=== PATIENT | female | born 1980 | race Caucasian/White ===

== ENCOUNTER 2023-01-20 13:35 | Emergency (ER) | payer OTHER, SELFPAY ==
--- NOTE | 2023-01-20 | XR_ITS ---
The [address] [address] Patient Name: ESCOBAR NASH MRN: [id number] date: 1980 Sex: F Assigned Patient Location: ER Current Patient Location: ED.MAIN Accession/Order Number: [id number] Exam Date: 01/20/2023 14:22 Report Date: 01/20/2023 14:58 At the request of: BRUCE ALEXANDRA Procedure: XR shoulder RT min 2V PROCEDURE: XR shoulder RT min 2V HISTORY: right shoulder pain ; no known injury COMPARISON: None. FINDINGS: BONES:No fracture, acute abnormality, or significant arthropathy. SOFT TISSUES:No visible soft tissue swelling. EFFUSION:None visible. OTHER: Negative. IMPRESSION: 1. No acute bone abnormality or significant degenerative joint disease. Electronically authenticated by: JEANNE SKINNER Date: 01/20/2023 14:58
[2023-01-20 13:41] VITALS: BP 190/82; PULSE 76; RESP 18; TEMP 36.7; O2SAT 100; BMI 28.0
--- NOTE | 2023-01-20 13:56 | ED.UPPEXIN1 ---
Documented by User: MERLE Astudillo 01/20/23 15:00 HPI - Extremity Injury (Upper) General Chief Complaint: Extremity Injury, Upper Stated Complaint: UPPER EXTREMITY PAIN RIGHT SHOULDER Time Seen by Provider: 01/20/23 13:50 Source: patient Mode of arrival: walk-in Limitations: no limitations History of Present Illness HPI narrative: Patient is a 43-year-old female who presents to the emergency department for the evaluation of right shoulder pain for over a month. Patient denies any mechanism of injury or trauma. She reports pain in the right posterior shoulder with radiation to the right arm. She has had no numbness or tingling. Pain is worse when she is up and walking. She is not concerned for . She took ibuprofen this morning without improvement. She states she has a doctor's appointment tomorrow but the shoulder was too bothersome today to be able to make that appointment. Related Data Previous Rx's Medication Instructions Recorded methocarbamol 750 mg tablet 750 mg PO TID #20 tabs 01/20/23 methylprednisolone 4 mg tablets in 4 mg PO DAILY #21 ea 01/20/23 a dose pack (Medrol (Paul)) naproxen sodium 550 mg tablet 550 mg PO BID PRN pain #10 tabs 01/20/23 Allergies Allergy/AdvReac Type Severity Reaction Status Date / Time penicillin G AdvReac Intermediate Verified 01/20/23 13:41 Review of Systems ROS Constitutional Denies: fever or chills Ears, nose, mouth, and throat Denies: neck pain Cardiovascular Denies: chest pain Respiratory Denies: shortness of breath or cough Gastrointestinal Denies: nausea or vomiting Musculoskeletal Denies: back pain or neck pain Integumentary/Breast Denies: rash Exam Narrative Exam Narrative: Gen.: Awake, alert, in no distress Head: Normocephalic, atraumatic ENT: Moist mucous membranes Respiratory: No respiratory distress Extremities: Moves extremities equally, no injuries noted. Minimal tenderness over the right scapula, pain with movement of the right arm. Normal electrical calibrator strength in the right hand. Normal biceps tendon strength of the right elbow with no bony point tenderness of the right shoulder, right elbow or forearm. Psych: Normal mood and affect Neuro: No focal neuro deficit Skin: Warm, dry, intact Constitutional Vital Signs - 24 hr 01/20/23 13:41 Temperature 98.1 F Pulse Rate [Monitor] 76 Respiratory Rate 18 Blood Pressure [Left Arm] 190/82 H Pulse Oximetry 100 Oxygen Delivery Method Room Air Course Vital Signs Vital signs: Vital Signs Temperature 98.1 F 01/20/23 13:41 Pulse Rate 76 01/20/23 13:41 Respiratory Rate 18 01/20/23 13:41 Blood Pressure 190/82 H 01/20/23 13:41 Pulse Oximetry 100 01/20/23 13:41 Oxygen Delivery Method Room Air 01/20/23 13:41 Temperature 98.1 F 01/20/23 13:41 Pulse Rate 76 01/20/23 13:41 Respiratory Rate 18 01/20/23 13:41 Blood Pressure 190/82 H 01/20/23 13:41 Pulse Oximetry 100 01/20/23 13:41 Oxygen Delivery Method Room Air 01/20/23 13:41 MDM - Extremity Injury (Upper) MDM Narrative Medical decision making narrative: X-rays of the right shoulder are unremarkable, exam and history are consistent with muscle strain over the rotator cuff versus glenohumeral joint. Patient will be treated with Medrol Dosepak, NSAIDs and muscle relaxants for home. She is encouraged to keep her appointment tomorrow with her physician as scheduled for further testing is indicated. Rest, ice, gentle stretching. Return to the Emergency Room if symptoms change or worsen Medical Records Attestation: I reviewed the patient's medical records. Imaging Data X-ray shoulder: Attestation: I personally reviewed and interpreted this imaging study as follows: (Three view right shoulder: No fracture, dislocation, soft tissue abnormality. Imaging reviewed by attending physician) Discharge Plan Discharge Chief Complaint: Extremity Injury, Upper Clinical Impression: Acute shoulder pain Patient Disposition: Home, Self-Care Time of Disposition Decision: 14:55 Condition: Good Prescriptions / Home Meds: New methylprednisolone [Medrol (Paul)] 4 mg tablets,dose pack 4 mg PO DAILY Qty: 21 0RF methocarbamol 750 mg tablet 750 mg PO TID Qty: 20 0RF naproxen sodium 550 mg tablet 550 mg PO BID PRN (Reason: pain) Qty: 10 0RF Instructions: Shoulder Pain (ED) Stand Alone Forms: Portal Instructions Referrals: Gentry Wolf MD [Primary Care Provider] - 01/21/23 (As scheduled) Discharge Date/Time: 01/20/23 15:04 Documented by User: Nicholas May 01/20/23 15:18 HPI - Extremity Injury (Upper) General Chief Complaint: Extremity Injury, Upper Stated Complaint: UPPER EXTREMITY PAIN RIGHT SHOULDER Time Seen by Provider: 01/20/23 13:50 Related Data Previous Rx's Medication Instructions Recorded methocarbamol 750 mg tablet 750 mg PO TID #20 tabs 01/20/23 methylprednisolone 4 mg tablets in 4 mg PO DAILY #21 ea 01/20/23 a dose pack (Medrol (Paul)) naproxen sodium 550 mg tablet 550 mg PO BID PRN pain #10 tabs 01/20/23 Allergies Allergy/AdvReac Type Severity Reaction Status Date / Time penicillin G AdvReac Intermediate Verified 01/20/23 13:41 Exam Constitutional Vital Signs - 24 hr 01/20/23 13:41 Temperature 98.1 F Pulse Rate [Monitor] 76 Respiratory Rate 18 Blood Pressure [Left Arm] 190/82 H Pulse Oximetry 100 Oxygen Delivery Method Room Air Course Vital Signs Vital signs: Vital Signs Temperature 98.1 F 01/20/23 13:41 Pulse Rate 76 01/20/23 13:41 Respiratory Rate 18 01/20/23 13:41 Blood Pressure 190/82 H 01/20/23 13:41 Pulse Oximetry 100 01/20/23 13:41 Oxygen Delivery Method Room Air 01/20/23 13:41 Temperature 98.1 F 01/20/23 13:41 Pulse Rate 76 01/20/23 13:41 Respiratory Rate 18 01/20/23 13:41 Blood Pressure 190/82 H 01/20/23 13:41 Pulse Oximetry 100 01/20/23 13:41 Oxygen Delivery Method Room Air 01/20/23 13:41 MDM - Extremity Injury (Upper) MDM Narrative Medical decision making narrative: X-rays of the right shoulder are unremarkable, exam and history are consistent with muscle strain over the rotator cuff versus glenohumeral joint. Patient will be treated with Medrol Dosepak, NSAIDs and muscle relaxants for home. She is encouraged to keep her appointment tomorrow with her physician as scheduled for further testing is indicated. Rest, ice, gentle stretching. Return to the Emergency Room if symptoms change or worsen For this patient encounter I reviewed the mid-level provider?s documentation, medical decision-making and treatment plan, and I personally spent time with this patient. Shared APC visit, physician attestation: [id number]: The visit was performed by both a physician and an APC. I performed all aspects of MDM as documented. - Mireille, DO Discharge Plan Discharge Chief Complaint: Extremity Injury, Upper Clinical Impression: Acute shoulder pain Patient Disposition: Home, Self-Care Time of Disposition Decision: 14:55 Condition: Good Prescriptions / Home Meds: New methylprednisolone [Medrol (Paul)] 4 mg tablets,dose pack 4 mg PO DAILY Qty: 21 0RF methocarbamol 750 mg tablet 750 mg PO TID Qty: 20 0RF naproxen sodium 550 mg tablet 550 mg PO BID PRN (Reason: pain) Qty: 10 0RF Instructions: Shoulder Pain (ED) Stand Alone Forms: Portal Instructions Referrals: Gentry Wolf MD [Primary Care Provider] - 01/21/23 (As scheduled) Discharge Date/Time: 01/20/23 15:04
[2023-01-20] MEDS: KETOROLAC TROMETHAMINE 60 MG/2 ML VIAL IM (14:12)
[2023-01-20] MEDS: METHYLPREDNISOLONE SOD SUCC PF 125 MG/2 ML VIAL IM (14:12)
== END 2023-01-20 15:04 | disposition home or self-care (01) ==
PROVIDERS: Emergency Provider Emergency Medicine; PCP Family Medicine
DX: M25.511 Pain in right shoulder (principal)
CPT/HCPCS: 73030; 96372; 99284; J2930

== ENCOUNTER 2023-05-01 17:36 | Emergency (ER) | payer OTHER, SELFPAY ==
[2023-05-01 17:40] VITALS: BP 168/116; PULSE 109; RESP 28; TEMP 36.8; O2SAT 100; BMI 29.7
[2023-05-01 17:53] VITALS: O2SAT 100
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
[2023-05-01] MEDS: HYDROXYZINE PAMOATE 25 MG CAPSULE PO (18:06)
== END 2023-05-01 18:27 | disposition home or self-care (01) ==
PROVIDERS: Emergency Provider Emergency Medicine; PCP Family Medicine
DX: F41.0 Panic disorder [episodic paroxysmal anxiety] (principal); F41.9 Anxiety disorder, unspecified
CPT/HCPCS: 99283

== ENCOUNTER 2023-05-25 12:51 | Emergency (ER) | payer OTHER, SELFPAY ==
[2023-05-25 12:57] VITALS: BP 160/95; PULSE 98; RESP 16; TEMP 37; O2SAT 97; BMI 30.3
--- NOTE | 2023-05-25 13:06 | CT_ITS ---
The [place] [id number] Patient Name: ESCOBAR NASH MRN: [id number] date: 1980 Sex: F Assigned Patient Location: ED.MAIN Current Patient Location: ED.MAIN Accession/Order Number: [id number] Exam Date: 05/25/2023 13:12 Report Date: 05/25/2023 13:58 At the request of: BRUCE ALEXANDRA Procedure: CT lumbar spine wo con EXAMINATION: CT lumbar spine wo con HISTORY: lumbar radiculopathy, paresthesia ; bilateral foot tingling and numbness for one month COMPARISON: CT abdomen pelvis 12/10/2021 TECHNIQUE: Axial, Coronal, and Sagittal images were created without IV contrast. Dose reduction techniques were achieved by using automated exposure control and/or adjustment of mA and/or kV according to patient size and/or use of iterative reconstruction technique. FINDINGS: VERTEBRAL BODIES: No fracture, pars defect, or osseous lesion. FACET JOINTS: No disruption or abnormal widening. DISCS: Marked narrowing L5-S1 with large posterior disc-osteophyte complex causing moderate central canal narrowing and bilateral foramen narrowing, marked on left and moderate on right. CENTRAL CANAL: No evidence of hemorrhage. PARASPINAL AREA: No visible mass. CT/CT lumbar spine wo con IMPRESSION: 1. No appreciable acute abnormality. 2. L5-S1 marked degenerative disc disease resulting in central canal and foraminal stenosis. Consider MRI for further evaluation. Electronically authenticated by: JEANNE SKINNER Date: 05/25/2023 13:58
--- NOTE | 2023-05-25 13:06 | ED.GENADUL1 ---
HPI - General Adult General Chief complaint: Extremity Problem, Nontraumatic Stated complaint: NUMBNESS TO BOTH FEET Time Seen by Provider: 05/25/23 12:53 Source: patient Mode of arrival: walk-in Limitations: no limitations History of Present Illness HPI narrative: patient is a 43-year-old female the history of diabetes who presents to the emergency department for a one month history of tingling in the feet. She states she is up on her feet throughout the day at work. She states yesterday she had a call off work because she could not put her shoes on. Her feet have not been swollen or red. She denies any injuries or traumas, no low back pain. She is not concerned for . She states that she told her doctor about the numbness and tingling and he told her to call back if it got worse, she has not done so. Related Data Home Medications Medication Instructions Recorded Confirmed aspirin 81 mg tablet,delayed 81 mg PO DAILY 05/25/23 05/25/23 release atorvastatin 80 mg tablet 80 mg PO DAILY 05/25/23 05/25/23 ticagrelor 90 mg tablet (Brilinta) 90 mg PO BID 05/25/23 05/25/23 Previous Rx's Medication Instructions Recorded methocarbamol 750 mg tablet 750 mg PO TID #20 tabs 01/20/23 hydroxyzine HCl 25 mg tablet 25 mg PO BID PRN anxiety #20 tabs 05/01/23 pregabalin 50 mg capsule (Lyrica) 50 mg PO Q8H 7 days #21 caps 05/25/23 Allergies Allergy/AdvReac Type Severity Reaction Status Date / Time penicillin G AdvReac Intermediate Verified 01/20/23 13:41 Review of Systems ROS Constitutional Denies: fever or chills Cardiovascular Denies: chest pain Respiratory Denies: shortness of breath or cough Gastrointestinal Denies: nausea or vomiting Musculoskeletal Denies: back pain, neck pain or extremity pain Integumentary/Breast Denies: rash Neurological Denies: headache Endocrine Denies: excessive urination PFSH PFSH Social History Smoking status: Never smoker Exam Narrative Exam Narrative: Gen.: Awake, alert, in no distress Head: Normocephalic, atraumatic ENT: Moist mucous membranes Respiratory: No respiratory distress Back: no bony tenderness of the T-spine or L-spine, no obvious deformity or step-off Extremities: Moves extremities equally, normal dorsiflexion and plantarflexion of the bilateral lower extremities. 2+ DP pulses bilaterally. No swelling, erythema or wounds noted of the feet Psych: Normal mood and affect Neuro: No focal neuro deficit Skin: Warm, dry, intact Constitutional Vital Signs, click to edit/add: Last Vital Signs Temp 98.6 F 05/25/23 12:57 Pulse 98 H 05/25/23 12:57 Resp 16 05/25/23 12:57 BP 160/95 H 05/25/23 12:57 Pulse Ox 97 05/25/23 12:57 O2 Del Method Room Air 05/25/23 12:57 Course Vital Signs Vital signs: Vital Signs Temperature 98.6 F 05/25/23 12:57 Pulse Rate 98 H 05/25/23 12:57 Respiratory Rate 16 05/25/23 12:57 Blood Pressure 160/95 H 05/25/23 12:57 Pulse Oximetry 97 05/25/23 12:57 Oxygen Delivery Method Room Air 05/25/23 12:57 Temperature 98.6 F 05/25/23 12:57 Pulse Rate 98 H 05/25/23 12:57 Respiratory Rate 16 05/25/23 12:57 Blood Pressure 160/95 H 05/25/23 12:57 Pulse Oximetry 97 05/25/23 12:57 Oxygen Delivery Method Room Air 05/25/23 12:57 Medical Decision Making MDM Narrative Medical decision making narrative: CT of the lumbar spine performed due to bilateral foot numbness and tingling to rule out acute process, CT shows L5/S1 central canal stenosis but no other acute process. Patient is neurovascularly intact, no focal neuro deficits in the Emergency Room. Exam is consistent with diabetic peripheral neuropathy. She'll be started on Lyrica to follow-up with her PCP and return to the Emergency Room if symptoms change or worsen Medical Records Medical records reviewed: Yes I reviewed the patient's medical records Imaging Data CT lumbar: Attestation: I have reviewed the pertinent imaging results. Radiologist's impression: Procedure: CT lumbar spine wo con EXAMINATION: CT lumbar spine wo con HISTORY: lumbar radiculopathy, paresthesia ; bilateral foot tingling and numbness for one month COMPARISON: CT abdomen pelvis 12/10/2021 TECHNIQUE: Axial, Coronal, and Sagittal images were created without IV contrast. Dose reduction techniques were achieved by using automated exposure control and/or adjustment of mA and/or kV according to patient size and/or use of iterative reconstruction technique. FINDINGS: VERTEBRAL BODIES: No fracture, pars defect, or osseous lesion. FACET JOINTS: No disruption or abnormal widening. DISCS: Marked narrowing L5-S1 with large posterior disc-osteophyte complex causing moderate central canal narrowing and bilateral foramen narrowing, marked on left and moderate on right. CENTRAL CANAL: No evidence of hemorrhage. PARASPINAL AREA: No visible mass. IMPRESSION: 1. No appreciable acute abnormality. 2. L5-S1 marked degenerative disc disease resulting in central canal and foraminal stenosis. Consider MRI for further evaluation. Electronically authenticated by: JEANNE SKINNER Date: 05/25/2023 13:58 Discharge Plan Discharge Chief Complaint: Extremity Problem, Nontraumatic Clinical Impression: Peripheral neuropathy Patient Disposition: Home, Self-Care Time of Disposition Decision: 14:22 Condition: Good Prescriptions / Home Meds: New pregabalin [Lyrica] 50 mg capsule 50 mg PO Q8H 7 Days Qty: 21 0RF No Action methocarbamol 750 mg tablet 750 mg PO TID Qty: 20 0RF hydroxyzine HCl 25 mg tablet 25 mg PO BID PRN (Reason: anxiety) Qty: 20 0RF Brilinta 90 mg tablet 90 mg PO BID atorvastatin 80 mg tablet 80 mg PO DAILY aspirin 81 mg tablet,delayed release (DR/EC) 81 mg PO DAILY Instructions: Peripheral Neuropathy (ED) Stand Alone Forms: Portal Instructions Referrals: Gentry Wolf MD [Primary Care Provider] - 1 week Discharge Date/Time: 05/25/23 14:30
== END 2023-05-25 14:30 | disposition home or self-care (01) ==
PROVIDERS: Emergency Provider Emergency Medicine; PCP Family Medicine
DX: E11.42 Type 2 diabetes mellitus with diabetic polyneuropathy (principal); Z79.82 Long term (current) use of aspirin; Z79.899 Other long term (current) drug therapy
CPT/HCPCS: 72131; 99284

== ENCOUNTER 2023-08-09 17:39 | Emergency (ER) | payer OTHER, SELFPAY ==
[2023-08-09] VITALS (31 sets, daily range): BP systolic 133–163; BP diastolic 83–94; PULSE 67–99; RESP 12–24; TEMP 36.8; O2SAT 96–100; BMI 29.6
--- OUTSIDE RECORDS SUMMARY | 2023-08-09 17:52 | XMS_ITS | CCD ---
Author Name Unknown Address [address] [place] [address] Organization [facility] Care Team Providers Care Regulatory Compliance Director Name Role Phone DR GENTRY WOLF Consulting Unavailable LORENA, DR EDMOND Primary Care Unavailable LORENA, DR EDMOND Attending Unavailable LORENA, DR EDMOND Admitting Unavailable MIKEY DAMICO Consulting Unavailable LORENA, DR EDMOND Primary Care Unavailable MIKEY DAMICO Attending Unavailable MIKEY DAMICO Admitting Unavailable GILL, DR BARNES Consulting Unavailable LORENA, DR EDMOND Primary Care Unavailable GILL, DR BARNES Attending Unavailable GILL, DR BARNES Admitting Unavailable ESTUARDO, DR BRI Beck Consulting Unavailable BARON, DR PALMA Attending Unavailable BARON, DR PALMA Admitting Unavailable LORENA, DR EDMOND Primary Care Unavailable BARON, DR PALMA Consulting Unavailable LUTHER NGUYEN Consulting Unavailable LUTHER NGUYEN Attending Unavailable LUTHER NGUYEN Admitting Unavailable LORENA, DR EDMOND Primary Care Unavailable LORENA, DR EDMOND Consulting Unavailable LORENA, DR EDMOND Primary Care Unavailable LORENA, DR EDMOND Attending Unavailable LORENA, DR EDMOND Admitting Unavailable LORENA, DR EDMOND Consulting Unavailable LORENA, DR EDMOND Attending Unavailable LORENA, DR EDMOND Admitting Unavailable LORENA, DR EDMOND Primary Care Unavailable ADRIANNE, DR MATTHEW Escobar Consulting Unavailable DELORIS, DR NELSON Olvera Consulting Unavailable REBECA HOLLIS Consulting Unavailable MARIAELENA BROWN Consulting Unavailable LORENA, DR EDMOND Consulting Unavailable LORENA, DR EDMOND Attending Unavailable LORENA, DR EDMOND Admitting Unavailable LORENA, DR EDMOND Primary Care Unavailable ADRIANNE, DR MATTHEW Escobar Consulting Unavailable MERLE ALEXANDRA Consulting Unavailable LUTHER NGUYEN Consulting Unavailable GILLDR MOLLY Lind Consulting Unavailable DR GENTRY WOLF Primary Care Unavailable DR MOLLY GARLAND Attending Unavailable DR MOLLY GARLAND Admitting Unavailable Gentry Wolf Primary Care Physician [phone] Abhishek Monterroso Consulting UnavailEllie Aranda Attending Unavailable Ellie ALMONTE Admitting Unavailable Abhishek Monterroso Consulting Abhishek Cox Consulting Unavaila Pako Briceño Attending Unavailable FELIPA ROGERS Attending Unavailable Allergies Allergy Classification Reported Allergen(s) Allergy Type Date of Onset Reaction(s) Facility (1 source) Penicillin Drug Allergy 08-02-1979 [facility] Repository (3 sources) Penicillins; Translations: [penicillins] Drug allergy 05-26-2019 [facility] Medications Current Medications Medication Drug Class(es) Dates Sig (Normalized) Sig (Original) aspirin 81 mg delayed release oral tablet (1 source) Platelet Aggregation Inhibitor, Nonsteroidal Anti-inflammatory Drug Start: 01-23-2023 take 1 tablet by mouth once daily aspirin 81 mg Oral EC Tab 81 mg = 1 tab(s), Oral, Daily, # 30 tab(s), Refills(s) 1, Pharmacy: [facility] #[id number], 165, cm, 01/21/23 16:25:00 EDT, Height/Length Dosing, 83, kg, 01/21/23 16:25:00 EDT, Weight Dosing Start Date: 01/23/23 Status: Ordered atorvastatin 80 mg oral tablet (1 source) HMG-CoA Reductase Inhibitor Start: 01-23-2023 take 1 tablet by mouth once daily Lipitor 80 mg Tab 80 mg = 1 tab(s), Oral, Daily, # 30 tab(s), Refills(s) 1, Pharmacy: [facility] #[id number], 165, cm, 01/21/23 16:25:00 EDT, Height/Length Dosing, 83, kg, 01/21/23 16:25:00 EDT, Weight Dosing Start Date: 01/23/23 Status: Ordered cetirizine hydrochloride 10 mg oral tablet (1 source) Histamine-1 Receptor Antagonist Start: 03-23-2022 take 1 tablet by mouth once daily cetirizine 10 mg Tab 10 mg = 1 tab(s), Oral, Daily, Refills(s) 0 Start Date: 03/23/22 Status: Ordered citalopram 20 mg oral tablet (1 source) Serotonin Reuptake Inhibitor Start: 06-05-2022 take 1 tablet by mouth once daily citalopram 20 mg Tab 20 mg = 1 tab(s), Oral, Daily, Refills(s) 0 Start Date: 06/05/22 Status: Ordered fluticasone furoate 0.05 MG/ACTUAT Dry Powder Inhaler (1 source) Corticosteroid Start: 03-24-2022 take 1 puff(s) by inhalation twice daily fluticasone furoate 50 mcg inhalation powder = 1 puff(s), Inhalation, BID, Refills(s) 0 Start Date: 03/24/22 Status: Ordered glimepiride 4 mg oral tablet (1 source) Sulfonylurea Start: 03-23-2022 take 1 tablet by mouth once daily glimepiride 4 mg Tab 4 mg = 1 tab(s), Oral, Daily, Refills(s) 0 Start Date: 03/23/22 Status: Ordered ibuprofen 800 mg oral tablet (1 source) Nonsteroidal Anti-inflammatory Drug Start: 10-19-2022 take 1 tablet by mouth four times daily as needed for pain ibuprofen 800 mg Tab 800 mg = 1 tab(s), Oral, QID, PRN as needed for pain, Refills(s) 0 Start Date: 10/19/22 Status: Ordered Lantus (1 source) Insulin Analog Start: 10-19-2022 inject 20 [IU] by subcutaneous injection once daily at bedtime Lantus insulin 20 unit(s), SubCutaneous, Once a day (at bedtime), Refills(s) 0 Start Date: 10/19/22 Status: Ordered metFORMIN hydrochloride 500 mg oral tablet (1 source) Biguanide Start: 03-23-2022 take 1 tablet by mouth twice daily metformin 500 mg Tab 500 mg = 1 tab(s), Oral, BID, Refills(s) 0 Start Date: 03/23/22 Status: Ordered nitroglycerin 0.4 mg sublingual tablet (1 source) Nitrate Vasodilator Start: 01-23-2023 nitroglycerin 0.4 mg sublingual Tab 0.4 mg = 1 tab(s), SubLingual, q5min, PRN Chest pain, not to exceed 3 doses/15 min--if pain persists, seek medical attention, # 100 tab(s), Refills(s) 0, Pharmacy: [facility] #[id number], 165, cm, 01/21/23 16:25:00 EDT, Height/Length Dosing, 83, kg, 01/21/23... Start Date: 01/23/23 Status: Ordered ticagrelor 90 mg oral tablet (1 source) Start: 01-23-2023 take 1 tablet by mouth twice daily Brilinta (ticagrelor) 90 mg oral tablet 90 mg = 1 tab(s), Oral, BID, # 60 tab(s), Refills(s) 1, Pharmacy: [facility] #[id number], 165, cm, 01/21/23 16:25:00 EDT, Height/Length Dosing, 83, kg, 01/21/23 16:25:00 EDT, Weight Dosing Start Date: 01/23/23 Status: Ordered Completed/Discontinued Medications Medication Drug Class(es) Dates Sig (Normalized) Sig (Original) Acetaminophen / HYDROcodone (1 source) Opioid Agonist Start: 11-17-2011 Vicodin 500mg-5mg Tab 1 tab(s), Oral, q4hr PRN for pain, 15 tab(s), Refill(s) 0, 0, Print Requisition Start Date: 11/17/11 Status: Ordered Insulin Lispro (2 sources) Insulin Analog Start: 01-23-2023 End: 01-23-2023 Insulin Lispro Sliding Scale 0-10 Units, Injection-Insulin, SubCutaneous, Start date 01/23/23 7:30:00 EDT Start Date: 01/23/23 Stop Date: 01/23/23 Status: Completed Start: 01-22-2023 End: 01-22-2023 Insulin Lispro Sliding Scale 0-10 Units, Injection-Insulin, SubCutaneous, Start date 01/22/23 7:30:00 EDT Start Date: 01/22/23 Stop Date: 01/22/23 Status: Completed lisinopril 10 mg oral tablet (2 sources) Angiotensin Converting Enzyme Inhibitor Start: 01-23-2023 End: 01-23-2023 lisinopril 10 mg Tab 10 mg = 1 tab(s), Tab, Oral, Start date 01/23/23 9:00:00 EDT, 01/21/23 19:11:00 EDT Start Date: 01/23/23 Stop Date: 01/23/23 Status: Completed Start: 01-05-2022 take 1 tablet by leoncio th once daily lisinopril 20 mg Tab 20 mg = 1 tab(s), Oral, Daily, Refills(s) 0 Start Date: 01/05/22 Status: Ordered metoprolol tartrate 25 mg oral tablet (4 sources) beta-Adrenergic Alicia Start: 01-23-2023 End: 01-23-2023 Metoprolol tartrate 25 mg Tab 25 mg = 1 tab(s), Tab, Oral, Start date 01/23/23 9:00:00 EDT, 01/22/23 11:30:00 EDT Start Date: 01/23/23 Stop Date: 01/23/23 Status: Completed Start: 01-22-2023 End: 01-22-2023 Metoprolol tartrate 25 mg Ta b 25 mg = 1 tab(s), Tab, Oral, Start date 01/22/23 21:00:00 EDT, 01/22/23 11:30:00 EDT Start Date: 01/22/23 Stop Date: 01/22/23 Status: Completed Problems Active Problems Problem Classification Problem Date Documented Date Episodic/Chronic Acute myocardial infarction (1 source) Non-ST elevation (NSTEMI) myocardial infarction; Translations: [Non-ST elevation (NSTEMI) myocardial infarction] Onset: 01-22-2023 Chronic Coronary atherosclerosis and other heart disease (1 source) Coronary atherosclerosis; Translations: [Atherosclerotic heart disease of [place] coronary artery without angina pectoris] Onset: 01-23-2023 Chronic Diabetes mellitus with complications (1 source) Type 2 diabetes mellitus with hyperglycemia; Translations: [TYPE 2 DM W/HYPERGLYCEMIA] Onset: 02-19-2022 Chronic Diabetes mellitus without complication (2 sources) Type 2 diabetes mellitus without complications; Translations: [Type 2 diabetes mellitus without complication] Onset: 01-07-2022 Chronic Diabetes mellitus without complication (1 source) Hyperglycemia; Translations: [Hyperglycemia, unspecified] Onset: 01-21-2023 Episodic Diseases of white blood cells (1 source) Leukocytosis; Translations: [Elevated white blood cell count, unspecified] Onset: 01-21-2023 Chronic Essential hypertension (2 sources) Essential (primary) hypertension; Translations: [Essential hypertension] Onset: 02-19-2022 Chronic Fluid and electrolyte disorders (4 sources) Dehydration; Translations: [Hypo-osmolality and hyponatremia] Onset: 12-17-2021 Episodic Hypertension with complications and secondary hypertension (1 source) Hypertensive urgency ; Translations: [Hypertensive urgency] Onset: 01-21-2023 Chronic Immunizations and screening for infectious disease (5 sources) Encounter for screening for human papillomavirus (HPV); Translations: [Encounter for screening for infections with a predominantly sexual mode of transmission] Onset: 04-15-2022 Episodic Mood disorders (1 source) Major depressive disorder, single episode, unspecified; Translations: [KATHIE DEPRESS D/O SINGLE EPIS UNS] Onset: 02-19-2022 Chronic Nonspecific chest pain (1 source) Chest pain; Translations: [Chest pain, unspecified] Onset: 01-21-2023 Episodic Other aftercare (1 source) Long-term current use of drug therapy; Translations: [Other halfway (current) drug therapy] Onset: 01-21-2023 Episodic Other female genital disorders (1 source) Other specified noninflammatory disorders of vagina; Translations: [OTH SPEC NONINFLAMMATORY D/O VAGINA] Onset: 04-18-2022 Episodic Other hematologic conditions (1 source) Abnormal finding on evaluation procedure; Translations: [Other specified abnormalities of plasma proteins] Onset: 01-21-2023 Episodic Other non-traumatic joint disorders (1 source) Pain of right shoulder joint; Translations: [Pain in right shoulder] Onset: 01-21-2023 Episodic Other nutritional; endocrine; and metabolic disorders (1 source) Obesity; Translations: [Obesity, unspecified] Onset: 01-21-2023 Chronic Other screening for suspected conditions (not mental disorders or infectious disease) (4 sources) Encounter for screening for malignant neoplasm of cervix; Translations: [ENC SCREENING MALIG NEOPLASM CERV] Onset: 06-15-2022 Episodic Unclassified (4 sources) CONTACT W/AND (SUSP) EXPOS COVID-19; Translations: [CONTACT W/AND (SUSP) EXPOS COVID-19] Onset: 02-19-2022 Past or Other Problems Problem Classification Problem Date Documented Da te Episodic/Chronic Cardiac dysrhythmias (1 source) Tachycardia, unspecified; Translations: [TACHYCARDIA UNSPECIFIED] Onset: 02-19-2022 Episodic Genitourinary symptoms and ill-defined conditions (1 source) Personal history of urinary (tract) infections; Translations: [PERS HX URINARY TRACT INFECTIONS] Onset: 02-19-2022 Episodic Nausea and vomiting (7 sources) Vomiting, unspecified; Translations: [Nausea with vomiting, unspecified] Onset: 01-03-2022 Episodic Noninfectious gastroenteritis (1 source) Noninfective gastroenteritis and colitis, unspecified; Translations: [NONINFECTIVE GE AND COLITIS UNS] Onset: 02-19-2022 Episodic Other aftercare (1 source) Other halfway (current) drug therapy; Translations: [OTH CUSTODIAL CURRENT DRUG THERAPY] Onset: 02-19-2022 Episodic Other aftercare (1 source) [facility] (current) use of oral hypoglycemic drugs; Translations: [NET APPLICATION ARCHITECT USE ORAL HYPOGLYCEMIC DX] Onset: 02-19-2022 Episodic Other aftercare (1 source) channel marketing specialist (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; Translations: [CUSTODIAL CURRENT USE OF ASPIRIN] Onset: 12-09-2021 Episodic Other aftercare (1 source) channel marketing specialist (current) use of insulin; Translations: [NET APPLICATION ARCHITECT CURRENT USE OF INSULIN] Onset: 12-09-2021 Episodic Other gastrointestinal disorders (1 source) Heartburn; Translations: [HEARTBURN] Onset: 12-17-2021 Episodic Residual codes; unclassified (1 source) Acquired absence of other specified parts of digestive tract; Translations: [ACQ ABSENCE OTH PART DIGESTV TRACT] Onset: 02-19-2022 Episodic Unclassified (1 source) CONTACT W/AND (SUSP) EXPOS COVID-19; Translations: [CONTACT W/AND (SUSP) EXPOS COVID-19] Onset: 04-27-2022 Unclassified (1 source) gall blader removed 11-17-2011 Results Test Name Value Interpretation Reference Range Facility Office Visiton 02-05-2023 Follow-up visit [id number] Escobar Nash 1980 F Date Provider Department Center 02/05/2023 3848-FELIPA ROGERS [facility] Family History Problem Relation Age of Onset Diabetes Father Coronary artery disease Father Kidney disease Father Family Status - Relation Status Age at Father Level of Service:95641 LA OFFICE/OUTPATIENT NEW LOW MDM 30-44 MINUTES Normal [facility] Cardiovascular Reporton 01-01 Cardiovascular Report [id number]#1.00CD:127 Normal [facility] Consent for PICC lineon 01-01 Consent for PICC line [id number] 13#1.00CD:127 Normal [facility] Discharge Instructionson Discharge Instructions [id number] #1.00CD:127 Normal [facility] Pre-Certification Formon Pre-Certification Form [id number] 2#1.00CD:127 Normal [facility] BMPon 01-23-2023 Anion gap [Moles/Vol] 12 mmol/L Normal 6-16 [facility] Comment on above: Performed By: #### 2 892849, 7815070, [id number], [id number], 2877747, 0024181 #### [facility] [address] [place] [address] Calcium [Mass/Vol] 8.2 mg/dL Low 8.9-11.1 [facility] Comment on above: Performed By: #### 2 589473, 5663294, 36308113, [id number], 6412591, 2606473 #### [facility] [address] [place] [address] Chloride [Moles/Vol] 108 mmol/L Normal 101-111 [facility] Comment on above: Performed By: #### 2 660384, 5885238, 05545338, 372679707, 0632170, 0502370 #### [facility] [address] [place] [address] CO2 [Moles/Vol] 19 mmol/L Low 21-31 [facility] Comment on above: Performed By: #### 2 032165, 6297036, 33602291, 445134483, 0783626, 1460040 #### [facility] [address] [place] [address] Creatinine [Mass/Vol] 0.5 mg/dL Normal 0.5-1.3 [facility] Comment on above: Performed By: #### 2 361157, 3376494, 72598515, 107939276, 3387420, 9731068 #### [facility] [address] [place] [address] Glucose [Mass/Vol] 183 mg/dL Normal 55-199 [facility] Comment on above: Result Comment: If t his glucose result represents a fasting glucose, interpretation should refer to the following reference range: 55-99 mg/dL Performed By: #### 2 972543, 2875312, 17506035, 753934932, 4144599, 8300705 #### [facility] [address] [place] [address] Potassium [Moles/Vol] 3.8 mmol/L Normal 3.5-5.3 [facility] Comment on above: Performed By: #### 2 976313, 3415015, 87261749, 084676808, 2293881, 9599650 #### [facility] [address] [place] [address] Sodium [Moles/Vol] 135 mmol/L Normal 135-145 [facility] Comment on above: Performed By: #### 2 469264, 2111038, 61232228, 694247377, 4789423, 9052460 #### [facility] [address] [place] [address] Urea nitrogen [Mass/Vol] 11 mg/dL Normal 5-21 [facility] Comment on above: Performed By: #### 2 494393, 8234636, 28967791, 848130446, 8082865, 2050234 #### [facility] [address] [place] [address] Urea nitrogen/Creatinine [Mass ratio] 22 No Units High 10-20 [facility] Comment on above: Performed By: #### 2 714033, 4389578, 38655038, 958139481, 7415370, 7077489 #### [facility] [address] [place] [address] CBC w/Indiceson 01-23-2023 Erythrocyte distribution width (RBC) [Ratio] 14.2 % Normal 10.9-14.2 [facility] Comment on above: Performed By: #### 2 675343, 7740557, 60648685, 834259453, 4870222, 8409911 #### [facility] [address] [place] [address] Hematocrit (Bld) [Volume fraction] 38.3 % Normal 34.0-46.0 [facility] Comment on above: Performed By: #### 2 004409, 2241776, 08573551, 984202225, 0881033, 7937974 #### [facility] [address] [place] [address] Hemoglobin (Bld) [Mass/Vol] 13.3 g/dL Normal 12.0-16.0 [facility] Comment on above: Performed By: #### 2 818959, 5574008, 58433213, 466440757, 2099360, 8335306 #### [facility] [address] [place] [address] MCH (RBC) [Entitic mass] 28.9 pg Normal 27.0-34.0 [facility] Comment on above: Performed By: #### 2 101613, 9762260, 91529064, 004522794, 5381026, 3266901 #### [facility] [address] [place] [address] MCHC (RBC) [Mass/Vol] 34.8 g/dL Normal 31.4-36.0 [facility] Comment on above: Performed By: #### 2 382696, 6443203, 28039135, 915229705, 8188383, 0422969 #### [facility] [address] [place] [address] MCV (RBC) [Entitic vol] 83.1 fL Normal 80.0-100.0 [facility] Comment on above: Performed By: #### 2 001924, 8681128, 04902434, 790721370, 9294141, 1460042 #### [facility] [address] [place] [address] Platelet mean volume (Bld) [Entitic vol] 8.6 fL Normal 6.4-10.8 [facility] Comment on above: Performed By: #### 2 668351, 0995386, 98304167, 940136418, 7331059, 9255323 #### [facility] [address] [place] [address] Platelets (Bld) [#/Vol] 237.0 E9/L Normal 150.0-500.0 [facility] Comment on above: Performed By: #### 2 447146, 1947560, 23190521, 671864316, 7886383, 3581645 #### [facility] [address] [place] [address] RBC (Bld) [#/Vol] 4.6 E12/L Normal 4.3-5.9 [facility] Comment on above: Performed By: #### 2 350082, 4361294, 84709681, 718349991, 0612478, 2193360 #### [facility] [address] [place] [address] WBC corrected for nucl RBC Auto (Bld) [#/Vol] 9.5 E9/L Normal 4.0-11.0 [facility] Comment on above: Performed By: #### 2 827929, 7781143, 55594483, 991770214, 6931963, 0577840 #### [facility] [address] [place] [address] CHEMISTRYOrdered By: Lab ROP User on 01-23-2023 Glucose [Mass/Vol] 255 mg/dL High 55 - 99 mg/dL [facility] C POC Subsection Comment on above: Result Comment: Noti fied RN/MD POC Device SN [id number] Invalid Interpretation Code [facility] POC Subsection POC User ID [id number] Invalid Interpretation Code FT POC Subsection POC Username LESLY PARR Invalid Interpretation Code FT POC Subsection Glucose [Mass/Vol] 192 mg/dL High 55 - 99 mg/dL [facility] C POC Subsection Comment on above: Result Comment: Yari jennifer Meter POC Device SN [id number] Invalid Interpretation Code [facility] POC Subsection POC User ID [id number] Invalid Interpretation Code FT POC Subsection POC Username AIDEE DE LEÓN Invalid Interpretation Code FT POC Subsection CHEMISTRYOrdered By: SYSTEM SYSTEM on 01-23-2023 Anion gap [Moles/Vol] 12 mmol/L Normal 6 - 16 mEq/L [facility] Remisol Calcium [Mass/Vol] 8.2 mg/dL Low 8.9 - 11. 1 mg/dL [facility] Chloride [Moles/Vol] 108 mmol/L Normal 101 - 1 11 mmol/L [facility] CO2 [Moles/Vol] 19 mmol/L Low 21 - 31 mmol/L [facility] Creatinine [Mass/Vol] 0.5 mg/dL Normal 0.5 - 1.3 mg/dL [facility] GFR/1.73 sq M.predicted among non-blacks MDRD (S/P/Bld) [Vol rate/Area] 118 mL/min/1.73 m2 Normal >=59mL/min/1. 73 m2 [facility] Chem S Glucose [Mass/Vol] 183 mg/dL Normal 55 - 199 mg/dL [facility]isol Magnesium [Mass/Vol] 1.5 mg/dL Normal 1.3 - 2 .4 mg/dL [facility] Potassium [Moles/Vol] 3.8 mmol/L Normal 3.5 - 5.3 mmol/L [facility] Sodium [Moles/Vol] 135 mmol/L Normal 135 - 145 mmol/L [facility] Troponin I.cardiac [Mass/Vol] 1304.50 pg/mL Invalid Interpretation Code 10.10 - 27.10 pg/mL [facility] Comment on above: Result Comment: Crit ical Result verified by previous result\ Critical Result [id number] Called to MICHELE HERRMANN at 3S by HARDEEP HANSEN and read back for confirmation at 01/23/2023 07:42:43 Urea nitrogen [Mass/Vol] 11 mg/dL Normal 5 - 21 mg/dL [facility] Remisol Urea nitrogen/Creatinine [Mass ratio] 22 mg/mg High 10 - 20 [facility] Remisol Capillary Glucose POCon 01-01 Glucose [Mass/Vol] 255 mg/dL High 55-99 [facility] Comment on above: Result Comment: Marino paulson RN/ Performed By: #### 2 341999, 1642857, 92744822, 844316023, 3931857, 1145808 #### [facility] [address] [place] [address] Glucose [Mass/Vol] 192 mg/dL High 55-99 [facility] Comment on above: Result Comment: Yari jennifer Meter Performed By: #### 2 [id number] ####[facility] [address] [place] [address] Consultation Noteon 01-24-20 23 Consultation Note Chief Complaint chest pain radiating to arm and shoulder Reason for Consultation Elevated troponin History of Present Illness 43-year-old female with history of hypertension, hyperlipidemia, diabetes and family history of CAD. Presents with right shoulder pain has been several months but also associated chest pain and discomfort which feels like a tightness. It was exertional but also she had such at rest. Pain was associated with shortness of breath. Other than the right shoulder there was no radiation. She denies any orthopnea or nocturnal dyspnea. She denies any palpitation. Claudication. Review of Systems Constitutional: no fever, no sweats, no weakness Skin: no rash, no lesions, nobruising/petechiae ENMT: no sore throat, no congestion, no hoarseness Respiratory: Yes shortness of breath, no cough, no orthopnea, no wheezing Cardiovascular: Yes chest pain, no palpitations, no edema Gastrointestinal: no nausea, no vomiting, no diarrhea, no GI bleeding Genitourinary: no anuria/oliguria no hematuria Musculoskeletal: no back pain, no trauma Neurologic: no headache, no dizziness, no numbness, no weakness Psychiatric: no sleeping problems, no irritability, no anxiety/depression. Heme/Lymph: no bleeding tendency, no bruising tendency Allergy/Immunologic: no recurrent infections, no impaired immunity Additional ROS info: Except as noted in the above Review of Systems and in the History of Present Illness all other systems have been reviewed and are negative or noncontributory. Physical Exam Vitals & Measurements T: 36.5 ?C(Oral) TMIN: 36.5 ?C(Oral) TMAX: 36.7 ?C(Oral) HR: 94(Apical) RR: 18 BP: 157/83 SpO2: 99% WT: 83.7 kg General: alert, no acute distress Skin: warm, dry intact Head: atraumatic, normocephalic Neck: Trachea midline, no JVD, no bruit Eye: normal conjunctiva, sclera clear ENMT: oral mucosa moist Cardiovascular: regular rate and rhythm, nomurmur normal peripheral perfusion Respiratory: Lungs CTA, respirations non labored Chest wall: no deformity. Gastrointestinal: soft, non distended, no tenderness, no guarding. Back: No tenderness, Normal ROM, Normal alignment. Extremities: no edema, no deformity, no trauma Neurological: oriented x 4, LOC appropriate for agesensation equal & normal bilaterally, speech normal Psychiatric: cooperative, affect appropriate for age, normal judgement, normal psychiatric thoughts. Images EKG: Normal sinus rhythm no ischemia Assessment/Plan 43-year-old female with non-STEMI. Significant risk factors. Suspect epicardial CAD. Recommend heart catheterization which we will do today urgently. Risks, benefits, alternatives, and personnel were discussed at length and the patient agrees to proceed. Additional time was devoted to reviewing Covid risk as well as lack of surgical backup (level 2). The patient is aware of these risks. 1. Chest pain (R07.9: Chest pain, unspecified) Ordered: ticagrelor, 90 mg = 1 tab(s), Tab, Oral, BID, Routine, Start date 01/23/23 9:00:00 EDT, 01/22/23 22:10:00 EDT 2. Elevated troponin (R77.8: Other specified abnormalities of plasma proteins) Ordered: ticagrelor, 90 mg = 1 tab(s), Tab, Oral, BID, Routine, Start date 01/23/23 9:00:00 EDT, 01/22/23 22:10:00 EDT 3. NSTEMI (non-ST elevation myocardial infarction) (I21.4: Non-ST elevation (NSTEMI) myocardial infarction) Ordered: ticagrelor, 90 mg = 1 tab(s), Tab, Oral, BID, Routine, Start date 01/23/23 9:00:00 EDT, 01/22/23 22:10:00 EDT 4. Hypertensive urgency (I16.0: Hypertensive urgency) Ordered: ticagrelor, 90 mg = 1 tab(s), Tab, Oral, BID, Routine, Start date 01/23/23 9:00:00 EDT, 01/22/23 22:10:00 EDT 5. Right shoulder pain (M25.511: Pain in right shoulder) Ordered: ticagrelor, 90 mg = 1 tab(s), Tab, Oral, BID, Routine, Start date 01/23/23 9:00:00 EDT, 01/22/23 22:10:00 EDT 6. Leukocytosis (D72.829: Elevated white blood cell count, unspecified) 7. Hyperglycemia (R73.9: Hyperglycemia, unspecified) 8. Hyponatremia (E87.1: Hypo-osmolality and hyponatremia) 9. Metabolic acidosis (E87.20: Acidosis, unspecified) 10. HTN (hypertension) (I10: Essential (primary) hypertension) 11. Diabetes mellitus (E11.9: Type 2 diabetes mellitus without complications) 12. Obese (E66.9: Obesity, unspecified) 13. 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 Medications Inpatient acetaminophen 325 mg Tab, 650 mg= 2 tab(s), Oral, q6hr, PRN acetaminophen 325 mg Tab, 650 mg= 2 tab(s), Or (more content not included)... Normal [facility] Comment on above: Result Comment: Elec tronically Signed By: Kriss HAIDER, Abhishek Hagan\.br\Date and Time Signed: 01/22/23 22:12 EDT Discharge Note-Nursingon Discharge Note-Nursing Patient prescribed Brillinta for discharge. Her preferred pharmacy is [facility] which does not have Brillinta in stock until Wednesday. 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 Patient refuses to switch pharmacies. She states her sister will not take her to any other pharmacy to pick this up. Per Dr. Lawrence, ok to pull 4 Brillinta to send home with patient to have enough until she can orange picker machine operator the medication from her pharmacy. Normal [facility] HEMATOLOGYOrdered By: Cristin Ibarra on 01-23-2023 Erythrocyte distribution width (RBC) [Ratio] 14.2 % Normal 10.9 - 14.2 % [facility] Hematocrit (Bld) [Volume fraction] 38.3 % Normal 34.0 - 46.0 % [facility] Hemoglobin (Bld) [Mass/Vol] 13.3 g/dL Normal 12.0 - 16.0 gm/dL [facility] MCH (RBC) [Entitic mass] 28.9 pg Normal 27.0 - 34.0 pg [facility] MCHC (RBC) [Mass/Vol] 34.8 g/dL Normal 31.4 - 36.0 gm/dL [facility] MCV (RBC) [Entitic vol] 83.1 fL Normal 80.0 - 100.0 fL [facility] Platelet mean volume (Bld) [Entitic vol] 8.6 fL Normal 6.4 - 10.8 fL [facility] Platelets (Bld) [#/Vol] 237.0 E9/L Normal 150.0 - 500.0 E9/L [facility] RBC (Bld) [#/Vol] 4.6 E12/L Normal 4.3 - 5.9 E12/L [facility] WBC corrected for nucl RBC Auto (Bld) [#/Vol] 9.5 E9/L Normal 4.0 - 11.0 E9/L [facility] [facility] Inpatient Clinical Summaryon 01-23-2023 Inpatient Clinical Summary [address] [address] Clinical Summary Person Information: Name: ESCOBAR NASH Age: 43 Years : 1980 Sex: Female PCP: Gentry Wolf MD Marital Status: Phone: [phone] Race: White Ethnicity: Non- or Language: [place] Visit Id: Visit Reason: Chest pain; CHEST PAIN Speciality: Acuity: Enc Type: Observation Med Service: Medical Arrival: 01/21/2023 16:19:22 Discharge: Dispo Type: Admitted as IP to this Hosp Address: [address] [place] [address] [phone] Provider Notes: Diagnosis: 1:NSTEMI (non-ST elevation myocardial infarction); 2:Coronary artery disease; 3:Chest pain; 4:Elevated troponin; 5:Hypertensive urgency; 6:Right shoulder pain; 7:Leukocytosis; 8:Hyperglycemia; 9:Hyponatremia; 10:Metabolic acidosis; 11:HTN (hypertension); 12:Diabetes mellitus; 13:Obese; 14:On deep vein thrombosis (DVT) prophylaxis Problems No Problems Documented Smoking Status: Never Smoker Functional Status: Sensory Deficits: History of Falls: Mobility Assistance Prior to Admission: Independent ADLs: Independent Current Level of Assistance for Self-Care/Mobility: Cognitive Status: Oriented x 3 Allergies penicillins Measurements: Height: 165 cm Weight: 83.7 kg Blood Pressure: 155 mmHg / 95 mmHg BMI: 30.49 kg/m2 Procedures PCI - Percutaneous coronary intervention Immunizations No Immunizations Documented This Visit Final Med List: acetaminophen-hydroc odone (Vicodin 500mg-5mg Tab) 1 Tablets By Mouth every 4 hours as needed for pain. Refills: 0. aspirin (aspirin 81 mg Oral EC Tab) 1 Tablets By Mouth every day. Refills: 1. atorvastatin (Lipitor 80 mg Tab) 1 Tablets By Mouth every day. Refills: 1. cetirizine (cetirizine 10 mg Tab) 1 Tablets By Mouth every day. citalopram (citalopram 20 mg Tab) 1 Tablets By Mouth every day. fluticasone (fluticasone furoate 50 mcg inhalation powder) 1 Puffs Inhalation 2 times a day. glimepiride (glimepiride 4 mg Tab) 1 Tablets By Mouth every day. ibuprofen (ibuprofen 800 mg Tab) 1 Tablets By Mouth 4 times a day as needed as needed for pain. insulin glargine (Lantus insulin) 20 Units Subcutaneous once a day (at bedtime). lisinopril (lisinopril 20 mg Tab) 1 Tablets By Mouth every day. metformin (metformin 500 mg Tab) 1 Tablets By Mouth 2 times a day. metoprolol (Metoprolol tartrate 25 mg Tab) 1 Tablets By Mouth 2 times a day. Refills: 1. nitroglycerin (nitroglycerin 0.4 mg sublingual Tab) 1 Tablets Sublingual every 5 minutes as needed Chest pain. not to exceed 3 doses/15 min--if pain persists, seek medical attention. Refills: 0. ticagrelor (Brilinta (ticagrelor) 90 mg oral tablet) 1 Tablets By Mouth 2 times a day. Refills: 1. Care Team Members: Attending Physician: Ellie ALMONTE MD Consulting Physician: Vladimir Holcomb MD; Abhishek Monterroso MD Referring Physician: Follow up: With: Address: When: Abhishek Monterroso [address] [place], [place] [id number] Business (1) Within 2 weeks Comments: Call for followup appointment With: Address: When: Gentry Wolf [address] [place] [address] [place] [phone] Business (1) 01/27/2023 9:30 AM Patient Education Information: CV - Cardiovascular PCI Discharge Instructions (CUSTOM) [facility] Inpatient Patient Summaryon 01-23-2023 Inpatient Patient Summary ESCOBAR NASH :1980 Visit Date:01/21/2023 Inpatient Discharge Instructions Your Care Team Admitting Physician - Ellie ALMONTE MD Consulting Physician - Abhishek Monterroso MD, MD, Daniel J Reason for Your Visit chest pain radiating to arm and shoulder Your Diagnosis NSTEMI (non-ST elevation myocardial infarction) Coronary artery disease Chest pain Elevated troponin Hypertensive urgency Right shoulder pain Leukocytosis Hyperglycemia Hyponatremia Metabolic acidosis HTN (hypertension) Diabetes mellitus Obese On deep vein thrombosis (DVT) prophylaxis Chest pain Tests Performed Automated Diff Beta-hydroxybutyrate BMP BMP Capillary Glucose POC CBC w/ Auto Diff CBC w/ Indices eGFR Fasting Lipid Profile Hemoglobin A1c Magnesium Level Troponin Troponin 0 Hr. Troponin 3 Hr. Troponin 6 Hr. Troponin 9 Hr. UA With Cult Reflex CV Cardiovascular -- Results Pending -- Echo Transthoracic w/ Contrast XR Chest Single View Please visit your patient portal for your results or contact your primary care physician. This Is Your Medications List acetaminophen-hydroc odone (Vicodin 500mg-5mg Tab) aspirin (aspirin 81 mg Oral EC Tab) atorvastatin (Lipitor 80 mg Tab) cetirizine (cetirizine 10 mg Tab) citalopram (citalopram 20 mg Tab) fluticasone (fluticasone furoate 50 mcg inhalation powder) glimepiride (glimepiride 4 mg Tab) ibuprofen (ibuprofen 800 mg Tab) insulin glargine (Lantus insulin) lisinopril (lisinopril 20 mg Tab) metformin (metformin 500 mg Tab) metoprolol (Metoprolol tartrate 25 mg Tab) nitroglycerin (nitroglycerin 0.4 mg sublingual Tab) ticagrelor (Brilinta (ticagrelor) 90 mg oral tablet) [Image Removed: STOP]Stop taking these medications naproxen (naproxen sodium 550 mg Tab) Procedure History PCI - Percutaneous coronary intervention. Discharge Vitals Temperature (Oral) 36.7 ?C Heart Rate (Monitored) 74 Respiratory Rate 18 Blood Pressure 146/87 Weight 83.7 kg What to do next Instructions From Your Doctor Event Name Event Result Discharge Activity Ambulate as tolerated, Activity as tolerated Discharge Diet(s) Calorie Controlled- 1800 Calorie Diet, Fat Modified- Low cholesterol, Low Sodium- 2000 mg Pending Diagnostic Test Results None Pharmacy Information Other: [facility] New Follow Up Appointments after Discharge Follow Up with Gentry Wolf When: 01/27/2023 09:30 AM EDT Where: [address] [place] [address]- Business (1) Follow Up with Abhishek Monterroso When: Within 2 weeks Comments: Call for followup appointment Where: [address] [place] [address]- [facility] (1) Medications What How Much When Why Instructions Next Dose New aspirin (aspirin 81 mg Oral EC Tab) 1 Tablets By Mouth Every day Refills: 1 Pickup at [facility] #[id number] 01/24 New atorvastatin (Lipitor 80 mg Tab) 1 Tablets By Mouth Every day Refills: 1 Pickup at [facility] #[id number] 01/24 New metoprolol (Metoprolol tartrate 25 mg Tab) 1 Tablets By Mouth 2 times a day Refills: 1 Pickup at [facility] #[id number] 01/23 9:00pm New nitroglycerin (nitroglycerin 0.4 mg sublingual Tab) 1 Tablets Sublingual Every 5 minutes as needed for Chest pain not to exceed 3 doses/ 15 min--if pain persists, seek medical attention Pickup at [facility] #[id number] New ticagrelor (Brilinta (ticagrelor) 90 mg oral tablet) 1 Tablets By Mouth 2 times a day Chest pain Elevated troponin NSTEMI (non-ST elevation myocardial infarction) Hypertensive urgency Right shoulder pain Refills: 1 Pickup at [facility] #[id number] 01/23 9:00pm Changed insulin glargine (Lantus insulin) 20 Units Subcutaneous Once a day (at bedtime) Unchanged acetaminophen-hydroc odone (Vicodin 500mg-5mg Tab) 1 Tablets By Mouth Every 4 hours as needed for for pain Unchanged cetirizine (cetirizine 10 mg Tab) 1 Tablets By Mouth Every day 01/24 Unchanged citalopram (citalopram 20 mg Tab) 1 Tablets By Mouth Every day 01/24 Unchanged fluticasone (fluticasone furoate 50 mcg inhalation powder) 1 Puffs Inhalation 2 times a day 01/24 Unchanged glimepiride (glimepiride 4 mg Tab) 1 Tablets By Mouth Every day Unchanged ibuprofen (ibuprofen 800 mg Tab) 1 Tablets By Mouth 4 times a day as needed for as needed for pain Unchanged lisinopril (lisinopril 20 mg Tab) 1 Tablets By Mouth Every day 01/24 Unchanged metformin (metformin 500 mg Tab) 1 Tablets By Mouth 2 times a day 01/23 9:00pm Pharmacy Information [facility] #[id number]: [address], [place] [id number] [phone] What How Much When Comments Stop Taking naproxen (naproxen sodium 550 mg Tab) 1 Tablets By Mouth 2 times a day Test Results CBC BMP WBC: 9.5 E9/L (01/23/23 06:23:00) Glucose Lvl: 183 mg/dL (01/23/23 06:23:00) RBC: 4.6 E12/L (01/23/23 06:23:00) BUN: 11 mg/dL (01/23/23 06:23:00) HGB: 13.3 gm/dL (01/23/23 06:23:00) Creatinine: 0.5 mg/ (more content not included)... Normal [facility] Inpatient Patient Summary [address] [address] Patient Discharge Instructions PERSON INFORMATION Name: ESCOBAR NASH Date of : 1980 Current Date: 01/23/2023 09:22:43 PHYSICIANS Ad[facility] Physician: Gentry Wolf MD PCP Comment: Discharge Diagnosis: 1:NSTEMI (non-ST elevation myocardial infarction); 2:Coronary artery disease; 3:Chest pain; 4:Elevated troponin; 5:Hypertensive urgency; 6:Right shoulder pain; 7:Leukocytosis; 8:Hyperglycemia; 9:Hyponatremia; 10:Metabolic acidosis; 11:HTN (hypertension); 12:Diabetes mellitus; 13:Obese; 14:On deep vein thrombosis (DVT) prophylaxis Condition at Discharge: Improved SAAD ESCOBAR Magnus has been given the following list of follow-up instructions, prescriptions, and patient education materials: PATIENT FOLLOW-UP INFORMATION Diet: Calorie Controlled- 1800 Calorie Diet, Fat Modified- Low cholesterol, Low Sodium- 2000 mg Discharge Activity: Ambulate as tolerated, Activity as tolerated Discharge Restrictions: Wound Care Instructions: Remove Your Dressing In Days Call Your Doctor For: IF UNABLE TO CONTACT YOUR PHYSICIAN AND YOU FEEL IT IS AN EMERGENCY, GO TO THE NEAREST EMERGENCY ROOM OR CALL 911 Home Treatment: Devices/Equipment: Blood glucose monitor Special Services: Additional Instructions: Primary Care Physician to provide the following pending test results: None Follow up: With: Address: When: Abhishek Monterroso [address] [place] [address] Business (1) Within 2 weeks Comments: Call for followup appointment With: Address: When: Gentry Wolf [address] [place] [address], [place] [address] Business (1) 01/27/2023 9:30 AM In the event that this physician does not participate in your insurance network, please consult with your insurance company to find a nearby participating provider. Comment: ISAAD CHRYSTAL D, have received the attached patient education materials/instructio ns and have verbalized understanding: Patient Signature Date Clinican/Nurse Signature Date HERE ARE THE MEDICATION CHANGES THAT OCCURRED DURING YOUR HOSPITAL STAY New Medications Printed Prescriptions aspirin (aspirin 81 mg Oral EC Tab) 1 Tablets By Mouth every day. Refills: 1. Last Dose: Next Dose: atorvastatin (Lipitor 80 mg Tab) 1 Tablets By Mouth every day. Refills: 1. Last Dose: Next Dose: metoprolol (Metoprolol tartrate 25 mg Tab) 1 Tablets By Mouth 2 times a day. Refills: 1. Last Dose: Next Dose: nitroglycerin (nitroglycerin 0.4 mg sublingual Tab) 1 Tablets Sublingual every 5 minutes as needed Chest pain. not to exceed 3 doses/15 min--if pain persists, seek medical attention. Refills: 0. Last Dose: Next Dose: ticagrelor (Brilinta (ticagrelor) 90 mg oral tablet) 1 Tablets By Mouth 2 times a day. Refills: 1. Last Dose: Next Dose: Medications to Continue Taking That Have Changed Other Medications START: insulin glargine (Lantus insulin) 20 Units Subcutaneous once a day (at bedtime). Last Dose: Next Dose: STOP: insulin glargine (Lantus 100 units/mL Injection-Insulin) 20 Units Subcutaneous once a day (at bedtime). Medications to Continue with No Changes Other Medications acetaminophen-hydroc odone (Vicodin 500mg-5mg Tab) 1 Tablets By Mouth every 4 hours as needed for pain. Refills: 0. Last Dose: Next Dose: cetirizine (cetirizine 10 mg Tab) 1 Tablets By Mouth every day. Last Dose: Next Dose: citalopram (citalopram 20 mg Tab) 1 Tablets By Mouth every day. Last Dose: Next Dose: fluticasone (fluticasone furoate 50 mcg inhalation powder) 1 Puffs Inhalation 2 times a day. Last Dose: Next Dose: glimepiride (glimepiride 4 mg Tab) 1 Tablets By Mouth every day. Last Dose: Next Dose: ibuprofen (ibuprofen 800 mg Tab) 1 Tablets By Mouth 4 times a day as needed as needed for pain. Last Dose: Next Dose: lisinopril (lisinopril 20 mg Tab) 1 Tablets By Mouth every day. Last Dose: Next Dose: metformin (metformin 500 mg Tab) 1 Tablets By Mouth 2 times a day. Last Dose: Next Dose: No Longer Take the Following Medications naproxen (naproxen sodium 550 mg Tab) 1 Tablets By Mouth 2 times a day. Comment: MEDICATIO (more content not included)... [facility] Interdisciplinary Note - Lemuel e Manageron 01-23-2023 Interdisciplinary Note - Corrections Nurse Pt is awake and alert in bed, previously rounded with Dr. Almonte, await Cardiology to see. Will likely DC home later today. Checked cost of brilinta at pt preferred pharmacy and is completly covered by pt insurance, but pharmacy is out of stock of medication until wednesday. Nursing aware and will send enough medication to cover for pt until Wednesday Cardiac Rehab education provided. Pt lives at home with son and boyfriend and her sister will transport at DC. . PCP verified and insurance information reviewed and DME discussed. Contact information provided and white board updated. [facility] Comment on above: Result Comment: Elec tronically Signed By: Todd CASEY, Jeanie\.brenna\Date and Time Signed: 01/23/23 12:44 EDT Interdisciplinary Note - Navarro freitason 01-23-2023 Interdisciplinary Note - Nursing Patient prescribed Brillinta for discharge. Her preferred pharmacy, [facility], will not have any of this medication until Wednesday. Patient refuses to switch pharmacies at this time to orange picker machine operator enough to last her through the weekend. She states her sister will not take her to any other pharmacy. Per Dr. Lawrence, ok to pull 4 doses of Brillinta 90mg from RX station to send home with patient until she can orange picker machine operator medication on Wednesday. Education provided to patient on importance of taking Brillinta exactly how it is prescribed. Informed patient that if she cannot get the rest of her Brillinta on Wednesday for any reason to contact the [facility] or hospital park worker supervisor per Dr. Lawrence. Normal [facility] Magnesiumon 01-23-2023 Magnesium [Mass/Vol] 1.5 mg/dL Normal 1.3-2.4 [facility] Comment on above: Performed By: #### 2 [id number], [id number], [id number], [id number], [id number], [id number] #### [facility] [address] [place] [address] Monitor Recordon 01-23-2023 Monitor Record [id number] 0#1.00CD:127 Normal [facility] Monitor Record [id number] 2#1.00CD:127 Normal [facility] Monitor Record [id number] 5#1.00CD:127 Normal [facility] Monitor Record [id number] 7#1.00CD:127 Normal [facility] Operative Reporton Operative Report Indication for Surgery Non-STEMI Preoperative Diagnosis Presumed CAD Postoperative Diagnosis Confirmed CAD PCI of the mid left circumflex with AURORA x1 Operation Coronary angiography Left ventriculography Hemodynamic measurements of the left ventricle PCI of the mid left circumflex with AURORA x1 This note is completed immediately following the procedure the date and time of this procedure are the same as this note. Surgeon(s) Abhishek Monterroso MD Anesthesia Conscious sedation Estimated Blood Loss Trivial Findings LMT: Normal left main trunk with bifurcation LAD: Normal caliber with mild diffuse irregularity and less than 30% no stenosis, reaches the apex. LCx: Normal caliber with 99% mid stenosis with VADIM II 0.75 flow, reaches the lateral wall. RCA: Normal caliber with mild diffuse disease and less than 50% stenosis, dominant, reaches the inferior wall. PDA ostial is 50%. Hemodynamics: Normal LVEDP with no gradient across the aortic valve. Left ventriculography: Normal LV systolic function, EF 55-60%, subtle lateral wall motion abnormalities and normal chamber size with no mitral regurgitation. PCI note: Successful PCI mid left circumflex 99% stenosis VADIM II 0.75 flow reduced to 0% residual VADIM-3 flow after implantation of a Xience 2.75/28 postdilated 3.0 NC at high pressure. Conclusions: Multivessel CAD with severe stenosis left circumflex status post PCI with AURORA. CAD: DAPT, beta-alicia, statin, risk factor modification. Importance of antiplatelet compliance was emphasized including risk of stent thrombosis or . The patient understands as well as his accompanying family member/friend that the patient may have stent thrombosis or heart attack and the patient agrees. I myself have specifically counseled the patient regarding stent thrombosis risk including and the patient will additionally be counseled by the Diplomatic Interpreter team and in follow-up. Complications None Technique Following full and informed consent the patient was brought to the Diplomatic Interpreter where sterile prep and drape were administered in usual fashion. Anesthesia was obtained in the right wrist with lidocaine after administration of conscious sedation. A 5/6 slender Terumo sheath was placed in the right radial artery without complication. Nitroglycerin and nicardipine were given via the sheath and heparin was given intravenously. A 5 Slovenian JACKE catheter was advanced and selectively engaged in the left main coronary artery and right coronary artery each, where selective injections were performed. A pigtail catheter was placed in the left ventricle where hemodynamic measurements the left ventricle were made and a bolus was given for left ventriculography. A pullback gradient was obtained. A 6 Slovenian jl3.5 catheter was advanced and selectively engaged in the left main coronary artery. A wire was advanced across the lesion of the mid LCx. The lesion was dilated with a compliant balloon, stented with a drug-eluting stent X 1, and postdilated with a noncompliant balloon at high pressure. Completion angiography was performed in orthogonal projections with the wire and balloon removed. The guide catheter was removed without event. The sheath was removed with hemostasis obtained by D-Stat radial device at the end of the procedure without complication. Normal [facility] Comment on above: Result Comment: Valentina tronically Signed By: Kriss HAIDER, Abhishek Hagan\.br\Date and Time Signed: 01/22/23 22:16 EDT Progress Note-Physicianon Progress Note-Physician Patient with recent non-STEMI and stent placement who is on Brilinta. Prescription sent to her pharmacy and they will not have it available till Wednesday. Patient is not willing to change her pharmacy to fill it somewhere else. She is medically stable for discharge and [facility] cleared her. We will give for Brilinta from here in order to get her through the weekend and prevent in-stent rethrombosis and potential complication. Nurse will give for medications which will cover patient until Wednesday morning and if any issue patient is to call park worker supervisor or [facility] to get it filled somewhere else. Normal [facility] Comment on above: Result Comment: Valentina tronically Signed By: Joe LAWRENCE MD\.br\Date and Time Signed: 01/23/23 16:12 EDT Progress Note-Physician Assessment/Plan 40-year-old female noncigarette smoker with history of diabetes mellitus, hypertension, obesity presented with chest pain, right shoulder pain and was admitted with acute NSTEMI, elevated troponin, hypertensive urgency and right shoulder pain and was found to have stenosis of the left circumflex artery requiring 1 drug-eluting stent placement. 1. NSTEMI (non-ST elevation myocardial infarction) (I21.4: Non-ST elevation (NSTEMI) myocardial infarction) Acute NSTEMI?present on admission. Status post 1 drug-eluting stent placement in left circumflex artery on 01/22/2023. Continue on aspirin, Brilinta, Lipitor, lisinopril, Lopressor. Treated with Lovenox. Ordered: Sbsq Hospital Care/Day Moderate 35 Minutes [id number] 2. Coronary artery disease (I25.10: Atherosclerotic heart disease of [place] coronary artery without angina pectoris) As seen on cardiac catheterization. Patient has coronary artery disease with mid left circumflex artery occlusion requiring 1 drug-eluting stent placement on 01/22/2023. Continue on aspirin, Brilinta, Lipitor, lisinopril and Lopressor. [facility] Moderate 35 Minutes 09826 3. Chest pain (R07.9: Chest pain, unspecified) Secondary to above. Resolved. Ordered: [facility] Hospital Care/Day Moderate 35 Minutes 25503 4. Elevated troponin (R77.8: Other specified abnormalities of plasma proteins) Secondary to above. Resolved. Ordered: [facility] Hospital Care/Day Moderate 35 Minutes 85128 5. Hypertensive urgency (I16.0: Hypertensive urgency) Resolved. Continue on lisinopril and metoprolol. Ordered: [facility] Hospital Care/Day Moderate 35 Minutes 45813 6. Right shoulder pain (M25.511: Pain in right shoulder) Secondary to above #1. With atypical presentation. [facility]: [facility] Moderate 35 Minutes 16654 7. Leukocytosis (D72.829: Elevated white blood cell count, unspecified) Secondary to recent steroid. Resolved. 8. Hyperglycemia (R73.9: Hyperglycemia, unspecified) Secondary to recent steroid. Resolved. 9. Hyponatremia (E87.1: Hypo-osmolality and hyponatremia) Resolved. 10. Metabolic acidosis (E87.20: Acidosis, unspecified) Improved. 11. HTN (hypertension) (I10: Essential (primary) hypertension) Continue on metoprolol and lisinopril. 12. Diabetes mellitus (E11.9: Type 2 diabetes mellitus without complications) Continue on Lantus, metformin and sliding scale insulin. 13. Obese (E66.9: Obesity, unspecified) Recommend therapeutic lifestyle modification changes. 14. On deep vein thrombosis (DVT) prophylaxis (Z79.899: Other halfway (current) drug therapy) SCDs. Disposition: Home either today or in a.m. pending cardiology final recommendations. I discussed the diagnosis and plan of care with the patient at the bedside. Moderate level of MDM based on addressing above issues. This documentation was transcribed using voice recognition software. Several attempts were made to ensure accuracy. However inadvertent computerized sciences dean errors may be present. Ellie Almonte. Hospitalist. Orders: atorvastatin, 80 mg = 2 tab(s), Tab, Oral, Bedtime, Routine, Start date 01/23/23 21:00:00 EDT, 01/23/23 7:16:00 EDT citalopram, 20 mg = 1 tab(s), Tab, Oral, Daily, Routine, Start date 01/22/23 10:00:00 EDT glimepiride, 4 mg = 2 tab(s), Tab, Oral, Daily, Routine, Start date 01/22/23 10:00:00 EDT insulin glargine, 20 unit(s) = 0.2 mL, Injection-Insulin, SubCutaneous, Once a day (at bedtime), Routine, Start date 01/22/23 21:00:00 EDT lidocaine topical, 1 patch(es), Patch, TransDermal, Once, Stop date 01/22/23 12:00:00 EDT, Routine, Start date 01/22/23 12:00:00 EDT, Vancomycin Pharmacy to Dose Consult lorazepam, 0.5 mg = 1 tab(s), Tab, Oral, TID PRN Anxiety, Routine, Start date 01/22/23 11:19:00 EDT, 01/22/23 11:19:00 EDT metoprolol, 25 mg = 1 tab(s), Tab, Oral, BID, Routine, Start date 01/22/23 11:30:00 EDT, 01/22/23 11:30:00 EDT perflutren, 1.3 mL, Injection, IV Push, Once, Stop date 01/22/23 11:00:00 EDT, Routine, Start date 01/22/23 11:00:00 EDT remove patch, 1 patch(es), Patch, Topical, Once, Stop date 01/23/23 0:00:00 EDT, Physician Stop, 01/23/23 0:00:00 EDT Capillary Glucose POC Capillary Glucose POC Capillary Glucose POC Capillary Glucose POC ECG 12 Lead Adult Echo Transthoracic w/ Contrast HgbA1c Referral to Resource [facility] Subjective Seen and examined. She feels well this morning. Denies any shoulder pain or chest pain. Objective Vitals & Measurements Temperature 36.8 ?C, heart rate 88/M, respiratory rate 18/M, blood pressure 155/95, 98% on room air Intake & Output This visit (24 hour periods starting at 07:00 EDT) 01/23/23 * 01/22/23 01/21/23 Total Summary Intake mL -- 302.8 1,350 Output mL -- -- -- Fluid Balance -- 302.8 1,350 Intake (5) Oral Intake mL -- 300 350 Sodium Chloride 0.9% mL -- -- 1,000 hydrALAZINE mL -- 0 (more content not included)... Normal [facility] Comment on above: Result Comment: Elec tronically Signed By: GAGE HAIDER, Bobbyfo\.br\Date and Time Signed: 01/23/23 09:13 EDT Troponinon 01-23-2023 Troponin I.cardiac [Mass/Vol] 1304.50 pg/mL Abnormal 10.10-27.10 [facility] Comment on above: Result Comment: Crit ical Result verified by previous result\ Critical Result I_hsTnI:1304.5 Called to MICHELE HERRMANN at 3S by HARDEEP HANSEN and read back for confirmation at 01/23/2023 07:42:43 The 95% CI (Confidence Interval) PPV (Positive Predictive Value) for myocardial infarction in females is 38 pg/mL, in males 51 pg/mL. The results should be used in conjunction with clinical conditions of myocardial infarction. (Access High Sensitivity Troponin I Instructions For Use, Son Ruben, March 2018) Performed By: #### 2 806968, 1221978, 32257753, [id number], 1388870, 6757864 #### [facility] [address] [place] [address] eGFRon 01-23-2023 GFR/1.73 sq M.predicted among non-blacks MDRD (S/P/Bld) [Vol rate/Area] 118 mL/min/1.73 m2 Normal >=59 [facility] Comment on above: Order Comment: Order added by Discern Expert. 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 Kidney failure is indicated at less than 15 mL/min/1.73m2. Performed By: #### 2 723441, 4464075, 47426979, 719508087, 2136701, 6477366 #### [facility] [address] [place] [address] Auto Diffon 01-22-2023 Basophils/100 WBC (Bld) 0.4 % Normal 0.0-2.0 [facility] Comment on above: Order Comment: Order Added by Discern Expert. Performed By: #### 2 809612, 9256230, 65429596, 394886543, 6528649, 8452018 #### [facility] [address] [place] [address] 589[address] Basophils/Leukocytes Auto (Bld) [Pure # fraction] 0.0 E9/L Normal 0.0-0.2 [facility] Comment on above: Order Comment: Order Added by Discern Expert. Performed By: #### 2 841923, 4635297, 16844844, 789213856, 9486194, 6422859 #### [facility] [address] [place] [address] 28719 Eosinophils/100 WBC (Bld) 0.2 % Normal 0.0-8.0 [facility] Comment on above: Order Comment: Order Added by Discern Expert. Performed By: #### 2 005239, 5817772, 12986793, 709271808, 1681855, 1571608 #### [facility] [address] [place] [address] 26917 Eosinophils/Leukocyte s Auto (Bld) [Pure # fraction] 0.0 E9/L Normal 0.0-0.5 [facility] Comment on above: Order Comment: Order Added by Discern Expert. Performed By: #### 2 483002, 5955458, 02387996, 294617062, 8996282, 3759822 #### [facility] [address] [place] [address] 58161 Lymphocytes/100 WBC (Bld) 24.9 % Normal 14.0-50.0 [facility] Comment on above: Order Comment: Order Added by Discern Expert. Performed By: #### 2 680625, 5366509, 00206614, 858412931, 4109840, 9497497 #### [facility] [address] [place] [address] 18043 Lymphocytes/Leukocyte s Auto (Bld) [Pure # fraction] 2.6 E9/L Normal 1.0-4.0 [facility] Comment on above: Order Comment: Order Added by Discern Expert. Performed By: #### 2 388093, 9934444, 75640029, 139595608, 0071988, 7851508 #### [facility] [address] [place] [address] 97334 Monocytes/100 WBC (Bld) 4.6 % Normal 4.0-14.0 [facility] Comment on above: Order Comment: Order Added by Discern Expert. Performed By: #### 2 274209, 1188520, 95465128, 503978160, 3069676, 5843413 #### [facility] [address] [place] [address] 20194 Monocytes/Leukocytes Auto (Bld) [Pure # fraction] 0.5 E9/L Normal 0.2-1.0 [facility] Comment on above: Order Comment: Order Added by Discern Expert. Performed By: #### 2 357372, 2630335, 33631564, 883966491, 3762755, 6826131 #### [facility] [address] [place] [address] 66061 Neutrophils/100 WBC (Bld) 69.9 % Normal 36.0-75.0 [facility] Comment on above: Order Comment: Order Added by Discern Expert. Performed By: #### 2 152927, 3355025, 85001818, 816500127, 7305699, 4619568 #### [facility] [address] [place] [address] 75043 Neutrophils/Leukocyte s Auto (Bld) [Pure # fraction] 7.4 E9/L Normal 2.0-7.5 [facility] Comment on above: Order Comment: Order Added by Discern Expert. Performed By: #### 2 307498, 9010433, 14835561, 384931193, 4587249, 9123053 #### [facility] [address] [place] [address] BMPon 01-22-2023 Anion gap [Moles/Vol] 5 mmol/L Low 6-16 [facility] Comment on above: Performed By: #### 2 480282, 4367200, 37763570, 281648340, 5460787, 3473111 #### [facility] [address] [place] [address] Calcium [Mass/Vol] 8.0 mg/dL Low 8.9-11.1 [facility] Comment on above: Performed By: #### 2 089967, 8010897, 52763464, 866402245, 0200336, 0501043 #### [facility] [address] [place] [address] Chloride [Moles/Vol] 107 mmol/L Normal 101-111 [facility] Comment on above: Performed By: #### 2 443927, 5617687, 92797026, 053162983, 8230371, 4071840 #### [facility] [address] [place] [address] CO2 [Moles/Vol] 23 mmol/L Normal 21-31 [facility] Comment on above: Performed By: #### 2 860688, 8680070, 86747690, 597223756, 2483257, 2708616 #### [facility] [address] [place] [address] Creatinine [Mass/Vol] 0.6 mg/dL Normal 0.5-1.3 [facility] Comment on above: Performed By: #### 2 670164, 4115455, 72360529, 273607575, 4020352, 6076242 #### [facility] [address] [place] [address] Glucose [Mass/Vol] 293 mg/dL High 55-199 [facility] Comment on above: Result Comment: If t his glucose result represents a fasting glucose, interpretation should refer to the following reference range: 55-99 mg/dL Performed By: #### 2 132312, 7924972, 60093556, 911803414, 0260433, 8691821 #### [facility] [address] [place] [address] Potassium [Moles/Vol] 4.0 mmol/L Normal 3.5-5.3 [facility] Comment on above: Performed By: #### 2 436051, 4434510, 13419223, 442613804, 4664289, 4785201 #### [facility] [address] [place] [address] Sodium [Moles/Vol] 131 mmol/L Low 135-145 [facility] Comment on above: Performed By: #### 2 260054, 5984087, 54377992, 714597106, 5627584, 4827613 #### [facility] [address] [place] [address] Urea nitrogen [Mass/Vol] 20 mg/dL Normal 5-21 [facility] Comment on above: Performed By: #### 2 049498, 4791693, 47046895, 688174492, 8575068, 0417009 #### [facility] [address] [place] [address] Urea nitrogen/Creatinine [Mass ratio] 33 No Units High 10-20 [facility] Comment on above: Performed By: #### 2 139282, 4969673, 75360957, 114186677, 3160092, 2236302 #### [facility] [address] [place] [address] CBC w/ Auto Diffon 3 Erythrocyte distribution width (RBC) [Ratio] 14.0 % Normal 10.9-14.2 [facility] Comment on above: Performed By: #### 2 731971, 1510425, 35802852, 984419975, 2076395, 3807844 #### [facility] [address] [place] [address] Hematocrit (Bld) [Volume fraction] 35.5 % Normal 34.0-46.0 [facility] Comment on above: Performed By: #### 2 291420, 7848088, 87634561, 789503032, 2540027, 6533597 #### [facility] [address] [place] [address] Hemoglobin (Bld) [Mass/Vol] 12.5 g/dL Normal 12.0-16.0 [facility] Comment on above: Performed By: #### 2 657084, 2012144, 42107083, 951746287, 7518358, 7171678 #### [facility] [address] [place], [place] [address] MCH (RBC) [Entitic mass] 28.6 pg Normal 27.0-34.0 [facility] Comment on above: Performed By: #### 2 992757, 7215364, 51389878, 727633355, 0595783, 8087934 #### [facility] [address] [place], [place] [address] MCHC (RBC) [Mass/Vol] 35.1 g/dL Normal 31.4-36.0 [facility] Comment on above: Performed By: #### 2 758422, 5448598, 30991178, 877587936, 5942475, 6851080 #### [facility] [address] [place], [place] [address] MCV (RBC) [Entitic vol] 81.5 fL Normal 80.0-100.0 [facility] Comment on above: Performed By: #### 2 938768, 1700455, 41620231, 541711038, 4639146, 4530057 #### [facility] [address] [place] [address] Platelet mean volume (Bld) [Entitic vol] 8.9 fL Normal 6.4-10.8 [facility] Comment on above: Performed By: #### 2 703238, 1722295, 58551093, 240856033, 8561204, 3952350 #### [facility] [address] [place] [address] Platelets (Bld) [#/Vol] 246.0 E9/L Normal 150.0-500.0 [facility] Comment on above: Performed By: #### 2 183292, 3739383, 74857264, 093939975, 4043032, 4626377 #### [facility] [address] [place] [address] RBC (Bld) [#/Vol] 4.4 E12/L Normal 4.3-5.9 [facility] Comment on above: Performed By: #### 2 740182, 1478706, 48336554, 730447465, 1698902, 3181736 #### [facility] [address] [place] [address] WBC corrected for nucl RBC Auto (Bld) [#/Vol] 10.6 E9/L Normal 4.0-11.0 [facility] Comment on above: Performed By: #### 2 810856, 5660943, 81058753, 453915200, 4822893, 2937492 #### [facility] [address] [place] [address] CHEMISTRYOrdered By: Will ROP User on 01-22-2023 Glucose [Mass/Vol] 378 mg/dL High 55 - 99 mg/dL [facility] C POC Subsection Comment on above: Result Comment: Marino paulson RN/ POC Device SN [id number] Invalid Interpretation Code [facility] POC Subsection POC User ID [id number] Invalid Interpretation Code [facility] POC Subsection POC Username KOBI SINGH Invalid Interpretation Code [facility] POC Subsection CHEMISTRYOrdered By: Stella Lisa on 01-22-2023 Anion gap [Moles/Vol] 5 mmol/L Low 6 - 16 mEq/L [facility] Calcium [Mass/Vol] 8.0 mg/dL Low 8.9 - 11. 1 mg/dL [facility] Chloride [Moles/Vol] 107 mmol/L Normal 101 - 1 11 mmol/L [facility] Cholesterol [Mass/Vol] 205 mg/dL High 120 - 200 mg/dL [facility] Remisol Cholesterol in HDL [Mass/Vol] 35 mg/dL Invalid Interpretation Code [facility] Remisol Cholesterol in LDL [Mass/Vol] 115 mg/dL Normal <=129mg/dL [facility] Remisol Cholesterol in VLDL [Mass/Vol] 60 mg/dL High 7 - 40 mg/dL [facility] Remisol CO2 [Moles/Vol] 23 mmol/L Normal 21 - 31 mmol/L [facility] Creatinine [Mass/Vol] 0.6 mg/dL Normal 0.5 - 1.3 mg/dL [facility] Glucose [Mass/Vol] 293 mg/dL High 55 - 199 mg/dL [facility] Potassium [Moles/Vol] 4.0 mmol/L Normal 3.5 - 5.3 mmol/L [facility] Remisol Sodium [Moles/Vol] 131 mmol/L Low 135 - 145 mmol/L [facility] Remisol Triglyceride [Mass/Vol] 300 mg/dL High <=149mg/dL [facility] Remisol Urea nitrogen [Mass/Vol] 20 mg/dL Normal 5 - 21 mg/dL [facility] Remisol Urea nitrogen/Creatinine [Mass ratio] 33 mg/mg High 10 - 20 [facility] Remisol CHEMISTRYOrdered By: SYSTEM SYSTEM on 01-22-2023 GFR/1.73 sq M.predicted among non-blacks MDRD (S/P/Bld) [Vol rate/Area] 113 mL/min/1.73 m2 Normal >=59mL/min/1. 73 m2 [facility] Chem S Troponin I.cardiac [Mass/Vol] 445.10 pg/mL Invalid Interpretation Code 10.10 - 27.10 pg/mL [facility] Remisol Comment on above: Result Comment: Crit ical Result verified by previous result\ Critical Result I_hsTnI:445.1 Called to ROSSY MOE at 3N by VERONIQUE REID and read back for confirmation at 01/22/2023 01:58:36 CHEMISTRYOrdered By: Christiano Clay on 01-22-2023 HbA1c (Bld) [Mass fraction] 11.1 % High <=5.9% [facility] ChemAutoSS Capillary Glucose POCon 01-01 Glucose [Mass/Vol] 378 mg/dL High 55-99 [facility] Comment on above: Result Comment: Marino NEWBY Performed By: #### 2 [id number] ####[facility] [address] [place] [address] Glucose [Mass/Vol] 245 mg/dL High [address] [place] [address] Comment on above: Result Comment: Marino paulson RN/ Performed By: #### 2 986508, 9447449, 95657373, 545610364, 4584310, 9536768 #### [facility] [address] [place] [address] Glucose [Mass/Vol] 268 mg/dL High [address] [place] [address] Comment on above: Result Comment: Marino paulson RN/ Performed By: #### 2 [id number] ####[facility] [address] [place] [address] Glucose [Mass/Vol] 215 mg/dL [address] Comment on above: Result Comment: Marino NEWBY Performed By: #### 2 [id number] ####[facility] [address] [place] [address] Glucose [Mass/Vol] 378 mg/dL [address] Comment on above: Result Comment: Marino NEWBY Performed By: #### 2 453620, 1434888, 32575799, 050906051, 7259411, 6966250 #### [facility] [address] [place] [address] Cardiovascular Reporton 01-01 Cardiovascular Report [id number] 3#2.00CD:127 Normal [facility] HEMATOLOGYOrdered By: SYSTEM SYSTEM on 01-22-2023 Basophils/100 WBC (Bld) 0.4 % Normal 0.0 - 2.0 % [facility] HemeAutoSS Basophils/Leukocytes Auto (Bld) [Pure # fraction] 0.0 E9/L Normal 0.0 - 0.2 E9/L [facility]eAuto[facility] Eosinophils/100 WBC (Bld) 0.2 % Normal 0.0 - 8.0 % [facility]eAuto[facility] Eosinophils/Leukocyte s Auto (Bld) [Pure # fraction] 0.0 E9/L Normal 0.0 - 0.5 E9/L [facility]eAuto[facility] Lymphocytes/100 WBC (Bld) 24.9 % Normal 14.0 - 50.0 % [facility] Lymphocytes/Leukocyte s Auto (Bld) [Pure # fraction] 2.6 E9/L Normal 1.0 - 4.0 E9/L [facility] Monocytes/100 WBC (Bld) 4.6 % Normal 4.0 - 14.0 % [facility]eAuto[facility] Monocytes/Leukocytes Auto (Bld) [Pure # fraction] 0.5 E9/L Normal 0.2 - 1.0 E9/L [facility] Neutrophils/100 WBC (Bld) 69.9 % Normal 36.0 - 75.0 % [facility] Neutrophils/Leukocyte s Auto (Bld) [Pure # fraction] 7.4 E9/L Normal 2.0 - 7.5 E9/L [facility] HEMATOLOGYOrdered By: Rogelio Tiwari on 01-22-2023 Erythrocyte distribution width (RBC) [Ratio] 14.0 % Normal 10.9 - 14.2 % [facility] Hematocrit (Bld) [Volume fraction] 35.5 % Normal 34.0 - 46.0 % [facility] Hemoglobin (Bld) [Mass/Vol] 12.5 g/dL Normal 12.0 - 16.0 gm/dL [facility] MCH (RBC) [Entitic mass] 28.6 pg Normal 27.0 - 34.0 pg [facility] MCHC (RBC) [Mass/Vol] 35.1 g/dL Normal 31.4 - 36.0 gm/dL [facility] MCV (RBC) [Entitic vol] 81.5 fL Normal 80.0 - 100.0 fL [facility] Platelet mean volume (Bld) [Entitic vol] 8.9 fL Normal 6.4 - 10.8 fL [facility] Platelets (Bld) [#/Vol] 246.0 E9/L Normal 150.0 - 500.0 E9/L [facility] RBC (Bld) [#/Vol] 4.4 E12/L Normal 4.3 - 5.9 E12/L [facility] HemeAutoSS WBC corrected for nucl RBC Auto (Bld) [#/Vol] 10.6 E9/L Normal 4.0 - 11.0 E9/L [facility] HemeAutoSS [id number] 01-22-2023 HbA1c (Bld) [Mass fraction] 11.1 % High <=5.9 [facility] Comment on above: Performed By: #### 2 562385, 0926013, 14159393, 504338135, 6651067, 2313818 #### [facility] [address] [place] [address] Interdisciplinary Note - Lemuel e Manageron 01-22-2023 Interdisciplinary Note - Corrections Nurse CRM entered the room to discuss dc planning. Contact information provided and whiteboard updated. Pt is getting testing. Pending cardiology. ANt dc today. CRM to follow. Normal [facility] Comment on above: Result Comment: Elec tronically Signed By: Cristin Shane.brenna\Date and Time Signed: 01/22/23 10:52 EDT Lipid Panelon 01-22-2023 Cholesterol [Mass/Vol] 205 mg/dL High 120-200 [facility] Comment on above: Performed By: #### 2 212116, 2655127, 87836347, 259556284, 6736323, 4225241 #### [facility] [address] [place] [address] Cholesterol in HDL [Mass/Vol] 35 mg/dL Invalid Interpretation Code [facility] Comment on above: Result Comment: HDL > or equal to 60 mg/dL: Low cardiovascular risk HDL < 40 mg/dL : High cardiovascular risk Performed By: #### 2 591437, 0090552, 08136271, 845540732, 2261983, 1350812 #### [facility] [address] [place] [address] Cholesterol in LDL [Mass/Vol] 115 mg/dL Normal <=129 [facility] Comment on above: Performed By: #### 2 484530, 0471323, 60745121, 250321748, 8683301, 5867714 #### [facility] [address] [place] [address] Cholesterol in VLDL [Mass/Vol] 60 mg/dL High 7-40 [facility] Comment on above: Performed By: #### 2 289605, 2890257, 49355266, 833514310, 0467817, 8571412 #### [facility] [address] [place] [address] Triglyceride [Mass/Vol] 300 mg/dL High <=149 [facility] Comment on above: Performed By: #### 2 715751, 7947917, 88603228, 087858249, 5667004, 6509972 #### [facility] [address] [place] [address] Monitor Recordon 01-22-2023 Monitor Record [id number] 6#1.00CD:127 Normal [facility] Monitor Record [id number] 5#1.00CD:127 Normal [facility] Monitor Record [id number] 6#1.00CD:127 Normal [facility] Monitor Record [id number] 5#1.00CD:127 Normal [facility] Pre-Certification Formon Pre-Certification Form [id number] 5#1.00CD:127 Normal [facility] Progress Note-Nurseon 2022 Progress Note-Nurse Report given to JACINTO Burgos, who is taking over patient's care in room 328. Loretta made aware that patient currently down in CV Lab. Patient's belongings taken to room 328. Patient's family member also taken down to room 328. Normal [facility] Progress Note-Nurse This documentation writer was notified by Dr. Almonte at 1303 that patient will go for heart catheterization today. Per Dr. Almonte, hold lovenox and make patient NPO. This documentation writer will do at this time and notify patient of plan of care. Normal [facility] Progress Note-Nurse This documentation writer entered the patient's room to place lidocaine patch on patient's right shoulder. Patient stated that she is having 7/10 right shoulder pain with tears in her eyes. Patient continues to deny chest pain. Lidocaine patch placed on patient's right shoulder. Blood pressure rechecked- 156/93. Patient did state that she was moving boxes back in November and when she was moving, her right arm would intermittently hurt. This documentation writer asked patient if there was anything she could do to help the patient any further, but patient denied any further needs. This documentation writer will notify Dr. Almonte that patient has had previous right shoulder pain when moving boxes back in November. Normal [facility] Progress Note-Nurse This documentation writer was notified by the person performing the echo that patient was having 10/10 right shoulder pain at 10:08. This documentation writer entered the patient's room to personally assess the patient. Patient stated she was having 10/10 right shoulder pain, but denied having chest pain. Morphine was given at 10:10. Patient stated at 10:12 right shoulder pain was now 6/10, with no chest pain. This documentation writer personally spoke with Dr. Almonte on the phone, who stated to have an EKG performed after the Echo and that he would order a lidocaine patch. This documentation writer notified both patient and Rema, with radiology that was in the patient's room. Normal [facility] Progress Note-Nurse Patient's step mother called, Chari, requesting updates. Chari not listed in contacts. This documentation writer asked patient if it was okay to give Chari updates. Patient stated, yes. This documentation writer updated Chari on plan of care. Chari had no further questions at this time. Normal [facility] Progress Note-Physicianon Progress Note-Physician Assessment/Plan 43-year-old female noncigarette smoker with history of diabetes mellitus, hypertension, obesity presented with chest pain, right shoulder pain and admitted with chest pain, elevated troponin, leukocytosis, hyperglycemia, hyponatremia, metabolic acidosis, right shoulder pain. 1. Chest pain (R07.9: Chest pain, unspecified) Chest pain? secondary to acute coronary syndrome. Resolved. Continue on aspirin, nitroglycerin as needed, morphine and oxygen. Cardiology consult pending. Ordered: [facility] Hospital Care/Day Moderate 35 Minutes 36445 2. Elevated troponin (R77.8: Other specified abnormalities of plasma proteins) Elevated troponin?secondary to NSTEMI. Cardiology consult pending. Continue on aspirin, Lipitor, Lovenox. Echocardiogram pending. Ordered: [facility] Hospital Care/Day Moderate 35 Minutes 34947 3. NSTEMI (non-ST elevation myocardial infarction) (I21.4: Non-ST elevation (NSTEMI) myocardial infarction) Acute NSTEMI?present on admission. Cardiology consult pending. Echocardiogram pending. Continue on aspirin, Lipitor, lisinopril, Lovenox. Ordered: [facility] Hospital Care/Day Moderate 35 Minutes 49862 4. Hypertensive urgency (I16.0: Hypertensive urgency) Resolved. Continue lisinopril. Ordered: [facility] Hospital Care/Day Moderate 35 Minutes 23252 5. Right shoulder pain (M25.511: Pain in right shoulder) Resolved. Ordered: [facility] Hospital Care/Day Moderate 35 Minutes 36690 6. Leukocytosis (D72.829: Elevated white blood cell count, unspecified) Secondary to recent steroid. Resolved. Ordered: 7. Hyperglycemia (R73.9: Hyperglycemia, unspecified) Secondary to steroid. Resolved. 8. Hyponatremia (E87.1: Hypo-osmolality and hyponatremia) Secondary to hyperglycemia. Improved. Sodium level 131. 9. Metabolic acidosis (E87.20: Acidosis, unspecified) Resolved. 10. HTN (hypertension) (I10: Essential (primary) hypertension) Continue lisinopril. 11. Diabetes mellitus (E11.9: Type 2 diabetes mellitus without complications) Continue on sliding scale insulin, Lantus and metformin. 12. Obese (E66.9: Obesity, unspecified) Recommend therapeutic lifestyle modification changes. 13. On deep vein thrombosis (DVT) prophylaxis (Z79.899: Other halfway (current) drug therapy) Lovenox. Disposition: Pending echocardiogram and cardiology consult. I discussed the diagnosis and plan of care with the patient at the bedside. Moderate level of MDM based on addressing above issues. This documentation was transcribed using voice recognition software. Several attempts were made to ensure accuracy. However inadvertent computerized sciences dean errors may be present. Ellie Almonte. Hospitalist. Subjective Seen and examined. She feels well this morning. She denies any chest pain or shoulder pain or arm pain. Objective Vitals & Measurements T: 36.6 ?C(Oral) TMIN: 36.5 ?C(Oral) TMAX: 36.7 ?C(Oral) HR: 71(Monitored) RR: 17 BP: 137/83 SpO2: 100% HT: 165 cm WT: 83.7 kg Intake & Output This visit (24 hour periods starting at 07:00 EDT) 01/22/23 * 01/21/23 01/20/23 Total Summary Intake mL -- 1,350 -- Output mL -- -- -- Fluid Balance -- 1,350 -- Intake (2) Oral Intake mL -- 350 -- Sodium Chloride 0.9% mL -- 1,000 -- Total -- 1,350 -- Output (0) Counts (0) * This column has not completed the indicated time period. Physical Exam General: alert, no acute distress Skin: warm, dry Head: no trauma, normocephalic Neck: Trachea midline, no adenopathy, no tenderness Eye: normal conjunctiva, sclera clear ENMT: TM's clear, oral mucosa moist, no pharyngeal erythema or exudate Cardiovascular: regular rate and rhythm, normal peripheral perfusion Respiratory: Lungs CTA, respirations non labored Chest wall: no deformity. Gastrointestinal: soft, non distended, no tenderness, no guarding. Obese. Bowel sounds intact. Back: No tenderness, Normal ROM, Normal alignment. Extremities: no deformity, no trauma Neurological: oriented x 4, LOC appropriate for age, CN II-XII intact, motor strength equal & normal bilaterally, sensation equal & normal bilaterally, speech normal Psychiatric: cooperative, affect appropriate for age, normal judgement, normal psychiatric thoughts. Lab Results WBC: 10.6 E9/L (01/22/23 05:07:00) RBC: 4.4 E12/L (01/22/23 05:07:00) HGB: 12.5 gm/dL (01/22/23 05:07:00) Hct: 35.5 % (01/22/23 05:07:00) MCV: 81.5 fL (01/22/23 05:07:00) MCH: 28.6 pg (01/22/23 05:07:00) MCHC: 35.1 gm/dL (01/22/23 05:07:00) RDW: 14 % (01/22/23 05:07:00) Platelet: 246 E9/L (01/22/23 05:07:00) MPV: 8.9 fL (01/22/23 05:07:00) Neutro Auto: 69.9 % (01/22/23 05:07:00) Lymph Auto: 24.9 % (01/22/23 05:07:00) [place]eman Auto: 4.6 % (01/22/23 05:07:00) Eos Auto: 0.2 % (01/22/23 05:07:00) Basophil Auto: 0.4 % (01/22/23 05:07:00) Neutro Absolute: 7.4 E9/L (01/22/23 05:07:00) Lymph Absolute: 2.6 E9/L (06 (more content not included)... Normal [facility] Comment on above: Result Comment: Elec tronically Signed By: GAGE HAIDER, Ellie\.br\Date and Time Signed: 01/22/23 09:41 EDT Troponin 6 Hr.on 01-22-2023 Troponin I.cardiac [Mass/Vol] 467.70 pg/mL Abnormal 10.10-27.10 [facility] Comment on above: Result Comment: Crit ical Result verified by previous result\ Critical Result I_hsTnI:467.7 Called to ROSSY MOE at 3N by VERONIQUE REID and read back for confirmation at 01/21/2023 23:51:39 The 95% CI (Confidence Interval) PPV (Positive Predictive Value) for myocardial infarction in females is 38 pg/mL, in males 51 pg/mL. The results should be used in conjunction with clinical conditions of myocardial infarction. (Access High Sensitivity Troponin I Instructions For Use, [employer], March 2018) Performed By: #### 2 [id number], [id number], [id number], [id number], 9446240, [id number] #### [facility] [address] [place] [address]8765 Troponin 9 Hr.on 01-22-2023 Troponin I.cardiac [Mass/Vol] 445.10 pg/mL Abnormal 10.10-27.10 [facility] Comment on above: Result Comment: Crit ical Result verified by previous result\ Critical Result I_hsTnI:445.1 Called to ROSSY MOE at 3N by VERONIQUE REID and read back for confirmation at 01/22/2023 01:58:36 The 95% CI (Confidence Interval) PPV (Positive Predictive Value) for myocardial infarction in females is 38 pg/mL, in males 51 pg/mL. The results should be used in conjunction with clinical conditions of myocardial infarction. (Access High Sensitivity Troponin I Instructions For Use, [employer], March 2018) Performed By: #### 1 [id number] #### [facility] [address] [place] [address] XR Chest Single Viewon 01-22 XR Chest Single View Exam Date/Time: 01/21/2023 16:53 EDT Reason for Exam: Shortness of breath (SOB) Report IMPRESSION: NO ACTIVE PULMONARY DISEASE. CLINICAL HISTORY: Shortness of breath (SOB) arm pain COMPARISON: NONE. FINDINGS: AP upright portable chest shows normal-sized heart and clear lungs. Ordering Provider: Pacheco Santacruz FINAL REPORT Dictated: 01/22/2023 6:43 am Sunil Lilly M.D. Signed (Electronic Signature): 01/22/2023 6:43 am Signed by: Sunil Lilly M.D. Transcribed by: AZIZA Technologist: LORIE Technical Comments Radiation Dose: Ka,r in mGy = na DAP = na Normal [facility] eGFRon 01-22-2023 GFR/1.73 sq M.predicted among non-blacks MDRD (S/P/Bld) [Vol rate/Area] 113 mL/min/1.73 m2 Normal >=59 [facility] Comment on above: Order Comment: Order added by Discern Expert. 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 Kidney failure is indicated at less than 15 mL/min/1.73m2. Performed By: #### 2 703571, 6094800, 15181260, [id number], 8965992, 6160806 #### [facility] [address] [place] [address] 44084 Auto Diffon 01-21-2023 Basophils/100 WBC (Bld) 0.3 % Normal 0.0-2.0 [facility] Comment on above: Order Comment: Order Added by Discern Expert. Performed By: #### 2 632548, 2753372, 75128636, 166237216, 9907811, 4348536 #### [facility] [address] [place] [address] 17044 Basophils/Leukocytes Auto (Bld) [Pure # fraction] 0.0 E9/L Normal 0.0-0.2 [facility] Comment on above: Order Comment: Order Added by Discern Expert. Performed By: #### 2 508749, 0330365, 26354221, 128490373, 5212524, 8989531 #### [facility] [address] [place] [address] 99044 Eosinophils/100 WBC (Bld) 0.1 % Normal 0.0-8.0 [facility] Comment on above: Order Comment: Order Added by Discern Expert. Performed By: #### 2 533288, 9379780, 52880271, 677773627, 7239332, 0533962 #### [facility] [address] [place] [address] 00133 Eosinophils/Leukocyte s Auto (Bld) [Pure # fraction] 0.0 E9/L Normal 0.0-0.5 [facility] Comment on above: Order Comment: Order Added by Discern Expert. Performed By: #### 2 410159, 5468747, 01626786, 055782290, 0085264, 6834759 #### [facility] [address] [place] [address] 21929 Lymphocytes/100 WBC (Bld) 8.6 % Low 14.0-50.0 [facility] Comment on above: Order Comment: Order Added by Discern Expert. Performed By: #### 2 301103, 9031688, 61214637, 643628315, 0454310, 3583790 #### [facility] [address] [place] [address] 35540 Lymphocytes/Leukocyte s Auto (Bld) [Pure # fraction] 1.2 E9/L Normal 1.0-4.0 [facility] Comment on above: Order Comment: Order Added by Discern Expert. Performed By: #### 2 445578, 0757351, 15772380, 466596193, 9589612, 0080420 #### [facility] [address] [place] [address] 68932 Monocytes/100 WBC (Bld) 4.8 % Normal 4.0-14.0 [facility] Comment on above: Order Comment: Order Added by Discern Expert. Performed By: #### 2 318903, 4973986, 31397102, 212968209, 5194078, 6236279 #### [facility] [address] [place] [address] 16714 Monocytes/Leukocytes Auto (Bld) [Pure # fraction] 0.7 E9/L Normal 0.2-1.0 [facility] Comment on above: Order Comment: Order Added by Discern Expert. Performed By: #### 2 838186, 9587719, 86671961, 055390811, 6066084, 7093147 #### [facility] [address] [place] [address] 85158 Neutrophils/100 WBC (Bld) 86.2 % High 36.0-75.0 [facility] Comment on above: Order Comment: Order Added by Discern Expert. Performed By: #### 2 517510, 7652031, 59427727, 518763385, 7707036, 8377765 #### [facility] [address] [place] [address] 02721 Neutrophils/Leukocyte s Auto (Bld) [Pure # fraction] 12.3 E9/L High 2.0-7.5 [facility] Comment on above: Order Comment: Order Added by Discern Expert. Performed By: #### 2 193465, 1538852, 81921166, 746825885, 0804767, 9339484 #### [facility] [address] [place] [address] BMPon 01-21-2023 Anion gap [Moles/Vol] 14 mmol/L Normal 6-16 [facility] Comment on above: Performed By: #### 2 770672, 0837932, 54795201, 291190160, 2074000, 0192693 #### [facility] [address] [place] [address] Calcium [Mass/Vol] 9.0 mg/dL Normal 8.9-11.1 [facility] Comment on above: Performed By: #### 2 573397, 1891773, 06412617, 611235288, 1112161, 6408944 #### [facility] [address] [place] [address] Chloride [Moles/Vol] 101 mmol/L Normal 101-111 [facility] Comment on above: Performed By: #### 2 595298, 8977753, 71166464, 431752593, 3162247, 0967211 #### [facility] [address] [place] [address] CO2 [Moles/Vol] 18 mmol/L Low 21-31 [facility] Comment on above: Performed By: #### 2 535081, 6721734, 70956863, 083424738, 1506154, 5938302 #### [facility] [address] [place] [address] Creatinine [Mass/Vol] 0.7 mg/dL Normal 0.5-1.3 [facility] Comment on above: Performed By: #### 2 413035, 4987737, 06836498, 751153420, 3176221, 6888186 #### [facility] [address] [place] [address] Glucose [Mass/Vol] 491 mg/dL Abnormal 55-199 [facility] Comment on above: Result Comment: Crit ical Result verified by repeat analysis\Critical Result [id number] MARTIN AT by CIARA HOWARD And Read Back For Confirmation at: 01/21/2023 17:05:30 If this glucose result represents a fasting glucose, interpretation should refer to the following reference range: 55-99 mg/dL Performed By: #### 2 986176, 4094095, 35715235, 921055454, 1501134, 8583974 #### [facility] [address] [place] [address] Potassium [Moles/Vol] 4.0 mmol/L Normal 3.5-5.3 [facility] Comment on above: Performed By: #### 2 481431, 2017471, 11430486, 217791137, 2304033, 3456270 #### [facility] [address] [place] [address] Sodium [Moles/Vol] 129 mmol/L Low 135-145 [facility] Comment on above: Performed By: #### 2 054535, 0922688, 46183930, 444427798, 3495701, 3957853 #### [facility] [address] [place] [address] Urea nitrogen [Mass/Vol] 23 mg/dL High 5-21 [facility] Comment on above: Performed By: #### 2 614857, 5938201, 01499357, 240286829, 1446523, 8810059 #### [facility] [address] [place] [address] Urea nitrogen/Creatinine [Mass ratio] 33 No Units High 10-20 [facility] Comment on above: Performed By: #### 2 746441, 4832583, 35214626, 603677941, 7119826, 1990743 #### [facility] [address] [place] [address] BOHBon 01-21-2023 Beta hydroxybutyrate [Moles/Vol] 0.86 mmol/L High 0.02-0.27 [facility] Comment on above: Performed By: #### 2 467875, 6979916, 32839177, 195024117, 4720803, 2093857 #### [facility] [address] [place] [address] CBC w/ Auto Diffon 3 Erythrocyte distribution width (RBC) [Ratio] 14.2 % Normal 10.9-14.2 [facility] Comment on above: Performed By: #### 2 551784, 7589847, 69641518, 339633152, 7631172, 3127632 #### [facility] [address] [place] [address] Hematocrit (Bld) [Volume fraction] 41.9 % Normal 34.0-46.0 [facility] Comment on above: Performed By: #### 2 477287, 7173533, 30646036, 122081861, 9960485, 0928743 #### [facility] [address] [place] [address] Hemoglobin (Bld) [Mass/Vol] 14.2 g/dL Normal 12.0-16.0 [facility] Comment on above: Performed By: #### 2 124126, 6791800, 32514164, 554092271, 4283492, 5978083 #### [facility] [address] [place] [address] 39866 MCH (RBC) [Entitic mass] 28.0 pg Normal 27.0-34.0 [facility] Comment on above: Performed By: #### 2 681426, 1276789, 53994462, 617798862, 5757576, 3865576 #### [facility] [address] [place] [address] MCHC (RBC) [Mass/Vol] 33.9 g/dL Normal 31.4-36.0 [facility] Comment on above: Performed By: #### 2 684265, 2674120, 77423539, 259477484, 6852723, 7995775 #### [facility] [address] [place] [address] MCV (RBC) [Entitic vol] 82.6 fL Normal 80.0-100.0 [facility] Comment on above: Performed By: #### 2 861527, 3764131, 47840215, 181697212, 1325134, 4150702 #### [facility] [address] [place] [address] Platelet mean volume (Bld) [Entitic vol] 8.8 fL Normal 6.4-10.8 [facility] Comment on above: Performed By: #### 2 443111, 9341727, 88703284, 566593006, 4231977, 1172373 #### [facility] [address] [place] [address] Platelets (Bld) [#/Vol] 240.0 E9/L Normal 150.0-500.0 [facility] Comment on above: Performed By: #### 2 602671, 2332062, 50020368, 426274316, 5174396, 7719429 #### [facility] [address] [place], [place] [address] RBC (Bld) [#/Vol] 5.1 E12/L Normal 4.3-5.9 [facility] Comment on above: Performed By: #### 2 527628, 4513395, 64858484, 354773406, 5836840, 8367019 #### [facility] [address] [place] [address]272 WBC corrected for nucl RBC Auto (Bld) [#/Vol] 14.2 E9/L High 4.0-11.0 [facility] Comment on above: Performed By: #### 2 274849, 7943768, 38293392, 599543858, 5074087, 5178197 #### [facility] [address] [place] [address] CHEMISTRYOrdered By: SYSTEM SYSTEM on 01-21-2023 Troponin I.cardiac [Mass/Vol] 467.70 pg/mL Invalid Interpretation Code 10.10 - 27.10 pg/mL [facility] Comment on above: Result Comment: Crit ical Result verified by previous result\ Critical Result I_hsTnI:467.7 Called to ROSSY MOE at 3N by VERONIQUE REID and read back for confirmation at 01/21/2023 23:51:39 Anion gap [Moles/Vol] 14 mmol/L Normal 6 - 16 mEq/L [facility] Beta hydroxybutyrate [Moles/Vol] 0.86 mmol/L High 0.02 - 0.27 mmol/L [facility] Calcium [Mass/Vol] 9.0 mg/dL Normal 8.9 - 11. 1 mg/dL [facility] Chloride [Moles/Vol] 101 mmol/L Normal 101 - 1 11 mmol/L [facility] CO2 [Moles/Vol] 18 mmol/L Low 21 - 31 mmol/L [facility] Creatinine [Mass/Vol] 0.7 mg/dL Normal 0.5 - 1.3 mg/dL [facility] GFR/1.73 sq M.predicted among non-blacks MDRD (S/P/Bld) [Vol rate/Area] 109 mL/min/1.73 m2 Normal >=59mL/min/1. 73 m2 [facility] Chem S Glucose [Mass/Vol] 491 mg/dL Invalid Interpretation Code 55 - 199 mg/dL [facility] Comment on above: Result Comment: Crit ical Result verified by repeat analysis\Critical Result [id number] MARTIN AT ER by CIARA HOWARD And Read Back For Confirmation at: 01/21/2023 17:05:30 Potassium [Moles/Vol] 4.0 mmol/L Normal 3.5 - 5.3 mmol/L [facility] Sodium [Moles/Vol] 129 mmol/L Low 135 - 145 mmol/L [facility] Urea nitrogen [Mass/Vol] 23 mg/dL High 5 - 21 mg/dL [facility] Urea nitrogen/Creatinine [Mass ratio] 33 mg/mg High 10 - 20 [facility] Consent for Treatmenton 01-01 Consent for Treatment [id number] 30 [id number]#[id number]:127 Normal [facility] ED Clinical Summaryon 2022 ED Clinical Summary [address] [address] ED Clinical Summary Person Information Name: ESCOBAR NASH [place] Age: 43 Years : 1980 Sex: Female Language: [place] PCP: Gentry Wolf MD Marital Status: Phone: [phone] Visit Id: Visit Reason: Chest pain; CHEST PAIN Speciality: Acuity: 3 Enc Type: Observation Med Service: Medical Arrival: 01/21/2023 16:19:22 Discharge: LOS: 000 03:20 Checkin: 01/21/2023 16:19:22 Checkout: 01/21/2023 19:39:40 Dispo Type: Admitted as IP to this [facility] EVENTS: Event Name Event Status Request Date/Time Start Date/Time Complete Date/Time Arrive Complete 01/21/2023 16:19:22 01/21/2023 16:19:22 01/21/2023 16:19:22 Document Home Meds Request 01/21/2023 16:19:22 Triage Complete 01/21/2023 16:19:22 01/21/2023 16:25:50 01/21/2023 16:25:50 EKG Complete 01/21/2023 16:20:44 01/21/2023 16:24:21 Pending Labs Request 01/21/2023 16:23:00 Lab Complete 01/21/2023 16:23:00 01/21/2023 18:08:00 Urine Collect Complete 01/21/2023 16:23:00 01/21/2023 18:08:00 X-Ray Complete 01/21/2023 16:23:00 01/21/2023 16:46:54 01/21/2023 16:53:26 Bed Assign Complete 01/21/2023 16:24:21 01/21/2023 16:24:21 01/21/2023 16:24:21 Dr Exam Complete 01/21/2023 16:24:21 01/21/2023 16:49:54 01/21/2023 16:49:54 RN Exam Complete 01/21/2023 16:24:21 01/21/2023 17:10:28 01/21/2023 17:10:28 Pending Labs Complete 01/21/2023 16:39:32 01/21/2023 16:39:32 01/21/2023 17:05:41 Lab Complete 01/21/2023 16:39:32 01/21/2023 16:39:32 01/21/2023 17:05:41 Pending Labs Complete 01/21/2023 16:43:05 01/21/2023 16:43:05 01/21/2023 16:43:11 Lab Complete 01/21/2023 16:43:05 01/21/2023 16:43:05 01/21/2023 16:43:11 Registration Complete 01/21/2023 16:49:54 01/21/2023 16:53:26 01/21/2023 17:06:23 Wet Read Request 01/21/2023 16:53:26 Meds Admin Complete 01/21/2023 17:06:03 01/21/2023 17:44:56 Reg Complete Request 01/21/2023 17:06:23 Reg Bed Request Complete 01/21/2023 17:06:23 01/21/2023 17:06:23 01/21/2023 17:06:23 Pending Labs Cancel 01/21/2023 17:08:15 01/21/2023 17:12:41 Meds Admin Complete 01/21/2023 17:09:35 01/21/2023 17:26:48 Pending Labs Complete 01/21/2023 17:13:04 01/21/2023 17:13:04 01/21/2023 17:32:27 Consult Request 01/21/2023 17:38:33 Hospitalist Consult Request 01/21/2023 17:38:33 Meds Admin Request 01/21/2023 19:02:42 Patient Care Request 01/21/2023 19:02:42 Pending Labs Request 01/21/2023 19:02:42 Lab Request 01/21/2023 19:02:42 Patient Care Request 01/21/2023 19:08:52 Meds Admin Request 01/21/2023 19:08:52 Pending Labs Request 01/21/2023 19:08:52 Lab Request 01/21/2023 19:08:52 RT Request 01/21/2023 19:08:52 Bed Request Request 01/21/2023 19:08:52 Reg Bed Request Complete 01/21/2023 19:08:52 01/21/2023 19:12:00 01/21/2023 19:12:00 Admit Request 01/21/2023 19:08:52 Consult Request 01/21/2023 19:08:52 Echo Request 01/21/2023 19:08:52 Meds Admin Request 01/21/2023 19:11:53 Patient Care Request 01/21/2023 19:12:00 Patient Care Request 01/21/2023 19:12:00 Patient Care Request 01/21/2023 19:12:01 Patient Care Request 01/21/2023 19:12:01 Meds Admin Request 01/21/2023 19:13:12 ADDRESS: [address] [place] [address] [phone] [facility] DOC NOTES: MEDICAL INFORMATION: Prescriptions Given: Medications to Continue with No Changes Other Medications acetaminophen-hydroc odone (Vicodin 500mg-5mg Tab) 1 Tablets By Mouth every 4 hours as needed for pain. Refills: 0. PATIENT EDUCATION INFORMATION: Instructions: Follow up: With: Address: When: Gentry Wolf [address] [place] [address], [facility] [place] [phone] Business (1) In 3 days DIAGNOSIS: 1:Chest pain; 2:Elevated troponin; 3:Hypertensive urgency; 4:Right shoulder pain; 5:Leukocytosis; 6:Hyperglycemia; 7:Hyponatremia; 8:Metabolic acidosis; 9:HTN (hypertension); 10:Diabetes mellitus; 11:Obese; 12:On deep vein thrombosis (DVT) prophylaxis Normal [facility] ED Note-Physicianon 01-22-20 ED Note-Physician Basic Information Time Seen: Daisy Campos M.D. 01/21/2023 16:49 Chief Complaint pt states just seen for arm pain, given rx steroid. 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 The patient states the chest pain started prior to the arrival. She was sitting at rest. The patient describes the pain as tightness. She states she had an episode that lasted 20 minutes and resolved after aspirin given by EMS. The patient states the tightness started again just now. She is complaining of pain on the right arm on and off since November. She states she was seen at [facility] yesterday and given steroids. The patient states that she thought she was going to get sick when she was on the phone with EMS but she did not felt nauseated. She denies any shortness of breath. Denies any sweating. Denies any dizziness or lightheadedness. The patient denies any other associated symptoms. Review of Systems Additional ROS info: Except as noted in the above Review of Systems and in the History of Present Illness all other systems have been reviewed and are negative or noncontributory. Physical Exam Vitals & Measurements T: 36.6 ?C(Oral) HR: 66(Monitored) RR: 15 BP: 146/81 SpO2: 98% HT: 165 cm WT: 83 kg BMI: 30.49 General: alert, no acute distress Skin: warm, dry Head: no trauma, normocephalic Neck: Trachea midline Eye: normal conjunctiva, sclera clear Cardiovascular: regular rate and rhythm Respiratory: Lungs CTA, respirations non labored, breath sounds equal Gastrointestinal: soft, non distended, no tenderness, no guarding Extremities: no deformity, no trauma Neurological: Alert and oriented, speech normal, no focal neuro deficits Psychiatric: cooperative, affect appropriate for age, Procedure Heart Score for Major Cardiac Event History: Example factors for history - pattern of chest pain, onset, duration, relation with exercise, stress or cold, localization, concominant symptoms. reaction to sublingual nitrates, [] Highly suspicious +2 [x] Moderately suspicious +1 [] Slightly suspicious 0 EKG: [] Significant ST-Depression +2 [] Non specific repolarization disturbance +1 [x] Normal 0 Age: [] >= 65 +2 [x] 45-65 + 1 [] <45 0 Risk Factors: (HLD, HTN, DM, Cigarette Smoking, Pos Family Hx, Obesity) [x] >3 risk factors or hx of atheroslerotic disease + 2 [] 1-2 risk factors + 1 [] No risk factors known 0 Troponin: [x] >= 3X normal + 2 [] 1-3X normal + 1 [] <= Normal 0 [] 0-3 Points 0.9 - 1.7% risk of major adverse cardiac event in 6 weeks [x] 4-6 Points 12-16.6% risk of major adverse cardiac event in 6 weeks [] 7-10 Points 50-65% risk of major adverse cardiac event in 6 weeks [] 0-3 Points with 2 sets of negative cardiac markers <1% risk of major adverse cardiac event in 30 days. Medical Decision Making MEDICAL DECISION MAKING Number and Complexity of Problems Differential Diagnosis: [] [facility] Data External documents reviewed: [] My EKG interpretation: [] My CT interpretation: [] My X-ray interpretation: [] My Ultrasound interpretation: [] Decision rules/scores evaluated: [] Discussed with: Hospitalist Treatment and Disposition ED Course: The patient presented with chest pain. Her heart score is 6. EKG is normal. Blood work reviewed. The patient has elevated troponin. Her blood pressure is elevated. The patient is noncompliant with her blood pressure medication. She does have history of diabetes. Blood glucose is elevated. Gap is normal. The patient's CO2 is 18. The chest x-ray shows no acute cardiopulmonary disease. The patient has received aspirin from EMS. She was given 3 nitroglycerin sublingual and her pain improved. Blood pressure improved as well. Possible troponin is due to accelerated blood pressure. Possible non-STEMI. The case is discussed with the hospitalist and the patient will be admitted to the hospital for further evaluation. Shared decision making: [] Code status: [] Critical Care Time: 40 minutes billable from other separate procedures Assessment/Plan 1. Hypertensive urgency (I16.0: Hypertensive urgency) 2. Chest pain (R07.9: Chest pain, unspecified) 3. Elevated troponin (R77.8: Other specified abnormalities of plasma proteins) 4. Right shoulder pain (M25.511: Pain in right shoulder) 5. Leukocytosis (D72.829: Elevated white blood cell count, unspecified) 6. Hyperglycemia (R73.9: Hyperglycemia, unspecified) 7. Hyponatremia (E87.1: Hypo-osmolality and hyponatremia) 8. Metabolic acidosis (E87.20: Acidosis, unspecified) 9. HTN (hypertension) (I10: Essential (primary) hypert (more content not included)... Normal [facility] Comment on above: Result Comment: Elec tronically Signed By: Andres Mejia, Daisy Blair\.br\Date and Time Signed: 01/21/23 19:01 EDT ED Patient Education Noteon 01-21-2023 ED Patient Education Note Normal [facility] ED Patient Summaryon 023 ED Patient Summary [place] [address] Patient Discharge Instructions Person Information Name: ESCOBAR NASH Age: 43 Years Arrival Date: 01/21/2023 16:19:22 Discharge Diagnosis: 1:Chest pain; 2:Elevated troponin; 3:Hypertensive urgency; 4:Right shoulder pain; 5:Leukocytosis; 6:Hyperglycemia; 7:Hyponatremia; 8:Metabolic acidosis; 9:HTN (hypertension); 10:Diabetes mellitus; 11:Obese; 12:On deep vein thrombosis (DVT) prophylaxis Primary Care Physician: Gentry Wolf MD Provider Information Primary Provider: Andres Mejia, Daisy Blair Advanced Equity Structurer:None The exam and treatment you received in the Emergency Department were for an urgent problem and are not intended as complete care. It is important that you follow up with a doctor, nurse practitioner, or physician?s phlebotomist lab assistant for ongoing care. If your symptoms become worse or you do not improve as expected and you are unable to reach your usual health care provider, you should return to the Emergency Department. We are available 24 hours a day. ESCOBAR NASH has been given the following list of patient education materials, prescriptions and follow-up instructions: Follow-up Instructions: With: Address: When: Gentry Wolf [facility] [facility], [address] [place] [phone] Business (1) In 3 days In the event that this physician does not participate in your insurance network, please consult with your insurance company to find a nearby participating provider. Patient Education Materials: A MESSAGE TO ALL PATIENTS REGARDING OPIOIDS PRESCRIPTION OPIOIDS: WHAT YOU NEED TO KNOW Prescription opioids can be used to help relieve wkxchxdr-yc-udzzsf pain and are often prescribed following a surgery or injury, or for certain health conditions. These medications can be an important part of the treatment but also come with serious risks. It is important to work with your healthcare provider to make sure you are getting the safest, most effective care. WHAT ARE THE RISKS AND SIDE EFFECTS OF OPIOID USE? Prescription opioids carry serious risks of addiction and overdose, especially with prolonged use. An opioid overdose, often marked by slowed breathing, can cause sudden . The use of prescription opioids can have a number of side effects as well, even when taken as directed: ? Tolerance?meaning you might need to take more of the medication for the same pain relief ? Physical dependence?meaning you have symptoms of withdrawal when a medication is stopped ? Increased sensitivity to pain ? Constipation ? Nausea, vomiting, and dry mouth ? Sleepiness and dizziness ? Confusion ? Depression ? Low levels of testosterone that can result in lower sex drive, energy, and strength ? Itching and sweating RISKS ARE GREATER WITH: ? History of drug misuse, substance use disorder, or overdose ? Mental health conditions (such as depression or anxiety) ? Sleep apnea ? Older age (65 years and older) ? Avoid alcohol while taking prescription opioids. Also, unless specifically advised by your health care provider, medications to avoid include: ? Benzodiazepines (such as Xanax or Valium) ? Muscle relaxants (such as Soma or Flexeril) ? Hypnotics (such as Ambien or Lunesta) ? Other prescription opioids KNOW YOUR OPTIONS Talk to your health care provider about ways to manage your pain that don?t involve prescription opioids. Some of these options may actually work better and have fewer risks and side effects. Options may include: ? Pain relievers such as acetaminophen, ibuprofen, and naproxen ? Some medication that are also used for depression or seizures ? Physical therapy and exercise ? Cognitive behavioral therapy, a psychological, goal-directed approach, in which patients learn how to modify physical, behavioral, and emotional triggers of pain and stress. IF YOU ARE PRESCRIBED OPIOIDS FOR PAIN: ? Never take opioids in greater amounts or more often than prescribed. ? Follow up with your primary health care provider. o Work together to create a plan on how to manage your pain. o Talk about ways to help manage your pain that don?t involve prescription opioids. o Talk about any and all concerns and side effects. ? Help prevent misuse and abuse o Never sell or share prescription opioids. o Never use another person?s prescription opioids. ? Store prescription opioids in a secure place and out of reach of others (this may include visitors, children, friends, and family). ? Safely dispose of unused prescription opioids: Find your community drug take-back program or your pharmacy mail-back program, or flush them down the toilet, following guidance from the Food and Drug Administration (www.fda.gov/Drugs/R esourcesForYou). ? Visit www.cdc.gov/drugover dose to learn about the risks of opioids abuse and overdo (more content not included)... Normal [facility] HEMATOLOGYOrdered By: SYSTEM SYSTEM on 01-21-2023 Basophils/100 WBC (Bld) 0.3 % Normal 0.0 - 2.0 % [facility] HemeAutoSS Basophils/Leukocytes Auto (Bld) [Pure # fraction] 0.0 E9/L Normal 0.0 - 0.2 E9/L [facility]eAutoSS Eosinophils/100 WBC (Bld) 0.1 % Normal 0.0 - 8.0 % [facility] HemeAutoSS Eosinophils/Leukocyte s Auto (Bld) [Pure # fraction] 0.0 E9/L Normal 0.0 - 0.5 E9/L [facility]eAutoSS Lymphocytes/100 WBC (Bld) 8.6 % Low 14.0 - 50.0 % [facility] HemeAutoSS Lymphocytes/Leukocyte s Auto (Bld) [Pure # fraction] 1.2 E9/L Normal 1.0 - 4.0 E9/L [facility]eAutoSS Monocytes/100 WBC (Bld) 4.8 % Normal 4.0 - 14.0 % [facility] HemeAutoSS Monocytes/Leukocytes Auto (Bld) [Pure # fraction] 0.7 E9/L Normal 0.2 - 1.0 E9/L [facility]AutoSS Neutrophils/100 WBC (Bld) 86.2 % High 36.0 - 75.0 % [facility] HemeAutoSS Neutrophils/Leukocyte s Auto (Bld) [Pure # fraction] 12.3 E9/L High 2.0 - 7.5 E9/L [facility] HEMATOLOGYOrdered By: Radha Clay on 01-21-2023 Erythrocyte distribution width (RBC) [Ratio] 14.2 % Normal 10.9 - 14.2 % [facility] Hematocrit (Bld) [Volume fraction] 41.9 % Normal 34.0 - 46.0 % [facility]eAuto[facility] Hemoglobin (Bld) [Mass/Vol] 14.2 g/dL Normal 12.0 - 16.0 gm/dL [facility] MCH (RBC) [Entitic mass] 28.0 pg Normal 27.0 - 34.0 pg [facility] MCHC (RBC) [Mass/Vol] 33.9 g/dL Normal 31.4 - 36.0 gm/dL [facility] MCV (RBC) [Entitic vol] 82.6 fL Normal 80.0 - 100.0 fL [facility] Platelet mean volume (Bld) [Entitic vol] 8.8 fL Normal 6.4 - 10.8 fL [facility]Auto[facility] Platelets (Bld) [#/Vol] 240.0 E9/L Normal 150.0 - 500.0 E9/L [facility] RBC (Bld) [#/Vol] 5.1 E12/L Normal 4.3 - 5.9 E12/L [facility] WBC corrected for nucl RBC Auto (Bld) [#/Vol] 14.2 E9/L High 4.0 - 11.0 E9/L [facility]Auto[facility] Monitor Recordon 01-21-2023 Monitor Record [id number] 8#1.00CD:127 Normal [facility] Monitor Record [id number] 5#1.00CD:127 Normal [facility] Troponin 0 Hr.on 01-21-2023 Troponin I.cardiac [Mass/Vol] 201.10 pg/mL Abnormal 10.10-27.10 [facility] Comment on above: Result Comment: Crit ical Result I_hsTnI:201.[address] MARTIN at ER by CIARA HOWARD and read back for confirmation at 01/21/2023 17:29:22\Critical Result verified by repeat analysis The 95% CI (Confidence Interval) PPV (Positive Predictive Value) for myocardial infarction in females is 38 pg/mL, in males 51 pg/mL. The results should be used in conjunction with clinical conditions of myocardial infarction. (Jellyvision High Sensitivity Troponin I Instructions For Use, Route4Me, March 2018) Performed By: #### 2 [id number], [id number] #### [facility] [address] [place] [address] Troponin 3 Hr.on 01-21-2023 Troponin I.cardiac [Mass/Vol] 258.00 pg/mL Abnormal 10.10-27.10 [facility] Comment on above: Order Comment: pt no t yet in room from er as of [id number] 01/21/2023 19:37:18 EDT Result Comment: Crit ical Result verified by previous result\ Critical Result I_hsTnI:258.0 Called to ROSSY MOE at 3N by VERONIQUE REID and read back for confirmation at 01/21/2023 20:57:49 The 95% CI (Confidence Interval) PPV (Positive Predictive Value) for myocardial infarction in females is 38 pg/mL, in males 51 pg/mL. The results should be used in conjunction with clinical conditions of myocardial infarction. (Jellyvision High Sensitivity Troponin I Instructions For Use, Route4Me, March 2018) Performed By: #### 1 [id number] #### [facility] [address] [place] [address] UA With Cult Reflexon 2022 Bilirubin Ql (U) Negative Normal Negative [facility] Comment on above: Performed By: #### 1 [id number] ####[facility] [address] [place] [address] Clarity (U) CLEAR Normal Clear [facility] Comment on above: Performed By: #### 1 [id number] ####[place] [address] [place] [address] Color (U) STRAW Abnormal Yellow [facility] Comment on above: Performed By: #### 1 [id number] ####[address] [address] Epithelial cells.squamous LM.HPF (Urine sed) [#/Area] 0-2 Normal 0-2 [facility] Comment on above: Performed By: #### 1 [id number] ####[address] [address] Glucose Test strip (U) [Mass/Vol] 3+ Abnormal Negative [facility] Comment on above: Performed By: #### 1 [id number] ####[address] [address] Hemoglobin Ql (U) Negative Normal Negative [facility] Comment on above: Performed By: #### 1 [id number] ####[facility] [address] [place] [address] Ketones (U) [Mass/Vol] 1+ Abnormal Negative [facility] Comment on above: Performed By: #### 1 [id number] ####[facility] [address] [place] [address] Nixon.plasma/Lithiu m.RBC (Bld) [Mass ratio] 0-3 Normal 0-3 [facility] Comment on above: Performed By: #### 1 [id number] ####[address] [address] Nitrite Ql (U) Negative Normal Negative [facility] Comment on above: Performed By: #### 1 [id number] ####[address] [address] pH (U) 6.0 [pH] Invalid Interpretation Code 5.0-9.0 [facility] Comment on above: Performed By: #### 1 [id number] ####[address] [address] Protein (U) [Mass/Vol] Negative Normal Negative [facility] Comment on above: Performed By: #### 1 [id number] ####[address] [address] Specific gravity (U) [Rel density] 1.015 Invalid Interpretation Code 1.005-1.030 [facility] Comment on above: Performed By: #### 1 [id number] ####[place] [address] Type of Urine collection method Clean Catch Normal [facility] Comment on above: Performed By: #### 1 [id number] ####[address] [address] Urobilinogen Qn (U) 0.2 {Ankit'U}/dL Normal 0.0-1.0 [facility] Comment on above: Performed By: #### 1 [id number] ####[address] [address] WBC Auto Ql (U) Negative Normal Negative [facility] Comment on above: Performed By: #### 1 [id number] ####[address] [address] WBC LM.HPF (Urine sed) [#/Area] 0-5 Normal 0-5 [facility] Comment on above: Performed By: #### 1 [id number] ####[address] [address] URINALYSISOrdered By: Rogelio Tiwari on 01-21-2023 Bilirubin Ql (U) Negative (01/21/23 5:53 PM) Normal Negative [facility] UA Auto SS Clarity (U) Clear (01/21/23 5:53 PM) Normal Clear [facility] UA Auto SS Color (U) Straw *ABN* (01/21/23 5:53 PM) Invalid Interpretation Code Yellow [facility] UA Auto SS Epithelial cells.squamous LM.HPF (Urine sed) [#/Area] 0-2 /HPF Normal 0-2/HPF [facility] UA Aut o SS Glucose Test strip (U) [Mass/Vol] 3+ *ABN* (01/21/23 5:53 PM) Invalid Interpretation Code Negative [facility] UA Auto SS Hemoglobin Ql (U) Negative (01/21/23 5:53 PM) Normal Negative [facility] UA Auto SS Ketones (U) [Mass/Vol] 1+ *ABN* (01/21/23 5:53 PM) Invalid Interpretation Code Negative [facility] UA Auto SS Nixon.plasma/Lithiu m.RBC (Bld) [Mass ratio] 0-3 /HPF Normal 0-3/HPF [facility] UA Auto SS Nitrite Ql (U) Negative (01/21/23 5:53 PM) Normal Negative [facility] UA Auto SS pH (U) 6.0 *NA* (01/21/23 5:53 PM) Invalid Interpretation Code 5.0 - 9.0 [facility] UA Auto SS Protein (U) [Mass/Vol] Negative (01/21/23 5:53 PM) Normal Negative [facility] UA Auto SS Specific gravity (U) [Rel density] 1.015 *NA* (01/21/23 5:53 PM) Invalid Interpretation Code 1.005 - 1.030 [facility] UA Auto SS UA Spec Desc Clean Catch (01/21/23 5:53 PM) Normal [facility] UA Auto SS Urobilinogen Qn (U) 0.1778214 {Ankit'U}/dL Normal 0.0 - 1.0 EU/dL [facility] UA Auto SS WBC Auto Ql (U) Negative (01/21/23 5:53 PM) Normal Negative [facility] UA Auto SS WBC LM.HPF (Urine sed) [#/Area] 0-5 /HPF Normal 0-5/HPF [facility] UA Auto SS eGFRon 01-21-2023 GFR/1.73 sq M.predicted among non-blacks MDRD (S/P/Bld) [Vol rate/Area] 109 mL/min/1.73 m2 Normal >=59 [facility] Comment on above: Order Comment: Order Added by Discern Expert. 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 Kidney failure is indicated at less than 15 mL/min/1.73m2. Performed By: #### 2 [id number], [id number], [id number], [id number], [id number], [id number] #### [facility] [address] [place] [address] Consent for Treatmenton 11-30 Consent for Treatment [id number] #1.00CD:127 Normal [facility] Discharge Instructionson Discharge Instructions [id number] 1#1.00CD:127 Normal [facility] ED Clinical Summaryon 2022 ED Clinical Summary [address] [address] ED Clinical Summary Person Information Name: ESCOBAR NASH [facility] Age: 42 Years : 1980 Sex: Female Language: [place] Arabian PCP: Gentry Wolf MD Marital Status: Phone: [phone] Visit Id: Visit Reason: Foot pain-swelling; RIGHT TOE PAIN, BLACK AND BLUE Speciality: Acuity: 4 Enc Type: Emergency Med Service: Emergency Arrival: 12/12/2022 07:19:23 Discharge: 12/12/2022 08:15:00 LOS: 000 00:56 Checkin: 12/12/2022 07:19:23 Checkout: 12/12/2022 08:15:00 Dispo Type: Home (Routine DC) EVENTS: Event Name Event Status Request Date/Time Start Date/Time Complete Date/Time Arrive Complete 12/12/2022 07:19:23 12/12/2022 07:19:23 12/12/2022 07:19:23 Document Home Meds Request 12/12/2022 07:19:23 Triage Complete 12/12/2022 07:19:23 12/12/2022 07:28:00 12/12/2022 07:28:00 Bed Assign Complete 12/12/2022 07:23:01 12/12/2022 07:23:01 12/12/2022 07:23:01 Dr Exam Complete 12/12/2022 07:23:01 12/12/2022 07:33:43 12/12/2022 07:33:43 RN Exam Complete 12/12/2022 07:23:01 12/12/2022 07:29:34 12/12/2022 07:29:34 Registration Complete 12/12/2022 07:33:43 12/12/2022 07:39:38 12/12/2022 07:39:38 X-Ray Cancel 12/12/2022 07:38:16 12/12/2022 07:38:37 X-Ray Complete 12/12/2022 07:38:37 12/12/2022 07:42:22 12/12/2022 07:59:22 Reg Complete Request 12/12/2022 07:39:38 Reg Bed Request Complete 12/12/2022 07:39:38 12/12/2022 07:39:38 12/12/2022 07:39:38 Wet [place] Request 12/12/2022 07:59:22 Discharge Complete 12/12/2022 08:08:20 12/12/2022 08:15:04 12/12/2022 08:15:04 Transfer Complete 12/12/2022 08:15:04 12/12/2022 08:15:04 12/12/2022 08:15:04 ADDRESS: [address] [phone] [facility] DOC NOTES: MEDICAL INFORMATION: Prescriptions Given: Medications to Continue with No Changes Other Medications acetaminophen-hydroc odone (Vicodin 500mg-5mg Tab) 1 Tablets By Mouth every 4 hours as needed for pain. Refills: 0. PATIENT EDUCATION INFORMATION: Instructions: Foot Contusion Follow up: With: Address: When: Nelson [facility] - [facility], [place], [facility] [address], [place] [address] 0 Business (1) In 3 days 12/15/2022 Comments: Call the office of the package lift operator on Wednesday and arrange for evaluation of the toe. With: Address: When: Gentry Wolf [address] [facility], [address] [place] [phone] Business (1) In 3 days 12/15/2022 Comments: Call the office of your primary care doctor to arrange for follow-up within the above-stated timeframe. Follow-up with your primary care doctor about this ED visit. You should review your labs, imaging, and diagnoses from this ED visit with your primary care physician. There are occasionally non-emergent findings that require additional follow-up after your ED visit. If you were prescribed medications you should discuss possible side-effects and drug interactions with your pharmacist. Call 911 or go to the nearest Emergency Department if you develop any new or worsening symptoms. Watch for signs of infection including redness, warmth, increased swelling or development of fever sweats chills. We would expect typical pattern of bruise resolution including the area of bruising turning purple than yellow. If the toe starts to become black or the bruising worsens come back to the emergency department for evaluation. Return if there becomes an open wound or you develop discharge from the toe. DIAGNOSIS: Toe contusion Normal [facility] ED Note-Physicianon 12-13-19 ED Note-Physician Basic Information Time Seen: Pako Metzger DO 12/12/2022 07:33 Chief Complaint patient c/o swelling and bruising in 4th toe on right foot. states that she does not know what caused it. states that she has undiagnosed neuropathy- denies pain in foot (08/11) History of Present Illness 42-year-old female to the emergency department with chief complaint of bruise on the top of her fourth toe on the right foot. She reports that she has neuropathy and is unsure if she injured it. She denies any discomfort. She reports she is otherwise at her baseline health. She denies any fever, sweats, chills. She denies having any problems with her feet other than the neuropathy. She reports the neuropathy is secondary to diabetes. Review of Systems A 10 point review of systems is negative except as noted above. Medical and Surgical History: Reviewed and noted Social history: Lives at home Tobacco: Denies Physical Exam Vitals & Measurements T: 36.8 ?C(Oral) HR: 91(Peripheral) RR: 18 BP: 170/103 SpO2: 97% HT: 165.10 cm WT: 98 kg BMI: 35.95 VITALS: I have reviewed the triage vital signs. GENERAL: Well developed, well appearing adult in no acute distress. NEURO: Alert and oriented. Moves all extremities. Face is symmetric and expressive. EYES: PERRL. No scleral icterus or conjunctival injection. No discharge. HENT: Normocephalic, atraumatic. Hearing is grossly intact. Nares grossly patent and without discharge. Mucous membranes moist. NECK: No JVD. Patient moves neck without restriction. Right lower Extremity: DP and PT pulses intact. Limb is similar color and temperature to the contralateral limb. No swelling. Trace amount of ecchymosis at the base of the fourth toe. No deformity of the toe. Cap refill intact in the toe. No erythema, warmth, swelling to the toe. There are no wounds to the toe. Sensation is intact over the foot and lower leg. SKIN: Warm and dry. Normal turgor. No rash or lesions appreciated. PSYCH: Mood, affect, and interaction is appropriate to the setting. Medical Decision Making 42-year-old female to the emergency department with chief complaint of small bruise at the base of the fourth toe on the right foot. She has neuropathy and is unsure if she injured it. She does not recall dropping anything on it. Foot itself is vascularly intact. Digit with small amount of ecchymosis overlying the MTP. There is no redness or warmth. It does not appear infected. It does not appear ischemic. Exam is consistent with ecchymosis likely from contusion. X-rays ordered and is with no acute findings. Discussed with the patient. Discussed diagnostic uncertainty given no reported injury. Does appear to be missed traumatic injury by exam. We discussed diagnostic uncertainty. We discussed signs that she may need to return as it may be something more serious. We discussed follow-up with podiatry. Patient agrees with this plan. Return precautions were discussed. All questions were answered. The patient was discharged home. Assessment/Plan Toe contusion (S90.129A: Contusion of unspecified lesser toe(s) without damage to nail, initial encounter) Orders: XR Toe(s) Min 2 Views Right Disposition Plan Patient Discharge Condition Stable Discharge Disposition Home Discharge Prescription List Prescriptions No active prescription medications Follow-up With When Contact Information Nelson Meade In 3 days 12/15/2022 EDT [facility] [place] [address] [place] [address]- 5 Business (1) Additional Instructions: Call the office of the package lift operator on Wednesday and arrange for evaluation of the toe. Gentry Wolf In 3 days 12/15/2022 EDT [address] [facility] [place] [address] [place] [address]- Business (1) Additional Instructions: Call the office of your primary care doctor to arrange for follow-up within the above-stated timeframe. Follow-up with your primary care doctor about this ED visit. You should review your labs, imaging, and diagnoses from this ED visit with your primary care physician. There are occasionally non-emergent findings that require additional follow-up after your ED visit. If you were prescribed medications you should discuss possible side-effects and drug interactions with your pharmacist. Call 911 or go to the nearest Emergency Department if you develop any new or worsening symptoms. Watch for signs of infection including redness, warmth, increased swelling or development of fever sweats chills. We would expect typical pattern of bruise resolution including the area of bruising turning purple than yellow. If the toe starts to become black or the bruising worsens come back to the emergency department for evaluation. Return if there becomes an open wound or you develop discharge from the toe. Patient Education Foot Contusion Problem List/Past Medical History Ongoing No qualifying data Historical gall blader removed Medications Inpatient No active inp (more content not included)... Normal [facility] Comment on above: Result Comment: Elec tronically Signed By: Pako Metzger DO\.brenna\Date and Time Signed: 12/12/22 08:25 EDT ED Patient Education Noteon 12-12-2022 ED Patient Education Note Orthopedics Foot Contusion A foot contusion is a deep bruise to the foot. Contusions are the result of an injury to tissues and muscle fibers under the skin. The injury causes bleeding under the skin. The skin over the contusion may turn blue, purple, or yellow. Minor injuries will cause a painless contusion, but more severe contusions may stay painful and swollen for a few weeks. What are the causes? This condition is usually caused by a hard hit or direct force to your foot, such as having a heavy object fall on your foot. What are the signs or symptoms? Symptoms of this condition include: ? Swelling of the foot. ? Pain and tenderness of the foot. ? Discoloration of the foot. The area may have redness and then turn blue, purple, or yellow. How is this diagnosed? This condition may be diagnosed based on: ? Your medical history. ? A physical exam. In some cases, imaging tests may be done to check for other injuries. These may include: ? An X-ray to check for broken bones (fractures). ? CT scan or MRI to check for torn or injured ligaments. How is this treated? In general, the best treatment for a foot contusion is rest, ice, pressure (compression), and elevation. This is often called RICE therapy. An elastic wrap may be recommended to support your foot. Ovcm-vtl-eelmqzo anti-inflammatory medicines may also be recommended for pain control. If your swelling or pain is severe, you may be given crutches. Follow these instructions at home: RICE therapy ? Rest the injured area. Try to avoid standing or walking while your foot is painful. ? If directed, put ice on the injured area. ? Put ice in a plastic bag. ? Place a towel between your skin and the bag. ? Leave the ice on for 20 minutes, 2?3 times a day. ? If directed, apply light compression to the injured area using an elastic wrap. Make sure the wrap is not too tight. Remove and reapply the wrap as told by your health care provider. If your toes become numb, cold, or blue, take the wrap off and reapply it more loosely. ? Raise (elevate) the injured area above the level of your heart while you are sitting or lying down. General instructions ? Take ydde-hec-pdagzrg and prescription medicines only as told by your health care provider. ? Use crutches as told by your health care provider, if this applies. Do not use the injured foot to support your body weight until your health care provider says that you can. ? Do not use any products that contain nicotine or tobacco, such as cigarettes, e-cigarettes, and chewing tobacco. These can delay healing. If you need help quitting, ask your health care provider. ? Keep all follow-up visits as told by your health care provider. This is important. Contact a health care provider if: ? Your symptoms do not improve after several days of treatment. ? You have redness, swelling, or pain in your foot or toes. ? You have difficulty moving the injured area. ? Your swelling or pain is not relieved with medicines. Get help right away if: ? You have severe pain. ? Your foot or toes become numb. ? Your foot or toes become pale or cold. ? You cannot move your foot or ankle. ? Your foot is warm to the touch. Summary ? A foot contusion is a deep bruise to the foot. ? This condition is usually caused by a hard hit or direct force to your foot. ? Symptoms include swelling, pain, and discoloration in the injured area. ? In general, the best treatment for a foot contusion is rest, ice, pressure (compression), and elevation. This information is not intended to replace advice given to you by your health care provider. Make sure you discuss any questions you have with your health care provider. Document Revised: 10/22/2021 Document Reviewed: 10/22/2021 [employer] Patient Education ? 2022 [employer] Normal [facility] ED Patient Summaryon 023 ED Patient Summary [place] [id number] Patient Discharge Instructions Person Information Name: ESCOBAR NASH Age: 42 Years Arrival Date: 12/12/2022 07:19:23 Discharge Diagnosis: Toe contusion Primary Care Physician: Gentry Wolf MD Provider Information Primary Provider: Pako Metzger DO Advanced Equity Structurer:None The exam and treatment you received in the Emergency Department were for an urgent problem and are not intended as complete care. It is important that you follow up with a doctor, nurse practitioner, or physician?s phlebotomist lab assistant for ongoing care. If your symptoms become worse or you do not improve as expected and you are unable to reach your usual health care provider, you should return to the Emergency Department. We are available 24 hours a day. ESCOBAR NASH has been given the following list of patient education materials, prescriptions and follow-up instructions: Follow-up Instructions: With: Address: When: Nelson HENSLEY [facility], [place], [address], [place] [address] 0 Business (1) In 3 days 12/15/2022 Comments: Call the office of the package lift operator on Wednesday and arrange for evaluation of the toe. With: Address: When: Gentry Wolf [address] [place] [address], [address] [place], [place] [id number] Business (1) In 3 days 12/15/2022 Comments: Call the office of your primary care doctor to arrange for follow-up within the above-stated timeframe. Follow-up with your primary care doctor about this ED visit. You should review your labs, imaging, and diagnoses from this ED visit with your primary care physician. There are occasionally non-emergent findings that require additional follow-up after your ED visit. If you were prescribed medications you should discuss possible side-effects and drug interactions with your pharmacist. Call 911 or go to the nearest Emergency Department if you develop any new or worsening symptoms. Watch for signs of infection including redness, warmth, increased swelling or development of fever sweats chills. We would expect typical pattern of bruise resolution including the area of bruising turning purple than yellow. If the toe starts to become black or the bruising worsens come back to the emergency department for evaluation. Return if there becomes an open wound or you develop discharge from the toe. In the event that this physician does not participate in your insurance network, please consult with your insurance company to find a nearby participating provider. Patient Education Materials: Foot Contusion A MESSAGE TO ALL PATIENTS REGARDING OPIOIDS PRESCRIPTION OPIOIDS: WHAT YOU NEED TO KNOW Prescription opioids can be used to help relieve veqgjmxr-si-abrshv pain and are often prescribed following a surgery or injury, or for certain health conditions. These medications can be an important part of the treatment but also come with serious risks. It is important to work with your healthcare provider to make sure you are getting the safest, most effective care. WHAT ARE THE RISKS AND SIDE EFFECTS OF OPIOID USE? Prescription opioids carry serious risks of addiction and overdose, especially with prolonged use. An opioid overdose, often marked by slowed breathing, can cause sudden . The use of prescription opioids can have a number of side effects as well, even when taken as directed: ? Tolerance?meaning you might need to take more of the medication for the same pain relief ? Physical dependence?meaning you have symptoms of withdrawal when a medication is stopped ? Increased sensitivity to pain ? Constipation ? Nausea, vomiting, and dry mouth ? Sleepiness and dizziness ? Confusion ? Depression ? Low levels of testosterone that can result in lower sex drive, energy, and strength ? Itching and sweating RISKS ARE GREATER WITH: ? History of drug misuse, substance use disorder, or overdose ? Mental health conditions (such as depression or anxiety) ? Sleep apnea ? Older age (65 years and older) ? Avoid alcohol while taking prescription opioids. Also, unless specifically advised by your health care provider, medications to avoid include: ? Benzodiazepines (such as Xanax or Valium) ? Muscle relaxants (such as Soma or Flexeril) ? Hypnotics (such as Ambien or Lunesta) ? Other prescription opioids KNOW YOUR OPTIONS Talk to your health care provider about ways to manage your pain that don?t involve prescription opioids. Some of these options may actually work better and have fewer risks and side effects. Options may include: ? Pain relievers such as acetaminophen, ibuprofen, and naproxen ? Some medication that are also used for depression or seizures ? Physical therapy and exercise ? Cognitive behavioral therapy, a psychological, goal-directed (more content not included)... Normal [facility] XR Toe(s) Min 2 Views Righto n 12-12-2022 XR Toe(s) Min 2 Views Right Exam Date/Time: 12/12/2022 07:59 EDT Reason for Exam: Pain, Traumatic Report IMPRESSION: NO ACUTE OSSEOUS ABNORMALITY. EXAMINATION: XR Toe(s) Min 2 Views Right HISTORY: Toe pain. Toe bruising. COMPARISON: None available TECHNIQUE: AP, lateral, and oblique views of the fourth toe of the right foot FINDINGS: No acute fracture or dislocation. Soft tissue edema of the fourth toe. No radiopaque soft tissue foreign body. Ordering Provider: Pako Metzger FINAL REPORT Dictated: 12/12/2022 9:57 am Melchor Wagner DO Signed (Electronic Signature): 12/12/2022 9:57 am Signed by: Melchor Wagner DO Transcribed by: AZIZA Technologist: ZORA Technical Comments Radiation Dose: davina Becker in mGy = na DAP = na Normal [facility] PAP ACOG PANEL 2: 30 to 65on 06-22-2022 . . Normal [facility] Comment on above: Result Comment: Perf ormed at: WB Performed By: #### L AURELIANO DRIVER, CMP #### [facility] [address] [address] [address] Neisha Araiza Age Gdln ACOG Testing 30-65 Normal [facility] Comment on above: Performed By: #### L AURELIANO DRIVER, CMP #### [facility] [address] [place] [address] [address] Neisha Araiza DIAGNOSIS: Comment Normal [facility] Comment on above: Result Comment: NEGA TIVE FOR INTRAEPITHELIAL LESION OR MALIGNANCY. Performed at: WB Performed By: #### L AURELIANO DRIVER, CMP #### [facility] [address] [place] [address] [address] Neisha Araiza HPV Aptima Negative Normal Negative [facility] Comment on above: Result Comment: This nucleic acid amplification test detects fourteen high-risk HPV types (16,18,31,33,35,39,45,51,52,56,58,59,66,68) without differentiation. Performed at: =G Performed By: #### L AURELIANO DRIVER, CMP #### [facility] [address] [place] [address] Dr. Neisha Araiza HPV Genotype Reflex Comment Normal [facility] Comment on above: Result Comment: Crit eria not met, HPV Genotype not performed. Performed at: WB Performed By: #### L AURELIANO DRIVER, CMP #### [facility] [address] [place] [address] Dr. Neisha Araiza Methodology: Comment [facility] Comment on above: Result Comment: This liquid based ThinPrep(R) pap test was screened with the use of an image guided system. Performed at: WB Performed By: #### L AURELIANO DRIVER, CMP #### [facility] [address] [place] [address] Dr. Neisha Araiza Note: Comment Normal [facility] Comment on above: Result Comment: The Pap smear is a screening test designed to aid in the detection of premalignant and malignant conditions of the uterine cervix. It is not a diagnostic procedure and should not be used as the sole means of detecting cervical cancer. Both false-positive and false-negative reports do occur. . Performed at: WB Performed By: #### L AURELIANO DRIVER, CMP #### [facility] [address] [place], [place] [address] Dr. Neisha Araiza Performed by: Comment Normal [facility] Comment on above: Result Comment: Tisha Sanders, Casino Enforcement Agent (ASCP) Performed at: WB Performed By: #### L AURELIANO DRIVER, CMP #### [facility] [address] [place] [address] [address] Neisha Araiza Specimen adequacy: Comment Normal [facility] Comment on above: Result Comment: Sati sfactory for evaluation. Endocervical and/or squamous metaplastic cells (endocervical component) are present. Performed at: WB Performed By: #### L AURELIANO DRIVER, CMP #### [facility] [address] [place] [address] [address] Neisha Araiza Covid-19 PCR ([facility])on 04-03 SARS-CoV-2 (COVID-19) RNA TIM+probe Ql (Unsp spec) Not detected Normal NOT DETECTED [facility] Comment on above: Result Comment: This test is not yet approved or cleared by the [place] FDA. When there are no FDA-approved or cleared tests available, and other criteria are met, FDA can make tests available under an emergency access mechanism called an Emergency Use Authorization (EUA). The EUA for this test is supported by the [place] of Health and Human Service's (HHS's) declaration that circumstances exist to justify the emergency use of in vitro diagnostics for the detection and/or diagnosis of the virus that causes COVID-19. This EUA will remain in effect (meaning this test can be used) for the duration of the COVID-19 declaration justifying emergency of IVDs, unless it is terminated or revoked by FDA (after which the test may no longer be used). When diagnostic testing is negative, the possibility of a false negative should be considered in the context of a patient's recent exposures and the presence of clinical signs and symptoms consistent with SARS-CoV-2. Performed By: #### C BC #### [facility] [address] [place] [address] Dr. Neisha Araiza Covid-19 PCR ([facility])on 04-03 SARS-CoV-2 (COVID-19) RNA TIM+probe Ql (Unsp spec) Not detected Normal NOT DETECTED [facility] Comment on above: Result Comment: This test is not yet approved or cleared by the [place] FDA. When there are no FDA-approved or cleared tests available, and other criteria are met, FDA can make tests available under an emergency access mechanism called an Emergency Use Authorization (EUA). The EUA for this test is supported by the Vendor Analyst of Health and Human Service's (HHS's) declaration that circumstances exist to justify the emergency use of in vitro diagnostics for the detection and/or diagnosis of the virus that causes COVID-19. This EUA will remain in effect (meaning this test can be used) for the duration of the COVID-19 declaration justifying emergency of IVDs, unless it is terminated or revoked by FDA (after which the test may no longer be used). When diagnostic testing is negative, the possibility of a false negative should be considered in the context of a patient's recent exposures and the presence of clinical signs and symptoms consistent with SARS-CoV-2. Performed By: #### C BC #### [facility] [address] [place] [address] Dr. Neisha Araiza CHLAMYDIA/GONOCOCCUS TIM (SW AB/URINE/PAPon 04-17-2022 Chlamydia trachomatis, TIM Negative Normal Negative [facility] Comment on above: Performed By: #### C BC #### [facility] [address] [place] [address] Dr. Neisha Araiza Neisseria gonorrhoeae, TIM Negative Normal Negative [facility] Comment on above: Performed By: #### C BC #### [facility] [address] [place] [address] Dr. Neisha Araiza VAGINITIS/VAGINOSIS DNA PROB [employer] 04-16-2022 Val species Positive Abnormal Negative [facility] Comment on above: Performed By: #### L IPA, AURELIANO, CMP #### [facility] [address] [place] [address] Dr. Neisha Araiza Gardnerella vaginalis Positive Abnormal Negative [facility] Comment on above: Performed By: #### L IPA, AURELIANO, CMP #### [facility] [address] [place] [address] Dr. Neisha Araiza Trichomonas vaginalis Negative Normal Negative [facility] Comment on above: Performed By: #### L IPA, AURELIANO, CMP #### [facility] [address] [place] [address] Dr. Neisha Araiza AMYLASEon 01-05-2022 Amylase [Catalytic activity/Vol] 20 U/L Critically low 25-115 [facility] Comment on above: Performed By: #### C BC #### [facility] [address] [place] [address] Dr. Neisha Araiza CBC AUTO DIFFon 01-05-2022 BASO # 0.0 103/ul Normal 0.0-0.1 [facility] Comment on above: Performed By: #### C BC #### [facility] [address] [place] [address] Dr. Neisha Araiza Basophils/100 WBC (Bld) 0.6 % Normal 0.2-2.0 [facility] Comment on above: Performed By: #### C BC #### [facility] [address] [place] [address] Dr. Neisha Araiza EO # 0.1 103/ul Normal 0.0-0.7 [facility] Comment on above: Performed By: #### C BC #### [facility] [address] [place] [address] Dr. Neisha Araiza Eosinophils/100 WBC (Bld) 0.7 % Critically low 0.9-7.0 [facility] Comment on above: Performed By: #### C BC #### [facility] [address] [place] [address] Dr. Neisha Araiza Erythrocyte distribution width (RBC) [Ratio] 13.5 % Normal 11.0-15.0 [facility] Comment on above: Performed By: #### C BC #### [facility] [address] [place] [address] Dr. Neisha Araiza Hematocrit (Bld) [Volume fraction] 35.3 % Critically low 36.0-48.0 [facility] Comment on above: Performed By: #### C BC #### [facility] [address] [place] [address] Dr. Neisha Araiza Hemoglobin (Bld) [Mass/Vol] 11.8 g/dL Critically low 12.0-16.0 [facility] Comment on above: Performed By: #### C BC #### [facility] [address] [place] [address] Dr. Neisha Araiza IG # 0.02 10e3/ul Normal 0.00-0.03 [facility] Comment on above: Performed By: #### C BC #### [facility] [address] [place] [address] Dr. Neisha Araiza IG % 0.3 % Normal 0.0-0.5 [facility] Comment on above: Performed By: #### C BC #### [facility] [address] [place] [address] Dr. Neisha Araiza LYMPH # 2.3 103/ul Normal 1.2-3.8 [facility] Comment on above: Performed By: #### C BC #### [facility] [address] [place] [address] Dr. Neisha Araiza Lymphocytes/100 WBC (Bld) 33.2 % Normal 20.5-60.0 [facility] Comment on above: Performed By: #### C BC #### [facility] [address] [place] [address] Dr. Neisha Araiza MANUAL DIFF REQ NO Normal [facility] Comment on above: Performed By: #### C BC #### [facility] [address] [place] [address] Dr. Neisha Araiza MCH (RBC) [Entitic mass] 29.1 pg Normal 26.7-34.0 [facility] Comment on above: Performed By: #### C BC #### [facility] [address] [place] [address] Dr. Neisha Araiza MCHC (RBC) [Mass/Vol] 33.4 g/dL Normal 29.9-35.2 [facility] Comment on above: Performed By: #### C BC #### [facility] [address] [place] [address] [address] Neisha Araiza MCV (RBC) [Entitic vol] 86.9 fL Normal 81.0-99.0 [facility] Comment on above: Performed By: #### C BC #### [facility] [address] [place] [address] [address] Neisha Araiza MONO # 0.6 103/ul Normal 0.3-0.8 [facility] Comment on above: Performed By: #### C BC #### [facility] [address] [place] [address] [address] Neisha Araiza Monocytes/100 WBC (Bld) 8.6 % Normal 1.7-12.0 [facility] Comment on above: Performed By: #### C BC #### [facility] [address] [place] [address] [address] Neisha Araiza NEUT # 3.9 103/ul Normal 1.4-6.5 [facility] Comment on above: Performed By: #### C BC #### [facility] [address] [place] [address] [address] Neisha Araiza Neutrophils/100 WBC (Bld) 56.6 % Normal 43.0-75.0 [facility] Comment on above: Performed By: #### C BC #### [facility] [address] [address] [address] Neisha Araiza Platelet mean volume (Bld) [Entitic vol] 9.5 fL Normal 9.5-13.5 [facility] Comment on above: Performed By: #### C BC #### [facility] [address] [address] [address] Neisha Araiza PLT 200 103/ul Normal 150-450 [facility] Comment on above: Performed By: #### C BC #### [facility] [address] [place] [address] [address] Neisha Araiza RBC 4.06 106/ul Critically low 4.20-5.40 [facility] Comment on above: Performed By: #### C BC #### [facility] [address] [place] [address] Dr. Neisha Araiza WBC 7.0 103/ul Normal 4.0-11.0 [facility] Comment on above: Performed By: #### C BC #### [facility] [address] [place] [address] Dr. Neisha Araiza LIPASEon 01-05-2022 Lipase [Catalytic activity/Vol] 133.0 U/L Normal 73.0-393.0 [facility] Comment on above: Performed By: #### C BC #### [facility] [address] [place] [address] Dr. Neisha Araiza POINT OF CARE GLUCOSEon Glucose [Mass/Vol] 240 mg/dL Critically high -106 [facility] Comment on above: Performed By: #### P OCGLUC #### [facility] [address] [place] [address] Dr. Neisha Araiza Glucose [Mass/Vol] 240 mg/dL Critically high -106 [facility] Comment on above: Performed By: #### L IPA, AURELIANO, CMP #### [facility] [address] [place] [address] Dr. Neisha Araiza PROF 14(COMP METB)on 022 Albumin [Mass/Vol] 2.3 g/dL Critically low 3.4-5.0 [facility] Comment on above: Performed By: #### C BC #### [facility] [address] [place] [address] Dr. Neisha Araiza Albumin/Globulin [Mass ratio] 0.8 {ratio} Normal [facility] Comment on above: Performed By: #### C BC #### [facility] [address] [place] [address] Dr. Neisha Araiza ALP [Catalytic activity/Vol] 78 U/L Normal 46-116 [facility] Comment on above: Performed By: #### C BC #### [facility] [address] [place] [address] Dr. Neisha Araiza ALT [Catalytic activity/Vol] 21 U/L Normal 14-59 [facility] Comment on above: Performed By: #### C BC #### [facility] [address] [address] [address] Neisha Araiza Anion gap [Moles/Vol] 15.2 mmol/L Normal [facility] Comment on above: Performed By: #### C BC #### [facility] [address] [address] [address] Neisha Araiza AST [Catalytic activity/Vol] 20 U/L Normal 15-37 [facility] Comment on above: Performed By: #### C BC #### [facility] [address] [address] [address] Neisha Araiza Bilirubin [Mass/Vol] 0.8 mg/dL Normal 0.2-1.0 [facility] Comment on above: Performed By: #### C BC #### [facility] [address] [address] [address] Neisha Araiza Calcium [Mass/Vol] 7.5 mg/dL Critically low 8.5-10.1 [facility] Comment on above: Performed By: #### C BC #### [facility] [address] [address] [address] Neisha Araiza Chloride [Moles/Vol] 105 mmol/L Normal 98-107 [facility] Comment on above: Performed By: #### C BC #### [facility] [address] [address] [address] Neisha Araiza CO2 [Moles/Vol] 19.2 mmol/L Critically low 21.0-32.0 [facility] Comment on above: Performed By: #### C BC #### [facility] [address] [address] [address] Neisha Araiza Creatinine [Mass/Vol] 0.59 mg/dL Normal 0.55-1.02 [facility] Comment on above: Performed By: #### C BC #### [facility] [address] [address] [address] Neisha Araiza EGFR-AF BOTSWANAN >60 Normal >=60 [facility] Comment on above: Performed By: #### C BC #### [facility] [address] [address] [address] Neisha Araiza EGFR-NON AF BOTSWANAN >60 Normal >=60 [facility] Comment on above: Performed By: #### C BC #### [facility] [address] [address] [address] Neisha Araiza Globulin (S) [Mass/Vol] 2.9 g/dL Normal [facility] Comment on above: Performed By: #### C BC #### [facility] [address] [address] [address] Neisha Araiza Glucose [Mass/Vol] 240 mg/dL Critically high 74-106 [facility] Comment on above: Performed By: #### C BC #### [facility] [address] [address] [address] Neisha Araiza Potassium [Moles/Vol] 3.4 mmol/L Critically low 3.5-5.1 [facility] Comment on above: Performed By: #### C BC #### [facility] [address] [address] [address] Neisha Araiza Protein [Mass/Vol] 5.2 g/dL Critically low 6.4-8.2 [facility] Comment on above: Performed By: #### C BC #### [facility] [address] [place] [address] Dr. Neisha Araiza Sodium [Moles/Vol] 136 mmol/L Normal 136-145 [facility] Comment on above: Performed By: #### C BC #### [facility] [address] [address] [address] Neisha Araiza Urea nitrogen [Mass/Vol] 9.0 mg/dL Normal 7.0-18.0 [facility] Comment on above: Performed By: #### C BC #### [facility] [address] [place] [address] Dr. Neisha Araiza Urea nitrogen/Creatinine [Mass ratio] 15.3 mg/mg Normal [facility] Comment on above: Performed By: #### C BC #### [facility] [address] [place] [address] Dr. Neisha [facility] MODE ROOM AIR Normal [facility] Comment on above: Performed By: #### C BC #### [facility] [address] [place] [address] Dr. Neisha Araiza ALLENS TEST Positive Normal [facility] Comment on above: Performed By: #### C BC #### [facility] [address] [address] [address] Neisha Araiza Base excess Calc (Bld) [Moles/Vol] -10.34057 mmol/L Critically low -2.0-2.0 [facility] Comment on above: Performed By: #### C BC #### [facility] [address] [place] [address] Dr. Neisha Araiza BIPAP PRESSURE [facility] Comment on above: Performed By: #### C BC #### [facility] [address] [place] [address] Dr. Neisha Araiza CO2 [Moles/Vol] 29.0 mmol/L Critically high 23.0-28.0 [facility] Comment on above: Performed By: #### C BC #### [facility] [address] [place] [address] Dr. Neisha Araiza CPAP [facility] Comment on above: Performed By: #### C BC #### [facility] [address] [place] [address] Dr. Neisha Araiza FIO2 Normal [facility] Comment on above: Performed By: #### C BC #### [facility] [address] [place] [address] Dr. Neisha Araiza HCO3 (Bld) [Moles/Vol] 17.9 mmol/L Critically low 22.0-26.0 [facility] Comment on above: Performed By: #### C BC #### [facility] [address] [place] [address] Dr. Neisha Araiza LPM Normal [facility] Comment on above: Performed By: #### C BC #### [facility] [address] [address] [address] Neisha Araiza MINUTE VOLUME Normal [facility] Comment on above: Performed By: #### C BC #### [facility] [address] [address] [address] Neisha Araiza Oxygen (Bld) [Partial pressure] 95.8 mm[Hg] Normal 80.0-100.0 [facility] Comment on above: Performed By: #### C BC #### [facility] [address] [address] [address] Neisha Araiza Oxygen saturation in Blood 98.6 % Normal 95.0-100.0 [facility] Comment on above: Performed By: #### C BC #### [facility] [address] [place] [address] Dr. Neisha Araiza PCO2 22.9 mmHg Critically low 35.0-45.0 [facility] Comment on above: Performed By: #### C BC #### [facility] [address] [place] [address] [facility] Comment on above: Performed By: #### C BC #### [facility] [address] [place] [address] Dr. Neisha Araiza pH (Bld) 7.408 [pH] Normal 7.350-7.450 [facility] Comment on above: Performed By: #### C BC #### [facility] [address] [place] [address] Dr. Neisha Araiza PIP [facility] Comment on above: Performed By: #### C BC #### [facility] [address] [place] [address] Dr. Neisha Araiza PS [facility] Comment on above: Performed By: #### C BC #### [facility] [address] [place] [address] Dr. Neisha Araiza PUNCTURE SITE RR [facility] Comment on above: Performed By: #### C BC #### [facility] [address] [place] [address] Dr. Neisha Araiza RATE [facility] Comment on above: Performed By: #### C BC #### [facility] [address] [place] [address] Dr. Neisha Araiza VENT MODE Normal [facility] Comment on above: Performed By: #### C BC #### [facility] [address] [place] [address] Dr. Neisha Araiza [place] Normal [facility] Comment on above: Performed By: #### C BC #### [facility] [address] [place] [address] Dr. Neisha Araiza CBC AUTO DIFFon 01-04-2022 BASO # 0.0 103/ul Normal 0.0-0.1 [facility] Comment on above: Performed By: #### C BC #### [facility] [address] [place] [address] Dr. Neisha Araiza Basophils/100 WBC (Bld) 0.3 % Normal 0.2-2.0 [facility] Comment on above: Performed By: #### C BC #### [facility] [address] [place] [address] Dr. Neisha Araiza EO # 0.0 103/ul Normal 0.0-0.7 [facility] Comment on above: Performed By: #### C BC #### [facility] [address] [place] [address] Dr. Neisha Araiza Eosinophils/100 WBC (Bld) 0.0 % Critically low 0.9-7.0 [facility] Comment on above: Performed By: #### C BC #### [facility] [address] [place] [address] Dr. Neisha Araiza Erythrocyte distribution width (RBC) [Ratio] 13.5 % Normal 11.0-15.0 [facility] Comment on above: Performed By: #### C BC #### [facility] [address] [place] [address] Dr. Neisha Araiza Hematocrit (Bld) [Volume fraction] 39.1 % Normal 36.0-48.0 [facility] Comment on above: Performed By: #### C BC #### [facility] [address] [place] [address] Dr. Neisha Araiza Hemoglobin (Bld) [Mass/Vol] 13.3 g/dL Normal 12.0-16.0 [facility] Comment on above: Performed By: #### C BC #### [facility] [address] [place] [address] Dr. Neisha Araiza IG # 0.05 10e3/ul Critically high 0.00-0.03 [facility] Comment on above: Performed By: #### C BC #### [facility] [address] [place] [address] Dr. Neisha Araiza IG % 0.5 % Normal 0.0-0.5 [facility] Comment on above: Performed By: #### C BC #### [facility] [address] [place] [address] Dr. Neisha Araiza LYMPH # 1.4 103/ul Normal 1.2-3.8 [facility] Comment on above: Performed By: #### C BC #### [facility] [address] [place] [address] Dr. Neisha Araiza Lymphocytes/100 WBC (Bld) 14.8 % Critically low 20.5-60.0 [facility] Comment on above: Performed By: #### C BC #### [facility] [address] [place] [address] Dr. Neisha Araiza MANUAL DIFF REQ NO Normal [facility] Comment on above: Performed By: #### C BC #### [facility] [address] [place] [address] Dr. Neisha Araiza MCH (RBC) [Entitic mass] 28.6 pg Normal 26.7-34.0 [facility] Comment on above: Performed By: #### C BC #### [facility] [address] [place] [address] Dr. Neisha Araiza MCHC (RBC) [Mass/Vol] 34.0 g/dL Normal 29.9-35.2 [facility] Comment on above: Performed By: #### C BC #### [facility] [address] [place] [address] Dr. Neisha Araiza MCV (RBC) [Entitic vol] 84.1 fL Normal 81.0-99.0 [facility] Comment on above: Performed By: #### C BC #### [facility] [address] [place] [address] Dr. Neisha Araiza MONO # 0.6 103/ul Normal 0.3-0.8 [facility] Comment on above: Performed By: #### C BC #### [facility] [address] [place] [address] Dr. Neisha Araiza Monocytes/100 WBC (Bld) 5.8 % Normal 1.7-12.0 [facility] Comment on above: Performed By: #### C BC #### [facility] [address] [place] [address] Dr. Neisha Araiza NEUT # 7.6 103/ul Critically high 1.4-6.5 [facility] Comment on above: Performed By: #### C BC #### [facility] [address] [place] [address] Dr. Neisha Araiza Neutrophils/100 WBC (Bld) 78.6 % Critically high 43.0-75.0 [facility] Comment on above: Performed By: #### C BC #### [facility] [address] [place] [address] Dr. Neisha Araiza Platelet mean volume (Bld) [Entitic vol] 9.9 fL Normal 9.5-13.5 [facility] Comment on above: Performed By: #### C BC #### [facility] [address] [place] [address] Dr. Neisha Araiza PLT 280 103/ul Normal 150-450 [facility] Comment on above: Performed By: #### C BC #### [facility] [address] [place] [address] Dr. Neisha Araiza RBC 4.65 106/ul Normal 4.20-5.40 [facility] Comment on above: Performed By: #### C BC #### [facility] [address] [place] [address] Dr. Neisha Araiza WBC 9.7 103/ul Normal 4.0-11.0 [facility] Comment on above: Performed By: #### C BC #### [facility] [address] [place] [address] Dr. Neisha Araiza Covid-19 PCR ([facility])on SARS-CoV-2 (COVID-19) RNA TIM+probe Ql (Unsp spec) Not detected Normal NOT DETECTED [facility] Comment on above: Result Comment: When diagnostic testing is negative, the possibility of a false negative should be considered in the context of a patient's recent exposures and the presence of clinical signs and symptoms consistent with SARS-CoV-2. This test is not yet approved or cleared by the [place] FDA. When there are no FDA-approved or cleared tests available, and other criteria are met, FDA can make tests available under an emergency access mechanism called an Emergency Use Authorization (EUA). The EUA for this test is supported by the [place] of Health and Human Service's declaration that circumstances exist to justify the emergency use of in vitro diagnostics for the detection and/or diagnosis of the virus that causes COVID-19. This EUA will remain in effect for the duration of the COVID-19 declaration justifying emergency of IVDs, unless it is terminated or revoked by the FDA (after which the test may no longer be used). Performed By: #### C BC #### [facility] [address] [place] [address] Dr. Neisha Araiza POINT OF CARE GLUCOSEon Glucose [Mass/Vol] 215 mg/dL Critically high 74-106 [facility] Comment on above: Performed By: #### L AURELIANO DRIVER, CMP #### [facility] [address] [place] [address] Dr. Neisha Araiza Glucose [Mass/Vol] 187 mg/dL Critically high -106 [facility] Comment on above: Performed By: #### C BC #### [facility] [address] [place] [address] Dr. Neisha Araiza Glucose [Mass/Vol] 240 mg/dL Critically high -106 [facility] Comment on above: Performed By: #### C BC #### [facility] [address] [address] [address] Neisha Araiza Glucose [Mass/Vol] 251 mg/dL Critically high 74-106 [facility] Comment on above: Performed By: #### C BC #### [facility] [address] [place] [address] Dr. Neisha Araiza Glucose [Mass/Vol] 264 mg/dL Critically high 74-106 [facility] Comment on above: Performed By: #### L IPA AURELIANO, CMP #### [facility] [address] [place] [address] Dr. Neisha Araiza PROF 14(COMP METB)on 022 Albumin [Mass/Vol] 2.9 g/dL Critically low 3.4-5.0 [facility] Comment on above: Performed By: #### L IPA AURELIANO, CMP #### [facility] [address] [place] [address] Dr. Neisha Araiza Albumin/Globulin [Mass ratio] 0.9 {ratio} Normal [facility] Comment on above: Performed By: #### L IPA AURELIANO, CMP #### [facility] [address] [place] [address] Dr. Neisha Araiza ALP [Catalytic activity/Vol] 92 U/L Normal 46-116 [facility] Comment on above: Performed By: #### L IPA AURELIANO, CMP #### [facility] [address] [place] [address] Dr. Neisha Araiza ALT [Catalytic activity/Vol] 28 U/L Normal 14-59 [facility] Comment on above: Performed By: #### L IPA AURELIANO, CMP #### [facility] [address] [place] [address] Dr. Neisha Araiza Anion gap [Moles/Vol] 19.9 mmol/L Normal [facility] Comment on above: Performed By: #### L IPA, AURELIANO, CMP #### [facility] [address] [place] [address] Dr. Neisha Araiza AST [Catalytic activity/Vol] 14 U/L Critically low 15-37 [facility] Comment on above: Performed By: #### L IPA AURELIANO, CMP #### [facility] [address] [address] [address] Neisha Araiza Calcium [Mass/Vol] 7.8 mg/dL Critically low 8.5-10.1 [facility] Comment on above: Performed By: #### L IPA, AURELIANO, CMP #### [facility] [address] [address] [address] Neisha Araiza Chloride [Moles/Vol] 102 mmol/L Normal 98-107 [facility] Comment on above: Performed By: #### L IPA AURELIANO, CMP #### [facility] [address] [address] [address] Neisha Araiza CO2 [Moles/Vol] 17.7 mmol/L Critically low 21.0-32.0 [facility] Comment on above: Performed By: #### L IPA AURELIANO, CMP #### [facility] [address] [place] [address] Dr. Neisha Araiza Creatinine [Mass/Vol] 0.60 mg/dL Normal 0.55-1.02 [facility] Comment on above: Performed By: #### L AURELIANO DRIVER, CMP #### [facility] [address] [place] [address] Dr. Neisha Araiza EGFR-AF BOTSWANAN >60 Normal >=60 [facility] Comment on above: Performed By: #### L IPA AURELIANO, CMP #### [facility] [address] [place] [address] Dr. Neisha Araiza EGFR-NON AF BOTSWANAN >60 Normal >=60 [facility] Comment on above: Performed By: #### L IPA AURELIANO, CMP #### [facility] [address] [place] [address] Dr. Neisha Araiza Globulin (S) [Mass/Vol] 3.4 g/dL Normal [facility] Comment on above: Performed By: #### L IPA AURELIANO, CMP #### [facility] [address] [place] [address] Dr. Neisha Araiza Glucose [Mass/Vol] 272 mg/dL Critically high 74-106 [facility] Comment on above: Performed By: #### L AURELIANO DRIVER, CMP #### [facility] [address] [address] [address] Neisha Araiza Potassium [Moles/Vol] 3.6 mmol/L Normal 3.5-5.1 [facility] Comment on above: Performed By: #### L AURELIANO DRIVER, CMP #### [facility] [address] [address] [address] Neisha Araiza Protein [Mass/Vol] 6.3 g/dL Critically low 6.4-8.2 [facility] Comment on above: Performed By: #### L AURELIANO DRIVER, CMP #### [facility] [address] [address] [address] Neisha Ariaza Sodium [Moles/Vol] 136 mmol/L Normal 136-145 [facility] Comment on above: Performed By: #### L AURELIANO DRIVER, CMP #### [facility] [address] [address] [address] Neisha Araiza Urea nitrogen [Mass/Vol] 9.0 mg/dL Normal 7.0-18.0 [facility] Comment on above: Performed By: #### L AURELIANO DRIVER, CMP #### [facility] [address] [address] [address] Neisha Araiza Urea nitrogen/Creatinine [Mass ratio] 15.0 mg/mg Normal [facility] Comment on above: Performed By: #### L AURELIANO DRIVER, CMP #### [facility] [address] [place] [address] Dr. Neisha Araiza XR ABD FLAT_UPon 01-04-2022 XR ABD FLAT_UP EXAM: XR ABD FLAT_UP HISTORY: Vomiting COMPARISON: CT abdomen pelvis performed 12/10/2021. TECHNIQUE: 5 views of the abdomen are obtained. FINDINGS: The visualized lung bases are clear. No dilated loops of small or large bowel are evident. No suspicious calcifications or evidence of visceromegaly. Cholecystectomy clips are present. The osseous structures appear normally intact. IMPRESSION: Nonobstructive bowel gas pattern. Electronically authenticated by: MARIAELENA BROWN Date: 2022-01-04 01:26 Normal [facility] ACETONE SERUMon 01-03-2022 ACETONE Negative Normal NEGATIVE [facility] Comment on above: Performed By: #### A CETON #### [facility] [address] [place] [address] Dr. Neisah Araiza ACETONE SMALL Abnormal NEGATIVE [facility] Comment on above: Performed By: #### C BC #### [facility] [address] [place] [address] Dr. Neisha Araiza AMYLASEon 01-03-2022 Amylase [Catalytic activity/Vol] 15 U/L Critically low 25-115 [facility] Comment on above: Performed By: #### L IPA, AURELIANO, CMP #### [facility] [address] [place] [address] Dr. Neisha Araiza CARDIAC BRI ADMITon 022 CK [Catalytic activity/Vol] 44 U/L Normal 26-192 [facility] Comment on above: Performed By: #### L IPA, AURELIANO, CMP #### [facility] [address] [place] [address] Dr. Neisha Araiza CK.MB [Mass/Vol] 0.93 ng/mL Normal <=3.60 [facility] Comment on above: Performed By: #### L IPA, AURELIANO, CMP #### [facility] [address] [place] [address] Dr. Neisha Araiza HSTROP 4.1 pg/mL Normal 4.0-51.3 [facility] Comment on above: Result Comment: CUT- OFF POINTS HAVE BEEN ESTABLISHED BASED ON THE FOURTH UNIVERSAL DEFINITIONS OF MYOCARDIAL INFARCTION. THE UPPER REFERENCE LIMIT (URL) OF TROPONIN, DEFINED THE 99TH PERCENTILE OF cTnI DISTRIBUTION IN A REFERENCE POPULATION, HAS BEEN CONFIRMED THE DECISION THRESHOLD FOR SD DIAGNOSIS. Performed By: #### L IPA, AURELIANO, CMP #### [facility] [address] [place] [address] Dr. Neisha Araiza ROCIO 20 ng/mL Normal 9-82 [facility] Comment on above: Performed By: #### L IPA, AURELIANO, CMP #### [facility] [address] [place] [address] Dr. Neisha Araiza CBC AUTO DIFFon 01-03-2022 Basophils/100 WBC (Bld) 0.3 % Normal 0.2-2.0 [facility] Comment on above: Performed By: #### C BC #### [facility] [address] [place] [address] Dr. Neisha Araiza Hematocrit (Bld) [Volume fraction] 42.7 % Normal 36.0-48.0 [facility] Comment on above: Performed By: #### C BC #### [facility] [address] [place] [address] Dr. Neisha Araiza Hemoglobin (Bld) [Mass/Vol] 14.3 g/dL Normal 12.0-16.0 [facility] Comment on above: Performed By: #### C BC #### [facility] [address] [place] [address] Dr. Neisha Araiza IG # 0.03 10e3/ul Normal 0.00-0.03 [facility] Comment on above: Performed By: #### C BC #### [facility] [address] [place] [address] Dr. Neisha Araiza IG % 0.3 % Normal 0.0-0.5 [facility] Comment on above: Performed By: #### C BC #### [facility] [address] [place] [address] Dr. Neisha Araiza LYMPH # 1.1 103/ul Critically low 1.2-3.8 [facility] Comment on above: Performed By: #### C BC #### [facility] [address] [place] [address] Dr. Neisha Araiza Lymphocytes/100 WBC (Bld) 12.9 % Critically low 20.5-60.0 [facility] Comment on above: Performed By: #### C BC #### [facility] [address] [place] [address] Dr. Neisha Araiza MCHC (RBC) [Mass/Vol] 33.5 g/dL Normal 29.9-35.2 [facility] Comment on above: Performed By: #### C BC #### [facility] [address] [place] [address] Dr. Neisha Araiza MCV (RBC) [Entitic vol] 85.2 fL Normal 81.0-99.0 [facility] Comment on above: Performed By: #### C BC #### [facility] [address] [place] [address] Dr. Neisha Araiza MONO # 0.3 103/ul Normal 0.3-0.8 [facility] Comment on above: Performed By: #### C BC #### [facility] [address] [place] [address] Dr. Neisha Araiza Monocytes/100 WBC (Bld) 3.3 % Normal 1.7-12.0 [facility] Comment on above: Performed By: #### C BC #### [facility] [address] [place] [address] Dr. Neisha Araiza NEUT # 7.3 103/ul Critically high 1.4-6.5 [facility] Comment on above: Performed By: #### C BC #### [facility] [address] [place] [address] Dr. Neisha Araiza Neutrophils/100 WBC (Bld) 83.2 % Critically high 43.0-75.0 [facility] Comment on above: Performed By: #### C BC #### [facility] [address] [place] [address] Dr. Neisha Araiza PLT 281 103/ul Normal 150-450 [facility] Comment on above: Performed By: #### C BC #### [facility] [address] [place] [address] Dr. Neisha Araiza RBC 5.01 106/ul Normal 4.20-5.40 [facility] Comment on above: Performed By: #### C BC #### [facility] [address] [place] [address] Dr. Neisha Araiza WBC 8.8 103/ul Normal 4.0-11.0 [facility] Comment on above: Performed By: #### C BC #### [facility] [address] [place] [address] Dr. Neisha Araiza BASO # 0.0 103/ul Normal 0.0-0.1 [facility] Comment on above: Performed By: #### C BC #### [facility] [address] [place] [address] Dr. Neisha Araiza Performed By: #### A CETON #### [facility] [address] [place] [address] Dr. Neisha Araiza Basophils/100 WBC (Bld) 0.5 % Normal 0.2-2.0 [facility] Comment on above: Performed By: #### A CETON #### [facility] [address] [place] [address] Dr. Neisha Araiza EO # 0.0 103/ul Normal 0.0-0.7 [facility] Comment on above: Performed By: #### C BC #### [facility] [address] [place] [address] Dr. Neisha Araiza Performed By: #### A CETON #### [facility] [address] [place] [address] Dr. Neisha Araiza Eosinophils/100 WBC (Bld) 0.0 % Critically low 0.9-7.0 [facility] Comment on above: Performed By: #### C BC #### [facility] [address] [place] [address] Dr. Neisha Araiza Performed By: #### A CETON #### [facility] [address] [place] [address] Dr. Neisha Araiza Erythrocyte distribution width (RBC) [Ratio] 13.2 % Normal 11.0-15.0 [facility] Comment on above: Performed By: #### C BC #### [facility] [address] [place] [address] Dr. Neisha Araiza Performed By: #### A CETON #### [facility] [address] [place] [address] Dr. Neisha Araiza Hematocrit (Bld) [Volume fraction] 45.8 % Normal 36.0-48.0 [facility] Comment on above: Performed By: #### A CETON #### [facility] [address] [place] [address] Dr. Neisha Araiza Hemoglobin (Bld) [Mass/Vol] 15.6 g/dL Normal 12.0-16.0 [facility] Comment on above: Performed By: #### A CETON #### [facility] [address] [place] [address] Dr. Neisha Araiza IG # 0.05 10e3/ul Critically high 0.00-0.03 [facility] Comment on above: Performed By: #### A CETON #### [facility] [address] [place] [address] Dr. Neisha Araiza IG % 0.6 % Critically high 0.0-0.5 [facility] Comment on above: Performed By: #### A CETON #### [facility] [address] [place] [address] Dr. Neisha Araiza LYMPH # 0.7 103/ul Critically low 1.2-3.8 [facility] Comment on above: Performed By: #### A CETON #### [facility] [address] [place] [address] Dr. Neisha Araiza Lymphocytes/100 WBC (Bld) 8.3 % Critically low 20.5-60.0 [facility] Comment on above: Performed By: #### A CETON #### [facility] [address] [place] [address] Dr. Neisha Araiza MANUAL DIFF REQ NO Normal [facility] Comment on above: Performed By: #### C BC #### [facility] [address] [place] [address] Dr. Neisha Araiza Performed By: #### A CETON #### [facility] [address] [place] [address] Dr. Neisha Araiza MCH (RBC) [Entitic mass] 28.5 pg Normal 26.7-34.0 [facility] Comment on above: Performed By: #### C BC #### [facility] [address] [place] [address] Dr. Neisha Araiza Performed By: #### A CETON #### [facility] [address] [place] [address] Dr. Neisha Araiza MCHC (RBC) [Mass/Vol] 34.1 g/dL Normal 29.9-35.2 [facility] Comment on above: Performed By: #### A CETON #### [facility] [address] [address] [address] Neisha Araiza MCV (RBC) [Entitic vol] 83.7 fL Normal 81.0-99.0 [facility] Comment on above: Performed By: #### A CETON #### [facility] [address] [place] [address] Dr. Neisha Araiza MONO # 0.2 103/ul Critically low 0.3-0.8 [facility] Comment on above: Performed By: #### A CETON #### [facility] [address] [place] [address] Dr. Neisha Araiza Monocytes/100 WBC (Bld) 2.7 % Normal 1.7-12.0 [facility] Comment on above: Performed By: #### A CETON #### [facility] [address] [place] [address] Dr. Neisha Araiza NEUT # 6.9 103/ul Critically high 1.4-6.5 [facility] Comment on above: Performed By: #### A CETON #### [facility] [address] [place] [address] Dr. Neisha Araiza Neutrophils/100 WBC (Bld) 87.9 % Critically high 43.0-75.0 [facility] Comment on above: Performed By: #### A CETON #### [facility] [address] [place] [address] Dr. Neisha Araiza Platelet mean volume (Bld) [Entitic vol] 9.9 fL Normal 9.5-13.5 [facility] Comment on above: Performed By: #### C BC #### [facility] [address] [place] [address] Dr. Neisha Araiza Performed By: #### A CETON #### [facility] [address] [place] [address] Dr. Neisha Araiza PLT 260 103/ul Normal 150-450 [facility] Comment on above: Performed By: #### A CETON #### [facility] [address] [address] [address] Neisha Araiza RBC 5.47 106/ul Critically high 4.20-5.40 [facility] Comment on above: Performed By: #### A CETON #### [facility] [address] [place] [address] Dr. Neisha Araiza WBC 7.8 103/ul Normal 4.0-11.0 [facility] Comment on above: Performed By: #### A CETON #### [facility] [address] [place] [address] Dr. Neisha Araiza LIPASEon 01-03-2022 Lipase [Catalytic activity/Vol] 72.0 U/L Critically low 73.0-393.0 [facility] Comment on above: Performed By: #### L AURELIANO DRIVER, CMP #### [facility] [address] [place] [address] Dr. Neisha Araiza PH VENOUS BLOODon 01-03-2022 PCO2 VENOUS 34.2 mmHg Critically low 40.0-52.0 [facility] Comment on above: Performed By: #### L AURELIANO DRIVER, CMP #### [facility] [address] [place] [address] Dr. Neisha Araiza pH VENOUS 7.370 Normal 7.330-7.430 [facility] Comment on above: Performed By: #### L AURELIANO DRIVER, CMP #### [facility] [address] [place] [address] Dr. Neisha Araiza POINT OF CARE GLUCOSEon Glucose [Mass/Vol] 283 mg/dL Critically high 74-106 [facility] Comment on above: Performed By: #### L AURELIANO DRIVER, CMP #### [facility] [address] [place] [address] Dr. Neisha Araiza Glucose [Mass/Vol] 297 mg/dL Critically high 74-106 [facility] Comment on above: Performed By: #### A CETON #### [facility] [address] [place] [address] Dr. Neisha Araiza PROF 14(COMP METB)on 022 Albumin [Mass/Vol] 3.6 g/dL Normal 3.4-5.0 [facility] Comment on above: Performed By: #### L AURELIANO DRIVER, CMP #### [facility] [address] [address] [address] Neisha Araiza Albumin/Globulin [Mass ratio] 0.8 {ratio} Normal [facility] Comment on above: Performed By: #### L AURELIANO DRIVER, CMP #### [facility] [address] [address] [address] Neisha Araiza ALP [Catalytic activity/Vol] 131 U/L Critically high 46-116 [facility] Comment on above: Performed By: #### L AURELIANO DRIVER, CMP #### [facility] [address] [address] [address] Neisha Araiza ALT [Catalytic activity/Vol] 39 U/L Normal 14-59 [facility] Comment on above: Performed By: #### L AURELIANO DRIVER, CMP #### [facility] [address] [address] [address] Neisha Araiza Anion gap [Moles/Vol] 20.7 mmol/L Normal [facility] Comment on above: Performed By: #### L AURELIANO DRIVER, CMP #### [facility] [address] [address] [address] Neisha Araiza AST [Catalytic activity/Vol] 19 U/L Normal 15-37 [facility] Comment on above: Performed By: #### L AURELIANO DRIVER, CMP #### [facility] [address] [address] [address] Neisha Araiza Calcium [Mass/Vol] 8.9 mg/dL Normal 8.5-10.1 [facility] Comment on above: Performed By: #### L AURELIANO DRIVER, CMP #### [facility] [address] [address] [address] Neisha Araiza Chloride [Moles/Vol] 97 mmol/L Critically low 98-107 [facility] Comment on above: Performed By: #### L IPA, AURELIANO, CMP #### [facility] [address] [address] [address] Neisha Araiza CO2 [Moles/Vol] 19.2 mmol/L Critically low 21.0-32.0 [facility] Comment on above: Performed By: #### L IPA AURELIANO, CMP #### [facility] [address] [place] [address] Dr. Neisha Araiza Creatinine [Mass/Vol] 0.60 mg/dL Normal 0.55-1.02 [facility] Comment on above: Performed By: #### L IPA AURELIANO, CMP #### [facility] [address] [address] [address] Neisha Araiza Globulin (S) [Mass/Vol] 4.3 g/dL Normal [facility] Comment on above: Performed By: #### L NEISHA AURELIANO, CMP #### [facility] [address] [place] [address] Dr. Neisha Araiza Glucose [Mass/Vol] 368 mg/dL Critically high 74-106 [facility] Comment on above: Performed By: #### L NEISHA AURELIANO, CMP #### [facility] [address] [address] [address] Neisha Araiza Protein [Mass/Vol] 7.9 g/dL Normal 6.4-8.2 [facility] Comment on above: Performed By: #### L NEISHA AURELIANO, CMP #### [facility] [address] [address] [address] Neisha Araiza Sodium [Moles/Vol] 133 mmol/L Critically low 136-145 [facility] Comment on above: Performed By: #### L IPA AURELIANO, CMP #### [facility] [address] [place] [address] Dr. Neisha Araiza Urea nitrogen [Mass/Vol] 13.0 mg/dL Normal 7.0-18.0 [facility] Comment on above: Performed By: #### L IPA AURELIANO, CMP #### [facility] [address] [address] [address] Neisha Araiza Urea nitrogen/Creatinine [Mass ratio] 21.7 mg/mg Normal [facility] Comment on above: Performed By: #### L AURELIANO DRIVER, CMP #### [facility] [address] [place] [address] Dr. Neisha Araiza PROF CHEM 8 (BAS METB)on Anion gap [Moles/Vol] 20.2 mmol/L Normal [facility] Comment on above: Performed By: #### L AURELIANO DRIVER, CMP #### [facility] [address] [place] [address] Dr. Neisha Araiza Calcium [Mass/Vol] 8.0 mg/dL Critically low 8.5-10.1 [facility] Comment on above: Performed By: #### L AURELIANO DRIVER, CMP #### [facility] [address] [place] [address] Dr. Neisha Araiza Chloride [Moles/Vol] 102 mmol/L Normal 98-107 [facility] Comment on above: Performed By: #### L AURELIANO DRIVER, CMP #### [facility] [address] [place] [address] Dr. Neisha Araiza CO2 [Moles/Vol] 16.7 mmol/L Critically low 21.0-32.0 [facility] Comment on above: Performed By: #### L AURELIANO DRIVER, CMP #### [facility] [address] [place] [address] Dr. Neisha Araiza Creatinine [Mass/Vol] 0.62 mg/dL Normal 0.55-1.02 [facility] Comment on above: Performed By: #### L AURELIANO DRIVER, CMP #### [facility] [address] [place] [address] Dr. Neisha Araiza Glucose [Mass/Vol] 287 mg/dL Critically high 74-106 [facility] Comment on above: Performed By: #### L AURELIANO DRIVER, CMP #### [facility] [address] [place] [address] Dr. Neisha Araiza Sodium [Moles/Vol] 135 mmol/L Critically low 136-145 [facility] Comment on above: Performed By: #### L AURELIANO DRIVER, CMP #### [facility] [address] [address] [address] Neisha Araiza Urea nitrogen [Mass/Vol] 11.0 mg/dL Normal 7.0-18.0 [facility] Comment on above: Performed By: #### L IPA, AURELIANO, CMP #### [facility] [address] [address] [address] Neisha Araiza Urea nitrogen/Creatinine [Mass ratio] 17.7 mg/mg Normal [facility] Comment on above: Performed By: #### L IPA, AURELIANO, CMP #### [facility] [address] [place] [address] Dr. Neisha Araiza EGFR-AF BOTSWANAN >60 Normal >=60 [facility] Comment on above: Performed By: #### L IPA AURELIANO, CMP #### [facility] [address] [place] [address] Dr. Neisha Araiza EGFR-NON AF BOTSWANAN >60 Normal >=60 [facility] Comment on above: Performed By: #### L NEISHA AURELIANO, CMP #### [facility] [address] [place] [address] Dr. Neisha Araiza Potassium [Moles/Vol] 3.9 mmol/L Normal 3.5-5.1 [facility] Comment on above: Performed By: #### L NEISHA AURELIANO, CMP #### [facility] [address] [place] [address] Dr. Neisha Araiza CBC AUTO DIFFon 12-12-2021 BASO # 0.1 103/ul Normal 0.0-0.1 [facility] Comment on above: Performed By: #### C BC #### [facility] [address] [place] [address] Dr. Neisha Araiza Basophils/100 WBC (Bld) 0.6 % Normal 0.2-2.0 [facility] Comment on above: Performed By: #### C BC #### [facility] [address] [place] [address] Dr. Neisha Araiza EO # 0.0 103/ul Normal 0.0-0.7 [facility] Comment on above: Performed By: #### C BC #### [facility] [address] [place] [address] Dr. Neisha Araiza Eosinophils/100 WBC (Bld) 0.5 % Critically low 0.9-7.0 [facility] Comment on above: Performed By: #### C BC #### [facility] [address] [place] [address] Dr. Neisha Araiza Erythrocyte distribution width (RBC) [Ratio] 12.6 % Normal 11.0-15.0 [facility] Comment on above: Performed By: #### C BC #### [facility] [address] [place] [address] Dr. Neihsa Araiza Hematocrit (Bld) [Volume fraction] 40.7 % Normal 36.0-48.0 [facility] Comment on above: Performed By: #### C BC #### [facility] [address] [place] [address] Dr. Neisha Araiza Hemoglobin (Bld) [Mass/Vol] 14.4 g/dL Normal 12.0-16.0 [facility] Comment on above: Performed By: #### C BC #### [facility] [address] [place] [address] Dr. Neisah Araiza IG # 0.05 10e3/ul Critically high 0.00-0.03 [facility] Comment on above: Performed By: #### C BC #### [facility] [address] [place] [address] Dr. Neisha Araiza IG % 0.6 % Critically high 0.0-0.5 [facility] Comment on above: Performed By: #### C BC #### [facility] [address] [place] [address] Dr. Neisha Araiza LYMPH # 2.3 103/ul Normal 1.2-3.8 [facility] Comment on above: Performed By: #### C BC #### [facility] [address] [place] [address] Dr. Neisha Araiza Lymphocytes/100 WBC (Bld) 26.2 % Normal 20.5-60.0 [facility] Comment on above: Performed By: #### C BC #### [facility] [address] [place] [address] Dr. Neisha Araiza MANUAL DIFF REQ NO Normal [facility] Comment on above: Performed By: #### C BC #### [facility] [address] [place] [address] Dr. Neisha Araiza MCH (RBC) [Entitic mass] 28.4 pg Normal 26.7-34.0 [facility] Comment on above: Performed By: #### C BC #### [facility] [address] [place] [address] Dr. Neisha Araiza MCHC (RBC) [Mass/Vol] 35.4 g/dL Critically high 29.9-35.2 [facility] Comment on above: Performed By: #### C BC #### [facility] [address] [place] [address] Dr. Neisha Araiza MCV (RBC) [Entitic vol] 80.3 fL Critically low 81.0-99.0 [facility] Comment on above: Performed By: #### C BC #### [facility] [address] [place] [address] Dr. Neisha Araiza MONO # 0.5 103/ul Normal 0.3-0.8 [facility] Comment on above: Performed By: #### C BC #### [facility] [address] [place] [address] Dr. Neisha Araiza Monocytes/100 WBC (Bld) 5.5 % Normal 1.7-12.0 [facility] Comment on above: Performed By: #### C BC #### [facility] [address] [place] [address] Dr. Neisha Araiza NEUT # 5.7 103/ul Normal 1.4-6.5 [facility] Comment on above: Performed By: #### C BC #### [facility] [address] [place] [address] Dr. Neisha Araiza Neutrophils/100 WBC (Bld) 66.6 % Normal 43.0-75.0 [facility] Comment on above: Performed By: #### C BC #### [facility] [address] [place] [address] Dr. Neisha Araiza Platelet mean volume (Bld) [Entitic vol] 9.5 fL Normal 9.5-13.5 [facility] Comment on above: Performed By: #### C BC #### [facility] [address] [address] [address] Neisha Araiza PLT 266 103/ul Normal 150-450 [facility] Comment on above: Performed By: #### C BC #### [facility] [address] [place] [address] Dr. Neisha Araiza RBC 5.07 106/ul Normal 4.20-5.40 [facility] Comment on above: Performed By: #### C BC #### [facility] [address] [place] [address] Dr. Neisha Araiza WBC 8.6 103/ul Normal 4.0-11.0 [facility] Comment on above: Performed By: #### C BC #### [facility] [address] [place] [address] Dr. Neisha Araiza POINT OF CARE GLUCOSEon 11-30 Glucose [Mass/Vol] 157 mg/dL Critically high 74-106 [facility] Comment on above: Performed By: #### C BC #### [facility] [address] [place] [address] Dr. Neisha Araiza Glucose [Mass/Vol] 223 mg/dL Critically high 74-106 [facility] Comment on above: Performed By: #### L NEISHA, AURELIANO, CMP #### [facility] [address] [place] [address] Dr. Neisha Araiza PROF 14(COMP METB)on 022 Albumin [Mass/Vol] 3.1 g/dL Critically low 3.4-5.0 [facility] Comment on above: Performed By: #### C BC #### [facility] [address] [place] [address] Dr. Neisha Araiza Albumin/Globulin [Mass ratio] 0.9 {ratio} Normal [facility] Comment on above: Performed By: #### C BC #### [facility] [address] [address] [address] Neisha Araiza ALP [Catalytic activity/Vol] 96 U/L Normal 46-116 [facility] Comment on above: Performed By: #### C BC #### [facility] [address] [address] [address] Neisha Araiza ALT [Catalytic activity/Vol] 28 U/L Normal 14-59 [facility] Comment on above: Performed By: #### C BC #### [facility] [address] [address] [address] Neisha Araiza Anion gap [Moles/Vol] 17.9 mmol/L Normal [facility] Comment on above: Performed By: #### C BC #### [facility] [address] [place] [address] Dr. Neisha Araiza AST [Catalytic activity/Vol] 19 U/L Normal 15-37 [facility] Comment on above: Performed By: #### C BC #### [facility] [address] [place] [address] Dr. Neisha Araiza Bilirubin [Mass/Vol] 1.0 mg/dL Normal 0.2-1.0 [facility] Comment on above: Performed By: #### C BC #### [facility] [address] [place] [address] Dr. Neisha Araiza Calcium [Mass/Vol] 8.1 mg/dL Critically low 8.5-10.1 [facility] Comment on above: Performed By: #### C BC #### [facility] [address] [place] [address] Dr. Neisha Araiza Chloride [Moles/Vol] 95 mmol/L Critically low 98-107 [facility] Comment on above: Performed By: #### C BC #### [facility] [address] [place] [address] Dr. Neisha Araiza CO2 [Moles/Vol] 19.2 mmol/L Critically low 21.0-32.0 [facility] Comment on above: Performed By: #### C BC #### [facility] [address] [place] [address] Dr. Neisha Araiza Creatinine [Mass/Vol] 0.51 mg/dL Critically low 0.55-1.02 [facility] Comment on above: Performed By: #### C BC #### [facility] [address] [place] [address] Dr. Neisha Araiza EGFR-AF BOTSWANAN >60 Normal >=60 [facility] Comment on above: Performed By: #### C BC #### [facility] [address] [address] [address] Neisha Araiza EGFR-NON AF BOTSWANAN >60 Normal >=60 [facility] Comment on above: Performed By: #### C BC #### [facility] [address] [place] [address] Dr. Neisha Araiza Globulin (S) [Mass/Vol] 3.6 g/dL Normal [facility] Comment on above: Performed By: #### C BC #### [facility] [address] [place] [address] Dr. Neisha Araiza Glucose [Mass/Vol] 230 mg/dL Critically high 74-106 [facility] Comment on above: Performed By: #### C BC #### [facility] [address] [place] [address] Dr. Neisha Araiza Potassium [Moles/Vol] 3.1 mmol/L Critically low 3.5-5.1 [facility] Comment on above: Performed By: #### C BC #### [facility] [address] [place] [address] Dr. Neisha Araiza Protein [Mass/Vol] 6.7 g/dL Normal 6.4-8.2 [facility] Comment on above: Performed By: #### C BC #### [facility] [address] [place] [address] Dr. Neisha Araiza Sodium [Moles/Vol] 129 mmol/L Critically low 136-145 Th [facility] Comment on above: Performed By: #### C BC #### [facility] [address] [place] [address] Dr. Neisha Araiza Urea nitrogen [Mass/Vol] 5.0 mg/dL Critically low 7.0-18.0 [facility] Comment on above: Performed By: #### C BC #### [facility] [address] [place] [address] Dr. Neisha Araiza Urea nitrogen/Creatinine [Mass ratio] 9.8 mg/mg Normal [facility] Comment on above: Performed By: #### C BC #### [facility] [address] [place] [address] Dr. Neisha Araiza CBC AUTO DIFFon 12-11-2021 BASO # 0.0 103/ul Normal 0.0-0.1 [facility] Comment on above: Performed By: #### C BC #### [facility] [address] [place] [address] Dr. Neisha Araiza Basophils/100 WBC (Bld) 0.5 % Normal 0.2-2.0 [facility] Comment on above: Performed By: #### C BC #### [facility] [address] [place] [address] Dr. Neisha Araiza EO # 0.0 103/ul Normal 0.0-0.7 [facility] Comment on above: Performed By: #### C BC #### [facility] [address] [place] [address] Dr. Neisha Araiza Eosinophils/100 WBC (Bld) 0.2 % Critically low 0.9-7.0 [facility] Comment on above: Performed By: #### C BC #### [facility] [address] [place] [address] Dr. Neisha Araiza Erythrocyte distribution width (RBC) [Ratio] 12.4 % Normal 11.0-15.0 [facility] Comment on above: Performed By: #### C BC #### [facility] [address] [place] [address] Dr. Neisha Araiza Hematocrit (Bld) [Volume fraction] 39.3 % Normal 36.0-48.0 [facility] Comment on above: Performed By: #### C BC #### [facility] [address] [place] [address] Dr. Neisha Araiza Hemoglobin (Bld) [Mass/Vol] 13.5 g/dL Normal 12.0-16.0 [facility] Comment on above: Performed By: #### C BC #### [facility] [address] [place] [address] Dr. Neisha Araiza IG # 0.04 10e3/ul Critically high 0.00-0.03 [facility] Comment on above: Performed By: #### C BC #### [facility] [address] [place] [address] Dr. Neisha Araiza IG % 0.5 % Normal 0.0-0.5 [facility] Comment on above: Performed By: #### C BC #### [facility] [address] [place] [address] Dr. Neisha Araiza LYMPH # 1.8 103/ul Normal 1.2-3.8 [facility] Comment on above: Performed By: #### C BC #### [facility] [address] [place] [address] Dr. Neisha Araiza Lymphocytes/100 WBC (Bld) 21.7 % Normal 20.5-60.0 [facility] Comment on above: Performed By: #### C BC #### [facility] [address] [place] [address] Dr. Neisha Araiza MANUAL DIFF REQ NO Normal [facility] Comment on above: Performed By: #### C BC #### [facility] [address] [place] [address] Dr. Neisha Araiza MCH (RBC) [Entitic mass] 28.2 pg Normal 26.7-34.0 [facility] Comment on above: Performed By: #### C BC #### [facility] [address] [place] [address] Dr. Neisha Araiza MCHC (RBC) [Mass/Vol] 34.4 g/dL Normal 29.9-35.2 [facility] Comment on above: Performed By: #### C BC #### [facility] [address] [place] [address] Dr. Neisha Araiza MCV (RBC) [Entitic vol] 82.2 fL Normal 81.0-99.0 [facility] Comment on above: Performed By: #### C BC #### [facility] [address] [place] [address] Dr. Neisha Araiza MONO # 0.5 103/ul Normal 0.3-0.8 [facility] Comment on above: Performed By: #### C BC #### [facility] [address] [place] [address] Dr. Neisha Araiza Monocytes/100 WBC (Bld) 6.4 % Normal 1.7-12.0 [facility] Comment on above: Performed By: #### C BC #### [facility] [address] [place] [address] Dr. Neisha Araiza NEUT # 5.7 103/ul Normal 1.4-6.5 [facility] Comment on above: Performed By: #### C BC #### [facility] [address] [place] [address] Dr. Neisha Araiza Neutrophils/100 WBC (Bld) 70.7 % Normal 43.0-75.0 [facility] Comment on above: Performed By: #### C BC #### [facility] [address] [place] [address] Dr. Neisha Araiza Platelet mean volume (Bld) [Entitic vol] 9.4 fL Critically low 9.5-13.5 [facility] Comment on above: Performed By: #### C BC #### [facility] [address] [place] [address] Dr. Neisha Araiza PLT 250 103/ul Normal 150-450 [facility] Comment on above: Performed By: #### C BC #### [facility] [address] [place] [address] Dr. Neisha Araiza RBC 4.78 106/ul Normal 4.20-5.40 [facility] Comment on above: Performed By: #### C BC #### [facility] [address] [place] [address] Dr. Neisha Araiza WBC 8.1 103/ul Normal 4.0-11.0 [facility] Comment on above: Performed By: #### C BC #### [facility] [address] [address] [address] Neisha Araiza POINT OF CARE GLUCOSEon 11-30 Glucose [Mass/Vol] 232 mg/dL Critically high [address] [place] [address] Comment on above: Performed By: #### L AURELIANO DRIVER, CMP #### [facility] [address] [address] [address] Neisha Araiza Glucose [Mass/Vol] 197 mg/dL Critically high [address] [place] [address] Comment on above: Performed By: #### L AURELIANO DRIVER, CMP #### [facility] [address] [place] [address] Dr. Neisha Araiza Glucose [Mass/Vol] 289 mg/dL Critically high [address] [place] [address] Comment on above: Performed By: #### C BC #### [facility] [address] [place] [address] Dr. Neisha Araiza Glucose [Mass/Vol] 200 mg/dL Critically high [address] [place] [address] Comment on above: Performed By: #### A CETON #### [facility] [address] [place] [address] Dr. Neisha Araiza PROF 14(COMP METB)on 022 Albumin [Mass/Vol] 2.9 g/dL Critically low 3.4-5.0 Th [facility] Comment on above: Performed By: #### L AURELIANO DRIVER, CMP #### [facility] [address] [place] [address] Dr. Neisha Araiza Albumin/Globulin [Mass ratio] 0.8 {ratio} Normal [facility] Comment on above: Performed By: #### L AURELIANO DRIVER, CMP #### [facility] [address] [place] [address] Dr. Neisha Araiza ALP [Catalytic activity/Vol] 90 U/L Normal 46-116 [facility] Comment on above: Performed By: #### L NEISHA AURELIANO, CMP #### [facility] [address] [place] [address] Dr. Neisha Araiza ALT [Catalytic activity/Vol] 26 U/L Normal 14-59 [facility] Comment on above: Performed By: #### L AURELIANO DRIVER, CMP #### [facility] [address] [place] [address] Dr. Neisha Araiza Anion gap [Moles/Vol] 17.6 mmol/L Normal [facility] Comment on above: Performed By: #### L AURELIANO DRIVER, CMP #### [facility] [address] [place] [address] Dr. Neisha Araiza AST [Catalytic activity/Vol] 19 U/L Normal 15-37 [facility] Comment on above: Performed By: #### L AURELIANO DRIVER, CMP #### [facility] [address] [place] [address] Dr. Neisha Araiza Bilirubin [Mass/Vol] 0.8 mg/dL Normal 0.2-1.0 [facility] Comment on above: Performed By: #### L AURELIANO DRIVER, CMP #### [facility] [address] [place] [address] Dr. Neisha Araiza Calcium [Mass/Vol] 7.9 mg/dL Critically low 8.5-10.1 [facility] Comment on above: Performed By: #### L AURELIANO DRIVER, CMP #### [facility] [address] [place] [address] Dr. Neisha Araiza Chloride [Moles/Vol] 98 mmol/L Normal 98-107 [facility] Comment on above: Performed By: #### L AURELIANO DRIVER, CMP #### [facility] [address] [place] [address] Dr. Neisha Araiza CO2 [Moles/Vol] 18.6 mmol/L Critically low 21.0-32.0 [facility] Comment on above: Performed By: #### L AURELIANO DRIVER, CMP #### [facility] [address] [place] [address] Dr. Neisha Araiza Creatinine [Mass/Vol] 0.50 mg/dL Critically low 0.55-1.02 [facility] Comment on above: Performed By: #### L AURELIANO DRIVER, CMP #### [facility] [address] [address] [address] Neisha Araiza EGFR-AF BOTSWANAN >60 Normal >=60 [facility] Comment on above: Performed By: #### L AURELIANO DRIVER, CMP #### [facility] [address] [address] [address] Neisha Araiza EGFR-NON AF BOTSWANAN >60 Normal >=60 [facility] Comment on above: Performed By: #### L AURELIANO DRIVER, CMP #### [facility] [address] [address] [address] Neisha Araiza Globulin (S) [Mass/Vol] 3.5 g/dL Normal [facility] Comment on above: Performed By: #### L AURELIANO DRIVER, CMP #### [facility] [address] [address] [address] Neisha Araiza Glucose [Mass/Vol] 195 mg/dL Critically high 74-106 T [facility] Comment on above: Performed By: #### L AURELIANO DRIVER, CMP #### [facility] [address] [place] [address] Dr. Neisha Araiza Potassium [Moles/Vol] 3.2 mmol/L Critically low 3.5-5.1 [facility] Comment on above: Performed By: #### L AURELIANO DRIVER, CMP #### [facility] [address] [place] [address] Dr. Neisha Araiza Protein [Mass/Vol] 6.4 g/dL Normal 6.4-8.2 [facility] Comment on above: Performed By: #### L AURELIANO DRIVER, CMP #### [facility] [address] [place] [address] Dr. Neisha Araiza Sodium [Moles/Vol] 131 mmol/L Critically low 136-145 [facility] Comment on above: Performed By: #### L AURELIANO DRIVER, CMP #### [facility] [address] [place] [address] Dr. Neisha Araiza Urea nitrogen [Mass/Vol] 7.0 mg/dL Normal 7.0-18.0 [facility] Comment on above: Performed By: #### L AURELIANO DRIVER, CMP #### [facility] [address] [place] [address] Dr. Neisha Araiza Urea nitrogen/Creatinine [Mass ratio] 14.0 mg/mg Normal [facility] Comment on above: Performed By: #### L AURELIANO DRIVER, CMP #### [facility] [address] [place] [address] Dr. Neisha Araiza ACETONE SERUMon 12-10-2021 ACETONE SMALL Abnormal NEGATIVE [facility] Comment on above: Performed By: #### L AURELIANO DRIVER, CMP #### [facility] [address] [place] [address] Dr. Neisha Araiza AMYLASEon 12-10-2021 Amylase [Catalytic activity/Vol] 31 U/L Normal 25-115 [facility] Comment on above: Performed By: #### L AURELIANO DRIVER, CMP #### [facility] [address] [place] [address] Dr. Neisha Araiza CBC AUTO DIFFon 12-10-2021 BASO # 0.0 103/ul Normal 0.0-0.1 [facility] Comment on above: Performed By: #### C BC #### [facility] [address] [place] [address] Dr. Neisha Araiza Basophils/100 WBC (Bld) 0.5 % Normal 0.2-2.0 [facility] Comment on above: Performed By: #### C BC #### [facility] [address] [place] [address] Dr. Neisha Araiza EO # 0.0 103/ul Normal 0.0-0.7 [facility] Comment on above: Performed By: #### C BC #### [facility] [address] [place] [address] Dr. Neisha Araiza Eosinophils/100 WBC (Bld) 0.0 % Critically low 0.9-7.0 [facility] Comment on above: Performed By: #### C BC #### [facility] [address] [place] [address] Dr. Neisha Araiza Erythrocyte distribution width (RBC) [Ratio] 12.5 % Normal 11.0-15.0 [facility] Comment on above: Performed By: #### C BC #### [facility] [address] [address] [address] Neisha Araiza Hematocrit (Bld) [Volume fraction] 43.3 % Normal 36.0-48.0 [facility] Comment on above: Performed By: #### C BC #### [facility] [address] [address] [address] Neisha Araiza Hemoglobin (Bld) [Mass/Vol] 15.3 g/dL Normal 12.0-16.0 [facility] Comment on above: Performed By: #### C BC #### [facility] [address] [address] [address] Neisha Araiza IG # 0.06 10e3/ul Critically high 0.00-0.03 [facility] Comment on above: Performed By: #### C BC #### [facility] [address] [address] [address] Nesiha Araiza IG % 0.7 % Critically high 0.0-0.5 [facility] Comment on above: Performed By: #### C BC #### [facility] [address] [address] [address] Neisha Araiza LYMPH # 0.9 103/ul Critically low 1.2-3.8 [facility] Comment on above: Performed By: #### C BC #### [facility] [address] [address] [address] Neisha Araiza Lymphocytes/100 WBC (Bld) 10.8 % Critically low 20.5-60.0 [facility] Comment on above: Performed By: #### C BC #### [facility] [address] [address] [address] Neisha Araiza MANUAL DIFF REQ NO Normal [facility] Comment on above: Performed By: #### C BC #### [facility] [address] [place] [address] Dr. Neisha Araiza MCH (RBC) [Entitic mass] 28.4 pg Normal 26.7-34.0 [facility] Comment on above: Performed By: #### C BC #### [facility] [address] [address] [address] Neisha Araiza MCHC (RBC) [Mass/Vol] 35.3 g/dL Critically high 29.9-35.2 [facility] Comment on above: Performed By: #### C BC #### [facility] [address] [address] [address] Neisha Araiza MCV (RBC) [Entitic vol] 80.3 fL Critically low 81.0-99.0 [facility] Comment on above: Performed By: #### C BC #### [facility] [address] [address] [address] Neisha Araiza MONO # 0.5 103/ul Normal 0.3-0.8 [facility] Comment on above: Performed By: #### C BC #### [facility] [address] [place] [address] Dr. Neisha Araiza Monocytes/100 WBC (Bld) 5.7 % Normal 1.7-12.0 [facility] Comment on above: Performed By: #### C BC #### [facility] [address] [address] [address] Neisha Araiza NEUT # 7.0 103/ul Critically high 1.4-6.5 [facility] Comment on above: Performed By: #### C BC #### [facility] [address] [address] [address] Neisha Araiza Neutrophils/100 WBC (Bld) 82.3 % Critically high 43.0-75.0 [facility] Comment on above: Performed By: #### C BC #### [facility] [address] [address] [address] Neisha Araiza Platelet mean volume (Bld) [Entitic vol] 9.4 fL Critically low 9.5-13.5 [facility] Comment on above: Performed By: #### C BC #### [facility] [address] [address] [address] Neisha Araiza PLT 271 103/ul Normal 150-450 [facility] Comment on above: Performed By: #### C BC #### [facility] [address] [place], [place] [address] Dr. Neisha Araiza RBC 5.39 106/ul Normal 4.20-5.40 [facility] Comment on above: Performed By: #### C BC #### [facility] [address] [place], [place] [address] Dr. Neisha Araiza WBC 8.5 103/ul Normal 4.0-11.0 [facility] Comment on above: Performed By: #### C BC #### [facility] [id number] Neisha Araiza [address] ABD/PELVIS WO CONon 12-10 CT ABD/PELVIS WO CON EXAMINATION: CT ABD/PELVIS WO CON, 12/10/2021 2:09 PM EDT HISTORY: DIARRHEA, UNSPECIFIED , vomiting COMPARISON: None. TECHNIQUE: CT scan of the abdomen and pelvis was performed without IV contrast. CT dose reduction technique was used, including Automated Exposure Control. FINDINGS: LUNG BASES: No visible pulmonary or pleural disease. LIVER: No enlargement, atrophy, abnormal density, or significant focal lesion. BILIARY: Surgical clips from cholecystectomy PANCREAS: No lesion, fluid collection, ductal dilatation, or atrophy. SPLEEN: No enlargement or focal lesion. ADRENALS: No mass or enlargement. KIDNEYS: Normal right. Punctate nonobstructing left nephrolith. BOWEL/MESENTERY: Mild colonic diverticulosis without evidence of acute diverticulitis. Nonobstructive bowel gas pattern. Normal appendix. AORTA/VASCULAR: No aneurysm or dissection. RETROPERITONEUM: No mass or adenopathy. LYMPH NODES: No adenopathy. URINARY BLADDER: No visible focal wall thickening, lesion, or calculus. PELVIC ORGANS: No visible mass. Pelvic organs appropriate for patient age. ABDOMINAL WALL: 2 cm umbilical hernia containing mesenteric fat without strangulation BONES: No bony lesion or fracture. Degenerative changes most significant at L5-S1 OTHER: Negative. IMPRESSION: No acute intraperitoneal abnormality. No obstructive uropathy Electronically authenticated by: MATTHEW SILVER Date: 2021-12-10 14:48 Normal [facility] CULTURE URINEon 12-10-2021 CULTURE URINE Culture Observations: GREATER THAN TWO ORGANISMS PRESENT. PLEASE RESUBMIT CLEAN CATCH MID-STREAM URINE IF CLINICALLY INDICATED. Normal [facility] Comment on above: Performed By: #### A CETON #### [facility] [address] [address] [address] Neisha Araiza Covid-19 PCR ([facility])on 11-30 SARS-CoV-2 (COVID-19) RNA TIM+probe Ql (Unsp spec) Not detected Normal NOT DETECTED [facility] Comment on above: Result Comment: When diagnostic testing is negative, the possibility of a false negative should be considered in the context of a patient's recent exposures and the presence of clinical signs and symptoms consistent with SARS-CoV-2. This test is not yet approved or cleared by the [place] FDA. When there are no FDA-approved or cleared tests available, and other criteria are met, FDA can make tests available under an emergency access mechanism called an Emergency Use Authorization (EUA). The EUA for this test is supported by the [place] of Health and Human Service's declaration that circumstances exist to justify the emergency use of in vitro diagnostics for the detection and/or diagnosis of the virus that causes COVID-19. This EUA will remain in effect for the duration of the COVID-19 declaration justifying emergency of IVDs, unless it is terminated or revoked by the FDA (after which the test may no longer be used). Performed By: #### L AURELIANO DRIVER, CRYSTAL #### [facility] [address] [place] [address] Dr. Neisha Araiza DRUG SCREEN RAPID (URINE)on 12-10-2021 AMP Negative Normal NEGATIVE [facility] Comment on above: Performed By: #### A CETON #### [facility] [address] [place] [address] Dr. Neisha Araiza BAR Negative Normal NEGATIVE [facility] Comment on above: Performed By: #### A CETON #### [facility] [address] [address] [address] Neisha Araiza BUP Negative Normal NEGATIVE [facility] Comment on above: Performed By: #### A CETON #### [facility] [facility] [address] [place] [address] Dr. Neisha Araiza BZO Negative Normal NEGATIVE [facility] Comment on above: Performed By: #### A CETON #### [facility] [address] [place] [address] Dr. Neisha Araiza VIVEK Negative Normal NEGATIVE [facility] Comment on above: Performed By: #### A CETON #### [facility] [address] [place] [address] Dr. Neisha Araiza CUT-OFFS SEE BELOW Normal [facility] Comment on above: Result Comment: AMP (Amphetamine): 500ng/mL, BAR (Barbituates): 200 ng/mL, BZO (Benzodiazepines): 150 ng/mL, BUP (Buprenorphine): 10 ng/mL, VIVEK (Cocaine): 150 ng/mL, mAMP (Methamphetamine): 500 ng/mL, MTD (Methadone): 200 ng/mL, OPI (Opiates): 100 ng/mL, OXY (Oxycodone): 100 ng/mL, PCP (Phencyclidine): 25 ng/mL, PPX (Propoxyphene): 300 ng/mL, THC (Cannabinoids): 50 ng/mL, TCA (Trycyclic Antidepressants): 300 ng/mL Performed By: #### A CETON #### [facility] [address] [place] [address] Dr. Neisha Araiza DRUG CUT HEADER DRUG CLASS TEST SYSTEM CUT-OFF CONCENTRATIONS ARE FOLLOWS: Normal [facility] Comment on above: Performed By: #### A CETON #### [facility] [address] [place] [address] Dr. Neisha Araiza mAMP Negative Normal NEGATIVE [facility] Comment on above: Performed By: #### A CETON #### [facility] [address] [place] [address] Dr. Neisha Araiza MTD Negative Normal NEGATIVE [facility] Comment on above: Performed By: #### A CETON #### [facility] [address] [place] [address] Dr. Neisha Araiza OPI Negative Normal NEGATIVE [facility] Comment on above: Performed By: #### A CETON #### [facility] [address] [place] [address] Dr. Neisha Araiza OXY Negative Normal NEGATIVE [facility] Comment on above: Performed By: #### A CETON #### [facility] [address] [place] [address] Dr. Neisha Araiza PCP Negative Normal NEGATIVE [facility] Comment on above: Performed By: #### A CETON #### [facility] [address] [place] [address] Dr. Neisha Araiza PPX Negative Normal NEGATIVE [facility] Comment on above: Performed By: #### A CETON #### [facility] [address] [place] [address] Dr. Neisha Araiza TCA Negative Normal NEGATIVE [facility] Comment on above: Performed By: #### A CETON #### [facility] [address] [place] [address] Dr. Neisha Araiza THC Negative Normal NEGATIVE [facility] Comment on above: Performed By: #### A CETON #### [facility] [address] [place] [address] Dr. Neisha Araiza ER URINE PROFILEon 2 Bilirubin Ql (U) Negative Normal NEGATIVE [facility] Comment on above: Performed By: #### E RUR, DRUGRPD #### [facility] [address] [place] [address] Dr. Neisha Araiza Clarity (U) CLEAR Normal CLEAR [facility] Comment on above: Performed By: #### E RUR, DRUGRPD #### [facility] [address] [place] [address] Dr. Neisha Araiza Color (U) YELLOW Normal YELLOW [facility] Comment on above: Performed By: #### E RUR, DRUGRPD #### [facility] [address] [place] [address] Dr. Neisha Araiza ERUAHMagnus A micrscopic examination will be performed if indicated. Normal [facility] Comment on above: Performed By: #### E RUR, DRUGRPD #### [facility] [address] [place] [address] Dr. Neisha Araiza Glucose Ql (U) 250 mg/dl Abnormal NEGATIVE [facility] Comment on above: Performed By: #### E RUR, DRUGRPD #### [facility] [address] [place] [address] Dr. Neisha Araiza Hemoglobin Ql (U) Negative Normal NEGATIVE [facility] Comment on above: Performed By: #### E RUR, DRUGRPD #### [facility] [address] [place] [address] Dr. Neisha Araiza Ketones Ql (U) 15 mg/dl Abnormal NEGATIVE [facility] Comment on above: Performed By: #### E RUR, DRUGRPD #### [facility] [address] [place] [address] Dr. Neisha Araiza LEUKOCYTES Negative Normal NEGATIVE [facility] Comment on above: Performed By: #### E RUR, DRUGRPD #### [facility] [address] [place] [address] Dr. Neisha Araiza Nitrite Ql (U) Negative Normal NEGATIVE [facility] Comment on above: Performed By: #### E RUR, DRUGRPD #### [facility] [address] [place] [address] Dr. Neisha Araiza pH (U) 6.0 [pH] Normal 5-9 [facility] Comment on above: Performed By: #### E RUR, DRUGRPD #### [facility] [address] [place] [address] Dr. Neisha Araiza SPEC GRAVITY 1.020 Normal 1.005-<=1.025 [facility] Comment on above: Performed By: #### E RUR, DRUGRPD #### [facility] [address] [place] [address] Dr. Neisha Araiza UA PROTEIN Negative Normal NEGATIVE/ TRACE [facility] Comment on above: Performed By: #### E RUR, DRUGRPD #### [facility] [address] [place] [address] Dr. Neisha Araiza UR MICRO IND NOT INDICATED Normal [facility] Comment on above: Performed By: #### E RUR, DRUGRPD #### [facility] [address] [place] [address] Dr. Neisha Araiza Urobilinogen Qn (U) 0.2 {Ankit'U}/dL Normal 0.2 - 1. 0 [facility] Comment on above: Performed By: #### E RUR, DRUGRPD #### [facility] [address] [place] [address] Dr. Neisha Araiza H PYLORI ANTIBODY IGGon 11-30 H. PYLORI IGG ABS 0.29 Index Value Normal 0.00-0.79 [facility] Comment on above: Result Comment: Nega tive <0.80 Equivocal 0.80 - 0.89 Positive >0.89 Performed By: #### C BC #### [facility] [address] [place] [address] Dr. Neisha Araiza INFLUENZA A AND B AGon 12-10 INFLUANE SEE BELOW Normal [facility] Comment on above: Result Comment: Nega tive for Flu A protein angiten. Infection due to Flu A cannot be ruled out. Flu A angiten in the sample may be below the detection limit of the test. Performed By: #### C BC #### [facility] [address] [place] [address] Dr. Neisha Araiza INFLUBNEGH SEE BELOW Normal [facility] Comment on above: Result Comment: Nega tive for Flu B protein antigen. Infection due to Flu B cannot be ruled out. Flu B antigen in the sample may be below the detection limit of the test. Performed By: #### C BC #### [facility] [address] [place] [address] Dr. Neisha Araiza INFLUENZA A AG Negative Normal NEGATIVE SEE COMMENT [facility] Comment on above: Performed By: #### C BC #### [facility] [address] [place] [address] Dr. Neisha Araiza INFLUENZA B AG Negative Normal NEGATIVE SEE COMMENT [facility] Comment on above: Performed By: #### C BC #### [facility] [address] [place] [address] Dr. Neisha Araiza INTERNAL CONTROLS Within Normal Limits Normal Wi thin Normal Limits [facility] Comment on above: Performed By: #### C BC #### [facility] [address] [place] [address] Dr. Neisha Araiza LACTATE/LACTIC ACIDon 2021 Lactate [Moles/Vol] 0.9 mmol/L Normal 0.4-1.9 [facility] Comment on above: Performed By: #### C BC #### [facility] [address] [place] [address] Dr. Neisha Araiza Lactate [Moles/Vol] 0.8 mmol/L Normal 0.4-1.9 [facility] Comment on above: Performed By: #### C BC #### [facility] [address] [place] [address] Dr. Neisha Araiza LIPASEon 12-10-2021 Lipase [Catalytic activity/Vol] 146.0 U/L Normal 73.0-393.0 [facility] Comment on above: Performed By: #### L AURELIANO DRIVER, CMP #### [facility] [address] [place] [address] Dr. Neisha Araiza POINT OF CARE GLUCOSEon 11-30 Glucose [Mass/Vol] 222 mg/dL Critically high 74-106 [facility] Comment on above: Performed By: #### C BC #### [facility] [address] [place] [address] Dr. Neisha Araiza PREG HCG QUALon 12-10-2021 , QUAL Negative Normal NEGATIVE [facility] Comment on above: Performed By: #### L AURELIANO DRIVER, CMP #### [facility] [address] [place] [address] Dr. Neisha Araiza PROF 14(COMP METB)on 022 Albumin [Mass/Vol] 3.7 g/dL Normal 3.4-5.0 [facility] Comment on above: Performed By: #### L NEISHA AURELIANO, CMP #### [facility] [address] [place] [address] Dr. Neisha Araiza Albumin/Globulin [Mass ratio] 0.9 {ratio} Normal [facility] Comment on above: Performed By: #### L NEISHA AURELIANO, CMP #### [facility] [address] [place] [address] Dr. Neisha Araiza ALP [Catalytic activity/Vol] 118 U/L Critically high 46-116 [facility] Comment on above: Performed By: #### L AURELIANO DRIVER, CMP #### [facility] [address] [place] [address] Dr. Neisha Araiza ALT [Catalytic activity/Vol] 36 U/L Normal 14-59 [facility] Comment on above: Performed By: #### L IPAAURELIANO, CMP #### [facility] [address] [place] [address] Dr. Neisha Araiza Anion gap [Moles/Vol] 17.8 mmol/L Normal [facility] Comment on above: Performed By: #### L AURELIANO DRIVER, CMP #### [facility] [address] [place] [address] Dr. Neisha Araiza AST [Catalytic activity/Vol] 22 U/L Normal 15-37 [facility] Comment on above: Performed By: #### L AURELIANO DRIVER, CMP #### [facility] [address] [place] [address] Dr. Neisha Araiza Bilirubin [Mass/Vol] 0.9 mg/dL Normal 0.2-1.0 [facility] Comment on above: Performed By: #### L AURELIANO DRIVER, CMP #### [facility] [address] [place] [address] Dr. Neisha Araiza Calcium [Mass/Vol] 8.8 mg/dL Normal 8.5-10.1 [facility] Comment on above: Performed By: #### L NEISHA AURELIANO, CMP #### [facility] [address] [place] [address] Dr. Neisha Araiza Chloride [Moles/Vol] 99 mmol/L Normal 98-107 [facility] Comment on above: Performed By: #### L AURELIANO DRIVER, CMP #### [facility] [address] [place] [address] Dr. Neisha Araiza CO2 [Moles/Vol] 19.6 mmol/L Critically low 21.0-32.0 [facility] Comment on above: Performed By: #### L AURELIANO DRIVER, CMP #### [facility] [address] [place], [place] [id number] Dr. Neisha Araiza Creatinine [Mass/Vol] 0.52 mg/dL Critically low 0.55-1.02 [facility] Comment on above: Performed By: #### L AURELIANO DRIVER, CMP #### [facility] [address] [place] [address] Dr. Neisha Araiza EGFR-AF BOTSWANAN >60 Normal >=60 [facility] Comment on above: Performed By: #### L AURELIANO DRIVER, CMP #### [facility] [address] [address] [address] Neisha Araiza EGFR-NON AF BOTSWANAN >60 Normal >=60 [facility] Comment on above: Performed By: #### L AURELIANO DRIVER, CMP #### [facility] [address] [place] [address] Dr. Neisha Araiza Globulin (S) [Mass/Vol] 4.2 g/dL Normal [facility] Comment on above: Performed By: #### L AURELIANO DRIVER, CMP #### [facility] [address] [place] [address] Dr. Neisha Araiza Glucose [Mass/Vol] 172 mg/dL Critically high 74-106 [facility] Comment on above: Performed By: #### L AURELIANO DRIVER, CMP #### [facility] [address] [place] [address] Dr. Neisha Araiza Potassium [Moles/Vol] 3.4 mmol/L Critically low 3.5-5.1 [facility] Comment on above: Performed By: #### L AURELIANO DRIVER, CMP #### [facility] [address] [place] [address] Dr. Neisha Araiza Protein [Mass/Vol] 7.9 g/dL Normal 6.4-8.2 [facility] Comment on above: Performed By: #### L AURELIANO DRIVER, CMP #### [facility] [address] [place] [address] Dr. Neisha Araiza Sodium [Moles/Vol] 133 mmol/L Critically low 136-145 [facility] Comment on above: Performed By: #### L AURELIANO DRIVER, CMP #### [facility] [address] [place] [address] Dr. Neisha Araiza Urea nitrogen [Mass/Vol] 11.0 mg/dL Normal 7.0-18.0 [facility] Comment on above: Performed By: #### L AURELIANO DRIVER, CMP #### [facility] [address] [place] [address] Dr. Neisha Araiza Urea nitrogen/Creatinine [Mass ratio] 21.2 mg/mg Normal [facility] Comment on above: Performed By: #### L AURELIANO DRIVER, CMP #### [facility] [address] [place] [address] Dr. Neisha Araiza TSHon 12-10-2021 TSH 0.594 uIU/mL Normal 0.358-3.740 [facility] Comment on above: Performed By: #### L AURELIANO DRIVER, CMP #### [facility] [address] [place] [address] Dr. Neisha Araiza TSH RANGE SEE BELOW Normal [facility] Comment on above: Result Comment: <0.3 4 UIU/ml HYPERTHYROID 0.34-5.60 UIU/ml EUTHYROID >5.60 UIU/ml HYPOTHYROID Performed By: #### L AURELIANO DRIVER, CMP #### [facility] [address] [place] [address] Dr. Neisha Araiza CBC AUTO DIFFon 12-09-2021 BASO # 0.0 103/ul Normal 0.0-0.1 [facility] Comment on above: Performed By: #### L AURELIANO DRIVER, CMP #### [facility] [address] [place] [address] Dr. Neisha Araiza Basophils/100 WBC (Bld) 0.4 % Normal 0.2-2.0 [facility] Comment on above: Performed By: #### L AURELIANO DRIVER, CMP #### [facility] [address] [place] [address] Dr. Neisha Araiza EO # 0.0 103/ul Normal 0.0-0.7 [facility] Comment on above: Performed By: #### L AURELIANO DRIVER, CMP #### [facility] [address] [place] [address] Dr. Neisha Araiza Eosinophils/100 WBC (Bld) 0.1 % Critically low 0.9-7.0 [facility] Comment on above: Performed By: #### L AURELIANO DRIVER, CMP #### [facility] [address] [place] [address] Dr. Neisha Araiza Erythrocyte distribution width (RBC) [Ratio] 12.8 % Normal 11.0-15.0 [facility] Comment on above: Performed By: #### L AURELIANO DRIVER, CMP #### [facility] [address] [place] [address] Dr. Neisha Araiza Hematocrit (Bld) [Volume fraction] 41.1 % Normal 36.0-48.0 [facility] Comment on above: Performed By: #### L AURELIANO DRIVER, CMP #### [facility] [address] [place] [address] Dr. Neisha Araiza Hemoglobin (Bld) [Mass/Vol] 13.8 g/dL Normal 12.0-16.0 [facility] Comment on above: Performed By: #### L AURELIANO DRIVER, CMP #### [facility] [address] [place] [address] Dr. Neisha Araiza IG # 0.05 10e3/ul Critically high 0.00-0.03 [facility] Comment on above: Performed By: #### L AURELIANO DRIVER, CMP #### [facility] [address] [place] [address] Dr. Neisha Araiza IG % 0.5 % Normal 0.0-0.5 [facility] Comment on above: Performed By: #### L AURELIANO DRIVER, CMP #### [facility] [address] [place] [address] Dr. Neisha Araiza LYMPH # 2.1 103/ul Normal 1.2-3.8 [facility] Comment on above: Performed By: #### L AURELIANO DRIVER, CMP #### [facility] [address] [place] [address] Dr. Neisha Araiza Lymphocytes/100 WBC (Bld) 22.8 % Normal 20.5-60.0 [facility] Comment on above: Performed By: #### L IPA AURELIANO, CMP #### [facility] [address] [place] [address] Dr. Neisha Araiza MANUAL DIFF REQ NO Normal [facility] Comment on above: Performed By: #### L IPA, AURELIANO, CMP #### [facility] [address] [place] [address] Dr. Neisha Araiza MCH (RBC) [Entitic mass] 28.3 pg Normal 26.7-34.0 [facility] Comment on above: Performed By: #### L IPA AURELIANO, CMP #### [facility] [address] [place] [address] Dr. Neisha Araiza MCHC (RBC) [Mass/Vol] 33.6 g/dL Normal 29.9-35.2 [facility] Comment on above: Performed By: #### L NEISHA AURELIANO, CMP #### [facility] [address] [place] [address] Dr. Neisha Araiza MCV (RBC) [Entitic vol] 84.4 fL Normal 81.0-99.0 [facility] Comment on above: Performed By: #### L AURELIANO DRIVER, CMP #### [facility] [address] [place] [address] Dr. Neisha Araiza MONO # 0.6 103/ul Normal 0.3-0.8 [facility] Comment on above: Performed By: #### L AURELIANO DRIVER, CMP #### [facility] [address] [place] [address] Dr. Neisha Araiza Monocytes/100 WBC (Bld) 6.0 % Normal 1.7-12.0 [facility] Comment on above: Performed By: #### L AURELIANO DRIVER, CMP #### [facility] [address] [place] [address] Dr. Neisha Araiza NEUT # 6.4 103/ul Normal 1.4-6.5 [facility] Comment on above: Performed By: #### L IPA AURELIANO, CMP #### [facility] [address] [place] [address] Dr. Neisha Araiza Neutrophils/100 WBC (Bld) 70.2 % Normal 43.0-75.0 [facility] Comment on above: Performed By: #### L AURELIANO DRIVER, CMP #### [facility] [address] [address] [address] Neisha Araiza Platelet mean volume (Bld) [Entitic vol] 9.8 fL Normal 9.5-13.5 [facility] Comment on above: Performed By: #### L AURELIANO DRIVER, CMP #### [facility] [address] [place] [address] Dr. Neisha Araiza PLT 258 103/ul Normal 150-450 [facility] Comment on above: Performed By: #### L AURELIANO DRIVER, CMP #### [facility] [address] [place] [address] Dr. Neisha Araiza RBC 4.87 106/ul Normal 4.20-5.40 [facility] Comment on above: Performed By: #### L AURELIANO DRIVER, CMP #### [facility] [address] [place] [address] Dr. Neisha Araiza WBC 9.1 103/ul Normal 4.0-11.0 [facility] Comment on above: Performed By: #### L AURELIANO DRIVER, CMP #### [facility] [address] [place] [address] Dr. Neisha Araiza POINT OF CARE GLUCOSEon 11-30 Glucose [Mass/Vol] 222 mg/dL Critically high 74-106 [facility] Comment on above: Performed By: #### C BC #### [facility] [address] [place] [address] Dr. Neisha Araiza Glucose [Mass/Vol] 225 mg/dL Critically high 74-106 [facility] Comment on above: Performed By: #### C BC #### [facility] [address] [place] [address] Dr. Neisha Araiza PROF 14(COMP METB)on 022 Albumin [Mass/Vol] 3.1 g/dL Critically low 3.4-5.0 [facility] Comment on above: Performed By: #### C BC #### [facility] [address] [place] [address] Dr. Neisha Araiza Albumin/Globulin [Mass ratio] 0.9 {ratio} Normal [facility] Comment on above: Performed By: #### C BC #### [facility] [address] [address] [address] Neisha Araiza ALP [Catalytic activity/Vol] 99 U/L Normal 46-116 [facility] Comment on above: Performed By: #### C BC #### [facility] [address] [place] [address] Dr. Neisha Araiza ALT [Catalytic activity/Vol] 28 U/L Normal 14-59 [facility] Comment on above: Performed By: #### C BC #### [facility] [address] [place] [address] Dr. Neisha Araiza Anion gap [Moles/Vol] 15.0 mmol/L Normal [facility] Comment on above: Performed By: #### C BC #### [facility] [address] [place] [address] Dr. Neisha Araiza AST [Catalytic activity/Vol] 12 U/L Critically low 15-37 [facility] Comment on above: Performed By: #### C BC #### [facility] [address] [place] [address] Dr. Neisha Araiza Bilirubin [Mass/Vol] 1.3 mg/dL Critically high 0.2-1.0 [facility] Comment on above: Performed By: #### C BC #### [facility] [address] [place] [address] Dr. Neisha Aariza Calcium [Mass/Vol] 7.5 mg/dL Critically low 8.5-10.1 [facility] Comment on above: Performed By: #### C BC #### [facility] [address] [place] [address] Dr. Neisha Araiza Chloride [Moles/Vol] 101 mmol/L Normal 98-107 [facility] Comment on above: Performed By: #### C BC #### [facility] [address] [place] [address] Dr. Neisha Araiza CO2 [Moles/Vol] 14.9 mmol/L Critically low 21.0-32.0 [facility] Comment on above: Performed By: #### C BC #### [facility] [address] [address] [address] Neisha Araiza Creatinine [Mass/Vol] 0.52 mg/dL Critically low 0.55-1.02 [facility] Comment on above: Performed By: #### C BC #### [facility] [address] [address] [address] Neisha Araiza EGFR-AF BOTSWANAN >60 Normal >=60 [facility] Comment on above: Performed By: #### C BC #### [facility] [address] [place] [address] Dr. Neisha Araiza EGFR-NON AF BOTSWANAN >60 Normal >=60 [facility] Comment on above: Performed By: #### C BC #### [facility] [address] [place] [address] Dr. Neisha Araiza Globulin (S) [Mass/Vol] 3.6 g/dL Normal [facility] Comment on above: Performed By: #### C BC #### [facility] [address] [place] [address] Dr. Neisha Araiza Glucose [Mass/Vol] 232 mg/dL Critically high 74-106 [facility] Comment on above: Performed By: #### C BC #### [facility] [address] [place] [address] Dr. Neisha Araiza Potassium [Moles/Vol] 3.9 mmol/L Normal 3.5-5.1 [facility] Comment on above: Performed By: #### C BC #### [facility] [address] [address] [address] Neisha Araiza Protein [Mass/Vol] 6.7 g/dL Normal 6.4-8.2 [facility] Comment on above: Performed By: #### C BC #### [facility] [address] [address] [address] Neisha Araiza Sodium [Moles/Vol] 127 mmol/L Critically low 136-145 [facility] Comment on above: Performed By: #### C BC #### [facility] [address] [place] [address] Dr. Neisha Araiza Urea nitrogen [Mass/Vol] 9.0 mg/dL Normal 7.0-18.0 [facility] Comment on above: Performed By: #### C BC #### [facility] [address] [place] [address] Dr. Neisha Araiza Urea nitrogen/Creatinine [Mass ratio] 17.3 mg/mg Normal [facility] Comment on above: Performed By: #### C BC #### [facility] [address] [place] [address] Dr. Neisha Araiza UA RANDOM W/MICROSCOPICon BACTERIA NONE SEEN Normal NONE SEEN [facility] Comment on above: Performed By: #### U AMIC #### [facility] [address] [place] [address] Dr. Neisha Araiza Bilirubin Ql (U) Negative Normal NEGATIVE [facility] Comment on above: Performed By: #### U AMIC #### [facility] [address] [place] [address] Dr. Neisha Araiza CAST NONE SEEN Normal NONE SEEN [facility] Comment on above: Performed By: #### U AMIC #### [facility] [address] [place] [address] Dr. Neisha Araiza Clarity (U) CLEAR Normal CLEAR [facility] Comment on above: Performed By: #### U AMIC #### [facility] [address] [place] [address] Dr. Neisha Araiza Color (U) LT. YELLOW Normal YELLOW [facility] Comment on above: Performed By: #### U AMIC #### [facility] [address] [place] [address] Dr. Neisha Araiza Crystals LM Nom (Urine sed) NONE SEEN Normal NONE SEEN [facility] Comment on above: Performed By: #### U AMIC #### [facility] [address] [place] [address] Dr. Neisha Araiza Epithelial cells LM Ql (Urine sed) FEW Abnormal NONE SEEN /RARE [facility] Comment on above: Performed By: #### U AMIC #### [facility] [address] [address] [address] Neisha Araiza Glucose Ql (U) 500 mg/dl Abnormal NEGATIVE [facility] Comment on above: Performed By: #### U AMIC #### [facility] [address] [address] [address] Neisha Araiza Hemoglobin Ql (U) Negative Normal NEGATIVE [facility] Comment on above: Performed By: #### U AMIC #### [facility] [address] [address] [address] Neisha Araiza Ketones Ql (U) 80 mg/dl Abnormal NEGATIVE [facility] Comment on above: Performed By: #### U AMIC #### [facility] [address] [place] [address] Dr. Neisha Araiza LEUKOCYTES Negative Normal NEGATIVE [facility] Comment on above: Performed By: #### U AMIC #### [facility] [address] [address] [address] Neisha Araiza MUCOUS NONE SEEN Normal NONE SEEN [facility] Comment on above: Performed By: #### U AMIC #### [facility] [address] [address] [address] Neisha Araiza Nitrite Ql (U) Negative Normal NEGATIVE [facility] Comment on above: Performed By: #### U AMIC #### [facility] [address] [address] [address] Neisha Araiza pH (U) 6.0 [pH] Normal 5-9 [facility] Comment on above: Performed By: #### U AMIC #### [facility] [address] [address] [address] Neisha Araiza RBC NONE SEEN Abnormal 0-2 [facility] Comment on above: Performed By: #### U AMIC #### [facility] [address] [place] [address] Dr. Neisha Araiza SPEC GRAVITY 1.030 Abnormal 1.005-<=1.025 [facility] Comment on above: Performed By: #### U AMIC #### [facility] [address] [address] [address] Neisha Araiza UA PROTEIN TRACE Normal NEGATIVE/ TRACE [facility] Comment on above: Performed By: #### U AMIC #### [facility] [address] [address] [address] Neisha Araiza Urobilinogen Qn (U) 0.2 {Ankit'U}/dL Normal 0.2 - 1. 0 [facility] Comment on above: Performed By: #### U AMIC #### [facility] [address] [address] [address] Neisha Araiza WBC 0-2 Abnormal NONE SEEN [facility] Comment on above: Performed By: #### U AMIC #### [facility] [address] [place] [address] Dr. Neisha Araiza AMYLASEon 12-08-2021 Amylase [Catalytic activity/Vol] 31 U/L Normal 25-115 [facility] Comment on above: Performed By: #### L IPA, AURELIANO, CMP #### [facility] [address] [place] [address] Dr. Neisha Araiza CBC AUTO DIFFon 12-08-2021 BASO # 0.0 103/ul Normal 0.0-0.1 [facility] Comment on above: Performed By: #### C BC #### [facility] [address] [place] [address] Dr. Neisha Araiza Basophils/100 WBC (Bld) 0.4 % Normal 0.2-2.0 [facility] Comment on above: Performed By: #### C BC #### [facility] [address] [place] [address] Dr. Neisha Araiza EO # 0.0 103/ul Normal 0.0-0.7 [facility] Comment on above: Performed By: #### C BC #### [facility] [address] [place] [address] Dr. Neisha Araiza Eosinophils/100 WBC (Bld) 0.0 % Critically low 0.9-7.0 [facility] Comment on above: Performed By: #### C BC #### [facility] [address] [address] [address] Neisha Araiza Erythrocyte distribution width (RBC) [Ratio] 12.9 % Normal 11.0-15.0 [facility] Comment on above: Performed By: #### C BC #### [facility] [address] [place] [address] Dr. Neisha Araiza Hematocrit (Bld) [Volume fraction] 43.8 % Normal 36.0-48.0 [facility] Comment on above: Performed By: #### C BC #### [facility] [address] [place] [address] Dr. Neisha Araiza Hemoglobin (Bld) [Mass/Vol] 14.7 g/dL Normal 12.0-16.0 [facility] Comment on above: Performed By: #### C BC #### [facility] [address] [place] [address] Dr. Neisha Ariaza IG # 0.06 10e3/ul Critically high 0.00-0.03 [facility] Comment on above: Performed By: #### C BC #### [facility] [address] [place] [address] Dr. Neisha Araiza IG % 0.6 % Critically high 0.0-0.5 [facility] Comment on above: Performed By: #### C BC #### [facility] [address] [place] [address] Dr. Neisha Araiza LYMPH # 1.4 103/ul Normal 1.2-3.8 [facility] Comment on above: Performed By: #### C BC #### [facility] [address] [place] [address] Dr. Neisha Araiza Lymphocytes/100 WBC (Bld) 12.7 % Critically low 20.5-60.0 [facility] Comment on above: Performed By: #### C BC #### [facility] [address] [place] [address] Dr. Neisha Araiza MANUAL DIFF REQ NO Normal [facility] Comment on above: Performed By: #### C BC #### [facility] [address] [address] [address] Neisha Araiza MCH (RBC) [Entitic mass] 28.2 pg Normal 26.7-34.0 [facility] Comment on above: Performed By: #### C BC #### [facility] [address] [place] [address] Dr. Neisha Araiza MCHC (RBC) [Mass/Vol] 33.6 g/dL Normal 29.9-35.2 [facility] Comment on above: Performed By: #### C BC #### [facility] [address] [place] [address] Dr. Neisha Araiza MCV (RBC) [Entitic vol] 84.1 fL Normal 81.0-99.0 [facility] Comment on above: Performed By: #### C BC #### [facility] [address] [place] [address] Dr. Neisha Araiza MONO # 0.5 103/ul Normal 0.3-0.8 [facility] Comment on above: Performed By: #### C BC #### [facility] [address] [place] [address] Dr. Neisha Araiza Monocytes/100 WBC (Bld) 4.7 % Normal 1.7-12.0 [facility] Comment on above: Performed By: #### C BC #### [facility] [address] [place] [address] Dr. Neisha Araiza NEUT # 8.8 103/ul Critically high 1.4-6.5 [facility] Comment on above: Performed By: #### C BC #### [facility] [address] [place] [address] Dr. Neisha Araiza Neutrophils/100 WBC (Bld) 81.6 % Critically high 43.0-75.0 [facility] Comment on above: Performed By: #### C BC #### [facility] [address] [place] [address] Dr. Neisha Araiza Platelet mean volume (Bld) [Entitic vol] 10.0 fL Normal 9.5-13.5 [facility] Comment on above: Performed By: #### C BC #### [facility] [address] [address] [address] Neisha Araiza PLT 293 103/ul Normal 150-450 [facility] Comment on above: Performed By: #### C BC #### [facility] [address] [place] [address] Dr. Neisha Araiza RBC 5.21 106/ul Normal 4.20-5.40 [facility] Comment on above: Performed By: #### C BC #### [facility] [address] [place] [address] Dr. Neisha Araiza WBC 10.7 103/ul Normal 4.0-11.0 [facility] Comment on above: Performed By: #### C BC #### [facility] [address] [place] [address] Dr. Neisha Araiza Covid-19 PCR ([facility])on SARS-CoV-2 (COVID-19) RNA TIM+probe Ql (Unsp spec) Not detected Normal NOT DETECTED [facility] Comment on above: Result Comment: When diagnostic testing is negative, the possibility of a false negative should be considered in the context of a patient's recent exposures and the presence of clinical signs and symptoms consistent with SARS-CoV-2. This test is not yet approved or cleared by the [place] FDA. When there are no FDA-approved or cleared tests available, and other criteria are met, FDA can make tests available under an emergency access mechanism called an Emergency Use Authorization (EUA). The EUA for this test is supported by the [place] of Health and Human Service's declaration that circumstances exist to justify the emergency use of in vitro diagnostics for the detection and/or diagnosis of the virus that causes COVID-19. This EUA will remain in effect for the duration of the COVID-19 declaration justifying emergency of IVDs, unless it is terminated or revoked by the FDA (after which the test may no longer be used). Performed By: #### C BC #### [facility] [address] [place] [address] Dr. Neisha Araiza LACTATE/LACTIC ACIDon 2021 Lactate [Moles/Vol] 1.5 mmol/L Normal 0.4-1.9 [facility] Comment on above: Performed By: #### C BC #### [facility] [address] [place] [address] Dr. Neisha Araiza LIPASEon 12-08-2021 Lipase [Catalytic activity/Vol] 149.0 U/L Normal 73.0-393.0 [facility] Comment on above: Performed By: #### L IPA AURELIANO, CMP #### [facility] [address] [place] [address] Dr. Neisha Araiza POINT OF CARE GLUCOSEon Glucose [Mass/Vol] 282 mg/dL Critically high 74-106 [facility] Comment on above: Performed By: #### A CETON #### [facility] [address] [place] [address] Dr. Neisha Araiza PROF 14(COMP METB)on 022 Albumin [Mass/Vol] 3.6 g/dL Normal 3.4-5.0 [facility] Comment on above: Performed By: #### L IPA AURELIANO, CMP #### [facility] [address] [place] [address] Dr. Neisha Araiza Albumin/Globulin [Mass ratio] 0.9 {ratio} Normal [facility] Comment on above: Performed By: #### L IPA AURELIANO, CMP #### [facility] [address] [place] [address] Dr. Neisha Araiza ALP [Catalytic activity/Vol] 105 U/L Normal 46-116 [facility] Comment on above: Performed By: #### L IPA, AURELIANO, CMP #### [facility] [address] [place] [address] Dr. Neisha Araiza ALT [Catalytic activity/Vol] 32 U/L Normal 14-59 [facility] Comment on above: Performed By: #### L IPA, AURELIANO, CMP #### [facility] [address] [place] [address] Dr. Neisha Araiza Anion gap [Moles/Vol] 23.2 mmol/L Normal [facility] Comment on above: Performed By: #### L IPA AURELIANO, CMP #### [facility] [address] [place] [address] Dr. Neisha Araiza AST [Catalytic activity/Vol] 15 U/L Normal 15-37 [facility] Comment on above: Performed By: #### L IPA AURELIANO, CMP #### [facility] [address] [place] [address] Dr. Neisha Araiza Bilirubin [Mass/Vol] 1.3 mg/dL Critically high 0.2-1.0 [facility] Comment on above: Performed By: #### L IPA AURELIANO, CMP #### [facility] [address] [place] [address] Dr. Neisha Araiza Calcium [Mass/Vol] 8.0 mg/dL Critically low 8.5-10.1 [facility] Comment on above: Performed By: #### L IPA AURELIANO, CMP #### [facility] [address] [place] [address] Dr. Neisha Araiza Chloride [Moles/Vol] 96 mmol/L Critically low 98-107 [facility] Comment on above: Performed By: #### L NEISHA AURELIANO, CMP #### [facility] [address] [place] [address] Dr. Neisha Araiza CO2 [Moles/Vol] 14.8 mmol/L Critically low 21.0-32.0 [facility] Comment on above: Performed By: #### L NEISHA AURELIANO, CMP #### [facility] [address] [place] [address] Dr. Neisha Araiza Creatinine [Mass/Vol] 0.62 mg/dL Normal 0.55-1.02 [facility] Comment on above: Performed By: #### L NEISHA AURELIANO, CMP #### [facility] [address] [place] [address] Dr. Neisha Araiza EGFR-AF BOTSWANAN >60 Normal >=60 [facility] Comment on above: Performed By: #### L IPA AURELIANO, CMP #### [facility] [address] [place] [address] Dr. Neisha Araiza EGFR-NON AF BOTSWANAN >60 Normal >=60 [facility] Comment on above: Performed By: #### L AURELIANO DRIVER, CMP #### [facility] [address] [address] [address] Neisha Araiza Globulin (S) [Mass/Vol] 4.2 g/dL Normal [facility] Comment on above: Performed By: #### L AURELIANO DRIVER, CMP #### [facility] [address] [address] [address] Neisha Araiza Glucose [Mass/Vol] 285 mg/dL Critically high 74-106 T [facility] Comment on above: Performed By: #### L AURELIANO DRIVER, CMP #### [facility] [address] [place] [address] Dr. Neisha Araiza Potassium [Moles/Vol] 4.0 mmol/L Normal 3.5-5.1 [facility] Comment on above: Performed By: #### L AURELIANO DRIVER, CMP #### [facility] [address] [place] [address] Dr. Neisha Araiza Protein [Mass/Vol] 7.8 g/dL Normal 6.4-8.2 [facility] Comment on above: Performed By: #### L AURELIANO DRIVER, CMP #### [facility] [address] [place] [address] Dr. Neisha Araiza Sodium [Moles/Vol] 130 mmol/L Critically low 136-145 [facility] Comment on above: Performed By: #### L AURELIANO DRIVER, CMP #### [facility] [address] [place] [address] Dr. Neisha Araiza Urea nitrogen [Mass/Vol] 12.0 mg/dL Normal 7.0-18.0 [facility] Comment on above: Performed By: #### L AURELIANO DRIVER, CMP #### [facility] [address] [place] [address] Dr. Neisha Araiza Urea nitrogen/Creatinine [Mass ratio] 19.4 mg/mg Normal [facility] Comment on above: Performed By: #### L AURELIANO DRIVER, CMP #### [facility] [address] [place] [address] Dr. Neisha Araiza AMYLASEon 12-07-2021 Amylase [Catalytic activity/Vol] 20 U/L Critically low 25-115 [facility] Comment on above: Performed By: #### A CETON #### [facility] [address] [address] [address] Neisha Araiza BILIRUBIN CONJUGATED (DIRECT )on 12-07-2021 BILI, CONJUGATED 0.2 mg/dL Normal 0.0-0.2 [facility] Comment on above: Performed By: #### C BC #### [facility] [address] [address] [address] Neisha Araiza CBC AUTO DIFFon 12-07-2021 BASO # 0.0 103/ul Normal 0.0-0.1 [facility] Comment on above: Performed By: #### L IPA, AURELIANO, CMP #### [facility] [address] [place] [address] Dr. Neisha Araiza Basophils/100 WBC (Bld) 0.3 % Normal 0.2-2.0 [facility] Comment on above: Performed By: #### L IPA, AURELIANO, CMP #### [facility] [address] [address] [address] Neisha Araiza EO # 0.0 103/ul Normal 0.0-0.7 [facility] Comment on above: Performed By: #### L IPA, AURELIANO, CMP #### [facility] [address] [address] [address] Neisha Araiza Eosinophils/100 WBC (Bld) 0.0 % Critically low 0.9-7.0 [facility] Comment on above: Performed By: #### L IPA, AURELIANO, CMP #### [facility] [address] [address] [address] Neisha Araiza Erythrocyte distribution width (RBC) [Ratio] 12.7 % Normal 11.0-15.0 [facility] Comment on above: Performed By: #### L IPA, AURELIANO, CMP #### [facility] [address] [place] [address] Dr. Neisha Araiza Hematocrit (Bld) [Volume fraction] 44.9 % Normal 36.0-48.0 [facility] Comment on above: Performed By: #### L AURELIANO DRIVER, CMP #### [facility] [address] [place] [address] Dr. Neisha Araiza Hemoglobin (Bld) [Mass/Vol] 15.4 g/dL Normal 12.0-16.0 [facility] Comment on above: Performed By: #### L AURELIANO DRIVER, CMP #### [facility] [address] [place] [address] Dr. Neisha Araiza IG # 0.03 10e3/ul Normal 0.00-0.03 [facility] Comment on above: Performed By: #### L AURELIANO DRIVER, CMP #### [facility] [address] [place] [address] Dr. Neisha Araiza IG % 0.3 % Normal 0.0-0.5 [facility] Comment on above: Performed By: #### L AURELIANO DRIVER, CMP #### [facility] [address] [place] [address] Dr. Neisha Araiza LYMPH # 1.2 103/ul Normal 1.2-3.8 [facility] Comment on above: Performed By: #### L AURELIANO DRIVER, CMP #### [facility] [address] [place] [address] Dr. Neisha Araiza Lymphocytes/100 WBC (Bld) 12.2 % Critically low 20.5-60.0 [facility] Comment on above: Performed By: #### L AURELIANO DRIVER, CMP #### [facility] [address] [place] [address] Dr. Niesha Araiza MANUAL DIFF REQ NO Normal [facility] Comment on above: Performed By: #### L AURELIANO DRIVER, CMP #### [facility] [address] [place] [address] Dr. Neisha Araiza MCH (RBC) [Entitic mass] 28.3 pg Normal 26.7-34.0 [facility] Comment on above: Performed By: #### L AURELIANO DRIVER, CMP #### [facility] [address] [place] [address] Dr. Neisha Araiza MCHC (RBC) [Mass/Vol] 34.3 g/dL Normal 29.9-35.2 [facility] Comment on above: Performed By: #### L AURELIANO DRIVER, CMP #### [facility] [address] [place] [address] Dr. Neisha Araiza MCV (RBC) [Entitic vol] 82.5 fL Normal 81.0-99.0 [facility] Comment on above: Performed By: #### L AURELIANO DRIVER, CMP #### [facility] [address] [place] [address] Dr. Neisha Araiza MONO # 0.3 103/ul Normal 0.3-0.8 [facility] Comment on above: Performed By: #### L AURELIANO DRIVER, CMP #### [facility] [address] [place] [address] Dr. Neisha Araiza Monocytes/100 WBC (Bld) 3.1 % Normal 1.7-12.0 [facility] Comment on above: Performed By: #### L AURELIANO DRIVER, CMP #### [facility] [address] [place] [address] Dr. Neisha Araiza NEUT # 8.1 103/ul Critically high 1.4-6.5 [facility] Comment on above: Performed By: #### L AURELIANO DRIVER, CMP #### [facility] [address] [place] [address] Dr. Neisha Araiza Neutrophils/100 WBC (Bld) 84.1 % Critically high 43.0-75.0 [facility] Comment on above: Performed By: #### L AURELIANO DRIVER, CMP #### [facility] [address] [place] [address] Dr. Neisha Araiza Platelet mean volume (Bld) [Entitic vol] 9.8 fL Normal 9.5-13.5 [facility] Comment on above: Performed By: #### L AURELIANO DRIVER, CMP #### [facility] [address] [place] [address] Dr. Neisha Araiza PLT 263 103/ul Normal 150-450 [facility] Comment on above: Performed By: #### L AURELIANO DRIVER, CMP #### [facility] [address] [place] [address] Dr. Neisha Araiza RBC 5.44 106/ul Critically high 4.20-5.40 [facility] Comment on above: Performed By: #### L AURELIANO DRIVER, CMP #### [facility] [address] [place] [address] Dr. Neisha Araiza WBC 9.6 103/ul Normal 4.0-11.0 [facility] Comment on above: Performed By: #### L AURELIANO DRIVER, CMP #### [facility] [address] [place] [address] Dr. Neisha Araiza LIPASEon 12-07-2021 Lipase [Catalytic activity/Vol] 73.0 U/L Normal 73.0-393.0 [facility] Comment on above: Performed By: #### A CETON #### [facility] [address] [place] [address] Dr. Neisha Araiza PROF 14(COMP METB)on 022 Albumin [Mass/Vol] 3.8 g/dL Normal 3.4-5.0 [facility] Comment on above: Performed By: #### A CETON #### [facility] [address] [place] [address] Dr. Neisha Araiza Albumin/Globulin [Mass ratio] 0.9 {ratio} Normal [facility] Comment on above: Performed By: #### A CETON #### [facility] [address] [place] [address] Dr. Neisha Araiza ALP [Catalytic activity/Vol] 120 U/L Critically high 46-116 [facility] Comment on above: Performed By: #### A CETON #### [facility] [address] [place] [address] Dr. Neihsa Araiza ALT [Catalytic activity/Vol] 34 U/L Normal 14-59 [facility] Comment on above: Performed By: #### A CETON #### [facility] [address] [place] [address] Dr. Neisha Araiza Anion gap [Moles/Vol] 20.0 mmol/L Normal Th [facility] Comment on above: Performed By: #### A CETON #### [facility] [address] [address] [address] Neisha Araiza AST [Catalytic activity/Vol] 18 U/L Normal 15-37 [facility] Comment on above: Performed By: #### A CETON #### [facility] [address] [address] [address] Neisha Araiza Bilirubin [Mass/Vol] 1.1 mg/dL Critically high 0.2-1.0 [facility] Comment on above: Performed By: #### A CETON #### [facility] [address] [address] [address] Neisha Araiza Calcium [Mass/Vol] 8.5 mg/dL Normal 8.5-10.1 [facility] Comment on above: Performed By: #### A CETON #### [facility] [address] [address] [address] Neisha Araiza Chloride [Moles/Vol] 94 mmol/L Critically low 98-107 [facility] Comment on above: Performed By: #### A CETON #### [facility] [address] [address] [address] Neisha Araiza CO2 [Moles/Vol] 18.9 mmol/L Critically low 21.0-32.0 [facility] Comment on above: Performed By: #### A CETON #### [facility] [address] [address] [address] Neisha Araiza Creatinine [Mass/Vol] 0.59 mg/dL Normal 0.55-1.02 [facility] Comment on above: Performed By: #### A CETON #### [facility] [address] [place] [address] Dr. Neisha Araiza EGFR-AF BOTSWANAN >60 Normal >=60 [facility] Comment on above: Performed By: #### A CETON #### [facility] [address] [place] [address] Dr. Neisha Araiza EGFR-NON AF BOTSWANAN >60 Normal >=60 [facility] Comment on above: Performed By: #### A CETON #### [facility] [address] [address] [address] Neisha Araiza Globulin (S) [Mass/Vol] 4.1 g/dL Normal [facility] Comment on above: Performed By: #### A CETON #### [facility] [address] [address] [address] Neisha Araiza Glucose [Mass/Vol] 322 mg/dL Critically high 74-106 [facility] Comment on above: Performed By: #### A CETON #### [facility] [address] [address] [address] Neisha Araiza Potassium [Moles/Vol] 3.9 mmol/L Normal 3.5-5.1 [facility] Comment on above: Performed By: #### A CETON #### [facility] [address] [place] [address] Dr. Neisha Araiza Protein [Mass/Vol] 7.9 g/dL Normal 6.4-8.2 [facility] Comment on above: Performed By: #### A CETON #### [facility] [address] [place] [address] Dr. Neisha Araiza Sodium [Moles/Vol] 129 mmol/L Critically low 136-145 [facility] Comment on above: Performed By: #### A CETON #### [facility] [address] [address] [address] Neisha Araiza Urea nitrogen [Mass/Vol] 12.0 mg/dL Normal 7.0-18.0 [facility] Comment on above: Performed By: #### A CETON #### [facility] [address] [place] [address] Dr. Neisha Araiza Urea nitrogen/Creatinine [Mass ratio] 20.3 mg/mg Normal [facility] Comment on above: Performed By: #### A CETON #### [facility] [address] [place] [address] Dr. Neisha rAaiza Vital Signs Date Time Vital Sign Value Performing Clinician Boo arango 01-23-2023 18:06-0400 Hourly Rounding Mbanefo OJUKWU [facility] 01-23-2023 18:06-0400 Promise to Return Mbanefo OJUKWU [facility] 01-23-2023 17:21-0400 Hourly Rounding Mbanefo OJUKWU [facility] 01-23-2023 17:21-0400 Promise to Return Mbanefo OJUKWU [facility] 01-23-2023 16:21-0400 Hourly Rounding Mbanefo OJUKWU [facility] 01-23-2023 16:21-0400 Promise to Return Mbanefo OJUKWU [facility] 01-23-2023 14:00-0400 Blood Pressure Location Mbanefo OJUKWU [facility] 01-23-2023 11:45-0400 Heart rate 74 /min Mbanefo OJUKWU [facility] 01-23-2023 11:45-0400 SaO2% (BldA) [Mass fraction] 98 % Mbanefo OJUKWU [facility] 01-23-2023 11:45-0400 Diastolic blood pressure 87 mm[Hg] Mbanefo OJUKWU [facility] 01-23-2023 11:45-0400 Mean blood pressure 107 mm[Hg] Mbanefo OJUKWU [facility] 01-23-2023 11:45-0400 Systolic blood pressure 146 mm[Hg] Mbanefo OJUKWU [facility] 01-23-2023 11:45-0400 Body temperature 98.06 [degF] Mbanefo OJUKWU [facility] 01-23-2023 08:47-0400 gluc 192 mg/dL Mbanefo OJUKWU [facility] 01-23-2023 08:46-0400 Diastolic blood pressure 95 mm[Hg] Mbanefo OJUKWU [facility] 01-23-2023 08:46-0400 Heart rate 88 /min Mbanefo OJUKWU [facility] 01-23-2023 08:46-0400 Systolic blood pressure 155 mm[Hg] Mbanefo OJUKWU [facility] 01-23-2023 08:03-0400 Heart rate 83 /min Mbanefo OJUKWU [facility] 01-23-2023 08:03-0400 SaO2% (BldA) [Mass fraction] 98 % Mbanefo OJUKWU [facility] 01-23-2023 08:03-0400 Mean blood pressure 115 mm[Hg] Mbanefo OJUKWU [facility] 01-23-2023 08:02-0400 Body temperature 98.24 [degF] Mbanefo OJUKWU [facility] 01-23-2023 01:40-0400 Blood Pressure Location Mbanefo OJUKWU [facility] 01-23-2023 01:40-0400 Body temperature 98.06 [degF] Mbanefo OJUKWU [facility] 01-23-2023 01:40-0400 Heart rate 91 /min Mbanefo OJUKWU [facility] 01-23-2023 01:40-0400 Mean blood pressure 119 mm[Hg] Mbanefo OJUKWU [facility] 01-23-2023 01:40-0400 Respiratory rate 18 /min Mbanefo OJUKWU [facility] 01-23-2023 01:40-0400 SaO2% (BldA) [Mass fraction] 98 % Mbanefo OJUKWU [facility] 01-22-2023 20:59-0400 Heart rate 94 /min Mbanefo OJUKWU [facility] 01-22-2023 19:00-0400 Mean blood pressure 108 mm[Hg] Mbanefo OJUKWU [facility] 01-22-2023 15:33-0400 Respiratory rate 18 /min Mbanefo OJUKWU [facility] 01-22-2023 15:32-0400 Mean blood pressure 101 mm[Hg] Mbanefo OJUKWU [facility] 01-22-2023 11:35-0400 Heart rate 67 /min Mbanefo OJUKWU [facility] 01-22-2023 08:40-0400 gluc 215 mg/dL Mbanefo OJUKWU [facility] 01-22-2023 04:53-0400 Mean blood pressure 97 mm[Hg] Mbanefo OJUKWU [facility] 01-21-2023 18:42-0400 Respiratory rate 15 /min Mbanefo OJUKWU [facility] 01-21-2023 17:54-0400 Respiratory rate 21 /min Mbanefo OJUKWU [facility] 01-21-2023 17:45-0400 Respiratory rate 16 /min Mbanefo OJUKWU [facility] 01-21-2023 16:20-0400 Heart rate 87 /min Mbanefo OJUKWU [facility] Encounters Encounter Date Encounter Type Care Provider Facility Start: 02-05-2023 End: 02-05-2023 ambulatory [facility] Start: 01-23-2023 ambulatory Facility:[id number] Start: 01-22-2023 ambulatory Facility:1 [id number] Start: 01-21-2023 End: 01-23-2023 ambulatory Abhishek Monterroso Facility:[facility] Start: 01-21-2023 End: 01-23-2023 Observation Mbanefo OJUKWU [facility] Start: 12-12-2022 End: 12-12-2022 Emergency department patient visit Pako Metzger Facility:[facility] Start: 06-15-2022 End: 06-15-[address] MOLLY GARLAND Facility:[facility] Start: 04-27-2022 End: 04-27-2022 ambulatory MIKEY DAMICO Facility:[facility] Start: 04-21-2022 End: 04-21-[address] GENTRY WOLF Facility:[facility] Start: 04-15-2022 End: 04-15-[address] MOLLY GARLAND Facility:[facility] Start: 01-04-2022 End: 01-05-[address] GENTRY WOLF Facility:[facility] Start: 01-03-2022 End: 01-03-2022 ambulatory LUTHER NGUYEN Facility:[facility] Start: 12-10-2021 End: 12-12-[address] GENTRY WOLF Facility:[facility] Start: 12-08-2021 End: 12-09-[address] GENTRY WOLF Facility:[facility] Start: 12-07-2021 End: 12-07-[address] BRI MARTE Facility:[facility] Procedures Date Procedure Procedure Detail Performing Clinician Percutaneous coronar y intervention Ellie ALMONTE Comment on above: stent to LCX Payers Date Payer Category Payer Medicaid [id number] 1980 Unknown [id number] 2.16.84 [id number] 1978 Unknown [id number] 2.16.84 [id number] 1978 Unknown [id number] 2.16.84 [id number] 1978 Unknown [id number] 2.16.84 [id number] 1978 Unknown [id number] 2.16.84 [id number] 1978 Unknown [id number] 2.16.84 [id number] 1978 Unknown [id number] 2.16.84 [id number] 1978 Unknown [id number] 2.16.84 [id number] 1978 Unknown [id number] 2.16.84 [id number] 1978 Unknown [id number] 2.16.8 [id number] 1978 Unknown [id number] 2.16.8 [id number] 1978 Unknown [id number] 2.16. [id number] 1978 Unknown [id number] 2.16. [id number] 1959 Unknown [id number] Social History Date Type Detail Facility Tobacco [facility] Comment on above: denies Tobacco smoking status No Smokin g Status Entered [facility] Sex Assigned At Female [facility] Medical Equipment Procedure Code Equipment Code Equipment Origin al Text Equipment Identifier Dates PCI Unknown 01/22/23 Non Biological Left Circumflex Coronary Artery FDA Start: 01-22-2023 Comment on above: 2.75 mm x 28 mm Xien ce Coronary stent to LAD Functional Status Date Assessment Result Facility 01-21-2023 Functional Status No [facility] 01-21-2023 Functional Status [facility] Clinical Notes 01-05-2022 to 02-05-2023 Note Date & Type Note Facility 02-05-2023 Note Cardiology Clinic No te Chief Complaint: establish care HPI: Escobar Nash is a 43 y.o. female with a past medical history including HTN, HLD, T2DM, and CAD s/p PCI of Lcx. She was referred to Cardiology clinic establish care. Patient was recently hospitalized for NSTEMI and was found to have 99% Lcx lesion s/p PCI. Today, patient states that she has been doing well. Patient adamantly denies any cardiac complaints or concerns. Patient denies any chest pain or shortness of breath. Patient denies any lower extremity edema, orthopnea, or proximal nocturnal dyspnea. No near-syncope or syncope. No dizziness or lightheadedness. She is taking her medications without issue. No bleeding complications. Cardiology ROS: GENERAL: Denies fever, chills, night sweats, weight loss. HEENT: Denies changes in vision, photophobia, changes in hearing, epistaxis, oral bleeding. CARDIOVASCULAR: Denies chest pain, exertional dyspnea, orthopnea/PND, lower extremity edema, palpitations, lightheadedness/dizziness. RESPIRATORY: Denies SOB, coughing, wheezing GI: Denies abdominal pain, nausea/vomiting, heartburn, melena/hematochezia. RENAL: Denies dysuria, hematuria, flank pain. MSK: Denies muscle weakness/pain, arthralgias/joint pain. NEUROLOGIC: Denies LOC, weakness, numbness, headaches. SKIN: Denies abnormal rashes or bleeding. PSYCH: Denies significant anxiety, depression, sleep disturbances. Past Medical History She has a past medical history of Coronary artery disease, Diabetes mellitus (CMS/HCC), Hyperlipidemia, Hypertension, and Myocardial infarction (CMS/HCC). Surgical History She has a past surgical history that includes Cardiac catheterization; Coronary stent placement; Cholecystectomy; and section, classic. Social History She reports that she has never smoked. She has never used smokeless tobacco. She reports current alcohol use. No history on file for drug use. Family History Family History Problem Relation Name Age of Onset Diabetes Father Coronary artery disease Father Kidney disease Father Medications Current Outpatient Medications on File Prior to Visit Medication Sig Dispense Refill aspirin 81 mg EC tablet Take 81 mg by mouth in the morning. atorvastatin (Lipitor) 80 mg tablet Take 80 mg by mouth at bedtime. Brilinta 90 mg tablet Take 90 mg by mouth in the morning and at bedtime. cetirizine (ZyrTEC) 10 mg tablet Take 10 mg by mouth in the morning. citalopram (CeleXA) 20 mg tablet Take 20 mg by mouth in the morning. glimepiride (Amaryl) 4 mg tablet Take 4 mg by mouth in the morning. insulin glargine (Basaglar KwikPen U-100 Insulin) 100 unit/mL (3 mL) pen Inject 20 units Subcutaneous every evening Lantus Solostar U-100 Insulin 100 unit/mL (3 mL) pen INJECT 20 UNITS SUBCUTANEOUSLY EVERY NIGHT lisinopril 20 mg tablet Take 20 mg by mouth in the morning. metFORMIN (Glucophage) 500 mg tablet Take 500 mg by mouth in the morning and at bedtime. metoclopramide (Reglan) 10 mg tablet 1 tablet before meals Orally four times daily metoprolol tartrate (Lopressor) 25 mg tablet Take 25 mg by mouth in the morning and at bedtime. nitroglycerin (Nitrostat) 0.[address] 1 tablet under the tongue if needed every 5 minutes for chapincito... (REFER TO PRESCRIPTION NOTES). No current facility-administered medications on file prior to visit. Allergies Penicillins Physical Exam VITAL SIGNS: BP 128/87 (BP Location: Left arm, Patient Position: Sitting) Pulse 102 Ht 1.651 m (5' 5 ) Wt 83.5 kg (184 lb) SpO2 97% BMI 30.62 kg/m??? Constitutional: Well developed, Well nourished, No acute distress, Non-toxic appearance. HENT: Normocephalic, Atraumatic, Bilateral external ears have normal appearance, Nose appears normal, nares are patent. Eyes: PERRLA, EOMI, Conjunctiva normal, No discharge. Neck: Normal range of motion, No tenderness, Supple, No stridor. No cervical lymphadenopathy noted. Cardiovascular: Normal heart rate, Normal rhythm, No murmurs, No rubs, No gallops. Thorax & Lungs: Normal breath sounds, No respiratory distress, No wheezing, No chest tenderness to palpation. Abdomen: Bowel sounds normal, Soft, Nontender, No masses, No pulsatile masses. Skin: Warm, Dry, No erythema, No rash. Back: No tenderness, No CVA tenderness. Extremities: Intact distal pulses, No edema, No tenderness, No cyanosis, No clubbing. Musculoskeletal: Grossly normal strength in extremities Neurologic: Alert & oriented x 3, no gross focal neurological deficits Psychiatric: Affect normal, Judgment normal, Mood normal. EKG results: No results found for this or any previous visit (from the past 4464 hour(s)). Echo results: No echocardiogram results found for the past 12 months Radiology: No image results found. Impression: -CAD s/p PCI of Lcx -HTN -HLD -T2DM Plan: -DAPT for at least 1 year following NSTEMI, followed by Aspirin indefinitely -High intensi (more content not included)... [facility] 02-05-2023 Note New patient here to establish care. Ref from Dr. Wolf for recent NSTEMI w/ PCI at [facility]. She wanted to see cardiology closer to home. She was started on Brilinta s/p PCI and is tolerating it well. [facility] 01-24-2023 Note Admission and Discha rge Information Admitting Physician - Bobby ALMONTE MDfo Consulting Physician - Kriss HAIDER, Abhishek Agudelo. Admitting Diagnoses: Discharge Diagnoses 1. NSTEMI (non-ST elevation myocardial infarction), 01/22/2023 2. Coronary artery disease, 01/23/2023 3. Chest pain, 01/21/2023 4. Elevated troponin, 01/21/2023 5. Hypertensive urgency, 01/21/2023 6. Right shoulder pain, 01/21/2023 7. Leukocytosis, 01/21/2023 8. Hyperglycemia, 01/21/2023 9. Hyponatremia, 01/21/2023 10. Metabolic acidosis, 01/21/2023 11. HTN (hypertension), 01/21/2023 12. Diabetes mellitus, 01/21/2023 13. Obese, 01/21/2023 14. On deep vein thrombosis (DVT) prophylaxis, 01/21/2023 Chest pain, 01/21/2023 Procedure History PCI - Percutaneous coronary intervention. Hospital Course 40-year-old female noncigarette smoker with history of diabetes mellitus, hypertension, obesity presented with complaints of chest pain, right shoulder pain. She was subsequently admitted to [facility] with acute NSTEMI, elevated troponin, hypertensive urgency, right shoulder pain. She was treated with aspirin, Brilinta, Lipitor, nitroglycerin, Lovenox. She was also treated with lisinopril and Lopressor. She was seen in consultation by the presser first and underwent echocardiogram that was essentially normal. She also underwent a left heart catheterization that revealed stenosis of the left circumflex artery and was stented with 1 drug-eluting stent. Patient's overall condition improved and chest pain and shoulder pain resolved and she was anxious to be discharged home. She was seen prior to discharge and remained in an improved and stable condition for discharge and was subsequently discharged home on aspirin, Brilinta, Lipitor, Lopressor, lisinopril, nitroglycerin sublingual as needed. She has been advised to follow-up with her primary care physician as well as the [facility] accordingly. Physical Exam General: alert, no acute distress Skin: warm, dry Head: no trauma, normocephalic Neck: Trachea midline, no adenopathy, no tenderness Eye: normal conjunctiva, sclera clear ENMT: TM's clear, oral mucosa moist, no pharyngeal erythema or exudate Cardiovascular: regular rate and rhythm, normal peripheral perfusion Respiratory: Lungs CTA, respirations non labored Chest wall: no deformity. Gastrointestinal: soft, non distended, no tenderness, no guarding.obese. Bowel sounds intact. Back: No tenderness, Normal ROM, Normal alignment. Extremities: no deformity, no trauma Neurological: oriented x 4, LOC appropriate for age, CN II-XII intact, motor strength equal & normal bilaterally, sensation equal & normal bilaterally, speech normal Psychiatric: cooperative, affect appropriate for age, normal judgement, normal psychiatric thoughts. Laboratory Results Automated Diff (01/22/2023) Neutro Auto - 69.9 % Lymph Auto - 24.9 % Hardeman Auto - 4.6 % Eos Auto - 0.2 % Basophil Auto - 0.4 % Neutro Absolute - 7.4 E9/L Lymph Absolute - 2.6 E9/L Hardeman Absolute - 0.5 E9/L Eos Absolute - 0.0 E9/L Basophil Absolute - 0.0 E9/L Beta-hydroxybutyrate (01/21/2023) Beta HB Qnt - 0.86 mmol/L BMP (01/22/2023) Glucose Lvl - 293 mg/dL BUN - 20 mg/dL Creatinine - 0.6 mg/dL BUN/Creat Ratio - 33 Sodium Lvl - 131 mmol/L Potassium Lvl - 4.0 mmol/L Chloride - 107 mmol/L CO2 - 23 mmol/L AGAP - 5 mEq/L Calcium Lvl - 8.0 mg/dL BMP (01/23/2023) Glucose Lvl - 183 mg/dL BUN - 11 mg/dL Creatinine - 0.5 mg/dL BUN/Creat Ratio - 22 Sodium Lvl - 135 mmol/L Potassium Lvl - 3.8 mmol/L Chloride - 108 mmol/L CO2 - 19 mmol/L AGAP - 12 mEq/L Calcium Lvl - 8.2 mg/dL Capillary Glucose POC (01/23/2023) Glucose Cap - 255 mg/dL POC Device SN - [id number] POC User ID - [id number] POC Username - LESLY PARR CBC w/ Auto Diff (01/22/2023) WBC - 10.6 E9/L RBC - 4.4 E12/L Hgb - 12.5 gm/dL Hct - 35.5 % MCV - 81.5 fL MCH - 28.6 pg MCHC - 35.1 gm/dL RDW - 14.0 % Platelet - 246.0 E9/L MPV - 8.9 fL CBC w/ Indices (01/23/2023) WBC - 9.5 E9/L RBC - 4.6 E12/L Hgb - 13.3 gm/dL Hct - 38.3 % MCV - 83.1 fL MCH - 28.9 pg MCHC - 34.8 gm/dL RDW - 14.2 % Platelet - 237.0 E9/L MPV - 8.6 fL eGFR (01/23/2023) eGFR - 118 mL/min/1.73 m2 Fasting Lipid Profile (01/22/2023) Chol - 205 mg/dL Trig - 300 mg/dL HDL - 35 mg/dL LDL Direct - 115 mg/dL VLDL - 60 mg/dL Hemoglobin A1c (01/22/2023) Hgb A1C % - 11.1 % Magnesium Level (01/23/2023) Magnesium - 1.5 mg/dL Troponin (01/23/2023) Troponin - 1304.50 pg/mL Troponin 0 Hr. (01/21/2023) Troponin - 201.10 pg/mL Troponin 3 Hr. (01/21/2023) Troponin - 258.00 pg/mL Troponin 6 Hr. (01/21/2023) Troponin - 467.70 pg/mL Troponin 9 Hr. (01/22/2023) Troponin - 445.10 pg/mL UA With Cult Reflex (01/21/2023) UA Spec Desc - Clean Catch UA Color - Straw3 UA Clarity - Clear2 UA Spec Grav - 1.015 UA pH - 6.0 UA Protein - NEGATIVE1 UA (more content not included)... [facility] Comment on above: Result Comment: Elec tronically Signed By: Ellie ALMONTE MD\.br\Date and Time Signed: 01/24/23 19:32 EDT 01-23-2023 Evaluation + Plan note Extrac donovan from: Title:APSO Note Author:Ellie ALMONTE MD Date: 40-year-old female noncigarette smoker with history of diabetes mellitus, hypertension, obesity presented with chest pain, right shoulder pain and was admitted with acute NSTEMI, elevated troponin, hypertensive urgency and right shoulder pain and was found to have stenosis of the left circumflex artery requiring 1 drug- eluting stent placement. 1. NSTEMI (non-ST elevation myocardial infarction) (I21.4: Non-ST elevation (NSTEMI) myocardial infarction) Acute NSTEMI present on admission. Status post 1 drug-eluting stent placement in left circumflex artery on 01/22/2023. Continue on aspirin, Brilinta, Lipitor, lisinopril, Lopressor. Treated with Lovenox. Ordered: Sbsq Hospital Care/Day Moderate 35 Minutes 35010 2. Coronary artery disease (I25.10: Atherosclerotic heart disease of [place] coronary artery without angina pectoris) As seen on cardiac catheterization. Patient has coronary artery disease with mid left circumflex artery occlusion requiring 1 drug-eluting stent placement on 01/22/2023. Continue on aspirin, Brilinta, Lipitor, lisinopril and Lopressor. Ordered: Sbsq Hospital Care/Day Moderate 35 Minutes [id number] 3. Chest pain (R07.9: Chest pain, unspecified) Secondary to above. Resolved. Ordered: Sbsq Hospital Care/Day Moderate 35 Minutes 34697 4. Elevated troponin (R77.8: Other specified abnormalities of plasma proteins) Secondary to above. Resolved. Ordered: Sbsq Hospital Care/Day Moderate 35 Minutes 95552 5. Hypertensive urgency (I16.0: Hypertensive urgency) Resolved. Continue on lisinopril and metoprolol. Ordered: Sbsq Hospital Care/Day Moderate 35 Minutes 79813 6. Right shoulder pain (M25.511: Pain in right shoulder) Secondary to above #1. With atypical presentation. Ordered: Sbsq Hospital Care/Day Moderate 35 Minutes 00323 7. Leukocytosis (D72.829: Elevated white blood cell count, unspecified) Secondary to recent steroid. Resolved. 8. Hyperglycemia (R73.9: Hyperglycemia, unspecified) Secondary to recent steroid. Resolved. 9. Hyponatremia (E87.1: Hypo-osmolality and hyponatremia) Resolved. 10. Metabolic acidosis (E87.20: Acidosis, unspecified) Improved. 11. HTN (hypertension) (I10: Essential (primary) hypertension) Continue on metoprolol and lisinopril. 12. Diabetes mellitus (E11.9: Type 2 diabetes mellitus without complications) Continue on Lantus, metformin and sliding scale insulin. 13. Obese (E66.9: Obesity, unspecified) Recommend therapeutic lifestyle modification changes. 14. On deep vein thrombosis (DVT) prophylaxis (Z79.899: Other halfway (current) drug therapy) SCDs. Disposition: Home either today or in a.m. pending cardiology final recommendations. I discussed the diagnosis and plan of care with the patient at the bedside. Moderate level of MDM based on addressing above issues. This documentation was transcribed using voice recognition software. Several attempts were made to ensure accuracy. However inadvertent computerized sciences dean errors may be present. Ellie Almonte. Hospitalist. Orders: atorvastatin, 80 mg = 2 tab(s), Tab, Oral, Bedtime, Routine, Start date 01/23/23 21:00:00 EDT, 01/23/23 7:16:00 EDT citalopram, 20 mg = 1 tab(s), Tab, Oral, Daily, Routine, Start date 01/22/23 10:00:00 EDT glimepiride, 4 mg = 2 tab(s), Tab, Oral, Daily, Routine, Start date 01/22/23 10:00:00 EDT insulin glargine, 20 unit(s) = 0.2 mL, Injection-Insulin, SubCutaneous, Once a day (at bedtime), Routine, Start date 01/22/23 21:00:00 EDT lidocaine topical, 1 patch(es), Patch, TransDermal, Once, Stop date 01/22/23 12:00:00 EDT, Routine, Start date 01/22/23 12:00:00 EDT, Vancomycin Pharmacy to Dose Consult lorazepam, 0.5 mg = 1 tab(s), Tab, Oral, TID PRN Anxiety, Routine, Start date 01/22/23 11:19:00 EDT, 01/22/23 11:19:00 EDT metoprolol, 25 mg = 1 tab(s), Tab, Oral, BID, Routine, Start date 01/22/23 11:30:00 EDT, 01/22/23 11:30:00 EDT perflutren, 1.3 mL, Injection, IV Push, Once, Stop date 01/22/23 11:00:00 EDT, Routine, Start date 01/22/23 11:00:00 EDT remove patch, 1 patch(es), Patch, Topical, Once, Stop date 01/23/23 0:00:00 EDT, Physician Stop, 01/23/23 0:00:00 EDT Capillary Glucose POC Capillary Glucose POC Capillary Glucose POC Capillary Glucose POC ECG 12 Lead Adult Echo Transthoracic w/ Contrast HgbA1c Referral to [facility] Extracted from: Title:Procedure Note Heart & Vascular Author:Raymundo syed MD, Abhishek Hagan Date:01/22/23 1. Chest pain (R07.9: Chest pain, unspecified) Ordered: ticagrelor, 90 mg = 1 tab(s), Tab, Oral, BID, Routine, Start date 01/23/23 9:00:00 EDT, 01/22/23 22:10:00 EDT 2. Elevated troponin (R77.8: Other specified abnormalities of plasma proteins) Ordered: ticagrelor, 90 mg = 1 tab(s), Tab, Oral, BID, Routine, Start date 01/23/23 9:00:00 EDT, 01/22/23 22:10:00 EDT 3. NSTEMI (non-ST elevation myocardial infarction) (I21.4: Non-ST elevation (NSTEMI) myocardial infarction) Ordered: ticagrelor, 90 mg = 1 tab(s), Tab, Oral, BID, Routine, Start date 01/23/23 9:00:00 EDT, 01/22/23 22:10:00 EDT 4. Hypertensive urgency (I16.0: Hypertensive urgency) Ordered: ticagrelor, 90 mg = 1 tab(s), Tab, Oral, BID, Routine, Start date 01/23/23 9:00:00 EDT, 01/22/23 22:10:00 EDT 5. Right shoulder pain (M25.511: Pain in right shoulder) Ordered: ticagrelor, 90 mg = 1 tab(s), Tab, Oral, BID, Routine, Start date 01/23/23 9:00:00 EDT, 01/22/23 22:10:00 EDT 6. Leukocytosis (D72.829: Elevated white blood cell count, unspecified) 7. Hyperglycemia (R73.9: Hyperglycemia, unspecified) 8. Hyponatremia (E87.1: Hypo-osmolality and hyponatremia) 9. Metabolic acidosis (E87.20: Acidosis, unspecified) 10. HTN (hypertension) (I10: Essential (primary) hypertension) 11. Diabetes mellitus (E11.9: Type 2 diabetes mellitus without complications) 12. Obese (E66.9: Obesity, unspecified) 13. On deep vein thrombosis (DVT) prophylaxis (Z79.899: Other machine long goods helper (current) drug therapy) Orders: ticagrelor, 180 mg = 2 tab(s), Tab, Oral, Once, Stop date 01/22/23 14:32:00 EDT, NOW, Start date 01/22/23 14:32:00 EDT, 01/22/23 14:32:00 EDT ticagrelor, Tab, Misc, Once, Stop date 01/22/23 14:32:48 EDT, Physician Stop, 01/22/23 14:32:48 EDT CV Cardiovascular Extracted from: Title:Consult Note Author:Kriss HAIDER, Sofi Hagan Date:01/22/23 43-year-old female with non- STEMI. Significant risk factors. Suspect epicardial CAD. Recommend heart catheterization which we will do today urgently. Risks, benefits, alternatives, and personnel were discussed at length and the patient agrees to proceed. Additional time was devoted to reviewing Covid risk as well as lack of surgical backup (level 2). The patient is aware of these risks. 1. Chest pain (R07.9: Chest pain, unspecified) Ordered: ticagrelor, 90 mg = 1 tab(s), Tab, Oral, BID, Routine, Start date 01/23/23 9:00:00 EDT, 01/22/23 22:10:00 EDT 2. Elevated troponin (R77.8: Other specified abnormalities of plasma proteins) Ordered: ticagrelor, 90 mg = 1 tab(s), Tab, Oral, BID, Routine, Start date 01/23/23 9:00:00 EDT, 01/22/23 22:10:00 EDT 3. NSTEMI (non-ST elevation myocardial infarction) (I21.4: Non-ST elevation (NSTEMI) myocardial infarction) Ordered: ticagrelor, 90 mg = 1 tab(s), Tab, Oral, BID, Routine, Start date 01/23/23 9:00:00 EDT, 01/22/23 22:10:00 EDT 4. Hypertensive urgency (I16.0: Hypertensive urgency) Ordered: ticagrelor, 90 mg = 1 tab(s), Tab, Oral, BID, Routine, Start date 01/23/23 9:00:00 EDT, 01/22/23 22:10:00 EDT 5. Right shoulder pain (M25.511: Pain in right shoulder) Ordered: ticagrelor, 90 mg = 1 tab(s), Tab, Oral, BID, Routine, Start date 01/23/23 9:00:00 EDT, 01/22/23 22:10:00 EDT 6. Leukocytosis (D72.829: Elevated white blood cell count, unspecified) 7. Hyperglycemia (R73.9: Hyperglycemia, unspecified) 8. Hyponatremia (E87.1: Hypo-osmolality and hyponatremia) 9. Metabolic acidosis (E87.20: Acidosis, unspecified) 10. HTN (hypertension) (I10: Essential (primary) hypertension) 11. Diabetes mellitus (E11.9: Type 2 diabetes mellitus without complications) 12. Obese (E66.9: Obesity, unspecified) 13. On deep vein thrombosis (DVT) prophylaxis (Z79.899: Other halfway (current) drug therapy) Orders: ticagrelor, 180 mg = 2 tab(s), Tab, Oral, Once, Stop date 01/22/23 14:32:00 EDT, NOW, Start date 01/22/23 14:32:00 EDT, 01/22/23 14:32:00 EDT ticagrelor, Tab, Misc, Once, Stop date 01/22/23 14:32:48 EDT, Physician Stop, 01/22/23 14:32:48 EDT CV Cardiovascular Extracted from: Title:APSO Note Author:GAGE HAIDER, Mbanefo Date: 43-year-old female noncigarette smoker with history of diabetes mellitus, hypertension, obesity presented with chest pain, right shoulder pain and admitted with chest pain, elevated troponin, leukocytosis, hyperglycemia, hyponatremia, metabolic acidosis, right shoulder pain. 1. Chest pain (R07.9: Chest pain, unspecified) Chest pain secondary to acute coronary syndrome. Resolved. Continue on aspirin, nitroglycerin as needed, morphine and oxygen. Cardiology consult pending. Ordered: [facility] Hospital Care/Day Moderate 35 Minutes [id number] 2. Elevated troponin (R77.8: Other specified abnormalities of plasma proteins) Elevated troponin secondary to NSTEMI. Cardiology consult pending. Continue on aspirin, Lipitor, Lovenox. Echocardiogram pending. Ordered: [facility] Hospital Care/Day Moderate 35 Minutes [id number] 3. NSTEMI (non-ST elevation myocardial infarction) (I21.4: Non-ST elevation (NSTEMI) myocardial infarction) Acute NSTEMI present on admission. Cardiology consult pending. Echocardiogram pending. Continue on aspirin, Lipitor, lisinopril, Lovenox. Ordered: [facility] Hospital Care/Day Moderate 35 Minutes [id number] 4. Hypertensive urgency (I16.0: Hypertensive urgency) Resolved. Continue lisinopril. Ordered: [facility] Hospital Care/Day Moderate 35 Minutes 72542 5. Right shoulder pain (M25.511: Pain in right shoulder) Resolved. Ordered: [facility] Hospital Care/Day Moderate 35 Minutes 37664 6. Leukocytosis (D72.829: Elevated white blood cell count, unspecified) Secondary to recent steroid. Resolved. Ordered: 7. Hyperglycemia (R73.9: Hyperglycemia, unspecified) Secondary to steroid. Resolved. 8. Hyponatremia (E87.1: Hypo-osmolality and hyponatremia) Secondary to hyperglycemia. Improved. Sodium level 131. 9. Metabolic acidosis (E87.20: Acidosis, unspecified) Resolved. 10. HTN (hypertension) (I10: Essential (primary) hypertension) Continue lisinopril. 11. Diabetes mellitus (E11.9: Type 2 diabetes mellitus without complications) Continue on sliding scale insulin, Lantus and metformin. 12. Obese (E66.9: Obesity, unspecified) Recommend therapeutic lifestyle modification changes. 13. On deep vein thrombosis (DVT) prophylaxis (Z79.899: Other machine long goods helper (current) drug therapy) Lovenox. Disposition: Pending echocardiogram and cardiology consult. I discussed the diagnosis and plan of care with the patient at the bedside. Moderate level of MDM based on addressing above issues. This documentation was transcribed using voice recognition software. Several attempts were made to ensure accuracy. However inadvertent computerized sciences dean errors may be present. Ellie Almonte. Hospitalist. Extracted from: Title:Admission H & P Author:Ellie ALMONTE MD Date:01/21/23 43-year-old female noncigarette smoker with history of diabetes mellitus, hypertension, obesity presented with chest pain, right shoulder pain and is being admitted with chest pain, elevated troponin, leukocytosis, hyperglycemia, hyponatremia, metabolic acidosis, right shoulder pain. 1. Chest pain (R07.9: Chest pain, unspecified) Chest pain rule out acute coronary syndrome. Admit to regular medical floor. Reviewed labs so far cardiac enzymes are slightly positive. We will complete serial cardiac enzymes. I started patient on aspirin, morphine, nitroglycerin as needed and oxygen. Cardiology consulted. Ordered: Initial Hospital Care/Day High 75 Minutes 29992 2. Elevated troponin (R77.8: Other specified abnormalities of plasma proteins) Elevated troponin mild. We will complete serial cardiac enzymes. Started patient on aspirin. If troponin trends up we will start patient on Lovenox or IV heparin. Check fasting lipid profile. Echocardiogram. Ordered: Initial Hospital Care/Day High 75 Minutes [id number] 3. Hypertensive urgency (I16.0: Hypertensive urgency) Continue lisinopril. IV hydralazine as needed. Ordered: Initial Hospital Care/Day High 75 Minutes 04093 4. Right shoulder pain (M25.511: Pain in right shoulder) Musculoskeletal in origin. Started patient on as needed pain medications. Ordered: Initial Hospital Care/Day High 75 Minutes 23559 5. Leukocytosis (D72.829: Elevated white blood cell count, unspecified) Secondary to steroid effect. Ordered: Initial Hospital Care/Day High 75 Minutes 70731 6. Hyperglycemia (R73.9: Hyperglycemia, unspecified) Secondary to steroid effect. Started patient on IV fluid. Started patient on sliding scale insulin Long-acting insulin. 7. Hyponatremia (E87.1: Hypo-osmolality and hyponatremia) Secondary to hyperglycemia. Started patient on IV fluid. Control glucose with insulin. 8. Metabolic acidosis (E87.20: Acidosis, unspecified) Secondary to hyperglycemia. Started patient on IV fluid. Repeat BMP in AM. 9. HTN (hypertension) (I10: Essential (primary) hypertension) Blood pressure controlled. On lisinopril. 10. Diabetes mellitus (E11.9: Type 2 diabetes mellitus without complications) On metformin and insulin. We will verify home medications and resume appropriately. 11. Obese (E66.9: Obesity, unspecified) Recommend therapeutic lifestyle modification changes. 12. On deep vein thrombosis (DVT) prophylaxis (Z79.899: Other halfway (current) drug therapy) Lovenox. Disposition: The patient will be admitted under observation status and I anticipate she will require less than 2 midnight hospital stay for the treatment of above chest pain, right shoulder pain, elevated troponin, hyperglycemia, metabolic acidosis and hyponatremia. I discussed the diagnosis and plan of care with the patient at the bedside. High level of MDM based on addressing above issues. This documentation was transcribed using voice recognition software. Several attempts were made to ensure accuracy. However inadvertent computerized sciences dean errors may be present. Ellie Almonte. Hospitalist. Orders: acetaminophen, 650 mg = 2 tab(s), Tab, Oral, q6hr PRN Pain, Routine, Start date 01/21/23 19:07:00 EDT, 01/21/23 19:07:00 EDT aspirin, 81 mg = 1 tab(s), Tab-EC, Oral, Daily, Routine, Start date 01/22/23 9:00:00 EDT, 01/21/23 19:07:00 EDT atorvastatin, 40 mg = 1 tab(s), Tab, Oral, Bedtime, Routine, Start date 01/21/23 21:00:00 EDT, 01/21/23 19:08:00 EDT diphenhydrAMINE, 25 mg = 1 cap(s), Cap, Oral, q6hr PRN Itching, Routine, Start date 01/21/23 19:07:00 EDT, 01/21/23 19:07:00 EDT enoxaparin, 40 mg = 0.4 mL, Injection, SubCutaneous, Daily, Routine, Start date 01/22/23 9:00:00 EDT, 01/21/23 19:07:00 EDT glucose, 50 mL, Soln-IV, IV Push, Once PRN Blood glucose, STAT, Start date 01/21/23 19:02:00 EDT hydrALAZINE, 10 mg = 0.5 mL, Injection, IV Push, q6hr PRN Other (see comment), Routine, Start date 01/21/23 19:07:00 EDT, 01/21/23 19:07:00 EDT insulin lispro, 0-10 Units, Injection-Insulin, SubCutaneous, QIDACHS, Routine, Start date 01/21/23 21:00:00 EDT morphine, 2 mg = 1 mL, Injection, IV Push, q4hr PRN Pain for 5 day(s), Stop date 01/26/23 19:06:00 EDT, Routine, Start date 01/21/23 19:07:00 EDT, 01/21/23 19:07:00 EDT ondansetron, 4 mg = 2 mL, Injection, IV Push, q6hr PRN Nausea, Routine, Start date 01/21/23 19:07:00 EDT, 01/21/23 19:07:00 EDT Sodium Chloride 0.45% intravenous solution 1,000 mL, 1,000 mL, IV, 100 mL/hr, for 2 dose(s), Stop date 01/22/23 15:06:00 EDT, Routine, Start date 01/21/23 19:07:00 EDT, 10 hour(s), Total volume (mL): 1,000, 83 kg, 1.95, m2 zolpidem, 5 mg = 1 tab(s), Tab, Oral, Bedtime PRN Sleep, Routine, Start date 01/21/23 19:07:00 EDT, 01/21/23 19:07:00 EDT Basic Metabolic Panel Cardiac Monitoring CBC w/ Auto Diff Consult to Cardiology Diabetic/Calorie Control Diet Echo Transthoracic Complete HgbA1c Hypoglycemia Protocol Responsive Patient Hypoglycemia Protocol Unresponsive Patient Lipid Panel Oxygen Protocol Place in Status Pulse Oximetry Resuscitation Status - Full Routine Capillary Glucose POC Up ad Rosa Vital Signs Weight Extracted from: Title:ED Note Author:Andres Mejia, aDisy Heath te:01/21/23 1. Hypertensive urgency (I16 .0: Hypertensive urgency) 2. Chest pain (R07.9: Chest pain, unspecified) 3. Elevated troponin (R77.8: Other specified abnormalities of plasma proteins) 4. Right shoulder pain (M25.511: Pain in right shoulder) 5. Leukocytosis (D72.829: Elevated white blood cell count, unspecified) 6. Hyperglycemia (R73.9: Hyperglycemia, unspecified) 7. Hyponatremia (E87.1: Hypo-osmolality and hyponatremia) 8. Metabolic acidosis (E87.20: Acidosis, unspecified) 9. HTN (hypertension) (I10: Essential (primary) hypertension) 10. Diabetes mellitus (E11.9: Type 2 diabetes mellitus without complications) 11. Obese (E66.9: Obesity, unspecified) 12. On deep vein thrombosis (DVT) prophylaxis (Z79.899: Other machine long goods helper (current) drug therapy) Orders: nitroglycerin, 0.4 mg = 1 tab(s), Tab, SubLingual, q5min PRN Chest pain for 3 dose(s), Stop date Limited # of times, STAT, Start date 01/21/23 17:05:00 EDT, 01/21/23 17:05:00 EDT Sodium Chloride 0.9% intravenous solution, 1,000 mL, Soln-IV, IV, Once, Stop date 01/21/23 17:09:00 EDT, STAT, Start date 01/21/23 17:09:00 EDT, Infuse over 61, minute(s) ED Physician consult Hospitalist for continued care [facility]06-24-2023 Hospital Discharge instructions Patient Education 01/23/2023 09:22:37 CV - Cardiovascular PCI Discharge Instructions (CUSTOM) [place], [place] Cardiovascular PCI DISCHARGE INSTRUCTIONS Diet: Resume pre-procedure diet. Increase water intake the next 2 days to flush dye out of the body. Activity: If groin access: Limit activity today. Do not operate a vehicle, machinery or power tools. NO LIFTING OVER 10 POUNDS (a gallon of milk weighs 8 pounds) for 3 days. Limit climbing stairs, bending, squatting and stooping for 3 days. May resume driving in 24 hours. Let pain/discomfort guide your activity. If you are having pain, stop. No sexual activity for 1 week. Return to the Emergency Room if you have trouble breathing, walking or nausea and vomiting. If radial access: Limit your activity today. Do not operate a vehicle, machinery or power tools. NO LIFTING OVER 3 POUNDS for 3 days. Do not bend your wrist for 24 hours. May resume driving in 24 hours. Let pain/discomfort guide your activity. If you are having pain, stop. No sexual activity for 1 week. Return to the Emergency Room if you have trouble breathing, walking or nausea and vomiting. Medications: Resume pre-procedure medication, unless otherwise directed. Hold the following medications for 48 hours post procedure: Actoplus MetGlucophageGlucophage XR GlucovanceAvandametFortamet Anm-plmsgpgwqBotxqlElhb-iypfnaxfe GlumetzaJanumetMetaglip RiometGlycomet Minimal pain, soreness and/or discomfort is expected. If you are prescribed an aspirin and/or antiplatelet (such as Plavix, Brilinta or Effient) do NOT stop taking these medications for any reason without talking to your presser first Site Care: Do not remove dressing for 24 hours unless it becomes saturated, then replace. Keep site clean and dry; inspect site daily. Do not use any lotions, powders, or ointments at the groin or wrist site for 1 week. May shower 24 hours after the procedure. Clean site with soap and water. Pat dry and apply band aid. No tub baths, swimming or hot tubs for 3 days. Post Procedure: Soreness and tenderness to the site can last up to one week. Bruising may occur to site. A responsible adult should be with you for the first 24 hours after you arrive home. Keep follow-up appointment. Carry your stent card with you at all times. This provides information about your heart disease forany doctor who cares for you. No smoking for 24 hours as it increases the risk of developing blood clots. If you are interested in smoking cessation, contact [facility] at [phone], ext. [phone]. In the event you are unable to reach your physician, please call [facility] at [phone] and the orange picker machine operator will assist you. Seek Medicare Care for: Bleeding: Apply continuous pressure to the site and Call 911. Should the arm or leg become cold, numb, blue or white call your physician immediately. Signs of infection are redness, warmth, swelling, getting more sore, colored drainage, fever or chills Chest pain Blood in your urine or stool Black tarry stools Follow Up Care 01/21/2023 16:19:43 With:Abhishek Monterroso Address: [address] [place] [address]- Business (1) When:2 weeks Comments:Call for followup appointment With:Gentry Wolf Address: [facility] [place] [address]- Business (1) When:01/27/2023 09:30:00 [facility]06-24-2023 NoteProcedure [facility] poss PCI via right radial Patient seen and examined. The risk/benefits of the procedure were thoroughly discussed with patient including specific attention to lack of onsite surgical backup and risk of karl covid, and the patient agrees to proceed. Airway Assessment: Class I: Visualization of the soft palate, fauces, uvula, anterior and posteriorpillars Airway Abnormalities: none ASA Classification: ASA 2: Mild systemic disease Risks/Benefits of IV Sedation: Have been explained IV Sedation Plan: Patient agrees to IV sedation plan Assessment/Plan 1. Chest pain (R07.9: Chest pain, unspecified) Ordered: ticagrelor, 90 mg = 1 tab(s), Tab, Oral, BID, Routine, Start date 01/23/23 9:00:00 EDT, 01/22/23 22:10:00 EDT 2. Elevated troponin (R77.8: Other specified abnormalities of plasma proteins) Ordered: ticagrelor, 90 mg = 1 tab(s), Tab, Oral, BID, Routine, Start date 01/23/23 9:00:00 EDT, 01/22/23 22:10:00 EDT 3. NSTEMI (non-ST elevation myocardial infarction) (I21.4: Non-ST elevation (NSTEMI) myocardial infarction) Ordered: ticagrelor, 90 mg = 1 tab(s), Tab, Oral, BID, Routine, Start date 01/23/23 9:00:00 EDT, 01/22/23 22:10:00 EDT 4. Hypertensive urgency (I16.0: Hypertensive urgency) Ordered: ticagrelor, 90 mg = 1 tab(s), Tab, Oral, BID, Routine, Start date 01/23/23 9:00:00 EDT, 01/22/23 22:10:00 EDT 5. Right shoulder pain (M25.511: Pain in right shoulder) Ordered: ticagrelor, 90 mg = 1 tab(s), Tab, Oral, BID, Routine, Start date 01/23/23 9:00:00 EDT, 01/22/23 22:10:00 EDT 6. Leukocytosis (D72.829: Elevated white blood cell count, unspecified) 7. Hyperglycemia (R73.9: Hyperglycemia, unspecified) 8. Hyponatremia (E87.1: Hypo-osmolality and hyponatremia) 9. Metabolic acidosis (E87.20: Acidosis, unspecified) 10. HTN (hypertension) (I10: Essential (primary) hypertension) 11. Diabetes mellitus (E11.9: Type 2 diabetes mellitus without complications) 12. Obese (E66.9: Obesity, unspecified) 13. On deep vein thrombosis (DVT) prophylaxis (Z79.899: Other machine long goods helper (current) drug therapy) Orders: ticagrelor, 180 mg = 2 tab(s), Tab, Oral, Once, Stop date 01/22/23 14:32:00 EDT, NOW, Start date 01/22/23 14:32:00 EDT, 01/22/23 14:32:00 EDT ticagrelor, Tab, Misc, Once, Stop date 01/22/23 14:32:48 EDT, Physician Stop, 01/22/23 14:32:48 EDT [facility]ovascular[facility] CenterComment on above:Result Comment: Electronically Signed By: Kriss HAIDER, Abhishek Haagn\.br\Date and Time Signed: 01/22/23 22:12 [id number] NoteEchocardiology Procedure Exam Date/Time Accession # Ordering Dr. Gonzalez Transthoracic w/ 01/22/2023 11:42 EDT [id number] Ellie ALMONTE MD Contrast CPT code 24107 10026 Reason for Exam (Echo Transthoracic w/ Contrast) Chest pain Report [facility] [address] [place] [address] Adult Echocardiogram Report Name: ESCOBAR NASH Study Date: 01/22/2023 09:56 AM BP: 129/81 mmHg Patient Location: [address] [place] [address] HR: 89 : 1980 Gender: Female Height: 65 in Age: 43 yrs Ethnicity: [facility] Weight: 183 lb Reason For Study: Chest pain BSA: 1.9 m2 History: DM, HTN Ordering Physician: Ellie ALMONTE Performed By: Rema Meléndez, [facility] Interpretation Summary Ejection Fraction = 60-65%. Normal ECHO Procedure A complete two-dimensional transthoracic echocardiogram was performed using contrast (2D, M-mode, spectral and color flow Doppler). A complete two-dimensional transthoracic echocardiogram was performed (2D, M-mode, spectral and color flow Doppler). Study quality is good. Left Ventricle The left ventricle is normal in size. There is normal left ventricular wall thickness. Ejection Fraction = 60-65%. The left ventricular wall motion is normal. Normal diastolic function. Left Atrium The left atrial size is normal. Right Atrium Right atrial size is normal. Right Ventricle Echocardiology Report The right ventricular systolic function is normal. The right ventricle is normal size. The right ventricular wall motion is normal. Aortic Valve The aortic valve is trileaflet. No aortic regurgitation. There is no aortic stenosis. Mitral Valve The mitral valve is normal in structure and function. There is no mitral regurgitation noted. No mitral valve stenosis. Tricuspid Valve Structurally normal tricuspid valve. No evidence of tricuspid regurgitation. Pulmonic Valve No evidence of stenosis. There is no pulmonic valve regurgitation. Arteries The aortic root is normal in size. Normal ascending aorta. Pulmonary artery diameter is normal. Venous The inferior vena cava is normal in size, and collapses normally with respiration. Effusion There is no pericardial effusion. MMode/2D Measurements & Calculations RVDd: 2.9 cm LVIDd: 4.5 cm FS: 36.2 % Ao root diam: 2.7 cm IVSd: 1.2 cm LVIDs: 2.9 cm EDV(Teich): 93.6 ml LVPWd: 1.1 cm ESV(Teich): 31.9 ml Ao root area: 5.8 cm2 EF(Teich): 66.0 % LA dimension: 3.4 cm asc Aorta Diam: 3.1 cm LVOT diam: 1.8 cm LVLd ap4: 6.4 cm EDV(MOD-sp2): 59.7 ml LVOT area: 2.7 cm2 EDV(MOD-sp4): 91.3 ml ESV(MOD-sp2): 53.3 ml LVLs ap4: 5.2 cm EF(MOD-sp2): 10.7 % ESV(MOD-sp4): 14.4 ml EF(MOD-sp4): 84.2 % SV(MOD-sp4): 76.9 ml TAPSE: 2.1 cm Ao Sinus of Valsalva: 2.6 cm Ao Sinotubular Junction: 2.4 cm IVC Diam: 1.7 cm RVIDd/LVIDd: 0.65 EF (MOD-bp): 62.0 % Doppler Measurements & Calculations MV E max darian: 92.7 cm/sec MV dec time: 0.19 sec Ao V2 max: 102.5 cm/sec LV V1 max P.3 mmHg MV A max darian: 73.5 cm/sec Ao max P.2 mmHg LV V1 max: 76.2 cm/sec MV E/A: 1.3 ROLAND(V,D): 2.0 cm2 TR max darian: 244.3 cm/sec RAP systole: 3.0 mmHg AV VR: 0.75 Echocardiology Report TR max P.9 mmHg RVSP(TR): 26.9 mmHg FINAL REPORT Dictated: 01/22/2023 9:56 am Abhishek Monterroso MD Signed (Electronic Signature): 01/22/2023 12:06 pm Signed by: Abhishek Monterroso MD Transcribed by: [facility] Technologist: [facility]06-22-2023 Note Chief Complaint pt states just seen for arm pain, given rx steroid. 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 According to the patient she was in her usual state of health until several weeks ago when she developed right shoulder and arm pain. This was intermittent in nature. She was seen in an outside emergency room yesterday and was started on oral prednisone. However today she developed midsternal chest pain that she rated at 8/10. Chest pain is described as a acute sharp pain. Chest pain is worse when she has right arm pain. Chest pain is associated with some shortness of breath and palpitations. I n the emergency room she was found to have mildly elevated troponin and was referred for admission. Review of Systems Constitutional: no fever, no chills, no sweats, no weakness Skin: no Jaundice, no rash, no lesions, nopetechiae ENMT: no ear pain, no sore throat, no congestion, no hoarseness Respiratory: mild shortness of breath, no cough, no orthopnea, no wheezing Cardiovascular: moderate chest pain, mild palpitations, no edema Gastrointestinal: no nausea, no vomiting, no diarrhea, no GI bleeding Genitourinary: no dysuria, no hematuria, no discharge, no pain Musculoskeletal: no back pain, no trauma Neurologic: no headache, no dizziness, no numbness, no weakness Psychiatric: no sleeping problems, no irritability, no mood swings/depression. Heme/Lymph: no bleeding tendency, no bruising tendency, no petechiae, no swollen nodes Allergy/Immunologic: no seasonal allergies, no food allergies, no recurrent infections, no impairedimmunity Additional ROS info: Except as noted in the above Review of Systems and in the History of Present Illness all other systems have been reviewed and are negative or noncontributory. Scoring Kirkpatrick Fall Risk Score: 0 (01/21/23) Physical Exam Vitals & Measurements T: 36.6 ?C(Oral) HR: 66(Monitored) RR: 15 BP: 146/81 SpO2: 98% HT: 165 cm WT: 83 kg General: alert, no acute distress Skin: warm, dry Head: no trauma, normocephalic Neck: Trachea midline, no adenopathy, no tenderness Eye: normal conjunctiva, sclera clear ENMT: TM's clear, oral mucosa moist, no pharyngeal erythema or exudate Cardiovascular: regular rate and rhythm, normal peripheral perfusion Respiratory: Lungs CTA, respirations non labored Chest wall: no deformity. No chest wall tenderness. Gastrointestinal: soft, non distended, no tenderness, no guarding. Obese. Bowel sounds intact. Back: No tenderness, Normal ROM, Normal alignment. Extremities: no deformity, no trauma Neurological: oriented x 4, LOC appropriate for age, CN II-XII intact, motor strength equal & normal bilaterally, sensation equal & normal bilaterally, speech normal Psychiatric: cooperative, affect appropriate for age, normal judgement, normal psychiatric thoughts. Lab Results WBC: 14.2 E9/L High (01/21/23 16:35:00) RBC: 5.1 E12/L (01/21/23 16:35:00) HGB: 14.2 gm/dL (01/21/23 16:35:00) Hct: 41.9 % (01/21/23 16:35:00) MCV: 82.6 fL (01/21/23 16:35:00) MCH: 28 pg (01/21/23 16:35:00) MCHC: 33.9 gm/dL (01/21/23 16:35:00) RDW: 14.2 % (01/21/23 16:35:00) Platelet: 240 E9/L (01/21/23 16:35:00) MPV: 8.8 fL (01/21/23 16:35:00) Neutro Auto: 86.2 % High (01/21/23 16:35:00) Lymph Auto: 8.6 % Low (01/21/23 16:35:00) Hardeman Auto: 4.8 % (01/21/23 16:35:00) Eos Auto: 0.1 % (01/21/23 16:35:00) Basophil Auto: 0.3 % (01/21/23 16:35:00) Neutro Absolute: 12.3 E9/L High (01/21/23 16:35:00) Lymph Absolute: 1.2 E9/L (01/21/23 16:35:00) Hardeman Absolute: 0.7 E9/L (01/21/23 16:35:00) Eos Absolute: 0 E9/L (01/21/23 16:35:00) Basophil Absolute: 0 E9/L (01/21/23 16:35:00) Glucose Lvl: 491 mg/dL Critical (01/21/23 16:35:00) BUN: 23 mg/dL High (01/21/23 16:35:00) Creatinine: 0.7 mg/dL (01/21/23 16:35:00) eGFR: 109 mL/min/1.73 m2 (01/21/23 16:35:00) BUN/Creat Ratio: 33 High (01/21/23 16:35:00) Sodium Lvl: 129 mmol/L Low (01/21/23 16:35:00) Potassium Lvl: 4 mmol/L (01/21/23 16:35:00) Chloride: 101 mmol/L (01/21/23 16:35:00) CO2: 18 mmol/L Low (01/21/23 16:35:00) AGAP: 14 mEq/L (01/21/23 16:35:00) Calcium Lvl: 9 mg/dL (01/21/23 16:35:00) Troponin: 201.1 pg/mL Critical (01/21/23 16:35:00) Beta HB Qnt: 0.86 mmol/L High (01/21/23 16:35:00) UA Spec Desc: Clean Catch (01/21/23 17:53:00) UA Color: Straw3 Abnormal (01/21/23 17:53:00) UA Clarity: Clear2 (01/21/23 17:53:00) UA Spec Grav: 1.015 (01/21/23 17:53:00) UA pH: 6.0 (01/21/23 17:53:00) UA Protein: NEGATIVE1 (01/21/23 17:53:00) UA Glucose: 3+ Abnormal (01/21/23 17:53:00) UA Ketones: 1+ Abnormal (01/21/23 17:53:00) UA Bili: NEGATIVE1 (01/21/23 17:53:00) UA Blood: NEGATIVE1 (01/21/23 17:53:00) UA Nitrite: NEGATIVE1 (01/21/23 17:53:00) UA Urobilinogen: 0.2 (01/21/23 17:53 (more content not included)...[facility] CenterComment on above:Result Comment: Electronically Signed By: GAGE HAIDER, Ellie\.br\Date and Time Signed: 01/21/23 19:11 [id number] Note PROCEDURE: XR GI UPPER AIR KUB DUAL CONTRAST, XR CINERADIOGRAPHY, XR SMALL BOWEL FOLLOW THOUGH COMPARISON: None. HISTORY: nausea and vomiting TECHNIQUE: An air contrast upper gastrointestinal series was performed in the usual manner. Standard level fluoroscopic mode of operation utilized. FINDINGS: ESOPHAGUS:Normal. No visible obstruction, dilatation, reflux or hernia STOMACH: Normal. No obstruction, mass, or ulceration. Normal motility. DUODENUM:Normal. No ulceration or diverticulum. Small bowel: Normal appearance of the small bowel. Small bowel transit time was approximately 2 hours.. IMPRESSION: Normal upper GI and small bowel follow-through Electronically authenticated by: MATTHEW SILVER Date: 2022-01-05 11:30[facility]06-06-2022 NotePROCEDURE: XR GI UPPER AIR KUB DUAL CONTRAST, XR CINERADIOGRAPHY, XR SMALL BOWEL FOLLOW THOUGH COMPARISON: None. HISTORY: nausea and vomiting TECHNIQUE: An air contrast upper gastrointestinal series was performed in the usual manner. Standard level fluoroscopic mode of operation utilized. FINDINGS: ESOPHAGUS:Normal. No visible obstruction, dilatation, reflux or hernia STOMACH: Normal. No obstruction, mass, or ulceration. Normal motility. DUODENUM:Normal. No ulceration or diverticulum. Small bowel: Normal appearance of the small bowel. Small bowel transit time was approximately 2 hours.. IMPRESSION: Normal upper GI and small bowel follow-through Electronically authenticated by: MATTHEW SILVER Date: 2022-01-05 11:30[facility]06-06-2022 NotePROCEDURE: XR GI UPPER AIR KUB DUAL CONTRAST, XR CINERADIOGRAPHY, XR SMALL BOWEL FOLLOW THOUGH COMPARISON: None. HISTORY: nausea and vomiting TECHNIQUE: An air contrast upper gastrointestinal series was performed in the usual manner. Standard level fluoroscopic mode of operation utilized. FINDINGS: ESOPHAGUS:Normal. No visible obstruction, dilatation, reflux or hernia STOMACH: Normal. No obstruction, mass, or ulceration. Normal motility. DUODENUM:Normal. No ulceration or diverticulum. Small bowel: Normal appearance of the small bowel. Small bowel transit time was approximately 2 hours.. IMPRESSION: Normal upper GI and small bowel follow-through Electronically authenticated by: MATTHEW SILVER Date: 2022-01-05 11:30[facility] Narrative No data available for this section [facility] CenterProgress note No data available for this section [facility] Summary Purpose Family History No Family History Records FoundNo Family History Records FoundNo Family History Records FoundNo Family History Records Found Advance Directives No Advanced Directives Records FoundNo Advanced Directives Records FoundNo Advanced Directives Records FoundNo Advanced Directives Records Found Additional Source Comments INFORMATION SOURCE (unrecogn ized section and content) DATE CREATED AUTHOR 06/22/2022 [facility] DATE CREATED AUTHOR AUTHOR'S ORGANIZ ATION 01/28/2023 [facility] DATE CREATED AUTHOR AUTHOR'S ORGANIZ ATION 03/15/2023 [facility] DATE CREATED AUTHOR AUTHOR'S ORGANIZ ATION 05/15/2023 [facility] [place], operated by [facility] Patient Care team informatio n (unrecognized section and content) Personnel Name: Gentry Wolf MD Address: Address: [address] [place] [address] FOR RECORDS PERTAINING TO PATIENTS WHO ARE OR HAVE BEEN ENROLLED IN A CHEMICAL DEPENDENCY/SUBSTANCEABUSE PROGRAM, SOME INFORMATION MAY BE OMITTED. This clinical summary was aggregated from multiple sources. Caution should be exercised in using it in the provision of clinical care. This summary normalizes information from multiple sources, and as a consequence, information in this document may materially change the coding, format and clinical context of patient data. In addition, data may be omitted in some cases. CLINICAL DECISIONS SHOULD BE BASED ON THE PRIMARY CLINICAL RECORDS. [facility]. provides no warranty or guarantee of the accuracy or completeness of information in this document.
--- NOTE | 2023-08-09 18:02 | ECG_ITS ---
The [facility] Test Date: 2023-08-09 Pat Name: ESCOBAR NASH Department: Room: - Gender: Female [employer]: : 1980 Requested By: FELI CARRILLO Order Number: [id number] Reading MD: FLEI CARRILLO Measurements Intervals Glendo Rate: 67 P: 69 CT: 150 QRS: 51 QRSD: 76 T: 49 QT: 408 QTc: 424 Interpretive Statements 1100 Sinus rhythm 8102 Low QRS voltage in chest leads 9120 atypical ECG Compared to ECG 01/03/2022 16:08:54 Low QRS voltage now present Electronically Signed On 08-10-2023 5:34:09 EST by FELI CARRILLO
--- NOTE | 2023-08-09 18:02 | XR_ITS ---
The [address] [address] Patient Name: ESOCBAR NASH MRN: [id number] date: 1980 Sex: F Assigned Patient Location: ER Current Patient Location: ER Accession/Order Number: [id number] Exam Date: 08/09/2023 18:10 Report Date: 08/09/2023 18:50 At the request of: ANGELA JIMENEZ Procedure: XR chest 1V EXAM: XR chest 1V at 1815 hours HISTORY: chest pain, shoulder pain COMPARISON: None. TECHNIQUE: AP upright portable chest x-ray FINDINGS: The heart is not enlarged and the vasculature is not distended. No acute infiltrate, effusion or pneumothorax is identified. The osseous structures are grossly intact. XR/XR chest 1V IMPRESSION: No acute infiltrate or evidence of cardiac decompensation. Comparison with a previous study may be helpful in determining the chronicity of these findings. Electronically authenticated by: ARNAUD STEPHENSON Date: 08/09/2023 18:50
--- NOTE | 2023-08-09 18:26 | ED.CHESTPAI1 ---
HPI - Chest Pain General Chief Complaint: Chest Pain Stated Complaint: CP/SHOULDER PAIN Time Seen by Provider: 08/09/23 17:53 Source: patient Mode of arrival: walk-in Limitations: no limitations History of Present Illness HPI narrative: this patient's here complaining of pain in her right scapular area. She actually does not have chest pain pressure or heaviness discomfort or any symptoms. Aching was in her right scapular area. It started yesterday. It is better at this time. She is concerned because last year she had a myocardial infarction and had a single stent placed in her coronary system at the [facility]. She does take and has taken her aspirin and Plavix today. She has both history of insulin-dependent diabetes that she was not a smoker, she also had elevation of her cholesterol. She's not had any recent chest pains until this event started yesterday and again it's a nurse right scapular area nothing in her neck chest or jaw or arms. There is no shortness of breath. There is no swelling of her extremities. She's not had recent cold or influenza. An EKG was done after nursing triage and it does not show any evidence of acute ischemia injury or infarct. Related Data Home Medications Medication Instructions Recorded Confirmed aspirin 81 mg tablet,delayed 81 mg PO DAILY 05/25/23 08/09/23 release atorvastatin 80 mg tablet 80 mg PO DAILY 05/25/23 08/09/23 ticagrelor 90 mg tablet (Brilinta) 90 mg PO BID 05/25/23 08/09/23 nitroglycerin 0.4 mg sublingual 0.4 mg sublingual Q5M PRN chest 08/09/23 08/09/23 tablet pain Previous Rx's Medication Instructions Recorded hydroxyzine HCl 25 mg tablet 25 mg PO BID PRN anxiety #20 tabs 05/01/23 Allergies Allergy/AdvReac Type Severity Reaction Status Date / Time penicillin G AdvReac Intermediate Verified 01/20/23 13:41 PFSH PFSH Social History Smoking status: Never smoker Exam Narrative Exam Narrative: awake alert does not come across is apprehensive or nervous show she just wanted be sure. Vital signs are noted. Afebrile pulse oximetry normal respiratory rate normal her skin is warm and dry the mucous membranes are moist and pink. Examination shows her neck to be soft and supple she does not have any carotid bruits on either side. Her lungs are clear with no wheezes rales or rhonchi her back thoracic infrascapular area does not show any evidence of shingles at this time. There is no bruising or evidence of injury in this area. Heart sounds are normal with no click rub or gallop. She does not have any abdominal discomfort. Her extremities have no edema swelling phlebitis or tenderness to palpation. Neurological examination is normal. Skin integument are normal with no petechiae purpura diaphoresis or cyanosis. Constitutional Vital Signs, click to edit/add: Last Vital Signs Temp 98.3 F 08/09/23 17:44 Pulse 67 08/09/23 17:44 Resp 16 08/09/23 17:44 BP 163/89 H 08/09/23 17:44 Pulse Ox 100 08/09/23 17:44 O2 Del Method Room Air 08/09/23 17:44 Course Vital Signs Vital signs: Vital Signs Temperature 98.3 F 08/09/23 17:44 Pulse Rate 67 08/09/23 17:44 Respiratory Rate 16 08/09/23 17:44 Blood Pressure 163/89 H 08/09/23 17:44 Pulse Oximetry 100 08/09/23 17:44 Oxygen Delivery Method Room Air 08/09/23 17:44 Temperature 98.3 F 08/09/23 17:44 Pulse Rate 67 08/09/23 17:44 Respiratory Rate 16 08/09/23 17:44 Blood Pressure 163/89 H 08/09/23 17:44 Pulse Oximetry 100 08/09/23 17:44 Oxygen Delivery Method Room Air 08/09/23 17:44 MDM - Chest Pain MDM Narrative Medical decision making narrative: patient presents with right posterior scapular pain with a history of coronary disease stented ?1 one year ago. Serial cardiac troponins will be done. I've already looked at her chest x-ray it is normal. Routine chemistries will be done. Case will be turned over to Dr. Wilson for final disposition. The patient already took her aspirin and Plavix today. Discharge Plan Discharge Chief Complaint: Chest Pain Clinical Impression: Chest pain Patient Disposition: Still a Patient Prescriptions / Home Meds: No Action hydroxyzine HCl 25 mg tablet 25 mg PO BID PRN (Reason: anxiety) Qty: 20 0RF Brilinta 90 mg tablet 90 mg PO BID atorvastatin 80 mg tablet 80 mg PO DAILY aspirin 81 mg tablet,delayed release (DR/EC) 81 mg PO DAILY nitroglycerin 0.4 mg tablet, sublingual 0.4 mg sublingual Q5M PRN (Reason: chest pain) Referrals: Gentry Wolf MD [Primary Care Provider] - 1 week
--- NOTE | 2023-08-09 18:37 | PC.NURSE ---
PT CONCERNED WITH CP D/T HISTORY OF PA AND EXTENSIVE FAMILY HISTORY OF CARDIAC DISEASE
[2023-08-09 19:11] LABS: Basophils Percent Auto 0.6 % (0.2-2.0); Eosinophils Absolute Auto 0.1 10^3/uL (0.0-0.7); Eosinophils Percent Auto 1.8 % (0.9-7.0); Hematocrit 40.7 % (36.0-48.0); Hemoglobin 13.4 g/dL (12.0-16.0); Immature Granulocytes Abs Auto 0.02 10^3/uL (0.00-0.03); Immature Granulocytes Pct Auto 0.3 % (0.0-0.5); Lymphocytes Absolute Auto 2.6 10^3/uL (1.2-3.8); Lymphocytes Percent Auto 42.2 % (20.5-60.0); Mean Corpuscular HGB Conc 32.9 g/dL (29.9-35.2); Mean Corpuscular Hemoglobin 27.2 pg (26.7-34.0); Mean Corpuscular Volume 82.6 fL (81.0-99.0); Mean Platelet Volume 10.1 fL (9.5-13.5); Monocytes Absolute Auto 0.4 10^3/uL (0.3-0.8); Monocytes Percent Auto 5.8 % (1.7-12.0); Neutrophils Absolute Auto 3.1 10^3/uL (1.4-6.5); Neutrophils Percent Auto 49.3 % (43.0-75.0); Platelet Count 230 10^3/uL (150-450); Red Blood Count 4.93 10^6/uL (4.20-5.40); White Blood Count 6.3 10^3/uL (4.0-11.0)
[2023-08-09 19:34] LABS: Alanine Aminotransferase 33 U/L (14-59); Albumin Globulin Ratio 0.8; Albumin Level 3.1 g/dL (3.4-5.0); Alkaline Phosphatase 135 U/L (46-116); Anion Gap 11.6; Aspartate Amino Transferase 20 U/L (15-37); BUN Creatinine Ratio 11.9; Bilirubin Total 0.9 mg/dL (0.2-1.0); Calcium 9.1 mg/dL (8.5-10.1); Carbon Dioxide 24.1 mmol/L (21.0-32.0); Chloride 98 mmol/L (98-107); Estimated GFR (African America >60 (>=60); Estimated GFR (Non-African Ame >60 (>=60); Glucose 287 mg/dL (74-106); Potassium 3.7 mmol/L (3.5-5.1); Sodium 130 mmol/L (136-145); Total Protein 7.1 g/dL (6.4-8.2); Troponin I High Sensitivity <4.0 pg/mL (4.0-51.3)
[2023-08-09 21:48] LABS: Troponin I High Sensitivity <4.0 pg/mL (4.0-51.3)
== END 2023-08-09 22:59 | disposition home or self-care (01) ==
PROVIDERS: Emergency Medicine Emergency Medical Services; Emergency Provider Internal Medicine; PCP Family Medicine
DX: R07.9 Chest pain, unspecified (principal); I25.10 Atherosclerotic heart disease of native coronary artery without angina pectoris; E11.9 Type 2 diabetes mellitus without complications; E78.00 Pure hypercholesterolemia, unspecified; I25.2 Old myocardial infarction; Z95.5 Presence of coronary angioplasty implant and graft; Z79.82 Long term (current) use of aspirin; Z79.02 Long term (current) use of antithrombotics/antiplatelets; Z79.899 Other long term (current) drug therapy
CPT/HCPCS: 36415; 71045; 80053; 84484; 85025; 93005; 99285

== ENCOUNTER 2024-09-06 14:50 | Outpatient (OUT) | payer OTHER, SELFPAY ==
--- OUTSIDE RECORDS SUMMARY | 2024-09-06 14:59 | XMS_ITS | CCD ---
Author Organization [facility] CliniSysd Care Team Providers Care Bird Raiser Name Role Phone DR GENTRY CARRILLO Consulting Unavailable LORENA, DR EDMOND Primary Care [...] DR EDMOND Primary Care Unavailable BARON, DR PAMLA Consulting Unavailable LUTHER NGUYEN Consulting Unavailable LUTHER NGUYEN Attending Unavailable LUTHER NGUYEN Admitting Unavailable LORENA, DR EDMOND Primary Care Unavailable LORENA, DR EDMOND Consulting Unavailable LORENA, DR EDMOND Primary Care Unavailable LORENA, DR EDMOND Attending Unavailable LORENA, DR EDMOND Admitting Unavailable LORENA, DR EDMNOD Consulting Unavailable LORENA, DR EDMOND Attending Unavailable LORENA, DR EDMOND Admitting Unavailable LORENA, DR EDMOND Primary Care Unavailable ADRIANNE, DR MATTHEW Escobar Consulting Unavailable DR NELSON PUENTES Consulting Unavailable REBEAC HOLLIS Consulting Unavailable MARIAELENA BROWN Consulting Unavailable LORENA, DR EDMOND Consulting Unavailable LORENA, DR EDMOND Attending Unavailable LORENA, DR EDMOND Admitting Unavailable LORENA, DR EDMOND Primary Care Unavailable ADRIANNE, DR MATTHEW Escobar Consulting Unavailable MERLE ALEXANRDA Consulting Unavailable LUTHER NGUYEN Consulting Unavailable GILL, DR BARNES Consulting Unavailable LORENA, DR EDMOND Primary Care Unavailable GILL, DR BARNES Attending Unavailable GILL, DR BARNES Admitting Unavailable Gentry Carrillo Primary Care Physician [phone] Abhishek Monterroso Consulting Ellie Nieto Attending Unavailable Ellie OBANDO Admitting Unavailable Abhishek Monterroso Consulting Abhishek Cox Consulting Pako Gramajo Attending Unavailable FELIPA ROGERS Attending Unavailable Gentry Carrillo MD Primary Care Provider GENTRY CARRILLO Primary Care Unavailable SANCHEZ MANCILLA Attending Unavailable AMISHA NGUYEN Attending Unavailable GENTRY CARRILLO Primary Care Unavailable Allergies Allergy Classification Reported Allergen(s) Allergy Type Date of Onset Reaction(s) Facility (1 source) Penicillin Drug Allergy 08-02-1979 [facility] Repository (5 sources) Penicillins; Translations: [penicillins] Drug allergy 05-26-2019 [facility] Medications Current Medications Medication Drug Class(es) Dates Sig (Normalized) Sig (Original) aspirin 81 mg delayed release oral tablet (3 sources) Platelet Aggregation Inhibitor, Nonsteroidal Anti-inflammatory Drug Start: 01-23-2023 take 1 tablet by mouth once daily aspirin 81 mg Oral EC Tab 81 mg = 1 tab(s), Oral, Daily, # 30 tab(s), Refills(s) 1, Pharmacy: [facility] #[id number], 165, cm, 01/21/23 16:25:00 EDT, Height/Length Dosing, 83, kg, 01/21/23 16:25:00 EDT, Weight Dosing Start Date: 01/23/23 Status: Ordered take 1 tablet by mouth once angus y aspirin 81 MG chewable tablet Take 1 tablet by mouth daily Active atorvastatin 80 mg oral tablet (4 sources) HMG-CoA Reductase Inhibitor Start: 07-09-2024 take 1 tablet by mouth once daily atorvastatin (LIPITOR) 80 MG tablet Take 1 tablet by mouth daily Please hold for the time you are taking antiviral 30 tablet 07/09/2024 Active Start: 01-23-2023 End: 07-09-2024 take 1 tablet by mouth once daily Lipitor 80 mg Tab 80 mg = 1 tab(s), Oral, Daily, # 30 tab(s), Refills(s) 1, Pharmacy: [facility] #[id number], 165, cm, 01/21/23 16:25:00 EDT, Height/Length Dosing, 83, kg, 01/21/23 16:25:00 EDT, Weight Dosing Start Date: 01/23/23 Status: Ordered cetirizine hydrochloride 10 mg oral tablet (3 sources) Histamine-1 Receptor Antagonist Start: 03-23-2022 take 1 tablet by mouth once daily cetirizine 10 mg Tab 10 mg = 1 tab(s), Oral, Daily, Refills(s) 0 Start Date: 03/23/22 Status: Ordered ciprofloxacin 3 mg/ml ophthalmic solution (1 source) Quinolone Antimicrobial Start: 07-09-2024 End: 07-19-2024 take 4 drop(s) into the eye(s) at bedtime, then take 4 drop(s) into the eye(s) twice daily ciprofloxacin (CILOXAN) 0.3 % ophthalmic solution Place 4 drops in ear(s) in the morning and at bedtime for 10 days Please 4 drops in the left ear bid for 7 days 5 mL 07/09/2024 07/19/2024 Active citalopram 20 mg oral tablet (3 sources) Serotonin Reuptake Inhibitor Start: 06-05-2022 take 1 tablet by mouth once daily citalopram 20 mg Tab 20 mg = 1 tab(s), Oral, Daily, Refills(s) 0 Start Date: 06/05/22 Status: Ordered fluticasone furoate 0.05 MG/ACTUAT Dry Powder Inhaler (3 sources) Corticosteroid Start: 03-24-2022 take 1 puff(s) by inhalation twice daily fluticasone furoate 50 mcg inhalation powder = 1 puff(s), Inhalation, BID, Refills(s) 0 Start Date: 03/24/22 Status: Ordered take 1 spray(s) nasa l route once daily as needed for rhinitis fluticasone (FLONASE) 50 MCG/ACT nasal spray 1 spray by Each Nostril route daily as needed for Rhinitis Active glimepiride 4 mg oral tablet (3 sources) Sulfonylurea Start: 03-23-2022 take 1 tablet by mouth once daily glimepiride 4 mg Tab 4 mg = 1 tab(s), Oral, Daily, Refills(s) 0 Start Date: 03/23/22 Status: Ordered hydrOXYzine hydrochloride 25 mg oral tablet (2 sources) Antihistamine take 1 tablet by mouth twice daily as needed hydrOXYzine HCl (ATARAX) 25 MG tablet Take 1 tablet by mouth 2 times daily as needed for Itching Active ibuprofen 800 mg oral tablet (1 source) Nonsteroidal Anti-inflammatory Drug Start: 10-19-2022 take 1 tablet by mouth four times daily as needed for pain ibuprofen 800 mg Tab 800 mg = 1 tab(s), Oral, QID, PRN as needed for pain, Refills(s) 0 Start Date: 10/19/22 Status: Ordered Lantus (2 sources) Insulin Analog Start: 10-19-2022 inject 20 [IU] by subcutaneous injection once daily at bedtime Lantus insulin 20 unit(s), SubCutaneous, Once a day (at bedtime), Refills(s) 0 Start Date: 10/19/22 Status: Ordered Insulin Glargine (BASAGLAR KWIKPEN SC) Inject 30 Units into the skin at bedtime Active labetalol hydrochloride 200 mg oral tablet (1 source) beta-Adrenergic Alicia take 1.5 tablets by mouth three times daily labetalol (NORMODYNE) 200 MG tablet Take 1.5 tablets by mouth 3 times daily Active metFORMIN hydrochloride 500 mg oral tablet (1 source) Biguanide Start: 022 take 1 tablet by mouth twice daily metformin 500 mg Tab 500 mg = 1 tab(s), Oral, BID, Refills(s) 0 Start Date: 03/23/22 Status: Ordered naproxen 375 mg oral tablet (2 sources) Nonsteroidal Anti-inflammatory Drug Start: End: 024 take 1 tablet by mouth twice daily as needed for pain naproxen (NAPROSYN) 375 MG tablet Take 1 tablet by mouth 2 times daily as needed for Pain 20 tablet 07/09/2024 Active nitroglycerin 0.4 mg sublingual tablet (1 source) Nitrate Vasodilator Start: 023 nitroglycerin 0.4 mg sublingual Tab 0.4 mg = 1 tab(s), SubLingual, q5min, PRN Chest pain, not to exceed 3 doses/15 min--if pain persists, seek medical attention, # 100 tab(s), Refills(s) 0, Pharmacy: [facility] #[id number], 165, cm, 01/21/23 16:25:00 EDT, Height/Length Dosing, 83, kg, 01/21/23... Start Date: 01/23/23 Status: Ordered ticagrelor 90 mg oral tablet (3 sources) Start: take 1 tablet by mouth twice daily Brilinta (ticagrelor) 90 mg oral tablet 90 mg = 1 tab(s), Oral, BID, # 60 tab(s), Refills(s) 1, Pharmacy: [facility] #[id number], 165, cm, 01/21/23 16:25:00 EDT, Height/Length Dosing, 83, kg, 01/21/23 16:25:00 EDT, Weight Dosing Start Date: 01/23/23 Status: Ordered valACYclovir 1000 mg oral tablet (1 source) Herpesvirus Nucleoside Analog DNA Polymerase Inhibitor, Herpes Simplex Virus Nucleoside Analog DNA Polymerase Inhibitor, Herpes Zoster Virus Nucleoside Analog DNA Polymerase Inhibitor Start: End: take 1 tablet by mouth three times daily valACYclovir (VALTREX) 1 g tablet Take 1 tablet by mouth 3 times daily for 7 days 21 tablet 07/09/2024 07/16/2024 Active Completed/Discontinued Medications Medication Drug Class(es) Dates Sig (Normalized) Sig (Original) acetaminophen 325 mg oral tablet (1 source) Start: 08-28-2024 End: 08-28-2024 take 4000 mg by mouth every twenty-four hours 650 mg, Oral, ONCE, 1 dose, On 08/28/24 at 1630, Maximum dose of acetaminophen is 4000 mg from all sources in 24 hours. Acetaminophen / HYDROcodone (1 source) Opioid Agonist [...] Date: 01/22/23 Stop Date: 01/22/23 Status: Completed insulin, regular, human 100 unt/ml injectable solution (1 source) Insulin Start: 08-28-2024 End: 08-28-2024 15 Units, IntraVENous, ONCE, 1 dose, On 08/28/24 at 1515 1 ml ketorolac tromethamine 30 mg/ml cartridge (1 source) Nonsteroidal Anti-inflammatory Drug, Cyclooxygenase Inhibitor Start: 07-09-2024 End: 07-09-2024 30 mg, IntraMUSCular, ONCE, 1 dose, On 07/09/24 at 0900, Do not administer for more than 5 days. Start: 07-09-2024 End: 07-09-2024 30 mg, IntraMUSCular, ONCE, 1 dose, On 07/09/24 at 0900, Do not administer for more than 5 days. lisinopril 10 mg oral tablet (4 sources) Angiotensin Converting Enzyme Inhibitor Start: 01-23-2023 [...] Ordered metoprolol tartrate 25 mg oral tablet (6 sources) beta-Adrenergic Alicia Start: 01-23-2023 End: 01-23-2023 [...] Date: 01/22/23 Stop Date: 01/22/23 Status: Completed 50 ml sodium chloride 9 mg/m l injection (2 sources) Start: 08-28-2024 End: 08-28-2024 1,000 mL (12.5 mL/kg), IntraVENous, at 1,000 mL/hr, Administer over 1 Hours, ONCE, On Wed08/28/24 at 1630, For 1 dose Problems Active Problems Problem Classification Problem Date Documented Date Episodic/Chronic Acute myocardial infarction (1 source) Non-ST elevation (NSTEMI) myocardial infarction; Translations: [Non-ST elevation (NSTEMI) myocardial infarction] Onset: 01-22-2023 Chronic Coronary atherosclerosis and other heart disease (1 source) Coronary atherosclerosis; Translations: [Atherosclerotic heart disease of [place] coronary artery without angina pectoris] Onset: 01-23-2023 Chronic Diabetes mellitus with complications (3 sources) Type 2 diabetes mellitus with hyperglycemia; Translations: [Hyperglycemia due to diabetes mellitus] Onset: 02-19-2022 08-28-2024 Chronic Diabetes mellitus without complication (2 sources) Type 2 diabetes mellitus without complications; Translations: [Type 2 diabetes mellitus without complication] Onset: 01-07-2022 Chronic Diabetes mellitus without complication (3 sources) Hyperglycemia; Translations: [Hyperglycemia, unspecified] Onset: 01-21-2023 Episodic Diseases of white blood cells (1 source) Leukocytosis; Translations: [Elevated white blood cell count, unspecified] Onset: 01-21-2023 Chronic Essential hypertension (2 sources) Essential (primary) hypertension; Translations: [Essential hypertension] Onset: 02-19-2022 Chronic Fluid and electrolyte disorders (6 sources) Dehydration; Translations: [Hypo-osmolality and hyponatremia] Onset: [...] current use of drug therapy; Translations: [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] Onset: 01-21-2023 Episodic Other ear and sense organ disorders (1 source) Infective otitis externa of left ear; Translations: [Other infective otitis externa, left ear] 07-09-2024 Episodic Other ear and sense organ disorders (1 source) Other infective otitis externa, left ear; Translations: [Other infective otitis externa, left ear] Onset: 07-09-2024 Episodic Other female genital disorders (1 source) [...] [CONTACT W/AND (SUSP) EXPOS COVID-19] Onset: 02-19-2022 Viral infection (2 sources) Herpes zoster without complication; Translations: [Zoster without complications] Onset: 07-09-2024 07-09-2024 Episodic Past or Other Problems Problem Classification Problem [...] 02-19-2022 Episodic Other aftercare (1 source) 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; Translations: [OTH [facility] CURRENT DRUG THERAPY] Onset: 02-19-2022 Episodic Other aftercare (1 source) [facility] (current) use of oral hypoglycemic drugs; Translations: [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 DX] Onset: 02-19-2022 Episodic Other aftercare (1 source) [facility] (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; Translations: [[facility] CURRENT USE OF ASPIRIN] Onset: 12-09-2021 Episodic Other aftercare (1 source) [facility] (current) use of insulin; Translations: [HOG SLAUGHTERER CURRENT USE OF INSULIN] Onset: 12-09-2021 Episodic [...] Test Name Value Interpretation Reference Range Facility CBC with Auto Differentialon 08-28-2024 Basophils (Bld) [#/Vol] 0.02 10*3/[facility] Basophils/100 WBC (Bld) 0 % 0 - 2 % [facility] Eosinophils (Bld) [#/Vol] 0.09 10*3/uL [facility] Eosinophils/100 WBC (Bld) 1 % 0 - 5 % [facility] Erythrocyte distribution width (RBC) [Ratio] 13.0 % 12.1 - 15.2 % [facility] Hematocrit (Bld) [Volume fraction] 41.7 % 36.0 - 46.0 % [facility] Hemoglobin (Bld) [Mass/Vol] 15.0 g/dL 12.0 - 16.0 g/dL [facility] Immature granulocytes (Bld) [#/Vol] 0.02 10*3/uL [facility] Immature granulocytes/100 WBC (Bld) 0 % 0 - 5 % [facility] Interpretation and review of laboratory results Abnormal [facility] Lymphocytes/100 WBC (Bld) 33 % 15 - 40 % [facility] Lymphocytes/100 WBC (Bld) 3.26 % [facility] MCH (RBC) [Entitic mass] 28.5 pg 26.0 - 34.0 pg [facility] MCHC (RBC) [Mass/Vol] 36.0 g/dL 31.0 - 37.0 g/dL [facility] MCV (RBC) [Entitic vol] 79.3 fL Low 80.0 - 100.0 fL [facility] Monocytes/100 WBC (Bld) 6 % 4 - 8 % [facility] Monocytes/100 WBC (Bld) 0.55 % [facility] Neutrophils/100 WBC (Bld) 60 % 47 - 75 % [facility] Platelet mean volume (Bld) [Entitic vol] 9.9 fL 6.0 - 12.0 fL [facility] Platelets (Bld) [#/Vol] 277 10*3/uL [facility] RBC (Bld) [#/Vol] 5.26 10*6/uL High 4.00 - 5.2 0 m/uL [facility] Segmented neutrophils/100 WBC (Bld) 6.04 % [facility] WBC other (Bld) [#/Vol] 10.0 [facility] CBC with Diffon 08-28-2024 Abs. Basophil 0.02 k/uL Normal 0.00-0.20 [facility] Comment on above: Performed By: #### C P, CDP #### [facility] [address] [place] [address] Regulatory Compliance Officer: Matthew Driscoll MD Abs.Imm.Granulocyte 0.02 k/uL Normal 0.00-0.30 [facility] Comment on above: Performed By: #### C P, CDP #### [facility] [address] [place] [address] Regulatory Compliance Officer: Matthew Driscoll MD Abs.Neutrophil (Seg) 6.04 k/uL Normal 2.5-7.0 [facility] Comment on above: Performed By: #### C P, CDP #### [facility] [address] [place] [address] Regulatory Compliance Officer: Matthew Driscoll MD Basophils/100 WBC (Bld) 0 % Normal 0-2 [facility] Comment on above: Performed By: #### C P, CDP #### [facility] [address] [place] [id number] Regulatory Compliance Officer: Matthew Driscoll MD Eosinophils (Bld) [#/Vol] 0.09 10*3/uL Normal 0.00-0.40 [facility] Comment on above: Performed By: #### C P, CDP #### [facility] [address] [place] [address] Regulatory Compliance Officer: Matthew Driscoll MD Eosinophils/100 WBC (Bld) 1 % Normal 0-5 [facility] Comment on above: Performed By: #### C P, CDP #### [facility] [address] [place] [address] Regulatory Compliance Officer: Matthew Driscoll MD Erythrocyte distribution width (RBC) [Ratio] 13.0 % Normal 12.1-15.2 [facility] Comment on above: Performed By: #### C P, CDP #### [facility] [address] [place] [address] Regulatory Compliance Officer: Matthew Driscoll MD Hematocrit (Bld) [Volume fraction] 41.7 % Normal 36.0-46.0 [facility] Comment on above: Performed By: #### C P, CDP #### [facility] [address] [place] [address] Regulatory Compliance Officer: Matthew Driscoll MD Hemoglobin (Bld) [Mass/Vol] 15.0 g/dL Normal 12.0-16.0 [facility] Comment on above: Performed By: #### C P, CDP #### [facility] [address] [place] [address] Regulatory Compliance Officer: Matthew Driscoll MD Immature granulocytes/100 WBC (Bld) 0 % Normal 0-5 [facility] Comment on above: Performed By: #### C P, CDP #### [facility] [address] [place] [address] Regulatory Compliance Officer: Matthew Driscoll MD Lymphocytes (Bld) [#/Vol] 3.26 10*3/uL Normal 1.00-4.80 [facility] Comment on above: Performed By: #### C P, CDP #### [facility] [address] [place] [address] Regulatory Compliance Officer: Matthew Driscoll MD Lymphocytes/100 WBC (Bld) 33 % Normal 15-40 [facility] Comment on above: Performed By: #### C P, CDP #### [facility] [address] [place] [id number] Regulatory Compliance Officer: Matthew Driscoll MD MCH (RBC) [Entitic mass] 28.5 pg Normal 26.0-34.0 [facility] Comment on above: Performed By: #### C P, CDP #### [facility] [address] [place] [address] Regulatory Compliance Officer: Matthew Driscoll MD MCHC (RBC) [Mass/Vol] 36.0 g/dL Normal 31.0-37.0 [facility] Comment on above: Performed By: #### C P, CDP #### [facility] [address] [place] [address] Regulatory Compliance Officer: Matthew Driscoll MD MCV (RBC) [Entitic vol] 79.3 fL Low 80.0-100.0 [facility] Comment on above: Performed By: #### C P, CDP #### [facility] [address] [place] [address] Regulatory Compliance Officer: Matthew Driscoll MD Monocytes (Bld) [#/Vol] 0.55 10*3/uL Normal 0.00-1.00 [facility] Comment on above: Performed By: #### C P, CDP #### [facility] [address] [place] [address] Regulatory Compliance Officer: Matthew Driscoll MD Monocytes/100 WBC (Bld) 6 % Normal 4-8 [facility] Comment on above: Performed By: #### C P, CDP #### [facility] [address] [place] [address] Regulatory Compliance Officer: Matthew Driscoll MD Neutrophil (Seg) 60 % Normal 47-75 [facility] Comment on above: Performed By: #### C P, CDP #### [facility] [address] [place] [address] Regulatory Compliance Officer: Matthew Driscoll MD Platelet mean volume (Bld) [Entitic vol] 9.9 fL Normal 6.0-12.0 [facility] Comment on above: Performed By: #### C P, CDP #### [facility] [address] [place] [address] Regulatory Compliance Officer: Matthew Driscoll MD Platelets (Bld) [#/Vol] 277 10*3/uL Normal 140-450 [facility] Comment on above: Performed By: #### C P, CDP #### [facility] [address] [place] [address] Regulatory Compliance Officer: Matthew Driscoll MD RBC (Bld) [#/Vol] 5.26 10*6/uL High 4.00-5.20 [facility] Comment on above: Performed By: #### C P, CDP #### [facility] [address] [place], [place] [id number] Regulatory Compliance Officer: Matthew Driscoll MD WBC (Bld) [#/Vol] 10.0 10*3/uL Normal 3.5-11.0 [facility] Comment on above: Performed By: #### C P, CDP #### [facility] [address] [place] [address] Regulatory Compliance Officer: Matthew Driscoll MD Comp Metabolic Profon 2024 Albumin [Mass/Vol] 3.8 g/dL Normal 3.5-5.2 [facility] Comment on above: Performed By: #### C P, CDP #### [facility] [address] [place] [address] Regulatory Compliance Officer: Matthew Driscoll MD ALT [Catalytic activity/Vol] 17 U/L Normal 5-33 [facility] Comment on above: Performed By: #### C P, CDP #### [facility] [address] [place] [address] Regulatory Compliance Officer: Matthew Driscoll MD Anion gap [Moles/Vol] 16 mmol/L Normal 9-17 [facility] Comment on above: Performed By: #### C P, CDP #### [facility] [address] [place] [address] Regulatory Compliance Officer: Matthew Driscoll MD AST [Catalytic activity/Vol] 12 U/L Normal <32 [facility] Comment on above: Performed By: #### C P, CDP #### [facility] [address] [place] [address] Regulatory Compliance Officer: Matthew Driscoll MD Bilirubin [Mass/Vol] 0.6 mg/dL Normal 0.3-1.2 [facility] Comment on above: Performed By: #### C P, CDP #### [facility] [address] [place] [address] Regulatory Compliance Officer: Matthew Driscoll MD Calcium [Mass/Vol] 9.8 mg/dL Normal 8.6-10.4 [facility] Comment on above: Performed By: #### C P, CDP #### [facility] [address] [place] [address] Regulatory Compliance Officer: Matthew Driscoll MD Chloride [Moles/Vol] 87 mmol/L Low 98-107 [facility] Comment on above: Performed By: #### C P, CDP #### [facility] [address] [place] [address] Regulatory Compliance Officer: Matthew Driscoll MD CO2 [Moles/Vol] 22 mmol/L Normal 20-31 [facility] Comment on above: Performed By: #### C P, CDP #### [facility] [address] [place] [address] Regulatory Compliance Officer: Matthew Driscoll MD Creatinine [Mass/Vol] 0.6 mg/dL Normal 0.5-0.9 [facility] Comment on above: Performed By: #### C P, CDP #### [facility] [address] [place], [place] [id number] Regulatory Compliance Officer: Matthew Driscoll MD Glucose [Mass/Vol] 579 mg/dL Critically high 70-99 [facility] Comment on above: Performed By: #### C P, CDP #### [facility] [address] [place], [place] [id number] Regulatory Compliance Officer: Matthew Driscoll MD Potassium [Moles/Vol] 4.4 mmol/L Normal 3.7-5.3 [facility] Comment on above: Performed By: #### C P, CDP #### [facility] [address] [place], [place] [id number] Regulatory Compliance Officer: Matthew Driscoll MD Protein [Mass/Vol] 7.5 g/dL Normal 6.4-8.3 [facility] Comment on above: Performed By: #### C P, CDP #### [facility] [address] [place], [place] [id number] Regulatory Compliance Officer: Matthew Driscoll MD Sodium [Moles/Vol] 125 mmol/L Low 135-144 [facility] Comment on above: Performed By: #### C P, CDP #### [facility] [address] [place], [place] [id number] Regulatory Compliance Officer: Matthew Driscoll MD Urea nitrogen [Mass/Vol] 21 mg/dL High 6-20 [facility] Comment on above: Performed By: #### C P, CDP #### [facility] [address] [place], [place] [id number] Regulatory Compliance Officer: Matthew Driscoll MD Alkaline Phos 173 U/L High 35-104 [facility] Comment on above: Performed By: #### C P, CDP #### [facility] [address] [place], [place] [id number] Regulatory Compliance Officer: Matthew Driscoll MD BUN/CRE Ratio 35 High 9-20 [facility] Comment on above: Performed By: #### C P, CDP #### [facility] [address] [place], [place] [id number] Regulatory Compliance Officer: Matthew Driscoll MD GFR/1.73 sq M.predicted among non-blacks MDRD (S/P/Bld) [Vol rate/Area] mL/min/{1.73_m2} Normal >60 [facility] Comment on above: Result Comment: These results are not intended for use in patients <18 years of age. eGFR results are calculated without a race factor using the 2020 CKD-EPI equation. Careful clinical correlation is recommended, particularly when comparing to results calculated using previous equations. The CKD-EPI equation is less accurate in patients with extremes of muscle mass, extra-renal metabolism of creatine, excessive creatine ingestion, or following therapy that affects renal tubular secretion. Performed By: #### C P, CDP #### [facility] [address] [place] [address] Regulatory Compliance Officer: Matthew Driscoll MD Comprehensive Metabolic Pane [email or web address] 08-28-2024 ALP [Catalytic activity/Vol] 173 U/L High 35 - 104 U/L [facility] Est, Glom Filt Rate - PINF [facility] Comment on above: These results are not intended for use in patients <18 years of age. eGFR results are calculated without a race factor using the 2020 CKD-EPI equation. Careful clinical correlation is recommended, particularly when comparing to results calculated using previous equations. The CKD-EPI equation is less accurate in patients with extremes of muscle mass, extra-renal metabolism of creatine, excessive creatine ingestion, or following therapy that affects renal tubular secretion. Interpretation and review of laboratory results Abnormal [facility] Urea nitrogen/Creatinine [Mass ratio] 35 mg/mg High 9 - 20 [facility] Glucose, Whole Bloodon 08-28 Glucose [Mass/Vol] 316 mg/dL High 65 - 99 mg/dL [facility] Interpretation and review of laboratory results Abnormal [facility] Glucose [Mass/Vol] 565 mg/dL Critically high 65 - 99 mg/d L [facility] Interpretation and review of laboratory results Abnormal [facility] Glucose,Whole Bloodon 2024 Glucose [Mass/Vol] 316 mg/dL High 65-99 [facility] Glucose [Mass/Vol] 565 mg/dL Critically high 65-99 [facility] POCT glucoseon 08-28-2024 Glucose [Mass/Vol] 316 mg/dL [facility] Interpretation and review of laboratory results Normal [facility] QC OK? yes [facility] POCT glucoseOrdered By: Shazia Trujillo on 08-28-2024 Glucose [Mass/Vol] 565 mg/dL [facility] Interpretation and review of laboratory results Normal [facility] QC OK? yes [facility] Venous Bld Gas,POCon 025 FIO2 21.0 Normal [facility] HCO3 (Bld) [Moles/Vol] 23.5 mmol/L Normal 22.0-29.0 [facility] Oxygen saturation in Blood 95.0 % High 60.0-85.0 [facility] pCO2, Venous 33.2 mm Hg Low 41.0-51.0 [facility] pH,Venous 7.457 High 7.320-7.430 [facility] pO2, Venous 70.8 mm Hg High 30.0-50.0 [facility] Positive Base Excess (calc) 0.4 mmol/L Normal 0.0-3.0 [facility] Venous Blood Gas, POCon 08-03 FIO2 21.0 [facility] HCO3 (Bld) [Moles/Vol] 23.5 mmol/L 22.0 - 29.0 mmol/L [facility] Interpretation and review of laboratory results Abnormal [facility] Oxygen saturation in Blood 95.0 % High 60.0 - 85.0 % [facility] pCO2, Adria 33.2 Low [facility] pH, Adria 7.457 High 7.320 - 7.430 [facility] PO2, Adria 70.8 High [facility] Positive Base Excess, Adria 0.4 mmol/L 0.0 - 3.0 mmol/L [facility] Office Visiton 02-05-2023 Follow-up visit [id number] Escobar Ortega 1980 F Date Provider Department Center 02/05/2023 3848-FELIPA ROGERS Family History Problem Relation Age of Onset Diabetes Father Coronary artery disease Father Kidney disease Father Family Status - Relation Status Age at Father Level of Service:49903 [place] OFFICE/OUTPATIENT NEW LOW MDM 30-44 MINUTES Normal [facility] Cardiovascular Reporton 01-01 Cardiovascular Report [id number] 30#1.00CD:127 Normal [facility] Consent for PICC lineon 01-01 Consent for PICC line [id number] 13#1.00CD:127 Normal [facility] Discharge Instructionson Discharge Instructions [id number] #1.00CD:127 Normal [facility] Pre-Certification Formon Pre-Certification Form [id number] 2#1.00CD:127 Normal [facility] BMPon 01-23-2023 Anion gap [Moles/Vol] 12 mmol/L Normal 6-16 [facility] Comment on above: Performed By: #### 2 906126, 3242393, 05878731, 841930843, 9069228, 0274937 #### [facility] [address] [place] [address] Calcium [Mass/Vol] 8.2 mg/dL Low 8.9-11.1 [facility] Comment on above: Performed By: #### 2 016465, 7834131, 06817977, 789712257, 5290112, 9299358 #### [facility] [address] [place] [address] Chloride [Moles/Vol] 108 mmol/L Normal 101-111 [place] Comment on above: Performed By: #### 2 276803, 0549575, 33020492, 291000668, 8113476, 7464064 #### [facility] [address] [place] [address] CO2 [Moles/Vol] 19 mmol/L Low 21-31 [facility] Comment on above: Performed By: #### 2 988764, 6638888, 96500129, 595839240, 3420313, 6280974 #### [facility] [address] [place] [address] Creatinine [Mass/Vol] 0.5 mg/dL Normal 0.5-1.3 [facility] Comment on above: Performed By: #### 2 867928, 4386551, 82489377, 595584749, 3272600, 8097329 #### [facility] [address] [place] [address] Glucose [Mass/Vol] 183 mg/dL Normal 55-199 [facility] Comment on above: Result Comment: If t his glucose result represents a fasting glucose, interpretation should refer to the following reference range: 55-99 mg/dL Performed By: #### 2 468064, 4276835, 20855913, 005884265, 3448696, 3195962 #### [facility] [address] [place] [address] Potassium [Moles/Vol] 3.8 mmol/L Normal 3.5-5.3 [facility] Comment on above: Performed By: #### 2 623486, 5840034, 92877082, 392277551, 4787252, 5226673 #### [facility] [address] [place] [address] Sodium [Moles/Vol] 135 mmol/L Normal 135-145 [facility] Comment on above: Performed By: #### 2 620065, 3340115, 32157451, 547219539, 7340865, 9439951 #### [facility] [address] [place] [address] Urea nitrogen [Mass/Vol] 11 mg/dL Normal 5-21 [facility] Comment on above: Performed By: #### 2 398535, 1967219, 63737607, 523893535, 1132222, 9838746 #### [facility] [address] [place] [address] Urea nitrogen/Creatinine [Mass ratio] 22 No Units High 10-20 [facility] Comment on above: Performed By: #### 2 833190, 6900568, 13700779, 136027111, 8481482, 9570056 #### [facility] [address] [place] [address] CBC w/Indiceson 01-23-2023 Erythrocyte distribution width (RBC) [Ratio] 14.2 % Normal 10.9-14.2 [facility] Comment on above: Performed By: #### 2 455885, 7693822, 26366117, 137351765, 3056050, 0194134 #### [facility] [address] [place] [address] Hematocrit (Bld) [Volume fraction] 38.3 % Normal 34.0-46.0 [facility] Comment on above: Performed By: #### 2 602215, 2508129, 79472996, 963801931, 3079520, 6932649 #### [facility] [address] [place] [address] Hemoglobin (Bld) [Mass/Vol] 13.3 g/dL Normal 12.0-16.0 [facility] Comment on above: Performed By: #### 2 157067, 5634734, 51508017, 581553498, 4902234, 2806759 #### [facility] [address] [place] [address] MCH (RBC) [Entitic mass] 28.9 pg Normal 27.0-34.0 [facility] Comment on above: Performed By: #### 2 043203, 2251307, 08610023, 677232373, 5866355, 5238113 #### [facility] [address] [place] [address] MCHC (RBC) [Mass/Vol] 34.8 g/dL Normal 31.4-36.0 [facility] Comment on above: Performed By: #### 2 536606, 9136486, 71698288, 108410995, 1525325, 6021316 #### [facility] [address] [place] [address] MCV (RBC) [Entitic vol] 83.1 fL Normal 80.0-100.0 [facility] Comment on above: Performed By: #### 2 757672, 4558439, 16514065, 722659015, 1177028, 9548851 #### [facility] [address] [place] [address] Platelet mean volume (Bld) [Entitic vol] 8.6 fL Normal 6.4-10.8 [facility] Comment on above: Performed By: #### 2 144572, 3906144, 82506962, 956366235, 2082710, 8024596 #### [facility] [address] [place] [address] Platelets (Bld) [#/Vol] 237.0 E9/L Normal 150.0-500.0 [facility] Comment on above: Performed By: #### 2 974327, 3169820, 33116287, 970145525, 3975683, 4838227 #### [facility] [address] [place], [place] [address] RBC (Bld) [#/Vol] 4.6 E12/L Normal 4.3-5.9 [facility] Comment on above: Performed By: #### 2 705943, 2531652, 04490314, 278088674, 1857626, 3236983 #### [facility] [address] [place] [address] WBC corrected for nucl RBC Auto (Bld) [#/Vol] 9.5 E9/L Normal 4.0-11.0 [facility] Comment on above: Performed By: #### 2 248840, 7462851, 70229119, 240993527, 2014723, 8127635 #### [facility] [address] [place] [address] CHEMISTRYOrdered By: Will PATTERSON User on 01-23-2023 Glucose [Mass/Vol] 255 mg/dL High 55 - 99 mg/dL [facility] C POC Subsection Comment on above: Result Comment: Marino paulson RN/ POC Device SN [id number] Invalid Interpretation Code [facility] POC Subsection POC User ID [id number] Invalid Interpretation Code FT POC Subsection POC Username LESLY PARR Invalid Interpretation Code FT POC Subsection Glucose [Mass/Vol] 192 mg/dL High 55 - 99 mg/dL [facility] C POC Subsection Comment on above: Result Comment: Yari nuñezd Meter POC Device SN [id number] Invalid Interpretation Code FT POC Subsection POC User ID [id number] Invalid Interpretation Code FT POC Subsection POC Username AIDEE DE LEÓN Invalid Interpretation Code [facility] POC Subsection CHEMISTRYOrdered By: SYSTEM SYSTEM on 01-23-2023 Anion gap [Moles/Vol] 12 mmol/L Normal 6 - 16 mEq/L [facility] Calcium [Mass/Vol] 8.2 mg/dL Low 8.9 - 11. 1 mg/dL [facility] Chloride [Moles/Vol] 108 mmol/L Normal 101 - 1 11 mmol/L [facility] CO2 [Moles/Vol] 19 mmol/L Low 21 - 31 mmol/L [facility] Creatinine [Mass/Vol] 0.5 mg/dL Normal 0.5 - 1.3 mg/dL [facility] Remisol GFR/1.73 sq M.predicted among non-blacks MDRD (S/P/Bld) [Vol rate/Area] 118 mL/min/1.73 m2 Normal >=59mL/min/1. 73 m2 [facility] Chem S Glucose [Mass/Vol] 183 mg/dL Normal 55 - 199 mg/dL [facility] Magnesium [Mass/Vol] 1.5 mg/dL Normal 1.3 - 2 .4 mg/dL [facility] Potassium [Moles/Vol] 3.8 mmol/L Normal 3.5 - 5.3 mmol/L [facility] Sodium [Moles/Vol] 135 mmol/L Normal 135 [...] 11 mg/dL Normal 5 - 21 mg/dL [facility] Remisol Urea nitrogen/Creatinine [Mass ratio] 22 mg/mg High 10 - 20 [facility] Remisol Capillary Glucose POCon 01-01 Glucose [Mass/Vol] 255 mg/dL High 55-99 [facility] Comment on above: Result Comment: Marino paulson RN/MD Performed By: #### 2 428429, 1956307, 73670590, 029660138, 4053380, 9335399 #### [facility] [address] [place] [address] Glucose [Mass/Vol] 192 mg/dL High 55-99 [facility] Comment on above: Result Comment: Yari jennifer Meter Performed By: #### 2 [id number] ####[facility] [address] [place] [address] Consultation Noteon 01-24-20 Consultation Note Chief Complaint chest pain radiating [...] deep vein thrombosis (DVT) prophylaxis (Z79.899: 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) Orders: ticagrelor, 180 mg [...] tab(s), Or (more content not included)... Normal [facility] Comment on above: Result Comment: Elec tronically Signed By: Kriss HAIDER, Abhishek Hagan\.br\Date and Time Signed: 01/22/23 22:12 EDT Discharge Note-Nursingon Discharge Note-Nursing Patient prescribed Brillinta for discharge. Her preferred pharmacy is [facility] which does not have Brillinta in stock until Wednesday. This RN asked patient to switch pharmacy for this medication so she could strip picker today. Patient refuses to switch pharmacies. She states her sister will not take her to any other pharmacy to pick this up. Per Dr. Lawrence, ok to pull 4 Brillinta to send home with patient to have enough until she can strip picker the medication from her pharmacy. Normal [facility] HEMATOLOGYOrdered By: Cristin Ibarra on 01-23-2023 Erythrocyte [...] 9.5 E9/L Normal 4.0 - 11.0 E9/L [facility] Inpatient Clinical Summaryon 01-23-2023 Inpatient Clinical Summary [place] [id number] Clinical Summary Person Information: Name: ESCOBAR ORTEGA Age: 43 Years : 1980 Sex: Female PCP: Gentry Carrillo MD Marital Status: Phone: [phone] Race: White Ethnicity: Non- or Language: Kuwaiti Visit Id: Visit Reason: Chest pain; CHEST PAIN Speciality: Acuity: Enc Type: Observation Med Service: Medical Arrival: 01/21/2023 16:19:22 Discharge: Dispo Type: Admitted as IP to this Hosp Address: [address] [place] [address] [phone] Provider Notes: Diagnosis: 1:NSTEMI (non-ST elevation myocardial [...] 1. Care Team Members: Attending Physician: Ellie OBANDO MD Consulting Physician: Vladimir Holcomb MD; Abhishek Monterroso MD Referring Physician: Follow up: With: Address: When: Abhishek Monterroso [address] [place], [place] [id number] Business (1) Within 2 weeks Comments: Call for followup appointment With: Address: When: Gentry Carrillo [address] [place] [address], [facility] [place] [phone] Business (1) 01/27/2023 9:30 AM Patient Education Information: CV - Cardiovascular PCI Discharge Instructions (CUSTOM) [facility] Inpatient Patient Summaryon 01-23-2023 Inpatient Patient Summary ESCOBAR ORTGEA :1980 Visit Date:01/21/2023 Inpatient Discharge Instructions Your Care Team Admitting Physician - Ellie OBANDO MD Consulting Physician - Abhishek Monterroso MD, [...] Appointments after Discharge Follow Up with Gentry Carrillo When: 01/27/2023 09:30 AM EDT Where: [address] [facility] [place] [address]- Business (1) Follow Up with Abhishek Monterroso When: Within 2 weeks Comments: Call for followup appointment Where: [place] [address]- Business (1) Medications What How Much When Why Instructions Next Dose New aspirin (aspirin 81 mg Oral EC Tab) 1 Tablets By Mouth Every day Refills: 1 Pickup at [facility] #01855 01/24 New atorvastatin (Lipitor 80 mg Tab) 1 Tablets By Mouth Every day Refills: 1 Pickup at [facility] #[id number] 01/24 New metoprolol (Metoprolol tartrate 25 mg Tab) 1 Tablets By Mouth 2 times a day Refills: 1 Pickup at [facility] #[id number] 01/23 9:00pm New nitroglycerin (nitroglycerin 0.4 mg sublingual Tab) 1 Tablets Sublingual Every 5 minutes as needed for Chest pain not to exceed 3 doses/ 15 min--if pain persists, seek medical attention Pickup at [facility] #66298 New ticagrelor (Brilinta (ticagrelor) 90 mg oral tablet) 1 Tablets By Mouth 2 times a day Chest pain Elevated troponin NSTEMI (non-ST elevation myocardial infarction) Hypertensive urgency Right shoulder pain Refills: 1 Pickup at [facility] #27136 01/23 9:00pm Changed insulin glargine (Lantus insulin) [...] times a day 01/23 9:00pm Pharmacy Information [facility] #[id number]: [address], [place] [id number] [phone] What How Much When Comments Stop Taking naproxen (naproxen sodium 550 mg Tab) 1 Tablets By Mouth 2 times a day Test Results CBC BMP WBC: 9.5 E9/L (01/23/23 06:23:00) Glucose Lvl: 183 mg/dL (01/23/23 06:23:00) RBC: 4.6 E12/L (01/23/23 06:23:00) BUN: 11 mg/dL (01/23/23 06:23:00) HGB: 13.3 gm/dL (01/23/23 06:23:00) Creatinine: 0.5 mg/ (more content not included)... Normal [facility] Inpatient Patient Summary [address] [address] Patient Discharge Instructions PERSON INFORMATION Name: ESCOBAR ORTEGA Date of : 1980 Current Date: 01/23/2023 09:22:43 PHYSICIANS Admitting Physician: Ellie OBANDO MD Primary Care Physician: Gentry Carrillo MD PCP Comment: Discharge Diagnosis: 1:NSTEMI (non-ST elevation myocardial infarction); 2:Coronary artery disease; 3:Chest pain; 4:Elevated troponin; 5:Hypertensive urgency; 6:Right shoulder pain; 7:Leukocytosis; 8:Hyperglycemia; 9:Hyponatremia; 10:Metabolic acidosis; 11:HTN (hypertension); 12:Diabetes mellitus; 13:Obese; 14:On deep vein thrombosis (DVT) prophylaxis Condition at Discharge: Improved ESCOBAR ORTEGA has been given the following list of [...] Follow up: With: Address: When: Abhishek Monterroso [address] [place] [address] Business (1) Within 2 weeks Comments: Call for followup appointment With: Address: When: Gentry Carrillo [address] [place] [address], [place] [address] Post.Bid.Ship (1) 01/27/2023 9:30 AM In the event that this physician does not participate in your insurance network, please consult with your insurance company to find a nearby participating provider. Comment: SAAD Hall CHRYSTAL D, have received the attached patient [...] day. Comment: MEDICATIO (more content not included)... [facility] Interdisciplinary Note - Lemuel e Manageron 01-23-2023 Interdisciplinary Note - Rf Design Engineer Pt is awake and alert in bed, previously rounded with Dr. Obando, await Cardiology to see. Will likely DC [...] Contact information provided and white board updated. [facility] Comment on above: Result Comment: Elec tronically Signed By: Todd CASEY, Jeanie\.br\Date and Time Signed: 01/23/23 12:44 EDT Interdisciplinary Note - Navarro singon 01-23-2023 Interdisciplinary Note - Nursing Patient prescribed Brillinta for discharge. [facility] preferred pharmacy[facility], will not have any of this medication until Wednesday. Patient refuses to switch pharmacies at this time to strip picker enough to last her through the weekend. She states her sister will not take her to any other pharmacy. Per Dr. Lawrence, ok to pull 4 doses of Brillinta 90mg from RX station to send home with patient until she can strip picker medication on Wednesday. Education provided to patient on importance of taking Brillinta exactly how it is prescribed. Informed patient that if she cannot get the rest of her Brillinta on Wednesday for any reason to contact the feed research technician or hospital sanitation supervisor per Dr. Lawrence. Normal [facility] Magnesiumon 01-23-2023 Magnesium [Mass/Vol] 1.5 mg/dL Normal 1.3-2.4 [place] Comment on above: Performed By: #### 2 633503, 3393596, 37020970, 618908719, 0932461, 6188917 #### [facility] [address] [place] [address] Monitor Recordon 01-23-2023 Monitor Record [id number] 0#1.00CD:127 [facility] Monitor Record [id number] 2#1.00CD:127 Normal [facility] Monitor Record [id number] 5#1.00CD:127 [facility] Monitor Record [id number] 7#1.00CD:127 [facility] Operative Reporton 3 Operative Report Indication for Surgery Non-STEMI Preoperative [...] patient will additionally be counseled by the Affiliate Marketing Manager team and in follow-up. Complications None Technique Following full and informed consent the patient was brought to the Affiliate Marketing Manager where sterile prep and drape were administered in usual fashion. Anesthesia was obtained in the right wrist with lidocaine after administration of conscious sedation. A 5/6 slender Terumo sheath was placed in the right radial artery without complication. Nitroglycerin and nicardipine were given via the sheath and heparin was given intravenously. A 5 Kyrgyz JACKE catheter was advanced and selectively engaged in the left main coronary artery and right coronary artery each, where selective injections were performed. A pigtail catheter was placed in the left ventricle where hemodynamic measurements the left ventricle were made and a bolus was given for left ventriculography. A pullback gradient was obtained. A 6 Kyrgyz jl3.5 catheter was advanced and selectively engaged [...] end of the procedure without complication. Normal [facility] Comment on above: Result Comment: Elec tronically [...] She is medically stable for discharge and feed research technician cleared her. We will give for Brilinta from here in order to get her through the weekend and prevent in-stent rethrombosis and potential complication. Nurse will give for medications which will cover patient until Wednesday morning and if any issue patient is to call sanitation supervisor or feed research technician to get it filled somewhere else. Normal [facility] Comment on above: Result Comment: Elec tronically Signed By: Joe LAWRENCE MD\.br\Date and [...] Lipitor, lisinopril, Lopressor. Treated with Lovenox. Ordered: [facility] Hospital Care/Day Moderate 35 Minutes 88113 2. Coronary artery disease (I25.10: Atherosclerotic heart disease of [place] coronary artery without angina pectoris) As seen on cardiac catheterization. Patient has coronary artery disease with mid left circumflex artery occlusion requiring 1 drug-eluting stent placement on 01/22/2023. Continue on aspirin, Brilinta, Lipitor, lisinopril and Lopressor. Ordered: [facility] Hospital Care/Day Moderate 35 Minutes 60770 3. Chest pain (R07.9: Chest pain, unspecified) Secondary to above. Resolved. Ordered: [facility] Care/Day Moderate 35 Minutes 21333 4. Elevated troponin (R77.8: Other specified abnormalities of plasma proteins) Secondary to above. Resolved. Ordered: [facility] Care/Day Moderate 35 Minutes 41738 5. Hypertensive urgency (I16.0: Hypertensive urgency) Resolved. Continue on lisinopril and metoprolol. Ordered: [facility] Care/Day Moderate 35 Minutes 81786 6. Right shoulder pain (M25.511: Pain in right shoulder) Secondary to above #1. With atypical presentation. Ordered: [facility] Hospital Care/Day Moderate 35 Minutes 58868 7. Leukocytosis (D72.829: Elevated white blood cell [...] deep vein thrombosis (DVT) prophylaxis (Z79.899: 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) SCDs. Disposition: Home either today or in a.m. pending cardiology final recommendations. I discussed the diagnosis and plan of care with the patient at the bedside. Moderate level of MDM based on addressing above issues. This documentation was transcribed using voice recognition software. Several attempts were made to ensure accuracy. However inadvertent computerized benchroom shop optician errors may be present. Ellie Obando. Hospitalist. Orders: atorvastatin, 80 mg = 2 [...] -- 0 (more content not included)... Normal [facility] Comment on above: Result Comment: Elec tronically Signed By: GAGE HAIDER, Ellie\.br\Date and Time Signed: 01/23/23 09:13 EDT Troponinon 01-23-2023 Troponin I.cardiac [Mass/Vol] 1304.50 pg/mL Abnormal 10.10-27.10 [facility] Comment on above: Result Comment: Crit ical [...] Sensitivity Troponin I Instructions For Use, Son POI, March 2018) Performed By: #### 2 100539, 4393728, 92446384, 033779309, 7751518, 2216189 #### [facility] [address] [place] [address] eGFRon 01-23-2023 GFR/1.73 sq M.predicted among non-blacks MDRD (S/P/Bld) [Vol rate/Area] 118 mL/min/1.73 m2 Normal >=59 [facility] Comment on above: Order Comment: Order added by Discern Expert. Result Comment: Collar Starcher reji kidney disease could be indicated at eGFR's of less than 60 mL/min/1.73m2. Kidney failure is indicated at less than 15 mL/min/1.73m2. Performed By: #### 2 570595, 3184493, 46268722, 798399290, 6047566, 8234103 #### [facility] [address] [place] [address] Auto Diffon 01-22-2023 Basophils/100 WBC (Bld) 0.4 % Normal 0.0-2.0 [facility] Comment on above: Order Comment: Order Added by Discern Expert. Performed By: #### 2 230644, 1016004, 87626988, 855383022, 0170144, 8496870 #### [facility] [address] [place] [address] Basophils/Leukocytes Auto (Bld) [Pure # fraction] 0.0 E9/L Normal 0.0-0.2 [facility] Comment on above: Order Comment: Order Added by Discern Expert. Performed By: #### 2 891230, 8107193, 24093997, 100422676, 4854743, 8623044 #### [facility] [address] [place] [address] Eosinophils/100 WBC (Bld) 0.2 % Normal 0.0-8.0 [facility] Comment on above: Order Comment: Order Added by Discern Expert. Performed By: #### 2 617544, 1118612, 31155154, 523952659, 0761711, 1247440 #### [facility] [address] [place] [address] 646[address] Eosinophils/Leukocyte s Auto (Bld) [Pure # fraction] 0.0 E9/L Normal 0.0-0.5 [facility] Comment on above: Order Comment: Order Added by Discern Expert. Performed By: #### 2 876908, 5160949, 11878492, 764068783, 3873877, 7589493 #### [facility] [address] [place] [address] Lymphocytes/100 WBC (Bld) 24.9 % Normal 14.0-50.0 [facility] Comment on above: Order Comment: Order Added by Discern Expert. Performed By: #### 2 445236, 9646146, 02361687, 873971931, 8849677, 7172435 #### [facility] [address] [place] [address] 89[address] Lymphocytes/Leukocyte s Auto (Bld) [Pure # fraction] 2.6 E9/L Normal 1.0-4.0 [facility] Comment on above: Order Comment: Order Added by Discern Expert. Performed By: #### 2 720114, 6145578, 83718787, 737976082, 3391290, 3987295 #### [facility] [address] [place] [address] 83082 Monocytes/100 WBC (Bld) 4.6 % Normal 4.0-14.0 [facility] Comment on above: Order Comment: Order Added by Discern Expert. Performed By: #### 2 067348, 9823686, 34311033, 785321486, 9078375, 8009972 #### [facility] [address] [place] [address] 23627 Monocytes/Leukocytes Auto (Bld) [Pure # fraction] 0.5 E9/L Normal 0.2-1.0 [facility] Comment on above: Order Comment: Order Added by Discern Expert. Performed By: #### 2 487108, 7637444, 69230335, 528597444, 5854898, 7448851 #### [facility] [address] [place] [address] 75915 Neutrophils/100 WBC (Bld) 69.9 % Normal 36.0-75.0 [facility] Comment on above: Order Comment: Order Added by Discern Expert. Performed By: #### 2 189858, 0114581, 55912540, 614359086, 3383296, 0486473 #### [facility] [address] [place] [address] Neutrophils/Leukocyte s Auto (Bld) [Pure # fraction] 7.4 E9/L Normal 2.0-7.5 [facility] Comment on above: Order Comment: Order Added by Discern Expert. Performed By: #### 2 047935, 1822184, 63989892, 365147361, 0915254, 8889760 #### [facility] [address] [place] [address] BMPon 01-22-2023 Anion gap [Moles/Vol] 5 mmol/L Low 6-16 [facility] Comment on above: Performed By: #### 2 268698, 6033098, 21139995, 346314504, 6631410, 9409433 #### [facility] [address] [place] [address] Calcium [Mass/Vol] 8.0 mg/dL Low 8.9-11.1 [facility] Comment on above: Performed By: #### 2 472750, 3422581, 73053218, 315636260, 4158075, 6506136 #### [facility] [address] [place] [address] Chloride [Moles/Vol] 107 mmol/L Normal 101-111 [place] Comment on above: Performed By: #### 2 450107, 2405680, 40451013, 729647750, 4372730, 5481800 #### [facility] [address] [place] [address] CO2 [Moles/Vol] 23 mmol/L Normal 21-31 [facility] Comment on above: Performed By: #### 2 332177, 0730169, 88978840, 423147806, 8091295, 0424105 #### [facility] [address] [place] [address] Creatinine [Mass/Vol] 0.6 mg/dL Normal 0.5-1.3 [facility] Comment on above: Performed By: #### 2 778686, 0062855, 53937869, 009289046, 2779453, 2571379 #### [facility] [address] [place] [address] Glucose [Mass/Vol] 293 mg/dL High 55-199 [facility] Comment on above: Result Comment: If t his glucose result represents a fasting glucose, interpretation should refer to the following reference range: 55-99 mg/dL Performed By: #### 2 634910, 8417494, 52525765, 602010100, 1325599, 9555087 #### [facility] [address] [place] [address] Potassium [Moles/Vol] 4.0 mmol/L Normal 3.5-5.3 [facility] Comment on above: Performed By: #### 2 818735, 5611707, 52608453, 453141152, 9019620, 6147138 #### [facility] [address] [place] [address] Sodium [Moles/Vol] 131 mmol/L Low 135-145 [facility] Comment on above: Performed By: #### 2 353227, 7494351, 10297629, 702133325, 2915360, 7773778 #### [facility] [address] [place] [address] Urea nitrogen [Mass/Vol] 20 mg/dL Normal 5-21 [facility] Comment on above: Performed By: #### 2 616498, 6929984, 76727306, 118388776, 2634740, 4143588 #### [facility] [address] [place] [address] Urea nitrogen/Creatinine [Mass ratio] 33 No Units High 10-20 [facility] Comment on above: Performed By: #### 2 809957, 1048451, 71860207, 393035075, 4640466, 9594396 #### [facility] [address] [place] [address] CBC w/ Auto Diffon 3 Erythrocyte distribution width (RBC) [Ratio] 14.0 % Normal 10.9-14.2 [facility] Comment on above: Performed By: #### 2 413616, 4960612, 16158822, 408897926, 9038932, 4895026 #### [facility] [address] [place] [address] Hematocrit (Bld) [Volume fraction] 35.5 % Normal 34.0-46.0 [facility] Comment on above: Performed By: #### 2 526948, 2802000, 30408740, 732998520, 9376832, 4431643 #### [facility] [address] [place] [address] Hemoglobin (Bld) [Mass/Vol] 12.5 g/dL Normal 12.0-16.0 [facility] Comment on above: Performed By: #### 2 867844, 8333512, 55434738, 268254759, 2559913, 4575737 #### [facility] [address] [place] [address] MCH (RBC) [Entitic mass] 28.6 pg Normal 27.0-34.0 [facility] Comment on above: Performed By: #### 2 251211, 2580419, 92997727, 337639165, 4139379, 1201083 #### [facility] [address] [place] [address] MCHC (RBC) [Mass/Vol] 35.1 g/dL Normal 31.4-36.0 [facility] Comment on above: Performed By: #### 2 541803, 2899406, 31041159, 765030552, 0250162, 1423957 #### [facility] [address] [place] [address] MCV (RBC) [Entitic vol] 81.5 fL Normal 80.0-100.0 [facility] Comment on above: Performed By: #### 2 514108, 9320415, 65815061, 856652811, 4394578, 7000981 #### [facility] [address] [place] [address] Platelet mean volume (Bld) [Entitic vol] 8.9 fL Normal 6.4-10.8 [facility] Comment on above: Performed By: #### 2 711619, 6612574, 73002911, 620247994, 3221523, 3892242 #### [facility] [address] [place] [address] Platelets (Bld) [#/Vol] 246.0 E9/L Normal 150.0-500.0 [facility] Comment on above: Performed By: #### 2 346760, 2331477, 53041130, 713350816, 1373768, 6660499 #### [facility] [address] [place] [address] RBC (Bld) [#/Vol] 4.4 E12/L Normal 4.3-5.9 [facility] Comment on above: Performed By: #### 2 226086, 6378134, 64608007, 065295589, 0489379, 3315531 #### [facility] [address] [place] [address] WBC corrected for nucl RBC Auto (Bld) [#/Vol] 10.6 E9/L Normal 4.0-11.0 [facility] Comment on above: Performed By: #### 2 209938, 8453575, 55743702, 496231868, 4531263, 4032676 #### [facility] [address] [place] [address] CHEMISTRYOrdered By: Will ROP User on 01-22-2023 Glucose [Mass/Vol] 378 mg/dL High 55 - 99 mg/dL [facility] C POC Subsection Comment on above: Result Comment: Marino paulson RN/ POC Device SN [id number] Invalid Interpretation Code [facility] [place] Subsection POC User ID [id number] Invalid Interpretation Code [facility] [place] Subsection POC Username KOBI SINGH Invalid Interpretation Code [facility] [place] Subsection CHEMISTRYOrdered By: Stella Lisa on 01-22-2023 Anion gap [Moles/Vol] 5 mmol/L Low 6 - 16 mEq/L [facility] Calcium [Mass/Vol] 8.0 mg/dL Low 8.9 - 11. 1 mg/dL [facility] Chloride [Moles/Vol] 107 mmol/L Normal 101 - 1 11 mmol/L [facility] Cholesterol [Mass/Vol] 205 mg/dL High 120 - 200 mg/dL [facility] Cholesterol in HDL [Mass/Vol] 35 mg/dL Invalid Interpretation Code [facility] Cholesterol in LDL [Mass/Vol] 115 mg/dL Normal <=129mg/dL [facility] Cholesterol in VLDL [Mass/Vol] 60 mg/dL High 7 - 40 mg/dL [facility] CO2 [Moles/Vol] 23 mmol/L Normal 21 - 31 mmol/L [facility] Creatinine [Mass/Vol] 0.6 mg/dL Normal 0.5 - 1.3 mg/dL [facility] Glucose [Mass/Vol] 293 mg/dL High 55 - 199 mg/dL [facility] Potassium [Moles/Vol] 4.0 mmol/L Normal 3.5 - 5.3 mmol/L [facility] Sodium [Moles/Vol] 131 mmol/L Low 135 - 145 mmol/L [facility] Triglyceride [Mass/Vol] 300 mg/dL High <=149mg/dL [facility] Urea nitrogen [Mass/Vol] 20 mg/dL Normal 5 - 21 mg/dL [facility] Urea nitrogen/Creatinine [Mass ratio] 33 mg/mg High 10 - 20 [facility] CHEMISTRYOrdered By: SYSTEM SYSTEM on 01-22-2023 GFR/1.73 sq M.predicted among non-blacks MDRD (S/P/Bld) [Vol rate/Area] 113 mL/min/1.73 m2 Normal >=59mL/min/1. 73 m2 [facility] Chem S Troponin I.cardiac [Mass/Vol] 445.10 pg/mL Invalid Interpretation Code 10.10 - 27.10 pg/mL [facility] Comment on above: Result Comment: Crit ical Result verified by previous result\ Critical Result [id number] Called to ROSSY MOE at 3N by VERONIQUE REID and read back for confirmation at 01/22/2023 01:58:36 CHEMISTRYOrdered By: Christiano Clay on 01-22-2023 HbA1c (Bld) [Mass fraction] 11.1 % High <=5.9% [facility] ChemAutoSS Capillary Glucose POCon 01-01 Glucose [Mass/Vol] 378 mg/dL High 55-99 [facility] Comment on above: Result Comment: Marino paulson RN/ Performed By: #### 2 [id number] ####[facility] [address] [place] [address] Glucose [Mass/Vol] 245 mg/dL High 55[address] [place] [address] Comment on above: Result Comment: Marino paulson RN/ Performed By: #### 2 890259, 0790167, 05592232, 121268252, 9959530, 5442782 #### [facility] [address] [place] [address] Glucose [Mass/Vol] 268 mg/dL High 55-99 [facility] Comment on above: Result Comment: Marino paulson RN/ Performed By: #### 2 [id number] ####[facility] [address] [place] [address] Glucose [Mass/Vol] 215 mg/dL High [address] [place] [address] Comment on above: Result Comment: Marino NEWBY Performed By: #### 2 [id number] ####[facility] [address] [place] [address] Glucose [Mass/Vol] 378 mg/dL High [address] [place] [address] Comment on above: Result Comment: Marino paulson RN/ Performed By: #### 2 899774, 9058110, 91967669, 581341261, 2022557, 4440196 #### [facility] [address] [place] [address] Cardiovascular Reporton 01-01 Cardiovascular Report [id number] 3#2.00CD:127 Normal [facility] HEMATOLOGYOrdered By: SYSTEM SYSTEM on 01-22-2023 Basophils/100 [...] 4.4 E12/L Normal 4.3 - 5.9 E12/L [facility] HemeAutoSS WBC corrected for nucl RBC Auto (Bld) [#/Vol] 10.6 E9/L Normal 4.0 - 11.0 E9/L [facility] HemeAutoSS [id number] 01-22-2023 HbA1c (Bld) [Mass fraction] 11.1 % High <=5.9 [facility] Comment on above: Performed By: #### 2 754785, 7188822, 13999184, 772749388, 4086543, 4169417 #### [facility] [address] [place] [address] Interdisciplinary Note - Lemuel e Manageron 01-22-2023 Interdisciplinary Note - Rf Design Engineer CRM entered the room to discuss dc planning. Contact information provided and whiteboard updated. Pt is getting testing. Pending cardiology. ANt dc today. CRM to follow. Normal [facility] Comment on above: Result Comment: Elec tronically Signed By: Cristin Shane\.br\Date and Time Signed: 01/22/23 10:52 EDT Lipid Panelon 01-22-2023 Cholesterol [Mass/Vol] 205 mg/dL High 120-200 [facility] Comment on above: Performed By: #### 2 985299, 1258172, 75747197, 063939731, 0898970, 8394948 #### [facility] [address] [place] [address] Cholesterol in HDL [Mass/Vol] 35 mg/dL Invalid Interpretation Code [facility] Comment on above: Result Comment: HDL > or equal to 60 mg/dL: Low cardiovascular risk HDL < 40 mg/dL : High cardiovascular risk Performed By: #### 2 589015, 5845388, 77292192, 863586496, 9113542, 5249899 #### [facility] [address] [place] [address] Cholesterol in LDL [Mass/Vol] 115 mg/dL Normal <=129 [facility] Comment on above: Performed By: #### 2 129084, 3168748, 56449636, 203998645, 6075140, 4688723 #### [facility] [address] [place] [address] Cholesterol in VLDL [Mass/Vol] 60 mg/dL High 7-40 [facility] Comment on above: Performed By: #### 2 989428, 3110604, 62772166, 078812195, 3532392, 8657129 #### [facility] [address] [place] [address] Triglyceride [Mass/Vol] 300 mg/dL High <=149 [facility] Comment on above: Performed By: #### 2 210078, 6949550, 60267836, 750896471, 4847984, 3379943 #### [facility] [address] [place] [address] Monitor Recordon 01-22-2023 Monitor Record [id number] 6#1.00CD:127 Normal [facility] Monitor Record [id number] 5#1.00CD:127 Normal [facility] Monitor Record [id number] 6#1.00CD:127 Normal [facility] Monitor Record [id number] 5#1.00CD:127 [facility] Pre-Certification Formon Pre-Certification Form [id number] 5#1.00CD:127 [facility] Progress Note-Nurseon 2022 Progress Note-Nurse Report given to JACINTO Burgos, who is taking over patient's care in room 328. Loretta made aware that patient currently down in CV Lab. Patient's belongings taken to room 328. Patient's family member also taken down to room 328. Normal [facility] Progress Note-Nurse This screenplay writer was notified by Dr. Obando at 1303 that patient will go for heart catheterization today. Per Dr. Obando, hold lovenox and make patient NPO. This screenplay writer will do at this time and notify patient of plan of care. Normal [facility] Progress Note-Nurse This screenplay writer entered the patient's room to place [...] her right arm would intermittently hurt. This screenplay writer asked patient if there was anything she could do to help the patient any further, but patient denied any further needs. This screenplay writer will notify Dr. Obando that patient has had previous right shoulder pain when moving boxes back in November. Normal [facility] Progress Note-Nurse This screenplay writer was notified by the person performing the echo that patient was having 10/10 right shoulder pain at 10:08. This screenplay writer entered the patient's room to personally assess the patient. Patient stated she was having 10/10 right shoulder pain, but denied having chest pain. Morphine was given at 10:10. Patient stated at 10:12 right shoulder pain was now 6/10, with no chest pain. This screenplay writer personally spoke with Dr. Obando on the phone, who stated to have an EKG performed after the Echo and that he would order a lidocaine patch. This screenplay writer notified both patient and Rema, with radiology that was in the patient's room. Normal [facility] Progress Note-Nurse Patient's step mother called, Chari, requesting updates. Chari not listed in contacts. This screenplay writer asked patient if it was okay to give Chari updates. Patient stated, yes. This screenplay writer updated Chari on plan of care. Chari had no further questions at this time. Normal [facility] Progress Note-Physicianon Progress Note-Physician Assessment/Plan 43-year-old female [...] morphine and oxygen. Cardiology consult pending. Ordered: [facility] Hospital Care/Day Moderate 35 Minutes 00183 2. Elevated troponin (R77.8: Other specified abnormalities of plasma proteins) Elevated troponin?secondary to NSTEMI. Cardiology consult pending. Continue on aspirin, Lipitor, Lovenox. Echocardiogram pending. Ordered: [facility] Hospital Care/Day Moderate 35 Minutes 24887 3. NSTEMI (non-ST elevation myocardial infarction) (I21.4: Non-ST elevation (NSTEMI) myocardial infarction) Acute NSTEMI?present on admission. Cardiology consult pending. Echocardiogram pending. Continue on aspirin, Lipitor, lisinopril, Lovenox. Ordered: [facility] Hospital Care/Day Moderate 35 Minutes 69733 4. Hypertensive urgency (I16.0: Hypertensive urgency) Resolved. Continue lisinopril. Ordered: [facility] Hospital Care/Day Moderate 35 Minutes 24279 5. Right shoulder pain (M25.511: Pain in right shoulder) Resolved. Ordered: [facility] Hospital Care/Day Moderate 35 Minutes 33199 6. Leukocytosis (D72.829: Elevated white blood cell [...] deep vein thrombosis (DVT) prophylaxis (Z79.899: Other penitentiary (current) drug therapy) Lovenox. Disposition: Pending echocardiogram and cardiology consult. I discussed the diagnosis and plan of care with the patient at the bedside. Moderate level of MDM based on addressing above issues. This documentation was transcribed using voice recognition software. Several attempts were made to ensure accuracy. However inadvertent computerized benchroom shop optician errors may be present. Ellie Obando. Hospitalist. Subjective Seen and examined. She feels [...] 05:07:00) Lymph Auto: 24.9 % (01/22/23 05:07:00) [place] Auto: 4.6 % (01/22/23 05:07:00) Eos Auto: 0.2 % (01/22/23 05:07:00) Basophil Auto: 0.4 % (01/22/23 05:07:00) Neutro Absolute: 7.4 E9/L (01/22/23 05:07:00) Lymph Absolute: 2.6 E9/L (06 (more content not included)... Normal [facility] Comment on above: Result Comment: Elec tronically Signed By: GAGE HAIDER, Ellie\.br\Date and Time Signed: 01/22/23 09:41 EDT Troponin 6 Hr.on 01-22-2023 Troponin I.cardiac [Mass/Vol] 467.70 pg/mL Abnormal 10.10-27.10 [facility] Comment on above: Result Comment: Crit ical [...] Ruben, March 2018) Performed By: #### 2 714630, 8702929, 57704829, 401505196, 5075484, 0559002 #### [facility] [address] [place] [address] Troponin 9 Hr.on 01-22-2023 Troponin I.cardiac [Mass/Vol] 445.10 pg/mL Abnormal 10.10-27.10 [facility] Comment on above: Result Comment: Crit ical [...] Sensitivity Troponin I Instructions For Use, Son POI, March 2018) Performed By: #### 1 [id number] #### [facility] [address] [place] [address] XR Chest Single Viewon 01-22 XR Chest [...] mGy = na DAP = na Normal [facility] eGFRon 01-22-2023 GFR/1.73 sq M.predicted among non-blacks MDRD (S/P/Bld) [Vol rate/Area] 113 mL/min/1.73 m2 Normal >=59 [facility] Comment on above: Order Comment: Order added by Discern Expert. Result Comment: Collar Starcher reji kidney disease could be indicated at eGFR's of less than 60 mL/min/1.73m2. Kidney failure is indicated at less than 15 mL/min/1.73m2. Performed By: #### 2 230645, 0472726, 70287534, 044230302, 9715677, 8618799 #### [facility] [address] [place] [address] Auto Diffon 01-21-2023 Basophils/100 WBC (Bld) 0.3 % Normal 0.0-2.0 [facility] Comment on above: Order Comment: Order Added by Discern Expert. Performed By: #### 2 713845, 5105696, 42648043, 383514663, 6562401, 3728775 #### [facility] [address] [place] [address] Basophils/Leukocytes Auto (Bld) [Pure # fraction] 0.0 E9/L Normal 0.0-0.2 [facility] Comment on above: Order Comment: Order Added by Discern Expert. Performed By: #### 2 751790, 1872687, 82954795, 293750985, 8033743, 8010453 #### [facility] [address] [place] [address] Eosinophils/100 WBC (Bld) 0.1 % Normal 0.0-8.0 [facility] Comment on above: Order Comment: Order Added by Discern Expert. Performed By: #### 2 621166, 7424033, 31927525, 768866961, 4819066, 8279522 #### [facility] [address] [place] [address] Eosinophils/Leukocyte s Auto (Bld) [Pure # fraction] 0.0 E9/L Normal 0.0-0.5 [facility] Comment on above: Order Comment: Order Added by Discern Expert. Performed By: #### 2 066990, 7763848, 82906414, 224823634, 2885372, 7560840 #### [facility] [address] [place] [address] Lymphocytes/100 WBC (Bld) 8.6 % Low 14.0-50.0 [facility] Comment on above: Order Comment: Order Added by Discern Expert. Performed By: #### 2 471056, 9239279, 88423778, 972523369, 3617507, 3683910 #### [facility] [address] [place] [address] Lymphocytes/Leukocyte s Auto (Bld) [Pure # fraction] 1.2 E9/L Normal 1.0-4.0 [facility] Comment on above: Order Comment: Order Added by Discern Expert. Performed By: #### 2 138218, 1355830, 40275185, 355690940, 6300876, 4591095 #### [facility] [address] [place] [address] Monocytes/100 WBC (Bld) 4.8 % Normal 4.0-14.0 [facility] Comment on above: Order Comment: Order Added by Discern Expert. Performed By: #### 2 789901, 7099493, 65108176, 815461529, 1435300, 2296771 #### [facility] [address] [place] [address] Monocytes/Leukocytes Auto (Bld) [Pure # fraction] 0.7 E9/L Normal 0.2-1.0 [facility] Comment on above: Order Comment: Order Added by Discern Expert. Performed By: #### 2 293421, 8250524, 12562970, 847970233, 1568066, 8240018 #### [facility] [address] [place] [address] Neutrophils/100 WBC (Bld) 86.2 % High 36.0-75.0 [facility] Comment on above: Order Comment: Order Added by Discern Expert. Performed By: #### 2 637302, 2621574, 28226432, 782758896, 2364055, 4834690 #### [facility] [address] [place] [address] Neutrophils/Leukocyte s Auto (Bld) [Pure # fraction] 12.3 E9/L High 2.0-7.5 [facility] Comment on above: Order Comment: Order Added by Discern Expert. Performed By: #### 2 316558, 2708213, 57332882, 133717849, 2008122, 7900775 #### [facility] [address] [place] [address] BMPon 01-21-2023 Anion gap [Moles/Vol] 14 mmol/L Normal 6-16 [facility] Comment on above: Performed By: #### 2 251418, 2878217, 94313776, 955457077, 4144317, 8202255 #### [facility] [address] [place] [address] Calcium [Mass/Vol] 9.0 mg/dL Normal 8.9-11.1 [facility] Comment on above: Performed By: #### 2 381322, 3428720, 47202738, 514302147, 1276776, 6295825 #### [facility] [address] [place] [address] Chloride [Moles/Vol] 101 mmol/L Normal 101-111 [place] Comment on above: Performed By: #### 2 315473, 5650766, 18481403, 465550120, 0604115, 0337374 #### [facility] [address] [place] [address] CO2 [Moles/Vol] 18 mmol/L Low 21-31 [facility] Comment on above: Performed By: #### 2 654983, 1737660, 76064618, 457900388, 4551790, 5114194 #### [facility] [address] [place] [address] Creatinine [Mass/Vol] 0.7 mg/dL Normal 0.5-1.3 [facility] Comment on above: Performed By: #### 2 129279, 4141516, 80896277, 234528528, 8666227, 2967181 #### [facility] [address] [place] [address] Glucose [Mass/Vol] 491 mg/dL Abnormal 55-199 [facility] Comment on above: Result Comment: Crit ical Result verified by repeat analysis\Critical Result [id number] MARTIN AT by CIARA HOWARD And Read Back For Confirmation at: 01/21/2023 17:05:30 If this glucose result represents a fasting glucose, interpretation should refer to the following reference range: 55-99 mg/dL Performed By: #### 2 103278, 4080145, 51608670, 643191836, 5143412, 2280473 #### [facility] [address] [place] [address] Potassium [Moles/Vol] 4.0 mmol/L Normal 3.5-5.3 [facility] Comment on above: Performed By: #### 2 028424, 8002907, 50729764, 365751969, 7229470, 3547215 #### [facility] [address] [place] [address] Sodium [Moles/Vol] 129 mmol/L Low 135-145 [facility] Comment on above: Performed By: #### 2 810825, 1627909, 58885000, 967926992, 0948870, 4759910 #### [facility] [address] [place] [address] Urea nitrogen [Mass/Vol] 23 mg/dL High 5-21 [facility] Comment on above: Performed By: #### 2 887768, 2404543, 56695902, 940772192, 8926275, 7115684 #### [facility] [address] [place] [address] Urea nitrogen/Creatinine [Mass ratio] 33 No Units High 10-20 [facility] Comment on above: Performed By: #### 2 733217, 1471199, 52799764, 459677236, 0841260, 0289969 #### [facility] [address] [place] [address] [facility] 01-21-2023 Beta hydroxybutyrate [Moles/Vol] 0.86 mmol/L High 0.02-0.27 [facility] Comment on above: Performed By: #### 2 421708, 7699838, 33010291, 508197809, 9548880, 5166493 #### [facility] [address] [place], [place] [id number] CBC w/ Auto Diffon 3 Erythrocyte distribution width (RBC) [Ratio] 14.2 % Normal 10.9-14.2 [facility] Comment on above: Performed By: #### 2 794721, 0419904, 68876204, 476625678, 5822645, 1212289 #### [facility] [address] [id number] Hematocrit (Bld) [Volume fraction] 41.9 % Normal 34.0-46.0 [facility] Comment on above: Performed By: #### 2 251613, 4752031, 57094227, 330506925, 0248396, 6786370 #### [facility] [address] [address]33[address] Hemoglobin (Bld) [Mass/Vol] 14.2 g/dL Normal 12.0-16.0 [facility] Comment on above: Performed By: #### 2 509769, 3205838, 10613662, 903913859, 7954401, 0827423 #### [facility] [address] [place] [address] MCH (RBC) [Entitic mass] 28.0 pg Normal 27.0-34.0 [facility] Comment on above: Performed By: #### 2 015596, 9687503, 19596541, 382786511, 0738506, 1760573 #### [facility] [address] [place] [address] MCHC (RBC) [Mass/Vol] 33.9 g/dL Normal 31.4-36.0 [facility] Comment on above: Performed By: #### 2 223224, 1868470, 06114134, 037365162, 4922238, 0502021 #### [facility] [address] [place] [address] MCV (RBC) [Entitic vol] 82.6 fL Normal 80.0-100.0 [facility] Comment on above: Performed By: #### 2 863474, 8510010, 82790379, 152275368, 4172386, 2262902 #### [facility] [address] [place] [address] Platelet mean volume (Bld) [Entitic vol] 8.8 fL Normal 6.4-10.8 [facility] Comment on above: Performed By: #### 2 498409, 2923716, 02138290, 324173723, 2377884, 9152005 #### [facility] [address] [place] [address] Platelets (Bld) [#/Vol] 240.0 E9/L Normal 150.0-500.0 [facility] Comment on above: Performed By: #### 2 645769, 2328025, 27622861, 509085197, 0362312, 7671440 #### [facility] [address] [place] [address] RBC (Bld) [#/Vol] 5.1 E12/L Normal 4.3-5.9 [facility] Comment on above: Performed By: #### 2 527028, 7311918, 40191353, 984480951, 6638202, 9162422 #### [facility] [address] [place] [address] WBC corrected for nucl RBC Auto (Bld) [#/Vol] 14.2 E9/L High 4.0-11.0 [facility] Comment on above: Performed By: #### 2 235763, 0675434, 94989945, 978192774, 2317416, 0435788 #### [facility] [address] [place] [address] CHEMISTRYOrdered By: SYSTEM SYSTEM on 01-21-2023 Troponin I.cardiac [Mass/Vol] 467.70 pg/mL Invalid Interpretation Code 10.10 - 27.10 pg/mL [facility] Comment on above: Result Comment: Crit ical Result verified by previous result\ Critical Result I_hsTnI:[id number] Called to ROSSY MOE at 3N by VERONIQUE REID and read back for confirmation at 01/21/2023 23:51:39 Anion gap [Moles/Vol] 14 mmol/L Normal 6 - 16 mEq/L [facility] Beta hydroxybutyrate [Moles/Vol] 0.86 mmol/L High 0.02 - 0.27 mmol/L [facility] Calcium [Mass/Vol] 9.0 mg/dL Normal 8.9 - 11. 1 mg/dL [facility] Chloride [Moles/Vol] 101 mmol/L Normal 101 - 1 11 mmol/L [facility] CO2 [Moles/Vol] 18 mmol/L Low 21 - 31 mmol/L [facility] Creatinine [Mass/Vol] 0.7 mg/dL Normal 0.5 - 1.3 mg/dL [facility] GFR/1.73 sq M.predicted among non-blacks MDRD (S/P/Bld) [Vol rate/Area] 109 mL/min/1.73 m2 Normal >=59mL/min/1. 73 m2 [facility] Chem S Glucose [Mass/Vol] 491 mg/dL Invalid Interpretation Code 55 - 199 mg/dL [facility] Comment on above: Result Comment: Crit ical Result verified by repeat analysis\Critical Result [id number] MARTIN AT ER by CIARA HOWARD And Read Back For Confirmation at: 01/21/2023 17:05:30 Potassium [Moles/Vol] 4.0 mmol/L Normal 3.5 - 5.3 mmol/L [facility] Sodium [Moles/Vol] 129 mmol/L Low 135 - 145 mmol/L [facility] Urea nitrogen [Mass/Vol] 23 mg/dL High 5 - 21 mg/dL [facility] Urea nitrogen/Creatinine [Mass ratio] 33 mg/mg High 10 - 20 [facility] Consent for Treatmenton 01-01 Consent for Treatment [id number] 98#1.00CD:127 Normal [facility] ED Clinical Summaryon 2022 ED Clinical Summary [address] [address] ED Clinical Summary Person Information Name: ESCOBAR ORTEGA [place] Age: 43 Years : 1980 Sex: Female Language: Kuwaiti PCP: Gentry Carrillo MD Marital Status: Phone: [phone] Visit Id: Visit Reason: Chest pain; CHEST PAIN Speciality: Acuity: 3 Enc Type: Observation Med Service: Medical Arrival: 01/21/2023 16:19:22 Discharge: LOS: 000 03:20 Checkin: 01/21/2023 16:19:22 Checkout: 01/21/2023 19:39:40 Dispo Type: Admitted as IP to this [facility] EVENTS: Event Name Event Status Request Date/Time [...] 19:12:01 Meds Admin Request 01/21/2023 19:13:12 ADDRESS: [address] [place] [address] [address] [phone] PHYS DOC NOTES: MEDICAL INFORMATION: Prescriptions Given: Medications to Continue with No Changes Other Medications acetaminophen-hydroc odone (Vicodin 500mg-5mg Tab) 1 Tablets By Mouth every 4 hours as needed for pain. Refills: 0. PATIENT EDUCATION INFORMATION: Instructions: Follow up: With: Address: When: Gentry Carrillo [address] [place] [address], [facility] [place] [id number] Business (1) In 3 days DIAGNOSIS: 1:Chest pain; 2:Elevated troponin; 3:Hypertensive urgency; 4:Right shoulder pain; 5:Leukocytosis; 6:Hyperglycemia; 7:Hyponatremia; 8:Metabolic acidosis; 9:HTN (hypertension); 10:Diabetes mellitus; 11:Obese; 12:On deep vein thrombosis (DVT) prophylaxis Normal [facility] ED Note-Physicianon 01-22-20 ED Note-Physician Basic Information Time Seen: Daisy Campos M.D. 01/21/2023 16:49 Chief Complaint pt states just seen for arm pain, given rx steroid. 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 Normal [facility] Comment on above: Result Comment: Elec tronically Signed By: Andres Mejia, Daisy Blair\.br\Date and Time Signed: 01/21/23 19:01 EDT ED Patient Education Noteon 01-21-2023 ED Patient Education Note Normal [facility] ED Patient Summaryon 023 ED Patient Summary [address] [place] [id number] Patient Discharge Instructions Person Information Name: ESCOBAR ORTEGA Age: 43 Years Arrival Date: 01/21/2023 16:19:22 Discharge Diagnosis: 1:Chest pain; 2:Elevated troponin; 3:Hypertensive urgency; 4:Right shoulder pain; 5:Leukocytosis; 6:Hyperglycemia; 7:Hyponatremia; 8:Metabolic acidosis; 9:HTN (hypertension); 10:Diabetes mellitus; 11:Obese; 12:On deep vein thrombosis (DVT) prophylaxis Primary Care Physician: Gentry Carrillo MD Provider Information Primary Provider: Daisy Campos M.D. Advanced Production Intern:None The exam and treatment you received in the Emergency Department were for an urgent problem and are not intended as complete care. It is important that you follow up with a doctor, nurse practitioner, or physician?s automotive parts counter assistant for ongoing care. If your symptoms become worse or you do not improve as expected and you are unable to reach your usual health care provider, you should return to the Emergency Department. We are available 24 hours a day. ESCOBAR ORTEGA has been given the following list of patient education materials, prescriptions and follow-up instructions: Follow-up Instructions: With: Address: When: Gentry Carrillo [facility], [place] [address] Business (1) In 3 days In the event that this physician does not participate in your insurance network, please consult with your insurance company to find a nearby participating provider. Patient Education Materials: A MESSAGE TO ALL PATIENTS REGARDING OPIOIDS PRESCRIPTION OPIOIDS: WHAT YOU NEED TO KNOW Prescription opioids can be used to help relieve vbqjoblj-hb-ijsfqh pain and are often prescribed following a [...] and overdo (more content not included)... Normal [facility] HEMATOLOGYOrdered By: SYSTEM SYSTEM on 01-21-2023 Basophils/100 WBC (Bld) 0.3 % Normal 0.0 - 2.0 % [facility] [...] 14.2 E9/L High 4.0 - 11.0 E9/L [facility] HemeAutoSS Monitor Recordon 01-21-2023 Monitor Record [id number] 8#1.00CD:127 Normal [facility] Monitor Record [id number] 5#1.00CD:127 Normal [facility] Troponin 0 Hr.on 01-21-2023 Troponin I.cardiac [Mass/Vol] 201.10 pg/mL Abnormal 10.10-27.10 [facility] Comment on above: Result Comment: Crit ical [...] conjunction with clinical conditions of myocardial infarction. (Cognuse High Sensitivity Troponin I Instructions For Use, [employer], March 2018) Performed By: #### 2 994284, 0757354, 83656468, 104515598, 0670728, 6064668 #### [facility] [address] [place] [address] Troponin 3 Hr.on 01-21-2023 Troponin I.cardiac [Mass/Vol] 258.00 pg/mL Abnormal 10.10-27.10 [facility] Comment on above: Order Comment: pt no t yet in room from er as of 1924 [id number] 01/21/2023 19:37:18 EDT Result Comment: Crit ical [...] conjunction with clinical conditions of myocardial infarction. (Cognuse High Sensitivity Troponin I Instructions For Use, [employer], March 2018) Performed By: #### 1 [id number] #### [facility] [address] [place] [address] UA With Cult Reflexon 2022 Bilirubin Ql (U) Negative Normal Negative [facility] Comment on above: Performed By: #### 1 6179841 ####[facility] [address] [place] [address] Clarity (U) CLEAR Normal Clear [facility] Comment on above: Performed By: #### 1 6869255 ####[address] [address] Color (U) STRAW Abnormal Yellow [facility] Comment on above: Performed By: #### 1 9847501 ####[address] [address] Epithelial cells.squamous LM.HPF (Urine sed) [#/Area] 0-2 Normal 0-2 [facility] Comment on above: Performed By: #### 1 4289713 ####[address] [address] Glucose Test strip (U) [Mass/Vol] 3+ Abnormal Negative [facility] Comment on above: Performed By: #### 1 2847599 ####[address] [address] Hemoglobin Ql (U) Negative Normal Negative [facility] Comment on above: Performed By: #### 1 6042664 ####[address] [address] Ketones (U) [Mass/Vol] 1+ Abnormal Negative [facility] Comment on above: Performed By: #### 1 3817533 ####[address] [address] [place].plasma/Lithiu m.RBC (Bld) [Mass ratio] 0-3 Normal 0-3 [facility] Comment on above: Performed By: #### 1 0254618 ####[address] [address] Nitrite Ql (U) Negative Normal Negative [facility] Comment on above: Performed By: #### 1 0396205 ####[address] [address] pH (U) 6.0 [pH] Invalid Interpretation Code 5.0-9.0 [facility] Comment on above: Performed By: #### 1 1786738 ####[facility] [address] [place] [address] Protein (U) [Mass/Vol] Negative Normal Negative [facility] Comment on above: Performed By: #### 1 9522554 ####[address] [address] Specific gravity (U) [Rel density] 1.015 Invalid Interpretation Code 1.005-1.030 [facility] Comment on above: Performed By: #### 1 1938294 ####[address] [address] Type of Urine collection method Clean Catch Normal [facility] Comment on above: Performed By: #### 1 4152306 ####[address] [address] Urobilinogen Qn (U) 0.2 {Ankit'U}/dL Normal 0.0-1.0 [facility] Comment on above: Performed By: #### 1 5368284 ####[facility] [address] [place] [address] WBC Auto Ql (U) Negative Normal Negative [facility] Comment on above: Performed By: #### 1 4566991 ####[facility] [address] [place] [address] WBC LM.HPF (Urine sed) [#/Area] 0-5 Normal 0-5 [facility] Comment on above: Performed By: #### 1 4339650 ####[address] [address] URINALYSISOrdered By: Rogelio Tiwari on 01-21-2023 Bilirubin Ql (U) Negative (01/21/23 5:53 PM) Normal Negative [facility] UA Auto SS Clarity (U) Clear (01/21/23 5:53 PM) Normal Clear [facility] UA Auto SS Color (U) Straw *ABN* (01/21/23 5:53 PM) Invalid Interpretation Code Yellow [facility] UA Auto SS Epithelial cells.squamous LM.HPF (Urine sed) [#/Area] 0-2 /HPF Normal 0-2/HPF [facility] UA Aut o SS Glucose Test strip (U) [Mass/Vol] 3+ *ABN* (01/21/23 5:53 PM) Invalid Interpretation Code Negative [facility] UA Auto SS Hemoglobin Ql (U) Negative (01/21/23 5:53 PM) Normal Negative [facility] UA Auto SS Ketones (U) [Mass/Vol] 1+ *ABN* (01/21/23 5:53 PM) Invalid Interpretation Code Negative [facility] UA Auto SS [place].plasma/Lithiu m.RBC (Bld) [Mass ratio] 0-3 /HPF Normal 0-3/HPF [facility] UA Auto SS Nitrite Ql (U) Negative (01/21/23 5:53 PM) Normal Negative [facility] UA Auto SS pH (U) 6.0 *NA* (01/21/23 5:53 PM) Invalid Interpretation Code 5.0 - 9.0 [facility]A Auto SS Protein (U) [Mass/Vol] Negative (01/21/23 5:53 PM) Normal Negative [facility] UA Auto SS Specific gravity (U) [Rel density] 1.015 *NA* (01/21/23 5:53 PM) Invalid Interpretation Code 1.005 - 1.030 [facility] UA Auto SS UA Spec Desc Clean Catch (01/21/23 5:53 PM) Normal [facility] UA Auto SS Urobilinogen Qn (U) 0.0216288 {Ankit'U}/dL Normal 0.0 - 1.0 EU/dL [facility] UA Auto SS WBC Auto Ql (U) Negative (01/21/23 5:53 PM) Normal Negative [facility] UA Auto SS WBC LM.HPF (Urine sed) [#/Area] 0-5 /HPF Normal 0-5/HPF [facility] UA Auto SS eGFRon 01-21-2023 GFR/1.73 sq M.predicted among non-blacks MDRD (S/P/Bld) [Vol rate/Area] 109 mL/min/1.73 m2 Normal >=59 [facility] Comment on above: Order Comment: Order Added by Discern Expert. Result Comment: Collar Starcher reji kidney disease could be indicated at eGFR's of less than 60 mL/min/1.73m2. Kidney failure is indicated at less than 15 mL/min/1.73m2. Performed By: #### 2 961724, 4487675, 94221191, 803046810, 0649025, 5240513 #### [facility] [address] [place] [address] Consent for Treatmenton 11-30 Consent for Treatment [id number] #1.00CD:127 Normal [facility] Discharge Instructionson Discharge Instructions [id number] 1#1.00CD:127 Normal [facility] ED Clinical Summaryon 2022 ED Clinical Summary [address] [address] ED Clinical Summary Person Information Name: ESCOBAR ORTEGA [place] Age: 42 Years : 1980 Sex: Female Language: Kuwaiti PCP: Gentry Carrillo MD Marital Status: Phone: [phone] Visit Id: Visit Reason: Foot pain-swelling; RIGHT [...] 12/12/2022 08:15:04 ADDRESS: [address] [phone] PHYS DOC NOTES: MEDICAL INFORMATION: Prescriptions Given: Medications to Continue with No Changes Other Medications acetaminophen-hydroc odone (Vicodin 500mg-5mg Tab) 1 Tablets By Mouth every 4 hours as needed for pain. Refills: 0. PATIENT EDUCATION INFORMATION: Instructions: Foot Contusion Follow up: With: Address: When: Nelson HENSLEY - [facility], [facility], [address], [place] [address] 3 Business (1) In 3 days 12/15/2022 Comments: Call the office of the hat body sorter on Wednesday and arrange for evaluation of the toe. With: Address: When: Gentry Carrillo [address] [place] [address], [place] [address] Business (1) In 3 days 12/15/2022 Comments: [...] from the toe. DIAGNOSIS: Toe contusion Normal [facility] ED Note-Physicianon 12-13-19 ED Note-Physician Basic Information [...] In 3 days 12/15/2022 EDT [facility] - [facility] [address] [place] [address] 8 Business (1) Additional Instructions: Call the office of the hat body sorter on Wednesday and arrange for evaluation of the toe. Gentry Carrillo In 3 days 12/15/2022 EDT [address] [facility] [place] [address]- Business (1) Additional Instructions: Call the office [...] active inp (more content not included)... Normal [facility] Comment on above: Result Comment: Elec tronically Signed By: Pako Metzger DO\.br\Date and Time Signed: 12/12/22 08:25 EDT ED [...] may be recommended to support your foot. Rdev-awc-lhewllg anti-inflammatory medicines may also be recommended for [...] or lying down. General instructions ? Take wmur-syz-qdtuzeb and prescription medicines only as told by [...] provider. Document Revised: 10/22/2021 Document Reviewed: 10/22/2021 [employer] Patient Education ? 2022 [employer] Normal [facility] ED Patient Summaryon 023 ED Patient Summary [address] [address] Patient Discharge Instructions Person Information Name: ESCOBAR ORTEGA Age: 42 Years Arrival Date: 12/12/2022 07:19:23 Discharge Diagnosis: Toe contusion Primary Care Physician: Gentry Carrillo MD Provider Information Primary Provider: Pako Metzger DO Advanced Production Intern:None The exam and treatment you received in the Emergency Department were for an urgent problem and are not intended as complete care. It is important that you follow up with a doctor, nurse practitioner, or physician?s automotive parts counter assistant for ongoing care. If your symptoms become worse or you do not improve as expected and you are unable to reach your usual health care provider, you should return to the Emergency Department. We are available 24 hours a day. ESCOBAR ORTEGA has been given the following list of patient education materials, prescriptions and follow-up instructions: Follow-up Instructions: With: Address: When: Nelson HENSLEY - [facility], [facility], [facility] [address], [place] [address] 0 Business (1) In 3 days 12/15/2022 Comments: Call the office of the hat body sorter on Wednesday and arrange for evaluation of the toe. With: Address: When: Gentry Carrillo [facility], [place] [address] Business (1) In 3 days 12/15/2022 Comments: [...] opioids can be used to help relieve nwfcmlgl-em-srafmx pain and are often prescribed following a [...] psychological, goal-directed (more content not included)... Normal [facility] XR Toe(s) Min 2 Views Righto n [...] AZIZA Technologist: ZORA Technical Comments Radiation Dose: Ka,r in mGy = na DAP = na Normal [facility] PAP ACOG PANEL 2: 30 to 65on 06-22-2022 . . Normal [facility] Comment on above: Result Comment: Perf ormed at: WB Performed By: #### L IPA, AURELIANO, CMP #### [facility] [address] [address] [address] Neisha Araiza Age Gdln ACOG Testing 30-65 Normal [facility] Comment on above: Performed By: #### L IPA, AURELIANO, CMP #### [facility] [address] [address] [address] Neisha Araiza DIAGNOSIS: Comment Normal [facility] Comment on above: Result Comment: NEGA TIVE FOR INTRAEPITHELIAL LESION OR MALIGNANCY. Performed at: WB Performed By: #### L IPA, AURELIANO, CMP #### [facility] [address] [address] [address] Neisha Araiza HPV Aptima Negative Normal Negative [facility] Comment on above: Result Comment: This nucleic acid amplification test detects fourteen high-risk HPV types (16,18,31,33,35,39,45,51,52,56,58,59,66,68) without differentiation. Performed at: =G Performed By: #### L IPA, AURELIANO, CMP #### [facility] [address] [address] [address] Neisha Araiza HPV Genotype Reflex Comment Normal [facility] Comment on above: Result Comment: Crit eria not met, HPV Genotype not performed. Performed at: WB Performed By: #### L IPA, AURELIANO, CMP #### [facility] [address] [address] [address] Neisha Araiza Methodology: Comment Normal [facility] Comment on above: Result Comment: This liquid based ThinPrep(R) pap test was screened with the use of an image guided system. Performed at: WB Performed By: #### L IPA, AURELIANO, CMP #### [facility] [address] [address] [address] Neisha Araiza Note: Comment Normal [facility] Comment on above: Result Comment: The [...] CMP #### [facility] [address] [address] [address] Neisha Araiza Performed by: Comment Normal [facility] Comment on above: Result Comment: Tisha Sanders, Papier Mache Molder (ASCP) Performed at: WB Performed By: #### L AURELIANO DRIVER, CMP #### [facility] [address] [address] [address] Neisha Araiza Specimen adequacy: Comment Normal [facility] Comment on above: Result Comment: Sati sfactory for evaluation. Endocervical and/or squamous metaplastic cells (endocervical component) are present. Performed at: WB Performed By: #### L AURELIANO DRIVER, CMP #### [facility] [address] [address] [address] Neisha Araiza Covid-19 PCR (CVDTBH)on 04-03 SARS-CoV-2 (COVID-19) RNA TIM+probe Ql (Unsp spec) Not detected Normal NOT DETECTED [facility] Comment on above: Result Comment: This test is not yet approved or cleared by the [place] FDA. When there are no FDA-approved or cleared tests available, and other criteria are met, FDA can make tests available under an emergency access mechanism called an Emergency Use Authorization (EUA). The EUA for this test is supported by the [place] of Health and Human Service's (HHS's) declaration [...] BC #### [facility] [address] [address] [address] Neisha Araiza Covid-19 PCR (CVDTBH)on 04-03 SARS-CoV-2 (COVID-19) RNA TIM+probe Ql (Unsp [...] for this test is supported by the [place] of Health and Human Service's (HHS's) declaration [...] C BC #### [facility] [address] [place] [address] Dr. Neisha Araiza CHLAMYDIA/GONOCOCCUS TIM (SW AB/URINE/PAPon 04-17-2022 Chlamydia trachomatis, TIM Negative Normal Negative [facility] Comment on above: Performed By: #### C BC #### [facility] [address] [place] [address] Dr. Neisha Araiza Neisseria gonorrhoeae, TIM Negative Normal Negative [facility] Comment on above: Performed By: #### C BC #### [facility] [address] [address] [address] Neisha Araiza VAGINITIS/VAGINOSIS DNA PROB [employer] 04-16-2022 Val species Positive Abnormal Negative [facility] Comment on above: Performed By: #### L AURELIANO DRIVER, CMP #### [facility] [address] [place] [address] Dr. Neisha Araiza Gardnerella vaginalis Positive Abnormal Negative [facility] Comment on above: Performed By: #### L AURELIANO DRIVER, CMP #### [facility] [address] [place] [address] Dr. Neisha Araiza Trichomonas vaginalis Negative Normal Negative [facility] Comment on above: Performed By: #### L AURELIANO DRIVER, CMP #### [facility] [address] [place] [address] Dr. Neisha Araiza AMYLASEon 01-05-2022 Amylase [Catalytic activity/Vol] 20 U/L Critically low 25-115 [facility] Comment on above: Performed By: #### C BC #### [facility] [address] [place] [address] Dr. Neisha Araiza CBC AUTO DIFFon 01-05-2022 BASO # 0.0 103/ul Normal 0.0-0.1 [facility] Comment on above: Performed By: #### C BC #### [facility] [address] [place] [address] Dr. Neisha Araiza Basophils/100 WBC (Bld) 0.6 % Normal 0.2-2.0 [facility] Comment on above: Performed By: #### C BC #### [facility] [address] [place] [address] Dr. Neisha Araiza EO # 0.1 103/ul Normal 0.0-0.7 [facility] Comment on above: Performed By: #### C BC #### [facility] [address] [place] [address] Dr. Neisha Araiza Eosinophils/100 WBC (Bld) 0.7 % Critically low 0.9-7.0 [facility] Comment on above: Performed By: #### C BC #### [facility] [address] [place] [address] Dr. Neisha Araiza Erythrocyte distribution width (RBC) [Ratio] 13.5 % Normal 11.0-15.0 [facility] Comment on above: Performed By: #### C BC #### [facility] [address] [place] [address] Dr. Neisha Araiza Hematocrit (Bld) [Volume fraction] 35.3 % Critically low 36.0-48.0 [facility] Comment on above: Performed By: #### C BC #### [facility] [address] [place] [address] Dr. Neisha Araiza Hemoglobin (Bld) [Mass/Vol] 11.8 g/dL Critically low 12.0-16.0 [facility] Comment on above: Performed By: #### C BC #### [facility] [address] [place] [address] Dr. Neisha Araiza IG # 0.02 10e3/ul Normal 0.00-0.03 [facility] Comment on above: Performed By: #### C BC #### [facility] [address] [place] [address] Dr. Neisha Araiza IG % 0.3 % Normal 0.0-0.5 [facility] Comment on above: Performed By: #### C BC #### [facility] [address] [place] [address] Dr. Neisha Araiza LYMPH # 2.3 103/ul Normal 1.2-3.8 [facility] Comment on above: Performed By: #### C BC #### [facility] [address] [place] [address] Dr. Neisha Araiza Lymphocytes/100 WBC (Bld) 33.2 % Normal 20.5-60.0 [facility] Comment on above: Performed By: #### C BC #### [facility] [address] [place] [address] Dr. Neisha Araiza MANUAL DIFF REQ NO Normal [facility] Comment on above: Performed By: #### C BC #### [facility] [address] [place] [address] Dr. Neisha Araiza MCH (RBC) [Entitic mass] 29.1 pg Normal 26.7-34.0 [facility] Comment on above: Performed By: #### C BC #### [facility] [address] [place] [address] Dr. Neisha Araiza MCHC (RBC) [Mass/Vol] 33.4 g/dL Normal 29.9-35.2 [facility] Comment on above: Performed By: #### C BC #### [facility] [address] [address] [address] Neisha Araiza MCV (RBC) [Entitic vol] 86.9 fL Normal 81.0-99.0 [facility] Comment on above: Performed By: #### C BC #### [facility] [address] [address] [address] Neisha Araiza MONO # 0.6 103/ul Normal 0.3-0.8 [facility] Comment on above: Performed By: #### C BC #### [facility] [address] [address] [address] Neisha Araiza Monocytes/100 WBC (Bld) 8.6 % Normal 1.7-12.0 [facility] Comment on above: Performed By: #### C BC #### [facility] [address] [address] [address] Neisha Araiza NEUT # 3.9 103/ul Normal 1.4-6.5 [facility] Comment on above: Performed By: #### C BC #### [facility] [address] [place] [address] Dr. Neisha Araiza Neutrophils/100 WBC (Bld) 56.6 % Normal 43.0-75.0 [facility] Comment on above: Performed By: #### C BC #### [facility] [address] [address] [address] Neisha Araiza Platelet mean volume (Bld) [Entitic vol] 9.5 fL Normal 9.5-13.5 [facility] Comment on above: Performed By: #### C BC #### [facility] [address] [address] [address] Neisha Araiza PLT 200 103/ul Normal 150-450 [facility] Comment on above: Performed By: #### C BC #### [facility] [address] [address] [address] Neisha Araiza RBC 4.06 106/ul Critically low 4.20-5.40 [facility] Comment on above: Performed By: #### C BC #### [facility] [address] [address] [address] Neisha Araiza WBC 7.0 103/ul Normal 4.0-11.0 [facility] Comment on above: Performed By: #### C BC #### [facility] [address] [place] [address] Dr. Neisha Araiza LIPASEon 01-05-2022 Lipase [Catalytic activity/Vol] 133.0 U/L Normal 73.0-393.0 [facility] Comment on above: Performed By: #### C BC #### [facility] [address] [place] [address] Dr. Neisha Araiza POINT OF CARE GLUCOSEon Glucose [Mass/Vol] 240 mg/dL Critically high 74-106 [facility] Comment on above: Performed By: #### P OCGLUC #### [facility] [address] [place] [address] Dr. Neisha Araiza Glucose [Mass/Vol] 240 mg/dL Critically high 74-106 [facility] Comment on above: Performed By: #### L IPA, AURELIANO, CMP #### [facility] [address] [place] [address] Dr. Neisha Araiza PROF 14(COMP METB)on 022 Albumin [Mass/Vol] 2.3 g/dL Critically low 3.4-5.0 [facility] Comment on above: Performed By: #### C BC #### [facility] [address] [place] [address] Dr. Neisha Araiza Albumin/Globulin [Mass ratio] 0.8 {ratio} Normal [facility] Comment on above: Performed By: #### C BC #### [facility] [address] [place] [address] Dr. Neisha Araiza ALP [Catalytic activity/Vol] 78 U/L Normal 46-116 [facility] Comment on above: Performed By: #### C BC #### [facility] [address] [place] [address] Dr. Neisha Araiza ALT [Catalytic activity/Vol] 21 U/L Normal 14-59 [facility] Comment on above: Performed By: #### C BC #### [facility] [address] [address] [address] Neisha Araiza Anion gap [Moles/Vol] 15.2 mmol/L Normal [facility] Comment on above: Performed By: #### C BC #### [facility] [address] [address] [address] Neisha Araiza AST [Catalytic activity/Vol] 20 U/L Normal 15-37 [facility] Comment on above: Performed By: #### C BC #### [facility] [address] [address] [address] Neisha Araiza Bilirubin [Mass/Vol] 0.8 mg/dL Normal 0.2-1.0 [facility] Comment on above: Performed By: #### C BC #### [facility] [address] [address] [address] Neisha Araiza Calcium [Mass/Vol] 7.5 mg/dL Critically low 8.5-10.1 [facility] Comment on above: Performed By: #### C BC #### [facility] [address] [address] [address] Neisha Araiza Chloride [Moles/Vol] 105 mmol/L Normal 98-107 [facility] Comment on above: Performed By: #### C BC #### [facility] [address] [address] [address] Neisha Araiza CO2 [Moles/Vol] 19.2 mmol/L Critically low 21.0-32.0 [facility] Comment on above: Performed By: #### C BC #### [facility] [address] [place] [address] Dr. Neisha Araiza Creatinine [Mass/Vol] 0.59 mg/dL Normal 0.55-1.02 [facility] Comment on above: Performed By: #### C BC #### [facility] [address] [place] [address] Dr. Neisha Araiza EGFR-AF EGYPTIAN >60 Normal >=60 [facility] Comment on above: Performed By: #### C BC #### [facility] [address] [address] [address] Neisha Araiza EGFR-NON AF EGYPTIAN >60 Normal >=60 [facility] Comment on above: Performed By: #### C BC #### [facility] [address] [address] [address] Neisha Araiza Globulin (S) [Mass/Vol] 2.9 g/dL Normal [facility] Comment on above: Performed By: #### C BC #### [facility] [address] [address] [address] Neisha Araiza Glucose [Mass/Vol] 240 mg/dL Critically high 74-106 [facility] Comment on above: Performed By: #### C BC #### [facility] [address] [address] [address] Neisha Araiza Potassium [Moles/Vol] 3.4 mmol/L Critically low 3.5-5.1 [facility] Comment on above: Performed By: #### C BC #### [facility] [address] [address] [address] Neisha Araiza Protein [Mass/Vol] 5.2 g/dL Critically low 6.4-8.2 [facility] Comment on above: Performed By: #### C BC #### [facility] [address] [address] [address] Neisha Araiza Sodium [Moles/Vol] 136 mmol/L Normal 136-145 [facility] Comment on above: Performed By: #### C BC #### [facility] [address] [address] [address] Neisha Araiza Urea nitrogen [Mass/Vol] 9.0 mg/dL Normal 7.0-18.0 [facility] Comment on above: Performed By: #### C BC #### [facility] [address] [place] [address] Dr. Neisha Araiza Urea nitrogen/Creatinine [Mass ratio] 15.3 mg/mg Normal [facility] Comment on above: Performed By: #### C BC #### [facility] [address] [address] [address] Neisha Araiza BLOOD GASES BTYon 01-04-2022 02 MODE ROOM AIR [facility] Comment on above: Performed By: #### C BC #### [facility] [address] [address] [address] Neisha Araiza ALLENS TEST Positive [facility] Comment on above: Performed By: #### C BC #### [facility] [address] [address] [address] Neisha Araiza Base excess Calc (Bld) [Moles/Vol] -10.43257 mmol/L Critically low -2.0-2.0 [facility] Comment on above: Performed By: #### C BC #### [facility] [address] [address] [address] Neisha Araiza BIPAP PRESSURE [facility] Comment on above: Performed By: #### C BC #### [facility] [address] [place] [address] Dr. Neisha Araiza CO2 [Moles/Vol] 29.0 mmol/L Critically high 23.0-28.0 [facility] Comment on above: Performed By: #### C BC #### [facility] [address] [address] [address] Neisha Araiza CPAP [facility] Comment on above: Performed By: #### C BC #### [facility] [address] [address] [address] Neisha Araiza FIO2 [facility] Comment on above: Performed By: #### C BC #### [facility] [address] [address] [address] Neisha Araiza HCO3 (Bld) [Moles/Vol] 17.9 mmol/L Critically low 22.0-26.0 [facility] Comment on above: Performed By: #### C BC #### [facility] [address] [place] [address] Dr. Neisha Araiza LPM [facility] Comment on above: Performed By: #### C BC #### [facility] [address] [place] [address] Dr. Neisha Araiza MINUTE VOLUME Normal [facility] Comment on above: Performed By: #### C BC #### [facility] [address] [address] [address] Neisha Araiza Oxygen (Bld) [Partial pressure] 95.8 mm[Hg] Normal 80.0-100.0 [facility] Comment on above: Performed By: #### C BC #### [facility] [address] [address] [address] Neisha Araiza Oxygen saturation in Blood 98.6 % Normal 95.0-100.0 [facility] Comment on above: Performed By: #### C BC #### [facility] [address] [address] [address] Neisha Araiza PCO2 22.9 mmHg Critically low 35.0-45.0 [facility] Comment on above: Performed By: #### C BC #### [facility] [address] [place] [address] Dr. Neisha Araiza [facility] Comment on above: Performed By: #### C BC #### [facility] [address] [place] [address] Dr. Neisha Araiza pH (Bld) 7.408 [pH] Normal 7.350-7.450 [facility] Comment on above: Performed By: #### C BC #### [facility] [address] [place] [address] Dr. Neisha Araiza [facility] Comment on above: Performed By: #### C BC #### [facility] [address] [place] [address] Dr. Neisha Araiza [facility] Comment on above: Performed By: #### C BC #### [facility] [address] [address] [address] Neisha Araiza PUNCTURE SITE RR [facility] Comment on above: Performed By: #### C BC #### [facility] [address] [address] [address] Neisha Araiza RATE [facility] Comment on above: Performed By: #### C BC #### [facility] [address] [address] [address] Neisha Araiza VENT MODE Normal [facility] Comment on above: Performed By: #### C BC #### [facility] [address] [place] [address] Dr. Neisha Araiza VT Normal [facility] Comment on above: Performed By: #### C BC #### [facility] [address] [place] [address] Dr. Neisha Araiza CBC AUTO DIFFon 01-04-2022 BASO # 0.0 103/ul Normal 0.0-0.1 [facility] Comment on above: Performed By: #### C BC #### [facility] [address] [place] [address] Dr. Neisha Araiza Basophils/100 WBC (Bld) 0.3 % Normal 0.2-2.0 [facility] Comment on above: Performed By: #### C BC #### [facility] [address] [place] [address] Dr. Neisha Araiza EO # 0.0 103/ul Normal 0.0-0.7 [facility] Comment on above: Performed By: #### C BC #### [facility] [address] [place] [address] Dr. Neisha Araiza Eosinophils/100 WBC (Bld) 0.0 % Critically low 0.9-7.0 [facility] Comment on above: Performed By: #### C BC #### [facility] [address] [place] [address] Dr. Neisha Araiza Erythrocyte distribution width (RBC) [Ratio] 13.5 % Normal 11.0-15.0 [facility] Comment on above: Performed By: #### C BC #### [facility] [address] [place] [address] Dr. Neisha Araiza Hematocrit (Bld) [Volume fraction] 39.1 % Normal 36.0-48.0 [facility] Comment on above: Performed By: #### C BC #### [facility] [address] [place] [address] Dr. Neisha Araiza Hemoglobin (Bld) [Mass/Vol] 13.3 g/dL Normal 12.0-16.0 [facility] Comment on above: Performed By: #### C BC #### [facility] [address] [place] [address] Dr. Neisha Araiza IG # 0.05 10e3/ul Critically high 0.00-0.03 [facility] Comment on above: Performed By: #### C BC #### [facility] [address] [place] [address] Dr. Neisha Araiza IG % 0.5 % Normal 0.0-0.5 [facility] Comment on above: Performed By: #### C BC #### [facility] [address] [place] [address] Dr. Neisha Araiza LYMPH # 1.4 103/ul Normal 1.2-3.8 [facility] Comment on above: Performed By: #### C BC #### [facility] [address] [place] [address] Dr. Neisha Araiza Lymphocytes/100 WBC (Bld) 14.8 % Critically low 20.5-60.0 [facility] Comment on above: Performed By: #### C BC #### [facility] [address] [place] [address] Dr. Neisha Araiza MANUAL DIFF REQ NO Normal [facility] Comment on above: Performed By: #### C BC #### [facility] [address] [place] [address] Dr. Neisha Araiza MCH (RBC) [Entitic mass] 28.6 pg Normal 26.7-34.0 [facility] Comment on above: Performed By: #### C BC #### [facility] [address] [place] [address] Dr. Neisha Araiza MCHC (RBC) [Mass/Vol] 34.0 g/dL Normal 29.9-35.2 [facility] Comment on above: Performed By: #### C BC #### [facility] [address] [place] [address] Dr. Neisha Araiza MCV (RBC) [Entitic vol] 84.1 fL Normal 81.0-99.0 [facility] Comment on above: Performed By: #### C BC #### [facility] [address] [address] [address] Neisha Araiza MONO # 0.6 103/ul Normal 0.3-0.8 [facility] Comment on above: Performed By: #### C BC #### [facility] [address] [address] [address] Neisha Araiza Monocytes/100 WBC (Bld) 5.8 % Normal 1.7-12.0 [facility] Comment on above: Performed By: #### C BC #### [facility] [address] [address] [address] Neisha Araiza NEUT # 7.6 103/ul Critically high 1.4-6.5 [facility] Comment on above: Performed By: #### C BC #### [facility] [address] [address] [address] Neisha Araiza Neutrophils/100 WBC (Bld) 78.6 % Critically high 43.0-75.0 [facility] Comment on above: Performed By: #### C BC #### [facility] [address] [address] [address] Neisha Araiza Platelet mean volume (Bld) [Entitic vol] 9.9 fL Normal 9.5-13.5 [facility] Comment on above: Performed By: #### C BC #### [facility] [address] [address] [address] Neisha Araiza PLT 280 103/ul Normal 150-450 [facility] Comment on above: Performed By: #### C BC #### [facility] [address] [address] [address] Neisha Araiza RBC 4.65 106/ul Normal 4.20-5.40 [facility] Comment on above: Performed By: #### C BC #### [facility] [address] [address] [address] Neisha Araiza WBC 9.7 103/ul Normal 4.0-11.0 [facility] Comment on above: Performed By: #### C BC #### [facility] [address] [place] [address] Dr. Neisha Araiza Covid-19 PCR (CVDTB)on SARS-CoV-2 (COVID-19) RNA TIM+probe Ql (Unsp spec) [...] for this test is supported by the [place] [employer] and Human Service's declaration that [...] C BC #### [facility] [address] [place] [address] Dr. Neisha Araiza POINT OF CARE GLUCOSEon Glucose [Mass/Vol] 215 mg/dL Critically high 74-106 [facility] Comment on above: Performed By: #### L AURELIANO DRIVER, CMP #### [facility] [address] [place] [address] Dr. Neisha Araiza Glucose [Mass/Vol] 187 mg/dL Critically high -106 [facility] Comment on above: Performed By: #### C BC #### [facility] [address] [place] [address] Dr. Neisha Araiza Glucose [Mass/Vol] 240 mg/dL Critically high -106 [facility] Comment on above: Performed By: #### C BC #### [facility] [address] [place] [address] Dr. Neisha Araiza Glucose [Mass/Vol] 251 mg/dL Critically high 74-106 [facility] Comment on above: Performed By: #### C BC #### [facility] [address] [place] [address] Dr. Neisha Araiza Glucose [Mass/Vol] 264 mg/dL Critically high 74-106 [facility] Comment on above: Performed By: #### L NEISHA AURELIANO, CMP #### [facility] [address] [place] [address] Dr. Neisha Araiza PROF 14(COMP METB)on 022 Albumin [Mass/Vol] 2.9 g/dL Critically low 3.4-5.0 [facility] Comment on above: Performed By: #### L AURELIANO DRIVER, CMP #### [facility] [address] [place] [address] Dr. Neisha Araiza Albumin/Globulin [Mass ratio] 0.9 {ratio} Normal [facility] Comment on above: Performed By: #### L NEISHA AURELIANO, CMP #### [facility] [address] [place] [address] Dr. Neisha Araiza ALP [Catalytic activity/Vol] 92 U/L Normal 46-116 [facility] Comment on above: Performed By: #### L AURELIANO DRIVER, CMP #### [facility] [address] [place] [address] Dr. Neisha Araiza ALT [Catalytic activity/Vol] 28 U/L Normal 14-59 [facility] Comment on above: Performed By: #### L NEISHA AURELIANO, CMP #### [facility] [address] [place] [address] Dr. Neisha Araiza Anion gap [Moles/Vol] 19.9 mmol/L Normal [facility] Comment on above: Performed By: #### L NESIHA AURELIANO, CMP #### [facility] [address] [place] [address] Dr. Neisha Araiza AST [Catalytic activity/Vol] 14 U/L Critically low 15-37 [facility] Comment on above: Performed By: #### L NEISHA AURELIANO, CMP #### [facility] [address] [place] [address] Dr. Neisha Araiza Calcium [Mass/Vol] 7.8 mg/dL Critically low 8.5-10.1 [facility] Comment on above: Performed By: #### L AURELIANO DRIVER, CMP #### [facility] [address] [address] [address] Neisha Araiza Chloride [Moles/Vol] 102 mmol/L Normal 98-107 [facility] Comment on above: Performed By: #### L AURELIANO DRIVER, CMP #### [facility] [address] [address] [address] Neisha Araiza CO2 [Moles/Vol] 17.7 mmol/L Critically low 21.0-32.0 [facility] Comment on above: Performed By: #### L AURELIANO DRIVER, CMP #### [facility] [address] [address] [address] Neisha Araiza Creatinine [Mass/Vol] 0.60 mg/dL Normal 0.55-1.02 [facility] Comment on above: Performed By: #### L AURELIANO DRIVER, CMP #### [facility] [address] [address] [address] Neisha Araiza EGFR-AF EGYPTIAN >60 Normal >=60 [facility] Comment on above: Performed By: #### L AURELIANO DRIVER, CMP #### [facility] [address] [address] [address] Neisha Araiza EGFR-NON AF EGYPTIAN >60 Normal >=60 [facility] Comment on above: Performed By: #### L AURELIANO DRIVER, CMP #### [facility] [address] [address] [address] Neisha Araiza Globulin (S) [Mass/Vol] 3.4 g/dL Normal [facility] Comment on above: Performed By: #### L AURELIANO DRIVER, CMP #### [facility] [address] [address] [address] Neisha Araiza Glucose [Mass/Vol] 272 mg/dL Critically high 74-106 [facility] Comment on above: Performed By: #### L AURELIANO DRIVER, CMP #### [facility] [address] [address] [address] Neisha Araiza Potassium [Moles/Vol] 3.6 mmol/L Normal 3.5-5.1 [facility] Comment on above: Performed By: #### L AURELIANO DRIVER, CMP #### [facility] [address] [address] [address] Neisha Araiza Protein [Mass/Vol] 6.3 g/dL Critically low 6.4-8.2 [facility] Comment on above: Performed By: #### L AURELIANO DRIVER, CMP #### [facility] [address] [address] [address] Neisha Araiza Sodium [Moles/Vol] 136 mmol/L Normal 136-145 [facility] Comment on above: Performed By: #### L AURELIANO DRIVER, CMP #### [facility] [address] [place] [address] Dr. Neisha Araiza Urea nitrogen [Mass/Vol] 9.0 mg/dL Normal 7.0-18.0 [facility] Comment on above: Performed By: #### L AURELIANO DRIVER, CMP #### [facility] [address] [address] [address] Neisha Araiza Urea nitrogen/Creatinine [Mass ratio] 15.0 mg/mg Normal [facility] [facility] Comment on above: Performed By: #### L AURELIANO DRIVER, CMP #### [facility] [address] [place] [address] Dr. Neisha Araiza XR ABD FLAT_UPon 01-04-2022 [...] by: MARIAELENA BROWN Date: 2022-01-04 01:26 Normal [facility] ACETONE SERUMon 01-03-2022 ACETONE Negative Normal NEGATIVE [facility] Comment on above: Performed By: #### A CETON #### [facility] [address] [address] [address] Neisha Araiza ACETONE SMALL Abnormal NEGATIVE [facility] Comment on above: Performed By: #### C BC #### [facility] [address] [address] [address] Neisha Araiza AMYLASEon 01-03-2022 Amylase [Catalytic activity/Vol] 15 U/L Critically low 25-115 [facility] Comment on above: Performed By: #### L IPA, AURELIANO, CMP #### [facility] [address] [address] [address] Neisha Araiza CARDIAC BRI ADMITon 022 CK [Catalytic activity/Vol] 44 U/L Normal 26-192 [facility] Comment on above: Performed By: #### L IPA, AURELIANO, CMP #### [facility] [address] [place] [address] Dr. Neisha Araiza CK.MB [Mass/Vol] 0.93 ng/mL Normal <=3.60 [facility] Comment on above: Performed By: #### L IPA, AURELIANO, CMP #### [facility] [address] [place] [address] Dr. Neisha Araiza HSTROP 4.1 pg/mL Normal 4.0-51.3 [facility] Comment on above: Result Comment: CUT- OFF POINTS HAVE BEEN ESTABLISHED BASED ON THE FOURTH UNIVERSAL DEFINITIONS OF MYOCARDIAL INFARCTION. THE UPPER REFERENCE LIMIT (URL) OF TROPONIN, DEFINED THE 99TH PERCENTILE OF cTnI DISTRIBUTION IN A REFERENCE POPULATION, HAS BEEN CONFIRMED THE DECISION THRESHOLD FOR TX DIAGNOSIS. Performed By: #### L IPA, AURELIANO, CMP #### [facility] [address] [place] [address] Dr. Neisha Araiza ROCIO 20 ng/mL Normal 9-82 [facility] Comment on above: Performed By: #### L IPA, AURELIANO, CMP #### [facility] [address] [place] [address] Dr. Neisha Araiza CBC AUTO DIFFon 01-03-2022 Basophils/100 WBC (Bld) 0.3 % Normal 0.2-2.0 [facility] Comment on above: Performed By: #### C BC #### [facility] [address] [address] [address] Neisha Araiza Hematocrit (Bld) [Volume fraction] 42.7 % Normal 36.0-48.0 [facility] Comment on above: Performed By: #### C BC #### [facility] [address] [address] [address] Neisha Araiza Hemoglobin (Bld) [Mass/Vol] 14.3 g/dL Normal 12.0-16.0 [facility] Comment on above: Performed By: #### C BC #### [facility] [address] [place] [address] Dr. Neisha Araiza IG # 0.03 10e3/ul Normal 0.00-0.03 [facility] Comment on above: Performed By: #### C BC #### [facility] [address] [place] [address] Dr. Neisha Araiza IG % 0.3 % Normal 0.0-0.5 [facility] Comment on above: Performed By: #### C BC #### [facility] [address] [address] [address] Neisha Araiza LYMPH # 1.1 103/ul Critically low 1.2-3.8 [facility] Comment on above: Performed By: #### C BC #### [facility] [address] [address] [address] Neisha Araiza Lymphocytes/100 WBC (Bld) 12.9 % Critically low 20.5-60.0 [facility] Comment on above: Performed By: #### C BC #### [facility] [address] [address] [address] Neisha Araiza MCHC (RBC) [Mass/Vol] 33.5 g/dL Normal 29.9-35.2 [facility] Comment on above: Performed By: #### C BC #### [facility] [address] [address] [address] Neisha Araiza MCV (RBC) [Entitic vol] 85.2 fL Normal 81.0-99.0 [facility] Comment on above: Performed By: #### C BC #### [facility] [address] [address] [address] Neisha Araiza MONO # 0.3 103/ul Normal 0.3-0.8 [facility] Comment on above: Performed By: #### C BC #### [facility] [address] [address] [address] Neisha Araiza Monocytes/100 WBC (Bld) 3.3 % Normal 1.7-12.0 [facility] Comment on above: Performed By: #### C BC #### [facility] [address] [address] [address] Neisha Araiza NEUT # 7.3 103/ul Critically high 1.4-6.5 [facility] Comment on above: Performed By: #### C BC #### [facility] [address] [place] [address] Dr. Neisha Araiza Neutrophils/100 WBC (Bld) 83.2 % Critically high 43.0-75.0 [facility] Comment on above: Performed By: #### C BC #### [facility] [address] [place] [address] Dr. Neisha Araiza PLT 281 103/ul Normal 150-450 [facility] Comment on above: Performed By: #### C BC #### [facility] [address] [place] [address] Dr. Neisha Araiza RBC 5.01 106/ul Normal 4.20-5.40 [facility] Comment on above: Performed By: #### C BC #### [facility] [address] [place] [address] Dr. Neisha Araiza WBC 8.8 103/ul Normal 4.0-11.0 [facility] Comment on above: Performed By: #### C BC #### [facility] [address] [place] [address] Dr. Neisha Araiza BASO # 0.0 103/ul Normal 0.0-0.1 [facility] Comment on above: Performed By: #### C BC #### [facility] [address] [place] [address] Dr. Neisha Araiza Performed By: #### A CETON #### [facility] [address] [place] [address] Dr. Neisha Araiza Basophils/100 WBC (Bld) 0.5 % Normal 0.2-2.0 [facility] Comment on above: Performed By: #### A CETON #### [facility] [address] [place] [address] Dr. Neisha Araiza EO # 0.0 103/ul Normal 0.0-0.7 [facility] Comment on above: Performed By: #### C BC #### [facility] [address] [place] [address] Dr. Neisha Araiza Performed By: #### A CETON #### [facility] [address] [place] [address] Dr. Neisha Araiza Eosinophils/100 WBC (Bld) 0.0 % Critically low 0.9-7.0 [facility] Comment on above: Performed By: #### C BC #### [facility] [address] [place] [address] Dr. Neisha Araiza Performed By: #### A CETON #### [facility] [address] [place] [address] Dr. Neisha Araiza Erythrocyte distribution width (RBC) [Ratio] 13.2 % Normal 11.0-15.0 [facility] Comment on above: Performed By: #### C BC #### [facility] [address] [place] [address] Dr. Neisha Araiza Performed By: #### A CETON #### [facility] [address] [place] [address] Dr. Neisha Araiza Hematocrit (Bld) [Volume fraction] 45.8 % Normal 36.0-48.0 [facility] Comment on above: Performed By: #### A CETON #### [facility] [address] [place] [address] Dr. Neisha Araiza Hemoglobin (Bld) [Mass/Vol] 15.6 g/dL Normal 12.0-16.0 [facility] Comment on above: Performed By: #### A CETON #### [facility] [address] [address] [address] Neisha Araiza IG # 0.05 10e3/ul Critically high 0.00-0.03 [facility] Comment on above: Performed By: #### A CETON #### [facility] [address] [address] [address] Neisha Araiza IG % 0.6 % Critically high 0.0-0.5 [facility] Comment on above: Performed By: #### A CETON #### [facility] [address] [place] [address] Dr. Neisha Araiza LYMPH # 0.7 103/ul Critically low 1.2-3.8 [facility] Comment on above: Performed By: #### A CETON #### [facility] [address] [place] [address] Dr. Neisha Araiza Lymphocytes/100 WBC (Bld) 8.3 % Critically low 20.5-60.0 [facility] Comment on above: Performed By: #### A CETON #### [facility] [address] [place] [address] Dr. Neisha Araiza MANUAL DIFF REQ NO Normal [facility] Comment on above: Performed By: #### C BC #### [facility] [address] [place] [address] Dr. Neisha Araiza Performed By: #### A CETON #### [facility] [address] [place] [address] Dr. Neisha Araiza MCH (RBC) [Entitic mass] 28.5 pg Normal 26.7-34.0 [facility] Comment on above: Performed By: #### C BC #### [facility] [address] [place] [address] Dr. Neisha Araiza Performed By: #### A CETON #### [facility] [address] [place] [address] Dr. Neisha Araiza MCHC (RBC) [Mass/Vol] 34.1 g/dL Normal 29.9-35.2 [facility] Comment on above: Performed By: #### A CETON #### [facility] [address] [place] [address] Dr. Neisha Araiza MCV (RBC) [Entitic vol] 83.7 fL Normal 81.0-99.0 [facility] Comment on above: Performed By: #### A CETON #### [facility] [address] [place] [address] Dr. Neisha Araiza MONO # 0.2 103/ul Critically low 0.3-0.8 [facility] Comment on above: Performed By: #### A CETON #### [facility] [address] [place] [address] Dr. Neisha Araiza Monocytes/100 WBC (Bld) 2.7 % Normal 1.7-12.0 [facility] Comment on above: Performed By: #### A CETON #### [facility] [address] [place] [address] Dr. Neisha Araiza NEUT # 6.9 103/ul Critically high 1.4-6.5 [facility] Comment on above: Performed By: #### A CETON #### [facility] [address] [place] [address] Dr. Neisha Araiza Neutrophils/100 WBC (Bld) 87.9 % Critically high 43.0-75.0 [facility] Comment on above: Performed By: #### A CETON #### [facility] [address] [place] [address] Dr. Neisha Araiza Platelet mean volume (Bld) [Entitic vol] 9.9 fL Normal 9.5-13.5 [facility] Comment on above: Performed By: #### C BC #### [facility] [address] [place] [address] Dr. Neisha Araiza Performed By: #### A CETON #### [facility] [address] [place] [address] Dr. Neisha Araiza PLT 260 103/ul Normal 150-450 [facility] Comment on above: Performed By: #### A CETON #### [facility] [address] [address] [address] Neisha Araiza RBC 5.47 106/ul Critically high 4.20-5.40 [facility] Comment on above: Performed By: #### A CETON #### [facility] [address] [place] [address] Dr. Neisha Araiza WBC 7.8 103/ul Normal 4.0-11.0 [facility] Comment on above: Performed By: #### A CETON #### [facility] [address] [place] [address] Dr. Neisha Araiza LIPASEon 01-03-2022 Lipase [Catalytic activity/Vol] 72.0 U/L Critically low 73.0-393.0 [facility] Comment on above: Performed By: #### L AURELIANO DRIVER, CMP #### [facility] [address] [place] [address] Dr. Neisha Araiza PH VENOUS BLOODon 01-03-2022 PCO2 VENOUS 34.2 mmHg Critically low 40.0-52.0 [facility] Comment on above: Performed By: #### L AURELIANO DRIVER, CMP #### [facility] [address] [place] [address] Dr. Neisha Araiza pH VENOUS 7.370 Normal 7.330-7.430 [facility] Comment on above: Performed By: #### L AURELIANO DRIVER, CMP #### [facility] [address] [place] [address] Dr. Neisha Araiza POINT OF CARE GLUCOSEon Glucose [Mass/Vol] 283 mg/dL Critically high 74-106 [facility] Comment on above: Performed By: #### L AURELIANO DRIVER, CMP #### [facility] [address] [place] [address] Dr. Neisha Araiza Glucose [Mass/Vol] 297 mg/dL Critically high 74-106 [facility] Comment on above: Performed By: #### A CETON #### [facility] [address] [place] [address] Dr. Neisha Araiza PROF 14(COMP METB)on 022 Albumin [Mass/Vol] 3.6 g/dL Normal 3.4-5.0 [facility] Comment on above: Performed By: #### L AURELIANO DRIVER, CMP #### [facility] [address] [address] [address] Neisha Araiza Albumin/Globulin [Mass ratio] 0.8 {ratio} Normal [facility] Comment on above: Performed By: #### L AURELIANO DRIVER, CMP #### [facility] [address] [address] [address] Neisha Araiza ALP [Catalytic activity/Vol] 131 U/L Critically high 46-116 [facility] Comment on above: Performed By: #### L AURELIANO DRIVER, CMP #### [facility] [address] [address] [address] Neisha Araiza ALT [Catalytic activity/Vol] 39 U/L Normal 14-59 [facility] Comment on above: Performed By: #### L AURELIANO DRIVER, CMP #### [facility] [address] [address] [address] Neisha Araiza Anion gap [Moles/Vol] 20.7 mmol/L Normal [facility] Comment on above: Performed By: #### L AURELIANO DRIVER, CMP #### [facility] [address] [address] [address] Neisha Araiza AST [Catalytic activity/Vol] 19 U/L Normal 15-37 [facility] Comment on above: Performed By: #### L AURELIANO DRIVER, CMP #### [facility] [address] [address] [address] Neisha Araiza Calcium [Mass/Vol] 8.9 mg/dL Normal 8.5-10.1 [facility] Comment on above: Performed By: #### L AURELIANO DRIVER, CMP #### [facility] [address] [address] [address] Neisha Araiza Chloride [Moles/Vol] 97 mmol/L Critically low 98-107 [facility] Comment on above: Performed By: #### L AURELIANO DRIVER, CMP #### [facility] [address] [address] [address] Neisha Araiza CO2 [Moles/Vol] 19.2 mmol/L Critically low 21.0-32.0 [facility] Comment on above: Performed By: #### L AURELIANO DRIVER, CMP #### [facility] [address] [place] [address] Dr. Neisha Araiza Creatinine [Mass/Vol] 0.60 mg/dL Normal 0.55-1.02 [facility] Comment on above: Performed By: #### L AURELIANO DRIVER, CMP #### [facility] [address] [place] [address] Dr. Neisha Araiza Globulin (S) [Mass/Vol] 4.3 g/dL Normal [facility] Comment on above: Performed By: #### L AURELIANO DRIVER, CMP #### [facility] [address] [place] [address] Dr. Neisha Araiza Glucose [Mass/Vol] 368 mg/dL Critically high 74-106 [facility] Comment on above: Performed By: #### L AURELIANO DRIVER, CMP #### [facility] [address] [place] [address] Dr. Neisha Araiza Protein [Mass/Vol] 7.9 g/dL Normal 6.4-8.2 [facility] Comment on above: Performed By: #### L AURELIANO DRIVER, CMP #### [facility] [address] [place] [address] Dr. Neisha Araiza Sodium [Moles/Vol] 133 mmol/L Critically low 136-145 [facility] Comment on above: Performed By: #### L AURELIANO DRIVER, CMP #### [facility] [address] [place] [address] Dr. Neisha Araiza Urea nitrogen [Mass/Vol] 13.0 mg/dL Normal 7.0-18.0 [facility] Comment on above: Performed By: #### L AURELIANO DRIVER, CMP #### [facility] [address] [address] [address] Neisha Araiza Urea nitrogen/Creatinine [Mass ratio] 21.7 mg/mg Normal [facility] Comment on above: Performed By: #### L AURELIANO DRIVER, CMP #### [facility] [address] [place] [address] Dr. Neisha Araiza PROF CHEM 8 (BAS METB)on Anion gap [Moles/Vol] 20.2 mmol/L Normal [facility] Comment on above: Performed By: #### L AURELIANO DRIVER, CMP #### [facility] [address] [place] [address] Dr. Neisha Araiza Calcium [Mass/Vol] 8.0 mg/dL Critically low 8.5-10.1 [facility] Comment on above: Performed By: #### L AURELIANO DRIVER, CMP #### [facility] [address] [place] [address] Dr. Neisha Araiza Chloride [Moles/Vol] 102 mmol/L Normal 98-107 [facility] Comment on above: Performed By: #### L AURELIANO DRIVER, CMP #### [facility] [address] [place] [address] Dr. Neisha Araiza CO2 [Moles/Vol] 16.7 mmol/L Critically low 21.0-32.0 [facility] Comment on above: Performed By: #### L AURELIANO DRIVER, CMP #### [facility] [address] [place] [address] Dr. Neisha Araiza Creatinine [Mass/Vol] 0.62 mg/dL Normal 0.55-1.02 [facility] Comment on above: Performed By: #### L AURELIANO DRIVER, CMP #### [facility] [address] [place] [address] Dr. Neisha Araiza Glucose [Mass/Vol] 287 mg/dL Critically high 74-106 [facility] Comment on above: Performed By: #### L AURELIANO DRIVER, CMP #### [facility] [address] [place] [address] Dr. Neisha Araiza Sodium [Moles/Vol] 135 mmol/L Critically low 136-145 [facility] Comment on above: Performed By: #### L AURELIANO DRIVER, CMP #### [facility] [address] [place] [address] Dr. Neisha Araiza Urea nitrogen [Mass/Vol] 11.0 mg/dL Normal 7.0-18.0 [facility] Comment on above: Performed By: #### L AURELIANO DRIVER, CMP #### [facility] [address] [place] [address] Dr. Neisha Araiza Urea nitrogen/Creatinine [Mass ratio] 17.7 mg/mg Normal [facility] Comment on above: Performed By: #### L AURELIANO DRIVER, CMP #### [facility] [address] [place] [address] Dr. Neisha Araiza EGFR-AF EGYPTIAN >60 Normal >=60 [facility] Comment on above: Performed By: #### L AURELIANO DRIVER, CMP #### [facility] [address] [place] [address] Dr. Neisha Araiza EGFR-NON AF EGYPTIAN >60 Normal >=60 [facility] Comment on above: Performed By: #### L AURELIANO DRIVER, CMP #### [facility] [address] [place] [address] Dr. Neisha Araiza Potassium [Moles/Vol] 3.9 mmol/L Normal 3.5-5.1 [facility] Comment on above: Performed By: #### L AURELIANO DRIVER, CMP #### [facility] [address] [place] [address] Dr. Neisha Araiza CBC AUTO DIFFon 12-12-2021 BASO # 0.1 103/ul Normal 0.0-0.1 [facility] Comment on above: Performed By: #### C BC #### [facility] [address] [place] [address] Dr. Neisha Araiza Basophils/100 WBC (Bld) 0.6 % Normal 0.2-2.0 [facility] Comment on above: Performed By: #### C BC #### [facility] [address] [place] [address] Dr. Neisha Araiza EO # 0.0 103/ul Normal 0.0-0.7 [facility] Comment on above: Performed By: #### C BC #### [facility] [address] [place] [address] Dr. Neisah Araiza Eosinophils/100 WBC (Bld) 0.5 % Critically low 0.9-7.0 [facility] Comment on above: Performed By: #### C BC #### [facility] [address] [place] [address] Dr. Neisha Araiza Erythrocyte distribution width (RBC) [Ratio] 12.6 % Normal 11.0-15.0 [facility] Comment on above: Performed By: #### C BC #### [facility] [address] [place] [address] Dr. Neisha Araiza Hematocrit (Bld) [Volume fraction] 40.7 % Normal 36.0-48.0 [facility] Comment on above: Performed By: #### C BC #### [facility] [address] [place] [address] Dr. Neisha Araiza Hemoglobin (Bld) [Mass/Vol] 14.4 g/dL Normal 12.0-16.0 [facility] Comment on above: Performed By: #### C BC #### [facility] [address] [place] [address] Dr. Neisha Araiza IG # 0.05 10e3/ul Critically high 0.00-0.03 [facility] Comment on above: Performed By: #### C BC #### [facility] [address] [place] [address] Dr. Neisha Araiza IG % 0.6 % Critically high 0.0-0.5 [facility] Comment on above: Performed By: #### C BC #### [facility] [address] [place] [address] Dr. Neisha Araiza LYMPH # 2.3 103/ul Normal 1.2-3.8 [facility] Comment on above: Performed By: #### C BC #### [facility] [address] [place] [address] Dr. Neisha Araiza Lymphocytes/100 WBC (Bld) 26.2 % Normal 20.5-60.0 [facility] Comment on above: Performed By: #### C BC #### [facility] [address] [place] [address] Dr. Neisha Araiza MANUAL DIFF REQ NO Normal [facility] Comment on above: Performed By: #### C BC #### [facility] [address] [place] [address] Dr. Neisha Araiza MCH (RBC) [Entitic mass] 28.4 pg Normal 26.7-34.0 [facility] Comment on above: Performed By: #### C BC #### [facility] [address] [place] [address] Dr. Neisha Araiza MCHC (RBC) [Mass/Vol] 35.4 g/dL Critically high 29.9-35.2 [facility] Comment on above: Performed By: #### C BC #### [facility] [address] [place] [address] Dr. Neisha Araiza MCV (RBC) [Entitic vol] 80.3 fL Critically low 81.0-99.0 [facility] Comment on above: Performed By: #### C BC #### [facility] [address] [place] [address] Dr. Neisha Araiza MONO # 0.5 103/ul Normal 0.3-0.8 [facility] Comment on above: Performed By: #### C BC #### [facility] [address] [place] [address] Dr. Neisha Araiza Monocytes/100 WBC (Bld) 5.5 % Normal 1.7-12.0 [facility] Comment on above: Performed By: #### C BC #### [facility] [address] [place] [address] Dr. Neisha Araiza NEUT # 5.7 103/ul Normal 1.4-6.5 [facility] Comment on above: Performed By: #### C BC #### [facility] [address] [place] [address] Dr. Neisha Araiza Neutrophils/100 WBC (Bld) 66.6 % Normal 43.0-75.0 [facility] Comment on above: Performed By: #### C BC #### [facility] [address] [place] [address] Dr. Neisha Araiza Platelet mean volume (Bld) [Entitic vol] 9.5 fL Normal 9.5-13.5 [facility] Comment on above: Performed By: #### C BC #### [facility] [address] [place] [address] Dr. Neisha Araiza PLT 266 103/ul Normal 150-450 [facility] Comment on above: Performed By: #### C BC #### [facility] [address] [place] [address] Dr. Neisha Araiza RBC 5.07 106/ul Normal 4.20-5.40 [facility] Comment on above: Performed By: #### C BC #### [facility] Laboratory [address] [place] [address] Dr. Neisha Araiza WBC 8.6 103/ul Normal 4.0-11.0 [facility] Comment on above: Performed By: #### C BC #### [facility] [address] [place] [address] Dr. Neisha Araiza POINT OF CARE GLUCOSEon 11-30 Glucose [Mass/Vol] 157 mg/dL Critically high 74-106 [facility] Comment on above: Performed By: #### C BC #### [facility] [address] [place] [address] Dr. Neisha Araiza Glucose [Mass/Vol] 223 mg/dL Critically high 74-106 [facility] Comment on above: Performed By: #### L AURELIANO DRIVER, CMP #### [facility] [address] [place] [address] Dr. Neisha Araiza PROF 14(COMP METB)on 022 Albumin [Mass/Vol] 3.1 g/dL Critically low 3.4-5.0 [facility] Comment on above: Performed By: #### C BC #### [facility] [address] [place] [address] Dr. Neisha Araiza Albumin/Globulin [Mass ratio] 0.9 {ratio} Normal [facility] Comment on above: Performed By: #### C BC #### [facility] [address] [place] [address] Dr. Neisha Araiza ALP [Catalytic activity/Vol] 96 U/L Normal 46-116 [facility] Comment on above: Performed By: #### C BC #### [facility] [address] [place] [address] Dr. Neisha Araiza ALT [Catalytic activity/Vol] 28 U/L Normal 14-59 [facility] Comment on above: Performed By: #### C BC #### [facility] [address] [place] [address] Dr. Neisha Araiza Anion gap [Moles/Vol] 17.9 mmol/L Normal [facility] Comment on above: Performed By: #### C BC #### [facility] [address] [place] [address] Dr. Neisha Araiza AST [Catalytic activity/Vol] 19 U/L Normal 15-37 [facility] Comment on above: Performed By: #### C BC #### [facility] [address] [place] [address] Dr. Neisha Araiza Bilirubin [Mass/Vol] 1.0 mg/dL Normal 0.2-1.0 [facility] Comment on above: Performed By: #### C BC #### [facility] [address] [place] [address] Dr. Neisha Araiza Calcium [Mass/Vol] 8.1 mg/dL Critically low 8.5-10.1 [facility] Comment on above: Performed By: #### C BC #### [facility] [address] [place] [address] Dr. Neisha Araiza Chloride [Moles/Vol] 95 mmol/L Critically low 98-107 [facility] Comment on above: Performed By: #### C BC #### [facility] [address] [place] [address] Dr. Neisha Araiza CO2 [Moles/Vol] 19.2 mmol/L Critically low 21.0-32.0 [facility] Comment on above: Performed By: #### C BC #### [facility] [address] [place] [address] Dr. Neisha Araiza Creatinine [Mass/Vol] 0.51 mg/dL Critically low 0.55-1.02 [facility] Comment on above: Performed By: #### C BC #### [facility] [address] [address] [address] Neisha Araiza EGFR-AF EGYPTIAN >60 Normal >=60 [facility] Comment on above: Performed By: #### C BC #### [facility] [address] [address] [address] Neisha Araiza EGFR-NON AF EGYPTIAN >60 Normal >=60 [facility] Comment on above: Performed By: #### C BC #### [facility] [address] [address] [address] Neisha Araiza Globulin (S) [Mass/Vol] 3.6 g/dL Normal [facility] Comment on above: Performed By: #### C BC #### [facility] [address] [place] [address] Dr. Neisha Araiza Glucose [Mass/Vol] 230 mg/dL Critically high 74-106 [facility] Comment on above: Performed By: #### C BC #### [facility] [address] [address] [address] Neisha Araiza Potassium [Moles/Vol] 3.1 mmol/L Critically low 3.5-5.1 [facility] Comment on above: Performed By: #### C BC #### [facility] [address] [place] [address] Dr. Neisha Araiza Protein [Mass/Vol] 6.7 g/dL Normal 6.4-8.2 [facility] Comment on above: Performed By: #### C BC #### [facility] [address] [address] [address] Neisha Araiza Sodium [Moles/Vol] 129 mmol/L Critically low 136-145 [facility] Comment on above: Performed By: #### C BC #### [facility] [address] [address] [address] Neisha Araiza Urea nitrogen [Mass/Vol] 5.0 mg/dL Critically low 7.0-18.0 [facility] Comment on above: Performed By: #### C BC #### [facility] [address] [place] [address] Dr. Neisha Araiza Urea nitrogen/Creatinine [Mass ratio] 9.8 mg/mg Normal [facility] Comment on above: Performed By: #### C BC #### [facility] [address] [address] [address] Neisha Araiza CBC AUTO DIFFon 12-11-2021 BASO # 0.0 103/ul Normal 0.0-0.1 [facility] Comment on above: Performed By: #### C BC #### [facility] [address] [place] [address] Dr. Neisha Araiza Basophils/100 WBC (Bld) 0.5 % Normal 0.2-2.0 [facility] Comment on above: Performed By: #### C BC #### [facility] [address] [place] [address] Dr. Neisha Araiza EO # 0.0 103/ul Normal 0.0-0.7 [facility] Comment on above: Performed By: #### C BC #### [facility] [address] [place] [address] Dr. Neisha Araiza Eosinophils/100 WBC (Bld) 0.2 % Critically low 0.9-7.0 [facility] Comment on above: Performed By: #### C BC #### [facility] [address] [place] [address] Dr. Neisha Araiza Erythrocyte distribution width (RBC) [Ratio] 12.4 % Normal 11.0-15.0 [facility] Comment on above: Performed By: #### C BC #### [facility] [address] [place] [address] Dr. Neisha Araiza Hematocrit (Bld) [Volume fraction] 39.3 % Normal 36.0-48.0 [facility] Comment on above: Performed By: #### C BC #### [facility] [address] [place] [address] Dr. Neisha Araiza Hemoglobin (Bld) [Mass/Vol] 13.5 g/dL Normal 12.0-16.0 [facility] Comment on above: Performed By: #### C BC #### [facility] [address] [place] [address] Dr. Neisha Araiza IG # 0.04 10e3/ul Critically high 0.00-0.03 [facility] Comment on above: Performed By: #### C BC #### [facility] [address] [place] [address] Dr. Neisha Araiza IG % 0.5 % Normal 0.0-0.5 [facility] Comment on above: Performed By: #### C BC #### [facility] [address] [place] [address] Dr. Neisha Araiza LYMPH # 1.8 103/ul Normal 1.2-3.8 [facility] Comment on above: Performed By: #### C BC #### [facility] [address] [place] [address] Dr. Neisha Araiza Lymphocytes/100 WBC (Bld) 21.7 % Normal 20.5-60.0 [facility] Comment on above: Performed By: #### C BC #### [facility] [address] [place] [address] Dr. Neisha Araiza MANUAL DIFF REQ NO Normal [facility] Comment on above: Performed By: #### C BC #### [facility] [address] [place] [address] Dr. Neisha Araiza MCH (RBC) [Entitic mass] 28.2 pg Normal 26.7-34.0 [facility] Comment on above: Performed By: #### C BC #### [facility] [address] [place] [address] Dr. Neisha Araiza MCHC (RBC) [Mass/Vol] 34.4 g/dL Normal 29.9-35.2 [facility] Comment on above: Performed By: #### C BC #### [facility] [address] [place] [address] Dr. Neisha Araiza MCV (RBC) [Entitic vol] 82.2 fL Normal 81.0-99.0 [facility] Comment on above: Performed By: #### C BC #### [facility] [address] [place] [address] Dr. Neisha Araiza MONO # 0.5 103/ul Normal 0.3-0.8 [facility] Comment on above: Performed By: #### C BC #### [facility] [address] [place] [address] Dr. Neisha Araiza Monocytes/100 WBC (Bld) 6.4 % Normal 1.7-12.0 [facility] Comment on above: Performed By: #### C BC #### [facility] [address] [place] [address] Dr. Neisha Araiza NEUT # 5.7 103/ul Normal 1.4-6.5 [facility] Comment on above: Performed By: #### C BC #### [facility] [address] [place] [address] Dr. Neisha Araiza Neutrophils/100 WBC (Bld) 70.7 % Normal 43.0-75.0 [facility] Comment on above: Performed By: #### C BC #### [facility] [address] [place] [address] Dr. Neisha Araiza Platelet mean volume (Bld) [Entitic vol] 9.4 fL Critically low 9.5-13.5 [facility] Comment on above: Performed By: #### C BC #### [facility] [address] [place] [address] Dr. Neisha Araiza PLT 250 103/ul Normal 150-450 [facility] Comment on above: Performed By: #### C BC #### [facility] [address] [place] [address] Dr. Neisha Araiza RBC 4.78 106/ul Normal 4.20-5.40 [facility] Comment on above: Performed By: #### C BC #### [facility] [address] [place] [address] Dr. Neisha Araiza WBC 8.1 103/ul Normal 4.0-11.0 [facility] Comment on above: Performed By: #### C BC #### [facility] [address] [place] [address] Dr. Neisha Araiza POINT OF CARE GLUCOSEon 11-30 Glucose [Mass/Vol] 232 mg/dL Critically high [facility]106 [facility] Comment on above: Performed By: #### L AURELIANO DRIVER, CMP #### [facility] [address] [address] [address] Neisha Araiza Glucose [Mass/Vol] 197 mg/dL Critically high -106 [facility] Comment on above: Performed By: #### L AURELIANO DRIVER, CMP #### [facility] [address] [address] [address] Neisha Araiza Glucose [Mass/Vol] 289 mg/dL Critically high [address] [place] [address] Comment on above: Performed By: #### C BC #### [facility] [address] [place] [address] Dr. Neisha Araiza Glucose [Mass/Vol] 200 mg/dL Critically high [address] [place] [address] Comment on above: Performed By: #### A CETON #### [facility] [address] [address] [address] Neisha Araiza PROF 14(COMP METB)on 022 Albumin [Mass/Vol] 2.9 g/dL Critically low 3.4-5.0 [facility] Comment on above: Performed By: #### L AURELIANO DRIVER, CMP #### [facility] [address] [address] [address] Neisha Araiza Albumin/Globulin [Mass ratio] 0.8 {ratio} Normal [facility] Comment on above: Performed By: #### L AURELIANO DRIVER, CMP #### [facility] [address] [address] [address] Neisha Araiza ALP [Catalytic activity/Vol] 90 U/L Normal 46-116 [facility] Comment on above: Performed By: #### L AURELIANO DRIVER, CMP #### [facility] [address] [address] [address] Neisha Araiza ALT [Catalytic activity/Vol] 26 U/L Normal 14-59 [facility] Comment on above: Performed By: #### L IPA, AURELIANO, CMP #### [facility] [address] [address] [address] Neisha Araiza Anion gap [Moles/Vol] 17.6 mmol/L Normal [facility] Comment on above: Performed By: #### L IPA AURELIANO, CMP #### [facility] [address] [address] [address] Neisha Araiza AST [Catalytic activity/Vol] 19 U/L Normal 15-37 [facility] Comment on above: Performed By: #### L IPA AURELIANO, CMP #### [facility] [address] [address] [address] Neisha Araiza Bilirubin [Mass/Vol] 0.8 mg/dL Normal 0.2-1.0 [facility] Comment on above: Performed By: #### L NEISHA AURELIANO, CMP #### [facility] [address] [address] [address] Neisha Araiza Calcium [Mass/Vol] 7.9 mg/dL Critically low 8.5-10.1 [facility] Comment on above: Performed By: #### L AURELIANO DRIVER, CMP #### [facility] [address] [address] [address] Neisha Araiza Chloride [Moles/Vol] 98 mmol/L Normal 98-107 [facility] Comment on above: Performed By: #### L AURELIANO DRIVER, CMP #### [facility] [address] [address] [address] Neisha Araiza CO2 [Moles/Vol] 18.6 mmol/L Critically low 21.0-32.0 [facility] Comment on above: Performed By: #### L AURELIANO DRIVER, CMP #### [facility] [address] [address] [address] Neisha Araiza Creatinine [Mass/Vol] 0.50 mg/dL Critically low 0.55-1.02 [facility] Comment on above: Performed By: #### L NEISHA AURELIANO, CMP #### [facility] [address] [address] [address] Neisha Araiza EGFR-AF EGYPTIAN >60 Normal >=60 [facility] Comment on above: Performed By: #### L IPA AURELIANO, CMP #### [facility] [address] [place] [address] Dr. Neisha Araiza EGFR-NON AF EGYPTIAN >60 Normal >=60 [facility] Comment on above: Performed By: #### L IPA AURELIANO, CMP #### [facility] [address] [place] [address] Dr. Neisha Araiza Globulin (S) [Mass/Vol] 3.5 g/dL Normal [facility] Comment on above: Performed By: #### L IPA AURELIANO, CMP #### [facility] [address] [place] [address] Dr. Neisha Araiza Glucose [Mass/Vol] 195 mg/dL Critically high 74-106 [facility] Comment on above: Performed By: #### L IPA AURELIANO, CMP #### [facility] [address] [place] [address] Dr. Neisha Araiza Potassium [Moles/Vol] 3.2 mmol/L Critically low 3.5-5.1 [facility] Comment on above: Performed By: #### L AURELIANO DRIVER, CMP #### [facility] [address] [place] [address] Dr. Neisha Araiza Protein [Mass/Vol] 6.4 g/dL Normal 6.4-8.2 [facility] Comment on above: Performed By: #### L IPA AURELIANO, CMP #### [facility] [address] [place] [address] Dr. Neisha Araiza Sodium [Moles/Vol] 131 mmol/L Critically low 136-145 [facility] Comment on above: Performed By: #### L IPA AURELIANO, CMP #### [facility] [address] [place] [address] Dr. Neisha Araiza Urea nitrogen [Mass/Vol] 7.0 mg/dL Normal 7.0-18.0 [facility] Comment on above: Performed By: #### L IPA AURELIANO, CMP #### [facility] [address] [place] [address] Dr. Neisha Araiza Urea nitrogen/Creatinine [Mass ratio] 14.0 mg/mg Normal [facility] Comment on above: Performed By: #### L AURELIANO DRIVER, CMP #### [facility] [address] [place] [address] Dr. Niesha Araiza ACETONE SERUMon 12-10-2021 ACETONE SMALL Abnormal NEGATIVE [facility] Comment on above: Performed By: #### L AURELIANO DRIVER, CMP #### [facility] [address] [place] [address] Dr. Neisha Araiza AMYLASEon 12-10-2021 Amylase [Catalytic activity/Vol] 31 U/L Normal 25-115 [facility] Comment on above: Performed By: #### L AURELIANO DRIVER, CMP #### [facility] [address] [place] [address] Dr. Neisha Araiza CBC AUTO DIFFon 12-10-2021 BASO # 0.0 103/ul Normal 0.0-0.1 [facility] Comment on above: Performed By: #### C BC #### [facility] [address] [place] [address] Dr. Neisha Araiza Basophils/100 WBC (Bld) 0.5 % Normal 0.2-2.0 [facility] Comment on above: Performed By: #### C BC #### [facility] [address] [place] [address] Dr. Neisha Araiza EO # 0.0 103/ul Normal 0.0-0.7 [facility] Comment on above: Performed By: #### C BC #### [facility] [address] [place] [address] Dr. Neisha Araiza Eosinophils/100 WBC (Bld) 0.0 % Critically low 0.9-7.0 [facility] Comment on above: Performed By: #### C BC #### [facility] [address] [place] [address] Dr. Neisha Araiza Erythrocyte distribution width (RBC) [Ratio] 12.5 % Normal 11.0-15.0 [facility] Comment on above: Performed By: #### C BC #### [facility] [address] [place] [address] Dr. Neisha Araiza Hematocrit (Bld) [Volume fraction] 43.3 % Normal 36.0-48.0 [facility] Comment on above: Performed By: #### C BC #### [facility] [address] [place] [address] Dr. Neisha Araiza Hemoglobin (Bld) [Mass/Vol] 15.3 g/dL Normal 12.0-16.0 [facility] Comment on above: Performed By: #### C BC #### [facility] [address] [place] [address] Dr. Neisha Araiza IG # 0.06 10e3/ul Critically high 0.00-0.03 [facility] Comment on above: Performed By: #### C BC #### [facility] [address] [place] [address] Dr. Neisha Araiza IG % 0.7 % Critically high 0.0-0.5 [facility] Comment on above: Performed By: #### C BC #### [facility] [address] [place] [address] Dr. Neisha Araiza LYMPH # 0.9 103/ul Critically low 1.2-3.8 [facility] Comment on above: Performed By: #### C BC #### [facility] [address] [place] [address] Dr. Neisha Araiza Lymphocytes/100 WBC (Bld) 10.8 % Critically low 20.5-60.0 [facility] Comment on above: Performed By: #### C BC #### [facility] [address] [place] [address] Dr. Neisha Araiza MANUAL DIFF REQ NO Normal [facility] Comment on above: Performed By: #### C BC #### [facility] [address] [place] [address] Dr. Neisha Araiza MCH (RBC) [Entitic mass] 28.4 pg Normal 26.7-34.0 [facility] Comment on above: Performed By: #### C BC #### [facility] [address] [place] [address] Dr. Neisha Araiza MCHC (RBC) [Mass/Vol] 35.3 g/dL Critically high 29.9-35.2 [facility] Comment on above: Performed By: #### C BC #### [facility] [address] [address] [address] Neisha Araiza MCV (RBC) [Entitic vol] 80.3 fL Critically low 81.0-99.0 [facility] Comment on above: Performed By: #### C BC #### [facility] [address] [address] [address] Neisha Araiza MONO # 0.5 103/ul Normal 0.3-0.8 [facility] Comment on above: Performed By: #### C BC #### [facility] [address] [place] [address] Dr. Neisha Araiza Monocytes/100 WBC (Bld) 5.7 % Normal 1.7-12.0 [facility] Comment on above: Performed By: #### C BC #### [facility] [address] [place] [address] Dr. Neisha Araiza NEUT # 7.0 103/ul Critically high 1.4-6.5 [facility] Comment on above: Performed By: #### C BC #### [facility] [address] [place] [address] Dr. Neisha Araiza Neutrophils/100 WBC (Bld) 82.3 % Critically high 43.0-75.0 [facility] Comment on above: Performed By: #### C BC #### [facility] [address] [place] [address] Dr. Neisha Araiza Platelet mean volume (Bld) [Entitic vol] 9.4 fL Critically low 9.5-13.5 [facility] Comment on above: Performed By: #### C BC #### [facility] [address] [place] [address] Dr. Neisha Araiza PLT 271 103/ul Normal 150-450 [facility] Comment on above: Performed By: #### C BC #### [facility] [address] [place] [address] Dr. Neisha Araiza RBC 5.39 106/ul Normal 4.20-5.40 [facility] Comment on above: Performed By: #### C BC #### [facility] [address] [place] [address] Dr. Neisha Araiza WBC 8.5 103/ul Normal 4.0-11.0 [facility] Comment on above: Performed By: #### C BC #### [facility] [address] [place] [address] ABD/PELVIS WO CONon [...] A CETON #### [facility] [address] [place] [address] Dr. Neisha Araiza Covid-19 PCR ([facility])on 11-30 SARS-CoV-2 (COVID-19) RNA TIM+probe Ql (Unsp [...] for this test is supported by the [place] of [employer] Service's declaration that [...] used). Performed By: #### L AURELIANO DRIVER, CMP #### [facility] [address] [place] [address] Dr. Neisha Araiza DRUG SCREEN RAPID (URINE)on 12-10-2021 AMP Negative Normal NEGATIVE [facility] Comment on above: Performed By: #### A CETON #### [facility] [address] [place] [address] Dr. Neisha Araiza BAR Negative Normal NEGATIVE [facility] Comment on above: Performed By: #### A CETON #### [facility] [address] [place] [address] Dr. Neisha Araiza BUP Negative Normal NEGATIVE [facility] Comment on above: Performed By: #### A CETON #### [facility] [address] [place] [address] Dr. Neisha Araiza BZO Negative Normal NEGATIVE [facility] Comment on above: Performed By: #### A CETON #### [facility] [address] [place] [address] Dr. Neisha Araiza VIVEK Negative Normal NEGATIVE [facility] Comment on above: Performed By: #### A CETON #### [facility] [address] [place] [address] Dr. Neisha Araiza CUT-OFFS SEE BELOW Normal [facility] Comment on above: Result Comment: AMP [...] A CETON #### [facility] [address] [place] [address] Dr. Neisha Araiza DRUG CUT HEADER DRUG CLASS TEST SYSTEM CUT-OFF CONCENTRATIONS ARE FOLLOWS: Normal [facility] Comment on above: Performed By: #### A CETON #### [facility] [address] [place] [address] Dr. Neisha Araiza mAMP Negative Normal NEGATIVE [facility] Comment on above: Performed By: #### A CETON #### [facility] [address] [place] [address] Dr. Neisha Araiza MTD Negative Normal NEGATIVE [facility] Comment on above: Performed By: #### A CETON #### [facility] [address] [place] [address] Dr. Neisha Araiza OPI Negative Normal NEGATIVE [facility] Comment on above: Performed By: #### A CETON #### [facility] [address] [place] [address] Dr. Neisha Araiza OXY Negative Normal NEGATIVE [facility] Comment on above: Performed By: #### A CETON #### [facility] [address] [place] [address] Dr. Neisha Araiza PCP Negative Normal NEGATIVE [facility] Comment on above: Performed By: #### A CETON #### [facility] [address] [place] [address] Dr. Neisha Araiza PPX Negative Normal NEGATIVE [facility] Comment on above: Performed By: #### A CETON #### [facility] [address] [place] [address] Dr. Neisha Araiza TCA Negative Normal NEGATIVE [facility] Comment on above: Performed By: #### A CETON #### [facility] [address] [place] [address] Dr. Neisha Araiza THC Negative Normal NEGATIVE [facility] Comment on above: Performed By: #### A CETON #### [facility] [address] [place] [address] Dr. Neisha Araiza ER URINE PROFILEon 2 Bilirubin Ql (U) Negative Normal NEGATIVE [facility] Comment on above: Performed By: #### E RUR, DRUGRPD #### [facility] [address] [place] [address] Dr. Neisha Araiza Clarity (U) CLEAR Normal CLEAR [facility] Comment on above: Performed By: #### E RUR, DRUGRPD #### [facility] [address] [place] [address] Dr. Neisha Araiza Color (U) YELLOW Normal YELLOW [facility] Comment on above: Performed By: #### E RUR, DRUGRPD #### [facility] [address] [place] [address] Dr. Neisha Araiza ERUAHMagnus A micrscopic examination will be performed if indicated. Normal [facility] Comment on above: Performed By: #### E RUR, DRUGRPD #### [facility] [address] [place] [address] Dr. Neisha Araiza Glucose Ql (U) 250 mg/dl Abnormal NEGATIVE [facility] Comment on above: Performed By: #### E RUR, DRUGRPD #### [facility] [address] [place] [address] Dr. Neisha Araiza Hemoglobin Ql (U) Negative Normal NEGATIVE [facility] Comment on above: Performed By: #### E RUR, DRUGRPD #### [facility] [address] [place] [address] Dr. Neisha Araiza Ketones Ql (U) 15 mg/dl Abnormal NEGATIVE [facility] Comment on above: Performed By: #### E RUR, DRUGRPD #### [facility] [address] [place] [address] Dr. Neisha Araiza LEUKOCYTES Negative Normal NEGATIVE [facility] Comment on above: Performed By: #### E RUR, DRUGRPD #### [facility] [address] [place] [address] Dr. Neisha Araiza Nitrite Ql (U) Negative Normal NEGATIVE [facility] Comment on above: Performed By: #### E RUR, DRUGRPD #### [facility] [address] [place] [address] Dr. Neisha Araiza pH (U) 6.0 [pH] Normal 5-9 [facility] Comment on above: Performed By: #### E RUR, DRUGRPD #### [facility] [address] [place] [address] Dr. Neisha Araiza SPEC GRAVITY 1.020 Normal 1.005-<=1.025 [facility] Comment on above: Performed By: #### E RUR, DRUGRPD #### [facility] [address] [place] [address] Dr. Neisha Araiza UA PROTEIN Negative Normal NEGATIVE/ TRACE [facility] Comment on above: Performed By: #### E RUR, DRUGRPD #### [facility] [address] [place] [address] Dr. Neisha Araiza UR MICRO IND NOT INDICATED Normal [facility] Comment on above: Performed By: #### E RUR, DRUGRPD #### [facility] [address] [place] [address] Dr. Neisha Araiza Urobilinogen Qn (U) 0.2 {Ankit'U}/dL Normal 0.2 - 1. 0 [facility] Comment on above: Performed By: #### E RUR, DRUGRPD #### [facility] [address] [place] [address] Dr. Neisha Araiza H PYLORI ANTIBODY IGGon 11-30 H. PYLORI IGG ABS 0.29 Index Value Normal 0.00-0.79 [facility] Comment on above: Result Comment: Nega tive <0.80 Equivocal 0.80 - 0.89 Positive >0.89 Performed By: #### C BC #### [facility] [address] [place] [address] Dr. Neisha Araiza INFLUENZA A AND B AGon 12-10 INFLUANEGH SEE BELOW Normal [facility] Comment on above: Result Comment: Nega tive for Flu A protein angiten. Infection due to Flu A cannot be ruled out. Flu A angiten in the sample may be below the detection limit of the test. Performed By: #### C BC #### [facility] [address] [place] [address] Dr. Neisha Araiza INFLUBNEGH SEE BELOW Normal [facility] Comment on above: Result Comment: Nega tive for Flu B protein antigen. Infection due to Flu B cannot be ruled out. Flu B antigen in the sample may be below the detection limit of the test. Performed By: #### C BC #### [facility] [address] [place] [address] Dr. Neisha Araiza INFLUENZA A AG Negative Normal NEGATIVE SEE COMMENT [facility] Comment on above: Performed By: #### C BC #### [facility] [address] [place] [address] Dr. Neisha Araiza INFLUENZA B AG Negative Normal NEGATIVE SEE COMMENT [facility] Comment on above: Performed By: #### C BC #### [facility] [address] [place] [address] Dr. Neisha Araiza INTERNAL CONTROLS Within Normal Limits Normal Wi thin Normal Limits [facility] Comment on above: Performed By: #### C BC #### [facility] [address] [place] [address] Dr. Neisha Araiza LACTATE/LACTIC ACIDon 2021 Lactate [Moles/Vol] 0.9 mmol/L Normal 0.4-1.9 [facility] Comment on above: Performed By: #### C BC #### [facility] [address] [place] [address] Dr. Neisha Araiza Lactate [Moles/Vol] 0.8 mmol/L Normal 0.4-1.9 [facility] Comment on above: Performed By: #### C BC #### [facility] [address] [place] [address] Dr. Neisha Araiza LIPASEon 12-10-2021 Lipase [Catalytic activity/Vol] 146.0 U/L Normal 73.0-393.0 [facility] Comment on above: Performed By: #### L AURELIANO DRIVER, CMP #### [facility] [address] [place] [address] Dr. Neisha Araiza POINT OF CARE GLUCOSEon 11-30 Glucose [Mass/Vol] 222 mg/dL Critically high 74-106 [facility] Comment on above: Performed By: #### C BC #### [facility] [address] [place] [address] Dr. Neisha Araiza PREG HCG QUALon 12-10-2021 , QUAL Negative Normal NEGATIVE [facility] Comment on above: Performed By: #### L AURELIANO DRIVER, CMP #### [facility] [address] [place] [address] Dr. Neisha Araiza PROF 14(COMP METB)on 022 Albumin [Mass/Vol] 3.7 g/dL Normal 3.4-5.0 [facility] Comment on above: Performed By: #### L AURELIANO DRIVER, CMP #### [facility] [address] [place] [address] Dr. Neisha Araiza Albumin/Globulin [Mass ratio] 0.9 {ratio} Normal [facility] Comment on above: Performed By: #### L AURELIANO DRIVER, CMP #### [facility] [address] [place] [address] Dr. Neisha Araiza ALP [Catalytic activity/Vol] 118 U/L Critically high 46-116 [facility] Comment on above: Performed By: #### L IPA, AURELIANO, CMP #### [facility] [address] [address] [address] Neisha Araiza ALT [Catalytic activity/Vol] 36 U/L Normal 14-59 [facility] Comment on above: Performed By: #### L IPA, AURELIANO, CMP #### [facility] [address] [address] [address] Neisha Araiza Anion gap [Moles/Vol] 17.8 mmol/L Normal [facility] Comment on above: Performed By: #### L IPA, AURELIANO, CMP #### [facility] [address] [address] [address] Neisha Araiza AST [Catalytic activity/Vol] 22 U/L Normal 15-37 [facility] Comment on above: Performed By: #### L IPA AURELIANO, CMP #### [facility] [address] [address] [address] Neisha Araiza Bilirubin [Mass/Vol] 0.9 mg/dL Normal 0.2-1.0 [facility] Comment on above: Performed By: #### L IPA AURELIANO, CMP #### [facility] [address] [address] [address] Neisha Araiza Calcium [Mass/Vol] 8.8 mg/dL Normal 8.5-10.1 [facility] Comment on above: Performed By: #### L NEISHA AURELIANO, CMP #### [facility] [address] [address] [address] Neisha Araiza Chloride [Moles/Vol] 99 mmol/L Normal 98-107 [facility] Comment on above: Performed By: #### L IPA AURELIANO, CMP #### [facility] [address] [address] [address] Neisha Araiza CO2 [Moles/Vol] 19.6 mmol/L Critically low 21.0-32.0 [facility] Comment on above: Performed By: #### L IPA AURELIANO, CMP #### [facility] [address] [address] [address] Neisha Araiza Creatinine [Mass/Vol] 0.52 mg/dL Critically low 0.55-1.02 [facility] Comment on above: Performed By: #### L IPA AURELIANO, CMP #### [facility] [address] [place] [address] Dr. Neisha Araiza EGFR-AF EGYPTIAN >60 Normal >=60 [facility] Comment on above: Performed By: #### L IPA AURELIANO, CMP #### [facility] [address] [address] [address] Neisha Araiza EGFR-NON AF EGYPTIAN >60 Normal >=60 [facility] Comment on above: Performed By: #### L IPA AURELIANO, CMP #### [facility] [address] [address] [address] Neisha Araiza Globulin (S) [Mass/Vol] 4.2 g/dL Normal [facility] Comment on above: Performed By: #### L NEISHA AURELIANO, CMP #### [facility] [address] [place] [address] Dr. Neisha Araiza Glucose [Mass/Vol] 172 mg/dL Critically high 74-106 [facility] Comment on above: Performed By: #### L AURELIANO DRIVER, CMP #### [facility] [address] [place] [address] Dr. Neisha Araiza Potassium [Moles/Vol] 3.4 mmol/L Critically low 3.5-5.1 [facility] Comment on above: Performed By: #### L NEISHA AURELIANO, CMP #### [facility] [address] [place] [address] Dr. Neisha Araiza Protein [Mass/Vol] 7.9 g/dL Normal 6.4-8.2 [facility] Comment on above: Performed By: #### L NEISHA AURELIANO, CMP #### [facility] [address] [place] [address] Dr. Neisha Araiaz Sodium [Moles/Vol] 133 mmol/L Critically low 136-145 [facility] Comment on above: Performed By: #### L IPA AURELIANO, CMP #### [facility] [address] [place] [address] Dr. Neisha Araiza Urea nitrogen [Mass/Vol] 11.0 mg/dL Normal 7.0-18.0 [facility] Comment on above: Performed By: #### L AURELIANO DRIVER, CMP #### [facility] [address] [place] [address] Dr. Neisha Araiza Urea nitrogen/Creatinine [Mass ratio] 21.2 mg/mg Normal [facility] Comment on above: Performed By: #### L AURELIANO DRIVER, CMP #### [facility] [address] [place] [address] Dr. Neisha Araiza TSHon 12-10-2021 TSH 0.594 uIU/mL Normal 0.358-3.740 [facility] Comment on above: Performed By: #### L AURELIANO DRIVER, CMP #### [facility] [address] [place] [address] Dr. Neisha Araiza TSH RANGE SEE BELOW Normal [facility] Comment on above: Result Comment: <0.3 4 UIU/ml HYPERTHYROID 0.34-5.60 UIU/ml EUTHYROID >5.60 UIU/ml HYPOTHYROID Performed By: #### L AURELIANO DRIVER, CMP #### [facility] [address] [place] [address] Dr. Neisha Araiza CBC AUTO DIFFon 12-09-2021 BASO # 0.0 103/ul Normal 0.0-0.1 [facility] Comment on above: Performed By: #### L AURELIANO DRIVER, CMP #### [facility] [address] [place] [address] Dr. Neisha Araiza Basophils/100 WBC (Bld) 0.4 % Normal 0.2-2.0 [facility] Comment on above: Performed By: #### L IPA AURELIANO, CMP #### [facility] [address] [place] [address] Dr. Neisha Araiza EO # 0.0 103/ul Normal 0.0-0.7 [facility] Comment on above: Performed By: #### L IPA AURELIANO, CMP #### [facility] [address] [place] [address] Dr. Neisha Araiza Eosinophils/100 WBC (Bld) 0.1 % Critically low 0.9-7.0 [facility] Comment on above: Performed By: #### L AURELIANO DRIVER, CMP #### [facility] [address] [place] [address] Dr. Neisha Araiza Erythrocyte distribution width (RBC) [Ratio] 12.8 % Normal 11.0-15.0 [facility] Comment on above: Performed By: #### L AURELIANO DRIVER, CMP #### [facility] [address] [place] [address] Dr. Neisha Araiza Hematocrit (Bld) [Volume fraction] 41.1 % Normal 36.0-48.0 [facility] Comment on above: Performed By: #### L AURELIANO DRIVER, CMP #### [facility] [address] [place] [address] Dr. Neisha Araiza Hemoglobin (Bld) [Mass/Vol] 13.8 g/dL Normal 12.0-16.0 [facility] Comment on above: Performed By: #### L AURELIANO DRIVER, CMP #### [facility] [address] [place] [address] Dr. Neisha Araiza IG # 0.05 10e3/ul Critically high 0.00-0.03 [facility] Comment on above: Performed By: #### L AURELIANO DRIVER, CMP #### [facility] [address] [place] [address] Dr. Neisha Araiza IG % 0.5 % Normal 0.0-0.5 [facility] Comment on above: Performed By: #### L AURELIANO DRIVER, CMP #### [facility] [address] [place] [address] Dr. Neisha Araiza LYMPH # 2.1 103/ul Normal 1.2-3.8 [facility] Comment on above: Performed By: #### L AURELIANO DRIVER, CMP #### [facility] [address] [place] [address] Dr. Neisha Araiza Lymphocytes/100 WBC (Bld) 22.8 % Normal 20.5-60.0 [facility] Comment on above: Performed By: #### L AURELIANO DRIVER, CMP #### [facility] [address] [place] [address] Dr. Neisha Araiza MANUAL DIFF REQ NO Normal [facility] Comment on above: Performed By: #### L IPA AURELIANO, CMP #### [facility] [address] [place] [address] Dr. Neisha Araiza MCH (RBC) [Entitic mass] 28.3 pg Normal 26.7-34.0 [facility] Comment on above: Performed By: #### L NEISHA AURELIANO, CMP #### [facility] [address] [place] [address] Dr. Neisha Araiza MCHC (RBC) [Mass/Vol] 33.6 g/dL Normal 29.9-35.2 [facility] Comment on above: Performed By: #### L NEISHA AURELIANO, CMP #### [facility] [address] [place] [address] Dr. Neisha Araiza MCV (RBC) [Entitic vol] 84.4 fL Normal 81.0-99.0 [facility] Comment on above: Performed By: #### L NEISHA AURELIANO, CMP #### [facility] [address] [place] [address] Dr. Neisha Araiza MONO # 0.6 103/ul Normal 0.3-0.8 [facility] Comment on above: Performed By: #### L NEISHA AURELIANO, CMP #### [facility] [address] [place] [address] Dr. Neisha Araiza Monocytes/100 WBC (Bld) 6.0 % Normal 1.7-12.0 [facility] Comment on above: Performed By: #### L IPA AURELIANO, CMP #### [facility] [address] [place] [address] Dr. Neisha Araiza NEUT # 6.4 103/ul Normal 1.4-6.5 [facility] Comment on above: Performed By: #### L IPA, AURELIANO, CMP #### [facility] [address] [place] [address] Dr. Neisha Araiza Neutrophils/100 WBC (Bld) 70.2 % Normal 43.0-75.0 [facility] Comment on above: Performed By: #### L AURELIANO DRIVER, CMP #### [facility] [address] [address] [address] Neisha Araiza Platelet mean volume (Bld) [Entitic vol] 9.8 fL Normal 9.5-13.5 [facility] Comment on above: Performed By: #### L IPA AURELIANO, CMP #### [facility] [address] [address] [address] Neisha Araiza PLT 258 103/ul Normal 150-450 [facility] Comment on above: Performed By: #### L IPA AURELIANO, CMP #### [facility] [address] [address] [address] Neisha Araiza RBC 4.87 106/ul Normal 4.20-5.40 [facility] Comment on above: Performed By: #### L NEISHA AURELIANO, CMP #### [facility] [address] [address] [address] Neisha Araiza WBC 9.1 103/ul Normal 4.0-11.0 [facility] Comment on above: Performed By: #### L AURELIANO DRIVER, CMP #### [facility] [address] [address] [address] Neisha Arazia POINT OF CARE GLUCOSEon 11-30 Glucose [Mass/Vol] 222 mg/dL Critically high 74-106 [facility] Comment on above: Performed By: #### C BC #### [facility] [address] [address] [address] Neisha Araiza Glucose [Mass/Vol] 225 mg/dL Critically high 74-106 [facility] Comment on above: Performed By: #### C BC #### [facility] [address] [address] [address] Neisha Araiza PROF 14(COMP METB)on 022 Albumin [Mass/Vol] 3.1 g/dL Critically low 3.4-5.0 [facility] Comment on above: Performed By: #### C BC #### [facility] [address] [place] [address] Dr. Neisha Araiza Albumin/Globulin [Mass ratio] 0.9 {ratio} Normal [facility] Comment on above: Performed By: #### C BC #### [facility] [address] [place] [address] Dr. Neisha Araiza ALP [Catalytic activity/Vol] 99 U/L Normal 46-116 [facility] Comment on above: Performed By: #### C BC #### [facility] [address] [place] [address] Dr. Neisha Araiza ALT [Catalytic activity/Vol] 28 U/L Normal 14-59 [facility] Comment on above: Performed By: #### C BC #### [facility] [address] [place] [address] Dr. Neisha Araiza Anion gap [Moles/Vol] 15.0 mmol/L Normal [facility] Comment on above: Performed By: #### C BC #### [facility] [address] [place] [address] Dr. Neisha Araiza AST [Catalytic activity/Vol] 12 U/L Critically low 15-37 [facility] Comment on above: Performed By: #### C BC #### [facility] [address] [place] [address] Dr. Neisha Araiza Bilirubin [Mass/Vol] 1.3 mg/dL Critically high 0.2-1.0 [facility] Comment on above: Performed By: #### C BC #### [facility] [address] [place] [address] Dr. Neisha Araiza Calcium [Mass/Vol] 7.5 mg/dL Critically low 8.5-10.1 [facility] Comment on above: Performed By: #### C BC #### [facility] [address] [place] [address] Dr. Neisha Araiza Chloride [Moles/Vol] 101 mmol/L Normal 98-107 [facility] Comment on above: Performed By: #### C BC #### [facility] [address] [place] [address] Dr. Neisha Araiza CO2 [Moles/Vol] 14.9 mmol/L Critically low 21.0-32.0 [facility] Comment on above: Performed By: #### C BC #### [facility] [address] [address] [address] Neisha Araiza Creatinine [Mass/Vol] 0.52 mg/dL Critically low 0.55-1.02 [facility] Comment on above: Performed By: #### C BC #### [facility] [address] [address] [address] Neisha Araiza EGFR-AF EGYPTIAN >60 Normal >=60 [facility] Comment on above: Performed By: #### C BC #### [facility] [address] [address] [address] Neisha Araiza EGFR-NON AF EGYPTIAN >60 Normal >=60 [facility] Comment on above: Performed By: #### C BC #### [facility] [address] [place] [address] Dr. Neisha Araiza Globulin (S) [Mass/Vol] 3.6 g/dL Normal [facility] Comment on above: Performed By: #### C BC #### [facility] [address] [place] [address] Dr. Neisha Araiza Glucose [Mass/Vol] 232 mg/dL Critically high 74-106 [facility] Comment on above: Performed By: #### C BC #### [facility] [address] [place] [address] Dr. Neisha Araiza Potassium [Moles/Vol] 3.9 mmol/L Normal 3.5-5.1 [facility] Comment on above: Performed By: #### C BC #### [facility] [address] [place] [address] Dr. Neisha Araiza Protein [Mass/Vol] 6.7 g/dL Normal 6.4-8.2 [facility] Comment on above: Performed By: #### C BC #### [facility] [address] [address] [address] Neisha Araiza Sodium [Moles/Vol] 127 mmol/L Critically low 136-145 [facility] Comment on above: Performed By: #### C BC #### [facility] [address] [address] [address] Neisha Araiza Urea nitrogen [Mass/Vol] 9.0 mg/dL Normal 7.0-18.0 [facility] Comment on above: Performed By: #### C BC #### [facility] [address] [place] [address] Dr. Neisha Araiza Urea nitrogen/Creatinine [Mass ratio] 17.3 mg/mg Normal [facility] Comment on above: Performed By: #### C BC #### [facility] [address] [place] [address] Dr. Neisha Araiza UA RANDOM W/MICROSCOPICon BACTERIA NONE SEEN Normal NONE SEEN [facility] Comment on above: Performed By: #### U AMIC #### [facility] [address] [place] [address] Dr. Neisha Araiza Bilirubin Ql (U) Negative Normal NEGATIVE [facility] Comment on above: Performed By: #### U AMIC #### [facility] [address] [place] [address] Dr. Neisha Araiza CAST NONE SEEN Normal NONE SEEN [facility] Comment on above: Performed By: #### U AMIC #### [facility] [address] [place] [address] Dr. Neisha Araiza Clarity (U) CLEAR Normal CLEAR [facility] Comment on above: Performed By: #### U AMIC #### [facility] [address] [place] [address] Dr. Neisha Araiza Color (U) LT. YELLOW Normal YELLOW [facility] Comment on above: Performed By: #### U AMIC #### [facility] [address] [place] [address] Dr. Neisha Araiza Crystals LM Nom (Urine sed) NONE SEEN Normal NONE SEEN [facility] Comment on above: Performed By: #### U AMIC #### [facility] [address] [place] [address] Dr. Neisha Araiza Epithelial cells LM Ql (Urine sed) FEW Abnormal NONE SEEN /RARE [facility] Comment on above: Performed By: #### U AMIC #### [facility] [address] [address] [address] Neisha Araiza Glucose Ql (U) 500 mg/dl Abnormal NEGATIVE [facility] Comment on above: Performed By: #### U AMIC #### [facility] [address] [address] [address] Neisha Araiza Hemoglobin Ql (U) Negative Normal NEGATIVE The [facility] Comment on above: Performed By: #### U AMIC #### [facility] [address] [address] [address] Neisha Araiza Ketones Ql (U) 80 mg/dl Abnormal NEGATIVE [facility] Comment on above: Performed By: #### U AMIC #### [facility] [address] [address] [address] Neisha Araiza LEUKOCYTES Negative Normal NEGATIVE [facility] Comment on above: Performed By: #### U AMIC #### [facility] [address] [address] [address] Neisha Araiza MUCOUS NONE SEEN Normal NONE SEEN [facility] Comment on above: Performed By: #### U AMIC #### [facility] [address] [address] [address] Neisha Araiza Nitrite Ql (U) Negative Normal NEGATIVE [facility] Comment on above: Performed By: #### U AMIC #### [facility] [address] [place] [address] Dr. Neisha Araiza pH (U) 6.0 [pH] Normal 5-9 [facility] Comment on above: Performed By: #### U AMIC #### [facility] [address] [place] [address] Dr. Neisha Araiza RBC NONE SEEN Abnormal 0-2 [facility] Comment on above: Performed By: #### U AMIC #### [facility] [address] [place] [address] Dr. Neisha Araiza SPEC GRAVITY 1.030 Abnormal 1.005-<=1.025 [facility] Comment on above: Performed By: #### U AMIC #### [facility] [address] [place] [address] Dr. Neisha Araiza UA PROTEIN TRACE Normal NEGATIVE/ TRACE [facility] Comment on above: Performed By: #### U AMIC #### [facility] [address] [place] [address] Dr. Neisha Araiza Urobilinogen Qn (U) 0.2 {Ankit'U}/dL Normal 0.2 - 1. 0 [facility] Comment on above: Performed By: #### U AMIC #### [facility] [address] [place] [address] Dr. Neisha Araiza WBC 0-2 Abnormal NONE SEEN [facility] Comment on above: Performed By: #### U AMIC #### [facility] [address] [place] [address] Dr. Neisha Araiza AMYLASEon 12-08-2021 Amylase [Catalytic activity/Vol] 31 U/L Normal 25-115 [facility] Comment on above: Performed By: #### L IPA, AURELIANO, CMP #### [facility] [address] [place] [address] Dr. Neisha Araiza CBC AUTO DIFFon 12-08-2021 BASO # 0.0 103/ul Normal 0.0-0.1 [facility] Comment on above: Performed By: #### C BC #### [facility] [address] [place] [address] Dr. Neisha Araiza Basophils/100 WBC (Bld) 0.4 % Normal 0.2-2.0 [facility] Comment on above: Performed By: #### C BC #### [facility] [address] [place] [address] Dr. Neisha Araiza EO # 0.0 103/ul Normal 0.0-0.7 [facility] Comment on above: Performed By: #### C BC #### [facility] [address] [place] [address] Dr. Neisha Araiza Eosinophils/100 WBC (Bld) 0.0 % Critically low 0.9-7.0 [facility] Comment on above: Performed By: #### C BC #### [facility] [address] [place] [address] Dr. Neisha Araiza Erythrocyte distribution width (RBC) [Ratio] 12.9 % Normal 11.0-15.0 [facility] Comment on above: Performed By: #### C BC #### [facility] [address] [place] [address] Dr. Neisha Araiza Hematocrit (Bld) [Volume fraction] 43.8 % Normal 36.0-48.0 [facility] Comment on above: Performed By: #### C BC #### [facility] [address] [place] [address] Dr. Neisha Araiza Hemoglobin (Bld) [Mass/Vol] 14.7 g/dL Normal 12.0-16.0 [facility] Comment on above: Performed By: #### C BC #### [facility] [address] [place] [address] Dr. Neisha Araiza IG # 0.06 10e3/ul Critically high 0.00-0.03 [facility] Comment on above: Performed By: #### C BC #### [facility] [address] [place] [address] Dr. Neisha Araiza IG % 0.6 % Critically high 0.0-0.5 [facility] Comment on above: Performed By: #### C BC #### [facility] [address] [place] [address] Dr. Neisha Araiza LYMPH # 1.4 103/ul Normal 1.2-3.8 [facility] Comment on above: Performed By: #### C BC #### [facility] [address] [place] [address] Dr. Neisha Araiza Lymphocytes/100 WBC (Bld) 12.7 % Critically low 20.5-60.0 [facility] Comment on above: Performed By: #### C BC #### [facility] [address] [place] [address] Dr. Neisha Araiza MANUAL DIFF REQ NO Normal [facility] Comment on above: Performed By: #### C BC #### [facility] [address] [place] [address] Dr. Neisha Araiza MCH (RBC) [Entitic mass] 28.2 pg Normal 26.7-34.0 [facility] Comment on above: Performed By: #### C BC #### [facility] [address] [place] [address] Dr. Neisha Araiza MCHC (RBC) [Mass/Vol] 33.6 g/dL Normal 29.9-35.2 [facility] Comment on above: Performed By: #### C BC #### [facility] [address] [address] [address] Neisha Araiza MCV (RBC) [Entitic vol] 84.1 fL Normal 81.0-99.0 [facility] Comment on above: Performed By: #### C BC #### [facility] [address] [place] [address] Dr. Neisha Araiza MONO # 0.5 103/ul Normal 0.3-0.8 [facility] Comment on above: Performed By: #### C BC #### [facility] [address] [place] [address] Dr. Neisha Araiza Monocytes/100 WBC (Bld) 4.7 % Normal 1.7-12.0 [facility] Comment on above: Performed By: #### C BC #### [facility] [address] [place] [address] Dr. Neisha Araiza NEUT # 8.8 103/ul Critically high 1.4-6.5 [facility] Comment on above: Performed By: #### C BC #### [facility] [address] [place] [address] Dr. Neisha Araiza Neutrophils/100 WBC (Bld) 81.6 % Critically high 43.0-75.0 [facility] Comment on above: Performed By: #### C BC #### [facility] [address] [place] [address] Dr. Neisha Araiza Platelet mean volume (Bld) [Entitic vol] 10.0 fL Normal 9.5-13.5 [facility] Comment on above: Performed By: #### C BC #### [facility] [address] [place] [address] Dr. Neisha Araiza PLT 293 103/ul Normal 150-450 [facility] Comment on above: Performed By: #### C BC #### [facility] [address] [place] [address] Dr. Neisha Araiza RBC 5.21 106/ul Normal 4.20-5.40 [facility] Comment on above: Performed By: #### C BC #### [facility] [address] [address] [address] Neisha Araiza WBC 10.7 103/ul Normal 4.0-11.0 [facility] Comment on above: Performed By: #### C BC #### [facility] [address] [place] [address] Dr. Neisha Araiza Covid-19 PCR ([facility])on SARS-CoV-2 (COVID-19) RNA TIM+probe Ql (Unsp spec) Not detected Normal NOT DETECTED [facility] Comment on above: Result Comment: When [...] for this test is supported by the [place] of [employer]'s declaration that [...] C BC #### [facility] [address] [place] [address] Dr. Neisha Araiza LACTATE/LACTIC ACIDon 2021 Lactate [Moles/Vol] 1.5 mmol/L Normal 0.4-1.9 [facility] Comment on above: Performed By: #### C BC #### [facility] [address] [place] [address] Dr. Neisha Araiza LIPASEon 12-08-2021 Lipase [Catalytic activity/Vol] 149.0 U/L Normal 73.0-393.0 [facility] Comment on above: Performed By: #### L AURELIANO DRIVER, CMP #### [facility] [address] [place] [address] Dr. Neisha Araiza POINT OF CARE GLUCOSEon Glucose [Mass/Vol] 282 mg/dL Critically high 74-106 [facility] Comment on above: Performed By: #### A CETON #### [facility] [address] [place] [address] Dr. Neisha Araiza PROF 14(COMP METB)on 022 Albumin [Mass/Vol] 3.6 g/dL Normal 3.4-5.0 [facility] Comment on above: Performed By: #### L AURELIANO DRIVER, CMP #### [facility] [address] [place] [address] Dr. Neisha Araiza Albumin/Globulin [Mass ratio] 0.9 {ratio} Normal [facility] Comment on above: Performed By: #### L AURELIANO DRIVER, CMP #### [facility] [address] [place] [address] Dr. Neisha Araiza ALP [Catalytic activity/Vol] 105 U/L Normal 46-116 [facility] Comment on above: Performed By: #### L AURELIANO DRIVER, CMP #### [facility] [address] [place] [address] Dr. Neisha Araiza ALT [Catalytic activity/Vol] 32 U/L Normal 14-59 [facility] Comment on above: Performed By: #### L AURELIANO DRIVER, CMP #### [facility] [address] [place] [address] Dr. Neisha Araiza Anion gap [Moles/Vol] 23.2 mmol/L Normal [facility] Comment on above: Performed By: #### L AURELIANO DRIVER, CMP #### [facility] [address] [place], [place] [id number] Dr. Neisha Araiza AST [Catalytic activity/Vol] 15 U/L Normal 15-37 [facility] Comment on above: Performed By: #### L AURELIANO DRIVER, CMP #### [facility] [address] [place] [address] Dr. Neisha Araiza Bilirubin [Mass/Vol] 1.3 mg/dL Critically high 0.2-1.0 [facility] Comment on above: Performed By: #### L AURELIANO DRIVER, CMP #### [facility] [address] [place] [address] Dr. Neisha Araiza Calcium [Mass/Vol] 8.0 mg/dL Critically low 8.5-10.1 [facility] Comment on above: Performed By: #### L AURELIANO DRIVER, CMP #### [facility] [address] [place] [address] Dr. Neisha Araiza Chloride [Moles/Vol] 96 mmol/L Critically low 98-107 [facility] Comment on above: Performed By: #### L AURELIANO DRIVER, CMP #### [facility] [address] [place] [address] Dr. Neisha Araiza CO2 [Moles/Vol] 14.8 mmol/L Critically low 21.0-32.0 [facility] Comment on above: Performed By: #### L AURELIANO DRIVER, CMP #### [facility] [address] [place] [address] Dr. Neisha Araiza Creatinine [Mass/Vol] 0.62 mg/dL Normal 0.55-1.02 [facility] Comment on above: Performed By: #### L AURELIANO DRIVER, CMP #### [facility] [address] [place] [address] Dr. Neisha Araiza EGFR-AF EGYPTIAN >60 Normal >=60 [facility] Comment on above: Performed By: #### L AURELIANO DRIVER, CMP #### [facility] [address] [place] [address] Dr. Neisha Araiza EGFR-NON AF EGYPTIAN >60 Normal >=60 [facility] Comment on above: Performed By: #### L AURELIANO DRIVER, CMP #### [facility] [address] [address] [address] Neisha Araiza Globulin (S) [Mass/Vol] 4.2 g/dL Normal [facility] Comment on above: Performed By: #### L AURELIANO DRIVER, CMP #### [facility] [address] [address] [address] Neisha Araiza Glucose [Mass/Vol] 285 mg/dL Critically high 74-106 [facility] Comment on above: Performed By: #### L AURELIANO DRIVER, CMP #### [facility] [address] [address] [address] Neisha Araiza Potassium [Moles/Vol] 4.0 mmol/L Normal 3.5-5.1 [facility] Comment on above: Performed By: #### L AURELIANO DRIVER, CMP #### [facility] [address] [place] [address] Dr. Neisha Araiza Protein [Mass/Vol] 7.8 g/dL Normal 6.4-8.2 [facility] Comment on above: Performed By: #### L AURELIANO DRIVER, CMP #### [facility] [address] [address] [address] Neisha Araiza Sodium [Moles/Vol] 130 mmol/L Critically low 136-145 [facility] Comment on above: Performed By: #### L AURELIANO DRIVER, CMP #### [facility] [address] [address] [address] Neisha Araiza Urea nitrogen [Mass/Vol] 12.0 mg/dL Normal 7.0-18.0 [facility] Comment on above: Performed By: #### L AURELIANO DRIVER, CMP #### [facility] [address] [address] [address] Neisha Araiza Urea nitrogen/Creatinine [Mass ratio] 19.4 mg/mg Normal [facility] Comment on above: Performed By: #### L AURELIANO DRIVER, CMP #### [facility] [address] [address] [address] Neisha Araiza AMYLASEon 12-07-2021 Amylase [Catalytic activity/Vol] 20 U/L Critically low 25-115 [facility] Comment on above: Performed By: #### A CETON #### [facility] [address] [place] [address] Dr. Neisha Araiza BILIRUBIN CONJUGATED (DIRECT )on 12-07-2021 BILI, CONJUGATED 0.2 mg/dL Normal 0.0-0.2 [facility] Comment on above: Performed By: #### C BC #### [facility] [address] [place] [address] Dr. Neisha Araiza CBC AUTO DIFFon 12-07-2021 BASO # 0.0 103/ul Normal 0.0-0.1 [facility] Comment on above: Performed By: #### L AURELIANO DRIVER, CMP #### [facility] [address] [place] [address] Dr. Neisha rAaiza Basophils/100 WBC (Bld) 0.3 % Normal 0.2-2.0 [facility] Comment on above: Performed By: #### L AURELIANO DRIVER CMP #### [facility] [address] [place] [address] Dr. Neisha Araiza EO # 0.0 103/ul Normal 0.0-0.7 [facility] Comment on above: Performed By: #### L AURLEIANO DRIVER, CMP #### [facility] [address] [place] [address] Dr. Neisha Araiza Eosinophils/100 WBC (Bld) 0.0 % Critically low 0.9-7.0 [facility] Comment on above: Performed By: #### L AURELIANO DRIVER, CMP #### [facility] [address] [place] [address] Dr. Neisha Araiza Erythrocyte distribution width (RBC) [Ratio] 12.7 % Normal 11.0-15.0 [facility] Comment on above: Performed By: #### L AURELIANO DRIVER, CMP #### [facility] [address] [place] [address] Dr. Neisha Araiza Hematocrit (Bld) [Volume fraction] 44.9 % Normal 36.0-48.0 [facility] Comment on above: Performed By: #### L AURELIANO DRIVER, CMP #### [facility] [address] [address] [address] Neisha Araiza Hemoglobin (Bld) [Mass/Vol] 15.4 g/dL Normal 12.0-16.0 [facility] Comment on above: Performed By: #### L IPA, AURELIANO, CMP #### [facility] [address] [place] [address] Dr. Neisha Araiza IG # 0.03 10e3/ul Normal 0.00-0.03 [facility] Comment on above: Performed By: #### L IPA, AURELIANO, CMP #### [facility] [address] [place] [address] Dr. Neisha Araiza IG % 0.3 % Normal 0.0-0.5 [facility] Comment on above: Performed By: #### L IPA, AURELIANO, CMP #### [facility] [address] [place] [address] Dr. Neisha Araiza LYMPH # 1.2 103/ul Normal 1.2-3.8 [facility] Comment on above: Performed By: #### L IPA, AURELIANO, CMP #### [facility] [address] [place] [address] Dr. Neisha Araiza Lymphocytes/100 WBC (Bld) 12.2 % Critically low 20.5-60.0 [facility] Comment on above: Performed By: #### L IPA AURELIANO, CMP #### [facility] [address] [place] [address] Dr. Neisha Araiza MANUAL DIFF REQ NO Normal [facility] Comment on above: Performed By: #### L IPA, AURELIANO, CMP #### [facility] [address] [place] [address] Dr. Neisha Araiza MCH (RBC) [Entitic mass] 28.3 pg Normal 26.7-34.0 [facility] Comment on above: Performed By: #### L IPA, AURELIANO, CMP #### [facility] [address] [place] [address] Dr. Neisha Araiza MCHC (RBC) [Mass/Vol] 34.3 g/dL Normal 29.9-35.2 [facility] Comment on above: Performed By: #### L AURELIANO DRIVER, CMP #### [facility] [address] [place] [address] Dr. Neisha Araiza MCV (RBC) [Entitic vol] 82.5 fL Normal 81.0-99.0 [facility] Comment on above: Performed By: #### L IPA AURELIANO, CMP #### [facility] [address] [place] [address] Dr. Neisha Araiza MONO # 0.3 103/ul Normal 0.3-0.8 [facility] Comment on above: Performed By: #### L NEISHA AURELIANO, CMP #### [facility] [address] [place] [address] Dr. Neisha Araiza Monocytes/100 WBC (Bld) 3.1 % Normal 1.7-12.0 [facility] Comment on above: Performed By: #### L AURELIANO DRIVER, CMP #### [facility] [address] [place] [address] Dr. Neisha Araiza NEUT # 8.1 103/ul Critically high 1.4-6.5 [facility] Comment on above: Performed By: #### L AURELIANO DRIVER, CMP #### [facility] [address] [place] [address] Dr. Neisha Araiza Neutrophils/100 WBC (Bld) 84.1 % Critically high 43.0-75.0 [facility] Comment on above: Performed By: #### L AURELIANO DRIVER, CMP #### [facility] [address] [place] [address] Dr. Neisha Araiza Platelet mean volume (Bld) [Entitic vol] 9.8 fL Normal 9.5-13.5 [facility] Comment on above: Performed By: #### L NEISHA AURELIANO, CMP #### [facility] [address] [place] [address] Dr. Neisha Araiza PLT 263 103/ul Normal 150-450 [facility] Comment on above: Performed By: #### L AURELIANO DRIVER, CMP #### [facility] [address] [place] [address] Dr. Neisha Araiza RBC 5.44 106/ul Critically high 4.20-5.40 [facility] Comment on above: Performed By: #### L AURELIANO DRIVER, CMP #### [facility] [address] [place] [address] Dr. Neisha Araiza WBC 9.6 103/ul Normal 4.0-11.0 [facility] Comment on above: Performed By: #### L AURELIANO DRIVER, CMP #### [facility] [address] [place] [address] Dr. Neisha Araiza LIPASEon 12-07-2021 Lipase [Catalytic activity/Vol] 73.0 U/L Normal 73.0-393.0 [facility] Comment on above: Performed By: #### A CETON #### [facility] [address] [place] [address] Dr. Neisha Araiza PROF 14(COMP METB)on 022 Albumin [Mass/Vol] 3.8 g/dL Normal 3.4-5.0 [facility] Comment on above: Performed By: #### A CETON #### [facility] [address] [place] [address] Dr. Neisha Araiza Albumin/Globulin [Mass ratio] 0.9 {ratio} Normal [facility] Comment on above: Performed By: #### A CETON #### [facility] [address] [place] [address] Dr. Neisha Araiza ALP [Catalytic activity/Vol] 120 U/L Critically high 46-116 [facility] Comment on above: Performed By: #### A CETON #### [facility] [address] [place] [address] Dr. Neisha Araiza ALT [Catalytic activity/Vol] 34 U/L Normal 14-59 [facility] Comment on above: Performed By: #### A CETON #### [facility] [address] [place] [address] Dr. Neisha Araiza Anion gap [Moles/Vol] 20.0 mmol/L Normal [facility] Comment on above: Performed By: #### A CETON #### [facility] [address] [address] [address] Neisha Araiza AST [Catalytic activity/Vol] 18 U/L Normal 15-37 [facility] Comment on above: Performed By: #### A CETON #### [facility] [address] [address] [address] Neisha Araiza Bilirubin [Mass/Vol] 1.1 mg/dL Critically high 0.2-1.0 [facility] Comment on above: Performed By: #### A CETON #### [facility] [address] [address] [address] Neisha Araiza Calcium [Mass/Vol] 8.5 mg/dL Normal 8.5-10.1 [facility] Comment on above: Performed By: #### A CETON #### [facility] [address] [address] [address] Neisha Araiza Chloride [Moles/Vol] 94 mmol/L Critically low 98-107 [facility] Comment on above: Performed By: #### A CETON #### [facility] [address] [address] [address] Neisha Araiza CO2 [Moles/Vol] 18.9 mmol/L Critically low 21.0-32.0 [facility] Comment on above: Performed By: #### A CETON #### [facility] [address] [address] [address] Neisha Araiza Creatinine [Mass/Vol] 0.59 mg/dL Normal 0.55-1.02 [facility] Comment on above: Performed By: #### A CETON #### [facility] [address] [place] [address] Dr. Neisha Araiza EGFR-AF EGYPTIAN >60 Normal >=60 [facility] Comment on above: Performed By: #### A CETON #### [facility] [address] [address] [address] Neisha Araiza EGFR-NON AF EGYPTIAN >60 Normal >=60 [facility] Comment on above: Performed By: #### A CETON #### [facility] [address] [address] [address] Neisha Araiza Globulin (S) [Mass/Vol] 4.1 g/dL Normal [facility] Comment on above: Performed By: #### A CETON #### [facility] [address] [place] [address] Dr. Neisha Araiza Glucose [Mass/Vol] 322 mg/dL Critically high 74-106 [facility] Comment on above: Performed By: #### A CETON #### [facility] [address] [place] [address] Dr. Neisha Araiza Potassium [Moles/Vol] 3.9 mmol/L Normal 3.5-5.1 [facility] Comment on above: Performed By: #### A CETON #### [facility] [address] [place] [address] Dr. Neisha Araiza Protein [Mass/Vol] 7.9 g/dL Normal 6.4-8.2 [facility] Comment on above: Performed By: #### A CETON #### [facility] [address] [place] [address] Dr. Neisha Araiza Sodium [Moles/Vol] 129 mmol/L Critically low 136-145 [facility] Comment on above: Performed By: #### A CETON #### [facility] [address] [place] [address] Dr. Neisha Araiza Urea nitrogen [Mass/Vol] 12.0 mg/dL Normal 7.0-18.0 [facility] Comment on above: Performed By: #### A CETON #### [facility] [address] [place] [address] Dr. Neisha Araiza Urea nitrogen/Creatinine [Mass ratio] 20.3 mg/mg Normal [facility] Comment on above: Performed By: #### A CETON #### [facility] [address] [place] [address] Dr. Neisha Araiza Vital Signs Date Time Vital Sign Value Performing Clinician Boo arango 08-28-2024 15:14-0500 Diastolic blood pressure 92 mm[Hg] Sanchez Mancilla MD Work Phone: [facility] 08-28-2024 15:14-0500 Systolic blood pressure 150 mm[Hg] Sanchez Mancilla MD Work Phone: [facility] 08-28-2024 14:05-0500 Body height 165.1 cm Sanchez Mancilla MD Work Phone: [facility] [facility] 08-28-2024 14:05-0500 Body mass index (BMI) [Ratio] 29.29 kg/m2 Sanchez Mancilla MD Work Phone: [facility] 08-28-2024 14:05-0500 Body temperature 97.9 [degF] Sanchez Mancilla MD Work Phone: [facility] 08-28-2024 14:05-0500 Body weight 79.83 kg Sanchez Mancilla MD Work Phone: [facility] 08-28-2024 14:05-0500 Heart rate 116 /min Sanchez Mancilla MD Work Phone: [facility] 08-28-2024 14:05-0500 Respiratory rate 20 /min Sanchez Mancilla MD Work Phone: [facility] 08-28-2024 14:05-0500 SaO2% (BldA) [Mass fraction] 99 % Sanchez Mancilla MD Work Phone: [facility] 07-09-2024 08:36-0500 Body height 165.1 cm Amisha Nguyen MD Work Phone: [facility] 07-09-2024 08:36-0500 Body mass index (BMI) [Ratio] 3 kg/m2 Amisha Nguyen MD Work Phone: [facility] 07-09-2024 08:36-0500 Body temperature 98.6 [degF] Amisha Nguyen MD Work Phone: [facility] 07-09-2024 08:36-0500 Body weight 8.16 kg Amisha Nguyen MD Work Phone: [facility] [facility] 07-09-2024 08:36-0500 Diastolic blood pressure 99 mm[Hg] Amisha Nguyen MD Work Phone: [facility] 07-09-2024 08:36-0500 Heart rate 106 /min Amisha Nguyen MD Work Phone: [facility] 07-09-2024 08:36-0500 Respiratory rate 16 /min [facility]isha [facility] 07-09-2024 08:36-0500 SaO2% (BldA) [Mass fraction] 98 % Amisha Nguyen MD [facility] 07-09-2024 08:36-0500 Systolic blood pressure 146 mm[Hg] Amisha Nguyen MD Work [facility]: [facility] 01-23-2023 18:06-0400 Hourly Rounding Mbanefo OJUKWU [facility] 01-23-2023 18:06-0400 Promise to Return Mbanefo OJUKWU [facility] 01-23-2023 17:21-0400 Hourly Rounding Mbanefo OJUKWU [facility] 01-23-2023 17:21-0400 Promise to Return Mbanefo OJUKWU [facility] 01-23-2023 16:21-0400 Hourly Rounding Mbanefo OJUKWU [facility] 01-23-2023 16:21-0400 Promise to Return Mbanefo OJUKWU [facility] 01-23-2023 14:00-0400 Blood Pressure Location Mbanefo OJUKWU [facility] 01-23-2023 11:45-0400 Heart rate 74 /min Mbanefo OJUKWU [facility] 01-23-2023 11:45-0400 SaO2% (BldA) [Mass fraction] 98 % Mbanefo OJUKWU [facility] 01-23-2023 11:45-0400 Diastolic blood pressure 87 mm[Hg] Mbanefo OJUKWU [facility] 01-23-2023 11:45-0400 Mean blood pressure 107 mm[Hg] Mbanefo OJUKWU [facility] 01-23-2023 11:45-0400 Systolic blood pressure 146 mm[Hg] Mbanefo OJUKWU [facility] 01-23-2023 11:45-0400 Body temperature 98.06 [degF] Mbanefo OJUKWU [facility] 01-23-2023 08:47-0400 gluc 192 mg/dL Mbanefo OJUKW[facility] 01-23-2023 08:46-0400 Diastolic blood pressure 95 mm[Hg] Mbanefo OJUKWU [facility] 01-23-2023 08:46-0400 Heart rate 88 /min Mbanefo OJUKW[facility] 01-23-2023 08:46-0400 Systolic blood pressure 155 mm[Hg] Mbanefo OJUKWU [facility] 01-23-2023 08:03-0400 Heart rate 83 /min Mbanefo OJUKW[facility] 01-23-2023 08:03-0400 SaO2% (BldA) [Mass fraction] 98 % Mbanefo OJUKW[facility] 01-23-2023 08:03-0400 Mean blood pressure 115 mm[Hg] Mbanefo OJUKW[facility] 01-23-2023 08:02-0400 Body temperature 98.24 [degF] Mbanefo OJUKW[facility] 01-23-2023 01:40-0400 Blood Pressure Location Mbanefo OJUKW[facility] 01-23-2023 01:40-0400 Body temperature 98.06 [degF] Mbanefo [facility]JUKW[facility] 01-23-2023 01:40-0400 Heart rate 91 /min Mbanefo OJUKW[facility] 01-23-2023 01:40-0400 Mean blood pressure 119 mm[Hg] Mbanefo OJUKW[facility] 01-23-2023 01:40-0400 Respiratory rate 18 /min Mbanefo OJUKW[facility] 01-23-2023 01:40-0400 SaO2% (BldA) [Mass fraction] 98 % Mbanefo OJUKWU [facility] 01-22-2023 20:59-0400 Heart rate 94 /min Mbanefo OJUKW[facility] 01-22-2023 19:00-0400 Mean blood pressure 108 mm[Hg] Mbanefo OJUKWU [facility] 01-22-2023 15:33-0400 Respiratory rate 18 /min Mbanefo OJUKWU [facility] 01-22-2023 15:32-0400 Mean blood pressure 101 mm[Hg] Mbanefo OJUKWU [facility] 01-22-2023 11:35-0400 Heart rate 67 /min Mbanefo OJUKWU [facility] 01-22-2023 08:40-0400 gluc 215 mg/dL Mbanefo OJUKWU [facility] 01-22-2023 04:53-0400 Mean blood pressure 97 mm[Hg] Mbanefo OJUKWU [facility] 01-21-2023 18:42-0400 Respiratory rate 15 /min Mbanefo OJUKWU [facility] 01-21-2023 17:54-0400 Respiratory rate 21 /min Mbanefo OJUKW[facility] 01-21-2023 17:45-0400 Respiratory rate 16 /min Mbanefo OJUKWU [facility] 01-21-2023 16:20-0400 Heart rate 87 /min Mbanefo OJUKWU [facility] Encounters Encounter Date Encounter Type Care Provider Facility Start: 08-28-2024 End: 08-28-2024 Emergency department patient visit Sanchez Mancilla MD Work Phone: [facility] Emergency Department Comment on above: Blood glucose elevat ed (Primary Dx); Hyperglycemia due to diabetes mellitus (HCC); Dehydration Start: 07-09-2024 End: 07-09-2024 Emergency department patient visit Amisha Nguyen MD Work Phone: [facility] Emergency Department Comment on above: Infective otitis ext [place] of left ear (Primary Dx); Herpes zoster without complication Start: 02-05-2023 End: 02-05-2023 ambulatory FELIPA ROGERS [facility] Start: 01-23-2023 ambulatory Facility:1 [id number] Start: 01-22-2023 ambulatory Facility:1 [id number] Start: 01-21-2023 End: 01-23-2023 ambulatory Abhishek Herrerakit [place] Start: 01-21-2023 End: 01-23-2023 Observation Ellie OBANDO [facility] Start: 12-12-2022 End: 12-12-2022 Emergency department patient visit Pako Metzger [facility] Start: 06-15-2022 End: 06-15-[address] MOLLY GARLAND Facility:[facility]1 Start: 04-27-2022 End: 04-27-2022 ambulatory MIKEY DAMICO Facility:[facility] Start: 04-21-2022 End: 04-21-[address] GENTRY CARRILLO Facility:[facility] Start: 04-15-2022 End: 04-15-[address] MOLLY GARLAND Facility:[facility] Start: 01-04-2022 End: 01-05-[address] GENTRY CARRILLO Facility:[facility] Start: 01-03-2022 End: 01-03-2022 ambulatory LUTHER NGUYEN Facility:[facility] Start: 12-10-2021 End: 12-12-[address] GENTRY CARRILLO Facility:[facility] Start: 12-08-2021 End: 12-09-[address] GENTRY CARRILLO Facility:[facility] Start: 12-07-2021 End: 12-07-[address] BRI MARTE Facility:[facility]1 Procedures Date Procedure Procedure Detail Performing Clinician Start: 08-28-2024 Ecg routine ecg w/le ast 12 lds w/i&r Sanchez Mancilla MD Work Phone: Start: 08-28-2024 End: 08-28-2024 Gluc bld gluc mntr dev cleared fda spec home use Sanchez Mancilla MD Work Phone: Start: 08-28-2024 VENOUS BLOOD GAS, PO INT OF CARE Sanchez Mancilla MD Work Phone: Start: 08-28-2024 End: 08-28-2024 Comprehensive metabolic panel Sanchez Mancilla MD Work Phone: Percutaneous coronar y intervention Ellie OBANDO Comment on above: stent to LCX Plan of Treatment Date Care Activity Detail Author Start: 04-02-2024 COVID-19 Vaccine ( season) COVID-19 Vaccine ( season) [facility] Start: 03-02-2024 Influenza vaccination Flu vaccine (# 1) [facility] Start: 1997 DTaP/Tdap/Td vaccine (1 - Tdap) DTaP/Tdap/Td vaccine (1 - Tdap) [facility] End: 08-28-2024 Blood gas, venous Blood gas, venous Lab Routine One Time for 1 Occurrences starting 08/28/2024 until 08/28/2024 [facility] Comment on above: One Time for 1 Occur rences starting 08/28/2024 until 08/28/2024 EKG 12 Lead EKG 12 Lead ECG STAT 08/28/2024 4:47 PM EST [facility] Payers Date Payer Category Payer Medicaid [id number] 1980 Unknown [id number] 2.16.84 [id number] 1980 Unknown [id number] 2.16.84 [id number] 1978 Unknown [id number] 2.16.84 0.1.414589.3.579.2.593 1978 Unknown [id number] 2.16.84 0.1.777414.3.579.2.59 1978 Unknown [id number] 2.16.84 0.1.400988.3.579.2.593 1978 Unknown [id number] 2.16.84 0.1.766752.3.579.2.593 1978 Unknown [id number] 2.16.84 0.1.442289.3.579.2.593 1978 Unknown [id number] 2.16.84 0.1.486450.3.579.2.593 1978 Unknown [id number] 2.16.84 0.1.110112.3.579.2.593 1978 Unknown [id number] 2.16.8 40.1.134501.3.579.2.727 1978 Unknown [id number] 2.16.8 40.1.184030.3.579.2.727 1978 Unknown [id number] 2.16. 840.1.109052.3.579.2.356 1978 Unknown [id number] 2.16. 840.1.990827.3.579.2.356 1978 Unknown [id number] 2.16.8 40.1.736472.3.579.2.174 1978 Unknown [id number] 2.16.8 40.1.875305.3.579.2.174 1959 Unknown [id number] Social History Date Type Detail Facility Tobacco Never smoker [facility] Comment on above: denies Tobacco smoking status No Smokin g Status Entered [facility] Start: 07-09-2024 Sex Assigned At Female F [facility] Start: 07-09-2024 [facility] Start: 07-09-2024 Tobacco use and exposure Smokeless tobacco non-user [facility] Start: 07-09-2024 Alcoholic beverage intake Lifetime non-drinker (finding) [facility] Start: 1980 Sex assigned at Female B on [facility] Start: 07-09-2024 Gender identity Identifies as female gender (finding) [facility] Start: 07-09-2024 History of Social function [facility] How often to you hav e a drink containing alcohol? Never [facility] How many standard drinks containing alcohol do you have on a typical day? Patient does not drink [facility] [employer] NEGATED: Highlighted rowStart: KELVIN History of tobacco use Passive smoker [facility] Medical Equipment Procedure Code Equipment Code Equipment Origin al Text Equipment Identifier Dates PCI Unknown 01/22/23 Non Biological Left Circumflex Coronary Artery FDA Start: 01-22-2023 Comment on above: 2.75 mm x 28 mm Xien ce Coronary stent to LAD Functional Status Date Assessment Result Facility 01-21-2023 Functional Status No [facility] 01-21-2023 Functional Status [facility] Clinical Notes 01-05-2022 to 08-28-2024 Discharge InstructionsAttachments Note Date & Type Note Facility 08-28-2024 Hospital Discharge instructions Sanchez Mancilla MD - 08/28/2024 5:26 PM EST RESTART YOUR METFORMIN. INCREASE YOUR BASAGLAR (NIGHTTIME INSULIN) TO 40 UNITS. Call your doctor in the morning and he will have an appointment for you sometime tomorrow. Drink plenty of water, follow diabetic diet. Monitor your blood sugar and keep a log to take to your doctor. Return to the emergency department if you develop a blood sugar greater than 600, abdominal pain, vomiting, fever, other concerning symptoms. The following attachments cannot be sent through Care Everywhere.Hyperglycemia: General Info ([place]i)documented in this encounter [facility] 02-05-2023 Note Cardiology Clinic No te Chief Complaint: establish care HPI: Escobar Ortega is a 43 y.o. female with a [...] indefinitely -High intensi (more content not included)... [facility] 02-05-2023 Note New patient here to establish care. Ref from Dr. Carrillo for recent NSTEMI w/ PCI at [facility]. She wanted to see cardiology closer to home. She was started on Brilinta s/p PCI and is tolerating it well. [facility] 01-24-2023 Note Admission and Discha rge Information Admitting Physician - Bobby OBANDO MDfo Consulting Physician - Abhishek Monterroso MD Admitting Diagnoses: Discharge Diagnoses 1. NSTEMI (non-ST [...] shoulder pain. She was subsequently admitted to [facility] with acute NSTEMI, elevated troponin, hypertensive urgency, right shoulder pain. She was treated with aspirin, Brilinta, Lipitor, nitroglycerin, Lovenox. She was also treated with lisinopril and Lopressor. She was seen in consultation by the feed research technician and underwent echocardiogram that was essentially normal. [...] primary care physician as well as the feed research technician accordingly. Physical Exam General: alert, no acute [...] 69.9 % Lymph Auto - 24.9 % [place] Auto - 4.6 % Eos Auto - 0.2 % Basophil Auto - 0.4 % Neutro Absolute - 7.4 E9/L Lymph Absolute - 2.6 E9/L [place] Absolute - 0.5 E9/L Eos Absolute - [...] - 255 mg/dL POC Device SN - [id number] POC User ID - [id number] POC Username - LESLY PARR CBC w/ [...] - NEGATIVE1 UA (more content not included)... [facility] Comment on above: Result Comment: Elec tronically Signed By: GAGE HAIDER, Ellie\.br\Date and Time Signed: 01/24/23 19:32 EDT 01-23-2023 Evaluation + Plan note Extrac donovan from: Title:APSO Note Author:GAGE HAIDER, Mbanefo Date: 40-year-old female noncigarette smoker with history [...] Ordered: Sbsq Hospital Care/Day Moderate 35 Minutes 54121 2. Coronary artery disease (I25.10: Atherosclerotic heart disease of [place] coronary artery without angina pectoris) As seen on cardiac catheterization. Patient has coronary artery disease with mid left circumflex artery occlusion requiring 1 drug-eluting stent placement on 01/22/2023. Continue on aspirin, Brilinta, Lipitor, lisinopril and Lopressor. Ordered: Sbsq Hospital Care/Day Moderate 35 Minutes 65153 3. Chest pain (R07.9: Chest pain, unspecified) Secondary to above. Resolved. Ordered: [facility] Hospital Care/Day Moderate 35 Minutes 78070 4. Elevated troponin (R77.8: Other specified abnormalities of plasma proteins) Secondary to above. Resolved. Ordered: Sbsq Hospital Care/Day Moderate 35 Minutes 09415 5. Hypertensive urgency (I16.0: Hypertensive urgency) Resolved. Continue on lisinopril and metoprolol. Ordered: Sbs[facility] Hospital Care/Day Moderate 35 Minutes 88728 6. Right shoulder pain (M25.511: Pain in right shoulder) Secondary to above #1. With atypical presentation. Ordered: Sbs[facility] Hospital Care/Day Moderate 35 Minutes 22738 7. Leukocytosis (D72.829: Elevated white blood cell [...] deep vein thrombosis (DVT) prophylaxis (Z79.899: Other penitentiary (current) drug therapy) SCDs. Disposition: Home either today or in a.m. pending cardiology final recommendations. I discussed the diagnosis and plan of care with the patient at the bedside. Moderate level of MDM based on addressing above issues. This documentation was transcribed using voice recognition software. Several attempts were made to ensure accuracy. However inadvertent computerized benchroom shop optician errors may be present. Ellie Obando. Hospitalist. Orders: atorvastatin, 80 mg = 2 [...] Echo Transthoracic w/ Contrast HgbA1c Referral to [facility] Extracted from: Title:Procedure Note Heart & [...] deep vein thrombosis (DVT) prophylaxis (Z79.899: Other penitentiary (current) drug therapy) Orders: ticagrelor, 180 mg = 2 tab(s), Tab, Oral, Once, Stop date 01/22/23 14:32:00 EDT, NOW, Start date 01/22/23 14:32:00 EDT, 01/22/23 14:32:00 EDT ticagrelor, Tab, Misc, Once, Stop date 01/22/23 14:32:48 EDT, Physician Stop, 01/22/23 14:32:48 EDT CV Cardiovascular Extracted from: Title:Consult Note Author:Kriss HAIDER, Sofi Agudelo. Date:01/22/23 43-year-old female with non- STEMI. Significant [...] deep vein thrombosis (DVT) prophylaxis (Z79.899: Other penitentiary (current) drug therapy) Orders: ticagrelor, 180 mg [...] morphine and oxygen. Cardiology consult pending. Ordered: [facility] Hospital Care/Day Moderate 35 Minutes 81467 2. Elevated troponin (R77.8: Other specified abnormalities of plasma proteins) Elevated troponin secondary to NSTEMI. Cardiology consult pending. Continue on aspirin, Lipitor, Lovenox. Echocardiogram pending. Ordered: [facility] Hospital Care/Day Moderate 35 Minutes 21583 3. NSTEMI (non-ST elevation myocardial infarction) (I21.4: Non-ST elevation (NSTEMI) myocardial infarction) Acute NSTEMI present on admission. Cardiology consult pending. Echocardiogram pending. Continue on aspirin, Lipitor, lisinopril, Lovenox. Ordered: [facility] Hospital Care/Day Moderate 35 Minutes [id number] 4. Hypertensive urgency (I16.0: Hypertensive urgency) Resolved. Continue lisinopril. Ordered: [facility] Hospital Care/Day Moderate 35 Minutes 92610 5. Right shoulder pain (M25.511: Pain in right shoulder) Resolved. Ordered: [facility] Hospital Care/Day Moderate 35 Minutes 90967 6. Leukocytosis (D72.829: Elevated white blood cell [...] deep vein thrombosis (DVT) prophylaxis (Z79.899: 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) Lovenox. Disposition: Pending echocardiogram and cardiology consult. I discussed the diagnosis and plan of care with the patient at the bedside. Moderate level of MDM based on addressing above issues. This documentation was transcribed using voice recognition software. Several attempts were made to ensure accuracy. However inadvertent computerized benchroom shop optician errors may be present. Ellie Obando. Hospitalist. Extracted from: Title:Admission H & P Author:Ellie OBANDO MD Date:01/21/23 43-year-old female noncigarette smoker with [...] Ordered: Initial Hospital Care/Day High 75 Minutes 37151 2. Elevated troponin (R77.8: Other specified abnormalities of plasma proteins) Elevated troponin mild. We will complete serial cardiac enzymes. Started patient on aspirin. If troponin trends up we will start patient on Lovenox or IV heparin. Check fasting lipid profile. Echocardiogram. Ordered: Initial Hospital Care/Day High 75 Minutes 35066 3. Hypertensive urgency (I16.0: Hypertensive urgency) Continue lisinopril. IV hydralazine as needed. Ordered: Initial Hospital Care/Day High 75 Minutes 53955 4. Right shoulder pain (M25.511: Pain in right shoulder) Musculoskeletal in origin. Started patient on as needed pain medications. Ordered: Initial Hospital Care/Day High 75 Minutes 69288 5. Leukocytosis (D72.829: Elevated white blood cell count, unspecified) Secondary to steroid effect. Ordered: Initial Hospital Care/Day High 75 Minutes [id number] 6. Hyperglycemia (R73.9: Hyperglycemia, unspecified) Secondary to [...] deep vein thrombosis (DVT) prophylaxis (Z79.899: Other penitentiary (current) drug therapy) Lovenox. Disposition: The patient [...] made to ensure accuracy. However inadvertent computerized benchroom shop optician errors may be present. Ellie Obando. Hospitalist. Orders: acetaminophen, 650 mg = 2 [...] Weight Extracted from: Title:ED Note Author:Andres Mejia, Daisy Heath te:01/21/23 1. Hypertensive urgency (I16 .0: [...] deep vein thrombosis (DVT) prophylaxis (Z79.899: 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) Orders: nitroglycerin, 0.4 mg [...] ED Physician consult Hospitalist for continued care [facility]06-24-2023 Hospital Discharge instructions Patient Education 01/23/2023 09:22:37 CV - Cardiovascular PCI Discharge Instructions (CUSTOM) [place], [place] Cardiovascular PCI DISCHARGE INSTRUCTIONS Diet: Resume [...] hours post procedure: Actoplus MetGlucophageGlucophage XR GlucovanceAvandametFortamet Xrr-dxmjynmvlDdqibsHqbp-rygaveppn GlumetzaJanumetMetaglip RiometGlycomet Minimal pain, soreness and/or discomfort is expected. If you are prescribed an aspirin and/or antiplatelet (such as Plavix, Brilinta or Effient) do NOT stop taking these medications for any reason without talking to your feed research technician Site Care: Do not remove dressing for [...] you are interested in smoking cessation, contact [facility] at [phone], ext. [phone]. In the event you are unable to reach your physician, please call [facility] at [phone] and the blanking machine operator will assist you. Seek Medicare [...] Care 01/21/2023 16:19:43 With:Abhishek Monterroso Address: [address] [place] [address]- Business (1) When:2 weeks Comments:Call for followup appointment With:Gentry Carrillo Address: [address] [place] [address]- Business (1) When:01/27/2023 09:30:00 [facility]06-24-2023 NoteProcedure [facility] poss PCI via right radial Patient seen [...] deep vein thrombosis (DVT) prophylaxis (Z79.899: Other penitentiary (current) drug therapy) Orders: ticagrelor, 180 mg = 2 tab(s), Tab, Oral, Once, Stop date 01/22/23 14:32:00 EDT, NOW, Start date 01/22/23 14:32:00 EDT, 01/22/23 14:32:00 EDT ticagrelor, Tab, Misc, Once, Stop date 01/22/23 14:32:48 EDT, Physician Stop, 01/22/23 14:32:48 EDT CV CardiovascularSum[facility] HealthComment on above:Result Comment: Electronically Signed By: Kriss HAIDER, Abhishek Hagan\.br\Date and Time Signed: 01/22/23 22:12 [id number] NoteEchocardiology Procedure Exam Date/Time Accession # Ordering Dr. Gonzalez Transthoracic w/ 01/22/2023 11:42 EDT [id number] GAGE HAIDER, Mbanefo Contrast CPT code [id number] Reason for Exam (Echo Transthoracic w/ Contrast) [place] [address] Adult Echocardiogram Report Name: ESCOBAR ORTEGA Study Date: 01/22/2023 09:56 AM BP: 129/81 mmHg Patient Location: [address] [place] [address] HR: 89 : 1980 Gender: Female Height: 65 in Age: 43 yrs Ethnicity: [facility] Weight: 183 lb Reason For Study: Chest pain BSA: 1.9 m2 History: DM, HTN Ordering Physician: Ellie OBANDO Performed By: Rema Meléndez RDCS Interpretation Summary Ejection Fraction = 60-65%. Normal [...] Signed by: Abhishek Monterroso MD Transcribed by: [facility] Technologist: [facility]06-22-2023 Note Chief Complaint pt states just seen for arm pain, given rx steroid. 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 History of Present Illness 43-year-old female [...] Lymph Auto: 8.6 % Low (01/21/23 16:35:00) [place] Auto: 4.8 % (01/21/23 16:35:00) Eos Auto: 0.1 % (01/21/23 16:35:00) Basophil Auto: 0.3 % (01/21/23 16:35:00) Neutro Absolute: 12.3 E9/L High (01/21/23 16:35:00) Lymph Absolute: 1.2 E9/L (01/21/23 16:35:00) [place] Absolute: 0.7 E9/L (01/21/23 16:35:00) Eos Absolute: [...] Urobilinogen: 0.2 (01/21/23 17:53 (more content not included)...[facility]Result Comment: Electronically Signed By: GAGE HAIDER, Ellie\.br\Date and Time Signed: 01/21/23 19:11 [id number] Note PROCEDURE: XR GI UPPER AIR KUB [...] Electronically authenticated by: MATTHEW SILVER Date: 2022-01-05 11:30[facility]06-06-2022 NotePROCEDURE: XR GI UPPER AIR KUB [...] Electronically authenticated by: MATTHEW SILVER Date: 2022-01-05 11:30[facility]06-06-2022 NotePROCEDURE: XR GI UPPER AIR KUB [...] small bowel follow-through Electronically authenticated by: MATTHEW SLIVER Date: 2022-01-05 11:30[facility] note* Diagnosis Infective otitis externa of left ear- Primary Herpes zoster without complication documented in this encounter [facility] note* Diagnosis Blood glucose elevated- Primary Other abnormal glucose Hyperglycemia due to diabetes mellitus (HCC) Dehydration documented in this encounter [facility] course Narrative No data available for this section [facility] Attachments The following attachments cannot be sent through Care Everywhere. * Shingles ([place]) * Otitis Externa ([place]) [facility] No data available for this section [facility] Summary Purpose Family History No Family History Records FoundNo Family History Records FoundNo Family History Records FoundNo Family History Records FoundNo Family History Records Found Advance Directives No Advanced Directives Records FoundNo Advanced Directives Records FoundNo Advanced Directives Records FoundNo Advanced Directives Records FoundNo Advanced Directives Records Found Additional Source Comments INFORMATION SOURCE (unrecogn ized section and content) DATE CREATED AUTHOR 06/22/2022 [facility] DATE CREATED AUTHOR AUTHOR'S ORGANIZ ATION 01/28/2023 [facility] DATE CREATED AUTHOR AUTHOR'S ORGANIZ ATION 03/15/2023 [facility] DATE CREATED AUTHOR AUTHOR'S ORGANIZ ATION 05/15/2023 [facility] DATE CREATED AUTHOR AUTHOR'S ORGANIZ ATION 08/29/2024 Татьяна Limon zulemamyriam Patient Care team informatio n (unrecognized section and content) Bird Raiser Relationship Specialty Start Date End Date Gentry Carrillo MD [address] [place] [address] PCP - General Family Medicine 07/09/24 Bird Raiser Relationship Specialty [place] [address] [place] [address] PCP - General Family Medicine 07/09/24 Reason for Visit (unrecogniz ed section and content) Reason Comments Ear Pain Left ear pain for 3 weeks. Worse since last night. Reason Comments Hyperglycemia Pt blood sugars have been running high for a week Ordered Prescriptions (unrec ognized section and content) Prescription Sig Dispensed Refills Start Date End Da te ciprofloxacin (CILOXAN) 0.3 % ophthalmic solution Place 4 drops in ear(s) in the morning and at bedtime for 10 days Please 4 drops in the left ear bid for 7 days 5 mL 07/09/2024 07/19/2024 naproxen (NAPROSYN) 375 MG tablet Take 1 tablet by mouth 2 times daily as needed for Pain 20 tablet 07/09/2024 07/19/2024 valACYclovir (VALTREX) 1 g tablet Take 1 tablet by mouth 3 times daily for 7 days 21 tablet 07/09/2024 07/16/2024 atorvastatin (LIPITOR) 80 MG tablet Take 1 tablet by mouth daily Please hold for the time you are taking antiviral 30 tablet 07/09/2024 Scheduled Active and Recently Administ ered Medications (unrecognized section and content) Medication Order 07/07/2024 07/08/2024 07/09/2024 ketorolac (TORADOL) injection 30 mg (COMPLETED) 30 mg, IntraMUSCular, ONCE, 1 dose, On 07/09/24 at 0900, Do not administer for more than 5 days. 0859 (Given - Provid er: Nuzhat Posada RN) Scheduled Medication Order 08/26/2024 08/27/2024 08/28/2024 acetaminophen (TYLENOL) tablet 650 mg (COMPLETED) 650 mg, Oral, ONCE, 1 dose, On Wed08/28/24 at 1630, Maximum dose of acetaminophen is 4000 mg from all sources in 24 hours. 1631 (Given - Provid er: Karolina Trujillo RN) insulin regular (HumuLIN R;NovoLIN R) injection 15 Units (COMPLETED) 15 Units, IntraVENous, ONCE, 1 dose, On Wed08/28/24 at 1515 1528 (Given - Provid er: Karolina Trujillo RN) sodium chloride 0.9 % bolus 1,000 mL (COMPLETED) 1,000 mL (12.5 mL/kg), IntraVENous, at 1,000 mL/hr, Administer over 1 Hours, ONCE, On Wed08/28/24 at 1430, For 1 dose 1525 (New Bag - Prov ider: Karolina Trujillo RN)1607 (Stopped - Provider: Karolina Trujillo RN) sodium chloride 0.9 % bolus 1,000 mL (COMPLETED) 1,000 mL (12.5 mL/kg), IntraVENous, at 1,000 mL/hr, Administer over 1 Hours, ONCE, On Wed08/28/24 at 1630, For 1 dose 1631 (New Bag - Prov ider: Karolina Trujillo RN)1811 (Stopped - Provider: Karolina Trujillo RN) FOR RECORDS PERTAINING TO PATIENTS WHO ARE [...] BE BASED ON THE PRIMARY CLINICAL RECORDS. [facility] provides no warranty or guarantee of the accuracy or completeness of information in this document.
== END 2024-09-06 14:51 | disposition home or self-care (01) ==
LOC: WC 14:50
PROVIDERS: PCP Family Medicine; Visit Provider Physician Assistant
DX: E11.621 Type 2 diabetes mellitus with foot ulcer (principal); L97.419 Non-pressure chronic ulcer of right heel and midfoot with unspecified severity
CPT/HCPCS: 11043; G0463

== ENCOUNTER 2024-09-26 15:20 | Outpatient (OUT) | payer OTHER, SELFPAY | END 2024-09-26 15:21 | disposition home or self-care (01) | LOC: WC 15:21 | PROVIDERS: PCP Family Medicine; Visit Provider Physician Assistant | DX: E11.621 Type 2 diabetes mellitus with foot ulcer (principal); L97.419 Non-pressure chronic ulcer of right heel and midfoot with unspecified severity | CPT/HCPCS: G0463 ==

== ENCOUNTER 2024-10-19 21:51 | Emergency (ER) | payer OTHER, SELFPAY ==
[2024-10-19 21:56] VITALS: PULSE 94; TEMP 36.6; O2SAT 96; BMI 28.6
--- OUTSIDE RECORDS SUMMARY | 2024-10-19 21:58 | XMS_ITS | CCD ---
Author Organization [facility] Care Team Providers Care Bridge Maintenance Worker Name Role Phone DR GENTRY CARRILLO Consulting [...] Consulting Unavailable DR NELSON PUENTES Consulting Unavailable REBECA HOLLIS Consulting Unavailable MARIAELENA BROWN Consulting Unavailable LORENA, DR EDMOND Consulting Unavailable LORENA, DR EDMOND Attending Unavailable LORENA, DR EDMOND Admitting Unavailable LORENA, DR EDMOND Primary Care Unavailable ADRIANNE, DR MATTHEW Escobar Consulting Unavailable MERLE ALEXANDRA Consulting Unavailable LUTHER NGUYEN Consulting Unavailable GILL, DR BARNES Consulting Unavailable LORENA, DR EDMOND Primary Care Unavailable GILL, DR BARNES Attending Unavailable GILL, DR BARNES Admitting Unavailable Gentry Carrillo Primary Care Physician Abhishek Monterroso Consulting Ellie Nieto Attending Unavailable Ellie OBANDO Admitting Unavailable Abhishek Monterroso Consulting Abhishek Cox Consulting UnavailPako Robertson Attending Unavailable FELIPA ROGERS Attending Unavailable Gentry Carrillo MD Primary Care Provider [phone] AMY LOVE Attending Unavailable GENTRY CARRILLO Primary Care Unavailable GENTRY CARRILLO Primary Care Unavailable SANCHEZ MANCILLA Attending Unavailable GENTRY CARRILLO Primary Care Unavailable AMISHA NGUYEN Attending Unavailable Allergies Allergy Classification Reported Allergen(s) Allergy Type Date of Onset Reaction(s) Facility (1 source) Penicillin Drug Allergy 08-02-1979 [facility] Repository (6 sources) Penicillins; Translations: [penicillins] Drug allergy 05-26-2019 [facility] Medications Current Medications Medication Drug Class(es) Dates Sig (Normalized) Sig (Original) acetaminophen 500 mg oral tablet (3 sources) Start: 10-04-2024 take 1 tablet by mouth four times daily as needed for pain acetaminophen (TYLENOL) 500 MG tablet Take 1 tablet by mouth 4 times daily as needed for Pain 360 tablet 1 10/04/2024 Active Start: 10-04-2024 take 4000 mg by mout h every twenty-four hours 1,000 mg, Oral, ONCE, 1 dose, On Wed10/04/24 at 0745, Maximum dose of acetaminophen is 4000 mg from all sources in 24 hours. Start: 08-28-2024 End: 08-28-2024 take 4000 mg by mouth every twenty-four hours 650 mg, Oral, ONCE, 1 dose, On Wed08/28/24 at 1630, Maximum dose of acetaminophen is 4000 mg from all sources in 24 hours. aspirin 81 mg delayed release oral tablet (4 sources) Platelet Aggregation Inhibitor, Nonsteroidal Anti-inflammatory Drug Start: 01-23-2023 take 1 tablet by mouth once daily aspirin 81 mg Oral EC Tab 81 mg = 1 tab(s), Oral, Daily, # 30 tab(s), Refills(s) 1, Pharmacy: [facility] #[id number], 165, cm, 01/21/23 16:25:00 EDT, Height/Length Dosing, 83, kg, 01/21/23 16:25:00 EDT, Weight Dosing Start Date: 01/23/23 Status: Ordered take 1 tablet by mouth once angus y aspirin 81 MG chewable tablet Take 1 tablet by mouth daily Active atorvastatin 80 mg oral tablet (5 sources) HMG-CoA Reductase Inhibitor Start: 01-23-2023 End: 07-09-2024 take 1 tablet by mouth once daily atorvastatin (LIPITOR) 80 MG tablet Take 1 tablet by mouth daily Please hold for the time you are taking antiviral 30 tablet 07/09/2024 Active cetirizine hydrochloride 10 mg oral tablet (4 sources) Histamine-1 Receptor Antagonist Start: 03-23-2022 take [...] 07/19/2024 Active citalopram 20 mg oral tablet (4 sources) Serotonin Reuptake Inhibitor Start: 06-05-2022 take 1 tablet by mouth once daily citalopram 20 mg Tab 20 mg = 1 tab(s), Oral, Daily, Refills(s) 0 Start Date: 06/05/22 Status: Ordered fluticasone furoate 0.05 MG/ACTUAT Dry Powder Inhaler (4 sources) Corticosteroid Start: 03-24-2022 take 1 puff(s) [...] Rhinitis Active glimepiride 4 mg oral tablet (4 sources) Sulfonylurea Start: 03-23-2022 take 1 tablet by mouth once daily glimepiride 4 mg Tab 4 mg = 1 tab(s), Oral, Daily, Refills(s) 0 Start Date: 03/23/22 Status: Ordered hydrOXYzine hydrochloride 25 mg oral tablet (3 sources) Antihistamine take 1 tablet by mouth [...] 0 Start Date: 10/19/22 Status: Ordered Lantus (3 sources) Insulin Analog Start: 10-19-2022 inject 20 [IU] by subcutaneous injection once daily at bedtime Lantus insulin 20 unit(s), SubCutaneous, Once a day (at bedtime), Refills(s) 0 Start Date: 10/19/22 Status: Ordered Insulin Glargine (BASAGLAR KWIKPEN SC) Inject 30 Units into the skin at bedtime Active labetalol hydrochloride 200 mg oral tablet (2 sources) beta-Adrenergic Alicia take 1.5 tablets by mouth three times daily labetalol (NORMODYNE) 200 MG tablet Take 1.5 tablets by mouth 3 times daily Active metFORMIN hydrochloride 500 mg oral tablet (1 source) Biguanide Start: take 1 tablet by mouth twice daily metformin 500 mg Tab 500 mg = 1 tab(s), Oral, BID, Refills(s) 0 Start Date: 03/23/22 Status: Ordered naproxen 375 mg oral tablet (3 sources) Nonsteroidal Anti-inflammatory Drug Start: End: take 1 tablet by mouth twice daily as needed for pain naproxen (NAPROSYN) 375 MG tablet Take 1 tablet by mouth 2 times daily as needed for Pain 20 tablet 07/09/2024 Active nitroglycerin 0.4 mg sublingual tablet (1 source) Nitrate Vasodilator Start: nitroglycerin 0.4 mg sublingual Tab 0.4 mg = 1 tab(s), SubLingual, q5min, PRN Chest pain, not to exceed 3 doses/15 min--if pain persists, seek medical attention, # 100 tab(s), Refills(s) 0, Pharmacy: [facility] #[id number], 165, cm, 01/21/23 16:25:00 EDT, Height/Length Dosing, 83, kg, 01/21/23... Start Date: 01/23/23 Status: Ordered ticagrelor 90 mg oral tablet (4 sources) Start: take 1 tablet by mouth twice daily Brilinta (ticagrelor) 90 mg oral tablet 90 mg = 1 tab(s), Oral, BID, # 60 tab(s), Refills(s) 1, Pharmacy: [facility] #[id number], 165, cm, 01/21/23 16:25:00 EDT, Height/Length Dosing, [...] 5 days. lisinopril 10 mg oral tablet (5 sources) Angiotensin Converting Enzyme Inhibitor Start: 01-23-2023 End: 01-23-2023 lisinopril 10 mg Tab 10 mg = 1 tab(s), Tab, Oral, Start date 01/23/23 9:00:00 EDT, 01/21/23 19:11:00 EDT Start Date: 01/23/23 Stop Date: 01/23/23 Status: Completed Start: 01-05-2022 take 1 tablet by leoncio once daily lisinopril 20 mg Tab 20 mg = 1 tab(s), Oral, Daily, Refills(s) 0 Start Date: 01/05/22 Status: Ordered metoprolol tartrate 25 mg oral tablet (7 sources) beta-Adrenergic Alicia Start: 01-23-2023 End: 01-23-2023 [...] Coronary atherosclerosis; Translations: [Atherosclerotic heart disease of [place] coronary artery without angina pectoris] Onset: 01-23-2023 [...] current use of drug therapy; Translations: [Other penitentiary (current) drug therapy] Onset: 01-21-2023 Episodic Other [...] (SUSP) EXPOS COVID-19] Onset: 02-19-2022 Viral infection (4 sources) Herpes zoster without complication; Translations: [Zoster [...] 02-19-2022 Episodic Other aftercare (1 source) 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 (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) drug therapy; Translations: [OTH PRISON CURRENT DRUG THERAPY] Onset: 02-19-2022 Episodic Other aftercare (1 source) [facility] (current) use of oral hypoglycemic drugs; Translations: [PRISON USE ORAL HYPOGLYCEMIC DX] Onset: 02-19-2022 Episodic Other aftercare (1 source) oil heaterman (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; Translations: [PRISON CURRENT USE OF ASPIRIN] Onset: 12-09-2021 Episodic Other aftercare (1 source) [facility] (current) use of insulin; Translations: [POLICE CAPTAIN SENIOR CURRENT USE OF INSULIN] Onset: 12-09-2021 Episodic [...] Test Name Value Interpretation Reference Range Facility COVID-19, Rapidon 10-04-2024 SARS-CoV-2 (COVID-19) RdRp gene TIM+probe Ql (Resp) Not detected Not Detected [facility] Comment on above: Rapid NAAT: The specimen is NEGATIVE for SARS-CoV-2, the novel coronavirus associated with COVID-19. The ID NOW COVID-19 assay is designed to detect the virus that causes COVID-19 in patients with signs and symptoms of infection who are suspected of COVID-19. An individual without symptoms of COVID-19 and who is not shedding SARS-CoV-2 virus would expect to have a negative (not detected) result in this assay. Negative results should be treated as presumptive and, if inconsistent with clinical signs and symptoms or necessary for patient management, should be tested with an alternative molecular assay. Negative results do not preclude SARS-CoV-2 infection and should not be used as the sole basis for patient management decisions. Methodology: Isothermal Nucleic Acid Amplification Specimen Description .NASOPHARYNGEAL SWAB [facility] Flu A/B Ag Detectionon 10-04 Flu A Ag Detection Negative Normal [facility] Comment on above: Result Comment: for Influenza A Antigen Performed By: #### F LUABA #### [facility] [address] [place] [address] Store Product Demonstrator: Matthew Driscoll MD Flu B Ag Detection Negative Normal [facility] Comment on above: Result Comment: for Influenza B Antigen. Performed By: #### F LUABA #### [facility] [address] [place] [address] Store Product Demonstrator: Matthew Driscoll MD Rapid influenza A/B antigens on 10-04-2024 FLUAV Ag Ql (Unsp spec) Negative NEGATIVE [facility] Comment on above: for Influenza A Anti gen FLUBV Ag Ql (Unsp spec) Negative NEGATIVE [facility] Comment on above: for Influenza B Anti gen. [facility] [id number] 10-04-2024 SARS-CoV-2 (COVID-19) RNA TIM+probe Ql (Unsp spec) Not detected Normal [facility] Comment on above: Result Comment: Rapid NAAT: The specimen is NEGATIVE for SARS-CoV-2, the novel coronavirus associated with COVID-19. The ID NOW COVID-19 assay is designed to detect the virus that causes COVID-19 in patients with signs and symptoms of infection who are suspected of COVID-19. An individual without symptoms of COVID-19 and who is not shedding SARS-CoV-2 virus would expect to have a negative (not detected) result in this assay. Negative results should be treated as presumptive and, if inconsistent with clinical signs and symptoms or necessary for patient management, should be tested with an alternative molecular assay. Negative results do not preclude SARS-CoV-2 infection and should not be used as the sole basis for patient management decisions. Methodology: Isothermal Nucleic Acid Amplification Performed By: #### C OVRB #### [facility] [address] [place] [address] Store Product Demonstrator: Matthew Driscoll MD CBC with Auto Differentialon 08-28-2024 Basophils (Bld) [#/Vol] 0.02 10*3/uL [facility] Basophils/100 WBC (Bld) 0 % 0 - 2 % [facility] Eosinophils (Bld) [#/Vol] 0.09 10*3/uL [facility] Eosinophils/100 WBC (Bld) 1 % 0 - 5 % [facility] Erythrocyte distribution width (RBC) [Ratio] 13.0 % 12.1 - 15.2 % [facility] Hematocrit (Bld) [Volume fraction] 41.7 % 36.0 - 46.0 % [facility] Hemoglobin (Bld) [Mass/Vol] 15.0 g/dL 12.0 - 16.0 g/dL [facility] Immature granulocytes (Bld) [#/Vol] 0.02 10*3/uL [facility] Immature granulocytes/100 WBC (Bld) 0 % 0 - 5 % [facility] Interpretation and review of laboratory results Abnormal [facility] Lymphocytes/100 WBC (Bld) 33 % 15 - 40 % [facility] Lymphocytes/100 WBC (Bld) 3.26 % [facility] MCH (RBC) [Entitic mass] 28.5 pg 26.0 - 34.0 pg [facility] MCHC (RBC) [Mass/Vol] 36.0 g/dL 31.0 - 37.0 g/dL [facility] MCV (RBC) [Entitic vol] 79.3 fL Low 80.0 - 100.0 fL [facility] Monocytes/100 WBC (Bld) 6 % 4 - 8 % [facility] Monocytes/100 WBC (Bld) 0.55 % [facility] Neutrophils/100 WBC (Bld) 60 % 47 - 75 % [facility] Platelet mean volume (Bld) [Entitic vol] 9.9 fL 6.0 - 12.0 fL [facility] Platelets (Bld) [#/Vol] 277 10*3/uL [facility] RBC (Bld) [#/Vol] 5.26 10*6/uL High 4.00 - 5.2 0 m/uL [facility] Segmented neutrophils/100 WBC (Bld) 6.04 % [facility] WBC other (Bld) [#/Vol] 10.0 [facility] CBC with Diffon 08-28-2024 Abs. Basophil 0.02 k/uL Normal 0.00-0.20 [facility] Comment on above: Performed By: #### C P, CDP #### [facility] [address] [place] [address] Store Product Demonstrator: Matthew Driscoll MD Abs.Imm.Granulocyte 0.02 k/uL Normal 0.00-0.30 [facility] Comment on above: Performed By: #### C P, CDP #### [facility] [address] [place] [address] Store Product Demonstrator: Matthew Driscoll MD Abs.Neutrophil (Seg) 6.04 k/uL Normal 2.5-7.0 [facility] Comment on above: Performed By: #### C P, CDP #### [facility] [address] [place] [address] Store Product Demonstrator: Matthew Driscoll MD Basophils/100 WBC (Bld) 0 % Normal 0-2 [facility] Comment on above: Performed By: #### C P, CDP #### [facility] [address] [place] [id number] Store Product Demonstrator: Matthew Driscoll MD Eosinophils (Bld) [#/Vol] 0.09 10*3/uL Normal 0.00-0.40 [facility] Comment on above: Performed By: #### C P, CDP #### [facility] [address] [place] [address] Store Product Demonstrator: Matthew Driscoll MD Eosinophils/100 WBC (Bld) 1 % Normal 0-5 [facility] Comment on above: Performed By: #### C P, CDP #### [facility] [address] [place] [id number] Store Product Demonstrator: Matthew Driscoll MD Erythrocyte distribution width (RBC) [Ratio] 13.0 % Normal 12.1-15.2 [facility] Comment on above: Performed By: #### C P, CDP #### [facility] [address] [place] [id number] Store Product Demonstrator: Matthew Driscoll MD Hematocrit (Bld) [Volume fraction] 41.7 % Normal 36.0-46.0 [facility] Comment on above: Performed By: #### C P, CDP #### [facility] [address] [place] [id number] Store Product Demonstrator: Matthew Driscoll MD Hemoglobin (Bld) [Mass/Vol] 15.0 g/dL Normal 12.0-16.0 [facility] Comment on above: Performed By: #### C P, CDP #### [facility] [address] [place] [id number] Store Product Demonstrator: Matthew Driscoll MD Immature granulocytes/100 WBC (Bld) 0 % Normal 0-5 [facility] Comment on above: Performed By: #### C P, CDP #### [facility] [address] [place] [address] Store Product Demonstrator: Matthew Driscoll MD Lymphocytes (Bld) [#/Vol] 3.26 10*3/uL Normal 1.00-4.80 [facility] Comment on above: Performed By: #### C P, CDP #### [facility] [address] [place] [address] Store Product Demonstrator: Matthew Driscoll MD Lymphocytes/100 WBC (Bld) 33 % Normal 15-40 [facility] Comment on above: Performed By: #### C P, CDP #### [facility] [address] [place] [address] Store Product Demonstrator: Matthew Driscoll MD MCH (RBC) [Entitic mass] 28.5 pg Normal 26.0-34.0 [facility] Comment on above: Performed By: #### C P, CDP #### [facility] [address] [place] [address] Store Product Demonstrator: Matthew Driscoll MD MCHC (RBC) [Mass/Vol] 36.0 g/dL Normal 31.0-37.0 [facility] Comment on above: Performed By: #### C P, CDP #### [facility] [address] [place] [address] Store Product Demonstrator: Matthwe Driscoll MD MCV (RBC) [Entitic vol] 79.3 fL Low 80.0-100.0 [facility] Comment on above: Performed By: #### C P, CDP #### [facility] [address] [place] [address] Store Product Demonstrator: Matthew Driscoll MD Monocytes (Bld) [#/Vol] 0.55 10*3/uL Normal 0.00-1.00 [facility] Comment on above: Performed By: #### C P, CDP #### [facility] [address] [place] [address] Store Product Demonstrator: Matthew Driscoll MD Monocytes/100 WBC (Bld) 6 % Normal 4-8 [facility] Comment on above: Performed By: #### C P, CDP #### [facility] [address] [place] [address] Store Product Demonstrator: Matthew Driscoll MD Neutrophil (Seg) 60 % Normal 47-75 [facility] Comment on above: Performed By: #### C P, CDP #### [facility] [address] [place], [place] [phone] Store Product Demonstrator: Matthew Driscoll MD Platelet mean volume (Bld) [Entitic vol] 9.9 fL Normal 6.0-12.0 [facility] Comment on above: Performed By: #### C P, CDP #### [facility] [address] [place], [place] [phone] Store Product Demonstrator: Matthew Driscoll MD Platelets (Bld) [#/Vol] 277 10*3/uL Normal 140-450 [facility] Comment on above: Performed By: #### C P, CDP #### [facility] [address] [place] [address] Store Product Demonstrator: Matthew Driscoll MD RBC (Bld) [#/Vol] 5.26 10*6/uL High 4.00-5.20 [facility] Comment on above: Performed By: #### C P, CDP #### [facility] [address] [place] [address] ([phone]) Store Product Demonstrator: Matthew Driscoll MD WBC (Bld) [#/Vol] 10.0 10*3/uL Normal 3.5-11.0 [facility] Comment on above: Performed By: #### C P, CDP #### [facility] [address] [place], [place] [phone] Store Product Demonstrator: Matthew Driscoll MD Comp Metabolic Profon 2024 Albumin [Mass/Vol] 3.8 g/dL Normal 3.5-5.2 [facility] Comment on above: Performed By: #### C P, CDP #### [facility] [address] [place] [address] Store Product Demonstrator: Matthew Driscoll MD ALT [Catalytic activity/Vol] 17 U/L Normal 5-33 [facility] Comment on above: Performed By: #### C P, CDP #### [facility] [address] [place], [place] [phone] Store Product Demonstrator: Matthew Driscoll MD Anion gap [Moles/Vol] 16 mmol/L Normal 9-17 [facility] Comment on above: Performed By: #### C P, CDP #### [facility] [address] [place] [phone] Store Product Demonstrator: Matthew Driscoll MD AST [Catalytic activity/Vol] 12 U/L Normal <32 [facility] Comment on above: Performed By: #### C P, CDP #### [facility] [address] [place] [id number] Store Product Demonstrator: Matthew Driscoll MD Bilirubin [Mass/Vol] 0.6 mg/dL Normal 0.3-1.2 [facility] Comment on above: Performed By: #### C P, CDP #### [facility] [address] [place], [place] [id number] Store Product Demonstrator: Matthew Driscoll MD Calcium [Mass/Vol] 9.8 mg/dL Normal 8.6-10.[address] [facility] Comment on above: Performed By: #### C P, CDP #### [facility] [address] [place], [place] [id number] Store Product Demonstrator: Matthew Driscoll MD Chloride [Moles/Vol] 87 mmol/L Low 98-107 [facility] Comment on above: Performed By: #### C P, CDP #### [facility] [address] [place], [place] [id number] Store Product Demonstrator: Matthew Driscoll MD CO2 [Moles/Vol] 22 mmol/L Normal 20-31 [facility] Comment on above: Performed By: #### C P, CDP #### [facility] [address] [place], [place] [id number] Store Product Demonstrator: Matthew Driscoll MD Creatinine [Mass/Vol] 0.6 mg/dL Normal 0.5-0.9 [facility] Comment on above: Performed By: #### C P, CDP #### [facility] [address] [place], [place] [phone] Store Product Demonstrator: Matthew Driscoll MD Glucose [Mass/Vol] 579 mg/dL Critically high 70-99 B on [facility] Comment on above: Performed By: #### C P, CDP #### [facility] [address] [place] [address] Store Product Demonstrator: Matthew Driscoll MD Potassium [Moles/Vol] 4.4 mmol/L Normal 3.7-5.3 [facility] Comment on above: Performed By: #### C P, CDP #### [facility] [address] [place], [place] [phone] Store Product Demonstrator: Matthew Driscoll MD Protein [Mass/Vol] 7.5 g/dL Normal 6.4-8.[address] [facility] Comment on above: Performed By: #### C P, CDP #### [facility] [address] [place], [place] [phone] Store Product Demonstrator: Matthew Driscoll MD Sodium [Moles/Vol] 125 mmol/L Low 135-144 [facility] Comment on above: Performed By: #### C P, CDP #### [facility] [address] [place] [address] Store Product Demonstrator: Matthew Driscoll MD Urea nitrogen [Mass/Vol] 21 mg/dL High 6-20 [facility] Comment on above: Performed By: #### C P, CDP #### [facility] [address] [place] [address] Store Product Demonstrator: Matthew Driscoll MD Alkaline Phos 173 U/L High 35-104 [facility] Comment on above: Performed By: #### C P, CDP #### [facility] [address] [place] [address] Store Product Demonstrator: Matthew Driscoll MD BUN/CRE Ratio 35 High 9-20 [facility] Comment on above: Performed By: #### C P, CDP #### [facility] [address] [place] [address] Store Product Demonstrator: Matthew Driscoll MD GFR/1.73 sq M.predicted among non-blacks MDRD (S/P/Bld) [Vol rate/Area] mL/min/{1.73_m2} Normal >60 [facility] Comment on above: Result Comment: These results [...] Performed By: #### C P, CDP #### [facility] [address] [place] [address] Store Product Demonstrator: Matthew Driscoll MD Comprehensive Metabolic Pane [facility] 08-28-2024 ALP [Catalytic activity/Vol] 173 U/L High 35 - 104 U/L [facility] Est, Glom Filt Rate - PINF [facility] Comment on above: These results are not intended for use in patients <18 years of age. eGFR results are calculated without a race factor using the 1 CKD-EPI equation. Careful clinical correlation is recommended, particularly when comparing to results calculated using previous equations. The CKD-EPI equation is less accurate in patients with extremes of muscle mass, extra-renal metabolism of creatine, excessive creatine ingestion, or following therapy that affects renal tubular secretion. Interpretation and review of laboratory results Abnormal [facility] Urea nitrogen/Creatinine [Mass ratio] 35 mg/mg High 9 - 20 [facility] Glucose, Whole Bloodon 08-28 Glucose [Mass/Vol] 316 mg/dL High 65 - 99 mg/dL [facility] Interpretation and review of laboratory results Abnormal [facility] Glucose [Mass/Vol] 565 mg/dL Critically high 65 - 99 mg/d L [facility] Interpretation and review of laboratory results Abnormal [facility] Glucose,Whole Bloodon 2024 Glucose [Mass/Vol] 316 mg/dL High 65-99 [facility] Glucose [Mass/Vol] 565 mg/dL Critically high 65-99 [facility] POCT glucoseon 08-28-2024 Glucose [Mass/Vol] 316 mg/dL [facility] Interpretation and review of laboratory results Normal [facility] QC OK? yes [facility] POCT glucoseOrdered By: Shazia Trujillo on 08-28-2024 Glucose [Mass/Vol] 565 mg/dL [facility] Interpretation and review of laboratory results Normal [facility] QC [place]? yes [facility] Venous Bld Gas,POCon 025 FIO2 21.0 Normal [facility] HCO3 (Bld) [Moles/Vol] 23.5 mmol/L Normal 22.0-29.0 [facility] Oxygen saturation in Blood 95.0 % High 60.0-85.0 [facility] pCO2, Venous 33.2 mm Hg Low 41.0-51.0 [facility] pH,Venous 7.457 High 7.320-7.430 [facility] pO2, Venous 70.8 mm Hg High 30.0-50.0 [facility] Positive Base Excess (calc) 0.4 mmol/L Normal 0.0-3.0 [facility] Venous Blood Gas, POCon 08-03 FIO2 21.0 [facility] HCO3 (Bld) [Moles/Vol] 23.5 mmol/L 22.0 - 29.0 mmol/L [facility] Interpretation and review of laboratory results Abnormal [facility] Oxygen saturation in Blood 95.0 % High 60.0 - 85.0 % [facility] pCO2, Adria 33.2 Low [facility] pH, Adria 7.457 High 7.320 - 7.430 [facility] PO2, Adria 70.8 High [facility] Positive Base Excess, Adria 0.4 mmol/L 0.0 - 3.0 mmol/L [facility] Office Visiton 02-05-2023 Follow-up visit [id number] Escobar Ortega 1980 F Date Provider Department Center 02/05/2023 3848-FELIPA ROGERS ZE Adorno Family History Problem Relation Age of Onset Diabetes Father Coronary artery disease Father Kidney disease Father Family Status - Relation Status Age at Father Level of Service:46161 NE OFFICE/OUTPATIENT [facility] 30-44 MINUTES Normal [facility] Cardiovascular Reporton 01-01 Cardiovascular Report [id number] 30#1.00CD:127 [facility] Consent for PICC lineon 01-01 Consent for PICC line [id number] 13#1.00CD:127 Normal [facility] Discharge Instructionson Discharge Instructions [id number] #1.00CD:127 [facility] Pre-Certification Formon Pre-Certification Form [id number] 2#1.00CD:127 [facility] BMPon 01-23-2023 Anion gap [Moles/Vol] 12 mmol/L Normal 01-15 [facility] Comment on above: Performed By: #### 2 352767, 6294027, 64026007, 670975903, 8903880, 3851326 #### [facility] [address] [place] [address] Calcium [Mass/Vol] 8.2 mg/dL Low 8.9-11.1 [facility] Comment on above: Performed By: #### 2 512473, 4881539, 20341620, 626355086, 6334030, 1561418 #### [facility] [address] [place] [address] Chloride [Moles/Vol] 108 mmol/L Normal 101-111 [facility] Comment on above: Performed By: #### 2 855194, 8376562, 19625993, 815510974, 2227446, 0810752 #### [facility] [address] [place] [address] CO2 [Moles/Vol] 19 mmol/L Low 21-31 [facility] Comment on above: Performed By: #### 2 523257, 6001810, 61029645, 355810253, 4088404, 3990397 #### [facility] [address] [place] [address] Creatinine [Mass/Vol] 0.5 mg/dL Normal 0.5-1.3 [facility] Comment on above: Performed By: #### 2 596022, 6995342, 35559133, 962601683, 8740090, 8134398 #### [facility] [address] [place] [address] Glucose [Mass/Vol] 183 mg/dL Normal 55-199 [facility] Comment on above: Result Comment: If t his glucose result represents a fasting glucose, interpretation should refer to the following reference range: 55-99 mg/dL Performed By: #### 2 494257, 1997653, 36730224, 150006991, 7081548, 8533144 #### [facility] [address] [place] [address] Potassium [Moles/Vol] 3.8 mmol/L Normal 3.5-5.3 [facility] Comment on above: Performed By: #### 2 316824, 7927143, 28319167, 988925109, 0305787, 1586807 #### [facility] [address] [place] [address] Sodium [Moles/Vol] 135 mmol/L Normal 135-145 [facility] Comment on above: Performed By: #### 2 129225, 8376302, 72878066, 803989489, 4147639, 2056034 #### [facility] [address] [place] [address] Urea nitrogen [Mass/Vol] 11 mg/dL Normal 5-21 [facility] Comment on above: Performed By: #### 2 082827, 8748814, 78299348, 179900165, 5224351, 4742228 #### [facility] [address] [place] [address] Urea nitrogen/Creatinine [Mass ratio] 22 No Units High 10-20 [facility] Comment on above: Performed By: #### 2 622823, 0312033, 95974028, 477133534, 4876801, 0208570 #### [facility] [address] [place] [address] CBC w/Indiceson 01-23-2023 Erythrocyte distribution width (RBC) [Ratio] 14.2 % Normal 10.9-14.2 [facility] Comment on above: Performed By: #### 2 721038, 8730557, 56306884, 267917429, 2882673, 9558408 #### [facility] [address] [place] [address] Hematocrit (Bld) [Volume fraction] 38.3 % Normal 34.0-46.0 [facility] Comment on above: Performed By: #### 2 900296, 6124617, 05009034, 219721003, 0466992, 5340168 #### [facility] [address] [place] [address] Hemoglobin (Bld) [Mass/Vol] 13.3 g/dL Normal 12.0-16.0 [facility] Comment on above: Performed By: #### 2 981939, 4415638, 86350331, 587989781, 6435252, 2100371 #### [facility] [address] [place] [address] MCH (RBC) [Entitic mass] 28.9 pg Normal 27.0-34.0 [facility] Comment on above: Performed By: #### 2 859262, 9045757, 11736387, 535630790, 8573641, 1746808 #### [facility] [address] [place], [place] [address] MCHC (RBC) [Mass/Vol] 34.8 g/dL Normal 31.4-36.0 [facility] Comment on above: Performed By: #### 2 949799, 9710015, 53700689, 044984700, 5176660, 3623168 #### [facility] [address] [place] [address] MCV (RBC) [Entitic vol] 83.1 fL Normal 80.0-100.0 [facility] Comment on above: Performed By: #### 2 223681, 5852979, 96684553, 147538405, 3102577, 4691222 #### [facility] [address] [place] [address] Platelet mean volume (Bld) [Entitic vol] 8.6 fL Normal 6.4-10.8 [facility] Comment on above: Performed By: #### 2 101265, 5676461, 52993713, 932100244, 1423913, 0108404 #### [facility] [address] [place] [address] Platelets (Bld) [#/Vol] 237.0 E9/L Normal 150.0-500.0 [facility] Comment on above: Performed By: #### 2 968632, 4958990, 18878716, 554111282, 0356439, 7805128 #### [facility] [address] [place] [address] RBC (Bld) [#/Vol] 4.6 E12/L Normal 4.3-5.9 [facility] Comment on above: Performed By: #### 2 618602, 3638084, 00451074, 458628378, 9742442, 9925046 #### [facility] [address] [place] [address] WBC corrected for nucl RBC Auto (Bld) [#/Vol] 9.5 E9/L Normal 4.0-11.0 [facility] Comment on above: Performed By: #### 2 876630, 6220263, 58630610, 013252364, 0870909, 6510595 #### [facility] [address] [place] [address] CHEMISTRYOrdered By: Lab ROP User on 01-23-2023 Glucose [Mass/Vol] 255 mg/dL High 55 - 99 mg/dL FTM C POC Subsection Comment on above: Result Comment: Marino paulson RN/ POC Device SN [id number] Invalid Interpretation Code [facility] POC Subsection POC User ID [id number] Invalid Interpretation Code FT POC Subsection POC Username LESLY PARR Invalid Interpretation Code FT POC Subsection Glucose [Mass/Vol] 192 mg/dL High 55 - 99 mg/dL F[facility] C POC Subsection Comment on above: Result Comment: Yari jennifer Meter POC Device SN [id number] Invalid Interpretation Code [facility] POC Subsection POC User ID [id number] Invalid Interpretation Code FT POC Subsection POC [...] 0.5 mg/dL Normal 0.5 - 1.3 mg/dL [facility] Remisol GFR/1.73 sq M.predicted among non-blacks MDRD (S/P/Bld) [Vol rate/Area] 118 mL/min/1.73 m2 Normal >=59mL/min/1. 73 m2 [facility] [place] S Glucose [Mass/Vol] 183 mg/dL Normal 55 - 199 mg/dL [facility] Magnesium [Mass/Vol] 1.5 mg/dL Normal 1.3 - 2 .4 mg/dL [facility] Potassium [Moles/Vol] 3.8 mmol/L Normal 3.5 - 5.3 mmol/L [facility] Sodium [Moles/Vol] 135 mmol/L Normal 135 - 145 mmol/L [facility] Troponin I.cardiac [Mass/Vol] 1304.50 pg/mL Invalid Interpretation Code 10.10 - 27.10 pg/mL [facility] Comment on above: Result Comment: Crit ical Result verified by previous result\ Critical Result [id number] Called to MICHELE HERRMANN at 3S by HARDEEP HANSEN and read back for confirmation at 01/23/2023 07:42:43 Urea nitrogen [Mass/Vol] 11 mg/dL Normal 5 - 21 mg/dL [facility] Remisol Urea nitrogen/Creatinine [Mass ratio] 22 mg/mg High 10 - 20 [facility] Remisol Capillary Glucose POCon 01-01 Glucose [Mass/Vol] 255 mg/dL High 55-99 [facility] Comment on above: Result Comment: Marino paulson RN/ Performed By: #### 2 036373, 2985302, 39357353, 705689573, 6459747, 6028795 #### [facility] [address] [place] [address] Glucose [Mass/Vol] 192 mg/dL High 55-99 [facility] Comment on above: Result Comment: Yari jennifer Meter Performed By: #### 2 [id number] ####[facility] [address] [place] [address] Consultation Noteon 01-24-20 23 Consultation Note Chief [...] deep vein thrombosis (DVT) prophylaxis (Z79.899: 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 (current) drug therapy) Orders: ticagrelor, 180 mg [...] tab(s), Or (more content not included)... Normal [facility] Comment on above: Result Comment: Elec tronically Signed By: Kriss HAIDER, Abhishek Hagan\.br\Date and Time Signed: 01/22/23 22:12 EDT Discharge Note-Nursingon Discharge Note-Nursing Patient prescribed Brillinta for discharge. [facility] preferred pharmacy [facility] which does not have Brillinta in stock until Wednesday. This RN asked patient to switch pharmacy for this medication so she could bean picker today. Patient refuses to switch pharmacies. She states her sister will not take her to any other pharmacy to pick this up. Per Dr. Singh, ok to pull 4 Brillinta to send home with patient to have enough until she can bean picker the medication from her pharmacy. Normal [facility] HEMATOLOGYOrdered By: Cristin Ibarra on 01-23-2023 Erythrocyte distribution width (RBC) [Ratio] 14.2 % Normal 10.9 - 14.2 % [facility] Hematocrit (Bld) [Volume fraction] 38.3 % Normal 34.0 - 46.0 % [facility] Hemoglobin (Bld) [Mass/Vol] 13.3 g/dL Normal 12.0 - 16.0 gm/dL [facility] MCH (RBC) [Entitic mass] 28.9 pg [...] 4.6 E12/L Normal 4.3 - 5.9 E12/L [facility] WBC corrected for nucl RBC Auto (Bld) [#/Vol] 9.5 E9/L Normal 4.0 - 11.0 E9/L [facility] Inpatient Clinical Summaryon 01-23-2023 Inpatient Clinical Summary [place] [id number] Clinical Summary Person Information: Name: ESCOBAR ORTEGA Age: 43 Years : 1980 Sex: Female PCP: Gentry Carrillo MD Marital Status: Phone: [phone] Race: White Ethnicity: Non- or Language: Iraqi Visit Id: Visit Reason: Chest pain; CHEST PAIN Speciality: Acuity: Enc Type: Observation Med Service: Medical Arrival: 01/21/2023 16:19:22 Discharge: Dispo Type: Admitted as IP to this Hosp Address: [address] [place] [address] [address] [phone] Provider Notes: Diagnosis: 1:NSTEMI (non-ST elevation myocardial [...] Refills: 1. Care Team Members: Attending Physician: GAGE HAIDER, Ellie Consulting Physician: Zhang HAIDER, Vladimir Monterroso MD, Abhishek Hagan Referring Physician: Follow up: With: Address: When: [place] [address] Business (1) Within 2 weeks Comments: Call for followup appointment With: Address: When: Gentry Carrillo [address], [place] [address] Business (1) 01/27/2023 9:30 AM Patient Education Information: CV - Cardiovascular PCI Discharge Instructions (CUSTOM) Normal [facility] Inpatient Patient Summaryon 01-23-2023 Inpatient Patient Summary ESCOBAR ORTEGA :1980 Visit Date:01/21/2023 Inpatient Discharge Instructions Your Care Team Admitting Physician - GAGE HAIDER, Ellie Consulting Physician - Kriss HAIDER, Abhishek Holcomb MD, Vladimir Sparks Reason for Your Visit chest pain radiating [...] When: 01/27/2023 09:30 AM EDT Where: [address] [place] [address]- Business (1) Follow Up with Abhishek Monterroso When: Within 2 weeks Comments: Call for followup appointment Where: [address] [place] [address]- Business (1) Medications What How Much When Why Instructions Next Dose New aspirin (aspirin 81 mg Oral EC Tab) 1 Tablets By Mouth Every day Refills: 1 Pickup at [facility] #[id number] 01/24 New atorvastatin (Lipitor 80 mg Tab) 1 Tablets By Mouth Every day Refills: 1 Pickup at [facility] #[id number] 01/24 New metoprolol (Metoprolol tartrate 25 mg Tab) 1 Tablets By Mouth 2 times a day Refills: 1 Pickup at [facility] #[id number] 01/23 9:00pm New nitroglycerin (nitroglycerin 0.4 mg sublingual Tab) 1 Tablets Sublingual Every 5 minutes as needed for Chest pain not to exceed 3 doses/ 15 min--if pain persists, seek medical attention Pickup at [facility] #[id number] New ticagrelor (Brilinta (ticagrelor) 90 mg oral tablet) 1 Tablets By Mouth 2 times a day Chest pain Elevated troponin NSTEMI (non-ST elevation myocardial infarction) Hypertensive urgency Right shoulder pain Refills: 1 Pickup at [facility] #[id number] 01/23 9:00pm Changed insulin glargine (Lantus insulin) [...] times a day 01/23 9:00pm Pharmacy Information [facility] #[id number]: [address] [place], [place] [id number] [phone] What How Much When Comments Stop Taking naproxen (naproxen sodium 550 mg Tab) 1 Tablets By Mouth 2 times a day Test Results CBC BMP WBC: 9.5 E9/L (01/23/23 06:23:00) Glucose Lvl: 183 mg/dL (01/23/23 06:23:00) RBC: 4.6 E12/L (01/23/23 06:23:00) BUN: 11 mg/dL (01/23/23 06:23:00) HGB: 13.3 gm/dL (01/23/23 06:23:00) Creatinine: 0.5 mg/ (more content not included)... Normal [facility] Inpatient Patient Summary [place] [id number] Patient Discharge Instructions PERSON INFORMATION Name: ESCOBAR ORTGEA Date of : 1980 Current Date: 01/23/2023 [...] Follow up: With: Address: When: Abhishek Monterroso [address] [place], [place] [id number] Business (1) Within 2 weeks Comments: Call for followup appointment With: Address: When: Gentry Reederjessica [address] [place] [address], [address] [place] [id number] Business (1) 01/27/2023 9:30 AM In the [...] day. Comment: MEDICATIO (more content not included)... Normal [facility] Interdisciplinary Note - Lemuel e Manageron 01-23-2023 Interdisciplinary Note - Skull Grinder Pt is awake and alert in bed, [...] boyfriend and her sister will transport at [place]. . PCP verified and insurance information reviewed and DME discussed. Contact information provided and white board updated. [facility] Comment on above: Result Comment: Elec tronically Signed By: Todd CASEY, Jeanie\.brenna\Date and Time Signed: 01/23/23 12:44 EDT Interdisciplinary Note - Navarro singon 01-23-2023 Interdisciplinary Note - Nursing Patient prescribed Brillinta for discharge. [facility] preferred pharmacy[facility], will not have any of this medication until Wednesday. Patient refuses to switch pharmacies at this time to bean picker enough to last her through the weekend. She states her sister will not take her to any other pharmacy. Per Dr. Singh, ok to pull 4 doses of Brillinta 90mg from RX station to send home with patient until she can bean picker medication on Wednesday. Education provided to patient on importance of taking Brillinta exactly how it is prescribed. Informed patient that if she cannot get the rest of her Brillinta on Wednesday for any reason to contact the block feeder or hospital supervisor stave cutting per Dr. Singh. [facility] Magnesiumon 01-23-2023 Magnesium [Mass/Vol] 1.5 mg/dL Normal 1.3-2.4 [facility] Comment on above: Performed By: #### 2 192022, 0895623, 73458566, 210118118, 2234499, 8498310 #### [facility] [address] [place] [address] Monitor Recordon 01-23-2023 Monitor Record [id number] 0#1.00CD:127 Normal [facility] Monitor Record [id number] 2#1.00CD:127 Normal [facility] Monitor Record [id number] 5#1.00CD:127 Normal [facility] Monitor Record [id number] 7#1.00CD:127 Normal [facility] Operative Reporton 3 Operative Report Indication [...] patient will additionally be counseled by the Development Mechanic team and in follow-up. Complications None Technique Following full and informed consent the patient was brought to the Development Mechanic where sterile prep and drape were administered in usual fashion. Anesthesia was obtained in the right wrist with lidocaine after administration of conscious sedation. A 5/6 slender Terumo sheath was placed in the right radial artery without complication. Nitroglycerin and nicardipine were given via the sheath and heparin was given intravenously. A 5 Sami JACKE catheter was advanced and selectively engaged in the left main coronary artery and right coronary artery each, where selective injections were performed. A pigtail catheter was placed in the left ventricle where hemodynamic measurements the left ventricle were made and a bolus was given for left ventriculography. A pullback gradient was obtained. A 6 Sami jl3.5 catheter was advanced and selectively engaged [...] end of the procedure without complication. Normal [facility] Comment on above: Result Comment: Elec [...] She is medically stable for discharge and block feeder cleared her. We will give for Brilinta from here in order to get her through the weekend and prevent in-stent rethrombosis and potential complication. Nurse will give for medications which will cover patient until Wednesday morning and if any issue patient is to call supervisor stave cutting or block feeder to get it filled somewhere else. Normal [facility] Comment on above: Result Comment: Elec tronically Signed By: MELINDA HAIDER, Joe Aceves\.br\Date and Time Signed: 01/23/23 16:12 EDT Progress [...] Lipitor, lisinopril, Lopressor. Treated with Lovenox. Ordered: [facility] Care/Day Moderate 35 Minutes 89184 2. Coronary artery disease (I25.10: Atherosclerotic heart disease of [place] coronary artery without angina pectoris) As seen on cardiac catheterization. Patient has coronary artery disease with mid left circumflex artery occlusion requiring 1 drug-eluting stent placement on 01/22/2023. Continue on aspirin, Brilinta, Lipitor, lisinopril and Lopressor. Ordered: [facility] Hospital Care/Day Moderate 35 Minutes 31831 3. Chest pain (R07.9: Chest pain, unspecified) Secondary to above. Resolved. Ordered: [facility] Hospital Care/Day Moderate 35 Minutes 42587 4. Elevated troponin (R77.8: Other specified abnormalities of plasma proteins) Secondary to above. Resolved. Ordered: [facility] Hospital Care/Day Moderate 35 Minutes 22824 5. Hypertensive urgency (I16.0: Hypertensive urgency) Resolved. Continue on lisinopril and metoprolol. Ordered: [facility] Hospital Care/Day Moderate 35 Minutes 41929 6. Right shoulder pain (M25.511: Pain in right shoulder) Secondary to above #1. With atypical presentation. Ordered: [facility] Hospital Care/Day Moderate 35 Minutes 68856 7. Leukocytosis (D72.829: Elevated white blood cell [...] deep vein thrombosis (DVT) prophylaxis (Z79.899: 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 (current) drug therapy) SCDs. Disposition: Home either today or in a.m. pending cardiology final recommendations. I discussed the diagnosis and plan of care with the patient at the bedside. Moderate level of MDM based on addressing above issues. This documentation was transcribed using voice recognition software. Several attempts were made to ensure accuracy. However inadvertent computerized tractor drill operator errors may be present. Ellie Obando. Hospitalist. [...] -- 0 (more content not included)... Normal [facility] Comment on above: Result Comment: Elec tronically Signed By: GAGE HAIDER, Ellie\.br\Date and Time Signed: 01/23/23 09:13 EDT Troponinon 01-23-2023 Troponin I.cardiac [Mass/Vol] 1304.50 pg/mL Abnormal 10.10-27.10 [facility] Comment on above: Result Comment: Crit ical [...] Sensitivity Troponin I Instructions For Use, Son [place], March 2018) Performed By: #### 2 581765, 4424370, 99413335, 339872310, 5044589, 2778897 #### [facility] [address] [place] [address] eGFRon 01-23-2023 GFR/1.73 sq M.predicted among non-blacks MDRD (S/P/Bld) [Vol rate/Area] 118 mL/min/1.73 m2 Normal >=59 [facility] Comment on above: Order Comment: Order added by Discern Expert. Result Comment: Child Support Specialist reji kidney disease could be indicated at eGFR's of less than 60 mL/min/1.73m2. Kidney failure is indicated at less than 15 mL/min/1.73m2. Performed By: #### 2 727867, 0467419, 16323975, 051089080, 0135473, 2271515 #### [facility] [address] [place] [address] Auto Diffon 01-22-2023 Basophils/100 WBC (Bld) 0.4 % Normal 0.0-2.0 [facility] Comment on above: Order Comment: Order Added by Discern Expert. Performed By: #### 2 499926, 1533003, 59819661, 502829864, 7908682, 3992665 #### [facility] [address] [place] [address] Basophils/Leukocytes Auto (Bld) [Pure # fraction] 0.0 E9/L Normal 0.0-0.2 [facility] Comment on above: Order Comment: Order Added by Discern Expert. Performed By: #### 2 111108, 2191748, 77695087, 078114506, 7022982, 1155741 #### [facility] [address] [place] [address] Eosinophils/100 WBC (Bld) 0.2 % Normal 0.0-8.0 [facility] Comment on above: Order Comment: Order Added by Discern Expert. Performed By: #### 2 425931, 2478609, 79035367, 228069864, 3216856, 1522742 #### [facility] [address] [place] [address] Eosinophils/Leukocyte s Auto (Bld) [Pure # fraction] 0.0 E9/L Normal 0.0-0.5 [facility] Comment on above: Order Comment: Order Added by Discern Expert. Performed By: #### 2 815933, 8832422, 78535738, 796854331, 3893030, 2625465 #### [facility] [address] [place] [address] Lymphocytes/100 WBC (Bld) 24.9 % Normal 14.0-50.0 [facility] Comment on above: Order Comment: Order Added by Lupe Expert. Performed By: #### 2 265776, 5487076, 91837489, 532698401, 6792653, 2217101 #### [facility] [address] [place] [address] Lymphocytes/Leukocyte s Auto (Bld) [Pure # fraction] 2.6 E9/L Normal 1.0-4.0 [facility] Comment on above: Order Comment: Order Added by Lupe Expert. Performed By: #### 2 790666, 3479434, 72550540, 518917472, 8002400, 1151936 #### [facility] [address] [place] [address] Monocytes/100 WBC (Bld) 4.6 % Normal 4.0-14.0 [facility] Comment on above: Order Comment: Order Added by Lupe Expert. Performed By: #### 2 349988, 0736749, 96712060, 868443836, 0298788, 9962637 #### [facility] [address] [place] [address] Monocytes/Leukocytes Auto (Bld) [Pure # fraction] 0.5 E9/L Normal 0.2-1.0 [facility] Comment on above: Order Comment: Order Added by Lupe Expert. Performed By: #### 2 957929, 5173178, 88905773, 298042214, 8142005, 0734927 #### [facility] [address] [place] [address] Neutrophils/100 WBC (Bld) 69.9 % Normal 36.0-75.0 [facility] Comment on above: Order Comment: Order Added by Discern Expert. Performed By: #### 2 162716, 2453335, 34220953, 617530335, 3446113, 5010457 #### [facility] [address] [place] [address] Neutrophils/Leukocyte s Auto (Bld) [Pure # fraction] 7.4 E9/L Normal 2.0-7.5 [facility] Comment on above: Order Comment: Order Added by Discern Expert. Performed By: #### 2 194064, 2560846, 49348860, 508129859, 8087604, 3968645 #### [facility] [address] [place] [address] BMPon 01-22-2023 Anion gap [Moles/Vol] 5 mmol/L Low 6-16 [facility] Comment on above: Performed By: #### 2 221012, 6326479, 98427179, 481555064, 3532400, 1865573 #### [facility] [address] [place] [address] Calcium [Mass/Vol] 8.0 mg/dL Low 8.9-11.1 [facility] Comment on above: Performed By: #### 2 590758, 7502161, 18628439, 414990552, 3034779, 0782098 #### [facility] [address] [place] [address] Chloride [Moles/Vol] 107 mmol/L Normal 101-[address] [facility] Comment on above: Performed By: #### 2 172149, 4512881, 43627266, 841526124, 2837145, 8852251 #### [facility] [address] [place] [address] CO2 [Moles/Vol] 23 mmol/L Normal 21-31 [facility] [facility] Comment on above: Performed By: #### 2 440277, 3940189, 27677652, 291860259, 4640797, 4838258 #### [facility] [address] [place] [address] Creatinine [Mass/Vol] 0.6 mg/dL Normal 0.5-1.3 [facility] Comment on above: Performed By: #### 2 200181, 6046180, 58251537, 764551893, 9599626, 4093449 #### [facility] [address] [place] [address] Glucose [Mass/Vol] 293 mg/dL High 55-199 [facility] Comment on above: Result Comment: If t his glucose result represents a fasting glucose, interpretation should refer to the following reference range: 55-99 mg/dL Performed By: #### 2 780820, 8578062, 49968970, 799960532, 2564684, 2084271 #### [facility] [address] [place] [address] Potassium [Moles/Vol] 4.0 mmol/L Normal 3.5-5.3 [facility] Comment on above: Performed By: #### 2 034330, 3364029, 49976865, 841537606, 5153111, 6791549 #### [facility] [address] [place] [address] Sodium [Moles/Vol] 131 mmol/L Low 135-145 [facility] Comment on above: Performed By: #### 2 597575, 2876386, 69128733, 400744923, 9337810, 4905098 #### [facility] [address] [place] [address] Urea nitrogen [Mass/Vol] 20 mg/dL Normal 5-21 [facility] Comment on above: Performed By: #### 2 997399, 5128365, 62884054, 422414734, 5680231, 7891708 #### [facility] [address] [place] [address] Urea nitrogen/Creatinine [Mass ratio] 33 No Units High 10-20 [facility] Comment on above: Performed By: #### 2 163063, 1176983, 35186535, 125238833, 0029529, 3610387 #### [facility] [address] [place] [address] CBC w/ Auto Diffon 3 Erythrocyte distribution width (RBC) [Ratio] 14.0 % Normal 10.9-14.2 [facility] Comment on above: Performed By: #### 2 070097, 2244554, 03725217, 821700086, 1839781, 6458205 #### [facility] [address] [place] [address] Hematocrit (Bld) [Volume fraction] 35.5 % Normal 34.0-46.0 [facility] Comment on above: Performed By: #### 2 184037, 9865776, 57930726, 521632581, 1028276, 2047069 #### [facility] [address] [place] [address] Hemoglobin (Bld) [Mass/Vol] 12.5 g/dL Normal 12.0-16.0 [facility] Comment on above: Performed By: #### 2 385528, 7222623, 29039216, 397703320, 8429943, 7557290 #### [facility] [address] [place] [address] MCH (RBC) [Entitic mass] 28.6 pg Normal 27.0-34.0 [facility] Comment on above: Performed By: #### 2 580750, 3203312, 33524231, 670852462, 2616535, 0089716 #### [facility] [address] [place] [address] MCHC (RBC) [Mass/Vol] 35.1 g/dL Normal 31.4-36.0 [facility] Comment on above: Performed By: #### 2 338212, 2673184, 78209248, 966744790, 4937472, 6617102 #### [facility] [address] [place] [address] MCV (RBC) [Entitic vol] 81.5 fL Normal 80.0-100.0 [facility] Comment on above: Performed By: #### 2 077493, 4189601, 41763877, 844533113, 9666822, 9587759 #### [facility] [address] [place] [address] Platelet mean volume (Bld) [Entitic vol] 8.9 fL Normal 6.4-10.8 [facility] Comment on above: Performed By: #### 2 484523, 4346512, 53642625, 807637751, 6779260, 4913624 #### [facility] [address] [place] [address] Platelets (Bld) [#/Vol] 246.0 E9/L Normal 150.0-500.0 [facility] Comment on above: Performed By: #### 2 590998, 7653790, 97013569, 051021049, 7045647, 7620508 #### [facility] [address] [place] [address] RBC (Bld) [#/Vol] 4.4 E12/L Normal 4.3-5.9 [facility] Comment on above: Performed By: #### 2 019079, 2308166, 04590439, 993280182, 2571064, 3844639 #### [facility] [address] [place] [address] WBC corrected for nucl RBC Auto (Bld) [#/Vol] 10.6 E9/L Normal 4.0-11.0 [facility] Comment on above: Performed By: #### 2 747777, 2571164, 62946557, 315324764, 7429030, 0226779 #### [facility] [address] [place] [address] CHEMISTRYOrdered By: Lab ROP User on 01-22-2023 Glucose [Mass/Vol] 378 mg/dL High 55 - 99 mg/dL FTM C POC Subsection Comment on above: Result Comment: Marino paulson RN/ POC Device SN [id number] Invalid Interpretation Code [facility] POC Subsection POC User ID [id number] Invalid Interpretation Code [facility] POC Subsection POC Username KOBI SINGH Invalid Interpretation Code FT POC Subsection CHEMISTRYOrdered By: Stella Lisa on [...] HDL [Mass/Vol] 35 mg/dL Invalid Interpretation Code [facility] Remisol Cholesterol in LDL [Mass/Vol] 115 mg/dL Normal <=129mg/dL [facility] Remisol Cholesterol in VLDL [Mass/Vol] 60 mg/dL High 7 - 40 mg/dL [facility] Remisol CO2 [Moles/Vol] 23 mmol/L Normal 21 - 31 mmol/L [facility]isol Creatinine [Mass/Vol] 0.6 mg/dL Normal 0.5 - 1.3 mg/dL [facility] Remisol Glucose [Mass/Vol] 293 mg/dL High 55 - 199 mg/dL [facility] Remisol Potassium [Moles/Vol] 4.0 mmol/L Normal 3.5 - 5.3 mmol/L [facility]isol Sodium [Moles/Vol] 131 mmol/L Low 135 - 145 mmol/L [facility]isol Triglyceride [Mass/Vol] 300 mg/dL High <=149mg/dL [facility]isol Urea nitrogen [Mass/Vol] 20 mg/dL Normal 5 - 21 mg/dL [facility] Remisol Urea nitrogen/Creatinine [Mass ratio] 33 mg/mg High 10 - 20 [facility] CHEMISTRYOrdered By: SYSTEM SYSTEM on 01-22-2023 GFR/1.73 sq M.predicted among non-blacks MDRD (S/P/Bld) [Vol rate/Area] 113 mL/min/1.73 m2 Normal >=59mL/min/1. 73 m2 [facility] [place] S Troponin I.cardiac [Mass/Vol] 445.10 pg/mL Invalid Interpretation Code 10.10 - 27.10 pg/mL [facility] Comment on above: Result Comment: Crit ical Result verified by previous result\ Critical Result [id number]:[id number] Called to ROSSY MOE at 3N by VERONIQUE REID and read back for confirmation at 01/22/2023 01:58:36 CHEMISTRYOrdered By: Christiano Clay on 01-22-2023 HbA1c (Bld) [Mass fraction] 11.1 % High <=5.9% [facility] ChemAutoSS Capillary Glucose POCon 01-01 Glucose [Mass/Vol] 378 mg/dL High 55-99 [facility] Comment on above: Result Comment: Marino NEWBY Performed By: #### 2 [id number] ####[facility] [address] [place] [address] Glucose [Mass/Vol] 245 mg/dL High 55-99 [facility] Comment on above: Result Comment: Marino NEWBY Performed By: #### 2 049791, 1611614, 73119171, 385854934, 4825152, 2674815 #### [facility] [address] [place] [address] Glucose [Mass/Vol] 268 mg/dL High 55-99 [facility] Comment on above: Result Comment: Marino NEWBY Performed By: #### 2 [id number] ####[facility] [address] [place] [address] Glucose [Mass/Vol] 215 mg/dL High 55-99 [facility] Comment on above: Result Comment: Marino NEWBY Performed By: #### 2 [id number] ####[facility] [address] [place] [address] Glucose [Mass/Vol] 378 mg/dL High 55-99 [facility] Comment on above: Result Comment: Marino paulson RN/ Performed By: #### 2 655206, 3141636, 08394072, 357473678, 5460071, 0231683 #### [facility] [address] [place] [address] Cardiovascular Reporton 01-01 Cardiovascular Report [id number] 3#2.00CD:127 Normal [facility] HEMATOLOGYOrdered By: SYSTEM SYSTEM on 01-22-2023 Basophils/100 [...] 10.6 E9/L Normal 4.0 - 11.0 E9/L [facility] HemeAutoSS IrkY1arr 01-22-2023 HbA1c (Bld) [Mass fraction] 11.1 % High <=5.9 [facility] Comment on above: Performed By: #### 2 197666, 0239936, 98630538, 049413510, 4655918, 9631187 #### [facility] [address] [place] [address] Interdisciplinary Note - Lemuel e Manageron 01-22-2023 Interdisciplinary Note - Skull Grinder CRM entered the room to discuss dc planning. Contact information provided and whiteboard updated. Pt is getting testing. Pending cardiology. ANt dc today. CRM to follow. Normal [facility] Comment on above: Result Comment: Elec tronically Signed By: Cristin Shane\Date and Time Signed: 01/22/23 10:52 EDT Lipid Panelon 01-22-2023 Cholesterol [Mass/Vol] 205 mg/dL High 120-200 [facility] Comment on above: Performed By: #### 2 612824, 2615683, 55473316, 159803367, 8660222, 3197977 #### [facility] [address] [place] [address] Cholesterol in HDL [Mass/Vol] 35 mg/dL Invalid Interpretation Code [facility] Comment on above: Result Comment: HDL > or equal to 60 mg/dL: Low cardiovascular risk HDL < 40 mg/dL : High cardiovascular risk Performed By: #### 2 455738, 6546461, 82009501, 596670641, 2817270, 0597770 #### [facility] [address] [place] [address] Cholesterol in LDL [Mass/Vol] 115 mg/dL Normal <=129 [facility] Comment on above: Performed By: #### 2 711174, 5266158, 81894487, 987239747, 7072595, 5106129 #### [facility] [address] [place] [address] Cholesterol in VLDL [Mass/Vol] 60 mg/dL High 7-40 [facility] Comment on above: Performed By: #### 2 036135, 2727692, 66989789, 213906828, 5333638, 1255620 #### [facility] [address] [place] [address] Triglyceride [Mass/Vol] 300 mg/dL High <=149 [facility] Comment on above: Performed By: #### 2 288802, 2605077, 90140765, 305312467, 9186724, 9261752 #### [facility] [address] [place] [address] Monitor Recordon 01-22-2023 Monitor Record [id number] 6#1.00CD:127 Normal [facility] Monitor Record [id number] 5#1.00CD:127 Normal [facility] Monitor Record [id number] 6#1.00CD:127 Normal [facility] Monitor Record [id number] 5#1.00CD:127 [facility] Pre-Certification Formon Pre-Certification Form [id number] 5#1.00CD:127 [facility] Progress Note-Nurseon 2022 Progress Note-Nurse Report given to JACINTO Burgos, who is taking over patient's care in room 328. Loretta made aware that patient currently down in CV Lab. Patient's belongings taken to room 328. Patient's family member also taken down to room 328. [facility] Progress Note-Nurse This ad writer was notified by Dr. Obando at 1303 that patient will go for heart catheterization today. Per Dr. Obando, hold lovenox and make patient NPO. This ad writer will do at this time and notify patient of plan of care. [facility] Progress Note-Nurse This ad writer entered the patient's room to place [...] her right arm would intermittently hurt. This ad writer asked patient if there was anything she could do to help the patient any further, but patient denied any further needs. This ad writer will notify Dr. Obando that patient has had previous right shoulder pain when moving boxes back in November. [facility] Progress Note-Nurse This ad writer was notified by the person performing the echo that patient was having 10/10 right shoulder pain at 10:08. This ad writer entered the patient's room to personally assess the patient. Patient stated she was having 10/10 right shoulder pain, but denied having chest pain. Morphine was given at 10:10. Patient stated at 10:12 right shoulder pain was now 6/10, with no chest pain. This ad writer personally spoke with Dr. Obando on the phone, who stated to have an EKG performed after the Echo and that he would order a lidocaine patch. This ad writer notified both patient and Rema, with radiology that was in the patient's room. Normal [facility] Progress Note-Nurse Patient's step mother called, Chari, requesting updates. Chari not listed in contacts. This ad writer asked patient if it was okay to give Chari updates. Patient stated, yes. This ad writer updated Chari on plan of care. Chari had no further questions at this time. Normal [facility] Progress Note-Physicianon Progress Note-Physician Assessment/Plan 43-year-old female [...] morphine and oxygen. Cardiology consult pending. Ordered: [facility] Care/Day Moderate 35 Minutes 70511 2. Elevated troponin (R77.8: Other specified abnormalities of plasma proteins) Elevated troponin?secondary to NSTEMI. Cardiology consult pending. Continue on aspirin, Lipitor, Lovenox. Echocardiogram pending. Ordered: [facility] Care/Day Moderate 35 Minutes 34755 3. NSTEMI (non-ST elevation myocardial infarction) (I21.4: Non-ST elevation (NSTEMI) myocardial infarction) Acute NSTEMI?present on admission. Cardiology consult pending. Echocardiogram pending. Continue on aspirin, Lipitor, lisinopril, Lovenox. Ordered: [facility] Care/Day Moderate 35 Minutes 57228 4. Hypertensive urgency (I16.0: Hypertensive urgency) Resolved. Continue lisinopril. Ordered: [facility] Care/Day Moderate 35 Minutes 51702 5. Right shoulder pain (M25.511: Pain in right shoulder) Resolved. Ordered: [facility] Care/Day Moderate 35 Minutes 84732 6. 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 Disposition: Pending echocardiogram and cardiology consult. I discussed the diagnosis and plan of care with the patient at the bedside. Moderate level of MDM based on addressing above issues. This documentation was transcribed using voice recognition software. Several attempts were made to ensure accuracy. However inadvertent computerized tractor drill operator errors may be present. Ellie Obando. Hospitalist. [...] 05:07:00) Lymph Auto: 24.9 % (01/22/23 05:07:00) Mccreary Auto: 4.6 % (01/22/23 05:07:00) Eos Auto: 0.2 % (01/22/23 05:07:00) Basophil Auto: 0.4 % (01/22/23 05:07:00) Neutro Absolute: 7.4 E9/L (01/22/23 05:07:00) Lymph Absolute: 2.6 E9/L (06 (more content not included)... Normal [facility] Comment on above: Result Comment: Elec tronically Signed By: GAGE HAIDER, Ellie\.br\Date and Time Signed: 01/22/23 09:41 EDT Troponin 6 Hr.on 01-22-2023 Troponin I.cardiac [Mass/Vol] 467.70 pg/mL Abnormal 10.10-27.10 [facility] Comment on above: Result Comment: Crit ical [...] conjunction with clinical conditions of myocardial infarction. ([employer] High Sensitivity Troponin I Instructions For Use, [place], March 2018) Performed By: #### 2 043742, 7232376, 85439861, 902828068, 3805628, 8343718 #### [facility] [address] [place] [address] Troponin 9 Hr.on 01-22-2023 Troponin I.cardiac [Mass/Vol] 445.10 pg/mL Abnormal 10.10-27.10 [facility] Comment on above: Result Comment: Crit ical [...] conjunction with clinical conditions of myocardial infarction. ([employer] High Sensitivity Troponin I Instructions For Use, [place], March 2018) Performed By: #### 1 [id number] #### [facility] [address] [place] [address] XR Chest Single Viewon 01-22 XR Chest [...] mGy = na DAP = na Normal [facility] eGFRon 01-22-2023 GFR/1.73 sq M.predicted among non-blacks MDRD (S/P/Bld) [Vol rate/Area] 113 mL/min/1.73 m2 Normal >=59 [facility] Comment on above: Order Comment: Order added by Discern Expert. Result Comment: Child Support Specialist reji kidney disease could be indicated at eGFR's of less than 60 mL/min/1.73m2. Kidney failure is indicated at less than 15 mL/min/1.73m2. Performed By: #### 2 195300, 7780574, 72736261, 300809368, 1543183, 1606633 #### [facility] [address] [place] [address] Auto Diffon 01-21-2023 Basophils/100 WBC (Bld) 0.3 % Normal 0.0-2.0 [facility] Comment on above: Order Comment: Order Added by Discern Expert. Performed By: #### 2 157152, 7345955, 45002168, 303824154, 9211211, 2364235 #### [facility] [address] [place] [address] Basophils/Leukocytes Auto (Bld) [Pure # fraction] 0.0 E9/L Normal 0.0-0.2 [facility] Comment on above: Order Comment: Order Added by Discern Expert. Performed By: #### 2 079610, 3544152, 74826979, 082673458, 0124918, 8298273 #### [facility] [address] [place] [address] Eosinophils/100 WBC (Bld) 0.1 % Normal 0.0-8.0 [facility] Comment on above: Order Comment: Order Added by Discern Expert. Performed By: #### 2 249781, 0665359, 88614324, 721687258, 5330762, 7471109 #### [facility] [address] [place] [address] Eosinophils/Leukocyte s Auto (Bld) [Pure # fraction] 0.0 E9/L Normal 0.0-0.5 [facility] Comment on above: Order Comment: Order Added by Discern Expert. Performed By: #### 2 523689, 2921317, 05793637, 093468714, 7454726, 5823889 #### [facility] [address] [place] [address] Lymphocytes/100 WBC (Bld) 8.6 % Low 14.0-50.0 [facility] Comment on above: Order Comment: Order Added by Discern Expert. Performed By: #### 2 543498, 6871128, 36289858, 898585093, 9533240, 1521384 #### [facility] [address] [place] [address] Lymphocytes/Leukocyte s Auto (Bld) [Pure # fraction] 1.2 E9/L Normal 1.0-4.0 [facility] Comment on above: Order Comment: Order Added by Discern Expert. Performed By: #### 2 176523, 1321747, 64009266, 889180754, 0655969, 5675368 #### [facility] [address] [place] [address] Monocytes/100 WBC (Bld) 4.8 % Normal 4.0-14.0 [facility] Comment on above: Order Comment: Order Added by Discern Expert. Performed By: #### 2 168603, 5750024, 46592090, 004410110, 6298894, 2913607 #### [facility] [address] [place] [address] Monocytes/Leukocytes Auto (Bld) [Pure # fraction] 0.7 E9/L Normal 0.2-1.0 [facility] Comment on above: Order Comment: Order Added by Discern Expert. Performed By: #### 2 011243, 4433406, 45185413, 801887822, 1944710, 9092599 #### [facility] [address] [place] [address] Neutrophils/100 WBC (Bld) 86.2 % High 36.0-75.0 [facility] Comment on above: Order Comment: Order Added by Discern Expert. Performed By: #### 2 028593, 7656242, 02272532, 677603358, 7176138, 5056259 #### [facility] [address] [place] [address] Neutrophils/Leukocyte s Auto (Bld) [Pure # fraction] 12.3 E9/L High 2.0-7.5 [facility] Comment on above: Order Comment: Order Added by Discern Expert. Performed By: #### 2 957274, 1666975, 02931328, 637070975, 3753017, 8261021 #### [facility] [address] [place] [address] BMPon 01-21-2023 Anion gap [Moles/Vol] 14 mmol/L Normal 6-16 [facility] Comment on above: Performed By: #### 2 856628, 4131892, 80696383, 554638831, 9560218, 7768699 #### [facility] [address] [place] [address] Calcium [Mass/Vol] 9.0 mg/dL Normal 8.9-11.1 [facility] Comment on above: Performed By: #### 2 526870, 5080587, 99406719, 822174010, 9279791, 7826390 #### [facility] [address] [place] [address] Chloride [Moles/Vol] 101 mmol/L Normal 101-[address] [facility] Comment on above: Performed By: #### 2 526530, 8676527, 78700063, 563429474, 1939204, 2899322 #### [facility] [address] [place] [address] CO2 [Moles/Vol] 18 mmol/L Low 21-31 [facility] Comment on above: Performed By: #### 2 172554, 9522601, 22854866, 741833138, 1744847, 5201862 #### [facility] [address] [place] [address] Creatinine [Mass/Vol] 0.7 mg/dL Normal 0.5-1.3 [facility] Comment on above: Performed By: #### 2 437568, 9268268, 95306569, 388214846, 3582472, 5880025 #### [facility] [address] [place] [address] Glucose [Mass/Vol] 491 mg/dL Abnormal 55-199 [facility] Comment on above: Result Comment: Crit ical Result verified by repeat analysis\Critical Result [id number] MARTIN AT by CIARA HOWARD And Read Back For Confirmation at: 01/21/2023 17:05:30 If this glucose result represents a fasting glucose, interpretation should refer to the following reference range: 55-99 mg/dL Performed By: #### 2 355880, 9556958, 08126483, 902731582, 8269481, 4872966 #### [facility] [address] [place] [address] Potassium [Moles/Vol] 4.0 mmol/L Normal 3.5-5.3 [facility] Comment on above: Performed By: #### 2 701618, 5079318, 23101403, 262643517, 6573592, 9512738 #### [facility] [address] [place] [address] Sodium [Moles/Vol] 129 mmol/L Low 135-145 [facility] Comment on above: Performed By: #### 2 366940, 6812140, 56486954, 252561976, 0978117, 2813353 #### [facility] [address] [place] [address] Urea nitrogen [Mass/Vol] 23 mg/dL High 5-21 [facility] Comment on above: Performed By: #### 2 637332, 9593985, 21634490, 451394368, 7245012, 5774667 #### [facility] [address] [place] [address] Urea nitrogen/Creatinine [Mass ratio] 33 No Units High 10-20 [facility] Comment on above: Performed By: #### 2 815410, 5846774, 74149865, 783199788, 8912544, 3503608 #### [facility] [address] [place] [address] BOHBon 01-21-2023 Beta hydroxybutyrate [Moles/Vol] 0.86 mmol/L High 0.02-0.27 [facility] Comment on above: Performed By: #### 2 735031, 8292706, 77102986, 020887037, 4591997, 8964454 #### [facility] [address] [place] [address] CBC w/ Auto Diffon Erythrocyte distribution width (RBC) [Ratio] 14.2 % Normal 10.9-14.2 [facility] Comment on above: Performed By: #### 2 457707, 7076179, 66526496, 394338121, 6596313, 5887175 #### [facility] [address] [place] [address] Hematocrit (Bld) [Volume fraction] 41.9 % Normal 34.0-46.0 [facility] Comment on above: Performed By: #### 2 944685, 2978933, 54502107, 731989690, 5691205, 8616466 #### [facility] [address] [place] [address] Hemoglobin (Bld) [Mass/Vol] 14.2 g/dL Normal 12.0-16.0 [facility] Comment on above: Performed By: #### 2 031085, 0138540, 24361034, 739568995, 5696278, 8857701 #### [facility] [address] [place] [address] MCH (RBC) [Entitic mass] 28.0 pg Normal 27.0-34.0 [facility] Comment on above: Performed By: #### 2 989849, 3117237, 87041685, 654440325, 9054096, 9887516 #### [facility] [address] [place] [address] MCHC (RBC) [Mass/Vol] 33.9 g/dL Normal 31.4-36.0 [facility] Comment on above: Performed By: #### 2 045189, 6330696, 34830210, 681778903, 2596297, 7974142 #### [facility] [address] [place] [address] MCV (RBC) [Entitic vol] 82.6 fL Normal 80.0-100.0 [facility] Comment on above: Performed By: #### 2 229065, 1553707, 24196624, 923121525, 9037180, 7657079 #### [facility] [address] [place] [address] Platelet mean volume (Bld) [Entitic vol] 8.8 fL Normal 6.4-10.8 [facility] Comment on above: Performed By: #### 2 386904, 1302852, 11374221, 970060794, 1865732, 9585788 #### [facility] [address] [place] [address] Platelets (Bld) [#/Vol] 240.0 E9/L Normal 150.0-500.0 [facility] Comment on above: Performed By: #### 2 050394, 9778011, 96895619, 456722855, 0727030, 5161212 #### [facility] [address] [place] [address] RBC (Bld) [#/Vol] 5.1 E12/L Normal 4.3-5.9 [facility] Comment on above: Performed By: #### 2 666357, 5150662, 09625226, 296636588, 1153859, 1133596 #### [facility] [address] [place] [address] WBC corrected for nucl RBC Auto (Bld) [#/Vol] 14.2 E9/L High 4.0-11.0 [facility] Comment on above: Performed By: #### 2 717860, 2942942, 84023562, 410630835, 4662115, 5118800 #### [facility] [address] [place] [address] CHEMISTRYOrdered By: SYSTEM SYSTEM on 01-21-2023 Troponin I.cardiac [Mass/Vol] 467.70 pg/mL Invalid Interpretation Code 10.10 - 27.10 pg/mL [facility] Comment on above: Result Comment: [...] m2 Normal >=59mL/min/1. 73 m2 [facility] [place] S Glucose [Mass/Vol] 491 mg/dL Invalid Interpretation Code 55 - 199 mg/dL [facility] Comment on above: Result Comment: Crit ical Result verified by repeat analysis\Critical Result [id number] MARTIN AT ER by CIARA HOWARD And Read Back For Confirmation at: 01/21/2023 17:05:30 Potassium [Moles/Vol] 4.0 mmol/L Normal 3.5 - 5.3 mmol/L [facility] [place] Sodium [Moles/Vol] 129 mmol/L Low 135 - 145 mmol/L [facility] Urea nitrogen [Mass/Vol] 23 mg/dL High 5 - 21 mg/dL [facility]isol Urea nitrogen/Creatinine [Mass ratio] 33 mg/mg High 10 - 20 [facility]isol Consent for Treatmenton 01-01 Consent for Treatment [id number] 98#1.00CD:127 Normal [facility] ED Clinical Summaryon 2022 ED Clinical Summary [place] [id number] ED Clinical Summary Person Information Name: ESCOBAR ORTEGA Lashae/[facility] Age: 43 Years : 1980 Sex: Female Language: Iraqi PCP: Gentry Carrillo MD Marital Status: Phone: [phone] Visit Id: Visit Reason: Chest pain; CHEST [...] 19:12:01 Meds Admin Request 01/21/2023 19:13:12 ADDRESS: [address] [place] [address] [address] [phone] PHYS DOC NOTES: MEDICAL INFORMATION: Prescriptions Given: Medications to Continue with No Changes Other Medications acetaminophen-hydroc odone (Vicodin 500mg-5mg Tab) 1 Tablets By Mouth every 4 hours as needed for pain. Refills: 0. PATIENT EDUCATION INFORMATION: Instructions: Follow up: With: Address: When: Gentry Carrillo [address] [place] [address], [place] [address] Business (1) In 3 days DIAGNOSIS: 1:Chest pain; 2:Elevated troponin; 3:Hypertensive urgency; 4:Right shoulder pain; 5:Leukocytosis; 6:Hyperglycemia; 7:Hyponatremia; 8:Metabolic acidosis; 9:HTN (hypertension); 10:Diabetes mellitus; 11:Obese; 12:On deep vein thrombosis (DVT) prophylaxis Normal [facility] ED Note-Physicianon 01-22-20 ED Note-Physician Basic Information Time Seen: Daisy Campos M.D. 01/21/2023 16:49 Chief Complaint pt states just seen for arm pain, given rx steroid. 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 She states she was seen at [facility] yesterday and given steroids. The patient states [...] and Complexity of Problems Differential Diagnosis: [] [facility] Data External documents reviewed: [] My EKG [...] (primary) hypert (more content not included)... Normal [facility] Comment on above: Result Comment: Elec tronically Signed By: Daisy Campos M.D..brenna\Date and Time Signed: 01/21/23 19:01 EDT ED Patient Education Noteon 01-21-2023 ED Patient Education Note Normal [facility] ED Patient Summaryon 023 ED Patient Summary [address] [address] Patient Discharge Instructions Person Information Name: ESCOBAR ORTEGA Age: 43 Years Arrival Date: 01/21/2023 16:19:22 Discharge Diagnosis: 1:Chest pain; 2:Elevated troponin; 3:Hypertensive urgency; 4:Right shoulder pain; 5:Leukocytosis; 6:Hyperglycemia; 7:Hyponatremia; 8:Metabolic acidosis; 9:HTN (hypertension); 10:Diabetes mellitus; 11:Obese; 12:On deep vein thrombosis (DVT) prophylaxis Primary Care Physician: Gentry Carrillo MD Provider Information Primary Provider: Daisy Campos M.D. Advanced Fashion Supervisor:None The exam and treatment you received in the Emergency Department were for an urgent problem and are not intended as complete care. It is important that you follow up with a doctor, nurse practitioner, or physician?s medical office assistant for ongoing care. If your symptoms become worse or you do not improve as expected and you are unable to reach your usual health care provider, you should return to the Emergency Department. We are available 24 hours a day. ESCOBAR ORTEGA has been given the following list of patient education materials, prescriptions and follow-up instructions: Follow-up Instructions: With: Address: When: Gentry Lorena [address] [place] [address], [facility] [address] Business (1) In 3 days In the event that this physician does not participate in your insurance network, please consult with your insurance company to find a nearby participating provider. Patient Education Materials: A MESSAGE TO ALL PATIENTS REGARDING OPIOIDS PRESCRIPTION OPIOIDS: WHAT YOU NEED TO KNOW Prescription opioids can be used to help relieve pdvveipc-ch-kjscfo pain and are often prescribed following a [...] and overdo (more content not included)... Normal [facility] HEMATOLOGYOrdered By: SYSTEM SYSTEM on 01-21-2023 Basophils/100 [...] 82.6 fL Normal 80.0 - 100.0 fL [facility] HemeAutoSS Platelet mean volume (Bld) [Entitic vol] 8.8 fL Normal 6.4 - 10.8 fL [facility] HemeAutoSS Platelets (Bld) [#/Vol] 240.0 E9/L Normal 150.0 - 500.0 E9/L [facility] HemeAutoSS RBC (Bld) [#/Vol] 5.1 E12/L Normal 4.3 - 5.9 E12/L [facility] HemeAutoSS WBC corrected for nucl RBC Auto (Bld) [#/Vol] 14.2 E9/L High 4.0 - 11.0 E9/L [facility] HemeAutoSS Monitor Recordon 01-21-2023 Monitor Record [id number] 8#1.00CD:127 Normal [facility] Monitor Record [id number] 5#1.00CD:127 Normal [facility] Troponin 0 Hr.on 01-21-2023 Troponin I.cardiac [Mass/Vol] 201.10 pg/mL Abnormal 10.10-27.10 [facility] Comment on above: Result Comment: Crit ica Result I_hsTnI:201.[address] MARTIN at by CIARA HOWARD and read back for confirmation at 01/21/2023 17:29:22\Critical Result verified by repeat analysis The 95% CI (Confidence Interval) PPV (Positive Predictive Value) for myocardial infarction in females is 38 pg/mL, in males 51 pg/mL. The results should be used in conjunction with clinical conditions of myocardial infarction. (Access High Sensitivity Troponin I Instructions For Use, [place], March 2018) Performed By: #### 2 [id number], [id number], [id number], [id number], [id number], [id number] #### [facility] [address] [place] [address] Troponin 3 Hr.on 01-21-2023 Troponin I.cardiac [Mass/Vol] 258.00 pg/mL Abnormal 10.10-27.10 [facility] Comment on above: Order Comment: pt no t yet in room from er as of 1924 [id number] 01/21/2023 19:37:18 EDT Result Comment: Crit ical [...] Son [place], March 2018) Performed By: #### 1 [id number] #### [facility] [address] [place] [address] UA With Cult Reflexon 2022 Bilirubin Ql (U) Negative Normal Negative [facility] Comment on above: Performed By: #### 1 [id number] ####[place] [address] [place] [address] Clarity (U) CLEAR Normal Clear [facility] Comment on above: Performed By: #### 1 [id number] ####[place] [address] [place] [address] Color (U) STRAW Abnormal Yellow [facility] Comment on above: Performed By: #### 1 [id number] ####[place] [address] [place] [address] Epithelial cells.squamous LM.HPF (Urine sed) [#/Area] 0-2 Normal 0-2 [facility] Comment on above: Performed By: #### 1 [id number] ####[facility] [address] [place] [address] Glucose Test strip (U) [Mass/Vol] 3+ Abnormal Negative [facility] Comment on above: Performed By: #### 1 [id number] ####[facility] [address] [place] [address] Hemoglobin Ql (U) Negative Normal Negative [facility] Comment on above: Performed By: #### 1 [id number] ####[place] [address] [place] [address] Ketones (U) [Mass/Vol] 1+ Abnormal Negative [facility] Comment on above: Performed By: #### 1 [id number] ####[place] [address] [place] [address] [place].plasma/Lithiu m.RBC (Bld) [Mass ratio] 0-3 Normal 0-3 [facility] Comment on above: Performed By: #### 1 [id number] ####[address] [address] Nitrite Ql (U) Negative Normal Negative [facility] Comment on above: Performed By: #### 1 [id number] ####[address] [address] pH (U) 6.0 [pH] Invalid Interpretation Code 5.0-9.0 [facility] Comment on above: Performed By: #### 1 [id number] ####[address] [address] Protein (U) [Mass/Vol] Negative Normal Negative [facility] Comment on above: Performed By: #### 1 [id number] ####[address] [address] Specific gravity (U) [Rel density] 1.015 Invalid Interpretation Code 1.005-1.030 [facility] Comment on above: Performed By: #### 1 [id number] ####[address] [address] Type of Urine collection method Clean Catch Normal [facility] Comment on above: Performed By: #### 1 [id number] ####[address] [address] Urobilinogen Qn (U) 0.2 {Ankit'U}/dL Normal 0.0-1.0 [facility] Comment on above: Performed By: #### 1 [id number] ####[address] [address] WBC Auto Ql (U) Negative Normal Negative [facility] Comment on above: Performed By: #### 1 [id number] ####[facility] [address] [place] [address] WBC LM.HPF (Urine sed) [#/Area] 0-5 Normal 0-5 [facility] Comment on above: Performed By: #### 1 [id number] ####[facility] [address] [place] [address] URINALYSISOrdered By: Rogelio Tiwari on 01-21-2023 Bilirubin [...] Interpretation Code Negative [facility] UA Auto SS [place].plasma/Lithiu m.RBC (Bld) [Mass ratio] 0-3 /HPF Normal [...] Catch (01/21/23 5:53 PM) Normal [facility] UA Auto SS Urobilinogen Qn (U) 0.1458289 {Ankit'U}/dL Normal 0.0 - 1.0 EU/dL [facility] UA Auto SS WBC Auto Ql (U) Negative (01/21/23 5:53 PM) Normal Negative [facility] UA Auto SS WBC LM.HPF (Urine sed) [#/Area] 0-5 /HPF Normal 0-5/HPF [facility] UA Auto SS eGFRon 01-21-2023 GFR/1.73 sq M.predicted among non-blacks MDRD (S/P/Bld) [Vol rate/Area] 109 mL/min/1.73 m2 Normal >=59 [facility] Comment on above: Order Comment: Order Added by Discern Expert. Result Comment: Child Support Specialist reji kidney disease could be indicated at eGFR's of less than 60 mL/min/1.73m2. Kidney failure is indicated at less than 15 mL/min/1.73m2. Performed By: #### 2 [id number], [id number], [id number], [id number], [id number], [id number] #### [facility] [address] [place] [address] Consent for Treatmenton 11-30 Consent for Treatment [id number] #1.00CD:127 Normal [facility] Discharge Instructionson Discharge Instructions [id number] 1#1.00CD:127 Normal [facility] ED Clinical Summaryon 2022 ED Clinical Summary [address] [address] ED Clinical Summary Person Information Name: ESCOBAR ORTEGA Magnus [facility]ae/[facility] Age: 42 Years : 1980 Sex: Female Language: Iraqi PCP: Gentry Carrillo MD Marital Status: Phone: [phone] MRN: Visit Id: Visit Reason: Foot pain-swelling; RIGHT [...] 12/12/2022 08:15:04 ADDRESS: [address] [phone] PHYS DOC NOTES: MEDICAL INFORMATION: Prescriptions Given: Medications to Continue with No Changes Other Medications acetaminophen-hydroc odone (Vicodin 500mg-5mg Tab) 1 Tablets By Mouth every 4 hours as needed for pain. Refills: 0. PATIENT EDUCATION INFORMATION: Instructions: Foot Contusion Follow up: With: Address: When: Nelson HENSLEY - [facility], [facility], [address], [place] [address] 0 Business (1) In 3 days 12/15/2022 Comments: Call the office of the arrow point attacher on Wednesday and arrange for evaluation of the toe. With: Address: When: Gentry Carrillo [address] [place] [address], [place] [address] Business (1) In 3 days [...] from the toe. DIAGNOSIS: Toe contusion Normal [facility] ED Note-Physicianon 12-13-19 ED Note-Physician Basic Information [...] Nelson Meade In 3 days 12/15/2022 EDT [facility] [address] [place] [address] 5 Business (1) Additional Instructions: Call the office of the arrow point attacher on Wednesday and arrange for evaluation of the toe. Gentry Carrillo In 3 days 12/15/2022 EDT [address] [facility] [address]- Business (1) Additional Instructions: Call the office [...] active inp (more content not included)... Normal [facility] Comment on above: Result Comment: Elec trorejially Signed By: Pako Metzger DO\.br\Date and Time [...] may be recommended to support your foot. Scwk-kpa-swbgaez anti-inflammatory medicines may also be recommended for [...] or lying down. General instructions ? Take jito-xmr-fufhmyl and prescription medicines only as told by [...] provider. Document Revised: 10/22/2021 Document Reviewed: 10/22/2021 Elsevier Patient Education ? 2022 [employer] Normal [facility] ED Patient Summaryon 023 ED Patient Summary [address] [address] Patient Discharge Instructions Person Information Name: ESCOBAR ORTEGA Age: 42 Years Arrival Date: 12/12/2022 07:19:23 Discharge Diagnosis: Toe contusion Primary Care Physician: Gentry Carrillo MD Provider Information Primary Provider: Pako Metzger DO Advanced Fashion Supervisor:None The exam and treatment you received in the Emergency Department were for an urgent problem and are not intended as complete care. It is important that you follow up with a doctor, nurse practitioner, or physician?s medical office assistant for ongoing care. If your symptoms [...] Follow-up Instructions: With: Address: When: Nelson HENSLEY [facility], [facility], [address] [place] [address], [place] [address] 0 [employer] (1) In 3 days 12/15/2022 Comments: Call the office of the arrow point attacher on Wednesday and arrange for evaluation of the toe. With: Address: When: Gentry Lorena [address] [place] [address] [place] [id number] Business (1) In 3 days 12/15/2022 Comments: [...] opioids can be used to help relieve scqlylcw-nw-uzpcix pain and are often prescribed following a [...] psychological, goal-directed (more content not included)... Normal [facility] XR Toe(s) Min 2 Views Righto n [...] mGy = na DAP = na Normal [facility] PAP ACOG PANEL 2: 30 to 65on 06-22-2022 . . Normal [facility] Comment on above: Result Comment: Perf ormed at: WB Performed By: #### L AURELIANO DRIVER, CMP #### [facility] [address] [place] [address] [address] Neisha Araiza Age Gdln ACOG Testing 30-65 Normal [facility] Comment on above: Performed By: #### L AURELIANO DRIVER, CMP #### [facility] [address] [place] [address] [address] Neisha Araiza DIAGNOSIS: Comment Normal [facility] Comment on above: Result Comment: NEGA TIVE FOR INTRAEPITHELIAL LESION OR MALIGNANCY. Performed at: WB Performed By: #### L AURELIANO DRIVER, CMP #### [facility] [address] [place] [address] [address] Neisha Araiza HPV Aptima Negative Normal Negative [facility] Comment on above: Result Comment: This nucleic acid amplification test detects fourteen high-risk HPV types (16,18,31,33,35,39,45,51,52,56,58,59,66,68) without differentiation. Performed at: =G Performed By: #### L AURELIANO DRIVER, CMP #### [facility] [address] [place] [address] [address] Neisha Araiza HPV Genotype Reflex Comment Normal [facility] Comment on above: Result Comment: Crit eria not met, HPV Genotype not performed. Performed at: WB Performed By: #### L AURELIANO DRIVER, CMP #### [facility] [address] [place] [address] [address] Neisha Araiza Methodology: Comment Normal [facility] Comment on above: Result Comment: This liquid based ThinPrep(R) pap test was screened with the use of an image guided system. Performed at: WB Performed By: #### L AURELIANO DRIVER, CMP #### [facility] [address] [address] [address] Neisha Araiza Note: Comment Normal [facility] Comment on above: Result Comment: The [...] By: #### L AURELIANO DRIVER, CMP #### [facility] [address] [place] [address] Dr. Neisha Araiza Performed by: Comment Normal [facility] Comment on above: Result Comment: Tisha Sanders, It Security Specialist (ASCP) Performed at: WB Performed By: #### L AURELIANO DRIVER, CMP #### [facility] [address] [place] [address] Dr. Neisha Araiza Specimen adequacy: Comment Normal [facility] Comment on above: Result Comment: Sati sfactory for evaluation. Endocervical and/or squamous metaplastic cells (endocervical component) are present. Performed at: WB Performed By: #### L AURELIANO DRIVER, CMP #### [facility] [address] [address] [address] Neisha Araiza [facility]03 SARS-CoV-2 (COVID-19) RNA TIM+probe Ql (Unsp spec) Not detected Normal NOT DETECTED [facility] Comment on above: Result Comment: This test is not yet approved or cleared by the [place] FDA. When there are no FDA-approved or cleared tests available, and other criteria are met, FDA can make tests available under an emergency access mechanism called an Emergency Use Authorization (EUA). The EUA for this test is supported by the [place] of Health and Human Service's (HHS's) declaration [...] SARS-CoV-2. Performed By: #### C BC #### [facility] [address] [place] [address] [address] Neisha Araiza Covid-19 PCR ([facility])on 04-03 SARS-CoV-2 (COVID-19) RNA TIM+probe Ql (Unsp spec) Not detected Normal NOT DETECTED [facility] Comment on above: Result Comment: This test is not yet approved or cleared by the [place] FDA. When there are no FDA-approved or cleared tests available, and other criteria are met, FDA can make tests available under an emergency access mechanism called an Emergency Use Authorization (EUA). The EUA for this test is supported by the [place] Policy Associate of Health and Human Service's (HHS's) declaration [...] SARS-CoV-2. Performed By: #### C BC #### [facility] [address] [address] [address] Neisha Araiza CHLAMYDIA/GONOCOCCUS TIM ( AB/URINE/PAPon 04-17-2022 Chlamydia trachomatis, TIM Negative Normal Negative [facility] Comment on above: Performed By: #### C BC #### [facility] [address] [place] [address] Dr. Neisha Araiza Neisseria gonorrhoeae, TIM Negative Normal Negative [facility] Comment on above: Performed By: #### C BC #### [facility] [address] [place] [address] Dr. Neisha Araiza VAGINITIS/VAGINOSIS DNA PROB [employer] 04-16-2022 Val species Positive Abnormal Negative [facility] Comment on above: Performed By: #### L AURELIANO DRIVER CMP #### [facility] [address] [place] [address] Dr. Neisha Araiza Gardnerella vaginalis Positive Abnormal Negative [facility] Comment on above: Performed By: #### L AURELIANO DRIVER CMP #### [facility] [address] [place] [address] Dr. Neisha Araiza Trichomonas vaginalis Negative Normal Negative [facility] Comment on above: Performed By: #### L AURELIANO DRIVER CMP #### [facility] [address] [place] [address] Dr. Neisha Araiza AMYLASEon 01-05-2022 Amylase [Catalytic activity/Vol] 20 U/L Critically low 25-115 [facility] Comment on above: Performed By: #### C BC #### [facility] [address] [place] [address] Dr. Neisha Araiza CBC AUTO DIFFon 01-05-2022 BASO # 0.0 103/ul Normal 0.0-0.1 [facility] Comment on above: Performed By: #### C BC #### [facility] [address] [place] [address] Dr. Neisha Araiza Basophils/100 WBC (Bld) 0.6 % Normal 0.2-2.0 [facility] Comment on above: Performed By: #### C BC #### [facility] [address] [place] [address] Dr. Neisha Araiza EO # 0.1 103/ul Normal 0.0-0.7 [facility] Comment on above: Performed By: #### C BC #### [facility] [address] [place] [address] Dr. Neisha Araiza Eosinophils/100 WBC (Bld) 0.7 % Critically low 0.9-7.0 [facility] Comment on above: Performed By: #### C BC #### [facility] [address] [place] [address] Dr. Neisha Araiza Erythrocyte distribution width (RBC) [Ratio] 13.5 % Normal 11.0-15.0 [facility] Comment on above: Performed By: #### C BC #### [facility] [address] [place] [address] Dr. Neisha Araiza Hematocrit (Bld) [Volume fraction] 35.3 % Critically low 36.0-48.0 [facility] Comment on above: Performed By: #### C BC #### [facility] [address] [place] [address] Dr. Neisha Araiza Hemoglobin (Bld) [Mass/Vol] 11.8 g/dL Critically low 12.0-16.0 [facility] Comment on above: Performed By: #### C BC #### [facility] [address] [place] [address] Dr. Neisha Araiza IG # 0.02 10e3/ul Normal 0.00-0.03 [facility] Comment on above: Performed By: #### C BC #### [facility] [address] [place] [address] Dr. Neisha Araiza IG % 0.3 % Normal 0.0-0.5 [facility] Comment on above: Performed By: #### C BC #### [facility] [address] [place] [address] Dr. Neisha Araiza LYMPH # 2.3 103/ul Normal 1.2-3.8 [facility] Comment on above: Performed By: #### C BC #### [facility] [address] [place] [address] Dr. Neisha Araiza Lymphocytes/100 WBC (Bld) 33.2 % Normal 20.5-60.0 [facility] Comment on above: Performed By: #### C BC #### [facility] [address] [place] [address] Dr. Neisha Araiza MANUAL DIFF REQ NO Normal [facility] Comment on above: Performed By: #### C BC #### [facility] [address] [place] [address] Dr. Neisha Araiza MCH (RBC) [Entitic mass] 29.1 pg Normal 26.7-34.0 [facility] Comment on above: Performed By: #### C BC #### [facility] [address] [place] [address] Dr. Neisha Araiza MCHC (RBC) [Mass/Vol] 33.4 g/dL Normal 29.9-35.2 [facility] Comment on above: Performed By: #### C BC #### [facility] [address] [place] [address] Dr. Neisha Araiza MCV (RBC) [Entitic vol] 86.9 fL Normal 81.0-99.0 [facility] Comment on above: Performed By: #### C BC #### [facility] [address] [place] [address] Dr. Neisha Araiza MONO # 0.6 103/ul Normal 0.3-0.8 [facility] Comment on above: Performed By: #### C BC #### [facility] [address] [place] [address] Dr. Neisha Araiza Monocytes/100 WBC (Bld) 8.6 % Normal 1.7-12.0 [facility] Comment on above: Performed By: #### C BC #### [facility] [address] [place] [address] Dr. Neisha Araiza NEUT # 3.9 103/ul Normal 1.4-6.5 [facility] Comment on above: Performed By: #### C BC #### [facility] [address] [place] [address] Dr. Neisha Araiza Neutrophils/100 WBC (Bld) 56.6 % Normal 43.0-75.0 [facility] Comment on above: Performed By: #### C BC #### [facility] [address] [place] [address] Dr. Neisha Araiza Platelet mean volume (Bld) [Entitic vol] 9.5 fL Normal 9.5-13.5 [facility] Comment on above: Performed By: #### C BC #### [facility] [address] [place] [address] Dr. Neisha Araiza PLT 200 103/ul Normal 150-450 [facility] Comment on above: Performed By: #### C BC #### [facility] [address] [place] [address] Dr. Neisha Araiza RBC 4.06 106/ul Critically low 4.20-5.40 [facility] Comment on above: Performed By: #### C BC #### [facility] [address] [place] [address] Dr. Neisha Araiza WBC 7.0 103/ul Normal 4.0-11.0 [facility] Comment on above: Performed By: #### C BC #### [facility] [address] [place] [address] Dr. Neisha Araiza LIPASEon 01-05-2022 Lipase [Catalytic activity/Vol] 133.0 U/L Normal 73.0-393.0 [facility] Comment on above: Performed By: #### C BC #### [facility] [address] [place] [address] Dr. Neisha Araiza POINT OF CARE GLUCOSEon Glucose [Mass/Vol] 240 mg/dL Critically high 74-106 [facility] Comment on above: Performed By: #### P OCGLUC #### [facility] [address] [place] [address] Dr. Neisha Araiza Glucose [Mass/Vol] 240 mg/dL Critically high 74-106 [facility] Comment on above: Performed By: #### L IPA, AURELIANO, CMP #### [facility] [address] [place] [address] Dr. Neisha Araiza PROF 14(COMP METB)on 022 Albumin [Mass/Vol] 2.3 g/dL Critically low 3.4-5.0 [facility] Comment on above: Performed By: #### C BC #### [facility] [address] [place] [address] Dr. Neisha Araiza Albumin/Globulin [Mass ratio] 0.8 {ratio} Normal [facility] Comment on above: Performed By: #### C BC #### [facility] [address] [place] [address] Dr. Neisha Araiza ALP [Catalytic activity/Vol] 78 U/L Normal 46-116 [facility] Comment on above: Performed By: #### C BC #### [facility] [address] [place] [address] Dr. Neisha Araiza ALT [Catalytic activity/Vol] 21 U/L Normal 14-59 [facility] Comment on above: Performed By: #### C BC #### [facility] [address] [place] [address] Dr. Neisha Araiza Anion gap [Moles/Vol] 15.2 mmol/L Normal [facility] Comment on above: Performed By: #### C BC #### [facility] [address] [place] [address] Dr. Neisha Araiza AST [Catalytic activity/Vol] 20 U/L Normal 15-37 [facility] Comment on above: Performed By: #### C BC #### [facility] [address] [place] [address] Dr. Neisha Araiza Bilirubin [Mass/Vol] 0.8 mg/dL Normal 0.2-1.0 [facility] Comment on above: Performed By: #### C BC #### [facility] [address] [place] [address] Dr. Neisha Araiza Calcium [Mass/Vol] 7.5 mg/dL Critically low 8.5-10.1 [facility] Comment on above: Performed By: #### C BC #### [facility] [address] [place] [address] Dr. Neisha Araiza Chloride [Moles/Vol] 105 mmol/L Normal 98-107 [facility] Comment on above: Performed By: #### C BC #### [facility] [address] [address] [address] Neisha Araiza CO2 [Moles/Vol] 19.2 mmol/L Critically low 21.0-32.0 [facility] Comment on above: Performed By: #### C BC #### [facility] [address] [address] [address] Neisha Araiza Creatinine [Mass/Vol] 0.59 mg/dL Normal 0.55-1.02 [facility] Comment on above: Performed By: #### C BC #### [facility] [address] [place] [address] Dr. Neisha Araiza EGFR-AF PAKISTANI >60 Normal >=60 [facility] Comment on above: Performed By: #### C BC #### [facility] [address] [place] [address] Dr. Neisha Araiza EGFR-NON AF PAKISTANI >60 Normal >=60 [facility] Comment on above: Performed By: #### C BC #### [facility] [address] [address] [address] Neisha Araiza Globulin (S) [Mass/Vol] 2.9 g/dL Normal [facility] Comment on above: Performed By: #### C BC #### [facility] [address] [place] [address] Dr. Neisha Araiza Glucose [Mass/Vol] 240 mg/dL Critically high 74-106 [facility] Comment on above: Performed By: #### C BC #### [facility] [address] [place] [address] Dr. Neisha Araiza Potassium [Moles/Vol] 3.4 mmol/L Critically low 3.5-5.1 [facility] Comment on above: Performed By: #### C BC #### [facility] [address] [place] [address] Dr. Neisha Araiza Protein [Mass/Vol] 5.2 g/dL Critically low 6.4-8.2 [facility] Comment on above: Performed By: #### C BC #### [facility] [address] [address] [address] Neisha Araiza Sodium [Moles/Vol] 136 mmol/L Normal 136-145 [facility] Comment on above: Performed By: #### C BC #### [facility] [address] [address] [address] Neisha Araiza Urea nitrogen [Mass/Vol] 9.0 mg/dL Normal 7.0-18.0 [facility] Comment on above: Performed By: #### C BC #### [facility] [address] [address] [address] Neisha Araiza Urea nitrogen/Creatinine [Mass ratio] 15.3 mg/mg [place] Comment on above: Performed By: #### C BC #### [facility] [address] [place] [address] Dr. Neisha Araiza BLOOD GASES BTYon 01-04-2022 02 MODE ROOM AIR [place] Comment on above: Performed By: #### C BC #### [facility] [address] [address] [address] Neisha Araiza ALLENS TEST Positive [place] Comment on above: Performed By: #### C BC #### [facility] [address] [address] [address] Neisha Araiza Base excess Calc (Bld) [Moles/Vol] -10.92767 mmol/L Critically low -2.0-2.0 [facility] Comment on above: Performed By: #### C BC #### [facility] [address] [address] [address] Neisha Araiza BIPAP PRESSURE Normal [facility] Comment on above: Performed By: #### C BC #### [facility] [address] [place] [address] Dr. Neisha Araiza CO2 [Moles/Vol] 29.0 mmol/L Critically high 23.0-28.0 [facility] Comment on above: Performed By: #### C BC #### [facility] [address] [place] [address] Dr. Neisha Araiza CPAP [place] Comment on above: Performed By: #### C BC #### [facility] [address] [place] [address] Dr. Neisha Araiza FIO2 [place] Comment on above: Performed By: #### C BC #### [facility] [address] [address] [address] Neisha Araiza HCO3 (Bld) [Moles/Vol] 17.9 mmol/L Critically low 22.0-26.0 [facility] Comment on above: Performed By: #### C BC #### [facility] [address] [place] [address] Dr. Neisha Araiza LPM [place] Comment on above: Performed By: #### C BC #### [facility] [address] [place] [address] Dr. Neisha Araiza MINUTE VOLUME Normal [facility] Comment on above: Performed By: #### C BC #### [facility] [address] [place] [address] Dr. Neisha Araiza Oxygen (Bld) [Partial pressure] 95.8 mm[Hg] Normal 80.0-100.0 [facility] Comment on above: Performed By: #### C BC #### [facility] [address] [place] [address] Dr. Neisha Araiza Oxygen saturation in Blood 98.6 % Normal 95.0-100.0 [facility] Comment on above: Performed By: #### C BC #### [facility] [address] [place] [address] Dr. Neisha Araiza PCO2 22.9 mmHg Critically low 35.0-45.0 [facility] Comment on above: Performed By: #### C BC #### [facility] [address] [place] [address] Dr. Neisha Araiza PEEP [place] Comment on above: Performed By: #### C BC #### [facility] [address] [place] [address] Dr. Neisha Araiza pH (Bld) 7.408 [pH] Normal 7.350-7.450 [facility] Comment on above: Performed By: #### C BC #### [facility] [address] [place] [address] Dr. Neisha Araiza [facility] Comment on above: Performed By: #### C BC #### [facility] [address] [place] [address] Dr. Neisha Araiza [facility] Comment on above: Performed By: #### C BC #### [facility] [address] [place] [address] Dr. Neisha Araiza PUNCTURE SITE RR [facility] Comment on above: Performed By: #### C BC #### [facility] [address] [place] [address] Dr. Neisha Araiza [facility] Comment on above: Performed By: #### C BC #### [facility] [address] [place] [address] Dr. Neisha Araiza [facility] Comment on above: Performed By: #### C BC #### [facility] [address] [place] [address] Dr. Neisha Araiza [facility] Comment on above: Performed By: #### C BC #### [facility] [address] [place] [address] Dr. Neisha Araiza CBC AUTO DIFFon 01-04-2022 BASO # 0.0 103/ul Normal 0.0-0.1 [facility] Comment on above: Performed By: #### C BC #### [facility] [address] [place] [address] Dr. Neisha Araiza Basophils/100 WBC (Bld) 0.3 % Normal 0.2-2.0 [facility] Comment on above: Performed By: #### C BC #### [facility] [address] [place] [address] Dr. Neisha Araiza EO # 0.0 103/ul Normal 0.0-0.7 [facility] Comment on above: Performed By: #### C BC #### [facility] [address] [place] [address] Dr. Neisha Araiza Eosinophils/100 WBC (Bld) 0.0 % Critically low 0.9-7.0 [facility] Comment on above: Performed By: #### C BC #### [facility] [address] [place] [address] Dr. Neisha Araiza Erythrocyte distribution width (RBC) [Ratio] 13.5 % Normal 11.0-15.0 [facility] Comment on above: Performed By: #### C BC #### [facility] [address] [place] [address] Dr. Neisha Araiza Hematocrit (Bld) [Volume fraction] 39.1 % Normal 36.0-48.0 [facility] Comment on above: Performed By: #### C BC #### [facility] [address] [place] [address] Dr. Neisha Araiza Hemoglobin (Bld) [Mass/Vol] 13.3 g/dL Normal 12.0-16.0 [facility] Comment on above: Performed By: #### C BC #### [facility] [address] [place] [address] Dr. Neisha Araiza IG # 0.05 10e3/ul Critically high 0.00-0.03 [facility] Comment on above: Performed By: #### C BC #### [facility] [address] [place] [address] Dr. Neisha Araiza IG % 0.5 % Normal 0.0-0.5 [facility] Comment on above: Performed By: #### C BC #### [facility] [address] [place] [address] Dr. Neisha Araiza LYMPH # 1.4 103/ul Normal 1.2-3.8 [facility] Comment on above: Performed By: #### C BC #### [facility] [address] [place] [address] Dr. Neisha Araiza Lymphocytes/100 WBC (Bld) 14.8 % Critically low 20.5-60.0 [facility] Comment on above: Performed By: #### C BC #### [facility] [address] [place] [address] Dr. Neisha Araiza MANUAL DIFF REQ NO Normal [facility] Comment on above: Performed By: #### C BC #### [facility] [address] [place] [address] Dr. Neisha Araiza MCH (RBC) [Entitic mass] 28.6 pg Normal 26.7-34.0 [facility] Comment on above: Performed By: #### C BC #### [facility] [address] [place] [address] Dr. Neisha Araiza MCHC (RBC) [Mass/Vol] 34.0 g/dL Normal 29.9-35.2 [facility] Comment on above: Performed By: #### C BC #### [facility] [address] [place] [address] Dr. Neisha Araiza MCV (RBC) [Entitic vol] 84.1 fL Normal 81.0-99.0 [facility] Comment on above: Performed By: #### C BC #### [facility] [address] [place] [address] Dr. Neisha Araiza MONO # 0.6 103/ul Normal 0.3-0.8 [facility] Comment on above: Performed By: #### C BC #### [facility] [address] [place] [address] Dr. Neisha Araiza Monocytes/100 WBC (Bld) 5.8 % Normal 1.7-12.0 [facility] Comment on above: Performed By: #### C BC #### [facility] [address] [place] [address] Dr. Neisha Araiza NEUT # 7.6 103/ul Critically high 1.4-6.5 [facility] Comment on above: Performed By: #### C BC #### [facility] [address] [place] [address] Dr. Neisha Araiza Neutrophils/100 WBC (Bld) 78.6 % Critically high 43.0-75.0 [facility] Comment on above: Performed By: #### C BC #### [facility] [address] [address] [address] Neisha Araiza Platelet mean volume (Bld) [Entitic vol] 9.9 fL Normal 9.5-13.5 [facility] Comment on above: Performed By: #### C BC #### [facility] [address] [place] [address] Dr. Neisha Araiza PLT 280 103/ul Normal 150-450 [facility] Comment on above: Performed By: #### C BC #### [facility] [address] [place] [address] Dr. Neisha Araiza RBC 4.65 106/ul Normal 4.20-5.40 [facility] Comment on above: Performed By: #### C BC #### [facility] [address] [place] [address] Dr. Neisha Araiza WBC 9.7 103/ul Normal 4.0-11.0 [facility] Comment on above: Performed By: #### C BC #### [facility] [address] [place] [address] Dr. Neisha Araiza [facility]on SARS-CoV-2 (COVID-19) RNA TIM+probe Ql (Unsp spec) Not detected Normal NOT DETECTED [facility] Comment on above: Result Comment: When diagnostic [...] for this test is supported by the [place] [employer] and [employer] Service's declaration that [...] used). Performed By: #### C BC #### [facility] [address] [address] [address] Neisha Araiza POINT OF CARE GLUCOSEon Glucose [Mass/Vol] 215 mg/dL Critically high [address] [place] [address] Comment on above: Performed By: #### L AURELIANO DRIVER, CMP #### [facility] [address] [address] [address] Neisha Araiza Glucose [Mass/Vol] 187 mg/dL Critically high [address] [place] [address] Comment on above: Performed By: #### C BC #### [facility] [address] [address] [address] Neisha Araiza Glucose [Mass/Vol] 240 mg/dL Critically high [address] [place] [address] Comment on above: Performed By: #### C BC #### [facility] [address] [address] [address] Neisha Araiza Glucose [Mass/Vol] 251 mg/dL Critically high [address] [place] [address] Comment on above: Performed By: #### C BC #### [facility] [address] [address] [address] Neisha Araiza Glucose [Mass/Vol] 264 mg/dL Critically high [address] [place] [address] Comment on above: Performed By: #### L AURELIANO DRIVER, CMP #### [facility] [address] [place] [address] Dr. Neisha Araiza PROF 14(COMP METB)on 022 Albumin [Mass/Vol] 2.9 g/dL Critically low 3.4-5.0 [facility] Comment on above: Performed By: #### L AURELIANO DRIVER, CMP #### [facility] [address] [place] [address] Dr. Neisha Araiza Albumin/Globulin [Mass ratio] 0.9 {ratio} Normal [facility] Comment on above: Performed By: #### L AURELIANO DRIVER, CMP #### [facility] [address] [address] [address] Neisha Araiza ALP [Catalytic activity/Vol] 92 U/L Normal 46-116 [facility] Comment on above: Performed By: #### L IPA, AURELIANO, CMP #### [facility] [address] [place] [address] Dr. Neisha Araiza ALT [Catalytic activity/Vol] 28 U/L Normal 14-59 [facility] Comment on above: Performed By: #### L IPA, AURELIANO, CMP #### [facility] [address] [place] [address] Dr. Neisha Araiza Anion gap [Moles/Vol] 19.9 mmol/L Normal [facility] Comment on above: Performed By: #### L IPA AURELIANO, CMP #### [facility] [address] [place] [address] Dr. Niesha Araiza AST [Catalytic activity/Vol] 14 U/L Critically low 15-37 [facility] Comment on above: Performed By: #### L IPA AURELIANO, CMP #### [facility] [address] [place] [address] Dr. Neisha Araiza Calcium [Mass/Vol] 7.8 mg/dL Critically low 8.5-10.1 [facility] Comment on above: Performed By: #### L IPA AURELIANO, CMP #### [facility] [address] [place] [address] Dr. Neisha Araiza Chloride [Moles/Vol] 102 mmol/L Normal 98-107 [facility] Comment on above: Performed By: #### L IPA AURELIANO, CMP #### [facility] [address] [place] [address] Dr. Neisha Ariaza CO2 [Moles/Vol] 17.7 mmol/L Critically low 21.0-32.0 [facility] Comment on above: Performed By: #### L IPA AURELIANO, CMP #### [facility] [address] [place] [address] Dr. Neisha Araiza Creatinine [Mass/Vol] 0.60 mg/dL Normal 0.55-1.02 [facility] Comment on above: Performed By: #### L IPA AURELIANO, CMP #### [facility] [address] [place] [address] Dr. Neisha Araiza EGFR-AF PAKISTANI >60 Normal >=60 [facility] Comment on above: Performed By: #### L AURELIANO DRIVER, CMP #### [facility] [address] [place] [address] Dr. Neisha Araiza EGFR-NON AF PAKISTANI >60 Normal >=60 [facility] Comment on above: Performed By: #### L AURELIANO DRVIER, CMP #### [facility] [address] [place] [address] Dr. Neisha Araiza Globulin (S) [Mass/Vol] 3.4 g/dL Normal [facility] Comment on above: Performed By: #### L AURELIANO DRIVER, CMP #### [facility] [address] [place] [address] Dr. Neisha Araiza Glucose [Mass/Vol] 272 mg/dL Critically high 74-106 [facility] Comment on above: Performed By: #### L AURELIANO DRIVER, CMP #### [facility] [address] [place] [address] Dr. Neisha Araiza Potassium [Moles/Vol] 3.6 mmol/L Normal 3.5-5.1 [facility] Comment on above: Performed By: #### L AURELIANO DRIVER, CMP #### [facility] [address] [place] [address] Dr. Neisha Araiza Protein [Mass/Vol] 6.3 g/dL Critically low 6.4-8.2 [facility] Comment on above: Performed By: #### L AURELIANO DRIVER, CMP #### [facility] [address] [place] [address] Dr. Neisha Araiza Sodium [Moles/Vol] 136 mmol/L Normal 136-145 [facility] Comment on above: Performed By: #### L AURELIANO DRIVER, CMP #### [facility] [address] [place] [address] Dr. Neisha Araiza Urea nitrogen [Mass/Vol] 9.0 mg/dL Normal 7.0-18.0 [facility] Comment on above: Performed By: #### L AURELIANO DRIVER, CMP #### [facility] [address] [place] [address] Dr. Neisha Araiza Urea nitrogen/Creatinine [Mass ratio] 15.0 mg/mg Normal [facility] Comment on above: Performed By: #### L AURELIANO DRIVER, CMP #### [facility] [address] [place] [address] Dr. Neisha Araiza XR ABD FLAT_UPon 01-04-2022 [...] by: MARIAELENA BROWN Date: 2022-01-04 01:26 Normal [facility] ACETONE SERUMon 01-03-2022 ACETONE Negative Normal NEGATIVE [facility] Comment on above: Performed By: #### A CETON #### [facility] [address] [place] [address] Dr. Neisha Araiza ACETONE SMALL Abnormal NEGATIVE [facility] Comment on above: Performed By: #### C BC #### [facility] [address] [place] [address] Dr. Neisha Araiza AMYLASEon 01-03-2022 Amylase [Catalytic activity/Vol] 15 U/L Critically low 25-115 [facility] Comment on above: Performed By: #### L NEISHA AURELIANO, CMP #### [facility] [address] [place] [address] Dr. Neisha Araiza CARDIAC BRI ADMITon 022 CK [Catalytic activity/Vol] 44 U/L Normal 26-192 [facility] Comment on above: Performed By: #### L NEISHA AURELIANO, CMP #### [facility] [address] [place] [address] Dr. Neisha Araiza CK.MB [Mass/Vol] 0.93 ng/mL Normal <=3.60 [facility] Comment on above: Performed By: #### L IPA AURELIANO, CMP #### [facility] [address] [address] [address] Neisha Araiza HSTROP 4.1 pg/mL Normal 4.0-51.3 [facility] Comment on above: Result Comment: CUT- OFF POINTS HAVE BEEN ESTABLISHED BASED ON THE FOURTH UNIVERSAL DEFINITIONS OF MYOCARDIAL INFARCTION. THE UPPER REFERENCE LIMIT (URL) OF TROPONIN, DEFINED THE 99TH PERCENTILE OF cTnI DISTRIBUTION IN A REFERENCE POPULATION, HAS BEEN CONFIRMED THE DECISION THRESHOLD FOR OR DIAGNOSIS. Performed By: #### L AURELIANO DRIVER, CMP #### [facility] [address] [place] [address] Dr. Neisha Araiza ROCIO 20 ng/mL Normal 9-82 [facility] Comment on above: Performed By: #### L AURELIANO DRIVER CMP #### [facility] [address] [place] [address] Dr. Neisha Araiza CBC AUTO DIFFon 01-03-2022 Basophils/100 WBC (Bld) 0.3 % Normal 0.2-2.0 [facility] Comment on above: Performed By: #### C BC #### [facility] [address] [place] [address] Dr. Neisha Araiza Hematocrit (Bld) [Volume fraction] 42.7 % Normal 36.0-48.0 [facility] Comment on above: Performed By: #### C BC #### [facility] [address] [place] [address] Dr. Neisha Araiza Hemoglobin (Bld) [Mass/Vol] 14.3 g/dL Normal 12.0-16.0 [facility] Comment on above: Performed By: #### C BC #### [facility] [address] [place] [address] Dr. Neisha Araiza IG # 0.03 10e3/ul Normal 0.00-0.03 [facility] Comment on above: Performed By: #### C BC #### [facility] [address] [place] [address] Dr. Neisha Araiza IG % 0.3 % Normal 0.0-0.5 [facility] Comment on above: Performed By: #### C BC #### [facility] [address] [address] [address] Neisha Araiza LYMPH # 1.1 103/ul Critically low 1.2-3.8 [facility] Comment on above: Performed By: #### C BC #### [facility] [address] [address] [address] Neisha Araiza Lymphocytes/100 WBC (Bld) 12.9 % Critically low 20.5-60.0 [facility] Comment on above: Performed By: #### C BC #### [facility] [address] [place] [address] Dr. Neisha Araiza MCHC (RBC) [Mass/Vol] 33.5 g/dL Normal 29.9-35.2 [facility] Comment on above: Performed By: #### C BC #### [facility] [address] [place] [address] Dr. Neisha Araiza MCV (RBC) [Entitic vol] 85.2 fL Normal 81.0-99.0 [facility] Comment on above: Performed By: #### C BC #### [facility] [address] [place] [address] Dr. Neisha Araiza MONO # 0.3 103/ul Normal 0.3-0.8 [facility] Comment on above: Performed By: #### C BC #### [facility] [address] [place] [address] Dr. Neisha Araiza Monocytes/100 WBC (Bld) 3.3 % Normal 1.7-12.0 [facility] Comment on above: Performed By: #### C BC #### [facility] [address] [place] [address] Dr. Neisha Araiza NEUT # 7.3 103/ul Critically high 1.4-6.5 [facility] Comment on above: Performed By: #### C BC #### [facility] [address] [place] [address] Dr. Neisha Araiza Neutrophils/100 WBC (Bld) 83.2 % Critically high 43.0-75.0 The [facility] Comment on above: Performed By: #### C BC #### [facility] [address] [place] [address] Dr. Neisha Araiza PLT 281 103/ul Normal 150-450 [facility] Comment on above: Performed By: #### C BC #### [facility] [address] [place] [address] Dr. Neisha Araiza RBC 5.01 106/ul Normal 4.20-5.40 [facility] Comment on above: Performed By: #### C BC #### [facility] [address] [place] [address] Dr. Neisha Araiza WBC 8.8 103/ul Normal 4.0-11.0 [facility] Comment on above: Performed By: #### C BC #### [facility] [address] [place] [address] Dr. Neisha Araiza BASO # 0.0 103/ul Normal 0.0-0.1 [facility] Comment on above: Performed By: #### C BC #### [facility] [address] [place] [address] Dr. Neisha Araiza Performed By: #### A CETON #### [facility] [address] [place] [address] Dr. Neisha Araiza Basophils/100 WBC (Bld) 0.5 % Normal 0.2-2.0 [facility] Comment on above: Performed By: #### A CETON #### [facility] [address] [place] [address] Dr. Neisha Araiza EO # 0.0 103/ul Normal 0.0-0.7 [facility] Comment on above: Performed By: #### C BC #### [facility] [address] [place] [address] Dr. Neisha Araiza Performed By: #### A CETON #### [facility] [address] [place] [address] Dr. Neisha Araiza Eosinophils/100 WBC (Bld) 0.0 % Critically low 0.9-7.0 [facility] Comment on above: Performed By: #### C BC #### [facility] [address] [place] [address] Dr. Neisha Araiza Performed By: #### A CETON #### [facility] [address] [place] [address] Dr. Neisha Araiza Erythrocyte distribution width (RBC) [Ratio] 13.2 % Normal 11.0-15.0 [facility] Comment on above: Performed By: #### C BC #### [facility] [address] [place] [address] Dr. Neisha Araiza Performed By: #### A CETON #### [facility] [address] [place] [address] Dr. Neisha Araiza Hematocrit (Bld) [Volume fraction] 45.8 % Normal 36.0-48.0 [facility] Comment on above: Performed By: #### A CETON #### [facility] [address] [place] [address] Dr. Neisha Araiza Hemoglobin (Bld) [Mass/Vol] 15.6 g/dL Normal 12.0-16.0 [facility] Comment on above: Performed By: #### A CETON #### [facility] [address] [place] [address] Dr. Neisha Araiza IG # 0.05 10e3/ul Critically high 0.00-0.03 [facility] Comment on above: Performed By: #### A CETON #### [facility] [address] [place] [address] Dr. Neisha Araiza IG % 0.6 % Critically high 0.0-0.5 [facility] Comment on above: Performed By: #### A CETON #### [facility] [address] [place] [address] Dr. Neisha Araiza LYMPH # 0.7 103/ul Critically low 1.2-3.8 [facility] Comment on above: Performed By: #### A CETON #### [facility] [address] [place] [address] Dr. Neisha Araiza Lymphocytes/100 WBC (Bld) 8.3 % Critically low 20.5-60.0 [facility] Comment on above: Performed By: #### A CETON #### [facility] [address] [place] [address] Dr. Neisha Araiza MANUAL DIFF REQ NO Normal [facility] Comment on above: Performed By: #### C BC #### [facility] [address] [place] [address] Dr. Neisha Araiza Performed By: #### A CETON #### [facility] [address] [place] [address] Dr. Neisha Araiza MCH (RBC) [Entitic mass] 28.5 pg Normal 26.7-34.0 [facility] Comment on above: Performed By: #### C BC #### [facility] [address] [place] [address] Dr. Neisha Araiza Performed By: #### A CETON #### [facility] [address] [place] [address] Dr. Neisha Araiza MCHC (RBC) [Mass/Vol] 34.1 g/dL Normal 29.9-35.2 [facility] Comment on above: Performed By: #### A CETON #### [facility] [address] [place] [address] Dr. Neisha Araiza MCV (RBC) [Entitic vol] 83.7 fL Normal 81.0-99.0 [facility] Comment on above: Performed By: #### A CETON #### [facility] [address] [place] [address] Dr. Neisha Araiza MONO # 0.2 103/ul Critically low 0.3-0.8 [facility] Comment on above: Performed By: #### A CETON #### [facility] [address] [place] [address] Dr. Neisha Araiza Monocytes/100 WBC (Bld) 2.7 % Normal 1.7-12.0 [facility] Comment on above: Performed By: #### A CETON #### [facility] [address] [place] [address] Dr. Neisha Araiza NEUT # 6.9 103/ul Critically high 1.4-6.5 [facility] Comment on above: Performed By: #### A CETON #### [facility] [address] [place] [address] Dr. Neisha Araiza Neutrophils/100 WBC (Bld) 87.9 % Critically high 43.0-75.0 [facility] Comment on above: Performed By: #### A CETON #### [facility] [address] [place] [address] Dr. Neisha Araiza Platelet mean volume (Bld) [Entitic vol] 9.9 fL Normal 9.5-13.5 [facility] Comment on above: Performed By: #### C BC #### [facility] [address] [place] [address] Dr. Neisha Araiza Performed By: #### A CETON #### [facility] [address] [place] [address] Dr. Neisha Araiza PLT 260 103/ul Normal 150-450 [facility] Comment on above: Performed By: #### A CETON #### [facility] [address] [place] [address] Dr. Neisha Araiza RBC 5.47 106/ul Critically high 4.20-5.40 [facility] Comment on above: Performed By: #### A CETON #### [facility] [address] [place] [address] Dr. Neisha Araiza WBC 7.8 103/ul Normal 4.0-11.0 [facility] Comment on above: Performed By: #### A CETON #### [facility] [address] [place] [address] Dr. Neisha Araiza LIPASEon 01-03-2022 Lipase [Catalytic activity/Vol] 72.0 U/L Critically low 73.0-393.0 [facility] Comment on above: Performed By: #### L AURELIANO DRIVER CMP #### [facility] [address] [place] [address] Dr. Neisha Araiza PH VENOUS BLOODon 01-03-2022 PCO2 VENOUS 34.2 mmHg Critically low 40.0-52.0 [facility] Comment on above: Performed By: #### L AURELIANO DRIVER CMP #### [facility] [address] [place] [address] Dr. Neisha Araiza pH VENOUS 7.370 Normal 7.330-7.430 [facility] Comment on above: Performed By: #### L AURELIANO DRIVER, CMP #### [facility] [address] [place] [address] Dr. Neisha Araiza POINT OF CARE GLUCOSEon 06-0 Glucose [Mass/Vol] 283 mg/dL Critically high 74-106 [facility] Comment on above: Performed By: #### L NEISHA AURELIANO, CMP #### [facility] [address] [address] [address] Neisha Araiza Glucose [Mass/Vol] 297 mg/dL Critically high 74-106 [facility] Comment on above: Performed By: #### A CETON #### [facility] [address] [place] [address] Dr. Neisha Araiza PROF 14(COMP METB)on 022 Albumin [Mass/Vol] 3.6 g/dL Normal 3.4-5.0 [facility] Comment on above: Performed By: #### L AURELIANO DRIVER, CMP #### [facility] [address] [place] [address] Dr. Neisha Araiza Albumin/Globulin [Mass ratio] 0.8 {ratio} Normal [facility] Comment on above: Performed By: #### L NEISHA AURELIANO, CMP #### [facility] [address] [place] [address] Dr. Neisha Araiza ALP [Catalytic activity/Vol] 131 U/L Critically high 46-116 [facility] Comment on above: Performed By: #### L IPA AURELIANO, CMP #### [facility] [address] [place] [address] Dr. Neisha Araiza ALT [Catalytic activity/Vol] 39 U/L Normal 14-59 [facility] Comment on above: Performed By: #### L IPA AURELIANO, CMP #### [facility] [address] [place] [address] Dr. Neisha Araiza Anion gap [Moles/Vol] 20.7 mmol/L Normal [facility] Comment on above: Performed By: #### L IPA AURELIANO, CMP #### [facility] [address] [address] [address] Neisha Araiza AST [Catalytic activity/Vol] 19 U/L Normal 15-37 [facility] Comment on above: Performed By: #### L IPA AURELIANO, CMP #### [facility] [address] [place] [address] Dr. Neisha Araiza Calcium [Mass/Vol] 8.9 mg/dL Normal 8.5-10.1 [facility] Comment on above: Performed By: #### L IPA AURELIANO, CMP #### [facility] [address] [place] [address] Dr. Neisha Araiza Chloride [Moles/Vol] 97 mmol/L Critically low 98-107 [facility] Comment on above: Performed By: #### L IPA AURELIANO, CMP #### [facility] [address] [place] [address] Dr. Neisha Araiza CO2 [Moles/Vol] 19.2 mmol/L Critically low 21.0-32.0 [facility] Comment on above: Performed By: #### L NEISHA AURELIANO, CMP #### [facility] [address] [place] [address] Dr. Neisha Araiza Creatinine [Mass/Vol] 0.60 mg/dL Normal 0.55-1.02 [facility] Comment on above: Performed By: #### L NEISHA AURELIANO, CMP #### [facility] [address] [place] [address] Dr. Neisha Araiza Globulin (S) [Mass/Vol] 4.3 g/dL Normal [facility] Comment on above: Performed By: #### L IPA AURELIANO, CMP #### [facility] [address] [place] [address] Dr. Neisha Araiza Glucose [Mass/Vol] 368 mg/dL Critically high 74-106 [facility] Comment on above: Performed By: #### L IPA AURELIANO, CMP #### [facility] [address] [place] [address] Dr. Neisha Araiza Protein [Mass/Vol] 7.9 g/dL Normal 6.4-8.2 [facility] Comment on above: Performed By: #### L AURELIANO DRIVRE, CMP #### [facility] [address] [place] [address] Dr. Neisha Araiza Sodium [Moles/Vol] 133 mmol/L Critically low 136-145 [facility] Comment on above: Performed By: #### L AURELIANO DRIVER, CMP #### [facility] [address] [place] [address] Dr. Neisha Araiza Urea nitrogen [Mass/Vol] 13.0 mg/dL Normal 7.0-18.0 [facility] Comment on above: Performed By: #### L AURELIANO DRIVER, CMP #### [facility] [address] [place] [address] Dr. Neisha Araiza Urea nitrogen/Creatinine [Mass ratio] 21.7 mg/mg Normal [facility] Comment on above: Performed By: #### L AURELIANO DRIVER, CMP #### [facility] [address] [place] [address] Dr. Neisha Araiza PROF CHEM 8 (BAS METB)on Anion gap [Moles/Vol] 20.2 mmol/L Normal [facility] Comment on above: Performed By: #### L AURELIANO DRIVER, CMP #### [facility] [address] [place] [address] Dr. Neisha Araiza Calcium [Mass/Vol] 8.0 mg/dL Critically low 8.5-10.1 [facility] Comment on above: Performed By: #### L AURELIANO DRIVER, CMP #### [facility] [address] [place] [address] Dr. Neisha Araiza Chloride [Moles/Vol] 102 mmol/L Normal 98-107 [facility] Comment on above: Performed By: #### L AURELIANO DRIVER, CMP #### [facility] [address] [place] [address] Dr. Neisha Araiza CO2 [Moles/Vol] 16.7 mmol/L Critically low 21.0-32.0 [facility] Comment on above: Performed By: #### L IPA AURELIANO, CMP #### [facility] [address] [address] [address] Neisha Araiza Creatinine [Mass/Vol] 0.62 mg/dL Normal 0.55-1.02 [facility] Comment on above: Performed By: #### L IPA AURELIANO, CMP #### [facility] [address] [address] [address] Neisha Araiza Glucose [Mass/Vol] 287 mg/dL Critically high 74-106 [facility] Comment on above: Performed By: #### L IPA AURELIANO, CMP #### [facility] [address] [address] [address] Neisha Araiza Sodium [Moles/Vol] 135 mmol/L Critically low 136-145 [facility] Comment on above: Performed By: #### L IPA AURELIANO, CMP #### [facility] [address] [place] [address] Dr. Neisha Araiza Urea nitrogen [Mass/Vol] 11.0 mg/dL Normal 7.0-18.0 [facility] Comment on above: Performed By: #### L NEISHA AURELIANO, CMP #### [facility] [address] [place] [address] Dr. Neisha Araiza Urea nitrogen/Creatinine [Mass ratio] 17.7 mg/mg Normal [facility] Comment on above: Performed By: #### L NEISHA AURELIANO, CMP #### [facility] [address] [place] [address] Dr. Neisha Araiza EGFR-AF PAKISTANI >60 Normal >=60 [facility] Comment on above: Performed By: #### L IPA AURELIANO, CMP #### [facility] [address] [place] [address] Dr. Neisha Araiza EGFR-NON AF PAKISTANI >60 Normal >=60 [facility] Comment on above: Performed By: #### L IPA AURELIANO, CMP #### [facility] [address] [place] [address] Dr. Neisha Araiza Potassium [Moles/Vol] 3.9 mmol/L Normal 3.5-5.1 [facility] Comment on above: Performed By: #### L IPA, AURELIANO, CMP #### [facility] [address] [place] [address] Dr. Neisha Araiza CBC AUTO DIFFon 12-12-2021 BASO # 0.1 103/ul Normal 0.0-0.1 [facility] Comment on above: Performed By: #### C BC #### [facility] [address] [place] [address] Dr. Neisha Araiza Basophils/100 WBC (Bld) 0.6 % Normal 0.2-2.0 [facility] Comment on above: Performed By: #### C BC #### [facility] [address] [place] [address] Dr. Neisha Araiza EO # 0.0 103/ul Normal 0.0-0.7 [facility] Comment on above: Performed By: #### C BC #### [facility] [address] [place] [address] Dr. Neisha Araiza Eosinophils/100 WBC (Bld) 0.5 % Critically low 0.9-7.0 [facility] Comment on above: Performed By: #### C BC #### [facility] [address] [place] [address] Dr. Neisha Araiza Erythrocyte distribution width (RBC) [Ratio] 12.6 % Normal 11.0-15.0 [facility] Comment on above: Performed By: #### C BC #### [facility] [address] [place] [address] Dr. Neisha Araiza Hematocrit (Bld) [Volume fraction] 40.7 % Normal 36.0-48.0 [facility] Comment on above: Performed By: #### C BC #### [facility] [address] [place] [address] Dr. Neisha Araiza Hemoglobin (Bld) [Mass/Vol] 14.4 g/dL Normal 12.0-16.0 [facility] Comment on above: Performed By: #### C BC #### [facility] [address] [place] [address] Dr. Neisha Araiza IG # 0.05 10e3/ul Critically high 0.00-0.03 [facility] Comment on above: Performed By: #### C BC #### [facility] [address] [place] [address] Dr. Neisha Araiza IG % 0.6 % Critically high 0.0-0.5 [facility] Comment on above: Performed By: #### C BC #### [facility] [address] [place] [address] Dr. Neisha Araiza LYMPH # 2.3 103/ul Normal 1.2-3.8 [facility] Comment on above: Performed By: #### C BC #### [facility] [address] [place] [address] Dr. Neisha Araiza Lymphocytes/100 WBC (Bld) 26.2 % Normal 20.5-60.0 [facility] Comment on above: Performed By: #### C BC #### [facility] [address] [place] [address] Dr. Neisha Araiza MANUAL DIFF REQ NO Normal [facility] Comment on above: Performed By: #### C BC #### [facility] [address] [place] [address] Dr. Neisha Araiza MCH (RBC) [Entitic mass] 28.4 pg Normal 26.7-34.0 [facility] Comment on above: Performed By: #### C BC #### [facility] [address] [place] [address] Dr. Neisha Araiza MCHC (RBC) [Mass/Vol] 35.4 g/dL Critically high 29.9-35.2 [facility] Comment on above: Performed By: #### C BC #### [facility] [address] [place] [address] Dr. Neisha Araiza MCV (RBC) [Entitic vol] 80.3 fL Critically low 81.0-99.0 [facility] Comment on above: Performed By: #### C BC #### [facility] [address] [place] [address] Dr. Neisha Araiza MONO # 0.5 103/ul Normal 0.3-0.8 [facility] Comment on above: Performed By: #### C BC #### [facility] [address] [place] [address] Dr. Neisha Araiza Monocytes/100 WBC (Bld) 5.5 % Normal 1.7-12.0 [facility] Comment on above: Performed By: #### C BC #### [facility] [address] [place] [address] Dr. Neisha Araiza NEUT # 5.7 103/ul Normal 1.4-6.5 [facility] Comment on above: Performed By: #### C BC #### [facility] [address] [place] [address] Dr. Neisha Araiza Neutrophils/100 WBC (Bld) 66.6 % Normal 43.0-75.0 [facility] Comment on above: Performed By: #### C BC #### [facility] [address] [place] [address] Dr. Neisha Araiza Platelet mean volume (Bld) [Entitic vol] 9.5 fL Normal 9.5-13.5 [facility] Comment on above: Performed By: #### C BC #### [facility] [address] [place] [address] Dr. Neisha Araiza PLT 266 103/ul Normal 150-450 [facility] Comment on above: Performed By: #### C BC #### [facility] [address] [place] [address] Dr. Neisha Araiza RBC 5.07 106/ul Normal 4.20-5.40 [facility] Comment on above: Performed By: #### C BC #### [facility] [address] [place] [address] Dr. Neisha Araiza WBC 8.6 103/ul Normal 4.0-11.0 [facility] Comment on above: Performed By: #### C BC #### [facility] [address] [place] [address] Dr. Neisha Araiza POINT OF CARE GLUCOSEon 05-1 Glucose [Mass/Vol] 157 mg/dL Critically high 74-106 [facility] Comment on above: Performed By: #### C BC #### [facility] [address] [address] [address] Neisha Araiza Glucose [Mass/Vol] 223 mg/dL Critically high 74-106 [facility] Comment on above: Performed By: #### L AURELIANO DRIVER, CMP #### [facility] [address] [place] [address] Dr. Neisha Araiza PROF 14(COMP METB)on 022 Albumin [Mass/Vol] 3.1 g/dL Critically low 3.4-5.0 [facility] Comment on above: Performed By: #### C BC #### [facility] [address] [place] [address] Dr. Neisha Araiza Albumin/Globulin [Mass ratio] 0.9 {ratio} Normal [facility] Comment on above: Performed By: #### C BC #### [facility] [address] [place] [address] Dr. Neisha Araiza ALP [Catalytic activity/Vol] 96 U/L Normal 46-116 [facility] Comment on above: Performed By: #### C BC #### [facility] [address] [place] [address] Dr. Neisha Araiza ALT [Catalytic activity/Vol] 28 U/L Normal 14-59 [facility] Comment on above: Performed By: #### C BC #### [facility] [address] [place] [address] Dr. Neisha Araiza Anion gap [Moles/Vol] 17.9 mmol/L Normal [facility] Comment on above: Performed By: #### C BC #### [facility] [address] [place] [address] Dr. Neisha Araiza AST [Catalytic activity/Vol] 19 U/L Normal 15-37 [facility] Comment on above: Performed By: #### C BC #### [facility] [address] [place] [address] Dr. Neisha Araiza Bilirubin [Mass/Vol] 1.0 mg/dL Normal 0.2-1.0 [facility] Comment on above: Performed By: #### C BC #### [facility] [address] [address] [address] Neisha Araiza Calcium [Mass/Vol] 8.1 mg/dL Critically low 8.5-10.1 [facility] Comment on above: Performed By: #### C BC #### [facility] [address] [address] [address] Neisha Araiza Chloride [Moles/Vol] 95 mmol/L Critically low 98-107 [facility] Comment on above: Performed By: #### C BC #### [facility] [address] [place] [address] Dr. Neisha Araiza CO2 [Moles/Vol] 19.2 mmol/L Critically low 21.0-32.0 [facility] Comment on above: Performed By: #### C BC #### [facility] [address] [place] [address] Dr. Neisha Araiza Creatinine [Mass/Vol] 0.51 mg/dL Critically low 0.55-1.02 [facility] Comment on above: Performed By: #### C BC #### [facility] [address] [place] [address] Dr. Neisha Araiza EGFR-AF PAKISTANI >60 Normal >=60 [facility] Comment on above: Performed By: #### C BC #### [facility] [address] [place] [address] Dr. Neisha Araiza EGFR-NON AF PAK[place]ANI >60 Normal >=60 [facility] Comment on above: Performed By: #### C BC #### [facility] [address] [place] [address] Dr. Neisha Araiza Globulin (S) [Mass/Vol] 3.6 g/dL Normal [facility] Comment on above: Performed By: #### C BC #### [facility] [address] [place] [address] Dr. Neisha Araiza Glucose [Mass/Vol] 230 mg/dL Critically high 74-106 T [facility] Comment on above: Performed By: #### C BC #### [facility] [address] [place] [address] Dr. Neisha Araiza Potassium [Moles/Vol] 3.1 mmol/L Critically low 3.5-5.1 [facility] Comment on above: Performed By: #### C BC #### [facility] [address] [place] [address] Dr. Neisha Araiza Protein [Mass/Vol] 6.7 g/dL Normal 6.4-8.2 [facility] Comment on above: Performed By: #### C BC #### [facility] [address] [place] [address] Dr. Neisha Araiza Sodium [Moles/Vol] 129 mmol/L Critically low 136-145 Th [facility] Comment on above: Performed By: #### C BC #### [facility] [address] [place] [address] Dr. Neisha Araiza Urea nitrogen [Mass/Vol] 5.0 mg/dL Critically low 7.0-18.0 [facility] Comment on above: Performed By: #### C BC #### [facility] [address] [place] [address] Dr. Neisha Araiza Urea nitrogen/Creatinine [Mass ratio] 9.8 mg/mg Normal [facility] Comment on above: Performed By: #### C BC #### [facility] [address] [place] [address] Dr. Neisha Araiza CBC AUTO DIFFon 12-11-2021 BASO # 0.0 103/ul Normal 0.0-0.1 [facility] Comment on above: Performed By: #### C BC #### [facility] [address] [place] [address] Dr. Neisha Araiza Basophils/100 WBC (Bld) 0.5 % Normal 0.2-2.0 [facility] Comment on above: Performed By: #### C BC #### [facility] [address] [place] [address] Dr. Neisha Araiza EO # 0.0 103/ul Normal 0.0-0.7 [facility] Comment on above: Performed By: #### C BC #### [facility] [address] [place] [address] Dr. Neisha Araiza Eosinophils/100 WBC (Bld) 0.2 % Critically low 0.9-7.0 [facility] Comment on above: Performed By: #### C BC #### [facility] [address] [place] [address] Dr. Neisha Araiza Erythrocyte distribution width (RBC) [Ratio] 12.4 % Normal 11.0-15.0 [facility] Comment on above: Performed By: #### C BC #### [facility] [address] [place] [address] Dr. Neisah Araiza Hematocrit (Bld) [Volume fraction] 39.3 % Normal 36.0-48.0 [facility] Comment on above: Performed By: #### C BC #### [facility] [address] [place] [address] Dr. Neisha Araiza Hemoglobin (Bld) [Mass/Vol] 13.5 g/dL Normal 12.0-16.0 [facility] Comment on above: Performed By: #### C BC #### [facility] [address] [place] [address] Dr. Neisha Araiza IG # 0.04 10e3/ul Critically high 0.00-0.03 [facility] Comment on above: Performed By: #### C BC #### [facility] [address] [place] [address] Dr. Neisha Araiza IG % 0.5 % Normal 0.0-0.5 [facility] Comment on above: Performed By: #### C BC #### [facility] [address] [place] [address] Dr. Neisha Araiza LYMPH # 1.8 103/ul Normal 1.2-3.8 [facility] Comment on above: Performed By: #### C BC #### [facility] [address] [place] [address] Dr. Neisha Araiza Lymphocytes/100 WBC (Bld) 21.7 % Normal 20.5-60.0 [facility] Comment on above: Performed By: #### C BC #### [facility] [address] [place] [address] Dr. Neisha Araiza MANUAL DIFF REQ NO Normal [facility] Comment on above: Performed By: #### C BC #### [facility] [address] [place] [address] Dr. Neisha Araiza MCH (RBC) [Entitic mass] 28.2 pg Normal 26.7-34.0 [facility] Comment on above: Performed By: #### C BC #### [facility] [address] [place] [address] Dr. Neisha Araiza MCHC (RBC) [Mass/Vol] 34.4 g/dL Normal 29.9-35.2 [facility] Comment on above: Performed By: #### C BC #### [facility] [address] [place] [address] Dr. Neisha Araiza MCV (RBC) [Entitic vol] 82.2 fL Normal 81.0-99.0 [facility] Comment on above: Performed By: #### C BC #### [facility] [address] [place] [address] Dr. Neisha Araiza MONO # 0.5 103/ul Normal 0.3-0.8 [facility] Comment on above: Performed By: #### C BC #### [facility] [address] [place] [address] Dr. Neisha Araiza Monocytes/100 WBC (Bld) 6.4 % Normal 1.7-12.0 [facility] Comment on above: Performed By: #### C BC #### [facility] [address] [place] [address] Dr. Neisha Araiza NEUT # 5.7 103/ul Normal 1.4-6.5 [facility] Comment on above: Performed By: #### C BC #### [facility] [address] [place] [address] Dr. Neisha Araiza Neutrophils/100 WBC (Bld) 70.7 % Normal 43.0-75.0 [facility] Comment on above: Performed By: #### C BC #### [facility] [address] [place] [address] Dr. Neisha Araiza Platelet mean volume (Bld) [Entitic vol] 9.4 fL Critically low 9.5-13.5 [facility] Comment on above: Performed By: #### C BC #### [facility] [address] [place] [address] Dr. Neisha Araiza PLT 250 103/ul Normal 150-450 [facility] Comment on above: Performed By: #### C BC #### [facility] [address] [place] [address] Dr. Neisha Araiza RBC 4.78 106/ul Normal 4.20-5.40 [facility] Comment on above: Performed By: #### C BC #### [facility] [address] [place] [address] Dr. Neisha Araiza WBC 8.1 103/ul Normal 4.0-11.0 [facility] Comment on above: Performed By: #### C BC #### [facility] [address] [place] [address] Dr. Neisha Araiza POINT OF CARE GLUCOSEon 11-30 Glucose [Mass/Vol] 232 mg/dL Critically high 74-106 [facility] Comment on above: Performed By: #### L AURELIANO DRIVER, CMP #### [facility] [address] [place] [address] Dr. Neisha Araiza Glucose [Mass/Vol] 197 mg/dL Critically high -106 [facility] Comment on above: Performed By: #### L AURELIANO DRIVER, CMP #### [facility] [address] [place] [address] Dr. Neisha Araiza Glucose [Mass/Vol] 289 mg/dL Critically high -106 [facility] Comment on above: Performed By: #### C BC #### [facility] [address] [place] [address] Dr. Neisha Araiza Glucose [Mass/Vol] 200 mg/dL Critically high -106 [facility] Comment on above: Performed By: #### A CETON #### [facility] [address] [place] [address] Dr. Neisha Araiza PROF 14(COMP METB)on 022 Albumin [Mass/Vol] 2.9 g/dL Critically low 3.4-5.0 [facility] Comment on above: Performed By: #### L AURELIANO DRIVER, CMP #### [facility] [address] [address] [address] Neisha Araiza Albumin/Globulin [Mass ratio] 0.8 {ratio} Normal [facility] Comment on above: Performed By: #### L NEISHA AURELIANO, CMP #### [facility] [address] [address] [address] Neisha Araiza ALP [Catalytic activity/Vol] 90 U/L Normal 46-116 [facility] Comment on above: Performed By: #### L AURELIANO DRIVER, CMP #### [facility] [address] [place] [address] Dr. Neisha Araiza ALT [Catalytic activity/Vol] 26 U/L Normal 14-59 [facility] Comment on above: Performed By: #### L AURELIANO DRIVER, CMP #### [facility] [address] [address] [address] Neisha Araiza Anion gap [Moles/Vol] 17.6 mmol/L Normal [facility] Comment on above: Performed By: #### L AURELIANO DRIVER, CMP #### [facility] [address] [place] [address] Dr. Neisha Araiza AST [Catalytic activity/Vol] 19 U/L Normal 15-37 [facility] Comment on above: Performed By: #### L AURELIANO DRIVER, CMP #### [facility] [address] [address] [address] Neisha Araiza Bilirubin [Mass/Vol] 0.8 mg/dL Normal 0.2-1.0 [facility] Comment on above: Performed By: #### L AURELIANO DRIVER, CMP #### [facility] [address] [address] [address] Neisha Araiza Calcium [Mass/Vol] 7.9 mg/dL Critically low 8.5-10.1 [facility] Comment on above: Performed By: #### L NEISHA AURELIANO, CMP #### [facility] [address] [address] [address] Neisha Araiza Chloride [Moles/Vol] 98 mmol/L Normal 98-107 [facility] Comment on above: Performed By: #### L AURELIANO DRIVER, CMP #### [facility] [address] [address] [address] Neisha Araiza CO2 [Moles/Vol] 18.6 mmol/L Critically low 21.0-32.0 [facility] Comment on above: Performed By: #### L AURELIANO DRIVER, CMP #### [facility] [address] [address] [address] Neisha Araiza Creatinine [Mass/Vol] 0.50 mg/dL Critically low 0.55-1.02 [facility] Comment on above: Performed By: #### L AURELIANO DRIVER, CMP #### [facility] [address] [place] [address] Dr. Neisha Araiza EGFR-AF PAKISTANI >60 Normal >=60 [facility] Comment on above: Performed By: #### L AURELIANO DRIVER, CMP #### [facility] [address] [place] [address] Dr. Neisha Araiza EGFR-NON AF PAKISTANI >60 Normal >=60 [facility] Comment on above: Performed By: #### L AURELIANO DRIVER, CMP #### [facility] [address] [place] [address] Dr. Neisha Araiza Globulin (S) [Mass/Vol] 3.5 g/dL Normal [facility] Comment on above: Performed By: #### L AURELIANO DRIVER, CMP #### [facility] [address] [place] [address] Dr. Neisha Araiza Glucose [Mass/Vol] 195 mg/dL Critically high 74-106 [facility] Comment on above: Performed By: #### L AURELIANO DRIVER, CMP #### [facility] [address] [place] [address] Dr. Neisha Araiza Potassium [Moles/Vol] 3.2 mmol/L Critically low 3.5-5.1 [facility] Comment on above: Performed By: #### L IPA, AURELIANO, CMP #### [facility] [address] [address] [address] Neisha Araiza Protein [Mass/Vol] 6.4 g/dL Normal 6.4-8.2 [facility] Comment on above: Performed By: #### L IPA, AURELIANO, CMP #### [facility] [address] [place] [address] Dr. Neisha Araiza Sodium [Moles/Vol] 131 mmol/L Critically low 136-145 [facility] Comment on above: Performed By: #### L IPA AURELIANO, CMP #### [facility] [address] [place] [address] Dr. Neisha Araiza Urea nitrogen [Mass/Vol] 7.0 mg/dL Normal 7.0-18.0 [facility] Comment on above: Performed By: #### L NEISHA AURELIANO, CMP #### [facility] [address] [place] [address] Dr. Neisha Araiza Urea nitrogen/Creatinine [Mass ratio] 14.0 mg/mg Normal [facility] Comment on above: Performed By: #### L AURELIANO DRIVER, CMP #### [facility] [address] [place] [address] Dr. Neisha Araiza ACETONE SERUMon 12-10-2021 ACETONE SMALL Abnormal NEGATIVE [facility] Comment on above: Performed By: #### L AURELIANO RDIVER, CMP #### [facility] [address] [place] [address] Dr. Neisha Araiza AMYLASEon 12-10-2021 Amylase [Catalytic activity/Vol] 31 U/L Normal 25-115 [facility] Comment on above: Performed By: #### L AURELIANO DRIVER, CMP #### [facility] [address] [place] [address] Dr. Neisha Araiaz CBC AUTO DIFFon 12-10-2021 BASO # 0.0 103/ul Normal 0.0-0.1 [facility] Comment on above: Performed By: #### C BC #### [facility] [address] [place] [address] Dr. Neisha Araiza Basophils/100 WBC (Bld) 0.5 % Normal 0.2-2.0 [facility] Comment on above: Performed By: #### C BC #### [facility] [address] [place] [address] Dr. Neisha Araiza EO # 0.0 103/ul Normal 0.0-0.7 [facility] Comment on above: Performed By: #### C BC #### [facility] [address] [place] [address] Dr. Neisha Araiza Eosinophils/100 WBC (Bld) 0.0 % Critically low 0.9-7.0 [facility] Comment on above: Performed By: #### C BC #### [facility] [address] [place] [address] Dr. Neisha Araiza Erythrocyte distribution width (RBC) [Ratio] 12.5 % Normal 11.0-15.0 [facility] Comment on above: Performed By: #### C BC #### [facility] [address] [place] [address] Dr. Neisha Araiza Hematocrit (Bld) [Volume fraction] 43.3 % Normal 36.0-48.0 [facility] Comment on above: Performed By: #### C BC #### [facility] [address] [place] [address] Dr. Neisha Araiza Hemoglobin (Bld) [Mass/Vol] 15.3 g/dL Normal 12.0-16.0 [facility] Comment on above: Performed By: #### C BC #### [facility] [address] [place] [address] Dr. Neisha Araiza IG # 0.06 10e3/ul Critically high 0.00-0.03 [facility] Comment on above: Performed By: #### C BC #### [facility] [address] [place] [address] Dr. Neisha Araiza IG % 0.7 % Critically high 0.0-0.5 [facility] Comment on above: Performed By: #### C BC #### [facility] [address] [place] [address] Dr. Neisha Araiza LYMPH # 0.9 103/ul Critically low 1.2-3.8 [facility] Comment on above: Performed By: #### C BC #### [facility] [address] [place] [address] Dr. Neisha Araiza Lymphocytes/100 WBC (Bld) 10.8 % Critically low 20.5-60.0 [facility] Comment on above: Performed By: #### C BC #### [facility] [address] [place] [address] Dr. Neisha Araiza MANUAL DIFF REQ NO Normal [facility] Comment on above: Performed By: #### C BC #### [facility] [address] [place] [address] Dr. Neisha Araiza MCH (RBC) [Entitic mass] 28.4 pg Normal 26.7-34.0 [facility] Comment on above: Performed By: #### C BC #### [facility] [address] [place] [address] Dr. Neisha Araiza MCHC (RBC) [Mass/Vol] 35.3 g/dL Critically high 29.9-35.2 [facility] Comment on above: Performed By: #### C BC #### [facility] [address] [place] [address] Dr. Neisha Araiza MCV (RBC) [Entitic vol] 80.3 fL Critically low 81.0-99.0 [facility] Comment on above: Performed By: #### C BC #### [facility] [address] [place] [address] Dr. Neisha Araiza MONO # 0.5 103/ul Normal 0.3-0.8 [facility] Comment on above: Performed By: #### C BC #### [facility] [address] [place] [address] Dr. Neisha Araiza Monocytes/100 WBC (Bld) 5.7 % Normal 1.7-12.0 [facility] Comment on above: Performed By: #### C BC #### [facility] [address] [place] [address] Dr. Neisha Araiza NEUT # 7.0 103/ul Critically high 1.4-6.5 [facility] Comment on above: Performed By: #### C BC #### [facility] [address] [address] [address] Neisha Araiza Neutrophils/100 WBC (Bld) 82.3 % Critically high 43.0-75.0 [facility] Comment on above: Performed By: #### C BC #### [facility] [address] [address] [address] Neisha Araiza Platelet mean volume (Bld) [Entitic vol] 9.4 fL Critically low 9.5-13.5 [facility] Comment on above: Performed By: #### C BC #### [facility] [address] [address] [address] Neisha Araiza PLT 271 103/ul Normal 150-450 [facility] Comment on above: Performed By: #### C BC #### [facility] [address] [address] [address] Neisha Araiza RBC 5.39 106/ul Normal 4.20-5.40 [facility] Comment on above: Performed By: #### C BC #### [facility] [address] [address] [address] Neisha Araiza WBC 8.5 103/ul Normal 4.0-11.0 [facility] Comment on above: Performed By: #### C BC #### [facility] [address] [address] [address] ABD/PELVIS WO CONon [...] MATTHEW SILVER Date: 2021-12-10 14:48 Normal [facility] CULTURE URINEon 12-10-2021 CULTURE URINE Culture Observations: GREATER THAN TWO ORGANISMS PRESENT. PLEASE RESUBMIT CLEAN CATCH MID-STREAM URINE IF CLINICALLY INDICATED. Normal [facility] Comment on above: Performed By: #### A CETSIENA #### [facility] [address] [place] [address] Dr. Neisha Araiza [facility] SARS-CoV-2 (COVID-19) RNA TIM+probe Ql (Unsp spec) Not detected Normal NOT DETECTED [facility] Comment on above: Result Comment: When diagnostic [...] for this test is supported by the [place] [employer] and Human Service's declaration that [...] By: #### L AURELIANO DRIVER, CMP #### [facility] [address] [address] [address] Neisha Araiza DRUG SCREEN RAPID (URINE)on 12-10-2021 AMP Negative Normal NEGATIVE [facility] Comment on above: Performed By: #### A CETON #### [facility] [address] [address] [address] Neisha Araiza BAR Negative Normal NEGATIVE [facility] Comment on above: Performed By: #### A CETON #### [facility] [address] [address] [address] Neisha Araiza BUP Negative Normal NEGATIVE [facility] Comment on above: Performed By: #### A CETON #### [facility] [address] [place] [address] Dr. Neisha Araiza BZO Negative Normal NEGATIVE [facility] Comment on above: Performed By: #### A CETON #### [facility] [address] [place] [address] Dr. Neisha Araiza VIVEK Negative Normal NEGATIVE [facility] Comment on above: Performed By: #### A CETON #### [facility] [address] [address] [address] Neisha Araiza CUT-OFFS SEE BELOW Normal [facility] Comment on above: Result Comment: AMP [...] ng/mL Performed By: #### A CETON #### [facility] [address] [place] [address] Dr. Neisha Araiza DRUG CUT HEADER DRUG CLASS TEST SYSTEM CUT-OFF CONCENTRATIONS ARE FOLLOWS: Normal [facility] Comment on above: Performed By: #### A CETON #### [facility] [address] [address] [address] Neisha Araiza mAMP Negative Normal NEGATIVE [facility] Comment on above: Performed By: #### A CETON #### [facility] [address] [address] [address] Neisha Araiza MTD Negative Normal NEGATIVE [facility] Comment on above: Performed By: #### A CETON #### [facility] [address] [address] [address] Neisha Araiza OPI Negative Normal NEGATIVE [facility] Comment on above: Performed By: #### A CETON #### [facility] [address] [place] [address] Dr. Neisha Araiza OXY Negative Normal NEGATIVE [facility] Comment on above: Performed By: #### A CETON #### [facility] [address] [place] [address] Dr. Neisha Araiza PCP Negative Normal NEGATIVE [facility] Comment on above: Performed By: #### A CETON #### [facility] [address] [place] [address] Dr. Neisha Araiza PPX Negative Normal NEGATIVE [facility] Comment on above: Performed By: #### A CETON #### [facility] [address] [place] [address] Dr. Neisha Araiza TCA Negative Normal NEGATIVE [facility] Comment on above: Performed By: #### A CETON #### [facility] [address] [place] [address] Dr. Neisha Araiza THC Negative Normal NEGATIVE [facility] Comment on above: Performed By: #### A CETON #### [facility] [address] [address] [address] Neisha Araiza ER URINE PROFILEon 2 Bilirubin Ql (U) Negative Normal NEGATIVE [facility] Comment on above: Performed By: #### E RUR, DRUGRPD #### [facility] [address] [place] [address] Dr. Neisha Araiza Clarity (U) CLEAR Normal CLEAR [facility] Comment on above: Performed By: #### E RUR, DRUGRPD #### [facility] [address] [place] [address] Dr. Neisha Araiza Color (U) YELLOW Normal YELLOW [facility] Comment on above: Performed By: #### E RUR, DRUGRPD #### [facility] [address] [place] [address] Dr. Neisha FERNANDEZAHMagnus A micrscopic examination will be performed if indicated. Normal [facility] Comment on above: Performed By: #### E RUR, DRUGRPD #### [facility] [address] [place] [address] Dr. Neisha Araiza Glucose Ql (U) 250 mg/dl Abnormal NEGATIVE [facility] Comment on above: Performed By: #### E RUR, DRUGRPD #### [facility] [address] [place] [address] Dr. Neisha Araiza Hemoglobin Ql (U) Negative Normal NEGATIVE [facility] Comment on above: Performed By: #### E RUR, DRUGRPD #### [facility] [address] [place] [address] Dr. Neisha Ariaza Ketones Ql (U) 15 mg/dl Abnormal NEGATIVE [facility] Comment on above: Performed By: #### E RUR, DRUGRPD #### [facility] [address] [place] [address] Dr. Neisha Araiza LEUKOCYTES Negative Normal NEGATIVE [facility] Comment on above: Performed By: #### E RUR, DRUGRPD #### [facility] [address] [place] [address] Dr. Neisha Araiza Nitrite Ql (U) Negative Normal NEGATIVE [facility] Comment on above: Performed By: #### E RUR, DRUGRPD #### [facility] [address] [place] [address] Dr. Neisha Araiza pH (U) 6.0 [pH] Normal 5-9 [facility] Comment on above: Performed By: #### E RUR, DRUGRPD #### [facility] [address] [place] [address] Dr. Neisha Araiza SPEC GRAVITY 1.020 Normal 1.005-<=1.025 [facility] Comment on above: Performed By: #### Tiffany HAILE DRUGRPD #### [facility] [address] [place] [address] Dr. Neisha Araiza UA PROTEIN Negative Normal NEGATIVE/ TRACE [facility] Comment on above: Performed By: #### Tiffany HAILE DRUGRPD #### [facility] [address] [place] [address] Dr. Neisha Araiza UR MICRO IND NOT INDICATED Normal [facility] Comment on above: Performed By: #### Tiffany HAILE DRUGRPD #### [facility] [address] [place] [address] Dr. Neisha Araiza Urobilinogen Qn (U) 0.2 {Ankit'U}/dL Normal 0.2 - 1. 0 [facility] Comment on above: Performed By: #### Tiffany HAILE DRUGRPD #### [facility] [address] [place] [address] Dr. Neisha Araiza H PYLORI ANTIBODY IGGon 11-30 H. PYLORI IGG ABS 0.29 Index Value Normal 0.00-0.79 [facility] Comment on above: Result Comment: Nega tive <0.80 Equivocal 0.80 - 0.89 Positive >0.89 Performed By: #### C BC #### [facility] [address] [place] [address] Dr. Neisha Araiza INFLUENZA A AND B AGon 12-10 INFLUANEGH SEE BELOW Normal [facility] Comment on above: Result Comment: Nega tive for Flu A protein angiten. Infection due to Flu A cannot be ruled out. Flu A angiten in the sample may be below the detection limit of the test. Performed By: #### C BC #### [facility] [address] [place] [address] Dr. Neisha Araiza INFLUBNEGH SEE BELOW Normal [facility] Comment on above: Result Comment: Nega tive for Flu B protein antigen. Infection due to Flu B cannot be ruled out. Flu B antigen in the sample may be below the detection limit of the test. Performed By: #### C BC #### [facility] [address] [place] [address] Dr. Neisha Araiza INFLUENZA A AG Negative Normal NEGATIVE SEE COMMENT [facility] Comment on above: Performed By: #### C BC #### [facility] [address] [place] [address] Dr. Neisha Araiza INFLUENZA B AG Negative Normal NEGATIVE SEE COMMENT [facility] Comment on above: Performed By: #### C BC #### [facility] [address] [place] [address] Dr. Neisha Araiza INTERNAL CONTROLS Within Normal Limits Normal Wi thin Normal Limits [facility] Comment on above: Performed By: #### C BC #### [facility] [address] [place] [address] Dr. Neisha Araiza LACTATE/LACTIC ACIDon 2021 Lactate [Moles/Vol] 0.9 mmol/L Normal 0.4-1.9 [facility] Comment on above: Performed By: #### C BC #### [facility] [address] [place] [address] Dr. Neisha Araiza Lactate [Moles/Vol] 0.8 mmol/L Normal 0.4-1.9 [facility] Comment on above: Performed By: #### C BC #### [facility] [address] [place] [address] Dr. Neisha Araiza LIPASEon 12-10-2021 Lipase [Catalytic activity/Vol] 146.0 U/L Normal 73.0-393.0 [facility] Comment on above: Performed By: #### L IPA, AURELIANO, CMP #### [facility] [address] [place] [address] Dr. Neisha Araiza POINT OF CARE GLUCOSEon 11-30 Glucose [Mass/Vol] 222 mg/dL Critically high 74-106 [facility] Comment on above: Performed By: #### C BC #### [facility] [address] [place] [address] Dr. Neisha Araiza PREG HCG QUALon 12-10-2021 , QUAL Negative Normal NEGATIVE [facility] Comment on above: Performed By: #### L AURELIANO DRIVER, CMP #### [facility] [address] [address] [address] Neisha Araiza PROF 14(COMP METB)on 022 Albumin [Mass/Vol] 3.7 g/dL Normal 3.4-5.0 [facility] Comment on above: Performed By: #### L NEISHA AURELIANO, CMP #### [facility] [address] [place] [address] Dr. Neisha Araiza Albumin/Globulin [Mass ratio] 0.9 {ratio} Normal [facility] Comment on above: Performed By: #### L AURELIANO DRIVER, CMP #### [facility] [address] [place] [address] Dr. Neisha Araiza ALP [Catalytic activity/Vol] 118 U/L Critically high 46-116 [facility] Comment on above: Performed By: #### L NEISHA AURELIANO, CMP #### [facility] [address] [place] [address] Dr. Neisha Araiza ALT [Catalytic activity/Vol] 36 U/L Normal 14-59 [facility] Comment on above: Performed By: #### L AURELIANO DRIVER, CMP #### [facility] [address] [place] [address] Dr. Neisha Araiza Anion gap [Moles/Vol] 17.8 mmol/L Normal [facility] Comment on above: Performed By: #### L NEISHA AURELIANO, CMP #### [facility] [address] [place] [address] Dr. Neisha Araiza AST [Catalytic activity/Vol] 22 U/L Normal 15-37 [facility] Comment on above: Performed By: #### L NEISHA AURELIANO, CMP #### [facility] [address] [place] [address] Dr. Neisha Araiza Bilirubin [Mass/Vol] 0.9 mg/dL Normal 0.2-1.0 [facility] Comment on above: Performed By: #### L NEISHA AURELIANO, CMP #### [facility] [address] [address] [address] Neisha Araiza Calcium [Mass/Vol] 8.8 mg/dL Normal 8.5-10.1 [facility] Comment on above: Performed By: #### L AURELIANO DRIVER, CMP #### [facility] [address] [address] [address] Neisha Araiza Chloride [Moles/Vol] 99 mmol/L Normal 98-107 [facility] Comment on above: Performed By: #### L AURELIANO DRIVER, CMP #### [facility] [address] [address] [address] Neisha Araiza CO2 [Moles/Vol] 19.6 mmol/L Critically low 21.0-32.0 [facility] Comment on above: Performed By: #### L AURELIANO DRIVER, CMP #### [facility] [address] [place] [address] Dr. Neisha Araiza Creatinine [Mass/Vol] 0.52 mg/dL Critically low 0.55-1.02 [facility] Comment on above: Performed By: #### L AURELIANO DRIVER, CMP #### [facility] [address] [address] [address] Neisha Araiza EGFR-AF PAKISTANI >60 Normal >=60 [facility] Comment on above: Performed By: #### L AURELIANO DRIVER, CMP #### [facility] [address] [place] [address] Dr. Neisha Araiza EGFR-NON AF PAKISTANI >60 Normal >=60 [facility] Comment on above: Performed By: #### L AURELIANO DRIVER, CMP #### [facility] [address] [address] [address] Neisha Araiza Globulin (S) [Mass/Vol] 4.2 g/dL Normal [facility] Comment on above: Performed By: #### L AURELIANO DRIVER, CMP #### [facility] [address] [place] [address] Dr. Neisha Araiza Glucose [Mass/Vol] 172 mg/dL Critically high 74-106 T [facility] Comment on above: Performed By: #### L AURELIANO DRIVER, CMP #### [facility] [address] [place] [address] Dr. Neisha Araiza Potassium [Moles/Vol] 3.4 mmol/L Critically low 3.5-5.1 [facility] Comment on above: Performed By: #### L AURELIANO DRIVER, CMP #### [facility] [address] [place] [address] Dr. Neisha Araiza Protein [Mass/Vol] 7.9 g/dL Normal 6.4-8.2 [facility] Comment on above: Performed By: #### L AURELIANO DRIVER, CMP #### [facility] [address] [place] [address] Dr. Neisha Araiza Sodium [Moles/Vol] 133 mmol/L Critically low 136-145 [facility] Comment on above: Performed By: #### L AURELIANO DRIVER, CMP #### [facility] [address] [place] [address] Dr. Neisha Araiza Urea nitrogen [Mass/Vol] 11.0 mg/dL Normal 7.0-18.0 [facility] Comment on above: Performed By: #### L AURELIANO DRIVER, CMP #### [facility] [address] [place] [address] Dr. Neisha Araiza Urea nitrogen/Creatinine [Mass ratio] 21.2 mg/mg Normal [facility] Comment on above: Performed By: #### L AURELIANO DRIVER, CMP #### [facility] [address] [place] [address] Dr. Neisha Araiza TSHon 12-10-2021 TSH 0.594 uIU/mL Normal 0.358-3.740 [facility] Comment on above: Performed By: #### L AURELIANO DRIVER, CMP #### [facility] [address] [place] [address] Dr. Neisha Araiza TSH RANGE SEE BELOW Normal [facility] Comment on above: Result Comment: <0.3 4 UIU/ml HYPERTHYROID 0.34-5.60 UIU/ml EUTHYROID >5.60 UIU/ml HYPOTHYROID Performed By: #### L AURELIANO DRIVER, CMP #### [facility] [address] [place] [address] Dr. Neisha Araiza CBC AUTO DIFFon 12-09-2021 BASO # 0.0 103/ul Normal 0.0-0.1 [facility] Comment on above: Performed By: #### L IPA, AURELIANO, CMP #### [facility] [address] [place] [address] Dr. Neisha Araiza Basophils/100 WBC (Bld) 0.4 % Normal 0.2-2.0 [facility] Comment on above: Performed By: #### L IPA, AURELIANO, CMP #### [facility] [address] [place] [address] Dr. Neisha Araiza EO # 0.0 103/ul Normal 0.0-0.7 [facility] Comment on above: Performed By: #### L IPA, AURELIANO, CMP #### [facility] [address] [place] [address] Dr. Neisha Araiza Eosinophils/100 WBC (Bld) 0.1 % Critically low 0.9-7.0 [facility] Comment on above: Performed By: #### L IPA AURELIANO, CMP #### [facility] [address] [place] [address] Dr. Neisha Araiza Erythrocyte distribution width (RBC) [Ratio] 12.8 % Normal 11.0-15.0 [facility] Comment on above: Performed By: #### L IPA AURELIANO, CMP #### [facility] [address] [place] [address] Dr. Neisha Araiza Hematocrit (Bld) [Volume fraction] 41.1 % Normal 36.0-48.0 [facility] Comment on above: Performed By: #### L IPA, AURELIANO, CMP #### [facility] [address] [place] [address] Dr. Neisha Araiza Hemoglobin (Bld) [Mass/Vol] 13.8 g/dL Normal 12.0-16.0 [facility] Comment on above: Performed By: #### L IPA, AURELIANO, CMP #### [facility] [address] [place] [address] Dr. Neisha Araiza IG # 0.05 10e3/ul Critically high 0.00-0.03 [facility] Comment on above: Performed By: #### L AURELIANO DRIVER, CMP #### [facility] [address] [place] [address] Dr. Neisha Araiza IG % 0.5 % Normal 0.0-0.5 [facility] Comment on above: Performed By: #### L AURELIANO DRIVER, CMP #### [facility] [address] [place] [address] Dr. Neisha Araiza LYMPH # 2.1 103/ul Normal 1.2-3.8 [facility] Comment on above: Performed By: #### L AURELIANO DRIVER, CMP #### [facility] [address] [place] [address] Dr. Neisha Araiza Lymphocytes/100 WBC (Bld) 22.8 % Normal 20.5-60.0 [facility] Comment on above: Performed By: #### L AURELIANO DRIVER, CMP #### [facility] [address] [place] [address] Dr. Neisha Araiza MANUAL DIFF REQ NO Normal [facility] Comment on above: Performed By: #### L AURELIANO DRIVER, CMP #### [facility] [address] [place] [address] Dr. Neisha Araiza MCH (RBC) [Entitic mass] 28.3 pg Normal 26.7-34.0 [facility] Comment on above: Performed By: #### L AURELIANO DRIVER, CMP #### [facility] [address] [place] [address] Dr. Neisha Araiza MCHC (RBC) [Mass/Vol] 33.6 g/dL Normal 29.9-35.2 [facility] Comment on above: Performed By: #### L AURELIANO DRIVER, CMP #### [facility] [address] [place] [address] Dr. Neisha Araiza MCV (RBC) [Entitic vol] 84.4 fL Normal 81.0-99.0 [facility] Comment on above: Performed By: #### L AURELIANO DRIVER, CMP #### [facility] [address] [place] [address] Dr. Neisha Araiza MONO # 0.6 103/ul Normal 0.3-0.8 [facility] Comment on above: Performed By: #### L AURELIANO DRIVER, CMP #### [facility] [address] [place] [address] Dr. Neisha Araiza Monocytes/100 WBC (Bld) 6.0 % Normal 1.7-12.0 [facility] Comment on above: Performed By: #### L AURELIANO DRIVER, CMP #### [facility] [address] [place] [address] Dr. Neisha Araiza NEUT # 6.4 103/ul Normal 1.4-6.5 [facility] Comment on above: Performed By: #### L AURELIANO DRIVER, CMP #### [facility] [address] [place] [address] Dr. Neisha Araiza Neutrophils/100 WBC (Bld) 70.2 % Normal 43.0-75.0 [facility] Comment on above: Performed By: #### L AURELIANO DRIVER, CMP #### [facility] [address] [place] [address] Dr. Neisha Araiza Platelet mean volume (Bld) [Entitic vol] 9.8 fL Normal 9.5-13.5 [facility] Comment on above: Performed By: #### L AURELIANO DRIVER, CMP #### [facility] [address] [place] [address] Dr. Neisha Araiza PLT 258 103/ul Normal 150-450 [facility] Comment on above: Performed By: #### L AURELIANO DRIVER, CMP #### [facility] [address] [place] [address] Dr. Neisha Araiza RBC 4.87 106/ul Normal 4.20-5.40 [facility] Comment on above: Performed By: #### L AURELIANO DRIVER, CMP #### [facility] [address] [place] [address] Dr. Neisha Araiza WBC 9.1 103/ul Normal 4.0-11.0 [facility] Comment on above: Performed By: #### L AURELIANO DRIVER, CMP #### [facility] [address] [address] [address] Neisha Araiza POINT OF CARE GLUCOSEon 11-30 Glucose [Mass/Vol] 222 mg/dL Critically high 74-106 [facility] Comment on above: Performed By: #### C BC #### [facility] [address] [place] [address] Dr. Neisha Araiza Glucose [Mass/Vol] 225 mg/dL Critically high 74-106 [facility] Comment on above: Performed By: #### C BC #### [facility] [address] [place] [address] Dr. Neisha Araiza PROF 14(COMP METB)on 022 Albumin [Mass/Vol] 3.1 g/dL Critically low 3.4-5.0 [facility] Comment on above: Performed By: #### C BC #### [facility] [address] [place] [address] Dr. Neisha Araiza Albumin/Globulin [Mass ratio] 0.9 {ratio} Normal [facility] Comment on above: Performed By: #### C BC #### [facility] [address] [place] [address] Dr. Neisha Araiza ALP [Catalytic activity/Vol] 99 U/L Normal 46-116 [facility] Comment on above: Performed By: #### C BC #### [facility] [address] [place] [address] Dr. Neisha Araiza ALT [Catalytic activity/Vol] 28 U/L Normal 14-59 [facility] Comment on above: Performed By: #### C BC #### [facility] [address] [place] [address] Dr. Neisha Araiza Anion gap [Moles/Vol] 15.0 mmol/L Normal [facility] Comment on above: Performed By: #### C BC #### [facility] [address] [place] [address] Dr. Neisha Araiza AST [Catalytic activity/Vol] 12 U/L Critically low 15-37 [facility] Comment on above: Performed By: #### C BC #### [facility] [address] [address] [address] Neisha Araiza Bilirubin [Mass/Vol] 1.3 mg/dL Critically high 0.2-1.0 [facility] Comment on above: Performed By: #### C BC #### [facility] [address] [address] [address] Neisha Araiza Calcium [Mass/Vol] 7.5 mg/dL Critically low 8.5-10.1 [facility] Comment on above: Performed By: #### C BC #### [facility] [address] [address] [address] Neisha Araiza Chloride [Moles/Vol] 101 mmol/L Normal 98-107 [facility] Comment on above: Performed By: #### C BC #### [facility] [address] [place] [address] Dr. Neisha Araiza CO2 [Moles/Vol] 14.9 mmol/L Critically low 21.0-32.0 [facility] Comment on above: Performed By: #### C BC #### [facility] [address] [address] [address] Neisha Araiza Creatinine [Mass/Vol] 0.52 mg/dL Critically low 0.55-1.02 [facility] Comment on above: Performed By: #### C BC #### [facility] [address] [place] [address] Dr. Neisha Araiza EGFR-AF PAKISTANI >60 Normal >=60 [facility] Comment on above: Performed By: #### C BC #### [facility] [address] [place] [address] Dr. Neisha Araiza EGFR-NON AF PAKISTANI >60 Normal >=60 [facility] Comment on above: Performed By: #### C BC #### [facility] [address] [place] [address] Dr. Neisha Araiza Globulin (S) [Mass/Vol] 3.6 g/dL Normal [facility] Comment on above: Performed By: #### C BC #### [facility] [address] [place] [address] Dr. Neisha Araiza Glucose [Mass/Vol] 232 mg/dL Critically high 74-106 T [facility] Comment on above: Performed By: #### C BC #### [facility] [address] [address] [address] Neisha Araiza Potassium [Moles/Vol] 3.9 mmol/L Normal 3.5-5.1 [facility] Comment on above: Performed By: #### C BC #### [facility] [address] [address] [address] Neisha Araiza Protein [Mass/Vol] 6.7 g/dL Normal 6.4-8.2 [facility] Comment on above: Performed By: #### C BC #### [facility] [address] [place] [address] Dr. Neisha Araiza Sodium [Moles/Vol] 127 mmol/L Critically low 136-145 [facility] Comment on above: Performed By: #### C BC #### [facility] [address] [place] [address] Dr. Neisha Araiza Urea nitrogen [Mass/Vol] 9.0 mg/dL Normal 7.0-18.0 [facility] Comment on above: Performed By: #### C BC #### [facility] [address] [place] [address] Dr. Neisha Araiza Urea nitrogen/Creatinine [Mass ratio] 17.3 mg/mg Normal [facility] Comment on above: Performed By: #### C BC #### [facility] [address] [place] [address] Dr. Neisha Araiza UA RANDOM W/MICROSCOPICon BACTERIA NONE SEEN Normal NONE SEEN [facility] Comment on above: Performed By: #### U AMIC #### [facility] [address] [place] [address] Dr. Neisha Araiza Bilirubin Ql (U) Negative Normal NEGATIVE [facility] Comment on above: Performed By: #### U AMIC #### [facility] [address] [place] [address] Dr. Neisha Araiza CAST NONE SEEN Normal NONE SEEN [facility] Comment on above: Performed By: #### U AMIC #### [facility] [address] [address] [address] Neisha Araiza Clarity (U) CLEAR Normal CLEAR [facility] Comment on above: Performed By: #### U AMIC #### [facility] [address] [address] [address] Neisha Araiza Color (U) LT. YELLOW Normal YELLOW [facility] Comment on above: Performed By: #### U AMIC #### [facility] [address] [address] [address] Neisha Araiza Crystals LM Nom (Urine sed) NONE SEEN Normal NONE SEEN [facility] Comment on above: Performed By: #### U AMIC #### [facility] [address] [place] [address] Dr. Neisha Araiza Epithelial cells LM Ql (Urine sed) FEW Abnormal NONE SEEN /RARE [facility] Comment on above: Performed By: #### U AMIC #### [facility] [address] [place] [address] Dr. Neisha Araiza Glucose Ql (U) 500 mg/dl Abnormal NEGATIVE [facility] Comment on above: Performed By: #### U AMIC #### [facility] [address] [address] [address] Neisha Araiza Hemoglobin Ql (U) Negative Normal NEGATIVE [facility] Comment on above: Performed By: #### U AMIC #### [facility] [address] [address] [address] Neisha Araiza Ketones Ql (U) 80 mg/dl Abnormal NEGATIVE [facility] Comment on above: Performed By: #### U AMIC #### [facility] [address] [address] [address] Neisha Araiza LEUKOCYTES Negative Normal NEGATIVE [facility] Comment on above: Performed By: #### U AMIC #### [facility] [address] [place] [address] Dr. Neisha Araiza MUCOUS NONE SEEN Normal NONE SEEN [facility] Comment on above: Performed By: #### U AMIC #### [facility] [address] [address] [address] Neisha Araiza Nitrite Ql (U) Negative Normal NEGATIVE [facility] Comment on above: Performed By: #### U AMIC #### [facility] [address] [place] [address] Dr. Neisha Araiza pH (U) 6.0 [pH] Normal 5-9 [facility] Comment on above: Performed By: #### U AMIC #### [facility] [address] [address] [address] Neisha Araiza RBC NONE SEEN Abnormal 0-2 [facility] Comment on above: Performed By: #### U AMIC #### [facility] [address] [place] [address] Dr. Neisha Araiza SPEC GRAVITY 1.030 Abnormal 1.005-<=1.025 [facility] Comment on above: Performed By: #### U AMIC #### [facility] [address] [place] [address] Dr. Neisha Araiza UA PROTEIN TRACE Normal NEGATIVE/ TRACE [facility] Comment on above: Performed By: #### U AMIC #### [facility] [address] [place] [address] Dr. Neisha Araiza Urobilinogen Qn (U) 0.2 {Ankit'U}/dL Normal 0.2 - 1. 0 [facility] Comment on above: Performed By: #### U AMIC #### [facility] [address] [place] [address] Dr. Neisha Araiza WBC 0-2 Abnormal NONE SEEN [facility] Comment on above: Performed By: #### U AMIC #### [facility] [address] [place] [address] Dr. Neisha Araiza AMYLASEon 12-08-2021 Amylase [Catalytic activity/Vol] 31 U/L Normal 25-115 [facility] Comment on above: Performed By: #### L IPA, AURELIANO, CMP #### [facility] [address] [place] [address] Dr. Neisha Araiza CBC AUTO DIFFon 12-08-2021 BASO # 0.0 103/ul Normal 0.0-0.1 [facility] Comment on above: Performed By: #### C BC #### [facility] [address] [place] [address] Dr. Neisha Araiza Basophils/100 WBC (Bld) 0.4 % Normal 0.2-2.0 [facility] Comment on above: Performed By: #### C BC #### [facility] [address] [place] [address] Dr. Neisha Araiza EO # 0.0 103/ul Normal 0.0-0.7 [facility] Comment on above: Performed By: #### C BC #### [facility] [address] [place] [address] Dr. Neisha Araiza Eosinophils/100 WBC (Bld) 0.0 % Critically low 0.9-7.0 [facility] Comment on above: Performed By: #### C BC #### [facility] [address] [place] [address] Dr. Neisah Araiza Erythrocyte distribution width (RBC) [Ratio] 12.9 % Normal 11.0-15.0 [facility] Comment on above: Performed By: #### C BC #### [facility] [address] [place] [address] Dr. Neisha Araiza Hematocrit (Bld) [Volume fraction] 43.8 % Normal 36.0-48.0 [facility] Comment on above: Performed By: #### C BC #### [facility] [address] [place] [address] Dr. Neisha Araiza Hemoglobin (Bld) [Mass/Vol] 14.7 g/dL Normal 12.0-16.0 [facility] Comment on above: Performed By: #### C BC #### [facility] [address] [place] [address] Dr. Neisha Araiza IG # 0.06 10e3/ul Critically high 0.00-0.03 [facility] Comment on above: Performed By: #### C BC #### [facility] [address] [place] [address] Dr. Neisha Araiza IG % 0.6 % Critically high 0.0-0.5 [facility] Comment on above: Performed By: #### C BC #### [facility] [address] [place] [address] Dr. Neisha Araiza LYMPH # 1.4 103/ul Normal 1.2-3.8 [facility] Comment on above: Performed By: #### C BC #### [facility] [address] [place] [address] Dr. Neisha Araiza Lymphocytes/100 WBC (Bld) 12.7 % Critically low 20.5-60.0 [facility] Comment on above: Performed By: #### C BC #### [facility] [address] [place] [address] Dr. Neisha Araiza MANUAL DIFF REQ NO Normal [facility] Comment on above: Performed By: #### C BC #### [facility] [address] [place] [address] Dr. Neisha Araiza MCH (RBC) [Entitic mass] 28.2 pg Normal 26.7-34.0 [facility] Comment on above: Performed By: #### C BC #### [facility] [address] [place] [address] Dr. Neisha Araiza MCHC (RBC) [Mass/Vol] 33.6 g/dL Normal 29.9-35.2 [facility] Comment on above: Performed By: #### C BC #### [facility] [address] [place] [address] Dr. Neisha Araiza MCV (RBC) [Entitic vol] 84.1 fL Normal 81.0-99.0 [facility] Comment on above: Performed By: #### C BC #### [facility] [address] [place] [address] Dr. Neisha Araiza MONO # 0.5 103/ul Normal 0.3-0.8 [facility] Comment on above: Performed By: #### C BC #### [facility] [address] [place] [address] Dr. Neisha Araiza Monocytes/100 WBC (Bld) 4.7 % Normal 1.7-12.0 [facility] Comment on above: Performed By: #### C BC #### [facility] [address] [place] [address] Dr. Neisha Araiza NEUT # 8.8 103/ul Critically high 1.4-6.5 [facility] Comment on above: Performed By: #### C BC #### [facility] [address] [place] [address] Dr. Neisha Araiza Neutrophils/100 WBC (Bld) 81.6 % Critically high 43.0-75.0 [facility] Comment on above: Performed By: #### C BC #### [facility] [address] [place] [address] Dr. Neisha Araiza Platelet mean volume (Bld) [Entitic vol] 10.0 fL Normal 9.5-13.5 [facility] Comment on above: Performed By: #### C BC #### [facility] [address] [place] [address] Dr. Neisha Araiza PLT 293 103/ul Normal 150-450 [facility] Comment on above: Performed By: #### C BC #### [facility] [address] [place] [address] Dr. Neisha Araiza RBC 5.21 106/ul Normal 4.20-5.40 [facility] Comment on above: Performed By: #### C BC #### [facility] [address] [place] [address] Dr. Neisha Araiza WBC 10.7 103/ul Normal 4.0-11.0 [facility] Comment on above: Performed By: #### C BC #### [facility] [address] [place] [address] Dr. Neisha Araiza Covid-19 PCR ([facility])on SARS-CoV-2 (COVID-19) RNA TIM+probe Ql (Unsp spec) Not detected Normal NOT DETECTED [facility] Comment on above: Result Comment: When diagnostic [...] for this test is supported by the Senior Policy Associate of Health and Human Service's declaration that [...] used). Performed By: #### C BC #### [facility] [address] [place] [address] Dr. Neisha Araiza LACTATE/LACTIC ACIDon 2021 Lactate [Moles/Vol] 1.5 mmol/L Normal 0.4-1.9 [facility] Comment on above: Performed By: #### C BC #### [facility] [address] [place] [address] Dr. Neisha Araiza LIPASEon 12-08-2021 Lipase [Catalytic activity/Vol] 149.0 U/L Normal 73.0-393.0 [facility] Comment on above: Performed By: #### L AURELIANO DRIVER, CMP #### [facility] [address] [place] [address] Dr. Neisha Araiza POINT OF CARE GLUCOSEon Glucose [Mass/Vol] 282 mg/dL Critically high 74-106 [facility] Comment on above: Performed By: #### A CETON #### [facility] [address] [place] [address] Dr. Neisha Araiza PROF 14(COMP METB)on 022 Albumin [Mass/Vol] 3.6 g/dL Normal 3.4-5.0 [facility] Comment on above: Performed By: #### L AURELIANO DRIVER, CMP #### [facility] [address] [place] [address] Dr. Neisha Araiza Albumin/Globulin [Mass ratio] 0.9 {ratio} Normal [facility] Comment on above: Performed By: #### L IPA, AURELIANO, CMP #### [facility] [address] [place] [address] Dr. Neisha Araiza ALP [Catalytic activity/Vol] 105 U/L Normal 46-116 [facility] Comment on above: Performed By: #### L IPA, AURELIANO, CMP #### [facility] [address] [place] [address] Dr. Neisha Araiza ALT [Catalytic activity/Vol] 32 U/L Normal 14-59 [facility] Comment on above: Performed By: #### L IPA AURELIANO, CMP #### [facility] [address] [place] [address] Dr. Neisha Araiza Anion gap [Moles/Vol] 23.2 mmol/L Normal [facility] Comment on above: Performed By: #### L IPA AURELIANO, CMP #### [facility] [address] [place] [address] Dr. Neisha Araiza AST [Catalytic activity/Vol] 15 U/L Normal 15-37 [facility] Comment on above: Performed By: #### L IPA AURELIANO, CMP #### [facility] [address] [place] [address] Dr. Neisha Araiza Bilirubin [Mass/Vol] 1.3 mg/dL Critically high 0.2-1.0 [facility] Comment on above: Performed By: #### L IPA AURELIANO, CMP #### [facility] [address] [place] [address] Dr. Neisha Araiza Calcium [Mass/Vol] 8.0 mg/dL Critically low 8.5-10.1 [facility] Comment on above: Performed By: #### L IPA AURELIANO, CMP #### [facility] [address] [place] [address] Dr. Neisha Araiza Chloride [Moles/Vol] 96 mmol/L Critically low 98-107 [facility] Comment on above: Performed By: #### L IPA AURELIANO, CMP #### [facility] [address] [place] [address] Dr. Neisha Araiza CO2 [Moles/Vol] 14.8 mmol/L Critically low 21.0-32.0 [facility] Comment on above: Performed By: #### L AURELIANO DRIVER, CMP #### [facility] [address] [address] [address] Neisha Araiza Creatinine [Mass/Vol] 0.62 mg/dL Normal 0.55-1.02 [facility] Comment on above: Performed By: #### L AURELIANO DRIVER, CMP #### [facility] [address] [address] [address] Neisha Araiza EGFR-AF PAKISTANI >60 Normal >=60 [facility] Comment on above: Performed By: #### L AURELIANO DRIVER, CMP #### [facility] [address] [address] [address] Neisha Araiza EGFR-NON AF PAKISTANI >60 Normal >=60 [facility] Comment on above: Performed By: #### L AURELIANO DRIVER, CMP #### [facility] [address] [address] [address] Neisha Araiza Globulin (S) [Mass/Vol] 4.2 g/dL Normal [facility] Comment on above: Performed By: #### L AURELIANO DRIVER, CMP #### [facility] [address] [address] [address] Neisha Araiza Glucose [Mass/Vol] 285 mg/dL Critically high 74-106 [facility] Comment on above: Performed By: #### L AURELIANO DRIVER, CMP #### [facility] [address] [address] [address] Neisha Araiza Potassium [Moles/Vol] 4.0 mmol/L Normal 3.5-5.1 [facility] Comment on above: Performed By: #### L AURELIANO DRIVER, CMP #### [facility] [address] [address] [address] Neisha Araiza Protein [Mass/Vol] 7.8 g/dL Normal 6.4-8.2 [facility] Comment on above: Performed By: #### L AURELIANO DRIVER, CMP #### [facility] [address] [address] [address] Neisha Araiza Sodium [Moles/Vol] 130 mmol/L Critically low 136-145 [facility] Comment on above: Performed By: #### L AURELIANO DRIVER, CMP #### [facility] [address] [place] [address] Dr. Neisha Araiza Urea nitrogen [Mass/Vol] 12.0 mg/dL Normal 7.0-18.0 [facility] Comment on above: Performed By: #### L AURELIANO DRIVER, CMP #### [facility] [address] [place] [address] Dr. Neisha Araiza Urea nitrogen/Creatinine [Mass ratio] 19.4 mg/mg Normal [facility] Comment on above: Performed By: #### L AURELIANO DRIVER, CMP #### [facility] [address] [place] [address] Dr. Neisha Araiza AMYLASEon 12-07-2021 Amylase [Catalytic activity/Vol] 20 U/L Critically low 25-115 [facility] Comment on above: Performed By: #### A CETON #### [facility] [address] [place] [address] Dr. Neisha Araiza BILIRUBIN CONJUGATED (DIRECT )on 12-07-2021 BILI, CONJUGATED 0.2 mg/dL Normal 0.0-0.2 [facility] Comment on above: Performed By: #### C BC #### [facility] [address] [place] [address] Dr. Neisha Araiza CBC AUTO DIFFon 12-07-2021 BASO # 0.0 103/ul Normal 0.0-0.1 [facility] Comment on above: Performed By: #### L AURELIANO DRIVER, CMP #### [facility] [address] [place] [address] Dr. Neisha Araiza Basophils/100 WBC (Bld) 0.3 % Normal 0.2-2.0 [facility] Comment on above: Performed By: #### L AURELIANO DRIVER, CMP #### [facility] [address] [place] [address] Dr. Neisha Araiza EO # 0.0 103/ul Normal 0.0-0.7 [facility] Comment on above: Performed By: #### L AURELIANO DRIVER, CMP #### [facility] [address] [place] [address] Dr. Neisha Araiza Eosinophils/100 WBC (Bld) 0.0 % Critically low 0.9-7.0 [facility] Comment on above: Performed By: #### L AURELIANO DRIVER, CMP #### [facility] [address] [place] [address] Dr. Neisha Araiza Erythrocyte distribution width (RBC) [Ratio] 12.7 % Normal 11.0-15.0 [facility] Comment on above: Performed By: #### L AURELIANO DRIVER, CMP #### [facility] [address] [place] [address] Dr. Neisha Araiza Hematocrit (Bld) [Volume fraction] 44.9 % Normal 36.0-48.0 [facility] Comment on above: Performed By: #### L AURELIANO DRIVER, CMP #### [facility] [address] [place] [address] Dr. Neisha Araiza Hemoglobin (Bld) [Mass/Vol] 15.4 g/dL Normal 12.0-16.0 [facility] Comment on above: Performed By: #### L AURELIANO DRIVER, CMP #### [facility] [address] [place] [address] Dr. Neisha Araiza IG # 0.03 10e3/ul Normal 0.00-0.03 [facility] Comment on above: Performed By: #### L AURELIANO DRIVER, CMP #### [facility] [address] [place] [address] Dr. Neisha Araiza IG % 0.3 % Normal 0.0-0.5 [facility] Comment on above: Performed By: #### L AURELIANO DRIVER, CMP #### [facility] [address] [place] [address] Dr. Neisha Araiza LYMPH # 1.2 103/ul Normal 1.2-3.8 [facility] Comment on above: Performed By: #### L AURELIANO DRIVER, CMP #### [facility] [address] [address] [address] Neisha Araiza Lymphocytes/100 WBC (Bld) 12.2 % Critically low 20.5-60.0 [facility] Comment on above: Performed By: #### L AURELIANO DRIVER, CMP #### [facility] [address] [address] [address] Neisha Araiza MANUAL DIFF REQ NO Normal [facility] Comment on above: Performed By: #### L NEISHA AURELIANO, CMP #### [facility] [address] [place] [address] Dr. Neisha Araiza MCH (RBC) [Entitic mass] 28.3 pg Normal 26.7-34.0 [facility] Comment on above: Performed By: #### L AURELIANO DRIVER, CMP #### [facility] [address] [place] [address] Dr. Neisha Araiza MCHC (RBC) [Mass/Vol] 34.3 g/dL Normal 29.9-35.2 [facility] Comment on above: Performed By: #### L NEISHA AURELIANO, CMP #### [facility] [address] [place] [address] Dr. Neisha Araiza MCV (RBC) [Entitic vol] 82.5 fL Normal 81.0-99.0 [facility] Comment on above: Performed By: #### L AURELIANO DRIVER, CMP #### [facility] [address] [place] [address] Dr. Neisha Araiza MONO # 0.3 103/ul Normal 0.3-0.8 [facility] Comment on above: Performed By: #### L IPA AURELIANO, CMP #### [facility] [address] [place] [address] Dr. Neisha Araiza Monocytes/100 WBC (Bld) 3.1 % Normal 1.7-12.0 [facility] Comment on above: Performed By: #### L IPA AURELIANO, CMP #### [facility] [address] [place] [address] Dr. Neisha Araiza NEUT # 8.1 103/ul Critically high 1.4-6.5 [facility] Comment on above: Performed By: #### L IPAAURELIANO, CMP #### [facility] [address] [address] [address] Neisha Araiza Neutrophils/100 WBC (Bld) 84.1 % Critically high 43.0-75.0 [facility] Comment on above: Performed By: #### L IPA AURELIANO, CMP #### [facility] [address] [place] [address] Dr. Neisha Araiza Platelet mean volume (Bld) [Entitic vol] 9.8 fL Normal 9.5-13.5 [facility] Comment on above: Performed By: #### L NEISHA AURELIANO, CMP #### [facility] [address] [place] [address] Dr. Neisha Araiza PLT 263 103/ul Normal 150-450 [facility] Comment on above: Performed By: #### L NEISHA AURELIANO, CMP #### [facility] [address] [place] [address] Dr. Neisha Araiza RBC 5.44 106/ul Critically high 4.20-5.40 [facility] Comment on above: Performed By: #### L AURELIANO DRIVER, CMP #### [facility] [address] [place] [address] Dr. Neisha Araiza WBC 9.6 103/ul Normal 4.0-11.0 [facility] Comment on above: Performed By: #### L AURELIANO DRIVER, CMP #### [facility] [address] [place] [address] Dr. Neisha Araiza LIPASEon 12-07-2021 Lipase [Catalytic activity/Vol] 73.0 U/L Normal 73.0-393.0 [facility] Comment on above: Performed By: #### A CETON #### [facility] [address] [place] [address] Dr. Neisha Araiza PROF 14(COMP METB)on 022 Albumin [Mass/Vol] 3.8 g/dL Normal 3.4-5.0 [facility] Comment on above: Performed By: #### A CETON #### [facility] [address] [place] [address] Dr. Neisha Araiza Albumin/Globulin [Mass ratio] 0.9 {ratio} Normal [facility] Comment on above: Performed By: #### A CETON #### [facility] [address] [place] [address] Dr. Neisha Araiza ALP [Catalytic activity/Vol] 120 U/L Critically high 46-116 [facility] Comment on above: Performed By: #### A CETON #### [facility] [address] [place] [address] Dr. Neisha Araiza ALT [Catalytic activity/Vol] 34 U/L Normal 14-59 [facility] Comment on above: Performed By: #### A CETON #### [facility] [address] [place] [address] Dr. Neisha Araiza Anion gap [Moles/Vol] 20.0 mmol/L Normal [facility] Comment on above: Performed By: #### A CETON #### [facility] [address] [place] [address] Dr. Neisha Araiza AST [Catalytic activity/Vol] 18 U/L Normal 15-37 [facility] Comment on above: Performed By: #### A CETON #### [facility] [address] [place] [address] Dr. Neisha Araiza Bilirubin [Mass/Vol] 1.1 mg/dL Critically high 0.2-1.0 [facility] Comment on above: Performed By: #### A CETON #### [facility] [address] [place] [address] Dr. Neisha Araiza Calcium [Mass/Vol] 8.5 mg/dL Normal 8.5-10.1 [facility] Comment on above: Performed By: #### A CETON #### [facility] [address] [place] [address] Dr. Neisha Araiza Chloride [Moles/Vol] 94 mmol/L Critically low 98-107 [facility] Comment on above: Performed By: #### A CETON #### [facility] [address] [place] [address] Dr. Neisha Araiza CO2 [Moles/Vol] 18.9 mmol/L Critically low 21.0-32.0 [facility] Comment on above: Performed By: #### A CETON #### [facility] [address] [place] [address] Dr. Neisha Araiza Creatinine [Mass/Vol] 0.59 mg/dL Normal 0.55-1.02 [facility] Comment on above: Performed By: #### A CETON #### [facility] [address] [address] [address] Neisha Araiza EGFR-AF PAKISTANI >60 Normal >=60 [facility] Comment on above: Performed By: #### A CETON #### [facility] [address] [place] [address] Dr. Neisha Araiza EGFR-NON AF PAKISTANI >60 Normal >=60 [facility] Comment on above: Performed By: #### A CETON #### [facility] [address] [place] [address] Dr. Neisha Araiza Globulin (S) [Mass/Vol] 4.1 g/dL Normal [facility] Comment on above: Performed By: #### A CETON #### [facility] [address] [place] [address] Dr. Neisha Araiza Glucose [Mass/Vol] 322 mg/dL Critically high 74-106 [facility] Comment on above: Performed By: #### A CETON #### [facility] [address] [place] [address] Dr. Neisha Araiza Potassium [Moles/Vol] 3.9 mmol/L Normal 3.5-5.1 [facility] Comment on above: Performed By: #### A CETON #### [facility] [address] [place] [address] Dr. Neisha Araiza Protein [Mass/Vol] 7.9 g/dL Normal 6.4-8.2 [facility] Comment on above: Performed By: #### A CETON #### [facility] [address] [place] [address] Dr. Neisha Araiza Sodium [Moles/Vol] 129 mmol/L Critically low 136-145 [facility] Comment on above: Performed By: #### A CETON #### [facility] [address] [address] [address] Neisha Araiza Urea nitrogen [Mass/Vol] 12.0 mg/dL Normal 7.0-18.0 [facility] Comment on above: Performed By: #### A CETON #### [facility] [address] [address] [address] Neisha Araiza Urea nitrogen/Creatinine [Mass ratio] 20.3 mg/mg Normal [facility] Comment on above: Performed By: #### A CETON #### [facility] [address] [address] [address] Neisha Araiza Vital Signs Date Time Vital Sign Value Performing Clinician [facility]ome[facility] nba 10-04-2024 07:29-0500 Body height 165.1 cm Amy Love MD Work Phone: [facility] 10-04-2024 07:29-0500 Body mass index (BMI) [Ratio] 28.62 kg/m2 Amy Love MD Work Phone: [facility] 10-04-2024 07:29-0500 Body temperature 98.2 [degF] Amy Love MD Work Phone: [facility] 10-04-2024 07:29-0500 Body weight 78.02 kg Amy Love MD Work Phone: [facility] 10-04-2024 07:29-0500 Diastolic blood pressure 92 mm[Hg] Amy Love MD Work Phone: [facility] 10-04-2024 07:29-0500 Heart rate 116 /min Amy Love MD Work Phone: [facility] 10-04-2024 07:29-0500 Respiratory rate 20 /min Amy Love MD Work Phone: [facility] 10-04-2024 07:29-0500 SaO2% (BldA) [Mass fraction] 96 % Amy Love MD Work Phone: [employer] 10-04-2024 07:29-0500 Systolic blood pressure 160 mm[Hg] Amy Love MD Work Phone: [employer] 08-28-2024 15:14-0500 Diastolic blood pressure 92 mm[Hg] Sanchez Mancilla MD Work Phone: [employer] 08-28-2024 15:14-0500 Systolic blood pressure 150 mm[Hg] Sanchez Mancilla MD Work Phone: [employer] 08-28-2024 14:05-0500 Body height 165.1 cm Sanchez Mancilla MD Work Phone: [employer] 08-28-2024 14:05-0500 Body mass index (BMI) [Ratio] 29.29 kg/m2 Sanchez Mancilla MD Work Phone: [employer] 08-28-2024 14:05-0500 Body temperature 97.9 [degF] Sanchez Mancilla MD Work Phone: [employer] 08-28-2024 14:05-0500 Body weight 79.83 kg Sanchez Mancilla MD Work Phone: [employer] 08-28-2024 14:05-0500 Heart rate 116 /min Sanchez Mancilla MD Work Phone: [employer] 08-28-2024 14:05-0500 Respiratory rate 20 /min Sanchez Mancilla MD Work Phone: [employer] 08-28-2024 14:05-0500 SaO2% (BldA) [Mass fraction] 99 % Sanchez Mancilla MD Work Phone: [employer] 07-09-2024 08:36-0500 Body height 165.1 cm Amisha Nguyen MD Work Phone: [employer] 07-09-2024 08:36-0500 Body mass index (BMI) [Ratio] 3 kg/m2 Amisha Nguyen MD Work Phone: [employer] 07-09-2024 08:36-0500 Body temperature 98.6 [degF] Amisha Nguyen MD Work Phone: [employer] 07-09-2024 08:36-0500 Body weight 8.16 kg Amisha Nguyen MD Work Phone: [employer] 07-09-2024 08:36-0500 Diastolic blood pressure 99 mm[Hg] Amisha Nguyen MD Work Phone: [employer] 07-09-2024 08:36-0500 Heart rate 106 /min Amisha Nguyen MD Work Phone: [employer] 07-09-2024 08:36-0500 Respiratory rate 16 /min Amisha Nguyen MD Work Phone: [employer] 07-09-2024 08:36-0500 SaO2% (BldA) [Mass fraction] 98 % Amisha Nguyen MD Work Phone: [employer] 07-09-2024 08:36-0500 Systolic blood pressure 146 mm[Hg] Amisha Nguyen MD Work Phone: [facility] 01-23-2023 18:06-0400 Hourly Rounding Mbanefo [facility] 01-23-2023 18:06-0400 Promise to Return Mbanefo [facility]JUKW[facility] 01-23-2023 17:21-0400 Hourly Rounding Mbanefo [facility]UK[facility] 01-23-2023 17:21-0400 Promise to Return Mbanefo [facility]UK[facility] 01-23-2023 16:21-0400 Hourly Rounding Mbanefo [facility] 01-23-2023 16:21-0400 Promise to Return Mbanefo [facility] 01-23-2023 14:00-0400 Blood Pressure Location Mbanefo [facility]JUK[facility] 01-23-2023 11:45-0400 Heart rate 74 /min Mbanefo [facility] 01-23-2023 11:45-0400 SaO2% (BldA) [Mass fraction] 98 % [facility]banefo [facility] 01-23-2023 11:45-0400 Diastolic blood pressure 87 mm[Hg] Mbanefo [facility] 01-23-2023 11:45-0400 Mean blood pressure 107 mm[Hg] Mbanefo [facility] 01-23-2023 11:45-0400 Systolic blood pressure 146 mm[Hg] Mbanefo [facility] 01-23-2023 11:45-0400 Body temperature 98.06 [degF] [facility]banefo [facility] 01-23-2023 08:47-0400 gluc 192 mg/dL Mbanefo [facility] 01-23-2023 08:46-0400 Diastolic blood pressure 95 mm[Hg] [facility]efo [facility] 01-23-2023 08:46-0400 Heart rate 88 /min [facility]banefo [facility] 01-23-2023 08:46-0400 Systolic blood pressure 155 mm[Hg] Mbanefo [facility] 01-23-2023 08:03-0400 Heart rate 83 /min Mbanefo [facility] 01-23-2023 08:03-0400 SaO2% (BldA) [Mass fraction] 98 % [facility]banefo [facility] 01-23-2023 08:03-0400 Mean blood pressure 115 mm[Hg] Mbanefo [facility] 01-23-2023 08:02-0400 Body temperature 98.24 [degF] Mbanefo [facility] 01-23-2023 01:40-0400 Blood Pressure Location Mbanefo [facility] 01-23-2023 01:40-0400 Body temperature 98.06 [degF] Mbanefo [facility] 01-23-2023 01:40-0400 Heart rate 91 /min Mbanefo [facility] 01-23-2023 01:40-0400 Mean blood pressure 119 mm[Hg] Mbanefo [facility] 01-23-2023 01:40-0400 Respiratory rate 18 /min [facility] 01-23-2023 01:40-0400 SaO2% (BldA) [Mass fraction] 98 % Mbanefo [facility] 01-22-2023 20:59-0400 Heart rate 94 /min Mbanefo [facility] 01-22-2023 19:00-0400 Mean blood pressure 108 mm[Hg] Mbanefo [facility] 01-22-2023 15:33-0400 Respiratory rate 18 /min Mbanefo [facility] 01-22-2023 15:32-0400 Mean blood pressure 101 mm[Hg] Mbanefo [facility] 01-22-2023 11:35-0400 Heart rate 67 /min Mbanefo [facility] 01-22-2023 08:40-0400 gluc 215 mg/dL Mbanefo [facility] 01-22-2023 04:53-0400 Mean blood pressure 97 mm[Hg] Mbanefo [facility] 01-21-2023 18:42-0400 Respiratory rate 15 /min Mbanefo [facility] 01-21-2023 17:54-0400 Respiratory rate 21 /min Mbanefo [facility] 01-21-2023 17:45-0400 Respiratory rate 16 /min Mbanefo [facility] 01-21-2023 16:20-0400 Heart rate 87 /min Mbanefo [facility] Encounters Encounter Date Encounter Type Care Provider Facility Start: 10-04-2024 End: 10-04-2024 Emergency department patient visit Amy Love MD Work Phone: [facility] Comment on above: Viral illness (Prima ry Dx) Start: 08-28-2024 End: 08-28-2024 Emergency department patient visit Sanchez Mancilla MD Work Phone: [facility] Comment on above: Blood glucose elevat ed (Primary Dx); Hyperglycemia due to diabetes mellitus (HCC); Dehydration Start: 07-09-2024 End: 07-09-2024 Emergency department patient visit Amisha Nguyen MD Work Phone: [facility] Comment on above: Infective otitis ext [place] of left ear (Primary Dx); Herpes zoster without complication Start: 02-05-2023 End: 02-05-2023 ambulatory [facility] Start: 01-23-2023 ambulatory Facility:[id number] Start: 01-22-2023 ambulatory Facility:[id number] Start: 01-21-2023 End: 01-23-2023 ambulatory Abhishek Monter[place] [place]: 01-21-2023 End: 01-23-2023 Observation Ellie [facility] Start: 12-12-2022 End: 12-12-2022 Emergency department patient visit Pako Metzger [place] [place]: 06-15-2022 End: 06-15-[address] MOLLY [...] Date Procedure Procedure Detail Performing Clinician Start: 10-04-2024 COVID-19, RAPID Amy parker MD Work Phone: Start: 10-04-2024 Iaadiadoo influenza Amy Love MD Work Phone: Start: 08-28-2024 Ecg routine ecg w/le ast [...] Work Phone: Percutaneous coronar y intervention Ellie DODSONKWU Comment on above: stent to LCX Plan of Treatment Date Care Activity Detail Author Start: 04-02-2024 COVID-19 Vaccine ( season) COVID-19 Vaccine ( season) [facility] Start: 04-02-2024 COVID-19 Vaccine ( season) COVID-19 Vaccine ( season) [facility] Start: 03-02-2024 Influenza vaccination Flu vaccine (# 1) [facility] Start: 1997 DTaP/Tdap/Td vaccine (1 - Tdap) DTaP/Tdap/Td vaccine (1 - Tdap) [facility] End: 08-28-2024 Blood gas, venous Blood gas, venous Lab Routine One Time for 1 Occurrences starting 08/28/2024 until 08/28/2024 [employer] Comment on above: One Time for 1 Occur rences starting 08/28/2024 until 08/28/2024 EKG 12 Lead EKG 12 Lead ECG STAT 08/28/2024 4:47 PM EST [facility] [employer] Payers Date Payer Category Payer Medicaid [id number] 1980 Unknown [id number] 2.16.84 0.1.437177.3.579.2.593 1980 Unknown [id number] 2.16.84 0.1.421205.3.579.2.593 1978 Unknown [id number] 2.16.84 0.1.680580.3.579.2.593 1978 Unknown [id number] 2.16.84 0.1.752749.3.579.2.593 1978 Unknown [id number] 2.16.84 0.1.999516.3.579.2.593 1978 Unknown [id number] 2.16.84 0.1.780832.3.579.2.593 1978 Unknown [id number] 2.16.84 0.1.458646.3.579.2.593 1978 Unknown [id number] 2.16.84 0.1.462975.3.579.2.593 1978 Unknown [id number] 2.16.84 0.1.405477.3.579.2.593 1978 Unknown [id number] 2.16.8 40.1.067475.3.579.2.727 1978 Unknown [id number] 2.16.8 40.1.138574.3.579.2.727 1978 Unknown [id number] 2.16. 840.1.185561.3.579.2.356 1978 Unknown [id number] 2.16. 840.1.435683.3.579.2.356 1978 Unknown [id number] 2.16.8 40.1.212477.3.579.2.174 1978 Unknown [id number] 2.16.8 40.1.334953.3.579.2.174 1978 Unknown [id number] 2.16.8 40.1.420342.3.579.2.174 1959 Unknown [id number] Social History Date Type Detail Facility Tobacco Never smoker [facility] Comment on above: denies Tobacco smoking status No Smokin g Status Entered [facility] Start: 07-09-2024 End: 10-04-2024 Sex Assigned At Female [facility] Start: 07-09-2024 Tobacco smoking stat us LAIS Never smoked tobacco [employer] Start: 07-09-2024 Tobacco use and exposure Smokeless tobacco non-user [employer] Start: 07-09-2024 End: 10-04-2024 Alcoholic beverage intake Lifetime non-drinker (finding) [employer] Start: 1980 Sex assigned at Female [facility] [employer] Start: 07-09-2024 Gender identity Identifies as female gender (finding) [employer] Start: 07-09-2024 End: 10-04-2024 History of Social function [employer] How often to you hav e a drink containing alcohol? Never [employer] How many standard drinks containing alcohol do you have on a typical day? Patient does not drink [employer] NEGATED: Highlighted rowStart: KELVIN History of tobacco use Passive smoker [employer] Medical Equipment Procedure Code Equipment Code Equipment Origin al Text Equipment Identifier Dates PCI Unknown 01/22/23 Non Biological Left Circumflex Coronary Artery FDA Start: 01-22-2023 Comment on above: 2.75 mm x 28 mm Xien ce Coronary stent to LAD Functional Status Date Assessment Result Facility 01-21-2023 Functional Status No [facility] 01-21-2023 Functional Status [facility] Clinical Notes 01-05-2022 to 08-28-2024 Discharge InstructionsAttachments [...] be sent through Care Everywhere.Hyperglycemia: General Info (Iraqi)documented in this encounter [facility] 02-05-2023 Note Cardiology Clinic No [...] indefinitely -High intensi (more content not included)... [facility] 02-05-2023 Note New patient here to establish care. Ref from Dr. Carrillo for recent NSTEMI w/ PCI at [facility]. She wanted to see cardiology closer to home. She was started on Brilinta s/p PCI and is tolerating it well. [facility] 01-24-2023 Note Admission and Discha rge Information Admitting Physician - Bobby OBANDO MDfo Consulting Physician - Abhishek Monterroso MD. Admitting Diagnoses: Discharge Diagnoses 1. NSTEMI (non-ST [...] shoulder pain. She was subsequently admitted to [facility] with acute NSTEMI, elevated troponin, hypertensive urgency, right shoulder pain. She was treated with aspirin, Brilinta, Lipitor, nitroglycerin, Lovenox. She was also treated with lisinopril and Lopressor. She was seen in consultation by the block feeder and underwent echocardiogram that was essentially normal. [...] primary care physician as well as the block feeder accordingly. Physical Exam General: alert, no acute [...] 69.9 % Lymph Auto - 24.9 % Mccreary Auto - 4.6 % Eos Auto - 0.2 % Basophil Auto - 0.4 % Neutro Absolute - 7.4 E9/L Lymph Absolute - 2.6 E9/L Mccreary Absolute - 0.5 E9/L Eos Absolute - [...] - 255 mg/dL POC Device SN - [id number] POC User ID - [id number] POC Username - JUDIE PARRH CBC w/ Auto Diff (01/22/2023) WBC - [...] - NEGATIVE1 UA (more content not included)... [facility] Comment on above: Result Comment: Elec tronically Signed By: Ellie OBANDO MD\.br\Date and Time Signed: 01/24/23 19:32 EDT 01-23-2023 Evaluation + Plan note Extrac donovan from: Title:APSO Note Author:Ellie OBANDO MD Date: 40-year-old female noncigarette smoker with [...] Lipitor, lisinopril, Lopressor. Treated with Lovenox. Ordered: [facility] Care/Day Moderate 35 Minutes 99869 2. Coronary artery disease (I25.10: Atherosclerotic heart disease of [place] coronary artery without angina pectoris) As seen on cardiac catheterization. Patient has coronary artery disease with mid left circumflex artery occlusion requiring 1 drug-eluting stent placement on 01/22/2023. Continue on aspirin, Brilinta, Lipitor, lisinopril and Lopressor. Ordered: [facility] Care/Day Moderate 35 Minutes 13722 3. Chest pain (R07.9: Chest pain, unspecified) Secondary to above. Resolved. Ordered: [facility] Care/Day Moderate 35 Minutes 17833 4. Elevated troponin (R77.8: Other specified abnormalities of plasma proteins) Secondary to above. Resolved. Ordered: [facility] Care/Day Moderate 35 Minutes 62297 5. Hypertensive urgency (I16.0: Hypertensive urgency) Resolved. Continue on lisinopril and metoprolol. Ordered: [facility] Care/Day Moderate 35 Minutes 85353 6. Right shoulder pain (M25.511: Pain in right shoulder) Secondary to above #1. With atypical presentation. Ordered: [facility] Care/Day Moderate 35 Minutes 93925 7. Leukocytosis (D72.829: Elevated white blood cell [...] deep vein thrombosis (DVT) prophylaxis (Z79.899: 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 (current) drug therapy) SCDs. Disposition: Home either today or in a.m. pending cardiology final recommendations. I discussed the diagnosis and plan of care with the patient at the bedside. Moderate level of MDM based on addressing above issues. This documentation was transcribed using voice recognition software. Several attempts were made to ensure accuracy. However inadvertent computerized tractor drill operator errors may be present. Ellie Obando. Hospitalist. [...] Echo Transthoracic w/ Contrast HgbA1c Referral to [facility] Extracted from: Title:Procedure Note Heart & [...] deep vein thrombosis (DVT) prophylaxis (Z79.899: 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 (current) drug therapy) Orders: ticagrelor, 180 mg = 2 tab(s), Tab, Oral, Once, Stop date 01/22/23 14:32:00 EDT, NOW, Start date 01/22/23 14:32:00 EDT, 01/22/23 14:32:00 EDT ticagrelor, Tab, Misc, Once, Stop date 01/22/23 14:32:48 EDT, Physician Stop, 01/22/23 14:32:48 EDT CV Cardiovascular Extracted from: Title:APSO Note Author:GAGE HAIDER, Bobbyfo Date: 43-year-old female noncigarette smoker with history of diabetes mellitus, hypertension, obesity presented with chest pain, right shoulder pain and admitted with chest pain, elevated troponin, leukocytosis, hyperglycemia, hyponatremia, metabolic acidosis, right shoulder pain. 1. Chest pain (R07.9: Chest pain, unspecified) Chest pain secondary to acute coronary syndrome. Resolved. Continue on aspirin, nitroglycerin as needed, morphine and oxygen. Cardiology consult pending. Ordered: [facility] Care/Day Moderate 35 Minutes [id number] 2. Elevated troponin (R77.8: Other specified abnormalities of plasma proteins) Elevated troponin secondary to NSTEMI. Cardiology consult pending. Continue on aspirin, Lipitor, Lovenox. Echocardiogram pending. Ordered: [facility] Care/Day Moderate 35 Minutes 03416 3. NSTEMI (non-ST elevation myocardial infarction) (I21.4: Non-ST elevation (NSTEMI) myocardial infarction) Acute NSTEMI present on admission. Cardiology consult pending. Echocardiogram pending. Continue on aspirin, Lipitor, lisinopril, Lovenox. Ordered: [facility] Care/Day Moderate 35 Minutes 95221 4. Hypertensive urgency (I16.0: Hypertensive urgency) Resolved. Continue lisinopril. Ordered: [facility] Care/Day Moderate 35 Minutes 49848 5. Right shoulder pain (M25.511: Pain in right shoulder) Resolved. Ordered: [facility] Care/Day Moderate 35 Minutes 88714 6. Leukocytosis (D72.829: Elevated white blood cell [...] made to ensure accuracy. However inadvertent computerized tractor drill operator errors may be present. Ellie Obando. Hospitalist. [...] Ordered: [facility] Hospital Care/Day High 75 Minutes 33926 2. Elevated troponin (R77.8: Other specified abnormalities of plasma proteins) Elevated troponin mild. We will complete serial cardiac enzymes. Started patient on aspirin. If troponin trends up we will start patient on Lovenox or IV heparin. Check fasting lipid profile. Echocardiogram. Ordered: [facility] Hospital Care/Day High 75 Minutes 99683 3. Hypertensive urgency (I16.0: Hypertensive urgency) Continue lisinopril. IV hydralazine as needed. Ordered: [facility] Hospital Care/Day High 75 Minutes 00167 4. Right shoulder pain (M25.511: Pain in right shoulder) Musculoskeletal in origin. Started patient on as needed pain medications. Ordered: [facility] Hospital Care/Day High 75 Minutes 70851 5. Leukocytosis (D72.829: Elevated white blood cell count, unspecified) Secondary to steroid effect. Ordered: [facility] Hospital Care/Day High 75 Minutes 87795 6. Hyperglycemia (R73.9: Hyperglycemia, unspecified) Secondary to [...] deep vein thrombosis (DVT) prophylaxis (Z79.899: 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 (current) drug therapy) Lovenox. Disposition: The patient [...] made to ensure accuracy. However inadvertent computerized tractor drill operator errors may be present. Ellie Obando. Hospitalist. [...] Vital Signs Weight Extracted from: Title:ED Note Author:Daisy Campos M.D. te:01/21/23 1. Hypertensive urgency (I16 .0: Hypertensive [...] (Z79.899: Other penitentiary (current) drug therapy) Orders: nitroglycerin, 0.4 mg [...] ED Physician consult Hospitalist for continued care [facility]06-24-2023 Hospital Discharge instructions Patient Education 01/23/2023 09:22:37 CV - Cardiovascular PCI Discharge Instructions (CUSTOM) [place], [place] Cardiovascular PCI DISCHARGE INSTRUCTIONS Diet: Resume [...] hours post procedure: Actoplus MetGlucophageGlucophage XR GlucovanceAvandametFortamet Vjo-tnamvwwbuMevoxyRdpi-gyeptjrww GlumetzaJanumetMetaglip RiometGlycomet Minimal pain, soreness and/or discomfort is expected. If you are prescribed an aspirin and/or antiplatelet (such as Plavix, Brilinta or Effient) do NOT stop taking these medications for any reason without talking to your block feeder Site Care: Do not remove dressing for [...] interested in smoking cessation, contact [facility] at [phone], ext. [phone]. In the event you are unable to reach your physician, please call [facility] at [phone] and the head mva reactor operator will assist you. Seek Medicare Care [...] Up Care 01/21/2023 16:19:43 With:Abhishek Monterroso Address: [address] [place] [phone] Business (1) When:2 weeks Comments:Call for followup appointment With:Gentry Carrillo Address: [address] [place] [phone]- Business (1) When:01/27/2023 09:30:00 [facility]06-24-2023 NoteProcedure [facility] poss PCI via right radial Patient seen and examined. The risk/benefits of the procedure were thoroughly discussed with patient including specific attention to lack of onsite surgical backup and risk of akrl covid, and the patient agrees to proceed. 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 Gonzalez Transthoracic w/ 01/22/2023 11:42 EDT [id number] Ellie OBANDO MD Contrast CPT code [id number] Reason for Exam (Echo Transthoracic w/ Contrast) Chest pain Report [address] [address] Adult Echocardiogram Report Name: ESCOBAR ORTEGA Study Date: 01/22/2023 09:56 AM BP: 129/81 mmHg Patient Location: [address] [place] [address] HR: 89 : 1980 Gender: Female Height: 65 in Age: 43 yrs Ethnicity: [facility] Weight: 183 lb Reason For Study: Chest pain BSA: 1.9 m2 History: DM, HTN Ordering Physician: Ellie OBANDO Performed By: Rema Meléndez, [facility] Interpretation Summary Ejection Fraction = [...] mmHg FINAL REPORT Dictated: 01/22/2023 9:56 am Abhihsek Monterroso MD Signed (Electronic Signature): 01/22/2023 12:06 pm Signed by: Abhishek Monterroso MD Transcribed by: [facility] Technologist: [facility]06-22-2023 Note Chief Complaint pt states just seen for arm pain, given rx steroid. 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 Illness 43-year-old female [...] Lymph Auto: 8.6 % Low (01/21/23 16:35:00) Mccreary Auto: 4.8 % (01/21/23 16:35:00) Eos Auto: 0.1 % (01/21/23 16:35:00) Basophil Auto: 0.3 % (01/21/23 16:35:00) Neutro Absolute: 12.3 E9/L High (01/21/23 16:35:00) Lymph Absolute: 1.2 E9/L (01/21/23 16:35:00) Mccreary Absolute: 0.7 E9/L (01/21/23 16:35:00) Eos Absolute: [...] Urobilinogen: 0.2 (01/21/23 17:53 (more content not included)...[facility] HospitalComment on above:Result Comment: Electronically Signed By: GAGE HAIDER, Ellie\.br\Date and Time Signed: 01/21/23 19:11 [id number] Note PROCEDURE: XR GI UPPER AIR KUB [...] Electronically authenticated by: MATTHEW SILVER Date: 2022-01-05 11:30[facility]06-06-2022 NotePROCEDURE: XR GI UPPER AIR KUB [...] Electronically authenticated by: MATTHEW SILVER Date: 2022-01-05 11:30[facility]06-06-2022 NotePROCEDURE: XR GI UPPER AIR KUB [...] Electronically authenticated by: MATTHEW SILVER Date: 2022-01-05 11:30[facility] note* Diagnosis Infective otitis externa of left ear- Primary Herpes zoster without complication documented in this encounter [facility] note* Diagnosis Blood glucose elevated- Primary Other abnormal glucose Hyperglycemia due to diabetes mellitus (HCC) Dehydration documented in this encounter [facility] note* Diagnosis Viral illness- Primary Unspecified viral infection, in conditions classified elsewhere and of unspecified site documented in this encounter [facility] course Narrative No data available for this section [facility] Attachments The following attachments cannot be sent through Care Everywhere. * Shingles (Iraqi) * Otitis Externa (Iraqi) [facility]* Attachments The following attachments cannot be sent through Care Everywhere. * URI (Upper Respiratory Infection): Viral (Iraqi) [facility] No data available for this section [facility] Summary Purpose Family History No Family History Records FoundNo Family History Records FoundNo Family History Records FoundNo Family History Records FoundNo Family History Records Found Advance Directives No Advanced Directives Records FoundNo Advanced Directives Records FoundNo Advanced Directives Records FoundNo Advanced Directives Records FoundNo Advanced Directives Records Found Additional Source Comments INFORMATION SOURCE (unrecogn ized section and content) DATE CREATED AUTHOR 06/22/2022 Ofelia Adorno pitmihai DATE CREATED AUTHOR AUTHOR'S ORGANIZ ATION 01/28/2023 Austin Ferrer [facility] DATE CREATED AUTHOR AUTHOR'S ORGANIZ ATION 03/15/2023 [facility] DATE CREATED AUTHOR AUTHOR'S ORGANIZ ATION 05/15/2023 [facility] DATE CREATED AUTHOR AUTHOR'S ORGANIZ ATION 10/05/2024 Татьяна Braxtonsia [facility] Patient Care team informatio n (unrecognized section and content) 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 Worse since last night. Reason Comments Hyperglycemia Pt blood sugars have been running high for a week Reason Comments Generalized Body Aches Started yesterday Ordered Prescriptions (unrec ognized section and content) [...] you are taking antiviral 30 tablet 07/09/2024 Prescription Sig Dispensed Refills Start Date End Da te acetaminophen (TYLENOL) 500 MG tablet Take 1 tablet by mouth 4 times daily as needed for Pain 360 tablet 1 10/04/2024 Scheduled Active and Recently Administ ered Medications [...] mL/hr, Administer over 1 Hours, ONCE, On 08/28/24 at 1630, For 1 dose 1631 (New Bag - Prov ider: Karolina Trujillo RN)1811 (Stopped - Provider: Karolina Trujillo RN) Scheduled Medication Order 10/02/2024 10/03/2024 10/04/2024 acetaminophen (TYLENOL) tablet 1,000 mg (COMPLETED) 1,000 mg, Oral, ONCE, 1 dose, On 10/04/24 at 0745, Maximum dose of acetaminophen is 4000 mg from all sources in 24 hours. 0740 (Given - Provid er: Karolina Trujillo RN) FOR RECORDS PERTAINING TO [...] BE BASED ON THE PRIMARY CLINICAL RECORDS. [employer] provides no warranty or guarantee of the accuracy or completeness of information in this document.
--- NOTE | 2024-10-19 22:06 | ED_ITS ---
HPI HPI - General Adult General Chief complaint: Extremity Injury, Lower Stated complaint: foot injury-fall Time Seen by Provider: 10/19/24 22:04 Source: patient Mode of arrival: walk-in Limitations: no limitations History of Present Illness HPI narrative: 44-year-old female presents to the emergency department for chief complaint of pain to her left toes. She fell in the shower about 15 or 20 minutes ago. She did not sustain any other injury. It hurts more to stand on it. Related Data Home Medications ?Medication ?Instructions ?Recorded ?Confirmed aspirin 81 mg tablet,delayed 81 mg PO DAILY 05/25/23 08/09/23 release atorvastatin 80 mg tablet 80 mg PO DAILY 05/25/23 08/09/23 ticagrelor 90 mg tablet (Brilinta) 90 mg PO BID 05/25/23 08/09/23 nitroglycerin 0.4 mg sublingual 0.4 mg sublingual Q5M PRN chest 08/09/23 08/09/23 tablet pain Previous Rx's ?Medication ?Instructions ?Recorded hydroxyzine HCl 25 mg tablet 25 mg PO BID PRN anxiety #20 tabs 05/01/23 acetaminophen 300 mg-codeine 30 mg 1 tab PO Q6H PRN pain 3 days #10 10/19/24 tablet tabs Allergies Allergy/AdvReac Type Severity Reaction Status Date / Time penicillin G AdvReac Intermediate Hives Verified 10/19/24 22:00 Opioid HPI Opioid Management Most Recent Opioid Data: Last Pain Scale 10 01/20/23 14:12 01/20/23 Review of Systems ROS Narrative A ten point review of systems is negative except as noted above. PFSH PFSH Social History Smoking status: Never smoker Little interest or pleasure in doing things: not at all Feeling down, depressed, or hopeless: not at all Exam Narrative Exam Narrative: Nurses note and vital signs reviewed and patient is not hypoxic. General: The patient appears well and in no apparent distress. Patient is resting comfortably on cart. Skin: Warm, dry, no pallor noted. There is no rash noted. Head: Normocephalic, atraumatic Eye: Normal conjunctiva, no drainage Ears, Nose, Mouth, and Throat: oral mucosa is moist. Nares patent. Cardiovascular: Regular Rate and Rhythm Respiratory: Patient is in no distress, no accessory muscle use Back: non-tender GI: Soft and nontender Musculoskeletal: Her left foot is examined. Skin intact. No bruising or rash or abrasions. Neurological: A&O, normal speech Psychiatric: Cooperative Constitutional Vital Signs, click to edit/add: Last Vital Signs Temp 97.9 F 10/19/24 21:56 Pulse 94 H 10/19/24 21:56 Resp 18 10/19/24 21:56 Pulse Ox 96 10/19/24 21:56 O2 Del Method Room Air 10/19/24 21:56 Course Vital Signs Vital signs: Vital Signs Temperature 97.9 F 10/19/24 21:56 Pulse Rate 94 H 10/19/24 21:56 Respiratory Rate 18 10/19/24 21:56 Pulse Oximetry 96 10/19/24 21:56 Oxygen Delivery Method Room Air 10/19/24 21:56 Temperature 97.9 F 10/19/24 21:56 Pulse Rate 94 H 10/19/24 21:56 Respiratory Rate 18 10/19/24 21:56 Pulse Oximetry 96 10/19/24 21:56 Oxygen Delivery Method Room Air 10/19/24 21:56 Medical Decision Making MDM Narrative Medical decision making narrative: X-rays negative per radiologist. She is on Brilinta so we will avoid anti- inflammatories. Treatment diagnosis and follow-up were discussed with the patient. Differential Diagnosis Differential Diagnosis: Sprain, fracture Imaging Data Left foot x-ray: Radiologist's impression: No acute fracture or dislocation Discharge Plan Discharge Chief Complaint: Extremity Injury, Lower Clinical Impression: Sprain of foot, left Patient Disposition: Home, Self-Care Time of Disposition Decision: 23:13 Condition: Good Mode of Transportation: Private Vehicle Prescriptions / Home Meds: New acetaminophen-codeine 300-30 mg tablet 1 tab PO Q6H PRN (Reason: pain) 3 Days Qty: 10 0RF No Action hydroxyzine HCl 25 mg tablet 25 mg PO BID PRN (Reason: anxiety) Qty: 20 0RF Brilinta 90 mg tablet 90 mg PO BID atorvastatin 80 mg tablet 80 mg PO DAILY aspirin 81 mg tablet,delayed release (DR/EC) 81 mg PO DAILY nitroglycerin 0.4 mg tablet, sublingual 0.4 mg sublingual Q5M PRN (Reason: chest pain) Print Language: Danish Instructions: Foot Sprain (ED) Referrals: Gentry Wolf MD [Primary Care Provider] - 1 week
[2024-10-19] MEDS: ACETAMINOPHEN 300 MG/ 30 MG CODEINE TABLET 1 TAB PO (23:28)
== END 2024-10-19 23:37 | disposition home or self-care (01) ==
PROVIDERS: Emergency Provider Emergency Medicine; PCP Family Medicine
DX: S93.602A Unspecified sprain of left foot, initial encounter (principal); W18.49XA Other slipping, tripping and stumbling without falling, initial encounter; Y93.E1 Activity, personal bathing and showering
CPT/HCPCS: 73630; 99283

== ENCOUNTER 2024-10-22 10:54 | Emergency (ER) | payer OTHER, SELFPAY ==
[2024-10-22 10:59] VITALS: BP 160/108; TEMP 37.1; O2SAT 98; BMI 28.6
--- OUTSIDE RECORDS SUMMARY | 2024-10-22 11:05 | XMS_ITS | CCD ---
Author Organization [facility] [employer]ini[employer]ks Care Team Providers Care Transfer Table Operator Helper Name Role Phone DR GENTRY CARRILLO Consulting [...] Attending Unavailable LORENA, DR EDMOND Admitting Unavailable LROENA, DR EDMOND Consulting Unavailable LORENA, DR EDMOND [...] Admitting Unavailable Gentry Carrillo Primary Care Physician [phone] Abhishek Monterroso Consulting Ellie Nieto Attending Unavailable Ellie OBANDO Admitting Unavailable Abhishek Monterroso Consulting Abhishek Cox Consulting UnavailPako Robertson Attending Unavailable FELIPA ROGERS Attending Unavailable Gentry Carrillo MD Primary Care Provider [phone] AMY LOVE Attending Unavailable GENTRY CARRILLO Primary Care Unavailable GENTRY CARRILLO Primary Care Unavailable SANCHEZ MANCILLA Attending Unavailable GENTRY CARRILLO Primary Care Unavailable AMISHA NGUYEN Attending Unavailable Allergies Allergy Classification Reported Allergen(s) Allergy Type Date of Onset Reaction(s) Facility (1 source) Penicillin Drug Allergy 08-02-1979 [facility] Repository (6 sources) Penicillins; Translations: [penicillins] Drug allergy 05-26-2019 [facility] Medications Current Medications Medication Drug Class(es) [...] Daily, # 30 tab(s), Refills(s) 1, Pharmacy: [facility] #[id number], 165, cm, 01/21/23 16:25:00 EDT, Height/Length Dosing, [...] attention, # 100 tab(s), Refills(s) 0, Pharmacy: [facility] #[id number], 165, cm, 01/21/23 16:25:00 EDT, Height/Length Dosing, 83, kg, 01/21/23... Start Date: 01/23/23 Status: Ordered ticagrelor 90 mg oral tablet (4 sources) Start: take 1 tablet by mouth twice daily Brilinta (ticagrelor) 90 mg oral tablet 90 mg = 1 tab(s), Oral, BID, # 60 tab(s), Refills(s) 1, Pharmacy: [facility] #[id number], 165, cm, 01/21/23 16:25:00 EDT, Height/Length Dosing, [...] Coronary atherosclerosis; Translations: [Atherosclerotic heart disease of [place] coronary artery without angina pectoris] Onset: 01-23-2023 [...] current use of drug therapy; Translations: [Other residential (current) drug therapy] Onset: 01-21-2023 Episodic Other [...] 02-19-2022 Episodic Other aftercare (1 source) Other keno terminal operator (current) drug therapy; Translations: [OTH RETIREMENT CURRENT DRUG THERAPY] Onset: 02-19-2022 Episodic Other aftercare (1 source) halfway (current) use of oral hypoglycemic drugs; Translations: [RETIREMENT USE ORAL HYPOGLYCEMIC DX] Onset: 02-19-2022 Episodic Other aftercare (1 source) termite technician (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; Translations: [RETIREMENT CURRENT USE OF ASPIRIN] Onset: 12-09-2021 Episodic Other aftercare (1 source) halfway (current) use of insulin; Translations: [ACT TUTOR CURRENT USE OF INSULIN] Onset: 12-09-2021 Episodic [...] TIM+probe Ql (Resp) Not detected Not Detected [facility] Comment on above: Rapid NAAT: The specimen [...] Nucleic Acid Amplification Specimen Description .NASOPHARYNGEAL SWAB [facility] Flu A/B Ag Detectionon 10-04 Flu A Ag Detection Negative Normal [facility] Comment on above: Result Comment: for Influenza A Antigen Performed By: #### F LUABA #### [facility] [address] [place] [address] Straight Tooth Gear Generator Operator: Matthew Driscoll MD Flu B Ag Detection Negative Normal [facility] Comment on above: Result Comment: for Influenza B Antigen. Performed By: #### F LUABA #### [facility] [address] [place] [address] Straight Tooth Gear Generator Operator: Matthew Driscoll MD Rapid influenza A/B antigens on 10-04-2024 FLUAV Ag Ql (Unsp spec) Negative NEGATIVE [facility] Comment on above: for Influenza A Anti gen FLUBV Ag Ql (Unsp spec) Negative NEGATIVE [facility] Comment on above: for Influenza B Anti gen. [facility] [id number] 10-04-2024 SARS-CoV-2 (COVID-19) RNA TIM+probe Ql (Unsp spec) Not detected Normal [facility] Comment on above: Result Comment: Rapid [...] Amplification Performed By: #### C OVRB #### [facility] [address] [place] [address] Straight Tooth Gear Generator Operator: Matthew Driscoll MD CBC with Auto Differentialon 08-28-2024 Basophils (Bld) [#/Vol] 0.02 10*3/uL [facility] Basophils/100 WBC (Bld) 0 % 0 - 2 % [facility] Eosinophils (Bld) [#/Vol] 0.09 10*3/uL [facility] Eosinophils/100 WBC (Bld) 1 % 0 - 5 % [facility] Erythrocyte distribution width (RBC) [Ratio] 13.0 % 12.1 - 15.2 % [facility] Hematocrit (Bld) [Volume fraction] 41.7 % 36.0 - 46.0 % [facility] Hemoglobin (Bld) [Mass/Vol] 15.0 g/dL 12.0 - 16.0 g/dL [facility] Immature granulocytes (Bld) [#/Vol] 0.02 10*3/uL [facility] Immature granulocytes/100 WBC (Bld) 0 % 0 - 5 % [facility] Interpretation and review of laboratory results Abnormal [facility] Lymphocytes/100 WBC (Bld) 33 % 15 - 40 % [facility] Lymphocytes/100 WBC (Bld) 3.26 % [facility] MCH (RBC) [Entitic mass] 28.5 pg 26.0 - 34.0 pg [facility] MCHC (RBC) [Mass/Vol] 36.0 g/dL 31.0 - 37.0 g/dL [facility] MCV (RBC) [Entitic vol] 79.3 fL Low 80.0 - 100.0 fL [facility] Monocytes/100 WBC (Bld) 6 % 4 - 8 % [facility] Monocytes/100 WBC (Bld) 0.55 % [facility] Neutrophils/100 WBC (Bld) 60 % 47 - 75 % [facility] Platelet mean volume (Bld) [Entitic vol] 9.9 fL 6.0 - 12.0 fL [facility] Platelets (Bld) [#/Vol] 277 10*3/uL [facility] RBC (Bld) [#/Vol] 5.26 10*6/uL High 4.00 - 5.2 0 m/uL [facility] Segmented neutrophils/100 WBC (Bld) 6.04 % [facility] WBC other (Bld) [#/Vol] 10.0 [facility] CBC with Diffon 08-28-2024 Abs. Basophil 0.02 k/uL Normal 0.00-0.20 [facility] Comment on above: Performed By: #### C P, CDP #### [facility] [address] [place] [address] Straight Tooth Gear Generator Operator: Matthew Driscoll MD Abs.Imm.Granulocyte 0.02 k/uL Normal 0.00-0.30 [facility] Comment on above: Performed By: #### C P, CDP #### [facility] [address] [place] [address] Straight Tooth Gear Generator Operator: Matthew Driscoll MD Abs.Neutrophil (Seg) 6.04 k/uL Normal 2.5-7.0 [facility] Comment on above: Performed By: #### C P, CDP #### [facility] [address] [place] [address] Straight Tooth Gear Generator Operator: Matthew Driscoll MD Basophils/100 WBC (Bld) 0 % Normal 0-2 [facility] Comment on above: Performed By: #### C P, CDP #### [facility] [address] [place] [id number] Straight Tooth Gear Generator Operator: Matthew Driscoll MD Eosinophils (Bld) [#/Vol] 0.09 10*3/uL Normal 0.00-0.40 [facility] Comment on above: Performed By: #### C P, CDP #### [facility] [address] [place] [address] Straight Tooth Gear Generator Operator: Matthew Driscoll MD Eosinophils/100 WBC (Bld) 1 % Normal 0-5 [facility] Comment on above: Performed By: #### C P, CDP #### [facility] [address] [place] [id number] Straight Tooth Gear Generator Operator: Matthew Driscoll MD Erythrocyte distribution width (RBC) [Ratio] 13.0 % Normal 12.1-15.2 [facility] Comment on above: Performed By: #### C P, CDP #### [facility] [address] [place] [phone] Straight Tooth Gear Generator Operator: Matthew Driscoll MD Hematocrit (Bld) [Volume fraction] 41.7 % Normal 36.0-46.0 [facility] Comment on above: Performed By: #### C P, CDP #### [facility] [address] [place] [phone] Straight Tooth Gear Generator Operator: Matthew Driscoll MD Hemoglobin (Bld) [Mass/Vol] 15.0 g/dL Normal 12.0-16.0 [facility] Comment on above: Performed By: #### C P, CDP #### [facility] [address] [place] [phone] Straight Tooth Gear Generator Operator: Matthew Driscoll MD Immature granulocytes/100 WBC (Bld) 0 % Normal 0-5 [facility] Comment on above: Performed By: #### C P, CDP #### [facility] [address] [place] [address] Straight Tooth Gear Generator Operator: Matthew Driscoll MD Lymphocytes (Bld) [#/Vol] 3.26 10*3/uL Normal 1.00-4.80 [facility] Comment on above: Performed By: #### C P, CDP #### [facility] [address] [place] [address] Straight Tooth Gear Generator Operator: Matthew Driscoll MD Lymphocytes/100 WBC (Bld) 33 % Normal 15-40 [facility] Comment on above: Performed By: #### C P, CDP #### [facility] [address] [place] [address] Straight Tooth Gear Generator Operator: Matthew Driscoll MD MCH (RBC) [Entitic mass] 28.5 pg Normal 26.0-34.0 [facility] Comment on above: Performed By: #### C P, CDP #### [facility] [address] [place] [address] Straight Tooth Gear Generator Operator: Matthew Driscoll MD MCHC (RBC) [Mass/Vol] 36.0 g/dL Normal 31.0-37.0 [facility] Comment on above: Performed By: #### C P, CDP #### [facility] [address] [place] [address] Straight Tooth Gear Generator Operator: Matthew Driscoll MD MCV (RBC) [Entitic vol] 79.3 fL Low 80.0-100.0 [facility] Comment on above: Performed By: #### C P, CDP #### [facility] [address] [place] [address] Straight Tooth Gear Generator Operator: Matthew Driscoll MD Monocytes (Bld) [#/Vol] 0.55 10*3/uL Normal 0.00-1.00 [facility] Comment on above: Performed By: #### C P, CDP #### [facility] [address] [place] [address] Straight Tooth Gear Generator Operator: Matthew Driscoll MD Monocytes/100 WBC (Bld) 6 % Normal 4-8 [facility] Comment on above: Performed By: #### C P, CDP #### [facility] [address] [place] [address] Straight Tooth Gear Generator Operator: Matthew Driscoll MD Neutrophil (Seg) 60 % Normal 47-75 [facility] Comment on above: Performed By: #### C P, CDP #### [facility] [address] [place], [place] [phone] (921) Straight Tooth Gear Generator Operator: Matthew Driscoll MD Platelet mean volume (Bld) [Entitic vol] 9.9 fL Normal 6.0-12.[address] [facility] Comment on above: Performed By: #### C P, CDP #### [facility] [address] [place], [place] [phone] (736) Straight Tooth Gear Generator Operator: Matthew Driscoll MD Platelets (Bld) [#/Vol] 277 10*3/uL Normal 140-450 [facility] Comment on above: Performed By: #### C P, CDP #### [facility] [address] [place] [address] Straight Tooth Gear Generator Operator: Matthew Driscoll MD RBC (Bld) [#/Vol] 5.26 10*6/uL High 4.00-5.20 [facility] Comment on above: Performed By: #### C P, CDP #### [facility] [address] [place] [address] (425) Straight Tooth Gear Generator Operator: Matthew Driscoll MD WBC (Bld) [#/Vol] 10.0 10*3/uL Normal 3.5-11.0 [facility] Comment on above: Performed By: #### C P, CDP #### [facility] [address] [place], [place] [id number] Straight Tooth Gear Generator Operator: Matthew Driscoll MD Comp Metabolic Profon 2024 Albumin [Mass/Vol] 3.8 g/dL Normal 3.5-5.2 [facility] Comment on above: Performed By: #### C P, CDP #### [facility] [address] [place] [address] Straight Tooth Gear Generator Operator: Matthew Driscoll MD ALT [Catalytic activity/Vol] 17 U/L Normal 5-33 [facility] Comment on above: Performed By: #### C P, CDP #### [facility] [address] [place], [place] [id number] Straight Tooth Gear Generator Operator: Matthew Driscoll MD Anion gap [Moles/Vol] 16 mmol/L Normal 9-17 [facility] Comment on above: Performed By: #### C P, CDP #### [facility] [address] [place] [phone] Straight Tooth Gear Generator Operator: Matthew Driscoll MD AST [Catalytic activity/Vol] 12 U/L Normal <32 [facility] Comment on above: Performed By: #### C P, CDP #### [facility] [address] [place] [phone] Straight Tooth Gear Generator Operator: Matthew Driscoll MD Bilirubin [Mass/Vol] 0.6 mg/dL Normal 0.3-1.2 [facility] Comment on above: Performed By: #### C P, CDP #### [facility] [address] [place], [place] [id number] Straight Tooth Gear Generator Operator: Matthew Driscoll MD Calcium [Mass/Vol] 9.8 mg/dL Normal 8.6-10.4 [facility] Comment on above: Performed By: #### C P, CDP #### [facility] [address] [place], [place] [id number] Straight Tooth Gear Generator Operator: Matthew Driscoll MD Chloride [Moles/Vol] 87 mmol/L Low 98-107 [facility] Comment on above: Performed By: #### C P, CDP #### [facility] [address] [place], [place] [phone] Straight Tooth Gear Generator Operator: Matthew Driscoll MD CO2 [Moles/Vol] 22 mmol/L Normal 20-31 [facility] Comment on above: Performed By: #### C P, CDP #### [facility] [address] [place], [place] [phone] Straight Tooth Gear Generator Operator: Matthew Driscoll MD Creatinine [Mass/Vol] 0.6 mg/dL Normal 0.5-0.9 [facility] Comment on above: Performed By: #### C P, CDP #### [facility] [address] [place], [place] [phone] Straight Tooth Gear Generator Operator: Matthew Driscoll MD Glucose [Mass/Vol] 579 mg/dL Critically high 70-99 [facility] Comment on above: Performed By: #### C P, CDP #### [facility] [address] [place] [address] Straight Tooth Gear Generator Operator: Matthew Driscoll MD Potassium [Moles/Vol] 4.4 mmol/L Normal 3.7-5.3 [facility] Comment on above: Performed By: #### C P, CDP #### [facility] [address] [place], [place] [phone] Straight Tooth Gear Generator Operator: Matthew Driscoll MD Protein [Mass/Vol] 7.5 g/dL Normal 6.4-8.3 [facility] Comment on above: Performed By: #### C P, CDP #### [facility] [address] [place], [place] [phone] Straight Tooth Gear Generator Operator: Matthew Driscoll MD Sodium [Moles/Vol] 125 mmol/L Low 135-144 [facility] Comment on above: Performed By: #### C P, CDP #### [facility] [address] [place] [address] Straight Tooth Gear Generator Operator: Matthew Driscoll MD Urea nitrogen [Mass/Vol] 21 mg/dL High 6-20 [facility] Comment on above: Performed By: #### C P, CDP #### [facility] [address] [place] [address] Straight Tooth Gear Generator Operator: Matthew Driscoll MD Alkaline Phos 173 U/L High 35-104 [facility] Comment on above: Performed By: #### C P, CDP #### [facility] [address] [place] [address] Straight Tooth Gear Generator Operator: Matthew Driscoll MD BUN/CRE Ratio 35 High 9-20 [facility] Comment on above: Performed By: #### C P, CDP #### [facility] [address] [place] [address] Straight Tooth Gear Generator Operator: Matthew Driscoll MD GFR/1.73 sq M.predicted among non-blacks MDRD (S/P/Bld) [Vol rate/Area] mL/min/{1.73_m2} Normal >60 [facility] Comment on above: Result Comment: These results [...] Performed By: #### C P, CDP #### [facility] [address] [place] [address] Straight Tooth Gear Generator Operator: Matthew Driscoll MD Comprehensive Metabolic Pane [facility] 08-28-2024 ALP [Catalytic activity/Vol] 173 U/L High 35 - 104 U/L [facility] Est, Glom Filt Rate - PINF [facility] Comment on above: These results are not [...] Interpretation and review of laboratory results Abnormal [facility] Urea nitrogen/Creatinine [Mass ratio] 35 mg/mg High 9 - 20 [facility] Glucose, Whole Bloodon 08-28 Glucose [Mass/Vol] 316 mg/dL High 65 - 99 mg/dL [facility] Interpretation and review of laboratory results Abnormal [facility] Glucose [Mass/Vol] 565 mg/dL Critically high 65 - 99 mg/d L [facility] Interpretation and review of laboratory results Abnormal [facility] Glucose,Whole Bloodon 2024 Glucose [Mass/Vol] 316 mg/dL High 65-99 [facility] Glucose [Mass/Vol] 565 mg/dL Critically high 65-99 [facility] POCT glucoseon 08-28-2024 Glucose [Mass/Vol] 316 mg/dL [facility] Interpretation and review of laboratory results Normal [facility] QC OK? yes [facility] POCT glucoseOrdered By: Shazia Trujillo on 08-28-2024 Glucose [Mass/Vol] 565 mg/dL [facility] Interpretation and review of laboratory results Normal [facility] QC OK? yes [facility] Venous Bld Gas,POCon 025 FIO2 21.0 Normal [facility] HCO3 (Bld) [Moles/Vol] 23.5 mmol/L Normal 22.0-29.0 [facility] Oxygen saturation in Blood 95.0 % High 60.0-85.0 [facility] pCO2, Venous 33.2 mm Hg Low 41.0-51.[address] [facility] pH,Venous 7.457 High 7.320-7.430 [facility] pO2, Venous 70.8 mm Hg High 30.0-50.0 [facility] Positive Base Excess (calc) 0.4 mmol/L Normal 0.0-3.0 [facility] Venous Blood Gas, POCon 08-03 FIO2 21.0 [facility] HCO3 (Bld) [Moles/Vol] 23.5 mmol/L 22.0 - 29.0 mmol/L [facility] Interpretation and review of laboratory results Abnormal [facility] Oxygen saturation in Blood 95.0 % High 60.0 - 85.0 % [facility] pCO2, Adria 33.2 Low [facility] pH, Adria 7.457 High 7.320 - 7.430 [facility] PO2, Adria 70.8 High [facility] Positive Base Excess, Adria 0.4 mmol/L 0.0 - 3.0 mmol/L [facility] Office Visiton 02-05-2023 Follow-up visit [id number] Escobar Ortega 1980 F Date Provider Department Center 02/05/2023 3848-FELIPA ROGERS ZE Adorno Family History Problem Relation Age of Onset Diabetes Father Coronary artery disease Father Kidney disease Father Family Status - Relation Status Age at Father Level of Service:52380 [place] OFFICE/OUTPATIENT [facility] 30-44 MINUTES Normal [facility] Cardiovascular Reporton 01-01 Cardiovascular Report [id number] 30#1.00CD:127 [facility] Consent for PICC lineon 01-01 Consent for PICC line [id number] 13#1.00CD:[address] [facility] Discharge Instructionson Discharge Instructions [id number] #1.00CD:127 [facility] Pre-Certification Formon Pre-Certification Form [id number] 2#1.00CD:127 [facility] BMPon 01-23-2023 Anion gap [Moles/Vol] 12 mmol/L Normal 01-15 [facility] Comment on above: Performed By: #### 2 021214, 0148208, 91986094, [id number], 1858801, 9554579 #### [facility] [address] [place] [address] Calcium [Mass/Vol] 8.2 mg/dL Low 8.9-11.1 [facility] Comment on above: Performed By: #### 2 037339, 8741344, 69400483, 865585202, 3357227, 2065092 #### [facility] [address] [place] [address] Chloride [Moles/Vol] 108 mmol/L Normal 101-111 [facility] Comment on above: Performed By: #### 2 554217, 5862920, 75933428, 861382987, 4272398, 1658971 #### [facility] [address] [place] [address] CO2 [Moles/Vol] 19 mmol/L Low 21-31 [facility] Comment on above: Performed By: #### 2 807789, 4987476, 80086090, 870459730, 9936462, 4116393 #### [facility] [address] [place] [address] Creatinine [Mass/Vol] 0.5 mg/dL Normal 0.5-1.3 [facility] Comment on above: Performed By: #### 2 059472, 4982023, 55574645, 383573521, 5859147, 5367680 #### [facility] [address] [place] [address] Glucose [Mass/Vol] 183 mg/dL Normal 55-199 [facility] Comment on above: Result Comment: If t his glucose result represents a fasting glucose, interpretation should refer to the following reference range: 55-99 mg/dL Performed By: #### 2 117224, 9363165, 42034644, 951636694, 7137119, 5550824 #### [facility] [address] [place] [address] Potassium [Moles/Vol] 3.8 mmol/L Normal 3.5-5.3 [facility] Comment on above: Performed By: #### 2 009644, 1346633, 23942546, 164801091, 8903396, 1733618 #### [facility] [address] [place] [address] Sodium [Moles/Vol] 135 mmol/L Normal 135-145 [facility] Comment on above: Performed By: #### 2 684932, 2241633, 03033783, 838227719, 0814317, 4269856 #### [facility] [address] [place] [address] Urea nitrogen [Mass/Vol] 11 mg/dL Normal 5-21 [facility] Comment on above: Performed By: #### 2 882780, 5951689, 70492275, 094976913, 5395998, 7458359 #### [facility] [address] [place] [address] Urea nitrogen/Creatinine [Mass ratio] 22 No Units High 10-20 [facility] Comment on above: Performed By: #### 2 578664, 9967191, 11739714, 229925915, 9763695, 6952979 #### [facility] [address] [place] [address] CBC w/Indiceson 01-23-2023 Erythrocyte distribution width (RBC) [Ratio] 14.2 % Normal 10.9-14.2 [facility] Comment on above: Performed By: #### 2 339895, 2996556, 37909271, 875857501, 0309227, 2931754 #### [facility] [address] [place] [address] Hematocrit (Bld) [Volume fraction] 38.3 % Normal 34.0-46.0 [facility] Comment on above: Performed By: #### 2 572016, 3466409, 39447726, 297205307, 4880683, 9099113 #### [facility] [address] [place] [address] Hemoglobin (Bld) [Mass/Vol] 13.3 g/dL Normal 12.0-16.0 [facility] Comment on above: Performed By: #### 2 515202, 2721982, 53900091, 090217577, 6030453, 7614195 #### [facility] [address] [place] [address] MCH (RBC) [Entitic mass] 28.9 pg Normal 27.0-34.0 [facility] Comment on above: Performed By: #### 2 312787, 7509953, 08281441, 691343246, 3048075, 5491707 #### [facility] [address] [place], [place] [address] MCHC (RBC) [Mass/Vol] 34.8 g/dL Normal 31.4-36.0 [facility] Comment on above: Performed By: #### 2 964837, 3451625, 93278524, 327370945, 6278435, 0133459 #### [facility] [address] [place] [address] MCV (RBC) [Entitic vol] 83.1 fL Normal 80.0-100.0 [facility] Comment on above: Performed By: #### 2 752805, 8637430, 27996314, 463730492, 6727935, 4897856 #### [facility] [address] [place] [address] Platelet mean volume (Bld) [Entitic vol] 8.6 fL Normal 6.4-10.8 [facility] Comment on above: Performed By: #### 2 089500, 0599406, 92653393, 698940066, 6551852, 4997180 #### [facility] [address] [place] [address] Platelets (Bld) [#/Vol] 237.0 E9/L Normal 150.0-500.0 [facility] Comment on above: Performed By: #### 2 249395, 7392578, 07563656, 049120770, 2471870, 3253329 #### [facility] [address] [place] [address] RBC (Bld) [#/Vol] 4.6 E12/L Normal 4.3-5.9 [facility] Comment on above: Performed By: #### 2 438657, 9822997, 52331607, 672016190, 6602116, 4712409 #### [facility] [address] [place] [address] WBC corrected for nucl RBC Auto (Bld) [#/Vol] 9.5 E9/L Normal 4.0-11.0 [facility] Comment on above: Performed By: #### 2 640617, 1722858, 62637147, 522802690, 2457710, 2468686 #### [facility] [address] [place] [address] CHEMISTRYOrdered By: Lab ROP User on 01-23-2023 Glucose [Mass/Vol] 255 mg/dL High 55 - 99 mg/dL FTM C POC Subsection Comment on above: Result Comment: Marino paulson RN/ POC Device SN [id number] Invalid Interpretation Code [facility] POC Subsection POC User ID [id number] Invalid Interpretation Code FT POC Subsection POC Username LESLY PARR Invalid Interpretation Code FT POC Subsection Glucose [Mass/Vol] 192 mg/dL High 55 - 99 mg/dL FTM C POC Subsection Comment on above: Result Comment: Yari jennifer Meter POC Device SN [id number] Invalid Interpretation Code [facility] POC Subsection POC User ID [id number] Invalid Interpretation Code FT POC Subsection POC [...] 118 mL/min/1.73 m2 Normal >=59mL/min/1. 73 m2 [facility] Chem S Glucose [Mass/Vol] 183 mg/dL Normal 55 - 199 mg/dL FT Remisol Magnesium [Mass/Vol] 1.5 mg/dL Normal 1.3 - 2 .4 mg/dL FT Remisol Potassium [Moles/Vol] 3.8 mmol/L Normal 3.5 - 5.3 mmol/L [facility] Remisol Sodium [Moles/Vol] 135 mmol/L Normal 135 - 145 mmol/L [facility] Remisol Troponin I.cardiac [Mass/Vol] 1304.50 pg/mL Invalid Interpretation Code 10.10 - 27.10 pg/mL [facility] Comment on above: Result Comment: Crit ical Result verified by previous result\ Critical Result I_hsTnI:1304.5 Called to MICHELE HERRMANN at 3S by HARDEEP HANSEN and read back for confirmation at 01/23/2023 07:42:43 Urea nitrogen [Mass/Vol] 11 mg/dL Normal 5 - 21 mg/dL [facility] Remisol Urea nitrogen/Creatinine [Mass ratio] 22 mg/mg High 10 - 20 [facility] Remisol Capillary Glucose POCon 01-01 Glucose [Mass/Vol] 255 mg/dL High 55-99 [facility] Comment on above: Result Comment: Marino paulson RN/ Performed By: #### 2 299483, 2571114, 72671622, 825753710, 3475146, 6457199 #### [facility] [address] [place] [address] Glucose [Mass/Vol] 192 mg/dL High 55-99 [facility] Comment on above: Result Comment: Yari jennifer Meter Performed By: #### 2 [id number] ####[facility] [address] [place] [address] Consultation Noteon 01-24-20 23 Consultation Note Chief [...] deep vein thrombosis (DVT) prophylaxis (Z79.899: Other keno terminal operator (current) drug therapy) Orders: ticagrelor, 180 mg [...] tab(s), Or (more content not included)... Normal [facility] Comment on above: Result Comment: Elec tronically Signed By: Kriss HAIDER, Abhishek Hagan\.br\Date and Time Signed: 01/22/23 22:12 EDT Discharge Note-Nursingon Discharge Note-Nursing Patient prescribed Brillinta for discharge. Her preferred pharmacy is [facility] which does not have Brillinta in stock until Wednesday. This RN asked patient to switch pharmacy for this medication so she could pick up driver today. Patient refuses to switch pharmacies. She states her sister will not take her to any other pharmacy to pick this up. Per Dr. Singh, ok to pull 4 Brillinta to send home with patient to have enough until she can pick up driver the medication from her pharmacy. Normal [facility] HEMATOLOGYOrdered By: Cristin Ibarra on 01-23-2023 Erythrocyte distribution width (RBC) [Ratio] 14.2 % Normal 10.9 - 14.2 % [facility] HemeAutoSS Hematocrit (Bld) [Volume fraction] 38.3 % Normal 34.0 - 46.0 % [facility] HemeAutoSS Hemoglobin (Bld) [Mass/Vol] 13.3 g/dL Normal [...] Inpatient Clinical Summaryon 01-23-2023 Inpatient Clinical Summary [place] [id number] Clinical Summary Person Information: Name: ESCOBAR ORTEGA Age: 43 Years : 1980 Sex: Female PCP: Gentry Carrillo MD Marital Status: Phone: [phone] Race: White Ethnicity: Non- or Language: Emirati Visit Id: Visit Reason: Chest pain; CHEST PAIN Speciality: Acuity: Enc Type: Observation Med Service: Medical Arrival: 01/21/2023 16:19:22 Discharge: Dispo Type: Admitted as IP to this Hosp Address: [address] [place] [address] [phone] Provider Notes: Diagnosis: 1:NSTEMI (non-ST elevation myocardial [...] up: With: Address: When: [place] [address] Business (1) Within 2 weeks Comments: Call for followup appointment With: Address: When: Gentry Carrillo [address] [facility], [place] [address] Business (1) 01/27/2023 9:30 AM Patient Education Information: CV - Cardiovascular PCI Discharge Instructions (CUSTOM) Normal [facility] Inpatient Patient Summaryon 01-23-2023 Inpatient Patient Summary ESCOBAR ORTEGA :1980 Visit Date:01/21/2023 Inpatient Discharge Instructions Your Care Team Admitting Physician - GAGE HAIDER, Ellie Consulting Physician - Kriss AHIDER, Abhishek Holcomb MD, Vladimir Sparks Reason for [...] When: 01/27/2023 09:30 AM EDT Where: [address] [place] [address]- Business (1) Follow Up with Abhishek Monterroso When: Within 2 weeks Comments: Call for followup appointment Where: [address] [place] [address]- Business (1) Medications What How Much When Why Instructions Next Dose New aspirin (aspirin 81 mg Oral EC Tab) 1 Tablets By Mouth Every day Refills: 1 Pickup at [facility] #79314 01/24 New atorvastatin (Lipitor 80 mg Tab) 1 Tablets By Mouth Every day Refills: 1 Pickup at [facility] #[id number] 01/24 New metoprolol (Metoprolol tartrate 25 mg Tab) 1 Tablets By Mouth 2 times a day Refills: 1 Pickup at [facility] #18702 01/23 9:00pm New nitroglycerin (nitroglycerin 0.4 mg sublingual Tab) 1 Tablets Sublingual Every 5 minutes as needed for Chest pain not to exceed 3 doses/ 15 min--if pain persists, seek medical attention Pickup at [facility] #[id number] New ticagrelor (Brilinta (ticagrelor) 90 mg oral tablet) 1 Tablets By Mouth 2 times a day Chest pain Elevated troponin NSTEMI (non-ST elevation myocardial infarction) Hypertensive urgency Right shoulder pain Refills: 1 Pickup at [facility] #42185 01/23 9:00pm Changed insulin glargine (Lantus insulin) [...] day 01/23 9:00pm Pharmacy Information [facility] #[id number]: [address] [place], [place] [id number] [phone] What How Much When Comments Stop Taking naproxen (naproxen sodium 550 mg Tab) 1 Tablets By Mouth 2 times a day Test Results CBC BMP WBC: 9.5 E9/L (01/23/23 06:23:00) Glucose Lvl: 183 mg/dL (01/23/23 06:23:00) RBC: 4.6 E12/L (01/23/23 06:23:00) BUN: 11 mg/dL (01/23/23 06:23:00) HGB: 13.3 gm/dL (01/23/23 06:23:00) Creatinine: 0.5 mg/ (more content not included)... Normal [facility] Inpatient Patient Summary [place] [id number] Patient Discharge Instructions PERSON INFORMATION Name: ESCOBAR [...] results: None Follow up: With: Address: When: Abhihsek Monterroso [address] [place], [place] [id number] Business (1) Within 2 weeks Comments: Call for followup appointment With: Address: When: Gentry Reederjessica [address] [place] [address], [address] [place] [phone] Business (1) 01/27/2023 9:30 AM In the [...] Comment: MEDICATIO (more content not included)... Normal [facility] Interdisciplinary Note - Lemuel e Manageron 01-23-2023 Interdisciplinary Note - Director Broadcast Pt is awake and alert in bed, [...] boyfriend and her sister will transport at [place]. . PCP verified and insurance information reviewed and DME discussed. Contact information provided and white board updated. [facility] Comment on above: Result Comment: Elec tronically Signed By: Todd CASEY, Jeanie\.brenna\Date and Time Signed: 01/23/23 12:44 EDT Interdisciplinary Note - Navarro singon 01-23-2023 Interdisciplinary Note - Nursing Patient prescribed Brillinta for discharge. Her preferred pharmacy, [facility], will not have any of this medication until Wednesday. Patient refuses to switch pharmacies at this time to pick up driver enough to last her through the weekend. She states her sister will not take her to any other pharmacy. Per Dr. Singh, ok to pull 4 doses of Brillinta 90mg from RX station to send home with patient until she can pick up driver medication on Wednesday. Education provided to patient on importance of taking Brillinta exactly how it is prescribed. Informed patient that if she cannot get the rest of her Brillinta on Wednesday for any reason to contact the counter helper or hospital supervisor opening and picking per Dr. Singh. [facility] Magnesiumon 01-23-2023 Magnesium [Mass/Vol] 1.5 mg/dL Normal 1.3-2.4 [facility] Comment on above: Performed By: #### 2 197114, 7292180, 32143954, 161123124, 7271170, 4335792 #### [facility] [address] [place] [address] Monitor Recordon 01-23-2023 Monitor Record [id number] 0#1.00CD:[address] [facility] Monitor Record [id number] 2#1.00CD:[address] [facility] Monitor Record [id number] 5#1.00CD:[address] [facility] Monitor Record [id number] 7#1.00CD:[address] [facility] Operative Reporton 3 Operative Report Indication [...] patient will additionally be counseled by the Engineering Scientist team and in follow-up. Complications None Technique Following full and informed consent the patient was brought to the Engineering Scientist where sterile prep and drape were administered in usual fashion. Anesthesia was obtained in the right wrist with lidocaine after administration of conscious sedation. A 5/6 slender Terumo sheath was placed in the right radial artery without complication. Nitroglycerin and nicardipine were given via the sheath and heparin was given intravenously. A 5 Yi JACKE catheter was advanced and selectively engaged in the left main coronary artery and right coronary artery each, where selective injections were performed. A pigtail catheter was placed in the left ventricle where hemodynamic measurements the left ventricle were made and a bolus was given for left ventriculography. A pullback gradient was obtained. A 6 Yi jl3.5 catheter was advanced and selectively engaged [...] end of the procedure without complication. Normal [facility] Comment on above: Result Comment: Elec [...] She is medically stable for discharge and counter helper cleared her. We will give for Brilinta from here in order to get her through the weekend and prevent in-stent rethrombosis and potential complication. Nurse will give for medications which will cover patient until Wednesday morning and if any issue patient is to call supervisor opening and picking or counter helper to get it filled somewhere else. Normal [facility] Comment on above: Result Comment: Elec [...] Lipitor, lisinopril, Lopressor. Treated with Lovenox. [facility] Moderate 35 Minutes 77378 2. Coronary artery disease (I25.10: Atherosclerotic heart disease of ely shoshone coronary artery without angina pectoris) As seen on cardiac catheterization. Patient has coronary artery disease with mid left circumflex artery occlusion requiring 1 drug-eluting stent placement on 01/22/2023. Continue on aspirin, Brilinta, Lipitor, lisinopril and Lopressor. Ordered: [facility] Hospital Care/Day Moderate 35 Minutes 38462 3. Chest pain (R07.9: Chest pain, unspecified) Secondary to above. Resolved. Ordered: [facility] Hospital Care/Day Moderate 35 Minutes 48934 4. Elevated troponin (R77.8: Other specified abnormalities of plasma proteins) Secondary to above. Resolved. Ordered: [facility] Hospital Care/Day Moderate 35 Minutes 21013 5. Hypertensive urgency (I16.0: Hypertensive urgency) Resolved. Continue on lisinopril and metoprolol. Ordered: [facility]bsq Hospital Care/Day Moderate 35 Minutes 33695 6. Right shoulder pain (M25.511: Pain in right shoulder) Secondary to above #1. With atypical presentation. Ordered: [facility] Hospital Care/Day Moderate 35 Minutes 94743 7. Leukocytosis (D72.829: Elevated white blood cell [...] deep vein thrombosis (DVT) prophylaxis (Z79.899: Other keno terminal operator (current) drug therapy) SCDs. Disposition: Home either today or in a.m. pending cardiology final recommendations. I discussed the diagnosis and plan of care with the patient at the bedside. Moderate level of MDM based on addressing above issues. This documentation was transcribed using voice recognition software. Several attempts were made to ensure accuracy. However inadvertent computerized fingernail sculpturer errors may be present. Ellie Obando. Hospitalist. [...] -- 0 (more content not included)... Normal [facility] Comment on above: Result Comment: Elec tronically Signed By: GAGE HAIDER, Ellie\.br\Date and Time Signed: 01/23/23 09:13 EDT Troponinon 01-23-2023 Troponin I.cardiac [Mass/Vol] 1304.50 pg/mL Abnormal 10.10-27.10 [facility] Comment on above: Result Comment: Crit ical Result verified by previous result\ Critical Result I_hsTnI:1304.5 Called to MICHELE HERRMANN at 3S by HARDEEP HASNEN and read back for confirmation at 01/23/2023 07:42:43 The 95% CI (Confidence Interval) PPV (Positive Predictive Value) for myocardial infarction in females is 38 pg/mL, in males 51 pg/mL. The results should be used in conjunction with clinical conditions of myocardial infarction. (Access High Sensitivity Troponin I Instructions For Use, [place], March 2018) Performed By: #### 2 244735, 1486471, 00908238, 740418657, 1084381, 7209425 #### [facility] [address] [place] [address] eGFRon 01-23-2023 GFR/1.73 sq M.predicted among non-blacks MDRD (S/P/Bld) [Vol rate/Area] 118 mL/min/1.73 m2 Normal >=59 [facility] Comment on above: Order Comment: Order added by Discern Expert. Result Comment: Bicycle Mechanic reji kidney disease could be indicated at eGFR's of less than 60 mL/min/1.73m2. Kidney failure is indicated at less than 15 mL/min/1.73m2. Performed By: #### 2 987520, 4261187, 86993806, 490645258, 8407083, 3822585 #### [facility] [address] [place] [address] Auto Diffon 01-22-2023 Basophils/100 WBC (Bld) 0.4 % Normal 0.0-2.0 [facility] Comment on above: Order Comment: Order Added by Discern Expert. Performed By: #### 2 678462, 8704900, 77707961, 300538041, 6101202, 5210375 #### [facility] [address] [place] [address] Basophils/Leukocytes Auto (Bld) [Pure # fraction] 0.0 E9/L Normal 0.0-0.2 [facility] Comment on above: Order Comment: Order Added by Discern Expert. Performed By: #### 2 174915, 5289581, 86359004, 435735326, 9077757, 3294448 #### [facility] [address] [place] [address] Eosinophils/100 WBC (Bld) 0.2 % Normal 0.0-8.0 [facility] Comment on above: Order Comment: Order Added by Discern Expert. Performed By: #### 2 595695, 8340244, 85864959, 344602543, 0036290, 9937669 #### [facility] [address] [place] [address] Eosinophils/Leukocyte s Auto (Bld) [Pure # fraction] 0.0 E9/L Normal 0.0-0.5 [facility] Comment on above: Order Comment: Order Added by Discern Expert. Performed By: #### 2 096291, 7130400, 42312410, 042992680, 1390317, 0418496 #### [facility] [address] [place] [address] Lymphocytes/100 WBC (Bld) 24.9 % Normal 14.0-50.0 [facility] Comment on above: Order Comment: Order Added by Lupe Expert. Performed By: #### 2 689572, 8145335, 32777532, 407656274, 9107287, 1472537 #### [facility] [address] [place] [address] Lymphocytes/Leukocyte s Auto (Bld) [Pure # fraction] 2.6 E9/L Normal 1.0-4.0 [facility] Comment on above: Order Comment: Order Added by Lupe Expert. Performed By: #### 2 896430, 0520172, 01603023, 599035026, 0084263, 9849563 #### [facility] [address] [place] [address] Monocytes/100 WBC (Bld) 4.6 % Normal 4.0-14.0 [facility] Comment on above: Order Comment: Order Added by Lupe Expert. Performed By: #### 2 042062, 1416215, 24568749, 749205603, 5812889, 4464592 #### [facility] [address] [place] [address] Monocytes/Leukocytes Auto (Bld) [Pure # fraction] 0.5 E9/L Normal 0.2-1.0 [facility] Comment on above: Order Comment: Order Added by Lupe Expert. Performed By: #### 2 980185, 6382337, 11103584, 604466186, 1009496, 4692303 #### [facility] [address] [place] [address] Neutrophils/100 WBC (Bld) 69.9 % Normal 36.0-75.0 [facility] Comment on above: Order Comment: Order Added by Discern Expert. Performed By: #### 2 403336, 9058435, 60720507, 166988740, 5612781, 4580317 #### [facility] [address] [place] [address] Neutrophils/Leukocyte s Auto (Bld) [Pure # fraction] 7.4 E9/L Normal 2.0-7.5 [facility] Comment on above: Order Comment: Order Added by Discern Expert. Performed By: #### 2 605421, 2440492, 25599195, 653857247, 0565936, 9277800 #### [facility] [address] [place] [address] BMPon 01-22-2023 Anion gap [Moles/Vol] 5 mmol/L Low 6-16 [facility] Comment on above: Performed By: #### 2 037357, 5329268, 79202393, 390259835, 3879011, 4921591 #### [facility] [address] [place] [address] Calcium [Mass/Vol] 8.0 mg/dL Low 8.9-11.1 [facility] Comment on above: Performed By: #### 2 888804, 7988501, 49480466, 339023732, 1407648, 5315508 #### [facility] [address] [place] [address] Chloride [Moles/Vol] 107 mmol/L Normal 101-111 [facility] Comment on above: Performed By: #### 2 058518, 1864674, 30373989, 277453846, 3251474, 7899276 #### [facility] [address] [place] [address] CO2 [Moles/Vol] 23 mmol/L Normal 21-31 [facility] Comment on above: Performed By: #### 2 338129, 1826978, 31592212, 496099629, 8094874, 9532441 #### [facility] [address] [place] [address] Creatinine [Mass/Vol] 0.6 mg/dL Normal 0.5-1.3 [facility] Comment on above: Performed By: #### 2 219446, 5067146, 37383913, 194033987, 7519241, 9988738 #### [facility] [address] [place] [address] Glucose [Mass/Vol] 293 mg/dL High 55-199 [facility] Comment on above: Result Comment: If t his glucose result represents a fasting glucose, interpretation should refer to the following reference range: 55-99 mg/dL Performed By: #### 2 287996, 4774084, 28054897, 710406116, 7306008, 2008973 #### [facility] [address] [place] [address] Potassium [Moles/Vol] 4.0 mmol/L Normal 3.5-5.3 [facility] Comment on above: Performed By: #### 2 092373, 4834463, 17662027, 571729798, 1055727, 0492513 #### [facility] [address] [place] [address] Sodium [Moles/Vol] 131 mmol/L Low 135-145 [facility] Comment on above: Performed By: #### 2 853187, 1482927, 08214456, 812490358, 1056994, 4206747 #### [facility] [address] [place] [address] Urea nitrogen [Mass/Vol] 20 mg/dL Normal 5-21 [facility] Comment on above: Performed By: #### 2 297629, 7056486, 00491379, 482866501, 8190363, 6452244 #### [facility] [address] [place] [address] Urea nitrogen/Creatinine [Mass ratio] 33 No Units High 10-20 [facility] Comment on above: Performed By: #### 2 378289, 2783074, 79888770, 780284867, 3486050, 5784953 #### [facility] [address] [place] [address] CBC w/ Auto Diffon 3 Erythrocyte distribution width (RBC) [Ratio] 14.0 % Normal 10.9-14.2 [facility] Comment on above: Performed By: #### 2 757876, 2487808, 95467180, 413091765, 1856479, 8994108 #### [facility] [address] [place] [address] Hematocrit (Bld) [Volume fraction] 35.5 % Normal 34.0-46.0 [facility] Comment on above: Performed By: #### 2 403537, 1028100, 09013162, 952023916, 8135461, 8298665 #### [facility] [address] [place] [address] Hemoglobin (Bld) [Mass/Vol] 12.5 g/dL Normal 12.0-16.0 [facility] Comment on above: Performed By: #### 2 795301, 1478165, 77502599, 632488603, 5773429, 3932169 #### [facility] [address] [place] [address] MCH (RBC) [Entitic mass] 28.6 pg Normal 27.0-34.0 [facility] Comment on above: Performed By: #### 2 386230, 4376716, 88620397, 871128983, 8051466, 9237696 #### [facility] [address] [place] [address] MCHC (RBC) [Mass/Vol] 35.1 g/dL Normal 31.4-36.0 [facility] Comment on above: Performed By: #### 2 295421, 7516950, 82857096, 151104887, 4839568, 2619672 #### [facility] [address] [place] [address] MCV (RBC) [Entitic vol] 81.5 fL Normal 80.0-100.0 [facility] Comment on above: Performed By: #### 2 274813, 8085069, 14108914, 012655275, 0428677, 8727161 #### [facility] [address] [place] [address] Platelet mean volume (Bld) [Entitic vol] 8.9 fL Normal 6.4-10.8 [facility] Comment on above: Performed By: #### 2 680597, 7008882, 05684896, 302320403, 7608218, 1483352 #### [facility] [address] [place] [address] Platelets (Bld) [#/Vol] 246.0 E9/L Normal 150.0-500.0 [facility] Comment on above: Performed By: #### 2 991983, 1320177, 73674922, 159418921, 2466101, 6319623 #### [facility] [address] [place] [address] RBC (Bld) [#/Vol] 4.4 E12/L Normal 4.3-5.9 [facility] Comment on above: Performed By: #### 2 858710, 5637126, 06517780, 866241765, 5530031, 9070032 #### [facility] [address] [place] [address] WBC corrected for nucl RBC Auto (Bld) [#/Vol] 10.6 E9/L Normal 4.0-11.0 [facility] Comment on above: Performed By: #### 2 511870, 0125122, 78756219, 415902943, 8777780, 2073450 #### [facility] [address] [place] [address] CHEMISTRYOrdered By: Lab ROP User on 01-22-2023 Glucose [Mass/Vol] 378 mg/dL High 55 - 99 mg/dL FTM C POC Subsection Comment on above: Result Comment: Marino paulson RN/ POC Device SN [id number] Invalid Interpretation Code [facility] POC Subsection POC User ID [id number] Invalid Interpretation Code [facility] POC Subsection POC [...] 113 mL/min/1.73 m2 Normal >=59mL/min/1. 73 m2 [facility] Chem S Troponin I.cardiac [Mass/Vol] 445.10 pg/mL Invalid Interpretation Code 10.10 - 27.10 pg/mL [facility] Comment on above: Result Comment: Crit ical Result verified by previous result\ Critical Result I_hsTnI:445.1 Called to ROSSY MOE at 3N by VERONIQUE REID and read back for confirmation at 01/22/2023 01:58:36 CHEMISTRYOrdered By: Christiano Clay on 01-22-2023 HbA1c (Bld) [Mass fraction] 11.1 % High <=5.9% [facility] ChemAutoSS Capillary Glucose POCon 01-01 Glucose [Mass/Vol] 378 mg/dL High 55-99 [facility] Comment on above: Result Comment: Marino NEWBY Performed By: #### 2 46048858 ####[facility] [address] [place] [address] Glucose [Mass/Vol] 245 mg/dL High 55-99 [facility] Comment on above: Result Comment: Marino NEWBY Performed By: #### 2 881648, 5550138, 23163592, 274294252, 1189131, 1496592 #### [facility] [address] [place] [address] Glucose [Mass/Vol] 268 mg/dL High 55-99 [facility] Comment on above: Result Comment: Marino NEWBY Performed By: #### 2 36933956 ####[facility] [address] [place] [address] Glucose [Mass/Vol] 215 mg/dL High 55-99 [facility] Comment on above: Result Comment: Marino NEWBY Performed By: #### 2 24251510 ####[facility] [address] [place] [address] Glucose [Mass/Vol] 378 mg/dL High 55-99 [facility] Comment on above: Result Comment: Marino paulson RN/ Performed By: #### 2 253247, 6914123, 46788967, 564232986, 2017604, 5707363 #### [facility] [address] [place] [address] Cardiovascular Reporton 01-01 Cardiovascular Report [id number] 3#2.00CD:[address] [facility] HEMATOLOGYOrdered By: SYSTEM SYSTEM on 01-22-2023 [...] Normal 4.0 - 11.0 E9/L [facility] HemeAutoSS [id number] 01-22-2023 HbA1c (Bld) [Mass fraction] 11.1 % High <=5.9 [facility] Comment on above: Performed By: #### 2 854883, 1143994, 39267002, 653544231, 5813577, 6441797 #### [facility] [address] [place] [address] Interdisciplinary Note - Lemuel e Manageron 01-22-2023 Interdisciplinary Note - Director Broadcast CRM entered the room to discuss dc planning. Contact information provided and whiteboard updated. Pt is getting testing. Pending cardiology. ANt dc today. CRM to follow. Normal [facility] Comment on above: Result Comment: Elec tronically Signed By: Cristin Shane\Date and Time Signed: 01/22/23 10:52 EDT Lipid Panelon 01-22-2023 Cholesterol [Mass/Vol] 205 mg/dL High 120-200 [facility] Comment on above: Performed By: #### 2 584275, 0736155, 24321380, 223572570, 1553207, 8270204 #### [facility] [address] [place] [address] Cholesterol in HDL [Mass/Vol] 35 mg/dL Invalid Interpretation Code [facility] Comment on above: Result Comment: HDL > or equal to 60 mg/dL: Low cardiovascular risk HDL < 40 mg/dL : High cardiovascular risk Performed By: #### 2 382760, 8967732, 60583318, 017953624, 0582643, 1051886 #### [facility] [address] [place] [address] Cholesterol in LDL [Mass/Vol] 115 mg/dL Normal <=129 [facility] Comment on above: Performed By: #### 2 344861, 3583746, 64058223, 042983878, 5213156, 9204650 #### [facility] [address] [place] [address] Cholesterol in VLDL [Mass/Vol] 60 mg/dL High 7-40 [facility] Comment on above: Performed By: #### 2 929798, 5469459, 25752283, 688493569, 9406294, 8407887 #### [facility] [address] [place] [address] Triglyceride [Mass/Vol] 300 mg/dL High <=149 [facility] Comment on above: Performed By: #### 2 185903, 8912706, 11838233, 648499816, 2359036, 5412278 #### [facility] [address] [place] [address] Monitor Recordon 01-22-2023 Monitor Record [id number] 6#1.00CD:[address] [facility] Monitor Record [id number] 5#1.00CD:[address] [facility] Monitor Record [id number] 6#1.00CD:[address] [facility] Monitor Record [id number] 5#1.00CD:127 [facility] Pre-Certification Formon Pre-Certification Form [id number] 5#1.00CD:127 [facility] Progress Note-Nurseon 2022 Progress Note-Nurse Report given to JACINTO Burgos, who is taking over patient's care in room 328. Loretta made aware that patient currently down in CV Lab. Patient's belongings taken to room 328. Patient's family member also taken down to room 328. [facility] Progress Note-Nurse This junior copywriter was notified by Dr. Obando at 1303 that patient will go for heart catheterization today. Per Dr. Obando, hold lovenox and make patient NPO. This junior copywriter will do at this time and notify patient of plan of care. [facility] Progress Note-Nurse This junior copywriter entered the patient's room to place lidocaine [...] her right arm would intermittently hurt. This junior copywriter asked patient if there was anything she could do to help the patient any further, but patient denied any further needs. This junior copywriter will notify Dr. Obando that patient has had previous right shoulder pain when moving boxes back in November. [facility] Progress Note-Nurse This junior copywriter was notified by the person performing the echo that patient was having 10/10 right shoulder pain at 10:08. This junior copywriter entered the patient's room to personally assess the patient. Patient stated she was having 10/10 right shoulder pain, but denied having chest pain. Morphine was given at 10:10. Patient stated at 10:12 right shoulder pain was now 6/10, with no chest pain. This junior copywriter personally spoke with Dr. Obando on the phone, who stated to have an EKG performed after the Echo and that he would order a lidocaine patch. This junior copywriter notified both patient and Rema, with radiology that was in the patient's room. Normal [facility] Progress Note-Nurse Patient's step mother called, Chari, requesting updates. Chari not listed in contacts. This junior copywriter asked patient if it was okay to give Chari updates. Patient stated, yes. This junior copywriter updated Chari on plan of care. Chari had no further questions at this time. Normal [facility] Progress Note-Physicianon Progress Note-Physician Assessment/Plan 43-year-old [...] morphine and oxygen. Cardiology consult pending. Ordered: [facility] Care/Day Moderate 35 Minutes 86408 2. Elevated troponin (R77.8: Other specified abnormalities of plasma proteins) Elevated troponin?secondary to NSTEMI. Cardiology consult pending. Continue on aspirin, Lipitor, Lovenox. Echocardiogram pending. Ordered: [facility] Care/Day Moderate 35 Minutes 57679 3. NSTEMI (non-ST elevation myocardial infarction) (I21.4: Non-ST elevation (NSTEMI) myocardial infarction) Acute NSTEMI?present on admission. Cardiology consult pending. Echocardiogram pending. Continue on aspirin, Lipitor, lisinopril, Lovenox. Ordered: [facility] Care/Day Moderate 35 Minutes 53650 4. Hypertensive urgency (I16.0: Hypertensive urgency) Resolved. Continue lisinopril. Ordered: [facility] Care/Day Moderate 35 Minutes 17322 5. Right shoulder pain (M25.511: Pain in right shoulder) Resolved. Ordered: [facility] Care/Day Moderate 35 Minutes 44792 6. 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 Disposition: Pending echocardiogram and cardiology consult. I discussed the diagnosis and plan of care with the patient at the bedside. Moderate level of MDM based on addressing above issues. This documentation was transcribed using voice recognition software. Several attempts were made to ensure accuracy. However inadvertent computerized fingernail sculpturer errors may be present. Ellie Obando. Hospitalist. [...] 05:07:00) Lymph Auto: 24.9 % (01/22/23 05:07:00) [place] Auto: 4.6 % (01/22/23 05:07:00) Eos Auto: 0.2 % (01/22/23 05:07:00) Basophil Auto: 0.4 % (01/22/23 05:07:00) Neutro Absolute: 7.4 E9/L (01/22/23 05:07:00) Lymph Absolute: 2.6 E9/L (06 (more content not included)... Normal [facility] Comment on above: Result Comment: Elec tronically Signed By: GAGE HAIDER, Ellie\.br\Date and Time Signed: 01/22/23 09:41 EDT Troponin 6 Hr.on 01-22-2023 Troponin I.cardiac [Mass/Vol] 467.70 pg/mL Abnormal 10.10-27.10 [facility] Comment on above: Result Comment: Crit [...] conjunction with clinical conditions of myocardial infarction. (Bandwidth High Sensitivity Troponin I Instructions For Use, Screen Tonic, March 2018) Performed By: #### 2 022885, 9059802, 92327336, 205406721, 2894303, 0836754 #### [facility] [address] [place] [address] Troponin 9 Hr.on 01-22-2023 Troponin I.cardiac [Mass/Vol] 445.10 pg/mL Abnormal 10.10-27.10 [facility] Comment on above: Result Comment: Crit [...] conjunction with clinical conditions of myocardial infarction. (Bandwidth High Sensitivity Troponin I Instructions For Use, Screen [place]onic, March 2018) Performed By: #### 1 [id number] #### [facility] [address] [place] [address] XR Chest Single Viewon 01-22 XR Chest [...] mGy = na DAP = na Normal [facility] eGFRon 01-22-2023 GFR/1.73 sq M.predicted among non-blacks MDRD (S/P/Bld) [Vol rate/Area] 113 mL/min/1.73 m2 Normal >=59 [facility] Comment on above: Order Comment: Order added by Discern Expert. Result Comment: Bicycle Mechanic reji kidney disease could be indicated at eGFR's of less than 60 mL/min/1.73m2. Kidney failure is indicated at less than 15 mL/min/1.73m2. Performed By: #### 2 432594, 0657515, 47237898, 911374502, 6642696, 9868065 #### [facility] [address] [place] [address] Auto Diffon 01-21-2023 Basophils/100 WBC (Bld) 0.3 % Normal 0.0-2.0 [facility] Comment on above: Order Comment: Order Added by Discern Expert. Performed By: #### 2 043316, 7450681, 91547899, 255678047, 2573199, 5081555 #### [facility] [address] [place] [address] Basophils/Leukocytes Auto (Bld) [Pure # fraction] 0.0 E9/L Normal 0.0-0.2 [facility] Comment on above: Order Comment: Order Added by Discern Expert. Performed By: #### 2 832591, 6676583, 08819643, 052726869, 0434093, 6945944 #### [facility] [address] [place] [address] Eosinophils/100 WBC (Bld) 0.1 % Normal 0.0-8.0 [facility] Comment on above: Order Comment: Order Added by Discern Expert. Performed By: #### 2 163282, 1823203, 29856954, 132943551, 6886655, 9120900 #### [facility] [address] [place] [address] Eosinophils/Leukocyte s Auto (Bld) [Pure # fraction] 0.0 E9/L Normal 0.0-0.5 [facility] Comment on above: Order Comment: Order Added by Discern Expert. Performed By: #### 2 885973, 1204812, 59402026, 017271329, 2228927, 4951366 #### [facility] [address] [place] [address] Lymphocytes/100 WBC (Bld) 8.6 % Low 14.0-50.0 [facility] Comment on above: Order Comment: Order Added by Discern Expert. Performed By: #### 2 786344, 6650125, 23433185, 561590679, 3971610, 7690975 #### [facility] [address] [place] [address] Lymphocytes/Leukocyte s Auto (Bld) [Pure # fraction] 1.2 E9/L Normal 1.0-4.0 [facility] Comment on above: Order Comment: Order Added by Discern Expert. Performed By: #### 2 270241, 9724093, 81696774, 426974322, 2072183, 5474426 #### [facility] [address] [place] [address] Monocytes/100 WBC (Bld) 4.8 % Normal 4.0-14.0 [facility] Comment on above: Order Comment: Order Added by Discern Expert. Performed By: #### 2 016623, 0540751, 01828036, 507627320, 8454339, 0934678 #### [facility] [address] [place] [address] Monocytes/Leukocytes Auto (Bld) [Pure # fraction] 0.7 E9/L Normal 0.2-1.0 [facility] Comment on above: Order Comment: Order Added by Discern Expert. Performed By: #### 2 864703, 6274533, 30086375, 392512574, 0262819, 2754890 #### [facility] [address] [place] [address] Neutrophils/100 WBC (Bld) 86.2 % High 36.0-75.0 [facility] Comment on above: Order Comment: Order Added by Discern Expert. Performed By: #### 2 039235, 5019761, 63120289, 906133222, 2748336, 0726538 #### [facility] [address] [place] [address] Neutrophils/Leukocyte s Auto (Bld) [Pure # fraction] 12.3 E9/L High 2.0-7.5 [facility] Comment on above: Order Comment: Order Added by Discern Expert. Performed By: #### 2 941812, 2122737, 02487603, 317257474, 8212179, 2805478 #### [facility] [address] [place] [address] BMPon 01-21-2023 Anion gap [Moles/Vol] 14 mmol/L Normal 6-16 [facility] Comment on above: Performed By: #### 2 661413, 0433400, 79448983, 963401893, 6580801, 5552267 #### [facility] [address] [place] [address] Calcium [Mass/Vol] 9.0 mg/dL Normal 8.9-11.1 [facility] Comment on above: Performed By: #### 2 051983, 7092226, 05869004, 861671373, 8930403, 8790120 #### [facility] [address] [place] [address] Chloride [Moles/Vol] 101 mmol/L Normal 101-111 [facility] Comment on above: Performed By: #### 2 687147, 9207364, 74824504, 201547016, 3077101, 3668985 #### [facility] [address] [place] [address] CO2 [Moles/Vol] 18 mmol/L Low 21-31 [facility] Comment on above: Performed By: #### 2 600115, 3874307, 18170165, 395361161, 0914792, 0924044 #### [facility] [address] [place] [address] Creatinine [Mass/Vol] 0.7 mg/dL Normal 0.5-1.3 [facility] Comment on above: Performed By: #### 2 938228, 3784485, 81701991, 833633953, 5681130, 7415886 #### [facility] [address] [place] [address] Glucose [Mass/Vol] 491 mg/dL Abnormal 55-199 [facility] Comment on above: Result Comment: Crit ical Result verified by repeat analysis\Critical Result [id number] MARTIN AT by CIARA HOWARD And Read Back For Confirmation at: 01/21/2023 17:05:30 If this glucose result represents a fasting glucose, interpretation should refer to the following reference range: 55-99 mg/dL Performed By: #### 2 838639, 4375681, 51155073, 198794106, 3485245, 3404517 #### [facility] [address] [place] [address] Potassium [Moles/Vol] 4.0 mmol/L Normal 3.5-5.3 [facility] Comment on above: Performed By: #### 2 128449, 5757294, 55126244, 666771557, 0582551, 5723738 #### [facility] [address] [place] [address] Sodium [Moles/Vol] 129 mmol/L Low 135-145 [facility] Comment on above: Performed By: #### 2 738717, 6787761, 82490988, 804124199, 8208227, 9651553 #### [facility] [address] [place] [address] Urea nitrogen [Mass/Vol] 23 mg/dL High 5-21 [facility] Comment on above: Performed By: #### 2 971219, 0306278, 84524509, 874125412, 2290695, 5934852 #### [facility] [address] [place] [address] Urea nitrogen/Creatinine [Mass ratio] 33 No Units High 10-20 [facility] Comment on above: Performed By: #### 2 191056, 8455323, 36732341, 259288174, 2607761, 7536964 #### [facility] [address] [place] [address] BOHBon 01-21-2023 Beta hydroxybutyrate [Moles/Vol] 0.86 mmol/L High 0.02-0.27 [facility] Comment on above: Performed By: #### 2 904711, 0904659, 12378882, 543076048, 0127340, 1192939 #### [facility] [address] [place] [address] CBC w/ Auto Diffon Erythrocyte distribution width (RBC) [Ratio] 14.2 % Normal 10.9-14.2 [facility] Comment on above: Performed By: #### 2 078396, 7045031, 05813975, 638456242, 1947588, 3771637 #### [facility] [address] [place] [address] Hematocrit (Bld) [Volume fraction] 41.9 % Normal 34.0-46.0 [facility] Comment on above: Performed By: #### 2 236700, 3776883, 73516074, 955201895, 3584227, 0063083 #### [facility] [address] [place] [address] Hemoglobin (Bld) [Mass/Vol] 14.2 g/dL Normal 12.0-16.0 [facility] Comment on above: Performed By: #### 2 998341, 2121325, 44995921, 976413914, 1381519, 4735605 #### [facility] [address] [place] [address] MCH (RBC) [Entitic mass] 28.0 pg Normal 27.0-34.0 [facility] Comment on above: Performed By: #### 2 883375, 1541856, 34348555, 339669859, 6003454, 9190903 #### [facility] [address] [place] [address] MCHC (RBC) [Mass/Vol] 33.9 g/dL Normal 31.4-36.0 [facility] Comment on above: Performed By: #### 2 622513, 2416979, 30219771, 118707543, 3435737, 7752209 #### [facility] [address] [place] [address] MCV (RBC) [Entitic vol] 82.6 fL Normal 80.0-100.0 [facility] Comment on above: Performed By: #### 2 917926, 8948815, 76336176, 752662841, 5096808, 6540525 #### [facility] [address] [place] [address] Platelet mean volume (Bld) [Entitic vol] 8.8 fL Normal 6.4-10.8 [facility] Comment on above: Performed By: #### 2 357716, 5781711, 38144429, 314306192, 3928438, 6879122 #### [facility] [address] [place] [address] Platelets (Bld) [#/Vol] 240.0 E9/L Normal 150.0-500.0 [facility] Comment on above: Performed By: #### 2 406516, 1287040, 28285598, 362902209, 8977205, 0137189 #### [facility] [address] [place] [address] RBC (Bld) [#/Vol] 5.1 E12/L Normal 4.3-5.9 [facility] Comment on above: Performed By: #### 2 439699, 7138059, 27466837, 543894989, 5216510, 7210625 #### [facility] [address] [place] [address] WBC corrected for nucl RBC Auto (Bld) [#/Vol] 14.2 E9/L High 4.0-11.0 [facility] Comment on above: Performed By: #### 2 425262, 2872993, 06808595, 448961880, 2914590, 8872353 #### [facility] [address] [place] [address] CHEMISTRYOrdered By: SYSTEM SYSTEM on 01-21-2023 Troponin [...] 109 mL/min/1.73 m2 Normal >=59mL/min/1. 73 m2 [facility] Chem S Glucose [Mass/Vol] 491 mg/dL Invalid Interpretation Code 55 - 199 mg/dL [facility] Comment on above: Result Comment: Crit ical Result verified by repeat analysis\Critical Result [id number] MARTIN AT ER by CIARA HOWARD And Read Back For Confirmation at: 01/21/2023 17:05:30 Potassium [Moles/Vol] 4.0 mmol/L Normal 3.5 - 5.3 mmol/L [facility] Remisol Sodium [Moles/Vol] 129 mmol/L Low 135 - 145 mmol/L [facility] Urea nitrogen [Mass/Vol] 23 mg/dL High 5 - 21 mg/dL [facility] Urea nitrogen/Creatinine [Mass ratio] 33 mg/mg High 10 - 20 [facility] Consent for Treatmenton 01-01 Consent for Treatment [id number] 98#1.00CD:[address] [facility] ED Clinical Summaryon 2022 ED Clinical Summary [place] [id number] ED Clinical Summary Person Information Name: ESCOBAR ORTEGA Lashae/[facility] Age: 43 Years : 1980 Sex: Female Language: Emirati PCP: Gentry Carrillo MD Marital Status: Phone: [phone] Visit Id: Visit Reason: Chest pain; CHEST PAIN Speciality: Acuity: 3 Enc Type: Observation Med Service: Medical Arrival: 01/21/2023 16:19:22 Discharge: LOS: 000 03:20 Checkin: 01/21/2023 16:19:22 Checkout: 01/21/2023 19:39:40 Dispo Type: Admitted as IP to this [facility] EVENTS: Event Name Event Status Request Date/Time [...] 19:12:01 Meds Admin Request 01/21/2023 19:13:12 ADDRESS: [address] [place] [address] [address] [phone] PHYS DOC NOTES: MEDICAL INFORMATION: Prescriptions Given: Medications to Continue with No Changes Other Medications acetaminophen-hydroc odone (Vicodin 500mg-5mg Tab) 1 Tablets By Mouth every 4 hours as needed for pain. Refills: 0. PATIENT EDUCATION INFORMATION: Instructions: Follow up: With: Address: When: Gentry Carrillo [address] [place] [address], [place] [address] Business (1) In 3 days DIAGNOSIS: 1:Chest pain; 2:Elevated troponin; 3:Hypertensive urgency; 4:Right shoulder pain; 5:Leukocytosis; 6:Hyperglycemia; 7:Hyponatremia; 8:Metabolic acidosis; 9:HTN (hypertension); 10:Diabetes mellitus; 11:Obese; 12:On deep vein thrombosis (DVT) prophylaxis Normal [facility] ED Note-Physicianon 01-22-20 ED Note-Physician Basic Information Time Seen: Daisy Campos M.D. 01/21/2023 16:49 Chief Complaint pt states just seen for arm pain, given rx steroid. 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 She states she was seen at [facility] yesterday and given steroids. The patient [...] and Complexity of Problems Differential Diagnosis: [] [facility] Data External documents reviewed: [] My EKG [...] (primary) hypert (more content not included)... Normal [facility] Comment on above: Result Comment: Elec tronically Signed By: Daisy Campos M.D..brenna\Date and Time Signed: 01/21/23 19:01 EDT ED Patient Education Noteon 01-21-2023 ED Patient Education Note Normal [facility] ED Patient Summaryon 023 ED Patient Summary [address] [address] Patient Discharge Instructions Person Information Name: ESCOBAR ORTEGA Age: 43 Years Arrival Date: 01/21/2023 16:19:22 Discharge Diagnosis: 1:Chest pain; 2:Elevated troponin; 3:Hypertensive urgency; 4:Right shoulder pain; 5:Leukocytosis; 6:Hyperglycemia; 7:Hyponatremia; 8:Metabolic acidosis; 9:HTN (hypertension); 10:Diabetes mellitus; 11:Obese; 12:On deep vein thrombosis (DVT) prophylaxis Primary Care Physician: Gentry Carrillo MD Provider Information Primary Provider: Daisy Campos M.D. Advanced Digital Imaging Technician:None The exam and treatment you received in the Emergency Department were for an urgent problem and are not intended as complete care. It is important that you follow up with a doctor, nurse practitioner, or physician?s access services assistant for ongoing care. If your symptoms [...] Follow-up Instructions: With: Address: When: Gentry Lorena [address] [place] [address], [facility] [place] [address] Business (1) In 3 days In the event that this physician does not participate in your insurance network, please consult with your insurance company to find a nearby participating provider. Patient Education Materials: A MESSAGE TO ALL PATIENTS REGARDING OPIOIDS PRESCRIPTION OPIOIDS: WHAT YOU NEED TO KNOW Prescription opioids can be used to help relieve stadnlfn-co-lenpns pain and are often prescribed following a [...] and overdo (more content not included)... Normal [facility] HEMATOLOGYOrdered By: SYSTEM SYSTEM on 01-21-2023 [...] 8.8 fL Normal 6.4 - 10.8 fL [facility] HemeAutoSS Platelets (Bld) [#/Vol] 240.0 E9/L Normal 150.0 - 500.0 E9/L [facility]eAutoSS RBC (Bld) [#/Vol] 5.1 E12/L Normal 4.3 - 5.9 E12/L [facility] HemeAutoSS WBC corrected for nucl RBC Auto (Bld) [#/Vol] 14.2 E9/L High 4.0 - 11.0 E9/L [facility] HemeAutoSS Monitor Recordon 01-21-2023 Monitor Record [id number] 8#1.00CD:[address] [facility] Monitor Record [id number] 5#1.00CD:[address] [facility] Troponin 0 Hr.on 01-21-2023 Troponin I.cardiac [Mass/Vol] 201.10 pg/mL Abnormal 10.10-27.10 [facility] Comment on above: Result Comment: Crit [...] Sensitivity Troponin I Instructions For Use, [place], March 2018) Performed By: #### 2 377760, 8107694, 18411958, 051125123, 8010219, 3632979 #### [facility] [address] [place] [address] Troponin 3 Hr.on 01-21-2023 Troponin I.cardiac [Mass/Vol] 258.00 pg/mL Abnormal 10.10-27.10 [facility] Comment on above: Order Comment: pt no t yet in room from er as of 1924 [id number] 01/21/2023 19:37:18 EDT Result Comment: Crit ical [...] Ruben, March 2018) Performed By: #### 1 1332839 #### [facility] [address] [place] [address] UA With Cult Reflexon 2022 Bilirubin Ql (U) Negative Normal Negative [facility] Comment on above: Performed By: #### 1 7701116 ####[place] [address] [place] [address] Clarity (U) CLEAR Normal Clear [facility] Comment on above: Performed By: #### 1 7147299 ####[place] [address] [place] [address] Color (U) STRAW Abnormal Yellow [facility] Comment on above: Performed By: #### 1 6827664 ####[place] [address] [place] [address] Epithelial cells.squamous LM.HPF (Urine sed) [#/Area] 0-2 Normal 0-2 [facility] Comment on above: Performed By: #### 1 3836696 ####[facility] [address] [place] [address] Glucose Test strip (U) [Mass/Vol] 3+ Abnormal Negative [facility] Comment on above: Performed By: #### 1 0228691 ####[facility] [address] [place] [address] Hemoglobin Ql (U) Negative Normal Negative [facility] Comment on above: Performed By: #### 1 2143545 ####[place] [address] [place] [address] Ketones (U) [Mass/Vol] 1+ Abnormal Negative [facility] Comment on above: Performed By: #### 1 0975034 ####[place] [address] [place] [address] [place].plasma/Lithiu m.RBC (Bld) [Mass ratio] 0-3 Normal 0-3 [facility] Comment on above: Performed By: #### 1 4977616 ####[address] [address] Nitrite Ql (U) Negative Normal Negative [facility] Comment on above: Performed By: #### 1 9322150 ####[address] [address] pH (U) 6.0 [pH] Invalid Interpretation Code 5.0-9.0 [facility] Comment on above: Performed By: #### 1 3664642 ####[address] [address] Protein (U) [Mass/Vol] Negative Normal Negative [facility] Comment on above: Performed By: #### 1 6582625 ####[address] [address] Specific gravity (U) [Rel density] 1.015 Invalid Interpretation Code 1.005-1.030 [facility] Comment on above: Performed By: #### 1 [id number] ####[address] [address] Type of Urine collection method Clean Catch Normal [facility] Comment on above: Performed By: #### 1 [id number] ####[address] [address] Urobilinogen Qn (U) 0.2 {Ankit'U}/dL Normal 0.0-1.0 [facility] Comment on above: Performed By: #### 1 [id number] ####[address] [address] WBC Auto Ql (U) Negative Normal Negative [facility] Comment on above: Performed By: #### 1 [id number] ####[facility] [address] [place] [address] WBC LM.HPF (Urine sed) [#/Area] 0-5 Normal 0-5 [facility] Comment on above: Performed By: #### 1 [id number] ####[facility] [address] [place] [address] URINALYSISOrdered By: Rogelio Tiwari on 01-21-2023 Bilirubin [...] Interpretation Code Negative [facility] UA Auto SS [place].plasma/Lithiu m.RBC (Bld) [Mass ratio] 0-3 /HPF Normal [...] Desc Clean Catch (01/21/23 5:53 PM) Normal [place] UA Auto SS Urobilinogen Qn (U) 0.5913307 {Ankit'U}/dL Normal 0.0 - 1.0 EU/dL [place] UA Auto SS WBC Auto Ql (U) Negative (01/21/23 5:53 PM) Normal Negative [place] UA Auto SS WBC LM.HPF (Urine sed) [#/Area] 0-5 /HPF Normal 0-5/HPF [place] UA Auto SS eGFRon 01-21-2023 GFR/1.73 sq M.predicted among non-blacks MDRD (S/P/Bld) [Vol rate/Area] 109 mL/min/1.73 m2 Normal >=59 [facility] Comment on above: Order Comment: Order Added by Discern Expert. Result Comment: Bicycle Mechanic reji kidney disease could be indicated at eGFR's of less than 60 mL/min/1.73m2. Kidney failure is indicated at less than 15 mL/min/1.73m2. Performed By: #### 2 [id number], [id number], [id number], [id number] #### [facility] [address] [place] [address] Consent for Treatmenton 11-30 Consent for Treatment [id number] #1.00CD:[address] [facility] Discharge Instructionson Discharge Instructions [id number]#1.00CD:[address] [facility] ED Clinical Summaryon 2022 ED Clinical Summary [address] [address] ED Clinical Summary Person Information Name: ESCOBAR ORTEGA Magnus [facility] Age: 42 Years : 1980 Sex: Female Language: Emirati PCP: Gentry Carrillo MD Marital Status: Phone: [phone] MRN: Visit Id: Visit Reason: Foot pain-swelling; [...] 12/12/2022 08:15:04 ADDRESS: [phone] PHYS DOC NOTES: MEDICAL INFORMATION: Prescriptions Given: Medications to Continue with No Changes Other Medications acetaminophen-hydroc odone (Vicodin 500mg-5mg Tab) 1 Tablets By Mouth every 4 hours as needed for pain. Refills: 0. PATIENT EDUCATION INFORMATION: Instructions: Foot Contusion Follow up: With: Address: When: Nelson HENSLEY - [facility], [facility], [address], [place] [address] 0 Business (1) In 3 days 12/15/2022 Comments: Call the office of the manager of creative services on Wednesday and arrange for evaluation of the toe. With: Address: When: Gentry Carrillo [address] [place] [address], [place] [address] Business (1) In 3 days [...] from the toe. DIAGNOSIS: Toe contusion Normal [facility] ED Note-Physicianon 12-13-19 ED Note-Physician Basic [...] Nelson Meade In 3 days 12/15/2022 EDT [facility] [address] [place] [address]- 3 Business (1) Additional Instructions: Call the office of the manager of creative services on Wednesday and arrange for evaluation of the toe. Gentry Carrillo In 3 days 12/15/2022 EDT [address] [facility] [address]- Business (1) Additional Instructions: Call the office [...] active inp (more content not included)... Normal [facility] Comment on above: Result Comment: Elec [...] may be recommended to support your foot. Fzth-rpu-lhelzqa anti-inflammatory medicines may also be recommended for [...] or lying down. General instructions ? Take ondb-yhm-iyidpyr and prescription medicines only as told by [...] Reviewed: 10/22/2021 Elsevier Patient Education ? 20[address] [employer] Normal [facility] ED Patient Summaryon 023 ED Patient Summary [address] [address] Patient Discharge Instructions Person Information Name: ESCOBAR ORTEGA Age: 42 Years Arrival Date: 12/12/2022 07:19:23 Discharge Diagnosis: Toe contusion Primary Care Physician: Gentry Carrillo MD Provider Information Primary Provider: Pako Metzger DO Advanced Digital Imaging Technician:None The exam and treatment you received in the Emergency Department were for an urgent problem and are not intended as complete care. It is important that you follow up with a doctor, nurse practitioner, or physician?s access services assistant for ongoing care. If your symptoms [...] Follow-up Instructions: With: Address: When: Nelson HENSLEY [facility], [facility], [address] [place] [address], [place] [address] 2 [employer] (1) In 3 days 12/15/2022 Comments: Call the office of the manager of creative services on Wednesday and arrange for evaluation of the toe. With: Address: When: Gentry Lorena [address] [place] [address] [place] [id number] Business (1) In 3 days 12/15/2022 Comments: [...] opioids can be used to help relieve nvovqtcb-vx-ffywlf pain and are often prescribed following a [...] psychological, goal-directed (more content not included)... Normal [facility] XR Toe(s) Min 2 Views Righto [...] mGy = na DAP = na Normal [facility] PAP ACOG PANEL 2: 30 to 65on 06-22-2022 . . Normal [facility] Comment on above: Result Comment: Perf ormed at: WB Performed By: #### L AURELIANO DRIVER, CMP #### [facility] [address] [address] [address] Neisha Araiza Age Gdln ACOG Testing 30-65 Normal [facility] Comment on above: Performed By: #### L AURELIANO DRIVER, CMP #### [facility] [address] [address] [address] Neisha Araiza DIAGNOSIS: Comment Normal [facility] Comment on above: Result Comment: NEGA TIVE FOR INTRAEPITHELIAL LESION OR MALIGNANCY. Performed at: WB Performed By: #### L AURELIANO DRIVER, CMP #### [facility] [address] [address] [address] Neisha Araiza HPV Aptima Negative Normal Negative [facility] Comment on above: Result Comment: This nucleic acid amplification test detects fourteen high-risk HPV types (16,18,31,33,35,39,45,51,52,56,58,59,66,68) without differentiation. Performed at: =G Performed By: #### L AURELIANO DRIVER, CMP #### [facility] [address] [address] [address] Neisha Araiza HPV Genotype Reflex Comment Normal [facility] Comment on above: Result Comment: Crit eria not met, HPV Genotype not performed. Performed at: WB Performed By: #### L AURELIANO DRIVER, CMP #### [facility] [address] [address] [address] Neisha Araiza Methodology: Comment Normal [facility] Comment on above: Result Comment: This liquid based ThinPrep(R) pap test was screened with the use of an image guided system. Performed at: WB Performed By: #### L AURELIANO DRIVER, CMP #### [facility] [address] [address] [address] Neisha Araiza Note: Comment Normal [facility] Comment on above: Result Comment: The [...] By: #### L AURELIANO DRIVER, CMP #### [facility] [address] [place] [address] Dr. Neisha Araiza Performed by: Comment Normal [facility] Comment on above: Result Comment: Tisha Sanders, Hotel Desk Clerk (ASCP) Performed at: WB Performed By: #### L AURELIANO DRIVER, CMP #### [facility] [address] [place] [address] Dr. Neisha Araiza Specimen adequacy: Comment Normal [facility] Comment on above: Result Comment: Sati sfactory for evaluation. Endocervical and/or squamous metaplastic cells (endocervical component) are present. Performed at: WB Performed By: #### L AURELIANO DRIVER, CMP #### [facility] [address] [address] [address] Neisha Araiza [facility]03 SARS-CoV-2 (COVID-19) RNA TIM+probe Ql (Unsp spec) Not detected Normal NOT DETECTED [facility] Comment on above: Result Comment: This test is not yet approved or cleared by the [place] FDA. When there are no FDA-approved or cleared tests available, and other criteria are met, FDA can make tests available under an emergency access mechanism called an Emergency Use Authorization (EUA). The EUA for this test is supported by the [place] of Health and Human Service's (HHS's) declaration [...] SARS-CoV-2. Performed By: #### C BC #### [facility] [address] [place] [address] [address] [address] Neisha Araiza Covid-19 PCR ([facility])on 04-03 SARS-CoV-2 (COVID-19) RNA TIM+probe Ql (Unsp spec) Not detected Normal NOT DETECTED [facility] Comment on above: Result Comment: This test is not yet approved or cleared by the [place] FDA. When there are no FDA-approved or cleared tests available, and other criteria are met, FDA can make tests available under an emergency access mechanism called an Emergency Use Authorization (EUA). The EUA for this test is supported by the Commercial Litigation Attorney of Health and Human Service's (HHS's) declaration [...] SARS-CoV-2. Performed By: #### C BC #### [facility] [address] [address] [address] Neisha Araiza CHLAMYDIA/GONOCOCCUS TIM ( AB/URINE/PAPon 04-17-2022 Chlamydia trachomatis, TIM Negative Normal Negative [facility] Comment on above: Performed By: #### C BC #### [facility] [address] [place] [address] Dr. Neisha Araiza Neisseria gonorrhoeae, TIM Negative Normal Negative [facility] Comment on above: Performed By: #### C BC #### [facility] [address] [place] [address] Dr. Neisha Araiza VAGINITIS/VAGINOSIS DNA PROB [employer] 04-16-2022 Val species Positive Abnormal Negative [facility] Comment on above: Performed By: #### L AURELIANO DRIVER CMP #### [facility] [address] [place] [address] Dr. Neisha Araiza Gardnerella vaginalis Positive Abnormal Negative [facility] Comment on above: Performed By: #### L AURELIANO DRIVER CMP #### [facility] [address] [place] [address] Dr. Neisha Araiza Trichomonas vaginalis Negative Normal Negative [facility] Comment on above: Performed By: #### L AURELIANO DRIVER CMP #### [facility] [address] [place] [address] Dr. Neisha Araiza AMYLASEon 01-05-2022 Amylase [Catalytic activity/Vol] 20 U/L Critically low 25-115 [facility] Comment on above: Performed By: #### C BC #### [facility] [address] [place] [address] Dr. Neisha Araiza CBC AUTO DIFFon 01-05-2022 BASO # 0.0 103/ul Normal 0.0-0.1 [facility] Comment on above: Performed By: #### C BC #### [facility] [address] [place] [address] Dr. Neisha Araiza Basophils/100 WBC (Bld) 0.6 % Normal 0.2-2.0 [facility] Comment on above: Performed By: #### C BC #### [facility] [address] [place] [address] Dr. Neisha Araiza EO # 0.1 103/ul Normal 0.0-0.7 [facility] Comment on above: Performed By: #### C BC #### [facility] [address] [place] [address] Dr. Neisha Araiza Eosinophils/100 WBC (Bld) 0.7 % Critically low 0.9-7.0 [facility] Comment on above: Performed By: #### C BC #### [facility] [address] [place] [address] Dr. Neisha Araiza Erythrocyte distribution width (RBC) [Ratio] 13.5 % Normal 11.0-15.0 [facility] Comment on above: Performed By: #### C BC #### [facility] [address] [place] [address] Dr. Neisha Araiza Hematocrit (Bld) [Volume fraction] 35.3 % Critically low 36.0-48.0 [facility] Comment on above: Performed By: #### C BC #### [facility] [address] [place] [address] Dr. Neisha Araiza Hemoglobin (Bld) [Mass/Vol] 11.8 g/dL Critically low 12.0-16.0 [facility] Comment on above: Performed By: #### C BC #### [facility] [address] [place] [address] Dr. Neisha Araiza IG # 0.02 10e3/ul Normal 0.00-0.03 [facility] Comment on above: Performed By: #### C BC #### [facility] [address] [place] [address] Dr. Neisha Araiza IG % 0.3 % Normal 0.0-0.5 [facility] Comment on above: Performed By: #### C BC #### [facility] [address] [place] [address] Dr. Neisha Araiza LYMPH # 2.3 103/ul Normal 1.2-3.8 [facility] Comment on above: Performed By: #### C BC #### [facility] [address] [place] [address] Dr. Neisha Araiza Lymphocytes/100 WBC (Bld) 33.2 % Normal 20.5-60.0 [facility] Comment on above: Performed By: #### C BC #### [facility] [address] [place] [address] Dr. Neisha Araiza MANUAL DIFF REQ NO Normal [facility] Comment on above: Performed By: #### C BC #### [facility] [address] [place] [address] Dr. Neisha Araiza MCH (RBC) [Entitic mass] 29.1 pg Normal 26.7-34.0 [facility] Comment on above: Performed By: #### C BC #### [facility] [address] [place] [address] Dr. Neisha Araiza MCHC (RBC) [Mass/Vol] 33.4 g/dL Normal 29.9-35.2 [facility] Comment on above: Performed By: #### C BC #### [facility] [address] [place] [address] Dr. Neisha Araiza MCV (RBC) [Entitic vol] 86.9 fL Normal 81.0-99.0 [facility] Comment on above: Performed By: #### C BC #### [facility] [address] [place] [address] Dr. Neisha Araiza MONO # 0.6 103/ul Normal 0.3-0.8 [facility] Comment on above: Performed By: #### C BC #### [facility] [address] [place] [address] Dr. Neisha Araiza Monocytes/100 WBC (Bld) 8.6 % Normal 1.7-12.0 [facility] Comment on above: Performed By: #### C BC #### [facility] [address] [place] [address] Dr. Neisha Araiza NEUT # 3.9 103/ul Normal 1.4-6.5 [facility] Comment on above: Performed By: #### C BC #### [facility] [address] [place] [address] Dr. Neisha Araiza Neutrophils/100 WBC (Bld) 56.6 % Normal 43.0-75.0 [facility] Comment on above: Performed By: #### C BC #### [facility] [address] [place] [address] Dr. Neisha Araiza Platelet mean volume (Bld) [Entitic vol] 9.5 fL Normal 9.5-13.5 [facility] Comment on above: Performed By: #### C BC #### [facility] [address] [place] [address] Dr. Neisha Araiza PLT 200 103/ul Normal 150-450 [facility] Comment on above: Performed By: #### C BC #### [facility] [address] [place] [address] Dr. Neisha Araiza RBC 4.06 106/ul Critically low 4.20-5.40 [facility] Comment on above: Performed By: #### C BC #### [facility] [address] [place] [address] Dr. Neisha Araiza WBC 7.0 103/ul Normal 4.0-11.0 [facility] Comment on above: Performed By: #### C BC #### [facility] [address] [place] [address] Dr. Neisha Araiza LIPASEon 01-05-2022 Lipase [Catalytic activity/Vol] 133.0 U/L Normal 73.0-393.0 [facility] Comment on above: Performed By: #### C BC #### [facility] [address] [place] [address] Dr. Neisha Araiza POINT OF CARE GLUCOSEon Glucose [Mass/Vol] 240 mg/dL Critically high 74-106 [facility] Comment on above: Performed By: #### P OCGLUC #### [facility] [address] [place] [address] Dr. Neisha Araiza Glucose [Mass/Vol] 240 mg/dL Critically high 74-106 [facility] Comment on above: Performed By: #### L IPA, AURELIANO, CMP #### [facility] [address] [place] [address] Dr. Neisha Araiza PROF 14(COMP METB)on 022 Albumin [Mass/Vol] 2.3 g/dL Critically low 3.4-5.0 [facility] Comment on above: Performed By: #### C BC #### [facility] [address] [place] [address] Dr. Neisha Araiza Albumin/Globulin [Mass ratio] 0.8 {ratio} Normal [facility] Comment on above: Performed By: #### C BC #### [facility] [address] [place] [address] Dr. Neisha Araiza ALP [Catalytic activity/Vol] 78 U/L Normal 46-116 [facility] Comment on above: Performed By: #### C BC #### [facility] [address] [place] [address] Dr. Neisha Araiza ALT [Catalytic activity/Vol] 21 U/L Normal 14-59 [facility] Comment on above: Performed By: #### C BC #### [facility] [address] [place] [address] Dr. Neisha Araiza Anion gap [Moles/Vol] 15.2 mmol/L Normal [facility] Comment on above: Performed By: #### C BC #### [facility] [address] [place] [address] Dr. Neisha Araiza AST [Catalytic activity/Vol] 20 U/L Normal 15-37 [facility] Comment on above: Performed By: #### C BC #### [facility] [address] [place] [address] Dr. Neisha Araiza Bilirubin [Mass/Vol] 0.8 mg/dL Normal 0.2-1.0 [facility] Comment on above: Performed By: #### C BC #### [facility] [address] [place] [address] Dr. Neisha Araiza Calcium [Mass/Vol] 7.5 mg/dL Critically low 8.5-10.1 [facility] Comment on above: Performed By: #### C BC #### [facility] [address] [place] [address] Dr. Neisha Araiza Chloride [Moles/Vol] 105 mmol/L Normal 98-107 [facility] Comment on above: Performed By: #### C BC #### [facility] [address] [address] [address] Neisha Araiza CO2 [Moles/Vol] 19.2 mmol/L Critically low 21.0-32.0 [facility] Comment on above: Performed By: #### C BC #### [facility] [address] [address] [address] Neisha Araiza Creatinine [Mass/Vol] 0.59 mg/dL Normal 0.55-1.02 [facility] Comment on above: Performed By: #### C BC #### [facility] [address] [place] [address] Dr. Neisha Araiza EGFR-AF SPANISH >60 Normal >=60 [facility] Comment on above: Performed By: #### C BC #### [facility] [address] [place] [address] Dr. Neisha Araiza EGFR-NON AF SPANISH >60 Normal >=60 [facility] Comment on above: Performed By: #### C BC #### [facility] [address] [address] [address] Neisha Araiza Globulin (S) [Mass/Vol] 2.9 g/dL Normal [facility] Comment on above: Performed By: #### C BC #### [facility] [address] [place] [address] Dr. Neisha Araiza Glucose [Mass/Vol] 240 mg/dL Critically high 74-106 [facility] Comment on above: Performed By: #### C BC #### [facility] [address] [place] [address] Dr. Neisha Araiza Potassium [Moles/Vol] 3.4 mmol/L Critically low 3.5-5.1 [facility] Comment on above: Performed By: #### C BC #### [facility] [address] [place] [address] Dr. Neisha Araiza Protein [Mass/Vol] 5.2 g/dL Critically low 6.4-8.2 [facility] Comment on above: Performed By: #### C BC #### [facility] [address] [address] [address] Neisha Araiza Sodium [Moles/Vol] 136 mmol/L Normal 136-145 [facility] Comment on above: Performed By: #### C BC #### [facility] [address] [address] [address] Neisha Araiza Urea nitrogen [Mass/Vol] 9.0 mg/dL Normal 7.0-18.0 [facility] Comment on above: Performed By: #### C BC #### [facility] [address] [address] [address] Neisha Araiza Urea nitrogen/Creatinine [Mass ratio] 15.3 mg/mg [facility] Comment on above: Performed By: #### C BC #### [facility] [address] [place] [address] Dr. Neisha Araiza BLOOD GASES BTYon 01-04-2022 02 MODE ROOM AIR [facility] Comment on above: Performed By: #### C BC #### [facility] [address] [address] [address] Neisha Araiza ALLENS TEST Positive [facility] Comment on above: Performed By: #### C BC #### [facility] [address] [address] [address] Neisha Araiza Base excess Calc (Bld) [Moles/Vol] -10.21568 mmol/L Critically low -2.0-2.0 [facility] Comment on above: Performed By: #### C BC #### [facility] [address] [address] [address] Neisha Araiza BIPAP PRESSURE Normal [facility] Comment on above: Performed By: #### C BC #### [facility] [address] [place] [address] Dr. Neisha Araiza CO2 [Moles/Vol] 29.0 mmol/L Critically high 23.0-28.0 [facility] Comment on above: Performed By: #### C BC #### [facility] [address] [place] [address] Dr. Neisha Araiza CPAP [facility] Comment on above: Performed By: #### C BC #### [facility] [address] [place] [address] Dr. Neisha Araiza FIO2 [facility] Comment on above: Performed By: #### C BC #### [facility] [address] [address] [address] Neisha Araiza HCO3 (Bld) [Moles/Vol] 17.9 mmol/L Critically low 22.0-26.0 [facility] Comment on above: Performed By: #### C BC #### [facility] [address] [place] [address] Dr. Neisha Araiza LPM [facility] Comment on above: Performed By: #### C BC #### [facility] [address] [place] [address] Dr. Neisha Araiza MINUTE VOLUME Normal [facility] Comment on above: Performed By: #### C BC #### [facility] [address] [place] [address] Dr. Neisha Araiza Oxygen (Bld) [Partial pressure] 95.8 mm[Hg] Normal 80.0-100.0 [facility] Comment on above: Performed By: #### C BC #### [facility] [address] [place] [address] Dr. Neisha Araiza Oxygen saturation in Blood 98.6 % Normal 95.0-100.0 [facility] Comment on above: Performed By: #### C BC #### [facility] [address] [place] [address] Dr. Neisha Araiza PCO2 22.9 mmHg Critically low 35.0-45.0 [facility] Comment on above: Performed By: #### C BC #### [facility] [address] [place] [address] Dr. Neisha Araiza PEEP [facility] Comment on above: Performed By: #### C BC #### [facility] [address] [place] [address] Dr. Neisha Araiza pH (Bld) 7.408 [pH] Normal 7.350-7.450 [facility] Comment on above: Performed By: #### C BC #### [facility] [address] [place] [address] Dr. Neisha Araiza [facility] Comment on above: Performed By: #### C BC #### [facility] [address] [place] [address] Dr. Neisha Araiza [facility] Comment on above: Performed By: #### C BC #### [facility] [address] [place] [address] Dr. Neisha Araiza PUNCTURE SITE RR [facility] Comment on above: Performed By: #### C BC #### [facility] [address] [place] [address] Dr. Neisha Araiza [facility] Comment on above: Performed By: #### C BC #### [facility] [address] [place] [address] Dr. Neisha Araiza [facility] Comment on above: Performed By: #### C BC #### [facility] [address] [place] [address] Dr. Neisha Araiza [facility] Comment on above: Performed By: #### C BC #### [facility] [address] [place] [address] Dr. Neisha Araiza CBC AUTO DIFFon 01-04-2022 BASO # 0.0 103/ul Normal 0.0-0.1 [facility] Comment on above: Performed By: #### C BC #### [facility] [address] [place] [address] Dr. Neisha Araiza Basophils/100 WBC (Bld) 0.3 % Normal 0.2-2.0 [facility] Comment on above: Performed By: #### C BC #### [facility] [address] [place] [address] Dr. Neisha Araiza EO # 0.0 103/ul Normal 0.0-0.7 [facility] Comment on above: Performed By: #### C BC #### [facility] [address] [place] [address] Dr. Neisha Araiza Eosinophils/100 WBC (Bld) 0.0 % Critically low 0.9-7.0 [facility] Comment on above: Performed By: #### C BC #### [facility] [address] [place] [address] Dr. Neisha Araiza Erythrocyte distribution width (RBC) [Ratio] 13.5 % Normal 11.0-15.0 [facility] Comment on above: Performed By: #### C BC #### [facility] [address] [place] [address] Dr. Neisha Araiza Hematocrit (Bld) [Volume fraction] 39.1 % Normal 36.0-48.0 [facility] Comment on above: Performed By: #### C BC #### [facility] [address] [place] [address] Dr. Neisha Araiza Hemoglobin (Bld) [Mass/Vol] 13.3 g/dL Normal 12.0-16.0 [facility] Comment on above: Performed By: #### C BC #### [facility] [address] [place] [address] Dr. Neisha Araiza IG # 0.05 10e3/ul Critically high 0.00-0.03 [facility] Comment on above: Performed By: #### C BC #### [facility] [address] [place] [address] Dr. Neisha Araiza IG % 0.5 % Normal 0.0-0.5 [facility] Comment on above: Performed By: #### C BC #### [facility] [address] [place] [address] Dr. Neisha Araiza LYMPH # 1.4 103/ul Normal 1.2-3.8 [facility] Comment on above: Performed By: #### C BC #### [facility] [address] [place] [address] Dr. Neisha Araiza Lymphocytes/100 WBC (Bld) 14.8 % Critically low 20.5-60.0 [facility] Comment on above: Performed By: #### C BC #### [facility] [address] [place] [address] Dr. Neisha Araiza MANUAL DIFF REQ NO Normal [facility] Comment on above: Performed By: #### C BC #### [facility] [address] [place] [address] Dr. Neisha Araiza MCH (RBC) [Entitic mass] 28.6 pg Normal 26.7-34.0 [facility] Comment on above: Performed By: #### C BC #### [facility] [address] [place] [address] Dr. Neisha Araiza MCHC (RBC) [Mass/Vol] 34.0 g/dL Normal 29.9-35.2 [facility] Comment on above: Performed By: #### C BC #### [facility] [address] [place] [address] Dr. Neisha Araiza MCV (RBC) [Entitic vol] 84.1 fL Normal 81.0-99.0 [facility] Comment on above: Performed By: #### C BC #### [facility] [address] [place] [address] Dr. Neisha Araiza MONO # 0.6 103/ul Normal 0.3-0.8 [facility] Comment on above: Performed By: #### C BC #### [facility] [address] [place] [address] Dr. Neisha Araiza Monocytes/100 WBC (Bld) 5.8 % Normal 1.7-12.0 [facility] Comment on above: Performed By: #### C BC #### [facility] [address] [place] [address] Dr. Neisha Araiza NEUT # 7.6 103/ul Critically high 1.4-6.5 [facility] Comment on above: Performed By: #### C BC #### [facility] [address] [place] [address] Dr. Neisha Araiza Neutrophils/100 WBC (Bld) 78.6 % Critically high 43.0-75.0 [facility] Comment on above: Performed By: #### C BC #### [facility] [address] [address] [address] Neisha Araiza Platelet mean volume (Bld) [Entitic vol] 9.9 fL Normal 9.5-13.5 [facility] Comment on above: Performed By: #### C BC #### [facility] [address] [place] [address] Dr. Neisha Araiza PLT 280 103/ul Normal 150-450 [facility] Comment on above: Performed By: #### C BC #### [facility] [address] [place] [address] Dr. Neisha Araiza RBC 4.65 106/ul Normal 4.20-5.40 [facility] Comment on above: Performed By: #### C BC #### [facility] [address] [place] [address] Dr. Neisha Araiza WBC 9.7 103/ul Normal 4.0-11.0 [facility] Comment on above: Performed By: #### C BC #### [facility] [address] [place] [address] Dr. Neisha Araiza [facility]on SARS-CoV-2 (COVID-19) RNA TIM+probe Ql (Unsp spec) Not detected Normal NOT DETECTED [facility] Comment on above: Result Comment: When [...] for this test is supported by the [place] of [employer] and Human Service's declaration that [...] used). Performed By: #### C BC #### [facility] [address] [address] [address] Neisha Araiza POINT OF CARE GLUCOSEon Glucose [Mass/Vol] 215 mg/dL Critically high [address] [place] [address] Comment on above: Performed By: #### L AURELIANO DRIVER, CMP #### [facility] [address] [address] [address] Neisha Araiza Glucose [Mass/Vol] 187 mg/dL Critically high [address] [place] [address] Comment on above: Performed By: #### C BC #### [facility] [address] [address] [address] Neisha Araiza Glucose [Mass/Vol] 240 mg/dL Critically high [address] [place] [address] Comment on above: Performed By: #### C BC #### [facility] [address] [address] [address] Neisha Araiza Glucose [Mass/Vol] 251 mg/dL Critically high [address] [place] [address] Comment on above: Performed By: #### C BC #### [facility] [address] [address] [address] Neisha Araiza Glucose [Mass/Vol] 264 mg/dL Critically high [address] [place] [address] Comment on above: Performed By: #### L AURELIANO DRIVER, CMP #### [facility] [address] [place] [address] Dr. Neisha Araiza PROF 14(COMP METB)on 022 Albumin [Mass/Vol] 2.9 g/dL Critically low 3.4-5.0 [facility] Comment on above: Performed By: #### L AURELIANO DRIVER, CMP #### [facility] [address] [place] [address] Dr. Neisha Araiza Albumin/Globulin [Mass ratio] 0.9 {ratio} Normal [facility] Comment on above: Performed By: #### L AURELIANO DRIVER, CMP #### [facility] [address] [address] [address] Neisha Araiza ALP [Catalytic activity/Vol] 92 U/L Normal 46-116 [facility] Comment on above: Performed By: #### L IPA, AURELIANO, CMP #### [facility] [address] [place] [address] Dr. Neisha Araiza ALT [Catalytic activity/Vol] 28 U/L Normal 14-59 [facility] Comment on above: Performed By: #### L IPA, AURELIANO, CMP #### [facility] [address] [place] [address] Dr. Neisha Araiza Anion gap [Moles/Vol] 19.9 mmol/L Normal [facility] Comment on above: Performed By: #### L IPA AURELIANO, CMP #### [facility] [address] [place] [address] Dr. Neisha Araiza AST [Catalytic activity/Vol] 14 U/L Critically low 15-37 [facility] Comment on above: Performed By: #### L IPA AURELIANO, CMP #### [facility] [address] [place] [address] Dr. Neisha Araiza Calcium [Mass/Vol] 7.8 mg/dL Critically low 8.5-10.1 [facility] Comment on above: Performed By: #### L IPA AURELIANO, CMP #### [facility] [address] [place] [address] Dr. Neisha Araiza Chloride [Moles/Vol] 102 mmol/L Normal 98-107 [facility] Comment on above: Performed By: #### L IPA AURELIANO, CMP #### [facility] [address] [place] [address] Dr. Neisha Araiza CO2 [Moles/Vol] 17.7 mmol/L Critically low 21.0-32.0 [facility] Comment on above: Performed By: #### L IPA AURELIANO, CMP #### [facility] [address] [place] [address] Dr. Neisha Araiza Creatinine [Mass/Vol] 0.60 mg/dL Normal 0.55-1.02 [facility] Comment on above: Performed By: #### L IPA AURELIANO, CMP #### [facility] [address] [place] [address] Dr. Neisha Araiza EGFR-AF SPANISH >60 Normal >=60 [facility] Comment on above: Performed By: #### L AURELIANO DRIVER, CMP #### [facility] [address] [place] [address] Dr. Neisha Araiza EGFR-NON AF SPANISH >60 Normal >=60 [facility] Comment on above: Performed By: #### L AURELIANO DRIVER, CMP #### [facility] [address] [place] [address] Dr. Neisha Araiza Globulin (S) [Mass/Vol] 3.4 g/dL Normal [facility] Comment on above: Performed By: #### L AURELIANO DRIVER, CMP #### [facility] [address] [place] [address] Dr. Neisha Araiza Glucose [Mass/Vol] 272 mg/dL Critically high 74-106 [facility] Comment on above: Performed By: #### L AURELIANO DRIVER, CMP #### [facility] [address] [place] [address] Dr. Neisha Araiza Potassium [Moles/Vol] 3.6 mmol/L Normal 3.5-5.1 [facility] Comment on above: Performed By: #### L AURELIANO DRIVER, CMP #### [facility] [address] [place] [address] Dr. Neisha Araiza Protein [Mass/Vol] 6.3 g/dL Critically low 6.4-8.2 [facility] Comment on above: Performed By: #### L AURELIANO DRIVER, CMP #### [facility] [address] [place] [address] Dr. Neisha Araiza Sodium [Moles/Vol] 136 mmol/L Normal 136-145 [facility] Comment on above: Performed By: #### L AURELIANO DRIVER, CMP #### [facility] [address] [place] [address] Dr. Neisha Araiza Urea nitrogen [Mass/Vol] 9.0 mg/dL Normal 7.0-18.0 [facility] Comment on above: Performed By: #### L AURELIANO DRIVER, CMP #### [facility] [address] [place] [address] Dr. Neisha Araiza Urea nitrogen/Creatinine [Mass ratio] 15.0 mg/mg Normal [facility] Comment on above: Performed By: #### L AURELIANO DRIVER, CMP #### [facility] [address] [place] [address] Dr. Neisha Araiza XR ABD FLAT_UPon 01-04-2022 [...] MARIAELENA BROWN Date: 2022-01-04 01:26 Normal [facility] ACETONE SERUMon 01-03-2022 ACETONE Negative Normal NEGATIVE [facility] Comment on above: Performed By: #### A CETON #### [facility] [address] [place] [address] Dr. Neisha Araiza ACETONE SMALL Abnormal NEGATIVE [facility] Comment on above: Performed By: #### C BC #### [facility] [address] [place] [address] Dr. Neisha Araiza AMYLASEon 01-03-2022 Amylase [Catalytic activity/Vol] 15 U/L Critically low 25-115 [facility] Comment on above: Performed By: #### L NEISHA AURELIANO, CMP #### [facility] [address] [place] [address] Dr. Neisha Araiza CARDIAC BRI ADMITon 022 CK [Catalytic activity/Vol] 44 U/L Normal 26-192 [facility] Comment on above: Performed By: #### L NEISHA AURELIANO, CMP #### [facility] [address] [place] [address] Dr. Neisha Araiza CK.MB [Mass/Vol] 0.93 ng/mL Normal <=3.60 [facility] Comment on above: Performed By: #### L IPA AURELIANO, CMP #### [facility] [address] [address] [address] Neisha Araiza HSTROP 4.1 pg/mL Normal 4.0-51.3 [facility] Comment on above: Result Comment: CUT- OFF POINTS HAVE BEEN ESTABLISHED BASED ON THE FOURTH UNIVERSAL DEFINITIONS OF MYOCARDIAL INFARCTION. THE UPPER REFERENCE LIMIT (URL) OF TROPONIN, DEFINED THE 99TH PERCENTILE OF cTnI DISTRIBUTION IN A REFERENCE POPULATION, HAS BEEN CONFIRMED THE DECISION THRESHOLD FOR AL DIAGNOSIS. Performed By: #### L AURELIANO DRIVER, CMP #### [facility] [address] [place] [address] Dr. Neisha Araiza ROCIO 20 ng/mL Normal 9-82 [facility] Comment on above: Performed By: #### L AURELIANO DRIVER CMP #### [facility] [address] [place] [address] Dr. Neisha Araiza CBC AUTO DIFFon 01-03-2022 Basophils/100 WBC (Bld) 0.3 % Normal 0.2-2.0 [facility] Comment on above: Performed By: #### C BC #### [facility] [address] [place] [address] Dr. Neisha Araiza Hematocrit (Bld) [Volume fraction] 42.7 % Normal 36.0-48.0 [facility] Comment on above: Performed By: #### C BC #### [facility] [address] [place] [address] Dr. Neisha Araiza Hemoglobin (Bld) [Mass/Vol] 14.3 g/dL Normal 12.0-16.0 [facility] Comment on above: Performed By: #### C BC #### [facility] [address] [place] [address] Dr. Neisha Araiza IG # 0.03 10e3/ul Normal 0.00-0.03 [facility] Comment on above: Performed By: #### C BC #### [facility] [address] [place] [address] Dr. Neisha Araiza IG % 0.3 % Normal 0.0-0.5 [facility] Comment on above: Performed By: #### C BC #### [facility] [address] [address] [address] Neisha Araiza LYMPH # 1.1 103/ul Critically low 1.2-3.8 [facility] Comment on above: Performed By: #### C BC #### [facility] [address] [address] [address] Neisha Araiza Lymphocytes/100 WBC (Bld) 12.9 % Critically low 20.5-60.0 [facility] Comment on above: Performed By: #### C BC #### [facility] [address] [place] [address] Dr. Neisha Araiza MCHC (RBC) [Mass/Vol] 33.5 g/dL Normal 29.9-35.2 [facility] Comment on above: Performed By: #### C BC #### [facility] [address] [place] [address] Dr. Neisha Araiza MCV (RBC) [Entitic vol] 85.2 fL Normal 81.0-99.0 [facility] Comment on above: Performed By: #### C BC #### [facility] [address] [place] [address] Dr. Neisha Araiza MONO # 0.3 103/ul Normal 0.3-0.8 [facility] Comment on above: Performed By: #### C BC #### [facility] [address] [place] [address] Dr. Neisha Araiza Monocytes/100 WBC (Bld) 3.3 % Normal 1.7-12.0 [facility] Comment on above: Performed By: #### C BC #### [facility] [address] [place] [address] Dr. Neisha Araiza NEUT # 7.3 103/ul Critically high 1.4-6.5 [facility] Comment on above: Performed By: #### C BC #### [facility] [address] [place] [address] Dr. Neisha Araiza Neutrophils/100 WBC (Bld) 83.2 % Critically high 43.0-75.0 [facility] Comment on above: Performed By: #### C BC #### [facility] [address] [place] [address] Dr. Neisha Araiza PLT 281 103/ul Normal 150-450 [facility] Comment on above: Performed By: #### C BC #### [facility] [address] [place] [address] Dr. Neisha Araiza RBC 5.01 106/ul Normal 4.20-5.40 [facility] Comment on above: Performed By: #### C BC #### [facility] [address] [place] [address] Dr. Neisha Araiza WBC 8.8 103/ul Normal 4.0-11.0 [facility] Comment on above: Performed By: #### C BC #### [facility] [address] [place] [address] Dr. Neisha Araiza BASO # 0.0 103/ul Normal 0.0-0.1 [facility] Comment on above: Performed By: #### C BC #### [facility] [address] [place] [address] Dr. Neisha Araiza Performed By: #### A CETON #### [facility] [address] [place] [address] Dr. Neisha Araiza Basophils/100 WBC (Bld) 0.5 % Normal 0.2-2.0 [facility] Comment on above: Performed By: #### A CETON #### [facility] [address] [place] [address] Dr. Neisha Araiza EO # 0.0 103/ul Normal 0.0-0.7 [facility] Comment on above: Performed By: #### C BC #### [facility] [address] [place] [address] Dr. Neisha Araiza Performed By: #### A CETON #### [facility] [address] [place] [address] Dr. Neisha Araiza Eosinophils/100 WBC (Bld) 0.0 % Critically low 0.9-7.0 [facility] Comment on above: Performed By: #### C BC #### [facility] [address] [place] [address] Dr. Neisha Araiza Performed By: #### A CETON #### [facility] [address] [place] [address] Dr. Neisha Araiza Erythrocyte distribution width (RBC) [Ratio] 13.2 % Normal 11.0-15.0 [facility] Comment on above: Performed By: #### C BC #### [facility] [address] [place] [address] Dr. Neisha Araiza Performed By: #### A CETON #### [facility] [address] [place] [address] Dr. Neisha Araiza Hematocrit (Bld) [Volume fraction] 45.8 % Normal 36.0-48.0 [facility] Comment on above: Performed By: #### A CETON #### [facility] [address] [place] [address] Dr. Neisha Araiza Hemoglobin (Bld) [Mass/Vol] 15.6 g/dL Normal 12.0-16.0 [facility] Comment on above: Performed By: #### A CETON #### [facility] [address] [place] [address] Dr. Neisha Araiza IG # 0.05 10e3/ul Critically high 0.00-0.03 [facility] Comment on above: Performed By: #### A CETON #### [facility] [address] [place] [address] Dr. Neisha Araiza IG % 0.6 % Critically high 0.0-0.5 [facility] Comment on above: Performed By: #### A CETON #### [facility] [address] [place] [address] Dr. Neisha Araiza LYMPH # 0.7 103/ul Critically low 1.2-3.8 [facility] Comment on above: Performed By: #### A CETON #### [facility] [address] [place] [address] Dr. Neisha Araiza Lymphocytes/100 WBC (Bld) 8.3 % Critically low 20.5-60.0 [facility] Comment on above: Performed By: #### A CETON #### [facility] [address] [place] [address] Dr. Neisha Araiza MANUAL DIFF REQ NO Normal [facility] Comment on above: Performed By: #### C BC #### [facility] [address] [place] [address] Dr. Neisha Araiza Performed By: #### A CETON #### [facility] [address] [place] [address] Dr. Neisha Araiza MCH (RBC) [Entitic mass] 28.5 pg Normal 26.7-34.0 [facility] Comment on above: Performed By: #### C BC #### [facility] [address] [place] [address] Dr. Neisha Araiza Performed By: #### A CETON #### [facility] [address] [place] [address] Dr. Neisha Araiza MCHC (RBC) [Mass/Vol] 34.1 g/dL Normal 29.9-35.2 [facility] Comment on above: Performed By: #### A CETON #### [facility] [address] [place] [address] Dr. Neisha Araiza MCV (RBC) [Entitic vol] 83.7 fL Normal 81.0-99.0 [facility] Comment on above: Performed By: #### A CETON #### [facility] [address] [place] [address] Dr. Neisha Araiza MONO # 0.2 103/ul Critically low 0.3-0.8 [facility] Comment on above: Performed By: #### A CETON #### [facility] [address] [place] [address] Dr. Neisha Araiza Monocytes/100 WBC (Bld) 2.7 % Normal 1.7-12.0 [facility] Comment on above: Performed By: #### A CETON #### [facility] [address] [place] [address] Dr. Neisha Araiza NEUT # 6.9 103/ul Critically high 1.4-6.5 [facility] Comment on above: Performed By: #### A CETON #### [facility] [address] [place] [address] Dr. Neisha Araiza Neutrophils/100 WBC (Bld) 87.9 % Critically high 43.0-75.0 [facility] Comment on above: Performed By: #### A CETON #### [facility] [address] [place] [address] Dr. Neisha Araiza Platelet mean volume (Bld) [Entitic vol] 9.9 fL Normal 9.5-13.5 [facility] Comment on above: Performed By: #### C BC #### [facility] [address] [place] [address] Dr. Neisha Araiza Performed By: #### A CETON #### [facility] [address] [place] [address] Dr. Neisha Araiza PLT 260 103/ul Normal 150-450 [facility] Comment on above: Performed By: #### A CETON #### [facility] [address] [place] [address] Dr. Neisha Araiza RBC 5.47 106/ul Critically high 4.20-5.40 [facility] Comment on above: Performed By: #### A CETON #### [facility] [address] [place] [address] Dr. Neisha Araiza WBC 7.8 103/ul Normal 4.0-11.0 [facility] Comment on above: Performed By: #### A CETON #### [facility] [address] [place] [address] Dr. Neisha Araiza LIPASEon 01-03-2022 Lipase [Catalytic activity/Vol] 72.0 U/L Critically low 73.0-393.0 [facility] Comment on above: Performed By: #### L AURELIANO DRIVER CMP #### [facility] [address] [place] [address] Dr. Neisha Araiza PH VENOUS BLOODon 01-03-2022 PCO2 VENOUS 34.2 mmHg Critically low 40.0-52.0 [facility] Comment on above: Performed By: #### L AURELIANO DRIVER CMP #### [facility] [address] [place] [address] Dr. Neisha Araiza pH VENOUS 7.370 Normal 7.330-7.430 [facility] Comment on above: Performed By: #### L AURELIANO DRIVER, CMP #### [facility] [address] [place] [address] Dr. Neisha Araiza POINT OF CARE GLUCOSEon 06-0 Glucose [Mass/Vol] 283 mg/dL Critically high 74-106 [facility] Comment on above: Performed By: #### L NEISHA AURELIANO, CMP #### [facility] [address] [address] [address] Neisha Araiza Glucose [Mass/Vol] 297 mg/dL Critically high 74-106 [facility] Comment on above: Performed By: #### A CETON #### [facility] [address] [place] [address] Dr. Neisha Araiza PROF 14(COMP METB)on 022 Albumin [Mass/Vol] 3.6 g/dL Normal 3.4-5.0 [facility] Comment on above: Performed By: #### L AURELIANO DRIVER, CMP #### [facility] [address] [place] [address] Dr. Neisha Araiza Albumin/Globulin [Mass ratio] 0.8 {ratio} Normal [facility] Comment on above: Performed By: #### L NEISHA AURLEIANO, CMP #### [facility] [address] [place] [address] Dr. Neisha Araiza ALP [Catalytic activity/Vol] 131 U/L Critically high 46-116 [facility] Comment on above: Performed By: #### L IPA AURELIANO, CMP #### [facility] [address] [place] [address] Dr. Neisha Araiza ALT [Catalytic activity/Vol] 39 U/L Normal 14-59 [facility] Comment on above: Performed By: #### L IPA AURELIANO, CMP #### [facility] [address] [place] [address] Dr. Neisha Araiza Anion gap [Moles/Vol] 20.7 mmol/L Normal [facility] Comment on above: Performed By: #### L IPA AURELIANO, CMP #### [facility] [address] [address] [address] Neisha Araiza AST [Catalytic activity/Vol] 19 U/L Normal 15-37 [facility] Comment on above: Performed By: #### L IPA AURELIANO, CMP #### [facility] [address] [place] [address] Dr. Neisha Araiza Calcium [Mass/Vol] 8.9 mg/dL Normal 8.5-10.1 [facility] Comment on above: Performed By: #### L IPA AURELIANO, CMP #### [facility] [address] [place] [address] Dr. Neisha Araiza Chloride [Moles/Vol] 97 mmol/L Critically low 98-107 [facility] Comment on above: Performed By: #### L IPA AURELIANO, CMP #### [facility] [address] [place] [address] Dr. Neisha Araiza CO2 [Moles/Vol] 19.2 mmol/L Critically low 21.0-32.0 [facility] Comment on above: Performed By: #### L NEISHA AURELIANO, CMP #### [facility] [address] [place] [address] Dr. Neisha Araiza Creatinine [Mass/Vol] 0.60 mg/dL Normal 0.55-1.02 [facility] Comment on above: Performed By: #### L NEISHA AURELIANO, CMP #### [facility] [address] [place] [address] Dr. Neisha Araiza Globulin (S) [Mass/Vol] 4.3 g/dL Normal [facility] Comment on above: Performed By: #### L IPA AURELIANO, CMP #### [facility] [address] [place] [address] Dr. Neisha Araiza Glucose [Mass/Vol] 368 mg/dL Critically high 74-106 [facility] Comment on above: Performed By: #### L IPA AURELIANO, CMP #### [facility] [address] [place] [address] Dr. Neisha Araiza Protein [Mass/Vol] 7.9 g/dL Normal 6.4-8.2 [facility] Comment on above: Performed By: #### L AURELIANO DRIVER, CMP #### [facility] [address] [place] [address] Dr. Neisha Araiza Sodium [Moles/Vol] 133 mmol/L Critically low 136-145 [facility] Comment on above: Performed By: #### L AURELIANO DRIVER, CMP #### [facility] [address] [place] [address] Dr. Neisha Araiza Urea nitrogen [Mass/Vol] 13.0 mg/dL Normal 7.0-18.0 [facility] Comment on above: Performed By: #### L AURELIANO DRIVER, CMP #### [facility] [address] [place] [address] Dr. Neisha Araiza Urea nitrogen/Creatinine [Mass ratio] 21.7 mg/mg Normal [facility] Comment on above: Performed By: #### L AURELIANO DRIVER, CMP #### [facility] [address] [place] [address] Dr. Neisha Araiza PROF CHEM 8 (BAS METB)on Anion gap [Moles/Vol] 20.2 mmol/L Normal [facility] Comment on above: Performed By: #### L AURELIANO DRIVER, CMP #### [facility] [address] [place] [address] Dr. Neisha Araiza Calcium [Mass/Vol] 8.0 mg/dL Critically low 8.5-10.1 [facility] Comment on above: Performed By: #### L AURELIANO DRIVER, CMP #### [facility] [address] [place] [address] Dr. Neisha Araiza Chloride [Moles/Vol] 102 mmol/L Normal 98-107 [facility] Comment on above: Performed By: #### L AURELIANO DRIVER, CMP #### [facility] [address] [place] [address] Dr. Neisha Araiza CO2 [Moles/Vol] 16.7 mmol/L Critically low 21.0-32.0 [facility] Comment on above: Performed By: #### L IPA AURELIANO, CMP #### [facility] [address] [address] [address] Neisha Araiza Creatinine [Mass/Vol] 0.62 mg/dL Normal 0.55-1.02 [facility] Comment on above: Performed By: #### L IPA AURELIANO, CMP #### [facility] [address] [address] [address] Neisha Araiza Glucose [Mass/Vol] 287 mg/dL Critically high 74-106 [facility] Comment on above: Performed By: #### L IPA AURELIANO, CMP #### [facility] [address] [address] [address] Neisha Araiza Sodium [Moles/Vol] 135 mmol/L Critically low 136-145 [facility] Comment on above: Performed By: #### L IPA AURELIANO, CMP #### [facility] [address] [place] [address] Dr. Neisha Araiza Urea nitrogen [Mass/Vol] 11.0 mg/dL Normal 7.0-18.0 [facility] Comment on above: Performed By: #### L NEISHA AURELIANO, CMP #### [facility] [address] [place] [address] Dr. Neisha Aariza Urea nitrogen/Creatinine [Mass ratio] 17.7 mg/mg Normal [facility] Comment on above: Performed By: #### L NEISHA AURELIANO, CMP #### [facility] [address] [place] [address] Dr. Neisha Araiza EGFR-AF SPANISH >60 Normal >=60 [facility] Comment on above: Performed By: #### L IPA AURELIANO, CMP #### [facility] [address] [place] [address] Dr. Neisha Araiza EGFR-NON AF SPANISH >60 Normal >=60 [facility] Comment on above: Performed By: #### L IPA AURELIANO, CMP #### [facility] [address] [place] [address] Dr. Neisha Araiza Potassium [Moles/Vol] 3.9 mmol/L Normal 3.5-5.1 [facility] Comment on above: Performed By: #### L IPA, AURELIANO, CMP #### [facility] [address] [place] [address] Dr. Neisha Araiza CBC AUTO DIFFon 12-12-2021 BASO # 0.1 103/ul Normal 0.0-0.1 [facility] Comment on above: Performed By: #### C BC #### [facility] [address] [place] [address] Dr. Neisha Araiza Basophils/100 WBC (Bld) 0.6 % Normal 0.2-2.0 [facility] Comment on above: Performed By: #### C BC #### [facility] [address] [place] [address] Dr. Neisha Araiza EO # 0.0 103/ul Normal 0.0-0.7 [facility] Comment on above: Performed By: #### C BC #### [facility] [address] [place] [address] Dr. Neisha Araiza Eosinophils/100 WBC (Bld) 0.5 % Critically low 0.9-7.0 [facility] Comment on above: Performed By: #### C BC #### [facility] [address] [place] [address] Dr. Neisha Araiza Erythrocyte distribution width (RBC) [Ratio] 12.6 % Normal 11.0-15.0 [facility] Comment on above: Performed By: #### C BC #### [facility] [address] [place] [address] Dr. Neisha Araiza Hematocrit (Bld) [Volume fraction] 40.7 % Normal 36.0-48.0 [facility] Comment on above: Performed By: #### C BC #### [facility] [address] [place] [address] Dr. Neisha Araiza Hemoglobin (Bld) [Mass/Vol] 14.4 g/dL Normal 12.0-16.0 [facility] Comment on above: Performed By: #### C BC #### [facility] [address] [place] [address] Dr. Neisha Araiza IG # 0.05 10e3/ul Critically high 0.00-0.03 [facility] Comment on above: Performed By: #### C BC #### [facility] [address] [place] [address] Dr. Neisha Araiza IG % 0.6 % Critically high 0.0-0.5 [facility] Comment on above: Performed By: #### C BC #### [facility] [address] [place] [address] Dr. Neisha Araiza LYMPH # 2.3 103/ul Normal 1.2-3.8 [facility] Comment on above: Performed By: #### C BC #### [facility] [address] [place] [address] Dr. Neisha Araiza Lymphocytes/100 WBC (Bld) 26.2 % Normal 20.5-60.0 [facility] Comment on above: Performed By: #### C BC #### [facility] [address] [place] [address] Dr. Neisha Araiza MANUAL DIFF REQ NO Normal [facility] Comment on above: Performed By: #### C BC #### [facility] [address] [place] [address] Dr. Neisha Araiza MCH (RBC) [Entitic mass] 28.4 pg Normal 26.7-34.0 [facility] Comment on above: Performed By: #### C BC #### [facility] [address] [place] [address] Dr. Neisha Araiza MCHC (RBC) [Mass/Vol] 35.4 g/dL Critically high 29.9-35.2 [facility] Comment on above: Performed By: #### C BC #### [facility] [address] [place] [address] Dr. Neisha Araiza MCV (RBC) [Entitic vol] 80.3 fL Critically low 81.0-99.0 [facility] Comment on above: Performed By: #### C BC #### [facility] [address] [place] [address] Dr. Neisha Araiza MONO # 0.5 103/ul Normal 0.3-0.8 [facility] Comment on above: Performed By: #### C BC #### [facility] [address] [place] [address] Dr. Neisha Araiza Monocytes/100 WBC (Bld) 5.5 % Normal 1.7-12.0 [facility] Comment on above: Performed By: #### C BC #### [facility] [address] [place] [address] Dr. Neisha Araiza NEUT # 5.7 103/ul Normal 1.4-6.5 [facility] Comment on above: Performed By: #### C BC #### [facility] [address] [place] [address] Dr. Neisha Araiza Neutrophils/100 WBC (Bld) 66.6 % Normal 43.0-75.0 [facility] Comment on above: Performed By: #### C BC #### [facility] [address] [place] [address] Dr. Neisha Araiza Platelet mean volume (Bld) [Entitic vol] 9.5 fL Normal 9.5-13.5 [facility] Comment on above: Performed By: #### C BC #### [facility] [address] [place] [address] Dr. Neisha Araiza PLT 266 103/ul Normal 150-450 [facility] Comment on above: Performed By: #### C BC #### [facility] [address] [place] [address] Dr. Neisha Araiza RBC 5.07 106/ul Normal 4.20-5.40 [facility] Comment on above: Performed By: #### C BC #### [facility] [address] [place] [address] Dr. Neisha Araiza WBC 8.6 103/ul Normal 4.0-11.0 [facility] Comment on above: Performed By: #### C BC #### [facility] [address] [place] [address] Dr. Neisha Araiza POINT OF CARE GLUCOSEon 05-1 Glucose [Mass/Vol] 157 mg/dL Critically high 74-106 [facility] Comment on above: Performed By: #### C BC #### [facility] [address] [address] [address] Neisha Araiza Glucose [Mass/Vol] 223 mg/dL Critically high 74-106 [facility] Comment on above: Performed By: #### L AURELIANO DRIVER, CMP #### [facility] [address] [place] [address] Dr. Neisha Araiza PROF 14(COMP METB)on 022 Albumin [Mass/Vol] 3.1 g/dL Critically low 3.4-5.0 [facility] Comment on above: Performed By: #### C BC #### [facility] [address] [place] [address] Dr. Neisha Araiza Albumin/Globulin [Mass ratio] 0.9 {ratio} Normal [facility] Comment on above: Performed By: #### C BC #### [facility] [address] [place] [address] Dr. Neisha Araiza ALP [Catalytic activity/Vol] 96 U/L Normal 46-116 [facility] Comment on above: Performed By: #### C BC #### [facility] [address] [place] [address] Dr. Neisha Araiza ALT [Catalytic activity/Vol] 28 U/L Normal 14-59 [facility] Comment on above: Performed By: #### C BC #### [facility] [address] [place] [address] Dr. Neisha Araiza Anion gap [Moles/Vol] 17.9 mmol/L Normal [facility] Comment on above: Performed By: #### C BC #### [facility] [address] [place] [address] Dr. Neisha Araiza AST [Catalytic activity/Vol] 19 U/L Normal 15-37 [facility] Comment on above: Performed By: #### C BC #### [facility] [address] [place] [address] Dr. Neisha Araiza Bilirubin [Mass/Vol] 1.0 mg/dL Normal 0.2-1.0 [facility] Comment on above: Performed By: #### C BC #### [facility] [address] [address] [address] Neisha Araiza Calcium [Mass/Vol] 8.1 mg/dL Critically low 8.5-10.1 [facility] Comment on above: Performed By: #### C BC #### [facility] [address] [address] [address] Neisha Araiza Chloride [Moles/Vol] 95 mmol/L Critically low 98-107 [facility] Comment on above: Performed By: #### C BC #### [facility] [address] [place] [address] Dr. Neisha Araiza CO2 [Moles/Vol] 19.2 mmol/L Critically low 21.0-32.0 [facility] Comment on above: Performed By: #### C BC #### [facility] [address] [place] [address] Dr. Neisha Araiza Creatinine [Mass/Vol] 0.51 mg/dL Critically low 0.55-1.02 [facility] Comment on above: Performed By: #### C BC #### [facility] [address] [place] [address] Dr. Neisha Araiza EGFR-AF SPANISH >60 Normal >=60 [facility] Comment on above: Performed By: #### C BC #### [facility] [address] [place] [address] Dr. Neisha Araiza EGFR-NON AF SPANISH >60 Normal >=60 [facility] Comment on above: Performed By: #### C BC #### [facility] [address] [place] [address] Dr. Neisha Araiza Globulin (S) [Mass/Vol] 3.6 g/dL Normal [facility] Comment on above: Performed By: #### C BC #### [facility] [address] [place] [address] Dr. Neisha Araiza Glucose [Mass/Vol] 230 mg/dL Critically high 74-106 [facility] Comment on above: Performed By: #### C BC #### [facility] [address] [place] [address] Dr. Neisha Araiza Potassium [Moles/Vol] 3.1 mmol/L Critically low 3.5-5.1 [facility] Comment on above: Performed By: #### C BC #### [facility] [address] [place] [address] Dr. Neisha Araiza Protein [Mass/Vol] 6.7 g/dL Normal 6.4-8.2 [facility] Comment on above: Performed By: #### C BC #### [facility] [address] [place] [address] Dr. Neisha Araiza Sodium [Moles/Vol] 129 mmol/L Critically low 136-145 [facility] Comment on above: Performed By: #### C BC #### [facility] [address] [place] [address] Dr. Neisha Araiza Urea nitrogen [Mass/Vol] 5.0 mg/dL Critically low 7.0-18.0 [facility] Comment on above: Performed By: #### C BC #### [facility] [address] [place] [address] Dr. Neisha Araiza Urea nitrogen/Creatinine [Mass ratio] 9.8 mg/mg Normal [facility] Comment on above: Performed By: #### C BC #### [facility] [address] [place] [address] Dr. Neisha Araiza CBC AUTO DIFFon 12-11-2021 BASO # 0.0 103/ul Normal 0.0-0.1 [facility] Comment on above: Performed By: #### C BC #### [facility] [address] [place] [address] Dr. Neisha Araiza Basophils/100 WBC (Bld) 0.5 % Normal 0.2-2.0 [facility] Comment on above: Performed By: #### C BC #### [facility] [address] [place] [address] Dr. Neisha Araiza EO # 0.0 103/ul Normal 0.0-0.7 [facility] Comment on above: Performed By: #### C BC #### [facility] [address] [place] [address] Dr. Neisha Araiza Eosinophils/100 WBC (Bld) 0.2 % Critically low 0.9-7.0 [facility] Comment on above: Performed By: #### C BC #### [facility] [address] [place] [address] Dr. Neisha Araiza Erythrocyte distribution width (RBC) [Ratio] 12.4 % Normal 11.0-15.0 [facility] Comment on above: Performed By: #### C BC #### [facility] [address] [place] [address] Dr. Neisha Araiza Hematocrit (Bld) [Volume fraction] 39.3 % Normal 36.0-48.0 [facility] Comment on above: Performed By: #### C BC #### [facility] [address] [place] [address] Dr. Neisha Araiza Hemoglobin (Bld) [Mass/Vol] 13.5 g/dL Normal 12.0-16.0 [facility] Comment on above: Performed By: #### C BC #### [facility] [address] [place] [address] Dr. Neisha Araiza IG # 0.04 10e3/ul Critically high 0.00-0.03 [facility] Comment on above: Performed By: #### C BC #### [facility] [address] [place] [address] Dr. Neisha Araiza IG % 0.5 % Normal 0.0-0.5 [facility] Comment on above: Performed By: #### C BC #### [facility] [address] [place] [address] Dr. Neisha Araiza LYMPH # 1.8 103/ul Normal 1.2-3.8 [facility] Comment on above: Performed By: #### C BC #### [facility] [address] [place] [address] Dr. Neisha Araiza Lymphocytes/100 WBC (Bld) 21.7 % Normal 20.5-60.0 [facility] Comment on above: Performed By: #### C BC #### [facility] [address] [place] [address] Dr. Neisha Araiza MANUAL DIFF REQ NO Normal [facility] Comment on above: Performed By: #### C BC #### [facility] [address] [place] [address] Dr. Neisha Araiza MCH (RBC) [Entitic mass] 28.2 pg Normal 26.7-34.0 [facility] Comment on above: Performed By: #### C BC #### [facility] [address] [place] [address] Dr. Neisha Araiza MCHC (RBC) [Mass/Vol] 34.4 g/dL Normal 29.9-35.2 [facility] Comment on above: Performed By: #### C BC #### [facility] [address] [place] [address] Dr. Neisha Araiza MCV (RBC) [Entitic vol] 82.2 fL Normal 81.0-99.0 [facility] Comment on above: Performed By: #### C BC #### [facility] [address] [place] [address] Dr. Neisha Araiza MONO # 0.5 103/ul Normal 0.3-0.8 [facility] Comment on above: Performed By: #### C BC #### [facility] [address] [place] [address] Dr. Neisha Araiza Monocytes/100 WBC (Bld) 6.4 % Normal 1.7-12.0 [facility] Comment on above: Performed By: #### C BC #### [facility] [address] [place] [address] Dr. Neisha Araiza NEUT # 5.7 103/ul Normal 1.4-6.5 [facility] Comment on above: Performed By: #### C BC #### [facility] [address] [place] [address] Dr. Neisha Araiza Neutrophils/100 WBC (Bld) 70.7 % Normal 43.0-75.0 [facility] Comment on above: Performed By: #### C BC #### [facility] [address] [place] [address] Dr. Neisha Araiza Platelet mean volume (Bld) [Entitic vol] 9.4 fL Critically low 9.5-13.5 [facility] Comment on above: Performed By: #### C BC #### [facility] [address] [place] [address] Dr. Neisha Araiza PLT 250 103/ul Normal 150-450 [facility] Comment on above: Performed By: #### C BC #### [facility] [address] [place] [address] Dr. Neisha Araiza RBC 4.78 106/ul Normal 4.20-5.40 [facility] Comment on above: Performed By: #### C BC #### [facility] [address] [place] [address] Dr. Neisha Araiza WBC 8.1 103/ul Normal 4.0-11.0 [facility] Comment on above: Performed By: #### C BC #### [facility] [address] [place] [address] Dr. Neisha Araiza POINT OF CARE GLUCOSEon 11-30 Glucose [Mass/Vol] 232 mg/dL Critically high 74-106 [facility] Comment on above: Performed By: #### L AURELIANO DRIVER, CMP #### [facility] [address] [place] [address] Dr. Neisha Araiza Glucose [Mass/Vol] 197 mg/dL Critically high -106 [facility] Comment on above: Performed By: #### L AURELIANO DRIVER, CMP #### [facility] [address] [place] [address] Dr. Neisha Araiza Glucose [Mass/Vol] 289 mg/dL Critically high -106 [facility] Comment on above: Performed By: #### C BC #### [facility] [address] [place] [address] Dr. Neisha Araiza Glucose [Mass/Vol] 200 mg/dL Critically high -106 [facility] Comment on above: Performed By: #### A CETON #### [facility] [address] [place] [address] Dr. Neisha Araiza PROF 14(COMP METB)on 022 Albumin [Mass/Vol] 2.9 g/dL Critically low 3.4-5.0 [facility] Comment on above: Performed By: #### L AURELIANO DRIVER, CMP #### [facility] [address] [address] [address] Neisha Araiza Albumin/Globulin [Mass ratio] 0.8 {ratio} Normal [facility] Comment on above: Performed By: #### L NEISHA AURELIANO, CMP #### [facility] [address] [address] [address] Neisha Araiza ALP [Catalytic activity/Vol] 90 U/L Normal 46-116 [facility] Comment on above: Performed By: #### L AURELIANO DRIVER, CMP #### [facility] [address] [place] [address] Dr. Neisha Araiza ALT [Catalytic activity/Vol] 26 U/L Normal 14-59 [facility] Comment on above: Performed By: #### L AURELIANO DRIVER, CMP #### [facility] [address] [address] [address] Neisha Araiza Anion gap [Moles/Vol] 17.6 mmol/L Normal [facility] Comment on above: Performed By: #### L AURELIANO DRIVER, CMP #### [facility] [address] [place] [address] Dr. Neisha Araiza AST [Catalytic activity/Vol] 19 U/L Normal 15-37 [facility] Comment on above: Performed By: #### L AURELIANO DRIVER, CMP #### [facility] [address] [address] [address] Neisha Araiza Bilirubin [Mass/Vol] 0.8 mg/dL Normal 0.2-1.0 [facility] Comment on above: Performed By: #### L AURELIANO DRIVER, CMP #### [facility] [address] [address] [address] Neisha Araiza Calcium [Mass/Vol] 7.9 mg/dL Critically low 8.5-10.1 [facility] Comment on above: Performed By: #### L NEISHA AURELIANO, CMP #### [facility] [address] [address] [address] Neisha Araiza Chloride [Moles/Vol] 98 mmol/L Normal 98-107 [facility] Comment on above: Performed By: #### L AURELIANO DRIVER, CMP #### [facility] [address] [address] [address] Neisha Araiza CO2 [Moles/Vol] 18.6 mmol/L Critically low 21.0-32.0 [facility] Comment on above: Performed By: #### L AURELIANO DRIVER, CMP #### [facility] [address] [address] [address] Neisha Araiza Creatinine [Mass/Vol] 0.50 mg/dL Critically low 0.55-1.02 [facility] Comment on above: Performed By: #### L AURELIANO DRIVER, CMP #### [facility] [address] [place] [address] Dr. Neisha Araiza EGFR-AF SPANISH >60 Normal >=60 [facility] Comment on above: Performed By: #### L AURELIANO DRIVER, CMP #### [facility] [address] [place] [address] Dr. Neisha Araiza EGFR-NON AF SPANISH >60 Normal >=60 [facility] Comment on above: Performed By: #### L AURELIANO DRIVER, CMP #### [facility] [address] [place] [address] Dr. Neisha Araiza Globulin (S) [Mass/Vol] 3.5 g/dL Normal [facility] Comment on above: Performed By: #### L AURELIANO DRIVER, CMP #### [facility] [address] [place] [address] Dr. Neisha Araiza Glucose [Mass/Vol] 195 mg/dL Critically high 74-106 [facility] Comment on above: Performed By: #### L AURELIANO DRIVER, CMP #### [facility] [address] [place] [address] Dr. Neisha Araiza Potassium [Moles/Vol] 3.2 mmol/L Critically low 3.5-5.1 [facility] Comment on above: Performed By: #### L IPA, AURELIANO, CMP #### [facility] [address] [address] [address] Neisha Araiza Protein [Mass/Vol] 6.4 g/dL Normal 6.4-8.2 [facility] Comment on above: Performed By: #### L IPA, AURELIANO, CMP #### [facility] [address] [place] [address] Dr. Neisha Araiza Sodium [Moles/Vol] 131 mmol/L Critically low 136-145 [facility] Comment on above: Performed By: #### L IPA AURELIANO, CMP #### [facility] [address] [place] [address] Dr. Neisha Araiza Urea nitrogen [Mass/Vol] 7.0 mg/dL Normal 7.0-18.0 [facility] Comment on above: Performed By: #### L NEISHA AURELIANO, CMP #### [facility] [address] [place] [address] Dr. Neisha Araiza Urea nitrogen/Creatinine [Mass ratio] 14.0 mg/mg Normal [facility] Comment on above: Performed By: #### L AURELIANO DRIVER, CMP #### [facility] [address] [place] [address] Dr. Neisha Araiza ACETONE SERUMon 12-10-2021 ACETONE SMALL Abnormal NEGATIVE [facility] Comment on above: Performed By: #### L AURELIANO DRIVER, CMP #### [facility] [address] [place] [address] Dr. Neisha Araiza AMYLASEon 12-10-2021 Amylase [Catalytic activity/Vol] 31 U/L Normal 25-115 [facility] Comment on above: Performed By: #### L AURELIANO DRIVER, CMP #### [facility] [address] [place] [address] Dr. Neisha Araiza CBC AUTO DIFFon 12-10-2021 BASO # 0.0 103/ul Normal 0.0-0.1 [facility] Comment on above: Performed By: #### C BC #### [facility] [address] [place] [address] Dr. Neisha Araiza Basophils/100 WBC (Bld) 0.5 % Normal 0.2-2.0 [facility] Comment on above: Performed By: #### C BC #### [facility] [address] [place] [address] Dr. Neisha Araiza EO # 0.0 103/ul Normal 0.0-0.7 [facility] Comment on above: Performed By: #### C BC #### [facility] [address] [place] [address] Dr. Neisha Araiza Eosinophils/100 WBC (Bld) 0.0 % Critically low 0.9-7.0 [facility] Comment on above: Performed By: #### C BC #### [facility] [address] [place] [address] Dr. Neisha Araiza Erythrocyte distribution width (RBC) [Ratio] 12.5 % Normal 11.0-15.0 [facility] Comment on above: Performed By: #### C BC #### [facility] [address] [place] [address] Dr. Neisha Araiza Hematocrit (Bld) [Volume fraction] 43.3 % Normal 36.0-48.0 [facility] Comment on above: Performed By: #### C BC #### [facility] [address] [place] [address] Dr. Neisha Araiza Hemoglobin (Bld) [Mass/Vol] 15.3 g/dL Normal 12.0-16.0 [facility] Comment on above: Performed By: #### C BC #### [facility] [address] [place] [address] Dr. Neisha Araiza IG # 0.06 10e3/ul Critically high 0.00-0.03 [facility] Comment on above: Performed By: #### C BC #### [facility] [address] [place] [address] Dr. Neisha Araiza IG % 0.7 % Critically high 0.0-0.5 [facility] Comment on above: Performed By: #### C BC #### [facility] [address] [place] [address] Dr. Neisha Araiza LYMPH # 0.9 103/ul Critically low 1.2-3.8 [facility] Comment on above: Performed By: #### C BC #### [facility] [address] [place] [address] Dr. Neisha Araiza Lymphocytes/100 WBC (Bld) 10.8 % Critically low 20.5-60.0 [facility] Comment on above: Performed By: #### C BC #### [facility] [address] [place] [address] Dr. Neisha Araiza MANUAL DIFF REQ NO Normal [facility] Comment on above: Performed By: #### C BC #### [facility] [address] [place] [address] Dr. Neisha Araiza MCH (RBC) [Entitic mass] 28.4 pg Normal 26.7-34.0 [facility] Comment on above: Performed By: #### C BC #### [facility] [address] [place] [address] Dr. Neisha Araiza MCHC (RBC) [Mass/Vol] 35.3 g/dL Critically high 29.9-35.2 [facility] Comment on above: Performed By: #### C BC #### [facility] [address] [place] [address] Dr. Neisha Araiza MCV (RBC) [Entitic vol] 80.3 fL Critically low 81.0-99.0 [facility] Comment on above: Performed By: #### C BC #### [facility] [address] [place] [address] Dr. Neihsa Araiza MONO # 0.5 103/ul Normal 0.3-0.8 [facility] Comment on above: Performed By: #### C BC #### [facility] [address] [place] [address] Dr. Neisha Araiza Monocytes/100 WBC (Bld) 5.7 % Normal 1.7-12.0 [facility] Comment on above: Performed By: #### C BC #### [facility] [address] [place] [address] Dr. Neisha Araiza NEUT # 7.0 103/ul Critically high 1.4-6.5 [facility] Comment on above: Performed By: #### C BC #### [facility] [address] [address] [address] Neisha Araiza Neutrophils/100 WBC (Bld) 82.3 % Critically high 43.0-75.0 [facility] Comment on above: Performed By: #### C BC #### [facility] [address] [address] [address] Neisha Araiza Platelet mean volume (Bld) [Entitic vol] 9.4 fL Critically low 9.5-13.5 [facility] Comment on above: Performed By: #### C BC #### [facility] [address] [address] [address] Neisha Araiza PLT 271 103/ul Normal 150-450 [facility] Comment on above: Performed By: #### C BC #### [facility] [address] [address] [address] Neisha Araiza RBC 5.39 106/ul Normal 4.20-5.40 [facility] Comment on above: Performed By: #### C BC #### [facility] [address] [address] [address] Neisha Araiza WBC 8.5 103/ul Normal 4.0-11.0 [facility] Comment on above: Performed By: #### C BC #### [facility] [address] [address] ABD/PELVIS WO CONon [...] MATTHEW SILVER Date: 2021-12-10 14:48 Normal [facility] CULTURE URINEon 12-10-2021 CULTURE URINE Culture Observations: GREATER THAN TWO ORGANISMS PRESENT. PLEASE RESUBMIT CLEAN CATCH MID-STREAM URINE IF CLINICALLY INDICATED. Normal [facility] Comment on above: Performed By: #### A CETSIENA #### [facility] [address] [place] [address] Dr. Neisha Araiza [facility] SARS-CoV-2 (COVID-19) RNA TIM+probe Ql (Unsp spec) Not detected Normal NOT DETECTED [facility] Comment on above: Result Comment: When [...] for this test is supported by the [place] of [employer] and Human Service's declaration that [...] By: #### L AURELIANO DRIVER, CMP #### [facility] [address] [address] [address] Neisha Araiza DRUG SCREEN RAPID (URINE)on 12-10-2021 AMP Negative Normal NEGATIVE [facility] Comment on above: Performed By: #### A CETON #### [facility] [address] [address] [address] Neisha Araiza BAR Negative Normal NEGATIVE [facility] Comment on above: Performed By: #### A CETON #### [facility] [address] [address] [address] Neisha Araiza BUP Negative Normal NEGATIVE [facility] Comment on above: Performed By: #### A CETON #### [facility] [address] [place] [address] Dr. Neisha Araiza BZO Negative Normal NEGATIVE [facility] Comment on above: Performed By: #### A CETON #### [facility] [address] [place] [address] Dr. Neisha Araiza VIVEK Negative Normal NEGATIVE [facility] Comment on above: Performed By: #### A CETON #### [facility] [address] [address] [address] Neisha Araiza CUT-OFFS SEE BELOW Normal [facility] Comment on above: Result Comment: AMP [...] ng/mL Performed By: #### A CETON #### [facility] [address] [place] [address] Dr. Neisha Araiza DRUG CUT HEADER DRUG CLASS TEST SYSTEM CUT-OFF CONCENTRATIONS ARE FOLLOWS: Normal [facility] Comment on above: Performed By: #### A CETON #### [facility] [address] [address] [address] Neisha Araiza mAMP Negative Normal NEGATIVE [facility] Comment on above: Performed By: #### A CETON #### [facility] [address] [address] [address] Neisha Araiza MTD Negative Normal NEGATIVE [facility] Comment on above: Performed By: #### A CETON #### [facility] [address] [address] [address] Neisha Araiza OPI Negative Normal NEGATIVE [facility] Comment on above: Performed By: #### A CETON #### [facility] [address] [place] [address] Dr. Neisha Araiza OXY Negative Normal NEGATIVE [facility] Comment on above: Performed By: #### A CETON #### [facility] [address] [place] [address] Dr. Neisha Araiza PCP Negative Normal NEGATIVE [facility] Comment on above: Performed By: #### A CETON #### [facility] [address] [place] [address] Dr. Neisha Araiza PPX Negative Normal NEGATIVE [facility] Comment on above: Performed By: #### A CETON #### [facility] [address] [place] [address] Dr. Neisha Araiza TCA Negative Normal NEGATIVE [facility] Comment on above: Performed By: #### A CETON #### [facility] [address] [place] [address] Dr. Neisha Araiza THC Negative Normal NEGATIVE [facility] Comment on above: Performed By: #### A CETON #### [facility] [address] [address] [address] Neisha Araiza ER URINE PROFILEon 2 Bilirubin Ql (U) Negative Normal NEGATIVE [facility] Comment on above: Performed By: #### E RUR, DRUGRPD #### [facility] [address] [place] [address] Dr. Neisha Araiza Clarity (U) CLEAR Normal CLEAR [facility] Comment on above: Performed By: #### E RUR, DRUGRPD #### [facility] [address] [place] [address] Dr. Neisha Araiza Color (U) YELLOW Normal YELLOW [facility] Comment on above: Performed By: #### E RUR, DRUGRPD #### [facility] [address] [place] [address] Dr. Neisha FERNANDEZAHMagnus A micrscopic examination will be performed if indicated. Normal [facility] Comment on above: Performed By: #### E RUR, DRUGRPD #### [facility] [address] [place] [address] Dr. Neisha Araiza Glucose Ql (U) 250 mg/dl Abnormal NEGATIVE [facility] Comment on above: Performed By: #### E RUR, DRUGRPD #### [facility] [address] [place] [address] Dr. Neisha Araiza Hemoglobin Ql (U) Negative Normal NEGATIVE [facility] Comment on above: Performed By: #### E RUR, DRUGRPD #### [facility] [address] [place] [address] Dr. Neisha Araiza Ketones Ql (U) 15 mg/dl Abnormal NEGATIVE [facility] Comment on above: Performed By: #### E RUR, DRUGRPD #### [facility] [address] [place] [address] Dr. Neisha Araiza LEUKOCYTES Negative Normal NEGATIVE [facility] Comment on above: Performed By: #### E RUR, DRUGRPD #### [facility] [address] [place] [address] Dr. Neisha Araiza Nitrite Ql (U) Negative Normal NEGATIVE [facility] Comment on above: Performed By: #### E RUR, DRUGRPD #### [facility] [address] [place] [address] Dr. Neisha Araiza pH (U) 6.0 [pH] Normal 5-9 [facility] Comment on above: Performed By: #### E RUR, DRUGRPD #### [facility] [address] [place] [address] Dr. Neisha Araiza SPEC GRAVITY 1.020 Normal 1.005-<=1.025 [facility] Comment on above: Performed By: #### Tiffany HAILE DRUGRPD #### [facility] [address] [place] [address] Dr. Neisha Araiza UA PROTEIN Negative Normal NEGATIVE/ TRACE [facility] Comment on above: Performed By: #### Tiffany HAILE DRUGRPD #### [facility] [address] [place] [address] Dr. Neisha Araiza UR MICRO IND NOT INDICATED Normal [facility] Comment on above: Performed By: #### Tiffany HAILE DRUGRPD #### [facility] [address] [place] [address] Dr. Neisha Araiza Urobilinogen Qn (U) 0.2 {Ankit'U}/dL Normal 0.2 - 1. 0 [facility] Comment on above: Performed By: #### Tiffany HAILE DRUGRPD #### [facility] [address] [place] [address] Dr. Neisha Araiza H PYLORI ANTIBODY IGGon 11-30 H. PYLORI IGG ABS 0.29 Index Value Normal 0.00-0.79 [facility] Comment on above: Result Comment: Nega tive <0.80 Equivocal 0.80 - 0.89 Positive >0.89 Performed By: #### C BC #### [facility] [address] [place] [address] Dr. Neisha Araiza INFLUENZA A AND B AGon 12-10 INFLUANEGH SEE BELOW Normal [facility] Comment on above: Result Comment: Nega tive for Flu A protein angiten. Infection due to Flu A cannot be ruled out. Flu A angiten in the sample may be below the detection limit of the test. Performed By: #### C BC #### [facility] [address] [place] [address] Dr. Neisha Araiza INFLUBNEGH SEE BELOW Normal [facility] Comment on above: Result Comment: Nega tive for Flu B protein antigen. Infection due to Flu B cannot be ruled out. Flu B antigen in the sample may be below the detection limit of the test. Performed By: #### C BC #### [facility] [address] [place] [address] Dr. Neisha Araiza INFLUENZA A AG Negative Normal NEGATIVE SEE COMMENT [facility] Comment on above: Performed By: #### C BC #### [facility] [address] [place] [address] Dr. Neisha Araiza INFLUENZA B AG Negative Normal NEGATIVE SEE COMMENT [facility] Comment on above: Performed By: #### C BC #### [facility] [address] [place] [address] Dr. Neisha Araiza INTERNAL CONTROLS Within Normal Limits Normal Wi thin Normal Limits [facility] Comment on above: Performed By: #### C BC #### [facility] [address] [place] [address] Dr. Neisha Araiza LACTATE/LACTIC ACIDon 2021 Lactate [Moles/Vol] 0.9 mmol/L Normal 0.4-1.9 [facility] Comment on above: Performed By: #### C BC #### [facility] [address] [place] [address] Dr. Neisha Araiza Lactate [Moles/Vol] 0.8 mmol/L Normal 0.4-1.9 [facility] Comment on above: Performed By: #### C BC #### [facility] [address] [place] [address] Dr. Neisha Araiza LIPASEon 12-10-2021 Lipase [Catalytic activity/Vol] 146.0 U/L Normal 73.0-393.0 [facility] Comment on above: Performed By: #### L IPA, AURELIANO, CMP #### [facility] [address] [place] [address] Dr. Neisha Araiza POINT OF CARE GLUCOSEon 11-30 Glucose [Mass/Vol] 222 mg/dL Critically high 74-106 [facility] Comment on above: Performed By: #### C BC #### [facility] [address] [place] [address] Dr. Neisha Araiza PREG HCG QUALon 12-10-2021 , QUAL Negative Normal NEGATIVE [facility] Comment on above: Performed By: #### L AURELIANO DRIVER, CMP #### [facility] [address] [address] [address] Neisha Araiza PROF 14(COMP METB)on 022 Albumin [Mass/Vol] 3.7 g/dL Normal 3.4-5.0 [facility] Comment on above: Performed By: #### L NEISHA AURELIANO, CMP #### [facility] [address] [place] [address] Dr. Neisha Araiza Albumin/Globulin [Mass ratio] 0.9 {ratio} Normal [facility] Comment on above: Performed By: #### L AURELIANO DRIVER, CMP #### [facility] [address] [place] [address] Dr. Neisha Araiza ALP [Catalytic activity/Vol] 118 U/L Critically high 46-116 [facility] Comment on above: Performed By: #### L NEISHA AURELIANO, CMP #### [facility] [address] [place] [address] Dr. Neisha Araiza ALT [Catalytic activity/Vol] 36 U/L Normal 14-59 [facility] Comment on above: Performed By: #### L AURELIANO DRIVER, CMP #### [facility] [address] [place] [address] Dr. Neisha Araiza Anion gap [Moles/Vol] 17.8 mmol/L Normal [facility] Comment on above: Performed By: #### L NEISHA AURELIANO, CMP #### [facility] [address] [place] [address] Dr. Neisha Araiza AST [Catalytic activity/Vol] 22 U/L Normal 15-37 [facility] Comment on above: Performed By: #### L NEISHA AURELIANO, CMP #### [facility] [address] [place] [address] Dr. Neisha Araiza Bilirubin [Mass/Vol] 0.9 mg/dL Normal 0.2-1.0 [facility] Comment on above: Performed By: #### L NEISHA AURELIANO, CMP #### [facility] [address] [address] [address] Neisha Araiza Calcium [Mass/Vol] 8.8 mg/dL Normal 8.5-10.1 [facility] Comment on above: Performed By: #### L AURELIANO DRIVER, CMP #### [facility] [address] [address] [address] Neisha Araiza Chloride [Moles/Vol] 99 mmol/L Normal 98-107 [facility] Comment on above: Performed By: #### L AURELIANO DRIVER, CMP #### [facility] [address] [address] [address] Neisha Araiza CO2 [Moles/Vol] 19.6 mmol/L Critically low 21.0-32.0 [facility] Comment on above: Performed By: #### L AURELIANO DRIVER, CMP #### [facility] [address] [place] [address] Dr. Neisha Araiza Creatinine [Mass/Vol] 0.52 mg/dL Critically low 0.55-1.02 [facility] Comment on above: Performed By: #### L AURELIANO DRIVER, CMP #### [facility] [address] [address] [address] Neisha Araiza EGFR-AF SPANISH >60 Normal >=60 [facility] Comment on above: Performed By: #### L AURELIANO DRIVER, CMP #### [facility] [address] [place] [address] Dr. Neisha Araiza EGFR-NON AF SPANISH >60 Normal >=60 [facility] Comment on above: Performed By: #### L AURELIANO DRIVER, CMP #### [facility] [address] [address] [address] Neisha Araiza Globulin (S) [Mass/Vol] 4.2 g/dL Normal [facility] Comment on above: Performed By: #### L AURELIANO DRIVER, CMP #### [facility] [address] [place] [address] Dr. Neisha Araiza Glucose [Mass/Vol] 172 mg/dL Critically high 74-106 [facility] Comment on above: Performed By: #### L AURELIANO DRIVER, CMP #### [facility] [address] [place] [address] Dr. Neisha Araiza Potassium [Moles/Vol] 3.4 mmol/L Critically low 3.5-5.1 [facility] Comment on above: Performed By: #### L AURELIANO DRIVER, CMP #### [facility] [address] [place] [address] Dr. Neisha Araiza Protein [Mass/Vol] 7.9 g/dL Normal 6.4-8.2 [facility] Comment on above: Performed By: #### L AURELIANO DRIVER, CMP #### [facility] [address] [place] [address] Dr. Neisha Araiza Sodium [Moles/Vol] 133 mmol/L Critically low 136-145 [facility] Comment on above: Performed By: #### L AURELIANO DRIVER, CMP #### [facility] [address] [place] [address] Dr. Neisha Araiza Urea nitrogen [Mass/Vol] 11.0 mg/dL Normal 7.0-18.0 [facility] Comment on above: Performed By: #### L AURELIANO DRIVER, CMP #### [facility] [address] [place] [address] Dr. Neisha Araiza Urea nitrogen/Creatinine [Mass ratio] 21.2 mg/mg Normal [facility] Comment on above: Performed By: #### L AURELIANO DRIVER, CMP #### [facility] [address] [place] [address] Dr. Neisha Araiza TSHon 12-10-2021 TSH 0.594 uIU/mL Normal 0.358-3.740 [facility] Comment on above: Performed By: #### L AURELIANO DRIVER, CMP #### [facility] [address] [place] [address] Dr. Neisha Araiza TSH RANGE SEE BELOW Normal [facility] Comment on above: Result Comment: <0.3 4 UIU/ml HYPERTHYROID 0.34-5.60 UIU/ml EUTHYROID >5.60 UIU/ml HYPOTHYROID Performed By: #### L AURELIANO DRIVER, CMP #### [facility] [address] [place] [address] Dr. Neisha Araiza CBC AUTO DIFFon 12-09-2021 BASO # 0.0 103/ul Normal 0.0-0.1 [facility] Comment on above: Performed By: #### L IPA, AURELIANO, CMP #### [facility] [address] [place] [address] Dr. Neisha Araiza Basophils/100 WBC (Bld) 0.4 % Normal 0.2-2.0 [facility] Comment on above: Performed By: #### L IPA, AURELIANO, CMP #### [facility] [address] [place] [address] Dr. Neisha Araiza EO # 0.0 103/ul Normal 0.0-0.7 [facility] Comment on above: Performed By: #### L IPA, AURELIANO, CMP #### [facility] [address] [place] [address] Dr. Neisha Araiza Eosinophils/100 WBC (Bld) 0.1 % Critically low 0.9-7.0 [facility] Comment on above: Performed By: #### L IPA AURELIANO, CMP #### [facility] [address] [place] [address] Dr. Neisha Araiza Erythrocyte distribution width (RBC) [Ratio] 12.8 % Normal 11.0-15.0 [facility] Comment on above: Performed By: #### L IPA AURELIANO, CMP #### [facility] [address] [place] [address] Dr. Neisha Araiza Hematocrit (Bld) [Volume fraction] 41.1 % Normal 36.0-48.0 [facility] Comment on above: Performed By: #### L IPA, AURELIANO, CMP #### [facility] [address] [place] [address] Dr. Neisha Araiza Hemoglobin (Bld) [Mass/Vol] 13.8 g/dL Normal 12.0-16.0 [facility] Comment on above: Performed By: #### L IPA, AURELIANO, CMP #### [facility] [address] [place] [address] Dr. Neisha Araiza IG # 0.05 10e3/ul Critically high 0.00-0.03 [facility] Comment on above: Performed By: #### L AURELIANO DRIVER, CMP #### [facility] [address] [place] [address] Dr. Neisha Araiza IG % 0.5 % Normal 0.0-0.5 [facility] Comment on above: Performed By: #### L AURELIANO DRIVER, CMP #### [facility] [address] [place] [address] Dr. Neisha Araiza LYMPH # 2.1 103/ul Normal 1.2-3.8 [facility] Comment on above: Performed By: #### L AURELIANO DRIVER, CMP #### [facility] [address] [place] [address] Dr. Neisha Araiza Lymphocytes/100 WBC (Bld) 22.8 % Normal 20.5-60.0 [facility] Comment on above: Performed By: #### L AURELIANO DRIVER, CMP #### [facility] [address] [place] [address] Dr. Neisha Araiza MANUAL DIFF REQ NO Normal [facility] Comment on above: Performed By: #### L AURELIANO DRIVER, CMP #### [facility] [address] [place] [address] Dr. Neisha Araiza MCH (RBC) [Entitic mass] 28.3 pg Normal 26.7-34.0 [facility] Comment on above: Performed By: #### L AURELIANO DRIVER, CMP #### [facility] [address] [place] [address] Dr. Neisha Araiza MCHC (RBC) [Mass/Vol] 33.6 g/dL Normal 29.9-35.2 [facility] Comment on above: Performed By: #### L AURELIANO DRIVER, CMP #### [facility] [address] [place] [address] Dr. Neisha Araiza MCV (RBC) [Entitic vol] 84.4 fL Normal 81.0-99.0 [facility] Comment on above: Performed By: #### L AURELIANO DRIVER, CMP #### [facility] [address] [place] [address] Dr. Neisha Araiza MONO # 0.6 103/ul Normal 0.3-0.8 [facility] Comment on above: Performed By: #### L AURELIANO DRIVER, CMP #### [facility] [address] [place] [address] Dr. Neisha Araiza Monocytes/100 WBC (Bld) 6.0 % Normal 1.7-12.0 [facility] Comment on above: Performed By: #### L AURELIANO DRIVER, CMP #### [facility] [address] [place] [address] Dr. Neisha Araiza NEUT # 6.4 103/ul Normal 1.4-6.5 [facility] Comment on above: Performed By: #### L AURELIANO DRIVER, CMP #### [facility] [address] [place] [address] Dr. Neisha Araiza Neutrophils/100 WBC (Bld) 70.2 % Normal 43.0-75.0 [facility] Comment on above: Performed By: #### L AURELIANO DRIVER, CMP #### [facility] [address] [place] [address] Dr. Neisha Araiza Platelet mean volume (Bld) [Entitic vol] 9.8 fL Normal 9.5-13.5 [facility] Comment on above: Performed By: #### L AURELIANO DRIVER, CMP #### [facility] [address] [place] [address] Dr. Neisha Araiza PLT 258 103/ul Normal 150-450 [facility] Comment on above: Performed By: #### L AURELIANO DRIVER, CMP #### [facility] [address] [place] [address] Dr. Neisha Araiza RBC 4.87 106/ul Normal 4.20-5.40 [facility] Comment on above: Performed By: #### L AURELIANO DRIVER, CMP #### [facility] [address] [place] [address] Dr. Neisha Araiza WBC 9.1 103/ul Normal 4.0-11.0 [facility] Comment on above: Performed By: #### L AURELIANO DRIVER, CMP #### [facility] [address] [address] [address] Neisha Araiza POINT OF CARE GLUCOSEon 11-30 Glucose [Mass/Vol] 222 mg/dL Critically high 74-106 [facility] Comment on above: Performed By: #### C BC #### [facility] [address] [place] [address] Dr. Neisha Araiza Glucose [Mass/Vol] 225 mg/dL Critically high 74-106 [facility] Comment on above: Performed By: #### C BC #### [facility] [address] [place] [address] Dr. Neisha Araiza PROF 14(COMP METB)on 022 Albumin [Mass/Vol] 3.1 g/dL Critically low 3.4-5.0 [facility] Comment on above: Performed By: #### C BC #### [facility] [address] [place] [address] Dr. Neisha Araiza Albumin/Globulin [Mass ratio] 0.9 {ratio} Normal [facility] Comment on above: Performed By: #### C BC #### [facility] [address] [place] [address] Dr. Neisha Araiza ALP [Catalytic activity/Vol] 99 U/L Normal 46-116 [facility] Comment on above: Performed By: #### C BC #### [facility] [address] [place] [address] Dr. Neisha Araiza ALT [Catalytic activity/Vol] 28 U/L Normal 14-59 [facility] Comment on above: Performed By: #### C BC #### [facility] [address] [place] [address] Dr. Neisha Araiza Anion gap [Moles/Vol] 15.0 mmol/L Normal [facility] Comment on above: Performed By: #### C BC #### [facility] [address] [place] [address] Dr. Neisha Araiza AST [Catalytic activity/Vol] 12 U/L Critically low 15-37 [facility] Comment on above: Performed By: #### C BC #### [facility] [address] [address] [address] Neisha Araiza Bilirubin [Mass/Vol] 1.3 mg/dL Critically high 0.2-1.0 [facility] Comment on above: Performed By: #### C BC #### [facility] [address] [address] [address] Neisha Araiza Calcium [Mass/Vol] 7.5 mg/dL Critically low 8.5-10.1 [facility] Comment on above: Performed By: #### C BC #### [facility] [address] [address] [address] Neisha Araiza Chloride [Moles/Vol] 101 mmol/L Normal 98-107 [facility] Comment on above: Performed By: #### C BC #### [facility] [address] [place] [address] Dr. Neisha Araiza CO2 [Moles/Vol] 14.9 mmol/L Critically low 21.0-32.0 [facility] Comment on above: Performed By: #### C BC #### [facility] [address] [address] [address] Neisha Araiza Creatinine [Mass/Vol] 0.52 mg/dL Critically low 0.55-1.02 [facility] Comment on above: Performed By: #### C BC #### [facility] [address] [place] [address] Dr. Neisha Araiza EGFR-AF SPANISH >60 Normal >=60 [facility] Comment on above: Performed By: #### C BC #### [facility] [address] [place] [address] Dr. Neisha Araiza EGFR-NON AF SPANISH >60 Normal >=60 [facility] Comment on above: Performed By: #### C BC #### [facility] [address] [place] [address] Dr. Neisha Araiza Globulin (S) [Mass/Vol] 3.6 g/dL Normal [facility] Comment on above: Performed By: #### C BC #### [facility] [address] [place] [address] Dr. Neisha Araiza Glucose [Mass/Vol] 232 mg/dL Critically high 74-106 [facility] Comment on above: Performed By: #### C BC #### [facility] [address] [address] [address] Neisha Araiza Potassium [Moles/Vol] 3.9 mmol/L Normal 3.5-5.1 [facility] Comment on above: Performed By: #### C BC #### [facility] [address] [address] [address] Neisha Araiza Protein [Mass/Vol] 6.7 g/dL Normal 6.4-8.2 [facility] Comment on above: Performed By: #### C BC #### [facility] [address] [place] [address] Dr. Neisha Araiza Sodium [Moles/Vol] 127 mmol/L Critically low 136-145 [facility] Comment on above: Performed By: #### C BC #### [facility] [address] [place] [address] Dr. Neisha Araiza Urea nitrogen [Mass/Vol] 9.0 mg/dL Normal 7.0-18.0 [facility] Comment on above: Performed By: #### C BC #### [facility] [address] [place] [address] Dr. Neisha Araiza Urea nitrogen/Creatinine [Mass ratio] 17.3 mg/mg Normal [facility] Comment on above: Performed By: #### C BC #### [facility] [address] [place] [address] Dr. Neisha Araiza UA RANDOM W/MICROSCOPICon BACTERIA NONE SEEN Normal NONE SEEN [facility] Comment on above: Performed By: #### U AMIC #### [facility] [address] [place] [address] Dr. Neisha Araiza Bilirubin Ql (U) Negative Normal NEGATIVE [facility] Comment on above: Performed By: #### U AMIC #### [facility] [address] [place] [address] Dr. Neisha Araiza CAST NONE SEEN Normal NONE SEEN [facility] Comment on above: Performed By: #### U AMIC #### [facility] [address] [address] [address] Neisha Araiza Clarity (U) CLEAR Normal CLEAR [facility] Comment on above: Performed By: #### U AMIC #### [facility] [address] [address] [address] Neisha Araiza Color (U) LT. YELLOW Normal YELLOW [facility] Comment on above: Performed By: #### U AMIC #### [facility] [address] [address] [address] Neisha Araiza Crystals LM Nom (Urine sed) NONE SEEN Normal NONE SEEN [facility] Comment on above: Performed By: #### U AMIC #### [facility] [address] [place] [address] Dr. Neisha Araiza Epithelial cells LM Ql (Urine sed) FEW Abnormal NONE SEEN /RARE [facility] Comment on above: Performed By: #### U AMIC #### [facility] [address] [place] [address] Dr. Neisha Araiza Glucose Ql (U) 500 mg/dl Abnormal NEGATIVE [facility] Comment on above: Performed By: #### U AMIC #### [facility] [address] [address] [address] Neisha Araiza Hemoglobin Ql (U) Negative Normal NEGATIVE [facility] Comment on above: Performed By: #### U AMIC #### [facility] [address] [address] [address] Neisha Araiza Ketones Ql (U) 80 mg/dl Abnormal NEGATIVE [facility] Comment on above: Performed By: #### U AMIC #### [facility] [address] [address] [address] Neisha Araiza LEUKOCYTES Negative Normal NEGATIVE [facility] Comment on above: Performed By: #### U AMIC #### [facility] [address] [place] [address] Dr. Neisha Araiza MUCOUS NONE SEEN Normal NONE SEEN [facility] Comment on above: Performed By: #### U AMIC #### [facility] [address] [address] [address] Neisha Araiza Nitrite Ql (U) Negative Normal NEGATIVE [facility] Comment on above: Performed By: #### U AMIC #### [facility] [address] [place] [address] Dr. Neisha Araiza pH (U) 6.0 [pH] Normal 5-9 [facility] Comment on above: Performed By: #### U AMIC #### [facility] [address] [address] [address] Neisha Araiza RBC NONE SEEN Abnormal 0-2 [facility] Comment on above: Performed By: #### U AMIC #### [facility] [address] [place] [address] Dr. Neisha Araiza SPEC GRAVITY 1.030 Abnormal 1.005-<=1.025 [facility] Comment on above: Performed By: #### U AMIC #### [facility] [address] [place] [address] Dr. Neisha Araiza UA PROTEIN TRACE Normal NEGATIVE/ TRACE [facility] Comment on above: Performed By: #### U AMIC #### [facility] [address] [place] [address] Dr. Neisha Araiza Urobilinogen Qn (U) 0.2 {Ankit'U}/dL Normal 0.2 - 1. 0 [facility] Comment on above: Performed By: #### U AMIC #### [facility] [address] [place] [address] Dr. Neisha Araiza WBC 0-2 Abnormal NONE SEEN [facility] Comment on above: Performed By: #### U AMIC #### [facility] [address] [place] [address] Dr. Neisha Araiza AMYLASEon 12-08-2021 Amylase [Catalytic activity/Vol] 31 U/L Normal 25-115 [facility] Comment on above: Performed By: #### L IPA, AURELIANO, CMP #### [facility] [address] [place] [address] Dr. Neisha Araiza CBC AUTO DIFFon 12-08-2021 BASO # 0.0 103/ul Normal 0.0-0.1 [facility] Comment on above: Performed By: #### C BC #### [facility] [address] [place] [address] Dr. Neisha Araiza Basophils/100 WBC (Bld) 0.4 % Normal 0.2-2.0 [facility] Comment on above: Performed By: #### C BC #### [facility] [address] [place] [address] Dr. Neisha Araiza EO # 0.0 103/ul Normal 0.0-0.7 [facility] Comment on above: Performed By: #### C BC #### [facility] [address] [place] [address] Dr. Neisha Araiza Eosinophils/100 WBC (Bld) 0.0 % Critically low 0.9-7.0 [facility] Comment on above: Performed By: #### C BC #### [facility] [address] [place] [address] Dr. Neisha Araiza Erythrocyte distribution width (RBC) [Ratio] 12.9 % Normal 11.0-15.0 [facility] Comment on above: Performed By: #### C BC #### [facility] [address] [place] [address] Dr. Neisha Araiza Hematocrit (Bld) [Volume fraction] 43.8 % Normal 36.0-48.0 [facility] Comment on above: Performed By: #### C BC #### [facility] [address] [place] [address] Dr. Neisha Araiza Hemoglobin (Bld) [Mass/Vol] 14.7 g/dL Normal 12.0-16.0 [facility] Comment on above: Performed By: #### C BC #### [facility] [address] [place] [address] Dr. Neisha Araiza IG # 0.06 10e3/ul Critically high 0.00-0.03 [facility] Comment on above: Performed By: #### C BC #### [facility] [address] [place] [address] Dr. Neisha Araiza IG % 0.6 % Critically high 0.0-0.5 [facility] Comment on above: Performed By: #### C BC #### [facility] [address] [place] [address] Dr. Neisha Araiza LYMPH # 1.4 103/ul Normal 1.2-3.8 [facility] Comment on above: Performed By: #### C BC #### [facility] [address] [place] [address] Dr. Neisha Araiza Lymphocytes/100 WBC (Bld) 12.7 % Critically low 20.5-60.0 [facility] Comment on above: Performed By: #### C BC #### [facility] [address] [place] [address] Dr. Neisha Araiza MANUAL DIFF REQ NO Normal [facility] Comment on above: Performed By: #### C BC #### [facility] [address] [place] [address] Dr. Neisha Araiza MCH (RBC) [Entitic mass] 28.2 pg Normal 26.7-34.0 [facility] Comment on above: Performed By: #### C BC #### [facility] [address] [place] [address] Dr. Neisha Araiza MCHC (RBC) [Mass/Vol] 33.6 g/dL Normal 29.9-35.2 [facility] Comment on above: Performed By: #### C BC #### [facility] [address] [place] [address] Dr. Neisha Araiza MCV (RBC) [Entitic vol] 84.1 fL Normal 81.0-99.0 [facility] Comment on above: Performed By: #### C BC #### [facility] [address] [place] [address] Dr. Neisha Araiza MONO # 0.5 103/ul Normal 0.3-0.8 [facility] Comment on above: Performed By: #### C BC #### [facility] [address] [place] [address] Dr. Neisha Araiza Monocytes/100 WBC (Bld) 4.7 % Normal 1.7-12.0 [facility] Comment on above: Performed By: #### C BC #### [facility] [address] [place] [address] Dr. Neisha Araiza NEUT # 8.8 103/ul Critically high 1.4-6.5 [facility] Comment on above: Performed By: #### C BC #### [facility] [address] [place] [address] Dr. Neisha Araiza Neutrophils/100 WBC (Bld) 81.6 % Critically high 43.0-75.0 [facility] Comment on above: Performed By: #### C BC #### [facility] [address] [place] [address] Dr. Neisha Araiza Platelet mean volume (Bld) [Entitic vol] 10.0 fL Normal 9.5-13.5 [facility] Comment on above: Performed By: #### C BC #### [facility] [address] [place] [address] Dr. Neisha Araiza PLT 293 103/ul Normal 150-450 [facility] Comment on above: Performed By: #### C BC #### [facility] [address] [place] [address] Dr. Neisha Araiza RBC 5.21 106/ul Normal 4.20-5.40 [facility] Comment on above: Performed By: #### C BC #### [facility] [address] [place] [address] Dr. Neisha Araiza WBC 10.7 103/ul Normal 4.0-11.0 [facility] Comment on above: Performed By: #### C BC #### [facility] [address] [place] [address] Dr. Neisha Araiza Covid-19 PCR ([facility])on SARS-CoV-2 (COVID-19) RNA TIM+probe Ql (Unsp spec) Not detected Normal NOT DETECTED [facility] Comment on above: Result Comment: When [...] for this test is supported by the Commercial Litigation Attorney of Health and Human Service's declaration that [...] used). Performed By: #### C BC #### [facility] [address] [place] [address] Dr. Neisha Araiza LACTATE/LACTIC ACIDon 2021 Lactate [Moles/Vol] 1.5 mmol/L Normal 0.4-1.9 [facility] Comment on above: Performed By: #### C BC #### [facility] [address] [place] [address] Dr. Neisha Araiza LIPASEon 12-08-2021 Lipase [Catalytic activity/Vol] 149.0 U/L Normal 73.0-393.0 [facility] Comment on above: Performed By: #### L AURELIANO DRIVER, CMP #### [facility] [address] [place] [address] Dr. Neisha Araiza POINT OF CARE GLUCOSEon Glucose [Mass/Vol] 282 mg/dL Critically high 74-106 [facility] Comment on above: Performed By: #### A CETON #### [facility] [address] [place] [address] Dr. Neisha Araiza PROF 14(COMP METB)on 022 Albumin [Mass/Vol] 3.6 g/dL Normal 3.4-5.0 [facility] Comment on above: Performed By: #### L AURELIANO DRIVER, CMP #### [facility] [address] [place] [address] Dr. Neisha Araiza Albumin/Globulin [Mass ratio] 0.9 {ratio} Normal [facility] Comment on above: Performed By: #### L IPA, AURELIANO, CMP #### [facility] [address] [place] [address] Dr. Neisha Araiza ALP [Catalytic activity/Vol] 105 U/L Normal 46-116 [facility] Comment on above: Performed By: #### L IPA, AURELIANO, CMP #### [facility] [address] [place] [address] Dr. Neisha Araiza ALT [Catalytic activity/Vol] 32 U/L Normal 14-59 [facility] Comment on above: Performed By: #### L IPA AURELIANO, CMP #### [facility] [address] [place] [address] Dr. Neisha Araiza Anion gap [Moles/Vol] 23.2 mmol/L Normal [facility] Comment on above: Performed By: #### L IPA AURELIANO, CMP #### [facility] [address] [place] [address] Dr. Neisha Araiza AST [Catalytic activity/Vol] 15 U/L Normal 15-37 [facility] Comment on above: Performed By: #### L IPA AURELIANO, CMP #### [facility] [address] [place] [address] Dr. Neisha Araiza Bilirubin [Mass/Vol] 1.3 mg/dL Critically high 0.2-1.0 [facility] Comment on above: Performed By: #### L IPA AURELIANO, CMP #### [facility] [address] [place] [address] Dr. Neisha Araiza Calcium [Mass/Vol] 8.0 mg/dL Critically low 8.5-10.1 [facility] Comment on above: Performed By: #### L IPA AURELIANO, CMP #### [facility] [address] [place] [address] Dr. Neisha Araiza Chloride [Moles/Vol] 96 mmol/L Critically low 98-107 [facility] Comment on above: Performed By: #### L IPA AURELIANO, CMP #### [facility] [address] [place] [address] Dr. Neisha Araiza CO2 [Moles/Vol] 14.8 mmol/L Critically low 21.0-32.0 [facility] Comment on above: Performed By: #### L AURELIANO DRIVER, CMP #### [facility] [address] [address] [address] Neisha Araiza Creatinine [Mass/Vol] 0.62 mg/dL Normal 0.55-1.02 [facility] Comment on above: Performed By: #### L AURELIANO DRIVER, CMP #### [facility] [address] [address] [address] Neisha Araiza EGFR-AF SPANISH >60 Normal >=60 [facility] Comment on above: Performed By: #### L AURELIANO DRIVER, CMP #### [facility] [address] [address] [address] Neisha Araiza EGFR-NON AF SPANISH >60 Normal >=60 [facility] Comment on above: Performed By: #### L AURELIANO DRIVER, CMP #### [facility] [address] [address] [address] Neisha Araiza Globulin (S) [Mass/Vol] 4.2 g/dL Normal [facility] Comment on above: Performed By: #### L AURELIANO DRIVER, CMP #### [facility] [address] [address] [address] Neisha Araiza Glucose [Mass/Vol] 285 mg/dL Critically high 74-106 [facility] Comment on above: Performed By: #### L AURELIANO DRIVER, CMP #### [facility] [address] [address] [address] Neisha Araiza Potassium [Moles/Vol] 4.0 mmol/L Normal 3.5-5.1 [facility] Comment on above: Performed By: #### L AURELIANO DRIVER, CMP #### [facility] [address] [address] [address] Neisha Araiza Protein [Mass/Vol] 7.8 g/dL Normal 6.4-8.2 [facility] Comment on above: Performed By: #### L AURELIANO DRIVER, CMP #### [facility] [address] [address] [address] Neisha Araiza Sodium [Moles/Vol] 130 mmol/L Critically low 136-145 [facility] Comment on above: Performed By: #### L AURELIANO DRIVER, CMP #### [facility] [address] [place] [address] Dr. Neisha Araiza Urea nitrogen [Mass/Vol] 12.0 mg/dL Normal 7.0-18.0 [facility] Comment on above: Performed By: #### L AURELIANO DRIVER, CMP #### [facility] [address] [place] [address] Dr. Neisha Araiza Urea nitrogen/Creatinine [Mass ratio] 19.4 mg/mg Normal [facility] Comment on above: Performed By: #### L AURELIANO DRIVER, CMP #### [facility] [address] [place] [address] Dr. Neisha Araiza AMYLASEon 12-07-2021 Amylase [Catalytic activity/Vol] 20 U/L Critically low 25-115 [facility] Comment on above: Performed By: #### A CETON #### [facility] [address] [place] [address] Dr. Neisha Araiza BILIRUBIN CONJUGATED (DIRECT )on 12-07-2021 BILI, CONJUGATED 0.2 mg/dL Normal 0.0-0.2 [facility] Comment on above: Performed By: #### C BC #### [facility] [address] [place] [address] Dr. Neisha Araiza CBC AUTO DIFFon 12-07-2021 BASO # 0.0 103/ul Normal 0.0-0.1 [facility] Comment on above: Performed By: #### L AURELIANO DRIVER, CMP #### [facility] [address] [place] [address] Dr. Neisha Araiza Basophils/100 WBC (Bld) 0.3 % Normal 0.2-2.0 [facility] Comment on above: Performed By: #### L AURELIANO DRIVER, CMP #### [facility] [address] [place] [address] Dr. eNisha Araiza EO # 0.0 103/ul Normal 0.0-0.7 [facility] Comment on above: Performed By: #### L AURELIANO DRIVER, CMP #### [facility] [address] [place] [address] Dr. Neisha Araiza Eosinophils/100 WBC (Bld) 0.0 % Critically low 0.9-7.0 [facility] Comment on above: Performed By: #### L AURELIANO DRIVER, CMP #### [facility] [address] [place] [address] Dr. Neisha Araiza Erythrocyte distribution width (RBC) [Ratio] 12.7 % Normal 11.0-15.0 [facility] Comment on above: Performed By: #### L AURELIANO DRIVER, CMP #### [facility] [address] [place] [address] Dr. Neisha Araiza Hematocrit (Bld) [Volume fraction] 44.9 % Normal 36.0-48.0 [facility] Comment on above: Performed By: #### L AURELIANO DRIVER, CMP #### [facility] [address] [place] [address] Dr. Neisha Araiza Hemoglobin (Bld) [Mass/Vol] 15.4 g/dL Normal 12.0-16.0 [facility] Comment on above: Performed By: #### L AURELIANO DRIVER, CMP #### [facility] [address] [place] [address] Dr. Neisha Araiza IG # 0.03 10e3/ul Normal 0.00-0.03 [facility] Comment on above: Performed By: #### L AURELIANO DRIVER, CMP #### [facility] [address] [place] [address] Dr. Neisha Araiza IG % 0.3 % Normal 0.0-0.5 [facility] Comment on above: Performed By: #### L AURELIANO DRIVER, CMP #### [facility] [address] [place] [address] Dr. Neisha Araiza LYMPH # 1.2 103/ul Normal 1.2-3.8 [facility] Comment on above: Performed By: #### L AURELIANO DRIVER, CMP #### [facility] [address] [address] [address] Neisha Araiza Lymphocytes/100 WBC (Bld) 12.2 % Critically low 20.5-60.0 [facility] Comment on above: Performed By: #### L AURELIANO DRIVER, CMP #### [facility] [address] [address] [address] Neisha Araiza MANUAL DIFF REQ NO Normal [facility] Comment on above: Performed By: #### L NEISHA AURELIANO, CMP #### [facility] [address] [place] [address] Dr. Neisha Araiza MCH (RBC) [Entitic mass] 28.3 pg Normal 26.7-34.0 [facility] Comment on above: Performed By: #### L AURELIANO DRIVER, CMP #### [facility] [address] [place] [address] Dr. Neisha Araiza MCHC (RBC) [Mass/Vol] 34.3 g/dL Normal 29.9-35.2 [facility] Comment on above: Performed By: #### L NEISHA AURELIANO, CMP #### [facility] [address] [place] [address] Dr. Neisha Araiza MCV (RBC) [Entitic vol] 82.5 fL Normal 81.0-99.0 [facility] Comment on above: Performed By: #### L AURELIANO DRIVER, CMP #### [facility] [address] [place] [address] Dr. Neisha Araiza MONO # 0.3 103/ul Normal 0.3-0.8 [facility] Comment on above: Performed By: #### L IPA AURELIANO, CMP #### [facility] [address] [place] [address] Dr. Neisha Araiza Monocytes/100 WBC (Bld) 3.1 % Normal 1.7-12.0 [facility] Comment on above: Performed By: #### L IPA AURELIANO, CMP #### [facility] [address] [place] [address] Dr. Neisha Araiza NEUT # 8.1 103/ul Critically high 1.4-6.5 [facility] Comment on above: Performed By: #### L IPAAURELIANO, CMP #### [facility] [address] [address] [address] Neisha Araiza Neutrophils/100 WBC (Bld) 84.1 % Critically high 43.0-75.0 [facility] Comment on above: Performed By: #### L IPA AURELIANO, CMP #### [facility] [address] [place] [address] Dr. Neisha Araiza Platelet mean volume (Bld) [Entitic vol] 9.8 fL Normal 9.5-13.5 [facility] Comment on above: Performed By: #### L NEISHA AURELIANO, CMP #### [facility] [address] [place] [address] Dr. Neisha Araiza PLT 263 103/ul Normal 150-450 [facility] Comment on above: Performed By: #### L NEISHA AURELIANO, CMP #### [facility] [address] [place] [address] Dr. Neisha Araiza RBC 5.44 106/ul Critically high 4.20-5.40 [facility] Comment on above: Performed By: #### L AURELIANO DRIVER, CMP #### [facility] [address] [place] [address] Dr. Neisha Araiza WBC 9.6 103/ul Normal 4.0-11.0 [facility] Comment on above: Performed By: #### L AURELIANO DRIVER, CMP #### [facility] [address] [place] [address] Dr. Neisha Araiza LIPASEon 12-07-2021 Lipase [Catalytic activity/Vol] 73.0 U/L Normal 73.0-393.0 [facility] Comment on above: Performed By: #### A CETON #### [facility] [address] [place] [address] Dr. Neisha Araiza PROF 14(COMP METB)on 022 Albumin [Mass/Vol] 3.8 g/dL Normal 3.4-5.0 [facility] Comment on above: Performed By: #### A CETON #### [facility] [address] [place] [address] Dr. Neisha Araiza Albumin/Globulin [Mass ratio] 0.9 {ratio} Normal [facility] Comment on above: Performed By: #### A CETON #### [facility] [address] [place] [address] Dr. Neisha Araiza ALP [Catalytic activity/Vol] 120 U/L Critically high 46-116 [facility] Comment on above: Performed By: #### A CETON #### [facility] [address] [place] [address] Dr. Neisha Araiza ALT [Catalytic activity/Vol] 34 U/L Normal 14-59 [facility] Comment on above: Performed By: #### A CETON #### [facility] [address] [place] [address] Dr. Neisha Araiza Anion gap [Moles/Vol] 20.0 mmol/L Normal [facility] Comment on above: Performed By: #### A CETON #### [facility] [address] [place] [address] Dr. Neisha Araiza AST [Catalytic activity/Vol] 18 U/L Normal 15-37 [facility] Comment on above: Performed By: #### A CETON #### [facility] [address] [place] [address] Dr. Neisha Araiza Bilirubin [Mass/Vol] 1.1 mg/dL Critically high 0.2-1.0 [facility] Comment on above: Performed By: #### A CETON #### [facility] [address] [place] [address] Dr. Neisha Araiza Calcium [Mass/Vol] 8.5 mg/dL Normal 8.5-10.1 [facility] Comment on above: Performed By: #### A CETON #### [facility] [address] [place] [address] Dr. Neisha Araiza Chloride [Moles/Vol] 94 mmol/L Critically low 98-107 [facility] Comment on above: Performed By: #### A CETON #### [facility] [address] [place] [address] Dr. Neisha Aariza CO2 [Moles/Vol] 18.9 mmol/L Critically low 21.0-32.0 [facility] Comment on above: Performed By: #### A CETON #### [facility] [address] [place] [address] Dr. Neisha Araiza Creatinine [Mass/Vol] 0.59 mg/dL Normal 0.55-1.02 [facility] Comment on above: Performed By: #### A CETON #### [facility] [address] [address] [address] Neisha Araiza EGFR-AF SPANISH >60 Normal >=60 [facility] Comment on above: Performed By: #### A CETON #### [facility] [address] [place] [address] Dr. Neisha Araiza EGFR-NON AF SPANISH >60 Normal >=60 [facility] Comment on above: Performed By: #### A CETON #### [facility] [address] [place] [address] Dr. Neisha Araiza Globulin (S) [Mass/Vol] 4.1 g/dL Normal [facility] Comment on above: Performed By: #### A CETON #### [facility] [address] [place] [address] Dr. Neisha Araiza Glucose [Mass/Vol] 322 mg/dL Critically high 74-106 T [facility] Comment on above: Performed By: #### A CETON #### [facility] [address] [place] [address] Dr. Neisha Araiza Potassium [Moles/Vol] 3.9 mmol/L Normal 3.5-5.1 [facility] Comment on above: Performed By: #### A CETON #### [facility] [address] [place] [address] Dr. Neisha Araiza Protein [Mass/Vol] 7.9 g/dL Normal 6.4-8.2 [facility] Comment on above: Performed By: #### A CETON #### [facility] [address] [place] [address] Dr. Neisha Araiza Sodium [Moles/Vol] 129 mmol/L Critically low 136-145 Th [facility] Comment on above: Performed By: #### A CETON #### [facility] [address] [address] [address] Neisha Araiza Urea nitrogen [Mass/Vol] 12.0 mg/dL Normal 7.0-18.0 [facility] Comment on above: Performed By: #### A CETON #### [facility] [address] [address] [address] Neisha Araiza Urea nitrogen/Creatinine [Mass ratio] 20.3 mg/mg Normal [facility] Comment on above: Performed By: #### A CETON #### [facility] [address] [address] [address] Neisha Araiza Vital Signs Date Time Vital Sign Value Performing Clinician Tomekai nba 10-04-2024 07:29-0500 Body height 165.1 cm Amy Love MD Work Phone: [facility] 10-04-2024 07:29-0500 Body mass index (BMI) [Ratio] 28.62 kg/m2 Amy Love MD Work Phone: [facility] 10-04-2024 07:29-0500 Body temperature 98.2 [degF] Amy Love MD Work Phone: [facility] 10-04-2024 07:29-0500 Body weight 78.02 kg Amy Love MD Work Phone: [facility] 10-04-2024 07:29-0500 Diastolic blood pressure 92 mm[Hg] Amy Love MD Work Phone: [facility] 10-04-2024 07:29-0500 Heart rate 116 /min Amy Love MD Work Phone: [facility] 10-04-2024 07:29-0500 Respiratory rate 20 /min Amy Love MD Work Phone: [facility] 10-04-2024 07:29-0500 SaO2% (BldA) [Mass fraction] 96 % Amy Love MD Work Phone: [employer] 10-04-2024 07:29-0500 Systolic blood pressure 160 mm[Hg] Amy Love MD Work Phone: [employer] [facility] 08-28-2024 15:14-0500 Diastolic blood pressure 92 mm[Hg] Sanchez Mancilla MD Work Phone: [employer] [facility] 08-28-2024 15:14-0500 Systolic blood pressure 150 mm[Hg] Sanchez Mancilla MD Work Phone: [employer] 08-28-2024 14:05-0500 Body height 165.1 cm Sanchez Mancilla MD Work Phone: [employer] [facility] 08-28-2024 14:05-0500 Body mass index (BMI) [Ratio] 29.29 kg/m2 Sanchez Mancilla MD Work Phone: [employer] [facility] 08-28-2024 14:05-0500 Body temperature 97.9 [degF] Sanchez Mancilla MD Work Phone: [employer] 08-28-2024 14:05-0500 Body weight 79.83 kg Sanchez Mancilla MD Work Phone: [employer] 08-28-2024 14:05-0500 Heart rate 116 /min Sanchez Mancilla MD Work Phone: [employer] [facility] 08-28-2024 14:05-0500 Respiratory rate 20 /min Sanchez Mancilla MD Work Phone: [employer] [facility] 08-28-2024 14:05-0500 SaO2% (BldA) [Mass fraction] 99 % Sanchez Mancilla MD Work Phone: [employer] [facility] 07-09-2024 08:36-0500 Body height 165.1 cm Amisha Nguyen MD Work Phone: [employer] 07-09-2024 08:36-0500 Body mass index (BMI) [Ratio] 3 kg/m2 Amisha Nguyen MD Work Phone: [employer] 07-09-2024 08:36-0500 Body temperature 98.6 [degF] Amisha Nguyen MD Work Phone: [employer] 07-09-2024 08:36-0500 Body weight 8.16 kg Amisha Nguyen MD Work Phone: [employer] 07-09-2024 08:36-0500 Diastolic blood pressure 99 mm[Hg] Amisha Nguyen MD Work Phone: [employer] 07-09-2024 08:36-0500 Heart rate 106 /min Amisha Nguyen MD Work Phone: [employer] 07-09-2024 08:36-0500 Respiratory rate 16 /min Amisha Nguyen MD Work Phone: [employer] 07-09-2024 08:36-0500 SaO2% (BldA) [Mass fraction] 98 % Amisha Nguyen MD Work Phone: [employer] 07-09-2024 08:36-0500 Systolic blood pressure 146 mm[Hg] Amisha Nguyen MD Work Phone: [facility] 01-23-2023 18:06-0400 Hourly Rounding Mbanefo OJUKWU [facility] 01-23-2023 18:06-0400 Promise to Return Mbanefo OJUKWU [facility] 01-23-2023 17:21-0400 Hourly Rounding Mbanefo OJUKWU [facility] 01-23-2023 17:21-0400 Promise to Return Mbanefo OJUKWU [facility] 01-23-2023 16:21-0400 Hourly Rounding Mbanefo OJUKWU [facility] 01-23-2023 16:21-0400 Promise to Return Mbanefo OJUKWU [facility] 01-23-2023 14:00-0400 Blood Pressure Location Mbanefo OJUKWU [facility] 01-23-2023 11:45-0400 Heart rate 74 /min Mbanefo OJUKWU [facility] 01-23-2023 11:45-0400 SaO2% (BldA) [Mass fraction] 98 % Mbanefo OJUKWU [facility] 01-23-2023 11:45-0400 Diastolic blood pressure 87 mm[Hg] Mbanefo OJUKWU [facility] 01-23-2023 11:45-0400 Mean blood pressure 107 mm[Hg] Mbanefo OJUKWU [facility] 01-23-2023 11:45-0400 Systolic blood pressure 146 mm[Hg] Mbanefo OJUKWU [facility] 01-23-2023 11:45-0400 Body temperature 98.06 [degF] Mbanefo OJUKWU [facility] 01-23-2023 08:47-0400 gluc 192 mg/dL Mbanefo OJUKWU [facility] 01-23-2023 08:46-0400 Diastolic blood pressure 95 mm[Hg] Mbanefo OJUKWU [facility] 01-23-2023 08:46-0400 Heart rate 88 /min Mbanefo OJUKWU [facility] 01-23-2023 08:46-0400 Systolic blood pressure 155 mm[Hg] Mbanefo OJUKWU [facility] 01-23-2023 08:03-0400 Heart rate 83 /min Mbanefo OJUKWU [facility] 01-23-2023 08:03-0400 SaO2% (BldA) [Mass fraction] 98 % Mbanefo OJUKWU [facility] 01-23-2023 08:03-0400 Mean blood pressure 115 mm[Hg] Mbanefo OJUKWU [facility] 01-23-2023 08:02-0400 Body temperature 98.24 [degF] Mbanefo OJUKWU [facility] 01-23-2023 01:40-0400 Blood Pressure Location Mbanefo OJUKWU [facility] 01-23-2023 01:40-0400 Body temperature 98.06 [degF] Mbanefo OJUKWU [facility] 01-23-2023 01:40-0400 Heart rate 91 /min Mbanefo OJUKWU [facility] 01-23-2023 01:40-0400 Mean blood pressure 119 mm[Hg] Mbanefo OJUKWU [facility] 01-23-2023 01:40-0400 Respiratory rate 18 /min Mbanefo OJUKWU [facility] 01-23-2023 01:40-0400 SaO2% (BldA) [Mass fraction] 98 % Mbanefo OJUKWU [facility] 01-22-2023 20:59-0400 Heart rate 94 /min Mbanefo OJUKWU [facility] 01-22-2023 19:00-0400 Mean blood pressure 108 mm[Hg] Mbanefo OJUKWU [facility] 01-22-2023 15:33-0400 Respiratory rate 18 /min Mbanefo OJUKWU [facility] 01-22-2023 15:32-0400 Mean blood pressure 101 mm[Hg] Mbanefo OJUKWU [facility] 01-22-2023 11:35-0400 Heart rate 67 /min Mbanefo OJUKWU [facility] 01-22-2023 08:40-0400 gluc 215 mg/dL Mbanefo OJUKWU [facility] 01-22-2023 04:53-0400 Mean blood pressure 97 mm[Hg] Mbanefo OJUKWU [facility] 01-21-2023 18:42-0400 Respiratory rate 15 /min Mbanefo OJUKWU [facility] 01-21-2023 17:54-0400 Respiratory rate 21 /min Mbanefo OJUKWU [facility] 01-21-2023 17:45-0400 Respiratory rate 16 /min Mbanefo OJUKWU [facility] 01-21-2023 16:20-0400 Heart rate 87 /min Mbanefo OJUKWU [facility] Encounters Encounter Date Encounter Type Care Provider Facility Start: 10-04-2024 End: 10-04-2024 Emergency department patient visit Amy Love MD Work Phone: [facility] Comment on above: Viral illness (Prima ry Dx) Start: 08-28-2024 End: 08-28-2024 Emergency department patient visit Sanchez Mancilla MD Work Phone: [facility] Comment on above: Blood glucose elevat ed (Primary Dx); Hyperglycemia due to diabetes mellitus (HCC); Dehydration Start: 07-09-2024 End: 07-09-2024 Emergency department patient visit Amisha Nguyen MD Work Phone: [facility] Comment on above: Infective otitis ext [place] of left ear (Primary Dx); Herpes zoster without complication Start: 02-05-2023 End: 02-05-2023 ambulatory FELIPA [facility] Start: 01-23-2023 ambulatory Facility:1 [id number] Start: 01-22-2023 ambulatory Facility:1 [id number] Start: 01-21-2023 End: 01-23-2023 ambulatory Abhishek Monterroso Facility:[facility] Start: 01-21-2023 End: 01-23-2023 Observation Ellie LindJUKWU [facility] Start: 12-12-2022 End: 12-12-2022 Emergency department patient visit Pako Metzger Facility:[facility] Start: 06-15-2022 End: 06-15-[address] MOLLY [...] Vaccine ( season) COVID-19 Vaccine ( season) [facility] Start: 04-02-2024 COVID-19 Vaccine ( season) COVID-19 Vaccine ( season) [facility] Start: 03-02-2024 Influenza vaccination Flu vaccine (# 1) [facility] Start: 1997 DTaP/Tdap/Td vaccine (1 - Tdap) DTaP/Tdap/Td vaccine (1 - Tdap) [facility] End: 08-28-2024 Blood gas, venous Blood gas, venous Lab Routine One Time for 1 Occurrences starting 08/28/2024 until 08/28/2024 [employer] Comment on above: One Time for 1 Occur rences starting 08/28/2024 until 08/28/2024 EKG 12 Lead EKG 12 Lead ECG STAT 08/28/2024 4:47 PM EST [facility] [employer] Payers Date Payer Category Payer Medicaid [id number] 1980 Unknown [id number] 2.16.84 [id number] 1980 Unknown [id number] 2.16.84 0.1.906500.3.579.2.593 1980 Unknown [id number] 2.16.84 0.1.315445.3.579.2.593 1978 Unknown [id number] 2.16.84 0.1.324427.3.579.2.593 1978 Unknown [id number] 2.16.84 0.1.567211.3.579.2.593 1978 Unknown [id number] 2.16.84 0.1.315266.3.579.2.593 1978 Unknown [id number] 2.16.84 0.1.967797.3.579.2.593 1978 Unknown [id number] 2.16.84 0.1.907008.3.579.2.593 1978 Unknown [id number] 2.16.84 0.1.678576.3.579.2.593 1978 Unknown [id number] 2.16.8 40.1.244694.3.579.2.727 1978 Unknown [id number] 2.16.8 40.1.142867.3.579.2.727 1978 Unknown [id number] 2.16. 840.1.221512.3.579.2.356 1978 Unknown [id number] 2.16. 840.1.141307.3.579.2.356 1978 Unknown [id number] 2.16.8 40.1.378805.3.579.2.174 1978 Unknown [id number] 2.16.8 40.1.781301.3.579.2.174 1978 Unknown [id number] 2.16.8 40.1.382183.3.579.2.174 1959 Unknown [id number] Social History Date Type Detail Facility Tobacco Never smoker [facility] Comment on above: denies Tobacco smoking status No Smokin g Status Entered [facility] Start: 07-09-2024 End: 10-04-2024 Sex Assigned At Female [facility] Start: 07-09-2024 Tobacco smoking stat us TNIS Never smoked tobacco [employer] Start: 07-09-2024 Tobacco use and exposure Smokeless tobacco non-user [employer] Start: 07-09-2024 End: 10-04-2024 Alcoholic beverage intake Lifetime non-drinker (finding) [employer] Start: 1980 Sex assigned at Female [facility] [employer] Start: 07-09-2024 Gender identity Identifies as female gender (finding) [employer] [facility] Start: 07-09-2024 End: 10-04-2024 History of Social function [employer] How often to you hav e a drink containing alcohol? Never [employer] How many standard drinks containing alcohol do you have on a typical day? Patient does not drink [employer] NEGATED: Highlighted rowStart: KELVIN History of tobacco use Passive smoker [employer] Medical Equipment Procedure Code Equipment Code Equipment Origin al Text Equipment Identifier Dates PCI Unknown 01/22/23 Non Biological Left Circumflex Coronary Artery FDA Start: 01-22-2023 Comment on above: 2.75 mm x 28 mm Xien ce Coronary stent to LAD Functional Status Date Assessment Result Facility 01-21-2023 Functional Status No [facility] 01-21-2023 Functional Status [facility] Clinical Notes 01-05-2022 to 08-28-2024 Discharge InstructionsAttachments [...] be sent through Care Everywhere.Hyperglycemia: General Info (Emirati)documented in this encounter [facility] 02-05-2023 Note Cardiology Clinic No te Chief [...] indefinitely -High intensi (more content not included)... [facility] 02-05-2023 Note New patient here to establish care. Ref from Dr. Carrillo for recent NSTEMI w/ PCI at [facility]. She wanted to see cardiology closer to home. She was started on Brilinta s/p PCI and is tolerating it well. [facility] 01-24-2023 Note Admission and Discha rge Information Admitting Physician - Bobby BOANDO MDfo Consulting Physician - Abhishek Monterroso MD. [...] shoulder pain. She was subsequently admitted to [facility] with acute NSTEMI, elevated troponin, hypertensive urgency, right shoulder pain. She was treated with aspirin, Brilinta, Lipitor, nitroglycerin, Lovenox. She was also treated with lisinopril and Lopressor. She was seen in consultation by the counter helper and underwent echocardiogram that was essentially normal. [...] primary care physician as well as the counter helper accordingly. Physical Exam General: alert, no acute [...] 69.9 % Lymph Auto - 24.9 % Vernon Auto - 4.6 % Eos Auto - 0.2 % Basophil Auto - 0.4 % Neutro Absolute - 7.4 E9/L Lymph Absolute - 2.6 E9/L Vernon Absolute - 0.5 E9/L Eos Absolute - [...] - 255 mg/dL POC Device SN - [id number] POC User ID - [id number] POC Username - JUDIE PARRH CBC w/ [...] - NEGATIVE1 UA (more content not included)... [facility] Comment on above: Result Comment: Elec tronically Signed By: Ellie OBANDO MD\.br\Date and Time Signed: 01/24/23 19:32 EDT 01-23-2023 Evaluation + Plan note Extrac donovan from: Title:APSO Note Author:Ellie BOANDO MD Date: 40-year-old female noncigarette smoker with [...] Lipitor, lisinopril, Lopressor. Treated with Lovenox. [facility] Moderate 35 Minutes 16786 2. Coronary artery disease (I25.10: Atherosclerotic heart disease of ely [place] coronary artery without angina pectoris) As seen on cardiac catheterization. Patient has coronary artery disease with mid left circumflex artery occlusion requiring 1 drug-eluting stent placement on 01/22/2023. Continue on aspirin, Brilinta, Lipitor, lisinopril and Lopressor. [facility]: [facility]/Day Moderate 35 Minutes 17291 3. Chest pain (R07.9: Chest pain, unspecified) Secondary to above. Resolved. Or[facility]/Day Moderate 35 Minutes 11060 4. Elevated troponin (R77.8: Other specified abnormalities of plasma proteins) Secondary to above. Resolved. Or[facility]: [facility]/Day Moderate 35 Minutes 82743 5. Hypertensive urgency (I16.0: Hypertensive urgency) Resolved. Continue on lisinopril and metoprolol. [facility]: [facility]/Day Moderate 35 Minutes 15690 6. Right shoulder pain (M25.511: Pain in right shoulder) Secondary to above #1. With atypical presentation. Ordered: [facility]/Day Moderate 35 Minutes 72390 7. Leukocytosis (D72.829: Elevated white blood cell [...] deep vein thrombosis (DVT) prophylaxis (Z79.899: Other keno terminal operator (current) drug therapy) SCDs. Disposition: Home either today or in a.m. pending cardiology final recommendations. I discussed the diagnosis and plan of care with the patient at the bedside. Moderate level of MDM based on addressing above issues. This documentation was transcribed using voice recognition software. Several attempts were made to ensure accuracy. However inadvertent computerized fingernail sculpturer errors may be present. Ellie Obando. Hospitalist. [...] Echo Transthoracic w/ Contrast HgbA1c Referral to [facility] Extracted from: Title:Procedure Note Heart & Vascular Author:Raymundo syed MD, Abhihsek Hagan Date:01/22/23 1. Chest pain (R07.9: Chest [...] deep vein thrombosis (DVT) prophylaxis (Z79.899: Other residential (current) drug therapy) Orders: ticagrelor, 180 mg [...] deep vein thrombosis (DVT) prophylaxis (Z79.899: Other keno terminal operator (current) drug therapy) Orders: ticagrelor, 180 mg [...] morphine and oxygen. Cardiology consult pending. Ordered: [facility] Hospital Care/Day Moderate 35 Minutes 80945 2. Elevated troponin (R77.8: Other specified abnormalities of plasma proteins) Elevated troponin secondary to NSTEMI. Cardiology consult pending. Continue on aspirin, Lipitor, Lovenox. Echocardiogram pending. Ordered: [facility] Hospital Care/Day Moderate 35 Minutes 02602 3. NSTEMI (non-ST elevation myocardial infarction) (I21.4: Non-ST elevation (NSTEMI) myocardial infarction) Acute NSTEMI present on admission. Cardiology consult pending. Echocardiogram pending. Continue on aspirin, Lipitor, lisinopril, Lovenox. Or[facility]: [facility]/Day Moderate 35 Minutes 53514 4. Hypertensive urgency (I16.0: Hypertensive urgency) Resolved. Continue lisinopril. Or[facility]: [facility]/Day Moderate 35 Minutes [id number] 5. Right shoulder pain (M25.511: Pain in right shoulder) Resolved. Ordered: [facility]/Day Moderate 35 Minutes 15703 6. Leukocytosis (D72.829: Elevated white blood cell [...] deep vein thrombosis (DVT) prophylaxis (Z79.899: Other residential (current) drug therapy) Lovenox. Disposition: Pending echocardiogram and cardiology consult. I discussed the diagnosis and plan of care with the patient at the bedside. Moderate level of MDM based on addressing above issues. This documentation was transcribed using voice recognition software. Several attempts were made to ensure accuracy. However inadvertent computerized fingernail sculpturer errors may be present. Ellie Obando. Hospitalist. [...] Ordered: Initial Hospital Care/Day High 75 Minutes 87893 2. Elevated troponin (R77.8: Other specified abnormalities of plasma proteins) Elevated troponin mild. We will complete serial cardiac enzymes. Started patient on aspirin. If troponin trends up we will start patient on Lovenox or IV heparin. Check fasting lipid profile. Echocardiogram. Ordered: Initial Hospital Care/Day High 75 Minutes 67343 3. Hypertensive urgency (I16.0: Hypertensive urgency) Continue lisinopril. IV hydralazine as needed. Ordered: Initial Hospital Care/Day High 75 Minutes 14793 4. Right shoulder pain (M25.511: Pain in right shoulder) Musculoskeletal in origin. Started patient on as needed pain medications. Ordered: Initial Hospital Care/Day High 75 Minutes 20310 5. Leukocytosis (D72.829: Elevated white blood cell count, unspecified) Secondary to steroid effect. Ordered: Initial Hospital Care/Day High 75 Minutes 28978 6. Hyperglycemia (R73.9: Hyperglycemia, unspecified) Secondary to [...] deep vein thrombosis (DVT) prophylaxis (Z79.899: Other keno terminal operator (current) drug therapy) Lovenox. Disposition: The patient [...] made to ensure accuracy. However inadvertent computerized fingernail sculpturer errors may be present. Ellie Obando. Hospitalist. [...] deep vein thrombosis (DVT) prophylaxis (Z79.899: Other residential (current) drug therapy) Orders: nitroglycerin, 0.4 mg [...] ED Physician consult Hospitalist for continued care [facility]06-24-2023 Hospital Discharge instructions Patient Education 01/23/2023 09:22:37 CV - Cardiovascular PCI Discharge Instructions (CUSTOM) [place], [place] Cardiovascular PCI DISCHARGE INSTRUCTIONS Diet: Resume [...] hours post procedure: Actoplus MetGlucophageGlucophage XR GlucovanceAvandametFortamet Gsj-jkueafrssHnivglDezw-efmnvymlu GlumetzaJanumetMetaglip RiometGlycomet Minimal pain, soreness and/or discomfort is expected. If you are prescribed an aspirin and/or antiplatelet (such as Plavix, Brilinta or Effient) do NOT stop taking these medications for any reason without talking to your counter helper Site Care: Do not remove dressing for [...] you are interested in smoking cessation, contact [facility] at [phone], ext. [phone]. In the event you are unable to reach your physician, please call [facility] at [phone] and the dough brake machine operator will assist you. Seek Medicare [...] Up Care 01/21/2023 16:19:43 With:Abhishek Monterroso Address: [address] [place] [phone] Business (1) When:2 weeks Comments:Call for followup appointment With:Gentry Carrillo Address: [address] [place] [phone] Business (1) When:01/27/2023 09:30:00 [facility]06-24-2023 NoteProcedure [facility] poss PCI via right radial Patient seen [...] deep vein thrombosis (DVT) prophylaxis (Z79.899: Other keno terminal operator (current) drug therapy) Orders: ticagrelor, 180 mg = 2 tab(s), Tab, Oral, Once, Stop date 01/22/23 14:32:00 EDT, NOW, Start date 01/22/23 14:32:00 EDT, 01/22/23 14:32:00 EDT ticagrelor, Tab, Misc, Once, Stop date 01/22/23 14:32:48 EDT, Physician Stop, 01/22/23 14:32:48 EDT [facility]Result Comment: Electronically Signed By: Kriss HAIDER, Abhishek Hagan\.br\Date and Time Signed: 01/22/23 22:12 [id number] NoteEchocardiology Procedure Exam Date/Time Accession # Ordering Dr. Gonzalez Transthoracic w/ 01/22/2023 11:42 EDT [id number] Ellie OBANDO MD Contrast CPT code 70827 [id number] Reason for Exam (Echo Transthoracic w/ Contrast) Chest pain Report [address] [address] Adult Echocardiogram Report Name: ESCOBAR ORTEGA Study Date: 01/22/2023 09:56 AM BP: 129/81 mmHg Patient Location: [address] [place] [address] HR: 89 : 1980 Gender: Female Height: 65 in Age: 43 yrs Ethnicity: [facility] Weight: 183 lb Reason For Study: Chest pain BSA: 1.9 m2 History: DM, HTN Ordering Physician: Ellie OBANDO Performed By: Rema Meléndez, [facility] Interpretation Summary Ejection Fraction = 60-65%. [...] Signed by: Abhishek Monterroso MD Transcribed by: [facility] Technologist: [facility]06-22-2023 Note Chief Complaint pt states just seen for arm pain, given rx steroid. 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 Comment: Electronically Signed By: GAGE HAIDER, Ellie\.br\Date and Time Signed: 01/21/23 19:11 [id number] Note PROCEDURE: XR GI UPPER AIR KUB [...] Electronically authenticated by: MATTHEW SILVER Date: 2022-01-05 11:30[facility]06-06-2022 NotePROCEDURE: XR GI UPPER AIR KUB [...] Electronically authenticated by: MATTHEW SILVER Date: 2022-01-05 11:30[facility]06-06-2022 NotePROCEDURE: XR GI UPPER AIR KUB [...] authenticated by: MATTHEW SILVER Date: 2022-01-05 11:30[facility] note* Diagnosis Infective otitis externa of left ear- Primary Herpes zoster without complication documented in this encounter [facility] note* Diagnosis Blood glucose elevated- Primary Other abnormal glucose Hyperglycemia due to diabetes mellitus (HCC) Dehydration documented in this encounter [facility] note* Diagnosis Viral illness- Primary Unspecified viral infection, in conditions classified elsewhere and of unspecified site documented in this encounter [facility] course Narrative No data available for this section [facility] Attachments The following attachments cannot be sent through Care Everywhere. * Shingles (Emirati) * Otitis Externa (Emirati) [facility]* Attachments The following attachments cannot be sent through Care Everywhere. * URI (Upper Respiratory Infection): Viral (Emirati) [facility] No data available for this section [facility] Summary Purpose Family History No Family [...] AUTHOR AUTHOR'S ORGANIZ ATION 01/28/2023 Austin Ferrer [facility] DATE CREATED AUTHOR AUTHOR'S ORGANIZ ATION 03/15/2023 [facility] DATE CREATED AUTHOR AUTHOR'S ORGANIZ ATION 05/15/2023 [facility] DATE CREATED AUTHOR AUTHOR'S ORGANIZ ATION 10/05/2024 Татьяна Braxtonsia pittman Patient Care team informatio n (unrecognized section and content) Transfer Table Operator Helper Relationship Specialty Start Date End Date Gentry Carrillo MD [address] [phone] PCP - General Family Medicine 07/09/24 Transfer Table Operator Helper Relationship Specialty Start Date End Date Gentry Carrillo MD [address] [place] [address] PCP - General Family Medicine 07/09/24 Transfer Table Operator Helper Relationship Specialty Start Date End Date Gentry Carrillo MD [address] [place] [address] PCP - General Family Medicine 07/09/24 Reason [...] BE BASED ON THE PRIMARY CLINICAL RECORDS. [employer] provides no warranty or guarantee of the accuracy or completeness of information in this document.
--- NOTE | 2024-10-22 11:24 | ED.GENADUL1 ---
HPI HPI - General Adult General Chief complaint: Extremity Injury, Lower Stated complaint: LOWER EXTREMITY PAIN Time Seen by Provider: 10/22/24 11:11 Source: patient Mode of arrival: walk-in Limitations: no limitations History of Present Illness HPI narrative: 44-year-old female presents to the emergency department for bruising in her left foot particularly at the fifth fourth and third toes. She had injured it several days ago and was here and had a negative x-ray. The bruising increased and she was concerned so she came back. She is on Brilinta. No new injury. Related Data Home Medications ?Medication ?Instructions ?Recorded ?Confirmed aspirin 81 mg tablet,delayed 81 mg PO DAILY 05/25/23 10/22/24 release atorvastatin 80 mg tablet 80 mg PO DAILY 05/25/23 10/22/24 ticagrelor 90 mg tablet (Brilinta) 90 mg PO BID 05/25/23 10/22/24 nitroglycerin 0.4 mg sublingual 0.4 mg sublingual Q5M PRN chest 08/09/23 10/22/24 tablet pain insulin aspart U-100 100 unit/mL subcut 10/22/24 (3 mL) subcutaneous pen insulin aspart U-100 100 unit/mL 10/22/24 subcutaneous solution Previous Rx's ?Medication ?Instructions ?Recorded hydroxyzine HCl 25 mg tablet 25 mg PO BID PRN anxiety #20 tabs 05/01/23 acetaminophen 300 mg-codeine 30 mg 1 tab PO Q6H PRN pain 3 days #10 10/19/24 tablet tabs Allergies Allergy/AdvReac Type Severity Reaction Status Date / Time penicillin G AdvReac Intermediate Hives Verified 10/22/24 10:59 Opioid HPI Opioid Management Most Recent Opioid Data: Last Pain Scale 10 01/20/23 14:12 01/20/23 Review of Systems ROS Narrative A ten point review of systems is negative except as noted above. PFSH PFSH Social History Smoking status: Never smoker Little interest or pleasure in doing things: not at all Feeling down, depressed, or hopeless: not at all Exam Narrative Exam Narrative: Nurses note and vital signs reviewed and patient is not hypoxic. General: The patient appears well and in no apparent distress. Patient is resting comfortably on cart. Skin: Warm, dry, no pallor noted. There is no rash noted. Head: Normocephalic, atraumatic Eye: Normal conjunctiva, no drainage Ears, Nose, Mouth, and Throat: oral mucosa is moist. Nares patent. Cardiovascular: Regular Rate and Rhythm Respiratory: Patient is in no distress, no accessory muscle use GI: Soft and nontender Musculoskeletal: Bruising present on the left foot particular at the third fourth and fifth toes. Skin intact Neurological: A&O, normal speech Psychiatric: Cooperative Constitutional Vital Signs, click to edit/add: Last Vital Signs Temp 98.7 F 10/22/24 10:59 Resp 20 10/22/24 10:59 BP 160/108 H 10/22/24 10:59 Pulse Ox 98 10/22/24 10:59 O2 Del Method Room Air 10/22/24 10:59 Course Vital Signs Vital signs: Vital Signs Temperature 98.7 F 10/22/24 10:59 Respiratory Rate 20 10/22/24 10:59 Blood Pressure 160/108 H 10/22/24 10:59 Pulse Oximetry 98 10/22/24 10:59 Oxygen Delivery Method Room Air 10/22/24 10:59 Temperature 98.7 F 10/22/24 10:59 Respiratory Rate 20 10/22/24 10:59 Blood Pressure 160/108 H 10/22/24 10:59 Pulse Oximetry 98 10/22/24 10:59 Oxygen Delivery Method Room Air 10/22/24 10:59 Medical Decision Making MDM Narrative Medical decision making narrative: X-ray per radiologist is negative. I was suspicious of possible proximal phalangeal fracture of the fourth toe, nondisplaced, but as noted the radiologist read this as negative. She is placed in a postop shoe, application checked by me and found to be appropriate, she is neurovascularly intact. Treatment diagnosis and follow-up were discussed with the patient Differential Diagnosis Differential Diagnosis: Sprain, fracture Imaging Data Foot x-ray: Radiologist's impression: No acute fracture, no acute dislocation, soft tissue swelling noted to surround the phalanges of the left fourth and fifth toe consistent with posttraumatic Discharge Plan Discharge Chief Complaint: Extremity Injury, Lower Clinical Impression: Sprain of left foot Patient Disposition: Home, Self-Care Time of Disposition Decision: 12:37 Condition: Good Mode of Transportation: Private Vehicle Prescriptions / Home Meds: No Action hydroxyzine HCl 25 mg tablet 25 mg PO BID PRN (Reason: anxiety) Qty: 20 0RF Brilinta 90 mg tablet 90 mg PO BID atorvastatin 80 mg tablet 80 mg PO DAILY aspirin 81 mg tablet,delayed release (DR/EC) 81 mg PO DAILY acetaminophen-codeine 300-30 mg tablet 1 tab PO Q6H PRN (Reason: pain) 3 Days Qty: 10 0RF insulin aspart U-100 100 unit/mL solution insulin aspart U-100 100 unit/mL (3 mL) insulin pen SUBCUT nitroglycerin 0.4 mg tablet, sublingual 0.4 mg sublingual Q5M PRN (Reason: chest pain) Print Language: Prydeinig Instructions: Foot Sprain (ED) Referrals: Gentry Wolf MD [Primary Care Provider] - 1 week
== END 2024-10-22 12:54 | disposition home or self-care (01) ==
PROVIDERS: Emergency Provider Emergency Medicine; PCP Family Medicine
DX: S93.602A Unspecified sprain of left foot, initial encounter (principal); X58.XXXA Exposure to other specified factors, initial encounter
CPT/HCPCS: 73630; 99283

== ENCOUNTER 2025-01-08 20:39 | Outpatient (REF) | payer OTHER, SELFPAY ==
--- OUTSIDE RECORDS SUMMARY | 2024-09-19 07:45 | XMS_ITS ---
Author Organization [facility] in [place] Address [address] [place] [address] Care Team Providers Care J2Ee Consultant Name Role Phone Phillip Wolf Primary Care Provider REASON FOR VISIT Insulin Medications Medication SIG (Take, Route, Frequency, Duration) Notes Start Date End Date Status Insulin Aspart FlexPen 100 UNIT/ML 30 units Subcutaneous BID for 30 days 09/19/2024 Active Encounters Encounter Location Date Provider [facility] [address] [place] [address] 09/19/2024 Phillip Wolf Diabetes mellitus E11.9 Assessments Encounter Date Diagnosis (ICD Code) Assessment Notes Treatment Notes Treatment Clinical Notes Section Notes 09/19/2024 Diabetes mellitus (ICD-10 - E11.9) Plan Of Treatment Medication Medication Name Sig Start Date Stop Date Notes Basaglar KwikPen 100 UNIT/ML 30 U Subcutaneous BID Insulin Aspart FlexPen 100 UNIT/ML 30 units Subcutaneous BID for 30 days 09/19/2024 Progress Notes * Renu NASH DDOB: [birth year] (44 yo F)Acc No.[id number]:09/19/2024 Patient: Ebony Renu CARLOS :1980 A ge:44 Y S ex:Female Address:[address] [place] [address], [id number] * Refills Start Insulin Aspart FlexPen Solution Pen-injector, 100 UNIT/ML, Subcutaneous, 5, 30 units, BID, 30 days, Refills=11 Stop Basaglar KwikPen Solution Pen-injector, 100 UNIT/ML, Subcutaneous, 30 U, BID * true * Date: Generated for Man espino/Serge/Ahmetitting on: 0 01/08/2025 08:42 PM EDT
--- OUTSIDE RECORDS SUMMARY | 2024-10-26 12:15 | XMS_ITS ---
Author Organization [facility] in [place] Address [address] [place] [address] Care Team Providers Care Spreader Operator Name Role Phone Phillip Wolf Primary Care Provider [phone] Allergies Allergen (clinical drug ingredient) Drug/Non Drug Allergy documented on EMR Reaction Allergy Type Onset Date Status Penicillin rash- childhood Drug Allergy Active REASON FOR VISIT patient is co left foot pains, she fell in the shower, foot is swollen and bruise, went tothe ER night and wednesday morning, also is co constant cough keeping her up at night, lasting 1 week Medications Medication SIG (Take, Route, Frequency, Duration) Notes Start Date End Date Status Insulin Aspart FlexPen 100 UNIT/ML 30 units Subcutaneous BID for 30 days 09/19/2024 Active Lisinopril 20 MG 1 tablet Orally Once a day Active Insulin Syringe 31G X 16 1 ML Use 1 syringe to drawn insulin TID for 90 days 09/01/2024 Active Pen Tyler 16 31G X 8 MM as directed Active NovoLOG 100 UNIT/ML 5 U for every 50 ove r 150 - max dose is 20 Injection ac 08/31/2024 Active Ibuprofen 800 MG 1 tablet with food o r milk as needed Orally every 8 hrs 09/18/2024 Active levoFLOXacin 500 MG 1 tablet Orally Once a day for 10 day(s) 10/26/2024 Active Fluticasone Propionate 50 MCG/ACT 1 spray in each nostril Nasally twice a day Active Citalopram Hydrobromide 20 MG 1 tablet Orally Once a day Active Glucose Meter Test - machien and strips and lancets In Vitro tid needs machine to match strips 08/31/2024 Active Cetirizine HCl 10 MG 1 tablet Orally Onc e a day for 30 days 10/26/2024 Active Atorvastatin Calcium 80 MG TAKE 1 TABLET BY MOUTH ONCE DAILY Oral for 30 Days Active Aspirin Adult Low Dose 81 MG 1 tablet Orally Once a day Active Reglan 10 MG 1 tablet before meal s Orally four times daily Active Social History Tobacco Use: Social History Observation Description Date Details (start date - stop date) Never Smoker NA - NA Tobacco Use/Smoking Question Answer Notes Patient is a nonsmoker AUDIT-C (Standard) Question Answer Notes Did you have a drink containing alcohol in the p ast year? No Points 0 Interpretation Negative Vital Signs Weight 183 lbs 10/26/2024 Height 65 in 10/26/2024 Blood pressure systolic 132 mm Hg 10/27/19 25 Blood pressure diastolic 80 mm Hg 025 Temperature 98.7 degrees Fahrenheit 10/27/19 25 BMI 30.45 kg/m2 10/26/2024 Encounters Encounter Location Date Provider Diagnosis [facility] [address] [place] [address] 10/26/2024 Phillip Hoy Acute bronchitis, unspecified organism J20.9 Assessments Encounter Date Diagnosis (ICD Code) Assessment Notes Treatment Notes Treatment Clinical Notes Section Notes 10/26/2024 Acute bronchitis, unspecified organism (ICD-10 - J20.9) Rest and drink more liquids, especially water. You may use a humidifier or vaporizer to help keep the drainage moist. Mdsm-lek-itrptoq Nasal Saline may help the stuffy and runny nose. Use Ibuprofen and or Tylenol as needed for fever, chills, body aches or pain. Children 5 years old should not be given tznu-syg-ejgztxj cough and cold medications such as guaifenesin and dextromethorphan. If you're over age 5, you may try xhdx-fiy-fhpvret cold medications such as guaifenesin and dextromethorphan, or multi-symptom cold reliever such as Dayquil to help reduce the symptoms. Antibiotics have been prescribed. You should take these until completed and follow the directions. Antibiotics can sometimes cause upset stomach, and in rare cases, serious allergic reactions or serious gastrointestinal problems. If you start having severe abdominal pain, severe vomiting, or bloody diarrhea, you should be reevaluated by your physician or urgent care immediately. Follow up with your Primary Care Provider or return to clinic if symptoms do not improve within 3-5 days. If you develop severe symptoms such as shortness of breath, repeated vomiting, coughing up blood, or chest pain you should go to the emergency room or call 911 Plan Of Treatment Medication Medication Name Sig Start Date Stop Date Notes levoFLOXacin 500 MG 1 tablet Orally Once a day for 10 day(s) 10/26/2024 Cetirizine HCl 10 MG 1 tablet Orally Onc e a day for 30 days 10/26/2024 Treatment Notes Assessment Notes Acute bronchitis, unspecified organism R est and drink more liquids, especially water. You may use a humidifier or vaporizer to help keep the drainage moist. Bhyb-vwf-miyklvi Nasal Saline may help the stuffy and runny nose. Use Ibuprofen and or Tylenol as needed for fever, chills, body aches or pain. Children 5 years old should not be given krtm-wmj-lrnazvo cough and cold medications such as guaifenesin and dextromethorphan. If you're over age 5, you may try zisf-zdw-vbjobta cold medications such as guaifenesin and dextromethorphan, or multi-symptom cold reliever such as Dayquil to help reduce the symptoms. Antibiotics have been prescribed. You should take these until completed and follow the directions. Antibiotics can sometimes cause upset stomach, and in rare cases, serious allergic reactions or serious gastrointestinal problems. If you start having severe abdominal pain, severe vomiting, or bloody diarrhea, you should be reevaluated by your physician or urgent care immediately. Follow up with your Primary Care Provider or return to clinic if symptoms do not improve within 3-5 days. If you develop severe symptoms such as shortness of breath, repeated vomiting, coughing up blood, or chest pain you should go to the emergency room or call 911 Next Appt Details Follow Up: 3-5 days if not i mproving, Reason: Progress Notes * Renu NASH DDOB: [birth year] (44 yo F)Acc No.[id number]:10/26/2024 Progress Note Patient: Naye CÁRDENASmyriam Agudelo Provider: Magnus Wolf ([facility])MD :1980 A ge:44 Y S ex:Female Date:10/26/2024 Address:[address] , [id number] Check In:03:56 PM ESTCheck O ut:04:35 PM EST Subjective: * Chief Complaints: * p olive is co left foot pains, she fell in the shower, foot is swollen and bruise, went to the ER night and wednesday morningAlso is co constant cough keeping her up at night, lasting 1 week * HPI: B ronchitis: The patient complains of symptoms of bronchitis. The symptoms have been present for 1-2 days. The symptoms are moderate. The patient has not been exposed to sick contacts. Symptomatic treatment has included OTC medication. Associated symptoms include nasal congestion, postnasal drainage, congested ears, cough, fever, chills, body aches. * ROS: E NT: Ear pain d enies. H oarseness d enies. ? C ardiovascular: Edema d enies. P alpitations d enies. ? R espiratory: Comments S ee HPI for details. G astrointestinal: Abdominal pain d enies. D iarrhea d enies. N ausea d enies. S kin: Rash d enies. * Active Problem List I21.3 Acute MO Modified On:08/09/2023U Status:confirmed R07.9 Chest pain Modified On:08/20/2023U Status:confirmed M25.519 Shoulder pain Modified On:08/20/2023U Status:confirmed B02.9 Shingles Modified On:07/10/2024U Status:confirmed H60.90 Otitis externa Modified On:07/10/2024U Status:confirmed R09.81 Nasal congestion Modified On:08/18/2024U Status:confirmed J01.90 Acute non-recurrent sinusitis, unspecified location Modified On:08/18/2024U Status:confirmed 250.80 Diabetic foot ulcer Modified On:08/21/2024/U Status:confirmed E11.8 Diabetic foot Modified On:09/01/2024/U Status:confirmed E11.9 Diabetes mellitus Modified On:09/18/2024W/U Status:confirmed L97.419 Chronic ulcer of rig ht heel Modified On:09/25/2024W/U Status:confirmed E11.621 Type 2 diabetes frantz itus with foot ulcer Modified On:09/25/2024/U Status:confirmed * Medical History: * Surgical History: C ardiac Cath- Stent Placement HOLECYSTECTOMY * Hospitalization/Major Diagno stic Procedure: H eart Attack- Stent Placement 12/2022 * Family History: F ather: , coronary artery disease, diagnosed with Diabetes mellitus without mention of complication, type II or unspecified type, not stated as uncontrolled, Chronic kidney disease, unspecified. M other: , Lung cancer. S ister(s): alive. S on(s): alive. 1 sister(s) . 1 son(s) . . * Social History: T obacco Use: T obacco Use/Smoking P atient is a n onsmoker D rug/Alcohol: A ROLO-C (Standard) D id you have a drink containing alcohol in the past year? N o P oints 0 I nterpretation N egative * Medications: T akingAspirin Adult Low Dose(Aspirin) 81 MG Tablet Delayed Release 1 tablet Orally Once a day Atorvastatin Calcium 80 MG Tablet TAKE 1 TABLET BY MOUTH ONCE DAILY Oral Citalopram Hydrobromide 20 MG Tablet 1 tablet Orally Once a day Fluticasone Propionate 50 MCG/ACT Suspension 1 spray in each nostril Nasally twice a day Glucose Meter Test(Glucose Blood) - Strip joao and strips and lancets In Vitro tid , Notes to Pharmacist: needs machine to match stripsIbuprofen 800 MG Tablet 1 tablet with food or milk as needed Orally every 8 hrs Insulin Aspart FlexPen 100 UNIT/ML Solution Pen-injector 30 units Subcutaneous BID Insulin Syringe 31G X 16 1 ML Miscellaneous Use 1 syringe to drawn insulin TID Lisinopril 20 MG Tablet 1 tablet Orally Once a day NovoLOG(Insulin Aspart) 100 UNIT/ML Solution 5 U for every 50 over 150 - max dose is 20 Injection ac Pen Tyler 5/16 31G X 8 MM Miscellaneous as directed Reglan(Metoclopramide HCl) 10 MG Tablet 1 tablet before meals Orally four times daily Medication List reviewed and reconciled with the patientTaking Aspirin Adult Low Dose(Aspirin) 81 MG Tablet Delayed Release 1 tablet Orally Once a day Taking Atorvastatin Calcium 80 MG Tablet TAKE 1 TABLET BY MOUTH ONCE DAILY Oral Taking Citalopram Hydrobromide 20 MG Tablet 1 tablet Orally Once a day Taking Fluticasone Propionate 50 MCG/ACT Suspension 1 spray in each nostril Nasally twice a day Taking Glucose Meter Test(Glucose Blood) - Strip machien and strips and lancets In Vitro tid , Notes to Pharmacist: needs machine to match stripsTaking Ibuprofen 800 MG Tablet 1 tablet with food or milk as needed Orally every 8 hrs Taking Insulin Aspart FlexPen 100 UNIT/ML Solution Pen-injector 30 units Subcutaneous BID Taking Insulin Syringe 31G X 5/16 1 ML Miscellaneous Use 1 syringe to drawn insulin TID Taking Lisinopril 20 MG Tablet 1 tablet Orally Once a day Taking NovoLOG(Insulin Aspart) 100 UNIT/ML Solution 5 U for every 50 over 150 - max dose is 20 Injection ac Taking Pen Tyler 5/16 31G X 8 MM Miscellaneous as directed Taking Reglan(Metoclopramide HCl) 10 MG Tablet 1 tablet before meals Orally four times daily Medication List reviewed and reconciled with the patient * Allergies: P enicillin: rash- childhood - Allergyno[Allergies Verified] Objective: * Vitals: W t:183lbs, Ht: 65 in, BP:132/80mm Hg, Temp:98.7F, BMI:30.45Index, Ht-cm: 165.1 cm, Wt-k.01 kg. * Examination: G eneral Examination: GENERAL APPEARANCE: in no acute distress. EYES: EOMI. EARS: auditory canal clear, middle ear effusion noted.? NOSE: clear discharge, turbinates pale and swollen. ORAL CAVITY: mucosa moist. THROAT: no erythema, post-nasal drainage noted. NECK: neck supple, no thyromegaly. LYMPH NODES: n o cervical adenopathy. LUNGS: unlabored, clear to auscultation bilaterally. CARDIO: n o murmurs, regular rate and rhythm. ABDOMEN: bowel sounds present, no organomegaly . ? Assessment: * Assessment: 1. A cute bronchitis, unspecified organism - J20.9 (Primary) Plan: * Treatment: * Procedure Codes: * Preventive Medicine: Screenings/Counseling: B MO ACTION PLAN Above Normal BMI Follow-up D ietary management education, guidance, and counseling * Follow Up: 3 -5 days if not improving * * Sign off status: Completed Visit Status: C HK (Check Out) true * Provider: Magnus Wolf ([facility])MD Date: 0 10/26/2024 Generated for Miai kenzie/Serge/eTransmitting on: 0 01/08/2025 08:43 PM EDT History and Physical Notes * Examination Category Sub-Category Detail Notes Category Not es General Examination GENERAL APPEARANCE: in no acute di stress EYES: EOMI EARS: auditory canal clear , middle ear effusion noted NOSE: clear discharge, tur binates pale and swollen THROAT: no erythema, post-na avni drainage noted NECK: neck supple, no thyr omegaly CARDIO: no murmurs, regular rate and rhythm LUNGS: unlabored, clear to auscultation bilaterally ABDOMEN: bowel sounds present , no organomegaly LYMPH NODES: no cervical adenopat hy ORAL CAVITY: mucosa moist
--- OUTSIDE RECORDS SUMMARY | 2024-10-26 12:29 | XMS_ITS ---
Author Organization The [facility] in [place] Address [address] [place] [address] Care Team Providers Care Patient Safety Tech Name Role Phone Phillip Wolf Primary Care Provider REASON FOR VISIT ER reports Encounters Encounter Location Date Provider Diagnosis [facility] [address] [place] [address] 10/26/2024 Phillip Wolf Plan Of Treatment No Information Progress Notes * Renu NASH DDOB: [birth year] (44 yo F)Acc No.[id number]:10/26/2024 Patient: Ebony Renu CARLOS :1980 A ge:44 Y S ex:Female Address:[address] [place], [address] * true * Date: Generated for Man espino/Serge/eTransmitting on: 0 01/08/2025 08:43 PM EDT
--- OUTSIDE RECORDS SUMMARY | 2024-12-29 10:46 | XMS_ITS | Continuity of Care Document ---
Author Organization [facility] Address [address] [place] [address] Phone Care Team Providers Care Drop [place]ge Hand Name Role Phone Priscilla Marlow DDS Unavailable Unavailable Allergies, Adverse Reactions, Alerts Substance Reaction Status Criticality Penicillins Unknown Active No Information Medications Medication Instructions Dosage Effective Dates (start - stop) Status Comments metformin 500 mg/5 mL oral solution take 10 milliliter by oral route 2 times every day with meals 1000 MG - Active lisinopril 10 mg tablet take 1 tablet by oral route every day 10 MG - Active Procedures Procedure Date Nutrit Couns For Control Of [place] Dis November Extract; Erupted Th/exposted Rt 025 Extract; Erupted Th/exposted Rt 025 Nutrit Couns For Control [place] Dis November Comp Oral Eval New/estab Patient 2024 Bitewings Four Films Intraoral-periapical 1st Film 5 Bitewig-single Film Oral Hygiene Instruction Limited Oral Eval Extract; Erupted Th/exposted Rt 025 Intraoral-periapical 1st Film Oral Hygiene Instruction Limited Oral Eval Extract; Erupted Th/exposted Rt 024 Nutrit Couns For Control [place] Dis Sep Panoramic Film Intraoral-periapical 1st Film 2 Yrnornfus-xpjzpiowgs-klgp Additional Sep Sfpqurigm-watvboshfz-stgy Additional Sep Comp Oral Eval New/estab Patient 2021 Oral Hygiene Instruction Intraoral-periapical 1st Film 1 Limited Oral Eval Extract; Erupted Th/exposted Rt 021 Advance Directives Directive Yes / No Effective Date File Name No Information Encounters Encounter Description Practice Location Reason(s) For Visit Diagnoses Date Provider Providers Copied on Encounter [facility], [address] [place] [address], [id number], [place] tel:[phone] [facility] Dental Clinic ext (chief complaint) Encounter for screening for dental disorders Marlow DDS Yixue. [address] [place] [address], [id number], [place]. tel:[phone] [facility], [address] [place] [address], [id number], tel:[phone] [facility] Dental Clinic DN (chief complaint) Encounter for screening for dental disorders Marlow DDS Yixue. [address] [place] [address], [id number], [place]. tel:[phone] [facility], [address] [place] [address], [id number], [place] tel:[phone] [facility] Dental [facility] dental limited (chief complaint) Encounter for screening for dental disorders Marlow DDS Yixue. [address] [place] [address], [id number], [place]. tel:[phone] [facility], [address] [place] [address], [id number], [place] tel:[phone] [facility] Dental Clinic Encounter for screening for dental disorders Tino DMD Murtaza. [address] [place], [place], [id number], [place]. tel:[phone] [facility], [address] [place] [address], [id number], [place] tel:[phone] Dental Clinic DN (chief complaint) Encounter for screening for dental disorders Luis Sweeneyry. [address] [place], [place], [id number], [place]. tel:[phone] [facility], [address] [place], [place], [id number], [place] tel:[phone] Dental Clinic DN (chief complaint) Encounter for screening for dental disorders Werner CLAIREVivi Gilbert. [address] [place] [address], [address], [place]. tel:[phone] Family History Family Member Type Diagnosis Age At Onset No Information Payers Payer name Insurance type Covered libertarian ID Alisson fregoso(s) D [facility] Medicaid [facility] [id number] D Medicaid [facility] [id number] Social History Type Description Quantity Date Captured Comments Alcohol Use Details Unknown Caffeine Use Details Unknown Tobacco Use Status Current non-smoker Smoking Status Never smoker Sex Female Sexual Orientation Straight or heterosexual Gender Identity Female Vital Signs Date / Time: Height Weight BMI Pulse Rate Blood Pressure Temperature Respiratory Rate Body Surface Area Head Circumference Head Circ. Percentile Wt./Bang. Percentile BMI percentile Pulse Ox Inhaled Ox 3:26 PM 90 /min 134/84 mm[Hg] 98.60 F Chief Complaint And Reason For Visit From encounter dated '12/29/2024 14:46'. ext (chief complaint) Reason For Referral Reason For Referral No Information Plan Of Treatment Date Type Action Status Goal Depression screening. Due on due Goal Hepatitis C screening. Due o n due Goal Tdap Vaccine. Due on 2024 due Goal Lipid panel. Due on due Goal Influenza vaccine. Due on due Goal HPV. Due on due Goal PRAPARE ASSESSMENT. Due on due Goal Tdap. Due on due Goal Unhealthy drug use screening . Due on due Goal Hep A. Due on du e Goal Tdap Vaccine. Due on 2024 due Goal Influenza vaccine. Due on due Goal Lipid panel. Due on due Goal Unhealthy drug use screening . Due on due Goal Tdap. Due on due Goal Depression screening. Due on due Goal PRAPARE ASSESSMENT. Due on due Goal HPV. Due on due Goal Hepatitis C screening. Due o n due Goal Unhealthy drug use screening . Due on due Goal Tdap. Due on due Goal HPV. Due on due Goal PRAPARE ASSESSMENT. Due on due Goal Influenza vaccine. Due on due Goal Lipid panel. Due on due Goal Hepatitis C screening. Due o n due Goal Depression screening. Due on due Goal Tdap Vaccine. Due on 2024 due Goal Tdap. Due on due Goal Tdap Vaccine. Due on 2023 due Goal Hepatitis C screening. Due o n due Goal Hep A. Due on du e Goal HPV. Due on due Goal Influenza vaccine. Due on Se due Goal Depression screening. Due on due Goal Lipid panel. Due on due Goal Unhealthy drug use screening . Due on due Goal PRAPARE ASSESSMENT. Due on S due Appointment Ready, Renu BOOKED Appointment Ready, Renu BOOKED History Of Present Illness Encounter Date Complaint History Of Prese nt Illness ext DN dental limited dental limited DN DN DN DN Functional Status Date Functional Assessmen t No Information Instructions Date Instruction Additional Infor mation No Information Assessments Type Assessment Date No Information Patient Care Teams Name Effective Dates (start - stop) Status Members No Information
--- OUTSIDE RECORDS SUMMARY | 2025-01-08 15:00 | XMS_ITS | Encounter Summary ---
Author Organization [facility] Address [address] [place] [address] Care Team Providers Care Micropaleontologist Name Role Phone Gentry Wolf MD Primary Care Provider [phone] Reason for Visit * Reason Comments Well Women Visit Encounter Details Date Type Department Care Team (Late st Contact Info) Description 01/08/2025 3:00 PM EDT Office Visit [facility] [address] [facility] [place] [id number] Basia Brandt PA [address] [place] [address] Yeast infection (Primary Dx); Well woman exam with routine gynecological exam; Acute vaginitis Social History Tobacco Use Types Packs/Day Years Used Date Smoking Tobacco: Never Smokeless Tobacco: Never Alcohol Use Standard Drinks/Week Comments Yes 0 (1 standard drink = 0.6 oz pur e alcohol) caffeine: 1-2 cups per day AUDIT-C Answer Date Recorded Q1: How often do you have a drink containing alc ohol? Monthly or less 06/03/2023 Q2: How many drinks containi ng alcohol do you have on a typical day when you are drinking? 1 or 2 06/03/2023 Q3: How often do you have si x or more drinks on one occasion? Never 06/03/2023 Comments Unknown Sex and Gender Information Value Date Recorded Sex Assigned at Not on file Legal Sex Female 7:17 PM EDT Gender Identity Not on file Sexual Orientation Not on file documented as of this encounter Last Filed Vital Signs Vital Sign Reading Time Taken Comments Blood Pressure 120/76 01/08/2025 3:08 PM EDT Pulse - - Temperature - - Respiratory Rate - - Oxygen Saturation - - Inhaled Oxygen Concentration - - Weight 80.5 kg (177 lb 6.4 oz) 01/08/2025 3:08 P M EDT Height - - Body Mass Index 31.42 06/15/2022 12:00 PM EST documented in this encounter Progress Notes * Celeste Kaye, BLACK TOP MACHINE OPERATOR - 01/08/2025 3:00 PM EDT Reason for Appointment: Patient ID: Renu Ortega is a 44 y.o. female who presents for [facility] Women Visit Patient presents today for Annual Exam. MEDICATIONS No current outpatient medications ALLERGIES Allergies Allergen Reactions Penicillins Rash, Hives and Unknown Other Reaction(s): Other PROBLEMS Active Ambulatory Problems Diagnosis Date Noted No Active Ambulatory Problems Resolved Ambulatory Problems Diagnosis Date Noted No Resolved Ambulatory Problems Past Medical History: Diagnosis Date Diabetes mellitus (CMS/HCC) HTN (hypertension) ([facility]) HISTORY PAST MEDICAL HISTORY SOCIAL HISTORY Past Medical History: Diagnosis Date Diabetes mellitus (CMS/[facility]) HTN (hypertension) ([facility]) Social History Tobacco Use Smoking status: Never Smokeless tobacco: Never Substance Use Topics Alcohol use: Yes Comment: caffeine: 1-2 cups per day Drug use: Never FAMILY HISTORY Family History Problem Relation Name Age of Onset Lung cancer Mother Heart disease Mother Diabetes Father Hypertension Father No Known Problems Sister SURGICAL HISTORY Past Surgical History: Procedure Laterality Date CHOLECYSTECTOMY REVIEW OF SYSTEMS Review of Systems: Review of Systems Constitutional: Negative. HENT: Negative. Eyes: Negative. Respiratory: Negative. Cardiovascular: Negative. Gastrointestinal: Negative. Genitourinary: Positive for vaginal discharge. Vaginal itching Musculoskeletal: Negative. Skin: Negative. Neurological: Negative. All other systems reviewed and are negative. Hematological: Negative. Endocrine: Negative. Allergic/Immunologic: Negative. OBJECTIVE Objective: Physical Exam Constitutional: Appearance: Normal appearance. She is well-developed. Genitourinary: Vulva normal. Genitourinary Comments: Findings consistent with vaginal brendon Cervical discharge present. Breasts: Breasts are soft. Right: Normal. Left: Normal. Cardiovascular: Rate and Rhythm: Normal rate and regular rhythm. Pulmonary: Effort: Pulmonary effort is normal. Breath sounds: Normal breath sounds. Abdominal: General: Bowel sounds are normal. There is no distension. Palpations: Abdomen is soft. Tenderness: There is no abdominal tenderness. There is no guarding or rebound. Musculoskeletal: General: No swelling. Normal range of motion. Right lower leg: No edema. Left lower leg: No edema. Neurological: Mental Status: She is alert and oriented to person, place, and time. Skin: General: Skin is warm and dry. Psychiatric: Mood and Affect: Mood normal. Behavior: Behavior normal. Vitals and nursing note reviewed. Exam conducted with a bridge expert present. Vitals: Estimated body mass index is 31.42 kg/m?? as calculated from the following: Height as of 06/15/22: 5' 3 . Weight as of this encounter: 177 lb 6.4 oz. BP: 120/76 No LMP recorded. ASSESSMENT & PLAN ICD-10-CM 1. Well woman exam with routine gynecological exam Z01.419 Annual Exam: Patient presents today for an annual exam. Patient states she is doing well and has no complaints. Pap was obtained without difficulty. Sending in a urine culture due to dysuria. No orders of the defined types were placed in this encounter. Follow Up: Patient is to return in one year for annual unless needed otherwise. Documented by Celeste Kaye LPN on behalf of: MERLE Mendoza documented in this encounter Plan of Treatment Upcoming Encounters Date Type Department Care Team (Late st Contact Info) Description 01/14/2026 3:00 PM EDT Office Visit [facility] [address] [facility] [place] [phone] Leland Claros, DO [address] [place], [place] [id number] documented as of this encounter Visit Diagnoses Diagnosis Yeast infection- Primary Well woman exam with routine gynecological exam Routine gynecological examination Acute vaginitis Unspecified vaginitis and vulvovaginitis documented in this encounter Care Teams Micropaleontologist Relationship Specialty Start Date End Date Gentry Wolf MD [address] [place] [address] PCP - General Family Medicine 11/16/24 documented as of this encounter
--- OUTSIDE RECORDS SUMMARY | 2025-01-08 20:43 | XMS_ITS | Patient Health Record ---
Author Organization [facility] [place] Address [address] [place] [address] Care Team Providers Care Code Inspector Name Role Phone Varinderjessica Phillip Primary Care Provider [phone] Allergies Allergen (clinical drug ingredient) Drug/Non Drug Allergy documented on EMR Reaction Allergy Type Onset Date Status Penicillin rash- childhood Drug Allergy Active Reason For Referral Reason Wound clinic Diagnosis 1 Diabetic foot ulcer (250.80) [facility] Referring Provider First Name Phillip Referring Provider Last Name Luciano Referring Provider Speciality Family Med icine Referred Provider [facility] Referred Provider Specialty Clinic or [facility] practice Referral Priority Routine Medications Medication SIG (Take, Route, Frequency, Duration) Notes Start Date End Date Status Insulin Aspart FlexPen 100 UNIT/ML 30 units Subcutaneous BID for 30 days 09/19/2024 Active Ibuprofen 800 MG 1 tablet with food o r milk as needed Orally every 8 hrs 09/18/2024 Active Lisinopril 20 MG 1 tablet Orally Once a day Active Insulin Syringe 31G X 16 1 ML Use 1 syringe to drawn insulin TID for 90 days 09/01/2024 Active Pen Cresco 16 31G X 8 MM as directed Active Cetirizine HCl 10 MG 1 tablet Orally Onc e a day for 30 days 10/26/2024 Active NovoLOG 100 UNIT/ML 5 U for every 50 ove r 150 - max dose is 20 Injection ac 08/31/2024 Active levoFLOXacin 500 MG 1 tablet Orally Once a day for 10 day(s) 10/26/2024 Active Atorvastatin Calcium 80 MG TAKE 1 TABLET BY MOUTH ONCE DAILY Oral for 30 Days Active Aspirin Adult Low Dose 81 MG 1 tablet Orally Once a day Active Reglan 10 MG 1 tablet before meal s Orally four times daily Active Fluticasone Propionate 50 MCG/ACT 1 spray in each nostril Nasally twice a day Active Citalopram Hydrobromide 20 MG 1 tablet Orally Once a day Active Glucose Meter Test - machien and strips and lancets In Vitro tid needs machine to match strips 08/31/2024 Active Social History Tobacco Use: Social History Observation Description Date Details (start date - stop date) Never Smoker NA - NA Tobacco Use/Smoking Question Answer Notes Patient is a nonsmoker Alcohol Screen (Audit-C) Question Answer Notes Did you have a drink containing alcohol in the p ast year? No Points 0 Interpretation Negative AUDIT-C (Standard) Question Answer Notes Did you have a drink containing alcohol in the p ast year? No Points 0 Interpretation Negative Problems Problem Type SNOMED Code ICD Code Onset Dates Problem Status W/U Status Risk Notes Problem Foot ulcer due to type 2 diabetes mellitus (6433594071262) Type 2 diabetes mellitus with foot ulcer (E11.621) Active confirmed Problem 08216949 Nasal congestion (R09.81) Active confirmed Problem Chest pain (11655972) Chest pain (R07.9) Active confirmed Problem Shoulder pain (20693575) Shoulder pain (M25.519) Active confirmed Problem Shingles (7474658) Shingles (B02.9) Active confirmed Problem Diabetic foot (169342345) Diabetic foot (E11.8) Active confirmed Problem Otitis externa (7704232) Otitis externa (H60.90) Active confirmed Problem Acute myocardial infarction (71463291) Acute ME (I21.3) Active confirmed Problem Chronic ulcer of right heel (62639230271027 102) Chronic ulcer of right heel (L97.419) Active confirmed Problem 31126949 Acute non-recurrent sinusitis, unspecified location (J01.90) Active confirmed Problem Diabetes mellitus (85686269) Diabetes mellitus (E11.9) Active confirmed Problem 043493191 Diabetic foot ulcer (250.80) Active confirmed Vital Signs Temperature 98.7 degrees Fahrenheit 10/26/2024 Blood pressure diastolic 80 mm Hg 10/26/2024 Height 65 in 10/26/2024 Blood pressure systolic 132 mm Hg 10/26/2024 Weight 183 lbs 10/26/2024 BMI 30.45 kg/m2 10/26/2024 Encounters Encounter Location Date Provider Diagnosis [facility] [address] [place] [address] 08/25/2024 Phillip Reedery [facility] [address] [place] [address] 09/01/2024 Phillip Reedery [facility] [address] [place] [address] 09/11/2024 Phillip Hoy [facility] [address] [place] [address] 09/19/2024 Phillip Hoy Diabetes mellitus E1 1.9 [facility] [address] [place] [address] 10/26/2024 Phillip Reedery [facility] [address] [place] [address] 07/10/2024 Phillip Hoy Shingles B02.9 and Otitis externa H60.90 [facility] [address] [place] [address] 08/18/2024 Phillip Hoy Acute non-recurrent sinusitis, unspecified location J01.90 ; Nasal congestion R09.81 and Shingles B02.9 [facility] [address] [facility] [place] [address] 08/21/2024 Phillip Hoy Diabetic foot ulcer 250.80 [facility] [address] [place] [address] 06/19/2024 Phillip Hoy Acute non-recurrent sinusitis, unspecified location J01.90 and Nasal congestion R09.81 [facility] [address] [place] [address] 08/31/2024 Phillip Hoy Diabetic foot ulcer 250.80 and Diabetic foot E11.8 [facility] [address] [place] [address] 09/18/2024 Phillip Hoy Diabetes mellitus E1 1.9 [facility] [address] [place] [address] 10/26/2024 Phillip Hoy Acute bronchitis, unspecified organism J20.9 Assessments Encounter Date Diagnosis (ICD Code) Assessment Notes Treatment Notes Treatment Clinical Notes Section Notes 06/19/2024 Acute non-recurrent sinusitis, unspecified location (ICD-10 - J01.90) Rest and drink more liquids, especially water. You may use a humidifier or vaporizer to help keep the drainage moist. Ntak-pvb-hkriqtk Nasal Saline may help the stuffy and runny nose. Use Ibuprofen and or Tylenol as needed for fever, chills, body aches or pain. Children 5 years old should not be given hnif-ryr-mubuvsm cough and cold medications such as guaifenesin and dextromethorphan. If you're over age 5, you may try jwbe-rdm-uvzdxuk cold medications such as guaifenesin and dextromethorphan, [...] if symptoms do not improve within 3-5 days 07/10/2024 Shingles (ICD-10 - B02.9) 07/10/2024 Otitis externa (ICD-10 - H60.90) 08/18/2024 Acute non-recurrent sinusitis, unspecified location (ICD-10 - J01.90) Rest and drink more liquids, especially water. You may use a humidifier or vaporizer to help keep the drainage moist. Yoxr-uat-yhnvtsa Nasal Saline may help the stuffy and runny nose. Use Ibuprofen and or Tylenol as needed for fever, chills, body aches or pain. Children 5 years old should not be given dmkg-kcj-euxyunc cough and cold medications such as guaifenesin and dextromethorphan. If you're over age 5, you may try njfs-rhv-iipireh cold medications such as guaifenesin and dextromethorphan, [...] if symptoms do not improve within 3-5 days 08/18/2024 Nasal congestion (ICD-10 - R09.81) 08/21/2024 Diabetic foot ulcer (ICD9-CM - 250.80) 08/31/2024 Diabetic foot ulcer (ICD9-CM - 250.80) 08/31/2024 Diabetic foot (ICD-10 - E11.8) 09/18/2024 Diabetes mellitus (ICD-10 - E11.9) 10/26/2024 Acute bronchitis, unspecified organism (ICD-10 - J20.9) Rest and drink more liquids, especially water. You may use a humidifier or vaporizer to help keep the drainage moist. Tgys-opz-ukgmrww Nasal Saline may help the stuffy and runny nose. Use Ibuprofen and or Tylenol as needed for fever, chills, body aches or pain. Children 5 years old should not be given ihzg-jzw-pvdeiki cough and cold medications such as guaifenesin and dextromethorphan. If you're over age 5, you may try joeu-nwg-krvsiqz cold medications such as guaifenesin and dextromethorphan, [...] to the emergency room or call 911 09/19/2024 Diabetes mellitus (ICD-10 - E11.9) 08/18/2024 Shingles (ICD-10 - B02.9) 06/19/2024 Nasal congestion (ICD-10 - R09.81) Plan Of Treatment No Information Insurance Providers Payer Name Payer Address Payer Phone Subscriber Number Group Number Insured Name Patient Relationship to Insured Coverage Start Date Coverage End Date [employer] [place] [employer] [address] [place] [phone] [id number] Renu Ortega Self - patient is the insured 4 Medical (General) History Medical History History ICD Code Diabetes mellitus E11.9 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
--- OUTSIDE RECORDS SUMMARY | 2025-01-08 20:43 | XMS_ITS | Clinical Summary ---
Author Organization [facility] Address [address] [place] [address] Care Team Providers Care Boat Rental Clerk Name Role Phone Gentry Wolf MD Primary Care Provider [phone] Allergies Active Allergy Reactions Criticality Noted Date Comments Penicillins 07/09/2024 Medications aspirin 81 MG chewable tablet Take 1 tablet by mouth daily Active citalopram (CELEXA) 20 MG tablet Take 1 tablet by mouth daily Active lisinopril (PRINIVIL;ZESTR IL) 20 MG tablet Take 1 tablet by mouth daily Active cetirizine (ZYRTEC) 10 MG tablet Take 1 tablet by mouth daily Active glimepiride (AMARYL) 4 MG tablet Take 1 tablet by mouth every morning (before breakfast) Active metoprolol tartrate (LOPRESSOR) 25 MG tablet Take 1 tablet by mouth 2 times daily Active ticagrelor (BRILINTA) 90 MG TABS tablet Take 1 tablet by mouth 2 times daily Active fluticasone (FLONASE) 50 MCG/ACT nasal spray 1 spray by Each Nostril route daily as needed for Rhinitis Active hydrOXYzine HCl (ATARAX) 25 MG tablet Take 1 tablet by mouth 2 times daily as needed for Itching Active atorvastatin (LIPITOR) 80 MG tablet Take 1 tablet by mouth daily Please hold for the time you are taking antiviral 30 tablet 4 Active naproxen (NAPROSYN) 375 MG tablet Take 1 tablet by mouth 2 times daily as needed for Pain 20 tablet 4 Active labetalol (NORMODYNE) 200 MG tablet Take 1.5 tablets by mouth 3 times daily Active Insulin Glargine (BASAGLAR KWIKPEN SC) Inject 30 Units into the skin at bedtime Active acetaminophen (TYLENOL) 500 MG tablet Take 1 tablet by mouth 4 times daily as needed for Pain 360 tablet 1 Active Social History Tobacco Use Types Packs/Day Years Used Date Smoking Tobacco: Never Passive Smoke Exposure: Never Smokeless Tobacco: Never Tobacco Cessation:Counseling Given: Not Answered Alcohol Use Standard Drinks/Week Comments Never 0 (1 standard drink = 0.6 oz pur e alcohol) AUDIT-C Answer Date Recorded Q1: How often do you have a drink containing alcohol? Never 10/04/2024 Q2: How many drinks containi ng alcohol do you have on a typical day when you are drinking? Patient does not drink Q3: How often do you have si x or more drinks on one occasion? Never 10/04/2024 Interpersonal Safety Domain Source: IP Abuse Scr eening Answer Date Recorded Physical abuse Denies 07/09/2024 Verbal abuse Denies 07/09/2024 Emotional abuse Denies 07/09/2024 Financial abuse Denies 07/09/2024 Sexual abuse Denies 07/09/2024 Comments No Sex and Gender Information Value Date Recorded Sex Assigned at Female 07/09/2024 8:34 AM EST Legal Sex Female 8:28 AM EST Gender Identity Female 07/09/2024 8:34 AM EST Sexual Orientation Not on file Last Filed Vital Signs Vital Sign Reading Time Taken Comments Blood Pressure 160/92 10/04/2024 7:29 AM EST Pulse 116 10/04/2024 7:29 AM EST Temperature 36.8 C (98.2 F) 10/04/2024 7:29 AM EST Respiratory Rate 20 10/04/2024 7:29 AM EST Oxygen Saturation 96% 10/04/2024 7:29 AM EST Inhaled Oxygen Concentration - - Weight 78 kg (172 lb) 10/04/2024 7:29 AM EST Height 165.1 cm (5' 5 ) 10/04/2024 7:29 AM EST Body Mass Index 28.62 10/04/2024 7:29 AM EST Plan of Treatment Health Maintenance Due Date Last Done Comments DTaP/Tdap/Td vaccine (1 - Tdap) 1997 COVID-19 Vaccine (2023-2 5 season) 2024 Flu vaccine (Season Ended) 2025 Polio vaccine Aged Out No longer carina alvarez based on patient's age to complete this topic Insurance [facility] [place] Care Teams Boat Rental Clerk Relationship Specialty Start Date End Date Gentry Wolf MD [address] [place] [address] PCP - General Family Medicine 07/09/24
--- OUTSIDE RECORDS SUMMARY | 2025-01-08 20:43 | XMS_ITS | Referral Summary ---
Author Organization [facility] Address [address] [place] [address] Care Team Providers Care Molder Apprentice Name Role Phone Gentry Wolf MD Primary Care Provider [phone] Allergies Active Allergy Reactions Criticality Noted Date Comments Penicillins Hives,Other 05/26/2019 Medications Medication Sig Dispensed Refills Start Date End Date Status aspirin 81 mg EC tablet Take 81 mg by mouth in the morning. 01/23/2023 Active atorvastatin (Lipitor) 80 mg tablet Take 80 mg by mouth at bedtime. 01/23/2023 Active cetirizine (ZyrTEC) 10 mg tablet Take 10 mg by mouth in the morning. 10/19/2022 Active citalopram (CeleXA) 20 mg tablet Take 20 mg by mouth in the morning. 10/19/2022 Active glimepiride (Amaryl) 4 mg tablet Take 4 mg by mouth in the morning. 10/19/2022 Active Lantus Solostar U-100 Insulin 100 unit/mL (3 mL) pen INJECT 20 UNITS SUBCUTANEOUSLY EVERY NIGHT 10/19/2022 Active insulin glargine (Basaglar KwikPen U-100 Insulin) 100 unit/mL (3 mL) pen Inject 20 units Subcutaneous every evening Active lisinopril 20 mg tablet Take 20 mg by mouth in the morning. 10/19/2022 Active metFORMIN (Glucophage) 500 mg tablet Take 500 mg by mouth in the morning and at bedtime. 10/19/2022 Active metoprolol tartrate (Lopressor) 25 mg tablet Take 25 mg by mouth in the morning and at bedtime. 01/23/2023 Active metoclopramide (Reglan) 10 mg tablet 1 tablet before meals Orally four times daily Active nitroglycerin (Nitrostat) 0.[address] 1 tablet under the tongue if needed every 5 minutes for chapincito... (REFER TO PRESCRIPTION NOTES). 01/23/2023 Active Brilinta 90 mg tablet Take 90 mg by mouth in the morning and at bedtime. 01/25/2023 Active Active Problems Problem Noted Date Diagnosed Date Acute myocardial infarction 02/05/2023 07/0 01/2023 Chronic hypertension complic ating or reason for care during , first trimester 06/22/2019 02/05/2023 History of unexplained stillbirth 06/22/2019 02/05/2023 Type 2 diabetes mellitus com plicating in first trimester, antepartum 06/22/2019 02/05/2023 Social History Tobacco Use Types Packs/Day Years Used Date Smoking Tobacco: Never Smokeless Tobacco: Never Tobacco Cessation:Counseling Given: Not Answered Alcohol Use Standard Drinks/Week Comments Yes 0 (1 standard drink = 0.6 oz pur e alcohol) socially [place] Safety & Environment Answer Date Rec orded Fear of Current or Ex-Partner Not on file Emotionally Abused Not on file 09/24/2023 Physically Abused Not on file 09/24/2023 Sexually Abused Not on file 09/24/2023 Physically or Sexually Abused Not on file Sex and Gender Information Value Date Recorded Sex Assigned at Not on file Gender Identity Not on file Sexual Orientation Not on file Last Filed Vital Signs Vital Sign Reading Time Taken Comments Blood Pressure 128/87 02/05/2023 11:45 AM EDT Pulse 102 02/05/2023 11:45 AM EDT Temperature - - Respiratory Rate - - Oxygen Saturation 97% 02/05/2023 11:45 AM EDT Inhaled Oxygen Concentration - - Weight 83.5 kg (184 lb) 02/05/2023 11:45 AM EDT Height 165.1 cm (5' 5 ) 02/05/2023 11:45 AM EDT Body Mass Index 30.62 02/05/2023 11:45 AM EDT Plan of Treatment Not on file Care Teams Molder Apprentice Relationship Specialty Start Date End Date Gentry Wolf MD [address] [facility] [address] [address] PCP - General 02/04/23
--- OUTSIDE RECORDS SUMMARY | 2025-01-08 20:43 | XMS_ITS | Clinical Summary ---
Author Organization [facility] Address [address] [place] [address] Care Team Providers Care Attorney Lawyer Name Role Phone Gentry Wolf MD Primary Care Provider [phone] Allergies Active Allergy Reactions Criticality Noted Date [...] Date Diagnosed Date Acute myocardial infarction 02/05/2023 070 01/2023 Chronic hypertension complic ating or reason for care during , first trimester 06/22/2019 02/05/2023 History of unexplained stillbirth 06/22/2019 02/05/2023 Type 2 diabetes mellitus com plicating in first trimester, antepartum 06/22/2019 02/05/2023 Family History Medical History Relation Name Comments Coronary artery disease Father Diabetes Father Kidney disease Father Relation Name Status Comments Father Social History Tobacco Use Types Packs/Day Years [...] 02/05/2023 11:45 AM EDT Plan of Treatment Health Maintenance Due Date Last Done Comments CT Colonography 1978 Colonoscopy 1978 Colorectal Cancer Screening 1978 FIT-DNA 1978 FIT 1978 FOBT 1978 Sigmoidoscopy 1978 Pneumococcal Vaccine: Pediat rics (0 to 5 Years) and At-Risk Patients (6 to 64 Years) (1 of 2 - PCV) 01/21/1984 Depression Screening 1990 Hepatitis B Vaccines (1 of 3 - 19+ 3-dose series) 1997 Pap Smear 1999 Adult Tetanus 01/21/2000 Cervical Cancer Screening 01/21/2008 HPV/Cotest 01/21/2008 Mammogram 2018 COVID-19 Vaccine ( - 2023-2 5 season) 2024 Influenza Vaccine (Season Ended) 2025 Zoster Vaccines (1 of 2) 01/21/2028 HIB Vaccines Aged Out No longer eligi ble based on patient's age to complete this topic HPV Vaccines Aged Out No longer eligi ble based on patient's age to complete this topic IPV Vaccines Aged Out No longer eligi ble based on patient's age to complete this topic Meningococcal B Vaccine Aged Out No l onger eligible based on patient's age to complete this topic Meningococcal Vaccine Aged Out No katelynn hyacinth eligible based on patient's age to complete this topic Rotavirus Vaccines Aged Out No longer eligible based on patient's age to complete this topic Care Teams Attorney Lawyer Relationship Specialty Start Date End Date Gentry Wolf MD [address] [facility] [address] [place], [place] [id number] PCP - General 02/04/23
--- OUTSIDE RECORDS SUMMARY | 2025-01-08 20:43 | XMS_ITS | Clinical Summary ---
Author Organization [facility] Address [id number] [address] [place] [address] Care Team Providers Care Community Associate Name Role Phone Gentry Wolf MD Primary Care Provider [phone] Allergies Active Allergy Reactions Criticality Noted Date Comments Penicillins Hives 05/26/2019 Medications labetalol (NORMODYNE) 200 mg tablet Take 300 mg by mouth 3 (three) times a day. Active aspirin 81 mg Take 81 mg by mouth daily. Active PNV [id number] 1-DSS-DHA ORAL Take 1 tablet by mouth Daily at 0700. Active blood-glucose meter miscIndications :Pre-existing type 2 diabetes mellitus in in first trimester One Touch Verio Flex Meter. Use to test blood sugars 4-5 times per day 1 each 05/29/2019 Active lancets (ONETOUCH DELICA LANCETS) 33 gauge miscIndications :Pre-existing type 2 diabetes mellitus in in first trimester 33 gauge Delica Lancets, use 1 lancet to test blood sugars 4-5 times per day 100 each 10 07/07/2019 Active insulin syringe-needle U-100 0.3 mL 31 gauge x 5/16 syringeIndicati ons:Pre-existin g type 2 diabetes mellitus during in second trimester Use 4 syringes daily. 100 each 6 07/28/2019 Active cetirizine (ZyrTEC) 10 mg tablet Take 10 mg by mouth daily. Active insulin lispro (ADMELOG U-100 INSULIN LISPRO) 100 unit/mL injectionIndica tions:Pre-exist ing type 2 diabetes mellitus during in second trimester Inject 6 units sq 15 minutes before breakfast, 9 units sq 15 minutes before lunch and 18 units sq 15 mins before supper 1 Box 8 11/09/2019 Active insulin NPH (HumuLIN N,NovoLIN N) 100 unit/mL injectionIndica tions:Pre-exist ing type 2 diabetes mellitus during in second trimester Inject SQ as directed 20 units daily at bedtime 1 pen 8 11/09/2019 Active blood sugar diagnostic stripIndication s:Pre-existing type 2 diabetes mellitus in in first trimester Blood sugar strips for One Touch Verio Flex Meter, use 1 strip to test blood sugars 4-5 times per day 150 strip 8 08/26/2020 Active pen needle, diabetic ([employer] ULTRA-FINE SHORT PEN NEEDLE) 31 gauge x 5/16 needleIndicatio ns:Pre-existing type 2 diabetes mellitus in in first trimester USE DIRECTED WITH BASAGLAR ONCE A DAY 100 each 10 12/03/2020 Active Active Problems Problem Noted Date Diagnosed Date History of unexplained stillbirth 06/22/2019 Chronic hypertension complic ating or reason for care during , first trimester 06/22/2019 Type 2 diabetes mellitus com plicating in first trimester, antepartum 06/22/2019 Family History Medical History Relation Name Comments Diabetes Father Hyperlipidemia Father Hypertension Father Heart disease Maternal Grandfather Alzheimer's disease Maternal Grandmother Diabetes Maternal Grandmother Hypertension Maternal Grandmother Cancer Mother Heart disease Paternal Grandfather Cancer Paternal Grandmother Hypertension Paternal Grandmother Relation Name Status Comments Father Alive Maternal Grandfather Maternal Grandmother Mother Paternal Grandfather Paternal Grandmother Social History Tobacco Use Types Packs/Day Years Used Date Smoking Tobacco: Never Smokeless Tobacco: Never Childcare Answer Date Recorded Childcare Unknown 05/22/2019 Employment Answer Date Recorded Employment Unknown 05/22/2019 Purpose - Life Answer Date Recorded Purpose and direction in life Unknown Comments No Sex and Gender Information Value Date Recorded Sex Assigned at Not on file Legal Sex Female 11:32 AM EDT Gender Identity Not on file Sexual Orientation Not on file Last Filed Vital Signs Vital Sign Reading Time Taken Comments Blood Pressure 126/73 10/03/2019 1:31 PM EST Pulse 87 10/03/2019 1:31 PM EST Temperature - - Respiratory Rate - - Oxygen Saturation - - Inhaled Oxygen Concentration - - Weight 101 kg (222 lb 10.6 oz) 10/03/2019 1:31 P M EST Height 162.6 cm (5' 4 ) 10/03/2019 1:31 PM EST Body Mass Index 38.22 10/03/2019 1:31 PM EST Plan of Treatment Health Maintenance Due Date Last Done Comments Diabetic Ophthalmology Exam 1978 Depression Screening 1990 Tobacco Screening 1990 Adult BMI Screening 01/21/1996 Diabetic Foot Exam 01/21/1996 DTaP,Tdap and Td Vaccines (1 - Tdap) 1997 Pap Smear 1999 Influenza Vaccine 04/02/2025 Medical Devices Not on file [place] [address] MEDICAID Care Teams Community Associate Relationship Specialty Start Date End Date Gentry Wolf MD PCP - General Family Medicine 06/22/19
--- OUTSIDE RECORDS SUMMARY | 2025-01-08 20:43 | XMS_ITS | Encounter Summary ---
Author Organization [facility] tem Address [id number] [address] [place] [address] Care Team Providers Care Liner Roll Changer Name Role Phone Gentry Wolf MD Primary Care Provider [phone] Reason for Visit * Reason Comments Med Refill Encounter Details Date Type Department Care Team (Late st Contact Info) Description 05/12/2022 Refill Maternal- Medicine at [facility] [address] [place] [id number] Eddie Rios MD [address] [facility], [address] [place] [address] Pre-existing type 2 diabetes mellitus during in second trimester Social History Tobacco Use Types Packs/Day Years [...] on file documented as of this encounter Plan of Treatment Not on file documented as of this encounter Visit Diagnoses Diagnosis Pre-existing type 2 diabetes mellitus during in second trimester documented in this encounter Additional Health Concerns Assessment Noted Time A Body Mass Index follow-up plan has been documented for the patient 11/15/2019 10:57 AM EDT documented as of this encounter Care Teams Liner Roll Changer Relationship Specialty Start Date End Date Gentry Wolf MD PCP - General Family Medicine 06/22/19 documented as of this encounter
--- OUTSIDE RECORDS SUMMARY | 2025-01-08 20:44 | XMS_ITS | Encounter Summary ---
Author Organization [facility] Address [address] [facility] [place] [address] Care Team Providers Care Police Liaison Officer Name Role Phone Gentry Wolf MD Primary Care Provider [phone] Encounter Details Date Type Department Care Team (Late Contact Info) Description 01/08/2025 Bamboo flowsheet [facility] [address] [facility] [place] [address] Basia Brandt PA [address] [facility] [address] [place], [facility] Social History Tobacco Use Types Packs/Day Years [...] as of this encounter Plan of Treatment Upcoming Encounters Date Type Department Care Team (Late st Contact Info) Description 01/14/2026 3:00 PM EDT Office Visit [facility] [address] [place] [phone] Leland Claros DO [address] [place], [place] [id number] documented as of this encounter Visit Diagnoses Not on filedocumented in this encounter Care Teams Police Liaison Officer Relationship Specialty Start Date End Date Gentry Wolf MD [address] [facility] [place] [address] PCP - General Family Medicine 11/16/24 documented as of this encounter
--- OUTSIDE RECORDS SUMMARY | 2025-01-08 20:44 | XMS_ITS | Encounter Summary ---
Author Organization [facility] tem Address [id number] [address] [place] [address] Care Team Providers Care Cat Hooker Name Role Phone Gentry Wolf MD Primary Care Provider [phone] Reason for Visit * Reason Onset Date Comments Med Refill Med Refill 12/03/2020 Encounter Details Date Type Department Care Team (Late st Contact Info) Description 11/27/2020 Refill Maternal- Medicine at [facility] [address] [place] [address] Marianne Medeiros M, ELECTRICAL TESTER-PELLET MACHINE OPERATOR [address] [facility] [address] [place] [address] Pre-existing type 2 diabetes mellitus in in first trimester Social History Tobacco Use Types Packs/Day [...] Diagnoses Diagnosis Pre-existing type 2 diabetes mellitus in in first trimester documented in this encounter Additional Health Concerns Assessment Noted Time A Body Mass Index follow-up plan has been documented for the patient 11/15/2019 10:57 AM EDT documented as of this encounter Care Teams Cat Hooker Relationship Specialty Start Date End Date Gentry Wolf MD PCP - General Family Medicine 06/22/19 documented as of this encounter
--- OUTSIDE RECORDS SUMMARY | 2025-01-08 20:44 | XMS_ITS | Clinical Summary ---
Author Organization [facility] Address [address] [place] [address] Care Team Providers Care Med Asst Name Role Phone Gentry Wolf MD Primary Care Provider [phone] Allergies Active Allergy Reactions Criticality Noted Date Comments Penicillins Rash,Hives,Unknown Low 05/26/2019 Other Reaction(s): Other Medications fluconazole (Diflucan) 150 MG tabletIndicatio ns:Yeast infection Take 1 tablet (150 mg) by mouth 1 (one) time for 1 dose This is a 1 time dose, take single tablet by mouth. 1 tablet 1 5 01/09/20 25 Active terconazole (Terazol 7) 0.4 % vaginal creamIndication s:Yeast infection Insert 1 applicator into the vagina at bedtime for 7 days 45 g 5 01/16/20 25 Active Encounters Date Type Department Care Team Description 01/08/2025 3:00 PM EDT Office Visit [facility] [address] [place] [address] Basia Brandt PA Yeast infection (Primary Dx); Well woman exam with routine gynecological exam; Acute vaginitis 01/08/2025 Bamboo flowsheet [facility] [address] [place] [address] Basia Brandt PA 01/08/2025 Travel from Last 3 Months Family History Medical History Relation Name Comments Diabetes Father Hypertension Father Heart disease Mother Lung cancer Mother No Known Problems Sister Relation Name Status Comments Father Mother Sister Social History Tobacco Use Types Packs/Day Years [...] oz) 01/08/2025 3:08 P M EDT Height 160 cm (5' 3 ) 06/15/2022 12:00 PM EST Body Mass Index 31.42 06/15/2022 12:00 PM EST Plan of Treatment Upcoming Encounters Date Type Department Care Team (Late st Contact Info) Description 01/14/2026 3:00 PM EDT Office Visit [facility] [address] [place] [address] Leland Claros, DO [address] [place] [address] Insurance [employer] MEDICAID Care Teams Med Asst Relationship Specialty Start Date End Date Gentry Wolf MD [address] [place] [phone] PCP - General Family Medicine 11/16/24
--- OUTSIDE RECORDS SUMMARY | 2025-01-08 20:44 | XMS_ITS | Encounter Summary ---
Author Organization [facility] Address [address] [facility] [place] [address] Care Team Providers Care Daycare Director Name Role Phone Gentry Wolf MD Primary Care Provider [phone] Encounter Details Date Type Department Care Team (Latest Contact Info) Description 01/08/2025 Travel Social History Tobacco Use Types Packs/Day Years [...] EDT Office Visit [facility] [address] [place] [phone] Leland Claros, DO [address] [place] [address] documented as of this encounter Visit Diagnoses Not on filedocumented in this encounter Care Teams Daycare Director Relationship Specialty Start Date End Date Gentry Wolf MD [address] [place] [address] PCP - General Family Medicine 11/16/24 documented as of this encounter
[2025-01-11 17:08] LABS: Age Gdln ACOG Testing Note (.); HPV Aptima Negative (Negative); IGP, Aptima HPV, rfx 16/18,45 Note (.)
== END 2025-01-08 20:40 | disposition home or self-care (01) ==
LOC: LAB 20:39
PROVIDERS: PCP Family Medicine; Visit Provider Physician Assistant
DX: Z01.419 Encounter for gynecological examination (general) (routine) without abnormal findings (principal)
CPT/HCPCS: 87624; 88175

== ENCOUNTER 2025-02-15 09:03 | Outpatient (OUT) | payer OTHER, SELFPAY ==
--- OUTSIDE RECORDS SUMMARY | 2025-01-12 10:42 | XMS_ITS | Continuity of Care Document ---
Author Organization [facility] Address [address] [place] [address] Phone Care Team Providers Care Composition Professor Name Role Phone Priscilla Marlow DDS Unavailable [...] 10 MG - Active Procedures Procedure Date Extract; Erupted Th/exposted Rt Extract; Erupted Th/exposted Rt Extract; Erupted Th/exposted Rt 025 Alveoloplasty W/extractions 1 - 3 Teeth Oral Hygiene Instruction Nutrit Couns For Control Of [place] Dis November Extract; Erupted Th/exposted Rt 025 Extract; Erupted Th/exposted Rt Nutrit Couns For Control Of [place] Dis November Comp Oral Eval New/estab Patient 2024 Bitewings Four Films Intraoral-periapical 1st Film 5 Bitewig-single Film Oral Hygiene Instruction Limited Oral Eval Extract; Erupted Th/exposted Rt 025 Intraoral-periapical 1st Film Oral Hygiene Instruction Limited Oral Eval Extract; Erupted Th/exposted Rt 024 Nutrit Couns For Control Of [place] Dis Sep Panoramic Film Intraoral-periapical 1st Film 2 Xgbdoxjrl-zejkopljac-hzcj Additional Sep Tzhbrtyxr-swcntlqkau-waul Additional Sep Comp Oral Eval New/estab Patient 2021 Oral Hygiene Instruction Intraoral-periapical 1st Film 1 Limited Oral Eval Extract; Erupted Th/exposted Rt 021 Advance Directives Directive Yes / No Effective Date File Name No Information Encounters Encounter Description Practice Location Reason(s) For Visit Diagnoses Date Provider Providers Copied on Encounter [facility], [address] [place] [address], [id number], tel:[phone] [facility] Dental Clinic Encounter for screening for dental disorders Marlow DDS Yixue. [address] [place] [address], [id number], . tel:[phone] [facility], [address] [place] [address], [id number], tel:[phone] [facility] Dental Clinic ext (chief complaint) Encounter for screening for dental disorders Marlow DDS Yixue. [address] [place] [address], [id number], . tel:[phone] [facility], [address] [place] [address], [id number], tel:[phone] [facility] Dental Clinic DN (chief complaint) Encounter for screening for dental disorders Marlow DDS Yixue. [address] [place] [address], [id number], [place]. tel:[phone] [facility], [address] [place] [address], [id number], tel:[phone] [facility] Dental Clinic dental limited (chief complaint) Encounter for screening for dental disorders Marlow DDS Yixue. [address] [place] [address], [id number], [place]. tel:[phone] [facility], [address] [place], [place], [id number], [place] tel:[phone] [facility] Dental Clinic Encounter for screening for dental disorders Tino DMD Murtaza. [address] [place], [place], [id number], [place]. tel:[phone] [facility], [address] [place] [address], [id number], [place] tel:[phone] Dental Clinic DN (chief complaint) Encounter for screening for dental disorders Luis DMD Eri. [address] [place], [place], [id number], [place]. tel:[phone] [facility], [address] [place] [address], [id number], [place] tel:[phone] Dental Clinic DN (chief complaint) Encounter for screening for dental disorders Werner Gilbert. [address] [place], [address], [place]. tel:[phone] Family History Family Member Type Diagnosis Age At Onset No Information Payers Payer name Insurance type Covered democrat ID Alisson fregoso(ameya) D [facility] Medicaid [facility] [id number] D Medicaid [facility] [id number] Social History Type Description Quantity Date Captured Comments Sex Female Smoking Status No Information Sexual Orientation Straight or heterosexual Gender Identity Female Chief Complaint And Reason For Visit No Information Reason For Referral Reason For Referral No Information Plan Of Treatment Date Type Action Status Goal Unhealthy drug use screening . Due on due Goal Tdap. Due on due Goal PRAPARE ASSESSMENT. Due on due Goal HPV. Due on due Goal Influenza vaccine. Due on due Goal Lipid panel. Due on due Goal Tdap Vaccine. Due on 2024 due Goal Hepatitis C screening. Due o n due Goal Depression screening. Due on due Goal Hep A. Due on du e Goal Influenza vaccine. Due on due Goal Lipid panel. Due on due Goal Unhealthy drug use screening . Due on due Goal Tdap. Due on due Goal Depression screening. Due on due Goal Tdap Vaccine. Due on 2024 due Goal PRAPARE ASSESSMENT. Due on due [...] Tdap Vaccine. Due on 2024 due Goal PRAPARE ASSESSMENT. Due on due Goal Unhealthy drug use screening . Due on due Goal Lipid panel. Due on 024 due Goal Depression screening. Due on due Goal Influenza vaccine. Due on Se due Goal HPV. Due on due Goal Hep A. Due on du e Goal Hepatitis C screening. Due o n due Goal Tdap Vaccine. Due on 2023 due Goal Tdap. Due on due Appointment Ready, Renu BOOKED History Of Present [...]
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
--- OUTSIDE RECORDS SUMMARY | 2025-02-15 09:07 | XMS_ITS | Clinical Summary ---
Author Organization [facility] Address [address], [address] [place] [address] Care Team Providers Care Woods Superintendent Name Role Phone Gentry Wolf MD Primary Care Provider [phone] Allergies Active Allergy Reactions Criticality Noted Date [...] Vaccine (2023-2 5 season) 2024 Flu vaccine (#1) 03/02/2025 Polio vaccine Aged Out No longer carina alvarez based on patient's age to complete this topic Insurance [facility] [place] Care Teams Woods Superintendent Relationship Specialty Start Date End Date eGntry Wolf MD [address] [place] [address] PCP - General Family Medicine 07/09/24
--- OUTSIDE RECORDS SUMMARY | 2025-02-15 09:07 | XMS_ITS | Encounter Summary ---
Author Organization [facility] tem Address [id number] [address] [place] [address] Care Team Providers Care Filament Welder Name Role Phone Gentry Wolf MD Primary Care Provider [phone] Reason for Visit * Reason Onset Date Comments Med Refill 08/23/2020 Med Refill 08/26/2020 Encounter Details Date Type Department Care Team (Late st Contact Info) Description 08/23/2020 Refill Maternal- Medicine at [facility] [address] [place] [phone] Marianne Medeiros M, MANAGER [facility]MET[facility] [address] [facility] [address] [place] [address] Pre-existing type 2 diabetes mellitus in in [...] documented as of this encounter Care Teams Filament Welder Relationship Specialty Start Date End Date Gentry Wolf MD PCP - General Family Medicine 06/22/19 documented as of this encounter
--- OUTSIDE RECORDS SUMMARY | 2025-02-15 09:07 | XMS_ITS | Encounter Summary ---
Author Organization [facility] Address [address] [place] [address] Care Team Providers Care Supervisor Type Disk Quality Control Name Role Phone Gentry Wolf MD Primary Care Provider [phone] Encounter Details Date Type Department Care Team (Late Contact Info) Description 01/11/2025 Abstract [facility] OB [address] [place] [address] Maya Lugo MA Social History Tobacco Use Types Packs/Day Years [...] Encounters Date Type Department Care Team (Late Contact Info) Description 01/14/2026 3:00 PM EDT Office Visit [facility] [address] [place] [address] Leland Claros, DO [address] [place] [address] [place] [address] documented as of this encounter Visit Diagnoses Not on filedocumented in this encounter Care Teams Supervisor Type Disk Quality Control Relationship Specialty Start Date End Date Gentry Wolf MD [address] [facility] [place] [address] PCP - General Family Medicine 11/16/24 documented as of this encounter
--- OUTSIDE RECORDS SUMMARY | 2025-02-15 09:07 | XMS_ITS | Clinical Summary ---
Author Organization [facility] tem Address [id number] [address] [place] [address] Care Team Providers Care Food And Beverage Assistant Name Role Phone Gentry Wolf MD Primary Care Provider [phone] Allergies Active Allergy Reactions Criticality Noted Date Comments Penicillins Hives 05/26/2019 Medications labetalol (NORMODYNE) 200 mg tablet Take 300 mg by mouth 3 (three) times a day. Active aspirin 81 mg Take 81 mg by mouth daily. Active PNV 406-AELA-SERVFB 1-DSS-DHA ORAL Take 1 tablet by mouth [...] strip 8 08/26/2020 Active pen needle, diabetic ([employer] ULTRA-FINE SHORT PEN NEEDLE) 31 gauge x [...] 04/02/2025 Medical Devices Not on file [place] [address] [address] MEDICAID Care Teams Food And Beverage Assistant Relationship Specialty Start Date End Date Gentry Wolf MD PCP - General Family Medicine 06/22/19
--- OUTSIDE RECORDS SUMMARY | 2025-02-15 09:07 | XMS_ITS | Encounter Summary ---
Author Organization [facility] Address [address] [place] [address] Care Team Providers Care Behavioral Health Rn Name Role Phone Gentry Wolf MD Primary Care Provider [phone] Encounter Details Date Type Department Care Team (Late Contact Info) Description 01/17/2025 Orders Only [facility] [address] [place] [address] Daysi Mendoza MA [address] [place] [address] Social History Tobacco Use Types Packs/Day Years [...] EDT Office Visit [facility] [address] [facility] [place] [phone] Leland Claros DO [address] [facility] [address] [place], [place] [phone] documented as of this encounter Procedures Procedure Name Priority Date/Time Associated Diagnosis Comments PAP SMEAR Routine 01/08/2025 12:00 AM EDT documented in this encounter Results * Pap Smear (01/08/2025 12:00 AM EDT) Swab Cervical swab / Unknown us Baisa BLOOM LAB CYTOLOGY ORDERABLES Final Re sult EXTERNAL LAB documented in this encounter Visit Diagnoses Not on filedocumented in this encounter Care Teams Behavioral Health Rn Relationship Specialty Start Date End Date Gentry Wolf MD [address] [facility] [place] [address] PCP - General Family Medicine 11/16/24 documented as of this encounter
--- OUTSIDE RECORDS SUMMARY | 2025-02-15 09:07 | XMS_ITS | Encounter Summary ---
Author Organization [facility] tem Address [id number] [address] [place] [address] Care Team Providers Care Loom Overhauler Name Role Phone Gentry Wolf MD Primary Care Provider +- Reason for Visit * Reason Comments Med Refill Encounter Details Date Type Department Care Team (Late st Contact Info) Description 05/12/2022 Refill Maternal- Medicine at [facility] [address] [place] [phone] Eddie Rios MD [address] [facility], [address] [place] [address] Pre-existing type 2 diabetes mellitus [...] documented as of this encounter Care Teams Loom Overhauler Relationship Specialty Start Date End Date Gentry Wolf MD PCP - General Family Medicine 06/22/19 documented as of this encounter
--- OUTSIDE RECORDS SUMMARY | 2025-02-15 09:07 | XMS_ITS | Clinical Summary ---
Author Organization [facility] Address [address] [place] [address] Care Team Providers Care Back Roll Lathe Operator Name Role Phone Gentry Wolf MD Primary Care Provider [phone] Allergies Active Allergy Reactions Criticality Noted Date Comments Penicillins Rash,Hives,Unknown Low 05/26/2019 Other Reaction(s): Other Medications metroNIDAZOLE (Flagyl) 500 MG tabletIndicatio ns:BV (bacterial vaginosis) Take 1 tablet (500 mg) by mouth in the morning and 1 tablet (500 mg) before bedtime. Do all this for 7 days. Do not drink alcohol while taking this medication. 14 tablet 01/11/2025 01/19/20 25 Encounters Date Type Department Care Team Description 01/17/2025 Orders Only [facility] [place] [address] [place] [address] Daysi Mendoza MA 01/15/2025 Results [facility] [place] [facility] [place] [address] Celeste Kaye LPN 01/11/2025 Abstract [facility] [place] [address] [place] [address] Maya Lugo MA 01/11/2025 Telephone [facility] [place] [facility] [place] [address] Lugo, Maya, MA 01/08/2025 3:00 PM EDT [facility] Visit [facility] [address] [facility] [place] [address] Basia Brandt PA Yeast infection (Primary Dx); Well woman exam with routine gynecological exam; Acute vaginitis 01/08/2025 Clinisync Result Encounter [facility] External Department Unsolicited Basia Brandt PA 01/08/2025 External Result Encounter [facility] External Department Unsolicited Leland Claros, 01/08/2025 Bamboo flowsheet [facility] OB [address] [facility] [place] [address] Basia Brandt PA 01/08/2025 Travel from Last [...] EDT Office Visit [facility] [address] [facility] [place] [address] HarlanLeland corbin, DO [address] [place] [address] [place] [address] Procedures Procedure Name Priority Date/Time Associated Diagnosis Comments RECURRENT VAGINITIS (HTRX) Routine 01/08/2025 4:35 PM EDT IGP,APTIMA HPV,AGE GDLN Routine 01/08/2025 2:52 PM EDT PAP SMEAR Routine 01/08/2025 12:00 AM EDT from Last 3 Months Results * (ABNORMAL) RECURRENT VAGINITIS (HTRX) (01/08/2025 4:35 PM EDT) ATOPOBIUM VAGINAE 15.510(A) 19.961 - 24.689 ppm 01/11/2025 6:38 AM EDT [facility] ATOPOBIUM VAGINAE Detected(A) 19.961 - 24.689 ppm 01/11/2025 6:38 AM EDT [facility] BVAB 2,3 (BACTERIAL VAGINOSIS ASSOCIATED BACTERIA 2, 3); MOBILUNCUS SPP 0.000 19.961 - 24.689 ppm 01/11/2025 6:38 AM EDT [facility] BVAB 2,3 (BACTERIAL VAGINOSIS ASSOCIATED BACTERIA 2, 3); MOBILUNCUS SPP Not Detected 19.961 - 24.689 ppm 01/11/2025 6:38 AM EDT [facility] HEATHER ALBICANS, PARAPSILOSIS, TROPICALIS 0.000 19.961 - 30.770 ppm 01/11/2025 6:38 AM EDT [facility] HEATHER ALBICANS, PARAPSILOSIS, TROPICALIS Not Detected 19.961 - 30.770 ppm 01/11/2025 6:38 AM EDT [facility] HEATHER GLABRATA 0.000 23.000 - 32.138 ppm 01/11/2025 6:38 AM EDT [facility] HEATHER GLABRATA Not Detected 23.000 - 32.138 ppm 01/11/2025 6:38 AM EDT [facility] HEATHER KRUSEI 0.000 23.000 - 32.271 ppm 01/11/2025 6:38 AM EDT [facility] HEATHER KRUSEI Not Detected 23.000 - 32.271 ppm 01/11/2025 6:38 AM EDT [facility] CHLAMYDIA TRACHOMATIS 0.000 23.000 - 31.467 ppm 01/11/2025 6:38 AM EDT [facility] CHLAMYDIA TRACHOMATIS Not Detected 23.000 - 31.467 ppm 01/11/2025 6:38 AM EDT [facility] GARDNERELLA VAGINALIS 17.198(A) 19.961 - 24.689 ppm 01/11/2025 6:47 AM EDT [facility] GARDNERELLA VAGINALIS Detected(A) 19.961 - 24.689 ppm 01/11/2025 6:47 AM EDT [facility] MEGASPHAERA (TYPES 1, 2) 20.579(A) 19.961 - 24.689 ppm 01/11/2025 6:38 AM EDT [facility] MEGASPHAERA (TYPES 1, 2) Detected(A) 19.961 - 24.689 ppm 01/11/2025 6:38 AM EDT [facility] NEISSERIA GONORRHOEAE 0.000 23.000 - 32.117 ppm 01/11/2025 6:38 AM EDT [facility] NEISSERIA GONORRHOEAE Not Detected 23.000 - 32.117 ppm 01/11/2025 6:38 AM EDT [facility] TRICHOMONAS VAGINALIS 0.000 23.000 - 32.119 ppm 01/11/2025 6:38 AM EDT [facility] TRICHOMONAS VAGINALIS Not Detected 23.000 - 32.119 ppm 01/11/2025 6:38 AM EDT [facility] MYCOPLASMA GENITALIUM 0.000 19.961 - 24.689 ppm 01/11/2025 6:38 AM EDT [facility] MYCOPLASMA GENITALIUM Not Detected 19.961 - 24.689 ppm 01/11/2025 6:38 AM EDT [facility] ERMB, C; MEFA 15.815(A) 23.000 - 27.611 ppm 01/11/2025 6:38 AM EDT [facility] ERMB, C; MEFA Detected(A) 23.000 - 27.611 ppm 01/11/2025 6:38 AM EDT [facility] TET B, TET M 12.593(A) 23.000 - 27.778 ppm 01/11/2025 6:38 AM EDT [facility] TET B, TET M Detected(A) 23.000 - 27.778 ppm 01/11/2025 6:38 AM EDT [facility] Tissue 01/08/2025 4:35 PM EDT 01/11/2025 2:28 AM EDT us Leland Claros DO LAB BLOOD ORDERABLES [facility] [address] [place] [address] * IGP,APTIMA HPV,AGE GDLN (01/08/2025 2:52 PM EDT) AGE GDLN ACOG TESTING Note . [facility] Comment: TESTS RESULT FLAG UNITS REF RANGE LAB Clinician Provided Cytology Information Source.............Cervix;Endocervix No. of containers..01 ThinPrep Vial Age Gwendolyn SPEARS Lory... 3065 FLAG LEGEND: L-Low Normal,H-High Normal,LL-Alert Low,HH-Alert High <-Panic Low,>-Panic High,A-Abnormal,AA-Critical Abnormal Performed at: 01 =G [facility] [address] [place] [address] Lucy Carbajal MD, IGP, APTIMA HPV, RFX 16/18,45 Note . [facility] Comment: TESTS RESULT FLAG UNITS REF RANGE LAB DIAGNOSIS: 02 NEGATIVE FOR INTRAEPITHELIAL LESION OR MALIGNANCY. Specimen adequacy: 02 Satisfactory for evaluation. Endocervical and/or squamous metaplastic cells (endocervical component) are present. Performed by: Barbara Rhodes, Fire Investigation Manager ([facility]) . 02 Note: Note 02 The Pap smear is a screening test designed to aid in the detection of premalignant and malignant conditions of the uterine cervix. It is not a diagnostic procedure and should not be used as the sole means of detecting cervical cancer. Both false-positive and false-negative reports do occur. Test Methodology: Note 02 This liquid based ThinPrep(R) pap test was screened with the use of an image guided system. HPV Genotype Reflex Note 02 Criteria not met, HPV Genotype not performed. FLAG LEGEND: L-Low Normal,H-High Normal,LL-Alert Low,HH-Alert High <-Panic Low,>-Panic High,A-Abnormal,AA-Critical Abnormal Performed at: [address] [address] Lucy Carbajal MD, HPV APTIMA Negative Negative [facility] Comment: This nucleic acid amplification test detects fourteen high- risk HPV types (16,18,31,33,35,39,45,51,52,56,58,59,66,68) without differentiation. Performed at: =[address] [id number] Educator Senior Clinical: Lucy Carbajal MD, Phone: [phone] Performed at: [address] [id number] Educator Senior Clinical: Lucy Carbajal MD, Phone: [phone] 01/08/2025 2:52 PM EDT 01/08/2025 9:47 PM EDT Narrative [facility] - 01/11/2025 5:08 PM EDT BRUSH-SPATULA CERVIX ENDOCERVIX Basia BLOOM LAB BLOOD ORDERABLES [facility] * Pap Smear (01/08/2025 12:00 AM EDT) Swab Cervical swab / Unknown Basia BLOOM LAB CYTOLOGY ORDERABLES Final Re sult Performing Organization Address City/[facility]/ZIP Co de Phone Number EXTERNAL LAB from Last 3 Months Insurance [employer] MEDICAID Care Teams Back Roll Lathe Operator Relationship Specialty Start Date End Date Gentry Wolf MD [address] [facility] [place] [address] PCP - General Family Medicine 11/16/24
--- OUTSIDE RECORDS SUMMARY | 2025-02-15 09:07 | XMS_ITS | Encounter Summary ---
Author Organization [facility] tem Address [id number] [address] [place] [address] Care Team Providers Care Factory Clerk Name Role Phone Gentry Wolf MD Primary Care Provider [phone] Reason for Visit * Reason Onset Date Comments Med Refill Med Refill 12/03/2020 Encounter Details Date Type Department Care Team (Late st Contact Info) Description 11/27/2020 Refill Maternal- Medicine at [facility] [address] [place] [address] Marianne Medeiros M, DIRECTOR VOLUNTEER SERVICES-PLANNING LEAD [address] [facility] [address] [place] [address] Pre-existing type 2 diabetes mellitus in in [...] documented as of this encounter Care Teams Factory Clerk Relationship Specialty Start Date End Date Gentry Wolf MD PCP - General Family Medicine 06/22/19 documented as of this encounter
--- OUTSIDE RECORDS SUMMARY | 2025-02-15 09:07 | XMS_ITS | Encounter Summary ---
Author Organization [facility] Address [address] [place] [place] [address] Care Team Providers Care Section Weaver Name Role Phone Gentry Wolf MD Primary Care Provider [phone] Encounter Details Date Type Department Care Team (Late st Contact Info) Description 01/15/2025 Results Follow-Up [facility] [address] [place] [address] Celeste Kaye LPN [address] [place] [id number] Social History Tobacco Use Types Packs/Day Years [...] on file documented as of this encounter Miscellaneous Notes * Result Encounter Note - Celeste Kaye LPN - 01/15/2025 7:39 AM EDT Pt was treated documented in this encounter Plan of Treatment Upcoming Encounters Date Type Department Care Team ([facility] st Contact Info) Description 01/14/2026 3:00 PM EDT Office Visit [facility] OB [address] [facility] [place] [address] Leland Claros, DO [address] [facility] [address] [place], [place] [address] documented as of this encounter Visit Diagnoses Not on filedocumented in this encounter Care Teams Section Weaver Relationship Specialty Start Date End Date Gentry Wolf MD [address] [facility] [place] [address] PCP - General Family Medicine 11/16/24 documented as of this encounter
[2025-02-15 09:39] LABS: Hematocrit 41.7 % (36.0-48.0); Hemoglobin 15.0 g/dL (12.0-16.0); Immature Granulocytes Abs Auto 0.02 10^3/uL (0.00-0.03); Immature Granulocytes Pct Auto 0.3 % (0.0-0.5); Lymphocytes Absolute Auto 2.8 10^3/uL (1.2-3.8); Mean Corpuscular HGB Conc 36.0 g/dL (29.9-35.2); Mean Corpuscular Hemoglobin 28.7 pg (26.7-34.0); Mean Corpuscular Volume 79.7 fL (81.0-99.0); Platelet Count 268 10^3/uL (150-450); Red Blood Count 5.23 10^6/uL (4.20-5.40); White Blood Count 7.1 10^3/uL (4.0-11.0)
[2025-02-15 10:31] LABS: Iron 62.0 ug/dL (50.0-170.0)
[2025-02-15 10:46] LABS: Alanine Aminotransferase 30 U/L (14-59); Albumin Globulin Ratio 0.8; Albumin Level 3.4 g/dL (3.4-5.0); Alkaline Phosphatase 166 U/L (46-116); Anion Gap 13.3; Aspartate Amino Transferase 8 U/L (15-37); Blood Urea Nitrogen 18.0 mg/dL (7.0-18.0); Calcium 9.5 mg/dL (8.5-10.1); Carbon Dioxide 24.8 mmol/L (21.0-32.0); Chloride 98 mmol/L (98-107); Cholesterol 228 mg/dL (<=200); Estimated GFR (African America >60 (>=60 mL/min/1.73m^2); Estimated GFR (Non-African Ame >60 (>=60 mL/min/1.73m^2); Free T3 3.19 pg/mL (2.18-3.98); Globulin 4.1 g/dL; Glucose 424 mg/dL (74-106); HDL Cholesterol 38 mg/dL (40-60); Potassium 4.1 mmol/L (3.5-5.1); Sodium 132 mmol/L (136-145); Thyroid Stimulating Hormone 1.596 uIU/mL (0.358-3.740); Total Protein 7.5 g/dL (6.4-8.2); Triglycerides 578 mg/dL (<=150); VLDL CHOLESTEROL 115.6 mg/dL
== END 2025-02-15 09:04 | disposition home or self-care (01) ==
PROVIDERS: PCP Family Medicine; Visit Provider Family Medicine
DX: Z00.00 Encounter for general adult medical examination without abnormal findings (principal)
CPT/HCPCS: 36415; 80053; 80061; 83036; 83540; 83721; 84436; 84443; 84481; 85025

== ENCOUNTER 2025-02-22 09:11 | Outpatient (OUT) | payer OTHER, SELFPAY ==
--- OUTSIDE RECORDS SUMMARY | 2025-02-14 06:45 | XMS_ITS ---
Author Organization [facility] in [place] Address [address] [place] [address] Care Team Providers Care Automatic Buffing Wheel Former Name Role Phone Phillip Wolf Primary Care Provider Allergies Allergen (clinical drug ingredient) Drug/Non Drug Allergy documented on EMR Reaction Allergy Type Onset Date Status Penicillin rash- childhood Drug Allergy Active REASON FOR VISIT Yearly- due for yearly labs as well, med refill Medications Medication SIG (Take, Route, Frequency, Duration) Notes Start Date End Date Status Reglan 10 MG 1 tablet before meal s Orally four times daily Active Pen Smithmill 16 31G X 8 MM as directed Active NovoLOG 100 UNIT/ML 5 U for every 50 ove r 150 - max dose is 20 Injection ac 08/31/2024 Active Lisinopril 20 MG 1 tablet Orally Once a day Active Brilinta 90 MG 1 tablet Orally Twic e a day for 30 days 02/14/2025 Active Glucose Meter Test - machien and strips and lancets In Vitro tid needs machine to match strips 08/31/2024 Active Insulin Syringe 31G X 5/16 1 ML Use 1 syringe to drawn insulin TID for 90 days 09/01/2024 Active Insulin Aspart FlexPen 100 UNIT/ML 40 units Subcutaneous BID for 30 days 09/19/2024 Active Ibuprofen 800 MG 1 tablet with food o r milk as needed Orally every 8 hrs 09/18/2024 Active Citalopram Hydrobromide 20 MG 1 tablet Orally Once a day Active Atorvastatin Calcium 80 MG TAKE 1 TABLET BY MOUTH ONCE DAILY Oral for 30 Days Active Aspirin Adult Low Dose 81 MG 1 tablet Orally Once a day Active Social History Tobacco Use: Social History Observation Description Date Details (start date - stop date) Never Smoker NA - NA Tobacco Use/Smoking Question Answer Notes Patient is a nonsmoker Problems Problem Type SNOMED Code ICD Code Onset Dates Problem Status W/U Status Risk Notes Problem Well adult (884620076) Well adult (Z00.00) Active confirmed Vital Signs Blood pressure systolic 120 mm Hg 02/15/20 25 Blood pressure diastolic 84 mm Hg 025 Height 65 in 02/14/2025 Weight 176.2 lbs 02/14/2025 BMI 29.32 kg/m2 02/14/2025 Encounters Encounter Location Date Provider Diagnosis [facility] [address] [place] [address] 02/14/2025 Phillip Wolf Well adult Z00.0 0 Assessments Encounter Date Diagnosis (ICD Code) Assessment Notes Treatment Notes Treatment Clinical Notes Section Notes 02/14/2025 Well adult (ICD-10 - Z00.00) Plan Of Treatment Medication Medication Name Sig Start Date Stop Date Notes Brilinta 90 MG 1 tablet Orally Twice a day for 30 days Pending Test Test Name Order Date HEMOGLOBIN A1C (GLYCO) 02/14/2025 IRON, TOTAL 02/14/2025 LIPID PANEL (CHOL/TRIG/HDL/LDL) 02/15/20 25 STOOL OCCULT BLOOD 02/14/2025 THYROID PANEL (T4/TSH/FREE T3) 5 MM screening mammo BI 02/14/2025 CMP (COMP MET HILLIARD) w/eGFR CKD-EPI 2024 CBC WITH DIFF 02/14/2025 Progress Notes * Renu NASH DDOB: [birth year] (45 yo F)Acc No.[id number]:02/14/2025 Progress Note Patient: Naye CÁRDENASmyriam Agudelo Provider: Magnus Wolf ([facility])MD :1980 A ge:45 Y S ex:Female Date:02/14/2025 Address:[facility] [id number] Check In:10:38 AM ESTCheck O ut:11:28 AM EST Subjective: * Chief Complaints: * Y early- due for yearly labs as well, med refill * ROS: E ENT: hearing changes d enies. v isual changes d enies.?non-healing mouth sores d enies. s wollen glands or neck lumps d enies. h oarseness d enies. s ore throat d enies. d ifficulty swallowing d enies. n ose bleeds d enies. n alexandra congestion d enies. e ar ache d enies. e ar discharge?denies. r inging in ears d enies. l ight sensitivity d enies. e ye pain d enies. b lurring d enies. e ye irritation d enies. d ouble vision d enies.?vision loss d enies. G eneral/Constitutional: Sweats: D enies. F atigue d enies. S leep problems d enies. A norexia d enies. M alaise d enies. W eight loss d enies.?Fatigue or Weakness d enies. F ever or Chills d enies. C ardiovascular: Shortness of Breath w/lying flat d enies. L ightheadedness/dizziness d enies. C hest tightness/ heavy pressure d enies. S welling of legs, ankles, or feet d enies. W aking up with shortness of breath d enies. C hest pain denies. P alpitations d enies. W eight gain d enies. R espiratory: Chronic or frequent cough d enies. C oughing up blood?denies. D ifficulty breathing d enies. P roductive cough d enies. S noring?denies. S hortness of breath that awakens from sleep (PND) d enies. C hest pain d enies. S putum production d enies. W heezing d enies. M usculoskeletal: Joint pain d enies. J oint Fluid d enies. B ack pain d enies. K nee pain d enies. N tone pain d enies. J oint Stiffness d enies. M uscle cramps d enies. W eakness of muscles d enies. A rthritis d enies. M uscle aches d enies. P ain in shoulder(s) d enies. S wollen joints d enies. * Active Problem List I21.3 Acute [place] Modified On:08/09/2023U Status:confirmed R07.9 Chest pain Modified On:08/20/2023U Status:confirmed M25.519 Shoulder pain Modified On:08/20/2023 Status:confirmed B02.9 Shingles Modified On:07/10/2024 Status:confirmed H60.90 Otitis externa Modified On:07/10/2024 Status:confirmed R09.81 Nasal congestion Modified On:08/18/2024 Status:confirmed J01.90 Acute non-recurrent sinusitis, unspecified location Modified On:08/18/2024 Status:confirmed 250.80 Diabetic foot ulcer Modified On:08/21/2024 Status:confirmed E11.8 Diabetic foot Modified On:09/01/2024U Status:confirmed E11.9 Diabetes mellitus Modified On:09/18/2024U Status:confirmed L97.419 Chronic ulcer of rig ht heel Modified On:09/25/2024U Status:confirmed E11.621 Type 2 diabetes frantz itus with foot ulcer Modified On:09/25/2024 Status:confirmed Z00.00 Well adult Modified On:02/14/2025 Status:confirmed * Medical History: * Surgical History: [...] Use/Smoking P atient is a n onsmoker * Medications: T akingAspirin Adult Low Dose(Aspirin) 81 MG Tablet Delayed Release 1 tablet Orally Once a day Atorvastatin Calcium 80 MG Tablet TAKE 1 TABLET BY MOUTH ONCE DAILY Oral Citalopram Hydrobromide 20 MG Tablet 1 tablet Orally Once a day Glucose Meter Test(Glucose Blood) - Strip machien and strips and lancets In Vitro tid , Notes to Pharmacist: needs machine to match stripsIbuprofen 800 MG Tablet 1 tablet with food or milk as needed Orally every 8 hrs Insulin Aspart FlexPen 100 UNIT/ML Solution Pen-injector 40 units Subcutaneous BID Insulin Syringe 31G X 5/16 1 ML Miscellaneous Use 1 syringe to drawn insulin TID Lisinopril 20 MG Tablet 1 tablet Orally Once a day NovoLOG(Insulin Aspart) 100 UNIT/ML Solution 5 U for every 50 over 150 - max dose is 20 Injection ac Pen Smithmill 5/16 31G X 8 MM Miscellaneous as directed Reglan(Metoclopramide HCl) 10 MG Tablet 1 tablet before meals Orally four times daily Taking Aspirin Adult Low Dose(Aspirin) 81 MG Tablet Delayed Release 1 tablet Orally Once a day Taking Atorvastatin Calcium 80 MG Tablet TAKE 1 TABLET BY MOUTH ONCE DAILY Oral Taking Citalopram Hydrobromide 20 MG Tablet 1 tablet Orally Once a day Taking Glucose Meter Test(Glucose Blood) - Strip machien and strips and lancets In Vitro tid , Notes to Pharmacist: needs machine to match stripsTaking Ibuprofen 800 MG Tablet 1 tablet with food or milk as needed Orally every 8 hrs Taking Insulin Aspart FlexPen 100 UNIT/ML Solution Pen-injector 40 units Subcutaneous BID Taking Insulin Syringe 31G X 5/16 1 ML Miscellaneous Use 1 syringe to drawn insulin TID Taking Lisinopril 20 MG Tablet 1 tablet Orally Once a day Taking NovoLOG(Insulin Aspart) 100 UNIT/ML Solution 5 U for every 50 over 150 - max dose is 20 Injection ac Taking Pen Smithmill 5/16 31G X 8 MM Miscellaneous as directed Taking Reglan(Metoclopramide HCl) 10 MG Tablet 1 tablet before meals Orally four times daily DiscontinuedCetirizine HCl 10 MG Tablet 1 tablet Orally Once a day Fluticasone Propionate 50 MCG/ACT Suspension 1 spray in each nostril Nasally twice a day levoFLOXacin 500 MG Tablet 1 tablet Orally Once a day Medication List reviewed and reconciled with the patientDiscontinued Cetirizine HCl 10 MG Tablet 1 tablet Orally Once a day Discontinued Fluticasone Propionate 50 MCG/ACT Suspension 1 spray in each nostril Nasally twice a day Discontinued levoFLOXacin 500 MG Tablet 1 tablet Orally Once a day Medication List reviewed and reconciled with the patient * Allergies: P enicillin: rash- childhood - Allergyno[Allergies Verified] Objective: * Vitals: W t:176.2lbs, Ht: 65 in, BP:120/84mm Hg, BMI:29.32Index, Ht-cm: 165.1 cm, Wt-k.92 kg. * Examination: P hysical Exam: GENERAL: w ell developed, well nourished, in no acute distress. HEAD: n ormocephalic/atraumatic. EYES: p upils equal, round and reactive to light, conjunctivae and sclerae normal. EARS: n o deformity or lesion of external ear, canals and TM appear normal bilaterally, TM's intact, not inflamed with normal light reflex, hearing grossly normal to conversational speech. NOSE: n o deformity, discharge, inflammation, or lesions.? MOUTH: m ucous membranes moist, normal oropharynx and posterior pharynx without lesions or exudates, tongue normal, dentition normal. NECK: n tone supple, no masses or palpable cervical nodes, trachea midline, thyroid without nodules, masses, tenderness, or enlargement. CHEST: n o chest wall deformity, no chest wall tenderness.? LUNGS: n ormal respiratory effort and clear to auscultation, no wheezes, rales, or rhonchi, good air exchange. CARDIO: r egular rate and rhythm, normal S1 and S2, nor murmur, rub, or gallop. PULSES: n ormal capillary refill. ABDOMEN: s oft, non-distended, non-tender, no masses. MUSCULOSKELETAL: n o deformity or scoliosis noted, normal range of motion, joints normal, no erythema, edema, effusion, or ecchymosis. EXTREMITY: n o clubbing, cyanosis, edema, or deformity with normal ROM in both upper and lower bilateral extremities. NEUROLOGIC: g rossly normal. SKIN: n o rashes, ulcerations, or suspicious lesions. LYMPH NODES: n o cervical adenopathy, nodes normal. MENTAL STATUS: a lert and oriented x3, normal mood and affect. Assessment: * Assessment: 1. W ell adult - Z00.00 (Primary) Plan: * Treatment: * Procedure Codes: * * Sign off status: Completed Visit Status: C HK (Check Out) true * Provider: Magnus Wolf ([facility])MD Date: 0 02/14/2025 Generated for Printi ng/Faxing/eTransmitting on: 0 02/22/2025 09:17 AM EDT History and Physical Notes * Examination Category Sub-Category Detail Notes Category Not es Physical Exam GENERAL: well developed, well nourished, in no acute distress HEAD: normocephalic/atraum atic EYES: pupils equal, round and reactive to light, conjunctivae and sclerae normal EARS: no deformity or lesi on of external ear, canals and TM appear normal bilaterally, TM's intact, not inflamed with normal light reflex, hearing grossly normal to conversational speech NOSE: no deformity, discha rge, inflammation, or lesions MOUTH: mucous membranes aleja st, normal oropharynx and posterior pharynx without lesions or exudates, tongue normal, dentition normal NECK: neck supple, no mass es or palpable cervical nodes, trachea midline, thyroid without nodules, masses, tenderness, or enlargement CHEST: no chest wall deform ity, no chest wall tenderness LUNGS: normal respiratory e ffort and clear to auscultation, no wheezes, rales, or rhonchi, good air exchange CARDIO: regular rate and rhy thm, normal S1 and S2, nor murmur, rub, or gallop PULSES: normal capillary ref ill ABDOMEN: soft, non-distended, non-tender, no masses RECTAL: MUSCULOSKELETAL: no deformity or scol iosis noted, normal range of motion, joints normal, no erythema, edema, effusion, or ecchymosis EXTREMITY: no clubbing, cyanosi s, edema, or deformity with normal ROM in both upper and lower bilateral extremities NEUROLOGIC: grossly normal SKIN: no rashes, ulceratio ns, or suspicious lesions LYMPH NODES: no cervical adenopat hy, nodes normal MENTAL STATUS: alert and oriented x 3, normal mood and affect
--- OUTSIDE RECORDS SUMMARY | 2025-02-14 07:19 | XMS_ITS ---
Author Organization [facility] [place] Address [address] [place] [address] Care Team Providers Care Printing Estimator Name Role Phone Phillip Wolf Primary Care Provider [phone] REASON FOR VISIT refill Medications Medication SIG (Take, Route, Frequency, Duration) Notes Start Date End Date Status Atorvastatin Calcium 80 MG TAKE 1 TABLET BY MOUTH ONCE DAILY Oral Once a day for 30 days Active NovoLOG 100 UNIT/ML 5 U for every 50 ove r 150 - max dose is 20 Injection ac 08/31/2024 Active Lisinopril 20 MG 1 tablet Orally Once a day for 30 days Active Reglan 10 MG 1 tablet before meal s Orally four times daily for 30 days Active Citalopram Hydrobromide 20 MG 1 tablet Orally Once a day for 30 days Active Ibuprofen 800 MG 1 tablet with food o r milk as needed Orally every 8 hrs 09/18/2024 Active Insulin Syringe 31G X 5/16 1 ML Use 1 syringe to drawn insulin TID for 90 days 09/01/2024 Active Insulin Aspart FlexPen 100 UNIT/ML 40 units Subcutaneous BID for 30 days 09/19/2024 Active Aspirin Adult Low Dose 81 MG 1 tablet Orally Once a day for 30 days Active Encounters Encounter Location Date Provider Diagnosis [facility] [address] [place] [address] 02/14/2025 Phillip Varinderjessica Well adult Z00.00 an d Diabetes mellitus E11.9 Assessments Encounter Date Diagnosis (ICD Code) Assessment Notes Treatment Notes Treatment Clinical Notes Section Notes 02/14/2025 Well adult (ICD-10 - Z00.00) 02/14/2025 Diabetes mellitus (ICD-10 - E11.9) Plan Of Treatment Medication Medication Name Sig Start Date Stop Date Notes Atorvastatin Calcium 80 MG TAKE 1 TABLET BY MOUTH ONCE DAILY Oral Once a day for 30 days NovoLOG 100 UNIT/ML 5 U for every 50 ove r 150 - max dose is 20 Injection ac 08/31/2024 Lisinopril 20 MG 1 tablet Orally Once a day for 30 days Reglan 10 MG 1 tablet before meal s Orally four times daily for 30 days Citalopram Hydrobromide 20 MG 1 tablet O rally Once a day for 30 days Ibuprofen 800 MG 1 tablet with food o r milk as needed Orally every 8 hrs 09/18/2024 Insulin Syringe 31G X 5/16 1 ML Use 1 syringe to drawn insulin TID for 90 days 09/01/2024 Insulin Aspart FlexPen 100 UNIT/ML 40 units Subcutaneous BID for 30 days 09/19/2024 Aspirin Adult Low Dose 81 MG 1 tablet Or ally Once a day for 30 days Progress Notes * Renu NASH DDOB: [birth year] (45 yo F)Acc No.[id number]:02/14/2025 Patient: Ebony CARLOSRenu :1980 A ge:45 Y S ex:Female Address:[facility] [address] [place], [address] * Refills Refill Aspirin Adult Low Dose Tablet Delayed Release, 81 MG, Orally, 30 Tablet, 1 tablet, Once a day, 30 days, Refills=11 Refill Atorvastatin Calcium Tablet, 80 MG, Oral, 30, TAKE 1 TABLET BY MOUTH ONCE DAILY, Once a day, 30 days, Refills=11 Refill Citalopram Hydrobromide Tablet, 20 MG, Orally, 30 Tablet, 1 tablet, Once a day, 30 days, Refills=11 Refill Ibuprofen Tablet, 800 MG, Orally, 100, 1 tablet with food or milk as needed, every 8 hrs, Refills=11 Refill Insulin Aspart FlexPen Solution Pen-injector, 100 UNIT/ML, Subcutaneous, 5 Each, 40 units, BID, 30 days, Refills=11 Refill Insulin Syringe Miscellaneous, 31G X 5/16 1 ML, 300, Use 1 syringe to drawn insulin TID, 90 days, Refills=3 Refill Lisinopril Tablet, 20 MG, Orally, 30 Tablet, 1 tablet, Once a day, 30 days, Refills=11 Refill NovoLOG Solution, 100 UNIT/ML, Injection, 1, 5 U for every 50 over 150 - max dose is 20, ac, Refills=11 Refill Reglan Tablet, 10 MG, Orally, 120, 1 tablet before meals, four times daily, 30 days * true * Date: Generated for Man espino/Serge/Shanika on: 0 02/22/2025 09:16 AM EDT
--- OUTSIDE RECORDS SUMMARY | 2025-02-15 14:09 | XMS_ITS ---
Author Organization [facility] [place] Address [address] [place] [address] Care Team Providers Care Technical Business Systems Analyst Name Role Phone Phillip Wolf Primary Care Provider [phone] REASON FOR VISIT labs Medications Medication SIG (Take, Route, Frequency, Duration) Notes Start Date End Date Status Tricor 145 MG 1 tablet Orally Once a day for 30 days 02/16/2025 Active Insulin Aspart FlexPen 100 UNIT/ML 50 units Subcutaneous BID for 30 days 09/19/2024 Active Encounters Encounter Location Date Provider Diagnosis [facility] [place] [address] [place] [address] 02/15/2025 Phillip Wolf Plan Of Treatment Medication Medication Name Sig Start Date Stop Date Notes Tricor 145 MG 1 tablet Orally Once a day for 30 days 02/16/2025 Insulin Aspart FlexPen 100 UNIT/ML 50 units Subcutaneous BID for 30 days 09/19/2024 Progress Notes * Renu NASH DDOB: [birth year] (45 yo F)Acc No.[id number]:02/15/2025 Patient: Ebony Renu CARLOS :1980 A ge:45 Y S ex:Female Address:[address] [place], [address] * Refills Start Tricor Tablet, 145 MG, Orally, 30, 1 tablet, Once a day, 30 days, Refills=11 Refill Insulin Aspart FlexPen Solution Pen-injector, 100 UNIT/ML, Subcutaneous, 50 units, BID, 30 days, Refills=11 * true * Date: Generated for Man espino/Serge/Ahmetitting on: 0 02/22/2025 09:16 AM EDT
--- OUTSIDE RECORDS SUMMARY | 2025-02-19 09:45 | XMS_ITS | Continuity of Care Document ---
Author Organization [facility] Address [address] [place] [phone] Phone Care Team Providers Care Family Practice Md Name Role Phone Kashmir KLEIN Priscilla Unavailable Unavailable Allergies, Adverse Reactions, Alerts Substance [...] 10 MG - Active Procedures Procedure Date Oral Hygiene Instruction Extraction Surgical/erupt Tooth 025 Extract; Erupted Th/exposted Rt 025 Extract; Erupted Th/exposted Rt 025 Extract; Erupted Th/exposted Rt 025 Extract; Erupted Th/exposted Rt 025 Extract; Erupted Th/exposted Rt 025 Alveoloplasty W/extractions 1 - 3 Teeth Oral Hygiene Instruction Nutrit Couns For Control Of [place] Dis November Extract; Erupted Th/exposted Rt 025 Extract; Erupted Th/exposted Rt 025 Nutrit Couns For Control Of [place] Dis November Comp Oral Eval New/estab Patient 2024 Bitewings Four Films Intraoral-periapical 1st Film Bitewig-single Film Oral Hygiene Instruction Limited Oral Eval Extract; Erupted Th/exposted Rt 025 Intraoral-periapical 1st Film Oral Hygiene Instruction Limited Oral Eval Extract; Erupted Th/exposted Rt 024 Nutrit Couns For Control Of [place] Dis Sep Panoramic Film Intraoral-periapical 1st Film 2 Kjimhdnvi-[id number] Additional Sep Alidfuxza-bzdltawtat-ftek Additional Sep Comp Oral Eval New/estab Patient 2021 Oral Hygiene Instruction Intraoral-periapical 1st Film 1 Limited Oral Eval Extract; Erupted Th/exposted Rt 021 Advance Directives Directive Yes / No Effective Date File Name No Information Encounters Encounter Description Practice Location Reason(s) For Visit Diagnoses Date Provider Providers Copied on Encounter [facility], [address] [place] [address], [id number], tel:[phone] [facility] Dental Clinic extraction (chief complaint) Encounter for screening for dental disorders Marlow DDS Yixue. [address] [place] [address], [id number], [place]. tel:[phone] [facility], [address] [place] [address], [id number], tel:[phone] [facility] Dental Clinic Encounter for screening for dental disorders Marlow DDS Yixue. [address] [place] [address], [id number], [place]. tel:[phone] [facility], [address] [place] [address], [id number], [place] tel:[phone] [facility] Dental Clinic ext (chief complaint) Encounter for screening for dental disorders Marlow DDS Yixue. [address] [place] [address], [id number], [place]. tel:[phone] [facility], [address] [place] [address], [id number], [place] tel:[phone] [facility] Dental Clinic DN (chief complaint) Encounter for screening for dental disorders Kashmir DDS Gabyxjayda. [address] [place], [address], [place]. tel:[phone] [facility], [address], [place], [id number], [place] tel:[phone] [facility] Dental Clinic dental limited (chief complaint) Encounter for screening for dental disorders Marlow DDS Gabyxue. [address] [place], [address], [place]. tel:[phone] [facility], [address] [place] [address], [id number], [place] tel:[phone] [facility] Dental Clinic Encounter for screening for dental disorders Tino Hauser. [address] [place], [place], [id number], [place]. tel:[phone] [facility], [address] [place] [address], [id number], [place] tel:[phone] Dental Clinic DN (chief complaint) Encounter for screening for dental disorders Luis Hwang. [address] [place], [place], [id number], [place]. tel:[phone] [facility], [address] [place] [address], [id number], [place] tel:[phone] Dental Clinic DN (chief complaint) Encounter for screening for dental disorders Werner Gilbert. [address] [place], [address], [place]. tel:[phone] Family History Family Member Type Diagnosis Age At Onset No Information Payers Payer name Insurance type Covered alliance party ID Alisson fregoso(ameya) [facility] Medicaid [facility] [id number] D Medicaid [facility] [place] [facility] [id number] Social History Type Description Quantity Date Captured [...] Percentile BMI percentile Pulse Ox Inhaled Ox 2:10 PM 65.00 in 101 /min 126/76 mm[Hg] 98.60 F Chief Complaint And Reason For Visit From encounter dated 02/19/2025 13:45'. extraction (chief complaint). Description: extraction Reason For Referral Reason For Referral No Information Plan Of Treatment Date Type Action Status Goal Tdap. Due on due Goal Hepatitis C screening. Due o n due Goal HPV. Due on due Goal Unhealthy drug use screening . Due on due Goal PRAPARE ASSESSMENT. Due on due Goal Influenza vaccine. Due on due Goal Lipid panel. Due on due Goal Tdap Vaccine. Due on 2024 due Goal Depression screening. Due on due Goal Hepatitis C screening. Due o n due Goal Tdap Vaccine. Due on 2024 due Goal Lipid panel. Due on due Goal Influenza vaccine. Due on due Goal HPV. Due on due Goal PRAPARE ASSESSMENT. Due on due Goal Tdap. Due on due Goal Unhealthy drug use screening . Due on due Goal Depression screening. Due on due Goal Hep A. Due on du e Goal Tdap Vaccine. Due on 2024 due Goal Influenza vaccine. Due on Ct due Goal Lipid panel. Due on due Goal Unhealthy drug use screening . Due on due Goal Tdap. Due on due Goal Depression screening. Due on due Goal PRAPARE ASSESSMENT. Due on M due Goal HPV. Due on due Goal [...] 2024 due Goal PRAPARE ASSESSMENT. Due on S due Goal Unhealthy drug use screening . Due on due Goal Lipid panel. Due on 024 due Goal Depression screening. Due on due Goal Influenza vaccine. Due on Se p due Goal HPV. Due on due Goal Hep A. Due on du e Goal Hepatitis C screening. Due o n due Goal Tdap Vaccine. Due on 2023 due Goal Tdap. Due on due Appointment Ready, Renu BOOKED History Of Present Illness Encounter Date Complaint History Of Prese nt Illness extraction extraction ext DN dental limited dental limited DN DN DN DN Functional Status Date Functional Assessmen t No Information Instructions Date Instruction Additional Infor mation No Information Assessments Type Assessment Date No Information Patient Care Teams Name Effective Dates (start - stop) Status Members No Information
--- NOTE | 2025-02-22 09:14 | MM_ITS ---
Patient Name: ESCOBAR NASH MR#: [id number] : 1980 Exam Date: 02/22/2025 Ordering Doctor: DR FELI CARRILLO . RADIOLOGY REPORT PROCEDURE: MM TOMOSYNTHESIS SCREENING BI COMPARISON: None. INDICATIONS: Screening Calculator Name NCI Breast Cancer Risk Assessment Tool 5 Year Breast Cancer Risk 1.30% Lifetime Breast Cancer Risk 13.80% Personal Breast Cancer No Personal Ovarian Cancer No Treatments None Family Cancers Mother with lung cancer at age 51. LOCATION: [facility] BREAST COMPOSITION: There are scattered areas of fibroglandular density. FINDINGS: DIAGNOSTIC CATEGORY 1--NEGATIVE. RIGHT BREAST: No significant suspicious finding. LEFT BREAST: No significant suspicious finding. RECOMMENDATIONS: ROUTINE MAMMOGRAM AND CLINICAL EVALUATION IN 12 MONTHS. PLEASE NOTE: A NORMAL MAMMOGRAM DOES NOT EXCLUDE THE POSSIBILITY OF BREAST CANCER. A CLINICALLY SUSPICIOUS PALPABLE LUMP SHOULD BE BIOPSIED. Dictated by: Reji Rowe DO on 02/22/2025 at 16:28 Approved by: Reji Rowe DO on 02/22/2025 at 16:29
--- OUTSIDE RECORDS SUMMARY | 2025-02-22 09:16 | XMS_ITS | Encounter Summary ---
Author Organization [facility] Address [address] [place] [address] Care Team Providers Care Visual Merchandise Manager Name Role Phone Gentry Wolf MD Primary Care Provider [phone] Encounter Details Date Type Department Care Team (Late Contact Info) Description 01/17/2025 Orders Only [facility] [address] [place] [address] Daysi Mendoza MA [address] [place] [address] Social History Tobacco Use Types Packs/Day Years [...] EDT Office Visit [facility] [address] [place] [address] Leland Claros DO [address] [place], [place] [id number] documented as of this encounter Procedures Procedure Name Priority Date/Time Associated Diagnosis Comments PAP SMEAR Routine 01/08/2025 12:00 AM EDT documented in this encounter Results * Pap Smear (01/08/2025 12:00 AM EDT) Swab Cervical swab / Unknown us [facility] CYTOLOGY ORDERABLES Final Re sult EXTERNAL LAB documented in this encounter Visit Diagnoses Not on filedocumented in this encounter Care Teams Visual Merchandise Manager Relationship Specialty Start Date End Date Gentry Wolf MD [address] [facility] [place] [address] PCP - General Family Medicine 11/16/24 documented as of this encounter
--- OUTSIDE RECORDS SUMMARY | 2025-02-22 09:16 | XMS_ITS | Encounter Summary ---
Author Organization [facility] Address [address] [place] [address] Care Team Providers Care Receiving Weigher Name Role Phone Gentry Wolf MD Primary Care Provider [phone] Encounter Details Date Type Department Care Team (Late Contact Info) Description 01/11/2025 Abstract [facility] [address] [place] [address] Maya Lugo MA Social History Tobacco Use [...] Office Visit [facility] [address] [place] [address] Leland Claros, DO [address] [place] [address] [place] [address] documented as of this encounter Visit Diagnoses Not on filedocumented in this encounter Care Teams Receiving Weigher Relationship Specialty Start Date End Date Gentry Wolf MD [address] [facility] [place] [address] PCP - General Family Medicine 11/16/24 documented as of this encounter
--- OUTSIDE RECORDS SUMMARY | 2025-02-22 09:16 | XMS_ITS | Encounter Summary ---
Author Organization [facility] Address [address] [place] [address] Care Team Providers Care Nitrating Acid Mixer Name Role Phone Gentry Wolf MD Primary Care Provider [phone] Encounter Details Date Type Department Care Team (Late st Contact Info) Description 01/15/2025 Results Follow-Up [facility] [address] [place] [address] Celeste Kaye LPN [address] [id number] Social History Tobacco Use Types Packs/Day Years [...] Upcoming Encounters Date Type Department Care Team ([facility] st Contact Info) Description 01/14/2026 3:00 PM EDT Office Visit [facility] [address] [place] [address] Leland Claros, DO [address] [facility] [address] [place], [place] [address] documented as of this encounter Visit Diagnoses Not on filedocumented in this encounter Care Teams Nitrating Acid Mixer Relationship Specialty Start Date End Date Gentry Wolf MD [address] [facility] [place] [address] PCP - General Family Medicine 11/16/24 documented as of this encounter
--- OUTSIDE RECORDS SUMMARY | 2025-02-22 09:17 | XMS_ITS | Clinical Summary ---
Author Organization [facility] Address [address], [address] [place] [address] Care Team Providers Care Solid Waste Engineer Name Role Phone Gentry Wolf MD Primary Care Provider [phone] Allergies Active Allergy Reactions Criticality Noted Date [...] patient's age to complete this topic Insurance [facility] [place] Care Teams Solid Waste Engineer Relationship Specialty Start Date End Date Gentry Wolf MD [address] [place] [address] PCP - General Family Medicine 07/09/24
--- OUTSIDE RECORDS SUMMARY | 2025-02-22 09:17 | XMS_ITS | Patient Health Record ---
Author Organization [facility] [place] Address [address] [place] [address] Care Team Providers Care Contract Clerk Name Role Phone Phillip Wolf Primary Care Provider Allergies Allergen (clinical drug ingredient) Drug/Non Drug Allergy documented on EMR Reaction Allergy Type Onset Date Status Penicillin rash- childhood Drug Allergy Active Results Component Value Reference Range Notes IGP,Aptima HPV,Age Gdln Reviewed date:01/11/2025 06:44:39 PM Interpretation: Performing Lab: Notes/Report: BRUSH-SPATULA CERVIX ENDOCERVIX [facility] , Age Gdln ACOG Testing Note . Age Algo ACOG Lory... 30-65 01 ------ ------ TESTS RESULT FLAG UNITS REF RANGE LAB Performed at: Source.............Cervix;E ndocervix 01 =G [facility] [place] FLAG LEGEND: Lucy Carbajal MD, Clinician Provided Cytology Information ------ [address] [place] [address] L-Low Normal,H-High Normal,LL-Alert Low,HH-Alert High No. of containers..01 ThinPrep Vial <-Panic Low,>-Panic High,A-Abnormal,AA-Critical Abnormal IGP, Aptima HPV, rfx 16/18,45 Note . Satisfactory for evaluation. Endocervical and/or squamous metaplastic Note: Note 02 cancer. Both false-positive and false-negative reports do . 02 ------ This liquid based ThinPrep(R) pap test was screened with [address] [place] [address] HPV Genotype Reflex Note 02 should not be used as the sole means of detecting cervical FLAG LEGEND: TESTS RESULT FLAG UNITS REF RANGE LAB 02 [facility] [place] <-Panic Low,>-Panic High,A-Abnormal,AA-Critical Abnormal Test Methodology: Note 02 ------ ------ cells (endocervical component) are present. detection of premalignant and malignant conditions of the DIAGNOSIS: 02 The Pap smear is a screening test designed to aid in the Performed by: 02 the use of an image guided system. Specimen adequacy: 02 NEGATIVE FOR INTRAEPITHELIAL LESION OR MALIGNANCY. Lucy Carbajal MD, Genoveva Rhodes, Manager Of Patient (ASCP) Performed at: uterine cervix. It is not a diagnostic procedure and L-Low Normal,H-High Normal,LL-Alert Low,HH-Alert High occur. Criteria not met, HPV Genotype not performed. HPV Aptima Negative Negative [address] [facility] [place] [id number] risk HPV types (16,18,31,33,35,39,45,51,52 ,56,58,59,66,68) [address] [place], [place] [phone] Performed at: = - [facility] This nucleic acid amplification test detects fourteen high- Performed at: [facility] without differentiation. Final Finisher Forging Dies: Lucy Carbajal MD, Phone: [phone] Final Finisher Forging Dies: Lucy Carbajal MD, Phone: [phone] Performing Lab: see note [facility] LB DIRECT LDL Reviewed date:02/15/2025 06:11:00 PM Interpretation: Performing Lab: Notes/Report: [facility] , LDL Cholesterol Direct 108 100-129 mg/dl NEAR OR ABOVE OPTIMAL 160-189 mg/dl HIGH >190 mg/dl VERY HIGH <100 mg/dl OPTIMAL 130-159 mg/dl BORDERLINE HIGH Performing Lab: see note ML - [facility] FREE T3 Reviewed date:02/15/2025 06:11:00 PM Interpretation: Performing Lab: Notes/Report: [facility] , Free T3 3.19 2.18-3.98 pg/mL Performing Lab: see note ML - [facility] LB GLYCOHEMOGLOBIN A1C Reviewed date:02/15/2025 06:11:00 PM Interpretation: Performing Lab: Notes/Report: [facility] , Glycohemoglobin A1C 11.9 4.5-6.2 % > 7.0 ACTION SUGGESTED ADA RECOMMENDED LIMIT 4.0 - 6.0 ADA THERAPEUTIC TARGET < 7.0 Estimated Average Glucose 295 Performing Lab: see note ML - [facility] IRON Reviewed date:02/15/2025 06:11:00 PM Interpretation: Performing Lab: Notes/Report: [facility] , Iron 62.0 50.0-170.0 ug/dL Performing Lab: see note ML - [facility] LB LIPID PROFILE Reviewed date:02/15/2025 06:11:00 PM Interpretation: Performing Lab: Notes/Report: [facility] , Triglycerides 578 <=150 mg/dL Cholesterol 228 <=200 mg/dL HDL Cholesterol 38 40-60 mg/dL <40 mg/dl - HIGH CARDIOVASCULAR RISK > or =60 mg/dl - LOW CARDIOVASCULAR RISK VLDL CHOLESTEROL 115.6 Chol HDL Ratio 6.0 >11.0 HIGH RISK 4.4 - 7.1 AVERAGE RISK 7.1 - 11.0 MODERATE RISK 3.3 - 4.4 LOW RISK Performing Lab: see note - [facility] LB PROF 14(COMP METB) Reviewed date:02/15/2025 06:11:00 PM Interpretation: Performing Lab: Notes/Report: [facility] , Sodium 132 136-145 mmol/L Potassium 4.1 3.5-5.1 mmol/L Chloride 98 98-107 mmol/L Carbon Dioxide 24.8 21.0-32.0 mmol/L Anion Gap 13.3 Glucose 424 74-106 mg/dL Blood Urea Nitrogen 18.0 7.0-18.0 mg/dL Creatinine 0.66 0.55-1.02 mg/dL Estimated GFR ( Lashae >60 >=60 mL/min/1.73m 2 Estimated GFR (Non- Ivette >60 >=60 mL/min/1.73m 2 BUN Creatinine Ratio 27.3 Calcium 9.5 8.5-10.1 mg/dL Bilirubin Total 0.6 0.2-1.0 mg/dL Aspartate Amino Transferase 8 15-37 U/L Alanine Aminotransferase 30 14-59 U/L Alkaline Phosphatase 166 46-116 U/L Total Protein 7.5 6.4-8.2 g/dL Albumin Level 3.4 3.4-5.0 g/dL Globulin 4.1 Albumin Globulin Ratio 0.8 Performing Lab: see note ML - [facility] LB T4 Reviewed date:02/15/2025 06:11:00 PM Interpretation: Performing Lab: Notes/Report: [facility] , T4 Thyroxine 8.50 4.80-13.90 ug/dL Performing Lab: see note - [facility] LB TSH Reviewed date:02/15/2025 06:11:00 PM Interpretation: Performing Lab: Notes/Report: [facility] , Thyroid Stimulating Hormone 1.596 0.358-3.740 u IU/mL Performing Lab: see note ML - [facility] LB CBC AUTO DIFF Reviewed date:02/15/2025 06:11:00 PM Interpretation: Performing Lab: Notes/Report: [facility] , White Blood Count 7.1 4.0-11.0 10 3/uL Red Blood Count 5.23 4.20-5.40 10 6/uL Hemoglobin 15.0 12.0-16.0 g/dL Hematocrit 41.7 36.0-48.0 % Mean Corpuscular Volume 79.7 81.0-99.0 fL Mean Corpuscular Hemoglobin 28.7 26.7-34.0 pg Mean Corpuscular HGB Conc 36.0 29.9-35.2 g/dL Red Cell Distribution Width 12.6 11.0-15.0 % Platelet Count 268 150-450 10 3/uL Mean Platelet Volume 10.3 9.5-13.5 fL Neutrophils Percent Auto 53.3 43.0-75.0 % Lymphocytes Percent Auto 38.8 20.5-60.0 % Monocytes Percent Auto 5.6 1.7-12.0 % Eosinophils Percent Auto 1.3 0.9-7.0 % Basophils Percent Auto 0.7 0.2-2.0 % Immature Granulocytes Pct Auto 0.3 0.0-0.5 % Neutrophils Absolute Auto 3.8 1.4-6.5 10 3/uL Lymphocytes Absolute Auto 2.8 1.2-3.8 10 3/uL Monocytes Absolute Auto 0.4 0.3-0.8 10 3/uL Eosinophils Absolute Auto 0.1 0.0-0.7 10 3/uL Basophils Absolute Auto 0.1 0.0-0.1 10 3/uL Immature Granulocytes Abs Auto 0.02 0.00-0.03 10 3/uL Performing Lab: see note ML - [facility] LB Reason For Referral Reason Wound clinic Diagnosis 1 Diabetic foot ulcer (250.80) Referral Organization [facility] Referring Provider First Name Phillip Referring Provider Last Name Varinderjessica Referring Provider Speciality Family Med icine Referred Provider [facility], [facility] Referred Provider Specialty Clinic or oup practice Referral Priority Routine Medications Medication SIG (Take, Route, Frequency, Duration) Notes Start Date End Date Status Ibuprofen 800 MG 1 tablet with food o r milk as needed Orally every 8 hrs 09/18/2024 Active Insulin Syringe 31G X 5/16 1 ML Use 1 syringe to drawn insulin TID for 90 days 09/01/2024 Active Atorvastatin Calcium 80 MG TAKE 1 TABLET BY MOUTH ONCE DAILY Oral Once a day for 30 days Active Lisinopril 20 MG 1 tablet Orally Once a day for 30 days Active Brilinta 90 MG 1 tablet Orally Twic e a day for 30 days 02/14/2025 Active Reglan 10 MG 1 tablet before meal s Orally four times daily for 30 days Active Citalopram Hydrobromide 20 MG 1 tablet Orally Once a day for 30 days Active Aspirin Adult Low Dose 81 MG 1 tablet Orally Once a day for 30 days Active NovoLOG 100 UNIT/ML Inject Injection 5 units for every 50 over 150- max dose 60U per day for 50 days Active Glucose Meter Test - machien and strips and lancets In Vitro tid needs machine to match strips 08/31/2024 Active Pen [place] 5/16 31G X 8 MM as directed Active Tricor 145 MG 1 tablet Orally Once a day for 30 days 02/16/2025 Active Insulin Aspart FlexPen 100 UNIT/ML 50 units Subcutaneous BID for 30 days 09/19/2024 Active Social History Tobacco Use: Social History [...] ulcer due to type 2 diabetes mellitus (6874993477433) Type 2 diabetes mellitus with foot ulcer (E11.621) Active confirmed Problem 93573723 Nasal congestion (R09.81) Active confirmed Problem Chest pain (69998007) Chest pain (R07.9) Active confirmed Problem Shoulder pain (59496671) Shoulder pain (M25.519) Active confirmed Problem Well adult (785517554) Well adult (Z00.00) Active confirmed Problem Shingles (6481133) Shingles (B02.9) Active confirmed Problem Diabetic foot (795045082) Diabetic foot (E11.8) Active confirmed Problem Otitis externa (0478454) Otitis externa (H60.90) Active confirmed Problem Acute myocardial infarction (15273171) Acute IL (I21.3) Active confirmed Problem Chronic ulcer of right heel (53485836677397 102) Chronic ulcer of right heel (L97.419) Active confirmed Problem 97225766 Acute non-recurrent sinusitis, unspecified location (J01.90) Active confirmed Problem Diabetes mellitus (19308430) Diabetes mellitus (E11.9) Active confirmed Problem 400212406 Diabetic foot ulcer (250.80) Active confirmed Vital Signs Temperature 98.7 degrees Fahrenheit 10/26/2024 Blood pressure diastolic 84 mm Hg 02/14/2025 Height 65 in 02/14/2025 Blood pressure systolic 120 mm Hg 02/14/2025 Weight 176.2 lbs 02/14/2025 BMI 29.32 kg/m2 02/14/2025 Encounters Encounter Location Date Provider Diagnosis [address] [place] [address] 08/25/2024 Phillip Wolf [address] [place] [address] 09/01/2024 Phillip Wolf [facility] [address] [place] [address] 09/11/2024 Phillip [facility] [address] [place] [address] 09/19/2024 Phillip Wolf Diabetes mellitus E1 1.9 [address] [place] [address] 10/26/2024 Phillip Wolf [facility] [address] [place] [address] 01/22/2025 Phillip Wolf [facility] [address] [place] [address] 02/14/2025 Phillip Wolf Well adult Z00.00 an d Diabetes mellitus E11.9 [facility] [address] [place] [address] 02/15/2025 Phillip Wolf [facility] [address] [place] [address] 06/19/2024 Phillip Hoy Acute non-recurrent sinusitis, unspecified location J01.90 and Nasal congestion R09.[address] [address] 08/31/2024 Phillip Hoy Diabetic foot ulcer 250.80 and Diabetic foot E11.[address] [address] 09/18/2024 Phillip Hoy Diabetes mellitus E1 1.[address] [address] 10/26/2024 Phillip Hoy Acute bronchitis, unspecified organism J20.[address] [address] 02/14/2025 Phillip Hoy Well adult Z00.[address] [address] 07/10/2024 Phillip Hoy Shingles B02.9 and Otitis externa H60.[address] [address] 08/18/2024 Phillip Hoy Acute non-recurrent sinusitis, unspecified location J01.90 ; Nasal congestion R09.81 and Shingles B02.[address] [address] 08/21/2024 Phillip Hoy Diabetic foot ulcer 250.80 Assessments Encounter Date Diagnosis (ICD Code) Assessment Notes Treatment Notes Treatment Clinical Notes Section Notes 06/19/2024 Acute non-recurrent sinusitis, unspecified location (ICD-10 - J01.90) Rest and drink more liquids, especially water. You may use a humidifier or vaporizer to help keep the drainage moist. Kfhu-wfy-zehxpau Nasal Saline may help the stuffy and runny nose. Use Ibuprofen and or Tylenol as needed for fever, chills, body aches or pain. Children 5 years old should not be given ijyo-ruf-mqajyim cough and cold medications such as guaifenesin and dextromethorphan. If you're over age 5, you may try bfyh-cuc-hzxjcnd cold medications such as guaifenesin and dextromethorphan, [...] vaporizer to help keep the drainage moist. Egrx-rag-bvpjpeb Nasal Saline may help the stuffy and runny nose. Use Ibuprofen and or Tylenol as needed for fever, chills, body aches or pain. Children 5 years old should not be given pfth-sis-iagsmck cough and cold medications such as guaifenesin and dextromethorphan. If you're over age 5, you may try vjsf-uef-nvvuifw cold medications such as guaifenesin and dextromethorphan, [...] vaporizer to help keep the drainage moist. Tppr-gta-jyouvop Nasal Saline may help the stuffy and runny nose. Use Ibuprofen and or Tylenol as needed for fever, chills, body aches or pain. Children 5 years old should not be given tbmz-xml-dhnrtvv cough and cold medications such as guaifenesin and dextromethorphan. If you're over age 5, you may try sxrk-jxz-wyunkwg cold medications such as guaifenesin and dextromethorphan, [...] to the emergency room or call 911 02/14/2025 Well adult (ICD-10 - Z00.00) 09/19/2024 Diabetes mellitus (ICD-10 - E11.9) 02/14/2025 Well adult (ICD-10 - Z00.00) 02/14/2025 Diabetes mellitus (ICD-10 - E11.9) 08/18/2024 Shingles (ICD-10 - B02.9) 06/19/2024 Nasal congestion (ICD-10 - R09.81) Plan Of Treatment Pending Test Test Name Order Date HEMOGLOBIN A1C (GLYCO) 02/14/2025 IRON, TOTAL 02/14/2025 LIPID PANEL (CHOL/TRIG/HDL/LDL) 02/15/20 25 STOOL OCCULT BLOOD 02/14/2025 THYROID PANEL (T4/TSH/FREE T3) 5 MM screening mammo BI 02/14/2025 CMP (COMP MET H[place]IARD) w/eGFR CKD-EPI 2024 CBC WITH DIFF 02/14/2025 Insurance Providers Payer Name Payer Address Payer Phone Subscriber Number Group Number Insured Name Patient Relationship to Insured Coverage Start Date Coverage End Date [employer] [place] [employer] [address] [place] [address] [id number] Renu Ortega Self - patient is the insured 4 Medical (General) History Medical History History ICD Code Diabetes mellitus E11.9 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
--- OUTSIDE RECORDS SUMMARY | 2025-02-22 09:17 | XMS_ITS | Clinical Summary ---
Author Organization [facility] Address [address] [place] [address] Care Team Providers Care Physician Liaison Name Role Phone Gentry Wolf MD Primary Care Provider [phone] Allergies Active Allergy Reactions Criticality Noted Date Comments Penicillins Rash,Hives,Unknown Low 05/26/2019 Other Reaction(s): Other Medications No known medications Encounters Date Type Department Care Team Description 01/17/2025 Orders Only [facility] [address] [place] [address] Daysi Mendoza MA 01/15/2025 Results Follow-Up [facility] [address] [place] [address] Celeste Kaye LPN 01/11/2025 Abstract [facility] [address] [place] [address] Maya Lugo MA 01/11/2025 Telephone [facility] [address] [place] [address] Maya Lugo MA 01/08/2025 3:00 PM EDT Office Visit [facility] [address] [place] [address] Basia Brandt PA Yeast infection (Primary Dx); Well woman exam with routine gynecological exam; Acute vaginitis 01/08/2025 Clinisync Result Encounter [facility] External [facility] Unsolicited Basia Brandt PA 01/08/2025 External Result Encounter [facility] External Department Unsolicited Leland Claros DO 01/08/2025 Bamboo flowsheet [facility] OB [address] [place] [address] [place] [address] Basia Brandt PA 01/08/2025 Travel from Last [...] 01/14/2026 3:00 PM EDT Office Visit [facility] OB [address] [place], [place] [address] [id number] Leland Claros, [address] [place] [address] Procedures Procedure Name Priority Date/Time Associated Diagnosis Comments RECURRENT VAGINITIS (HTRX) Routine 01/08/2025 4:35 PM EDT IGP,APTIMA HPV,AGE GDLN Routine 01/08/2025 2:52 PM EDT PAP SMEAR Routine 01/08/2025 12:00 AM EDT from Last 3 Months Results * (ABNORMAL) RECURRENT VAGINITIS (HTRX) (01/08/2025 4:35 PM EDT) [facility] ATOPOBIUM VAGINAE 15.510(A) 19.961 - 24.689 ppm 01/11/2025 6:38 AM EDT [facility] ATOPOBIUM VAGINAE Detected(A) 19.961 - 24.689 ppm 01/11/2025 6:38 AM EDT [facility] BVAB 2,3 (BACTERIAL VAGINOSIS ASSOCIATED BACTERIA 2, 3); MOBILUNCUS SPP 0.000 19.961 - 24.689 ppm 01/11/2025 6:38 AM EDT [facility] BVAB 2,3 (BACTERIAL VAGINOSIS ASSOCIATED BACTERIA 2, 3); MOBILUNCUS SPP Not Detected 19.961 - 24.689 ppm 01/11/2025 6:38 AM EDT [facility] HEATHER ALBICANS, PARAPSILOSIS, TROPICALIS 0.000 19.961 - 30.770 ppm 01/11/2025 6:38 AM EDT [facility] HEATHER ALBICANS, PARAPSILOSIS, TROPICALIS Not Detected 19.961 - 30.770 ppm 01/11/2025 6:38 AM EDT [facility] HEATHER GLABRATA 0.000 23.000 - 32.138 ppm 01/11/2025 6:38 AM EDT [facility] HEATHER GLABRATA Not Detected 23.000 - 32.138 ppm 01/11/2025 6:38 AM EDT [facility] HEATHER KRUSEI 0.000 23.000 - 32.271 ppm 01/11/2025 6:38 AM EDT [facility] HEATHER KRUSEI Not Detected 23.000 - 32.271 ppm 01/11/2025 6:38 AM EDT [facility] CHLAMYDIA TRACHOMATIS 0.000 23.000 - 31.467 ppm 01/11/2025 6:38 AM EDT [facility] CHLAMYDIA TRACHOMATIS Not Detected 23.000 - 31.467 ppm 01/11/2025 6:38 AM EDT [facility] GARDNERELLA VAGINALIS 17.198(A) 19.961 - 24.689 ppm 01/11/2025 6:47 AM EDT [facility] GARDNERELLA VAGINALIS Detected(A) 19.961 - 24.689 ppm 01/11/2025 6:47 AM EDT [facility] MEGASPHAERA (TYPES 1, 2) 20.579(A) 19.961 - 24.689 ppm 01/11/2025 6:38 AM EDT [facility] MEGASPHAERA (TYPES 1, 2) Detected(A) 19.961 - 24.689 ppm 01/11/2025 6:38 AM EDT [facility] NEISSERIA GONORRHOEAE 0.000 23.000 - 32.117 ppm 01/11/2025 6:38 AM EDT [facility] NEISSERIA GONORRHOEAE Not Detected 23.000 - 32.117 ppm 01/11/2025 6:38 AM EDT [facility] TRICHOMONAS VAGINALIS 0.000 23.000 - 32.119 ppm 01/11/2025 6:38 AM EDT [facility] TRICHOMONAS VAGINALIS Not Detected 23.000 - 32.119 ppm 01/11/2025 6:38 AM EDT [facility] MYCOPLASMA GENITALIUM 0.000 19.961 - 24.689 ppm 01/11/2025 6:38 AM EDT [facility] MYCOPLASMA GENITALIUM Not Detected 19.961 - 24.689 ppm 01/11/2025 6:38 AM EDT [facility] ERMB, C; MEFA 15.815(A) 23.000 - 27.611 ppm 01/11/2025 6:38 AM EDT [facility] ERMB, C; MEFA Detected(A) 23.000 - 27.611 ppm 01/11/2025 6:38 AM EDT [facility] TET B, TET M 12.593(A) 23.000 - 27.778 ppm 01/11/2025 6:38 AM EDT [facility] TET B, TET M Detected(A) 23.000 - 27.778 ppm 01/11/2025 6:38 AM EDT [facility] Tissue 01/08/2025 4:35 PM EDT 01/11/2025 2:28 AM EDT us Leland Claros DO LAB BLOOD ORDERABLES Final Resul t [facility] [address] [place] [address] * IGP,APTIMA HPV,AGE GDLN (01/08/2025 2:52 PM EDT) AGE GDLN ACOG TESTING Note . [facility] Comment: TESTS RESULT FLAG UNITS REF RANGE LAB Clinician Provided Cytology Information Source.............Cervix;Endocervix No. of containers..01 ThinPrep Vial Age Algo ACOG Lory... 30-65 FLAG LEGEND: L-Low Normal,H-High Normal,LL-Alert Low,HH-Alert High <-Panic Low,>-Panic High,A-Abnormal,AA-Critical Abnormal Performed at: 01 =G [facility] [place] [address] Lucy Carbajal MD, IGP, APTIMA HPV, RFX 16/18,45 Note . [facility] Comment: TESTS RESULT FLAG UNITS REF RANGE LAB DIAGNOSIS: 02 NEGATIVE FOR INTRAEPITHELIAL LESION OR MALIGNANCY. Specimen adequacy: 02 Satisfactory for evaluation. Endocervical and/or squamous metaplastic cells (endocervical component) are present. Performed by: 02 Genoveva Rhodes, Dust Mixer ([facility]) . 02 Note: Note 02 [...] <-Panic Low,>-Panic High,A-Abnormal,AA-Critical Abnormal Performed at: [address] [address] Lucy Carbajal MD, HPV APTIMA Negative Negative [facility] Comment: This nucleic acid amplification test detects fourteen high- risk HPV types (16,18,31,33,35,39,45,51,52,56,58,59,66,68) without differentiation. Performed at: = - [address] [id number] Sub Assembly Team Worker: Lucy Carbajal MD, Phone: [phone] Performed at: [facility] [address] [id number] Sub Assembly Team Worker: Lucy Carbajal MD, Phone: [phone] 01/08/2025 2:52 PM EDT 01/08/2025 9:47 PM EDT Narrative [facility] - 01/11/2025 5:08 PM EDT BRUSH-SPATULA CERVIX ENDOCERVIX Basia BLOOM LAB BLOOD ORDERABLES Final Resul t Performing Organization Address [facility]/ZIP Co de Phone Number [facility] * Pap Smear (01/08/2025 12:00 AM EDT) Swab Cervical swab / Unknown Basia BLOOM LAB CYTOLOGY ORDERABLES Final Re sult EXTERNAL LAB from Last 3 Months Insurance [facility] MEDICAID Care Teams Physician Liaison Relationship Specialty Start Date End Date Gentry Wolf MD [address] [place] [id number] PCP - General Family Medicine 11/16/24
--- OUTSIDE RECORDS SUMMARY | 2025-02-22 09:17 | XMS_ITS | Clinical Summary ---
Author Organization [facility] Address [address] [place] [address] Care Team Providers Care Over Short And Damage Clerk Name Role Phone Gentry Wolf MD Primary Care Provider [phone] Allergies Active Allergy Reactions Criticality Noted Date [...] patient's age to complete this topic Insurance [facility] MEDICAID Care Teams Over Short And Damage Clerk Relationship Specialty Start Date End Date Gentry Wolf MD [address] [facility] [address] [address] PCP - General 02/04/23
== END 2025-02-22 09:12 | disposition home or self-care (01) ==
LOC: MAMMO 09:12
PROVIDERS: PCP Family Medicine; Visit Provider Family Medicine
DX: Z00.00 Encounter for general adult medical examination without abnormal findings (principal); Z12.31 Encounter for screening mammogram for malignant neoplasm of breast; Z80.1 Family history of malignant neoplasm of trachea, bronchus and lung
CPT/HCPCS: 77063; 77067

== ENCOUNTER 2025-05-12 13:36 | Observation (INO) | payer OTHER, SELFPAY ==
--- OUTSIDE RECORDS SUMMARY | 2025-04-24 06:05 | XMS_ITS | Continuity of Care Document ---
Author Organization [facility] Address [address] [place] [phone] Phone Care Team Providers Care Chief Chemist Name Role Phone Priscilla Marlow DDS Unavailable [...] Procedure Date Nutrit Couns For Control Of [place] Dis Apr Post Op Visit Dental Nutrit Couns For Control Of [place] Dis Mar Extract; Erupted Th/exposted Rt 025 Extract; Erupted Th/exposted Rt 025 Extract; Erupted Th/exposted Rt 025 Extract; Erupted Th/exposted Rt 025 Extract; Erupted Th/exposted Rt 025 Extract; Erupted Th/exposted Rt 025 Extract; Erupted Th/exposted Rt 025 Extract; Erupted Th/exposted Rt 025 Extract; Erupted Th/exposted Rt 025 Extract; Erupted Th/exposted Rt 025 Extract; Erupted Th/exposted Rt 025 Nutrit Couns For Control Of [place] Dis Mar Oral Hygiene Instruction Extraction Surgical/erupt Tooth 025 Extract; Erupted Th/exposted Rt 025 Extract; Erupted Th/exposted Rt 025 Extract; Erupted Th/exposted Rt 025 Extract; Erupted Th/exposted Rt 025 Extract; Erupted Th/exposted Rt 025 Alveoloplasty W/extractions 1 - 3 Teeth Oral Hygiene Instruction Nutrit Couns For Control Of [place] Dis November Extract; Erupted Th/exposted Rt 025 Extract; Erupted Th/exposted Rt 025 Nutrit Couns For Control Of [place] Dis November Comp Oral Eval New/estab Patient 2024 Bitewings Four Films Intraoral-periapical 1st Film Bitewig-single Film Oral Hygiene Instruction Limited Oral Eval Extract; Erupted Th/exposted Rt 025 Intraoral-periapical 1st Film Oral Hygiene Instruction Limited Oral Eval Extract; Erupted Th/exposted Rt 024 Nutrit Couns For Control Of [place] Dis Sep Panoramic Film Intraoral-periapical 1st Film 2 Icohfyqhu-pkimyskfcj-ewhh Additional Sep Xelqmvlrj-fgequuxvxq-sxof Additional Sep Comp Oral Eval New/estab Patient 2021 Oral Hygiene Instruction Intraoral-periapical 1st Film 1 Limited Oral Eval Extract; Erupted Th/exposted Rt 021 Advance Directives Directive Yes / No Effective Date File Name No Information Encounters Encounter Description Practice Location Reason(s) For Visit Diagnoses Date Provider Providers Copied on Encounter [facility], [address] [place] [address], [place], [place], [id number], tel:[phone] [facility] Dental Clinic POV (chief complaint) Encounter for screening for dental disorders Marlow DDS Yixue. [address] [place], [address], [place]. tel:[phone] [facility], [address] [place], [place], [id number], [place] tel:[phone] [facility] ext (chief complaint) Encounter for screening for dental disorders Marlow DDS Yixue. [address] [place], [address], [place]. tel:[phone] [facility], [address] [place], [place], [id number], [place] tel:[phone] [facility] ext (chief complaint) Encounter for screening for dental disorders Marlow DDS Y[address]ue. [address] [place], [address], [place]. tel:[phone] [facility], [address], [place], [id number], [place] tel:[phone] [facility] extraction (chief complaint) Encounter for screening for dental disorders Marlow DDS Yixue. [address] [place], [address], [place]. tel:[phone] [facility], [address] [place], [place], [id number], [place] tel:[phone] [facility] Encounter for screening for dental disorders Marlow DDS Yixue. [address] [place], [address], [place]. tel:[phone] [facility], [address], [place], [id number], [place] tel:[phone] [facility] ext (chief complaint) Encounter for screening for dental disorders Marlow DDS Yixue. [address] [place], [address], [place]. tel:[phone] [facility], [address] [place], [place], [id number], [place] tel:[phone] [facility] DN (chief complaint) Encounter for screening for dental disorders Kashmir DDS Gabyxue. [address] [place], [address], [place]. tel:[phone] [facility], [address], [place], [id number], [place] tel:[phone] [facility] Dental Clinic dental limited (chief complaint) Encounter for screening for dental disorders Marlow DDS Gabyxjayda. [address] [place], [address], [place]. tel:[phone] [facility], [address] [place] [address], [id number], [place] tel:[phone] [facility] Dental Clinic Encounter for screening for dental disorders Tino DMD Murtaza. [address] [place], [place], [id number], [place]. tel:[phone] [facility], [address] [place] [address], [id number], [place] tel:[phone] Dental Clinic DN (chief complaint) Encounter for screening for dental disorders Luis DMD Eri. [address] [place] [address], [id number], [place]. tel:[phone] [facility], [address] [place] [address], [id number], [place] tel:[phone] Dental Clinic DN (chief complaint) Encounter for screening for dental disorders Werner [place]. [address] [place] [address], [address], [place]. tel:[phone] Family History Family Member Type Diagnosis Age At Onset No Information Payers Payer name Insurance type Covered democrat ID Authoriza tion(s) No Information Social History [...] And Reason For Visit From encounter dated 04/24/2025 10:05'. POV (chief complaint) Reason For Referral [...] Goal Influenza vaccine. Due on due Goal Hep A. Due on du e Goal Unhealthy drug use screening . Due on due Goal Tdap. Due on due Goal Lipid panel. Due on due Goal Hepatitis C screening. Due o n due Goal Influenza vaccine. Due on Au due Goal PRAPARE ASSESSMENT. Due on A due Goal Tdap Vaccine. Due on 2024 due Goal Depression screening. Due on due Goal HPV. Due on due Goal Lipid panel. Due [...] use screening . Due on due Goal Hepatitis C screening. Due o n due Goal Tdap Vaccine. Due on 2024 due Goal Hep A. Due on du [...]
--- OUTSIDE RECORDS SUMMARY | 2025-04-24 06:05 | XMS_ITS | Continuity of Care Document ---
Author Organization [facility] Address [address] [place] [phone] Phone Care Team Providers Care Residential Therapist Name Role Phone Priscilla Marlow DDS Unavailable [...] Procedure Date Nutrit Couns For Control Of [place] Dis Apr Post Op Visit Dental Nutrit Couns For Control Of [place] Dis Mar Extract; Erupted Th/exposted Rt 025 Extract; Erupted Th/exposted Rt 025 Extract; Erupted Th/exposted Rt 025 Extract; Erupted Th/exposted Rt 025 Extract; Erupted Th/exposted Rt 025 Extract; Erupted Th/exposted Rt 025 Extract; Erupted Th/exposted Rt 025 Extract; Erupted Th/exposted Rt 025 Extract; Erupted Th/exposted Rt 025 Extract; Erupted Th/exposted Rt 025 Extract; Erupted Th/exposted Rt 025 Nutrit Couns For Control Of [place] Dis Mar Oral Hygiene Instruction Extraction Surgical/erupt Tooth 025 Extract; Erupted Th/exposted Rt 025 Extract; Erupted Th/exposted Rt 025 Extract; Erupted Th/exposted Rt 025 Extract; Erupted Th/exposted Rt 025 Extract; Erupted Th/exposted Rt 025 Alveoloplasty W/extractions 1 - 3 Teeth Oral Hygiene Instruction Nutrit Couns For Control Of [place] Dis November Extract; Erupted Th/exposted Rt 025 Extract; Erupted Th/exposted Rt 025 Nutrit Couns For Control Of [place] Dis November Comp Oral Eval New/estab Patient 2024 Bitewings Four Films Intraoral-periapical 1st Film Bitewig-single Film Oral Hygiene Instruction Limited Oral Eval Extract; Erupted Th/exposted Rt 025 Intraoral-periapical 1st Film Oral Hygiene Instruction Limited Oral Eval Extract; Erupted Th/exposted Rt 024 Nutrit Couns For Control Of [place] Dis Sep Panoramic Film Intraoral-periapical 1st Film 2 Cketmawvr-gnkvckbewl-edli Additional Sep Ijlqtncjz-ffdwbdfwml-ujsu Additional Sep Comp Oral Eval New/estab Patient 2021 Oral Hygiene Instruction Intraoral-periapical 1st Film 1 Limited Oral Eval Extract; Erupted Th/exposted Rt 021 Advance Directives Directive Yes / No Effective Date File Name No Information Encounters Encounter Description Practice Location Reason(s) For Visit Diagnoses Date Provider Providers Copied on Encounter [facility], [address] [place] [address], [place], [place], [id number], tel:[phone] [facility] Dental Clinic POV (chief complaint) Encounter for screening for dental disorders Marlow DDS Yixue. [address] [place], [address], [place]. tel:[phone] [facility], [address], [place], [id number], [place] tel:[phone] [facility] ext (chief complaint) Encounter for screening for dental disorders Marlow DDS Yixue. [address] [place], [address], [place]. tel:[phone] [facility], [address], [place], [id number], [place] tel:[phone] [facility] ext (chief complaint) Encounter for screening for dental disorders Marlow DDS Yixue. [address] [place], [address], [place]. tel:[phone] [facility], [address], [place], [id number], [place] tel:[phone] [facility] extraction (chief complaint) Encounter for screening for dental disorders Marlow DDS Yixue. [address] [place], [address], [place]. tel:[phone] [facility], [address], [place], [id number], [place] tel:[phone] [facility] Encounter for screening for dental disorders Marlow DDS Yixue. [address] [place], [address], [place]. tel:[phone] [facility], [address], [place], [id number], [place] tel:[phone] [facility] ext (chief complaint) Encounter for screening for dental disorders Marlow DDS Yixue. [address] [place], [address], [place]. tel:[phone] [facility], [address], [place], [id number], [place] tel:[phone] [facility] DN (chief complaint) Encounter for screening for dental disorders Kashmir DDS Gabyx[place]. [address] [place], [address], [place]. tel:[phone] [facility], [address], [place], [id number], [place] tel:[phone] [facility] Dental Clinic dental limited (chief complaint) Encounter for screening for dental disorders Marlow DDS Gabyxjayda. [address] [place], [address], [place]. tel:[phone] [facility], [address] [place] [address], [id number], [place] tel:[phone] [facility] Dental Clinic Encounter for screening for dental disorders Tino DMD Murtaza. [address] [place], [place], [id number], [place]. tel:[phone] [facility], [address] [place] [address], [id number], [place] tel:[phone] Dental Clinic DN (chief complaint) Encounter for screening for dental disorders Luis DMD Eri. [address] [place] [address], [id number], [place]. tel:[phone] [facility], [address] [place] [address], [id number], [place] tel:[phone] Dental Clinic DN (chief complaint) Encounter for screening for dental disorders Werner [place]. [address] [place] [address], [address], [place]. tel:[phone] Family History Family Member Type Diagnosis Age At Onset No Information Payers Payer name Insurance type Covered alliance party ID Authoriza tion(s) No Information Social [...] PRAPARE ASSESSMENT. Due on A due Goal Lipid panel. Due on due [...]
[2025-05-12] VITALS (29 sets, daily range): BP systolic 139–190; BP diastolic 87–104; PULSE 82–112; TEMP 36.8–37.1; O2SAT 95–100; BMI 28.6; BMI 28.2
--- OUTSIDE RECORDS SUMMARY | 2025-05-12 13:45 | XMS_ITS | Encounter Summary ---
Author Organization [facility] Address [address] [facility] [place] [address] Care Team Providers Care Eyelet Riveter Name Role Phone Gentry Wolf MD Primary Care Provider [phone] Encounter Details Date Type Department Care Team (Late Contact Info) Description 01/17/2025 Orders Only [facility] [address] [facility] [address] [place] [address] Daysi Mendoza MA [address] [place] [address] Social History Tobacco Use Types Packs/Day Years [...] Description 01/14/2026 3:00 PM EDT Office Visit [facility] [address] [facility] [place] [phone] Leland Claros DO [address] [facility] [place] [address] documented as of this encounter Procedures Procedure Name Priority Date/Time Associated Diagnosis Comments PAP SMEAR Routine 01/08/2025 12:00 AM EDT documented in this encounter Results * Pap Smear (01/08/2025 12:00 AM EDT) Swab Cervical swab / Unknown [facility] CYTOLOGY ORDERABLES Final Re sult EXTERNAL LAB documented in this encounter Visit Diagnoses Not on filedocumented in this encounter Care Teams Eyelet Riveter Relationship Specialty Start Date End Date Gentry Wolf MD [address] [facility] [place] [address] PCP - General Family Medicine 11/16/24 documented as of this encounter
--- OUTSIDE RECORDS SUMMARY | 2025-05-12 13:45 | XMS_ITS | Encounter Summary ---
Author Organization [facility] Address [address] [place] [address] Care Team Providers Care Search Marketing Analyst Name Role Phone Gentry Wolf MD Primary Care Provider [phone] Encounter Details Date Type Department Care Team (Late Contact Info) Description 01/11/2025 Abstract [facility] [address] [place] [address] Maya Lugo MA Social History Tobacco Use [...] Description 01/14/2026 3:00 PM EDT [place] [address] Leland Claros DO [address] [facility] [place] [address] documented as of this encounter Visit Diagnoses Not on filedocumented in this encounter Care Teams Search Marketing Analyst Relationship Specialty Start Date End Date Gentry Wolf MD [address] [facility] [place] [phone] PCP - General Family Medicine 11/16/24 documented as of this encounter
--- OUTSIDE RECORDS SUMMARY | 2025-05-12 13:45 | XMS_ITS | Encounter Summary ---
Author Organization [facility] Address [address] [place] [address] Care Team Providers Care Lapel Padder Blindstitch Name Role Phone Gentry Wolf MD Primary Care Provider [phone] Encounter Details Date Type Department Care Team (Late st Contact Info) Description 01/15/2025 Results Follow-Up [facility] [place] [facility] [address] [place] [phone] Celeste Kaye LPN [address] [facility] [place] [phone] RECURRENT VAGINITIS (HTRX) Social History Tobacco Use Types Packs/Day Years [...] 01/14/2026 3:00 PM EDT Office Visit [facility] [place] [address] [facility] [place] [address] Leland Claros DO [address] [facility] [address] [place], [place] [id number] documented as of this encounter Visit Diagnoses Not on filedocumented in this encounter Care Teams Lapel Padder Blindstitch Relationship Specialty Start Date End Date Gentry Wolf MD [address] [facility] [place] [address] PCP - General Family Medicine 11/16/24 documented as of this encounter
--- OUTSIDE RECORDS SUMMARY | 2025-05-12 13:46 | XMS_ITS | Patient Health Record ---
Author Organization [facility] [place] Address [address] [place] [address] Care Team Providers Care Delivery Room Supervisor Name Role Phone Phillip Carrillo Primary Care Provider Allergies Allergen (clinical drug ingredient) Drug/Non Drug Allergy documented on EMR Reaction Allergy Type Onset Date Status Penicillin rash- childhood Drug Allergy Active Results Component Value Reference Range Notes IRON Reviewed date:02/15/2025 06:11:00 PM Interpretation: Performing Lab: Notes/Report: [facility] , Iron 62.0 50.0-170.0 ug/dL Performing Lab: see note - [facility] LB GLYCOHEMOGLOBIN A1C Reviewed date:02/15/2025 06:11:00 PM Interpretation: Performing Lab: Notes/Report: [facility] , Glycohemoglobin A1C 11.9 4.5-6.2 % ADA RECOMMENDED LIMIT 4.0 - 6.0 ADA THERAPEUTIC TARGET < 7.0 ACTION SUGGESTED > 7.0 Estimated Average Glucose 295 Performing Lab: see note ML - [facility] LB DIRECT LDL Reviewed date:02/15/2025 06:11:00 PM Interpretation: Performing Lab: Notes/Report: [facility] , LDL Cholesterol Direct 108 <100 mg/dl OPTIMAL 100-129 mg/dl NEAR OR ABOVE OPTIMAL 130-159 mg/dl BORDERLINE HIGH 160-189 mg/dl HIGH >190 mg/dl VERY HIGH Performing Lab: see note ML - [facility] LB FREE T3 Reviewed date:02/15/2025 06:11:00 PM Interpretation: Performing Lab: Notes/Report: [facility] , Free T3 3.19 2.18-3.98 pg/mL Performing Lab: see note ML - [facility] LB LIPID PROFILE Reviewed date:02/15/2025 06:11:00 PM Interpretation: Performing Lab: Notes/Report: [facility] , Triglycerides 578 <=150 mg/dL Cholesterol 228 <=200 mg/dL HDL Cholesterol 38 40-60 mg/dL > or =60 mg/dl - LOW CARDIOVASCULAR RISK <40 mg/dl - HIGH CARDIOVASCULAR RISK VLDL CHOLESTEROL 115.6 Chol HDL Ratio 6.0 3.3 - 4.4 LOW RISK 4.4 - 7.1 AVERAGE RISK 7.1 - 11.0 MODERATE RISK >11.0 HIGH RISK Performing Lab: see note - [facility] PROF 14(COMP METB) Reviewed date:02/15/2025 06:11:00 PM Interpretation: Performing Lab: Notes/Report: [facility] , Sodium 132 136-145 mmol/L Potassium [...] 0.8 Performing Lab: see note ML - [facility] LB T4 Reviewed date:02/15/2025 06:11:00 PM Interpretation: Performing Lab: Notes/Report: [facility] , T4 Thyroxine 8.50 4.80-13.90 ug/dL Performing Lab: see note ML - [facility] LB TSH Reviewed date:02/15/2025 06:11:00 PM Interpretation: Performing Lab: Notes/Report: [facility] , Thyroid Stimulating Hormone 1.596 0.358-3.740 u IU/mL Performing Lab: see note ML - [facility] LB MM tomosynthesis screening B I Reviewed date:02/22/2025 05:02:13 PM Interpretation: Performing Lab: Notes/Report: Source Facility: [place] [address] Mammography Report Signed Patient: RENU NASH MR#: [id number] : 1980 Acct:[id number] Age/Sex: 45 / F ADM Date: 02/22/25 Loc: MAMMO Attending Dr: Gentry Carrillo M.D. Ordering Physician: Gentry Carrillo M.D. Results: Date of Service: 02/22/25 Follow Up: Procedure(s): MM tomosynthesis screening BI Accession Number(s): [id number] cc: Gentry Carrillo M.D. Patient Name: RENU NASH MR#: [id number] : 1980 Exam Date: 02/22/2025 Ordering Doctor: DR GENTRY CARRILLO . RADIOLOGY REPORT PROCEDURE: MM TOMOSYNTHESIS SCREENING BI COMPARISON: None. INDICATIONS: Screening Calculator Name NCI Breast Cancer Risk Assessment Tool 5 Year Breast Cancer Risk 1.30% Lifetime Breast Cancer Risk 13.80% Personal Breast Cancer No Personal Ovarian Cancer No Treatments None Family Cancers Mother with lung cancer at age 51. LOCATION: [facility] BREAST COMPOSITION: There are scattered areas of fibroglandular density. FINDINGS: DIAGNOSTIC CATEGORY 1--NEGATIVE. RIGHT BREAST: No significant suspicious finding. LEFT BREAST: No significant suspicious finding. RECOMMENDATIONS: ROUTINE MAMMOGRAM AND CLINICAL EVALUATION IN 12 MONTHS. PLEASE NOTE: A NORMAL MAMMOGRAM DOES NOT EXCLUDE THE POSSIBILITY OF BREAST CANCER. A CLINICALLY SUSPICIOUS PALPABLE LUMP SHOULD BE BIOPSIED. Dictated by: Reji Rowe DO on 02/22/2025 at 16:28 Approved by: Reji Rowe DO on 02/22/2025 at 16:29 Dictated By: Reji Rowe M.D. Signed By: 02/22/25 1630 DD/ 5635 TD/TT: Thermostat Repairer: Tanya PUTNAM HPV,Age Gdln Reviewed date:01/11/2025 06:44:39 PM Interpretation: Performing Lab: Notes/Report: BRUSH-SPATULA CERVIX ENDOCERVIX [facility] , Age Gdln ACOG Testing Note . TESTS RESULT FLAG UNITS REF RANGE LAB ------ Clinician Provided Cytology Information Source.............Cervix;E ndocervix No. of containers..01 ThinPrep Vial Age Algo ACOG Lory... 30-65 01 ------ FLAG LEGEND: L-Low Normal,H-High Normal,LL-Alert Low,HH-Alert High <-Panic Low,>-Panic High,A-Abnormal,AA-Critical Abnormal ------ Performed at: 01 =G [facility] [place] [address] Lucy Carbajal MD, [place], Aptima HPV, rfx 16/18,45 Note . TESTS RESULT FLAG UNITS REF RANGE LAB ------ DIAGNOSIS: 02 NEGATIVE FOR INTRAEPITHELIAL LESION OR MALIGNANCY. Specimen adequacy: 02 Satisfactory for evaluation. Endocervical and/or squamous metaplastic cells (endocervical component) are present. Performed by: 02 Genoveva Rhodes, Dev Manager ([facility]) . 02 Note: Note 02 The Pap [...] Criteria not met, HPV Genotype not performed. ------ FLAG LEGEND: L-Low Normal,H-High Normal,LL-Alert Low,HH-Alert High <-Panic Low,>-Panic High,A-Abnormal,AA-Critical Abnormal ------ Performed at: [address] [address] Lucy Carbajal MD, HPV Aptima Negative Negative This nucleic acid amplification test detects fourteen high- risk HPV types (16,18,31,33,35,39,45,51,52 ,56,58,59,66,68) without differentiation. Performed at: =G - [facility] [id number] Psychiatric Secretary: Lucy Carbajal MD, Phone: [phone] Performed at: - [facility] [id number] Psychiatric Secretary: Lucy Carbajal MD, Phone: [phone] Performing Lab: see note - [facility] LB CBC AUTO DIFF Reviewed date:02/15/2025 06:11:00 PM Interpretation: Performing Lab: Notes/Report: [facility] , White Blood Count 7.1 4.0-11.0 10 [...] 3/uL Performing Lab: see note ML - [facility] LB Reason For Referral Reason Wound clinic Diagnosis 1 Diabetic foot ulcer (250.80) Referral Organization [facility] Referring Provider First Name Phillip Referring Provider Last Name Luciano Referring Provider Speciality Family [facility] icine Referred Provider [facility], [facility] Referred Provider Specialty Clinic or ou practice Referral Priority Routine Medications Medication SIG (Take, Route, Frequency, Duration) Notes Start Date End Date Status levoFLOXacin 750 MG 1 tablet Orally Once a day; Duration: 10 day(s) 04/12/2025 Active Glucose Meter Test - machien and strips and lancets In Vitro tid needs machine to match strips 08/31/2024 Active Insulin Syringe 31G X 5/16 1 ML Use 1 syringe to drawn insulin TID; Duration: 90 days 09/01/2024 Active Lisinopril 20 MG 1 tablet Orally Once a day; Duration: 30 days Active Ibuprofen 800 MG 1 tablet with food o r milk as needed Orally every 8 hrs 09/18/2024 Active Insulin Aspart FlexPen 100 UNIT/ML 60 U Subcutaneous BID; Duration: 30 days 09/19/2024 Active Aspirin Adult Low Dose 81 MG 1 tablet Orally Once a day; Duration: 30 days Active Reglan 10 MG 1 tablet before meal s Orally four times daily; Duration: 30 days Active Atorvastatin Calcium 80 MG TAKE 1 TABLET BY MOUTH ONCE DAILY Oral Once a day; Duration: 30 days Active Tricor 145 MG 1 tablet Orally Once a day; Duration: 30 days 02/16/2025 Active NovoLOG 100 UNIT/ML Inject Injection 5 units for every 50 over 150- max dose 60U per day; Duration: 50 days Active Pen Diamond 5/16 31G X 8 MM as directed Active Brilinta 90 MG 1 tablet Orally Twic e a day; Duration: 30 days 02/14/2025 Active Citalopram Hydrobromide 20 MG 1 tablet Orally Once a day; Duration: 30 days Active Social History Tobacco Use: Social History [...] ulcer due to type 2 diabetes mellitus (1862362200011) Type 2 diabetes mellitus with foot ulcer (E11.621) Active confirmed Problem Nasal congestion (02402976) Nasal congestion (R09.81) Active confirmed Problem Chest pain (57022654) Chest pain (R07.9) Active confirmed Problem Shoulder pain (85170946) Shoulder pain (M25.519) Active confirmed Problem Well adult (258345704) Well adult (Z00.00) Active confirmed Problem Shingles (7178816) Shingles (B02.9) Active confirmed Problem Diabetic foot (241361331) Diabetic foot (E11.8) Active confirmed Problem Otitis externa (0343010) Otitis externa (H60.90) Active confirmed Problem Acute myocardial infarction (24793797) Acute [place] (I21.3) Active confirmed Problem Chronic ulcer of right heel (05109810358262 102) Chronic ulcer of right heel (L97.419) Active confirmed Problem Acute sinusitis (21311644) Acute non-recurrent sinusitis, unspecified location (J01.90) Active confirmed Problem Diabetes mellitus (97540784) Diabetes mellitus (E11.9) Active confirmed Problem Diabetic foot ulcer (757222619) Diabetic foot ulcer (250.80) Active confirmed Vital Signs Temperature 98.7 degrees Fahrenheit 10/26/2024 Blood pressure diastolic 88 mm Hg 04/12/2025 Height 65 in 04/12/2025 Blood pressure systolic 134 mm Hg 04/12/2025 Weight 174.0 lbs 04/12/2025 BMI 28.95 kg/m2 04/12/2025 Encounters Encounter Location Date Provider Diagnosis [address] [address] 08/25/2024 Phillip Carirllo [address] [address] 09/01/2024 Phillip Carrillo [address] [address] 09/11/2024 Phillip Carrillo [place] [address] [place] [address] 09/19/2024 Phillip Carrillo Diabetes mellitus E1 1.9 [place] [address] [place] [address] 10/26/2024 Phillip Carrillo [place] [address] [place] [address] 01/22/2025 Phillip Carrillo [address] [address] 02/14/2025 Phillip Carrillo Well adult Z00.00 an d Diabetes mellitus E11.9 [place] [address] [place] [address] 02/15/2025 Phillip Hoy [address] [address] 02/22/2025 [address] Hoy [address] [address] 07/10/2024 Phillip Hoy Shingles B02.9 and Otitis externa H60.[address] [address] 08/18/2024 Phillip Hoy Acute non-recurrent sinusitis, unspecified location J01.90 ; Nasal congestion R09.81 and Shingles B02.[address] [address] 08/21/2024 Phillip Hoy Diabetic foot ulcer 250.[address] [address] 08/31/2024 Phillip Hoy Diabetic foot ulcer 250.80 and Diabetic foot E11.[address] [address] 09/18/2024 Phillip Hoy Diabetes mellitus E1 1.[address] [address] 10/26/2024 Phillip Hoy Acute bronchitis, unspecified organism J20.[address] [address] 02/14/2025 Phillip Hoy Well adult Z00.[address] [address] 04/12/2025 Phillip Hoy Acute non-recurrent sinusitis, unspecified location J01.90 ; Nasal congestion R09.81 and Type 2 diabetes mellitus with foot ulcer E11.[address] [address] 06/19/2024 Phillip Hoy Acute non-recurrent sinusitis, unspecified location J01.90 and Nasal congestion R09.81 Assessments Encounter Date Diagnosis (ICD Code) Assessment Notes Treatment Notes Treatment Clinical Notes Section Notes 06/19/2024 Acute non-recurrent sinusitis, unspecified location (ICD-10 - J01.90) Rest and drink more liquids, especially water. You may use a humidifier or vaporizer to help keep the drainage moist. Uuix-dds-rkfwten Nasal Saline may help the stuffy and runny nose. Use Ibuprofen and or Tylenol as needed for fever, chills, body aches or pain. Children 5 years old should not be given ulwv-kgj-zhwnjxu cough and cold medications such as guaifenesin and dextromethorphan. If you're over age 5, you may try mhbz-ora-sczdnau cold medications such as guaifenesin and dextromethorphan, [...] vaporizer to help keep the drainage moist. Kbeq-zko-jjgqhxz Nasal Saline may help the stuffy and runny nose. Use Ibuprofen and or Tylenol as needed for fever, chills, body aches or pain. Children 5 years old should not be given satj-nza-nywhplg cough and cold medications such as guaifenesin and dextromethorphan. If you're over age 5, you may try eunh-nxj-bcpcpnj cold medications such as guaifenesin and dextromethorphan, [...] vaporizer to help keep the drainage moist. Cdec-tqf-peexhmz Nasal Saline may help the stuffy and runny nose. Use Ibuprofen and or Tylenol as needed for fever, chills, body aches or pain. Children 5 years old should not be given drpp-rim-zeqehcy cough and cold medications such as guaifenesin and dextromethorphan. If you're over age 5, you may try rpmw-bra-kqoeeno cold medications such as guaifenesin and dextromethorphan, [...] 911 02/14/2025 Well adult (ICD-10 - Z00.00) 04/12/2025 Acute non-recurrent sinusitis, unspecified location (ICD-10 - J01.90) Rest and drink more liquids, especially water. You may use a humidifier or vaporizer to help keep the drainage moist. Nbhq-qhi-bwajguu Nasal Saline may help the stuffy and runny nose. Use Ibuprofen and or Tylenol as needed for fever, chills, body aches or pain. Children 5 years old should not be given whja-cko-jktvyyv cough and cold medications such as guaifenesin and dextromethorphan. If you're over age 5, you may try xdmf-ydq-etagiho cold medications such as guaifenesin and dextromethorphan, [...] symptoms do not improve within 3-5 days 09/19/2024 Diabetes mellitus (ICD-10 - E11.9) 02/14/2025 Well adult (ICD-10 - Z00.00) 02/14/2025 Diabetes mellitus (ICD-10 - E11.9) 04/12/2025 Nasal congestion (ICD-10 - R09.81) 04/12/2025 Type 2 diabetes mellitus with foot ulcer (ICD-10 - E11.621) Bumping up to 60 U BID 08/18/2024 Shingles (ICD-10 - B02.9) 06/19/2024 Nasal [...] [employer] [place] MEDICA[employer] [address] [place] [address] [phone] [id number] Renu Nash Self - patient is the insured 4 Medical (General) History Medical History History ICD Code Diabetes mellitus E11.9 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
--- OUTSIDE RECORDS SUMMARY | 2025-05-12 13:46 | XMS_ITS | Encounter Summary ---
Author Organization [facility] tem Address [facility] [place] [id number] [address] [place] [address] Care Team Providers Care Woods Boss Name Role Phone Gentry Wolf MD Primary Care Provider + Reason for Visit * Reason Comments Med Refill Encounter Details Date Type Department Care Team (Late st Contact Info) Description 05/12/2022 Refill Maternal- Medicine at [facility] [address] [place] [id number] Eddie Rios MD Pre-existing type 2 diabetes mellitus during in [...] documented as of this encounter Care Teams Woods Boss Relationship Specialty Start Date End Date Gentry Wolf MD PCP - General Family Medicine 06/22/19 documented as of this encounter
--- OUTSIDE RECORDS SUMMARY | 2025-05-12 13:46 | XMS_ITS | Clinical Summary ---
Author Organization [facility] Address [facility] [address] [place] [address] Care Team Providers Care Radiologist Name Role Phone Gentry Wolf MD Primary Care Provider [phone] Allergies Active Allergy Reactions Criticality Noted Date Comments Penicillins Hives 05/26/2019 Medications labetalol (NORMODYNE) 200 mg tablet Take 300 mg by mouth 3 (three) times a day. Active aspirin 81 mg Take 81 mg by mouth daily. Active PNV 453-UXEZ-YCYFPC 1-DSS-DHA ORAL Take 1 tablet by mouth [...] strip 8 08/26/2020 Active pen needle, diabetic (Slated ULTRA-FINE SHORT PEN NEEDLE) 31 gauge x [...] Last Done Comments Diabetic Ophthalmology Exam 1978 Statin Use: Diabetic 1978 Depression Screening 1990 Tobacco Screening 1990 Adult BMI Screening 01/21/1996 Diabetic Foot Exam 01/21/1996 DTaP,Tdap and Td Vaccines (1 - Tdap) 1997 Pap Smear 1999 Influenza Vaccine 04/02/2025 Medical Devices Not on file Insurance MEDICAID Care Teams Radiologist Relationship Specialty Start Date End Date Gentry Wolf MD PCP - General Family Medicine 06/22/19
--- OUTSIDE RECORDS SUMMARY | 2025-05-12 13:46 | XMS_ITS | Clinical Summary ---
Author Organization [facility] Address [address] [place] [address] Care Team Providers Care Finisher Machine Name Role Phone Gentry Wolf MD Primary Care Provider [phone] Allergies Active Allergy Reactions Criticality Noted Date Comments Penicillins Rash,Hives,Unknown Low 05/26/2019 Other Reaction(s): Other Medications No known medications Family History Medical History Relation Name Comments [...] 01/14/2026 3:00 PM EDT Office Visit [facility] [address] [facility] [place] [address] Leland Claros DO [address] [place] [address] Insurance [facility] MEDICAID Care Teams Finisher Machine Relationship Specialty Start Date End Date Gentry Wolf MD [address] [facility] [place] [address] PCP - General Family Medicine 11/16/24
--- OUTSIDE RECORDS SUMMARY | 2025-05-12 13:46 | XMS_ITS | CCD ---
Author Organization [facility] Care Team Providers Care Gambling Box Person Name Role Phone DR GENTRY CARRILLO Consulting [...] Carrillo Primary Care Physician Abhishek Monterroso Consulting Unavaila Ellie Encarnacion Attending Unavailable Ellie OBANDO Admitting Unavailable Abhishek Monterroso Consulting UnavailAbhishek Alonso Consulting Unavaila Pako Briceño Attending Unavailable FELIPA ROGERS Attending Unavailable Gentry Carrillo MD Primary Care Provider [phone] AMY LOVE Attending Unavailable GENTRY CARRILLO Primary Care Unavailable GENTRY CARRILLO Primary Care Unavailable SANCHEZ MANCILLA Attending Unavailable GENTRY CARRILLO Primary Care Unavailable AMISHA NGUYEN Attending Unavailable Gentry Carrillo MD Primary Care Provider [phone] BASIA BRANDT Attending Unavailable Marlow DDS, Yixue Unavailable Unavailable Marlow DDS, Yixue Unavailable Unavailable Marlow DDS, Yixue Unavailable Unavailable Marlow DDS, Yixue Attending Unavailable Gentry Carrillo MD Primary Care Unavailable Marlow DDS, Yixue Unavailable Unavailable Allergies Allergy Classification Reported Allergen(s) Allergy Type Date of Onset Reaction(s) Facility (1 source) Penicillin Drug Allergy 0 [facility] Repository (11 sources) Penicillins; Translations: [penicillins] Drug allergy 9 Rash, Hives, Unknown [facility] Medications Current Medications Medication Drug Class(es) [...] Daily, # 30 tab(s), Refills(s) 1, [id number], 165, cm, 01/21/23 16:25:00 EDT, Height/Length Dosing, [...] Refills(s) 0 Start Date: 06/05/22 Status: Ordered fluconazole 150 mg oral tablet (2 sources) Azole Antifungal Start: 01-08-2025 End: 01-08-2025 take 1 tablet by mouth once, then take 1 tablet by mouth once fluconazole (Diflucan) 150 MG tablet Indications: Yeast infection Take 1 tablet (150 mg) by mouth 1 (one) time for 1 dose This is a 1 time dose, take single tablet by mouth. 1 tablet 1 01/08/2025 01/08/2025 Active fluticasone furoate 0.05 MG/ACTUAT Dry Powder Inhaler [...] attention, # 100 tab(s), Refills(s) 0, Pharmacy: [facility] #[id number], 165, cm, 01/21/23 16:25:00 EDT, Height/Length Dosing, 83, kg, 01/21/23... Start Date: 01/23/23 Status: Ordered terconazole 4 mg/ml vaginal cream (4 sources) Azole Antifungal Start: End: terconazole (Terazol 7) 0.4 % vaginal cream Indications: Yeast infection Insert 1 applicator into the vagina at bedtime for 7 days 45 g 01/08/2025 01/15/2025 Active ticagrelor 90 mg oral tablet (4 sources) Start: take 1 tablet by mouth twice daily Brilinta (ticagrelor) 90 mg oral tablet 90 mg = 1 tab(s), Oral, BID, # 60 tab(s), Refills(s) 1, Pharmacy: [facility] #[id number], 165, cm, 01/21/23 16:25:00 EDT, Height/Length Dosing, [...] ONCE, 1 dose, On Wed08/28/24 at 1515 1 ml ketorolac tromethamine 30 [...] Coronary atherosclerosis; Translations: [Atherosclerotic heart disease of [place] coronary artery without angina pectoris] Onset: 01-23-2023 [...] sexual mode of transmission] Onset: 04-15-2022 Episodic Inflammatory diseases of female pelvic organs (2 sources) Acute vaginitis; Translations: [Acute vaginitis] 01-08-2025 Episodic Mood disorders (1 source) Major depressive disorder, single episode, unspecified; Translations: [KATHIE DEPRESS D/O SINGLE EPIS UNS] Onset: 02-19-2022 Chronic Mycoses (2 sources) Mycosis; Translations: [Candidiasis, unspecified] 01-08-2025 Episodic Nonspecific chest pain (1 source) Chest pain; Translations: [Chest pain, unspecified] Onset: 01-21-2023 Episodic Other aftercare (1 source) Long-term current use of drug therapy; Translations: [Other mcc (current) drug therapy] Onset: 01-21-2023 Episodic Other [...] conditions (not mental disorders or infectious disease) (13 sources) Encounter for screening for malignant neoplasm of cervix; Translations: [Encounter for screening for dental disorders] Onset: 06-15-2022 Episodic Unclassified (4 sources) CONTACT [...] 02-19-2022 Episodic Other aftercare (1 source) Other mcc (current) drug therapy; Translations: [OTH MCC CURRENT DRUG THERAPY] Onset: 02-19-2022 Episodic Other aftercare (1 source) FDC (current) use of oral hypoglycemic drugs; Translations: [MCC USE ORAL HYPOGLYCEMIC DX] Onset: 02-19-2022 Episodic Other aftercare (1 source) FDC (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; Translations: [MCC CURRENT USE OF ASPIRIN] Onset: 12-09-2021 Episodic Other aftercare (1 source) 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 [facility] Comment on above: TESTS RESULT FLAG UN ITS REF RANGE LAB Clinician Provided Cytology Information Source.............Cervix;Endocervix No. of containers..01 ThinPrep Vial Age Algo ACOG Lory... 30-65 01 FLAG LEGEND: L-Low Normal,H-High Normal,LL-Alert Low,HH-Alert High <-Panic Low,>-Panic High,A-Abnormal,AA-Critical Abnormal Performed at: 01 =[address] [address] Lucy Carbajal MD, HPV APTIMA Negative Negative [facility] Comment on above: This nucleic acid am plification test detects fourteen high- risk HPV types (16,18,31,33,35,39,45,51,52,56,58,59,66,68) without differentiation. Performed at: =[address] [id number] Job Compositor: Lucy Carbajal MD, Phone: [phone] Performed at: [address] [id number] Job Compositor: Lucy Carbajal MD, Phone: [phone] IGP, APTIMA HPV, RFX 16/18,45 Note . [facility] Comment on above: TESTS RESULT FLAG UN ITS REF RANGE LAB DIAGNOSIS: 02 NEGATIVE FOR INTRAEPITHELIAL LESION OR MALIGNANCY. Specimen adequacy: 02 Satisfactory for evaluation. Endocervical and/or squamous metaplastic cells (endocervical component) are present. Performed by: 02 Genoveva Rhodes, Computer Consultant (ASCP) . 02 Note: Note 02 The Pap [...] <-Panic Low,>-Panic High,A-Abnormal,AA-Critical Abnormal Performed at: [address] [address] Lucy Carbajal MD, BRUSH-SPATULA CERVIX ENDOCERVIX [facility] RECURRENT VAGINITIS (HTRX)on 01-11-2025 ATOPOBIUM VAGINAE 15.51 Abnormal [facility] Healthcare ATOPOBIUM VAGINAE Detected Abnormal [facility] BVAB 2,3 (BACTERIAL VAGINOSIS ASSOCIATED BACTERIA 2, 3); MOBILUNCUS SPP 0 [facility] BVAB 2,3 (BACTERIAL VAGINOSIS ASSOCIATED BACTERIA 2, 3); MOBILUNCUS SPP Not detected [facility] HEATHER ALBICANS, PARAPSILOSIS, TROPICALIS 0 [facility] HEATHER ALBICANS, PARAPSILOSIS, TROPICALIS Not detected [facility] HEATHER GLABRATA 0 [facility] HEATHER GLABRATA Not detected [facility] HEATHER KRUSEI 0 [facility] HEATHER KRUSEI Not detected [facility] CHLAMYDIA TRACHOMATIS 0 [facility] CHLAMYDIA TRACHOMATIS Not detected [facility] ERMB, C; MEFA 15.815 Abnormal [facility] ERMB, C; MEFA Detected Abnormal [facility] GARDNERELLA VAGINALIS 17.198 Abnormal [facility] GARDNERELLA VAGINALIS Detected Abnormal [facility] Interpretation and review of laboratory results Abnormal [facility] MEGASPHAERA (TYPES 1, 2) 20.579 Abnormal [facility] MEGASPHAERA (TYPES 1, 2) Detected Abnormal [facility] MYCOPLASMA GENITALIUM 0 [facility] MYCOPLASMA GENITALIUM Not detected [facility] NEISSERIA GONORRHOEAE 0 [facility] NEISSERIA GONORRHOEAE Not detected [facility] TET B, TET M 12.593 Abnormal [facility] Healthcare TET B, TET M Detected Abnormal [facility] TRICHOMONAS VAGINALIS 0 [facility] TRICHOMONAS VAGINALIS Not detected N [facility] COVID-19, Rapidon 10-04-2024 SARS-CoV-2 (COVID-19) RdRp gene TIM+probe Ql (Resp) Not detected Not Detected [facility] Comment on above: Rapid NAAT: [...] Nucleic Acid Amplification Specimen Description .NASOPHARYNGEAL SWAB [facility] Flu A/B Ag Detectionon 10-04 Flu A Ag Detection Negative Normal [facility] Comment on above: Result Comment: for Influenza A Antigen Performed By: #### F LUABA #### [facility] [address] [place] [address] Job Compositor: Matthew Driscoll MD Flu B Ag Detection Negative Normal NEG [facility] Comment on above: Result Comment: for Influenza B Antigen. Performed By: #### F LUABA #### [facility] [address] [place] [address] Job Compositor: Matthew Driscoll MD Rapid influenza A/B antigens on 10-04-2024 FLUAV Ag Ql (Unsp spec) Negative NEGATIVE [facility] Comment on above: for Influenza A Anti gen FLUBV Ag Ql (Unsp spec) Negative NEGATIVE [facility] Comment on above: for Influenza B Anti gen. [facility] [id number] 10-04-2024 SARS-CoV-2 (COVID-19) RNA TIM+probe Ql (Unsp spec) Not detected Normal [facility] Comment on above: Result Comment: Rapid [...] Amplification Performed By: #### C OVRB #### [facility] [address] [place] [address] Job Compositor: Matthew Driscoll MD CBC with Auto Differentialon 08-28-2024 Basophils (Bld) [#/Vol] 0.02 10*3/uL [facility] Basophils/100 WBC (Bld) 0 % 0 - 2 % [facility] Eosinophils (Bld) [#/Vol] 0.09 10*3/uL [facility] Eosinophils/100 WBC (Bld) 1 % 0 - 5 % [facility] Erythrocyte distribution width (RBC) [Ratio] 13.0 % 12.1 - 15.2 % [facility] Hematocrit (Bld) [Volume fraction] 41.7 % 36.0 - 46.0 % [facility] Hemoglobin (Bld) [Mass/Vol] 15.0 g/dL 12.0 - 16.0 g/dL [facility] Immature granulocytes (Bld) [#/Vol] 0.02 10*3/uL [facility] Immature granulocytes/100 WBC (Bld) 0 % 0 - 5 % [facility] Interpretation and review of laboratory results Abnormal [facility] Lymphocytes/100 WBC (Bld) 33 % 15 - 40 % [facility] Lymphocytes/100 WBC (Bld) 3.26 % [facility] MCH (RBC) [Entitic mass] 28.5 pg 26.0 - 34.0 pg [facility] MCHC (RBC) [Mass/Vol] 36.0 g/dL 31.0 - 37.0 g/dL [facility] MCV (RBC) [Entitic vol] 79.3 fL Low 80.0 - 100.0 fL [facility] Monocytes/100 WBC (Bld) 6 % 4 - 8 % [facility] Monocytes/100 WBC (Bld) 0.55 % [facility] Neutrophils/100 WBC (Bld) 60 % 47 - 75 % [facility] Platelet mean volume (Bld) [Entitic vol] 9.9 fL 6.0 - 12.0 fL [facility] Platelets (Bld) [#/Vol] 277 10*3/uL [facility] RBC (Bld) [#/Vol] 5.26 10*6/uL High 4.00 - 5.2 0 m/uL [facility] Segmented neutrophils/100 WBC (Bld) 6.04 % [facility] WBC other (Bld) [#/Vol] 10.0 [facility] CBC with Diffon 08-28-2024 Abs. Basophil 0.02 k/uL Normal 0.00-0.20 [facility] Comment on above: Performed By: #### C P, CDP #### [facility] [address] [place] [address] Job Compositor: Matthew Driscoll MD Abs.Imm.Granulocyte 0.02 k/uL Normal 0.00-0.30 [facility] Comment on above: Performed By: #### C P, CDP #### [facility] [address] [place] [address] Job Compositor: Matthew Driscoll MD Abs.Neutrophil (Seg) 6.04 k/uL Normal 2.5-7.0 [facility] Comment on above: Performed By: #### C P, CDP #### [facility] [address] [place] [address] Job Compositor: Matthew Driscoll MD Basophils/100 WBC (Bld) 0 % Normal 0-2 [facility] Comment on above: Performed By: #### C P, CDP #### [facility] [address] [place] [address] Job Compositor: Matthew Driscoll MD Eosinophils (Bld) [#/Vol] 0.09 10*3/uL Normal 0.00-0.40 [facility] Comment on above: Performed By: #### C P, CDP #### [facility] [address] [id number] Job Compositor: Matthew Driscoll MD Eosinophils/100 WBC (Bld) 1 % Normal 0-5 [facility] Comment on above: Performed By: #### C P, CDP #### [facility] [address] [place] [address] Job Compositor: Matthew Driscoll MD Erythrocyte distribution width (RBC) [Ratio] 13.0 % Normal 12.1-15.2 [facility] Comment on above: Performed By: #### C P, CDP #### [facility] [address] [id number] Job Compositor: Matthew Driscoll MD Hematocrit (Bld) [Volume fraction] 41.7 % Normal 36.0-46.0 [facility] Comment on above: Performed By: #### C P, CDP #### [facility] [address] [place] [address] Job Compositor: Matthew Driscoll MD Hemoglobin (Bld) [Mass/Vol] 15.0 g/dL Normal 12.0-16.0 [facility] Comment on above: Performed By: #### C P, CDP #### [facility] [address] [place], [place] [phone] Job Compositor: Matthew Driscoll MD Immature granulocytes/100 WBC (Bld) 0 % Normal 0-5 [facility] Comment on above: Performed By: #### C P, CDP #### [facility] [address] [place] [address] Job Compositor: Matthew Driscoll MD Lymphocytes (Bld) [#/Vol] 3.26 10*3/uL Normal 1.00-4.80 [facility] Comment on above: Performed By: #### C P, CDP #### [facility] [address] [place] [address] Job Compositor: Matthew Driscoll MD Lymphocytes/100 WBC (Bld) 33 % Normal 15-40 [facility] Comment on above: Performed By: #### C P, CDP #### [facility] [address] [place] [address] Job Compositor: Matthew Driscoll MD MCH (RBC) [Entitic mass] 28.5 pg Normal 26.0-34.0 [facility] Comment on above: Performed By: #### C P, CDP #### [facility] [address] [place] [address] Job Compositor: Matthew Driscoll MD MCHC (RBC) [Mass/Vol] 36.0 g/dL Normal 31.0-37.0 [facility] Comment on above: Performed By: #### C P, CDP #### [facility] [address] [place] [address] Job Compositor: Matthew Driscoll MD MCV (RBC) [Entitic vol] 79.3 fL Low 80.0-100.0 [facility] Comment on above: Performed By: #### C P, CDP #### [facility] [address] [phone] [phone] Job Compositor: Matthew Driscoll MD Monocytes (Bld) [#/Vol] 0.55 10*3/uL Normal 0.00-1.00 [facility] Comment on above: Performed By: #### C P, CDP #### [facility] [address] [place], [place] [phone] Job Compositor: Matthew Driscoll MD Monocytes/100 WBC (Bld) 6 % Normal 4-8 [facility] Comment on above: Performed By: #### C P, CDP #### [facility] [address] [place] [address] [phone] Job Compositor: Matthew Driscoll MD Neutrophil (Seg) 60 % Normal 47-75 [facility] Comment on above: Performed By: #### C P, CDP #### [facility] [address] [place] [address] Job Compositor: Matthew Driscoll MD Platelet mean volume (Bld) [Entitic vol] 9.9 fL Normal 6.0-12.0 [facility] Comment on above: Performed By: #### C P, CDP #### [facility] [address] [place], [place] [id number] ([phone] Job Compositor: Matthew Driscoll MD Platelets (Bld) [#/Vol] 277 10*3/uL Normal 140-450 [facility] Comment on above: Performed By: #### C P, CDP #### [facility] [address] [place] [address] Job Compositor: Matthew Driscoll MD RBC (Bld) [#/Vol] 5.26 10*6/uL High 4.00-5.20 [facility] Comment on above: Performed By: #### C P, CDP #### [facility] [address] [place], [place] [phone] Job Compositor: Matthew Driscoll MD WBC (Bld) [#/Vol] 10.0 10*3/uL Normal 3.5-11.0 [facility] Comment on above: Performed By: #### C P, CDP #### [facility] [address] [place] [address] Job Compositor: Matthew Driscoll MD Comp Metabolic Profon 2024 Albumin [Mass/Vol] 3.8 g/dL Normal 3.5-5.2 [facility] Comment on above: Performed By: #### C P, CDP #### [facility] [address] [id number] Job Compositor: Matthew Driscoll MD ALT [Catalytic activity/Vol] 17 U/L Normal 5-33 [facility] Comment on above: Performed By: #### C P, CDP #### [facility] [address] [place] [address] Job Compositor: Matthew Driscoll MD Anion gap [Moles/Vol] 16 mmol/L Normal 9-17 [facility] Comment on above: Performed By: #### C P, CDP #### [facility] [address] [place] [address] Job Compositor: Matthew Driscoll MD AST [Catalytic activity/Vol] 12 U/L Normal <32 [facility] Comment on above: Performed By: #### C P, CDP #### [facility] [address] [place] [address] Job Compositor: Matthew Driscoll MD Bilirubin [Mass/Vol] 0.6 mg/dL Normal 0.3-1.2 [facility] Comment on above: Performed By: #### C P, CDP #### [facility] [address] [place] [address] Job Compositor: Matthew Driscoll MD Calcium [Mass/Vol] 9.8 mg/dL Normal 8.6-10.4 [facility] Comment on above: Performed By: #### C P, CDP #### [facility] [address] [place], [place] [id number] Job Compositor: Matthew Driscoll MD Chloride [Moles/Vol] 87 mmol/L Low 98-107 [facility] Comment on above: Performed By: #### C P, CDP #### [facility] [address] [id number] Job Compositor: Matthew Driscoll MD CO2 [Moles/Vol] 22 mmol/L Normal 20-31 [facility] Comment on above: Performed By: #### C P, CDP #### [facility] [address] [place] [address] Job Compositor: Matthew Driscoll MD Creatinine [Mass/Vol] 0.6 mg/dL Normal 0.5-0.9 [facility] Comment on above: Performed By: #### C P, CDP #### [facility] [address] [place] [address] Job Compositor: Matthew Driscoll MD Glucose [Mass/Vol] 579 mg/dL Critically high 70-[address] [facility] Comment on above: Performed By: #### C P, CDP #### [facility] [address] [place] [address] Job Compositor: Matthew Driscoll MD Potassium [Moles/Vol] 4.4 mmol/L Normal 3.7-5.3 [facility] Comment on above: Performed By: #### C P, CDP #### [facility] [address] [place] [address] Job Compositor: Matthew Driscoll MD Protein [Mass/Vol] 7.5 g/dL Normal 6.4-8.3 [facility] Comment on above: Performed By: #### C P, CDP #### [facility] [address] [place], [place] [phone] Job Compositor: Matthew Driscoll MD Sodium [Moles/Vol] 125 mmol/L Low 135-144 [facility] Comment on above: Performed By: #### C P, CDP #### [facility] [address] [place], [place] [id number] Job Compositor: Matthew Driscoll MD Urea nitrogen [Mass/Vol] 21 mg/dL High 6-20 [facility] Comment on above: Performed By: #### C P, CDP #### [facility] [address] [place] [address] Job Compositor: Matthew Driscoll MD Alkaline Phos 173 U/L High 35-104 [facility] Comment on above: Performed By: #### C P, CDP #### [facility] [address] [place], [place] [id number] Job Compositor: Matthew Driscoll MD BUN/CRE Ratio 35 High 9-20 [facility] Comment on above: Performed By: #### C P, CDP #### [facility] [address] [place], [place] [phone] Job Compositor: Matthew Driscoll MD GFR/1.73 sq M.predicted among non-blacks MDRD (S/P/Bld) [Vol rate/Area] mL/min/{1.73_m2} Normal >60 [facility] Comment on above: Result Comment: These [...] Performed By: #### C P, CDP #### [facility] [address] [place], [place] [id number] Job Compositor: Matthew Driscoll MD Comprehensive Metabolic Pane katelynn 08-28-2024 ALP [Catalytic activity/Vol] 173 U/L High 35 - 104 U/L [facility] Tana Leonard Ellie - HELEN [facility] Comment on above: These results are [...] Interpretation and review of laboratory results Abnormal [facility] Urea nitrogen/Creatinine [Mass ratio] 35 mg/mg High 9 - 20 [facility] Glucose, Whole Bloodon 08-28 Glucose [Mass/Vol] 316 mg/dL High 65 - 99 mg/dL [facility] Interpretation and review of laboratory results Abnormal [facility] Glucose [Mass/Vol] 565 mg/dL Critically high 65 - 99 mg/d L [facility] Interpretation and review of laboratory results Abnormal [facility] Glucose,Whole Bloodon 2024 Glucose [Mass/Vol] 316 mg/dL High 65-99 [facility] Glucose [Mass/Vol] 565 mg/dL Critically high 65-99 [facility] POCT glucoseon 08-28-2024 Glucose [Mass/Vol] 316 mg/dL [facility] Interpretation and review of laboratory results Normal [facility] QC OK? yes [facility] POCT glucoseOrdered By: Shazia Trujillo on 08-28-2024 Glucose [Mass/Vol] 565 mg/dL [facility] Interpretation and review of laboratory results Normal [facility] QC OK? yes [facility] Venous Bld Gas,POCon 08-28- 025 FIO2 21.0 Normal [facility] HCO3 (Bld) [Moles/Vol] 23.5 mmol/L Normal 22.0-29.0 [facility] Oxygen saturation in Blood 95.0 % High 60.0-85.0 [facility] pCO2, Venous 33.2 mm Hg Low 41.0-51.0 [facility] pH,Venous 7.457 High 7.320-7.430 [facility] pO2, Venous 70.8 mm Hg High 30.0-50.0 [facility] Positive Base Excess (calc) 0.4 mmol/L Normal 0.0-3.0 [facility] Venous Blood Gas, POCon 08-03 FIO2 21.0 [facility] HCO3 (Bld) [Moles/Vol] 23.5 mmol/L 22.0 - 29.0 mmol/L [facility] Interpretation and review of laboratory results Abnormal [facility] Oxygen saturation in Blood 95.0 % High 60.0 - 85.0 % [facility] pCO2, Adria 33.2 Low [facility] pH, Adria 7.457 High 7.320 - 7.430 [facility] PO2, Adria 70.8 High [facility] Positive Base Excess, Adria 0.4 mmol/L 0.0 - 3.0 mmol/L [facility] Office Visiton 02-05-2023 Follow-up visit [id number] Escobar Ortega 1980 F Date Provider Department Center 02/05/2023 Theron8-FELIPA ROGERS [facility] Family History Problem Relation Age of Onset Diabetes Father Coronary artery disease Father Kidney disease Father Family Status - Relation Status Age at Father Level of Service:04848 ME OFFICE/OUTPATIENT NEW [facility] 30-44 MINUTES Normal [facility] Cardiovascular Reporton 01-01 Cardiovascular Report [id number] 30#1.00CD:127 Normal [facility] Consent for PICC lineon 01-01 Consent for PICC line [id number] 13#1.00CD:127 Normal [facility] Discharge Instructionson Discharge Instructions [id number] #1.00CD:127 Normal [facility] Pre-Certification Formon Pre-Certification Form [id number] 2#1.00CD:127 Normal [facility] BMPon 01-23-2023 Anion gap [Moles/Vol] 12 mmol/L Normal 6-16 [facility] Comment on above: Performed By: #### 2 [id number], [id number], [id number], [id number], [id number], [id number] #### [facility] [address] [place] [address] Calcium [Mass/Vol] 8.2 mg/dL Low 8.9-11.1 [facility] Comment on above: Performed By: #### 2 [id number], [id number], [id number], [id number], [id number], [id number] #### [facility] [address] [place] [address] Chloride [Moles/Vol] 108 mmol/L Normal 101-111 [facility] Comment on above: Performed By: #### 2 [id number], [id number], [id number], [id number], [id number], [id number] #### [facility] [address] [place] [address] CO2 [Moles/Vol] 19 mmol/L Low 21-31 [facility] Comment on above: Performed By: #### 2 630296, 7342181, 69247034, 990639587, 1701616, 5884055 #### [facility] [address] [place] [address] Creatinine [Mass/Vol] 0.5 mg/dL Normal 0.5-1.3 [facility] Comment on above: Performed By: #### 2 841320, 3064268, 66125391, 876079944, 3668589, 1798197 #### [facility] [address] [place] [address] Glucose [Mass/Vol] 183 mg/dL Normal 55-199 [facility] Comment on above: Result Comment: If t his glucose result represents a fasting glucose, interpretation should refer to the following reference range: 55-99 mg/dL Performed By: #### 2 309350, 0084227, 59421552, 453802380, 1956892, 3264348 #### [facility] [address] [place] [address] Potassium [Moles/Vol] 3.8 mmol/L Normal 3.5-5.3 [facility] Comment on above: Performed By: #### 2 683898, 3642562, 78505267, 782862609, 7784533, 9053368 #### [facility] [address] [place] [address] Sodium [Moles/Vol] 135 mmol/L Normal 135-145 [facility] Comment on above: Performed By: #### 2 985619, 9377493, 95247523, 260229266, 1338525, 4644808 #### [facility] [address] [place] [address] Urea nitrogen [Mass/Vol] 11 mg/dL Normal 5-21 [facility] Comment on above: Performed By: #### 2 072117, 6397099, 44217494, 141078970, 7419864, 3161743 #### [facility] [address] [place] [address] Urea nitrogen/Creatinine [Mass ratio] 22 No Units High 10-20 [facility] Comment on above: Performed By: #### 2 086343, 8670566, 70352021, 624339147, 3252699, 3517310 #### [facility] [address] [place] [address] CBC w/Indiceson 01-23-2023 Erythrocyte distribution width (RBC) [Ratio] 14.2 % Normal 10.9-14.2 [facility] Comment on above: Performed By: #### 2 044190, 2575796, 13449754, 050165513, 7614382, 8233384 #### [facility] [address] [place] [address] Hematocrit (Bld) [Volume fraction] 38.3 % Normal 34.0-46.0 [facility] Comment on above: Performed By: #### 2 818607, 6142186, 67362331, 793634525, 9340311, 0410891 #### [facility] [address] [place] [address] Hemoglobin (Bld) [Mass/Vol] 13.3 g/dL Normal 12.0-16.0 [facility] Comment on above: Performed By: #### 2 344860, 9007721, 86395893, 039467841, 3425919, 8427126 #### [facility] [address] [place] [address] MCH (RBC) [Entitic mass] 28.9 pg Normal 27.0-34.0 [facility] Comment on above: Performed By: #### 2 440158, 9773362, 96159710, 898527583, 1248923, 1649095 #### [facility] [address] [place] [address] MCHC (RBC) [Mass/Vol] 34.8 g/dL Normal 31.4-36.0 [facility] Comment on above: Performed By: #### 2 926222, 2002301, 16713515, 238123165, 3101695, 9704507 #### [facility] [address] [place] [address] MCV (RBC) [Entitic vol] 83.1 fL Normal 80.0-100.0 [facility] Comment on above: Performed By: #### 2 161577, 2993664, 17466532, 958221411, 5044447, 9688187 #### [facility] [address] [place] [address] Platelet mean volume (Bld) [Entitic vol] 8.6 fL Normal 6.4-10.8 [facility] Comment on above: Performed By: #### 2 908453, 0306030, 18092296, 559578825, 7037202, 2871888 #### [facility] [address] [place] [address] Platelets (Bld) [#/Vol] 237.0 E9/L Normal 150.0-500.0 [facility] Comment on above: Performed By: #### 2 634351, 0425868, 36996054, 467958866, 5592497, 6237054 #### [facility] [address] [place] [address] RBC (Bld) [#/Vol] 4.6 E12/L Normal 4.3-5.9 [facility] Comment on above: Performed By: #### 2 947493, 5293669, 67677350, 070846380, 8313266, 5490511 #### [facility] [address] [place] [address] WBC corrected for nucl RBC Auto (Bld) [#/Vol] 9.5 E9/L Normal 4.0-11.0 [facility] Comment on above: Performed By: #### 2 458340, 4923762, 72444140, 711475153, 8933274, 9866553 #### [facility] [address] [place] [address] CHEMISTRYOrdered By: Lab ROP User on 01-23-2023 Glucose [Mass/Vol] 255 mg/dL High 55 - 99 mg/dL [facility] C POC Subsection Comment on above: Result Comment: Marino paulson RN/ POC Device SN [id number] Invalid Interpretation Code [facility] POC Subsection POC User ID [id number] Invalid Interpretation Code [facility] POC Subsection POC Username LESLY PARR Invalid Interpretation Code [facility] POC Subsection Glucose [Mass/Vol] 192 mg/dL High 55 - 99 mg/dL [facility] C POC Subsection Comment on above: Result Comment: Yari jennifer Meter POC Device SN [id number] Invalid Interpretation Code [facility] POC Subsection POC User ID [id number] Invalid Interpretation Code [facility] POC Subsection POC Username AIDEE DE LEÓN Invalid Interpretation Code [facility] POC Subsection CHEMISTRYOrdered By: SYSTEM SYSTEM on [...] mL/min/1.73 m2 Normal >=59mL/min/1. 73 m2 [facility] Chem S Glucose [Mass/Vol] 183 mg/dL Normal 55 - 199 mg/dL [facility] Magnesium [Mass/Vol] 1.5 mg/dL Normal 1.3 - 2 .4 mg/dL [facility] Potassium [Moles/Vol] 3.8 mmol/L Normal 3.5 - 5.3 mmol/L [facility] Sodium [Moles/Vol] 135 mmol/L Normal 135 - 145 mmol/L [facility] Troponin I.cardiac [Mass/Vol] 1304.50 pg/mL Invalid Interpretation Code 10.10 - 27.10 pg/mL [facility] Comment on above: Result Comment: Crit ical Result verified by previous result\ Critical Result [id number] Called to MICHELE HERRMANN at 3S by HARDEEP HANSEN and read back for confirmation at 01/23/2023 07:42:43 Urea nitrogen [Mass/Vol] 11 mg/dL Normal 5 - 21 mg/dL [facility] Urea nitrogen/Creatinine [Mass ratio] 22 mg/mg High 10 - 20 [facility] Capillary Glucose POCon 01-01 Glucose [Mass/Vol] 255 mg/dL High 55-99 [facility] Comment on above: Result Comment: Marino paulson RN/ Performed By: #### 2 966761, 3273771, 44335128, 892502195, 4451042, 3601925 #### [facility] [address] [place] [address] Glucose [Mass/Vol] 192 mg/dL High 55-99 [facility] Comment on above: Result Comment: Yari rodriguez Meter Performed By: #### 2 [id number] ####[facility] [address] [place] [address] Consultation Noteon 01-24-20 Consultation Note Chief Complaint [...] deep vein thrombosis (DVT) prophylaxis (Z79.899: Other gm (current) drug therapy) Orders: ticagrelor, 180 mg [...] tab(s), Or (more content not included)... Normal [facility] Comment on above: Result Comment: Elec tronically Signed By: Kriss HAIDER, Abhishek Hagan\.br\Date and Time Signed: 01/22/23 22:12 EDT Discharge Note-Nursingon Discharge Note-Nursing Patient prescribed Brillinta for discharge. Her preferred pharmacy is [facility] which does not have Brillinta in stock until Wednesday. This RN asked patient to switch pharmacy for this medication so she could rock picker today. Patient refuses to switch pharmacies. She states her sister will not take her to any other pharmacy to pick this up. Per Dr. Lawrence, ok to pull 4 Brillinta to send home with patient to have enough until she can rock picker the medication from her pharmacy. Normal [facility] HEMATOLOGYOrdered By: Cristin Ibarra on 01-23-2023 [...] Inpatient Clinical Summaryon 01-23-2023 Inpatient Clinical Summary [address] [address] Clinical Summary Person Information: Name: ESCOBAR ORTEGA Age: 43 Years : 1980 Sex: Female PCP: Gentry Carrillo MD Marital Status: Phone: [phone] Race: White Ethnicity: Non- or Language: [place] Visit Id: Visit Reason: Chest pain; CHEST PAIN Speciality: Acuity: Enc Type: Observation Med Service: Medical Arrival: 01/21/2023 16:19:22 Discharge: Dispo Type: Admitted as IP to this Hosp Address: [phone] Provider Notes: Diagnosis: 1:NSTEMI (non-ST elevation myocardial [...] OBANDO MD Consulting Physician: Vladimir Holcomb MD; Kriss HAIDER, Abhishek Hagan Referring Physician: Follow up: With: Address: When: Abhishek Monterroso [address] [place] [address] Business (1) Within 2 weeks Comments: Call for followup appointment With: Address: When: Gentry Carrillo [address] [place] [address] [place] [address] Business (1) 01/27/2023 9:30 AM Patient Education Information: CV - Cardiovascular PCI Discharge Instructions (CUSTOM) [facility] Inpatient Patient Summaryon 01-23-2023 Inpatient Patient Summary ESCOBAR ORTEGA :1980 Visit Date:01/21/2023 Inpatient Discharge Instructions Your Care Team Admitting Physician - Ellie OBANDO MD Consulting Physician - Abhishek Monterroso MD, MD, Vladimir Sparks Reason for Your Visit [...] Test Results None [facility]acy Information Other: [facility] New Follow Up Appointments after Discharge Follow Up with Gentry Carrillo When: 01/27/2023 09:30 AM EDT Where: [address] [place] [address]- Business (1) Follow Up with Abhishek Monterroso When: Within 2 weeks Comments: Call for followup appointment Where: [address] [place] [phone]- Business (1) Medications What How Much When Why Instructions Next Dose New aspirin (aspirin 81 mg Oral EC Tab) 1 Tablets By Mouth Every day Refills: 1 Pickup at [facility] #[id number] 01/24 New atorvastatin (Lipitor 80 mg Tab) 1 Tablets By Mouth Every day Refills: 1 Pickup at [facility] #[id number] 01/24 New metoprolol (Metoprolol tartrate 25 mg Tab) 1 Tablets By Mouth 2 times a day Refills: 1 Pickup at [facility] #[id number] 01/23 9:00pm New nitroglycerin (nitroglycerin 0.4 mg sublingual Tab) 1 Tablets Sublingual Every 5 minutes as needed for Chest pain not to exceed 3 doses/ 15 min--if pain persists, seek medical attention Pickup at [facility] #[id number] New ticagrelor (Brilinta (ticagrelor) 90 mg oral tablet) 1 Tablets By Mouth 2 times a day Chest pain Elevated troponin NSTEMI (non-ST elevation myocardial infarction) Hypertensive urgency Right shoulder pain Refills: 1 Pickup at [facility] #[id number] 01/23 9:00pm Changed insulin glargine (Lantus insulin) [...] times a day 01/23 9:00pm Pharmacy Information [facility] #[id number]: [address], [place] [id number] [phone] What How Much When Comments Stop Taking naproxen (naproxen sodium 550 mg Tab) 1 Tablets By Mouth 2 times a day Test Results CBC BMP WBC: 9.5 E9/L (01/23/23 06:23:00) Glucose Lvl: 183 mg/dL (01/23/23 06:23:00) RBC: 4.6 E12/L (01/23/23 06:23:00) BUN: 11 mg/dL (01/23/23 06:23:00) HGB: 13.3 gm/dL (06/24/23 06:23:00) Creatinine: 0.5 mg/ (more content not included)... Normal [facility] Inpatient Patient Summary [address] [address] Patient Discharge Instructions PERSON INFORMATION [...] Follow up: With: Address: When: Abhishek Monterroso [address] [place] [address] Business (1) Within 2 weeks Comments: Call for followup appointment With: Address: When: Gentry Carrillo [address] [place] [address] [place] [address] Business (1) 01/27/2023 9:30 AM In the [...] day. Comment: MEDICATIO (more content not included)... [facility] Interdisciplinary Note - Lemuel e Manageron 01-23-2023 Interdisciplinary Note - Shearer Screen Measurer And Trimmer Pt is awake and alert in bed, [...] boyfriend and her sister [place] transport at [place]. . PCP verified and insurance information reviewed and DME discussed. Contact information provided and white board updated. [facility] Comment on above: Result Comment: Elec tronically Signed By: Todd CASEY, Jeanie\.brenna\Date and Time Signed: 01/23/23 12:44 EDT Interdisciplinary Note - Navarro rice 01-23-2023 Interdisciplinary Note - Nursing Patient prescribed Brillinta for discharge. [facility], will not have any of this medication until Wednesday. Patient refuses to switch pharmacies at this time to rock picker enough to last her through the weekend. She states her sister will not take her to any other pharmacy. Per Dr. Lawrence, ok to pull 4 doses of Brillinta 90mg from RX station to send home with patient until she can rock picker medication on Wednesday. Education provided to patient on importance of taking Brillinta exactly how it is prescribed. Informed patient that if she cannot get the rest of her Brillinta on Wednesday for any reason to contact the library page or hospital accounts supervisor per Dr. Lawrence. Normal [facility] Magnesiumon 01-23-2023 Magnesium [Mass/Vol] 1.5 mg/dL Normal 1.3-2.4 [facility] Comment on above: Performed By: #### 2 964168, 3477942, 77111696, 529486238, 1626196, 6408986 #### [facility] [address] [place] [address] Monitor Recordon 01-23-2023 Monitor Record [id number] 0#1.00CD:127 Normal [facility] Monitor Record [id number] 2#1.00CD:127 Normal [facility] Monitor Record [id number] 5#1.00CD:127 Normal [facility] Monitor Record [id number] 7#1.00CD:127 Normal [facility] Operative Reporton 3 Operative Report Indication [...] patient will additionally be counseled by the [facility] [employer] team and in follow-up. Complications None Technique Following full and informed consent the patient was brought to the [facility] [employer] [facility] where sterile prep and drape were administered in usual fashion. Anesthesia was obtained in the right wrist with lidocaine after administration of conscious sedation. A 5/6 slender Terumo sheath was placed in the right radial artery without complication. Nitroglycerin and nicardipine were given via the sheath and heparin was given intravenously. A 5 Qatari JACKE catheter was advanced and selectively engaged in the left main coronary artery and right coronary artery each, where selective injections were performed. A pigtail catheter was placed in the left ventricle where hemodynamic measurements the left ventricle were made and a bolus was given for left ventriculography. A pullback gradient was obtained. A 6 Qatari jl3.5 catheter was advanced and selectively engaged [...] end of the procedure without complication. Normal [facility] Comment on above: Result Comment: Elec tronically Signed By: Kriss HAIDERAbhishek\.br\Date and Time Signed: 01/22/23 22:16 EDT Progress Note-Physicianon Progress Note-Physician Patient with recent non-STEMI and stent placement who is on Brilinta. Prescription sent to her pharmacy and they will not have it available till Wednesday. Patient is not willing to change her pharmacy to fill it somewhere else. She is medically stable for discharge and library page cleared her. We will give for Brilinta from here in order to get her through the weekend and prevent in-stent rethrombosis and potential complication. Nurse will give for medications which will cover patient until Wednesday morning and if any issue patient is to call accounts supervisor or library page to get it filled somewhere else. [facility] Comment on above: Result Comment: Elec [...] Lipitor, lisinopril, Lopressor. Treated with Lovenox. [facility] Moderate 35 Minutes 33227 2. Coronary artery disease (I25.10: Atherosclerotic heart disease of [place] coronary artery without angina pectoris) As seen on cardiac catheterization. Patient has coronary artery disease with mid left circumflex artery occlusion requiring 1 drug-eluting stent placement on 01/22/2023. Continue on aspirin, Brilinta, Lipitor, lisinopril and Lopressor. Ordered: [facility]/Day Moderate 35 Minutes 57270 3. Chest pain (R07.9: Chest pain, unspecified) Secondary to above. Resolved. Ordered: [facility]/Day Moderate 35 Minutes 35753 4. Elevated troponin (R77.8: Other specified abnormalities of plasma proteins) Secondary to above. Resolved. Ordered: [facility] Hospital Care/Day Moderate 35 Minutes 67659 5. Hypertensive urgency (I16.0: Hypertensive urgency) Resolved. Continue on lisinopril and metoprolol. Ordered: [facility] Hospital Care/Day Moderate 35 Minutes 00142 6. Right shoulder pain (M25.511: Pain in right shoulder) Secondary to above #1. With atypical presentation. Ordered: [facility] Hospital Care/Day Moderate 35 Minutes 60140 7. Leukocytosis (D72.829: Elevated white blood cell [...] deep vein thrombosis (DVT) prophylaxis (Z79.899: Other gm (current) drug therapy) SCDs. Disposition: Home either today or in a.m. pending cardiology final recommendations. I discussed the diagnosis and plan of care with the patient at the bedside. Moderate level of MDM based on addressing above issues. This documentation was transcribed using voice recognition software. Several attempts were made to ensure accuracy. However inadvertent computerized traffic maintenance officer errors may be present. Ellie Obando. Hospitalist. [...] -- 0 (more content not included)... Normal [facility] Comment on above: Result Comment: Elec tronically Signed By: GAGE HAIDER, Bobbyfo\.br\Date and Time Signed: 01/23/23 09:13 EDT Troponinon 01-23-2023 Troponin I.cardiac [Mass/Vol] 1304.50 pg/mL Abnormal 10.10-27.10 [facility] Comment on above: Result Comment: Crit [...] High Sensitivity Troponin I Instructions For Use, [employer], March 2018) Performed By: #### 2 218319, 0560273, 19894723, 018566063, 7036307, 8417307 #### [facility] [address] [place] [address] eGFRon 01-23-2023 GFR/1.73 sq M.predicted among non-blacks MDRD (S/P/Bld) [Vol rate/Area] 118 mL/min/1.73 m2 Normal >=59 [facility] Comment on above: Order Comment: Order added by Discern Expert. Result Comment: Warp Bleaching Vat Tender reji kidney disease could be indicated at eGFR's of less than 60 mL/min/1.73m2. Kidney failure is indicated at less than 15 mL/min/1.73m2. Performed By: #### 2 199453, 2515595, 71715574, 415206025, 3999531, 7934997 #### [facility] [address] [place] [address] Auto Diffon 01-22-2023 Basophils/100 WBC (Bld) 0.4 % Normal 0.0-2.0 [facility] Comment on above: Order Comment: Order Added by Discern Expert. Performed By: #### 2 491263, 4915089, 89704380, 247681674, 2578142, 9896898 #### [facility] [address] [place] [address] Basophils/Leukocytes Auto (Bld) [Pure # fraction] 0.0 E9/L Normal 0.0-0.2 [facility] Comment on above: Order Comment: Order Added by Discern Expert. Performed By: #### 2 640787, 9678943, 79557199, 727792057, 9996048, 4121131 #### [facility] [address] [place] [address] Eosinophils/100 WBC (Bld) 0.2 % Normal 0.0-8.0 [facility] Comment on above: Order Comment: Order Added by Discern Expert. Performed By: #### 2 236653, 7717644, 86415720, 411496673, 8814249, 2686501 #### [facility] [address] [place] [address] Eosinophils/Leukocyte s Auto (Bld) [Pure # fraction] 0.0 E9/L Normal 0.0-0.5 [facility] Comment on above: Order Comment: Order Added by Discern Expert. Performed By: #### 2 518705, 7383925, 42857034, 357135149, 0644387, 8144245 #### [facility] [address] [place] [address] Lymphocytes/100 WBC (Bld) 24.9 % Normal 14.0-50.0 [facility] Comment on above: Order Comment: Order Added by Discern Expert. Performed By: #### 2 218403, 1798139, 28159189, 252059591, 8010843, 5251117 #### [facility] [address] [place] [address] Lymphocytes/Leukocyte s Auto (Bld) [Pure # fraction] 2.6 E9/L Normal 1.0-4.0 [facility] Comment on above: Order Comment: Order Added by Discern Expert. Performed By: #### 2 039330, 6732969, 51598003, 905194596, 9863006, 7584687 #### [facility] [address] [place] [address] Monocytes/100 WBC (Bld) 4.6 % Normal 4.0-14.0 [facility] Comment on above: Order Comment: Order Added by Discern Expert. Performed By: #### 2 021276, 1085846, 00758204, 645471044, 9181521, 2104797 #### [facility] [address] [place] [address] Monocytes/Leukocytes Auto (Bld) [Pure # fraction] 0.5 E9/L Normal 0.2-1.0 [facility] Comment on above: Order Comment: Order Added by Discern Expert. Performed By: #### 2 637598, 9375671, 87238199, 362498864, 3408175, 2866498 #### [facility] [address] [place] [address] Neutrophils/100 WBC (Bld) 69.9 % Normal 36.0-75.0 [facility] Comment on above: Order Comment: Order Added by Discern Expert. Performed By: #### 2 887706, 6456535, 73758435, 437656244, 2841495, 7557295 #### [facility] [address] [place] [address] Neutrophils/Leukocyte s Auto (Bld) [Pure # fraction] 7.4 E9/L Normal 2.0-7.5 [facility] Comment on above: Order Comment: Order Added by Discern Expert. Performed By: #### 2 717428, 0812431, 93895959, 376148585, 6814551, 1733759 #### [facility] [address] [place] [address] BMPon 01-22-2023 Anion gap [Moles/Vol] 5 mmol/L Low 6-16 [facility] Comment on above: Performed By: #### 2 255041, 7237905, 05644047, 061147758, 6796230, 0643570 #### [facility] [address] [place] [address] Calcium [Mass/Vol] 8.0 mg/dL Low 8.9-11.1 [facility] Comment on above: Performed By: #### 2 801401, 0259828, 02274236, 354960180, 2830587, 7715797 #### [facility] [address] [place] [address] Chloride [Moles/Vol] 107 mmol/L Normal 101-111 [facility] Comment on above: Performed By: #### 2 632230, 8986449, 09323992, 626221575, 9097446, 1105782 #### [facility] [address] [place] [address] CO2 [Moles/Vol] 23 mmol/L Normal 21-31 [facility] Comment on above: Performed By: #### 2 658628, 1504133, 37051572, 048907326, 2628871, 3901127 #### [facility] [address] [place] [address] Creatinine [Mass/Vol] 0.6 mg/dL Normal 0.5-1.3 [facility] Comment on above: Performed By: #### 2 589463, 3576100, 33736502, 608859083, 2685404, 9181731 #### [facility] [address] [place] [address] Glucose [Mass/Vol] 293 mg/dL High 55-199 [facility] Comment on above: Result Comment: If t his glucose result represents a fasting glucose, interpretation should refer to the following reference range: 55-99 mg/dL Performed By: #### 2 095160, 7282381, 03426643, 676044193, 8509957, 9999726 #### [facility] [address] [place] [address] Potassium [Moles/Vol] 4.0 mmol/L Normal 3.5-5.3 [facility] Comment on above: Performed By: #### 2 652342, 4110580, 29460584, 271935808, 4817762, 3769168 #### [facility] [address] [place] [address] Sodium [Moles/Vol] 131 mmol/L Low 135-145 [facility] Comment on above: Performed By: #### 2 136044, 3644381, 63675738, 812025808, 8071524, 2234860 #### [facility] [address] [place] [address] Urea nitrogen [Mass/Vol] 20 mg/dL Normal 5-21 [facility] Comment on above: Performed By: #### 2 312984, 3615567, 87919316, 413973655, 3115761, 5067444 #### [facility] [address] [place] [address] Urea nitrogen/Creatinine [Mass ratio] 33 No Units High 10-20 [facility] [facility] Comment on above: Performed By: #### 2 975870, 1073989, 58085046, 735724490, 6788597, 9368056 #### [facility] [address] [place] [address] CBC w/ Auto Diffon 3 Erythrocyte distribution width (RBC) [Ratio] 14.0 % Normal 10.9-14.2 [facility] Comment on above: Performed By: #### 2 298107, 4886677, 63866720, 329364994, 2563979, 6661375 #### [facility] [address] [place] [address] Hematocrit (Bld) [Volume fraction] 35.5 % Normal 34.0-46.0 [facility] Comment on above: Performed By: #### 2 751000, 7534181, 19165105, 051259746, 2013227, 2375759 #### [facility] [address] [place] [address] Hemoglobin (Bld) [Mass/Vol] 12.5 g/dL Normal 12.0-16.0 [facility] Comment on above: Performed By: #### 2 617284, 8772398, 92093811, 750445241, 9253793, 7593319 #### [facility] [address] [place] [address] MCH (RBC) [Entitic mass] 28.6 pg Normal 27.0-34.0 [facility] Comment on above: Performed By: #### 2 529391, 0670509, 38204982, 917758714, 4575997, 2330259 #### [facility] [address] [place], [place] [address] MCHC (RBC) [Mass/Vol] 35.1 g/dL Normal 31.4-36.0 [facility] Comment on above: Performed By: #### 2 869579, 2916439, 63125868, 777886247, 6924701, 8195733 #### [facility] [address] [place], [place] [address] MCV (RBC) [Entitic vol] 81.5 fL Normal 80.0-100.0 [facility] Comment on above: Performed By: #### 2 127771, 4579403, 60103389, 903124663, 3981643, 1184272 #### [facility] [address] [place] [address] Platelet mean volume (Bld) [Entitic vol] 8.9 fL Normal 6.4-10.8 [facility] Comment on above: Performed By: #### 2 844873, 5237558, 67921655, 483188635, 3896529, 0114540 #### [facility] [address] [place] [address] Platelets (Bld) [#/Vol] 246.0 E9/L Normal 150.0-500.0 [facility] Comment on above: Performed By: #### 2 441930, 7055741, 13403744, 333628298, 3025923, 7915352 #### [facility] [address] [place] [address] RBC (Bld) [#/Vol] 4.4 E12/L Normal 4.3-5.9 [facility] Comment on above: Performed By: #### 2 968931, 2334054, 10452554, 271133062, 0506437, 1520656 #### [facility] [address] [place] [address] WBC corrected for nucl RBC Auto (Bld) [#/Vol] 10.6 E9/L Normal 4.0-11.0 [facility] Comment on above: Performed By: #### 2 865371, 3847217, 53736405, 114463991, 3748002, 8007954 #### [facility] [address] [place] [address] CHEMISTRYOrdered By: Will PATTERSON User on 01-22-2023 Glucose [Mass/Vol] 378 mg/dL High 55 - 99 mg/dL FT C POC Subsection Comment on above: Result Comment: Marino paulson RN/ POC Device SN [id number] Invalid Interpretation Code [facility] POC Subsection POC User ID [id number] Invalid Interpretation Code [facility] POC Subsection POC Username KOBI SINGH Invalid Interpretation Code [facility] POC Subsection CHEMISTRYOrdered By: Stella Lisa on 01-22-2023 Anion gap [Moles/Vol] 5 mmol/L Low 6 - 16 mEq/L F C Remisol Calcium [Mass/Vol] 8.0 mg/dL Low 8.9 [...] 293 mg/dL High 55 - 199 mg/dL [facility] Remisol Potassium [Moles/Vol] 4.0 mmol/L Normal 3.5 - 5.3 mmol/L [facility] Remisol Sodium [Moles/Vol] 131 mmol/L Low 135 - 145 mmol/L [facility] Remisol Triglyceride [Mass/Vol] 300 mg/dL High <=149mg/dL [facility] Remisol Urea nitrogen [Mass/Vol] 20 mg/dL Normal 5 - 21 mg/dL [facility] Remisol Urea nitrogen/Creatinine [Mass ratio] 33 mg/mg High 10 - 20 [facility] Remisol CHEMISTRYOrdered By: SYSTEM SYSTEM on 01-22-2023 GFR/1.73 sq M.predicted among non-blacks MDRD (S/P/Bld) [Vol rate/Area] 113 mL/min/1.73 m2 Normal >=59mL/min/1. 73 m2 [facility] Chem S Troponin I.cardiac [Mass/Vol] 445.10 pg/mL Invalid Interpretation Code 10.10 - 27.10 pg/mL [facility] Remisol Comment on above: Result Comment: Crit ical Result verified by previous result\ Critical Result I_hsTnI:445.1 Called to ROSSY MOE at 3N by VERONIQUE REID and read back for confirmation at 01/22/2023 01:58:36 CHEMISTRYOrdered By: Christiano Clay on 01-22-2023 HbA1c (Bld) [Mass fraction] 11.1 % High <=5.9% [facility] ChemAutoSS Capillary Glucose POCon 01-01 Glucose [Mass/Vol] 378 mg/dL High 55-99 [facility] Comment on above: Result Comment: Marino NEWBY Performed By: #### 2 [id number] ####[facility] [address] [place] [address] Glucose [Mass/Vol] 245 mg/dL High 55-99 [facility] Comment on above: Result Comment: Marino NEWBY Performed By: #### 2 971209, 0223481, 77818225, 106554027, 8258058, 6990188 #### [facility] [address] [place] [address] Glucose [Mass/Vol] 268 mg/dL High 55-99 [facility] Comment on above: Result Comment: Marino NEWBY Performed By: #### 2 [id number] ####[facility] [address] [place] [address] Glucose [Mass/Vol] 215 mg/dL High 55-99 [facility] Comment on above: Result Comment: Marino NEWBY Performed By: #### 2 76112055 ####[facility] [address] [place] [address] Glucose [Mass/Vol] 378 mg/dL High 55-99 [facility] Comment on above: Result Comment: Marino NEWBY Performed By: #### 2 937775, 1884782, 51533869, 153657222, 0394654, 4152727 #### [facility] [address] [place] [address] Cardiovascular Reporton 01-01 Cardiovascular Report [id number] 3#2.00CD:127 Normal [facility] HEMATOLOGYOrdered By: SYSTEM SYSTEM on 01-22-2023 [...] 69.9 % Normal 36.0 - 75.0 % FT HemeAutoSS Neutrophils/Leukocyte s Auto (Bld) [Pure # fraction] 7.4 E9/L Normal 2.0 - 7.5 E9/L FT HemeAutoSS HEMATOLOGYOrdered By: Rogelio Tiwari on 01-22-2023 Erythrocyte distribution width (RBC) [Ratio] 14.0 % Normal 10.9 - 14.2 % FT HemeAutoSS Hematocrit (Bld) [Volume fraction] 35.5 % Normal 34.0 - 46.0 % FT HemeAutoSS Hemoglobin (Bld) [Mass/Vol] 12.5 g/dL Normal 12.0 - 16.0 gm/dL FT HemeAutoSS MCH (RBC) [Entitic mass] 28.6 pg Normal 27.0 - 34.0 pg FT HemeAutoSS MCHC (RBC) [Mass/Vol] 35.1 g/dL Normal 31.4 - 36.0 gm/dL FT HemeAutoSS MCV (RBC) [Entitic vol] 81.5 fL Normal 80.0 - 100.0 fL FT HemeAutoSS Platelet mean volume (Bld) [Entitic vol] 8.9 fL Normal 6.4 - 10.8 fL FT HemeAutoSS Platelets (Bld) [#/Vol] 246.0 E9/L Normal 150.0 - 500.0 E9/L FT HemeAutoSS RBC (Bld) [#/Vol] 4.4 E12/L Normal 4.3 - 5.9 E12/L FT HemeAutoSS WBC corrected for nucl RBC Auto (Bld) [#/Vol] 10.6 E9/L Normal 4.0 - 11.0 E9/L [facility] HemeAutoSS [id number] 01-22-2023 HbA1c (Bld) [Mass fraction] 11.1 % High <=5.9 [facility] Comment on above: Performed By: #### 2 695235, 9309466, 11792640, 725058993, 7452206, 0709491 #### [facility] [address] [place] [address] Interdisciplinary Note - Lemuel e Manageron 01-22-2023 Interdisciplinary Note - Shearer Screen Measurer [employer] entered the room to discuss dc planning. Contact information provided and whiteboard updated. Pt is getting testing. Pending cardiology. ANt dc today. CRM to follow. Normal [facility] Comment on above: Result Comment: Elec tronically Signed By: Cristni Shane.br\Date and Time Signed: 01/22/23 10:52 EDT Lipid Panelon 01-22-2023 Cholesterol [Mass/Vol] 205 mg/dL High 120-200 [facility] Comment on above: Performed By: #### 2 589660, 2433223, 85268871, 997060745, 3231701, 1576996 #### [facility] [address] [place] [address] Cholesterol in HDL [Mass/Vol] 35 mg/dL Invalid Interpretation Code [facility] Comment on above: Result Comment: HDL > or equal to 60 mg/dL: Low cardiovascular risk HDL < 40 mg/dL : High cardiovascular risk Performed By: #### 2 101282, 2996499, 22682859, 411763339, 7637993, 4906970 #### [facility] [address] [place] [address] Cholesterol in LDL [Mass/Vol] 115 mg/dL Normal <=129 [facility] Comment on above: Performed By: #### 2 459648, 9034256, 36093870, 565765443, 4526340, 4483008 #### [facility] [address] [place] [address] Cholesterol in VLDL [Mass/Vol] 60 mg/dL High 7-40 [facility] Comment on above: Performed By: #### 2 524346, 1513850, 38795419, 635132592, 6845613, 9461363 #### [facility] [address] [place] [address] Triglyceride [Mass/Vol] 300 mg/dL High <=149 [facility] Comment on above: Performed By: #### 2 749145, 2576026, 66683000, 808524201, 0698133, 1616573 #### [facility] [address] [place] [address] Monitor Recordon 01-22-2023 Monitor Record [id number] 6#1.00CD:127 Normal [facility] Monitor Record [id number] 5#1.00CD:127 Normal [facility] Monitor Record [id number] 6#1.00CD:127 [facility] Monitor Record [id number] 5#1.00CD:127 [facility] Pre-Certification Formon Pre-Certification Form [id number] 5#1.00CD:127 [facility] Progress Note-Nurseon 2022 Progress Note-Nurse Report given to JACINTO Burgos, who is taking over patient's care in room 328. Loretta made aware that patient currently down in CV Lab. Patient's belongings taken to room 328. Patient's family member also taken down to room 328. [facility] Progress Note-Nurse This proposal lead writer was notified by Dr. Obando at 1303 that patient will go for heart catheterization today. Per Dr. Obando, hold lovenox and make patient NPO. This proposal lead writer will do at this time and notify patient of plan of care. [facility] Progress Note-Nurse This proposal lead writer entered the patient's room to place [...] her right arm would intermittently hurt. This proposal lead writer asked patient if there was anything she could do to help the patient any further, but patient denied any further needs. This proposal lead writer will notify Dr. Obando that patient has had previous right shoulder pain when moving boxes back in November. Normal [facility] Progress Note-Nurse This proposal lead writer was notified by the person performing the echo that patient was having 10/10 right shoulder pain at 10:08. This proposal lead writer entered the patient's room to personally assess the patient. Patient stated she was having 10/10 right shoulder pain, but denied having chest pain. Morphine was given at 10:10. Patient stated at 10:12 right shoulder pain was now 6/10, with no chest pain. This proposal lead writer personally spoke with Dr. Obando on the phone, who stated to have an EKG performed after the Echo and that he would order a lidocaine patch. This proposal lead writer notified both patient and Rema, with radiology that was in the patient's room. Normal [facility] Progress Note-Nurse Patient's step mother called, Chari, requesting updates. Chari not listed in contacts. This proposal lead writer asked patient if it was okay to give Chari updates. Patient stated, yes. This proposal lead writer updated Chari on plan of care. Chari had no further questions at this time. Normal [facility] Progress Note-Physicianon Progress Note-Physician Assessment/Plan 43-year-old [...] morphine and oxygen. Cardiology consult pending. Ordered: [facility] Hospital Care/Day Moderate 35 Minutes 86958 2. Elevated troponin (R77.8: Other specified abnormalities of plasma proteins) Elevated troponin?secondary to NSTEMI. Cardiology consult pending. Continue on aspirin, Lipitor, Lovenox. Echocardiogram pending. Ordered: [facility] Hospital Care/Day Moderate 35 Minutes 32437 3. NSTEMI (non-ST elevation myocardial infarction) (I21.4: Non-ST elevation (NSTEMI) myocardial infarction) Acute NSTEMI?present on admission. Cardiology consult pending. Echocardiogram pending. Continue on aspirin, Lipitor, lisinopril, Lovenox. Ordered: [facility] Hospital Care/Day Moderate 35 Minutes 60620 4. Hypertensive urgency (I16.0: Hypertensive urgency) Resolved. Continue lisinopril. [facility] Moderate 35 Minutes 81269 5. Right shoulder pain (M25.511: Pain in right shoulder) Resolved. [facility] Moderate 35 Minutes 49833 6. Leukocytosis (D72.829: Elevated white blood cell [...] deep vein thrombosis (DVT) prophylaxis (Z79.899: Other gm (current) drug therapy) Lovenox. Disposition: Pending echocardiogram and cardiology consult. I discussed the diagnosis and plan of care with the patient at the bedside. Moderate level of MDM based on addressing above issues. This documentation was transcribed using voice recognition software. Several attempts were made to ensure accuracy. However inadvertent computerized traffic maintenance officer errors may be present. Ellie Obando. Hospitalist. [...] 05:07:00) Lymph Auto: 24.9 % (01/22/23 05:07:00) [place] Auto: 4.6 % (01/22/23 05:07:00) Eos Auto: 0.2 % (01/22/23 05:07:00) Basophil Auto: 0.4 % (01/22/23 05:07:00) Neutro Absolute: 7.4 E9/L (01/22/23 05:07:00) Lymph Absolute: 2.6 E9/L (06 (more content not included)... Normal [facility] Comment on above: Result Comment: Elec tronically Signed By: GAGE HAIDER, Ellie\.br\Date and Time Signed: 01/22/23 09:41 EDT Troponin 6 Hr.on 01-22-2023 Troponin I.cardiac [Mass/Vol] 467.70 pg/mL Abnormal 10.10-27.10 [facility] Comment on above: Result Comment: Crit [...] Sensitivity Troponin I Instructions For Use, [place], March 2018) Performed By: #### 2 202774, 4195578, 45177383, 646620521, 2856613, 9215881 #### [facility] [address] [place] [address] Troponin 9 Hr.on 01-22-2023 Troponin I.cardiac [Mass/Vol] 445.10 pg/mL Abnormal 10.10-27.10 [facility] Comment on above: Result Comment: Crit ical Result verified by previous result\ Critical Result I_hsTnI:445.1 Called to RSOSY MOE at 3N by VERONIQUE REID and [...] Ruben, March 2018) Performed By: #### 1 [id number] #### [facility] [address] [place] [address] XR Chest Single Viewon 01-22 XR Chest [...] mGy = na DAP = na Normal [facility] eGFRon 01-22-2023 GFR/1.73 sq M.predicted among non-blacks MDRD (S/P/Bld) [Vol rate/Area] 113 mL/min/1.73 m2 Normal >=59 [facility] Comment on above: Order Comment: Order added by Discern Expert. Result Comment: Warp Bleaching Vat Tender reji kidney disease could be indicated at eGFR's of less than 60 mL/min/1.73m2. Kidney failure is indicated at less than 15 mL/min/1.73m2. Performed By: #### 2 472059, 3428672, 52618257, 154878979, 2491125, 9647411 #### [facility] [address] [place] [address] Auto Diffon 01-21-2023 Basophils/100 WBC (Bld) 0.3 % Normal 0.0-2.0 [facility] Comment on above: Order Comment: Order Added by Discern Expert. Performed By: #### 2 579646, 1454505, 29670471, 708176840, 8413442, 3038334 #### [facility] [address] [place] [address] Basophils/Leukocytes Auto (Bld) [Pure # fraction] 0.0 E9/L Normal 0.0-0.2 [facility] Comment on above: Order Comment: Order Added by Discern Expert. Performed By: #### 2 056821, 1212528, 27716832, 210462980, 8579670, 7807757 #### [facility] [address] [place] [address] Eosinophils/100 WBC (Bld) 0.1 % Normal 0.0-8.0 [facility] Comment on above: Order Comment: Order Added by Discern Expert. Performed By: #### 2 261180, 9240827, 57047426, 187513215, 2947387, 7864873 #### [facility] [address] [place] [address] Eosinophils/Leukocyte s Auto (Bld) [Pure # fraction] 0.0 E9/L Normal 0.0-0.5 [facility] Comment on above: Order Comment: Order Added by Discern Expert. Performed By: #### 2 917440, 3932205, 42966785, 964358742, 0485751, 6327181 #### [facility] [address] [place] [address]17 Lymphocytes/100 WBC (Bld) 8.6 % Low 14.0-50.0 [facility] Comment on above: Order Comment: Order Added by Discern Expert. Performed By: #### 2 539591, 1353327, 18344741, 348885203, 2967111, 5200268 #### [facility] [address] [place] [address] Lymphocytes/Leukocyte s Auto (Bld) [Pure # fraction] 1.2 E9/L Normal 1.0-4.0 [facility] Comment on above: Order Comment: Order Added by Discern Expert. Performed By: #### 2 747099, 2097014, 75011209, 191699716, 4960342, 4468130 #### [facility] [address] [place] [address] Monocytes/100 WBC (Bld) 4.8 % Normal 4.0-14.0 [facility] Comment on above: Order Comment: Order Added by Discern Expert. Performed By: #### 2 756130, 4891764, 15636173, 643299286, 7662364, 5715251 #### [facility] [address] [place] [address] Monocytes/Leukocytes Auto (Bld) [Pure # fraction] 0.7 E9/L Normal 0.2-1.0 [facility] Comment on above: Order Comment: Order Added by Discern Expert. Performed By: #### 2 715165, 9532700, 77064303, 099151339, 0072768, 5575692 #### [facility] [address] [place] [address] Neutrophils/100 WBC (Bld) 86.2 % High 36.0-75.0 [facility] Comment on above: Order Comment: Order Added by Discern Expert. Performed By: #### 2 230462, 2896845, 19013295, 491510165, 6470160, 3272491 #### [facility] [address] [place] [address] Neutrophils/Leukocyte s Auto (Bld) [Pure # fraction] 12.3 E9/L High 2.0-7.5 [facility] Comment on above: Order Comment: Order Added by Discern Expert. Performed By: #### 2 957937, 4528518, 75112732, 617105006, 5817067, 8320484 #### [facility] [address] [place] [address] BMPon 01-21-2023 Anion gap [Moles/Vol] 14 mmol/L Normal 6-16 [facility] Comment on above: Performed By: #### 2 813348, 5409072, 78303188, 746428169, 5161513, 2681195 #### [facility] [address] [place] [address] Calcium [Mass/Vol] 9.0 mg/dL Normal 8.9-11.1 [facility] Comment on above: Performed By: #### 2 974726, 1747736, 61462218, 624026455, 2152717, 0309182 #### [facility] [address] [place] [address] Chloride [Moles/Vol] 101 mmol/L Normal 101-111 [facility] Comment on above: Performed By: #### 2 539912, 6755854, 19929682, 672206309, 7751162, 6029791 #### [facility] [address] [place] [address] CO2 [Moles/Vol] 18 mmol/L Low 21-31 [facility] Comment on above: Performed By: #### 2 165451, 2859511, 50333510, 307532366, 6556766, 2431351 #### [facility] [address] [place] [address] Creatinine [Mass/Vol] 0.7 mg/dL Normal 0.5-1.3 [facility] Comment on above: Performed By: #### 2 849030, 9521378, 76212059, 347341835, 6084676, 0897705 #### [facility] [address] [place] [address] Glucose [Mass/Vol] 491 mg/dL Abnormal 55-199 [facility] Comment on above: Result Comment: Crit ical Result verified by repeat analysis\Critical Result [id number] MARTIN AT by CIARA HOWARD And Read Back For Confirmation at: 01/21/2023 17:05:30 If this glucose result represents a fasting glucose, interpretation should refer to the following reference range: 55-99 mg/dL Performed By: #### 2 524442, 9762677, 98469442, 493113632, 2172957, 8491260 #### [facility] [address] [place] [address] Potassium [Moles/Vol] 4.0 mmol/L Normal 3.5-5.3 [facility] Comment on above: Performed By: #### 2 541047, 6097225, 94544583, 442626259, 3975649, 0740766 #### [facility] [address] [place] [address] Sodium [Moles/Vol] 129 mmol/L Low 135-145 [facility] Comment on above: Performed By: #### 2 712490, 8040576, 52009611, 288709194, 7318634, 3131258 #### [facility] [address] [place] [address] Urea nitrogen [Mass/Vol] 23 mg/dL High 5-21 [facility] Comment on above: Performed By: #### 2 422983, 5397393, 06368849, 551328156, 4264768, 7893166 #### [facility] [address] [place] [address] Urea nitrogen/Creatinine [Mass ratio] 33 No Units High 10-20 [facility] Comment on above: Performed By: #### 2 351558, 2884630, 94635063, 748727549, 0386233, 1403994 #### [facility] [address] [place] [address] BOHBon 01-21-2023 Beta hydroxybutyrate [Moles/Vol] 0.86 mmol/L High 0.02-0.27 [facility] Comment on above: Performed By: #### 2 872423, 8910213, 98710486, 706720297, 4028302, 4489258 #### [facility] [address] [place] [address] CBC w/ Auto Diffon Erythrocyte distribution width (RBC) [Ratio] 14.2 % Normal 10.9-14.2 [facility] Comment on above: Performed By: #### 2 934101, 7596362, 07853964, 350945324, 8288901, 8623165 #### [facility] [address] [place] [address] Hematocrit (Bld) [Volume fraction] 41.9 % Normal 34.0-46.0 [facility] Comment on above: Performed By: #### 2 289025, 2864285, 23643456, 206715105, 9146042, 8888375 #### [facility] [address] [place] [address] Hemoglobin (Bld) [Mass/Vol] 14.2 g/dL Normal 12.0-16.0 [facility] Comment on above: Performed By: #### 2 637239, 1432633, 46885929, 910371582, 8223653, 5241824 #### [facility] [address] [place], [place] [address] MCH (RBC) [Entitic mass] 28.0 pg Normal 27.0-34.0 [facility] Comment on above: Performed By: #### 2 058996, 3492149, 40905800, 367157526, 0489719, 3687210 #### [facility] [address] [place], [place] [address] MCHC (RBC) [Mass/Vol] 33.9 g/dL Normal 31.4-36.0 [facility] Comment on above: Performed By: #### 2 643656, 0877367, 71546097, 667164837, 9908804, 4268538 #### [facility] [address] [place] [address] MCV (RBC) [Entitic vol] 82.6 fL Normal 80.0-100.0 [facility] Comment on above: Performed By: #### 2 176426, 2656695, 40053682, 758879448, 4241349, 1576038 #### [facility] [address] [place] [address] Platelet mean volume (Bld) [Entitic vol] 8.8 fL Normal 6.4-10.8 [facility] Comment on above: Performed By: #### 2 046234, 8517911, 18236377, 493814041, 7784637, 9612994 #### [facility] [address] [place] [address] Platelets (Bld) [#/Vol] 240.0 E9/L Normal 150.0-500.0 [facility] Comment on above: Performed By: #### 2 991597, 1950531, 47450026, 920159014, 7449654, 5790565 #### [facility] [address] [address] RBC (Bld) [#/Vol] 5.1 E12/L Normal 4.3-5.9 [facility] Comment on above: Performed By: #### 2 794269, 9122361, 06157265, 569155009, 7484695, 3188442 #### [facility] [address] [place] [address] WBC corrected for nucl RBC Auto (Bld) [#/Vol] 14.2 E9/L High 4.0-11.0 [facility] Comment on above: Performed By: #### 2 [id number], [id number], [id number], [id number], [id number], [id number] #### [facility] [address] [place], [place] [id number] CHEMISTRYOrdered By: SYSTEM SYSTEM on 01-21-2023 Troponin [...] mmol/L Normal 101 - 1 11 mmol/L [facility] Remisol CO2 [Moles/Vol] 18 mmol/L Low 21 - 31 mmol/L [facility] Remisol Creatinine [Mass/Vol] 0.7 mg/dL Normal 0.5 - 1.3 mg/dL [facility] Remisol GFR/1.73 sq M.predicted among non-blacks MDRD (S/P/Bld) [Vol rate/Area] 109 mL/min/1.73 m2 Normal >=59mL/min/1. 73 m2 [facility] Chem S Glucose [Mass/Vol] 491 mg/dL Invalid Interpretation Code 55 - 199 mg/dL [facility] Comment on above: Result Comment: Crit ical Result verified by repeat analysis\Critical Result [id number] MARTIN AT ER by CIARA HOWARD And Read Back For Confirmation at: 01/21/2023 17:05:30 Potassium [Moles/Vol] 4.0 mmol/L Normal 3.5 - 5.3 mmol/L [facility] Remisol Sodium [Moles/Vol] 129 mmol/L Low 135 - 145 mmol/L [facility] Remisol Urea nitrogen [Mass/Vol] 23 mg/dL High 5 - 21 mg/dL [facility] Remisol Urea nitrogen/Creatinine [Mass ratio] 33 mg/mg High 10 - 20 [facility] Remisol Consent for Treatmenton 01-01 Consent for Treatment [id number] 98#1.00CD:127 Normal [facility] ED Clinical Summaryon 2022 ED Clinical Summary [place] [id number] ED Clinical Summary Person Information Name: ESCOBAR ORTEGA [place]us [place] Age: 43 Years : 1980 Sex: Female Language: South Sudanese PCP: Gentry Carrillo MD Marital Status: Phone: [phone] Visit Id: Visit Reason: Chest pain; CHEST PAIN Speciality: Acuity: 3 Enc Type: Observation Med Service: Medical Arrival: 01/21/2023 16:19:22 Discharge: LOS: 000 03:20 Checkin: 01/21/2023 16:19:22 Checkout: 01/21/2023 19:39:40 Dispo Type: Admitted as IP to this [facility] EVENTS: Event Name Event Status Request Date/Time [...] 19:12:01 Meds Admin Request 01/21/2023 19:13:12 ADDRESS: [phone] PHYS DOC NOTES: MEDICAL INFORMATION: Prescriptions Given: Medications to Continue with No Changes Other Medications acetaminophen-hydroc odone (Vicodin 500mg-5mg Tab) 1 Tablets By Mouth every 4 hours as needed for pain. Refills: 0. PATIENT EDUCATION INFORMATION: Instructions: Follow up: With: Address: When: Gentry Carrillo [facility], [place] [address] Business (1) In 3 days DIAGNOSIS: 1:Chest pain; 2:Elevated troponin; 3:Hypertensive urgency; 4:Right shoulder pain; 5:Leukocytosis; 6:Hyperglycemia; 7:Hyponatremia; 8:Metabolic acidosis; 9:HTN (hypertension); 10:Diabetes mellitus; 11:Obese; 12:On deep vein thrombosis (DVT) prophylaxis Normal [facility] ED Note-Physicianon 01-22-20 ED Note-Physician Basic Information Time Seen: Daisy Campos M.D. 01/21/2023 16:49 Chief Complaint pt states just seen for arm pain, given rx steroid. 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 She states she was seen at [facility] yesterday and given steroids. The patient [...] and Complexity of Problems Differential Diagnosis: [] [facility] Data External documents reviewed: [] My EKG [...] (primary) hypert (more content not included)... Normal [facility] Comment on above: Result Comment: Elec tronically Signed By: Andres Mejia, Daisy Blair\.br\Date and Time Signed: 01/21/23 19:01 EDT ED Patient Education Noteon 01-21-2023 ED Patient Education Note Normal [facility] ED Patient Summaryon 023 ED Patient Summary [address] [address] Patient Discharge Instructions Person Information Name: ESCOBAR ORTEGA Age: 43 Years Arrival Date: 01/21/2023 16:19:22 Discharge Diagnosis: 1:Chest pain; 2:Elevated troponin; 3:Hypertensive urgency; 4:Right shoulder pain; 5:Leukocytosis; 6:Hyperglycemia; 7:Hyponatremia; 8:Metabolic acidosis; 9:HTN (hypertension); 10:Diabetes mellitus; 11:Obese; 12:On deep vein thrombosis (DVT) prophylaxis Primary Care Physician: Gentry Carrillo MD Provider Information Primary Provider: Daisy Campos M.D. Advanced Lathing Supervisor:None The exam and treatment you received in the Emergency Department were for an urgent problem and are not intended as complete care. It is important that you follow up with a doctor, nurse practitioner, or physician?s molding line assistant for ongoing care. If your symptoms [...] Follow-up Instructions: With: Address: When: Gentry Carrillo [address] [place] [address], [facility] [address] Business (1) In 3 days In the event that this physician does not participate in your insurance network, please consult with your insurance company to find a nearby participating provider. Patient Education Materials: A MESSAGE TO ALL PATIENTS REGARDING OPIOIDS PRESCRIPTION OPIOIDS: WHAT YOU NEED TO KNOW Prescription opioids can be used to help relieve xyuhxngr-ha-cvgmsp pain and are often prescribed following a [...] and overdo (more content not included)... Normal [facility] HEMATOLOGYOrdered By: SYSTEM SYSTEM on 01-21-2023 [...] 14.2 % Normal 10.9 - 14.2 % FT HemeAutoSS Hematocrit (Bld) [Volume fraction] 41.9 % Normal 34.0 - 46.0 % [facility] HemeAutoSS Hemoglobin (Bld) [Mass/Vol] 14.2 g/dL Normal 12.0 - 16.0 gm/dL [facility] HemeAutoSS MCH (RBC) [Entitic mass] 28.0 pg Normal 27.0 - 34.0 pg [facility] HemeAutoSS MCHC (RBC) [Mass/Vol] 33.9 g/dL Normal 31.4 - 36.0 gm/dL [facility] HemeAutoSS MCV (RBC) [Entitic vol] 82.6 fL Normal 80.0 - 100.0 fL [facility] HemeAutoSS Platelet mean volume (Bld) [Entitic vol] 8.8 fL Normal 6.4 - 10.8 fL [facility] HemeAutoSS Platelets (Bld) [#/Vol] 240.0 E9/L Normal 150.0 - 500.0 E9/L [facility] HemeAutoSS RBC (Bld) [#/Vol] 5.1 E12/L Normal 4.3 - 5.9 E12/L [facility] HemeAutoSS WBC corrected for nucl RBC Auto (Bld) [#/Vol] 14.2 E9/L High 4.0 - 11.0 E9/L [facility] HemeAutoSS Monitor Recordon 01-21-2023 Monitor Record [id number] 8#1.00CD:127 Normal [facility] Monitor Record [id number] 5#1.00CD:127 Normal [facility] Troponin 0 Hr.on 01-21-2023 Troponin I.cardiac [Mass/Vol] 201.10 pg/mL Abnormal 10.10-27.10 [facility] Comment on above: Result Comment: Crit [...] conjunction with clinical conditions of myocardial infarction. (Hakia High Sensitivity Troponin I Instructions For Use, [employer], March 2018) Performed By: #### 2 [id number], [id number], [id number], [id number], [id number], [id number] #### [facility] [address] [place] [address] Troponin 3 Hr.on 01-21-2023 Troponin I.cardiac [Mass/Vol] 258.00 pg/mL Abnormal 10.10-27.10 [facility] Comment on above: Order Comment: pt no t yet in room from er as of 1924 [id number] 01/21/2023 19:37:18 EDT Result Comment: Crit ical [...] conjunction with clinical conditions of myocardial infarction. (Hakia High Sensitivity Troponin I Instructions For Use, [employer], March 2018) Performed By: #### 1 [id number] #### [facility] [address] [place] [address] UA With Cult Reflexon 2022 Bilirubin Ql (U) Negative Normal Negative [facility] Comment on above: Performed By: #### 1 [id number] ####[facility] [address] [place] [address] Clarity (U) CLEAR Normal Clear [facility] Comment on above: Performed By: #### 1 [id number] ####[facility] [address] [place] [address] Color (U) STRAW Abnormal Yellow [facility] Comment on above: Performed By: #### 1 [id number] ####[facility] [address] [place] [address] Epithelial cells.squamous LM.HPF (Urine sed) [#/Area] 0-2 Normal 0-2 [facility] Comment on above: Performed By: #### 1 [id number] ####[address] [address] Glucose Test strip (U) [Mass/Vol] 3+ Abnormal Negative [facility] Comment on above: Performed By: #### 1 [id number] ####[address] [address] Hemoglobin Ql (U) Negative Normal Negative [facility] Comment on above: Performed By: #### 1 [id number] ####[address] [address] Ketones (U) [Mass/Vol] 1+ Abnormal Negative [facility] Comment on above: Performed By: #### 1 [id number] ####[address] [address] [place].plasma/Lithiu m.RBC (Bld) [Mass ratio] 0-3 Normal 0-3 [facility] Comment on above: Performed By: #### 1 [id number] ####[address] [address] Nitrite Ql (U) Negative Normal Negative [facility] Comment on above: Performed By: #### 1 [id number] ####[address] [address] pH (U) 6.0 [pH] Invalid Interpretation Code 5.0-9.0 [facility] Comment on above: Performed By: #### 1 [id number] ####[address] [address] Protein (U) [Mass/Vol] Negative Normal Negative [facility] Comment on above: Performed By: #### 1 [id number] ####[address] [address] Specific gravity (U) [Rel density] 1.015 Invalid Interpretation Code 1.005-1.030 [facility] Comment on above: Performed By: #### 1 [id number] ####[facility] [address] [place] [address] Type of Urine collection method Clean Catch Normal [facility] Comment on above: Performed By: #### 1 [id number] ####[facility] [address] [place] [address] Urobilinogen Qn (U) 0.2 {Ankit'U}/dL Normal 0.0-1.0 [facility] Comment on above: Performed By: #### 1 [id number] ####[facility] [address] [place] [address] WBC Auto Ql (U) Negative Normal Negative [facility] Comment on above: Performed By: #### 1 [id number] ####[facility] [address] [place] [address] WBC LM.HPF (Urine sed) [#/Area] 0-5 Normal 0-5 [facility] Comment on above: Performed By: #### 1 [id number] ####[facility] [address] [place] [address] URINALYSISOrdered By: Rogelio Tiwari on 01-21-2023 Bilirubin [...] Interpretation Code Negative [facility] UA Auto SS [place].plasma/Lithiu m.RBC (Bld) [Mass ratio] 0-3 /HPF Normal [...] Desc Clean Catch (01/21/23 5:53 PM) Normal FT UA Auto SS Urobilinogen Qn (U) 0.0960892 {Ankit'U}/dL Normal 0.0 - 1.0 EU/dL [facility] UA Auto SS WBC Auto Ql (U) Negative (01/21/23 5:53 PM) Normal Negative [facility] UA Auto SS WBC LM.HPF (Urine sed) [#/Area] 0-5 /HPF Normal 0-5/HPF [facility] UA Auto SS eGFRon 01-21-2023 GFR/1.73 sq M.predicted among non-blacks MDRD (S/P/Bld) [Vol rate/Area] 109 mL/min/1.73 m2 Normal >=59 [facility] Comment on above: Order Comment: Order Added by Discern Expert. Result Comment: Warp Bleaching Vat Tender reji kidney disease could be indicated at eGFR's of less than 60 mL/min/1.73m2. Kidney failure is indicated at less than 15 mL/min/1.73m2. Performed By: #### 2 [id number], [id number], [id number], [id number], [id number], [id number] #### [facility] [address] [place] [address] Consent for Treatmenton 11-30 Consent for Treatment [id number] #1.00CD:127 Normal [facility] Discharge Instructionson Discharge Instructions [id number] 1#1.00CD:127 Normal [facility] ED Clinical Summaryon 2022 ED Clinical Summary [address] [address] ED Clinical Summary Person Information Name: ESCOBAR ORTEGA [place] Age: 42 Years : 1980 Sex: Female Language: South Sudanese PCP: Gentry Carrillo MD Marital Status: Phone: [phone] Visit Id: Visit Reason: Foot pain-swelling; RIGHT [...] 12/12/2022 08:15:04 12/12/2022 08:15:04 12/12/2022 08:15:04 ADDRESS: [facility] [phone] PHYS DOC NOTES: MEDICAL INFORMATION: Prescriptions Given: Medications to Continue with No Changes Other Medications acetaminophen-hydroc odone (Vicodin 500mg-5mg Tab) 1 Tablets By Mouth every 4 hours as needed for pain. Refills: 0. PATIENT EDUCATION INFORMATION: Instructions: Foot Contusion Follow up: With: Address: When: Nelson HENSLEY [facility], [facility], [address] [place] [address], [place] [address] 6 Blend (1) In 3 days 12/15/2022 Comments: Call the office of the patient experience coordinator on Wednesday and arrange for evaluation of the toe. With: Address: When: Gentry Carrillo [facility], [place] [address] Business (1) In 3 days [...] from the toe. DIAGNOSIS: Toe contusion Normal [facility] ED Note-Physicianon 12-13-19 ED Note-Physician Basic Information Time Seen: Yassine ANNA Pako M. 12/12/2022 07:33 Chief Complaint patient c/o swelling [...] Nelson Meade In 3 days 12/15/2022 EDT [facility] - [facility] [address] [facility] [place] [address] 9 Business (1) Additional Instructions: Call the office of the patient experience coordinator on Wednesday and arrange for evaluation of the toe. Gentry Carrillo In 3 days 12/15/2022 EDT [address] [facility] [place] [address]- Business (1) Additional Instructions: Call the office [...] active inp (more content not included)... Normal [facility] Comment on above: Result Comment: Elec [...] may be recommended to support your foot. Eshv-rhf-ypliqbh anti-inflammatory medicines may also be recommended for [...] or lying down. General instructions ? Take egzw-aqn-jasrkcf and prescription medicines only as told by [...] Reviewed: 10/22/2021 Elsevier Patient Education ? 2022 [employer] Normal [facility] ED Patient Summaryon 023 ED Patient Summary [address] [address] Patient Discharge Instructions Person Information Name: ESCOBAR ORTEGA Age: 42 Years Arrival Date: 12/12/2022 07:19:23 Discharge Diagnosis: Toe contusion Primary Care Physician: Gentry Carrillo MD Provider Information Primary Provider: Pako Metzger DO Advanced Lathing Supervisor:None The exam and treatment you received in the Emergency Department were for an urgent problem and are not intended as complete care. It is important that you follow up with a doctor, nurse practitioner, or physician?s molding line assistant for ongoing care. If your symptoms [...] Instructions: With: Address: When: Nelson HENSLEY - [facility], [facility], [address] [place] [address], [place] [address], [place] [address] 1 Business (1) In 3 days 12/15/2022 Comments: Call the office of the patient experience coordinator on Wednesday and arrange for evaluation of the toe. With: Address: When: Gentry Carrillo [address] [facility], [facility] [address] Business (1) In 3 days [...] opioids can be used to help relieve idhmvvik-nl-mqwkhb pain and are often prescribed following a [...] psychological, goal-directed (more content not included)... Normal [facility] XR Toe(s) Min 2 Views Righto [...] mGy = na DAP = na Normal [facility] PAP ACOG PANEL 2: 30 to 65on 06-22-2022 . . Normal [facility] Comment on above: Result Comment: Perf ormed at: WB Performed By: #### L BASIA DRIVER, CMP #### [facility] [address] [place] [address] Dr. Neisha Araiza Age Gdln ACOG Testing 30-65 Normal [facility] Comment on above: Performed By: #### L BASIA DRIVER, CMP #### [facility] [address] [place] [address] [address] Neisha Araiza DIAGNOSIS: Comment [facility] Comment on above: Result Comment: NEGA TIVE FOR INTRAEPITHELIAL LESION OR MALIGNANCY. Performed at: WB Performed By: #### L NEISHA BASIA, CMP #### [facility] [address] [place] [address] Dr. Neisha Araiza HPV Aptima Negative Normal Negative [facility] Comment on above: Result Comment: This nucleic acid amplification test detects fourteen high-risk HPV types (16,18,31,33,35,39,45,51,52,56,58,59,66,68) without differentiation. Performed at: =G Performed By: #### L IPA, BASIA, CMP #### [facility] [address] [place] [address] Dr. Neisha Araiza HPV Genotype Reflex Comment Normal [facility] Comment on above: Result Comment: Crit eria not met, HPV Genotype not performed. Performed at: WB Performed By: #### L NEISHA BASIA, CMP #### [facility] [address] [place] [address] Dr. Neisha Araiza Methodology: Comment Normal [facility] Comment on above: Result Comment: This liquid based ThinPrep(R) pap test was screened with the use of an image guided system. Performed at: WB Performed By: #### L BASIA DRIVER, CMP #### [facility] [address] [place] [address] Dr. Neisha Araiza Note: Comment Normal [facility] Comment on above: Result Comment: The Pap smear is a screening test designed to aid in the detection of premalignant and malignant conditions of the uterine cervix. It is not a diagnostic procedure and should not be used as the sole means of detecting cervical cancer. Both false-positive and false-negative reports do occur. . Performed at: WB Performed By: #### L NEISHA BASIA, CMP #### [facility] [address] [place] [address] Dr. Neisha Araiza Performed by: Comment Normal [facility] Comment on above: Result Comment: Tisha Sanders, Booking Supervisor (ASCP) Performed at: WB Performed By: #### L IPA BASIA, CMP #### [facility] [address] [place] [address] Dr. Neisha Araiza Specimen adequacy: Comment Normal [facility] Comment on above: Result Comment: Sati sfactory for evaluation. Endocervical and/or squamous metaplastic cells (endocervical component) are present. Performed at: WB Performed By: #### L BASIA DRIVER, CMP #### [facility] [address] [place] [address] [address] Neisha Araiza Covid-19 PCR (CVDTBH)on 04-03 SARS-CoV-2 (COVID-19) RNA TIM+probe Ql (Unsp spec) Not detected Normal NOT DETECTED [facility] Comment on above: Result Comment: This test is not yet approved or cleared by the [place] FDA. When there are no FDA-approved or cleared tests available, and other criteria are met, FDA can make tests available under an emergency access mechanism called an Emergency Use Authorization (EUA). The EUA for this test is supported by the [employer] of Health and Human Service's (HHS's) declaration [...] SARS-CoV-2. Performed By: #### C BC #### [facility] [address] [place] [address] Dr. Neisha Araiza Covid-19 PCR (CVDTBH)on 04-03 SARS-CoV-2 (COVID-19) RNA TIM+probe Ql (Unsp spec) Not detected Normal NOT DETECTED [facility] Comment on above: Result Comment: This test is not yet approved or cleared by the [place] FDA. When there are no FDA-approved or cleared tests available, and other criteria are met, FDA can make tests available under an emergency access mechanism called an Emergency Use Authorization (EUA). The EUA for this test is supported by the [employer] of Health and Human Service's (HHS's) declaration [...] SARS-CoV-2. Performed By: #### C BC #### [facility] [address] [place] [address] Dr. Neisha Araiza CHLAMYDIA/GONOCOCCUS TIM ( AB/URINE/PAPon 04-17-2022 Chlamydia trachomatis, TIM Negative Normal Negative [facility] Comment on above: Performed By: #### C BC #### [facility] [address] [place] [address] Dr. Neisha Araiza Neisseria gonorrhoeae, TIM Negative Normal Negative [facility] Comment on above: Performed By: #### C BC #### [facility] [address] [place] [address] Dr. Neisha Araiza VAGINITIS/VAGINOSIS DNA PROB [employer] 04-16-2022 Heather species Positive Abnormal Negative [facility] Comment on above: Performed By: #### L IPABASIA, CMP #### [facility] [address] [place] [address] Dr. Neisha Araiza Gardnerella vaginalis Positive Abnormal Negative [facility] Comment on above: Performed By: #### L IPA BASIA, CMP #### [facility] [address] [place] [address] Dr. Neisha Araiza Trichomonas vaginalis Negative Normal Negative [facility] Comment on above: Performed By: #### L IPA, BASIA, CMP #### [facility] [address] [place] [address] Dr. Neisha Araiza AMYLASEon 01-05-2022 Amylase [Catalytic activity/Vol] 20 U/L Critically low 25-115 [facility] Comment on above: Performed By: #### C BC #### [facility] [address] [address] [address] Neisha Araiza CBC AUTO DIFFon 01-05-2022 BASO # 0.0 103/ul Normal 0.0-0.1 [facility] Comment on above: Performed By: #### C BC #### [facility] [address] [place] [address] Dr. Neisha Araiza Basophils/100 WBC (Bld) 0.6 % Normal 0.2-2.0 [facility] Comment on above: Performed By: #### C BC #### [facility] [address] [place] [address] Dr. Neisha Araiza EO # 0.1 103/ul Normal 0.0-0.7 [facility] Comment on above: Performed By: #### C BC #### [facility] [address] [place] [address] Dr. Neisha Araiza Eosinophils/100 WBC (Bld) 0.7 % Critically low 0.9-7.0 [facility] Comment on above: Performed By: #### C BC #### [facility] [address] [place] [address] Dr. Neisha Araiza Erythrocyte distribution width (RBC) [Ratio] 13.5 % Normal 11.0-15.0 [facility] Comment on above: Performed By: #### C BC #### [facility] [address] [place] [address] Dr. Neisha Araiza Hematocrit (Bld) [Volume fraction] 35.3 % Critically low 36.0-48.0 [facility] Comment on above: Performed By: #### C BC #### [facility] [address] [place] [address] Dr. Neisha Araiza Hemoglobin (Bld) [Mass/Vol] 11.8 g/dL Critically low 12.0-16.0 [facility] Comment on above: Performed By: #### C BC #### [facility] [address] [place] [address] Dr. Neisha Araiza IG # 0.02 10e3/ul Normal 0.00-0.03 [facility] Comment on above: Performed By: #### C BC #### [facility] [address] [place] [address] Dr. Neisha Araiza IG % 0.3 % Normal 0.0-0.5 [facility] Comment on above: Performed By: #### C BC #### [facility] [address] [place] [address] Dr. Neisha Araiza LYMPH # 2.3 103/ul Normal 1.2-3.8 [facility] Comment on above: Performed By: #### C BC #### [facility] [address] [place] [address] Dr. Neisha Araiza Lymphocytes/100 WBC (Bld) 33.2 % Normal 20.5-60.0 [facility] Comment on above: Performed By: #### C BC #### [facility] [address] [place] [address] Dr. Neisha Araiza MANUAL DIFF REQ NO Normal [facility] Comment on above: Performed By: #### C BC #### [facility] [address] [place] [address] Dr. Neisha Araiza MCH (RBC) [Entitic mass] 29.1 pg Normal 26.7-34.0 [facility] Comment on above: Performed By: #### C BC #### [facility] [address] [place] [address] Dr. Neisha Araiza MCHC (RBC) [Mass/Vol] 33.4 g/dL Normal 29.9-35.2 [facility] Comment on above: Performed By: #### C BC #### [facility] [address] [place] [address] Dr. Neisha Araiza MCV (RBC) [Entitic vol] 86.9 fL Normal 81.0-99.0 [facility] Comment on above: Performed By: #### C BC #### [facility] [address] [place] [address] Dr. Neisha Araiza MONO # 0.6 103/ul Normal 0.3-0.8 [facility] Comment on above: Performed By: #### C BC #### [facility] [address] [address] [address] Neisha Araiza Monocytes/100 WBC (Bld) 8.6 % Normal 1.7-12.0 [facility] Comment on above: Performed By: #### C BC #### [facility] [address] [address] [address] Neisha Araiza NEUT # 3.9 103/ul Normal 1.4-6.5 [facility] Comment on above: Performed By: #### C BC #### [facility] [address] [address] [address] Neisha Araiza Neutrophils/100 WBC (Bld) 56.6 % Normal 43.0-75.0 [facility] Comment on above: Performed By: #### C BC #### [facility] [address] [place] [address] Dr. Neisha Araiza Platelet mean volume (Bld) [Entitic vol] 9.5 fL Normal 9.5-13.5 [facility] Comment on above: Performed By: #### C BC #### [facility] [address] [place] [address] Dr. Neisha Araiza PLT 200 103/ul Normal 150-450 [facility] Comment on above: Performed By: #### C BC #### [facility] [address] [place] [address] Dr. Neisha Araiza RBC 4.06 106/ul Critically low 4.20-5.40 [facility] Comment on above: Performed By: #### C BC #### [facility] [address] [place] [address] Dr. Neisha Araiza WBC 7.0 103/ul Normal 4.0-11.0 [facility] Comment on above: Performed By: #### C BC #### [facility] [address] [place] [address] Dr. Neisha Araiza LIPASEon 01-05-2022 Lipase [Catalytic activity/Vol] 133.0 U/L Normal 73.0-393.0 [facility] Comment on above: Performed By: #### C BC #### [facility] [address] [place] [address] Dr. Neisha Araiza POINT OF CARE GLUCOSEon Glucose [Mass/Vol] 240 mg/dL Critically high 74-106 [facility] Comment on above: Performed By: #### P OCGLUC #### [facility] [address] [place] [address] Dr. Neisha Araiza Glucose [Mass/Vol] 240 mg/dL Critically high -106 [facility] Comment on above: Performed By: #### L IPA, BSAIA, CMP #### [facility] [address] [place] [address] Dr. Neisha Araiza PROF 14(COMP METB)on 022 Albumin [Mass/Vol] 2.3 g/dL Critically low 3.4-5.0 [facility] Comment on above: Performed By: #### C BC #### [facility] [address] [place] [address] Dr. Neisha Araiza Albumin/Globulin [Mass ratio] 0.8 {ratio} Normal [facility] Comment on above: Performed By: #### C BC #### [facility] [address] [place] [address] Dr. Neisha Araiza ALP [Catalytic activity/Vol] 78 U/L Normal 46-116 [facility] Comment on above: Performed By: #### C BC #### [facility] [address] [place] [address] Dr. Neisha Araiza ALT [Catalytic activity/Vol] 21 U/L Normal 14-59 [facility] Comment on above: Performed By: #### C BC #### [facility] [address] [place] [address] Dr. Neisha Araiza Anion gap [Moles/Vol] 15.2 mmol/L Normal [facility] Comment on above: Performed By: #### C BC #### [facility] [address] [place] [address] Dr. Neisha Araiza AST [Catalytic activity/Vol] 20 U/L Normal 15-37 [facility] Comment on above: Performed By: #### C BC #### [facility] [address] [address] [address] Neisha Araiza Bilirubin [Mass/Vol] 0.8 mg/dL Normal 0.2-1.0 [facility] Comment on above: Performed By: #### C BC #### [facility] [address] [address] [address] Neisha Araiza Calcium [Mass/Vol] 7.5 mg/dL Critically low 8.5-10.1 Th [facility] Comment on above: Performed By: #### C BC #### [facility] [address] [address] [address] Neisha Araiza Chloride [Moles/Vol] 105 mmol/L Normal 98-107 [facility] Comment on above: Performed By: #### C BC #### [facility] [address] [place] [address] Dr. Neisha Araiza CO2 [Moles/Vol] 19.2 mmol/L Critically low 21.0-32.0 [facility] Comment on above: Performed By: #### C BC #### [facility] [address] [address] [address] Neisha Araiza Creatinine [Mass/Vol] 0.59 mg/dL Normal 0.55-1.02 [facility] Comment on above: Performed By: #### C BC #### [facility] [address] [address] [address] Neisha Araiza EGFR-AF SOMALI >60 Normal >=60 The [facility] Comment on above: Performed By: #### C BC #### [facility] [address] [address] [address] Neisha Araiza EGFR-NON AF SOMALI >60 Normal >=60 [facility] Comment on above: Performed By: #### C BC #### [facility] [address] [place] [address] Dr. Neisha Araiza Globulin (S) [Mass/Vol] 2.9 g/dL Normal [facility] Comment on above: Performed By: #### C BC #### [facility] [address] [address] [address] Neisha Araiza Glucose [Mass/Vol] 240 mg/dL Critically high 74-106 T [facility] Comment on above: Performed By: #### C BC #### [facility] [address] [place] [address] Dr. Neisha Araiza Potassium [Moles/Vol] 3.4 mmol/L Critically low 3.5-5.1 [facility] Comment on above: Performed By: #### C BC #### [facility] [address] [place] [address] Dr. Neisha Araiza Protein [Mass/Vol] 5.2 g/dL Critically low 6.4-8.2 Th [facility] Comment on above: Performed By: #### C BC #### [facility] [address] [place] [address] Dr. Neisha Araiza Sodium [Moles/Vol] 136 mmol/L Normal 136-145 [facility] Comment on above: Performed By: #### C BC #### [facility] [address] [place] [address] Dr. Neisha Araiza Urea nitrogen [Mass/Vol] 9.0 mg/dL Normal 7.0-18.0 [facility] Comment on above: Performed By: #### C BC #### [facility] [address] [place] [address] Dr. Neisha Araiza Urea nitrogen/Creatinine [Mass ratio] 15.3 mg/mg Normal [facility] Comment on above: Performed By: #### C BC #### [facility] [address] [place] [address] Dr. Neisha Araiza BLOOD GASES BTYon 01-04-2022 02 MODE ROOM AIR Normal [facility] Comment on above: Performed By: #### C BC #### [facility] [address] [place] [address] Dr. Neisha Araiza ALLENS TEST Positive Normal [facility] Comment on above: Performed By: #### C BC #### [facility] [address] [place] [address] Dr. Neisha Araiza Base excess Calc (Bld) [Moles/Vol] -10.50009 mmol/L Critically low -2.0-2.0 [facility] Comment on above: Performed By: #### C BC #### [facility] [address] [place] [address] Dr. Neisha Araiza BIPAP PRESSURE Normal [facility] Comment on above: Performed By: #### C BC #### [facility] [address] [place] [address] Dr. Neisha Araiza CO2 [Moles/Vol] 29.0 mmol/L Critically high 23.0-28.0 [facility] Comment on above: Performed By: #### C BC #### [facility] [address] [place] [address] Dr. Neisha Araiza CPAP [facility] Comment on above: Performed By: #### C BC #### [facility] [address] [place] [address] Dr. Neisha Araiza FIO2 [facility] Comment on above: Performed By: #### C BC #### [facility] [address] [place] [address] Dr. Neisha Araiza HCO3 (Bld) [Moles/Vol] 17.9 mmol/L Critically low 22.0-26.0 [facility] Comment on above: Performed By: #### C BC #### [facility] [address] [place] [address] Dr. Neisha Araiza LPM [facility] Comment on above: Performed By: #### C BC #### [facility] [address] [place] [address] Dr. Neisha Araiza MINUTE VOLUME Normal [facility] Comment on above: Performed By: #### C BC #### [facility] [address] [place] [address] Dr. Neisha Araiza Oxygen (Bld) [Partial pressure] 95.8 mm[Hg] Normal 80.0-100.0 [facility] Comment on above: Performed By: #### C BC #### [facility] [address] [place] [address] Dr. Neisha Araiza Oxygen saturation in Blood 98.6 % Normal 95.0-100.0 [facility] Comment on above: Performed By: #### C BC #### [facility] [address] [place] [address] Dr. Neisha Araiza PCO2 22.9 mmHg Critically low 35.0-45.0 [facility] Comment on above: Performed By: #### C BC #### [facility] [address] [place] [address] Dr. Neisha Araiza PEEP [facility] Comment on above: Performed By: #### C BC #### [facility] [address] [place] [address] Dr. Neisha Araiza pH (Bld) 7.408 [pH] Normal 7.350-7.450 [facility] Comment on above: Performed By: #### C BC #### [facility] [address] [place] [address] Dr. Neisha Araiza PIP [facility] Comment on above: Performed By: #### C BC #### [facility] [address] [place] [address] Dr. Neisha Araiza PS [facility] Comment on above: Performed By: #### C BC #### [facility] [address] [place] [address] Dr. Neisha Araiza PUNCTURE SITE RR [facility] Comment on above: Performed By: #### C BC #### [facility] [address] [place] [address] Dr. Neisha Araiza RATE [facility] Comment on above: Performed By: #### C BC #### [facility] [address] [place] [address] Dr. Neisha Aariza VENT MODE [facility] Comment on above: Performed By: #### C BC #### [facility] [address] [place] [address] Dr. Neisha Araiza [facility] Comment on above: Performed By: #### C BC #### [facility] [address] [place] [address] Dr. Neisha Araiza CBC AUTO DIFFon 01-04-2022 BASO # 0.0 103/ul Normal 0.0-0.1 [facility] Comment on above: Performed By: #### C BC #### [facility] [address] [address] [address] Neisha Araiza Basophils/100 WBC (Bld) 0.3 % Normal 0.2-2.0 [facility] Comment on above: Performed By: #### C BC #### [facility] [address] [address] [address] Neisha Araiza EO # 0.0 103/ul Normal 0.0-0.7 [facility] Comment on above: Performed By: #### C BC #### [facility] [address] [place] [address] Dr. Neisha Araiza Eosinophils/100 WBC (Bld) 0.0 % Critically low 0.9-7.0 [facility] Comment on above: Performed By: #### C BC #### [facility] [address] [place] [address] Dr. Neisha Araiza Erythrocyte distribution width (RBC) [Ratio] 13.5 % Normal 11.0-15.0 [facility] Comment on above: Performed By: #### C BC #### [facility] [address] [place] [address] Dr. Neisha Araiza Hematocrit (Bld) [Volume fraction] 39.1 % Normal 36.0-48.0 [facility] Comment on above: Performed By: #### C BC #### [facility] [address] [place] [address] Dr. Neisha Araiza Hemoglobin (Bld) [Mass/Vol] 13.3 g/dL Normal 12.0-16.0 [facility] Comment on above: Performed By: #### C BC #### [facility] [address] [place] [address] Dr. Neisha Araiza IG # 0.05 10e3/ul Critically high 0.00-0.03 [facility] Comment on above: Performed By: #### C BC #### [facility] [address] [place] [address] Dr. Neisha Araiza IG % 0.5 % Normal 0.0-0.5 [facility] Comment on above: Performed By: #### C BC #### [facility] [address] [place] [address] Dr. Neisha Araiza LYMPH # 1.4 103/ul Normal 1.2-3.8 [facility] Comment on above: Performed By: #### C BC #### [facility] [address] [place] [address] Dr. Neisha Araiza Lymphocytes/100 WBC (Bld) 14.8 % Critically low 20.5-60.0 [facility] Comment on above: Performed By: #### C BC #### [facility] [address] [place] [address] Dr. Neisha Araiza MANUAL DIFF REQ NO Normal [facility] Comment on above: Performed By: #### C BC #### [facility] [address] [place] [address] Dr. Neisha Araiza MCH (RBC) [Entitic mass] 28.6 pg Normal 26.7-34.0 [facility] Comment on above: Performed By: #### C BC #### [facility] [address] [place] [address] Dr. Neisha Araiza MCHC (RBC) [Mass/Vol] 34.0 g/dL Normal 29.9-35.2 [facility] Comment on above: Performed By: #### C BC #### [facility] [address] [place] [address] Dr. Neisha Araiza MCV (RBC) [Entitic vol] 84.1 fL Normal 81.0-99.0 [facility] Comment on above: Performed By: #### C BC #### [facility] [address] [place] [address] Dr. Neisha Araiza MONO # 0.6 103/ul Normal 0.3-0.8 [facility] Comment on above: Performed By: #### C BC #### [facility] [address] [place] [address] Dr. Neisha Araiza Monocytes/100 WBC (Bld) 5.8 % Normal 1.7-12.0 [facility] Comment on above: Performed By: #### C BC #### [facility] [address] [place] [address] Dr. Neisha Araiza NEUT # 7.6 103/ul Critically high 1.4-6.5 [facility] Comment on above: Performed By: #### C BC #### [facility] [address] [place] [address] Dr. Neisha Araiza Neutrophils/100 WBC (Bld) 78.6 % Critically high 43.0-75.0 [facility] Comment on above: Performed By: #### C BC #### [facility] [address] [place] [address] Dr. Neisha Araiza Platelet mean volume (Bld) [Entitic vol] 9.9 fL Normal 9.5-13.5 [facility] Comment on above: Performed By: #### C BC #### [facility] [address] [place] [address] Dr. Neisha Araiza PLT 280 103/ul Normal 150-450 [facility] Comment on above: Performed By: #### C BC #### [facility] [address] [place] [address] Dr. Neisha Araiza RBC 4.65 106/ul Normal 4.20-5.40 [facility] Comment on above: Performed By: #### C BC #### [facility] [address] [place] [address] Dr. Neisha Araiza WBC 9.7 103/ul Normal 4.0-11.0 [facility] Comment on above: Performed By: #### C BC #### [facility] [address] [place] [address] Dr. Neisha Araiza Covid-19 PCR ([facility])on SARS-CoV-2 (COVID-19) RNA TIM+probe Ql (Unsp spec) Not detected Normal NOT DETECTED [facility] Comment on above: Result Comment: [...] for this test is supported by the [employer] and Human Service's declaration that [...] used). Performed By: #### C BC #### [facility] [address] [place] [address] Dr. Neisha Araiza POINT OF CARE GLUCOSEon 0 Glucose [Mass/Vol] 215 mg/dL Critically high [address] [place] [address] Comment on above: Performed By: #### L BASIA DRIVER CMP #### [facility] [address] [place] [address] Dr. Neisha Araiza Glucose [Mass/Vol] 187 mg/dL Critically high [address] [place] [address] Comment on above: Performed By: #### C BC #### [facility] [address] [place] [address] Dr. Neisha Araiza Glucose [Mass/Vol] 240 mg/dL Critically high [address] [place] [address] Comment on above: Performed By: #### C BC #### [facility] [address] [place] [address] Dr. Neisha Araiza Glucose [Mass/Vol] 251 mg/dL Critically high [address] [place] [address] Comment on above: Performed By: #### C BC #### [facility] [address] [place] [address] Dr. Neisha Araiza Glucose [Mass/Vol] 264 mg/dL Critically high [address] [place] [address] Comment on above: Performed By: #### L BASIA DRIVER, CMP #### [facility] [address] [place] [address] Dr. Neisha Araiza PROF 14(COMP METB)on 022 Albumin [Mass/Vol] 2.9 g/dL Critically low 3.4-5.0 [facility] Comment on above: Performed By: #### L IPA BASIA, CMP #### [facility] [address] [address] [address] Neisha Araiza Albumin/Globulin [Mass ratio] 0.9 {ratio} Normal [facility] Comment on above: Performed By: #### L IPA BASIA, CMP #### [facility] [address] [address] [address] Neisha Araiza ALP [Catalytic activity/Vol] 92 U/L Normal 46-116 [facility] Comment on above: Performed By: #### L NEISHA BASIA, CMP #### [facility] [address] [address] [address] Neisha Araiza ALT [Catalytic activity/Vol] 28 U/L Normal 14-59 [facility] Comment on above: Performed By: #### L NEISHA BASIA, CMP #### [facility] [address] [address] [address] Neisha Araiza Anion gap [Moles/Vol] 19.9 mmol/L Normal [facility] Comment on above: Performed By: #### L NEISHA BASIA, CMP #### [facility] [address] [address] [address] Neisha Araiza AST [Catalytic activity/Vol] 14 U/L Critically low 15-37 [facility] Comment on above: Performed By: #### L IPA BSAIA, CMP #### [facility] [address] [address] [address] Neisha Araiza Calcium [Mass/Vol] 7.8 mg/dL Critically low 8.5-10.1 [facility] Comment on above: Performed By: #### L IPA, BASIA, CMP #### [facility] [address] [address] [address] Neisha Araiza Chloride [Moles/Vol] 102 mmol/L Normal 98-107 [facility] Comment on above: Performed By: #### L IPA, BASIA, CMP #### [facility] [address] [address] [address] Neisha Araiza CO2 [Moles/Vol] 17.7 mmol/L Critically low 21.0-32.0 [facility] Comment on above: Performed By: #### L NEISHA BASIA, CMP #### [facility] [address] [address] [address] Neisha Araiza Creatinine [Mass/Vol] 0.60 mg/dL Normal 0.55-1.02 [facility] Comment on above: Performed By: #### L NEISHA BASIA, CMP #### [facility] [address] [address] [address] Neisha Araiza EGFR-AF SOMALI >60 Normal >=60 [facility] Comment on above: Performed By: #### L NEISHA BASIA, CMP #### [facility] [address] [address] [address] Neisha Araiza EGFR-NON AF SOMALI >60 Normal >=60 [facility] Comment on above: Performed By: #### L BASIA DRIVER, CMP #### [facility] [address] [address] [address] Neisha Araiza Globulin (S) [Mass/Vol] 3.4 g/dL Normal [facility] Comment on above: Performed By: #### L BASIA DRIVER, CMP #### [facility] [address] [address] [address] Neisha Araiza Glucose [Mass/Vol] 272 mg/dL Critically high 74-106 T [facility] Comment on above: Performed By: #### L NEISHA BASIA, CMP #### [facility] [address] [address] [address] Neisha Araiza Potassium [Moles/Vol] 3.6 mmol/L Normal 3.5-5.1 [facility] Comment on above: Performed By: #### L NEISHA BASIA, CMP #### [facility] [address] [address] [address] Neisha Araiza Protein [Mass/Vol] 6.3 g/dL Critically low 6.4-8.2 [facility] Comment on above: Performed By: #### L IPA, BASIA, CMP #### [facility] [address] [address] [address] Neisha Araiza Sodium [Moles/Vol] 136 mmol/L Normal 136-145 [facility] Comment on above: Performed By: #### L IPA, BASIA, CMP #### [facility] [address] [address] [address] Neisha Araiza Urea nitrogen [Mass/Vol] 9.0 mg/dL Normal 7.0-18.0 [facility] Comment on above: Performed By: #### L IPA, BASIA, CMP #### [facility] [address] [address] [address] Neisha Araiza Urea nitrogen/Creatinine [Mass ratio] 15.0 mg/mg Normal [facility] Comment on above: Performed By: #### L IPA, BASIA, CMP #### [facility] [address] [place] [address] Dr. Neisha Araiza XR ABD FLAT_UPon 01-04-2022 [...] MARIAELENA BROWN Date: 2022-01-04 01:26 Normal [facility] ACETONE SERUMon 01-03-2022 ACETONE Negative Normal NEGATIVE [facility] Comment on above: Performed By: #### A CETON #### [facility] [address] [place] [address] Dr. Neisha Araiza ACETONE SMALL Abnormal NEGATIVE [facility] Comment on above: Performed By: #### C BC #### [facility] [address] [address] [address] Neisha Araiza AMYLASEon 01-03-2022 Amylase [Catalytic activity/Vol] 15 U/L Critically low 25-115 [facility] Comment on above: Performed By: #### L IPA, BASIA, CMP #### [facility] [address] [place] [address] Dr. Neisha Araiza CARDIAC BRI ADMITon 022 CK [Catalytic activity/Vol] 44 U/L Normal 26-192 [facility] Comment on above: Performed By: #### L IPA, BASIA, CMP #### [facility] [address] [place] [address] Dr. Neisha Araiza CK.MB [Mass/Vol] 0.93 ng/mL Normal <=3.60 The [facility] Comment on above: Performed By: #### L IPA, BASIA, CMP #### [facility] [address] [place] [address] Dr. Neisha Araiza HSTROP 4.1 pg/mL Normal 4.0-51.3 [facility] Comment on above: Result Comment: CUT- OFF POINTS HAVE BEEN ESTABLISHED BASED ON THE FOURTH UNIVERSAL DEFINITIONS OF MYOCARDIAL INFARCTION. THE UPPER REFERENCE LIMIT (URL) OF TROPONIN, DEFINED THE 99TH PERCENTILE OF cTnI DISTRIBUTION IN A REFERENCE POPULATION, HAS BEEN CONFIRMED THE DECISION THRESHOLD FOR PR DIAGNOSIS. Performed By: #### L IPA, BASIA, CMP #### [facility] [address] [place] [address] Dr. Neisha Araiza ROCIO 20 ng/mL Normal 9-82 [facility] [facility] Comment on above: Performed By: #### L IPA, BASIA, CMP #### [facility] [address] [place] [address] Dr. Neisha Araiza CBC AUTO DIFFon 01-03-2022 Basophils/100 WBC (Bld) 0.3 % Normal 0.2-2.0 [facility] Comment on above: Performed By: #### C BC #### [facility] [address] [place] [address] Dr. Neisha Araiza Hematocrit (Bld) [Volume fraction] 42.7 % Normal 36.0-48.0 [facility] Comment on above: Performed By: #### C BC #### [facility] [address] [place] [address] Dr. Neisha Araiza Hemoglobin (Bld) [Mass/Vol] 14.3 g/dL Normal 12.0-16.0 [facility] Comment on above: Performed By: #### C BC #### [facility] [address] [place] [address] Dr. Neisha Araiza IG # 0.03 10e3/ul Normal 0.00-0.03 [facility] Comment on above: Performed By: #### C BC #### [facility] [address] [place] [address] Dr. Neisha Araiza IG % 0.3 % Normal 0.0-0.5 [facility] Comment on above: Performed By: #### C BC #### [facility] [address] [place] [address] Dr. Neisha Araiza LYMPH # 1.1 103/ul Critically low 1.2-3.8 [facility] Comment on above: Performed By: #### C BC #### [facility] [address] [place] [address] Dr. Neisha Araiza Lymphocytes/100 WBC (Bld) 12.9 % Critically low 20.5-60.0 [facility] Comment on above: Performed By: #### C BC #### [facility] [address] [place] [address] Dr. Neisha Araiza MCHC (RBC) [Mass/Vol] 33.5 g/dL Normal 29.9-35.2 [facility] Comment on above: Performed By: #### C BC #### [facility] [address] [place] [address] Dr. Neisha Araiza MCV (RBC) [Entitic vol] 85.2 fL Normal 81.0-99.0 [facility] Comment on above: Performed By: #### C BC #### [facility] [address] [place] [address] Dr. Neisha Araiza MONO # 0.3 103/ul Normal 0.3-0.8 [facility] Comment on above: Performed By: #### C BC #### [facility] [address] [place] [address] Dr. Neisha Araiza Monocytes/100 WBC (Bld) 3.3 % Normal 1.7-12.0 [facility] Comment on above: Performed By: #### C BC #### [facility] [address] [place] [address] Dr. Neisha Araiza NEUT # 7.3 103/ul Critically high 1.4-6.5 [facility] Comment on above: Performed By: #### C BC #### [facility] [address] [place] [address] Dr. Neisha Araiza Neutrophils/100 WBC (Bld) 83.2 % Critically high 43.0-75.0 [facility] Comment on above: Performed By: #### C BC #### [facility] [address] [place] [address] Dr. Neisha Araiza PLT 281 103/ul Normal 150-450 [facility] Comment on above: Performed By: #### C BC #### [facility] [address] [place] [address] Dr. Neisha Araiza RBC 5.01 106/ul Normal 4.20-5.40 [facility] Comment on above: Performed By: #### C BC #### [facility] [address] [place] [address] Dr. Neisha Araiza WBC 8.8 103/ul Normal 4.0-11.0 [facility] Comment on above: Performed By: #### C BC #### [facility] [address] [place] [address] Dr. Neisha Araiza BASO # 0.0 103/ul Normal 0.0-0.1 [facility] Comment on above: Performed By: #### C BC #### [facility] [address] [place] [address] Dr. Neisha Araiza Performed By: #### A CETON #### [facility] [address] [place] [address] Dr. Neisha Araiza Basophils/100 WBC (Bld) 0.5 % Normal 0.2-2.0 [facility] Comment on above: Performed By: #### A CETON #### [facility] [address] [place] [address] Dr. Neisha Araiza EO # 0.0 103/ul Normal 0.0-0.7 [facility] Comment on above: Performed By: #### C BC #### [facility] [address] [place] [address] Dr. Neisha Araiza Performed By: #### A CETON #### [facility] [address] [place] [address] Dr. Neisha Araiza Eosinophils/100 WBC (Bld) 0.0 % Critically low 0.9-7.0 [facility] Comment on above: Performed By: #### C BC #### [facility] [address] [place] [address] Dr. Neisha Araiza Performed By: #### A CETON #### [facility] [address] [place] [address] Dr. Neisha Araiza Erythrocyte distribution width (RBC) [Ratio] 13.2 % Normal 11.0-15.0 [facility] Comment on above: Performed By: #### C BC #### [facility] [address] [place] [address] Dr. Neisha Araiza Performed By: #### A CETON #### [facility] [address] [place] [address] Dr. Neisha Araiza Hematocrit (Bld) [Volume fraction] 45.8 % Normal 36.0-48.0 [facility] Comment on above: Performed By: #### A CETON #### [facility] [address] [place] [address] Dr. Neisha Araiza Hemoglobin (Bld) [Mass/Vol] 15.6 g/dL Normal 12.0-16.0 [facility] Comment on above: Performed By: #### A CETON #### [facility] [address] [place] [address] Dr. Neisha Araiza IG # 0.05 10e3/ul Critically high 0.00-0.03 [facility] Comment on above: Performed By: #### A CETON #### [facility] [address] [place] [address] Dr. Neisha Araiza IG % 0.6 % Critically high 0.0-0.5 [facility] Comment on above: Performed By: #### A CETON #### [facility] [address] [place] [address] Dr. Neisha Araiza LYMPH # 0.7 103/ul Critically low 1.2-3.8 [facility] Comment on above: Performed By: #### A CETON #### [facility] [address] [place] [address] Dr. Neisha Araiza Lymphocytes/100 WBC (Bld) 8.3 % Critically low 20.5-60.0 [facility] Comment on above: Performed By: #### A CETON #### [facility] [address] [place] [address] Dr. Neisha Araiza MANUAL DIFF REQ NO Normal [facility] Comment on above: Performed By: #### C BC #### [facility] [address] [place] [address] Dr. Neisha Araiza Performed By: #### A CETON #### [facility] [address] [place] [address] Dr. Neisha Araiza MCH (RBC) [Entitic mass] 28.5 pg Normal 26.7-34.0 [facility] Comment on above: Performed By: #### C BC #### [facility] [address] [place] [address] Dr. Neisha Araiza Performed By: #### A CETON #### [facility] [address] [place] [address] Dr. Neisha Araiza MCHC (RBC) [Mass/Vol] 34.1 g/dL Normal 29.9-35.2 [facility] Comment on above: Performed By: #### A CETON #### [facility] [address] [place] [address] Dr. Neisha Araiza MCV (RBC) [Entitic vol] 83.7 fL Normal 81.0-99.0 [facility] Comment on above: Performed By: #### A CETON #### [facility] [address] [place] [address] Dr. Neisha Araiza MONO # 0.2 103/ul Critically low 0.3-0.8 [facility] Comment on above: Performed By: #### A CETON #### [facility] [address] [place] [address] Dr. Neisha Araiza Monocytes/100 WBC (Bld) 2.7 % Normal 1.7-12.0 [facility] Comment on above: Performed By: #### A CETON #### [facility] [address] [place] [address] Dr. Neisha Araiza NEUT # 6.9 103/ul Critically high 1.4-6.5 [facility] Comment on above: Performed By: #### A CETON #### [facility] [address] [place] [address] Dr. Neisha Araiza Neutrophils/100 WBC (Bld) 87.9 % Critically high 43.0-75.0 [facility] Comment on above: Performed By: #### A CETON #### [facility] [address] [place] [address] Dr. Neisha Araiza Platelet mean volume (Bld) [Entitic vol] 9.9 fL Normal 9.5-13.5 [facility] Comment on above: Performed By: #### C BC #### [facility] [address] [place] [address] Dr. Neisha Araiza Performed By: #### A CETON #### [facility] [address] [place] [address] Dr. Neisha Araiza PLT 260 103/ul Normal 150-450 [facility] Comment on above: Performed By: #### A CETON #### [facility] [address] [place] [address] Dr. Neisha Araiza RBC 5.47 106/ul Critically high 4.20-5.40 The [facility] Comment on above: Performed By: #### A CETON #### [facility] [address] [place] [address] Dr. Neisha Araiza WBC 7.8 103/ul Normal 4.0-11.0 [facility] Comment on above: Performed By: #### A CETON #### [facility] [address] [place] [address] Dr. Neisha Araiza LIPASEon 01-03-2022 Lipase [Catalytic activity/Vol] 72.0 U/L Critically low 73.0-393.0 [facility] Comment on above: Performed By: #### L BASIA DRIVER, CMP #### [facility] [address] [place] [address] Dr. Neisha Araiza PH VENOUS BLOODon 01-03-2022 PCO2 VENOUS 34.2 mmHg Critically low 40.0-52.0 [facility] Comment on above: Performed By: #### L BASIA DRIVER CMP #### [facility] [address] [place] [address] Dr. Neisha Araiza pH VENOUS 7.370 Normal 7.330-7.430 [facility] Comment on above: Performed By: #### L BASIA DRIVER, CMP #### [facility] [address] [place] [address] Dr. Neisha Araiza POINT OF CARE GLUCOSEon Glucose [Mass/Vol] 283 mg/dL Critically high 74-106 [facility] Comment on above: Performed By: #### L BASIA DRIVER CMP #### [facility] [address] [place] [address] Dr. Neisha Araiza Glucose [Mass/Vol] 297 mg/dL Critically high 74-106 [facility] Comment on above: Performed By: #### A CETON #### [facility] [address] [place] [address] Dr. Neisha Araiza PROF 14(COMP METB)on 022 Albumin [Mass/Vol] 3.6 g/dL Normal 3.4-5.0 [facility] Comment on above: Performed By: #### L BASIA DRIVER, CMP #### [facility] [address] [place] [address] Dr. Neisha Araiza Albumin/Globulin [Mass ratio] 0.8 {ratio} Normal [facility] Comment on above: Performed By: #### L BASIA DRIVER, CMP #### [facility] [address] [address] [address] Neisha Araiza ALP [Catalytic activity/Vol] 131 U/L Critically high 46-116 [facility] Comment on above: Performed By: #### L BASIA DRIVER, CMP #### [facility] [address] [address] [address] Neisha Araiza ALT [Catalytic activity/Vol] 39 U/L Normal 14-59 [facility] Comment on above: Performed By: #### L BASIA DRIVER, CMP #### [facility] [address] [address] [address] Neisha Araiza Anion gap [Moles/Vol] 20.7 mmol/L Normal Th [facility] Comment on above: Performed By: #### L BASIA DRIVER, CMP #### [facility] [address] [address] [address] Neisha Araiza AST [Catalytic activity/Vol] 19 U/L Normal 15-37 [facility] Comment on above: Performed By: #### L BASIA DRIVER, CMP #### [facility] [address] [address] [address] Neisha Araiza Calcium [Mass/Vol] 8.9 mg/dL Normal 8.5-10.1 [facility] Comment on above: Performed By: #### L BASIA DRIVER, CMP #### [facility] [address] [address] [address] Neisha Araiza Chloride [Moles/Vol] 97 mmol/L Critically low 98-107 [facility] Comment on above: Performed By: #### L BASIA DRIVER, CMP #### [facility] [address] [address] [address] Neisha Araiza CO2 [Moles/Vol] 19.2 mmol/L Critically low 21.0-32.0 [facility] Comment on above: Performed By: #### L BASIA DRIVER, CMP #### [facility] [address] [address] [address] Neisha Araiza Creatinine [Mass/Vol] 0.60 mg/dL Normal 0.55-1.02 [facility] Comment on above: Performed By: #### L BASIA DRIVER, CMP #### [facility] [address] [address] [address] Neisha Araiza Globulin (S) [Mass/Vol] 4.3 g/dL Normal [facility] Comment on above: Performed By: #### L IPA BASIA, CMP #### [facility] [address] [place] [address] Dr. Neisha Araiza Glucose [Mass/Vol] 368 mg/dL Critically high 74-106 [facility] Comment on above: Performed By: #### L IPA BASIA, CMP #### [facility] [address] [place] [address] Dr. Neisha Araiza Protein [Mass/Vol] 7.9 g/dL Normal 6.4-8.2 [facility] Comment on above: Performed By: #### L NEISHA BASIA, CMP #### [facility] [address] [place] [address] Dr. Neisha Araiza Sodium [Moles/Vol] 133 mmol/L Critically low 136-145 [facility] Comment on above: Performed By: #### L BASIA DRIVER, CMP #### [facility] [address] [place] [address] Dr. Neisha Araiza Urea nitrogen [Mass/Vol] 13.0 mg/dL Normal 7.0-18.0 [facility] Comment on above: Performed By: #### L BASIA DRIVER, CMP #### [facility] [address] [place] [address] Dr. Neisha Araiza Urea nitrogen/Creatinine [Mass ratio] 21.7 mg/mg Normal [facility] Comment on above: Performed By: #### L BASIA DRIVER, CMP #### [facility] [address] [place] [address] Dr. Neisha Araiza PROF CHEM 8 (BAS METB)on Anion gap [Moles/Vol] 20.2 mmol/L Normal [facility] Comment on above: Performed By: #### L NEISHA BASIA, CMP #### [facility] [address] [place] [address] Dr. Neisha Araiza Calcium [Mass/Vol] 8.0 mg/dL Critically low 8.5-10.1 [facility] Comment on above: Performed By: #### L BASIA DRIVER, CMP #### [facility] [address] [address] [address] Neisha Araiza Chloride [Moles/Vol] 102 mmol/L Normal 98-107 [facility] Comment on above: Performed By: #### L BASIA DRIVER, CMP #### [facility] [address] [address] [address] Neisha Araiza CO2 [Moles/Vol] 16.7 mmol/L Critically low 21.0-32.0 [facility] Comment on above: Performed By: #### L BASIA DRIVER, CMP #### [facility] [address] [place] [address] Dr. Neisha Araiza Creatinine [Mass/Vol] 0.62 mg/dL Normal 0.55-1.02 [facility] Comment on above: Performed By: #### L BASIA DRIVER, CMP #### [facility] [address] [place] [address] Dr. Neisha Araiza Glucose [Mass/Vol] 287 mg/dL Critically high 74-106 [facility] Comment on above: Performed By: #### L BASIA DRIVER, CMP #### [facility] [address] [place] [address] Dr. Neisha Araiza Sodium [Moles/Vol] 135 mmol/L Critically low 136-145 [facility] Comment on above: Performed By: #### L BASIA DRIVER, CMP #### [facility] [address] [place] [address] Dr. Neisha Araiza Urea nitrogen [Mass/Vol] 11.0 mg/dL Normal 7.0-18.0 [facility] Comment on above: Performed By: #### L BASIA DRIVER, CMP #### [facility] [address] [place] [address] Dr. Neisha Araiza Urea nitrogen/Creatinine [Mass ratio] 17.7 mg/mg Normal [facility] Comment on above: Performed By: #### L BASIA DRIVER, CMP #### [facility] [address] [place] [address] Dr. Neisha Araiza EGFR-AF SOMALI >60 Normal >=60 The [facility] Comment on above: Performed By: #### L BASIA DRIVER, CMP #### [facility] [address] [place] [address] Dr. Neisha Ariaza EGFR-NON AF SOMALI >60 Normal >=60 [facility] Comment on above: Performed By: #### L BASIA DRIVER, CMP #### [facility] [address] [place] [address] Dr. Neisha Araiza Potassium [Moles/Vol] 3.9 mmol/L Normal 3.5-5.1 [facility] Comment on above: Performed By: #### L BASIA DRIVER, CMP #### [facility] [address] [place] [address] Dr. Neisha Araiza CBC AUTO DIFFon 12-12-2021 BASO # 0.1 103/ul Normal 0.0-0.1 [facility] Comment on above: Performed By: #### C BC #### [facility] [address] [place] [address] Dr. Neisha Araiza Basophils/100 WBC (Bld) 0.6 % Normal 0.2-2.0 [facility] Comment on above: Performed By: #### C BC #### [facility] [address] [place] [address] Dr. Neisha Araiza EO # 0.0 103/ul Normal 0.0-0.7 [facility] Comment on above: Performed By: #### C BC #### [facility] [address] [place] [address] Dr. Neisha Araiza Eosinophils/100 WBC (Bld) 0.5 % Critically low 0.9-7.0 [facility] Comment on above: Performed By: #### C BC #### [facility] [address] [place] [address] Dr. Neisha Araiza Erythrocyte distribution width (RBC) [Ratio] 12.6 % Normal 11.0-15.0 [facility] Comment on above: Performed By: #### C BC #### [facility] [address] [place] [address] Dr. Neisha Araiza Hematocrit (Bld) [Volume fraction] 40.7 % Normal 36.0-48.0 [facility] Comment on above: Performed By: #### C BC #### [facility] [address] [place] [address] Dr. Neisha Araiza Hemoglobin (Bld) [Mass/Vol] 14.4 g/dL Normal 12.0-16.0 [facility] Comment on above: Performed By: #### C BC #### [facility] [address] [place] [address] Dr. Neisha Araiza IG # 0.05 10e3/ul Critically high 0.00-0.03 [facility] Comment on above: Performed By: #### C BC #### [facility] [address] [place] [address] Dr. Neisha Araiza IG % 0.6 % Critically high 0.0-0.5 [facility] Comment on above: Performed By: #### C BC #### [facility] [address] [place] [address] Dr. Neisha Araiza LYMPH # 2.3 103/ul Normal 1.2-3.8 [facility] Comment on above: Performed By: #### C BC #### [facility] [address] [place] [address] Dr. Neisha Araiza Lymphocytes/100 WBC (Bld) 26.2 % Normal 20.5-60.0 [facility] Comment on above: Performed By: #### C BC #### [facility] [address] [place] [address] Dr. Neisha Araiza MANUAL DIFF REQ NO Normal [facility] Comment on above: Performed By: #### C BC #### [facility] [address] [place] [address] Dr. Neisha Araiza MCH (RBC) [Entitic mass] 28.4 pg Normal 26.7-34.0 [facility] Comment on above: Performed By: #### C BC #### [facility] [address] [address] [address] Neisha Araiza MCHC (RBC) [Mass/Vol] 35.4 g/dL Critically high 29.9-35.2 [facility] Comment on above: Performed By: #### C BC #### [facility] [address] [place] [address] Dr. Neisha Araiza MCV (RBC) [Entitic vol] 80.3 fL Critically low 81.0-99.0 [facility] Comment on above: Performed By: #### C BC #### [facility] [address] [place] [address] Dr. Neisha Araiza MONO # 0.5 103/ul Normal 0.3-0.8 [facility] Comment on above: Performed By: #### C BC #### [facility] [address] [place] [address] Dr. Neisha Araiza Monocytes/100 WBC (Bld) 5.5 % Normal 1.7-12.0 [facility] Comment on above: Performed By: #### C BC #### [facility] [address] [place] [address] Dr. Neisha Araiza NEUT # 5.7 103/ul Normal 1.4-6.5 [facility] Comment on above: Performed By: #### C BC #### [facility] [address] [place] [address] Dr. Neisha Araiza Neutrophils/100 WBC (Bld) 66.6 % Normal 43.0-75.0 [facility] Comment on above: Performed By: #### C BC #### [facility] [address] [place] [address] Dr. Neisha Araiza Platelet mean volume (Bld) [Entitic vol] 9.5 fL Normal 9.5-13.5 [facility] Comment on above: Performed By: #### C BC #### [facility] [address] [place] [address] Dr. Neisha Araiza PLT 266 103/ul Normal 150-450 [facility] Comment on above: Performed By: #### C BC #### [facility] [address] [place], [place] [id number] Dr. Neisha Araiza RBC 5.07 106/ul Normal 4.20-5.40 [facility] Comment on above: Performed By: #### C BC #### [facility] [address] [place] [address] Dr. Neisha Araiza WBC 8.6 103/ul Normal 4.0-11.0 [facility] Comment on above: Performed By: #### C BC #### [facility] [address] [place] [address] Dr. Neisha Araiza POINT OF CARE GLUCOSEon 11-30 Glucose [Mass/Vol] 157 mg/dL Critically high 74-106 [facility] Comment on above: Performed By: #### C BC #### [facility] [address] [place] [address] Dr. Neisha Araiza Glucose [Mass/Vol] 223 mg/dL Critically high 74-106 [facility] Comment on above: Performed By: #### L BASIA DRIVER, CMP #### [facility] [address] [place] [address] Dr. Neisha Araiza PROF 14(COMP METB)on 022 Albumin [Mass/Vol] 3.1 g/dL Critically low 3.4-5.0 [facility] Comment on above: Performed By: #### C BC #### [facility] [address] [place] [address] Dr. Neisha Araiza Albumin/Globulin [Mass ratio] 0.9 {ratio} Normal [facility] Comment on above: Performed By: #### C BC #### [facility] [address] [place] [address] Dr. Neisha Araiza ALP [Catalytic activity/Vol] 96 U/L Normal 46-116 [facility] Comment on above: Performed By: #### C BC #### [facility] [address] [place] [address] Dr. Neisha Ariaza ALT [Catalytic activity/Vol] 28 U/L Normal 14-59 [facility] Comment on above: Performed By: #### C BC #### [facility] [address] [address] [address] Neisha Araiza Anion gap [Moles/Vol] 17.9 mmol/L Normal [facility] Comment on above: Performed By: #### C BC #### [facility] [address] [place] [address] Dr. Neisha Araiza AST [Catalytic activity/Vol] 19 U/L Normal 15-37 [facility] Comment on above: Performed By: #### C BC #### [facility] [address] [place] [address] Dr. Neisha Araiza Bilirubin [Mass/Vol] 1.0 mg/dL Normal 0.2-1.0 [facility] Comment on above: Performed By: #### C BC #### [facility] [address] [place] [address] Dr. Neisha Araiza Calcium [Mass/Vol] 8.1 mg/dL Critically low 8.5-10.1 [facility] Comment on above: Performed By: #### C BC #### [facility] [address] [place] [address] Dr. Neisha Araiza Chloride [Moles/Vol] 95 mmol/L Critically low 98-107 [facility] Comment on above: Performed By: #### C BC #### [facility] [address] [place] [address] Dr. Neisha Araiza CO2 [Moles/Vol] 19.2 mmol/L Critically low 21.0-32.0 [facility] Comment on above: Performed By: #### C BC #### [facility] [address] [place] [address] Dr. Neisha Araiza Creatinine [Mass/Vol] 0.51 mg/dL Critically low 0.55-1.02 [facility] Comment on above: Performed By: #### C BC #### [facility] [address] [place] [address] Dr. Neisha Araiza EGFR-AF SOMALI >60 Normal >=60 [facility] Comment on above: Performed By: #### C BC #### [facility] [address] [place] [address] Dr. Neisha Araiza EGFR-NON AF SOMALI >60 Normal >=60 [facility] Comment on above: Performed By: #### C BC #### [facility] [address] [place] [address] Dr. Neisha Araiza Globulin (S) [Mass/Vol] 3.6 g/dL Normal [facility] Comment on above: Performed By: #### C BC #### [facility] [address] [address] [address] Neisha Araiza Glucose [Mass/Vol] 230 mg/dL Critically high 74-106 T [facility] Comment on above: Performed By: #### C BC #### [facility] [address] [place] [address] Dr. Neisha Araiza Potassium [Moles/Vol] 3.1 mmol/L Critically low 3.5-5.1 [facility] Comment on above: Performed By: #### C BC #### [facility] [address] [place] [address] Dr. Neisha Araiza Protein [Mass/Vol] 6.7 g/dL Normal 6.4-8.2 [facility] Comment on above: Performed By: #### C BC #### [facility] [address] [place] [address] Dr. Neisha Araiza Sodium [Moles/Vol] 129 mmol/L Critically low 136-145 Th [facility] Comment on above: Performed By: #### C BC #### [facility] [address] [place] [address] Dr. Neisha Araiza Urea nitrogen [Mass/Vol] 5.0 mg/dL Critically low 7.0-18.0 [facility] Comment on above: Performed By: #### C BC #### [facility] [address] [place] [address] Dr. Neisha Araiza Urea nitrogen/Creatinine [Mass ratio] 9.8 mg/mg Normal [facility] Comment on above: Performed By: #### C BC #### [facility] [address] [place] [address] Dr. Neisha Araiza CBC AUTO DIFFon 12-11-2021 BASO # 0.0 103/ul Normal 0.0-0.1 [facility] Comment on above: Performed By: #### C BC #### [facility] [address] [place] [address] Dr. Neisha Araiza Basophils/100 WBC (Bld) 0.5 % Normal 0.2-2.0 [facility] Comment on above: Performed By: #### C BC #### [facility] [address] [place] [address] Dr. Neisha Araiza EO # 0.0 103/ul Normal 0.0-0.7 [facility] Comment on above: Performed By: #### C BC #### [facility] [address] [place] [address] Dr. Neisha Araiza Eosinophils/100 WBC (Bld) 0.2 % Critically low 0.9-7.0 [facility] Comment on above: Performed By: #### C BC #### [facility] [address] [place] [address] Dr. Neisha Araiza Erythrocyte distribution width (RBC) [Ratio] 12.4 % Normal 11.0-15.0 [facility] Comment on above: Performed By: #### C BC #### [facility] [address] [place] [address] Dr. Neisha Araiza Hematocrit (Bld) [Volume fraction] 39.3 % Normal 36.0-48.0 [facility] Comment on above: Performed By: #### C BC #### [facility] [address] [place] [address] Dr. Neisha Araiza Hemoglobin (Bld) [Mass/Vol] 13.5 g/dL Normal 12.0-16.0 [facility] Comment on above: Performed By: #### C BC #### [facility] [address] [place] [address] Dr. Neisha Araiza IG # 0.04 10e3/ul Critically high 0.00-0.03 [facility] Comment on above: Performed By: #### C BC #### [facility] [address] [place] [address] Dr. Neisha Araiza IG % 0.5 % Normal 0.0-0.5 [facility] Comment on above: Performed By: #### C BC #### [facility] [address] [place] [address] Dr. Neisha Araiza LYMPH # 1.8 103/ul Normal 1.2-3.8 [facility] Comment on above: Performed By: #### C BC #### [facility] [address] [place] [address] Dr. Neisha Araiza Lymphocytes/100 WBC (Bld) 21.7 % Normal 20.5-60.0 [facility] Comment on above: Performed By: #### C BC #### [facility] [address] [place] [address] Dr. Neisha Araiza MANUAL DIFF REQ NO Normal [facility] Comment on above: Performed By: #### C BC #### [facility] [address] [place] [address] Dr. Neisha Araiza MCH (RBC) [Entitic mass] 28.2 pg Normal 26.7-34.0 [facility] Comment on above: Performed By: #### C BC #### [facility] [address] [place] [address] Dr. Neisha Araiza MCHC (RBC) [Mass/Vol] 34.4 g/dL Normal 29.9-35.2 [facility] Comment on above: Performed By: #### C BC #### [facility] [address] [place] [address] Dr. Neisha Araiza MCV (RBC) [Entitic vol] 82.2 fL Normal 81.0-99.0 [facility] Comment on above: Performed By: #### C BC #### [facility] [address] [place] [address] Dr. Neisha Araiza MONO # 0.5 103/ul Normal 0.3-0.8 [facility] Comment on above: Performed By: #### C BC #### [facility] [address] [place] [address] Dr. Neisha Araiza Monocytes/100 WBC (Bld) 6.4 % Normal 1.7-12.0 [facility] Comment on above: Performed By: #### C BC #### [facility] [address] [address] [address] Neisha Araiza NEUT # 5.7 103/ul Normal 1.4-6.5 [facility] Comment on above: Performed By: #### C BC #### [facility] [address] [place] [address] Dr. Neisha Araiza Neutrophils/100 WBC (Bld) 70.7 % Normal 43.0-75.0 [facility] Comment on above: Performed By: #### C BC #### [facility] [address] [place] [address] Dr. Neisha Araiza Platelet mean volume (Bld) [Entitic vol] 9.4 fL Critically low 9.5-13.5 [facility] Comment on above: Performed By: #### C BC #### [facility] [address] [place] [address] Dr. Neisha Araiza PLT 250 103/ul Normal 150-450 [facility] Comment on above: Performed By: #### C BC #### [facility] [address] [place] [address] Dr. Neisha Araiza RBC 4.78 106/ul Normal 4.20-5.40 [facility] Comment on above: Performed By: #### C BC #### [facility] [address] [place] [address] Dr. Neisha Araiza WBC 8.1 103/ul Normal 4.0-11.0 [facility] Comment on above: Performed By: #### C BC #### [facility] [address] [place] [address] Dr. Neisha Araiza POINT OF CARE GLUCOSEon 11-30 Glucose [Mass/Vol] 232 mg/dL Critically high 74-106 [facility] Comment on above: Performed By: #### L BASIA DRIVER, CMP #### [facility] [address] [place] [address] Dr. Neisha Araiza Glucose [Mass/Vol] 197 mg/dL Critically high 74-106 [facility] Comment on above: Performed By: #### L IPA, BASIA, CMP #### [facility] [address] [place] [address] Dr. Neisha Araiza Glucose [Mass/Vol] 289 mg/dL Critically high 74-106 [facility] Comment on above: Performed By: #### C BC #### [facility] [address] [place] [address] Dr. Neisha Araiza Glucose [Mass/Vol] 200 mg/dL Critically high 74-106 [facility] Comment on above: Performed By: #### A CETON #### [facility] [address] [place] [address] Dr. Neisha Araiza PROF 14(COMP METB)on 022 Albumin [Mass/Vol] 2.9 g/dL Critically low 3.4-5.0 [facility] Comment on above: Performed By: #### L IPA BASIA, CMP #### [facility] [address] [place] [address] Dr. Neisha Araiza Albumin/Globulin [Mass ratio] 0.8 {ratio} Normal [facility] Comment on above: Performed By: #### L IPA BASIA, CMP #### [facility] [address] [place] [address] Dr. Neisha Araiza ALP [Catalytic activity/Vol] 90 U/L Normal 46-116 [facility] Comment on above: Performed By: #### L IPA BASIA, CMP #### [facility] [address] [place] [address] Dr. Neisha Araiza ALT [Catalytic activity/Vol] 26 U/L Normal 14-59 [facility] Comment on above: Performed By: #### L IPA, BASIA, CMP #### [facility] [address] [place] [address] Dr. Neisha Araiza Anion gap [Moles/Vol] 17.6 mmol/L Normal [facility] Comment on above: Performed By: #### L IPA, BASIA, CMP #### [facility] [address] [place] [address] Dr. Neisha Araiza AST [Catalytic activity/Vol] 19 U/L Normal 15-37 [facility] Comment on above: Performed By: #### L BASIA DRIVER, CMP #### [facility] [address] [place] [address] Dr. Neisha Araiza Bilirubin [Mass/Vol] 0.8 mg/dL Normal 0.2-1.0 [facility] Comment on above: Performed By: #### L NEISHA BASIA, CMP #### [facility] [address] [place] [address] Dr. Neisha Araiza Calcium [Mass/Vol] 7.9 mg/dL Critically low 8.5-10.1 Th [facility] Comment on above: Performed By: #### L BASIA DRIVER, CMP #### [facility] [address] [place] [address] Dr. Neisha Araiza Chloride [Moles/Vol] 98 mmol/L Normal 98-107 [facility] Comment on above: Performed By: #### L BASIA DRIVER, CMP #### [facility] [address] [place] [address] Dr. Neisha Araiza CO2 [Moles/Vol] 18.6 mmol/L Critically low 21.0-32.0 [facility] Comment on above: Performed By: #### L BASIA DRIVER, CMP #### [facility] [address] [place] [address] Dr. Neisha Araiza Creatinine [Mass/Vol] 0.50 mg/dL Critically low 0.55-1.02 [facility] Comment on above: Performed By: #### L BASIA DRIVER, CMP #### [facility] [address] [place] [address] Dr. Neisha Araiza EGFR-AF SOMALI >60 Normal >=60 [facility] Comment on above: Performed By: #### L BASIA DRIVER, CMP #### [facility] [address] [place] [address] Dr. Neisha Araiza EGFR-NON AF SOMALI >60 Normal >=60 [facility] Comment on above: Performed By: #### L BASIA DRIVER, CMP #### [facility] [address] [place] [address] Dr. Neisha Araiza Globulin (S) [Mass/Vol] 3.5 g/dL Normal [facility] Comment on above: Performed By: #### L BASIA DRIVER, CMP #### [facility] [address] [address] [address] Neisha Araiza Glucose [Mass/Vol] 195 mg/dL Critically high 74-106 T [facility] Comment on above: Performed By: #### L BASIA DRIVER, CMP #### [facility] [address] [address] [address] Neisha Araiza Potassium [Moles/Vol] 3.2 mmol/L Critically low 3.5-5.1 [facility] Comment on above: Performed By: #### L BASIA DRIVER, CMP #### [facility] [address] [place] [address] Dr. Neisha Araiza Protein [Mass/Vol] 6.4 g/dL Normal 6.4-8.2 [facility] Comment on above: Performed By: #### L BASIA DRIVER, CMP #### [facility] [address] [place] [address] Dr. Neisha Araiza Sodium [Moles/Vol] 131 mmol/L Critically low 136-145 Th [facility] Comment on above: Performed By: #### L BASIA DRIVER, CMP #### [facility] [address] [place] [address] Dr. Neisha Araiza Urea nitrogen [Mass/Vol] 7.0 mg/dL Normal 7.0-18.0 [facility] Comment on above: Performed By: #### L BASIA DRIVER, CMP #### [facility] [address] [place] [address] Dr. Neisha Araiza Urea nitrogen/Creatinine [Mass ratio] 14.0 mg/mg Normal [facility] Comment on above: Performed By: #### L BASIA DRIVER, CMP #### [facility] [address] [place] [address] Dr. Neisha Araiza ACETONE SERUMon 12-10-2021 ACETONE SMALL Abnormal NEGATIVE [facility] Comment on above: Performed By: #### L BASIA DRIVER, CMP #### [facility] [address] [place] [address] Dr. Neisha Araiza AMYLASEon 12-10-2021 Amylase [Catalytic activity/Vol] 31 U/L Normal 25-115 [facility] Comment on above: Performed By: #### L IPA, BASIA, CMP #### [facility] [address] [place] [address] Dr. Neisha Araiza CBC AUTO DIFFon 12-10-2021 BASO # 0.0 103/ul Normal 0.0-0.1 [facility] Comment on above: Performed By: #### C BC #### [facility] [address] [place] [address] Dr. Neisha Araiza Basophils/100 WBC (Bld) 0.5 % Normal 0.2-2.0 [facility] Comment on above: Performed By: #### C BC #### [facility] [address] [place] [address] Dr. Neisha Araiza EO # 0.0 103/ul Normal 0.0-0.7 [facility] Comment on above: Performed By: #### C BC #### [facility] [address] [place] [address] Dr. Neisha Araiza Eosinophils/100 WBC (Bld) 0.0 % Critically low 0.9-7.0 [facility] Comment on above: Performed By: #### C BC #### [facility] [address] [place] [address] Dr. Neisha Araiza Erythrocyte distribution width (RBC) [Ratio] 12.5 % Normal 11.0-15.0 [facility] Comment on above: Performed By: #### C BC #### [facility] [address] [place] [address] Dr. Neisha Araiza Hematocrit (Bld) [Volume fraction] 43.3 % Normal 36.0-48.0 [facility] Comment on above: Performed By: #### C BC #### [facility] [address] [place] [address] Dr. Neisha Araiza Hemoglobin (Bld) [Mass/Vol] 15.3 g/dL Normal 12.0-16.0 [facility] Comment on above: Performed By: #### C BC #### [facility] [address] [address] [address] Neisha Araiza IG # 0.06 10e3/ul Critically high 0.00-0.03 [facility] Comment on above: Performed By: #### C BC #### [facility] [address] [place] [address] Dr. Neisha Araiza IG % 0.7 % Critically high 0.0-0.5 [facility] Comment on above: Performed By: #### C BC #### [facility] [address] [place] [address] Dr. Neisha Araiza LYMPH # 0.9 103/ul Critically low 1.2-3.8 [facility] Comment on above: Performed By: #### C BC #### [facility] [address] [place] [address] Dr. Neisha Araiza Lymphocytes/100 WBC (Bld) 10.8 % Critically low 20.5-60.0 [facility] Comment on above: Performed By: #### C BC #### [facility] [address] [place] [address] Dr. Neisha Araiza MANUAL DIFF REQ NO Normal [facility] Comment on above: Performed By: #### C BC #### [facility] [address] [place] [address] Dr. Neisha Araiza MCH (RBC) [Entitic mass] 28.4 pg Normal 26.7-34.0 [facility] Comment on above: Performed By: #### C BC #### [facility] [address] [place] [address] Dr. Neisha Araiza MCHC (RBC) [Mass/Vol] 35.3 g/dL Critically high 29.9-35.2 [facility] Comment on above: Performed By: #### C BC #### [facility] [address] [place] [address] Dr. Neisha Araiza MCV (RBC) [Entitic vol] 80.3 fL Critically low 81.0-99.0 [facility] Comment on above: Performed By: #### C BC #### [facility] [address] [address] [address] Neisha Araiza MONO # 0.5 103/ul Normal 0.3-0.8 [facility] Comment on above: Performed By: #### C BC #### [facility] [address] [address] [address] Neisha Araiza Monocytes/100 WBC (Bld) 5.7 % Normal 1.7-12.0 [facility] Comment on above: Performed By: #### C BC #### [facility] [address] [place] [address] Dr. Neisha Araiza NEUT # 7.0 103/ul Critically high 1.4-6.5 [facility] Comment on above: Performed By: #### C BC #### [facility] [address] [place] [address] Dr. Neisha Araiza Neutrophils/100 WBC (Bld) 82.3 % Critically high 43.0-75.0 [facility] Comment on above: Performed By: #### C BC #### [facility] [address] [place] [address] Dr. Neisha Araiza Platelet mean volume (Bld) [Entitic vol] 9.4 fL Critically low 9.5-13.5 [facility] Comment on above: Performed By: #### C BC #### [facility] [address] [place] [address] Dr. Neisha Araiza PLT 271 103/ul Normal 150-450 [facility] Comment on above: Performed By: #### C BC #### [facility] [address] [place] [address] Dr. Neisha Araiza RBC 5.39 106/ul Normal 4.20-5.40 [facility] Comment on above: Performed By: #### C BC #### [facility] [address] [place] [address] Dr. Neisha Araiza WBC 8.5 103/ul Normal 4.0-11.0 [facility] Comment on above: Performed By: #### C BC #### [facility] [address] [address] [address] ABD/PELVIS WO CONon [...] MATTHEW SILVER Date: 2021-12-10 14:48 Normal [facility] CULTURE URINEon 12-10-2021 CULTURE URINE Culture Observations: GREATER THAN TWO ORGANISMS PRESENT. PLEASE RESUBMIT CLEAN CATCH MID-STREAM URINE IF CLINICALLY INDICATED. Normal [facility] Comment on above: Performed By: #### A CETON #### [facility] [address] [address] [address] Neisha Araiza [facility] SARS-CoV-2 (COVID-19) RNA TIM+probe Ql (Unsp spec) Not detected Normal NOT DETECTED [facility] Comment on above: Result Comment: [...] for this test is supported by the [employer] and Human Service's declaration that [...] longer be used). Performed By: #### L BASIA DRIVER, CMP #### [facility] [address] [place] [address] Dr. Neisha Araiza DRUG SCREEN RAPID (URINE)on 12-10-2021 AMP Negative Normal NEGATIVE [facility] Comment on above: Performed By: #### A CETON #### [facility] [address] [place] [address] Dr. Neisha Araiza BAR Negative Normal NEGATIVE [facility] Comment on above: Performed By: #### A CETON #### [facility] [address] [place] [address] Dr. Neisha Araiza BUP Negative Normal NEGATIVE [facility] Comment on above: Performed By: #### A CETON #### [facility] [address] [place] [address] Dr. Neisha Araiza BZO Negative Normal NEGATIVE [facility] Comment on above: Performed By: #### A CETON #### [facility] [address] [place] [address] Dr. Neisha Araiza VIVEK Negative Normal NEGATIVE [facility] Comment on above: Performed By: #### A CETON #### [facility] [address] [place] [address] Dr. Neisha Araiza CUT-OFFS SEE BELOW Normal [facility] Comment on above: Result Comment: AMP [...] ng/mL Performed By: #### A CETON #### [facility] [address] [place] [address] Dr. Neisha Araiza DRUG CUT HEADER DRUG CLASS TEST SYSTEM CUT-OFF CONCENTRATIONS ARE FOLLOWS: Normal [facility] Comment on above: Performed By: #### A CETON #### [facility] [address] [place] [address] Dr. Neisha Araiza mAMP Negative Normal NEGATIVE [facility] Comment on above: Performed By: #### A CETON #### [facility] [address] [place] [address] Dr. Neisha Araiza MTD Negative Normal NEGATIVE [facility] Comment on above: Performed By: #### A CETON #### [facility] [address] [place] [address] Dr. Neisha Araiza OPI Negative Normal NEGATIVE [facility] Comment on above: Performed By: #### A CETON #### [facility] [address] [place] [address] Dr. Neisha Araiza OXY Negative Normal NEGATIVE [facility] Comment on above: Performed By: #### A CETON #### [facility] [address] [place] [address] Dr. Neisha Araiza PCP Negative Normal NEGATIVE [facility] Comment on above: Performed By: #### A CETON #### [facility] [address] [place] [address] Dr. Neisha Araiza PPX Negative Normal NEGATIVE [facility] Comment on above: Performed By: #### A CETON #### [facility] [address] [place] [address] Dr. Neisha Araiza TCA Negative Normal NEGATIVE [facility] Comment on above: Performed By: #### A CETON #### [facility] [address] [place] [address] Dr. Neisha Araiza THC Negative Normal NEGATIVE [facility] Comment on above: Performed By: #### A CETON #### [facility] [address] [place] [address] Dr. Neisha Araiza ER URINE PROFILEon 2 Bilirubin Ql (U) Negative Normal NEGATIVE [facility] Comment on above: Performed By: #### E RUR, DRUGRPD #### [facility] [address] [place] [address] Dr. Neisha Araiza Clarity (U) CLEAR Normal CLEAR [facility] Comment on above: Performed By: #### E RUR, DRUGRPD #### [facility] [address] [place] [address] Dr. Neisha Araiza Color (U) YELLOW Normal YELLOW [facility] Comment on above: Performed By: #### E RUR, DRUGRPD #### [facility] [address] [place] [address] Dr. Neisha FERNANDEZMagnus A micrscopic examination will be performed if indicated. Normal [facility] Comment on above: Performed By: #### E RUR, DRUGRPD #### [facility] [address] [place] [address] Dr. Neisha Araiza Glucose Ql (U) 250 mg/dl Abnormal NEGATIVE [facility] Comment on above: Performed By: #### E RUR, DRUGRPD #### [facility] [address] [place] [address] Dr. Neisha Araiza Hemoglobin Ql (U) Negative Normal NEGATIVE [facility] [facility] Comment on above: Performed By: #### E RUR, DRUGRPD #### [facility] [address] [place] [address] Dr. Neisha Araiza Ketones Ql (U) 15 mg/dl Abnormal NEGATIVE [facility] Comment on above: Performed By: #### E RUR, DRUGRPD #### [facility] [address] [place] [address] Dr. Neisha Araiza LEUKOCYTES Negative Normal NEGATIVE [facility] Comment on above: Performed By: #### E RUR, DRUGRPD #### [facility] [address] [place] [address] Dr. Neisha Araiza Nitrite Ql (U) Negative Normal NEGATIVE [facility] Comment on above: Performed By: #### E RUR, DRUGRPD #### [facility] [address] [place] [address] Dr. Neisha Araiza pH (U) 6.0 [pH] Normal 5-9 [facility] Comment on above: Performed By: #### E RUR, DRUGRPD #### [facility] [address] [place] [address] Dr. Neisha Araiza SPEC GRAVITY 1.020 Normal 1.005-<=1.025 [facility] Comment on above: Performed By: #### E RUR, DRUGRPD #### [facility] [address] [place] [address] Dr. Neisha Araiza UA PROTEIN Negative Normal NEGATIVE/ TRACE [facility] Comment on above: Performed By: #### E RUR, DRUGRPD #### [facility] [address] [place] [address] Dr. Neisha Araiza UR MICRO IND NOT INDICATED Normal [facility] Comment on above: Performed By: #### E RUR, DRUGRPD #### [facility] [address] [place] [address] Dr. Neisha Araiza Urobilinogen Qn (U) 0.2 {Ankit'U}/dL Normal 0.2 - 1. 0 [facility] Comment on above: Performed By: #### E RUR, DRUGRPD #### [facility] [address] [place] [address] Dr. Neisha Araiza H PYLORI ANTIBODY IGGon 05- H. PYLORI IGG ABS 0.29 Index Value Normal 0.00-0.79 [facility] Comment on above: Result Comment: Nega tive <0.80 Equivocal 0.80 - 0.89 Positive >0.89 Performed By: #### C BC #### [facility] [address] [place] [address] Dr. Neisha Araiza INFLUENZA A AND B AGon 12-10 INFLUANEGH SEE BELOW Normal [facility] Comment on above: Result Comment: Nega tive for Flu A protein angiten. Infection due to Flu A cannot be ruled out. Flu A angiten in the sample may be below the detection limit of the test. Performed By: #### C BC #### [facility] [address] [place] [address] Dr. Neisha Araiza INFLUBNEGH SEE BELOW Normal [facility] Comment on above: Result Comment: Nega tive for Flu B protein antigen. Infection due to Flu B cannot be ruled out. Flu B antigen in the sample may be below the detection limit of the test. Performed By: #### C BC #### [facility] [address] [place] [address] Dr. Neisha Araiza INFLUENZA A AG Negative Normal NEGATIVE SEE COMMENT [facility] Comment on above: Performed By: #### C BC #### [facility] [address] [place] [address] Dr. Neisha Araiza INFLUENZA B AG Negative Normal NEGATIVE SEE COMMENT [facility] Comment on above: Performed By: #### C BC #### [facility] [address] [place] [address] Dr. Neisha Araiza INTERNAL CONTROLS Within Normal Limits Normal Wi thin Normal Limits [facility] Comment on above: Performed By: #### C BC #### [facility] [address] [place] [address] Dr. Neisha Araiza LACTATE/LACTIC ACIDon 2021 Lactate [Moles/Vol] 0.9 mmol/L Normal 0.4-1.9 [facility] Comment on above: Performed By: #### C BC #### [facility] [address] [place] [address] Dr. Neisha Araiza Lactate [Moles/Vol] 0.8 mmol/L Normal 0.4-1.9 [facility] Comment on above: Performed By: #### C BC #### [facility] [address] [place] [address] Dr. Neisha Araiza LIPASEon 12-10-2021 Lipase [Catalytic activity/Vol] 146.0 U/L Normal 73.0-393.0 [facility] Comment on above: Performed By: #### L BASIA DRIVER, CMP #### [facility] [address] [place] [address] Dr. Neisha Araiza POINT OF CARE GLUCOSEon 11-30 Glucose [Mass/Vol] 222 mg/dL Critically high 74-106 T [facility] Comment on above: Performed By: #### C BC #### [facility] [address] [place] [address] Dr. Neisha Araiza PREG HCG QUALon 12-10-2021 , QUAL Negative Normal NEGATIVE [facility] Comment on above: Performed By: #### L BASIA DRIVER, CMP #### [facility] [address] [place] [address] Dr. Neisha Araiza PROF 14(COMP METB)on 022 Albumin [Mass/Vol] 3.7 g/dL Normal 3.4-5.0 [facility] Comment on above: Performed By: #### L BASIA DRIVER, CMP #### [facility] [address] [place] [address] Dr. Neisha Araiza Albumin/Globulin [Mass ratio] 0.9 {ratio} Normal [facility] Comment on above: Performed By: #### L NEISHA BASIA, CMP #### [facility] [address] [place] [address] Dr. Neisha Araiza ALP [Catalytic activity/Vol] 118 U/L Critically high 46-116 [facility] Comment on above: Performed By: #### L NEISHA BASIA, CMP #### [facility] [address] [place] [address] Dr. Neisha Araiza ALT [Catalytic activity/Vol] 36 U/L Normal 14-59 [facility] Comment on above: Performed By: #### L IPA BASIA, CMP #### [facility] [address] [place] [address] Dr. Neisha Aariza Anion gap [Moles/Vol] 17.8 mmol/L Normal [facility] Comment on above: Performed By: #### L BASIA DRIVER, CMP #### [facility] [address] [address] [address] Neisha Araiza AST [Catalytic activity/Vol] 22 U/L Normal 15-37 [facility] Comment on above: Performed By: #### L BASIA DRIVER, CMP #### [facility] [address] [place] [address] Dr. Neisha Araiza Bilirubin [Mass/Vol] 0.9 mg/dL Normal 0.2-1.0 [facility] Comment on above: Performed By: #### L BASIA DRIVER, CMP #### [facility] [address] [place] [address] Dr. Neisha Araiza Calcium [Mass/Vol] 8.8 mg/dL Normal 8.5-10.1 [facility] Comment on above: Performed By: #### L BASIA DRIVER, CMP #### [facility] [address] [place] [address] Dr. Neisha Araiza Chloride [Moles/Vol] 99 mmol/L Normal 98-107 [facility] Comment on above: Performed By: #### L BASIA DRIVER, CMP #### [facility] [address] [place] [address] Dr. Neisha Araiza CO2 [Moles/Vol] 19.6 mmol/L Critically low 21.0-32.0 [facility] Comment on above: Performed By: #### L BASIA DRIVER, CMP #### [facility] [address] [place] [address] Dr. Neisha Araiza Creatinine [Mass/Vol] 0.52 mg/dL Critically low 0.55-1.02 [facility] Comment on above: Performed By: #### L BASIA DRIVER, CMP #### [facility] [address] [place] [address] Dr. Neisha Araiza EGFR-AF SOMALI >60 Normal >=60 [facility] Comment on above: Performed By: #### L BASIA DRIVER, CMP #### [facility] [address] [place] [address] Dr. Neisha Araiza EGFR-NON AF SOMALI >60 Normal >=60 [facility] Comment on above: Performed By: #### L BASIA DRIVER, CMP #### [facility] [address] [place] [address] Dr. Neisha Araiza Globulin (S) [Mass/Vol] 4.2 g/dL Normal [facility] Comment on above: Performed By: #### L BASIA DRIVER, CMP #### [facility] [address] [place] [address] Dr. Neisha Araiza Glucose [Mass/Vol] 172 mg/dL Critically high 74-106 T [facility] Comment on above: Performed By: #### L BASIA DRIVER, CMP #### [facility] [address] [place] [address] Dr. Neisha Araiza Potassium [Moles/Vol] 3.4 mmol/L Critically low 3.5-5.1 [facility] Comment on above: Performed By: #### L BASIA DRIVER, CMP #### [facility] [address] [place] [address] Dr. Neisha Araiza Protein [Mass/Vol] 7.9 g/dL Normal 6.4-8.2 [facility] Comment on above: Performed By: #### L BASIA DRIVER, CMP #### [facility] [address] [place] [address] Dr. Neisha Araiza Sodium [Moles/Vol] 133 mmol/L Critically low 136-145 [facility] Comment on above: Performed By: #### L BASIA DRIVER, CMP #### [facility] [address] [place] [address] Dr. Neisha Araiza Urea nitrogen [Mass/Vol] 11.0 mg/dL Normal 7.0-18.0 [facility] Comment on above: Performed By: #### L BASIA DRIVER, CMP #### [facility] [address] [place] [address] Dr. Neisha Araiza Urea nitrogen/Creatinine [Mass ratio] 21.2 mg/mg Normal [facility] Comment on above: Performed By: #### L BASIA DRIVER, CMP #### [facility] [address] [place] [address] Dr. Neisha Araiza TSHon 12-10-2021 TSH 0.594 uIU/mL Normal 0.358-3.740 [facility] Comment on above: Performed By: #### L BASIA DRIVER, CMP #### [facility] [address] [place] [address] Dr. Neisha Araiza TSH RANGE SEE BELOW Normal [facility] Comment on above: Result Comment: <0.3 4 UIU/ml HYPERTHYROID 0.34-5.60 UIU/ml EUTHYROID >5.60 UIU/ml HYPOTHYROID Performed By: #### L BASIA DRIVER, CMP #### [facility] [address] [place] [address] Dr. Neisha Araiza CBC AUTO DIFFon 12-09-2021 BASO # 0.0 103/ul Normal 0.0-0.1 [facility] Comment on above: Performed By: #### L BASIA DRIVER, CMP #### [facility] [address] [place] [address] Dr. Neisha Araiza Basophils/100 WBC (Bld) 0.4 % Normal 0.2-2.0 [facility] Comment on above: Performed By: #### L BASIA DRIVER, CMP #### [facility] [address] [place] [address] Dr. Neisha Araiza EO # 0.0 103/ul Normal 0.0-0.7 [facility] Comment on above: Performed By: #### L BASIA DRIVER, CMP #### [facility] [address] [place] [address] Dr. eNisha Araiza Eosinophils/100 WBC (Bld) 0.1 % Critically low 0.9-7.0 [facility] Comment on above: Performed By: #### L BASIA DRIVER, CMP #### [facility] [address] [place] [address] Dr. Neisha Araiza Erythrocyte distribution width (RBC) [Ratio] 12.8 % Normal 11.0-15.0 [facility] Comment on above: Performed By: #### L BASIA DRIVER, CMP #### [facility] [address] [address] [address] Neisha Araiza Hematocrit (Bld) [Volume fraction] 41.1 % Normal 36.0-48.0 [facility] Comment on above: Performed By: #### L BASIA DRIVER, CMP #### [facility] [address] [address] [address] Neisha Araiza Hemoglobin (Bld) [Mass/Vol] 13.8 g/dL Normal 12.0-16.0 [facility] Comment on above: Performed By: #### L BASIA DRIVER, CMP #### [facility] [address] [place] [address] Dr. Neisha Araiza IG # 0.05 10e3/ul Critically high 0.00-0.03 [facility] Comment on above: Performed By: #### L BASIA DRIVER, CMP #### [facility] [address] [place] [address] Dr. Neisha Araiza IG % 0.5 % Normal 0.0-0.5 [facility] Comment on above: Performed By: #### L BASIA DRIVER, CMP #### [facility] [address] [place] [address] Dr. Neisha Araiza LYMPH # 2.1 103/ul Normal 1.2-3.8 [facility] Comment on above: Performed By: #### L BASIA DRIVER, CMP #### [facility] [address] [place] [address] Dr. Neisha Araiza Lymphocytes/100 WBC (Bld) 22.8 % Normal 20.5-60.0 [facility] Comment on above: Performed By: #### L BASIA DRIVER, CMP #### [facility] [address] [place] [address] Dr. Neisha Araiza MANUAL DIFF REQ NO Normal [facility] Comment on above: Performed By: #### L BASIA DRIVER, CMP #### [facility] [address] [place] [address] Dr. Neisha Araiza MCH (RBC) [Entitic mass] 28.3 pg Normal 26.7-34.0 [facility] Comment on above: Performed By: #### L IPA, BASIA, CMP #### [facility] [address] [place] [address] Dr. Neisha Araiza MCHC (RBC) [Mass/Vol] 33.6 g/dL Normal 29.9-35.2 [facility] Comment on above: Performed By: #### L IPA BASIA, CMP #### [facility] [address] [place] [address] Dr. Neisha Araiza MCV (RBC) [Entitic vol] 84.4 fL Normal 81.0-99.0 [facility] Comment on above: Performed By: #### L IPA BASIA, CMP #### [facility] [address] [place] [address] Dr. Neisha Araiza MONO # 0.6 103/ul Normal 0.3-0.8 [facility] Comment on above: Performed By: #### L NEISHA BASIA, CMP #### [facility] [address] [place] [address] Dr. Neisha Araiza Monocytes/100 WBC (Bld) 6.0 % Normal 1.7-12.0 [facility] Comment on above: Performed By: #### L NEISHA BASIA, CMP #### [facility] [address] [place] [address] Dr. Neisha Araiza NEUT # 6.4 103/ul Normal 1.4-6.5 [facility] Comment on above: Performed By: #### L NEISHA BASIA, CMP #### [facility] [address] [place] [address] Dr. Neisha Araiza Neutrophils/100 WBC (Bld) 70.2 % Normal 43.0-75.0 [facility] Comment on above: Performed By: #### L IPA BASIA, CMP #### [facility] [address] [place] [address] Dr. Neisha Araiza Platelet mean volume (Bld) [Entitic vol] 9.8 fL Normal 9.5-13.5 [facility] Comment on above: Performed By: #### L IPA BASIA, CMP #### [facility] [address] [place] [address] Dr. Neisha Araiza PLT 258 103/ul Normal 150-450 [facility] Comment on above: Performed By: #### L BASIA DRIVER, CMP #### [facility] [address] [address] [address] Neisha Araiza RBC 4.87 106/ul Normal 4.20-5.40 [facility] Comment on above: Performed By: #### L BASIA DRIVER, CMP #### [facility] [address] [address] [address] Neisha Araiza WBC 9.1 103/ul Normal 4.0-11.0 [facility] Comment on above: Performed By: #### L BASIA DRIVER, CMP #### [facility] [address] [place] [address] Dr. Neisha Araiza POINT OF CARE GLUCOSEon 11-30 0-2021 Glucose [Mass/Vol] 222 mg/dL Critically high 74-106 [facility] Comment on above: Performed By: #### C BC #### [facility] [address] [place] [address] Dr. Neisha Araiza Glucose [Mass/Vol] 225 mg/dL Critically high 74-106 [facility] Comment on above: Performed By: #### C BC #### [facility] [address] [place] [address] Dr. Neisha Araiza PROF 14(COMP METB)on 022 Albumin [Mass/Vol] 3.1 g/dL Critically low 3.4-5.0 [facility] Comment on above: Performed By: #### C BC #### [facility] [address] [place] [address] Dr. Neisha Araiza Albumin/Globulin [Mass ratio] 0.9 {ratio} Normal [facility] Comment on above: Performed By: #### C BC #### [facility] [address] [place] [address] Dr. Neisha Araiza ALP [Catalytic activity/Vol] 99 U/L Normal 46-116 [facility] Comment on above: Performed By: #### C BC #### [facility] [address] [address] [address] Neisha Araiza ALT [Catalytic activity/Vol] 28 U/L Normal 14-59 [facility] Comment on above: Performed By: #### C BC #### [facility] [address] [address] [address] Neisha Araiza Anion gap [Moles/Vol] 15.0 mmol/L Normal [facility] Comment on above: Performed By: #### C BC #### [facility] [address] [address] [address] Neisha Araiza AST [Catalytic activity/Vol] 12 U/L Critically low 15-37 [facility] Comment on above: Performed By: #### C BC #### [facility] [address] [place] [address] Dr. Neisha Araiza Bilirubin [Mass/Vol] 1.3 mg/dL Critically high 0.2-1.0 [facility] Comment on above: Performed By: #### C BC #### [facility] [address] [place] [address] Dr. Neisha Araiza Calcium [Mass/Vol] 7.5 mg/dL Critically low 8.5-10.1 [facility] Comment on above: Performed By: #### C BC #### [facility] [address] [place] [address] Dr. Neisha Araiza Chloride [Moles/Vol] 101 mmol/L Normal 98-107 [facility] Comment on above: Performed By: #### C BC #### [facility] [address] [place] [address] Dr. Neisha Araiza CO2 [Moles/Vol] 14.9 mmol/L Critically low 21.0-32.0 [facility] Comment on above: Performed By: #### C BC #### [facility] [address] [place] [address] Dr. Neisha Araiza Creatinine [Mass/Vol] 0.52 mg/dL Critically low 0.55-1.02 [facility] Comment on above: Performed By: #### C BC #### [facility] [address] [place] [address] Dr. Neisha Araiza EGFR-AF SOMALI >60 Normal >=60 [facility] Comment on above: Performed By: #### C BC #### [facility] [address] [address] [address] Neisha Araiza EGFR-NON AF SOMALI >60 Normal >=60 [facility] Comment on above: Performed By: #### C BC #### [facility] [address] [address] [address] Neisha Araiza Globulin (S) [Mass/Vol] 3.6 g/dL Normal [facility] Comment on above: Performed By: #### C BC #### [facility] [address] [address] [address] Neisha Araiza Glucose [Mass/Vol] 232 mg/dL Critically high 74-106 T [facility] Comment on above: Performed By: #### C BC #### [facility] [address] [address] [address] Neisha Araiza Potassium [Moles/Vol] 3.9 mmol/L Normal 3.5-5.1 [facility] Comment on above: Performed By: #### C BC #### [facility] [address] [address] [address] Neisha Araiza Protein [Mass/Vol] 6.7 g/dL Normal 6.4-8.2 [facility] Comment on above: Performed By: #### C BC #### [facility] [address] [address] [address] Neisha Araiza Sodium [Moles/Vol] 127 mmol/L Critically low 136-145 Th [facility] Comment on above: Performed By: #### C BC #### [facility] [address] [address] [address] Neisha Araiza Urea nitrogen [Mass/Vol] 9.0 mg/dL Normal 7.0-18.0 [facility] Comment on above: Performed By: #### C BC #### [facility] [address] [address] [address] Neisha Araiza Urea nitrogen/Creatinine [Mass ratio] 17.3 mg/mg Normal [facility] Comment on above: Performed By: #### C BC #### [facility] [address] [address] [address] Neisha Araiza UA RANDOM W/MICROSCOPICon BACTERIA NONE SEEN Normal NONE SEEN [facility] Comment on above: Performed By: #### U AMIC #### [facility] [address] [address] [address] Neisha Araiza Bilirubin Ql (U) Negative Normal NEGATIVE The [facility] Comment on above: Performed By: #### U AMIC #### [facility] [address] [address] [address] Neisha Araiza CAST NONE SEEN Normal NONE SEEN [facility] Comment on above: Performed By: #### U AMIC #### [facility] [address] [place] [address] Dr. Neisha Araiza Clarity (U) CLEAR Normal CLEAR [facility] Comment on above: Performed By: #### U AMIC #### [facility] [address] [address] [address] Neisha Araiza Color (U) LT. YELLOW Normal YELLOW [facility] Comment on above: Performed By: #### U AMIC #### [facility] [address] [address] [address] Neisha Araiza Crystals LM Nom (Urine sed) NONE SEEN Normal NONE SEEN [facility] Comment on above: Performed By: #### U AMIC #### [facility] [address] [address] [address] Neisha Araiza Epithelial cells LM Ql (Urine sed) FEW Abnormal NONE SEEN /RARE [facility] Comment on above: Performed By: #### U AMIC #### [facility] [address] [address] [address] Neisha Araiza Glucose Ql (U) 500 mg/dl Abnormal NEGATIVE [facility] Comment on above: Performed By: #### U AMIC #### [facility] [address] [place] [address] Dr. Neisha Araiza Hemoglobin Ql (U) Negative Normal NEGATIVE [facility] Comment on above: Performed By: #### U AMIC #### [facility] [address] [address] [address] Neisha Araiza Ketones Ql (U) 80 mg/dl Abnormal NEGATIVE [facility] Comment on above: Performed By: #### U AMIC #### [facility] [address] [address] [address] Neisha Araiza LEUKOCYTES Negative Normal NEGATIVE [facility] Comment on above: Performed By: #### U AMIC #### [facility] [address] [address] [address] Neisha Araiza MUCOUS NONE SEEN Normal NONE SEEN [facility] Comment on above: Performed By: #### U AMIC #### [facility] [address] [place] [address] Dr. Neisha Araiza Nitrite Ql (U) Negative Normal NEGATIVE [facility] Comment on above: Performed By: #### U AMIC #### [facility] [address] [place] [address] Dr. Neisha Araiza pH (U) 6.0 [pH] Normal 5-9 [facility] Comment on above: Performed By: #### U AMIC #### [facility] [address] [place] [address] Dr. Neisha Araiza RBC NONE SEEN Abnormal 0-2 [facility] Comment on above: Performed By: #### U AMIC #### [facility] [address] [place] [address] Dr. Neisha Araiza SPEC GRAVITY 1.030 Abnormal 1.005-<=1.025 [facility] Comment on above: Performed By: #### U AMIC #### [facility] [address] [place] [address] Dr. Neisha Araiza UA PROTEIN TRACE Normal NEGATIVE/ TRACE [facility] Comment on above: Performed By: #### U AMIC #### [facility] [address] [place] [address] Dr. Neisha Araiza Urobilinogen Qn (U) 0.2 {Ankit'U}/dL Normal 0.2 - 1. 0 [facility] Comment on above: Performed By: #### U AMIC #### [facility] [address] [place] [address] Dr. Neisha Araiza WBC 0-2 Abnormal NONE SEEN [facility] Comment on above: Performed By: #### U AMIC #### [facility] [address] [place] [address] Dr. Neisha Araiza AMYLASEon 12-08-2021 Amylase [Catalytic activity/Vol] 31 U/L Normal 25-115 [facility] Comment on above: Performed By: #### L IPA, BASIA, CMP #### [facility] [address] [place] [address] Dr. Neisha Araiza CBC AUTO DIFFon 12-08-2021 BASO # 0.0 103/ul Normal 0.0-0.1 [facility] Comment on above: Performed By: #### C BC #### [facility] [address] [place] [address] Dr. Neisha Araiza Basophils/100 WBC (Bld) 0.4 % Normal 0.2-2.0 [facility] Comment on above: Performed By: #### C BC #### [facility] [address] [place] [address] Dr. Neisha Araiza EO # 0.0 103/ul Normal 0.0-0.7 [facility] Comment on above: Performed By: #### C BC #### [facility] [address] [place] [address] Dr. Neisha Araiza Eosinophils/100 WBC (Bld) 0.0 % Critically low 0.9-7.0 [facility] Comment on above: Performed By: #### C BC #### [facility] [address] [place] [address] Dr. Neisha Araiza Erythrocyte distribution width (RBC) [Ratio] 12.9 % Normal 11.0-15.0 [facility] Comment on above: Performed By: #### C BC #### [facility] [address] [place] [address] Dr. Neisha Araiza Hematocrit (Bld) [Volume fraction] 43.8 % Normal 36.0-48.0 [facility] Comment on above: Performed By: #### C BC #### [facility] [address] [address] [address] Neisha Araiza Hemoglobin (Bld) [Mass/Vol] 14.7 g/dL Normal 12.0-16.0 [facility] Comment on above: Performed By: #### C BC #### [facility] [address] [place] [address] Dr. Neisha Araiza IG # 0.06 10e3/ul Critically high 0.00-0.03 [facility] Comment on above: Performed By: #### C BC #### [facility] [address] [place] [address] Dr. Neisha Araiza IG % 0.6 % Critically high 0.0-0.5 [facility] Comment on above: Performed By: #### C BC #### [facility] [address] [place] [address] Dr. Neisha Araiza LYMPH # 1.4 103/ul Normal 1.2-3.8 [facility] Comment on above: Performed By: #### C BC #### [facility] [address] [place] [address] Dr. Neisha Araiza Lymphocytes/100 WBC (Bld) 12.7 % Critically low 20.5-60.0 [facility] Comment on above: Performed By: #### C BC #### [facility] [address] [place] [address] Dr. Neisha Araiza MANUAL DIFF REQ NO Normal [facility] Comment on above: Performed By: #### C BC #### [facility] [address] [place] [address] Dr. Neisha Araiza MCH (RBC) [Entitic mass] 28.2 pg Normal 26.7-34.0 [facility] Comment on above: Performed By: #### C BC #### [facility] [address] [place] [address] Dr. Neisha Araiza MCHC (RBC) [Mass/Vol] 33.6 g/dL Normal 29.9-35.2 [facility] Comment on above: Performed By: #### C BC #### [facility] [address] [address] [address] Neisha Araiza MCV (RBC) [Entitic vol] 84.1 fL Normal 81.0-99.0 [facility] Comment on above: Performed By: #### C BC #### [facility] [address] [address] [address] Neisha Araiza MONO # 0.5 103/ul Normal 0.3-0.8 [facility] Comment on above: Performed By: #### C BC #### [facility] [address] [place] [address] Dr. Neisha Araiza Monocytes/100 WBC (Bld) 4.7 % Normal 1.7-12.0 [facility] Comment on above: Performed By: #### C BC #### [facility] [address] [place] [address] Dr. Neisha Araiza NEUT # 8.8 103/ul Critically high 1.4-6.5 [facility] Comment on above: Performed By: #### C BC #### [facility] [address] [place] [address] Dr. Neisha Araiza Neutrophils/100 WBC (Bld) 81.6 % Critically high 43.0-75.0 [facility] Comment on above: Performed By: #### C BC #### [facility] [address] [place] [address] Dr. Neisha Araiza Platelet mean volume (Bld) [Entitic vol] 10.0 fL Normal 9.5-13.5 [facility] Comment on above: Performed By: #### C BC #### [facility] [address] [place] [address] Dr. Neisha Araiza PLT 293 103/ul Normal 150-450 [facility] Comment on above: Performed By: #### C BC #### [facility] [address] [place] [address] Dr. Neisha Araiza RBC 5.21 106/ul Normal 4.20-5.40 [facility] Comment on above: Performed By: #### C BC #### [facility] [address] [place] [address] Dr. Neisha Araiza WBC 10.7 103/ul Normal 4.0-11.0 [facility] Comment on above: Performed By: #### C BC #### [facility] [address] [place] [address] Dr. Neisha Araiza [facility]on SARS-CoV-2 (COVID-19) RNA TIM+probe Ql (Unsp spec) Not detected Normal NOT DETECTED [facility] Comment on above: Result Comment: [...] for this test is supported by the [place] of [employer] and Human Service's declaration that [...] used). Performed By: #### C BC #### [facility] [address] [place] [address] Dr. Neisha Araiza LACTATE/LACTIC ACIDon 2021 Lactate [Moles/Vol] 1.5 mmol/L Normal 0.4-1.9 [facility] Comment on above: Performed By: #### C BC #### [facility] [address] [place] [address] Dr. Neisha Araiza LIPASEon 12-08-2021 Lipase [Catalytic activity/Vol] 149.0 U/L Normal 73.0-393.0 [facility] Comment on above: Performed By: #### L IPA, BASIA, CMP #### [facility] [address] [place] [address] Dr. Neisha Araiza POINT OF CARE GLUCOSEon Glucose [Mass/Vol] 282 mg/dL Critically high 74-106 [facility] Comment on above: Performed By: #### A CETON #### [facility] [address] [address] [address] Neisha Araiza PROF 14(COMP METB)on 022 Albumin [Mass/Vol] 3.6 g/dL Normal 3.4-5.0 [facility] Comment on above: Performed By: #### L BASIA DRIVER, CMP #### [facility] [address] [address] [address] Neisha Araiza Albumin/Globulin [Mass ratio] 0.9 {ratio} Normal [facility] Comment on above: Performed By: #### L NEISHA BASIA, CMP #### [facility] [address] [place] [address] Dr. Neisha Araiza ALP [Catalytic activity/Vol] 105 U/L Normal 46-116 [facility] Comment on above: Performed By: #### L NEISHA BASIA, CMP #### [facility] [address] [address] [address] Neisha Araiza ALT [Catalytic activity/Vol] 32 U/L Normal 14-59 [facility] Comment on above: Performed By: #### L NEISHA BASIA, CMP #### [facility] [address] [address] [address] Neisha Araiza Anion gap [Moles/Vol] 23.2 mmol/L Normal [facility] Comment on above: Performed By: #### L NEIHSA BASIA, CMP #### [facility] [address] [address] [address] Neisha Araiza AST [Catalytic activity/Vol] 15 U/L Normal 15-37 [facility] Comment on above: Performed By: #### L IPA BASIA, CMP #### [facility] [address] [address] [address] Neisha Araiza Bilirubin [Mass/Vol] 1.3 mg/dL Critically high 0.2-1.0 [facility] Comment on above: Performed By: #### L IPA BASIA, CMP #### [facility] [address] [address] [address] Neisha Araiza Calcium [Mass/Vol] 8.0 mg/dL Critically low 8.5-10.1 [facility] Comment on above: Performed By: #### L IPA BASIA, CMP #### [facility] [address] [address] [address] Neisha Araiza Chloride [Moles/Vol] 96 mmol/L Critically low 98-107 [facility] Comment on above: Performed By: #### L IPA BASIA, CMP #### [facility] [address] [address] [address] Neisha Araiza CO2 [Moles/Vol] 14.8 mmol/L Critically low 21.0-32.0 [facility] Comment on above: Performed By: #### L IPA BASIA, CMP #### [facility] [address] [place] [address] Dr. Neisha Araiza Creatinine [Mass/Vol] 0.62 mg/dL Normal 0.55-1.02 [facility] Comment on above: Performed By: #### L BASIA DRVIER, CMP #### [facility] [address] [place] [address] Dr. Neisha Araiza EGFR-AF SOMALI >60 Normal >=60 [facility] Comment on above: Performed By: #### L NEISHA BASIA, CMP #### [facility] [address] [place] [address] Dr. Neisha Araiza EGFR-NON AF SOMALI >60 Normal >=60 [facility] Comment on above: Performed By: #### L IPA BASIA, CMP #### [facility] [address] [place] [address] Dr. Neisha Araiza Globulin (S) [Mass/Vol] 4.2 g/dL Normal [facility] Comment on above: Performed By: #### L IPA BASIA, CMP #### [facility] [address] [place] [address] Dr. Neisha Araiza Glucose [Mass/Vol] 285 mg/dL Critically high 74-106 [facility] Comment on above: Performed By: #### L BASIA DRIVER, CMP #### [facility] [address] [address] [address] Neisha Araiza Potassium [Moles/Vol] 4.0 mmol/L Normal 3.5-5.1 [facility] Comment on above: Performed By: #### L BASIA DRIVER, CMP #### [facility] [address] [place] [address] Dr. Neisha Araiza Protein [Mass/Vol] 7.8 g/dL Normal 6.4-8.2 [facility] Comment on above: Performed By: #### L BASIA DRIVER, CMP #### [facility] [address] [place] [address] Dr. Neisha Araiza Sodium [Moles/Vol] 130 mmol/L Critically low 136-145 [facility] Comment on above: Performed By: #### L BASIA DRIVER, CMP #### [facility] [address] [place] [address] Dr. Neisha Araiza Urea nitrogen [Mass/Vol] 12.0 mg/dL Normal 7.0-18.0 [facility] Comment on above: Performed By: #### L BASIA DRIVER, CMP #### [facility] [address] [place] [address] Dr. Neisha Araiza Urea nitrogen/Creatinine [Mass ratio] 19.4 mg/mg Normal [facility] Comment on above: Performed By: #### L BASIA DRIVER, CMP #### [facility] [address] [place] [address] Dr. Neisha Araiza AMYLASEon 12-07-2021 Amylase [Catalytic activity/Vol] 20 U/L Critically low 25-115 [facility] Comment on above: Performed By: #### A CETON #### [facility] [address] [place] [address] Dr. Neisha Araiza BILIRUBIN CONJUGATED (DIRECT )on 12-07-2021 BILI, CONJUGATED 0.2 mg/dL Normal 0.0-0.2 [facility] Comment on above: Performed By: #### C BC #### [facility] [address] [place] [address] Dr. Neisha Araiza CBC AUTO DIFFon 12-07-2021 BASO # 0.0 103/ul Normal 0.0-0.1 [facility] Comment on above: Performed By: #### L IPABASIA, CMP #### [facility] [address] [place] [address] Dr. Neisha Araiza Basophils/100 WBC (Bld) 0.3 % Normal 0.2-2.0 [facility] Comment on above: Performed By: #### L IPA BASIA, CMP #### [facility] [address] [place] [address] Dr. Neisha Araiza EO # 0.0 103/ul Normal 0.0-0.7 [facility] Comment on above: Performed By: #### L NEISHA BASIA, CMP #### [facility] [address] [place] [address] Dr. Neisha Araiza Eosinophils/100 WBC (Bld) 0.0 % Critically low 0.9-7.0 [facility] Comment on above: Performed By: #### L BASIA DRIVER, CMP #### [facility] [address] [place] [address] Dr. Neisha Araiza Erythrocyte distribution width (RBC) [Ratio] 12.7 % Normal 11.0-15.0 [facility] Comment on above: Performed By: #### L BASIA DRIVER, CMP #### [facility] [address] [place] [address] Dr. Neisha Araiza Hematocrit (Bld) [Volume fraction] 44.9 % Normal 36.0-48.0 [facility] Comment on above: Performed By: #### L BASIA DRIVER, CMP #### [facility] [address] [place] [address] Dr. Neisha Araiza Hemoglobin (Bld) [Mass/Vol] 15.4 g/dL Normal 12.0-16.0 [facility] Comment on above: Performed By: #### L IPA BASIA, CMP #### [facility] [address] [place] [address] Dr. Neisha Araiza IG # 0.03 10e3/ul Normal 0.00-0.03 [facility] Comment on above: Performed By: #### L BASIA DRIVER, CMP #### [facility] [address] [place] [address] Dr. Neisha Araiza IG % 0.3 % Normal 0.0-0.5 [facility] Comment on above: Performed By: #### L BASIA DRIVER, CMP #### [facility] [address] [place] [address] Dr. Neisha Araiza LYMPH # 1.2 103/ul Normal 1.2-3.8 [facility] Comment on above: Performed By: #### L BASIA DRIVER, CMP #### [facility] [address] [place] [address] Dr. Neisha Araiza Lymphocytes/100 WBC (Bld) 12.2 % Critically low 20.5-60.0 [facility] Comment on above: Performed By: #### L BASIA DRIVER, CMP #### [facility] [address] [place] [address] Dr. Neisha Araiza MANUAL DIFF REQ NO Normal [facility] Comment on above: Performed By: #### L BASIA DRIVER, CMP #### [facility] [address] [place] [address] Dr. Neisha Araiza MCH (RBC) [Entitic mass] 28.3 pg Normal 26.7-34.0 [facility] Comment on above: Performed By: #### L BASIA DRIVER, CMP #### [facility] [address] [place] [address] Dr. Neisha Araiza MCHC (RBC) [Mass/Vol] 34.3 g/dL Normal 29.9-35.2 [facility] Comment on above: Performed By: #### L BASIA DRIVER, CMP #### [facility] [address] [place] [address] Dr. Neisha Araiza MCV (RBC) [Entitic vol] 82.5 fL Normal 81.0-99.0 [facility] Comment on above: Performed By: #### L BASIA DRIVER, CMP #### [facility] [address] [place] [address] Dr. Neisha Araiza MONO # 0.3 103/ul Normal 0.3-0.8 [facility] Comment on above: Performed By: #### L BASIA DRIVER, CMP #### [facility] [address] [address] [address] Neisha Araiza Monocytes/100 WBC (Bld) 3.1 % Normal 1.7-12.0 [facility] Comment on above: Performed By: #### L BASIA DRIVER, CMP #### [facility] [address] [address] [address] Neisha Araiza NEUT # 8.1 103/ul Critically high 1.4-6.5 [facility] Comment on above: Performed By: #### L BASIA DRIVER, CMP #### [facility] [address] [place] [address] Dr. Neisha Araiza Neutrophils/100 WBC (Bld) 84.1 % Critically high 43.0-75.0 [facility] Comment on above: Performed By: #### L BASIA DRIVER, CMP #### [facility] [address] [address] [address] Neisha Araiza Platelet mean volume (Bld) [Entitic vol] 9.8 fL Normal 9.5-13.5 [facility] Comment on above: Performed By: #### L BASIA DRIVER, CMP #### [facility] [address] [place] [address] Dr. Neisha Araiza PLT 263 103/ul Normal 150-450 [facility] Comment on above: Performed By: #### L BASIA DRIVER, CMP #### [facility] [address] [address] [address] Neisha Araiza RBC 5.44 106/ul Critically high 4.20-5.40 The [facility] Comment on above: Performed By: #### L BASIA DRIVER, CMP #### [facility] [address] [address] [address] Neisha Araiza WBC 9.6 103/ul Normal 4.0-11.0 [facility] Comment on above: Performed By: #### L IPA, BASIA, CMP #### [facility] [address] [place] [address] Dr. Neisha Araiza LIPASEon 12-07-2021 Lipase [Catalytic activity/Vol] 73.0 U/L Normal 73.0-393.0 [facility] Comment on above: Performed By: #### A CETON #### [facility] [address] [place] [address] Dr. Neisha Araiza PROF 14(COMP METB)on 022 Albumin [Mass/Vol] 3.8 g/dL Normal 3.4-5.0 [facility] Comment on above: Performed By: #### A CETON #### [facility] [address] [place] [address] Dr. Niesha Araiza Albumin/Globulin [Mass ratio] 0.9 {ratio} Normal [facility] Comment on above: Performed By: #### A CETON #### [facility] [address] [place] [address] Dr. Neisha Araiza ALP [Catalytic activity/Vol] 120 U/L Critically high 46-116 [facility] Comment on above: Performed By: #### A CETON #### [facility] [address] [place] [address] Dr. Neisha Araiza ALT [Catalytic activity/Vol] 34 U/L Normal 14-59 [facility] Comment on above: Performed By: #### A CETON #### [facility] [address] [place] [address] Dr. Neisha Araiza Anion gap [Moles/Vol] 20.0 mmol/L Normal [facility] Comment on above: Performed By: #### A CETON #### [facility] [address] [place] [address] Dr. Neisha Araiza AST [Catalytic activity/Vol] 18 U/L Normal 15-37 [facility] Comment on above: Performed By: #### A CETON #### [facility] [address] [place] [address] Dr. Neisha Araiza Bilirubin [Mass/Vol] 1.1 mg/dL Critically high 0.2-1.0 [facility] Comment on above: Performed By: #### A CETON #### [facility] [address] [address] [address] Neisha Araiza Calcium [Mass/Vol] 8.5 mg/dL Normal 8.5-10.1 [facility] Comment on above: Performed By: #### A CETON #### [facility] [address] [address] [address] Neisha Araiza Chloride [Moles/Vol] 94 mmol/L Critically low 98-107 [facility] Comment on above: Performed By: #### A CETON #### [facility] [address] [address] [address] Neisha Araiza CO2 [Moles/Vol] 18.9 mmol/L Critically low 21.0-32.0 [facility] Comment on above: Performed By: #### A CETON #### [facility] [address] [address] [address] Neisha Araiza Creatinine [Mass/Vol] 0.59 mg/dL Normal 0.55-1.02 [facility] Comment on above: Performed By: #### A CETON #### [facility] [address] [address] [address] Neisha Araiza EGFR-AF SOMALI >60 Normal >=60 [facility] Comment on above: Performed By: #### A CETON #### [facility] [address] [address] [address] Neisha Araiza EGFR-NON AF SOMALI >60 Normal >=60 [facility] Comment on above: Performed By: #### A CETON #### [facility] [address] [address] [address] Neisha Araiza Globulin (S) [Mass/Vol] 4.1 g/dL Normal [facility] Comment on above: Performed By: #### A CETON #### [facility] [address] [address] [address] Neisha Araiza Glucose [Mass/Vol] 322 mg/dL Critically high 74-106 [facility] Comment on above: Performed By: #### A CETON #### [facility] [address] [address] [address] Neisha Araiza Potassium [Moles/Vol] 3.9 mmol/L Normal 3.5-5.1 [facility] Comment on above: Performed By: #### A CETON #### [facility] [address] [address] [address] Neisha Araiza Protein [Mass/Vol] 7.9 g/dL Normal 6.4-8.2 [facility] Comment on above: Performed By: #### A CETON #### [facility] [address] [address] [address] Neisha Araiza Sodium [Moles/Vol] 129 mmol/L Critically low 136-145 [facility] Comment on above: Performed By: #### A CETON #### [facility] [address] [address] [address] Neisha Araiza Urea nitrogen [Mass/Vol] 12.0 mg/dL Normal 7.0-18.0 [facility] Comment on above: Performed By: #### A CETON #### [facility] [address] [address] [address] Neisha Araiza Urea nitrogen/Creatinine [Mass ratio] 20.3 mg/mg Normal [facility] Comment on above: Performed By: #### A CETON #### [facility] [address] [address] [address] Neisha Araiza Vital Signs Date Time Vital Sign Value Performing Clinician Facility 04-24-2025 [id number] Body temperature 98.2 [degF] Priscilla Kashmir [employer] Work Phone: [facility] 04-24-2025 10:12-0400 Diastolic blood pressure 78 mm[Hg] Priscilla Marlow DDS Work Phone: [facility] 04-24-2025 10:12-0400 Heart rate 88 /min Priscilla Marlow DDS Work Phone: [facility] 04-24-2025 10:12-0400 Systolic blood pressure 130 mm[Hg] Priscilla Marlow [employer] Work Phone: [facility] 03-20-2025 10:25-0400 Body temperature 97.81 [degF] Yixue Marlow DDS Work Phone: [facility] 03-20-2025 10:25-0400 Diastolic blood pressure 94 mm[Hg] Yixue Marlow DDS Work Phone: [facility] 03-20-2025 10:25-0400 Heart rate 82 /min Yixue Marlow DDS Work Phone: [facility] 03-20-2025 10:25-0400 Systolic blood pressure 146 mm[Hg] Yixue Marlow DDS Work Phone: [facility] 03-05-2025 15:08-0400 Body temperature 98.91 [degF] Yixue Marlow DDS Work Phone: [facility] 03-05-2025 15:08-0400 Diastolic blood pressure 98 mm[Hg] Yixue Marlow DDS Work Phone: [facility] 03-05-2025 15:08-0400 Heart rate 86 /min Yixue Marlow DDS Work Phone: [facility] 03-05-2025 15:08-0400 Systolic blood pressure 146 mm[Hg] Yixue Marlow DDS Work Phone: [facility] 02-19-2025 14:10-0400 Body height 165.1 cm Yixue Marlow DDS Work Phone: [facility] 02-19-2025 14:10-0400 Body temperature 98.6 [degF] Yixue Marlow DDS Work Phone: [facility] 02-19-2025 14:10-0400 Diastolic blood pressure 76 mm[Hg] Yixue Marlow DDS Work Phone: [facility] 02-19-2025 14:10-0400 Heart rate 101 /min Priscilla Marlow DDS Work Phone: [facility] 02-19-2025 14:10-0400 Systolic blood pressure 126 mm[Hg] Priscilla Marlow DDS Work Phone: [facility] 01-08-2025 15:08-0400 Body mass index (BMI) [Ratio] 31.42 kg/m2 Basia Brandt PA Work Phone: [facility] 01-08-2025 15:08-0400 Body weight 80.47 kg Basia Karly PA Work Phone: [facility] 01-08-2025 15:08-0400 Diastolic blood pressure 76 mm[Hg] Basia Brandt PA Work Phone: [facility] 01-08-2025 15:08-0400 Systolic blood pressure 120 mm[Hg] Basia Brandt PA Work Phone: [facility] 10-04-2024 07:29-0500 Body height 165.1 cm Amy Love MD Work Phone: [facility] 10-04-2024 07:29-0500 Body mass index (BMI) [Ratio] 28.62 kg/m2 Amy Love MD Work Phone: [facility] 10-04-2024 07:29-0500 Body temperature 98.2 [degF] Amy Love MD Work Phone: [facility] 10-04-2024 07:29-0500 Body weight 78.02 kg Amy Love MD Work Phone: [place] [facility] 10-04-2024 07:29-0500 Diastolic blood pressure 92 mm[Hg] Amy Love MD Work Phone: [facility] 10-04-2024 07:29-0500 Heart rate 116 /min Amy Love MD Work Phone: [employer] 10-04-2024 07:29-0500 Respiratory rate 20 /min Amy Love MD Work Phone: [employer] 10-04-2024 07:29-0500 SaO2% (BldA) [Mass fraction] 96 % Amy Love MD Work Phone: [employer] 10-04-2024 07:29-0500 Systolic blood pressure 160 mm[Hg] Amy Love MD Work Phone: [employer] 08-28-2024 15:14-0500 Diastolic blood pressure 92 mm[Hg] Sanchez Mancilla MD Work Phone: [employer] 08-28-2024 15:14-0500 Systolic blood pressure 150 mm[Hg] Sanchez Mancilla MD Work Phone: [employer] 08-28-2024 14:05-0500 Body height 165.1 cm Sanchez Mancilla MD Work Phone: [employer] 08-28-2024 14:05-0500 Body mass index (BMI) [Ratio] 29.29 kg/m2 Sanchez Mancilla MD Work Phone: [employer] 08-28-2024 14:05-0500 Body temperature 97.9 [degF] Sanchez Mancilla MD Work Phone: [employer] 08-28-2024 14:05-0500 Body weight 79.83 kg Sanchez Mancilla MD Work Phone: [employer] 08-28-2024 14:05-0500 Heart rate 116 /min Sanchez Mancilla MD Work Phone: [employer] 08-28-2024 14:05-0500 Respiratory rate 20 /min Sanchez Mancilla MD Work Phone: [employer] 08-28-2024 14:05-0500 SaO2% (BldA) [Mass fraction] 99 % Sanchez Mancilla MD Work Phone: [employer] 07-09-2024 08:36-0500 Body height 165.1 cm Amisha Nguyen MD Work Phone: [employer] 07-09-2024 08:36-0500 Body mass index (BMI) [Ratio] 3 kg/m2 Amisha Nguyen MD Work Phone: [employer] 07-09-2024 08:36-0500 Body temperature 98.6 [degF] Amisha Nguyen MD Work Phone: [employer] 07-09-2024 08:36-0500 Body weight 8.16 kg Amisha Nguyen MD Work Phone: [employer] 07-09-2024 08:36-0500 Diastolic blood pressure 99 mm[Hg] Amisha Nguyen MD Work Phone: [employer] 07-09-2024 08:36-0500 Heart rate 106 /min Amisha Nguyen MD Work Phone: [employer] 07-09-2024 08:36-0500 Respiratory rate 16 /min Amisha Nguyen MD Work Phone: [employer] 07-09-2024 08:36-0500 SaO2% (BldA) [Mass fraction] 98 % Amisha Nguyen MD Work Phone: [employer] 07-09-2024 08:36-0500 Systolic blood pressure 146 mm[Hg] Amisha Nguyen MD Work Phone: [employer] 01-23-2023 18:06-0400 Hourly Rounding Ellie BAJWAU [facility] 01-23-2023 18:06-0400 Promise to Return Ellie OEDU [facility] 01-23-2023 17:21-0400 Hourly Rounding Ellie OEDU [facility] 01-23-2023 17:21-0400 Promise to Return Mbanefo OJUKWU [facility] 01-23-2023 16:21-0400 Hourly Rounding Mbanefo OJUKWU [facility] 01-23-2023 16:21-0400 Promise to Return Mbanefo OJUKWU [facility] 01-23-2023 14:00-0400 Blood Pressure Location Mbanefo OJUKWU [facility] 01-23-2023 11:45-0400 Heart rate 74 /min Mbanefo OJUKWU [facility] 01-23-2023 11:45-0400 SaO2% (BldA) [Mass fraction] 98 % Mbanefo OJUKWU [facility] 01-23-2023 11:45-0400 Diastolic blood pressure 87 mm[Hg] Mbanefo OJUKWU [facility] 01-23-2023 11:45-0400 Mean blood pressure 107 mm[Hg] Mbanefo OJUKWU [facility] 01-23-2023 11:45-0400 Systolic blood pressure 146 mm[Hg] Mbanefo OJUKWU [facility] 01-23-2023 11:45-0400 Body temperature 98.06 [degF] Mbanefo OJUKWU [facility] 01-23-2023 08:47-0400 gluc 192 mg/dL Mbanefo OJUKWU [facility] 01-23-2023 08:46-0400 Diastolic blood pressure 95 mm[Hg] Mbanefo OJUKWU [facility] 01-23-2023 08:46-0400 Heart rate 88 /min Mbanefo OJUKWU [facility] 01-23-2023 08:46-0400 Systolic blood pressure 155 mm[Hg] Mbanefo OJUKWU [facility] 01-23-2023 08:03-0400 Heart rate 83 /min Mbanefo OJUKWU [facility] 01-23-2023 08:03-0400 SaO2% (BldA) [Mass fraction] 98 % Mbanefo OJUKWU [facility] 01-23-2023 08:03-0400 Mean blood pressure 115 mm[Hg] Mbanefo OJUKWU [facility] 01-23-2023 08:02-0400 Body temperature 98.24 [degF] Mbanefo OJUKWU [facility] 01-23-2023 01:40-0400 Blood Pressure Location Mbanefo OJUKWU [facility] 01-23-2023 01:40-0400 Body temperature 98.06 [degF] Mbanefo OJUKWU [facility] 01-23-2023 01:40-0400 Heart rate 91 /min Mbanefo OJUKWU [facility] 01-23-2023 01:40-0400 Mean blood pressure 119 mm[Hg] Mbanefo OJUKWU [facility] 01-23-2023 01:40-0400 Respiratory rate 18 /min Mbanefo OJUKWU [facility] 01-23-2023 01:40-0400 SaO2% (BldA) [Mass fraction] 98 % Mbanefo OJUKWU [facility] 01-22-2023 20:59-0400 Heart rate 94 /min Mbanefo OJUKWU [facility] 01-22-2023 19:00-0400 Mean blood pressure 108 mm[Hg] Mbanefo OJUKWU [facility] 01-22-2023 15:33-0400 Respiratory rate 18 /min Mbanefo OJUKWU [facility] 01-22-2023 15:32-0400 Mean blood pressure 101 mm[Hg] Mbanefo OJUKWU [facility] 01-22-2023 11:35-0400 Heart rate 67 /min Mbanefo OJUKWU [facility] 01-22-2023 08:40-0400 gluc 215 mg/dL Mbanefo OJUKWU [facility] 01-22-2023 04:53-0400 Mean blood pressure 97 mm[Hg] Mbanefo OJUKWU [facility] 01-21-2023 18:42-0400 Respiratory rate 15 /min Mbanefo OJUKWU [facility] 01-21-2023 17:54-0400 Respiratory rate 21 /min Mbanefo OJUKWU [facility] 01-21-2023 17:45-0400 Respiratory rate 16 /min Mbanefo OJUKWU [facility] 01-21-2023 16:20-0400 Heart rate 87 /min Mbanefo OJUKWU [facility] Encounters Encounter Date Encounter Type Care Provider Facility Start: 04-24-2025 End: 04-24-2025 Encounter identifier Priscilla Marlow DDS [facility] Phone[facility] Start: 04-24-2025 ambulatory Priscilla Marlow DDS [facility] Start: 03-20-2025 End: 03-20-2025 Encounter identifier Priscilla Marlow DDS Work Phone[facility] Start: 03-05-2025 End: 03-05-2025 Encounter identifier Priscilla Marlow DDS Work Phone[facility] Start: 02-19-2025 End: 02-19-2025 Encounter identifier Priscilla Marlow DDS Work Phone[facility] Start: 01-08-2025 End: 01-08-2025 Patient encounter procedure Basia BLOOM Work Phone: [facility] Work Phone: Start: 01-08-2025 End: 01-08-2025 Periodic preventive med est patient 40-64yrs Basia BLOOM Work Phone: [facility] Comment on above: Yeast infection (Rosie aliza Dx); Well woman exam with routine gynecological exam; Acute vaginitis Start: 01-08-2025 End: 01-08-2025 ambulatory BASIA BRANDT Not Available Start: 01-08-2025 End: 01-08-2025 Bamboo flowsheet Basia BLOOM Work Phone: [facility] Start: 01-08-2025 End: 01-11-2025 Bamboo flowsheet Basia BLOOM Work Phone: [facility] Start: 01-08-2025 End: 01-11-2025 Clinisync Result Encounter Basia BLOOM Work Phone: [facility] Unsolicited Start: 01-08-2025 End: 06-12-2025 External Result Encounter Leland Claros DO Work Phone: [facility] Unsolicited Start: 10-04-2024 End: 10-04-2024 Emergency department patient visit Amy Love MD Work Phone: [facility] Comment on above: Viral illness (Prima ry Dx) Start: 08-28-2024 End: 08-28-2024 Emergency department patient visit Sanchez Mancilla MD Work Phone: [facility] Comment on above: Blood glucose elevat ed (Primary Dx); Hyperglycemia due to diabetes mellitus (HCC); Dehydration Start: 07-09-2024 End: 07-09-2024 Emergency department patient visit Amisha Nguyen MD Work Phone: [facility] Comment on above: Infective otitis ext [place] of left ear (Primary Dx); Herpes zoster without complication Start: 02-05-2023 End: 02-05-2023 ambulatory [facility] Start: 01-23-2023 ambulatory Facility:1 [id number] Start: 01-22-2023 ambulatory Facility:1 [id number] Start: 01-21-2023 End: 01-23-2023 ambulatory Abhishek Monterroso Facility:[facility] Start: 01-21-2023 End: 01-23-2023 Observation Ellie LeloJUKWU [facility] Start: 12-12-2022 End: 12-12-2022 Emergency department patient visit Pako Metzger Facility:[facility] Start: 06-15-2022 End: 06-15-[address] LELAND CLAROS Facility:[facility] Start: 04-27-2022 End: 04-27-2022 ambulatory MIKEY DAMICO Facility:[facility] Start: 04-21-2022 End: 04-21-[address] GENTRY CARRILLO Facility:[facility] Start: 04-15-2022 End: 04-15-[address] LELAND CLAROS Facility:[facility] Start: 01-04-2022 End: 01-05-[address] GENTRY CARRILLO Facility:[facility] Start: 01-03-2022 End: 01-03-2022 ambulatory LUTHER NGUYEN Facility:[facility] Start: 12-10-2021 End: 12-12-[address] GENTRY CARRILLO Facility:[facility] Start: 12-08-2021 End: 12-09-[address] GENTRY CARRILLO Facility:[facility] Start: 12-07-2021 End: 12-07-[address] BRI MARTE Facility:[facility] Procedures Date Procedure Procedure Detail Performing Clinician Start: 04-24-2025 End: 04-24-2025 Documentation of current medications Yixjayda Marlow DDS Work Phone: Start: 04-24-2025 End: 04-24-2025 nutritional counseling for control of dental disease Yixue Marlow DDS Work Phone: Start: 04-24-2025 End: 04-24-2025 Post Op Visit Dental Yixue Marlow DDS Work Phone: Start: 03-20-2025 End: 03-20-2025 Documentation of current medications Yixue Marlow DDS Work Phone: Start: 03-20-2025 End: 03-20-2025 extraction, erupted tooth or exposed root (elevation and/or forceps removal) Yixue Marlow DDS Work Phone: Start: 03-20-2025 End: 03-20-2025 nutritional counseling for control of dental disease Yixue Marlow DDS Work Phone: Start: 03-05-2025 End: 03-05-2025 Documentation of current medications Yixue Marlow DDS Work Phone: Start: 03-05-2025 End: 03-05-2025 extraction, erupted tooth or exposed root (elevation and/or forceps removal) Yixue Marlow DDS Work Phone: Start: 03-05-2025 End: 03-05-2025 nutritional counseling for control of dental disease Yixue Marlow DDS Work Phone: Start: 02-19-2025 End: 02-19-2025 Documentation of current medications Yixue Marlow [employer] Work Phone: Start: 02-19-2025 End: 02-19-2025 extraction, erupted tooth or exposed root (elevation and/or forceps removal) Priscilla Marlow [employer] Work Phone: Start: 02-19-2025 End: 02-19-2025 extraction, erupted tooth requiring removal of bone and/or sectioning of tooth, and including elevation of mucoperiosteal flap if indicated Priscilla Marlow [employer] Work Phone: Start: 02-19-2025 End: 02-19-2025 oral hygiene instructions Priscilla Marlow [employer] Work Phone: Start: 01-08-2025 RECURRENT VAGINITIS (HTRX) Leland Claros Work Phone: Start: 01-08-2025 IGP,APTIMA HPV,AGE GDLN Basia BLOOM Work Phone: Start: 10-04-2024 COVID-19, RAPID Amy parker MD [...] Work Phone: Percutaneous coronar y intervention Ellie LindJUKWU Comment on above: stent to LCX Plan of Treatment Date Care Activity Detail Author Start: 01-14-2026 End: 01-14-2026 Patient encounter procedure 01/14/2026 3:00 PM EDT Office Visit [facility] [address] [place] [id number] Leland Claros DO [address] [place] [address] [facility] Start: 04-24-2025 End: 04-24-2025 [facility] Work Phone: Start: 03-20-2025 End: 03-20-2025 [facility] Work Phone: Start: 03-05-2025 End: 03-05-2025 [facility] Work Phone: Start: 02-19-2025 [facility] Work Phone: Start: 01-08-2025 End: 01-08-2025 Patient encounter procedure 01/08/2025 3:00 PM EDT Office Visit [facility] [address] [place] [id number] Basia Brandt PA [address] [place] [address] Arrived [facility] Comment on above: Arrived Start: 04-02-2024 COVID-19 Vaccine ( season) COVID-19 Vaccine ( season) [facility] Start: 04-02-2024 COVID-19 Vaccine ( season) COVID-19 Vaccine ( season) [facility] Start: 03-02-2024 Influenza vaccination Flu vaccine (# 1) [facility] Start: 1997 DTaP/Tdap/Td vaccine (1 - Tdap) DTaP/Tdap/Td vaccine (1 - Tdap) [facility] End: 08-28-2024 Blood gas, venous Blood gas, venous Lab Routine One Time for 1 Occurrences starting 08/28/2024 until 08/28/2024 [facility] Comment on above: One Time for 1 Occur rences starting 08/28/2024 until 08/28/2024 EKG 12 Lead EKG 12 Lead ECG STAT 08/28/2024 4:47 PM EST [employer] Payers Date Payer Category Payer Private Health Insurance [employer] [id number] 2022 Medicaid [id number] 1978 Unknown [id number] [id number]. 593 1978 Unknown [id number] 2.16840.1.294970.3.579.2. 59 1978 Unknown [id number] 2.16840.1.188334.3.579.2. 593 1978 Unknown [id number] 2.16840.1.751155.3.579.2. 593 1978 Unknown [id number] 2.16.840.1.912359.3.579.2. 593 1978 Unknown [id number] 2.16.840.1.622149.3.579.2. 593 1978 Unknown [id number] 2.16.840.1.020998.3.579.2. 593 1978 Unknown [id number] 2.16.840.1.021027.3.579.2. 593 1978 Unknown [id number] 2.16.840.1.742988.3.579.2. 593 1978 Unknown [id number] 2.16.840.1.922178.3.579.2. 727 1978 Unknown [id number] 2.16.840.1.011252.3.579.2. 727 1978 Unknown [id number] 2.16.840.1.187571.3.579.2. 356 1978 Unknown [id number] 2.16.840.1.686131.3.579.2. 356 1978 Unknown [id number] 2.16.840.1.824141.3.579.2. 174 1978 Unknown [id number] 2.16.840.1.340387.3.579.2. 174 1978 Unknown [id number] 2.16.840.1.309246.3.579.2. 174 1978 Unknown [id number] 2.16.840.1.218319.3.579.2. 1259 1978 Unknown [id number] 2.16.840.1.098927.3.579.2. 716 1959 Unknown [id number] Social History Date Type Detail Facility Start: 02-19-2025 Tobacco Never smoker [facility] Comment on above: denies Tobacco smoking status No Smoking Status Entered [facility] Start: 07-09-2024 End: 01-08-2025 Sex Assigned At Female [facility] Start: 06-03-2023 End: 07-09-2024 Tobacco smoking status NHIS Never smoked tobacco [facility] Start: 06-03-2023 End: 07-09-2024 Tobacco use and exposure Smokeless tobacco non-user [facility] Start: 07-09-2024 End: 10-04-2024 Alcoholic beverage intake Lifetime non-drinker (finding) [facility] Start: 1980 Sex assigned at Female [facility] Start: 07-21-2021 Gender identity Identifies as female gender (finding) [facility] Start: 07-09-2024 End: 01-08-2025 History of Social function [facility] How often to you hav e a drink containing alcohol? Never [facility] How many standard drinks containing alcohol do you have on a typical day? Patient does not drink [facility] Start: 06-03-2023 End: 01-08-2025 Alcoholic beverage intake Current drinker of alcohol (finding) [facility] How often to you hav e a drink containing alcohol? Monthly or less [facility] How many standard drinks containing alcohol do you have on a typical day? 1 or 2 [facility] Start: 06-03-2023 Alcohol Comment caffeine: 1-2 cups per day [facility] Start: 1980 Sex assigned at Not on file [facility] Sexual Orientation Straight or heterosexual [facility] Work Phone: NEGATED: Highlighted rowStart: KELVIN History of tobacco use Passive smoker [facility] NEGATED: Highlighted rowStart: 02-19-2025 End: 04-24-2025 Tobacco smoking status NHIS Unknown if ever smoked [facility] NEGATED: Highlighted rowStart: 02-19-2025 History of tobacco use Current non-smoker [facility] Medical Equipment Procedure Code Equipment Code Equipment Origin al Text Equipment Identifier Dates PCI Unknown 01/22/23 Non Biological Left Circumflex Coronary Artery FDA Start: 01-22-2023 Comment on above: 2.75 mm x 28 mm Xien ce Coronary stent to LAD Functional Status Date Assessment Result Facility 01-21-2023 Functional Status No [facility] 01-21-2023 Functional Status [facility] Clinical Notes 01-05-2022 to 04-24-2025 Note Date & Type Note Facility 04-24-2025 History of Presen t illness Narrative Encounter Date POV [facility] Work Phone: 1(269) 326-753508-19-2025 History of Present illness Narrative* Encounter Date Complaint History Of Prese nt Illness ext [facility] Work Phone: 1(210) 314-298708-04-2025 History of Present illness Narrative* Encounter Date Complaint History Of Prese nt Illness ext [facility] Work Phone: 1(618) 473-742707-21-2025 History of Present illness Narrative* Encounter Date Complaint History Of Prese nt Illness extraction extraction [facility] Work Phone: 1(724) 260-750606-09-2025 History of Present illness Narrative* Celeste Kaye, WELDING PROCESS ENGINEER - 01/08/2025 3:00 PM EDT Reason for Appointment: Patient ID: Escobar Ortega is a 44 y.o. female who presents for Well Women Visit Patient presents today for Annual Exam. MEDICATIONS No current outpatient medications ALLERGIES Allergies Allergen Reactions Penicillins Rash, Hives and Unknown Other Reaction(s): Other PROBLEMS Active Ambulatory Problems Diagnosis Date Noted No Active Ambulatory Problems Resolved Ambulatory Problems Diagnosis Date Noted No Resolved Ambulatory Problems Past Medical History: Diagnosis Date Diabetes mellitus (CMS/HCC) HTN (hypertension) ([facility]) HISTORY PAST MEDICAL HISTORY SOCIAL HISTORY Past Medical History: Diagnosis Date Diabetes mellitus (CMS/HCC) HTN (hypertension) ([facility]) Social History Tobacco Use Smoking [...] normal. Genitourinary Comments: Findings consistent with vaginal heather Cervical discharge present. Breasts: Breasts are soft. [...] nursing note reviewed. Exam conducted with a neonatal intensive care unit nurse present. Vitals: Estimated body mass index is 31.42 kg/m as calculated from the following: Height as of 22: 5' 3 . Weight as of this [...] behalf of: MERLE Mendoza documented in this encounterCox [id number] Hospital Discharge instructions* Discharge Instructions* Sanchez Mancilla MD - 08/28/2024 5:26 PM EST RESTART YOUR METFORMIN. INCREASE YOUR BASAGLAR (NIGHTTIME INSULIN) TO 40 UNITS. Call your doctor in the morning and he will have an appointment for you sometime tomorrow. Drink plenty of water, follow diabetic diet. Monitor your blood sugar and keep a log to take to your doctor.Return to the emergency department if you develop a blood sugar greater than 600, abdominal pain, vomiting, fever, other concerning symptoms. * Attachments The following attachments cannot be sent through Care Everywhere. * Hyperglycemia: General Info ([place]ese) documented in this [facility]Bon [facility]Card[facility] Clinic Note Chief Complaint: establish care HPI: Escobar Ortega [...] history of Coronary artery disease, Diabetes mellitus ([facility]), Hyperlipidemia, Hypertension, and Myocardial infarction ([facility]). Surgical History She has a past surgical [...] Aspirin indefinitely -High intensi (more content not included)...[facility] 02-05-2023 NoteNew patient here to establish care. Ref from Dr. Carrillo for recent NSTEMI w/ PCI at [facility]. She wanted to see cardiology closer to home. She was started on Brilinta s/p PCI and is tolerating it well.[facility] 01-24-2023 NoteAdmission and Discharge Information Admitting Physician - Bobby OBANDO MDfo Consulting Physician - Kriss HAIDER, Abhishek [...] shoulder pain. She was subsequently admitted to [facility] with acute NSTEMI, elevated troponin, hypertensive urgency, right shoulder pain. She was treated with aspirin, Brilinta, Lipitor, nitroglycerin, Lovenox. She was also treated with lisinopril and Lopressor. She was seen in consultation by the library page and underwent echocardiogram that was essentially normal. [...] primary care physician as well as the library page accordingly. Physical Exam General: alert, no acute [...] 69.9 % Lymph Auto - 24.9 % [place]han Auto - 4.6 % Eos Auto - 0.2 % Basophil Auto - 0.4 % Neutro Absolute - 7.4 E9/L Lymph Absolute - 2.6 E9/L [place]han Absolute - 0.5 E9/L Eos Absolute - [...] - 255 mg/dL POC Device SN - [id number] POC User ID - [id number] POC Username - LESLY PARR CBC w/ [...] Protein - NEGATIVE1 UA (more content not included)...[facility] Result Comment: Electronically Signed By: Ellie OBANDO MD\.br\Date and Time Signed: 01/24/23 19:32 [id number] Evaluation + Plan noteExtracted from: Title:APSO Note Author:Ellie OBANDO MD Date: [...] Lipitor, lisinopril, Lopressor. Treated with Lovenox. Ordered: [facility] Hospital Care/Day Moderate 35 Minutes 11109 2. Coronary artery disease (I25.10: Atherosclerotic heart disease of [place] coronary artery without angina pectoris) As seen on cardiac catheterization. Patient has coronary artery disease with mid left circumflex artery occlusion requiring 1 drug-eluting stent placement on 01/22/2023. Continue on aspirin, Brilinta, Lipitor, lisinopril and Lopressor. Ordered: [facility] Hospital Care/Day Moderate 35 Minutes 52970 3. Chest pain (R07.9: Chest pain, unspecified) Secondary to above. Resolved. Ordered: [facility] Hospital Care/Day Moderate 35 Minutes 68309 4. Elevated troponin (R77.8: Other specified abnormalities of plasma proteins) Secondary to above. Resolved. Ordered: [facility] Hospital Care/Day Moderate 35 Minutes [id number] 5. Hypertensive urgency (I16.0: Hypertensive urgency) Resolved. Continue on lisinopril and metoprolol. Ordered: [facility] Hospital Care/Day Moderate 35 Minutes 47430 6. Right shoulder pain (M25.511: Pain in right shoulder) Secondary to above #1. With atypical presentation. Ordered: [facility] Hospital Care/Day Moderate 35 Minutes [id number] 7. Leukocytosis (D72.829: Elevated white blood cell [...] deep vein thrombosis (DVT) prophylaxis (Z79.899: Other gm (current) drug therapy) SCDs. Disposition: Home either today or in a.m. pending cardiology final recommendations. I discussed the diagnosis and plan of care with the patient at the bedside. Moderate level of MDM based on addressing above issues. This documentation was transcribed using voice recognition software. Several attempts were made to ensure accuracy. However inadvertent computerized traffic maintenance officer errors may be present. Ellie Obando. Hospitalist. [...] w/ Contrast [id number] Referral to Resource Center Extracted from: Title:Procedure Note Heart & [...] deep vein thrombosis (DVT) prophylaxis (Z79.899: Other gm (current) drug therapy) Orders: ticagrelor, 180 mg [...] deep vein thrombosis (DVT) prophylaxis (Z79.899: Other mcc (current) drug therapy) Orders: ticagrelor, 180 mg = 2 tab(s), Tab, Oral, Once, Stop date 01/22/23 14:32:00 EDT, NOW, Start date 01/22/23 14:32:00 EDT, 01/22/23 14:32:00 EDT ticagrelor, Tab, Misc, Once, Stop date 01/22/23 14:32:48 EDT, Physician Stop, 01/22/23 14:32:48 EDT CV Cardiovascular Extracted from: Title:APSO Note Author:GAGE HAIDER, Ellie Date: 43-year-old female noncigarette smoker with history of diabetes mellitus, hypertension, obesity presented with chest pain, right shoulder pain and admitted with chest pain, elevated troponin, leukocytosis, hyperglycemia, hyponatremia, metabolic acidosis, right shoulder pain. 1. Chest pain (R07.9: Chest pain, unspecified) Chest pain secondary to acute coronary syndrome. Resolved. Continue on aspirin, nitroglycerin as needed, morphine and oxygen. Cardiology consult pending. Ordered: [facility] Hospital Care/Day Moderate 35 Minutes [id number] 2. Elevated troponin (R77.8: Other specified abnormalities of plasma proteins) Elevated troponin secondary to NSTEMI. Cardiology consult pending. Continue on aspirin, Lipitor, Lovenox. Echocardiogram pending. Ordered: [facility] Hospital Care/Day Moderate 35 Minutes [id number] 3. NSTEMI (non-ST elevation myocardial infarction) (I21.4: Non-ST elevation (NSTEMI) myocardial infarction) Acute NSTEMI present on admission. Cardiology consult pending. Echocardiogram pending. Continue on aspirin, Lipitor, lisinopril, Lovenox. Ordered: [facility] [facility] Hospital Care/Day Moderate 35 Minutes 82013 4. Hypertensive urgency (I16.0: Hypertensive urgency) Resolved. Continue lisinopril. Ordered: [facility]/Day Moderate 35 Minutes 38542 5. Right shoulder pain (M25.511: Pain in right shoulder) Resolved. Ordered: [facility] Hospital Care/Day Moderate 35 Minutes 71590 6. Leukocytosis (D72.829: Elevated white blood cell [...] deep vein thrombosis (DVT) prophylaxis (Z79.899: Other mcc (current) drug therapy) Lovenox. Disposition: Pending echocardiogram and cardiology consult. I discussed the diagnosis and plan of care with the patient at the bedside. Moderate level of MDM based on addressing above issues. This documentation was transcribed using voice recognition software. Several attempts were made to ensure accuracy. However inadvertent computerized traffic maintenance officer errors may be present. Ellie Obando. Hospitalist. [...] Ordered: Initial Hospital Care/Day High 75 Minutes 38832 2. Elevated troponin (R77.8: Other specified abnormalities of plasma proteins) Elevated troponin mild. We will complete serial cardiac enzymes. Started patient on aspirin. If troponin trends up we will start patient on Lovenox or IV heparin. Check fasting lipid profile. Echocardiogram. Ordered: Initial Hospital Care/Day High 75 Minutes 43141 3. Hypertensive urgency (I16.0: Hypertensive urgency) Continue lisinopril. IV hydralazine as needed. Ordered: Initial Hospital Care/Day High 75 Minutes 92947 4. Right shoulder pain (M25.511: Pain in right shoulder) Musculoskeletal in origin. Started patient on as needed pain medications. Ordered: Initial Hospital Care/Day High 75 Minutes 46326 5. Leukocytosis (D72.829: Elevated white blood cell count, unspecified) Secondary to steroid effect. Ordered: Initial Hospital Care/Day High 75 Minutes 28541 6. Hyperglycemia (R73.9: Hyperglycemia, unspecified) Secondary to [...] deep vein thrombosis (DVT) prophylaxis (Z79.899: Other gm (current) drug therapy) Lovenox. Disposition: The patient [...] made to ensure accuracy. However inadvertent computerized traffic maintenance officer errors may be present. Ellie Obando. Hospitalist. [...] deep vein thrombosis (DVT) prophylaxis (Z79.899: Other mcc (current) drug therapy) Orders: nitroglycerin, 0.4 mg [...] ED Physician consult Hospitalist for continued care [facility]06-24-2023 Hospital Discharge instructions Patient Education 01/23/2023 09:22:37 CV - Cardiovascular PCI Discharge Instructions (CUSTOM) [place], [place] Cardiovascular PCI DISCHARGE INSTRUCTIONS Diet: Resume [...] hours post procedure: Actoplus MetGlucophageGlucophage XR GlucovanceAvandametFortamet Bbu-hjrkwtoarIlnrisBtlu-cennpokao GlumetzaJanumetMetaglip RiometGlycomet Minimal pain, soreness and/or discomfort is expected. If you are prescribed an aspirin and/or antiplatelet (such as Plavix, Brilinta or Effient) do NOT stop taking these medications for any reason without talking to your library page Site Care: Do not remove dressing for [...] are interested in smoking cessation, contact [facility] at [phone], ext. [phone]. In the event you are unable to reach your physician, please call [facility] at [phone] and the cylinder press operator will assist you. Seek Medicare Care [...] Up Care 01/21/2023 16:19:43 With:Abhishek Monterroso Address: [address] [place] [address]- Business (1) When:2 weeks Comments:Call for followup appointment With:Gentry Carrillo Address: [facility] [place] [address] Business (1) When:01/27/2023 09:30:00 [facility]06-24-2023 NoteProcedure [facility] poss PCI via right radial Patient [...] deep vein thrombosis (DVT) prophylaxis (Z79.899: Other mcc (current) drug therapy) Orders: ticagrelor, 180 mg = 2 tab(s), Tab, Oral, Once, Stop date 01/22/23 14:32:00 EDT, NOW, Start date 01/22/23 14:32:00 EDT, 01/22/23 14:32:00 EDT ticagrelor, Tab, Misc, Once, Stop date 01/22/23 14:32:48 EDT, Physician Stop, 01/22/23 14:32:48 EDT [facility] HospitalComment on above:Result Comment: Electronically Signed By: Kriss HAIDER, Abhishek Hagan\.brenna\Date and Time Signed: 01/22/23 22:12 [id number] NoteEchocardiology Procedure Exam Date/Time Accession # Ordering Echo Transthoracic w/ 01/22/2023 11:42 EDT [id number] Ellie OBANDO MD Contrast CPT code 61221 36081 Reason for Exam (Echo Transthoracic w/ Contrast) Chest pain Report [facility] [address] [place] [address] Adult Echocardiogram Report Name: ESCOBAR ORTEGA Study Date: 01/22/2023 09:56 AM BP: 129/81 mmHg Patient Location: [address] [place] [address] HR: 89 : 1980 Gender: Female Height: 65 in Age: 43 yrs Ethnicity: T Weight: 183 lb Reason For Study: Chest [...] mmHg FINAL REPORT Dictated: 01/22/2023 9:56 am Kriss HAIDER, Abhishek Hagan Signed (Electronic Signature): 01/22/2023 12:06 pm Signed by: Abhishek Monterroso MD Transcribed by: [facility] Technologist: [facility]06-22-2023 Note Chief Complaint pt states just seen for arm pain, given rx steroid. 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 History of Present Illness 43-year-old female [...] Lymph Auto: 8.6 % Low (01/21/23 16:35:00) [place] Auto: 4.8 % (01/21/23 16:35:00) Eos Auto: 0.1 % (01/21/23 16:35:00) Basophil Auto: 0.3 % (01/21/23 16:35:00) Neutro Absolute: 12.3 E9/L High (01/21/23 16:35:00) Lymph Absolute: 1.2 E9/L (01/21/23 16:35:00) [place] Absolute: 0.7 E9/L (01/21/23 16:35:00) Eos Absolute: [...] Urobilinogen: 0.2 (01/21/23 17:53 (more content not included)...[facility] HospitalComment on above:Result Comment: Electronically Signed By: GAGE HAIDER, Ellie\.br\Date and Time Signed: 01/21/23 19:11 [id number] Note PROCEDURE: XR GI UPPER AIR KUB [...] Electronically authenticated by: MATTHEW SILVER Date: 2022-01-05 11:30[facility]06-06-2022 NotePROCEDURE: XR GI UPPER AIR KUB [...] Electronically authenticated by: MATTHEW SILVER Date: 2022-01-05 11:30[facility]06-06-2022 NotePROCEDURE: XR GI UPPER AIR KUB [...] Electronically authenticated by: MATTHEW SILVER Date: 2022-01-05 11:30[facility] note* Clinical Note Date No Information [facility] Work Phone: Discharge summary* Clinical Note Date No Information [facility] Work Phone: Evaluation note* Diagnosis Infective otitis externa of left ear- Primary Herpes zoster without complication [facility] Diagnosis Blood glucose elevated- Primary Other abnormal glucose Hyperglycemia due to diabetes mellitus (HCC) Dehydration [facility]* Diagnosis Viral illness- Primary Unspecified viral infection, in conditions classified elsewhere and of unspecified site [facility]* Diagnosis Yeast infection- Primary Well woman exam with routine gynecological exam Routine gynecological examination Acute vaginitis Unspecified vaginitis and vulvovaginitis documented in this encounter [facility]* Type Assessment Date No Information [facility] Work Phone: History and physical note* Clinical Note Date No Information [facility] Work Phone: History of Past illness Narrative* Condition Effective Dates (start - stop) O utcome No Information [facility] Work Phone: Hospital course Narrative No data available for this section [facility]* Attachments The following attachments cannot be sent through Care Everywhere. * Shingles ([place]) * Otitis Externa ([place]) [facility]* Attachments The following attachments cannot be sent through Care Everywhere. * URI (Upper Respiratory Infection): Viral ([place]) [facility]* Date Instruction Additional Infor mation No Information [facility] Work Phone: Progress note No data available for this section [facility]* Clinical Note Date No Information [facility] Work Phone: Reason for referral (narrative)* Reason For Referral No Information [facility] Work Phone: Review of systems Narrative - Reported* System Pos/Neg Findings No Information [facility] Work Phone: Summary Purpose Family History Family Member Type Diagnosis Age At Onset No Information Advance Directives Directive Yes / No Effective Date File Name No Information Chief Complaint and Reason for Visit From encounter dated '02/19/2025 13:45'. extraction (chief complaint). Description: extraction From encounter dated '03/05/2025 13:46'. ext (chief complaint) From encounter dated '03/20/2025 10:06'. ext (chief complaint) From encounter dated '04/24/2025 10:05'. POV (chief complaint) Additional Source Comments INFORMATION SOURCE (unrecogn ized section and content) DATE CREATED AUTHOR 06/22/2022 [facility] DATE CREATED AUTHOR AUTHOR'S ORGANIZ ATION 01/28/2023 [facility] DATE CREATED AUTHOR AUTHOR'S ORGANIZ ATION 03/15/2023 [facility] DATE CREATED AUTHOR AUTHOR'S ORGANIZ ATION 05/15/2023 [facility] DATE CREATED AUTHOR AUTHOR'S ORGANIZ ATION 10/05/2024 [facility] DATE CREATED AUTHOR AUTHOR'S ORGANIZ ATION 01/09/2025 [facility] EPIC DATE CREATED AUTHOR AUTHOR'S ORGANIZ ATION 04/25/2025 [facility] Patient Care team informatio n (unrecognized section and content) Gambling Box Person Relationship Specialty Start Date End Date Gentry Carrillo MD [address] [place] [address] PCP - General Family Medicine 07/09/24 Gambling Box Person Relationship Specialty Start Date End Date Gentry Carrillo MD [address] [place] [address] PCP - General Family Medicine 07/09/24 Gambling Box Person Relationship Specialty Start Date End Date Gentry Carrillo MD [address] [place] [address] PCP - General Family Medicine 07/09/24 Gambling Box Person Relationship Specialty Start Date End Date Gentry Carrillo MD [address] [place] [address] PCP - General Family Medicine 11/16/24 Gambling Box Person Relationship Specialty Start Date End Date Gentry Carrillo MD [address] [place] [address] PCP - General Family Medicine 11/16/24 Gambling Box Person Relationship Specialty Start Date End Date Gentry Carrillo MD [address] [place] [address] PCP - General Family Medicine 11/16/24 Name Effective Dates (start - stop) Status Members No Information Reason for Visit (unrecogniz ed section and content) Reason Comments Ear Pain Left ear pain for 3 weeks. Worse since last night. Reason Comments Hyperglycemia Pt blood sugars have been running high for a week Reason Comments Generalized Body Aches Started yesterday Reason Comments Well Women Visit Ordered Prescriptions (unrec ognized section and content) [...] BE BASED ON THE PRIMARY CLINICAL RECORDS. [employer] [facility]. provides no warranty or guarantee of the accuracy or completeness of information in this document.
--- OUTSIDE RECORDS SUMMARY | 2025-05-12 13:46 | XMS_ITS | Encounter Summary ---
Author Organization [facility] tem Address [id number] [address] [place] [address] Care Team Providers Care Kennel Operator Name Role Phone Gentry Wolf MD Primary Care Provider [phone] Reason for Visit * Reason Onset Date Comments Med Refill Med Refill 12/03/2020 Encounter Details Date Type Department Care Team (Late st Contact Info) Description 11/27/2020 Refill Maternal- Medicine at [facility] [address] [place] [address] Marianne Medeiros M, QUALITY REVIEW TRAINER-FORENSIC ECONOMIST [address] [facility] [address] [place] [address] Pre-existing type 2 diabetes mellitus in in [...] documented as of this encounter Care Teams Kennel Operator Relationship Specialty Start Date End Date Gentry Wolf MD PCP - General Family Medicine 06/22/19 documented as of this encounter
--- OUTSIDE RECORDS SUMMARY | 2025-05-12 13:46 | XMS_ITS | Clinical Summary ---
Author Organization [facility] Address [address] [place] [address] Care Team Providers Care Mental Health Clinician Name Role Phone Gentry Wolf MD Primary Care Provider [phone] Allergies Active Allergy Reactions Criticality Noted Date [...] COVID-19 Vaccine (1 - 2023-2 5 season) 2025 Influenza Vaccine (#1) 2025 Zoster Vaccines (1 [...] patient's age to complete this topic Insurance [facility] MEDICA[facility] Care Teams Mental Health Clinician Relationship Specialty Start Date End Date Gentry Wolf MD [address] [facility] [address] [address] PCP - General 02/04/23
--- NOTE | 2025-05-12 13:47 | ECG_ITS ---
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 Measurements Intervals [place] Rate: 87 P: 58 DE: 150 QRS: 26 QRSD: 74 T: 15 QT: 374 QTc: 418 Interpretive Statements 1100 Sinus rhythm 8102 Low QRS voltage in chest leads 9120 atypical ECG Compared to ECG 08/09/2023 17:50:46 No significant changes Electronically Signed On 05-12-2025 14:45:29 EDT by KINGA BREEN M.D.
--- NOTE | 2025-05-12 13:52 | ED.GENADUL1 ---
HPI HPI - General Adult General Chief complaint: Arrhythmia/Palpitations Stated complaint: HEART PALPITATIONS SHORTNESS OF BREATH Time Seen by Provider: 05/12/25 13:37 Source: patient Mode of arrival: walk-in History of Present Illness HPI narrative: 45-year-old female presents to the emergency department for chest pain. She has been having it on and off for 2 weeks, primarily when she is exerting herself such as walking. This time she has had it for about 3 hours continuously. She took aspirin at home as well as nitroglycerin. The nitroglycerin helped a little bit but it did not go away completely. She had a heart attack 2 years ago and states she has 1 stent. She does not regularly see a finisher brush. No fever cough or trauma. Related Data Home Medications ?Medication ?Instructions ?Recorded ?Confirmed aspirin 81 mg tablet,delayed 81 mg PO DAILY 05/25/23 05/12/25 release atorvastatin 80 mg tablet 80 mg PO DAILY 05/25/23 05/12/25 ticagrelor 90 mg tablet (Brilinta) 90 mg PO BID 05/25/23 05/12/25 nitroglycerin 0.4 mg sublingual 0.4 mg sublingual Q5M PRN chest 08/09/23 05/12/25 tablet pain insulin aspart U-100 100 unit/mL 60 unit subcut BID 10/22/24 05/12/25 (3 mL) subcutaneous pen insulin aspart U-100 100 unit/mL 5 unit subcut Q6H 10/22/24 05/12/25 subcutaneous solution lisinopril 20 mg tablet 20 mg PO DAILY 05/12/25 05/12/25 Previous Rx's ?Medication ?Instructions ?Recorded hydroxyzine HCl 25 mg tablet 25 mg PO BID PRN anxiety #20 tabs 05/01/23 Allergies Allergy/AdvReac Type Severity Reaction Status Date / Time penicillin G AdvReac Intermediate Hives Verified 10/22/24 10:59 Opioid HPI Opioid Management Most Recent Opioid Data: Last Pain Scale 10 01/20/23, 14:12 Review of Systems ROS Narrative A ten point review of systems is negative except as noted above. PFSH PFSH Social History Smoking status: Never smoker Little interest or pleasure in doing things: not at all Feeling down, depressed, or hopeless: not at all Exam Narrative Exam Narrative: Nurses note and vital signs reviewed and patient is not hypoxic. General:The patient appears well and in no apparent distress.Patient is resting comfortably on cart. Skin:Warm, dry, no pallor noted.There is no rash noted. Head:Normocephalic, atraumatic Eye: Normal conjunctiva, no drainage Ears, Nose, Mouth, and Throat: oral mucosa is moist. Nares patent. Cardiovascular:Regular Rate and Rhythm Respiratory:Patient is in no distress, no accessory muscle use, lungs are clear to auscultation, no wheezing, rales or rhonchi Back:non-tender GI: Soft and nontender Musculoskeletal: The patient has no evidence of calf tenderness, no pitting edema, symmetrical pulses noted bilaterally Neurological:A&O, normal speech Psychiatric:Cooperative Constitutional Vital Signs, click to edit/add: Last Vital Signs Temp 98.8 F 05/12/25 13:41 Pulse 92 H 05/12/25 15:30 Resp 19 05/12/25 15:30 BP 148/94 H 05/12/25 15:15 Pulse Ox 98 05/12/25 15:30 O2 Del Method Room Air 05/12/25 13:41 Course Vital Signs Vital signs: Vital Signs Temperature 98.8 F 05/12/25 13:41 Pulse Rate 86 05/12/25 13:41 Respiratory Rate 22 H 05/12/25 13:41 Blood Pressure 190/98 H 05/12/25 13:41 Pulse Oximetry 96 05/12/25 13:41 Oxygen Delivery Method Room Air 05/12/25 13:41 Temperature 98.8 F 05/12/25 13:41 Pulse Rate 92 H 05/12/25 15:30 Respiratory Rate 19 05/12/25 15:30 Blood Pressure 148/94 H 05/12/25 15:15 Pulse Oximetry 98 05/12/25 15:30 Oxygen Delivery Method Room Air 05/12/25 13:41 Medical Decision Making [facility] Narrative Medical decision making narrative: EKG shows no acute findings and 2 troponins are negative, 17 and 21. She continues to have pain despite nitroglycerin. Nitroglycerin seems to improve her pain. Her symptoms are consistent with unstable angina and should be admitted for observation. Case discussed with Dr. Castrejon and the patient is given a dose of Lovenox here. Treatment diagnosis and disposition were discussed with the patient. Differential Diagnosis Differential Diagnosis: Myocardial infarction, NSTEMI, unstable angina, pneumothorax, pneumonia Lab Data Lab results reviewed: Yes I reviewed the patient's lab results Labs: Lab Results 05/12/25 05/12/25 Range/Units 13:55 15:03 WBC 6.4 (4.0-11.0) 10^3/uL RBC 4.97 (4.20-5.40) 10^6/uL Hgb 14.2 (12.0-16.0) g/dL Hct 39.6 (36.0-48.0) % MCV 79.7 L (81.0-99.0) fL MCH 28.6 (26.7-34.0) pg MCHC 35.9 H (29.9-35.2) g/dL RDW 12.3 (11.0-15.0) % Plt Count 256 (150-450) 10^3/uL MPV 10.5 (9.5-13.5) fL Neut % (Auto) 57.9 (43.0-75.0) % Lymph % (Auto) 35.8 (20.5-60.0) % Sully % (Auto) 4.8 (1.7-12.0) % Eos % (Auto) 0.6 L (0.9-7.0) % Baso % (Auto) 0.6 (0.2-2.0) % Neut # (Auto) 3.7 (1.4-6.5) 10^3/uL Lymph # (Auto) 2.3 (1.2-3.8) 10^3/uL Sully # (Auto) 0.3 (0.3-0.8) 10^3/uL Eos # (Auto) 0.0 (0.0-0.7) 10^3/uL Baso # (Auto) 0.0 (0.0-0.1) 10^3/uL Abs Immat Gran (auto) 0.02 (0.00-0.03) 10^3/uL Imm/Tot Granulo (auto) 0.3 (0.0-0.5) % Sodium 134 L (136-145) mmol/L Potassium 4.2 (3.5-5.1) mmol/L Chloride 98 (98-107) mmol/L Carbon Dioxide 23.4 (21.0-32.0) mmol/L Anion Gap 16.8 BUN 13.0 (7.0-18.0) mg/dL Creatinine 0.79 (0.55-1.02) mg/dL Est GFR ( Amer) >60 (>=60 mL/min/1.73m^2) Est GFR (Non-Af Amer) >60 (>=60 mL/min/1.73m^2) BUN/Creatinine Ratio 16.5 Glucose 465 H (74-106) mg/dL Calcium 9.0 (8.5-10.1) mg/dL Troponin I High Sens 17.2 21.2 (4.0-51.3) pg/mL Imaging Data Chest x-ray: My impression: No acute findings ECG Data Attestation: I personally reviewed and interpreted this ECG as follows: (EKG on my interpretation shows normal sinus rhythm with rate of 87 and no acute change.) Discharge Plan Discharge Chief Complaint: Arrhythmia/Palpitations Clinical Impression: Unstable angina Patient Disposition: Admitted as Observation Time of Disposition Decision: 15:38 Condition: Fair
[2025-05-12] MEDS: NITROGLYCERIN 0.4 MG BOTTLE SL ×2 (14:00→14:23)
[2025-05-12 14:11] LABS: Hematocrit 39.6 % (36.0-48.0); Hemoglobin 14.2 g/dL (12.0-16.0); Immature Granulocytes Abs Auto 0.02 10^3/uL (0.00-0.03); Immature Granulocytes Pct Auto 0.3 % (0.0-0.5); Lymphocytes Absolute Auto 2.3 10^3/uL (1.2-3.8); Mean Corpuscular HGB Conc 35.9 g/dL (29.9-35.2); Mean Corpuscular Hemoglobin 28.6 pg (26.7-34.0); Mean Corpuscular Volume 79.7 fL (81.0-99.0); Platelet Count 256 10^3/uL (150-450); Red Blood Count 4.97 10^6/uL (4.20-5.40); White Blood Count 6.4 10^3/uL (4.0-11.0)
[2025-05-12 14:23] LABS: Anion Gap 16.8; Blood Urea Nitrogen 13.0 mg/dL (7.0-18.0); Calcium 9.0 mg/dL (8.5-10.1); Carbon Dioxide 23.4 mmol/L (21.0-32.0); Chloride 98 mmol/L (98-107); Estimated GFR (African America >60 (>=60 mL/min/1.73m^2); Estimated GFR (Non-African Ame >60 (>=60 mL/min/1.73m^2); Glucose 465 mg/dL (74-106); Potassium 4.2 mmol/L (3.5-5.1); Sodium 134 mmol/L (136-145)
--- NOTE | 2025-05-12 14:57 | XR_ITS ---
The [address] [address] Patient Name: ESCOBAR NASH MRN: [id number] date: 1980 Sex: F Assigned Patient Location: ER Current Patient Location: ED.MAIN Accession/Order Number: [id number] Exam Date: 05/12/2025 15:02 Report Date: 05/12/2025 15:40 At the request of: BIBIANA CRESPO MD Procedure: XR chest 1V PA CHEST: CLINICAL HISTORY: CP COMPARISON: 08/09/2023 Unremarkable cardiomediastinal silhouette. Lungs are clear. No effusion or pneumothorax. XR/XR chest 1V IMPRESSION: Negative for acute pleural-parenchymal disease. Impression dictated by: Magdaleno Temple M.D. 05/12/2025 3:40 PM Dictation Location: [place] [address] Electronically authenticated by: [id number] Y Date: 05/12/2025 15:40
[2025-05-12] MEDS: INSULIN REGULAR, HUMAN (100 UNIT/ML) 10 ML MDV 10 UNIT IV (16:16)
[2025-05-12] MEDS: ENOXAPARIN SODIUM 80 MG/0.8 ML SYRINGE SUBQ (16:17)
--- OUTSIDE RECORDS SUMMARY | 2025-05-12 17:11 | XMS_ITS | CCD ---
Author Organization [facility] Care Team Providers Care Boathouse Keeper Name Role Phone DR GENTRY CARRILLO Consulting [...] Attending Unavailable LORENA, DR EDMOND Admitting Unavailable LOREAN, DR EDMOND Consulting Unavailable LORENA, DR EDMOND [...] Admitting Unavailable Gentry Carrillo Primary Care Physician [phone] Abhishek Monterroso Consulting Unavaila Ellie Encarnacion Attending Unavailable Ellie OBANDO Admitting Unavailable Abhishek Monterroso Consulting UnavailAbhishek Alonso Consulting Unavaila Pako Briceño Attending Unavailable FELIPA ROGERS Attending Unavailable Gentry Carrillo MD Primary Care Provider [phone] AMY LOVE Attending Unavailable GENTRY CARRILLO Primary Care Unavailable GENTRY CARRILLO Primary Care Unavailable SANCHEZ MANCILLA Attending Unavailable GENTRY CARRILLO Primary Care Unavailable AMISHA NGUYEN Attending Unavailable Gentry Carrillo MD Primary Care Provider [phone] BASIA BRANDT Attending Unavailable Marlow DDS, Yixue Unavailable Unavailable Marlow DDS, Yixue Unavailable Unavailable Marlow DDS, Yixue Unavailable Unavailable Marlow DDS, Yixue Attending Unavailable Gentry Carrillo MD Primary Care Unavailable Marlow DDS, Yixue Unavailable Unavailable Allergies Allergy Classification Reported Allergen(s) Allergy Type Date of Onset Reaction(s) Facility (1 source) Penicillin Drug Allergy 0 [facility] Repository (11 sources) Penicillins; Translations: [penicillins] Drug allergy 9 Rash, Hives, Unknown [facility] Medications Current Medications Medication Drug Class(es) [...] tab(s), Refills(s) 1, [id number], 165, cm, 01/21/23 16:25:00 EDT, Height/Length Dosing, [...] attention, # 100 tab(s), Refills(s) 0, Pharmacy: [facility] #[id number], 165, cm, 01/21/23 16:25:00 EDT, Height/Length Dosing, [...] BID, # 60 tab(s), Refills(s) 1, Pharmacy: [facility] #[id number], 165, cm, 01/21/23 16:25:00 EDT, Height/Length Dosing, [...] Coronary atherosclerosis; Translations: [Atherosclerotic heart disease of algaaciq coronary artery without angina pectoris] Onset: 01-23-2023 [...] current use of drug therapy; Translations: [Other fci (current) drug therapy] Onset: 01-21-2023 Episodic Other [...] 02-19-2022 Episodic Other aftercare (1 source) Other fci (current) drug therapy; Translations: [OTH CARE HOME CURRENT DRUG THERAPY] Onset: 02-19-2022 Episodic Other aftercare (1 source) [facility] (current) use of oral hypoglycemic drugs; Translations: [CARE HOME USE ORAL HYPOGLYCEMIC DX] Onset: 02-19-2022 Episodic Other aftercare (1 source) [facility] (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; Translations: [CARE HOME CURRENT USE OF ASPIRIN] Onset: 12-09-2021 Episodic Other aftercare (1 source) terminal carman (current) use of insulin; Translations: [COMMUNICATION SIGNALS INTELLIGENCE CURRENT USE OF INSULIN] Onset: 12-09-2021 Episodic [...] <-Panic Low,>-Panic High,A-Abnormal,AA-Critical Abnormal Performed at: 01 =[address] [address] Lucy Carbajal MD, HPV APTIMA Negative Negative [facility] Comment on above: This nucleic acid am plification test detects fourteen high- risk HPV types (16,18,31,33,35,39,45,51,52,56,58,59,66,68) without differentiation. Performed at: =[address] [id number] Nutritional Assistant: Lucy Carbajal MD, Phone: [phone] Performed at: [address] [id number] Nutritional Assistant: Lucy Carbajal MD, Phone: [phone] IGP, APTIMA HPV, RFX 16/18,45 Note . [facility] Comment on above: TESTS RESULT FLAG UN ITS REF RANGE LAB DIAGNOSIS: 02 NEGATIVE FOR INTRAEPITHELIAL LESION OR MALIGNANCY. Specimen adequacy: 02 Satisfactory for evaluation. Endocervical and/or squamous metaplastic cells (endocervical component) are present. Performed by: 02 Genoveva Rhodes, Automobile Rental Agent (ASCP) . 02 Note: Note 02 The [...] <-Panic Low,>-Panic High,A-Abnormal,AA-Critical Abnormal Performed at: [address] [address] Lucy Carbajal MD, BRUSH-SPATULA CERVIX ENDOCERVIX [facility] RECURRENT VAGINITIS (HTRX)on 01-11-2025 ATOPOBIUM VAGINAE 15.51 Abnormal [facility] Healthcare ATOPOBIUM VAGINAE Detected Abnormal [facility] BVAB 2,3 (BACTERIAL VAGINOSIS ASSOCIATED BACTERIA 2, 3); MOBILUNCUS SPP 0 [facility] BVAB 2,3 (BACTERIAL VAGINOSIS ASSOCIATED BACTERIA 2, 3); MOBILUNCUS SPP Not detected [facility] HEATHER ALBICANS, PARAPSILOSIS, TROPICALIS 0 [facility] HEATHER ALBICANS, PARAPSILOSIS, TROPICALIS Not detected [facility] HEATHER GLABRATA 0 [facility] HEAHTER GLABRATA Not detected [facility] HEATHER KRUSEI [...] Healthcare TET B, TET M 12.593 Abnormal [facility] Healthcare TET B, TET M Detected Abnormal [facility] TRICHOMONAS VAGINALIS 0 [facility] TRICHOMONAS VAGINALIS Not detected N [facility] Healthcare COVID-19, Rapidon 10-04-2024 SARS-CoV-2 (COVID-19) RdRp gene TIM+probe Ql (Resp) Not detected Not Detected [facility] Comment on above: Rapid NAAT: The specimen [...] Nucleic Acid Amplification Specimen Description .NASOPHARYNGEAL SWAB [facility] Flu A/B Ag Detectionon 10-04 Flu A Ag Detection Negative Normal [facility] Comment on above: Result Comment: for Influenza A Antigen Performed By: #### F LUABA #### [facility] [address] [place] [address] Nutritional Assistant: Matthew Driscoll MD Flu B Ag Detection Negative Normal NEG [facility] Comment on above: Result Comment: for Influenza B Antigen. Performed By: #### F LUABA #### [facility] [address] [place] [address] Nutritional Assistant: Matthew Driscoll MD Rapid influenza A/B antigens on 10-04-2024 FLUAV Ag Ql (Unsp spec) Negative NEGATIVE [facility] Comment on above: for Influenza A Anti gen FLUBV Ag Ql (Unsp spec) Negative NEGATIVE [facility] Comment on above: for Influenza B Anti gen. [facility] [id number] 10-04-2024 SARS-CoV-2 (COVID-19) RNA TIM+probe Ql (Unsp spec) Not detected Normal [facility] Comment on above: Result Comment: Rapid NAAT: [...] Amplification Performed By: #### C OVRB #### [facility] [address] [place] [address] Nutritional Assistant: Matthew Driscoll MD CBC with Auto Differentialon 08-28-2024 Basophils (Bld) [#/Vol] 0.02 10*3/uL [facility] Basophils/100 WBC (Bld) 0 % 0 - 2 % [facility] Eosinophils (Bld) [#/Vol] 0.09 10*3/uL [facility] Eosinophils/100 WBC (Bld) 1 % 0 - 5 % [facility] Erythrocyte distribution width (RBC) [Ratio] 13.0 % 12.1 - 15.2 % [facility] Hematocrit (Bld) [Volume fraction] 41.7 % 36.0 - 46.0 % [facility] Hemoglobin (Bld) [Mass/Vol] 15.0 g/dL 12.0 - 16.0 g/dL [facility] Immature granulocytes (Bld) [#/Vol] 0.02 10*3/uL [facility] Immature granulocytes/100 WBC (Bld) 0 % 0 - 5 % [facility] Interpretation and review of laboratory results Abnormal [facility] Lymphocytes/100 WBC (Bld) 33 % 15 - 40 % [facility] Lymphocytes/100 WBC (Bld) 3.26 % [facility] MCH (RBC) [Entitic mass] 28.5 pg 26.0 - 34.0 pg [facility] MCHC (RBC) [Mass/Vol] 36.0 g/dL 31.0 - 37.0 g/dL [facility] MCV (RBC) [Entitic vol] 79.3 fL Low 80.0 - 100.0 fL [facility] Monocytes/100 WBC (Bld) 6 % 4 - 8 % [facility] Monocytes/100 WBC (Bld) 0.55 % [facility] Neutrophils/100 WBC (Bld) 60 % 47 - 75 % [facility] Platelet mean volume (Bld) [Entitic vol] 9.9 fL 6.0 - 12.0 fL [facility] Platelets (Bld) [#/Vol] 277 10*3/uL [facility] RBC (Bld) [#/Vol] 5.26 10*6/uL High 4.00 - 5.2 0 m/uL [facility] Segmented neutrophils/100 WBC (Bld) 6.04 % [facility] WBC other (Bld) [#/Vol] 10.[address] [facility] CBC with Diffon 08-28-2024 Abs. Basophil 0.02 k/uL Normal 0.00-0.20 [facility] Comment on above: Performed By: #### C P, CDP #### [facility] [address] [place] [address] Nutritional Assistant: Matthew Driscoll MD Abs.Imm.Granulocyte 0.02 k/uL Normal 0.00-0.30 [facility] Comment on above: Performed By: #### C P, CDP #### [facility] [address] [place] [address] Nutritional Assistant: Matthew Driscoll MD Abs.Neutrophil (Seg) 6.04 k/uL Normal 2.5-7.0 [facility] Comment on above: Performed By: #### C P, CDP #### [facility] [address] [place] [address] Nutritional Assistant: Matthew Driscoll MD Basophils/100 WBC (Bld) 0 % Normal 0-2 [facility] Comment on above: Performed By: #### C P, CDP #### [facility] [address] [place] [address] Nutritional Assistant: Matthew Driscoll MD Eosinophils (Bld) [#/Vol] 0.09 10*3/uL Normal 0.00-0.40 [facility] Comment on above: Performed By: #### C P, CDP #### [facility] [address] [place] [phone] Nutritional Assistant: Matthew Driscoll MD Eosinophils/100 WBC (Bld) 1 % Normal 0-5 [facility] Comment on above: Performed By: #### C P, CDP #### [facility] [address] [place] [address] Nutritional Assistant: Matthew Driscoll MD Erythrocyte distribution width (RBC) [Ratio] 13.0 % Normal 12.1-15.2 [facility] Comment on above: Performed By: #### C P, CDP #### [facility] [address] [place] [phone] Nutritional Assistant: Matthew Driscoll MD Hematocrit (Bld) [Volume fraction] 41.7 % Normal 36.0-46.0 [facility] Comment on above: Performed By: #### C P, CDP #### [facility] [address] [place] [address] Nutritional Assistant: Matthew Driscoll MD Hemoglobin (Bld) [Mass/Vol] 15.0 g/dL Normal 12.0-16.0 [facility] Comment on above: Performed By: #### C P, CDP #### [facility] [address] [place], [place] [phone] Nutritional Assistant: Matthew Driscoll MD Immature granulocytes/100 WBC (Bld) 0 % Normal 0-5 [facility] Comment on above: Performed By: #### C P, CDP #### [facility] [address] [place] [address] Nutritional Assistant: Matthew Driscoll MD Lymphocytes (Bld) [#/Vol] 3.26 10*3/uL Normal 1.00-4.80 [facility] Comment on above: Performed By: #### C P, CDP #### [facility] [address] [place] [address] Nutritional Assistant: Matthew Driscoll MD Lymphocytes/100 WBC (Bld) 33 % Normal 15-40 [facility] Comment on above: Performed By: #### C P, CDP #### [facility] [address] [place] [address] Nutritional Assistant: Matthew Driscoll MD MCH (RBC) [Entitic mass] 28.5 pg Normal 26.0-34.0 [facility] Comment on above: Performed By: #### C P, CDP #### [facility] [address] [place] [address] Nutritional Assistant: Matthew Driscoll MD MCHC (RBC) [Mass/Vol] 36.0 g/dL Normal 31.0-37.0 [facility] Comment on above: Performed By: #### C P, CDP #### [facility] [address] [place] [address] Nutritional Assistant: Matthew Driscoll MD MCV (RBC) [Entitic vol] 79.3 fL Low 80.0-100.0 [facility] Comment on above: Performed By: #### C P, CDP #### [facility] [address] [place] [phone] Nutritional Assistant: Matthew Driscoll MD Monocytes (Bld) [#/Vol] 0.55 10*3/uL Normal 0.00-1.00 [facility] Comment on above: Performed By: #### C P, CDP #### [facility] [address] [place], [place] [phone] Nutritional Assistant: Matthew Driscoll MD Monocytes/100 WBC (Bld) 6 % Normal 4-8 [facility] Comment on above: Performed By: #### C P, CDP #### [facility] [address] [place] [address] [phone] Nutritional Assistant: Matthew Driscoll MD Neutrophil (Seg) 60 % Normal 47-75 [facility] Comment on above: Performed By: #### C P, CDP #### [facility] [address] [place] [address] Nutritional Assistant: Matthew Driscoll MD Platelet mean volume (Bld) [Entitic vol] 9.9 fL Normal 6.0-12.0 [facility] Comment on above: Performed By: #### C P, CDP #### [facility] [address] [place], [place] [phone] Nutritional Assistant: Matthew Driscoll MD Platelets (Bld) [#/Vol] 277 10*3/uL Normal 140-450 [facility] Comment on above: Performed By: #### C P, CDP #### [facility] [address] [place] [address] Nutritional Assistant: Matthew Driscoll MD RBC (Bld) [#/Vol] 5.26 10*6/uL High 4.00-5.20 [facility] Comment on above: Performed By: #### C P, CDP #### [facility] [address] [place], [place] [phone] Nutritional Assistant: Matthew Driscoll MD WBC (Bld) [#/Vol] 10.0 10*3/uL Normal 3.5-11.0 [facility] Comment on above: Performed By: #### C P, CDP #### [facility] [address] [place] [address] Nutritional Assistant: Matthew Driscoll MD Comp Metabolic Profon 2024 Albumin [Mass/Vol] 3.8 g/dL Normal 3.5-5.2 [facility] Comment on above: Performed By: #### C P, CDP #### [facility] [address] [place] [phone] Nutritional Assistant: Matthew Driscoll MD ALT [Catalytic activity/Vol] 17 U/L Normal 5-33 [facility] Comment on above: Performed By: #### C P, CDP #### [facility] [address] [place] [address] Nutritional Assistant: Matthew Driscoll MD Anion gap [Moles/Vol] 16 mmol/L Normal 9-17 [facility] Comment on above: Performed By: #### C P, CDP #### [facility] [address] [place] [address] Nutritional Assistant: Matthew Driscoll MD AST [Catalytic activity/Vol] 12 U/L Normal <32 [facility] Comment on above: Performed By: #### C P, CDP #### [facility] [address] [place] [address] Nutritional Assistant: Matthew Driscoll MD Bilirubin [Mass/Vol] 0.6 mg/dL Normal 0.3-1.2 [facility] Comment on above: Performed By: #### C P, CDP #### [facility] [address] [place] [address] Nutritional Assistant: Matthew Driscoll MD Calcium [Mass/Vol] 9.8 mg/dL Normal 8.6-10.4 [facility] Comment on above: Performed By: #### C P, CDP #### [facility] [address] [place], [place] [phone] Nutritional Assistant: Matthew Driscoll MD Chloride [Moles/Vol] 87 mmol/L Low 98-107 [facility] Comment on above: Performed By: #### C P, CDP #### [facility] [address] [place] [phone] Nutritional Assistant: Matthew Driscoll MD CO2 [Moles/Vol] 22 mmol/L Normal 20-31 [facility] Comment on above: Performed By: #### C P, CDP #### [facility] [address] [place] [address] Nutritional Assistant: aMtthew Driscoll MD Creatinine [Mass/Vol] 0.6 mg/dL Normal 0.5-0.9 [facility] Comment on above: Performed By: #### C P, CDP #### [facility] [address] [place] [address] Nutritional Assistant: Matthew Driscoll MD Glucose [Mass/Vol] 579 mg/dL Critically high 70-99 [facility] Comment on above: Performed By: #### C P, CDP #### [facility] [address] [place] [address] Nutritional Assistant: Matthew Driscoll MD Potassium [Moles/Vol] 4.4 mmol/L Normal 3.7-5.3 [facility] Comment on above: Performed By: #### C P, CDP #### [facility] [address] [place] [address] Nutritional Assistant: Matthew Driscoll MD Protein [Mass/Vol] 7.5 g/dL Normal 6.4-8.3 [facility] Comment on above: Performed By: #### C P, CDP #### [facility] [address] [place], [place] [phone] Nutritional Assistant: Matthew Driscoll MD Sodium [Moles/Vol] 125 mmol/L Low 135-144 [facility] Comment on above: Performed By: #### C P, CDP #### [facility] [address] [place], [place] [phone] Nutritional Assistant: Matthew Driscoll MD Urea nitrogen [Mass/Vol] 21 mg/dL High 6-20 [facility] Comment on above: Performed By: #### C P, CDP #### [facility] [address] [place] [address] Nutritional Assistant: Matthew Driscoll MD Alkaline Phos 173 U/L High 35-104 [facility] Comment on above: Performed By: #### C P, CDP #### [facility] [address] [place], [place] [phone] Nutritional Assistant: Matthew Driscoll MD BUN/CRE Ratio 35 High 9-20 [facility] Comment on above: Performed By: #### C P, CDP #### [facility] [address] [place], [place] [phone] Nutritional Assistant: Matthew Driscoll MD GFR/1.73 sq M.predicted among non-blacks MDRD (S/P/Bld) [Vol rate/Area] mL/min/{1.73_m2} Normal >60 [facility] Comment on above: Result Comment: These [...] Performed By: #### C P, CDP #### [facility] [address] [place], [place] [phone] Nutritional Assistant: Matthew Driscoll MD Comprehensive Metabolic Pane katelynn 08-28-2024 ALP [Catalytic activity/Vol] 173 U/L High 35 - 104 U/L [facility] Tana Leonard Ellie - HELEN [facility] Comment on above: These results are [...] Interpretation and review of laboratory results Abnormal [facility] Urea nitrogen/Creatinine [Mass ratio] 35 mg/mg High 9 - [address] [facility] Glucose, Whole Bloodon 08-28 Glucose [Mass/Vol] 316 mg/dL High 65 - 99 mg/dL [facility] Interpretation and review of laboratory results Abnormal [facility] Glucose [Mass/Vol] 565 mg/dL Critically high 65 - 99 mg/d L [facility] Interpretation and review of laboratory results Abnormal [facility] Glucose,Whole Bloodon 2024 Glucose [Mass/Vol] 316 mg/dL High 65-99 [facility] Glucose [Mass/Vol] 565 mg/dL Critically high 65-99 M [facility] POCT glucoseon 08-28-2024 Glucose [Mass/Vol] 316 mg/dL [facility] Interpretation and review of laboratory results Normal [facility] QC OK? yes [facility] POCT glucoseOrdered By: Shazia Trujillo on 08-28-2024 Glucose [Mass/Vol] 565 mg/dL [facility] Interpretation and review of laboratory results Normal [facility] QC OK? yes [facility] Venous Bld Gas,POCon 08-28- 025 FIO2 21.0 Normal [facility] HCO3 (Bld) [Moles/Vol] 23.5 mmol/L Normal 22.0-29.0 [facility] Oxygen saturation in Blood 95.0 % High 60.0-85.0 [facility] pCO2, Venous 33.2 mm Hg Low 41.0-51.0 [facility] pH,Venous 7.457 High 7.320-7.430 [facility] pO2, Venous 70.8 mm Hg High 30.0-50.0 [facility] Positive Base Excess (calc) 0.4 mmol/L Normal 0.0-3.0 [facility] Venous Blood Gas, POCon 08-03 FIO2 21.0 [facility] HCO3 (Bld) [Moles/Vol] 23.5 mmol/L 22.0 - 29.0 mmol/L [facility] Interpretation and review of laboratory results Abnormal [facility] Oxygen saturation in Blood 95.0 % High 60.0 - 85.0 % [facility] pCO2, Adria 33.2 Low [facility] pH, Adria 7.457 High 7.320 - 7.430 [facility] PO2, Adria 70.8 High [facility] Positive Base Excess, Adria 0.4 mmol/L 0.0 - 3.0 mmol/L [facility] Office Visiton 02-05-2023 Follow-up visit [id number] Escobar Ortega 1980 F Date Provider Department Center 02/05/2023 Theron8-FLEIPA ROGERS [facility] Family History Problem Relation Age of Onset Diabetes Father Coronary artery disease Father Kidney disease Father Family Status - Relation Status Age at Father Level of Service:[address] [place] OFFICE/OUTPATIENT [facility] 30-44 MINUTES Normal [facility] Cardiovascular Reporton 01-01 Cardiovascular Report [id number] 30#1.00CD:127 Normal [facility] Consent for PICC lineon 01-01 Consent for PICC line [id number] 13#1.00CD:127 Normal [facility] Discharge Instructionson Discharge Instructions [id number] #1.00CD:127 Normal [facility] Pre-Certification Formon Pre-Certification Form [id number] 2#1.00CD:127 Normal [facility] BMPon 01-23-2023 Anion gap [Moles/Vol] 12 mmol/L Normal 6-16 [facility] Comment on above: Performed By: #### 2 639211, 1382174, [id number], [id number], 4552639, 0854800 #### [facility] [address] [place] [address] Calcium [Mass/Vol] 8.2 mg/dL Low 8.9-11.1 [facility] Comment on above: Performed By: #### 2 151863, 8172538, 82795273, 032445898, 3826550, 4613147 #### [facility] [address] [place] [address] Chloride [Moles/Vol] 108 mmol/L Normal 101-111 [facility] Comment on above: Performed By: #### 2 440300, 2617098, 96272169, 219602310, 3638964, 3699659 #### [facility] [address] [place] [address] CO2 [Moles/Vol] 19 mmol/L Low 21-31 [facility] Comment on above: Performed By: #### 2 284440, 9429578, 94786021, 418784601, 5116055, 2527749 #### [facility] [address] [place] [address] Creatinine [Mass/Vol] 0.5 mg/dL Normal 0.5-1.3 [facility] Comment on above: Performed By: #### 2 832314, 7867038, 75945794, 427520639, 1489450, 7444124 #### [facility] [address] [place] [address] Glucose [Mass/Vol] 183 mg/dL Normal 55-199 [facility] Comment on above: Result Comment: If t his glucose result represents a fasting glucose, interpretation should refer to the following reference range: 55-99 mg/dL Performed By: #### 2 943749, 2089960, 92377120, 995415603, 4012995, 4503661 #### [facility] [address] [place] [address] Potassium [Moles/Vol] 3.8 mmol/L Normal 3.5-5.3 [facility] Comment on above: Performed By: #### 2 220889, 6676723, 17099375, 670510990, 8190737, 6937254 #### [facility] [address] [place] [address] Sodium [Moles/Vol] 135 mmol/L Normal 135-145 [facility] Comment on above: Performed By: #### 2 607005, 1372445, 58345790, 713643346, 4378658, 4735583 #### [facility] [address] [place] [address] Urea nitrogen [Mass/Vol] 11 mg/dL Normal 5-21 [facility] Comment on above: Performed By: #### 2 320683, 5619217, 04196027, 640382072, 2965669, 2902413 #### [facility] [address] [place] [address] Urea nitrogen/Creatinine [Mass ratio] 22 No Units High 10-20 [facility] Comment on above: Performed By: #### 2 344522, 9719122, 23633142, 002359387, 2195101, 6915596 #### [facility] [address] [place] [address] CBC w/Indiceson 01-23-2023 Erythrocyte distribution width (RBC) [Ratio] 14.2 % Normal 10.9-14.2 [facility] Comment on above: Performed By: #### 2 627690, 8184573, 02832210, 166627884, 5427838, 0698540 #### [facility] [address] [place] [address] Hematocrit (Bld) [Volume fraction] 38.3 % Normal 34.0-46.0 [facility] Comment on above: Performed By: #### 2 523642, 3295069, 95334853, 376053605, 8590180, 6243340 #### [facility] [address] [place] [address] Hemoglobin (Bld) [Mass/Vol] 13.3 g/dL Normal 12.0-16.0 [facility] Comment on above: Performed By: #### 2 384520, 0312316, 67628737, 313397853, 0720541, 7898214 #### [facility] [address] [place] [address] MCH (RBC) [Entitic mass] 28.9 pg Normal 27.0-34.0 [facility] Comment on above: Performed By: #### 2 302068, 6405029, 20443694, 053735245, 0077481, 9989891 #### [facility] [address] [place] [address] MCHC (RBC) [Mass/Vol] 34.8 g/dL Normal 31.4-36.0 [facility] Comment on above: Performed By: #### 2 848724, 3986686, 56321268, [id number], [id number], [id number] #### [facility] [address] [place] [address] MCV (RBC) [Entitic vol] 83.1 fL Normal 80.0-100.0 [facility] Comment on above: Performed By: #### 2 013584, 0015622, 73668689, 534274943, 9401373, 9117796 #### [facility] [address] [place] [address] Platelet mean volume (Bld) [Entitic vol] 8.6 fL Normal 6.4-10.8 [facility] Comment on above: Performed By: #### 2 813160, 6594963, 41620755, 892627793, 6619845, 2095068 #### [facility] [address] [place] [address] Platelets (Bld) [#/Vol] 237.0 E9/L Normal 150.0-500.0 [facility] Comment on above: Performed By: #### 2 218685, 2175457, 27498157, 247212180, 4312837, 1284438 #### [facility] [address] [place] [address] RBC (Bld) [#/Vol] 4.6 E12/L Normal 4.3-5.9 [facility] Comment on above: Performed By: #### 2 250719, 1760750, 84670034, 950612886, 3498265, 4997235 #### [facility] [address] [place] [address] 390[address] WBC corrected for nucl RBC Auto (Bld) [#/Vol] 9.5 E9/L Normal 4.0-11.0 [facility] Comment on above: Performed By: #### 2 469596, 9033525, 66001278, 682147792, 5415102, 6932850 #### [facility] [address] [place] [address] CHEMISTRYOrdered By: Lab ROP User on 01-23-2023 Glucose [Mass/Vol] 255 mg/dL High 55 - 99 mg/dL FTM C POC Subsection Comment on above: Result Comment: Marino paulson RN/ POC Device SN [id number] Invalid Interpretation Code [facility] POC Subsection POC User ID [id number] Invalid Interpretation Code [facility] POC Subsection POC Username LESLY PARR Invalid Interpretation Code [facility] POC Subsection Glucose [Mass/Vol] 192 mg/dL High 55 - 99 mg/dL [facility] C POC Subsection Comment on above: Result Comment: Yari jennifer Meter POC Device SN [id number] Invalid Interpretation Code [facility] POC Subsection POC User ID [id number] Invalid Interpretation Code FT POC Subsection POC [...] 118 mL/min/1.73 m2 Normal >=59mL/min/1. 73 m2 [facility] Chem S Glucose [Mass/Vol] 183 mg/dL Normal 55 - 199 mg/dL FT Remisol Magnesium [Mass/Vol] 1.5 mg/dL Normal 1.3 - 2 .4 mg/dL FT Remisol Potassium [Moles/Vol] 3.8 mmol/L Normal 3.5 - 5.3 mmol/L FT Remisol Sodium [Moles/Vol] 135 mmol/L Normal 135 - 145 mmol/L FT Remisol Troponin I.cardiac [Mass/Vol] 1304.50 pg/mL Invalid Interpretation Code 10.10 - 27.10 pg/mL [facility] Remisol Comment on above: Result Comment: Crit [...] 01-01 Glucose [Mass/Vol] 255 mg/dL High 55-99 [facility] Comment on above: Result Comment: Marino paulson RN/ Performed By: #### 2 171959, 2211567, 34351627, 358979694, 7559737, 1339684 #### [facility] [address] [place] [address] Glucose [Mass/Vol] 192 mg/dL High 55-99 [facility] Comment on above: Result Comment: Yari rodriguez Meter Performed By: #### 2 [id number] ####[facility] [address] [place] [address] Consultation Noteon 01-24-20 Consultation Note Chief Complaint [...] deep vein thrombosis (DVT) prophylaxis (Z79.899: 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 Normal [facility] Comment on above: Result Comment: Elec tronically Signed By: Kriss HAIDER, Abhishek Hagan\.br\Date and Time Signed: 01/22/23 22:12 EDT Discharge Note-Nursingon Discharge Note-Nursing Patient prescribed Brillinta for discharge. Her preferred pharmacy is [facility] which does not have Brillinta in stock until Wednesday. This RN asked patient to switch pharmacy for this medication so she could citrus picker today. Patient refuses to switch pharmacies. She states her sister will not take her to any other pharmacy to pick this up. Per Dr. Lawrence, ok to pull 4 Brillinta to send home with patient to have enough until she can citrus picker the medication from her pharmacy. Normal [facility] HEMATOLOGYOrdered By: Cristin Ibarra on 01-23-2023 [...] Inpatient Clinical Summaryon 01-23-2023 Inpatient Clinical Summary [address] [address] Clinical Summary Person Information: Name: ESCOBAR ORTEGA Age: 43 Years : 1980 Sex: Female PCP: Gentry Carrillo MD Marital Status: Phone: [phone] Race: White Ethnicity: Non- or Language: Somali Visit Id: Visit Reason: Chest pain; CHEST PAIN Speciality: Acuity: Enc Type: Observation Med Service: Medical Arrival: 01/21/2023 16:19:22 Discharge: Dispo Type: Admitted as IP to this Hosp Address: [address] [phone] Provider Notes: Diagnosis: 1:NSTEMI (non-ST elevation myocardial [...] Follow up: With: Address: When: Abhishek Monterroso [address] [place] [address] Business (1) Within 2 weeks Comments: Call for followup appointment With: Address: When: Gentry Carrillo [address] [place] [address] [place] [address] Business (1) 01/27/2023 9:30 AM Patient Education Information: CV - Cardiovascular PCI Discharge Instructions (CUSTOM) [facility] Inpatient Patient Summaryon 01-23-2023 Inpatient Patient [...] When: 01/27/2023 09:30 AM EDT Where: [address] [place] [address]- Business (1) Follow Up with Abhishek Monterroso When: Within 2 weeks Comments: Call for followup appointment Where: [address] [place] [phone]- Business (1) Medications What How Much When Why Instructions Next Dose New aspirin (aspirin 81 mg Oral EC Tab) 1 Tablets By Mouth Every day Refills: 1 Pickup at [facility] #[id number] 01/24 New atorvastatin (Lipitor 80 mg Tab) 1 Tablets By Mouth Every day Refills: 1 Pickup at [facility] #[id number] 01/24 New metoprolol (Metoprolol tartrate 25 mg Tab) 1 Tablets By Mouth 2 times a day Refills: 1 Pickup at [facility] #[id number] 01/23 9:00pm New nitroglycerin (nitroglycerin 0.4 mg sublingual Tab) 1 Tablets Sublingual Every 5 minutes as needed for Chest pain not to exceed 3 doses/ 15 min--if pain persists, seek medical attention Pickup at [facility] #[id number] New ticagrelor (Brilinta (ticagrelor) 90 mg oral tablet) 1 Tablets By Mouth 2 times a day Chest pain Elevated troponin NSTEMI (non-ST elevation myocardial infarction) Hypertensive urgency Right shoulder pain Refills: 1 Pickup at [facility] #[id number] 01/23 9:00pm Changed insulin glargine (Lantus insulin) [...] times a day 01/23 9:00pm Pharmacy Information [facility] #[id number]: [address], [place] [phone] What How Much When Comments Stop Taking naproxen (naproxen sodium 550 mg Tab) 1 Tablets By Mouth 2 times a day Test Results CBC BMP WBC: 9.5 E9/L (01/23/23 06:23:00) Glucose Lvl: 183 mg/dL (01/23/23 06:23:00) RBC: 4.6 E12/L (01/23/23 06:23:00) BUN: 11 mg/dL (01/23/23 06:23:00) HGB: 13.3 gm/dL (06/24/23 06:23:00) Creatinine: 0.5 mg/ (more content not included)... Normal [facility] Inpatient Patient Summary [address] [address] Patient Discharge Instructions PERSON [...] Follow up: With: Address: When: Abhishek Monterroso [address] [place] [address] Business (1) Within 2 weeks Comments: Call for followup appointment With: Address: When: Gentry Carrillo [address] [place] [address] [place] [address] Business (1) 01/27/2023 9:30 AM [...] day. Comment: MEDICATIO (more content not included)... [facility] Interdisciplinary Note - Lemuel e Manageron 01-23-2023 Interdisciplinary Note - Mill Operator Pt is awake and alert in bed, [...] [facility] . PCP verified and insurance information reviewed and DME discussed. Contact information provided and white board updated. [facility] Comment on above: Result Comment: Elec tronically Signed By: Todd CASEY, Jeanie\.brenna\Date and Time Signed: 01/23/23 12:44 EDT Interdisciplinary Note - Navarro rice 01-23-2023 Interdisciplinary Note - Nursing Patient prescribed Brillinta for discharge. [facility] preferred pharmacy[facility], will not have any of this medication until Wednesday. Patient refuses to switch pharmacies at this time to citrus picker enough to last her through the weekend. She states her sister will not take her to any other pharmacy. Per Dr. Lawrence, ok to pull 4 doses of Brillinta 90mg from RX station to send home with patient until she can citrus picker medication on Wednesday. Education provided to patient on importance of taking Brillinta exactly how it is prescribed. Informed patient that if she cannot get the rest of her Brillinta on Wednesday for any reason to contact the rn family practice or hospital supervisor wet pour per Dr. Lawrence. Normal [facility] Magnesiumon 01-23-2023 Magnesium [Mass/Vol] 1.5 mg/dL Normal 1.3-2.4 [facility] Comment on above: Performed By: #### 2 968742, 5475190, 02936833, 264735924, 6339517, 5772247 #### [facility] [address] [place] [address] Monitor Recordon 01-23-2023 Monitor Record [id number] 0#1.00CD:127 Normal [facility] Monitor Record [id number] 2#1.00CD:127 Normal [facility] Monitor Record [id number] 5#1.00CD:127 Normal [facility] Monitor Record [id number] 7#1.00CD:127 Normal [facility] Operative Reporton 3 Operative Report Indication [...] patient will additionally be counseled by the [facility] team and in follow-up. Complications None Technique Following full and informed consent the patient was brought to the [facility] where sterile prep and drape were administered in usual fashion. Anesthesia was obtained in the right wrist with lidocaine after administration of conscious sedation. A 5/6 slender Terumo sheath was placed in the right radial artery without complication. Nitroglycerin and nicardipine were given via the sheath and heparin was given intravenously. A 5 Salvadorean JACKE catheter was advanced and selectively engaged in the left main coronary artery and right coronary artery each, where selective injections were performed. A pigtail catheter was placed in the left ventricle where hemodynamic measurements the left ventricle were made and a bolus was given for left ventriculography. A pullback gradient was obtained. A 6 Salvadorean jl3.5 catheter was advanced and selectively engaged [...] end of the procedure without complication. Normal [facility] Comment on above: Result Comment: Elec [...] She is medically stable for discharge and rn family practice cleared her. We will give for Brilinta from here in order to get her through the weekend and prevent in-stent rethrombosis and potential complication. Nurse will give for medications which will cover patient until Wednesday morning and if any issue patient is to call supervisor wet pour or rn family practice to get it filled somewhere else. [facility] Comment on above: Result Comment: Elec [...] Lipitor, lisinopril, Lopressor. Treated with Lovenox. [facility] Moderate 35 Minutes 02818 2. Coronary artery disease (I25.10: Atherosclerotic heart disease of algaaciq coronary artery without angina pectoris) As seen on cardiac catheterization. Patient has coronary artery disease with mid left circumflex artery occlusion requiring 1 drug-eluting stent placement on 01/22/2023. Continue on aspirin, Brilinta, Lipitor, lisinopril and Lopressor. Ordered: [facility]/Day Moderate 35 Minutes 88612 3. Chest pain (R07.9: Chest pain, unspecified) Secondary to above. Resolved. Ordered: [facility]/Day Moderate 35 Minutes 47902 4. Elevated troponin (R77.8: Other specified abnormalities of plasma proteins) Secondary to above. Resolved. Ordered: [facility] Hospital Care/Day Moderate 35 Minutes 05994 5. Hypertensive urgency (I16.0: Hypertensive urgency) Resolved. Continue on lisinopril and metoprolol. Ordered: [facility] Hospital Care/Day Moderate 35 Minutes 04971 6. Right shoulder pain (M25.511: Pain in right shoulder) Secondary to above #1. With atypical presentation. Ordered: [facility] Hospital Care/Day Moderate 35 Minutes 82269 7. Leukocytosis (D72.829: Elevated white blood cell [...] deep vein thrombosis (DVT) prophylaxis (Z79.899: Other terminal operations supervisor (current) drug therapy) SCDs. Disposition: Home either today or in a.m. pending cardiology final recommendations. I discussed the diagnosis and plan of care with the patient at the bedside. Moderate level of MDM based on addressing above issues. This documentation was transcribed using voice recognition software. Several attempts were made to ensure accuracy. However inadvertent computerized filler shaker errors may be present. Ellie Obando. Hospitalist. [...] -- 0 (more content not included)... Normal [facility] Comment on above: Result Comment: Elec tronically Signed By: GAGE HAIDER, Bobbyfo\.br\Date and Time Signed: 01/23/23 09:13 EDT Troponinon 01-23-2023 Troponin I.cardiac [Mass/Vol] 1304.50 pg/mL Abnormal 10.10-27.10 [facility] Comment on above: Result Comment: Crit [...] High Sensitivity Troponin I Instructions For Use, [place] [employer], March 2018) Performed By: #### 2 952398, 4319067, 07401636, 321294168, 8675561, 6581804 #### [facility] [address] [place] [address] eGFRon 01-23-2023 GFR/1.73 sq M.predicted among non-blacks MDRD (S/P/Bld) [Vol rate/Area] 118 mL/min/1.73 m2 Normal >=59 [facility] Comment on above: Order Comment: Order added by Discern Expert. Result Comment: Funnel Setter reji kidney disease could be indicated at eGFR's of less than 60 mL/min/1.73m2. Kidney failure is indicated at less than 15 mL/min/1.73m2. Performed By: #### 2 961165, 8965854, 18674064, 406933754, 4622296, 1071125 #### [facility] [address] [place] [address] Auto Diffon 01-22-2023 Basophils/100 WBC (Bld) 0.4 % Normal 0.0-2.0 [facility] Comment on above: Order Comment: Order Added by Discern Expert. Performed By: #### 2 964218, 7571157, 61020290, 760827901, 0441129, 1478612 #### [facility] [address] [place] [address] Basophils/Leukocytes Auto (Bld) [Pure # fraction] 0.0 E9/L Normal 0.0-0.2 [facility] Comment on above: Order Comment: Order Added by Discern Expert. Performed By: #### 2 289920, 5205855, 46697649, 856588171, 4965251, 4743712 #### [facility] [address] [place] [address] Eosinophils/100 WBC (Bld) 0.2 % Normal 0.0-8.0 [facility] Comment on above: Order Comment: Order Added by Discern Expert. Performed By: #### 2 621694, 3997103, 96862857, 931899375, 9549981, 6039894 #### [facility] [address] [place] [address] Eosinophils/Leukocyte s Auto (Bld) [Pure # fraction] 0.0 E9/L Normal 0.0-0.5 [facility] Comment on above: Order Comment: Order Added by Discern Expert. Performed By: #### 2 560073, 7897480, 19326717, 791225222, 4653398, 6885332 #### [facility] [address] [place] [address] Lymphocytes/100 WBC (Bld) 24.9 % Normal 14.0-50.0 [facility] Comment on above: Order Comment: Order Added by Discern Expert. Performed By: #### 2 492487, 7819138, 94062914, 826707515, 3793364, 5736547 #### [facility] [address] [place] [address] Lymphocytes/Leukocyte s Auto (Bld) [Pure # fraction] 2.6 E9/L Normal 1.0-4.0 [facility] Comment on above: Order Comment: Order Added by Discern Expert. Performed By: #### 2 615142, 3097982, 43711898, 434432137, 2970718, 2728322 #### [facility] [address] [place] [address] Monocytes/100 WBC (Bld) 4.6 % Normal 4.0-14.0 [facility] Comment on above: Order Comment: Order Added by Discern Expert. Performed By: #### 2 161955, 2327830, 19021960, 310350834, 7125503, 3104391 #### [facility] [address] [place] [address] Monocytes/Leukocytes Auto (Bld) [Pure # fraction] 0.5 E9/L Normal 0.2-1.0 [facility] Comment on above: Order Comment: Order Added by Discern Expert. Performed By: #### 2 222633, 7197251, 74297160, 750483263, 0965246, 1494317 #### [facility] [address] [place] [address] Neutrophils/100 WBC (Bld) 69.9 % Normal 36.0-75.0 [facility] Comment on above: Order Comment: Order Added by Discern Expert. Performed By: #### 2 153918, 6833813, 57139828, 114657116, 7947054, 3471807 #### [facility] [address] [place] [address] Neutrophils/Leukocyte s Auto (Bld) [Pure # fraction] 7.4 E9/L Normal 2.0-7.5 [facility] Comment on above: Order Comment: Order Added by Discern Expert. Performed By: #### 2 356428, 3548539, 55754190, 570707319, 5387215, 5161423 #### [facility] [address] [place] [address] BMPon 01-22-2023 Anion gap [Moles/Vol] 5 mmol/L Low 6-16 [facility] Comment on above: Performed By: #### 2 419695, 8238734, 41591505, 051509775, 8005354, 9004453 #### [facility] [address] [place] [address] Calcium [Mass/Vol] 8.0 mg/dL Low 8.9-11.1 [facility] Comment on above: Performed By: #### 2 984717, 3290885, 64436113, 488156332, 8467010, 5285744 #### [facility] [address] [place] [address] Chloride [Moles/Vol] 107 mmol/L Normal 101-111 [facility] Comment on above: Performed By: #### 2 879383, 8555197, 16941678, 753212235, 3780483, 4361487 #### [facility] [address] [place] [address] CO2 [Moles/Vol] 23 mmol/L Normal 21-31 [facility] Comment on above: Performed By: #### 2 947956, 9000551, 42365690, 987398132, 6414647, 5742219 #### [facility] [address] [place] [address] Creatinine [Mass/Vol] 0.6 mg/dL Normal 0.5-1.3 [facility] Comment on above: Performed By: #### 2 655477, 6862372, 29650658, 977164718, 3675384, 5799940 #### [facility] [address] [place] [address] Glucose [Mass/Vol] 293 mg/dL High 55-199 [facility] Comment on above: Result Comment: If t his glucose result represents a fasting glucose, interpretation should refer to the following reference range: 55-99 mg/dL Performed By: #### 2 252135, 2446331, 74580245, 752555288, 9106571, 3015893 #### [facility] [address] [place] [address] Potassium [Moles/Vol] 4.0 mmol/L Normal 3.5-5.3 [facility] Comment on above: Performed By: #### 2 800996, 0419340, 10491229, 764880007, 4437108, 2982919 #### [facility] [address] [place] [address] Sodium [Moles/Vol] 131 mmol/L Low 135-145 [facility] Comment on above: Performed By: #### 2 489517, 4033153, 24847557, 468591129, 0546509, 3743299 #### [facility] [address] [place] [address] Urea nitrogen [Mass/Vol] 20 mg/dL Normal 5-21 [facility] Comment on above: Performed By: #### 2 789581, 6126355, 46822586, 105655826, 6963983, 4944873 #### [facility] [address] [place] [address] Urea nitrogen/Creatinine [Mass ratio] 33 No Units High 10-20 [facility] Comment on above: Performed By: #### 2 346215, 3253363, 92304944, 981974188, 2995260, 7888044 #### [facility] [address] [place] [address] CBC w/ Auto Diffon 3 Erythrocyte distribution width (RBC) [Ratio] 14.0 % Normal 10.9-14.2 [facility] Comment on above: Performed By: #### 2 113937, 6546032, 48800226, 414303888, 6992896, 8431294 #### [facility] [address] [place] [address] Hematocrit (Bld) [Volume fraction] 35.5 % Normal 34.0-46.0 [facility] Comment on above: Performed By: #### 2 528611, 3818011, 30402115, 270889258, 9045582, 6067752 #### [facility] [address] [place] [address] Hemoglobin (Bld) [Mass/Vol] 12.5 g/dL Normal 12.0-16.0 [facility] Comment on above: Performed By: #### 2 337549, 3292385, 45744990, 741587489, 5078702, 5336100 #### [facility] [address] [place] [address] MCH (RBC) [Entitic mass] 28.6 pg Normal 27.0-34.0 [facility] Comment on above: Performed By: #### 2 930775, 5050994, 89945056, 495643804, 1005675, 8404574 #### [facility] [address] [place], [place] [address] MCHC (RBC) [Mass/Vol] 35.1 g/dL Normal 31.4-36.0 [facility] Comment on above: Performed By: #### 2 705406, 5028854, 74725246, 262833053, 9503473, 9872969 #### [facility] [address] [place], [place] [address] MCV (RBC) [Entitic vol] 81.5 fL Normal 80.0-100.0 [facility] Comment on above: Performed By: #### 2 330775, 8246102, 41209108, 611567555, 4850755, 4435036 #### [facility] [address] [place] [address] Platelet mean volume (Bld) [Entitic vol] 8.9 fL Normal 6.4-10.8 [facility] Comment on above: Performed By: #### 2 636440, 2772266, 89058312, 070952546, 0863859, 6644824 #### [facility] [address] [place] [address] Platelets (Bld) [#/Vol] 246.0 E9/L Normal 150.0-500.0 [facility] Comment on above: Performed By: #### 2 407685, 8585843, 14835726, 045973768, 7842589, 8430240 #### [facility] [address] [place] [address] RBC (Bld) [#/Vol] 4.4 E12/L Normal 4.3-5.9 [facility] Comment on above: Performed By: #### 2 296422, 5364020, 50063207, 290901857, 0401631, 3141972 #### [facility] [address] [place] [address] WBC corrected for nucl RBC Auto (Bld) [#/Vol] 10.6 E9/L Normal 4.0-11.0 [facility] Comment on above: Performed By: #### 2 753825, 3943028, 53172660, 302205771, 7622036, 8898753 #### [facility] [address] [place] [address] CHEMISTRYOrdered By: Will PATTERSON User on 01-22-2023 Glucose [Mass/Vol] 378 mg/dL High 55 - 99 mg/dL FT C POC Subsection Comment on above: Result Comment: Marino paulsno RN/ POC Device SN [id number] Invalid Interpretation Code [facility] POC Subsection POC User ID [id number] Invalid Interpretation Code [facility] POC Subsection POC Username KOBI SINGH Invalid Interpretation Code [facility] POC Subsection CHEMISTRYOrdered By: Stella Lisa on [...] 293 mg/dL High 55 - 199 mg/dL [facility] Remisol Potassium [Moles/Vol] 4.0 mmol/L Normal 3.5 - 5.3 mmol/L [facility] Remisol Sodium [Moles/Vol] 131 mmol/L Low 135 - 145 mmol/L [facility] Remisol Triglyceride [Mass/Vol] 300 mg/dL High <=149mg/dL [facility] Remisol Urea nitrogen [Mass/Vol] 20 mg/dL Normal 5 - 21 mg/dL [facility] Remisol Urea nitrogen/Creatinine [Mass ratio] 33 mg/mg High 10 - 20 [facility] Remisol CHEMISTRYOrdered By: SYSTEM SYSTEM on 01-22-2023 GFR/1.73 sq M.predicted among non-blacks MDRD (S/P/Bld) [Vol rate/Area] 113 mL/min/1.73 m2 Normal >=59mL/min/1. 73 m2 [facility] Chem S Troponin I.cardiac [Mass/Vol] 445.10 pg/mL Invalid Interpretation Code 10.10 - 27.10 pg/mL [facility] Remisol Comment on above: Result Comment: Crit ical Result verified by previous result\ Critical Result [id number] Called to ROSSY MOE at [facility] by VERONIQUE REID and read back for confirmation at 01/22/2023 01:58:36 CHEMISTRYOrdered By: Christiano Clay on 01-22-2023 HbA1c (Bld) [Mass fraction] 11.1 % High <=5.9% [facility] ChemAutoSS Capillary Glucose POCon 01-01 Glucose [Mass/Vol] 378 mg/dL High 55-99 [facility] Comment on above: Result Comment: Marino NEWBY Performed By: #### 2 [id number] ####[facility] [address] [place] [address] Glucose [Mass/Vol] 245 mg/dL High 55-99 [facility] Comment on above: Result Comment: Marino NEWBY Performed By: #### 2 002055, 4384292, 13206956, 012931175, 9579511, 8833569 #### [facility] [address] [place] [address] Glucose [Mass/Vol] 268 mg/dL High 55-99 [facility] Comment on above: Result Comment: Marino NEWBY Performed By: #### 2 [id number] ####[facility] [address] [place] [address] Glucose [Mass/Vol] 215 mg/dL High 55-99 [facility] Comment on above: Result Comment: Marino NEWBY Performed By: #### 2 [id number] ####[facility] [address] [place] [address] Glucose [Mass/Vol] 378 mg/dL High 55-99 [facility] Comment on above: Result Comment: Marino NEWBY Performed By: #### 2 007871, 6566979, 42980816, 014093810, 1498955, 0937588 #### [facility] [address] [place] [address] Cardiovascular Reporton 01-01 Cardiovascular Report [id number] 3#2.00CD:127 Normal [facility] HEMATOLOGYOrdered By: SYSTEM SYSTEM on 01-22-2023 [...] 10.6 E9/L Normal 4.0 - 11.0 E9/L [facility] HemeAutoSS [id number] 01-22-2023 HbA1c (Bld) [Mass fraction] 11.1 % High <=5.9 [facility] Comment on above: Performed By: #### 2 332929, 1734214, 95234921, 242094101, 2782451, 6481679 #### [facility] [address] [place] [address] Interdisciplinary Note - Lemuel e Manageron 01-22-2023 Interdisciplinary Note - Mill Operator CRM entered the room to discuss dc planning. Contact information provided and whiteboard updated. Pt is getting testing. Pending cardiology. ANt dc today. CRM to follow. Normal [facility] Comment on above: Result Comment: Elec tronically Signed By: Cristin Shane.br\Date and Time Signed: 01/22/23 10:52 EDT Lipid Panelon 01-22-2023 Cholesterol [Mass/Vol] 205 mg/dL High 120-200 [facility] Comment on above: Performed By: #### 2 640398, 2251494, 84839855, 713452780, 7419875, 3159934 #### [facility] [address] [place] [address] Cholesterol in HDL [Mass/Vol] 35 mg/dL Invalid Interpretation Code [facility] Comment on above: Result Comment: HDL > or equal to 60 mg/dL: Low cardiovascular risk HDL < 40 mg/dL : High cardiovascular risk Performed By: #### 2 491046, 9961942, 31990154, 916683239, 1762810, 4990895 #### [facility] [address] [place] [address] Cholesterol in LDL [Mass/Vol] 115 mg/dL Normal <=129 [facility] Comment on above: Performed By: #### 2 976419, 2612261, 69142420, 844533073, 8057107, 3953909 #### [facility] [address] [place] [address] Cholesterol in VLDL [Mass/Vol] 60 mg/dL High 7-40 [facility] Comment on above: Performed By: #### 2 359671, 8100593, 94832703, 320725632, 3815941, 1657771 #### [facility] [address] [place] [address] Triglyceride [Mass/Vol] 300 mg/dL High <=149 [facility] Comment on above: Performed By: #### 2 826962, 7267198, 39523567, 143141077, 6037163, 9600754 #### [facility] [address] [place] [address] Monitor Recordon 01-22-2023 Monitor Record [id number] 6#1.00CD:127 Normal [facility] Monitor Record [id number] 5#1.00CD:127 Normal [facility] Monitor Record [id number] 6#1.00CD:127 [facility] Monitor Record [id number] 5#1.00CD:127 [facility] Pre-Certification Formon Pre-Certification Form [id number] 5#1.00CD:127 [facility] Progress Note-Nurseon 2022 Progress Note-Nurse Report given to JACINTO Burgos, who is taking over patient's care in room 328. Loretta made aware that patient currently down in CV Lab. Patient's belongings taken to room 328. Patient's family member also taken down to room 328. [facility] Progress Note-Nurse This credit underwriter was notified by Dr. Obando at 1303 that patient will go for heart catheterization today. Per Dr. Obando, hold lovenox and make patient NPO. This credit underwriter will do at this time and notify patient of plan of care. [facility] Progress Note-Nurse This credit underwriter entered the patient's room to place lidocaine [...] her right arm would intermittently hurt. This credit underwriter asked patient if there was anything she could do to help the patient any further, but patient denied any further needs. This credit underwriter will notify Dr. Obando that patient has had previous right shoulder pain when moving boxes back in November. Normal [facility] Progress Note-Nurse This credit underwriter was notified by the person performing the echo that patient was having 10/10 right shoulder pain at 10:08. This credit underwriter entered the patient's room to personally assess the patient. Patient stated she was having 10/10 right shoulder pain, but denied having chest pain. Morphine was given at 10:10. Patient stated at 10:12 right shoulder pain was now 6/10, with no chest pain. This credit underwriter personally spoke with Dr. Obando on the phone, who stated to have an EKG performed after the Echo and that he would order a lidocaine patch. This credit underwriter notified both patient and Rema, with radiology that was in the patient's room. Normal [facility] Progress Note-Nurse Patient's step mother called, Chari, requesting updates. Chari not listed in contacts. This credit underwriter asked patient if it was okay to give Chari updates. Patient stated, yes. This credit underwriter updated Chari on plan of care. Chari had no further questions at this time. Normal [facility] Progress Note-Physicianon Progress Note-Physician Assessment/Plan 43-year-old [...] morphine and oxygen. Cardiology consult pending. Ordered: [facility] Hospital Care/Day Moderate 35 Minutes 75709 2. Elevated troponin (R77.8: Other specified abnormalities of plasma proteins) Elevated troponin?secondary to NSTEMI. Cardiology consult pending. Continue on aspirin, Lipitor, Lovenox. Echocardiogram pending. Ordered: [facility] Hospital Care/Day Moderate 35 Minutes 39460 3. NSTEMI (non-ST elevation myocardial infarction) (I21.4: Non-ST elevation (NSTEMI) myocardial infarction) Acute NSTEMI?present on admission. Cardiology consult pending. Echocardiogram pending. Continue on aspirin, Lipitor, lisinopril, Lovenox. Ordered: [facility] Hospital Care/Day Moderate 35 Minutes 33469 4. Hypertensive urgency (I16.0: Hypertensive urgency) Resolved. Continue lisinopril. [facility] Moderate 35 Minutes 83894 5. Right shoulder pain (M25.511: Pain in right shoulder) Resolved. [facility] Moderate 35 Minutes 45386 6. 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 Disposition: Pending echocardiogram and cardiology consult. I discussed the diagnosis and plan of care with the patient at the bedside. Moderate level of MDM based on addressing above issues. This documentation was transcribed using voice recognition software. Several attempts were made to ensure accuracy. However inadvertent computerized filler shaker errors may be present. Ellie Obando. Hospitalist. [...] 05:07:00) Lymph Auto: 24.9 % (01/22/23 05:07:00) [place] Auto: 4.6 % (01/22/23 05:07:00) Eos Auto: 0.2 % (01/22/23 05:07:00) Basophil Auto: 0.4 % (01/22/23 05:07:00) Neutro Absolute: 7.4 E9/L (01/22/23 05:07:00) Lymph Absolute: 2.6 E9/L (06 (more content not included)... Normal [facility] Comment on above: Result Comment: Elec tronically Signed By: GAGE HAIDER, Ellie\.br\Date and Time Signed: 01/22/23 09:41 EDT Troponin 6 Hr.on 01-22-2023 Troponin I.cardiac [Mass/Vol] 467.70 pg/mL Abnormal 10.10-27.10 [facility] Comment on above: Result Comment: Crit [...] Sensitivity Troponin I Instructions For Use, [place], March 2018) Performed By: #### 2 532867, 2833716, 29945870, 991654391, 8736580, 6556245 #### [facility] [address] [place] [address] Troponin 9 Hr.on 01-22-2023 Troponin I.cardiac [Mass/Vol] 445.10 pg/mL Abnormal 10.10-27.10 [facility] Comment on above: Result Comment: Crit [...] Ruben, March 2018) Performed By: #### 1 [id number] #### [facility] [address] [place] [address] XR Chest Single Viewon 01-22 XR Chest [...] mGy = na DAP = na Normal [facility] eGFRon 01-22-2023 GFR/1.73 sq M.predicted among non-blacks MDRD (S/P/Bld) [Vol rate/Area] 113 mL/min/1.73 m2 Normal >=59 [facility] Comment on above: Order Comment: Order added by Discern Expert. Result Comment: Funnel Setter reji kidney disease could be indicated at eGFR's of less than 60 mL/min/1.73m2. Kidney failure is indicated at less than 15 mL/min/1.73m2. Performed By: #### 2 287810, 5725144, 09616948, 062552898, 2467049, 6182378 #### [facility] [address] [place] [address] Auto Diffon 01-21-2023 Basophils/100 WBC (Bld) 0.3 % Normal 0.0-2.0 [facility] Comment on above: Order Comment: Order Added by Discern Expert. Performed By: #### 2 095987, 6626320, 88837085, 105533127, 7654356, 5942644 #### [facility] [address] [place] [address] Basophils/Leukocytes Auto (Bld) [Pure # fraction] 0.0 E9/L Normal 0.0-0.2 [facility] Comment on above: Order Comment: Order Added by Discern Expert. Performed By: #### 2 307484, 4506455, 48231530, 580618204, 6266922, 9416914 #### [facility] [address] [place] [address] Eosinophils/100 WBC (Bld) 0.1 % Normal 0.0-8.0 [facility] Comment on above: Order Comment: Order Added by Discern Expert. Performed By: #### 2 184487, 0764619, 58971881, 784238621, 9456591, 6525212 #### [facility] [address] [place] [address] Eosinophils/Leukocyte s Auto (Bld) [Pure # fraction] 0.0 E9/L Normal 0.0-0.5 [facility] Comment on above: Order Comment: Order Added by Discern Expert. Performed By: #### 2 173136, 0720448, 22220043, 787773533, 7109422, 1361262 #### [facility] [address] [place] [address] Lymphocytes/100 WBC (Bld) 8.6 % Low 14.0-50.0 [facility] Comment on above: Order Comment: Order Added by Discern Expert. Performed By: #### 2 096535, 3689069, 38953114, 863773091, 3940350, 9683724 #### [facility] [address] [place] [address] Lymphocytes/Leukocyte s Auto (Bld) [Pure # fraction] 1.2 E9/L Normal 1.0-4.0 [facility] Comment on above: Order Comment: Order Added by Discern Expert. Performed By: #### 2 022586, 4714494, 68333407, 394451719, 7131743, 8225411 #### [facility] [address] [place] [address] Monocytes/100 WBC (Bld) 4.8 % Normal 4.0-14.0 [facility] Comment on above: Order Comment: Order Added by Discern Expert. Performed By: #### 2 290270, 7827207, 88370182, 424931435, 1501239, 8754514 #### [facility] [address] [place] [address] Monocytes/Leukocytes Auto (Bld) [Pure # fraction] 0.7 E9/L Normal 0.2-1.0 [facility] Comment on above: Order Comment: Order Added by Discern Expert. Performed By: #### 2 858308, 4764992, 63952996, 540582983, 3836542, 6162984 #### [facility] [address] [place] [address] Neutrophils/100 WBC (Bld) 86.2 % High 36.0-75.0 [facility] Comment on above: Order Comment: Order Added by Discern Expert. Performed By: #### 2 232389, 8291521, 34263136, 069293224, 5761972, 3645981 #### [facility] [address] [place] [address] Neutrophils/Leukocyte s Auto (Bld) [Pure # fraction] 12.3 E9/L High 2.0-7.5 [facility] Comment on above: Order Comment: Order Added by Discern Expert. Performed By: #### 2 741583, 6942369, 70361740, 347877892, 3868709, 7737202 #### [facility] [address] [place] [address] BMPon 01-21-2023 Anion gap [Moles/Vol] 14 mmol/L Normal 6-16 [facility] Comment on above: Performed By: #### 2 965472, 7175937, 16560641, 169336540, 3005643, 1129267 #### [facility] [address] [place] [address] Calcium [Mass/Vol] 9.0 mg/dL Normal 8.9-11.1 [facility] Comment on above: Performed By: #### 2 108120, 1336147, 74602607, 769011558, 9672033, 6841596 #### [facility] [address] [place] [address] Chloride [Moles/Vol] 101 mmol/L Normal 101-111 [facility] Comment on above: Performed By: #### 2 371274, 1926804, 25784023, 682624514, 1484111, 6256979 #### [facility] [address] [place] [address] CO2 [Moles/Vol] 18 mmol/L Low 21-31 [facility] Comment on above: Performed By: #### 2 834719, 5135471, 67300489, 905030815, 7873669, 9378380 #### [facility] [address] [place] [address] Creatinine [Mass/Vol] 0.7 mg/dL Normal 0.5-1.3 [facility] Comment on above: Performed By: #### 2 715654, 1967852, 74532447, 262487450, 8256498, 9042919 #### [facility] [address] [place] [address] Glucose [Mass/Vol] 491 mg/dL Abnormal 55-199 [facility] Comment on above: Result Comment: Crit ical Result verified by repeat analysis\Critical Result [id number] MARTIN AT by CIARA HOWARD And Read Back For Confirmation at: 01/21/2023 17:05:30 If this glucose result represents a fasting glucose, interpretation should refer to the following reference range: 55-99 mg/dL Performed By: #### 2 970298, 1327289, 05041421, 066943618, 7684414, 9530901 #### [facility] [address] [place] [address] Potassium [Moles/Vol] 4.0 mmol/L Normal 3.5-5.3 [facility] Comment on above: Performed By: #### 2 851612, 2433501, 98936205, 923184642, 0013362, 6080382 #### [facility] [address] [place] [address] Sodium [Moles/Vol] 129 mmol/L Low 135-145 [facility] Comment on above: Performed By: #### 2 613883, 5543018, 74699184, 078143321, 1377233, 8147622 #### [facility] [address] [place] [address] Urea nitrogen [Mass/Vol] 23 mg/dL High 5-21 [facility] Comment on above: Performed By: #### 2 596489, 0788605, 93785415, 693351807, 9620649, 1388691 #### [facility] [address] [place] [address] Urea nitrogen/Creatinine [Mass ratio] 33 No Units High 10-20 [facility] Comment on above: Performed By: #### 2 871923, 7253248, 91674472, 297458671, 6458240, 1442139 #### [facility] [address] [place] [address] BOHBon 01-21-2023 Beta hydroxybutyrate [Moles/Vol] 0.86 mmol/L High 0.02-0.27 [facility] Comment on above: Performed By: #### 2 665781, 7440662, 34077792, 465432972, 9313918, 6507342 #### [facility] [address] [place] [address] CBC w/ Auto Diffon Erythrocyte distribution width (RBC) [Ratio] 14.2 % Normal 10.9-14.2 [facility] Comment on above: Performed By: #### 2 752682, 4640798, 96204578, 044720185, 1227334, 2960363 #### [facility] [address] [place] [address] Hematocrit (Bld) [Volume fraction] 41.9 % Normal 34.0-46.0 [facility] Comment on above: Performed By: #### 2 408774, 0661100, 82001808, 441648431, 5652446, 0505531 #### [facility] [address] [place] [address] Hemoglobin (Bld) [Mass/Vol] 14.2 g/dL Normal 12.0-16.0 [facility] Comment on above: Performed By: #### 2 649548, 0106358, 77270874, 680850267, 2745629, 9440896 #### [facility] [address] [place], [place] [address] MCH (RBC) [Entitic mass] 28.0 pg Normal 27.0-34.0 [facility] Comment on above: Performed By: #### 2 603859, 0121949, 02465287, 012685439, 6090872, 5668279 #### [facility] [address] [place], [place] [address] MCHC (RBC) [Mass/Vol] 33.9 g/dL Normal 31.4-36.0 [facility] Comment on above: Performed By: #### 2 753364, 8252699, 60545395, 775189293, 5158734, 0130783 #### [facility] [address] [place] [address] MCV (RBC) [Entitic vol] 82.6 fL Normal 80.0-100.0 [facility] Comment on above: Performed By: #### 2 343786, 1529990, 67328574, 487739814, 5872302, 3157826 #### [facility] [address] [place] [address] Platelet mean volume (Bld) [Entitic vol] 8.8 fL Normal 6.4-10.8 [facility] Comment on above: Performed By: #### 2 776727, 7308451, 40156843, 178719923, 8308229, 3683232 #### [facility] [address] [place] [address] Platelets (Bld) [#/Vol] 240.0 E9/L Normal 150.0-500.0 [facility] Comment on above: Performed By: #### 2 576400, 0964658, 39612320, 396017714, 5633883, 2155478 #### [facility] [address] [place] [address] RBC (Bld) [#/Vol] 5.1 E12/L Normal 4.3-5.9 [facility] Comment on above: Performed By: #### 2 928389, 2692530, 33026660, 322587332, 4482949, 3884586 #### [facility] [address] [place] [address] WBC corrected for nucl RBC Auto (Bld) [#/Vol] 14.2 E9/L High 4.0-11.0 [facility] Comment on above: Performed By: #### 2 169106, 6108250, 93961462, 032760706, 8062971, 9289410 #### [facility] [address] [place], [place] [address] CHEMISTRYOrdered By: SYSTEM SYSTEM on 01-21-2023 Troponin [...] mmol/L Normal 101 - 1 11 mmol/L [facility] Remisol CO2 [Moles/Vol] 18 mmol/L Low 21 - 31 mmol/L [facility] Remisol Creatinine [Mass/Vol] 0.7 mg/dL Normal 0.5 - 1.3 mg/dL [facility] Remisol GFR/1.73 sq M.predicted among non-blacks MDRD (S/P/Bld) [Vol rate/Area] 109 mL/min/1.73 m2 Normal >=59mL/min/1. 73 m2 [facility] Chem S Glucose [Mass/Vol] 491 mg/dL Invalid Interpretation Code 55 - 199 mg/dL [facility] Comment on above: Result Comment: Crit ical Result verified by repeat analysis\Critical Result [id number] MARTIN AT ER by CIARA HOWARD And Read Back For Confirmation at: 01/21/2023 17:05:30 Potassium [Moles/Vol] 4.0 mmol/L Normal 3.5 - 5.3 mmol/L [facility] Remisol Sodium [Moles/Vol] 129 mmol/L Low 135 - 145 mmol/L [facility] Remisol Urea nitrogen [Mass/Vol] 23 mg/dL High 5 - 21 mg/dL [facility] Remisol Urea nitrogen/Creatinine [Mass ratio] 33 mg/mg High 10 - 20 [facility] Remisol Consent for Treatmenton 01-01 Consent for Treatment [id number] 98#1.00CD:127 Normal [facility] ED Clinical Summaryon 2022 ED Clinical Summary [place] [id number] ED Clinical Summary Person Information Name: ESCOBAR ORTEGA [place] Age: 43 Years : 1980 Sex: Female Language: Somali PCP: Gentry Carrillo MD Marital Status: Phone: [phone] Visit Id: Visit Reason: Chest pain; CHEST PAIN Speciality: Acuity: 3 Enc Type: Observation Med Service: Medical Arrival: 01/21/2023 16:19:22 Discharge: LOS: 000 03:20 Checkin: 01/21/2023 16:19:22 Checkout: 01/21/2023 19:39:40 Dispo Type: Admitted as IP to this [facility] EVENTS: Event Name Event Status Request [...] 01/21/2023 19:13:12 ADDRESS: [address] [phone] PHYS DOC NOTES: MEDICAL INFORMATION: Prescriptions Given: Medications to Continue with No Changes Other Medications acetaminophen-hydroc odone (Vicodin 500mg-5mg Tab) 1 Tablets By Mouth every 4 hours as needed for pain. Refills: 0. PATIENT EDUCATION INFORMATION: Instructions: Follow up: With: Address: When: Gentry Carrillo [facility] [facility], [place] [address] Business (1) In 3 days DIAGNOSIS: 1:Chest pain; 2:Elevated troponin; 3:Hypertensive urgency; 4:Right shoulder pain; 5:Leukocytosis; 6:Hyperglycemia; 7:Hyponatremia; 8:Metabolic acidosis; 9:HTN (hypertension); 10:Diabetes mellitus; 11:Obese; 12:On deep vein thrombosis (DVT) prophylaxis Normal [facility] ED Note-Physicianon 01-22-20 ED Note-Physician Basic Information Time Seen: Daisy Campos M.D. 01/21/2023 16:49 Chief Complaint pt states just seen for arm pain, given rx steroid. 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 She states she was seen at [facility] yesterday and given steroids. The patient [...] and Complexity of Problems Differential Diagnosis: [] [facility] Data External documents reviewed: [] [...] (primary) hypert (more content not included)... Normal [facility] Comment on above: Result Comment: Elec tronically Signed By: Andres Mejia, Daisy Blair\.br\Date and Time Signed: 01/21/23 19:01 EDT ED Patient Education Noteon 01-21-2023 ED Patient Education Note Normal [facility] ED Patient Summaryon 023 ED Patient Summary [address] [address] Patient Discharge Instructions Person Information Name: ESCOBAR ORTEGA Age: 43 Years Arrival Date: 01/21/2023 16:19:22 Discharge Diagnosis: 1:Chest pain; 2:Elevated troponin; 3:Hypertensive urgency; 4:Right shoulder pain; 5:Leukocytosis; 6:Hyperglycemia; 7:Hyponatremia; 8:Metabolic acidosis; 9:HTN (hypertension); 10:Diabetes mellitus; 11:Obese; 12:On deep vein thrombosis (DVT) prophylaxis Primary Care Physician: Gentry Carrillo MD Provider Information Primary Provider: Daisy Campos M.D. [employer] Machine Operator:None The exam and treatment you received in the Emergency Department were for an urgent problem and are not intended as complete care. It is important that you follow up with a doctor, nurse practitioner, or physician?s environmental assistant for ongoing care. If your symptoms [...] Follow-up Instructions: With: Address: When: Gentry Carrillo [address] [place] [address], [facility] [place] [address] Business (1) In 3 days In the event that this physician does not participate in your insurance network, please consult with your insurance company to find a nearby participating provider. Patient Education Materials: A MESSAGE TO ALL PATIENTS REGARDING OPIOIDS PRESCRIPTION OPIOIDS: WHAT YOU NEED TO KNOW Prescription opioids can be used to help relieve sajosebw-la-fskfgl pain and are often prescribed following a [...] and overdo (more content not included)... Normal [facility] HEMATOLOGYOrdered By: SYSTEM SYSTEM on 01-21-2023 [...] 41.9 % Normal 34.0 - 46.0 % [facility] HemeAutoSS Hemoglobin (Bld) [Mass/Vol] 14.2 g/dL Normal 12.0 - 16.0 gm/dL FT HemeAutoSS MCH (RBC) [Entitic mass] 28.0 pg Normal 27.0 - 34.0 pg [facility] HemeAutoSS MCHC (RBC) [Mass/Vol] 33.9 g/dL Normal 31.4 - 36.0 gm/dL FT HemeAutoSS MCV (RBC) [Entitic vol] 82.6 fL Normal 80.0 - 100.0 fL FT HemeAutoSS Platelet mean volume (Bld) [Entitic vol] 8.8 fL Normal 6.4 - 10.8 fL [facility] HemeAutoSS Platelets (Bld) [#/Vol] 240.0 E9/L Normal 150.0 - 500.0 E9/L [facility] HemeAutoSS RBC (Bld) [#/Vol] 5.1 E12/L Normal 4.3 - 5.9 E12/L [facility] HemeAutoSS WBC corrected for nucl RBC Auto (Bld) [#/Vol] 14.2 E9/L High 4.0 - 11.0 E9/L [facility] HemeAutoSS Monitor Recordon 01-21-2023 Monitor Record [id number] 8#1.00CD:127 Normal [facility] Monitor Record [id number] 5#1.00CD:127 Normal [facility] Troponin 0 Hr.on 01-21-2023 Troponin I.cardiac [Mass/Vol] 201.10 pg/mL Abnormal 10.10-27.10 [facility] Comment on above: Result Comment: Crit [...] conjunction with clinical conditions of myocardial infarction. ([place] High Sensitivity Troponin I Instructions For Use, [place] [employer], March 2018) Performed By: #### 2 [id number], [id number], [id number], [id number], [id number], [id number] #### [facility] [address] [place] [address] Troponin 3 Hr.on 01-21-2023 Troponin I.cardiac [Mass/Vol] 258.00 pg/mL Abnormal 10.10-27.10 [facility] Comment on above: Order Comment: pt no t yet in room from er as of 1924 [id number] 01/21/2023 19:37:18 EDT Result Comment: Crit ical [...] conjunction with clinical conditions of myocardial infarction. ([place] High Sensitivity Troponin I Instructions For Use, [place] [employer], March 2018) Performed By: #### 1 [id number] #### [facility] [address] [place] [address] UA With Cult Reflexon 2022 Bilirubin Ql (U) Negative Normal Negative [facility] Comment on above: Performed By: #### 1 [id number] ####[facility] [address] [place] [address] Clarity (U) CLEAR Normal Clear [facility] Comment on above: Performed By: #### 1 [id number] ####[facility] [address] [place] [address] Color (U) STRAW Abnormal Yellow [facility] Comment on above: Performed By: #### 1 [id number] ####[facility] [address] [place] [address] Epithelial cells.squamous LM.HPF (Urine sed) [#/Area] 0-2 Normal 0-2 [facility] Comment on above: Performed By: #### 1 [id number] ####[address] [address] Glucose Test strip (U) [Mass/Vol] 3+ Abnormal Negative [facility] Comment on above: Performed By: #### 1 [id number] ####[address] [address] Hemoglobin Ql (U) Negative Normal Negative [facility] Comment on above: Performed By: #### 1 [id number] ####[address] [address] Ketones (U) [Mass/Vol] 1+ Abnormal Negative [facility] Comment on above: Performed By: #### 1 [id number] ####[address] [address] Citrus.plasma/Lithiu m.RBC (Bld) [Mass ratio] 0-3 Normal 0-3 [facility] Comment on above: Performed By: #### 1 [id number] ####[address] [address] Nitrite Ql (U) Negative Normal Negative [facility] Comment on above: Performed By: #### 1 [id number] ####[address] [address] pH (U) 6.0 [pH] Invalid Interpretation Code 5.0-9.0 [facility] Comment on above: Performed By: #### 1 [id number] ####[address] [address] Protein (U) [Mass/Vol] Negative Normal Negative [facility] Comment on above: Performed By: #### 1 [id number] ####[address] [address] Specific gravity (U) [Rel density] 1.015 Invalid Interpretation Code 1.005-1.030 [facility] Comment on above: Performed By: #### 1 [id number] ####[facility] [address] [place] [address] Type of Urine collection method Clean Catch Normal [facility] Comment on above: Performed By: #### 1 [id number] ####[facility] [address] [place] [address] Urobilinogen Qn (U) 0.2 {Ankit'U}/dL Normal 0.0-1.0 [facility] Comment on above: Performed By: #### 1 [id number] ####[facility] [address] [place] [address] WBC Auto Ql (U) Negative Normal Negative [facility] Comment on above: Performed By: #### 1 [id number] ####[facility] [address] [place] [address] WBC LM.HPF (Urine sed) [#/Area] 0-5 Normal 0-5 [facility] Comment on above: Performed By: #### 1 [id number] ####[facility] [address] [place] [address] URINALYSISOrdered By: Rogelio Tiwari on 01-21-2023 Bilirubin [...] Interpretation Code Negative [facility] UA Auto SS Citrus.plasma/Lithiu m.RBC (Bld) [Mass ratio] 0-3 /HPF Normal [...] FT UA Auto SS Urobilinogen Qn (U) 0.3899274 {Ankit'U}/dL Normal 0.0 - 1.0 EU/dL [facility] UA Auto SS WBC Auto Ql (U) Negative (01/21/23 5:53 PM) Normal Negative [facility] UA Auto SS WBC LM.HPF (Urine sed) [#/Area] 0-5 /HPF Normal 0-5/HPF [facility] UA Auto SS eGFRon 01-21-2023 GFR/1.73 sq M.predicted among non-blacks MDRD (S/P/Bld) [Vol rate/Area] 109 mL/min/1.73 m2 Normal >=59 [facility] Comment on above: Order Comment: Order Added by Discern Expert. Result Comment: Funnel Setter reji kidney disease could be indicated at eGFR's of less than 60 mL/min/1.73m2. Kidney failure is indicated at less than 15 mL/min/1.73m2. Performed By: #### 2 [id number], [id number], [id number], [id number], [id number], [id number] #### [facility] [address] [place] [address] Consent for Treatmenton 11-30 Consent for Treatment [id number] #1.00CD:127 Normal [facility] Discharge Instructionson Discharge Instructions [id number]#1.00CD:127 Normal [facility] ED Clinical Summaryon 2022 ED Clinical Summary [address] [address] ED Clinical Summary Person Information Name: ESCOBAR ORTEGA [place] Age: 42 Years : 1980 Sex: Female Language: Somali PCP: Gentry Carrillo MD Marital Status: Phone: [phone] Visit Id: Visit Reason: Foot pain-swelling; RIGHT [...] 12/12/2022 08:15:04 12/12/2022 08:15:04 12/12/2022 08:15:04 ADDRESS: [facility] [phone] PHYS DOC NOTES: MEDICAL INFORMATION: Prescriptions Given: Medications to Continue with No Changes Other Medications acetaminophen-hydroc odone (Vicodin 500mg-5mg Tab) 1 Tablets By Mouth every 4 hours as needed for pain. Refills: 0. PATIENT EDUCATION INFORMATION: Instructions: Foot Contusion Follow up: With: Address: When: Nelson HENSLEY [facility], [facility], [address] [place] [address], [place] [address] [place] (1) In 3 days 12/15/2022 Comments: Call the office of the wood turning lathe operator on Wednesday and arrange for evaluation of the toe. With: Address: When: Gentry Carrillo [facility] [facility], [place] [address] Business (1) In 3 days [...] from the toe. DIAGNOSIS: Toe contusion Normal [facility] ED Note-Physicianon 12-13-19 ED Note-Physician Basic [...] Nelson Meade In 3 days 12/15/2022 EDT [facility] [address] [facility] [place] [address]- Business (1) Additional Instructions: Call the office of the wood turning lathe operator on Wednesday and arrange for evaluation of the toe. Gentry Carrillo In 3 days 12/15/2022 EDT [address] [facility] [place] [address]- Business (1) Additional Instructions: Call the office [...] active inp (more content not included)... Normal [facility] Comment on above: Result Comment: Elec [...] may be recommended to support your foot. Eova-bfv-satcmaf anti-inflammatory medicines may also be recommended for [...] or lying down. General instructions ? Take buhq-dtk-zncapkk and prescription medicines only as told by [...] Reviewed: 10/22/2021 Elsevier Patient Education ? 2022 [employer] Normal [facility] ED Patient Summaryon 023 ED Patient Summary [address] [address] Patient Discharge Instructions Person Information Name: ESCOBAR ORTEGA Age: 42 Years Arrival Date: 12/12/2022 07:19:23 Discharge Diagnosis: Toe contusion Primary Care Physician: Gentry Carrillo MD Provider Information Primary Provider: Pako Metzger DO [employer] Machine Operator:None The exam and treatment you received in the Emergency Department were for an urgent problem and are not intended as complete care. It is important that you follow up with a doctor, nurse practitioner, or physician?s environmental assistant for ongoing care. If your symptoms [...] Instructions: With: Address: When: Nelson HENSLEY - [facility], [facility], [address] [place] [address], [place], [place] [address] 6 Business (1) In 3 days 12/15/2022 Comments: Call the office of the wood turning lathe operator on Wednesday and arrange for evaluation of the toe. With: Address: When: Gentry Carrillo [address] [facility] [place] [address] Business (1) In 3 days [...] opioids can be used to help relieve tifqurgu-ob-ruoqha pain and are often prescribed following a [...] psychological, goal-directed (more content not included)... Normal [facility] XR Toe(s) Min 2 Views Righto [...] mGy = na DAP = na Normal [facility] PAP ACOG PANEL 2: 30 to 65on 06-22-2022 . . Normal [facility] Comment on above: Result Comment: Perf ormed at: WB Performed By: #### L BASIA DRIVER, CMP #### [facility] [address] [place] [address] Dr. Neisha Araiza Age Gdln ACOG Testing 30-65 Normal [facility] Comment on above: Performed By: #### L BASIA DRIVER, CMP #### [facility] [address] [address] [address] Neisha Araiza DIAGNOSIS: Comment [facility] Comment on above: Result Comment: NEGA TIVE FOR INTRAEPITHELIAL LESION OR MALIGNANCY. Performed at: WB Performed By: #### L NEISHA BASIA, CMP #### [facility] [address] [place] [address] Dr. Neisha Araiza HPV Aptima Negative Normal Negative [facility] Comment on above: Result Comment: This nucleic acid amplification test detects fourteen high-risk HPV types (16,18,31,33,35,39,45,51,52,56,58,59,66,68) without differentiation. Performed at: =G Performed By: #### L IPA, BASIA, CMP #### [facility] [address] [place] [address] Dr. Neisha Araiza HPV Genotype Reflex Comment Normal [facility] Comment on above: Result Comment: Crit eria not met, HPV Genotype not performed. Performed at: WB Performed By: #### L NEISHA BASIA, CMP #### [facility] [address] [place] [address] Dr. Neisha Araiza Methodology: Comment Normal [facility] Comment on above: Result Comment: This liquid based ThinPrep(R) pap test was screened with the use of an image guided system. Performed at: WB Performed By: #### L BASIA DRIVER, CMP #### [facility] [address] [place] [address] Dr. Neisha Araiza Note: Comment Normal [facility] Comment on above: Result Comment: The [...] By: #### L NEISHA BASIA, CMP #### [facility] [address] [place] [address] Dr. Neisha Araiza Performed by: Comment Normal [facility] Comment on above: Result Comment: Tisha Sanders, Sales Specialist (ASCP) Performed at: WB Performed By: #### L IPA BASIA, CMP #### [facility] [address] [place] [address] Dr. Neisha Araiza Specimen adequacy: Comment Normal [facility] Comment on above: Result Comment: Sati sfactory for evaluation. Endocervical and/or squamous metaplastic cells (endocervical component) are present. Performed at: WB Performed By: #### L BASIA DRIVER, CMP #### [facility] [address] [address] [address] Neisha Araiza Covid-19 PCR (CVDTBH)on 04-03 SARS-CoV-2 (COVID-19) RNA TIM+probe Ql (Unsp spec) Not detected Normal NOT DETECTED [facility] Comment on above: Result Comment: This test is not yet approved or cleared by the [place] FDA. When there are no FDA-approved or cleared tests available, and other criteria are met, FDA can make tests available under an emergency access mechanism called an Emergency Use Authorization (EUA). The EUA for this test is supported by the Credit Verifier of Health and Human Service's (HHS's) declaration [...] SARS-CoV-2. Performed By: #### C BC #### [facility] [address] [place] [address] Dr. Neisha Araiza Covid-19 PCR (CVDTBH)on 04-03 SARS-CoV-2 (COVID-19) RNA TIM+probe Ql (Unsp spec) Not detected Normal NOT DETECTED [facility] Comment on above: Result Comment: This test is not yet approved or cleared by the [place] FDA. When there are no FDA-approved or cleared tests available, and other criteria are met, FDA can make tests available under an emergency access mechanism called an Emergency Use Authorization (EUA). The EUA for this test is supported by the Credit Verifier of Health and Human Service's (HHS's) declaration [...] SARS-CoV-2. Performed By: #### C BC #### [facility] [address] [place] [address] Dr. Neisha Araiza CHLAMYDIA/GONOCOCCUS TIM ( AB/URINE/PAPon 04-17-2022 Chlamydia trachomatis, TIM Negative Normal Negative [facility] Comment on above: Performed By: #### C BC #### [facility] [address] [place] [address] Dr. Neisha Araiza Neisseria gonorrhoeae, TIM Negative Normal Negative [facility] Comment on above: Performed By: #### C BC #### [facility] [address] [place] [address] Dr. Neisha Araiza VAGINITIS/VAGINOSIS DNA PROB [employer] 04-16-2022 Heather species Positive Abnormal Negative [facility] Comment on above: Performed By: #### L IPABASIA, CMP #### [facility] [address] [place] [address] Dr. Neisha Araiza Gardnerella vaginalis Positive Abnormal Negative [facility] Comment on above: Performed By: #### L IPA BASIA, CMP #### [facility] [address] [place] [address] Dr. Neisha Araiza Trichomonas vaginalis Negative Normal Negative [facility] Comment on above: Performed By: #### L IPA, BASIA, CMP #### [facility] [address] [place] [address] Dr. Neisha Araiza AMYLASEon 01-05-2022 Amylase [Catalytic activity/Vol] 20 U/L Critically low 25-115 [facility] Comment on above: Performed By: #### C BC #### [facility] [address] [address] [address] Neisha Araiza CBC AUTO DIFFon 01-05-2022 BASO # 0.0 103/ul Normal 0.0-0.1 [facility] Comment on above: Performed By: #### C BC #### [facility] [address] [place] [address] Dr. Neisha Araiza Basophils/100 WBC (Bld) 0.6 % Normal 0.2-2.0 [facility] Comment on above: Performed By: #### C BC #### [facility] [address] [place] [address] Dr. Neisha Araiza EO # 0.1 103/ul Normal 0.0-0.7 [facility] Comment on above: Performed By: #### C BC #### [facility] [address] [place] [address] Dr. Neisha Araiza Eosinophils/100 WBC (Bld) 0.7 % Critically low 0.9-7.0 [facility] Comment on above: Performed By: #### C BC #### [facility] [address] [place] [address] Dr. Neisha Araiza Erythrocyte distribution width (RBC) [Ratio] 13.5 % Normal 11.0-15.0 [facility] Comment on above: Performed By: #### C BC #### [facility] [address] [place] [address] Dr. Neisha Araiza Hematocrit (Bld) [Volume fraction] 35.3 % Critically low 36.0-48.0 [facility] Comment on above: Performed By: #### C BC #### [facility] [address] [place] [address] Dr. Neisha Araiza Hemoglobin (Bld) [Mass/Vol] 11.8 g/dL Critically low 12.0-16.0 [facility] Comment on above: Performed By: #### C BC #### [facility] [address] [place] [address] Dr. Neisha Araiza IG # 0.02 10e3/ul Normal 0.00-0.03 [facility] Comment on above: Performed By: #### C BC #### [facility] [address] [place] [address] Dr. Neisha Araiza IG % 0.3 % Normal 0.0-0.5 [facility] Comment on above: Performed By: #### C BC #### [facility] [address] [place] [address] Dr. Neisha Araiza LYMPH # 2.3 103/ul Normal 1.2-3.8 [facility] Comment on above: Performed By: #### C BC #### [facility] [address] [place] [address] Dr. Neisha Araiza Lymphocytes/100 WBC (Bld) 33.2 % Normal 20.5-60.0 [facility] Comment on above: Performed By: #### C BC #### [facility] [address] [place] [address] Dr. Neisha Araiza MANUAL DIFF REQ NO Normal [facility] Comment on above: Performed By: #### C BC #### [facility] [address] [place] [address] Dr. Neisha Araiza MCH (RBC) [Entitic mass] 29.1 pg Normal 26.7-34.0 [facility] Comment on above: Performed By: #### C BC #### [facility] [address] [place] [address] Dr. Neisha Araiza MCHC (RBC) [Mass/Vol] 33.4 g/dL Normal 29.9-35.2 [facility] Comment on above: Performed By: #### C BC #### [facility] [address] [place] [address] Dr. Neisha Araiza MCV (RBC) [Entitic vol] 86.9 fL Normal 81.0-99.0 [facility] Comment on above: Performed By: #### C BC #### [facility] [address] [place] [address] Dr. Neisha Araiza MONO # 0.6 103/ul Normal 0.3-0.8 [facility] Comment on above: Performed By: #### C BC #### [facility] [address] [address] [address] Neisha Araiza Monocytes/100 WBC (Bld) 8.6 % Normal 1.7-12.0 [facility] Comment on above: Performed By: #### C BC #### [facility] [address] [address] [address] Neisha Araiza NEUT # 3.9 103/ul Normal 1.4-6.5 [facility] Comment on above: Performed By: #### C BC #### [facility] [address] [address] [address] Neisha Araiza Neutrophils/100 WBC (Bld) 56.6 % Normal 43.0-75.0 [facility] Comment on above: Performed By: #### C BC #### [facility] [address] [place] [address] Dr. Neisha Araiza Platelet mean volume (Bld) [Entitic vol] 9.5 fL Normal 9.5-13.5 [facility] Comment on above: Performed By: #### C BC #### [facility] [address] [place] [address] Dr. Neisha Araiza PLT 200 103/ul Normal 150-450 [facility] Comment on above: Performed By: #### C BC #### [facility] [address] [place] [address] Dr. Neisha Araiza RBC 4.06 106/ul Critically low 4.20-5.40 [facility] Comment on above: Performed By: #### C BC #### [facility] [address] [place] [address] Dr. Neisha Araiza WBC 7.0 103/ul Normal 4.0-11.0 [facility] Comment on above: Performed By: #### C BC #### [facility] [address] [place] [address] Dr. Neisha Araiza LIPASEon 01-05-2022 Lipase [Catalytic activity/Vol] 133.0 U/L Normal 73.0-393.0 [facility] Comment on above: Performed By: #### C BC #### [facility] [address] [place] [address] Dr. Neisha Araiza POINT OF CARE GLUCOSEon Glucose [Mass/Vol] 240 mg/dL Critically high 74-106 [facility] Comment on above: Performed By: #### P OCGLUC #### [facility] [address] [place] [address] Dr. Neisha Araiza Glucose [Mass/Vol] 240 mg/dL Critically high -106 [facility] Comment on above: Performed By: #### L IPA, BASIA, CMP #### [facility] [address] [place] [address] Dr. Neisha Araiza PROF 14(COMP METB)on 022 Albumin [Mass/Vol] 2.3 g/dL Critically low 3.4-5.0 [facility] Comment on above: Performed By: #### C BC #### [facility] [address] [place] [address] Dr. Neisha Araiza Albumin/Globulin [Mass ratio] 0.8 {ratio} Normal [facility] Comment on above: Performed By: #### C BC #### [facility] [address] [place] [address] Dr. Neisha Araiza ALP [Catalytic activity/Vol] 78 U/L Normal 46-116 [facility] Comment on above: Performed By: #### C BC #### [facility] [address] [place] [address] Dr. Neisha Araiza ALT [Catalytic activity/Vol] 21 U/L Normal 14-59 [facility] Comment on above: Performed By: #### C BC #### [facility] [address] [place] [address] Dr. Neisha Araiza Anion gap [Moles/Vol] 15.2 mmol/L Normal [facility] Comment on above: Performed By: #### C BC #### [facility] [address] [place] [address] Dr. Neisha Araiza AST [Catalytic activity/Vol] 20 U/L Normal 15-37 [facility] Comment on above: Performed By: #### C BC #### [facility] [address] [address] [address] Neisha Araiza Bilirubin [Mass/Vol] 0.8 mg/dL Normal 0.2-1.0 [facility] Comment on above: Performed By: #### C BC #### [facility] [address] [address] [address] Neisha Araiza Calcium [Mass/Vol] 7.5 mg/dL Critically low 8.5-10.1 [facility] Comment on above: Performed By: #### C BC #### [facility] [address] [address] [address] Neisha Araiza Chloride [Moles/Vol] 105 mmol/L Normal 98-107 [facility] Comment on above: Performed By: #### C BC #### [facility] [address] [place] [address] Dr. Neisha Araiza CO2 [Moles/Vol] 19.2 mmol/L Critically low 21.0-32.0 [facility] Comment on above: Performed By: #### C BC #### [facility] [address] [address] [address] Neisha Araiza Creatinine [Mass/Vol] 0.59 mg/dL Normal 0.55-1.02 [facility] Comment on above: Performed By: #### C BC #### [facility] [address] [address] [address] Neisha Araiza EGFR-AF CHILEAN >60 Normal >=60 [facility] Comment on above: Performed By: #### C BC #### [facility] [address] [address] [address] Neisha Ariaza EGFR-NON AF CHILEAN >60 Normal >=60 [facility] Comment on above: Performed By: #### C BC #### [facility] [address] [place] [address] Dr. Neisha Araiza Globulin (S) [Mass/Vol] 2.9 g/dL Normal [facility] Comment on above: Performed By: #### C BC #### [facility] [address] [address] [address] Neisha Araiza Glucose [Mass/Vol] 240 mg/dL Critically high 74-106 [facility] Comment on above: Performed By: #### C BC #### [facility] [address] [place] [address] Dr. Neisha Araiza Potassium [Moles/Vol] 3.4 mmol/L Critically low 3.5-5.1 [facility] [facility] Comment on above: Performed By: #### C BC #### [facility] [address] [place] [address] Dr. Neisha Araiza Protein [Mass/Vol] 5.2 g/dL Critically low 6.4-8.2 Th [facility] Comment on above: Performed By: #### C BC #### [facility] [address] [place] [address] Dr. Neisha Araiza Sodium [Moles/Vol] 136 mmol/L Normal 136-145 [facility] Comment on above: Performed By: #### C BC #### [facility] [address] [place] [address] Dr. Neisha Araiza Urea nitrogen [Mass/Vol] 9.0 mg/dL Normal 7.0-18.0 [facility] Comment on above: Performed By: #### C BC #### [facility] [address] [place] [address] Dr. Neisha Araiza Urea nitrogen/Creatinine [Mass ratio] 15.3 mg/mg Normal [facility] Comment on above: Performed By: #### C BC #### [facility] [address] [place] [address] Dr. Neisha Araiza BLOOD GASES BTYon 01-04-2022 02 MODE ROOM AIR Normal [facility] Comment on above: Performed By: #### C BC #### [facility] [address] [place] [address] Dr. Neisha Araiza ALLENS TEST Positive Normal [facility] Comment on above: Performed By: #### C BC #### [facility] [address] [place] [address] Dr. Neisha Araiza Base excess Calc (Bld) [Moles/Vol] -10.81037 mmol/L Critically low -2.0-2.0 [facility] Comment on above: Performed By: #### C BC #### [facility] [address] [place] [address] Dr. Neisha Araiza BIPAP PRESSURE Normal [facility] Comment on above: Performed By: #### C BC #### [facility] [address] [place] [address] Dr. Neisha Araiza CO2 [Moles/Vol] 29.0 mmol/L Critically high 23.0-28.0 [facility] Comment on above: Performed By: #### C BC #### [facility] [address] [place] [address] Dr. Neisha Araiza CPAP [facility] Comment on above: Performed By: #### C BC #### [facility] [address] [place] [address] Dr. Neisha Araiza FIO2 [facility] Comment on above: Performed By: #### C BC #### [facility] [address] [place] [address] Dr. Neisha Araiza HCO3 (Bld) [Moles/Vol] 17.9 mmol/L Critically low 22.0-26.0 [facility] Comment on above: Performed By: #### C BC #### [facility] [address] [place] [address] Dr. Neisha Araiza LPM [facility] Comment on above: Performed By: #### C BC #### [facility] [address] [place] [address] Dr. Neisha Araiza MINUTE VOLUME Normal [facility] Comment on above: Performed By: #### C BC #### [facility] [address] [place] [address] Dr. Neisha Araiza Oxygen (Bld) [Partial pressure] 95.8 mm[Hg] Normal 80.0-100.0 [facility] Comment on above: Performed By: #### C BC #### [facility] [address] [place] [address] Dr. Neisha Araiza Oxygen saturation in Blood 98.6 % Normal 95.0-100.0 [facility] Comment on above: Performed By: #### C BC #### [facility] [address] [place] [address] Dr. Neisha Araiza PCO2 22.9 mmHg Critically low 35.0-45.0 [facility] Comment on above: Performed By: #### C BC #### [facility] [address] [place] [address] Dr. Neisha Araiza PEEP [facility] Comment on above: Performed By: #### C BC #### [facility] [address] [place] [address] Dr. Neisha Araiza pH (Bld) 7.408 [pH] Normal 7.350-7.450 [facility] Comment on above: Performed By: #### C BC #### [facility] [address] [place] [address] Dr. Neisha Araiza PIP [facility] Comment on above: Performed By: #### C BC #### [facility] [address] [place] [address] Dr. Neisha Araiza PS [facility] Comment on above: Performed By: #### C BC #### [facility] [address] [place] [address] Dr. Neisha Araiza PUNCTURE SITE RR [facility] Comment on above: Performed By: #### C BC #### [facility] [address] [place] [address] Dr. Neisha Araiza RATE [facility] Comment on above: Performed By: #### C BC #### [facility] [address] [place] [address] Dr. Neisha Araiza VENT MODE [facility] Comment on above: Performed By: #### C BC #### [facility] [address] [place] [address] Dr. Neisha Araiza [facility] Comment on above: Performed By: #### C BC #### [facility] [address] [place] [address] Dr. Neisha Araiza CBC AUTO DIFFon 01-04-2022 BASO # 0.0 103/ul Normal 0.0-0.1 [facility] Comment on above: Performed By: #### C BC #### [facility] [address] [address] [address] Neisha Araiza Basophils/100 WBC (Bld) 0.3 % Normal 0.2-2.0 [facility] Comment on above: Performed By: #### C BC #### [facility] [address] [address] [address] Neisha Araiza EO # 0.0 103/ul Normal 0.0-0.7 [facility] Comment on above: Performed By: #### C BC #### [facility] [address] [place] [address] Dr. Neisha Araiza Eosinophils/100 WBC (Bld) 0.0 % Critically low 0.9-7.0 [facility] Comment on above: Performed By: #### C BC #### [facility] [address] [place] [address] Dr. Neisha Araiza Erythrocyte distribution width (RBC) [Ratio] 13.5 % Normal 11.0-15.0 [facility] Comment on above: Performed By: #### C BC #### [facility] [address] [place] [address] Dr. Neisha Araiza Hematocrit (Bld) [Volume fraction] 39.1 % Normal 36.0-48.0 [facility] Comment on above: Performed By: #### C BC #### [facility] [address] [place] [address] Dr. Neisha Araiza Hemoglobin (Bld) [Mass/Vol] 13.3 g/dL Normal 12.0-16.0 [facility] Comment on above: Performed By: #### C BC #### [facility] [address] [place] [address] Dr. Neisha Araiza IG # 0.05 10e3/ul Critically high 0.00-0.03 [facility] Comment on above: Performed By: #### C BC #### [facility] [address] [place] [address] Dr. Neisha Araiza IG % 0.5 % Normal 0.0-0.5 [facility] Comment on above: Performed By: #### C BC #### [facility] [address] [place] [address] Dr. Neisha Araiza LYMPH # 1.4 103/ul Normal 1.2-3.8 [facility] Comment on above: Performed By: #### C BC #### [facility] [address] [place] [address] Dr. Neisha Araiza Lymphocytes/100 WBC (Bld) 14.8 % Critically low 20.5-60.0 [facility] Comment on above: Performed By: #### C BC #### [facility] [address] [place] [address] Dr. Neisha Araiza MANUAL DIFF REQ NO Normal [facility] Comment on above: Performed By: #### C BC #### [facility] [address] [place] [address] Dr. Neisha Araiza MCH (RBC) [Entitic mass] 28.6 pg Normal 26.7-34.0 [facility] Comment on above: Performed By: #### C BC #### [facility] [address] [place] [address] Dr. Neisha Araiza MCHC (RBC) [Mass/Vol] 34.0 g/dL Normal 29.9-35.2 [facility] Comment on above: Performed By: #### C BC #### [facility] [address] [place] [address] Dr. Neisha Araiza MCV (RBC) [Entitic vol] 84.1 fL Normal 81.0-99.0 [facility] Comment on above: Performed By: #### C BC #### [facility] [address] [place] [address] Dr. Neisha Araiza MONO # 0.6 103/ul Normal 0.3-0.8 [facility] Comment on above: Performed By: #### C BC #### [facility] [address] [place] [address] Dr. Neisha Araiza Monocytes/100 WBC (Bld) 5.8 % Normal 1.7-12.0 [facility] Comment on above: Performed By: #### C BC #### [facility] [address] [place] [address] Dr. Neisha Araiza NEUT # 7.6 103/ul Critically high 1.4-6.5 [facility] Comment on above: Performed By: #### C BC #### [facility] [address] [place] [address] Dr. Neisha Araiza Neutrophils/100 WBC (Bld) 78.6 % Critically high 43.0-75.0 [facility] Comment on above: Performed By: #### C BC #### [facility] [address] [place] [address] Dr. Neisha Araiza Platelet mean volume (Bld) [Entitic vol] 9.9 fL Normal 9.5-13.5 [facility] Comment on above: Performed By: #### C BC #### [facility] [address] [place] [address] Dr. Neisha Araiza PLT 280 103/ul Normal 150-450 [facility] Comment on above: Performed By: #### C BC #### [facility] [address] [place] [address] Dr. Neisha Araiza RBC 4.65 106/ul Normal 4.20-5.40 [facility] Comment on above: Performed By: #### C BC #### [facility] [address] [place] [address] Dr. Neisha Araiza WBC 9.7 103/ul Normal 4.0-11.0 [facility] Comment on above: Performed By: #### C BC #### [facility] [address] [place] [address] Dr. Neisha Araiza Covid-19 PCR ([facility])on SARS-CoV-2 (COVID-19) RNA ITM+probe Ql (Unsp spec) Not detected Normal NOT DETECTED [facility] Comment on above: Result Comment: When [...] for this test is supported by the Credit Verifier of Health and Human Service's declaration that [...] used). Performed By: #### C BC #### [facility] [address] [place] [address] Dr. Neisha Araiza POINT OF CARE GLUCOSEon 0 Glucose [Mass/Vol] 215 mg/dL Critically high [address] [place] [address] Comment on above: Performed By: #### L BASIA DRIVER CMP #### [facility] [address] [place] [address] Dr. Neisha Araiza Glucose [Mass/Vol] 187 mg/dL Critically high [address] [place] [address] Comment on above: Performed By: #### C BC #### [facility] [address] [place] [address] Dr. Neisha Araiza Glucose [Mass/Vol] 240 mg/dL Critically high [address] [place] [address] Comment on above: Performed By: #### C BC #### [facility] [address] [place] [address] Dr. Neisha Araiza Glucose [Mass/Vol] 251 mg/dL Critically high [address] [place] [address] Comment on above: Performed By: #### C BC #### [facility] [address] [place] [address] Dr. Neisha Araiza Glucose [Mass/Vol] 264 mg/dL Critically high [address] [place] [address] Comment on above: Performed By: #### L BASIA DRIVER, CMP #### [facility] [address] [place] [address] Dr. Neisha Araiza PROF 14(COMP METB)on 022 Albumin [Mass/Vol] 2.9 g/dL Critically low 3.4-5.0 [facility] Comment on above: Performed By: #### L IPA BASIA, CMP #### [facility] [address] [address] [address] Neisha Araiza Albumin/Globulin [Mass ratio] 0.9 {ratio} Normal [facility] Comment on above: Performed By: #### L IPA BASIA, CMP #### [facility] [address] [address] [address] Neisha Araiza ALP [Catalytic activity/Vol] 92 U/L Normal 46-116 [facility] Comment on above: Performed By: #### L NEISHA BASIA, CMP #### [facility] [address] [address] [address] Neisha Araiza ALT [Catalytic activity/Vol] 28 U/L Normal 14-59 [facility] Comment on above: Performed By: #### L NEISHA BASIA, CMP #### [facility] [address] [address] [address] Neisha Araiza Anion gap [Moles/Vol] 19.9 mmol/L Normal [facility] Comment on above: Performed By: #### L NEISHA BASIA, CMP #### [facility] [address] [address] [address] Neisha Araiza AST [Catalytic activity/Vol] 14 U/L Critically low 15-37 [facility] Comment on above: Performed By: #### L IPA BASIA, CMP #### [facility] [address] [address] [address] Neisha Araiza Calcium [Mass/Vol] 7.8 mg/dL Critically low 8.5-10.1 [facility] Comment on above: Performed By: #### L IPA, BASIA, CMP #### [facility] [address] [address] [address] Neisha Araiza Chloride [Moles/Vol] 102 mmol/L Normal 98-107 [facility] Comment on above: Performed By: #### L IPA, BASIA, CMP #### [facility] [address] [address] [address] Neisha Araiza CO2 [Moles/Vol] 17.7 mmol/L Critically low 21.0-32.0 [facility] Comment on above: Performed By: #### L NEISHA BASIA, CMP #### [facility] [address] [address] [address] Neisha Araiza Creatinine [Mass/Vol] 0.60 mg/dL Normal 0.55-1.02 [facility] Comment on above: Performed By: #### L NEISHA BASIA, CMP #### [facility] [address] [address] [address] Neisha Araiza EGFR-AF CHILEAN >60 Normal >=60 [facility] Comment on above: Performed By: #### L NEISHA BASIA, CMP #### [facility] [address] [address] [address] Neisha Araiza EGFR-NON AF CHILEAN >60 Normal >=60 [facility] Comment on above: Performed By: #### L BASIA DRIVER, CMP #### [facility] [address] [address] [address] Neisha Araiza Globulin (S) [Mass/Vol] 3.4 g/dL Normal [facility] Comment on above: Performed By: #### L BASIA DRIVER, CMP #### [facility] [address] [address] [address] Neisha Araiza Glucose [Mass/Vol] 272 mg/dL Critically high 74-106 [facility] Comment on above: Performed By: #### L NEISHA BASIA, CMP #### [facility] [address] [address] [address] Neisha Araiza Potassium [Moles/Vol] 3.6 mmol/L Normal 3.5-5.1 [facility] Comment on above: Performed By: #### L NEISHA BASIA, CMP #### [facility] [address] [address] [address] Neisha Araiza Protein [Mass/Vol] 6.3 g/dL Critically low 6.4-8.2 Th e [facility] Comment on above: Performed By: #### L IPA, BASIA, CMP #### [facility] [address] [address] [address] Neisha Araiza Sodium [Moles/Vol] 136 mmol/L Normal 136-145 [facility] Comment on above: Performed By: #### L IPA, BASIA, CMP #### [facility] [address] [address] [address] Neisha Araiza Urea nitrogen [Mass/Vol] 9.0 mg/dL Normal 7.0-18.0 [facility] Comment on above: Performed By: #### L IPA, BASIA, CMP #### [facility] [address] [address] [address] Neisha Araiza Urea nitrogen/Creatinine [Mass ratio] 15.0 mg/mg Normal [facility] Comment on above: Performed By: #### L IPA, BASIA, CMP #### [facility] [address] [place] [address] Dr. Neisha Araiza XR ABD FLAT_UPon 01-04-2022 [...] MARIAELENA BROWN Date: 2022-01-04 01:26 Normal [facility] ACETONE SERUMon 01-03-2022 ACETONE Negative Normal NEGATIVE [facility] Comment on above: Performed By: #### A CETON #### [facility] [address] [place] [address] Dr. Neisha Araiza ACETONE SMALL Abnormal NEGATIVE [facility] Comment on above: Performed By: #### C BC #### [facility] [address] [address] [address] Neisha Araiza AMYLASEon 01-03-2022 Amylase [Catalytic activity/Vol] 15 U/L Critically low 25-115 [facility] Comment on above: Performed By: #### L IPA, BASIA, CMP #### [facility] [address] [place] [address] Dr. Neisha Araiza CARDIAC BRI ADMITon 022 CK [Catalytic activity/Vol] 44 U/L Normal 26-192 [facility] Comment on above: Performed By: #### L IPA, BASIA, CMP #### [facility] [address] [place] [address] Dr. Neisha Araiza CK.MB [Mass/Vol] 0.93 ng/mL Normal <=3.60 [facility] Comment on above: Performed By: #### L IPA, BASIA, CMP #### [facility] [address] [place] [address] Dr. Neisha Araiza HSTROP 4.1 pg/mL Normal 4.0-51.3 [facility] Comment on above: Result Comment: CUT- OFF POINTS HAVE BEEN ESTABLISHED BASED ON THE FOURTH UNIVERSAL DEFINITIONS OF MYOCARDIAL INFARCTION. THE UPPER REFERENCE LIMIT (URL) OF TROPONIN, DEFINED THE 99TH PERCENTILE OF cTnI DISTRIBUTION IN A REFERENCE POPULATION, HAS BEEN CONFIRMED THE DECISION THRESHOLD FOR DC DIAGNOSIS. Performed By: #### L IPA, BASIA, CMP #### [facility] [address] [place] [address] Dr. Neisha Araiza ROCIO 20 ng/mL Normal 9-82 [facility] Comment on above: Performed By: #### L IPA, BASIA, CMP #### [facility] [address] [place] [address] Dr. Neisha Araiza CBC AUTO DIFFon 01-03-2022 Basophils/100 WBC (Bld) 0.3 % Normal 0.2-2.0 [facility] Comment on above: Performed By: #### C BC #### [facility] [address] [place] [address] Dr. Neisha Araiza Hematocrit (Bld) [Volume fraction] 42.7 % Normal 36.0-48.0 [facility] Comment on above: Performed By: #### C BC #### [facility] [address] [place] [address] Dr. Neisha Araiza Hemoglobin (Bld) [Mass/Vol] 14.3 g/dL Normal 12.0-16.0 [facility] Comment on above: Performed By: #### C BC #### [facility] [address] [place] [address] Dr. Neisha Araiza IG # 0.03 10e3/ul Normal 0.00-0.03 [facility] Comment on above: Performed By: #### C BC #### [facility] [address] [place] [address] Dr. Neisha Araiza IG % 0.3 % Normal 0.0-0.5 [facility] Comment on above: Performed By: #### C BC #### [facility] [address] [place] [address] Dr. Neisha Araiza LYMPH # 1.1 103/ul Critically low 1.2-3.8 [facility] Comment on above: Performed By: #### C BC #### [facility] [address] [place] [address] Dr. Neisha Araiza Lymphocytes/100 WBC (Bld) 12.9 % Critically low 20.5-60.0 [facility] Comment on above: Performed By: #### C BC #### [facility] [address] [place] [address] Dr. Neisha rAaiza MCHC (RBC) [Mass/Vol] 33.5 g/dL Normal 29.9-35.2 [facility] Comment on above: Performed By: #### C BC #### [facility] [address] [place] [address] Dr. Neisha Araiza MCV (RBC) [Entitic vol] 85.2 fL Normal 81.0-99.0 [facility] Comment on above: Performed By: #### C BC #### [facility] [address] [place] [address] Dr. Neisha Araiza MONO # 0.3 103/ul Normal 0.3-0.8 [facility] Comment on above: Performed By: #### C BC #### [facility] [address] [place] [address] Dr. Neisha Araiza Monocytes/100 WBC (Bld) 3.3 % Normal 1.7-12.0 [facility] Comment on above: Performed By: #### C BC #### [facility] [address] [place] [address] Dr. Neisha Araiza NEUT # 7.3 103/ul Critically high 1.4-6.5 [facility] Comment on above: Performed By: #### C BC #### [facility] [address] [place] [address] Dr. Neisha Araiza Neutrophils/100 WBC (Bld) 83.2 % Critically high 43.0-75.0 [facility] Comment on above: Performed By: #### C BC #### [facility] [address] [place] [address] Dr. Neisha Araiza PLT 281 103/ul Normal 150-450 [facility] Comment on above: Performed By: #### C BC #### [facility] [address] [place] [address] Dr. Neisha Araiza RBC 5.01 106/ul Normal 4.20-5.40 [facility] Comment on above: Performed By: #### C BC #### [facility] [address] [place] [address] Dr. Neisha Araiza WBC 8.8 103/ul Normal 4.0-11.0 [facility] Comment on above: Performed By: #### C BC #### [facility] [address] [place] [address] Dr. Neisha Araiza BASO # 0.0 103/ul Normal 0.0-0.1 [facility] Comment on above: Performed By: #### C BC #### [facility] [address] [place] [address] Dr. Neisha Araiza Performed By: #### A CETON #### [facility] [address] [place] [address] Dr. Neisha Araiza Basophils/100 WBC (Bld) 0.5 % Normal 0.2-2.0 [facility] Comment on above: Performed By: #### A CETON #### [facility] [address] [place] [address] Dr. Neisha Araiza EO # 0.0 103/ul Normal 0.0-0.7 [facility] Comment on above: Performed By: #### C BC #### [facility] [address] [place] [address] Dr. Neisha Araiza Performed By: #### A CETON #### [facility] [address] [place] [address] Dr. Neisha Araiza Eosinophils/100 WBC (Bld) 0.0 % Critically low 0.9-7.0 [facility] Comment on above: Performed By: #### C BC #### [facility] [address] [place] [address] Dr. Neisha Araiza Performed By: #### A CETON #### [facility] [address] [place] [address] Dr. Neisha Araiza Erythrocyte distribution width (RBC) [Ratio] 13.2 % Normal 11.0-15.0 [facility] Comment on above: Performed By: #### C BC #### [facility] [address] [place] [address] Dr. Neisha Araiza Performed By: #### A CETON #### [facility] [address] [place] [address] Dr. Neisha Araiza Hematocrit (Bld) [Volume fraction] 45.8 % Normal 36.0-48.0 [facility] Comment on above: Performed By: #### A CETON #### [facility] [address] [place] [address] Dr. Neisha Araiza Hemoglobin (Bld) [Mass/Vol] 15.6 g/dL Normal 12.0-16.0 [facility] Comment on above: Performed By: #### A CETON #### [facility] [address] [place] [address] Dr. Neisha Araiza IG # 0.05 10e3/ul Critically high 0.00-0.03 [facility] Comment on above: Performed By: #### A CETON #### [facility] [address] [place] [address] Dr. Neisha Araiza IG % 0.6 % Critically high 0.0-0.5 [facility] Comment on above: Performed By: #### A CETON #### [facility] [address] [place] [address] Dr. Neisha Araiza LYMPH # 0.7 103/ul Critically low 1.2-3.8 [facility] Comment on above: Performed By: #### A CETON #### [facility] [address] [place] [address] Dr. Neisha Araiza Lymphocytes/100 WBC (Bld) 8.3 % Critically low 20.5-60.0 [facility] Comment on above: Performed By: #### A CETON #### [facility] [address] [place] [address] Dr. Neisha Araiza MANUAL DIFF REQ NO Normal [facility] Comment on above: Performed By: #### C BC #### [facility] [address] [place] [address] Dr. Neisha Araiza Performed By: #### A CETON #### [facility] [address] [place] [address] Dr. Neisha Araiza MCH (RBC) [Entitic mass] 28.5 pg Normal 26.7-34.0 [facility] Comment on above: Performed By: #### C BC #### [facility] [address] [place] [address] Dr. Neisha Araiza Performed By: #### A CETON #### [facility] [address] [place] [address] Dr. Neisha Araiza MCHC (RBC) [Mass/Vol] 34.1 g/dL Normal 29.9-35.2 [facility] Comment on above: Performed By: #### A CETON #### [facility] [address] [place] [address] Dr. Neisha Araiza MCV (RBC) [Entitic vol] 83.7 fL Normal 81.0-99.0 [facility] Comment on above: Performed By: #### A CETON #### [facility] [address] [place] [address] Dr. Neisha Araiza MONO # 0.2 103/ul Critically low 0.3-0.8 [facility] Comment on above: Performed By: #### A CETON #### [facility] [address] [place] [address] Dr. Neisha Araiza Monocytes/100 WBC (Bld) 2.7 % Normal 1.7-12.0 [facility] Comment on above: Performed By: #### A CETON #### [facility] [address] [place] [address] Dr. Neisha Araiza NEUT # 6.9 103/ul Critically high 1.4-6.5 [facility] Comment on above: Performed By: #### A CETON #### [facility] [address] [place] [address] Dr. Neisha Araiza Neutrophils/100 WBC (Bld) 87.9 % Critically high 43.0-75.0 [facility] Comment on above: Performed By: #### A CETON #### [facility] [address] [place] [address] Dr. Neisha Araiza Platelet mean volume (Bld) [Entitic vol] 9.9 fL Normal 9.5-13.5 [facility] Comment on above: Performed By: #### C BC #### [facility] [address] [place] [address] Dr. Neisha Araiza Performed By: #### A CETON #### [facility] [address] [place] [address] Dr. Neisha Araiza PLT 260 103/ul Normal 150-450 [facility] Comment on above: Performed By: #### A CETON #### [facility] [address] [place] [address] Dr. Neisha Araiza RBC 5.47 106/ul Critically high 4.20-5.40 [facility] Comment on above: Performed By: #### A CETON #### [facility] [address] [place] [address] Dr. Neisha Araiza WBC 7.8 103/ul Normal 4.0-11.0 [facility] Comment on above: Performed By: #### A CETON #### [facility] [address] [place] [address] Dr. Neisha Araiza LIPASEon 01-03-2022 Lipase [Catalytic activity/Vol] 72.0 U/L Critically low 73.0-393.0 [facility] Comment on above: Performed By: #### L BASIA DRIVER, CMP #### [facility] [address] [place] [address] Dr. Neisha Araiza PH VENOUS BLOODon 01-03-2022 PCO2 VENOUS 34.2 mmHg Critically low 40.0-52.0 [facility] Comment on above: Performed By: #### L BASIA DRIVER CMP #### [facility] [address] [place] [address] Dr. Neisha Araiza pH VENOUS 7.370 Normal 7.330-7.430 [facility] Comment on above: Performed By: #### L BASIA DRIVER, CMP #### [facility] [address] [place] [address] Dr. Neisha Araiza POINT OF CARE GLUCOSEon Glucose [Mass/Vol] 283 mg/dL Critically high 74-106 [facility] Comment on above: Performed By: #### L BASIA DRIVER CMP #### [facility] [address] [place] [address] Dr. Neisha Araiza Glucose [Mass/Vol] 297 mg/dL Critically high 74-106 [facility] Comment on above: Performed By: #### A CETON #### [facility] [address] [place] [address] Dr. Neisha Araiza PROF 14(COMP METB)on 022 Albumin [Mass/Vol] 3.6 g/dL Normal 3.4-5.0 [facility] Comment on above: Performed By: #### L BASIA DRIVER, CMP #### [facility] [address] [place] [address] Dr. Neisha Araiza Albumin/Globulin [Mass ratio] 0.8 {ratio} Normal [facility] Comment on above: Performed By: #### L BASIA RDIVER, CMP #### [facility] [address] [address] [address] Neisha Araiza ALP [Catalytic activity/Vol] 131 U/L Critically high 46-116 [facility] Comment on above: Performed By: #### L BASIA DRIVER, CMP #### [facility] [address] [address] [address] Neisha Araiza ALT [Catalytic activity/Vol] 39 U/L Normal 14-59 [facility] Comment on above: Performed By: #### L BASIA DRIVER, CMP #### [facility] [address] [address] [address] Neisha Araiza Anion gap [Moles/Vol] 20.7 mmol/L Normal [facility] Comment on above: Performed By: #### L BASIA DRIVER, CMP #### [facility] [address] [address] [address] Neisha Araiza AST [Catalytic activity/Vol] 19 U/L Normal 15-37 [facility] Comment on above: Performed By: #### L BASIA DRIVER, CMP #### [facility] [address] [address] [address] Neisha Araiza Calcium [Mass/Vol] 8.9 mg/dL Normal 8.5-10.1 [facility] Comment on above: Performed By: #### L BASIA DRIVER, CMP #### [facility] [address] [address] [address] Neisha Araiza Chloride [Moles/Vol] 97 mmol/L Critically low 98-107 [facility] Comment on above: Performed By: #### L BASIA DRIVER, CMP #### [facility] [address] [address] [address] Neisha Araiza CO2 [Moles/Vol] 19.2 mmol/L Critically low 21.0-32.0 [facility] Comment on above: Performed By: #### L BASIA DRIVER, CMP #### [facility] [address] [address] [address] Neisha Araiza Creatinine [Mass/Vol] 0.60 mg/dL Normal 0.55-1.02 [facility] Comment on above: Performed By: #### L BASIA DRIVER, CMP #### [facility] [address] [address] [address] Neisha Araiza Globulin (S) [Mass/Vol] 4.3 g/dL Normal [facility] Comment on above: Performed By: #### L IPA BASIA, CMP #### [facility] [address] [place] [address] Dr. Neisha Araiza Glucose [Mass/Vol] 368 mg/dL Critically high 74-106 [facility] Comment on above: Performed By: #### L IPA BASIA, CMP #### [facility] [address] [place] [address] Dr. Neisha Araiza Protein [Mass/Vol] 7.9 g/dL Normal 6.4-8.2 [facility] Comment on above: Performed By: #### L NEISHA BASIA, CMP #### [facility] [address] [place] [address] Dr. Neisha Araiza Sodium [Moles/Vol] 133 mmol/L Critically low 136-145 [facility] Comment on above: Performed By: #### L BASIA DRIVER, CMP #### [facility] [address] [place] [address] Dr. Neisha Araiza Urea nitrogen [Mass/Vol] 13.0 mg/dL Normal 7.0-18.0 [facility] Comment on above: Performed By: #### L BASIA DRIVER, CMP #### [facility] [address] [place] [address] Dr. Neisha Araiza Urea nitrogen/Creatinine [Mass ratio] 21.7 mg/mg Normal [facility] Comment on above: Performed By: #### L BASIA DRIVER, CMP #### [facility] [address] [place] [address] Dr. Neisha Araiza PROF CHEM 8 (BAS METB)on Anion gap [Moles/Vol] 20.2 mmol/L Normal [facility] Comment on above: Performed By: #### L NEISHA BASIA, CMP #### [facility] [address] [place] [address] Dr. Neisha Araiza Calcium [Mass/Vol] 8.0 mg/dL Critically low 8.5-10.1 [facility] Comment on above: Performed By: #### L BASIA DRIVER, CMP #### [facility] [address] [address] [address] Neisha Araiza Chloride [Moles/Vol] 102 mmol/L Normal 98-107 [facility] Comment on above: Performed By: #### L BASIA DRIVER, CMP #### [facility] [address] [address] [address] Neisha Araiza CO2 [Moles/Vol] 16.7 mmol/L Critically low 21.0-32.0 [facility] Comment on above: Performed By: #### L BASIA DRIVER, CMP #### [facility] [address] [place] [address] Dr. Neisha Araiza Creatinine [Mass/Vol] 0.62 mg/dL Normal 0.55-1.02 [facility] Comment on above: Performed By: #### L BASIA DRIVER, CMP #### [facility] [address] [place] [address] Dr. Neisha Araiza Glucose [Mass/Vol] 287 mg/dL Critically high 74-106 [facility] Comment on above: Performed By: #### L BASIA DRIVER, CMP #### [facility] [address] [place] [address] Dr. Neisha Araiza Sodium [Moles/Vol] 135 mmol/L Critically low 136-145 [facility] Comment on above: Performed By: #### L BASIA DRIVER, CMP #### [facility] [address] [place] [address] Dr. Neisha Araiza Urea nitrogen [Mass/Vol] 11.0 mg/dL Normal 7.0-18.0 [facility] Comment on above: Performed By: #### L BASIA DRIVER, CMP #### [facility] [address] [place] [address] Dr. Neisha Araiza Urea nitrogen/Creatinine [Mass ratio] 17.7 mg/mg Normal [facility] Comment on above: Performed By: #### L BASIA DRIVER, CMP #### [facility] [address] [place] [address] Dr. Neisha Araiza EGFR-AF CHILEAN >60 Normal >=60 [facility] Comment on above: Performed By: #### L BASIA DRIVER, CMP #### [facility] [address] [place] [address] Dr. Neisha Araiza EGFR-NON AF CHILEAN >60 Normal >=60 [facility] Comment on above: Performed By: #### L BASIA DRIVER, CMP #### [facility] [address] [place] [address] Dr. Neisha Araiza Potassium [Moles/Vol] 3.9 mmol/L Normal 3.5-5.1 [facility] Comment on above: Performed By: #### L BASIA DRIVER, CMP #### [facility] [address] [place] [address] Dr. Neisha Araiza CBC AUTO DIFFon 12-12-2021 BASO # 0.1 103/ul Normal 0.0-0.1 [facility] Comment on above: Performed By: #### C BC #### [facility] [address] [place] [address] Dr. Neisha Araiza Basophils/100 WBC (Bld) 0.6 % Normal 0.2-2.0 [facility] Comment on above: Performed By: #### C BC #### [facility] [address] [place] [address] Dr. Neisha Araiza EO # 0.0 103/ul Normal 0.0-0.7 [facility] Comment on above: Performed By: #### C BC #### [facility] [address] [place] [address] Dr. Neisha Araiza Eosinophils/100 WBC (Bld) 0.5 % Critically low 0.9-7.0 [facility] Comment on above: Performed By: #### C BC #### [facility] [address] [place] [address] Dr. Neisha Araiza Erythrocyte distribution width (RBC) [Ratio] 12.6 % Normal 11.0-15.0 [facility] Comment on above: Performed By: #### C BC #### [facility] [address] [place] [address] Dr. Neisha Araiza Hematocrit (Bld) [Volume fraction] 40.7 % Normal 36.0-48.0 [facility] Comment on above: Performed By: #### C BC #### [facility] [address] [place] [address] Dr. Neisha Araiza Hemoglobin (Bld) [Mass/Vol] 14.4 g/dL Normal 12.0-16.0 [facility] Comment on above: Performed By: #### C BC #### [facility] [address] [place] [address] Dr. Neisha Araiza IG # 0.05 10e3/ul Critically high 0.00-0.03 [facility] Comment on above: Performed By: #### C BC #### [facility] [address] [place] [address] Dr. Neisha Araiza IG % 0.6 % Critically high 0.0-0.5 [facility] Comment on above: Performed By: #### C BC #### [facility] [address] [place] [address] Dr. Neisha Araiza LYMPH # 2.3 103/ul Normal 1.2-3.8 [facility] Comment on above: Performed By: #### C BC #### [facility] [address] [place] [address] Dr. Neisha Araiza Lymphocytes/100 WBC (Bld) 26.2 % Normal 20.5-60.0 [facility] Comment on above: Performed By: #### C BC #### [facility] [address] [place] [address] Dr. Neisha Araiza MANUAL DIFF REQ NO Normal [facility] Comment on above: Performed By: #### C BC #### [facility] [address] [place] [address] Dr. Neisha Araiza MCH (RBC) [Entitic mass] 28.4 pg Normal 26.7-34.0 [facility] Comment on above: Performed By: #### C BC #### [facility] [address] [address] [address] Neisha Araiza MCHC (RBC) [Mass/Vol] 35.4 g/dL Critically high 29.9-35.2 [facility] Comment on above: Performed By: #### C BC #### [facility] [address] [place] [address] Dr. Neisha Araiza MCV (RBC) [Entitic vol] 80.3 fL Critically low 81.0-99.0 [facility] Comment on above: Performed By: #### C BC #### [facility] [address] [place] [address] Dr. Neisha Araiza MONO # 0.5 103/ul Normal 0.3-0.8 [facility] Comment on above: Performed By: #### C BC #### [facility] [address] [place] [address] Dr. Neisha Araiza Monocytes/100 WBC (Bld) 5.5 % Normal 1.7-12.0 [facility] Comment on above: Performed By: #### C BC #### [facility] [address] [place] [address] Dr. Neisha Araiza NEUT # 5.7 103/ul Normal 1.4-6.5 [facility] Comment on above: Performed By: #### C BC #### [facility] [address] [place] [address] Dr. Neisha Araiza Neutrophils/100 WBC (Bld) 66.6 % Normal 43.0-75.0 [facility] Comment on above: Performed By: #### C BC #### [facility] [address] [place] [address] Dr. Neisha Araiza Platelet mean volume (Bld) [Entitic vol] 9.5 fL Normal 9.5-13.5 [facility] Comment on above: Performed By: #### C BC #### [facility] [address] [place] [address] Dr. Neisha Araiza PLT 266 103/ul Normal 150-450 [facility] Comment on above: Performed By: #### C BC #### [facility] [address] [place], [place] [id number] Dr. Neisha Araiza RBC 5.07 106/ul Normal 4.20-5.40 [facility] Comment on above: Performed By: #### C BC #### [facility] [address] [place] [address] Dr. Neisha Araiza WBC 8.6 103/ul Normal 4.0-11.0 [facility] Comment on above: Performed By: #### C BC #### [facility] [address] [place] [address] Dr. Neisha Araiza POINT OF CARE GLUCOSEon 11-30 Glucose [Mass/Vol] 157 mg/dL Critically high 74-106 [facility] Comment on above: Performed By: #### C BC #### [facility] [address] [place] [address] Dr. Neisha Araiza Glucose [Mass/Vol] 223 mg/dL Critically high 74-106 [facility] Comment on above: Performed By: #### L BASIA DRIVER, CMP #### [facility] [address] [place] [address] Dr. Neisha Araiza PROF 14(COMP METB)on 022 Albumin [Mass/Vol] 3.1 g/dL Critically low 3.4-5.0 [facility] Comment on above: Performed By: #### C BC #### [facility] [address] [place] [address] Dr. Neisha Araiza Albumin/Globulin [Mass ratio] 0.9 {ratio} Normal [facility] Comment on above: Performed By: #### C BC #### [facility] [address] [place] [address] Dr. Neisha Araiza ALP [Catalytic activity/Vol] 96 U/L Normal 46-116 [facility] Comment on above: Performed By: #### C BC #### [facility] [address] [place] [address] Dr. Neisha Araiza ALT [Catalytic activity/Vol] 28 U/L Normal 14-59 [facility] Comment on above: Performed By: #### C BC #### [facility] [address] [address] [address] Neisha Araiza Anion gap [Moles/Vol] 17.9 mmol/L Normal [facility] Comment on above: Performed By: #### C BC #### [facility] [address] [place] [address] Dr. Neisha Araiza AST [Catalytic activity/Vol] 19 U/L Normal 15-37 [facility] Comment on above: Performed By: #### C BC #### [facility] [address] [place] [address] Dr. Neisha Araiza Bilirubin [Mass/Vol] 1.0 mg/dL Normal 0.2-1.0 [facility] Comment on above: Performed By: #### C BC #### [facility] [address] [place] [address] Dr. Neisha Araiza Calcium [Mass/Vol] 8.1 mg/dL Critically low 8.5-10.1 [facility] Comment on above: Performed By: #### C BC #### [facility] [address] [place] [address] Dr. Neisha Araiza Chloride [Moles/Vol] 95 mmol/L Critically low 98-107 [facility] Comment on above: Performed By: #### C BC #### [facility] [address] [place] [address] Dr. Neisha Araiza CO2 [Moles/Vol] 19.2 mmol/L Critically low 21.0-32.0 [facility] Comment on above: Performed By: #### C BC #### [facility] [address] [place] [address] Dr. Neisha Araiza Creatinine [Mass/Vol] 0.51 mg/dL Critically low 0.55-1.02 [facility] Comment on above: Performed By: #### C BC #### [facility] [address] [place] [address] Dr. Neisha Araiza EGFR-AF CHILEAN >60 Normal >=60 [facility] Comment on above: Performed By: #### C BC #### [facility] [address] [place] [address] Dr. Neisha Araiza EGFR-NON AF CHILEAN >60 Normal >=60 [facility] Comment on above: Performed By: #### C BC #### [facility] [address] [place] [address] Dr. Neisha Araiza Globulin (S) [Mass/Vol] 3.6 g/dL Normal [facility] Comment on above: Performed By: #### C BC #### [facility] [address] [address] [address] Neisha Araiza Glucose [Mass/Vol] 230 mg/dL Critically high 74-106 [facility] Comment on above: Performed By: #### C BC #### [facility] [address] [place] [address] Dr. Neisha Araiza Potassium [Moles/Vol] 3.1 mmol/L Critically low 3.5-5.1 [facility] Comment on above: Performed By: #### C BC #### [facility] [address] [place] [address] Dr. Neisha Araiza Protein [Mass/Vol] 6.7 g/dL Normal 6.4-8.2 [facility] Comment on above: Performed By: #### C BC #### [facility] [address] [place] [address] Dr. Neisha Araiza Sodium [Moles/Vol] 129 mmol/L Critically low 136-145 [facility] Comment on above: Performed By: #### C BC #### [facility] [address] [place] [address] Dr. Neisha Araiza Urea nitrogen [Mass/Vol] 5.0 mg/dL Critically low 7.0-18.0 [facility] Comment on above: Performed By: #### C BC #### [facility] [address] [place] [address] Dr. Neisha Araiza Urea nitrogen/Creatinine [Mass ratio] 9.8 mg/mg Normal [facility] Comment on above: Performed By: #### C BC #### [facility] [address] [place] [address] Dr. Neisha Araiza CBC AUTO DIFFon 12-11-2021 BASO # 0.0 103/ul Normal 0.0-0.1 [facility] Comment on above: Performed By: #### C BC #### [facility] [address] [place] [address] Dr. Neisha Araiza Basophils/100 WBC (Bld) 0.5 % Normal 0.2-2.0 [facility] Comment on above: Performed By: #### C BC #### [facility] [address] [place] [address] Dr. Neisha Araiza EO # 0.0 103/ul Normal 0.0-0.7 [facility] Comment on above: Performed By: #### C BC #### [facility] [address] [place] [address] Dr. Neisha Araiza Eosinophils/100 WBC (Bld) 0.2 % Critically low 0.9-7.0 [facility] Comment on above: Performed By: #### C BC #### [facility] [address] [place] [address] Dr. Neisha Araiza Erythrocyte distribution width (RBC) [Ratio] 12.4 % Normal 11.0-15.0 [facility] Comment on above: Performed By: #### C BC #### [facility] [address] [place] [address] Dr. Neisha Araiza Hematocrit (Bld) [Volume fraction] 39.3 % Normal 36.0-48.0 [facility] Comment on above: Performed By: #### C BC #### [facility] [address] [place] [address] Dr. Neisha Araiza Hemoglobin (Bld) [Mass/Vol] 13.5 g/dL Normal 12.0-16.0 [facility] Comment on above: Performed By: #### C BC #### [facility] [address] [place] [address] Dr. Neisha Araiza IG # 0.04 10e3/ul Critically high 0.00-0.03 [facility] Comment on above: Performed By: #### C BC #### [facility] [address] [place] [address] Dr. Neisha Araiza IG % 0.5 % Normal 0.0-0.5 [facility] Comment on above: Performed By: #### C BC #### [facility] [address] [place] [address] Dr. Neisha Araiza LYMPH # 1.8 103/ul Normal 1.2-3.8 [facility] Comment on above: Performed By: #### C BC #### [facility] [address] [place] [address] Dr. Neisha Araiza Lymphocytes/100 WBC (Bld) 21.7 % Normal 20.5-60.0 [facility] Comment on above: Performed By: #### C BC #### [facility] [address] [place] [address] Dr. Neisha Araiza MANUAL DIFF REQ NO Normal [facility] Comment on above: Performed By: #### C BC #### [facility] [address] [place] [address] Dr. Neisha Araiza MCH (RBC) [Entitic mass] 28.2 pg Normal 26.7-34.0 [facility] Comment on above: Performed By: #### C BC #### [facility] [address] [place] [address] Dr. Neisha Araiza MCHC (RBC) [Mass/Vol] 34.4 g/dL Normal 29.9-35.2 [facility] Comment on above: Performed By: #### C BC #### [facility] [address] [place] [address] Dr. Neisha Araiza MCV (RBC) [Entitic vol] 82.2 fL Normal 81.0-99.0 [facility] Comment on above: Performed By: #### C BC #### [facility] [address] [place] [address] Dr. Neisha Araiza MONO # 0.5 103/ul Normal 0.3-0.8 [facility] Comment on above: Performed By: #### C BC #### [facility] [address] [place] [address] Dr. Neisha Araiza Monocytes/100 WBC (Bld) 6.4 % Normal 1.7-12.0 [facility] Comment on above: Performed By: #### C BC #### [facility] [address] [address] [address] Neisha Araiza NEUT # 5.7 103/ul Normal 1.4-6.5 [facility] Comment on above: Performed By: #### C BC #### [facility] [address] [place] [address] Dr. Neisha Araiza Neutrophils/100 WBC (Bld) 70.7 % Normal 43.0-75.0 [facility] Comment on above: Performed By: #### C BC #### [facility] [address] [place] [address] Dr. Neisha Araiza Platelet mean volume (Bld) [Entitic vol] 9.4 fL Critically low 9.5-13.5 [facility] Comment on above: Performed By: #### C BC #### [facility] [address] [place] [address] Dr. Neisha Araiza PLT 250 103/ul Normal 150-450 [facility] Comment on above: Performed By: #### C BC #### [facility] [address] [place] [address] Dr. Neisha Araiza RBC 4.78 106/ul Normal 4.20-5.40 [facility] Comment on above: Performed By: #### C BC #### [facility] [address] [place] [address] Dr. Neisha Araiza WBC 8.1 103/ul Normal 4.0-11.0 [facility] Comment on above: Performed By: #### C BC #### [facility] [address] [place] [address] Dr. Neisha Araiza POINT OF CARE GLUCOSEon 11-30 Glucose [Mass/Vol] 232 mg/dL Critically high 74-106 [facility] Comment on above: Performed By: #### L BASIA DRIVER, CMP #### [facility] [address] [place] [address] Dr. Neisha Araiza Glucose [Mass/Vol] 197 mg/dL Critically high 74-106 [facility] Comment on above: Performed By: #### L IPA, BASIA, CMP #### [facility] [address] [place] [address] Dr. Neisha Araiza Glucose [Mass/Vol] 289 mg/dL Critically high 74-106 [facility] Comment on above: Performed By: #### C BC #### [facility] [address] [place] [address] Dr. Neisha Araiza Glucose [Mass/Vol] 200 mg/dL Critically high 74-106 [facility] Comment on above: Performed By: #### A CETON #### [facility] [address] [place] [address] Dr. Neisha Araiza PROF 14(COMP METB)on 022 Albumin [Mass/Vol] 2.9 g/dL Critically low 3.4-5.0 [facility] Comment on above: Performed By: #### L IPA BASIA, CMP #### [facility] [address] [place] [address] Dr. Neisha Araiza Albumin/Globulin [Mass ratio] 0.8 {ratio} Normal [facility] Comment on above: Performed By: #### L IPA BASIA, CMP #### [facility] [address] [place] [address] Dr. Neisha Araiza ALP [Catalytic activity/Vol] 90 U/L Normal 46-116 [facility] Comment on above: Performed By: #### L IPA BASIA, CMP #### [facility] [address] [place] [address] Dr. Neisha Araiza ALT [Catalytic activity/Vol] 26 U/L Normal 14-59 [facility] Comment on above: Performed By: #### L IPA, BASIA, CMP #### [facility] [address] [place] [address] Dr. Neisha Araiza Anion gap [Moles/Vol] 17.6 mmol/L Normal [facility] Comment on above: Performed By: #### L IPA, BASIA, CMP #### [facility] [address] [place] [address] Dr. Neisha Araiza AST [Catalytic activity/Vol] 19 U/L Normal 15-37 [facility] Comment on above: Performed By: #### L BASIA DRIVER, CMP #### [facility] [address] [place] [address] Dr. Neisha Araiza Bilirubin [Mass/Vol] 0.8 mg/dL Normal 0.2-1.0 [facility] Comment on above: Performed By: #### L NEISHA BASIA, CMP #### [facility] [address] [place] [address] Dr. Neisha Araiza Calcium [Mass/Vol] 7.9 mg/dL Critically low 8.5-10.1 [facility] Comment on above: Performed By: #### L BASIA DRIVER, CMP #### [facility] [address] [place] [address] Dr. Neisha Araiza Chloride [Moles/Vol] 98 mmol/L Normal 98-107 [facility] Comment on above: Performed By: #### L BASIA DRIVER, CMP #### [facility] [address] [place] [address] Dr. Neisha Araiza CO2 [Moles/Vol] 18.6 mmol/L Critically low 21.0-32.0 [facility] Comment on above: Performed By: #### L BASIA DRIVER, CMP #### [facility] [address] [place] [address] Dr. Neisha Araiza Creatinine [Mass/Vol] 0.50 mg/dL Critically low 0.55-1.02 [facility] Comment on above: Performed By: #### L BASIA DRIVER, CMP #### [facility] [address] [place] [address] Dr. Neisha Araiza EGFR-AF CHILEAN >60 Normal >=60 [facility] Comment on above: Performed By: #### L BASIA DRIVER, CMP #### [facility] [address] [place] [address] Dr. Neisha Araiza EGFR-NON AF CHILEAN >60 Normal >=60 [facility] Comment on above: Performed By: #### L BASIA DRIVER, CMP #### [facility] [address] [place] [address] Dr. Neisha Araiza Globulin (S) [Mass/Vol] 3.5 g/dL Normal [facility] Comment on above: Performed By: #### L BASIA DRIVER, CMP #### [facility] [address] [address] [address] Neisha Araiza Glucose [Mass/Vol] 195 mg/dL Critically high 74-106 [facility] Comment on above: Performed By: #### L BASIA DRIVER, CMP #### [facility] [address] [address] [address] Neisha Araiza Potassium [Moles/Vol] 3.2 mmol/L Critically low 3.5-5.1 [facility] Comment on above: Performed By: #### L BASIA DRIVER, CMP #### [facility] [address] [place] [address] Dr. Neisha Araiza Protein [Mass/Vol] 6.4 g/dL Normal 6.4-8.2 [facility] Comment on above: Performed By: #### L BASIA DRIVER, CMP #### [facility] [address] [place] [address] Dr. Neisha Araiza Sodium [Moles/Vol] 131 mmol/L Critically low 136-145 [facility] Comment on above: Performed By: #### L BASIA DRIVER, CMP #### [facility] [address] [place] [address] Dr. Neisha Araiza Urea nitrogen [Mass/Vol] 7.0 mg/dL Normal 7.0-18.0 [facility] Comment on above: Performed By: #### L BASIA DRIVER, CMP #### [facility] [address] [place] [address] Dr. Neisha Araiza Urea nitrogen/Creatinine [Mass ratio] 14.0 mg/mg Normal [facility] Comment on above: Performed By: #### L BASIA DRIVER, CMP #### [facility] [address] [place] [address] Dr. Neisha Araiza ACETONE SERUMon 12-10-2021 ACETONE SMALL Abnormal NEGATIVE [facility] Comment on above: Performed By: #### L BASIA DRIVER, CMP #### [facility] [address] [place] [address] Dr. Neisha Araiza AMYLASEon 12-10-2021 Amylase [Catalytic activity/Vol] 31 U/L Normal 25-115 [facility] Comment on above: Performed By: #### L IPA, BASIA, CMP #### [facility] [address] [place] [address] Dr. Neisha Araiza CBC AUTO DIFFon 12-10-2021 BASO # 0.0 103/ul Normal 0.0-0.1 [facility] Comment on above: Performed By: #### C BC #### [facility] [address] [place] [address] Dr. Neisha Araiza Basophils/100 WBC (Bld) 0.5 % Normal 0.2-2.0 [facility] Comment on above: Performed By: #### C BC #### [facility] [address] [place] [address] Dr. Neisha Araiza EO # 0.0 103/ul Normal 0.0-0.7 [facility] Comment on above: Performed By: #### C BC #### [facility] [address] [place] [address] Dr. Neisha Araiza Eosinophils/100 WBC (Bld) 0.0 % Critically low 0.9-7.0 [facility] Comment on above: Performed By: #### C BC #### [facility] [address] [place] [address] Dr. Neisha Araiza Erythrocyte distribution width (RBC) [Ratio] 12.5 % Normal 11.0-15.0 [facility] Comment on above: Performed By: #### C BC #### [facility] [address] [place] [address] Dr. Neisha Araiza Hematocrit (Bld) [Volume fraction] 43.3 % Normal 36.0-48.0 [facility] Comment on above: Performed By: #### C BC #### [facility] [address] [place] [address] Dr. Neisha Araiza Hemoglobin (Bld) [Mass/Vol] 15.3 g/dL Normal 12.0-16.0 [facility] Comment on above: Performed By: #### C BC #### [facility] [address] [address] [address] Neisha Araiza IG # 0.06 10e3/ul Critically high 0.00-0.03 [facility] Comment on above: Performed By: #### C BC #### [facility] [address] [place] [address] Dr. Neisha Araiza IG % 0.7 % Critically high 0.0-0.5 [facility] Comment on above: Performed By: #### C BC #### [facility] [address] [place] [address] Dr. Neisha Araiza LYMPH # 0.9 103/ul Critically low 1.2-3.8 [facility] Comment on above: Performed By: #### C BC #### [facility] [address] [place] [address] Dr. Neisha Araiza Lymphocytes/100 WBC (Bld) 10.8 % Critically low 20.5-60.0 [facility] Comment on above: Performed By: #### C BC #### [facility] [address] [place] [address] Dr. Neisha Araiza MANUAL DIFF REQ NO Normal [facility] Comment on above: Performed By: #### C BC #### [facility] [address] [place] [address] Dr. Neisha Araiza MCH (RBC) [Entitic mass] 28.4 pg Normal 26.7-34.0 [facility] Comment on above: Performed By: #### C BC #### [facility] [address] [place] [address] Dr. Neisha Araiza MCHC (RBC) [Mass/Vol] 35.3 g/dL Critically high 29.9-35.2 [facility] Comment on above: Performed By: #### C BC #### [facility] [address] [place] [address] Dr. Neisha Araiza MCV (RBC) [Entitic vol] 80.3 fL Critically low 81.0-99.0 [facility] Comment on above: Performed By: #### C BC #### [facility] [address] [address] [address] Neisha Araiza MONO # 0.5 103/ul Normal 0.3-0.8 [facility] Comment on above: Performed By: #### C BC #### [facility] [address] [address] [address] Neisha Araiza Monocytes/100 WBC (Bld) 5.7 % Normal 1.7-12.0 [facility] Comment on above: Performed By: #### C BC #### [facility] [address] [place] [address] Dr. Neisha Araiza NEUT # 7.0 103/ul Critically high 1.4-6.5 [facility] Comment on above: Performed By: #### C BC #### [facility] [address] [place] [address] Dr. Neisha Araiza Neutrophils/100 WBC (Bld) 82.3 % Critically high 43.0-75.0 [facility] Comment on above: Performed By: #### C BC #### [facility] [address] [place] [address] Dr. Neisha Araiza Platelet mean volume (Bld) [Entitic vol] 9.4 fL Critically low 9.5-13.5 [facility] Comment on above: Performed By: #### C BC #### [facility] [address] [place] [address] Dr. Neisha Araiza PLT 271 103/ul Normal 150-450 [facility] Comment on above: Performed By: #### C BC #### [facility] [address] [place] [address] Dr. Neisha Araiza RBC 5.39 106/ul Normal 4.20-5.40 [facility] Comment on above: Performed By: #### C BC #### [facility] [address] [place] [address] Dr. Neisha Araiza WBC 8.5 103/ul Normal 4.0-11.0 [facility] Comment on above: Performed By: #### C BC #### [facility] [address] [address] [address] ABD/PELVIS WO CONon [...] MATTHEW SILVER Date: 2021-12-10 14:48 Normal [facility] CULTURE URINEon 12-10-2021 CULTURE URINE Culture Observations: GREATER THAN TWO ORGANISMS PRESENT. PLEASE RESUBMIT CLEAN CATCH MID-STREAM URINE IF CLINICALLY INDICATED. Normal [facility] Comment on above: Performed By: #### A CETON #### [facility] [address] [address] [address] Neisha Araiza [facility]30 SARS-CoV-2 (COVID-19) RNA TIM+probe Ql (Unsp spec) Not detected Normal NOT DETECTED [facility] Comment on above: Result Comment: When [...] for this test is supported by the Credit Verifier of Health and Human Service's declaration that [...] By: #### L BASIA DRIVER, CMP #### [facility] [address] [place] [address] Dr. Neisha Araiza DRUG SCREEN RAPID (URINE)on 12-10-2021 AMP Negative Normal NEGATIVE [facility] Comment on above: Performed By: #### A CETON #### [facility] [address] [place] [address] Dr. Neisha Araiza BAR Negative Normal NEGATIVE [facility] Comment on above: Performed By: #### A CETON #### [facility] [address] [place] [address] Dr. Neisha Araiza BUP Negative Normal NEGATIVE [facility] Comment on above: Performed By: #### A CETON #### [facility] [address] [place] [address] Dr. Neisha Araiza BZO Negative Normal NEGATIVE [facility] Comment on above: Performed By: #### A CETON #### [facility] [address] [place] [address] Dr. Neisha Araiza VIVEK Negative Normal NEGATIVE [facility] Comment on above: Performed By: #### A CETON #### [facility] [address] [place] [address] Dr. Neisha Araiza CUT-OFFS SEE BELOW Normal [facility] Comment on above: Result Comment: AMP [...] ng/mL Performed By: #### A CETON #### [facility] [address] [place] [address] Dr. Neisha Araiza DRUG CUT HEADER DRUG CLASS TEST SYSTEM CUT-OFF CONCENTRATIONS ARE FOLLOWS: Normal [facility] Comment on above: Performed By: #### A CETON #### [facility] [address] [place] [address] Dr. Neisha Araiza mAMP Negative Normal NEGATIVE [facility] Comment on above: Performed By: #### A CETON #### [facility] [address] [place] [address] Dr. Neisha Araiza MTD Negative Normal NEGATIVE [facility] Comment on above: Performed By: #### A CETON #### [facility] [address] [place] [address] Dr. Neisha Araiza OPI Negative Normal NEGATIVE [facility] Comment on above: Performed By: #### A CETON #### [facility] [address] [place] [address] Dr. Neisha Araiza OXY Negative Normal NEGATIVE [facility] Comment on above: Performed By: #### A CETON #### [facility] [address] [place] [address] Dr. Neisha Araiza PCP Negative Normal NEGATIVE [facility] Comment on above: Performed By: #### A CETON #### [facility] [address] [place] [address] Dr. Neisha Araiza PPX Negative Normal NEGATIVE [facility] Comment on above: Performed By: #### A CETON #### [facility] [address] [place] [address] Dr. Neisha Araiza TCA Negative Normal NEGATIVE [facility] Comment on above: Performed By: #### A CETON #### [facility] [address] [place] [address] Dr. Neisha Araiza THC Negative Normal NEGATIVE [facility] Comment on above: Performed By: #### A CETON #### [facility] [address] [place] [address] Dr. Neisha Araiza ER URINE PROFILEon 2 Bilirubin Ql (U) Negative Normal NEGATIVE [facility] Comment on above: Performed By: #### E RUR, DRUGRPD #### [facility] [address] [place] [address] Dr. Neisha Araiza Clarity (U) CLEAR Normal CLEAR [facility] Comment on above: Performed By: #### E RUR, DRUGRPD #### [facility] [address] [place] [address] Dr. Neisha Araiza Color (U) YELLOW Normal YELLOW [facility] Comment on above: Performed By: #### E RUR, DRUGRPD #### [facility] [address] [place] [address] Dr. Neisha FERNANDEZMagnus A micrscopic examination will be performed if indicated. Normal [facility] Comment on above: Performed By: #### E RUR, DRUGRPD #### [facility] [address] [place] [address] Dr. Niesha Araiza Glucose Ql (U) 250 mg/dl Abnormal NEGATIVE [facility] Comment on above: Performed By: #### E RUR, DRUGRPD #### [facility] [address] [place] [address] Dr. Neisha Araiza Hemoglobin Ql (U) Negative Normal NEGATIVE [facility] Comment on above: Performed By: #### E RUR, DRUGRPD #### [facility] [address] [place] [address] Dr. Neisha Araiza Ketones Ql (U) 15 mg/dl Abnormal NEGATIVE [facility] Comment on above: Performed By: #### E RUR, DRUGRPD #### [facility] [address] [place] [address] Dr. Neisha Araiza LEUKOCYTES Negative Normal NEGATIVE [facility] Comment on above: Performed By: #### E RUR, DRUGRPD #### [facility] [address] [place] [address] Dr. Neisha Araiza Nitrite Ql (U) Negative Normal NEGATIVE [facility] Comment on above: Performed By: #### E RUR, DRUGRPD #### [facility] [address] [place] [address] Dr. Neisha Araiza pH (U) 6.0 [pH] Normal 5-9 [facility] Comment on above: Performed By: #### E RUR, DRUGRPD #### [facility] [address] [place] [address] Dr. Neisha Araiza SPEC GRAVITY 1.020 Normal 1.005-<=1.025 [facility] Comment on above: Performed By: #### E RUR, DRUGRPD #### [facility] [address] [place] [address] Dr. Neisha Araiza UA PROTEIN Negative Normal NEGATIVE/ TRACE [facility] Comment on above: Performed By: #### E RUR, DRUGRPD #### [facility] [address] [place] [address] Dr. Neisha Araiza UR MICRO IND NOT INDICATED Normal [facility] Comment on above: Performed By: #### E RUR, DRUGRPD #### [facility] [address] [place] [address] Dr. Neisha Araiza Urobilinogen Qn (U) 0.2 {Ankit'U}/dL Normal 0.2 - 1. 0 [facility] Comment on above: Performed By: #### E RUR, DRUGRPD #### [facility] [address] [place] [address] Dr. Neisha Araiza H PYLORI ANTIBODY IGGon 05- H. PYLORI IGG ABS 0.29 Index Value Normal 0.00-0.79 [facility] Comment on above: Result Comment: Nega tive <0.80 Equivocal 0.80 - 0.89 Positive >0.89 Performed By: #### C BC #### [facility] [address] [place] [address] Dr. Neisha Araiza INFLUENZA A AND B AGon 12-10 INFLUANEGH SEE BELOW Normal [facility] Comment on above: Result Comment: Nega tive for Flu A protein angiten. Infection due to Flu A cannot be ruled out. Flu A angiten in the sample may be below the detection limit of the test. Performed By: #### C BC #### [facility] [address] [place] [address] Dr. Neisha Araiza INFLUBNEGH SEE BELOW Normal [facility] Comment on above: Result Comment: Nega tive for Flu B protein antigen. Infection due to Flu B cannot be ruled out. Flu B antigen in the sample may be below the detection limit of the test. Performed By: #### C BC #### [facility] [address] [place] [address] Dr. Neisha Araiza INFLUENZA A AG Negative Normal NEGATIVE SEE COMMENT [facility] Comment on above: Performed By: #### C BC #### [facility] [address] [place] [address] Dr. Neisha Araiza INFLUENZA B AG Negative Normal NEGATIVE SEE COMMENT [facility] Comment on above: Performed By: #### C BC #### [facility] [address] [place] [address] Dr. Neisha Araiza INTERNAL CONTROLS Within Normal Limits Normal Wi thin Normal Limits [facility] Comment on above: Performed By: #### C BC #### [facility] [address] [place] [address] Dr. Neisha Araiza LACTATE/LACTIC ACIDon 2021 Lactate [Moles/Vol] 0.9 mmol/L Normal 0.4-1.9 [facility] Comment on above: Performed By: #### C BC #### [facility] [address] [place] [address] Dr. Neisha Araiza Lactate [Moles/Vol] 0.8 mmol/L Normal 0.4-1.9 [facility] Comment on above: Performed By: #### C BC #### [facility] [address] [place] [address] Dr. Neisha Araiza LIPASEon 12-10-2021 Lipase [Catalytic activity/Vol] 146.0 U/L Normal 73.0-393.0 [facility] Comment on above: Performed By: #### L BASIA DRIVER, CMP #### [facility] [address] [place] [address] Dr. Neisha Araiza POINT OF CARE GLUCOSEon 11-30 Glucose [Mass/Vol] 222 mg/dL Critically high 74-106 [facility] Comment on above: Performed By: #### C BC #### [facility] [address] [place] [address] Dr. Neisha Araiza PREG HCG QUALon 12-10-2021 , QUAL Negative Normal NEGATIVE [facility] Comment on above: Performed By: #### L BASIA DRIVER, CMP #### [facility] [address] [place] [address] Dr. Neisha Araiza PROF 14(COMP METB)on 022 Albumin [Mass/Vol] 3.7 g/dL Normal 3.4-5.0 [facility] Comment on above: Performed By: #### L BASIA DRIVER, CMP #### [facility] [address] [place] [address] Dr. Neisha Araiza Albumin/Globulin [Mass ratio] 0.9 {ratio} Normal [facility] Comment on above: Performed By: #### L NEISHA BASIA, CMP #### [facility] [address] [place] [address] Dr. Neisha Araiza ALP [Catalytic activity/Vol] 118 U/L Critically high 46-116 [facility] Comment on above: Performed By: #### L NEISHA BASIA, CMP #### [facility] [address] [place] [address] Dr. Neisha Araiza ALT [Catalytic activity/Vol] 36 U/L Normal 14-59 [facility] Comment on above: Performed By: #### L IPA BASIA, CMP #### [facility] [address] [place] [address] Dr. Neisha Araiza Anion gap [Moles/Vol] 17.8 mmol/L Normal Th e [facility] Comment on above: Performed By: #### L BASIA DRIVER, CMP #### [facility] [address] [address] [address] Neisha Araiza AST [Catalytic activity/Vol] 22 U/L Normal 15-37 [facility] Comment on above: Performed By: #### L BASIA DRIVER, CMP #### [facility] [address] [place] [address] Dr. Neisha rAaiza Bilirubin [Mass/Vol] 0.9 mg/dL Normal 0.2-1.0 [facility] Comment on above: Performed By: #### L BASIA DRIVER, CMP #### [facility] [address] [place] [address] Dr. Neisha Araiza Calcium [Mass/Vol] 8.8 mg/dL Normal 8.5-10.1 [facility] Comment on above: Performed By: #### L BASIA DRIVER, CMP #### [facility] [address] [place] [address] Dr. Neisha Araiza Chloride [Moles/Vol] 99 mmol/L Normal 98-107 [facility] Comment on above: Performed By: #### L BASIA DRIVER, CMP #### [facility] [address] [place] [address] Dr. Neisha Araiza CO2 [Moles/Vol] 19.6 mmol/L Critically low 21.0-32.0 [facility] Comment on above: Performed By: #### L BASIA DRIVER, CMP #### [facility] [address] [place] [address] Dr. Neisha Araiza Creatinine [Mass/Vol] 0.52 mg/dL Critically low 0.55-1.02 [facility] Comment on above: Performed By: #### L BASIA DRIVER, CMP #### [facility] [address] [place] [address] Dr. Neisha Araiza EGFR-AF CHILEAN >60 Normal >=60 [facility] Comment on above: Performed By: #### L BASIA DRIVER, CMP #### [facility] [address] [place] [address] Dr. Neisha Araiza EGFR-NON AF CHILEAN >60 Normal >=60 [facility] Comment on above: Performed By: #### L BASIA DRIVER, CMP #### [facility] [address] [place] [address] Dr. Neisha Araiza Globulin (S) [Mass/Vol] 4.2 g/dL Normal [facility] Comment on above: Performed By: #### L BASIA DRIVER, CMP #### [facility] [address] [place] [address] Dr. Neisha Araiza Glucose [Mass/Vol] 172 mg/dL Critically high 74-106 [facility] Comment on above: Performed By: #### L BASIA DRIVER, CMP #### [facility] [address] [place] [address] Dr. Neisha Araiza Potassium [Moles/Vol] 3.4 mmol/L Critically low 3.5-5.1 [facility] Comment on above: Performed By: #### L BASIA DRIVER, CMP #### [facility] [address] [place] [address] Dr. Neisha Araiza Protein [Mass/Vol] 7.9 g/dL Normal 6.4-8.2 [facility] Comment on above: Performed By: #### L BASIA DRIVER, CMP #### [facility] [address] [place] [address] Dr. Neisha Araiza Sodium [Moles/Vol] 133 mmol/L Critically low 136-145 [facility] Comment on above: Performed By: #### L BASIA DRIVER, CMP #### [facility] [address] [place] [address] Dr. Neisha Araiza Urea nitrogen [Mass/Vol] 11.0 mg/dL Normal 7.0-18.0 [facility] Comment on above: Performed By: #### L BASIA DRIVER, CMP #### [facility] [address] [place] [address] Dr. Neisha Araiza Urea nitrogen/Creatinine [Mass ratio] 21.2 mg/mg Normal [facility] Comment on above: Performed By: #### L BASIA DRIVER, CMP #### [facility] [address] [place] [address] Dr. Neisha Araiza TSHon 12-10-2021 TSH 0.594 uIU/mL Normal 0.358-3.740 [facility] Comment on above: Performed By: #### L BASIA DRIVER, CMP #### [facility] [address] [place] [address] Dr. Neisha Araiza TSH RANGE SEE BELOW Normal [facility] Comment on above: Result Comment: <0.3 4 UIU/ml HYPERTHYROID 0.34-5.60 UIU/ml EUTHYROID >5.60 UIU/ml HYPOTHYROID Performed By: #### L BASIA DRIVER, CMP #### [facility] [address] [place] [address] Dr. Neisha Araiza CBC AUTO DIFFon 12-09-2021 BASO # 0.0 103/ul Normal 0.0-0.1 [facility] Comment on above: Performed By: #### L BASIA DRIVER, CMP #### [facility] [address] [place] [address] Dr. Neisha Araiza Basophils/100 WBC (Bld) 0.4 % Normal 0.2-2.0 [facility] Comment on above: Performed By: #### L BASIA DRIVER, CMP #### [facility] [address] [place] [address] Dr. Neisha Araiza EO # 0.0 103/ul Normal 0.0-0.7 [facility] Comment on above: Performed By: #### L BASIA DRIVER, CMP #### [facility] [address] [place] [address] Dr. Neisha Araiza Eosinophils/100 WBC (Bld) 0.1 % Critically low 0.9-7.0 [facility] Comment on above: Performed By: #### L BASIA DRIVER, CMP #### [facility] [address] [place] [address] Dr. Neisha Araiza Erythrocyte distribution width (RBC) [Ratio] 12.8 % Normal 11.0-15.0 [facility] Comment on above: Performed By: #### L BASIA DRIVER, CMP #### [facility] [address] [address] [address] Neisha Araiza Hematocrit (Bld) [Volume fraction] 41.1 % Normal 36.0-48.0 [facility] Comment on above: Performed By: #### L BASIA DRIVER, CMP #### [facility] [address] [address] [address] Neisha Araiza Hemoglobin (Bld) [Mass/Vol] 13.8 g/dL Normal 12.0-16.0 [facility] Comment on above: Performed By: #### L BASIA DRIVER, CMP #### [facility] [address] [place] [address] Dr. Neisha Araiza IG # 0.05 10e3/ul Critically high 0.00-0.03 [facility] Comment on above: Performed By: #### L BASIA DRIVER, CMP #### [facility] [address] [place] [address] Dr. Neisha Araiza IG % 0.5 % Normal 0.0-0.5 [facility] Comment on above: Performed By: #### L BASIA DRIVER, CMP #### [facility] [address] [place] [address] Dr. Neisha Araiza LYMPH # 2.1 103/ul Normal 1.2-3.8 [facility] Comment on above: Performed By: #### L BASIA DRIVER, CMP #### [facility] [address] [place] [address] Dr. Neisha Araiza Lymphocytes/100 WBC (Bld) 22.8 % Normal 20.5-60.0 [facility] Comment on above: Performed By: #### L BASIA DRIVER, CMP #### [facility] [address] [place] [address] Dr. Neisha Araiza MANUAL DIFF REQ NO Normal [facility] Comment on above: Performed By: #### L BASIA DRIVER, CMP #### [facility] [address] [place] [address] Dr. Neisha Araiza MCH (RBC) [Entitic mass] 28.3 pg Normal 26.7-34.0 [facility] Comment on above: Performed By: #### L IPA, BASIA, CMP #### [facility] [address] [place] [address] Dr. Neisha Araiza MCHC (RBC) [Mass/Vol] 33.6 g/dL Normal 29.9-35.2 [facility] Comment on above: Performed By: #### L IPA BASIA, CMP #### [facility] [address] [place] [address] Dr. Neisha Araiza MCV (RBC) [Entitic vol] 84.4 fL Normal 81.0-99.0 [facility] Comment on above: Performed By: #### L IPA BASIA, CMP #### [facility] [address] [place] [address] Dr. Neisha Araiza MONO # 0.6 103/ul Normal 0.3-0.8 [facility] Comment on above: Performed By: #### L NEISHA BASIA, CMP #### [facility] [address] [place] [address] Dr. Neisha Araiza Monocytes/100 WBC (Bld) 6.0 % Normal 1.7-12.0 [facility] Comment on above: Performed By: #### L NEISHA BASIA, CMP #### [facility] [address] [place] [address] Dr. Neisha Araiza NEUT # 6.4 103/ul Normal 1.4-6.5 [facility] Comment on above: Performed By: #### L NEISHA BASIA, CMP #### [facility] [address] [place] [address] Dr. Neisha Araiza Neutrophils/100 WBC (Bld) 70.2 % Normal 43.0-75.0 [facility] Comment on above: Performed By: #### L IPA BASIA, CMP #### [facility] [address] [place] [address] Dr. Neisha Araiza Platelet mean volume (Bld) [Entitic vol] 9.8 fL Normal 9.5-13.5 [facility] Comment on above: Performed By: #### L IPA BASIA, CMP #### [facility] [address] [place] [address] Dr. Neisha Araiza PLT 258 103/ul Normal 150-450 [facility] Comment on above: Performed By: #### L BASIA DRIVER, CMP #### [facility] [address] [address] [address] Neisha Araiza RBC 4.87 106/ul Normal 4.20-5.40 [facility] Comment on above: Performed By: #### L BASIA DRIVER, CMP #### [facility] [address] [address] [address] Neisha Araiza WBC 9.1 103/ul Normal 4.0-11.0 [facility] Comment on above: Performed By: #### L BASIA DRIVER, CMP #### [facility] [address] [place] [address] Dr. Neisha Araiza POINT OF CARE GLUCOSEon 11-30 0-2021 Glucose [Mass/Vol] 222 mg/dL Critically high 74-106 [facility] Comment on above: Performed By: #### C BC #### [facility] [address] [place] [address] Dr. Neisha Araiza Glucose [Mass/Vol] 225 mg/dL Critically high 74-106 [facility] Comment on above: Performed By: #### C BC #### [facility] [address] [place] [address] Dr. Neisha Araiza PROF 14(COMP METB)on 022 Albumin [Mass/Vol] 3.1 g/dL Critically low 3.4-5.0 [facility] Comment on above: Performed By: #### C BC #### [facility] [address] [place] [address] Dr. Neisha Araiza Albumin/Globulin [Mass ratio] 0.9 {ratio} Normal [facility] Comment on above: Performed By: #### C BC #### [facility] [address] [place] [address] Dr. Neisha Araiza ALP [Catalytic activity/Vol] 99 U/L Normal 46-116 [facility] Comment on above: Performed By: #### C BC #### [facility] [address] [address] [address] Neisha Araiza ALT [Catalytic activity/Vol] 28 U/L Normal 14-59 [facility] Comment on above: Performed By: #### C BC #### [facility] [address] [address] [address] Neisha Araiza Anion gap [Moles/Vol] 15.0 mmol/L Normal [facility] Comment on above: Performed By: #### C BC #### [facility] [address] [address] [address] Neisha Araiza AST [Catalytic activity/Vol] 12 U/L Critically low 15-37 [facility] Comment on above: Performed By: #### C BC #### [facility] [address] [place] [address] Dr. Neisha Araiza Bilirubin [Mass/Vol] 1.3 mg/dL Critically high 0.2-1.0 [facility] Comment on above: Performed By: #### C BC #### [facility] [address] [place] [address] Dr. Neisha Araiza Calcium [Mass/Vol] 7.5 mg/dL Critically low 8.5-10.1 [facility] Comment on above: Performed By: #### C BC #### [facility] [address] [place] [address] Dr. Neisha Araiza Chloride [Moles/Vol] 101 mmol/L Normal 98-107 [facility] Comment on above: Performed By: #### C BC #### [facility] [address] [place] [address] Dr. Neisha Araiza CO2 [Moles/Vol] 14.9 mmol/L Critically low 21.0-32.0 [facility] Comment on above: Performed By: #### C BC #### [facility] [address] [place] [address] Dr. Neisha Araiza Creatinine [Mass/Vol] 0.52 mg/dL Critically low 0.55-1.02 [facility] Comment on above: Performed By: #### C BC #### [facility] [address] [place] [address] Dr. Neisha Araiza EGFR-AF CHILEAN >60 Normal >=60 [facility] Comment on above: Performed By: #### C BC #### [facility] [address] [address] [address] Neisha Araiza EGFR-NON AF CHILEAN >60 Normal >=60 [facility] Comment on above: Performed By: #### C BC #### [facility] [address] [address] [address] Neisha Araiza Globulin (S) [Mass/Vol] 3.6 g/dL Normal [facility] Comment on above: Performed By: #### C BC #### [facility] [address] [address] [address] Neisha Araiza Glucose [Mass/Vol] 232 mg/dL Critically high 74-106 [facility] Comment on above: Performed By: #### C BC #### [facility] [address] [address] [address] Neisha Araiza Potassium [Moles/Vol] 3.9 mmol/L Normal 3.5-5.1 [facility] Comment on above: Performed By: #### C BC #### [facility] [address] [address] [address] Neisha Araiza Protein [Mass/Vol] 6.7 g/dL Normal 6.4-8.2 [facility] Comment on above: Performed By: #### C BC #### [facility] [address] [address] [address] Neisha Araiza Sodium [Moles/Vol] 127 mmol/L Critically low 136-145 [facility] Comment on above: Performed By: #### C BC #### [facility] [address] [address] [address] Neisha Aariza Urea nitrogen [Mass/Vol] 9.0 mg/dL Normal 7.0-18.0 [facility] Comment on above: Performed By: #### C BC #### [facility] [address] [address] [address] Neisha Araiza Urea nitrogen/Creatinine [Mass ratio] 17.3 mg/mg Normal [facility] Comment on above: Performed By: #### C BC #### [facility] [address] [address] [address] Neisha Araiza UA RANDOM W/MICROSCOPICon BACTERIA NONE SEEN Normal NONE SEEN [facility] Comment on above: Performed By: #### U AMIC #### [facility] [address] [address] [address] Neisha Araiza Bilirubin Ql (U) Negative Normal NEGATIVE [facility] Comment on above: Performed By: #### U AMIC #### [facility] [address] [address] [address] Neisha Araiza CAST NONE SEEN Normal NONE SEEN [facility] Comment on above: Performed By: #### U AMIC #### [facility] [address] [place] [address] Dr. Neisha Araiza Clarity (U) CLEAR Normal CLEAR [facility] Comment on above: Performed By: #### U AMIC #### [facility] [address] [address] [address] Neisha Araiza Color (U) LT. YELLOW Normal YELLOW [facility] Comment on above: Performed By: #### U AMIC #### [facility] [address] [address] [address] Neisha Araiza Crystals LM Nom (Urine sed) NONE SEEN Normal NONE SEEN [facility] Comment on above: Performed By: #### U AMIC #### [facility] [address] [address] [address] Neisha Araiza Epithelial cells LM Ql (Urine sed) FEW Abnormal NONE SEEN /RARE [facility] Comment on above: Performed By: #### U AMIC #### [facility] [address] [address] [address] Neisha Araiza Glucose Ql (U) 500 mg/dl Abnormal NEGATIVE [facility] Comment on above: Performed By: #### U AMIC #### [facility] [address] [place] [address] Dr. Neisha Araiza Hemoglobin Ql (U) Negative Normal NEGATIVE [facility] Comment on above: Performed By: #### U AMIC #### [facility] [address] [address] [address] Neisha Araiza Ketones Ql (U) 80 mg/dl Abnormal NEGATIVE [facility] Comment on above: Performed By: #### U AMIC #### [facility] [address] [address] [address] Neisha Araiza LEUKOCYTES Negative Normal NEGATIVE [facility] Comment on above: Performed By: #### U AMIC #### [facility] [address] [address] [address] Neisha Araiza MUCOUS NONE SEEN Normal NONE SEEN [facility] Comment on above: Performed By: #### U AMIC #### [facility] [address] [place] [address] Dr. Neisha Araiza Nitrite Ql (U) Negative Normal NEGATIVE [facility] Comment on above: Performed By: #### U AMIC #### [facility] [address] [place] [address] Dr. Neisha Araiza pH (U) 6.0 [pH] Normal 5-9 [facility] Comment on above: Performed By: #### U AMIC #### [facility] [address] [place] [address] Dr. Neisha Araiza RBC NONE SEEN Abnormal 0-2 [facility] Comment on above: Performed By: #### U AMIC #### [facility] [address] [place] [address] Dr. Neisha Araiza SPEC GRAVITY 1.030 Abnormal 1.005-<=1.025 [facility] Comment on above: Performed By: #### U AMIC #### [facility] [address] [place] [address] Dr. Neisha Araiza UA PROTEIN TRACE Normal NEGATIVE/ TRACE [facility] Comment on above: Performed By: #### U AMIC #### [facility] [address] [place] [address] Dr. Neisha Araiza Urobilinogen Qn (U) 0.2 {Ankit'U}/dL Normal 0.2 - 1. 0 [facility] Comment on above: Performed By: #### U AMIC #### [facility] [address] [place] [address] Dr. Neisha Araiza WBC 0-2 Abnormal NONE SEEN [facility] Comment on above: Performed By: #### U AMIC #### [facility] [address] [place], [place] [address] Dr. Neisha Araiza AMYLASEon 12-08-2021 Amylase [Catalytic activity/Vol] 31 U/L Normal 25-115 [facility] Comment on above: Performed By: #### L IPA, BASIA, CMP #### [facility] [address] [place] [address] Dr. Neisha Araiza CBC AUTO DIFFon 12-08-2021 BASO # 0.0 103/ul Normal 0.0-0.1 [facility] Comment on above: Performed By: #### C BC #### [facility] [address] [place] [address] Dr. Neisha Araiza Basophils/100 WBC (Bld) 0.4 % Normal 0.2-2.0 [facility] Comment on above: Performed By: #### C BC #### [facility] [address] [place] [address] Dr. Neisha Araiza EO # 0.0 103/ul Normal 0.0-0.7 [facility] Comment on above: Performed By: #### C BC #### [facility] [address] [place] [address] Dr. Neisha Araiza Eosinophils/100 WBC (Bld) 0.0 % Critically low 0.9-7.0 [facility] Comment on above: Performed By: #### C BC #### [facility] [address] [place] [address] Dr. Neisha Araiza Erythrocyte distribution width (RBC) [Ratio] 12.9 % Normal 11.0-15.0 [facility] Comment on above: Performed By: #### C BC #### [facility] [address] [place] [address] Dr. Neisha Araiza Hematocrit (Bld) [Volume fraction] 43.8 % Normal 36.0-48.0 [facility] Comment on above: Performed By: #### C BC #### [facility] [address] [address] [address] Neisha Araiza Hemoglobin (Bld) [Mass/Vol] 14.7 g/dL Normal 12.0-16.0 [facility] Comment on above: Performed By: #### C BC #### [facility] [address] [place] [address] Dr. Neisha Araiza IG # 0.06 10e3/ul Critically high 0.00-0.03 [facility] Comment on above: Performed By: #### C BC #### [facility] [address] [place] [address] Dr. Neisha Araiza IG % 0.6 % Critically high 0.0-0.5 [facility] Comment on above: Performed By: #### C BC #### [facility] [address] [place] [address] Dr. Neisha Araiza LYMPH # 1.4 103/ul Normal 1.2-3.8 [facility] Comment on above: Performed By: #### C BC #### [facility] [address] [place] [address] Dr. Neisha Araiza Lymphocytes/100 WBC (Bld) 12.7 % Critically low 20.5-60.0 [facility] Comment on above: Performed By: #### C BC #### [facility] [address] [place] [address] Dr. Neisha Araiza MANUAL DIFF REQ NO Normal [facility] Comment on above: Performed By: #### C BC #### [facility] [address] [place] [address] Dr. Neisha Araiza MCH (RBC) [Entitic mass] 28.2 pg Normal 26.7-34.0 [facility] Comment on above: Performed By: #### C BC #### [facility] [address] [place] [address] Dr. Neisha Araiza MCHC (RBC) [Mass/Vol] 33.6 g/dL Normal 29.9-35.2 [facility] Comment on above: Performed By: #### C BC #### [facility] [address] [address] [address] Neisha Araiza MCV (RBC) [Entitic vol] 84.1 fL Normal 81.0-99.0 [facility] Comment on above: Performed By: #### C BC #### [facility] [address] [address] [address] Neisha Araiza MONO # 0.5 103/ul Normal 0.3-0.8 [facility] Comment on above: Performed By: #### C BC #### [facility] [address] [place] [address] Dr. Neisha Araiza Monocytes/100 WBC (Bld) 4.7 % Normal 1.7-12.0 [facility] Comment on above: Performed By: #### C BC #### [facility] [address] [place] [address] Dr. Neisha Araiza NEUT # 8.8 103/ul Critically high 1.4-6.5 [facility] Comment on above: Performed By: #### C BC #### [facility] [address] [place] [address] Dr. Neisha Araiza Neutrophils/100 WBC (Bld) 81.6 % Critically high 43.0-75.0 [facility] Comment on above: Performed By: #### C BC #### [facility] [address] [place] [address] Dr. Neisha Araiza Platelet mean volume (Bld) [Entitic vol] 10.0 fL Normal 9.5-13.5 [facility] Comment on above: Performed By: #### C BC #### [facility] [address] [place] [address] Dr. Neisha Araiza PLT 293 103/ul Normal 150-450 [facility] Comment on above: Performed By: #### C BC #### [facility] [address] [place] [address] Dr. Neisha Araiza RBC 5.21 106/ul Normal 4.20-5.40 [facility] Comment on above: Performed By: #### C BC #### [facility] [address] [place] [address] Dr. Neisha Araiza WBC 10.7 103/ul Normal 4.0-11.0 [facility] Comment on above: Performed By: #### C BC #### [facility] [address] [place] [address] Dr. Neisha Araiza [facility]on SARS-CoV-2 (COVID-19) RNA TIM+probe Ql (Unsp spec) Not detected Normal NOT DETECTED [facility] Comment on above: Result Comment: When [...] for this test is supported by the [place] of Health and Human Service's declaration that [...] used). Performed By: #### C BC #### [facility] [address] [place] [address] Dr. Neisha Araiza LACTATE/LACTIC ACIDon 2021 Lactate [Moles/Vol] 1.5 mmol/L Normal 0.4-1.9 [facility] Comment on above: Performed By: #### C BC #### [facility] [address] [place] [address] Dr. Neisha Araiza LIPASEon 12-08-2021 Lipase [Catalytic activity/Vol] 149.0 U/L Normal 73.0-393.0 [facility] Comment on above: Performed By: #### L IPA, BASIA, CMP #### [facility] [address] [place] [address] Dr. Neisha Araiza POINT OF CARE GLUCOSEon Glucose [Mass/Vol] 282 mg/dL Critically high 74-106 [facility] Comment on above: Performed By: #### A CETON #### [facility] [address] [address] [address] Neisha Araiza PROF 14(COMP METB)on 022 Albumin [Mass/Vol] 3.6 g/dL Normal 3.4-5.0 [facility] Comment on above: Performed By: #### L BASIA DRIVER, CMP #### [facility] [address] [address] [address] Neisha Araiza Albumin/Globulin [Mass ratio] 0.9 {ratio} Normal [facility] Comment on above: Performed By: #### L NEISHA BASIA, CMP #### [facility] [address] [place] [address] Dr. Neisha Araiza ALP [Catalytic activity/Vol] 105 U/L Normal 46-116 [facility] Comment on above: Performed By: #### L NEISHA BASIA, CMP #### [facility] [address] [address] [address] Neisha Araiza ALT [Catalytic activity/Vol] 32 U/L Normal 14-59 [facility] Comment on above: Performed By: #### L NEISHA BASIA, CMP #### [facility] [address] [address] [address] Neisha Araiza Anion gap [Moles/Vol] 23.2 mmol/L Normal [facility] Comment on above: Performed By: #### L NEISHA BASIA, CMP #### [facility] [address] [address] [address] Neisha Araiza AST [Catalytic activity/Vol] 15 U/L Normal 15-37 [facility] Comment on above: Performed By: #### L IPA BASIA, CMP #### [facility] [address] [address] [address] Neisha Araiza Bilirubin [Mass/Vol] 1.3 mg/dL Critically high 0.2-1.0 [facility] Comment on above: Performed By: #### L IPA BASIA, CMP #### [facility] [address] [address] [address] Neisha Araiza Calcium [Mass/Vol] 8.0 mg/dL Critically low 8.5-10.1 [facility] Comment on above: Performed By: #### L IPA BASIA, CMP #### [facility] [address] [address] [address] Neisha Araiza Chloride [Moles/Vol] 96 mmol/L Critically low 98-107 [facility] Comment on above: Performed By: #### L IPA BASIA, CMP #### [facility] [address] [address] [address] Neisha Araiza CO2 [Moles/Vol] 14.8 mmol/L Critically low 21.0-32.0 [facility] Comment on above: Performed By: #### L IPA BASIA, CMP #### [facility] [address] [place] [address] Dr. Neisha Araiza Creatinine [Mass/Vol] 0.62 mg/dL Normal 0.55-1.02 [facility] Comment on above: Performed By: #### L BASIA DRIVER, CMP #### [facility] [address] [place] [address] Dr. Neisha Araiza EGFR-AF CHILEAN >60 Normal >=60 [facility] Comment on above: Performed By: #### L NEISHA BASIA, CMP #### [facility] [address] [place] [address] Dr. Neisha Araiza EGFR-NON AF CHILEAN >60 Normal >=60 [facility] Comment on above: Performed By: #### L IPA BASIA, CMP #### [facility] [address] [place] [address] Dr. Neisha Araiza Globulin (S) [Mass/Vol] 4.2 g/dL Normal [facility] Comment on above: Performed By: #### L IPA BASIA, CMP #### [facility] [address] [place] [address] Dr. Neisha Araiza Glucose [Mass/Vol] 285 mg/dL Critically high 74-106 [facility] Comment on above: Performed By: #### L BASIA DRIVER, CMP #### [facility] [address] [address] [address] Neisha Araiza Potassium [Moles/Vol] 4.0 mmol/L Normal 3.5-5.1 [facility] Comment on above: Performed By: #### L BASIA DRIVER, CMP #### [facility] [address] [place] [address] Dr. Neisha Araiza Protein [Mass/Vol] 7.8 g/dL Normal 6.4-8.2 [facility] Comment on above: Performed By: #### L BASIA DRIVER, CMP #### [facility] [address] [place] [address] Dr. Neisha Araiza Sodium [Moles/Vol] 130 mmol/L Critically low 136-145 [facility] Comment on above: Performed By: #### L BASIA DRIVER, CMP #### [facility] [address] [place] [address] Dr. Neisha Araiza Urea nitrogen [Mass/Vol] 12.0 mg/dL Normal 7.0-18.0 [facility] Comment on above: Performed By: #### L BASIA DRIVER, CMP #### [facility] [address] [place] [address] Dr. Neisha Araiza Urea nitrogen/Creatinine [Mass ratio] 19.4 mg/mg Normal [facility] Comment on above: Performed By: #### L BASIA DRIVER, CMP #### [facility] [address] [place] [address] Dr. Neisha Araiza AMYLASEon 12-07-2021 Amylase [Catalytic activity/Vol] 20 U/L Critically low 25-115 [facility] Comment on above: Performed By: #### A CETON #### [facility] [address] [place] [address] Dr. Neisha Araiza BILIRUBIN CONJUGATED (DIRECT )on 12-07-2021 BILI, CONJUGATED 0.2 mg/dL Normal 0.0-0.2 [facility] Comment on above: Performed By: #### C BC #### [facility] [address] [place] [address] Dr. Neisha Araiza CBC AUTO DIFFon 12-07-2021 BASO # 0.0 103/ul Normal 0.0-0.1 [facility] Comment on above: Performed By: #### L IPABASIA, CMP #### [facility] [address] [place] [address] Dr. Neisha Araiza Basophils/100 WBC (Bld) 0.3 % Normal 0.2-2.0 [facility] Comment on above: Performed By: #### L IPA BASIA, CMP #### [facility] [address] [place] [address] Dr. Neisha Araiza EO # 0.0 103/ul Normal 0.0-0.7 [facility] Comment on above: Performed By: #### L NEISHA BASIA, CMP #### [facility] [address] [place] [address] Dr. Neisha Araiza Eosinophils/100 WBC (Bld) 0.0 % Critically low 0.9-7.0 [facility] Comment on above: Performed By: #### L BASIA DRIVER, CMP #### [facility] [address] [place] [address] Dr. Neisha Araiza Erythrocyte distribution width (RBC) [Ratio] 12.7 % Normal 11.0-15.0 [facility] Comment on above: Performed By: #### L BASIA DRIVER, CMP #### [facility] [address] [place] [address] Dr. Neisha Araiza Hematocrit (Bld) [Volume fraction] 44.9 % Normal 36.0-48.0 [facility] Comment on above: Performed By: #### L BASIA DRIVER, CMP #### [facility] [address] [place] [address] Dr. Neisha Araiza Hemoglobin (Bld) [Mass/Vol] 15.4 g/dL Normal 12.0-16.0 [facility] Comment on above: Performed By: #### L IPA BASIA, CMP #### [facility] [address] [place] [address] Dr. Neisha Araiza IG # 0.03 10e3/ul Normal 0.00-0.03 [facility] Comment on above: Performed By: #### L BASIA DRIVER, CMP #### [facility] [address] [place] [address] Dr. Neisha Araiza IG % 0.3 % Normal 0.0-0.5 [facility] Comment on above: Performed By: #### L BAISA DRIVER, CMP #### [facility] [address] [place] [address] Dr. Neisha Araiza LYMPH # 1.2 103/ul Normal 1.2-3.8 [facility] Comment on above: Performed By: #### L BASIA DRIVER, CMP #### [facility] [address] [place] [address] Dr. Neisha Araiza Lymphocytes/100 WBC (Bld) 12.2 % Critically low 20.5-60.0 [facility] Comment on above: Performed By: #### L BASIA DRIVER, CMP #### [facility] [address] [place] [address] Dr. Neisha Araiza MANUAL DIFF REQ NO Normal [facility] Comment on above: Performed By: #### L BASIA DRIVER, CMP #### [facility] [address] [place] [address] Dr. Neisha Araiza MCH (RBC) [Entitic mass] 28.3 pg Normal 26.7-34.0 [facility] Comment on above: Performed By: #### L BASIA DRIVER, CMP #### [facility] [address] [place] [address] Dr. Neisha Araiaz MCHC (RBC) [Mass/Vol] 34.3 g/dL Normal 29.9-35.2 [facility] Comment on above: Performed By: #### L BASIA DRIVER, CMP #### [facility] [address] [place] [address] Dr. Neisha Araiza MCV (RBC) [Entitic vol] 82.5 fL Normal 81.0-99.0 [facility] Comment on above: Performed By: #### L BASIA DRIVER, CMP #### [facility] [address] [place] [address] Dr. Neisha Araiza MONO # 0.3 103/ul Normal 0.3-0.8 [facility] Comment on above: Performed By: #### L BASIA DRIVER, CMP #### [facility] [address] [address] [address] Neisha Araiza Monocytes/100 WBC (Bld) 3.1 % Normal 1.7-12.0 [facility] Comment on above: Performed By: #### L BASIA DRIVER, CMP #### [facility] [address] [address] [address] Neisha Araiza NEUT # 8.1 103/ul Critically high 1.4-6.5 [facility] Comment on above: Performed By: #### L BASIA DRIVER, CMP #### [facility] [address] [place] [address] Dr. Neisha Araiza Neutrophils/100 WBC (Bld) 84.1 % Critically high 43.0-75.0 [facility] Comment on above: Performed By: #### L BASIA DRIVER, CMP #### [facility] [address] [address] [address] Neisha Araiza Platelet mean volume (Bld) [Entitic vol] 9.8 fL Normal 9.5-13.5 [facility] Comment on above: Performed By: #### L BASIA DRIVER, CMP #### [facility] [address] [place] [address] Dr. Neisha Araiza PLT 263 103/ul Normal 150-450 [facility] Comment on above: Performed By: #### L BASIA DRIVER, CMP #### [facility] [address] [address] [address] Neisha Araiza RBC 5.44 106/ul Critically high 4.20-5.40 [facility] Comment on above: Performed By: #### L BASIA DRIVER, CMP #### [facility] [address] [address] [address] Neisha Araiza WBC 9.6 103/ul Normal 4.0-11.0 [facility] Comment on above: Performed By: #### L IPA, BASIA, CMP #### [facility] [address] [place] [address] Dr. Neisha Araiza LIPASEon 12-07-2021 Lipase [Catalytic activity/Vol] 73.0 U/L Normal 73.0-393.0 [facility] Comment on above: Performed By: #### A CETON #### [facility] [address] [place] [address] Dr. Neisha Araiza PROF 14(COMP METB)on 022 Albumin [Mass/Vol] 3.8 g/dL Normal 3.4-5.0 [facility] Comment on above: Performed By: #### A CETON #### [facility] [address] [place] [address] Dr. Neisha Araiza Albumin/Globulin [Mass ratio] 0.9 {ratio} Normal [facility] Comment on above: Performed By: #### A CETON #### [facility] [address] [place] [address] Dr. Neisha Araiza ALP [Catalytic activity/Vol] 120 U/L Critically high 46-116 [facility] Comment on above: Performed By: #### A CETON #### [facility] [address] [place] [address] Dr. Neisha Araiza ALT [Catalytic activity/Vol] 34 U/L Normal 14-59 [facility] Comment on above: Performed By: #### A CETON #### [facility] [address] [place] [address] Dr. Neisha Araiza Anion gap [Moles/Vol] 20.0 mmol/L Normal [facility] Comment on above: Performed By: #### A CETON #### [facility] [address] [place] [address] Dr. Neisha Araiza AST [Catalytic activity/Vol] 18 U/L Normal 15-37 [facility] Comment on above: Performed By: #### A CETON #### [facility] [address] [place] [address] Dr. Neisha Araiza Bilirubin [Mass/Vol] 1.1 mg/dL Critically high 0.2-1.0 [facility] Comment on above: Performed By: #### A CETON #### [facility] [address] [address] [address] Neisha Araiza Calcium [Mass/Vol] 8.5 mg/dL Normal 8.5-10.1 [facility] Comment on above: Performed By: #### A CETON #### [facility] [address] [address] [address] Neisha Araiza Chloride [Moles/Vol] 94 mmol/L Critically low 98-107 [facility] Comment on above: Performed By: #### A CETON #### [facility] [address] [address] [address] Neisha Araiza CO2 [Moles/Vol] 18.9 mmol/L Critically low 21.0-32.0 [facility] Comment on above: Performed By: #### A CETON #### [facility] [address] [address] [address] Neisha Araiza Creatinine [Mass/Vol] 0.59 mg/dL Normal 0.55-1.02 [facility] Comment on above: Performed By: #### A CETON #### [facility] [address] [address] [address] Neisha Araiza EGFR-AF CHILEAN >60 Normal >=60 [facility] Comment on above: Performed By: #### A CETON #### [facility] [address] [address] [address] Neisha Araiza EGFR-NON AF CHILEAN >60 Normal >=60 [facility] Comment on above: Performed By: #### A CETON #### [facility] [address] [address] [address] Neisha Araiza Globulin (S) [Mass/Vol] 4.1 g/dL Normal [facility] Comment on above: Performed By: #### A CETON #### [facility] [address] [address] [address] Neisha Araiza Glucose [Mass/Vol] 322 mg/dL Critically high 74-106 [facility] Comment on above: Performed By: #### A CETON #### [facility] [address] [address] [address] Neisha Araiza Potassium [Moles/Vol] 3.9 mmol/L Normal 3.5-5.1 [facility] Comment on above: Performed By: #### A CETON #### [facility] [address] [address] [address] Neisha Araiza Protein [Mass/Vol] 7.9 g/dL Normal 6.4-8.2 [facility] Comment on above: Performed By: #### A CETON #### [facility] [address] [address] [address] Neisha Araiza Sodium [Moles/Vol] 129 mmol/L Critically low 136-145 Th [facility] Comment on above: Performed By: #### A CETON #### [facility] [address] [address] [address] Neisha Araiza Urea nitrogen [Mass/Vol] 12.0 mg/dL Normal 7.0-18.0 [facility] Comment on above: Performed By: #### A CETON #### [facility] [address] [address] [address] Neisha Araiza Urea nitrogen/Creatinine [Mass ratio] 20.3 mg/mg Normal [facility] Comment on above: Performed By: #### A CETON #### [facility] [address] [address] [address] Neisha Araiza Vital Signs Date Time Vital Sign Value Performing Clinician Facility 04-24-2025 [id number] Body temperature 98.2 [degF] Priscilla Kashmir [email or web address] [facility] 04-24-2025 10:12-0400 Diastolic blood pressure 78 mm[Hg] Priscilla Marlow DDS Work Phone: [facility] 04-24-2025 10:12-0400 Heart rate 88 /min Priscilla Marlow DDS Work Phone: [facility] 04-24-2025 10:12-0400 Systolic blood pressure 130 mm[Hg] Priscilla Marlow [email or web address] Work Phone: [facility] 03-20-2025 10:25-0400 Body temperature 97.81 [degF] Yixue Marlow DDS Work Phone: [facility] 03-20-2025 10:25-0400 Diastolic blood pressure 94 mm[Hg] Yixue Marlow DDS Work Phone: [facility] 03-20-2025 10:25-0400 Heart rate 82 /min Yixue Marlow DDS Work Phone: [facility] 03-20-2025 10:25-0400 Systolic blood pressure 146 mm[Hg] Yixue Marlow DDS Work Phone: [facility] 03-05-2025 15:08-0400 Body temperature 98.91 [degF] Yixue Marlow DDS Work Phone: [facility] 03-05-2025 15:08-0400 Diastolic blood pressure 98 mm[Hg] Yixue Marlow DDS Work Phone: [facility] 03-05-2025 15:08-0400 Heart rate 86 /min Yixue Marlow DDS Work Phone: [facility] 03-05-2025 15:08-0400 Systolic blood pressure 146 mm[Hg] Yixue Marlow DDS Work Phone: [facility] 02-19-2025 14:10-0400 Body height 165.1 cm Yixue Marlow DDS Work Phone: [facility] 02-19-2025 14:10-0400 Body temperature 98.6 [degF] Yixue Marlow DDS Work Phone: [facility] 02-19-2025 14:10-0400 Diastolic blood pressure 76 mm[Hg] Yixue Marlow DDS Work Phone: [facility] 02-19-2025 14:10-0400 Heart rate 101 /min Priscilla Marlow DDS Work Phone: [facility] 02-19-2025 14:10-0400 Systolic blood pressure 126 mm[Hg] Priscilla Marlow DDS Work Phone: [facility] 01-08-2025 15:08-0400 Body mass index (BMI) [Ratio] 31.42 kg/m2 Basia Brandt PA Work Phone: [facility] 01-08-2025 15:08-0400 Body weight 80.47 kg Basia Karly PA Work Phone: [facility] 01-08-2025 15:08-0400 Diastolic blood pressure 76 mm[Hg] Basia Brandt PA Work Phone: [facility] 01-08-2025 15:08-0400 Systolic blood pressure 120 mm[Hg] Basia Brandt PA Work Phone: [facility] 10-04-2024 07:29-0500 Body height 165.1 cm Amy Love MD Work Phone: [facility] 10-04-2024 07:29-0500 Body mass index (BMI) [Ratio] 28.62 kg/m2 Amy Love MD Work Phone: [facility] 10-04-2024 07:29-0500 Body temperature 98.2 [degF] Amy Love MD Work Phone: [facility] 10-04-2024 07:29-0500 Body weight 78.02 kg Amy Love MD Work Phone: [facility] 10-04-2024 07:29-0500 Diastolic blood pressure 92 mm[Hg] Amy Love MD Work Phone: [facility] 10-04-2024 07:29-0500 Heart rate 116 /min Amy Love MD Work Phone: [employer] 10-04-2024 07:29-0500 Respiratory rate 20 /min Amy Love MD Work Phone: [employer] 10-04-2024 07:29-0500 SaO2% (BldA) [Mass fraction] 96 % Amy Love MD Work Phone: [employer] 10-04-2024 07:29-0500 Systolic blood pressure 160 mm[Hg] Amy Love MD Work Phone: [employer] 08-28-2024 15:14-0500 Diastolic blood pressure 92 mm[Hg] Sanchez Mancilla MD Work Phone: [employer] 08-28-2024 15:14-0500 Systolic blood pressure 150 mm[Hg] Sanchez Mancilla MD Work Phone: [employer] 08-28-2024 14:05-0500 Body height 165.1 cm Sanchez Mancilla MD Work Phone: [employer] 08-28-2024 14:05-0500 Body mass index (BMI) [Ratio] 29.29 kg/m2 Sanchez Mancilla MD Work Phone: [employer] 08-28-2024 14:05-0500 Body temperature 97.9 [degF] Sanchez Mancilla MD Work Phone: [employer] 08-28-2024 14:05-0500 Body weight 79.83 kg Sanchez Mancilla MD Work Phone: [employer] 08-28-2024 14:05-0500 Heart rate 116 /min Sanchez Mancilla MD Work Phone: [employer] 08-28-2024 14:05-0500 Respiratory rate 20 /min Sanchez Mancilla MD Work Phone: [employer] 08-28-2024 14:05-0500 SaO2% (BldA) [Mass fraction] 99 % Sanchez Mancilla MD Work Phone: [employer] 07-09-2024 08:36-0500 Body height 165.1 cm Amisha Nguyen MD Work Phone: [employer] 07-09-2024 08:36-0500 Body mass index (BMI) [Ratio] 3 kg/m2 Amisha Nguyen MD Work Phone: [employer] 07-09-2024 08:36-0500 Body temperature 98.6 [degF] Amisha Nguyen MD Work Phone: [employer] 07-09-2024 08:36-0500 Body weight 8.16 kg Amisha Nguyen MD Work Phone: [employer] 07-09-2024 08:36-0500 Diastolic blood pressure 99 mm[Hg] Amisha Nguyen MD Work Phone: [employer] 07-09-2024 08:36-0500 Heart rate 106 /min Amisha Nguyen MD Work Phone: [employer] 07-09-2024 08:36-0500 Respiratory rate 16 /min Amisha Nguyen MD Work Phone: [employer] 07-09-2024 08:36-0500 SaO2% (BldA) [Mass fraction] 98 % Amisha Nguyen MD Work Phone: [employer] 07-09-2024 08:36-0500 Systolic blood pressure 146 mm[Hg] Amisha Nguyen MD Work Phone: [employer] 01-23-2023 18:06-0400 Hourly Rounding Ellie BAJWAU [facility] 01-23-2023 18:06-0400 Promise to Return Ellie OEDU [facility] 01-23-2023 17:21-0400 Hourly Rounding Ellie OEDU [facility] 01-23-2023 17:21-0400 Promise to Return Mbanefo OJUKWU [facility] 01-23-2023 16:21-0400 Hourly Rounding Mbanefo OJUKWU [facility] 01-23-2023 16:21-0400 Promise to Return Mbanefo OJUKWU [facility] 01-23-2023 14:00-0400 Blood Pressure Location Mbanefo OJUKWU [facility] 01-23-2023 11:45-0400 Heart rate 74 /min Mbanefo OJUKWU [facility] 01-23-2023 11:45-0400 SaO2% (BldA) [Mass fraction] 98 % Mbanefo OJUKWU [facility] 01-23-2023 11:45-0400 Diastolic blood pressure 87 mm[Hg] Mbanefo OJUKWU [facility] 01-23-2023 11:45-0400 Mean blood pressure 107 mm[Hg] Mbanefo OJUKWU [facility] 01-23-2023 11:45-0400 Systolic blood pressure 146 mm[Hg] Mbanefo OJUKWU [facility] 01-23-2023 11:45-0400 Body temperature 98.06 [degF] Mbanefo OJUKWU [facility] 01-23-2023 08:47-0400 gluc 192 mg/dL Mbanefo OJUKWU [facility] 01-23-2023 08:46-0400 Diastolic blood pressure 95 mm[Hg] Mbanefo OJUKWU [facility] 01-23-2023 08:46-0400 Heart rate 88 /min Mbanefo OJUKWU [facility] 01-23-2023 08:46-0400 Systolic blood pressure 155 mm[Hg] Mbanefo OJUKWU [facility] 01-23-2023 08:03-0400 Heart rate 83 /min Mbanefo OJUKWU [facility] 01-23-2023 08:03-0400 SaO2% (BldA) [Mass fraction] 98 % Mbanefo OJUKWU [facility] 01-23-2023 08:03-0400 Mean blood pressure 115 mm[Hg] Mbanefo OJUKWU [facility] 01-23-2023 08:02-0400 Body temperature 98.24 [degF] Mbanefo OJUKWU [facility] 01-23-2023 01:40-0400 Blood Pressure Location Mbanefo OJUKWU [facility] 01-23-2023 01:40-0400 Body temperature 98.06 [degF] Mbanefo OJUKWU [facility] 01-23-2023 01:40-0400 Heart rate 91 /min Mbanefo OJUKWU [facility] 01-23-2023 01:40-0400 Mean blood pressure 119 mm[Hg] Mbanefo OJUKWU [facility] 01-23-2023 01:40-0400 Respiratory rate 18 /min Mbanefo OJUKWU [facility] 01-23-2023 01:40-0400 SaO2% (BldA) [Mass fraction] 98 % Mbanefo OJUKWU [facility] 01-22-2023 20:59-0400 Heart rate 94 /min Mbanefo OJUKWU [facility] 01-22-2023 19:00-0400 Mean blood pressure 108 mm[Hg] Mbanefo OJUKWU [facility] 01-22-2023 15:33-0400 Respiratory rate 18 /min Mbanefo OJUKWU [facility] 01-22-2023 15:32-0400 Mean blood pressure 101 mm[Hg] Mbanefo OJUKWU [facility] 01-22-2023 11:35-0400 Heart rate 67 /min Mbanefo OJUKWU [facility] 01-22-2023 08:40-0400 gluc 215 mg/dL Mbanefo OJUKWU [facility] 01-22-2023 04:53-0400 Mean blood pressure 97 mm[Hg] Mbanefo OJUKWU [facility] 01-21-2023 18:42-0400 Respiratory rate 15 /min Mbanefo OJUKWU [facility] 01-21-2023 17:54-0400 Respiratory rate 21 /min Mbanefo OJUKWU [facility] 01-21-2023 17:45-0400 Respiratory rate 16 /min Mbanefo OJUKWU [facility] 01-21-2023 16:20-0400 Heart rate 87 /min Mbanefo OJUKWU [facility] Encounters Encounter Date Encounter Type Care Provider Facility Start: 04-24-2025 End: 04-24-2025 Encounter identifier Priscilla Marlow DDS Work Phone: [facility] Start: 04-24-2025 ambulatory Priscilla Marlow DDS [facility] Start: 03-20-2025 End: 03-20-2025 Encounter identifier Priscilla Marlow DDS Work Phone: [facility] Start: 03-05-2025 End: 03-05-2025 Encounter identifier Priscilla Marlow DDS Work Phone: [facility] Start: 02-19-2025 End: 02-19-2025 Encounter identifier Priscilla Marlow DDS Work Phone: [facility] Start: 01-08-2025 End: 01-08-2025 Patient encounter procedure Basia BLOOM Work Phone: [facility] Work Phone: Start: 01-08-2025 End: [...] patient visit Amy Love MD Work Phone: [facility] Comment on above: Viral illness (Prima ry Dx) Start: 08-28-2024 End: 08-28-2024 Emergency department patient visit Sanchez Mancilla MD Work Phone: [facility] Comment on above: Blood glucose elevat ed (Primary Dx); Hyperglycemia due to diabetes mellitus (HCC); Dehydration Start: 07-09-2024 End: 07-09-2024 Emergency department patient visit Amisha Nguyen MD Work Phone: [facility] Comment on above: Infective otitis ext [place] of left ear (Primary Dx); Herpes zoster without complication Start: 02-05-2023 End: 02-05-2023 ambulatory [facility] Start: 01-23-2023 ambulatory Facility:1 [id number] Start: 01-22-2023 ambulatory Facility:1 [id number] Start: 01-21-2023 End: 01-23-2023 ambulatory Abhishek Monterroso Facility:[facility] Start: 01-21-2023 End: 01-23-2023 Observation Ellie LeloJUKWU [facility] Start: 12-12-2022 End: 12-12-2022 Emergency department patient visit Pako Metzger Facility:[facility] Start: 06-15-2022 End: 06-15-[address] LELAND [...] 02-19-2025 Documentation of current medications Yixue Marlow [email or web address] Work Phone: Start: 02-19-2025 End: 02-19-2025 extraction, erupted tooth or exposed root (elevation and/or forceps removal) Priscilla Marlow [email or web address] Work Phone: Start: 02-19-2025 End: 02-19-2025 extraction, erupted tooth requiring removal of bone and/or sectioning of tooth, and including elevation of mucoperiosteal flap if indicated Priscilla Marlow [email or web address] Work Phone: Start: 02-19-2025 End: 02-19-2025 oral hygiene instructions Priscilla Marlow [email or web address] Work Phone: Start: 01-08-2025 RECURRENT VAGINITIS (HTRX) [...] EDT Office Visit [facility] [address] [place] [id number] Leland Claros DO [address] [place] [address] [facility] Start: 04-24-2025 End: 04-24-2025 [facility] Work Phone: Start: 03-20-2025 End: 03-20-2025 [facility] Work Phone: Start: 03-05-2025 End: 03-05-2025 [facility] Work Phone: Start: 02-19-2025 [facility] Work Phone: Start: 01-08-2025 End: 01-08-2025 Patient encounter procedure 01/08/2025 3:00 PM EDT Office Visit [facility] [address] [place] [id number] Basia Brandt PA [address] [place] [address] Arrived [facility] Comment on above: Arrived Start: 04-02-2024 COVID-19 Vaccine ( season) COVID-19 Vaccine ( season) [facility] Start: 04-02-2024 COVID-19 Vaccine ( season) COVID-19 Vaccine ( season) [facility] Start: 03-02-2024 Influenza vaccination Flu vaccine (# 1) [facility] Start: 1997 DTaP/Tdap/Td vaccine (1 - Tdap) DTaP/Tdap/Td vaccine (1 - Tdap) [facility] End: 08-28-2024 Blood gas, venous Blood gas, venous Lab Routine One Time for 1 Occurrences starting 08/28/2024 until 08/28/2024 [employer] Comment on above: One Time for 1 Occur rences starting 08/28/2024 until 08/28/2024 EKG 12 Lead EKG 12 Lead ECG STAT 08/28/2024 4:47 PM EST [employer] Payers Date Payer Category Payer Private Health Insurance [employer] [id number] 2022 Medicaid [id number] 1978 Unknown [id number] [id number]. 593 1978 Unknown [id number] 2.16840.1.323001.3.579.2. 59 1978 Unknown [id number] 2.16840.1.048440.3.579.2. 593 1978 Unknown [id number] 2.16840.1.600808.3.579.2. 593 1978 Unknown [id number] 2.16.840.1.363362.3.579.2. 593 1978 Unknown [id number] 2.16.840.1.199901.3.579.2. 593 1978 Unknown [id number] 2.16.840.1.423494.3.579.2. 593 1978 Unknown [id number] 2.16.840.1.915617.3.579.2. 593 1978 Unknown [id number] 2.16.840.1.339548.3.579.2. 593 1978 Unknown [id number] 2.16.840.1.314014.3.579.2. 727 1978 Unknown [id number] 2.16.840.1.362007.3.579.2. 727 1978 Unknown [id number] 2.16.840.1.209673.3.579.2. 356 1978 Unknown [id number] 2.16.840.1.159983.3.579.2. 356 1978 Unknown [id number] 2.16.840.1.457744.3.579.2. 174 1978 Unknown [id number] 2.16.840.1.785461.3.579.2. 174 1978 Unknown [id number] 2.16.840.1.054065.3.579.2. 174 1978 Unknown [id number] 2.16.840.1.683524.3.579.2. 1259 1978 Unknown [id number] 2.16.840.1.913620.3.579.2. 716 1959 Unknown [id number] Social History Date Type Detail Facility Start: 02-19-2025 Tobacco Never smoker [facility] Comment on above: denies Tobacco smoking status No Smoking Status Entered [facility] Start: 07-09-2024 End: 01-08-2025 Sex Assigned At Female [facility] Start: 06-03-2023 End: 07-09-2024 Tobacco smoking status NHIS Never smoked tobacco [facility] [employer] Start: 06-03-2023 End: 07-09-2024 Tobacco use and exposure Smokeless tobacco non-user [facility] [employer] Start: 07-09-2024 End: 10-04-2024 Alcoholic beverage intake Lifetime non-drinker (finding) [facility] [employer] Start: 1980 Sex assigned at Female [facility] [employer] Start: 07-21-2021 Gender identity Identifies as female gender (finding) [facility] Start: 07-09-2024 End: 01-08-2025 History of Social function [facility] How often to you hav e a drink containing alcohol? Never [facility] How many standard drinks containing alcohol do you have on a typical day? Patient does not drink [facility] Start: 06-03-2023 End: 01-08-2025 Alcoholic beverage intake [...] [facility] Sexual Orientation Straight or heterosexual [facility] Work Phone: NEGATED: Highlighted rowStart: KELVIN History of tobacco use Passive smoker [facility] NEGATED: Highlighted rowStart: 02-19-2025 End: 04-24-2025 Tobacco smoking status NHIS Unknown if ever smoked [facility] NEGATED: Highlighted rowStart: 02-19-2025 History of tobacco use Current non-smoker [facility] Medical Equipment Procedure Code Equipment Code Equipment Origin al Text Equipment Identifier Dates PCI Unknown 01/22/23 Non Biological Left Circumflex Coronary Artery FDA Start: 01-22-2023 Comment on above: 2.75 mm x 28 mm Xien ce Coronary stent to LAD Functional Status Date Assessment Result Facility 01-21-2023 Functional Status No [facility] 01-21-2023 Functional Status [facility] Clinical Notes 01-05-2022 to 04-24-2025 Note Date & Type Note Facility 04-24-2025 History of Presen t illness Narrative Encounter Date POV [facility] Work Phone: 1(334) 428-570108-19-2025 History of Present illness Narrative* Encounter Date Complaint History Of Prese nt Illness ext [facility] Work Phone: 1(543) 469-478408-04-2025 History of Present illness Narrative* Encounter Date Complaint History Of Prese nt Illness ext [facility] Work Phone: 1(688) 303-754307-21-2025 History of Present illness Narrative* Encounter Date Complaint History Of Prese nt Illness extraction extraction [facility] Work Phone: 1(741) 118-821406-09-2025 History of Present illness Narrative* Celeste Kaye, [employer] - 01/08/2025 3:00 PM EDT Reason for [...] Diagnosis Date Diabetes mellitus (CMS/HCC) HTN (hypertension) ([facility]) HISTORY PAST MEDICAL HISTORY SOCIAL HISTORY Past Medical History: Diagnosis Date Diabetes mellitus (CMS/HCC) HTN (hypertension) ([facility]) Social History Tobacco Use Smoking status: Never [...] nursing note reviewed. Exam conducted with a contact representative present. Vitals: Estimated body mass index is [...] behalf of: MERLE Mendoza documented in [facility] [id number] Hospital Discharge instructions* Discharge Instructions* Sanchez Mancilla [...] through Care Everywhere. * Hyperglycemia: General Info ([place]) [facility] Note Chief Complaint: establish [...] history of Coronary artery disease, Diabetes mellitus ([facility]), Hyperlipidemia, Hypertension, and Myocardial infarction ([facility]). Surgical History She has a past surgical [...] Aspirin indefinitely -High intensi (more content not included)...[facility] 02-05-2023 NoteNew patient here to establish care. Ref from Dr. Carrillo for recent NSTEMI w/ PCI at [facility]. She wanted to see cardiology closer to home. She was started on Brilinta s/p PCI and is tolerating it well.[facility] 01-24-2023 NoteAdmission and Discharge Information Admitting [...] shoulder pain. She was subsequently admitted to [facility] with acute NSTEMI, elevated troponin, hypertensive urgency, right shoulder pain. She was treated with aspirin, Brilinta, Lipitor, nitroglycerin, Lovenox. She was also treated with lisinopril and Lopressor. She was seen in consultation by the rn family practice and underwent echocardiogram that was essentially normal. [...] primary care physician as well as the rn family practice accordingly. Physical Exam General: alert, no acute [...] 69.9 % Lymph Auto - 24.9 % [place] Auto - 4.6 % Eos Auto - 0.2 % Basophil Auto - 0.4 % Neutro Absolute - 7.4 E9/L Lymph Absolute - 2.6 E9/L [place] Absolute - 0.5 E9/L Eos Absolute - [...] - 255 mg/dL POC Device SN - [id number] POC User ID - [id number] POC Username - LESLY PARR CBC w/ [...] Protein - NEGATIVE1 UA (more content not included)...[facility] Comment: Electronically Signed By: Ellie OBANDO MD\.br\Date and Time Signed: 01/24/23 19:32 [id number] Evaluation + Plan noteExtracted from: Title:APSO Note [...] Lipitor, lisinopril, Lopressor. Treated with Lovenox. Ordered: [facility] Hospital Care/Day Moderate 35 Minutes [id number] 2. Coronary artery disease (I25.10: Atherosclerotic heart disease of [place] coronary artery without angina pectoris) As seen on cardiac catheterization. Patient has coronary artery disease with mid left circumflex artery occlusion requiring 1 drug-eluting stent placement on 01/22/2023. Continue on aspirin, Brilinta, Lipitor, lisinopril and Lopressor. Ordered: [facility] Hospital Care/Day Moderate 35 Minutes 67748 3. Chest pain (R07.9: Chest pain, unspecified) Secondary to above. Resolved. Ordered: [facility] Hospital Care/Day Moderate 35 Minutes 69527 4. Elevated troponin (R77.8: Other specified abnormalities of plasma proteins) Secondary to above. Resolved. Ordered: [facility] Hospital Care/Day Moderate 35 Minutes 79745 5. Hypertensive urgency (I16.0: Hypertensive urgency) Resolved. Continue on lisinopril and metoprolol. Ordered: [facility] Hospital Care/Day Moderate 35 Minutes [id number] 6. Right shoulder pain (M25.511: Pain in right shoulder) Secondary to above #1. With atypical presentation. Ordered: [facility] Hospital Care/Day Moderate 35 Minutes 32884 7. Leukocytosis (D72.829: Elevated white blood cell [...] deep vein thrombosis (DVT) prophylaxis (Z79.899: Other terminal operations supervisor (current) drug therapy) SCDs. Disposition: Home either today or in a.m. pending cardiology final recommendations. I discussed the diagnosis and plan of care with the patient at the bedside. Moderate level of MDM based on addressing above issues. This documentation was transcribed using voice recognition software. Several attempts were made to ensure accuracy. However inadvertent computerized filler shaker errors may be present. Ellie Obando. Hospitalist. [...] deep vein thrombosis (DVT) prophylaxis (Z79.899: Other terminal operations supervisor (current) drug therapy) Orders: ticagrelor, 180 mg [...] deep vein thrombosis (DVT) prophylaxis (Z79.899: Other fci (current) drug therapy) Orders: ticagrelor, 180 mg [...] morphine and oxygen. Cardiology consult pending. Ordered: [facility] Hospital Care/Day Moderate 35 Minutes 77534 2. Elevated troponin (R77.8: Other specified abnormalities of plasma proteins) Elevated troponin secondary to NSTEMI. Cardiology consult pending. Continue on aspirin, Lipitor, Lovenox. Echocardiogram pending. Ordered: [facility] Hospital Care/Day Moderate 35 Minutes 95054 3. NSTEMI (non-ST elevation myocardial infarction) (I21.4: Non-ST elevation (NSTEMI) myocardial infarction) Acute NSTEMI present on admission. Cardiology consult pending. Echocardiogram pending. Continue on aspirin, Lipitor, lisinopril, Lovenox. Ordered: [facility] Hospital Care/Day Moderate 35 Minutes [id number] 4. Hypertensive urgency (I16.0: Hypertensive urgency) Resolved. Continue lisinopril. Ordered: [facility] Hospital Care/Day Moderate 35 Minutes [id number] 5. Right shoulder pain (M25.511: Pain in right shoulder) Resolved. Ordered: [facility] Hospital Care/Day Moderate 35 Minutes [id number] 6. Leukocytosis (D72.829: Elevated white blood cell [...] deep vein thrombosis (DVT) prophylaxis (Z79.899: Other fci (current) drug therapy) Lovenox. Disposition: Pending echocardiogram and cardiology consult. I discussed the diagnosis and plan of care with the patient at the bedside. Moderate level of MDM based on addressing above issues. This documentation was transcribed using voice recognition software. Several attempts were made to ensure accuracy. However inadvertent computerized filler shaker errors may be present. Ellie Obando. Hospitalist. [...] Ordered: Initial Hospital Care/Day High 75 Minutes [id number] 2. Elevated troponin (R77.8: Other specified abnormalities of plasma proteins) Elevated troponin mild. We will complete serial cardiac enzymes. Started patient on aspirin. If troponin trends up we will start patient on Lovenox or IV heparin. Check fasting lipid profile. Echocardiogram. Ordered: Initial Hospital Care/Day High 75 Minutes 89922 3. Hypertensive urgency (I16.0: Hypertensive urgency) Continue lisinopril. IV hydralazine as needed. Ordered: Initial Hospital Care/Day High 75 Minutes [id number] 4. Right shoulder pain (M25.511: Pain in right shoulder) Musculoskeletal in origin. Started patient on as needed pain medications. Ordered: Initial Hospital Care/Day High 75 Minutes 71213 5. Leukocytosis (D72.829: Elevated white blood cell count, unspecified) Secondary to steroid effect. Ordered: Initial Hospital Care/Day High 75 Minutes [id number] 6. Hyperglycemia (R73.9: Hyperglycemia, unspecified) Secondary to [...] deep vein thrombosis (DVT) prophylaxis (Z79.899: Other terminal operations supervisor (current) drug therapy) Lovenox. Disposition: The patient [...] made to ensure accuracy. However inadvertent computerized filler shaker errors may be present. Ellie Obando. Hospitalist. [...] deep vein thrombosis (DVT) prophylaxis (Z79.899: Other fci (current) drug therapy) Orders: nitroglycerin, 0.4 mg [...] ED Physician consult Hospitalist for continued care [facility]06-24-2023 Hospital Discharge instructions Patient Education 01/23/2023 09:22:37 CV - Cardiovascular PCI Discharge Instructions (CUSTOM) [place], [place] Cardiovascular PCI DISCHARGE INSTRUCTIONS Diet: Resume [...] hours post procedure: Actoplus MetGlucophageGlucophage XR GlucovanceAvandametFortamet Bgn-uawlzjzyeVbuufdKgtc-zsgiqgjmk GlumetzaJanumetMetaglip RiometGlycomet Minimal pain, soreness and/or discomfort is expected. If you are prescribed an aspirin and/or antiplatelet (such as Plavix, Brilinta or Effient) do NOT stop taking these medications for any reason without talking to your rn family practice Site Care: Do not remove dressing for [...] you are interested in smoking cessation, contact [facility] at [phone], ext. [phone]. In the event you are unable to reach your physician, please call [facility] at [phone] and the corking machine operator will assist you. Seek Medicare [...] Up Care 01/21/2023 16:19:43 With:Abhishek Monterroso Address: [address] [place] [phone]- Business (1) When:2 weeks Comments:Call for followup appointment With:Gentry Carrillo Address: [facility] [place] [address] Business (1) When:01/27/2023 09:30:00 [facility]06-24-2023 NoteProcedure [facility] poss PCI via right radial Patient [...] deep vein thrombosis (DVT) prophylaxis (Z79.899: Other fci (current) drug therapy) Orders: ticagrelor, 180 mg = 2 tab(s), Tab, Oral, Once, Stop date 01/22/23 14:32:00 EDT, NOW, Start date 01/22/23 14:32:00 EDT, 01/22/23 14:32:00 EDT ticagrelor, Tab, Misc, Once, Stop date 01/22/23 14:32:48 EDT, Physician Stop, 01/22/23 14:32:48 EDT [facility]Comment on above:Result Comment: Electronically Signed By: Kriss HAIDER, Abhishek Hagan\.brenna\Date and Time Signed: 01/22/23 22:12 [id number] NoteEchocardiology Procedure Exam Date/Time Accession # Ordering Echo Transthoracic w/ 01/22/2023 11:42 EDT [id number] Ellie OBANDO MD Contrast CPT code [id number] Reason for Exam (Echo Transthoracic w/ Contrast) Chest pain Report [facility] [address] [place] [address] Adult Echocardiogram Report Name: ESCOBAR ORTEGA Study Date: 01/22/2023 09:56 AM BP: 129/81 mmHg Patient Location: [address] [place] [address] HR: 89 : 1980 Gender: Female Height: [...] Signed by: Abhishek Monterroso MD Transcribed by: [facility] Technologist: [facility]06-22-2023 Note Chief Complaint pt states just seen for arm pain, given rx steroid. 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br\Date and Time Signed: 01/21/23 19:11 [id number] Note PROCEDURE: XR GI UPPER AIR KUB [...] Electronically authenticated by: MATTHEW SILVER Date: 2022-01-05 11:30[facility]06-06-2022 NotePROCEDURE: XR GI UPPER AIR KUB [...] Electronically authenticated by: MATTHEW SILVER Date: 2022-01-05 11:30[facility]06-06-2022 NotePROCEDURE: XR GI UPPER AIR KUB [...] Electronically authenticated by: MATTHEW SILVER Date: 2022-01-05 11:30[facility]* Clinical Note Date No Information [facility] Work Phone: Discharge summary* Clinical Note Date No Information [facility] Work Phone: Evaluation note* Diagnosis Infective otitis externa of left ear- Primary Herpes zoster without complication [facility] Blood glucose elevated- Primary Other abnormal glucose Hyperglycemia due to diabetes mellitus (HCC) Dehydration [facility]* Diagnosis Viral illness- Primary Unspecified viral infection, in conditions classified elsewhere and of unspecified site [facility]* Diagnosis Yeast infection- Primary Well woman exam with routine gynecological exam Routine gynecological examination Acute vaginitis Unspecified vaginitis and vulvovaginitis [facility]* Type Assessment Date No Information [facility] Work Phone: History and physical note* Clinical Note Date No Information [facility] Work Phone: History of Past illness Narrative* Condition Effective Dates (start - stop) O utcome No Information [facility] Work Phone: Hospital course Narrative No data available for this section [facility]* Attachments The following attachments cannot be sent through Care Everywhere. * Shingles ([place]) * Otitis Externa ([place]) [facility]* Attachments The following attachments cannot be sent through Care Everywhere. * URI (Upper Respiratory Infection): Viral ([place]i) [facility]* Date Instruction Additional Infor mation No Information [facility] Work Phone: Progress note No data available for this section [facility] Clinical Note Date No Information [facility] Work Phone: Reason for referral (narrative)* Reason For Referral No Information [facility] Work Phone: Review of systems Narrative - Reported* System Pos/Neg Findings No Information [facility] Work Phone: Summary Purpose Family History [...] section and content) DATE CREATED AUTHOR 06/22/2022 [facility] DATE CREATED AUTHOR AUTHOR'S ORGANIZ ATION 01/28/2023 [facility] DATE CREATED AUTHOR AUTHOR'S ORGANIZ ATION 03/15/2023 [facility] DATE CREATED AUTHOR AUTHOR'S ORGANIZ ATION 05/15/2023 [facility] DATE CREATED AUTHOR AUTHOR'S ORGANIZ ATION 10/05/2024 [facility] DATE CREATED AUTHOR AUTHOR'S ORGANIZ ATION 01/09/2025 [facility] EPIC DATE CREATED AUTHOR AUTHOR'S ORGANIZ ATION 04/25/2025 [facility] Patient Care team informatio n (unrecognized section and content) Boathouse Keeper Relationship Specialty Start Date End Date Gentry Carrillo MD [address] [place] [address] PCP - General Family Medicine 07/09/24 Boathouse Keeper Relationship Specialty Start Date End Date Gentry Carrillo MD [address] [place] [address] PCP - General Family Medicine 07/09/24 Boathouse Keeper Relationship Specialty Start Date End Date Gentry Carrillo MD [address] [place] [address] PCP - General Family Medicine 07/09/24 Boathouse Keeper Relationship Specialty Start Date End Date Gentry Carrillo MD [address] [place] [address] PCP - General Family Medicine 11/16/24 Boathouse Keeper Relationship Specialty Start Date End Date Gentry Carrillo MD [address] [place] [address] PCP - General Family Medicine 11/16/24 Boathouse Keeper Relationship Specialty Start Date End Date Gentry Carrillo MD [address] [place] [address] PCP - General Family Medicine 11/16/24 Name [...] BE BASED ON THE PRIMARY CLINICAL RECORDS. [employer] [facility]. provides no warranty or guarantee of the accuracy or completeness of information in this document.
[2025-05-12] MEDS: INSULIN ASPART 300 UNIT/3 ML PEN 6 UNIT SUBQ (19:08)
[2025-05-12] MEDS: METOPROLOL TARTRATE 25 MG TABLET PO (19:08)
[2025-05-12] MEDS: INSULIN GLARGINE 300 UNIT/3 ML INSULN.PEN 25 UNIT SQ (19:08)
[2025-05-12] MEDS: NITROGLYCERIN 0.1 MG/HR PATCH.TD24 1 PATCH TD (19:14)
[2025-05-12] MEDS: ATORVASTATIN CALCIUM 40 MG TABLET 80 MG PO (21:53)
[2025-05-12] MEDS: TICAGRELOR 90 MG TABLET PO (21:53)
[2025-05-12] MEDS: INSULIN ASPART 300 UNIT/3 ML PEN SUBQ (21:55)
[2025-05-13] VITALS (19 sets, daily range): BP systolic 102–162; BP diastolic 71–89; PULSE 73–106; TEMP 36.3–36.8; O2SAT 95–99
[2025-05-13 06:30] LABS: Hematocrit 39.2 % (36.0-48.0); Hemoglobin 13.6 g/dL (12.0-16.0); Mean Corpuscular HGB Conc 34.7 g/dL (29.9-35.2); Mean Corpuscular Hemoglobin 28.3 pg (26.7-34.0); Mean Corpuscular Volume 81.5 fL (81.0-99.0); Platelet Count 227 10^3/uL (150-450); Red Blood Count 4.81 10^6/uL (4.20-5.40); White Blood Count 6.2 10^3/uL (4.0-11.0)
[2025-05-13 06:43] LABS: Alanine Aminotransferase 31 U/L (14-59); Albumin Globulin Ratio 0.8; Albumin Level 3.1 g/dL (3.4-5.0); Alkaline Phosphatase 96 U/L (46-116); Anion Gap 15.7; Aspartate Amino Transferase 26 U/L (15-37); Blood Urea Nitrogen 12.0 mg/dL (7.0-18.0); Calcium 8.8 mg/dL (8.5-10.1); Carbon Dioxide 25.1 mmol/L (21.0-32.0); Chloride 102 mmol/L (98-107); Estimated GFR (African America >60 (>=60 mL/min/1.73m^2); Estimated GFR (Non-African Ame >60 (>=60 mL/min/1.73m^2); Globulin 3.7 g/dL; Glucose 177 mg/dL (74-106); Potassium 3.8 mmol/L (3.5-5.1); Sodium 139 mmol/L (136-145); Total Protein 6.8 g/dL (6.4-8.2)
[2025-05-13] MEDS: TICAGRELOR 90 MG TABLET PO ×2 (08:22→21:24)
[2025-05-13] MEDS: LISINOPRIL 20 MG TABLET 10 MG PO ×2 (08:22→21:23)
[2025-05-13] MEDS: METOPROLOL TARTRATE 25 MG TABLET PO ×2 (08:22→21:24)
[2025-05-13] MEDS: INSULIN ASPART 300 UNIT/3 ML PEN 6 UNIT SUBQ ×3 (08:23→16:27)
[2025-05-13] MEDS: INSULIN ASPART 300 UNIT/3 ML PEN SUBQ ×4 (08:23→21:25)
[2025-05-13] MEDS: ASPIRIN 81 MG TABLET.DR PO (08:23)
--- NOTE | 2025-05-13 08:57 | PM.HP ---
HPI H&P: HPI History of Present Illness Chief complaint: HEART PALPITATIONS SHORTNESS OF BREATH Narrative: Mrs. Ortega is a 45-year-old female with a known diagnosis of hypertension, diabetes and CAD. Patient had heart attack in 2022 and had a stent at [facility]. Patient has been taking aspirin, Brilinta and statin. Patient came yesterday complaining of chest pressure. Intensity is high. Radiation to both arms. Pressure is if somebody sitting on her chest. Mostly associated with exertion. Patient has to sit down to allow the pain to subside. Denies any shortness of breath. Denies any cough. No fever or chills. Opioid HPI Opioid Management Most Recent Pain and Opioid Data: Last Pain Scale 4 05/12/25, 18:00 Last Pain Assessment 05/12/25, 18:00 Last ORT Total Score 3 05/12/25, 17:08 Last ORT Risk Category Low Risk 05/12/25, 17:08 Review of Systems ROS Status of ROS 10 or more systems reviewed and unremarkable except as noted in history and below PFSH PFSH Medical History (Updated 05/13/25 @ 08:59 by Caio Castrejon MD) STEMI (ST elevation myocardial infarction) ?I21.3 - ST elevation (STEMI) myocardial infarction of unspecified site (ICD-10) Surgical History (Updated 05/12/25 @ 16:10 by Asia Richey) H/O heart artery stent ?Z95.5 - Presence of coronary angioplasty implant and graft (ICD-10) Social History Smoking status: Never smoker Highest level of school completed/degree received: high school graduate Little interest or pleasure in doing things: not at all Feeling down, depressed, or hopeless: not at all Meds Home Medications and Allergies Home Medications ?Medication ?Instructions ?Recorded ?Confirmed ?Type hydroxyzine HCl 25 mg tablet 25 mg PO BID PRN anxiety #20 tabs 05/01/23 05/12/25 Rx aspirin 81 mg tablet,delayed 81 mg PO DAILY 05/25/23 05/12/25 History release atorvastatin 80 mg tablet 80 mg PO DAILY 05/25/23 05/12/25 History ticagrelor 90 mg tablet (Brilinta) 90 mg PO BID 05/25/23 05/12/25 History nitroglycerin 0.4 mg sublingual 0.4 mg sublingual Q5M PRN chest 08/09/23 05/12/25 History tablet pain insulin aspart U-100 100 unit/mL 60 unit subcut BID 10/22/24 05/12/25 History (3 mL) subcutaneous pen insulin aspart U-100 100 unit/mL 5 unit subcut Q6H 10/22/24 05/12/25 History subcutaneous solution lisinopril 20 mg tablet 20 mg PO DAILY 05/12/25 05/12/25 History Allergies Allergy/AdvReac Type Severity Reaction Status Date / Time penicillin G AdvReac Intermediate Hives Verified 10/22/24 10:59 Exam Narrative Exam Narrative: [pt is awake and alert. oriented to place, time and person HEENT: [place] conjunctiva and NL buccal mucosa Neck: Supple, no tenderness Endocrine: No Thyromegaly. Vascular: No JVD or carotid bruit. Lymphatic: No cervical lymphadenopathy. Chest: CTA no DTP. Heart RRR, no extra sound or murmur. Abd: Soft, no tenderness, no rebound and no rigidity. Increase abd girth therefore clinically I could not exclude the possibility of intra abd mass or organomegaly. LE: No cyanosis or clubbing, no varices or edema. Neuro: A A O. Nl speech, comprehension and attention. Nl and symetrical motor and tone examination through out. []] Constitutional Vital Signs, click to edit/add: Last Vital Signs Temp 97.8 F 05/13/25 08:00 Pulse 82 05/13/25 08:00 Resp 18 05/13/25 08:00 BP 162/89 H 05/13/25 08:00 Pulse Ox 98 05/13/25 08:00 O2 Del Method Room Air 05/13/25 08:00 Results Labs Labs: Short CBC 05/12/25 05/13/25 Range/Units 13:55 06:02 WBC 6.4 6.2 (4.0-11.0) 10^3/uL Hgb 14.2 13.6 (12.0-16.0) g/dL Hct 39.6 39.2 (36.0-48.0) % Plt Count 256 227 (150-450) 10^3/uL BMP 05/12/25 05/13/25 13:55 06:02 Sodium 134 L 139 Potassium 4.2 3.8 Chloride 98 102 Carbon Dioxide 23.4 25.1 BUN 13.0 12.0 Creatinine 0.79 0.55 Glucose 465 H 177 H Calcium 9.0 8.8 Liver Function 05/13/25 Range/Units 06:02 Total Bilirubin 0.7 (0.2-1.0) mg/dL AST 26 (15-37) U/L ALT 31 (14-59) U/L Alkaline Phosphatase 96 (46-116) U/L Albumin 3.1 L (3.4-5.0) g/dL Assessment and Plan Assessment and Plan (1) Angina pectoris: (2) Diabetes: (3) Hypertension: Plan Angina suspect Chest heaviness as if somebody sitting on her chest, radiation to both arms, associated with exertion Patient denies any shortness of breath. No tachypnea. No hypoxemia saturation 98%., Unlikely pulmonary embolism Chest x-ray does not show any pneumothorax or infiltration. Thus far her serial troponin are negative. EKG does not show ST elevation or depression. No evidence of AK. Patient is already on dual antiplatelet therapy and statin. I added Lopressor 25 mg twice daily and Nitropatch daily. Patient will likely require require to have ischemic evaluation. Cardiac cath versus stress to be addressed by cardiology team. Echocardiogram to rule out any regional abnormalities. Hypertension, poor control I added metoprolol 25 mg twice daily Titrate accordingly. Diabetes, uncontrolled. A1c was 11 in January I started patient on long-acting insulin as well as meal insulin and sliding scale. Check A1c. Titrate insulin to keep blood sugar between 125 and 180. Postdischarge, the goal should be blood sugar between 110 and 140. DVT prophylaxis Lovenox subcu.
--- NOTE | 2025-05-13 09:04 | ECG_ITS ---
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 Measurements Intervals [place] Rate: 75 P: 59 SC: 168 QRS: 9 QRSD: 83 T: 9 QT: 385 QTc: 433 Interpretive Statements SINUS RHYTHM Normal ECG Compared to ECG 05/12/2025 13:45:15 No significant changes Electronically Signed On 05-13-2025 11:11:16 EDT by KINGA BREEN M.D.
[2025-05-13] MEDS: AMLODIPINE BESYLATE 5 MG TABLET 2.5 MG PO (09:28)
[2025-05-13] MEDS: FLU VACC TS2025-26(6MOS UP)/PF FLULAVAL 45 MCG/0.5 ML SYRINGE IM (09:30)
[2025-05-13] MEDS: PNEUMOC 20-VAL CONJ-DIP CRM/PF 0.5 ML SYRINGE IM (09:31)
[2025-05-13] MEDS: ENOXAPARIN SODIUM 40 MG/0.4 ML SYRINGE SUBQ (18:10)
[2025-05-13] MEDS: NITROGLYCERIN 0.1 MG/HR PATCH.TD24 1 PATCH TD (18:10)
[2025-05-13] MEDS: INSULIN GLARGINE 300 UNIT/3 ML INSULN.PEN 35 UNIT SQ (21:24)
[2025-05-13] MEDS: ATORVASTATIN CALCIUM 40 MG TABLET 80 MG PO (21:24)
[2025-05-14] VITALS (14 sets, daily range): BP systolic 105–128; BP diastolic 65–85; PULSE 85–95; TEMP 36.4; O2SAT 95–98
--- NOTE | 2025-05-14 06:40 | CA_ITS ---
Patient Name: ESCOBAR NASH MR#: [id number] : 1980 Exam Date: 05/14/2025 Ordering Doctor: OMAR GEORGE ECHOCARDIOGRAM REPORT PROCEDURE: CA ECHO DOPPLER COMPLETE INDICATIONS: CAD, Chest pain COMPARISON: None. DESCRIPTION: COMPLETE ECHOCARDIOGRAM Real-time transthoracic echocardiography with 2D, M-mode, spectral and color flow Doppler performed. QUALITY: Technical quality was good. LEFT VENTRICLE: Normal chamber size. Mild concentric left ventricular hypertrophy. Global left ventricular systolic function is normal. LV EF: Visual estimation of left ventricular ejection fraction is 60-65%. DIASTOLIC: Normal diastolic function. ATRIAL SEPTUM: LEFT ATRIUM: Normal chamber size. RIGHT ATRIUM: Normal chamber size. RIGHT VENTRICLE: Normal chamber size. Normal right ventricular systolic function. TRICUSPID VALVE: Normal mobility and thickness. No stenosis with trivial regurgitation. No evidence of pulmonary hypertension. RVSP 33 mmHg. MITRAL VALVE: Normal mobility and thickness. No evidence of mitral valve stenosis. There is no mitral annular calcification. No mitral regurgitation. AORTIC VALVE: Normal trileaflet appearance. No visible sclerosis. Normal leaflet mobility. No evidence of aortic valve stenosis. No aortic regurgitation. AORTIC ROOT: Normal diameter and appearance, measuring 3.5 cm. The ascending aorta is normal in size measuring 3.1 cm. PULMONIC VALVE: Normal thickness and mobility. No stenosis. Trivial regurgitation. PERICARDIUM: No evidence of pericardial effusion. IVC: Collapses with inspiration. Normal size. PLEURA: CONCLUSION: 1. Mild concentric left ventricular hypertrophy with normal systolic function. LVEF is estimated at 60 to 65%. 2. Normal right ventricular size and systolic function. 3. Normal diastolic function. 4. No significant valvular dysfunction. 5. Normal right-sided pressures. 6. No pericardial effusion. Adult Echocardiography Procedure Report Left Ventricle LVEDD (3.7 - 5.6 cm): 3.67 cm LVESD (2.2 - 4.0 cm): 2.45 cm LVIVS thickness (0.6 - 1.2 cm): 1.06 cm LVPW thickness (0.5 - 1.0 cm): 1.14 cm e': 0.09 m/s E - e': 7.28 LVOT Max Gradient: 2.21 mm[Hg] LVOT Area (cm2): 0.74 m/s Peak Velocity (LVOT): 0.74 m/s Mean Velocity (LVOT): 0.45 m/s LVOT Diameter 2.00 cm Left Ventricular Ejection Fraction: 60-65 % Left Atrium LA Volume Index (2D A2C): 13.20 ml/m2 Left Atrium Systolic Dimension: 2.92 cm Mitral Valve MV E to A Ratio: 0.94 Mitral Valve A-Wave Peak Velocity: 0.69 m/s Mitral Valve E-Wave Peak Velocity: 0.65 m/s Right Ventricle RV Internal Diastolic Dimension: 3.02 cm Aorta AO Root Diam: 3.45 cm Ascending Ao Diam: 3.12 cm Aortic Valve AoV Area (Peak Deepak): 2.60 cm2, 2.60 cm2 AoV Area (VTI): 2.89 cm2, 2.89 cm2 Peak Velocity(Antegrade Flow): 0.89 m/s Peak Gradient(Antegrade Flow): 3.20 mm[Hg] Mean Velocity(Antegrade Flow): 0.57 m/s Mean Gradient(Antegrade Flow): 1.53 mm[Hg] Velocity Time Integral: 13.98 cm Tricuspid Valve Peak Velocity (Regurgitant Flow): 2.75 m/s Pulmonic Valve Mean Gradient: 1.06 mm[Hg], 1.40 mm[Hg], 1.06 mm[Hg], 0.83 mm[Hg] Mean Velocity: 0.47 m/s, 0.56 m/s, 0.50 m/s, 0.43 m/s Peak Velocity: 0.70 m/s Peak Gradient: 2.16 mm[Hg], 2.90 mm[Hg], 1.53 mm[Hg], 1.36 mm[Hg] Right Atrium Right Atrium Systolic Pressure: 18.95 ml, 18.95 ml Dictated by: Kenny Baird M.D. on 05/14/2025 at 13:08 Approved by: Kenny Baird M.D. on 05/14/2025 at 13:13
[2025-05-14] MEDS: TICAGRELOR 90 MG TABLET PO (09:08)
[2025-05-14] MEDS: METOPROLOL TARTRATE 25 MG TABLET PO (09:08)
[2025-05-14] MEDS: LISINOPRIL 20 MG TABLET 10 MG PO (09:09)
[2025-05-14] MEDS: INSULIN ASPART 300 UNIT/3 ML PEN 6 UNIT SUBQ ×2 (09:09→11:08)
[2025-05-14] MEDS: ASPIRIN 81 MG TABLET.DR PO (09:15)
--- NOTE | 2025-05-14 10:00 | CM.NOTE ---
Rounds made with Dr. Ansari, discussed plan of care with pt. Cardiology will consult with pt today for further recommendations. Pt denies any CP today. Possible discharge to home after cardiology consult. No discharge needs identified. Pt able to perform all ADL's per self. Pt will need to f/u with PCP and cardiology. Discussed with pt A1C and need for better control. Pt does use insulin at home, pt states sugars run in 200's.
[2025-05-14] MEDS: INSULIN ASPART 300 UNIT/3 ML PEN SUBQ (11:09)
--- NOTE | 2025-05-14 13:34 | CM.NOTE ---
CM in to speak with pt regarding diabetes and education. Pt given written information and in agreement for CM to set her up with [facility] for diabetes management. CM discussed with pt diet, exercise management for diabetes and importance of regulating insulin and attending f/u appointments for closer management. CM will fax pt records to [facility] for setting up outpatient education, [facility] will contact pt. Pt verbalizes understanding that [facility] will reach out for appointment, CM will give pt telephone number for [facility] diabetic eduction to contact if she does not hear from them in the next week.
--- NOTE | 2025-05-14 14:28 | PM.PN ---
Progress Note: Subjective Subjective Interval history: Patient was evaluated at bedside, denies chest pain or SOB while here, however, she does report how she gets SOB and had chest heaviness at home with activities, improved with rest and NG SL. denies dizziness, diaphoresis. BP and HR controlled and stable so far. Exam Narrative Exam Narrative: pt is awake and alert. oriented to place, time and person HEENT: [place] conjunctiva Neck: Supple, no tenderness Vascular: No JVD or carotid bruit. Lymphatic: No cervical lymphadenopathy. Chest: CTA no DTP. Heart RRR, no extra sound or murmur. Abd: Soft, no tenderness, no rebound and no rigidity. Increase abd girth therefore clinically I could not exclude the possibility of intra abd mass or organomegaly. LE: No cyanosis or clubbing, no varices or edema. Neuro: A A Ox 3. Normal speech, comprehension and attention. No obvious new focal deficits. Constitutional Vital Signs, click to edit/add: Last Vital Signs Temp 97.5 F L 05/14/25 11:48 Pulse 89 05/14/25 13:44 Resp 20 05/14/25 11:48 BP 128/65 05/14/25 11:48 Pulse Ox 95 05/14/25 11:48 O2 Del Method Room Air 05/14/25 11:48 Progress Note: A&P Assessment and Plan (1) Angina pectoris: (2) Diabetes: (3) Hypertension: Plan Stable angina Hx of CAD with PCI in 2022 at [facility] Patient denies any shortness of breath. No tachypnea. No hypoxemia saturation 98%., Unlikely pulmonary embolism Chest x-ray does not show any pneumothorax or infiltration. Trop trend WNL. EKG with no obvious acute ischemic changes Patient is already on dual antiplatelet therapy and statin. was started here on Lopressor 25 mg twice daily and Nitropatch daily. Echocardiogram ordered. showed normal EF and LV function, mild LVH. Cardio consulted. defer to cardiology team decision regarding ischemic workup Hypertension, well controlled -Continue metoprolol 25 mg twice daily Titrate accordingly. Diabetes with hyperglycemia, uncontrolled. started patient on long-acting insulin as well as meal insulin and sliding scale. A1c11.8 Titrate insulin to keep blood sugar between 125 and 180. Placed on long and short acting as directed Postdischarge, the goal should be blood sugar between 110 and 140. DVT prophylaxis Lovenox subcu. Discussed with pt and at bedside, all questions answered
--- NOTE | 2025-05-14 16:16 | P.DS_ITS ---
DS: Providers Provider Date of admission: 05/12/25 16:55 Primary care physician: Gentry Wolf MD Consults: 05/13/25 09:03 Consult to Cardiology Routine Reason for consultation: Angina is suspected, will need ischemic evaluation DS: Diagnosis Discharge Diagnosis (1) Angina pectoris: (2) Diabetes: (3) Hypertension: Plan Stable angina - not on anginal meds Hx of CAD with PCI in 2022 at [facility] Hypertension, well controlled Diabetes with hyperglycemia, uncontrolled. DS: Summary Hospital Course Hospital Course: Mrs. Ortega is a 45-year-old female with a known diagnosis of hypertension, diabetes and CAD. Patient had heart attack in 2022 and had a stent at [facility]. Patient has been taking aspirin, Brilinta and statin. Patient came yesterday complaining of chest pressure. Intensity is high. Radiation to both arms. Pressure is if somebody sitting on her chest. Mostly associated with exertion. Patient has to sit down to allow the pain to subside. Denies any shortness of breath. Denies any cough. No fever or chills. During hospital course, patient was monitored, no further chest pain after initiated on beta blockers, unclear why she was not on BB after her CAD with PCI event. Patient has been doing well here. Echo was done which came back normal. Remained hemodynamically stable. Cardio was consulted, recommended outpatient stress test given normal Echo and trops. A1C 11.8, discussed with pt and made adjustment to her regimen, starting long acting 60 units + sliding scale during the day before meals. stop her 60 units of short acting twice daily. Discussed with pt at bedside, all questions answered. she is in agreement with plan of managment. Time Spent with Patient Time attestation: Total time spent providing and/or coordinating discharge services: Time spent: greater than 30 minutes Exam Narrative Exam Narrative: pt is awake and alert. oriented to place, time and person HEENT: [place] conjunctiva Neck: Supple, no tenderness Vascular: No JVD or carotid bruit. Lymphatic: No cervical lymphadenopathy. Chest: CTA no DTP. Heart RRR, no extra sound or murmur. Abd: Soft, no tenderness, no rebound and no rigidity. Increase abd girth therefore clinically I could not exclude the possibility of intra abd mass or organomegaly. LE: No cyanosis or clubbing, no varices or edema. Neuro: A A Ox 3. Normal speech, comprehension and attention. No obvious new focal deficits. Constitutional Vital Signs, click to edit/add: Last Vital Signs Temp 97.5 F L 05/14/25 15:16 Pulse 95 H 05/14/25 15:44 Resp 18 05/14/25 15:16 BP 128/85 05/14/25 15:16 Pulse Ox 95 05/14/25 15:16 O2 Del Method Room Air 05/14/25 15:16 DS: Data Data Completed and Pending Labs on day of discharge: Labs from last 24 hours 05/14/25 05/14/25 05/13/25 10:53 07:19 21:18 POC Glucose 262 H 154 H 209 H 05/13/25 16:25 POC Glucose 186 H Discharge Plan Discharge Disposition: Home, Self-Care Condition: Good Plan of Treatment: -Added Metoprolol 25 mg twice daily -Start long acting insulin 60 units at night. Sliding scale during the day as per sugar checks -Follow with PCP for further recommendations -Follow with cardiology for outpatient stress test Discharge Medications: New metoprolol tartrate 25 mg Tablet 25 mg PO BID Qty: 60 0RF insulin glargine [Lantus Solostar U-100 Insulin] 100 unit/mL (3 mL) Insulin Pen 60 unit subcut HS Qty: 15 0RF Continued hydroxyzine HCl 25 mg tablet 25 mg PO BID PRN (Reason: anxiety) Qty: 20 0RF ticagrelor [Brilinta] 90 mg tablet 90 mg PO BID atorvastatin 80 mg tablet 80 mg PO DAILY aspirin 81 mg tablet,delayed release (DR/EC) 81 mg PO DAILY insulin aspart U-100 100 unit/mL solution 5 unit subcut Q6H Patient Comments: for every blood sugar over 150 lisinopril 20 mg tablet 20 mg PO DAILY nitroglycerin 0.4 mg tablet, sublingual 0.4 mg sublingual Q5M PRN (Reason: chest pain) Qty: 30 0RF Discontinued insulin aspart U-100 100 unit/mL (3 mL) insulin pen 60 unit SUBCUT BID Print Language: Maltese Patient Instructions: Metoprolol (By mouth), Insulin Glargine (By injection) (Lantus, Lantus SoloStar, Toujeo, Semglee), Angina (DC) 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 Wolf [phone] Dr. Chapa Jun 11 10:40
--- NOTE | 2025-05-14 16:56 | DIETREC ---
Recommend change diet to 1800 kcal CCD, Heart Healthy diet to more closely meet pt?s estimated energy needs.
--- NOTE | 2025-05-14 17:25 | PM.CACN ---
History of Present Illness History of Present Illness Chief complaint: HEART PALPITATIONS SHORTNESS OF BREATH Narrative: Renu Ortega is a 45-year-old female with a significant past medical history of hypertension, diabetes mellitus, and coronary artery disease status post PCI with AURORA to the LCx in December 2022 at [facility] (on aspirin and Brilinta). She presented to yesterday with complaints of intermittent chest pressure radiating to both arms over the past two weeks, occurring primarily with exertion. She denies associated shortness of breath. Of note, she was not previously on a beta-alicia or any antianginal therapy. The patient was seen and evaluated at the bedside this morning. She currently denies chest pain, shortness of breath, palpitations, dizziness, or lower extremity edema. Review of Systems ROS Status of ROS 10 or more systems reviewed and unremarkable except as noted in history and below [facility] Medical History (Updated 05/13/25 @ 08:59 by Caio Castrejon MD) STEMI (ST elevation myocardial infarction) ?I21.3 - ST elevation (STEMI) myocardial infarction of unspecified site (ICD-10) Surgical History (Updated 05/12/25 @ 16:10 by Asia Richey) H/O heart artery stent ?Z95.5 - Presence of coronary angioplasty implant and graft (ICD-10) Social History Smoking status: Never smoker Highest level of school completed/degree received: high school graduate Little interest or pleasure in doing things: not at all Feeling down, depressed, or hopeless: not at all Meds Home Medications and Allergies Home Medications ?Medication ?Instructions ?Recorded ?Confirmed ?Type hydroxyzine HCl 25 mg tablet 25 mg PO BID PRN anxiety #20 tabs 05/01/23 05/12/25 Rx aspirin 81 mg tablet,delayed 81 mg PO DAILY 05/25/23 05/12/25 History release atorvastatin 80 mg tablet 80 mg PO DAILY 05/25/23 05/12/25 History ticagrelor 90 mg tablet (Brilinta) 90 mg PO BID 05/25/23 05/12/25 History insulin aspart U-100 100 unit/mL 5 unit subcut Q6H 10/22/24 05/12/25 History subcutaneous solution lisinopril 20 mg tablet 20 mg PO DAILY 05/12/25 05/12/25 History insulin glargine 100 unit/mL (3 60 unit (0.6 mL) subcut HS #15 mL 05/14/25 Rx mL) subcutaneous pen (Lantus Solostar U-100 Insulin) metoprolol tartrate 25 mg tablet 25 mg PO BID #60 tabs 05/14/25 Rx nitroglycerin 0.4 mg sublingual 0.4 mg sublingual Q5M PRN chest 05/14/25 Rx tablet pain #30 tabs Allergies Allergy/AdvReac Type Severity Reaction Status Date / Time penicillin G AdvReac Intermediate Hives Verified 10/22/24 10:59 Exam Constitutional Vital Signs, click to edit/add: Last Vital Signs Temp 97.5 F L 05/14/25 15:16 Pulse 95 H 05/14/25 15:44 Resp 18 05/14/25 15:16 BP 128/85 05/14/25 15:16 Pulse Ox 95 05/14/25 15:16 O2 Del Method Room Air 05/14/25 15:16 Results Labs and Meds Lab results: Intake and Output 05/14/25 05/14/25 05/14/25 07:59 15:59 23:59 Intake Total 360 / 360 Balance 360 / 360 Intake: Oral 360 / 360 Other: # Voids 1 Assessment and Plan Assessment and Plan (1) Angina pectoris: (2) Diabetes: (3) Hypertension: Plan #CAD / Chest Pain CAD s/p PCI with AURORA to LCX (December 2022). LAD demonstrates mild diffuse irregularity (<30%) without significant stenosis. RCA with mild diffuse disease (<50%) and PDA ostial stenosis ~50%. On presentation, patient reported intermittent chest discomfort with radiation to BL arms but is currently chest pain?free. 12-lead ECG demonstrates no ischemic changes. High-sensitivity troponins are negative. TTE (05/14/25): LVEF 60?65%, no regional wall motion abnormalities, mild LVH, no significant valvular dysfunction, no pericardial effusion, and normal right-sided pressures. ? Given her coronary history and recent exertional symptoms, an outpatient Lexiscan nuclear stress test is appropriate to further assess for ischemia ? Continue close follow-up in the cardiology clinic ? Continue metoprolol tartrate 25 mg BID and nitroglycerin patch for antianginal therapy (newly initiated this admission) #Hypertension Stable ? Continue metoprolol tartrate 25 mg BID (initiated this admission) ? Continue lisinopril 20 mg daily #Hyperlipidemia On atorvastatin 80 mg #Diabetes Mellitus Hemoglobin A1c 11% ? poorly controlled ? Management per hospital team - initiated on long-acting insulin during this admission
--- OUTSIDE RECORDS SUMMARY | 2025-05-15 08:52 | XMS_ITS | Clinical Summary ---
Author Organization [facility] Address [address] [place] [address] Care Team Providers Care Continuous Mining Machine Coal Miner Name Role Phone Gentry Wolf MD Primary Care Provider [phone] Allergies Active Allergy Reactions Criticality Noted Date [...] plicating in first trimester, antepartum 06/22/2019 02/05/2023 Encounters Date Type Department Care Team Description 05/14/2025 Orders Only [facility] Heart at [facility] [address] [place] [address] Cait Crowell MA Other chest pain (Primary Dx) from Last 3 Months Family History Medical [...] 02/05/2023 11:45 AM EDT Plan of Treatment Upcoming Encounters Date Type Department Care Team (Late st Contact Info) Description 06/11/2025 10:40 AM EST Office Visit [facility] Heart at [facility] [address] [place] [address] Bruce Chapa MD [address] [place] [address] Health Maintenance Due Date Last Done Comments CT Colonography 1978 Colonoscopy 1978 Colorectal Cancer Screening 1978 Diabetes: Hemoglobin A1C 1978 FIT-DNA 1978 FIT 1978 FOBT 1978 Sigmoidoscopy 1978 Diabetes: Retinopathy Screening 01/21/1988 Depression Screening 1990 Diabetes: Urine Protein Screening 1997 Hepatitis B Vaccines (1 of 3 - 19+ 3-dose series) 1997 Adult Tetanus 01/21/2000 HPV/Cotest 01/21/2008 Mammogram 2018 COVID-19 Vaccine (2 - 2024-2 6 season) 2025 11/30/2020 Cervical Cancer Screening 01/09/2028 Pap Smear 01/09/2028 01/08/2025 Zoster Vaccines (1 of 2) 01/21/2028 Influenza Vaccine Completed 05/13/2025 Pneumococcal Vaccine: Pediat rics (0 to 5 Years) and At-Risk Patients (6 to 64 Years) Completed 05/13/2025 HIB Vaccines Aged Out No longer eligi [...] patient's age to complete this topic Insurance [facility] MEDICAID Care Teams Continuous Mining Machine Coal Miner Relationship Specialty Start Date End Date Gentry Wolf MD [address] [place] [address] PCP - General 02/04/23
--- OUTSIDE RECORDS SUMMARY | 2025-05-15 08:52 | XMS_ITS | Encounter Summary ---
Author Organization [facility] tem Address [id number] [address] [place] [address] Care Team Providers Care Development Intern Name Role Phone Gentry Wolf MD Primary Care Provider + Reason for Visit * Reason Comments Med Refill Encounter Details Date Type Department Care Team (Late st Contact Info) Description 05/12/2022 Refill [facility]- [facility] at [facility] [address] [place] [phone] Eddie Rios MD Pre-existing type 2 diabetes [...] documented as of this encounter Care Teams Development Intern Relationship Specialty Start Date End Date Gentry Wolf MD PCP - General Family Medicine 06/22/19 documented as of this encounter
--- OUTSIDE RECORDS SUMMARY | 2025-05-15 08:52 | XMS_ITS | Clinical Summary ---
Author Organization [facility] Address [address], [address] [place] [address] Care Team Providers Care Director Of Cath Lab Name Role Phone Gentry Wolf MD Primary Care Provider [phone] Allergies Active Allergy Reactions Criticality Noted Date [...] Comments DTaP/Tdap/Td vaccine (1 - Tdap) 1997 Flu vaccine (#1) 03/02/2025 COVID-19 Vaccine (2023-2 5 season) 2025 Polio vaccine Aged Out No longer carina alvarez based on patient's age to complete this topic Insurance [facility] [place] Care Teams Director Of Cath Lab Relationship Specialty Start Date End Date Gentry Wolf MD [address] [place] [address] PCP - General Family Medicine 07/09/24
--- OUTSIDE RECORDS SUMMARY | 2025-05-15 08:52 | XMS_ITS | Encounter Summary ---
Author Organization [facility] tem Address [id number] [address] [place] [address] Care Team Providers Care Director Of Corporate Strategy Name Role Phone Gentry Wolf MD Primary Care Provider [phone] Reason for Visit * Reason Onset Date Comments Med Refill Med Refill 12/03/2020 Encounter Details Date Type Department Care Team (Late st Contact Info) Description 11/27/2020 Refill Maternal- Medicine at [facility] [address] [place] [address] Marianne Medeiros M, CONSTRUCTION PROJECT ENGINEER[employer] [address] [place] [address] Pre-existing type 2 diabetes mellitus in in [...] documented as of this encounter Care Teams Director Of Corporate Strategy Relationship Specialty Start Date End Date Gentry Wolf MD PCP - General Family Medicine 06/22/19 documented as of this encounter
--- OUTSIDE RECORDS SUMMARY | 2025-05-15 08:52 | XMS_ITS | Clinical Summary ---
Author Organization [facility] Address [address] [place] [address] Care Team Providers Care Manager Project Management Name Role Phone Gentry Wolf MD Primary Care Provider [phone] Allergies Active Allergy Reactions Criticality Noted Date [...] EDT Office Visit [facility] [address] [place] [place] [phone] Leland Claros DO [address] [place] [address] Insurance [facility] MEDICAID Care Teams Manager Project Management Relationship Specialty Start Date End Date Gentry Wolf MD [address] [facility] [place] [address] PCP - General Family Medicine 11/16/24
--- OUTSIDE RECORDS SUMMARY | 2025-05-15 08:52 | XMS_ITS | Encounter Summary ---
Author Organization [facility] Address [address] [place] [address] Care Team Providers Care Brim And Crown Presser Name Role Phone Gentry Wolf MD Primary Care Provider [phone] Encounter Details Date Type Department Care Team (Late Contact Info) Description 01/11/2025 Abstract [facility] [address] [place] [address] Maya Lugo MA Social History Tobacco Use [...] 01/14/2026 3:00 PM EDT Office Visit [facility] [address] [place] [address] Leland Claros DO [address] [place] [address] documented as of this encounter Visit Diagnoses Not on filedocumented in this encounter Care Teams Brim And Crown Presser Relationship Specialty Start Date End Date Gentry Wolf MD [address] [facility] [place] [phone] PCP - General Family Medicine 11/16/24 documented as of this encounter
--- OUTSIDE RECORDS SUMMARY | 2025-05-15 08:52 | XMS_ITS | Clinical Summary ---
Author Organization [facility] Address [id number] [address] [place] [address] Care Team Providers Care Locomotive Mechanic Name Role Phone Gentry Wolf MD Primary Care Provider [phone] Allergies Active Allergy Reactions Criticality Noted Date Comments Penicillins Hives 05/26/2019 Medications labetalol (NORMODYNE) 200 mg tablet Take 300 mg by mouth 3 (three) times a day. Active aspirin 81 mg Take 81 mg by mouth daily. Active PNV [id number] 1-DSS-DHA ORAL Take 1 tablet by mouth [...] strip 8 08/26/2020 Active pen needle, diabetic (Blueroof 360 ULTRA-FINE SHORT PEN NEEDLE) 31 gauge x [...] Not on file Insurance MEDICAID Care Teams Locomotive Mechanic Relationship Specialty Start Date End Date Gentry Wolf MD PCP - General Family Medicine 06/22/19
--- OUTSIDE RECORDS SUMMARY | 2025-05-15 08:52 | XMS_ITS | Patient Health Record ---
Author Organization The [facility] in [place] Address [address] [place] [address] Care Team Providers Care Hedge Fund Manager Name Role Phone Phillip Wolf Primary Care Provider Allergies Allergen (clinical drug ingredient) Drug/Non Drug Allergy documented on EMR Reaction Allergy Type Onset Date Status Penicillin rash- childhood Drug Allergy Active Results Component Value Reference Range Notes CBC AUTO DIFF Reviewed date:02/15/2025 06:11:00 PM Interpretation: Performing Lab: Notes/Report: [facility] , White Blood Count 7.1 4.0-11.0 10 [...] 3/uL Performing Lab: see note ML - [facility] LB DIRECT LDL Reviewed date:02/15/2025 06:11:00 PM Interpretation: Performing Lab: Notes/Report: [facility] , LDL Cholesterol Direct 108 <100 mg/dl OPTIMAL 100-129 mg/dl NEAR OR ABOVE OPTIMAL 130-159 mg/dl BORDERLINE HIGH 160-189 mg/dl HIGH >190 mg/dl VERY HIGH Performing Lab: see note ML - [facility] LB FREE T3 Reviewed date:02/15/2025 06:11:00 PM Interpretation: Performing Lab: Notes/Report: [facility] , Free T3 3.19 2.18-3.98 pg/mL Performing Lab: see note ML - [facility] LB LIPID PROFILE Reviewed date:02/15/2025 06:11:00 PM Interpretation: Performing Lab: Notes/Report: [facility] , Triglycerides 578 <=150 mg/dL Cholesterol 228 <=200 mg/dL HDL Cholesterol 38 40-60 mg/dL > or =60 mg/dl - LOW CARDIOVASCULAR RISK <40 mg/dl - HIGH CARDIOVASCULAR RISK VLDL CHOLESTEROL 115.6 Chol HDL Ratio 6.0 3.3 - 4.4 LOW RISK 4.4 - 7.1 AVERAGE RISK 7.1 - 11.0 MODERATE RISK >11.0 HIGH RISK Performing Lab: see note ML - [facility] LB PROF 14(COMP METB) Reviewed date:02/15/2025 06:11:00 PM Interpretation: Performing Lab: Notes/Report: [facility] , Sodium 132 136-145 mmol/L Potassium 4.1 [...] 0.8 Performing Lab: see note ML - [facility] LB T4 Reviewed date:02/15/2025 06:11:00 PM Interpretation: Performing Lab: Notes/Report: [facility] , T4 Thyroxine 8.50 4.80-13.90 ug/dL Performing Lab: see note ML - [facility] LB TSH Reviewed date:02/15/2025 06:11:00 PM Interpretation: Performing Lab: Notes/Report: [facility] , Thyroid Stimulating Hormone 1.596 0.358-3.740 u IU/mL Performing Lab: see note - [facility] LB MM tomosynthesis screening B I Reviewed date:02/22/2025 05:02:13 PM Interpretation: Performing Lab: Notes/Report: Source Facility: [place] [address] [place] [address] Mammography Report Signed Patient: ESCOBAR NASH MR#: [id number] : 1980 Acct:[id number] Age/Sex: 45 / F ADM Date: 02/22/25 Loc: MAMMO Attending Dr: Feli Wolf M.D. Ordering Physician: Feli Wolf M.D. Results: Date of Service: 02/22/25 Follow Up: Procedure(s): MM tomosynthesis screening BI Accession Number(s): [id number] cc: Feli Wolf M.D. Patient Name: ESCOBAR NASH MR#: [id number] : 1980 Exam Date: 02/22/2025 Ordering Doctor: DR FELI WOLF . RADIOLOGY REPORT PROCEDURE: MM TOMOSYNTHESIS SCREENING BI COMPARISON: None. INDICATIONS: Screening Calculator Name NCI Breast Cancer Risk Assessment Tool 5 Year Breast Cancer Risk 1.30% Lifetime Breast Cancer Risk 13.80% Personal Breast Cancer No Personal Ovarian Cancer No Treatments None Family Cancers Mother with lung cancer at age 51. LOCATION: [facility] BREAST COMPOSITION: There are scattered areas of [...] Rowe M.D. Signed By: 02/22/25 1630 DD/ 1629 TD/TT: Lottery Clerk: CBC AUTO DIFF Reviewed date:05/13/2025 08:34:21 PM Interpretation: Performing Lab: Notes/Report: [facility] , White Blood Count 6.4 4.0-11.0 10 3/uL Red Blood Count 4.97 4.20-5.40 10 6/uL Hemoglobin 14.2 12.0-16.0 g/dL Hematocrit 39.6 36.0-48.0 % Mean Corpuscular Volume 79.7 81.0-99.0 fL Mean Corpuscular Hemoglobin 28.6 26.7-34.0 pg Mean Corpuscular HGB Conc 35.9 29.9-35.2 g/dL Red Cell Distribution Width 12.3 11.0-15.0 % Platelet Count 256 150-450 10 3/uL Mean Platelet Volume 10.5 9.5-13.5 fL Neutrophils Percent Auto 57.9 43.0-75.0 % Lymphocytes Percent Auto 35.8 20.5-60.0 % Monocytes Percent Auto 4.8 1.7-12.0 % Eosinophils Percent Auto 0.6 0.9-7.0 % Basophils Percent Auto 0.6 0.2-2.0 % Immature Granulocytes Pct Auto 0.3 0.0-0.5 % Neutrophils Absolute Auto 3.7 1.4-6.5 10 3/uL Lymphocytes Absolute Auto 2.3 1.2-3.8 10 3/uL Monocytes Absolute Auto 0.3 0.3-0.8 10 3/uL Eosinophils Absolute Auto 0.0 0.0-0.7 10 3/uL Basophils Absolute Auto 0.0 0.0-0.1 10 3/uL Immature Granulocytes Abs Auto 0.02 0.00-0.03 10 3/uL Performing Lab: see note - [facility] PROF CHEM 8 (BAS METB) Reviewed date:05/13/2025 08:34:21 PM Interpretation: Performing Lab: Notes/Report: [facility] , Sodium 134 136-145 mmol/L Potassium 4.2 3.5-5.1 mmol/L Chloride 98 98-107 mmol/L Carbon Dioxide 23.4 21.0-32.0 mmol/L Anion Gap 16.8 Glucose 465 74-106 mg/dL Blood Urea Nitrogen 13.0 7.0-18.0 mg/dL Creatinine 0.79 0.55-1.02 mg/dL Estimated GFR ( Lashae >60 >=60 mL/min/1.73m 2 Estimated GFR (Non- Viette >60 >=60 mL/min/1.73m 2 BUN Creatinine Ratio 16.5 Calcium 9.0 8.5-10.1 mg/dL Performing Lab: see note ML - [facility] Troponin I High Sensitivity Reviewed date:05/13/2025 08:34:21 PM Interpretation: Performing Lab: Notes/Report: [facility] , Troponin I High Sensitivity 17.2 4.0-51.3 pg/m L CUT-OFF POINTS HAVE BEEN ESTABLISHED BASED ON THE FOURTH UNIVERSAL DEFINITION OF MYOCARDIAL INFARCTION. THE UPPER REFERENCE LIMIT (URL) OF TROPONIN, DEFINED THE 99TH PERCENTILE OF cTnI DISTRIBUTION IN A REFERENCE POPULATION, HAS BEEN CONFIRMED THE DECISION THRESHOLD FOR MT DIAGNOSIS. 99TH PERCENTILE = 51.4 PG/ML NOTE: HIGH-SENSITIVITY TROPONIN ASSAY IS NOT INTENDED TO BE USED IN ISOLATION BUT SHOULD BE INTERPRETED IN CONJUNCTION WITH OTHER DIAGNOSTIC AND CLINICAL INFORMATION. Performing Lab: see note ML - [facility] LB ECG 12 lead Reviewed date:05/13/2025 08:34:21 PM Interpretation: Performing Lab: Notes/Report: Source Facility: [place] [address] Electrocardiograph Report Signed Patient: ESCOBAR NASH MR#: [id number] : 1980 Acct:[id number] Age/Sex: 45 / F ADM Date: 05/12/25 Loc: ER Attending Dr: Ordering Physician: Bibiana Crespo M.D. Date of Service: 05/12/25 Procedure(s): ECG 12 lead Accession Number(s): [id number] cc: [facility] Test Date: 2025-05-12 Pat Name: ESCOBAR NASH Department: Room: - Gender: Female Gis Programmer: : 1980 Requested By: 1030 Order Number: [id number] Reading MD: KINGA BREEN M.D. Measurements Intervals Raymond Rate: 87 P: 58 KS: 150 QRS: 26 QRSD: 74 T: 15 QT: 374 QTc: 418 Interpretive Statements 1100 Sinus rhythm 8102 Low QRS voltage in chest leads 9120 atypical ECG Compared to ECG 08/09/2023 17:50:46 No significant changes Electronically Signed On 05-12-2025 14:45:29 EDT by KINGA BREEN M.D. Dictated By: KINGA BREEN Signed By: 05/12/25 1446 DD/ 1345 TD/TT: Lottery Clerk: ALIREZA chest 1V Reviewed date:05/13/2025 08:34:21 PM Interpretation: Performing Lab: Notes/Report: Source Facility: [place] [address] XRay Report Signed Patient: ESCOBAR NASH MR#: [id number] : 1980 Acct:[id number] Age/Sex: 45 / F ADM Date: 05/12/25 Loc: ER Attending Dr: Ordering Physician: Bibiana Crespo M.D. Date of Service: 05/12/25 Procedure(s): XR chest 1V Accession Number(s): [id number] cc: Feli Wolf M.D.; Bibiana Crespo M.D. [place] [id number] Patient Name: ESCOBAR NASH MRN: [facility]:[id number] date: 1980 Sex: F Assigned Patient Location: ER Current Patient Location: ED.MAIN Accession/Order Number: [id number] Exam Date: 05/12/2025 15:02 Report Date: 05/12/2025 15:40 At the request of: BIBIANA CRESPO MD Procedure: XR chest 1V PA CHEST: CLINICAL HISTORY: CP COMPARISON: 08/09/2023 Unremarkable cardiomediastinal silhouette. Lungs are clear. No effusion or pneumothorax. XR/XR chest 1V IMPRESSION: Negative for acute pleural-parenchymal disease. Impression dictated by: Magdaleno Temple M.D. 05/12/2025 3:40 PM Dictation Location: [place] [address] Electronically authenticated by: [id number] Y Date: 05/12/2025 15:40 Dictated By: Magdaleno Temple M.D. Signed By: 05/12/25 1543 DD/ 1540 TD/TT: Lottery Clerk: Troponin I High Sensitivity Reviewed date:05/13/2025 08:34:21 PM Interpretation: Performing Lab: Notes/Report: [facility] , Troponin I High Sensitivity 21.2 4.0-51.3 pg/m L CUT-OFF POINTS HAVE BEEN ESTABLISHED BASED ON THE FOURTH UNIVERSAL DEFINITION OF MYOCARDIAL INFARCTION. THE UPPER REFERENCE LIMIT (URL) OF TROPONIN, DEFINED THE 99TH PERCENTILE OF cTnI DISTRIBUTION IN A REFERENCE POPULATION, HAS BEEN CONFIRMED THE DECISION THRESHOLD FOR MT DIAGNOSIS. 99TH PERCENTILE = 51.4 PG/ML NOTE: HIGH-SENSITIVITY TROPONIN ASSAY IS NOT INTENDED TO BE USED IN ISOLATION BUT SHOULD BE INTERPRETED IN CONJUNCTION WITH OTHER DIAGNOSTIC AND CLINICAL INFORMATION. Performing Lab: see note ML - [facility] LB Troponin I High Sensitivity Reviewed date:05/13/2025 08:34:21 PM Interpretation: Performing Lab: Notes/Report: [facility] , Troponin I High Sensitivity 24.0 4.0-51.3 pg/m L CUT-OFF POINTS HAVE BEEN ESTABLISHED BASED ON THE FOURTH UNIVERSAL DEFINITION OF MYOCARDIAL INFARCTION. THE UPPER REFERENCE LIMIT (URL) OF TROPONIN, DEFINED THE 99TH PERCENTILE OF cTnI DISTRIBUTION IN A REFERENCE POPULATION, HAS BEEN CONFIRMED THE DECISION THRESHOLD FOR MT DIAGNOSIS. 99TH PERCENTILE = 51.4 PG/ML NOTE: HIGH-SENSITIVITY TROPONIN ASSAY IS NOT INTENDED TO BE USED IN ISOLATION BUT SHOULD BE INTERPRETED IN CONJUNCTION WITH OTHER DIAGNOSTIC AND CLINICAL INFORMATION. Performing Lab: see note ML - [facility] PROF 14(COMP METB) Reviewed date:05/13/2025 08:34:21 PM Interpretation: Performing Lab: Notes/Report: [facility] , Sodium 139 136-145 mmol/L Potassium 3.8 3.5-5.1 mmol/L Chloride 102 98-107 mmol/L Carbon Dioxide 25.1 21.0-32.0 mmol/L Anion Gap 15.7 Glucose 177 74-106 mg/dL Blood Urea Nitrogen 12.0 7.0-18.0 mg/dL Creatinine 0.55 0.55-1.02 mg/dL Estimated GFR ( Lashae >60 >=60 mL/min/1.73m 2 Estimated GFR (Non- Ivette >60 >=60 mL/min/1.73m 2 BUN Creatinine Ratio 21.8 Calcium 8.8 8.5-10.1 mg/dL Bilirubin Total 0.7 0.2-1.0 mg/dL Aspartate Amino Transferase 26 15-37 U/L Alanine Aminotransferase 31 14-59 U/L Alkaline Phosphatase 96 46-116 U/L Total Protein 6.8 6.4-8.2 g/dL Albumin Level 3.1 3.4-5.0 g/dL Globulin 3.7 Albumin Globulin Ratio 0.8 Performing Lab: see note ML - [facility] LB CBC no Diff (Hemogram) Reviewed date:05/13/2025 08:34:21 PM Interpretation: Performing Lab: Notes/Report: [facility] , White Blood Count 6.2 4.0-11.0 10 3/uL Red Blood Count 4.81 4.20-5.40 10 6/uL Hemoglobin 13.6 12.0-16.0 g/dL Hematocrit 39.2 36.0-48.0 % Mean Corpuscular Volume 81.5 81.0-99.0 fL Mean Corpuscular Hemoglobin 28.3 26.7-34.0 pg Mean Corpuscular HGB Conc 34.7 29.9-35.2 g/dL Red Cell Distribution Width 12.5 11.0-15.0 % Platelet Count 227 150-450 10 3/uL Mean Platelet Volume 10.2 9.5-13.5 fL Performing Lab: see note - [facility] Troponin I High Sensitivity Reviewed date:05/13/2025 08:34:21 PM Interpretation: Performing Lab: Notes/Report: [facility] , Troponin I High Sensitivity 19.2 4.0-51.3 pg/m L CUT-OFF POINTS HAVE BEEN ESTABLISHED BASED ON THE FOURTH UNIVERSAL DEFINITION OF MYOCARDIAL INFARCTION. THE UPPER REFERENCE LIMIT (URL) OF TROPONIN, DEFINED THE 99TH PERCENTILE OF cTnI DISTRIBUTION IN A REFERENCE POPULATION, HAS BEEN CONFIRMED THE DECISION THRESHOLD FOR MT DIAGNOSIS. 99TH PERCENTILE = 51.4 PG/ML NOTE: HIGH-SENSITIVITY TROPONIN ASSAY IS NOT INTENDED TO BE USED IN ISOLATION BUT SHOULD BE INTERPRETED IN CONJUNCTION WITH OTHER DIAGNOSTIC AND CLINICAL INFORMATION. Performing Lab: see note - [facility] CA echo doppler complete Reviewed date:05/14/2025 02:02:15 PM Interpretation: Performing Lab: Notes/Report: Source Facility: [place] [address] Cardiology Report Signed Patient: ESCOBAR NASH MR#: [id number] : 1980 Acct:[id number] Age/Sex: 45 / F ADM Date: 05/12/25 Loc: MS 213-[address]: Caio George M.D. Ordering Physician: Caio George M.D. Date of Service: 05/14/25 Procedure(s): CA echo doppler complete Accession Number(s): [id number] cc: Feli Wolf M.D.; Caio George M.D. Patient Name: ESCOBAR NASH MR#: [id number] : 1980 Exam Date: 05/14/2025 Ordering Doctor: CAIO GEORGE ECHOCARDIOGRAM REPORT PROCEDURE: CA ECHO DOPPLER COMPLETE INDICATIONS: CAD, Chest pain COMPARISON: None. DESCRIPTION: COMPLETE ECHOCARDIOGRAM Real-time transthoracic echocardiography with 2D, M-mode, spectral and color flow Doppler performed. QUALITY: Technical quality was good. LEFT VENTRICLE: Normal chamber size. Mild concentric left ventricular hypertrophy. Global left ventricular systolic function is normal. LV EF: Visual estimation of left ventricular ejection fraction is 60-65%. DIASTOLIC: Normal diastolic function. ATRIAL SEPTUM: LEFT ATRIUM: Normal chamber size. RIGHT ATRIUM: Normal chamber size. RIGHT VENTRICLE: Normal chamber size. Normal right ventricular systolic function. TRICUSPID VALVE: Normal mobility and thickness. No stenosis with trivial regurgitation. No evidence of pulmonary hypertension. RVSP 33 mmHg. MITRAL VALVE: Normal mobility and thickness. No evidence of mitral valve stenosis. There is no mitral annular calcification. No mitral regurgitation. AORTIC VALVE: Normal trileaflet appearance. No visible sclerosis. Normal leaflet mobility. No evidence of aortic valve stenosis. No aortic regurgitation. AORTIC ROOT: Normal diameter and appearance, measuring 3.5 cm. The ascending aorta is normal in size measuring 3.1 cm. PULMONIC VALVE: Normal thickness and mobility. No stenosis. Trivial regurgitation. PERICARDIUM: No evidence of pericardial effusion. IVC: Collapses with inspiration. Normal size. PLEURA: CONCLUSION: 1. Mild concentric left ventricular hypertrophy with normal systolic function. LVEF is estimated at 60 to 65%. 2. Normal right ventricular size and systolic function. 3. Normal diastolic function. 4. No significant valvular dysfunction. 5. Normal right-sided pressures. 6. No pericardial effusion. Adult Echocardiography Procedure Report Left Ventricle LVEDD (3.7 - 5.6 cm): 3.67 cm LVESD (2.2 - 4.0 cm): 2.45 cm LVIVS thickness (0.6 - 1.2 cm): 1.06 cm LVPW thickness (0.5 - 1.0 cm): 1.14 cm e': 0.09 m/s E - e': 7.28 LVOT Max Gradient: 2.21 mm[Hg] LVOT Area (cm2): 0.74 m/s Peak Velocity (LVOT): 0.74 m/s Mean Velocity (LVOT): 0.45 m/s LVOT Diameter 2.00 cm Left Ventricular Ejection Fraction: 60-65 % Left Atrium LA Volume Index (2D A2C): 13.20 ml/m2 Left Atrium Systolic Dimension: 2.92 cm Mitral Valve MV E to A Ratio: 0.94 Mitral Valve A-Wave Peak Velocity: 0.69 m/s Mitral Valve E-Wave Peak Velocity: 0.65 m/s Right Ventricle RV Internal Diastolic Dimension: 3.02 cm Aorta AO Root Diam: 3.45 cm Ascending Ao Diam: 3.12 cm Aortic Valve AoV Area (Peak Deepak): 2.60 cm2, 2.60 cm2 AoV Area (VTI): 2.89 cm2, 2.89 cm2 Peak Velocity(Antegrade Flow): 0.89 m/s Peak Gradient(Antegrade Flow): 3.20 mm[Hg] Mean Velocity(Antegrade Flow): 0.57 m/s Mean Gradient(Antegrade Flow): 1.53 mm[Hg] Velocity Time Integral: 13.98 cm Tricuspid Valve Peak Velocity (Regurgitant Flow): 2.75 m/s Pulmonic Valve Mean Gradient: 1.06 mm[Hg], 1.40 mm[Hg], 1.06 mm[Hg], 0.83 mm[Hg] Mean Velocity: 0.47 m/s, 0.56 m/s, 0.50 m/s, 0.43 m/s Peak Velocity: 0.70 m/s Peak Gradient: 2.16 mm[Hg], 2.90 mm[Hg], 1.53 mm[Hg], 1.36 mm[Hg] Right Atrium Right Atrium Systolic Pressure: 18.95 ml, 18.95 ml Dictated by: Kinga Breen M.D. on 05/14/2025 at 13:08 Approved by: Kinga Breen M.D. on 05/14/2025 at 13:13 Dictated By: KINGA BREEN Signed By: 05/14/251313 DD/ 12 TD/TT: Lottery Clerk: JOEY Najera date:02/15/2025 06:11:00 PM Interpretation: Performing Lab: Notes/Report: [facility] , Iron 62.0 50.0-170.0 ug/dL Performing Lab: see note ML - [facility] LB GLYCOHEMOGLOBIN A1C Reviewed date:02/15/2025 06:11:00 PM Interpretation: Performing Lab: Notes/Report: [facility] , Glycohemoglobin A1C 11.9 4.5-6.2 % ADA RECOMMENDED LIMIT 4.0 - 6.0 ADA THERAPEUTIC TARGET < 7.0 ACTION SUGGESTED > 7.0 Estimated Average Glucose 295 Performing Lab: see note ML - [facility] LB IGP,Aptima HPV,Age Gdln Reviewed date:01/11/2025 06:44:39 PM [...] High,A-Abnormal,AA-Critical Abnormal ------ Performed at: 01 =G [facility] [address] [address] Lucy Carbajal MD, IGP, Aptima HPV, rfx 16/18,45 Note . TESTS RESULT FLAG UNITS REF RANGE LAB ------ DIAGNOSIS: 02 NEGATIVE FOR INTRAEPITHELIAL LESION OR MALIGNANCY. Specimen adequacy: 02 Satisfactory for evaluation. Endocervical and/or squamous metaplastic cells (endocervical component) are present. Performed by: 02 Genoveva Rhodes, Organ Grinder ([facility]) . 02 Note: Note 02 [...] Low,>-Panic High,A-Abnormal,AA-Critical Abnormal ------ Performed at: 02 WB [facility] [address] [place] [address] Lucy Carbajal MD, HPV Aptima Negative Negative This nucleic acid amplification test detects fourteen high- risk HPV types (16,18,31,33,35,39,45,51,52 ,56,58,59,66,68) without differentiation. Performed at: =G - [facility] [address] [id number] Insurance Collector: Lucy Carbajal MD, Phone: [phone] Performed at: [facility] [address] [id number] Insurance Collector: Lucy Carbajal MD, Phone: [phone] Performing Lab: see note - [facility] 12 lead Reviewed date:05/13/2025 08:34:21 PM Interpretation: Performing Lab: Notes/Report: Source Facility: [place] [address] [place] [address] Electrocardiograph Report Signed Patient: ESCOBAR NASH MR#: [id number] : 1980 Acct:[id number] Age/Sex: 45 / F ADM Date: 05/12/25 Loc: MS 213- Attending Dr: Caio George M.D. Ordering Physician: Caio George M.D. Date of Service: 05/13/25 Procedure(s): ECG 12 lead Accession Number(s): [id number] cc: [facility] Test Date: 2025-05-13 Pat Name: ESCOBAR NASH Department: Room: [facility] Gender: Female Gis Programmer: : 1980 Requested By: 2802 Order Number: [id number] Reading MD: KINGA BREEN M.D. Measurements Intervals Raymond Rate: 75 P: 59 KS: 168 QRS: 9 QRSD: 83 T: 9 QT: 385 QTc: 433 Interpretive Statements SINUS RHYTHM Normal ECG Compared to ECG 05/12/2025 13:45:15 No significant changes Electronically Signed On 05-13-2025 11:11:16 EDT by KINGA BREEN M.D. Dictated By: KINGA BREEN Signed By: 05/13/25 1111 DD/ 1040 TD/TT: Lottery Clerk: GLYCOHEMOGLOBIN A1C Reviewed date:05/13/2025 08:34:21 PM Interpretation: Performing Lab: Notes/Report: Comment Add to an already drawn sample [facility] , Glycohemoglobin A1C 11.8 4.5-6.2 % ADA RECOMMENDED LIMIT 4.0 - 6.0 ADA THERAPEUTIC TARGET < 7.0 ACTION SUGGESTED > 7.0 Estimated Average Glucose 292 Performing Lab: see note ML - [facility] Reason For Referral Reason Wound clinic Diagnosis 1 Diabetic foot ulcer (250.80) Referral Organization [facility] Medicine Referring Provider First Name Phillip Referring Provider Last Name Luciano Referring Provider Speciality Family Jesse banegas Referred Provider [facility] Referred Provider Specialty Clinic or [facility] practice Referral Priority Routine Medications Medication [...] per day; Duration: 50 days Active [place] 516 31G X 8 MM as directed Active [...] ulcer due to type 2 diabetes mellitus (3919749125127) Type 2 diabetes mellitus with foot ulcer (E11.621) Active confirmed Problem Nasal congestion (37756980) Nasal congestion (R09.81) Active confirmed Problem Chest pain (44758258) Chest pain (R07.9) Active confirmed Problem Shoulder pain (84659919) Shoulder pain (M25.519) Active confirmed Problem Well adult (222347695) Well adult (Z00.00) Active confirmed Problem Shingles (2228718) Shingles (B02.9) Active confirmed Problem Diabetic foot (148752408) Diabetic foot (E11.8) Active confirmed Problem Otitis externa (1083007) Otitis externa (H60.90) Active confirmed Problem Acute myocardial infarction (42630575) Acute MT (I21.3) Active confirmed Problem Chronic ulcer of right heel (45572975171446 102) Chronic ulcer of right heel (L97.419) Active confirmed Problem Acute sinusitis (75619016) Acute non-recurrent sinusitis, unspecified location (J01.90) Active confirmed Problem Diabetes mellitus (03221097) Diabetes mellitus (E11.9) Active confirmed Problem Diabetic foot ulcer (697360047) Diabetic foot ulcer (250.80) Active confirmed Vital Signs Temperature 98.7 degrees Fahrenheit 10/26/2024 Blood pressure diastolic 88 mm Hg 04/12/2025 Height 65 in 04/12/2025 Blood pressure systolic 134 mm Hg 04/12/2025 Weight 174.0 lbs 04/12/2025 BMI 28.95 kg/m2 04/12/2025 Encounters Encounter Location Date Provider Diagnosis [facility] [address] [place] [address] 06/19/2024 Phillip Hoy Acute non-recurrent sinusitis, unspecified location J01.90 and Nasal congestion R09.81 [facility] [address] [place] [address] 07/10/2024 Phillip Hoy Shingles B02.9 and Otitis externa H60.90 [facility] [address] [place] [address] 08/18/2024 Phillip Hoy Acute non-recurrent sinusitis, unspecified location J01.90 ; Nasal congestion R09.81 and Shingles B02.9 [place] [address] [place] [facility] [place] [address] 08/21/2024 Phillip Hoy Diabetic foot ulcer 250.80 [facility] [address] [place] [facility] [place] [address] 08/31/2024 Phillip Hoy Diabetic foot ulcer 250.80 and Diabetic foot E11.8 [place] [address] [place] [place] [address] 09/18/2024 Phillip Hoy Diabetes mellitus E1 1.9 [place] [address] [place] [place] [address] 10/26/2024 Phillip Hoy Acute bronchitis, unspecified organism J20.9 [place] [address] [place] [address] 02/14/2025 Phillip Hoy Well adult Z00.00 [place] [address] [place] [place] [address] 04/12/2025 Phillip Hoy Acute non-recurrent sinusitis, unspecified location J01.90 ; Nasal congestion R09.81 and Type 2 diabetes mellitus with foot ulcer E11.621 [place] [address] [place] [place] [address] 08/25/2024 Phillip Hoy [facility] [address] [place] [facility] [place] [address] 09/01/2024 Phillip Hoy [facility] [address] [place] [facility] [place] [place] [address] 09/11/2024 Phillip Hoy [facility] [address] [place] [facility] [address] 09/19/2024 Phillip Hoy Diabetes mellitus E1 1.9 [place] [address] [place] [place] [address] 10/26/2024 Phillip Hoy [facility] [address] [place] [facility] [address] 01/22/2025 Phillip Hoy [facility] [address] [place] [address] 02/14/2025 Phillip Wolf Well adult Z00.00 an d Diabetes mellitus E11.9 [facility] [address] [place] [address] 02/15/2025 Phillip Wolf [facility] [address] [place] [address] 02/22/2025 Phillip Wolf [facility] [address] [place] [address] 05/14/2025 Phillip Wolf Assessments Encounter Date Diagnosis (ICD Code) Assessment Notes Treatment Notes Treatment Clinical Notes Section Notes 06/19/2024 Acute non-recurrent sinusitis, unspecified location (ICD-10 - J01.90) Rest and drink more liquids, especially water. You may use a humidifier or vaporizer to help keep the drainage moist. Jseo-uai-biehmoc Nasal Saline may help the stuffy and runny nose. Use Ibuprofen and or Tylenol as needed for fever, chills, body aches or pain. Children 5 years old should not be given eekd-ldv-ywsmytz cough and cold medications such as guaifenesin and dextromethorphan. If you're over age 5, you may try cgur-ney-hrvivmp cold medications such as guaifenesin and dextromethorphan, [...] 07/10/2024 Otitis externa (ICD-10 - H60.90) 08/18/2024 Nasal congestion (ICD-10 - R09.81) 08/18/2024 Acute non-recurrent sinusitis, unspecified location (ICD-10 - J01.90) Rest and drink more liquids, especially water. You may use a humidifier or vaporizer to help keep the drainage moist. Fkjl-lgk-eqwyxxu Nasal Saline may help the stuffy and runny nose. Use Ibuprofen and or Tylenol as needed for fever, chills, body aches or pain. Children 5 years old should not be given vpdn-nkf-exppxkq cough and cold medications such as guaifenesin and dextromethorphan. If you're over age 5, you may try lehl-zga-jcnjxms cold medications such as guaifenesin and dextromethorphan, [...] symptoms do not improve within 3-5 days 08/21/2024 Diabetic foot ulcer (ICD9-CM - 250.80) 08/31/2024 Diabetic foot (ICD-10 - E11.8) 08/31/2024 Diabetic foot ulcer (ICD9-CM - 250.80) 09/18/2024 Diabetes mellitus (ICD-10 - E11.9) 10/26/2024 Acute bronchitis, unspecified organism (ICD-10 - J20.9) Rest and drink more liquids, especially water. You may use a humidifier or vaporizer to help keep the drainage moist. Pqal-ret-peqhwyq Nasal Saline may help the stuffy and runny nose. Use Ibuprofen and or Tylenol as needed for fever, chills, body aches or pain. Children 5 years old should not be given howc-ths-pxkuypc cough and cold medications such as guaifenesin and dextromethorphan. If you're over age 5, you may try jxdh-xoh-yyyfrxw cold medications such as guaifenesin and dextromethorphan, [...] vaporizer to help keep the drainage moist. Nxze-zzm-twpmwde Nasal Saline may help the stuffy and runny nose. Use Ibuprofen and or Tylenol as needed for fever, chills, body aches or pain. Children 5 years old should not be given kxtq-xuo-wpamlxa cough and cold medications such as guaifenesin and dextromethorphan. If you're over age 5, you may try jcbl-tbl-umbgixz cold medications such as guaifenesin and dextromethorphan, [...] 02/14/2025 Diabetes mellitus (ICD-10 - E11.9) 04/12/2025 Type 2 diabetes mellitus with foot ulcer (ICD-10 - E11.621) Bumping up to 60 U BID 04/12/2025 Nasal congestion (ICD-10 - R09.81) 08/18/2024 Shingles (ICD-10 - B02.9) 06/19/2024 Nasal congestion (ICD-10 - R09.81) Plan Of Treatment Pending Test Test Name Order Date HEMOGLOBIN A1C (GLYCO) 02/14/2025 IRON, TOTAL 02/14/2025 LIPID PANEL (CHOL/TRIG/HDL/LDL) 02/15/20 25 STOOL OCCULT BLOOD 02/14/2025 THYROID PANEL (T4/TSH/FREE T3) 5 MM screening mammo BI 02/14/2025 CMP (COMP MET H[facility]IARD) w/eGFR CKD-EPI 2024 CBC WITH DIFF 02/14/2025 Next Appt Details Provider Name:Phillip Wolf, 10:30:00 AM, [address] [facility], [place], [address], Insurance Providers Payer Name Payer Address Payer Phone Subscriber Number Group Number Insured Name Patient Relationship to Insured Coverage Start Date Coverage End Date [employer] [place] [employer] [address] [place] [phone] [id number] Escobar Nash Self - patient is the insured 4 Medical (General) History Medical History History ICD Code Diabetes mellitus E11.9 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
--- OUTSIDE RECORDS SUMMARY | 2025-05-15 08:52 | XMS_ITS | Encounter Summary ---
Author Organization [facility] Address [address] [place] [address] Care Team Providers Care Procurement Consultant Name Role Phone Gentry Wolf MD Primary Care Provider Encounter Details Date Type Department Care Team (Late st Contact Info) Description 05/14/2025 Orders Only [facility] [address] [place] [address] Cait Crowell MA Other chest pain (Primary Dx) Social History Tobacco Use Types Packs/Day Years [...] Description 06/11/2025 10:40 AM EST Office Visit [facility] [address] [place] [address] Bruce Chapa MD [address] [place] [phone] Scheduled Orders Name Type Priority Associated Diagnoses Orde r Schedule Lexiscan Stress Myocardial Perfusion Imaging Cardiac Services Routine Other chest pain Expected: 05/14/2025 (Approximate), Expires: 05/14/2027 documented as of this encounter Visit Diagnoses Diagnosis Other chest pain- Primary documented in this encounter Care Teams Procurement Consultant Relationship Specialty Start Date End Date Gentry Wolf MD [address] [facility] [place] [phone] PCP - General 02/04/23 documented as of this encounter
--- OUTSIDE RECORDS SUMMARY | 2025-05-15 08:52 | XMS_ITS | Encounter Summary ---
Author Organization [facility] Address [address] [place] [address] Care Team Providers Care Turner Off Name Role Phone Gentry Wolf MD Primary Care Provider [phone] Encounter Details Date Type Department Care Team (Late st Contact Info) Description 01/15/2025 Results Follow-Up [facility] [place] [facility] [address] [place] [phone] Celeste Kaye LPN [address] [place] [phone] RECURRENT VAGINITIS (HTRX) Social History Tobacco Use [...] EDT Office Visit [facility] [place] [facility] [address] [facility] [facility] [address] Leland Claros DO [address] [facility] [address] [place], [place] [id number] documented as of this encounter Visit Diagnoses Not on filedocumented in this encounter Care Teams Turner Off Relationship Specialty Start Date End Date Gentry Wolf MD [address] [facility] [place] [address] PCP - General Family Medicine 11/16/24 documented as of this encounter
--- OUTSIDE RECORDS SUMMARY | 2025-05-15 08:52 | XMS_ITS | Encounter Summary ---
Author Organization [facility] Address [address] [facility] [place] [address] Care Team Providers Care Floor Polisher Name Role Phone Gentry Wolf MD Primary Care Provider [phone] Encounter Details Date Type Department Care Team (Late Contact Info) Description 01/17/2025 Orders Only [facility] [address] [facility] [place] [address] Daysi Mendoza MA [address] [facility] [place] [address] Social History Tobacco Use Types Packs/Day Years [...] EDT Office Visit [facility] [address] [place] [phone] Leland Claros DO [address] [facility] [place] [address] documented as of this encounter Procedures Procedure Name Priority Date/Time Associated Diagnosis Comments PAP SMEAR Routine 01/08/2025 12:00 AM EDT documented in this encounter Results * Pap Smear (01/08/2025 12:00 AM EDT) Swab Cervical swab / Unknown Basia BLOOM LAB CYTOLOGY ORDERABLES Final Re sult EXTERNAL LAB documented in this encounter Visit Diagnoses Not on filedocumented in this encounter Care Teams Floor Polisher Relationship Specialty Start Date End Date Gentry Wolf MD [address] [facility] [place] [address] PCP - General Family Medicine 11/16/24 documented as of this encounter
--- OUTSIDE RECORDS SUMMARY | 2025-05-15 08:54 | XMS_ITS | CCD ---
Author Organization [facility] Care Team Providers Care Manager Supply Chain Planning Name Role Phone DR GENTRY CARRILLO Consulting [...] Unavailable LORENA, DR EDMOND Primary Care Unavailable ADRIANEN, DR MATTHEW Escobar Consulting Unavailable MERLE ALEXANDRA Consulting Unavailable LUTHER NGUYEN Consulting Unavailable GILL, DR BARNES Consulting Unavailable LORENA, DR EDMOND Primary Care Unavailable GILL, DR BARNES Attending Unavailable GILL, DR BARNES Admitting Unavailable Gentry Carrillo Primary Care Physician [phone] Abhishek Monterroso Consulting Unavaila Ellie Encarnacion Attending Unavailable Ellie OBANDO Admitting Unavailable Abhishek Monterroso Consulting UnavailAbhishek Alonso Consulting Unavaila Pako Briceño Attending Unavailable FELIPA ROGERS Attending Unavailable Gentry Carrillo MD Primary Care Provider [phone] AMY LOVE Attending Unavailable GENTRY CARRILLO Primary Care Unavailable GENTRY CARRILLO Primary Care Unavailable SANCHEZ MANCILLA Attending Unavailable GENTRY CARRILLO Primary Care Unavailable AMISHA NGUYEN Attending Unavailable Gentry Carrillo MD Primary Care Provider [phone] BASIA BRANDT Attending Unavailable Marlow DDS, Yixue Unavailable Unavailable Marlow DDS, Yixue Unavailable Unavailable Marlow DDS, Yixue Unavailable Unavailable Marlow DDS, Yixue Attending Unavailable Gentry Carrillo MD Primary Care Unavailable Marlow DDS, Yixue Unavailable Unavailable Allergies Allergy Classification Reported Allergen(s) Allergy Type Date of Onset Reaction(s) Facility (1 source) Penicillin Drug Allergy 0 [facility] Repository (11 sources) Penicillins; Translations: [penicillins] Drug allergy 9 Rash, Hives, Unknown [facility] Medications Current Medications Medication Drug Class(es) Dates [...] tab(s), Refills(s) 1, [id number], 165, cm, 01/21/23 16:25:00 EDT, Height/Length Dosing, [...] attention, # 100 tab(s), Refills(s) 0, [id number], 165, cm, 01/21/23 16:25:00 EDT, Height/Length Dosing, [...] BID, # 60 tab(s), Refills(s) 1, [facility]: [facility] #[id number], 165, cm, 01/21/23 16:25:00 EDT, Height/Length Dosing, [...] Coronary atherosclerosis; Translations: [Atherosclerotic heart disease of [place] coronary artery without angina pectoris] Onset: 01-23-2023 [...] current use of drug therapy; Translations: [Other long-term (current) drug therapy] Onset: 01-21-2023 Episodic Other [...] 02-19-2022 Episodic Other aftercare (1 source) Other long-term (current) drug therapy; Translations: [OTH [facility] CURRENT DRUG THERAPY] Onset: 02-19-2022 Episodic Other aftercare (1 source) retirement (current) use of oral hypoglycemic drugs; Translations: [[facility] USE ORAL HYPOGLYCEMIC DX] Onset: 02-19-2022 Episodic Other aftercare (1 source) retirement (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; Translations: [[facility] CURRENT USE OF ASPIRIN] Onset: 12-09-2021 Episodic Other aftercare (1 source) 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 Performed at: =[address] [id number] Head Of Quality: Lucy Carbajal MD, Phone: [phone] Performed at: [address] [id number] Head Of Quality: Lucy Carbajal MD, Phone: [phone] IGP, APTIMA HPV, RFX 16/18,45 Note . [facility] Comment on above: TESTS RESULT FLAG UN ITS REF RANGE LAB DIAGNOSIS: 02 NEGATIVE FOR INTRAEPITHELIAL LESION OR MALIGNANCY. Specimen adequacy: 02 Satisfactory for evaluation. Endocervical and/or squamous metaplastic cells (endocervical component) are present. Performed by: 02 Genoveva Rhodes, Warehouse Delivery Driver (ASCP) . 02 Note: Note 02 The [...] <-Panic Low,>-Panic High,A-Abnormal,AA-Critical Abnormal Performed at: [address] [address] Lucy Carbajal MD, BRUSH-SPATULA CERVIX ENDOCERVIX [facility] Healthcare RECURRENT VAGINITIS (HTRX)on 01-11-2025 ATOPOBIUM VAGINAE 15.51 Abnormal [facility] Healthcare ATOPOBIUM VAGINAE Detected Abnormal [facility] [...] Healthcare TET B, TET M 12.593 Abnormal [facility] Healthcare TET B, TET M Detected Abnormal [facility] TRICHOMONAS VAGINALIS 0 [facility] TRICHOMONAS VAGINALIS Not detected N [facility] Healthcare COVID-19, Rapidon 10-04-2024 SARS-CoV-2 (COVID-19) RdRp gene TIM+probe Ql (Resp) Not detected Not Detected [facility] Comment on above: Rapid NAAT: [...] Nucleic Acid Amplification Specimen Description .NASOPHARYNGEAL SWAB [facility] Flu A/B Ag Detectionon 10-04 Flu A Ag Detection Negative Normal [facility] Comment on above: Result Comment: for Influenza A Antigen Performed By: #### F LUABA #### [facility] [address] [place] [address] Head Of Quality: Matthew Driscoll MD Flu B Ag Detection Negative Normal NEG [facility] Comment on above: Result Comment: for Influenza B Antigen. Performed By: #### F LUABA #### [facility] [address] [place] [address] Head Of Quality: Matthew Driscoll MD Rapid influenza A/B antigens on 10-04-2024 FLUAV Ag Ql (Unsp spec) Negative NEGATIVE [facility] Comment on above: for Influenza A Anti gen FLUBV Ag Ql (Unsp spec) Negative NEGATIVE [facility] Comment on above: for Influenza B Anti gen. [facility] [id number] 10-04-2024 SARS-CoV-2 (COVID-19) RNA TIM+probe Ql (Unsp spec) Not detected Normal [facility] Comment on above: Result Comment: Rapid NAAT: [...] Amplification Performed By: #### C OVRB #### [facility] [address] [place] [address] Head Of Quality: Matthew Driscoll MD CBC with Auto Differentialon 08-28-2024 Basophils (Bld) [#/Vol] 0.02 10*3/uL [facility] Basophils/100 WBC (Bld) 0 % 0 - 2 % [facility] Eosinophils (Bld) [#/Vol] 0.09 10*3/uL [facility] Eosinophils/100 WBC (Bld) 1 % 0 - 5 % [facility] Erythrocyte distribution width (RBC) [Ratio] 13.0 % 12.1 - 15.2 % [facility] Hematocrit (Bld) [Volume fraction] 41.7 % 36.0 - 46.0 % [facility] Hemoglobin (Bld) [Mass/Vol] 15.0 g/dL 12.0 - 16.0 g/dL [facility] Immature granulocytes (Bld) [#/Vol] 0.02 10*3/uL [facility] Immature granulocytes/100 WBC (Bld) 0 % 0 - 5 % [facility] Interpretation and review of laboratory results Abnormal [facility] Lymphocytes/100 WBC (Bld) 33 % 15 - 40 % [facility] Lymphocytes/100 WBC (Bld) 3.26 % [facility] MCH (RBC) [Entitic mass] 28.5 pg 26.0 - 34.0 pg [facility] MCHC (RBC) [Mass/Vol] 36.0 g/dL 31.0 - 37.0 g/dL [facility] MCV (RBC) [Entitic vol] 79.3 fL Low 80.0 - 100.0 fL [facility] Monocytes/100 WBC (Bld) 6 % 4 - 8 % [facility] Monocytes/100 WBC (Bld) 0.55 % [facility] Neutrophils/100 WBC (Bld) 60 % 47 - 75 % [facility] Platelet mean volume (Bld) [Entitic vol] 9.9 fL 6.0 - 12.0 fL [facility] Platelets (Bld) [#/Vol] 277 10*3/uL [facility] RBC (Bld) [#/Vol] 5.26 10*6/uL High 4.00 - 5.2 0 m/uL [facility] Segmented neutrophils/100 WBC (Bld) 6.04 % [facility] WBC other (Bld) [#/Vol] 10.0 [facility] CBC with Diffon 08-28-2024 Abs. Basophil 0.02 k/uL Normal 0.00-0.20 [facility] Comment on above: Performed By: #### C P, CDP #### [facility] [address] [place] [address] Head Of Quality: Matthew Driscoll MD Abs.Imm.Granulocyte 0.02 k/uL Normal 0.00-0.30 [facility] Comment on above: Performed By: #### C P, CDP #### [facility] [address] [place] [address] Head Of Quality: Matthew Driscoll MD Abs.Neutrophil (Seg) 6.04 k/uL Normal 2.5-7.0 [facility] Comment on above: Performed By: #### C P, CDP #### [facility] [address] [place] [address] Head Of Quality: Matthew Driscoll MD Basophils/100 WBC (Bld) 0 % Normal 0-2 [facility] Comment on above: Performed By: #### C P, CDP #### [facility] [address] [place] [address] Head Of Quality: Matthew Driscoll MD Eosinophils (Bld) [#/Vol] 0.09 10*3/uL Normal 0.00-0.40 [facility] Comment on above: Performed By: #### C P, CDP #### [facility] [address] [place] [id number] Head Of Quality: Matthew Driscoll MD Eosinophils/100 WBC (Bld) 1 % Normal 0-5 [facility] Comment on above: Performed By: #### C P, CDP #### [facility] [address] [place] [address] Head Of Quality: Matthew Driscoll MD Erythrocyte distribution width (RBC) [Ratio] 13.0 % Normal 12.1-15.2 [facility] Comment on above: Performed By: #### C P, CDP #### [facility] [address] [place] [id number] Head Of Quality: Matthew Driscoll MD Hematocrit (Bld) [Volume fraction] 41.7 % Normal 36.0-46.0 [facility] Comment on above: Performed By: #### C P, CDP #### [facility] [address] [place] [address] Head Of Quality: Matthew Driscoll MD Hemoglobin (Bld) [Mass/Vol] 15.0 g/dL Normal 12.0-16.0 [facility] Comment on above: Performed By: #### C P, CDP #### [facility] [address] [place], [place] [id number] Head Of Quality: Matthew Driscoll MD Immature granulocytes/100 WBC (Bld) 0 % Normal 0-5 [facility] Comment on above: Performed By: #### C P, CDP #### [facility] [address] [place] [address] Head Of Quality: Matthew Driscoll MD Lymphocytes (Bld) [#/Vol] 3.26 10*3/uL Normal 1.00-4.80 [facility] Comment on above: Performed By: #### C P, CDP #### [facility] [address] [place] [address] Head Of Quality: Matthew Driscoll MD Lymphocytes/100 WBC (Bld) 33 % Normal 15-40 [facility] Comment on above: Performed By: #### C P, CDP #### [facility] [address] [place] [address] Head Of Quality: Matthew Driscoll MD MCH (RBC) [Entitic mass] 28.5 pg Normal 26.0-34.0 [facility] Comment on above: Performed By: #### C P, CDP #### [facility] [address] [place] [address] Head Of Quality: Matthew Driscoll MD MCHC (RBC) [Mass/Vol] 36.0 g/dL Normal 31.0-37.0 [facility] Comment on above: Performed By: #### C P, CDP #### [facility] [address] [place] [address] Head Of Quality: Matthew Driscoll MD MCV (RBC) [Entitic vol] 79.3 fL Low 80.0-100.0 [facility] Comment on above: Performed By: #### C P, CDP #### [facility] [address] [place] [phone] Head Of Quality: Matthew Driscoll MD Monocytes (Bld) [#/Vol] 0.55 10*3/uL Normal 0.00-1.00 [facility] Comment on above: Performed By: #### C P, CDP #### [facility] [address] [place], [place] [id number] ([phone] Head Of Quality: Matthew Driscoll MD Monocytes/100 WBC (Bld) 6 % Normal 4-8 [facility] Comment on above: Performed By: #### C P, CDP #### [facility] [address] [place] [address] ([phone] Head Of Quality: Matthew Driscoll MD Neutrophil (Seg) 60 % Normal 47-75 [facility] Comment on above: Performed By: #### C P, CDP #### [facility] [address] [place] [address] Head Of Quality: Matthew Driscoll MD Platelet mean volume (Bld) [Entitic vol] 9.9 fL Normal 6.0-12.0 [facility] Comment on above: Performed By: #### C P, CDP #### [facility] [address] [place], [place] [id number] ([phone] Head Of Quality: Matthew Driscoll MD Platelets (Bld) [#/Vol] 277 10*3/uL Normal 140-450 [facility] Comment on above: Performed By: #### C P, CDP #### [facility] [address] [place] [address] Head Of Quality: Matthew Driscoll MD RBC (Bld) [#/Vol] 5.26 10*6/uL High 4.00-5.20 [facility] Comment on above: Performed By: #### C P, CDP #### [facility] [address] [place], [place] [id number] ([phone] Head Of Quality: Matthew Driscoll MD WBC (Bld) [#/Vol] 10.0 10*3/uL Normal 3.5-11.0 [facility] Comment on above: Performed By: #### C P, CDP #### [facility] [address] [place] [address] Head Of Quality: Matthew Driscoll MD Comp Metabolic Profon 2024 Albumin [Mass/Vol] 3.8 g/dL Normal 3.5-5.2 [facility] Comment on above: Performed By: #### C P, CDP #### [facility] [address] [place] [id number] Head Of Quality: Matthew Driscoll MD ALT [Catalytic activity/Vol] 17 U/L Normal 5-33 [facility] Comment on above: Performed By: #### C P, CDP #### [facility] [address] [place] [address] Head Of Quality: Matthew Driscoll MD Anion gap [Moles/Vol] 16 mmol/L Normal 9-17 [facility] Comment on above: Performed By: #### C P, CDP #### [facility] [address] [place] [address] Head Of Quality: Matthew Driscoll MD AST [Catalytic activity/Vol] 12 U/L Normal <32 [facility] Comment on above: Performed By: #### C P, CDP #### [facility] [address] [place] [address] Head Of Quality: Matthew Driscoll MD Bilirubin [Mass/Vol] 0.6 mg/dL Normal 0.3-1.2 [facility] Comment on above: Performed By: #### C P, CDP #### [facility] [address] [place] [address] Head Of Quality: Matthew Driscoll MD Calcium [Mass/Vol] 9.8 mg/dL Normal 8.6-10.4 [facility] Comment on above: Performed By: #### C P, CDP #### [facility] [address] [place], [place] [address] Head Of Quality: Matthew Driscoll MD Chloride [Moles/Vol] 87 mmol/L Low 98-107 [facility] Comment on above: Performed By: #### C P, CDP #### [facility] [address] [place] [id number] Head Of Quality: Matthew Driscoll MD CO2 [Moles/Vol] 22 mmol/L Normal 20-31 [facility] Comment on above: Performed By: #### C P, CDP #### [facility] [address] [place] [address] Head Of Quality: Matthew Driscoll MD Creatinine [Mass/Vol] 0.6 mg/dL Normal 0.5-0.9 [facility] Comment on above: Performed By: #### C P, CDP #### [facility] [address] [place] [address] Head Of Quality: Matthew Driscoll MD Glucose [Mass/Vol] 579 mg/dL Critically high 70-99 [facility] Comment on above: Performed By: #### C P, CDP #### [facility] [address] [place] [address] Head Of Quality: Matthew Driscoll MD Potassium [Moles/Vol] 4.4 mmol/L Normal 3.7-5.3 [facility] Comment on above: Performed By: #### C P, CDP #### [facility] [address] [place] [address] Head Of Quality: Matthew Driscoll MD Protein [Mass/Vol] 7.5 g/dL Normal 6.4-8.3 [facility] Comment on above: Performed By: #### C P, CDP #### [facility] [address] [place], [place] [id number] Head Of Quality: Matthew Driscoll MD Sodium [Moles/Vol] 125 mmol/L Low 135-144 [facility] Comment on above: Performed By: #### C P, CDP #### [facility] [address] [place], [place] [id number] Head Of Quality: Matthew Driscoll MD Urea nitrogen [Mass/Vol] 21 mg/dL High 6-20 [facility] Comment on above: Performed By: #### C P, CDP #### [facility] [address] [place] [address] Head Of Quality: Matthew Driscoll MD Alkaline Phos 173 U/L High 35-104 [facility] Comment on above: Performed By: #### C P, CDP #### [facility] [address] [place], [place] [id number] Head Of Quality: Matthew Driscoll MD BUN/CRE Ratio 35 High 9-20 [facility] Comment on above: Performed By: #### C P, CDP #### [facility] [address] [place], [place] [id number] Head Of Quality: Matthew Driscoll MD GFR/1.73 sq M.predicted among non-blacks MDRD (S/P/Bld) [Vol rate/Area] mL/min/{1.73_m2} Normal >60 [facility] Comment on above: Result Comment: These results [...] Performed By: #### C P, CDP #### [facility] [address] [place], [place] [id number] Head Of Quality: Matthew Driscoll MD Comprehensive Metabolic Pane katelynn 08-28-2024 ALP [Catalytic activity/Vol] 173 U/L High 35 - 104 U/L [facility] Tana Leonard Ellie - HELEN [facility] Comment on above: These results [...] Interpretation and review of laboratory results Abnormal [facility] Urea nitrogen/Creatinine [Mass ratio] 35 mg/mg High 9 - 20 [facility] Glucose, Whole Bloodon 08-28 Glucose [Mass/Vol] 316 mg/dL High 65 - 99 mg/dL [facility] Interpretation and review of laboratory results Abnormal [facility] Glucose [Mass/Vol] 565 mg/dL Critically high 65 - 99 mg/d L [facility] Interpretation and review of laboratory results Abnormal [facility] Glucose,Whole Bloodon 2024 Glucose [Mass/Vol] 316 mg/dL High 65-99 [facility] Glucose [Mass/Vol] 565 mg/dL Critically high 65-99 [facility] POCT glucoseon 08-28-2024 Glucose [Mass/Vol] 316 mg/dL [facility] Interpretation and review of laboratory results Normal [facility] QC OK? yes [facility] POCT glucoseOrdered By: Shazia Trujillo on 08-28-2024 Glucose [Mass/Vol] 565 mg/dL [facility] Interpretation and review of laboratory results Normal [facility] QC OK? yes [facility] Venous Bld Gas,POCon 08-28- 025 FIO2 21.0 Normal [facility] HCO3 (Bld) [Moles/Vol] 23.5 mmol/L Normal 22.0-29.0 [facility] Oxygen saturation in Blood 95.0 % High 60.0-85.0 [facility] pCO2, Venous 33.2 mm Hg Low 41.0-51.0 [facility] pH,Venous 7.457 High 7.320-7.430 [facility] pO2, Venous 70.8 mm Hg High 30.0-50.0 [facility] Positive Base Excess (calc) 0.4 mmol/L Normal 0.0-3.0 [facility] Venous Blood Gas, POCon 08-03 FIO2 21.0 [facility] HCO3 (Bld) [Moles/Vol] 23.5 mmol/L 22.0 - 29.0 mmol/L [facility] Interpretation and review of laboratory results Abnormal [facility] Oxygen saturation in Blood 95.0 % High 60.0 - 85.0 % [facility] pCO2, Adria 33.2 Low [facility] pH, Adria 7.457 High 7.320 - 7.430 [facility] PO2, Adria 70.8 High [facility] Positive Base Excess, Adria 0.4 mmol/L 0.0 - 3.0 mmol/L [facility] Office Visiton 02-05-2023 Follow-up visit [id number] Escobar Ortega 1980 F Date Provider Department Center 02/05/2023 Theron8-FELIPA ROGERS [facility] Family History Problem Relation Age of Onset Diabetes Father Coronary artery disease Father Kidney disease Father Family Status - Relation Status Age at Father Level of Service:31495 [place] OFFICE/OUTPATIENT [facility] 30-44 MINUTES Normal [facility] Cardiovascular Reporton 01-01 Cardiovascular Report [id number] 30#1.00CD:127 Normal [facility] Consent for PICC lineon 01-01 Consent for PICC line [id number] 30 [id number] 13#1.00CD:127 Normal [facility] Discharge Instructionson Discharge Instructions [id number] #1.00CD:127 Normal [facility] Pre-Certification Formon Pre-Certification Form [id number] 2#1.00CD:127 Normal [facility] BMPon 01-23-2023 Anion gap [Moles/Vol] 12 mmol/L Normal 6-16 [facility] Comment on above: Performed By: #### 2 615016, 8501100, 60141085, [id number], 5875253, 6751523 #### [facility] [address] [place] [address] Calcium [Mass/Vol] 8.2 mg/dL Low 8.9-11.1 [facility] Comment on above: Performed By: #### 2 776483, 1328638, 10266794, [id number], 0915804, 2800697 #### [facility] [address] [place] [address] Chloride [Moles/Vol] 108 mmol/L Normal 101-111 [facility] Comment on above: Performed By: #### 2 794284, 5572630, 74871160, [id number], 3408201, 1585461 #### [facility] [address] [place] [address] CO2 [Moles/Vol] 19 mmol/L Low 21-31 [facility] Comment on above: Performed By: #### 2 756665, 5692501, 56793188, [id number], 6922952, 1703974 #### [facility] [address] [place] [address] Creatinine [Mass/Vol] 0.5 mg/dL Normal 0.5-1.3 [facility] Comment on above: Performed By: #### 2 566248, 6288107, 57782374, 342766988, 5840706, 8827615 #### [facility] [address] [place] [address] Glucose [Mass/Vol] 183 mg/dL Normal 55-199 [facility] Comment on above: Result Comment: If t his glucose result represents a fasting glucose, interpretation should refer to the following reference range: 55-99 mg/dL Performed By: #### 2 501231, 5603565, 70490215, [id number], 6101672, 0341038 #### [facility] [address] [place] [address] Potassium [Moles/Vol] 3.8 mmol/L Normal 3.5-5.3 [facility] Comment on above: Performed By: #### 2 656896, 5963418, 29065731, 582474384, 2993401, 8339208 #### [facility] [address] [place] [address] Sodium [Moles/Vol] 135 mmol/L Normal 135-145 [facility] Comment on above: Performed By: #### 2 626690, 9792798, 36014971, 207261713, 6779893, 1544381 #### [facility] [address] [place] [address] Urea nitrogen [Mass/Vol] 11 mg/dL Normal 5-21 [facility] Comment on above: Performed By: #### 2 807011, 5551987, 71726548, 309235618, 1997923, 6210208 #### [facility] [address] [place] [address] Urea nitrogen/Creatinine [Mass ratio] 22 No Units High 10-20 [facility] Comment on above: Performed By: #### 2 090123, 6426290, 34026471, 881982590, 5917283, 2798901 #### [facility] [address] [place] [address] CBC w/Indiceson 01-23-2023 Erythrocyte distribution width (RBC) [Ratio] 14.2 % Normal 10.9-14.2 [facility] Comment on above: Performed By: #### 2 277991, 3410332, 87695767, 897274338, 8245754, 5225181 #### [facility] [address] [place] [address] Hematocrit (Bld) [Volume fraction] 38.3 % Normal 34.0-46.0 [facility] Comment on above: Performed By: #### 2 759678, 4473171, 80237266, 703800636, 0137296, 6263536 #### [facility] [address] [place] [address] Hemoglobin (Bld) [Mass/Vol] 13.3 g/dL Normal 12.0-16.0 [facility] Comment on above: Performed By: #### 2 982134, 9667008, 58370682, 657459099, 2730284, 2537671 #### [facility] Laboratory [address] [place] [address] MCH (RBC) [Entitic mass] 28.9 pg Normal 27.0-34.0 [facility] Comment on above: Performed By: #### 2 423152, 3346150, 58590337, 090600038, 1519464, 4799529 #### [facility] Laboratory [address] [place] [address] MCHC (RBC) [Mass/Vol] 34.8 g/dL Normal 31.4-36.0 [facility] Comment on above: Performed By: #### 2 936245, 8019160, 18192708, 805984212, 7984754, 5755700 #### [facility] Laboratory [address] [place] [address] MCV (RBC) [Entitic vol] 83.1 fL Normal 80.0-100.0 [facility] Comment on above: Performed By: #### 2 583553, 6685297, 04674872, 449697155, 3516198, 9973315 #### [facility] Laboratory [address] [place] [address] Platelet mean volume (Bld) [Entitic vol] 8.6 fL Normal 6.4-10.8 [facility] Comment on above: Performed By: #### 2 880375, 4892276, 16866672, 057062697, 4173027, 4091082 #### [facility] Laboratory [address] [place] [address] Platelets (Bld) [#/Vol] 237.0 E9/L Normal 150.0-500.0 [facility] Comment on above: Performed By: #### 2 348033, 3798000, 54736540, 214749206, 9842241, 7287258 #### [facility] Laboratory [address] [place] [address] RBC (Bld) [#/Vol] 4.6 E12/L Normal 4.3-5.9 [facility] Comment on above: Performed By: #### 2 537690, 2236370, 10550498, 823754978, 5604175, 2430220 #### [facility] Laboratory [address] [place] [address] WBC corrected for nucl RBC Auto (Bld) [#/Vol] 9.5 E9/L Normal 4.0-11.0 [facility] Comment on above: Performed By: #### 2 832935, 7096689, 12846253, 586580881, 0859823, 9922756 #### [facility] Laboratory [address] [place] [address] CHEMISTRYOrdered By: Lab ROP User on 01-23-2023 Glucose [Mass/Vol] 255 mg/dL High 55 - 99 mg/dL FTM C POC Subsection Comment on above: Result Comment: Marino paulson RN/ POC Device SN [id number] Invalid Interpretation Code [facility] POC Subsection POC User ID [id number] Invalid Interpretation Code [facility] POC Subsection POC Username LESLY APRR Invalid Interpretation Code [facility] POC Subsection Glucose [Mass/Vol] 192 mg/dL High 55 - 99 mg/dL F[facility] C POC Subsection Comment on above: Result Comment: Yari jennifer Meter POC Device SN [id number] Invalid Interpretation Code [facility] POC Subsection POC User ID [id number] Invalid Interpretation Code FT POC Subsection POC [...] 118 mL/min/1.73 m2 Normal >=59mL/min/1. 73 m2 [facility] Chem S Glucose [Mass/Vol] 183 mg/dL Normal 55 - 199 mg/dL FT Remisol Magnesium [Mass/Vol] 1.5 mg/dL Normal 1.3 - 2 .4 mg/dL [facility] Remisol Potassium [Moles/Vol] 3.8 mmol/L Normal 3.5 - 5.3 mmol/L [facility]isol Sodium [Moles/Vol] 135 mmol/L Normal 135 - 145 mmol/L [facility] Remisol Troponin I.cardiac [Mass/Vol] 1304.50 pg/mL Invalid Interpretation Code 10.10 - 27.10 pg/mL [facility] Remisol Comment on above: Result Comment: Crit [...] 01-01 Glucose [Mass/Vol] 255 mg/dL High 55-99 [facility] Comment on above: Result Comment: Marino paulson RN/ Performed By: #### 2 589603, 4982895, 70760787, 892916347, 1190234, 6123457 #### [facility] Laboratory [address] [place] [address] Glucose [Mass/Vol] 192 mg/dL High 55-99 [facility] Comment on above: Result Comment: Yari rodriguez Meter Performed By: #### 2 [id number] ####[facility] [address] [place] [address] Consultation Noteon 01-24-20 Consultation Note Chief Complaint [...] deep vein thrombosis (DVT) prophylaxis (Z79.899: 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 Normal [facility] Comment on above: Result Comment: Elec tronically Signed By: Kriss HAIDER, Abhishek Hagan\.br\Date and Time Signed: 01/22/23 22:12 EDT Discharge Note-Nursingon Discharge Note-Nursing Patient prescribed Brillinta for discharge. Her preferred pharmacy is [facility] which does not have Brillinta in stock until Wednesday. This RN asked patient to switch pharmacy for this medication so she could sisal picker today. Patient refuses to switch pharmacies. She states her sister will not take her to any other pharmacy to pick this up. Per Dr. Lawrence, ok to pull 4 Brillinta to send home with patient to have enough until she can sisal picker the medication from her pharmacy. Normal [facility] HEMATOLOGYOrdered By: Cristin Ibarra on [...] Inpatient Clinical Summaryon 01-23-2023 Inpatient Clinical Summary [address] [address] Clinical Summary Person Information: Name: ESCOBAR ORTEGA Age: 43 Years : 1980 Sex: Female PCP: Gentry Carrillo MD Marital Status: Phone: [phone] Race: White Ethnicity: Non- or Language: Burundian Visit Id: Visit Reason: Chest pain; CHEST PAIN Speciality: Acuity: Enc Type: Observation Med Service: Medical Arrival: 01/21/2023 16:19:22 Discharge: Dispo Type: Admitted as IP to this Hosp Address: [address] [phone] Provider Notes: Diagnosis: 1:NSTEMI (non-ST elevation myocardial [...] Follow up: With: Address: When: Abhishek Monterroso [address] [place] [address] Business (1) Within 2 weeks Comments: Call for followup appointment With: Address: When: Gentry Carrillo [address] [place] [address] [place] [address] Business (1) 01/27/2023 9:30 AM Patient Education Information: CV - Cardiovascular PCI Discharge Instructions (CUSTOM) [facility] Inpatient Patient Summaryon 01-23-2023 Inpatient Patient [...] When: 01/27/2023 09:30 AM EDT Where: [address] [place] [address]- Business (1) Follow Up with Abhishek Monterroso When: Within 2 weeks Comments: Call for followup appointment Where: [address] [place] [address]- Business (1) Medications What How Much When Why Instructions Next Dose New aspirin (aspirin 81 mg Oral EC Tab) 1 Tablets By Mouth Every day Refills: 1 Pickup at [facility] #[id number] 01/24 New atorvastatin (Lipitor 80 mg Tab) 1 Tablets By Mouth Every day Refills: 1 Pickup at [facility] #[id number] 01/24 New metoprolol (Metoprolol tartrate 25 mg Tab) 1 Tablets By Mouth 2 times a day Refills: 1 Pickup at [facility] #[id number] 01/23 9:00pm New nitroglycerin (nitroglycerin 0.4 mg sublingual Tab) 1 Tablets Sublingual Every 5 minutes as needed for Chest pain not to exceed 3 doses/ 15 min--if pain persists, seek medical attention Pickup at [facility] #[id number] New ticagrelor (Brilinta (ticagrelor) 90 mg oral tablet) 1 Tablets By Mouth 2 times a day Chest pain Elevated troponin NSTEMI (non-ST elevation myocardial infarction) Hypertensive urgency Right shoulder pain Refills: 1 Pickup at [facility] #[id number] 01/23 9:00pm Changed insulin glargine (Lantus insulin) [...] times a day 01/23 9:00pm Pharmacy Information [facility] #[id number]: [address] [place], [place] [phone] What How Much When Comments Stop Taking naproxen (naproxen sodium 550 mg Tab) 1 Tablets By Mouth 2 times a day Test Results CBC BMP WBC: 9.5 E9/L (01/23/23 06:23:00) Glucose Lvl: 183 mg/dL (01/23/23 06:23:00) RBC: 4.6 E12/L (01/23/23 06:23:00) BUN: 11 mg/dL (01/23/23 06:23:00) HGB: 13.3 gm/dL (06/24/23 06:23:00) Creatinine: 0.5 mg/ (more content not included)... Normal [facility] Inpatient Patient Summary [address] [address] Patient Discharge Instructions PERSON INFORMATION [...] Follow up: With: Address: When: Abhishek Monterroso [address] [place] [address] Business (1) Within 2 weeks Comments: Call for followup appointment With: Address: When: Gentry Carrillo [address] [place] [address] [place] [address] Business (1) 01/27/2023 9:30 AM [...] day. Comment: MEDICATIO (more content not included)... [facility] Interdisciplinary Note - Lemuel e Manageron 01-23-2023 Interdisciplinary Note - Production Metal Sprayer Pt is awake and alert in bed, [...] boyfriend and her sister will transport at [place]. . PCP verified and insurance information reviewed and DME discussed. Contact information provided and white board updated. [facility] Comment on above: Result Comment: Elec tronically Signed By: Todd CASEY, Jeanie\.brenna\Date and Time Signed: 01/23/23 12:44 EDT Interdisciplinary Note - Navarro rice 01-23-2023 Interdisciplinary Note - Nursing Patient prescribed Brillinta for discharge. [facility], will not have any of this medication until Wednesday. Patient refuses to switch pharmacies at this time to sisal picker enough to last her through the weekend. She states her sister will not take her to any other pharmacy. Per Dr. Lawrence, ok to pull 4 doses of Brillinta 90mg from RX station to send home with patient until she can sisal picker medication on Wednesday. Education provided to patient on importance of taking Brillinta exactly how it is prescribed. Informed patient that if she cannot get the rest of her Brillinta on Wednesday for any reason to contact the real estate developer or hospital supervisor firearms per Dr. Lawrence. Normal [facility] Magnesiumon 01-23-2023 Magnesium [Mass/Vol] 1.5 mg/dL Normal 1.3-2.4 [facility] Comment on above: Performed By: #### 2 618033, 7042755, 80057443, 269479177, 1183051, 7941642 #### [facility] Laboratory [address] [place] [address] Monitor Recordon 01-23-2023 Monitor Record [id number] 0#1.00CD:127 Normal [facility] Monitor Record [id number] 2#1.00CD:127 Normal [facility] Monitor Record [id number] 5#1.00CD:127 Normal [facility] Monitor Record [id number] 7#1.00CD:127 Normal [facility] Operative Reporton 3 Operative Report Indication for [...] patient will additionally be counseled by the Rail Signal Mechanic team and in follow-up. Complications None Technique Following full and informed consent the patient was brought to the Rail Signal Mechanic where sterile prep and drape were administered in usual fashion. Anesthesia was obtained in the right wrist with lidocaine after administration of conscious sedation. A 5/6 slender Terumo sheath was placed in the right radial artery without complication. Nitroglycerin and nicardipine were given via the sheath and heparin was given intravenously. A 5 Malawian JACKE catheter was advanced and selectively engaged in the left main coronary artery and right coronary artery each, where selective injections were performed. A pigtail catheter was placed in the left ventricle where hemodynamic measurements the left ventricle were made and a bolus was given for left ventriculography. A pullback gradient was obtained. A 6 Malawian jl3.5 catheter was advanced and selectively engaged [...] end of the procedure without complication. Normal [facility] Comment on above: Result Comment: [...] She is medically stable for discharge and real estate developer cleared her. We will give for Brilinta from here in order to get her through the weekend and prevent in-stent rethrombosis and potential complication. Nurse will give for medications which will cover patient until Wednesday morning and if any issue patient is to call supervisor firearms or real estate developer to get it filled somewhere else. [facility] Comment on above: Result Comment: Elec [...] Lipitor, lisinopril, Lopressor. Treated with Lovenox. Ordered: [facility] Care/Day Moderate 35 Minutes 16381 2. Coronary artery disease (I25.10: Atherosclerotic heart disease of [place] coronary artery without angina pectoris) As seen on cardiac catheterization. Patient has coronary artery disease with mid left circumflex artery occlusion requiring 1 drug-eluting stent placement on 01/22/2023. Continue on aspirin, Brilinta, Lipitor, lisinopril and Lopressor. Ordered: [facility] Hospital Care/Day Moderate 35 Minutes 88343 3. Chest pain (R07.9: Chest pain, unspecified) Secondary to above. Resolved. Ordered: [facility] Hospital Care/Day Moderate 35 Minutes 13474 4. Elevated troponin (R77.8: Other specified abnormalities of plasma proteins) Secondary to above. Resolved. Ordered: [facility] Hospital Care/Day Moderate 35 Minutes 01986 5. Hypertensive urgency (I16.0: Hypertensive urgency) Resolved. Continue on lisinopril and metoprolol. Ordered: [facility] Hospital Care/Day Moderate 35 Minutes 91227 6. Right shoulder pain (M25.511: Pain in right shoulder) Secondary to above #1. With atypical presentation. Ordered: [facility] Hospital Care/Day Moderate 35 Minutes 99719 7. Leukocytosis (D72.829: Elevated white blood cell [...] deep vein thrombosis (DVT) prophylaxis (Z79.899: Other superintendent container terminal (current) drug therapy) SCDs. Disposition: Home either today or in a.m. pending cardiology final recommendations. I discussed the diagnosis and plan of care with the patient at the bedside. Moderate level of MDM based on addressing above issues. This documentation was transcribed using voice recognition software. Several attempts were made to ensure accuracy. However inadvertent computerized woodworker helper errors may be present. Ellie Obando. Hospitalist. [...] -- 0 (more content not included)... Normal [facility] Comment on above: Result Comment: Elec tronically Signed By: GAGE HAIDER, Bobbyfo\.br\Date and Time Signed: 01/23/23 09:13 EDT Troponinon 01-23-2023 Troponin I.cardiac [Mass/Vol] 1304.50 pg/mL Abnormal 10.10-27.10 [facility] Comment on above: Result Comment: [...] High Sensitivity Troponin I Instructions For Use, [employer], March 2018) Performed By: #### 2 707098, 7623502, 98249582, 682627015, 5041434, 3413520 #### [facility] Laboratory [address] [place] [address] eGFRon 01-23-2023 GFR/1.73 sq M.predicted among non-blacks MDRD (S/P/Bld) [Vol rate/Area] 118 mL/min/1.73 m2 Normal >=59 [facility] Comment on above: Order Comment: Order added by Discern Expert. Result Comment: Calender Wind Up Tender reji kidney disease could be indicated at eGFR's of less than 60 mL/min/1.73m2. Kidney failure is indicated at less than 15 mL/min/1.73m2. Performed By: #### 2 787745, 0848003, 74971529, 059009529, 2654623, 1189600 #### [facility] Laboratory [address] [place] [address] Auto Diffon 01-22-2023 Basophils/100 WBC (Bld) 0.4 % Normal 0.0-2.0 [facility] Comment on above: Order Comment: Order Added by Discern Expert. Performed By: #### 2 570962, 6864895, 31164249, 917113259, 6509704, 4112379 #### [facility] Laboratory [address] [place] [address] Basophils/Leukocytes Auto (Bld) [Pure # fraction] 0.0 E9/L Normal 0.0-0.2 [facility] Comment on above: Order Comment: Order Added by Discern Expert. Performed By: #### 2 981171, 6523732, 42988930, 732580731, 7254985, 0079776 #### [facility] Laboratory [address] [place] [address] Eosinophils/100 WBC (Bld) 0.2 % Normal 0.0-8.0 [facility] Comment on above: Order Comment: Order Added by Discern Expert. Performed By: #### 2 808322, 4037796, 14214609, 179859040, 1182914, 6234918 #### [facility] Laboratory [address] [place] [address] Eosinophils/Leukocyte s Auto (Bld) [Pure # fraction] 0.0 E9/L Normal 0.0-0.5 [facility] Comment on above: Order Comment: Order Added by Discern Expert. Performed By: #### 2 586414, 1959237, 67101019, 516693773, 2287248, 5748727 #### [facility] Laboratory [address] [place] [address] Lymphocytes/100 WBC (Bld) 24.9 % Normal 14.0-50.0 [facility] Comment on above: Order Comment: Order Added by Discern Expert. Performed By: #### 2 863913, 6892782, 11397529, 718506416, 1023690, 7960151 #### [facility] Laboratory [address] [place] [address] Lymphocytes/Leukocyte s Auto (Bld) [Pure # fraction] 2.6 E9/L Normal 1.0-4.0 [facility] Comment on above: Order Comment: Order Added by Discern Expert. Performed By: #### 2 242587, 2059289, 97548972, 174561415, 7869966, 8269104 #### [facility] Laboratory [address] [place] [address] Monocytes/100 WBC (Bld) 4.6 % Normal 4.0-14.0 [facility] Comment on above: Order Comment: Order Added by Discern Expert. Performed By: #### 2 567045, 3704589, 96688429, 022421687, 2390863, 5603462 #### [facility] Laboratory [address] [place] [address] Monocytes/Leukocytes Auto (Bld) [Pure # fraction] 0.5 E9/L Normal 0.2-1.0 [facility] Comment on above: Order Comment: Order Added by Discern Expert. Performed By: #### 2 320429, 1488296, 64948622, 130940853, 3963017, 9852401 #### [facility] Laboratory [address] [place] [address] Neutrophils/100 WBC (Bld) 69.9 % Normal 36.0-75.0 [facility] Comment on above: Order Comment: Order Added by Discern Expert. Performed By: #### 2 235486, 6128593, 98256584, 753720589, 8030088, 2747329 #### [facility] Laboratory [address] [place] [address] Neutrophils/Leukocyte s Auto (Bld) [Pure # fraction] 7.4 E9/L Normal 2.0-7.5 [facility] Comment on above: Order Comment: Order Added by Discern Expert. Performed By: #### 2 534795, 8686520, 35593481, 487059556, 6892825, 0766112 #### [facility] Laboratory [address] [place] [address] BMPon 01-22-2023 Anion gap [Moles/Vol] 5 mmol/L Low 6-16 [facility] Comment on above: Performed By: #### 2 048825, 5566864, 22988279, 837064037, 9485918, 7611519 #### [facility] Laboratory [address] [place] [address] Calcium [Mass/Vol] 8.0 mg/dL Low 8.9-11.1 [facility] Comment on above: Performed By: #### 2 608828, 7999783, 13014951, 957015216, 1967214, 3017721 #### [facility] Laboratory [address] [place] [address] Chloride [Moles/Vol] 107 mmol/L Normal 101-111 [facility] Comment on above: Performed By: #### 2 803946, 5205246, 42662822, 812746993, 1315584, 3521704 #### [facility] Laboratory [address] [place] [address] CO2 [Moles/Vol] 23 mmol/L Normal 21-31 [facility] Comment on above: Performed By: #### 2 731569, 6613280, 45512254, 263709737, 8343479, 9761655 #### [facility] Laboratory [address] [place] [address] Creatinine [Mass/Vol] 0.6 mg/dL Normal 0.5-1.3 [facility] Comment on above: Performed By: #### 2 186875, 1187989, 00518625, 992359722, 4499397, 7063756 #### [facility] Laboratory [address] [place] [address] Glucose [Mass/Vol] 293 mg/dL High 55-199 [facility] Comment on above: Result Comment: If t his glucose result represents a fasting glucose, interpretation should refer to the following reference range: 55-99 mg/dL Performed By: #### 2 655912, 9854630, 16591585, 085800714, 3733459, 3434075 #### [facility] Laboratory [address] [place] [address] Potassium [Moles/Vol] 4.0 mmol/L Normal 3.5-5.3 [facility] Comment on above: Performed By: #### 2 805265, 1860501, 90327499, 660648232, 5660983, 4758617 #### [facility] Laboratory [address] [place] [address] Sodium [Moles/Vol] 131 mmol/L Low 135-145 [facility] Comment on above: Performed By: #### 2 043660, 2357461, 77295244, 945988895, 3362995, 7754690 #### [facility] Laboratory [address] [place] [address] Urea nitrogen [Mass/Vol] 20 mg/dL Normal 5-21 [facility] Comment on above: Performed By: #### 2 942121, 8948520, 22701805, 150602365, 3261862, 3938045 #### [facility] Laboratory [address] [place] [address] Urea nitrogen/Creatinine [Mass ratio] 33 No Units High 10-20 [facility] Comment on above: Performed By: #### 2 416595, 0649954, 61332223, 722240065, 9322140, 5532836 #### [facility] Laboratory [address] [place] [address] CBC w/ Auto Diffon 3 Erythrocyte distribution width (RBC) [Ratio] 14.0 % Normal 10.9-14.2 [facility] Comment on above: Performed By: #### 2 533729, 0455685, 95516607, 968379044, 5615880, 7808652 #### [facility] Laboratory [address] [place] [address] Hematocrit (Bld) [Volume fraction] 35.5 % Normal 34.0-46.0 [facility] Comment on above: Performed By: #### 2 389108, 2948229, 25316580, 539294459, 4778071, 4840946 #### [facility] Laboratory [address] [place] [address] Hemoglobin (Bld) [Mass/Vol] 12.5 g/dL Normal 12.0-16.0 [facility] Comment on above: Performed By: #### 2 927759, 7231321, 90179420, 729270674, 0596051, 6396929 #### [facility] Laboratory [address] [place] [address] MCH (RBC) [Entitic mass] 28.6 pg Normal 27.0-34.0 [facility] Comment on above: Performed By: #### 2 472640, 5420184, 68107371, 370318007, 8360002, 8859237 #### [facility] Laboratory [address] [place], [place] [address] MCHC (RBC) [Mass/Vol] 35.1 g/dL Normal 31.4-36.0 [facility] Comment on above: Performed By: #### 2 675352, 3276554, 07469820, 425862965, 9880037, 6607325 #### [facility] Laboratory [address] [place], [place] [address] MCV (RBC) [Entitic vol] 81.5 fL Normal 80.0-100.0 [facility] Comment on above: Performed By: #### 2 800356, 2088111, 79959142, 457714270, 4692585, 9089895 #### [facility] Laboratory [address] [place] [address] Platelet mean volume (Bld) [Entitic vol] 8.9 fL Normal 6.4-10.8 [facility] Comment on above: Performed By: #### 2 134684, 0266315, 74927117, 137055200, 7882865, 6828457 #### [facility] Laboratory [address] [place] [address] Platelets (Bld) [#/Vol] 246.0 E9/L Normal 150.0-500.0 [facility] Comment on above: Performed By: #### 2 231761, 5973401, 27283149, 203168595, 3187500, 7797339 #### [facility] Laboratory [address] [place] [address] RBC (Bld) [#/Vol] 4.4 E12/L Normal 4.3-5.9 [facility] Comment on above: Performed By: #### 2 191906, 4571108, 71536882, 503212632, 3403541, 0300181 #### [facility] [facility] [address] [place] [address] WBC corrected for nucl RBC Auto (Bld) [#/Vol] 10.6 E9/L Normal 4.0-11.0 [facility] Comment on above: Performed By: #### 2 923533, 2770224, 14299214, [id number], 2197737, 0365076 #### [facility] [address] [place] [address] CHEMISTRYOrdered By: Will PATTERSON User on 01-22-2023 Glucose [Mass/Vol] 378 mg/dL High 55 - 99 mg/dL FT C POC Subsection Comment on above: Result Comment: Marino paulson RN/ POC Device SN [id number] Invalid Interpretation Code [facility] POC Subsection POC User ID [id number] Invalid Interpretation Code [facility] POC Subsection POC Username KOBI SINGH Invalid Interpretation Code [facility] POC Subsection CHEMISTRYOrdered By: Stella Lisa on [...] 293 mg/dL High 55 - 199 mg/dL [facility] Remisol Potassium [Moles/Vol] 4.0 mmol/L Normal 3.5 - 5.3 mmol/L [facility] Remisol Sodium [Moles/Vol] 131 mmol/L Low 135 - 145 mmol/L [facility] Remisol Triglyceride [Mass/Vol] 300 mg/dL High <=149mg/dL [facility] Remisol Urea nitrogen [Mass/Vol] 20 mg/dL Normal 5 - 21 mg/dL [facility] Remisol Urea nitrogen/Creatinine [Mass ratio] 33 mg/mg High 10 - 20 [facility] Remisol CHEMISTRYOrdered By: SYSTEM SYSTEM on 01-22-2023 GFR/1.73 sq M.predicted among non-blacks MDRD (S/P/Bld) [Vol rate/Area] 113 mL/min/1.73 m2 Normal >=59mL/min/1. 73 m2 [facility] Chem S Troponin I.cardiac [Mass/Vol] 445.10 pg/mL Invalid Interpretation Code 10.10 - 27.10 pg/mL [facility] Remisol Comment on above: Result Comment: Crit ical Result verified by previous result\ Critical Result I_hsTnI:[id number] Called to ROSSY MOE at 3N by VERONIQUE REID and read back for confirmation at 01/22/2023 01:58:36 CHEMISTRYOrdered By: Christiano Clay on 01-22-2023 HbA1c (Bld) [Mass fraction] 11.1 % High <=5.9% [facility] ChemAutoSS Capillary Glucose POCon 01-01 Glucose [Mass/Vol] 378 mg/dL High 55-99 [facility] Comment on above: Result Comment: Marino NEWBY Performed By: #### 2 [id number] ####[facility] [address] [place] [address] Glucose [Mass/Vol] 245 mg/dL High 55-99 [facility] Comment on above: Result Comment: Marino NEWBY Performed By: #### 2 638123, 1389625, 92976757, 457046980, 1446340, 6657548 #### [facility] [address] [place] [address] Glucose [Mass/Vol] 268 mg/dL High 55-99 [facility] Comment on above: Result Comment: Marino NEWBY Performed By: #### 2 [id number] ####[facility] [address] [place] [address] Glucose [Mass/Vol] 215 mg/dL High 55-99 [facility] Comment on above: Result Comment: Marino NEWBY Performed By: #### 2 [id number] ####[facility] [address] [place] [address] Glucose [Mass/Vol] 378 mg/dL High 55-99 [facility] Comment on above: Result Comment: Marino NEWBY Performed By: #### 2 557349, 5211833, 09107975, 384374268, 9255987, 0264566 #### [facility] [address] [place] [address] Cardiovascular Reporton 01-01 Cardiovascular Report [id number] 3#2.00CD:127 Normal [facility] HEMATOLOGYOrdered By: SYSTEM SYSTEM on [...] 10.6 E9/L Normal 4.0 - 11.0 E9/L [facility] HemeAutoSS GktT0xnd 01-22-2023 HbA1c (Bld) [Mass fraction] 11.1 % High <=5.9 [facility] Comment on above: Performed By: #### 2 846054, 6414020, 55845521, 418049611, 2729557, 6431615 #### [facility] [address] [place] [address] Interdisciplinary Note - Lemuel e Manageron 01-22-2023 Interdisciplinary Note - Production Metal Sprayer CRM entered the room to discuss dc planning. Contact information provided and whiteboard updated. Pt is getting testing. Pending cardiology. ANt dc today. CRM to follow. Normal [facility] Comment on above: Result Comment: Elec tronically Signed By: Cristin Shane.br\Date and Time Signed: 01/22/23 10:52 EDT Lipid Panelon 01-22-2023 Cholesterol [Mass/Vol] 205 mg/dL High 120-200 [facility] Comment on above: Performed By: #### 2 537188, 3920191, 19232828, 917834371, 9306108, 0139182 #### [facility] [address] [place] [address] Cholesterol in HDL [Mass/Vol] 35 mg/dL Invalid Interpretation Code [facility] Comment on above: Result Comment: HDL > or equal to 60 mg/dL: Low cardiovascular risk HDL < 40 mg/dL : High cardiovascular risk Performed By: #### 2 160705, 7064164, 39142997, 492553863, 0277248, 1678300 #### [facility] [address] [place] [address] Cholesterol in LDL [Mass/Vol] 115 mg/dL Normal <=129 [facility] Comment on above: Performed By: #### 2 623714, 4815092, 50507250, 472052151, 0916959, 0732130 #### [facility] [address] [place] [address] Cholesterol in VLDL [Mass/Vol] 60 mg/dL High 7-40 [facility] Comment on above: Performed By: #### 2 373809, 1673724, 75402479, 577345360, 7742437, 6846302 #### [facility] [address] [place] [address] Triglyceride [Mass/Vol] 300 mg/dL High <=149 [facility] Comment on above: Performed By: #### 2 516000, 8733932, 91781617, 468455658, 5968894, 2683314 #### [facility] [address] [place] [address] Monitor Recordon 01-22-2023 Monitor Record [id number] 6#1.00CD:127 Normal [facility] Monitor Record [id number] 5#1.00CD:127 Normal [facility] Monitor Record [id number] 6#1.00CD:127 [facility] Monitor Record [id number] 5#1.00CD:127 [facility] Pre-Certification Formon Pre-Certification Form [id number] 5#1.00CD:127 [facility] Progress Note-Nurseon 2022 Progress Note-Nurse Report given to JACINTO Burgos, who is taking over patient's care in room 328. Loretta made aware that patient currently down in CV Lab. Patient's belongings taken to room 328. Patient's family member also taken down to room 328. [facility] Progress Note-Nurse This fha underwriter was notified by Dr. Obando at 1303 that patient will go for heart catheterization today. Per Dr. Obando, hold lovenox and make patient NPO. This fha underwriter will do at this time and notify patient of plan of care. [facility] Progress Note-Nurse This fha underwriter entered the patient's room to place [...] her right arm would intermittently hurt. This fha underwriter asked patient if there was anything she could do to help the patient any further, but patient denied any further needs. This fha underwriter will notify Dr. Obando that patient has had previous right shoulder pain when moving boxes back in November. Normal [facility] Progress Note-Nurse This fha underwriter was notified by the person performing the echo that patient was having 10/10 right shoulder pain at 10:08. This fha underwriter entered the patient's room to personally assess the patient. Patient stated she was having 10/10 right shoulder pain, but denied having chest pain. Morphine was given at 10:10. Patient stated at 10:12 right shoulder pain was now 6/10, with no chest pain. This fha underwriter personally spoke with Dr. Obando on the phone, who stated to have an EKG performed after the Echo and that he would order a lidocaine patch. This fha underwriter notified both patient and Rema, with radiology that was in the patient's room. Normal [facility] Progress Note-Nurse Patient's step mother called, Chari, requesting updates. Chari not listed in contacts. This fha underwriter asked patient if it was okay to give Chari updates. Patient stated, yes. This fha underwriter updated Chari on plan of care. Chari had no further questions at this time. Normal [facility] Progress Note-Physicianon Progress Note-Physician Assessment/Plan [...] and oxygen. Cardiology consult pending. Ordered: [facility] Hospital Care/Day Moderate 35 Minutes 55217 2. Elevated troponin (R77.8: Other specified abnormalities of plasma proteins) Elevated troponin?secondary to NSTEMI. Cardiology consult pending. Continue on aspirin, Lipitor, Lovenox. Echocardiogram pending. Ordered: [facility] Hospital Care/Day Moderate 35 Minutes 73168 3. NSTEMI (non-ST elevation myocardial infarction) (I21.4: Non-ST elevation (NSTEMI) myocardial infarction) Acute NSTEMI?present on admission. Cardiology consult pending. Echocardiogram pending. Continue on aspirin, Lipitor, lisinopril, Lovenox. Ordered: [facility] Hospital Care/Day Moderate 35 Minutes 38766 4. Hypertensive urgency (I16.0: Hypertensive urgency) Resolved. Continue lisinopril. Ordered: [facility] Care/Day Moderate 35 Minutes 75061 5. Right shoulder pain (M25.511: Pain in right shoulder) Resolved. Ordered: [facility] Hospital Care/Day Moderate 35 Minutes 29697 6. Leukocytosis (D72.829: Elevated white blood cell [...] deep vein thrombosis (DVT) prophylaxis (Z79.899: Other superintendent container terminal (current) drug therapy) Lovenox. Disposition: Pending echocardiogram and cardiology consult. I discussed the diagnosis and plan of care with the patient at the bedside. Moderate level of MDM based on addressing above issues. This documentation was transcribed using voice recognition software. Several attempts were made to ensure accuracy. However inadvertent computerized woodworker helper errors may be present. Ellie Obando. Hospitalist. [...] 05:07:00) Lymph Auto: 24.9 % (01/22/23 05:07:00) [place] Auto: 4.6 % (01/22/23 05:07:00) Eos Auto: 0.2 % (01/22/23 05:07:00) Basophil Auto: 0.4 % (01/22/23 05:07:00) Neutro Absolute: 7.4 E9/L (01/22/23 05:07:00) Lymph Absolute: 2.6 E9/L (06 (more content not included)... Normal [facility] Comment on above: Result Comment: Elec tronically Signed By: GAGE HAIDER, Ellie\.br\Date and Time Signed: 01/22/23 09:41 EDT Troponin 6 Hr.on 01-22-2023 Troponin I.cardiac [Mass/Vol] 467.70 pg/mL Abnormal 10.10-27.10 [facility] Comment on above: Result Comment: [...] Sensitivity Troponin I Instructions For Use, [place], March 2018) Performed By: #### 2 613628, 5577507, 57836861, 208421126, 4618824, 2411679 #### [facility] [address] [place] [address] Troponin 9 Hr.on 01-22-2023 Troponin I.cardiac [Mass/Vol] 445.10 pg/mL Abnormal 10.10-27.10 [facility] Comment on above: Result Comment: [...] Ruben, March 2018) Performed By: #### 1 [id number] #### [facility] [address] [place] [address] XR Chest Single Viewon 01-22 XR Chest [...] mGy = na DAP = na Normal [facility] eGFRon 01-22-2023 GFR/1.73 sq M.predicted among non-blacks MDRD (S/P/Bld) [Vol rate/Area] 113 mL/min/1.73 m2 Normal >=59 [facility] Comment on above: Order Comment: Order added by Discern Expert. Result Comment: Calender Wind Up Tender reji kidney disease could be indicated at eGFR's of less than 60 mL/min/1.73m2. Kidney failure is indicated at less than 15 mL/min/1.73m2. Performed By: #### 2 187004, 1000170, 62290721, 152216822, 9429587, 6876559 #### [facility] [address] [place] [address] Auto Diffon 01-21-2023 Basophils/100 WBC (Bld) 0.3 % Normal 0.0-2.0 [facility] Comment on above: Order Comment: Order Added by Discern Expert. Performed By: #### 2 258778, 8424037, 05592159, 011675602, 8388221, 3065318 #### [facility] [address] [place] [address] Basophils/Leukocytes Auto (Bld) [Pure # fraction] 0.0 E9/L Normal 0.0-0.2 [facility] Comment on above: Order Comment: Order Added by Discern Expert. Performed By: #### 2 969870, 3487841, 10010784, 284398030, 7597864, 0722106 #### [facility] [address] [place] [address] Eosinophils/100 WBC (Bld) 0.1 % Normal 0.0-8.0 [facility] Comment on above: Order Comment: Order Added by Discern Expert. Performed By: #### 2 277858, 4791216, 07886441, 017878699, 8942851, 2387108 #### [facility] [address] [place] [address] Eosinophils/Leukocyte s Auto (Bld) [Pure # fraction] 0.0 E9/L Normal 0.0-0.5 [facility] Comment on above: Order Comment: Order Added by Discern Expert. Performed By: #### 2 668699, 3926433, 73468315, 142859913, 2928154, 4053423 #### [facility] [address] [place] [address] Lymphocytes/100 WBC (Bld) 8.6 % Low 14.0-50.0 [facility] Comment on above: Order Comment: Order Added by Discern Expert. Performed By: #### 2 668929, 4530295, 67157183, 215203631, 9840330, 7826913 #### [facility] [address] [place] [address] Lymphocytes/Leukocyte s Auto (Bld) [Pure # fraction] 1.2 E9/L Normal 1.0-4.0 [facility] Comment on above: Order Comment: Order Added by Discern Expert. Performed By: #### 2 369226, 4591426, 93274354, 946211213, 5642109, 1531993 #### [facility] [address] [place] [address] Monocytes/100 WBC (Bld) 4.8 % Normal 4.0-14.0 [facility] Comment on above: Order Comment: Order Added by Discern Expert. Performed By: #### 2 622025, 2685315, 08016953, 116294931, 5488899, 9101512 #### [facility] [address] [place] [address] Monocytes/Leukocytes Auto (Bld) [Pure # fraction] 0.7 E9/L Normal 0.2-1.0 [facility] Comment on above: Order Comment: Order Added by Discern Expert. Performed By: #### 2 951572, 5468582, 26838003, 612674482, 7800153, 0355949 #### [facility] [address] [place] [address] Neutrophils/100 WBC (Bld) 86.2 % High 36.0-75.0 [facility] Comment on above: Order Comment: Order Added by Discern Expert. Performed By: #### 2 619586, 3421422, 30279301, 584661359, 7571816, 8743702 #### [facility] [address] [place] [address] Neutrophils/Leukocyte s Auto (Bld) [Pure # fraction] 12.3 E9/L High 2.0-7.5 [facility] Comment on above: Order Comment: Order Added by Discern Expert. Performed By: #### 2 109493, 0444769, 20884866, 200514307, 6889303, 4564819 #### [facility] [address] [place] [address] BMPon 01-21-2023 Anion gap [Moles/Vol] 14 mmol/L Normal 6-16 [facility] Comment on above: Performed By: #### 2 469080, 9830258, 95868758, 060858027, 1868993, 9556983 #### [facility] [address] [place] [address] Calcium [Mass/Vol] 9.0 mg/dL Normal 8.9-11.1 [facility] Comment on above: Performed By: #### 2 346868, 3246323, 75926232, 779512930, 7484075, 6104772 #### [facility] [address] [place] [address] Chloride [Moles/Vol] 101 mmol/L Normal 101-111 [facility] Comment on above: Performed By: #### 2 116997, 3729121, 49775545, 460959344, 4056922, 0953061 #### [facility] [address] [place] [address] CO2 [Moles/Vol] 18 mmol/L Low 21-31 [facility] Comment on above: Performed By: #### 2 078768, 0719457, 04643338, 742214943, 0734875, 4797511 #### [facility] [address] [place] [address] Creatinine [Mass/Vol] 0.7 mg/dL Normal 0.5-1.3 [facility] Comment on above: Performed By: #### 2 492883, 4426490, 64194660, 464075256, 3787209, 0242909 #### [facility] [address] [place] [address] Glucose [Mass/Vol] 491 mg/dL Abnormal 55-199 [facility] Comment on above: Result Comment: Crit ical Result verified by repeat analysis\Critical Result [id number] MARTIN AT by CIARA HOWARD And Read Back For Confirmation at: 01/21/2023 17:05:30 If this glucose result represents a fasting glucose, interpretation should refer to the following reference range: 55-99 mg/dL Performed By: #### 2 892215, 4382072, 45792113, 450241525, 7229844, 1084565 #### [facility] [address] [place] [address] Potassium [Moles/Vol] 4.0 mmol/L Normal 3.5-5.3 [facility] Comment on above: Performed By: #### 2 896822, 7621926, 67100033, 203744141, 9517002, 2405639 #### [facility] [address] [place] [address] Sodium [Moles/Vol] 129 mmol/L Low 135-145 [facility] Comment on above: Performed By: #### 2 962223, 0136859, 17888044, 504683277, 2336645, 1415690 #### [facility] [address] [place] [address] Urea nitrogen [Mass/Vol] 23 mg/dL High 5-21 [facility] Comment on above: Performed By: #### 2 709855, 1154650, 92141010, 564388582, 8592435, 7059970 #### [facility] [address] [place] [address] Urea nitrogen/Creatinine [Mass ratio] 33 No Units High 10-20 [facility] Comment on above: Performed By: #### 2 152107, 2651912, 88975810, 630969438, 0746429, 9609943 #### [facility] [address] [place] [address] BOHBon 01-21-2023 Beta hydroxybutyrate [Moles/Vol] 0.86 mmol/L High 0.02-0.27 [facility] Comment on above: Performed By: #### 2 426030, 4889795, 86712034, 350902877, 4141349, 5308756 #### [facility] [address] [place] [address] CBC w/ Auto Diffon Erythrocyte distribution width (RBC) [Ratio] 14.2 % Normal 10.9-14.2 [facility] Comment on above: Performed By: #### 2 178647, 3277633, 84075992, 005786720, 4511408, 4693582 #### [facility] [address] [place] [address] Hematocrit (Bld) [Volume fraction] 41.9 % Normal 34.0-46.0 [facility] Comment on above: Performed By: #### 2 951487, 0966624, 47389093, 823088119, 2271696, 5260144 #### [facility] [address] [place] [address] Hemoglobin (Bld) [Mass/Vol] 14.2 g/dL Normal 12.0-16.0 [facility] Comment on above: Performed By: #### 2 044410, 6452428, 23670825, 384862097, 9605108, 2469380 #### [facility] [address] [place], [place] [address] MCH (RBC) [Entitic mass] 28.0 pg Normal 27.0-34.0 [facility] Comment on above: Performed By: #### 2 875546, 7997322, 52835232, 455766439, 9837838, 4204273 #### [facility] [address] [place], [place] [address] MCHC (RBC) [Mass/Vol] 33.9 g/dL Normal 31.4-36.0 [facility] Comment on above: Performed By: #### 2 864190, 1533045, 31599552, 451926756, 6170860, 5851575 #### [facility] [address] [place] [address] MCV (RBC) [Entitic vol] 82.6 fL Normal 80.0-100.0 [facility] Comment on above: Performed By: #### 2 588603, 8091034, 48438148, 874188556, 2992564, 4948888 #### [facility] [address] [place] [address] Platelet mean volume (Bld) [Entitic vol] 8.8 fL Normal 6.4-10.8 [facility] Comment on above: Performed By: #### 2 107153, 1398025, 39874086, 361744390, 8872824, 1479818 #### [facility] [address] [place] [address] Platelets (Bld) [#/Vol] 240.0 E9/L Normal 150.0-500.0 [facility] Comment on above: Performed By: #### 2 076617, 8923961, 50075905, 146985370, 6472147, 9375696 #### [facility] [address] [address] RBC (Bld) [#/Vol] 5.1 E12/L Normal 4.3-5.9 [facility] Comment on above: Performed By: #### 2 703255, 2357502, 79764831, 032862085, 7655251, 4411956 #### [facility] [address] [place] [address] WBC corrected for nucl RBC Auto (Bld) [#/Vol] 14.2 E9/L High 4.0-11.0 [facility] Comment on above: Performed By: #### 2 672986, 0697369, 23375646, 199740519, 2121841, 7322546 #### [facility] [address] [place], [place] [address] CHEMISTRYOrdered By: SYSTEM SYSTEM on 01-21-2023 Troponin [...] mmol/L Normal 101 - 1 11 mmol/L [facility] Remisol CO2 [Moles/Vol] 18 mmol/L Low 21 - 31 mmol/L [facility] Remisol Creatinine [Mass/Vol] 0.7 mg/dL Normal 0.5 - 1.3 mg/dL [facility] Remisol GFR/1.73 sq M.predicted among non-blacks MDRD (S/P/Bld) [Vol rate/Area] 109 mL/min/1.73 m2 Normal >=59mL/min/1. 73 m2 [facility] Chem S Glucose [Mass/Vol] 491 mg/dL Invalid Interpretation Code 55 - 199 mg/dL [facility] Comment on above: Result Comment: Crit ical Result verified by repeat analysis\Critical Result [id number] MARTIN AT ER by CIARA HOWARD And Read Back For Confirmation at: 01/21/2023 17:05:30 Potassium [Moles/Vol] 4.0 mmol/L Normal 3.5 - 5.3 mmol/L [facility] Remisol Sodium [Moles/Vol] 129 mmol/L Low 135 - 145 mmol/L [facility] Remisol Urea nitrogen [Mass/Vol] 23 mg/dL High 5 - 21 mg/dL [facility] Remisol Urea nitrogen/Creatinine [Mass ratio] 33 mg/mg High 10 - 20 [facility] Remisol Consent for Treatmenton 01-01 Consent for Treatment [id number] 98#1.00CD:127 Normal [facility] ED Clinical Summaryon 2022 ED Clinical Summary [place] [id number] ED Clinical Summary Person Information Name: ESCOBAR ORTEGA [place] Age: 43 Years : 1980 Sex: Female Language: Burundian PCP: Gentry Carrillo MD Marital Status: Phone: [phone] Visit Id: Visit Reason: Chest pain; CHEST PAIN Speciality: Acuity: 3 Enc Type: Observation Med Service: Medical Arrival: 01/21/2023 16:19:22 Discharge: LOS: 000 03:20 Checkin: 01/21/2023 16:19:22 Checkout: 01/21/2023 19:39:40 Dispo Type: Admitted as IP to this [facility] EVENTS: Event Name Event Status [...] 01/21/2023 19:13:12 ADDRESS: [phone] PHYS DOC NOTES: MEDICAL INFORMATION: Prescriptions Given: Medications to Continue with No Changes Other Medications acetaminophen-hydroc odone (Vicodin 500mg-5mg Tab) 1 Tablets By Mouth every 4 hours as needed for pain. Refills: 0. PATIENT EDUCATION INFORMATION: Instructions: Follow up: With: Address: When: Gentry Carrillo [facility], [place] [address] Business (1) In 3 days DIAGNOSIS: 1:Chest pain; 2:Elevated troponin; 3:Hypertensive urgency; 4:Right shoulder pain; 5:Leukocytosis; 6:Hyperglycemia; 7:Hyponatremia; 8:Metabolic acidosis; 9:HTN (hypertension); 10:Diabetes mellitus; 11:Obese; 12:On deep vein thrombosis (DVT) prophylaxis Normal [facility] ED Note-Physicianon 01-22-20 ED Note-Physician Basic Information Time Seen: Daisy Campos M.D. 01/21/2023 16:49 Chief Complaint pt states just seen for arm pain, given rx steroid. 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 She states she was seen at [facility] yesterday and given steroids. The patient [...] and Complexity of Problems Differential Diagnosis: [] [facility] Data External documents reviewed: [] My [...] (primary) hypert (more content not included)... Normal [facility] Comment on above: Result Comment: Elec tronically Signed By: Andres Mejia, Daisy Blari\.br\Date and Time Signed: 01/21/23 19:01 EDT ED Patient Education Noteon 01-21-2023 ED Patient Education Note Normal [facility] ED Patient Summaryon 023 ED Patient Summary [address] [address] Patient Discharge Instructions Person Information Name: ESCOBAR ORTEGA Age: 43 Years Arrival Date: 01/21/2023 16:19:22 Discharge Diagnosis: 1:Chest pain; 2:Elevated troponin; 3:Hypertensive urgency; 4:Right shoulder pain; 5:Leukocytosis; 6:Hyperglycemia; 7:Hyponatremia; 8:Metabolic acidosis; 9:HTN (hypertension); 10:Diabetes mellitus; 11:Obese; 12:On deep vein thrombosis (DVT) prophylaxis Primary Care Physician: Gentry Carrillo MD Provider Information Primary Provider: Daisy Campos M.D. Advanced Almond Blancher:None The exam and treatment you received in the Emergency Department were for an urgent problem and are not intended as complete care. It is important that you follow up with a doctor, nurse practitioner, or physician?s aquatics assistant department head for ongoing care. If your symptoms become worse or you do not improve as expected and you are unable to reach your usual health care provider, you should return to the Emergency Department. We are available 24 hours a day. ESCOBAR ORTEGA has been given the following list of patient education materials, prescriptions and follow-up instructions: Follow-up Instructions: With: Address: When: Gentry Carrillo [address] [place] [address], [facility] [place] [address] Business (1) In 3 days In the event that this physician does not participate in your insurance network, please consult with your insurance company to find a nearby participating provider. Patient Education Materials: A MESSAGE TO ALL PATIENTS REGARDING OPIOIDS PRESCRIPTION OPIOIDS: WHAT YOU NEED TO KNOW Prescription opioids can be used to help relieve zdlnbeco-qb-skwwxf pain and are often prescribed following a [...] and overdo (more content not included)... Normal [facility] HEMATOLOGYOrdered By: SYSTEM SYSTEM on [...] 41.9 % Normal 34.0 - 46.0 % [facility] HemeAutoSS Hemoglobin (Bld) [Mass/Vol] 14.2 g/dL Normal 12.0 - 16.0 gm/dL FT HemeAutoSS MCH (RBC) [Entitic mass] 28.0 pg Normal 27.0 - 34.0 pg [facility] HemeAutoSS MCHC (RBC) [Mass/Vol] 33.9 g/dL Normal 31.4 - 36.0 gm/dL FT HemeAutoSS MCV (RBC) [Entitic vol] 82.6 fL Normal 80.0 - 100.0 fL FT HemeAutoSS Platelet mean volume (Bld) [Entitic vol] 8.8 fL Normal 6.4 - 10.8 fL [facility] HemeAutoSS Platelets (Bld) [#/Vol] 240.0 E9/L Normal 150.0 - 500.0 E9/L [facility] HemeAutoSS RBC (Bld) [#/Vol] 5.1 E12/L Normal 4.3 - 5.9 E12/L [facility] HemeAutoSS WBC corrected for nucl RBC Auto (Bld) [#/Vol] 14.2 E9/L High 4.0 - 11.0 E9/L [facility] HemeAutoSS Monitor Recordon 01-21-2023 Monitor Record [id number] 8#1.00CD:127 Normal [facility] Monitor Record [id number] 5#1.00CD:127 Normal [facility] Troponin 0 Hr.on 01-21-2023 Troponin I.cardiac [Mass/Vol] 201.10 pg/mL Abnormal 10.10-27.10 [facility] Comment on above: Result Comment: [...] conjunction with clinical conditions of myocardial infarction. (The Naked Song High Sensitivity Troponin I Instructions For Use, [employer], March 2018) Performed By: #### 2 [id number], [id number], [id number], [id number], [id number], [id number] #### [facility] Laboratory [address] [place] [address] Troponin 3 Hr.on 01-21-2023 Troponin I.cardiac [Mass/Vol] 258.00 pg/mL Abnormal 10.10-27.10 [facility] Comment on above: Order Comment: pt no t yet in room from er as of 1924 [id number] 01/21/2023 19:37:18 EDT Result Comment: Crit ical [...] conjunction with clinical conditions of myocardial infarction. (The Naked Song High Sensitivity Troponin I Instructions For Use, [employer], March 2018) Performed By: #### 1 [id number] #### [facility] [address] [place] [address] UA With Cult Reflexon 2022 Bilirubin Ql (U) Negative Normal Negative [facility] Comment on above: Performed By: #### 1 [id number] ####[facility] [address] [place] [address] Clarity (U) CLEAR Normal Clear [facility] Comment on above: Performed By: #### 1 [id number] ####[facility] [address] [place] [address] Color (U) STRAW Abnormal Yellow [facility] Comment on above: Performed By: #### 1 [id number] ####[facility] [address] [place] [address] Epithelial cells.squamous LM.HPF (Urine sed) [#/Area] 0-2 Normal 0-2 [facility] Comment on above: Performed By: #### 1 [id number] ####[address] [address] Glucose Test strip (U) [Mass/Vol] 3+ Abnormal Negative [facility] Comment on above: Performed By: #### 1 [id number] ####[address] [address] Hemoglobin Ql (U) Negative Normal Negative [facility] Comment on above: Performed By: #### 1 [id number] ####[address] [address] Ketones (U) [Mass/Vol] 1+ Abnormal Negative [facility] Comment on above: Performed By: #### 1 [id number] ####[address] [address] [place].plasma/Lithiu m.RBC (Bld) [Mass ratio] 0-3 Normal 0-3 [facility] Comment on above: Performed By: #### 1 [id number] ####[address] [address] Nitrite Ql (U) Negative Normal Negative [facility] Comment on above: Performed By: #### 1 [id number] ####[address] [address] pH (U) 6.0 [pH] Invalid Interpretation Code 5.0-9.0 [facility] Comment on above: Performed By: #### 1 [id number] ####[address] [address] Protein (U) [Mass/Vol] Negative Normal Negative [facility] Comment on above: Performed By: #### 1 [id number] ####[address] [address] Specific gravity (U) [Rel density] 1.015 Invalid Interpretation Code 1.005-1.030 [facility] Comment on above: Performed By: #### 1 [id number] ####[facility] [address] [place] [address] Type of Urine collection method Clean Catch Normal [facility] Comment on above: Performed By: #### 1 [id number] ####[facility] [address] [place] [address] Urobilinogen Qn (U) 0.2 {Ankit'U}/dL Normal 0.0-1.0 [facility] Comment on above: Performed By: #### 1 [id number] ####[facility] [address] [place] [address] WBC Auto Ql (U) Negative Normal Negative [facility] Comment on above: Performed By: #### 1 [id number] ####[facility] [address] [place] [address] WBC LM.HPF (Urine sed) [#/Area] 0-5 Normal 0-5 [facility] Comment on above: Performed By: #### 1 [id number] ####[facility] [address] [place] [address] URINALYSISOrdered By: Rogelio Tiwari on 01-21-2023 Bilirubin [...] Interpretation Code Negative [facility] UA Auto SS [place].plasma/Lithiu m.RBC (Bld) [Mass ratio] 0-3 /HPF Normal [...] FT UA Auto SS Urobilinogen Qn (U) 0.4361675 {Ankit'U}/dL Normal 0.0 - 1.0 EU/dL [facility] UA Auto SS WBC Auto Ql (U) Negative (01/21/23 5:53 PM) Normal Negative [facility] UA Auto SS WBC LM.HPF (Urine sed) [#/Area] 0-5 /HPF Normal 0-5/HPF [facility] UA Auto SS eGFRon 01-21-2023 GFR/1.73 sq M.predicted among non-blacks MDRD (S/P/Bld) [Vol rate/Area] 109 mL/min/1.73 m2 Normal >=59 [facility] Comment on above: Order Comment: Order Added by Discern Expert. Result Comment: Calender Wind Up Tender reji kidney disease could be indicated at eGFR's of less than 60 mL/min/1.73m2. Kidney failure is indicated at less than 15 mL/min/1.73m2. Performed By: #### 2 [id number], [id number], [id number], [id number], [id number], [id number] #### [facility] [address] [place] [address] Consent for Treatmenton 11-30 Consent for Treatment [id number] #1.00CD:127 Normal [facility] Discharge Instructionson Discharge Instructions [id number] 1#1.00CD:127 Normal [facility] ED Clinical Summaryon 2022 ED Clinical Summary [address] [address] ED Clinical Summary Person Information Name: ESCOBAR ORTEGA [place] Age: 42 Years : 1980 Sex: Female Language: Burundian PCP: Gentry Carrillo MD Marital Status: Phone: [phone] Visit Id: Visit Reason: Foot pain-swelling; RIGHT [...] 12/12/2022 08:15:04 12/12/2022 08:15:04 12/12/2022 08:15:04 ADDRESS: [facility] [address] [phone] PHYS DOC NOTES: MEDICAL INFORMATION: Prescriptions Given: Medications to Continue with No Changes Other Medications acetaminophen-hydroc odone (Vicodin 500mg-5mg Tab) 1 Tablets By Mouth every 4 hours as needed for pain. Refills: 0. PATIENT EDUCATION INFORMATION: Instructions: Foot Contusion Follow up: With: Address: When: Nelson HENSLEY [facility], [facility], [address] [place] [address], [place] [address] 7 [employer]ull (1) In 3 days 12/15/2022 Comments: Call the office of the compliance engineer products on Wednesday and arrange for evaluation of the toe. With: Address: When: Gentry Carrillo [facility], [place] [place] [address] Business (1) In 3 days [...] from the toe. DIAGNOSIS: Toe contusion Normal [facility] ED Note-Physicianon 12-13-19 ED Note-Physician [...] Nelson Meade In 3 days 12/15/2022 EDT [facility] [address] [facility] [place] [address] 2 Business (1) Additional Instructions: Call the office of the compliance engineer products on Wednesday and arrange for evaluation of the toe. Gentry Carrillo In 3 days 12/15/2022 EDT [address] [facility] [place] [address]- Business (1) Additional Instructions: Call the office [...] active inp (more content not included)... Normal [facility] Comment on above: Result Comment: [...] may be recommended to support your foot. Ryxy-hzz-whbixon anti-inflammatory medicines may also be recommended for [...] or lying down. General instructions ? Take tsja-psa-ntslqmy and prescription medicines only as told by [...] Reviewed: 10/22/2021 Elsevier Patient Education ? 2022 [employer] Normal [facility] ED Patient Summaryon 023 ED Patient Summary [address] [address] Patient Discharge Instructions Person Information Name: ESCOBAR ORTEGA Age: 42 Years Arrival Date: 12/12/2022 07:19:23 Discharge Diagnosis: Toe contusion Primary Care Physician: Gentry Carrillo MD Provider Information Primary Provider: Pako Metzger DO Advanced Almond Blancher:None The exam and treatment you received in the Emergency Department were for an urgent problem and are not intended as complete care. It is important that you follow up with a doctor, nurse practitioner, or physician?s aquatics assistant department head for ongoing care. If your symptoms become [...] Instructions: With: Address: When: Nelson HENSLEY - [facility], [facility], [address] [place] [address], [place], [place] [address] 1 Business (1) In 3 days 12/15/2022 Comments: Call the office of the compliance engineer products on Wednesday and arrange for evaluation of the toe. With: Address: When: Gentry Carrillo [address] [facility], [facility] [place] [address] Business (1) In 3 days [...] opioids can be used to help relieve wdscxlsm-oy-yqjnfb pain and are often prescribed following a [...] psychological, goal-directed (more content not included)... Normal [facility] XR Toe(s) Min 2 Views [...] mGy = na DAP = na Normal [facility] PAP ACOG PANEL 2: 30 to 65on 06-22-2022 . . Normal [facility] Comment on above: Result Comment: Perf ormed at: WB Performed By: #### L BASIA DRIVER, CMP #### [facility] [address] [place] [address] Dr. Neisha Araiza Age Gdln ACOG Testing 30-65 Normal [facility] Comment on above: Performed By: #### L BASIA DRIVER, CMP #### [facility] [address] [address] [address] Neisha Araiza DIAGNOSIS: Comment [facility] Comment on above: Result Comment: NEGA TIVE FOR INTRAEPITHELIAL LESION OR MALIGNANCY. Performed at: WB Performed By: #### L NEISHA BASIA, CMP #### [facility] [address] [place] [address] Dr. Neisha Araiza HPV Aptima Negative Normal Negative [facility] Comment on above: Result Comment: This nucleic acid amplification test detects fourteen high-risk HPV types (16,18,31,33,35,39,45,51,52,56,58,59,66,68) without differentiation. Performed at: =G Performed By: #### L IPA, BASIA, CMP #### [facility] [address] [place] [address] Dr. Neisha Araiza HPV Genotype Reflex Comment Normal [facility] Comment on above: Result Comment: Crit eria not met, HPV Genotype not performed. Performed at: WB Performed By: #### L NEISHA BASIA, CMP #### [facility] [address] [place] [address] Dr. Neisha Araiza Methodology: Comment Normal [facility] Comment on above: Result Comment: This liquid based ThinPrep(R) pap test was screened with the use of an image guided system. Performed at: WB Performed By: #### L BASIA DRIVER, CMP #### [facility] [address] [place] [address] Dr. Neisha Araiza Note: Comment Normal [facility] Comment on above: Result Comment: [...] By: #### L NEISHA BASIA, CMP #### [facility] [address] [place] [address] Dr. Neisha Araiza Performed by: Comment Normal [facility] Comment on above: Result Comment: Tisha Sanders, Physical Science Aide (ASCP) Performed at: WB Performed By: #### L IPA BASIA, CMP #### [facility] [address] [place] [address] Dr. Neisha Araiza Specimen adequacy: Comment Normal [facility] Comment on above: Result Comment: Sati sfactory for evaluation. Endocervical and/or squamous metaplastic cells (endocervical component) are present. Performed at: WB Performed By: #### L BASIA DRIVER, CMP #### [facility] [address] [address] [address] Neisha Araiza Covid-19 PCR (CVDTBH)on 04-03 SARS-CoV-2 (COVID-19) RNA TIM+probe Ql (Unsp spec) Not detected Normal NOT DETECTED [facility] Comment on above: Result Comment: This test is not yet approved or cleared by the [place] FDA. When there are no FDA-approved or cleared tests available, and other criteria are met, FDA can make tests available under an emergency access mechanism called an Emergency Use Authorization (EUA). The EUA for this test is supported by the [employer] of Health and Human Service's (HHS's) declaration [...] SARS-CoV-2. Performed By: #### C BC #### [facility] [address] [place] [address] Dr. Neisha Araiza Covid-19 PCR (CVDTBH)on 04-03 SARS-CoV-2 (COVID-19) RNA TIM+probe Ql (Unsp spec) Not detected Normal NOT DETECTED [facility] Comment on above: Result Comment: This test is not yet approved or cleared by the [place] FDA. When there are no FDA-approved or cleared tests available, and other criteria are met, FDA can make tests available under an emergency access mechanism called an Emergency Use Authorization (EUA). The EUA for this test is supported by the [employer] of Health and Human Service's (HHS's) declaration [...] SARS-CoV-2. Performed By: #### C BC #### [facility] [address] [place] [address] Dr. Neisha Araiza CHLAMYDIA/GONOCOCCUS TIM ( AB/URINE/PAPon 04-17-2022 Chlamydia trachomatis, TIM Negative Normal Negative [facility] Comment on above: Performed By: #### C BC #### [facility] [address] [place] [address] Dr. Neisha Araiza Neisseria gonorrhoeae, TIM Negative Normal Negative [facility] Comment on above: Performed By: #### C BC #### [facility] [address] [place] [address] Dr. Neisha Araiza VAGINITIS/VAGINOSIS DNA PROB [employer] 04-16-2022 Heather species Positive Abnormal Negative [facility] Comment on above: Performed By: #### L IPABASIA, CMP #### [facility] [address] [place] [address] Dr. Neisha Araiza Gardnerella vaginalis Positive Abnormal Negative [facility] Comment on above: Performed By: #### L IPA BASIA, CMP #### [facility] [address] [place] [address] Dr. Neisha Araiza Trichomonas vaginalis Negative Normal Negative [facility] Comment on above: Performed By: #### L IPA, BASIA, CMP #### [facility] [address] [place] [address] Dr. Neisha Araiza AMYLASEon 01-05-2022 Amylase [Catalytic activity/Vol] 20 U/L Critically low 25-115 [facility] Comment on above: Performed By: #### C BC #### [facility] [address] [address] [address] Neisha Araiza CBC AUTO DIFFon 01-05-2022 BASO # 0.0 103/ul Normal 0.0-0.1 [facility] Comment on above: Performed By: #### C BC #### [facility] [address] [place] [address] Dr. Neisha Araiza Basophils/100 WBC (Bld) 0.6 % Normal 0.2-2.0 [facility] Comment on above: Performed By: #### C BC #### [facility] [address] [place] [address] Dr. Neisha Araiza EO # 0.1 103/ul Normal 0.0-0.7 [facility] Comment on above: Performed By: #### C BC #### [facility] [address] [place] [address] Dr. Neisha Araiza Eosinophils/100 WBC (Bld) 0.7 % Critically low 0.9-7.0 [facility] Comment on above: Performed By: #### C BC #### [facility] [address] [place] [address] Dr. Neisha Araiza Erythrocyte distribution width (RBC) [Ratio] 13.5 % Normal 11.0-15.0 [facility] Comment on above: Performed By: #### C BC #### [facility] [address] [place] [address] Dr. Neisha Araiza Hematocrit (Bld) [Volume fraction] 35.3 % Critically low 36.0-48.0 [facility] Comment on above: Performed By: #### C BC #### [facility] [address] [place] [address] Dr. Neisha Araiza Hemoglobin (Bld) [Mass/Vol] 11.8 g/dL Critically low 12.0-16.0 [facility] Comment on above: Performed By: #### C BC #### [facility] [address] [place] [address] Dr. Neisha Araiza IG # 0.02 10e3/ul Normal 0.00-0.03 [facility] Comment on above: Performed By: #### C BC #### [facility] [address] [place] [address] Dr. Neisha Araiza IG % 0.3 % Normal 0.0-0.5 [facility] Comment on above: Performed By: #### C BC #### [facility] [address] [place] [address] Dr. Neisha Araiza LYMPH # 2.3 103/ul Normal 1.2-3.8 [facility] Comment on above: Performed By: #### C BC #### [facility] [address] [place] [address] Dr. Neisha Araiza Lymphocytes/100 WBC (Bld) 33.2 % Normal 20.5-60.0 [facility] Comment on above: Performed By: #### C BC #### [facility] [address] [place] [address] Dr. Neisha Araiza MANUAL DIFF REQ NO Normal [facility] Comment on above: Performed By: #### C BC #### [facility] [address] [place] [address] Dr. Neisha Araiza MCH (RBC) [Entitic mass] 29.1 pg Normal 26.7-34.0 [facility] Comment on above: Performed By: #### C BC #### [facility] [address] [place] [address] Dr. Neisha Araiza MCHC (RBC) [Mass/Vol] 33.4 g/dL Normal 29.9-35.2 [facility] Comment on above: Performed By: #### C BC #### [facility] [address] [place] [address] Dr. Neisha Araiza MCV (RBC) [Entitic vol] 86.9 fL Normal 81.0-99.0 [facility] Comment on above: Performed By: #### C BC #### [facility] [address] [place] [address] Dr. Neisha Araiza MONO # 0.6 103/ul Normal 0.3-0.8 [facility] Comment on above: Performed By: #### C BC #### [facility] [address] [address] [address] Neisha Araiza Monocytes/100 WBC (Bld) 8.6 % Normal 1.7-12.0 [facility] Comment on above: Performed By: #### C BC #### [facility] [address] [address] [address] Neisha Araiza NEUT # 3.9 103/ul Normal 1.4-6.5 [facility] Comment on above: Performed By: #### C BC #### [facility] [address] [address] [address] Neisha Araiza Neutrophils/100 WBC (Bld) 56.6 % Normal 43.0-75.0 [facility] Comment on above: Performed By: #### C BC #### [facility] [address] [place] [address] Dr. Neisha Araiza Platelet mean volume (Bld) [Entitic vol] 9.5 fL Normal 9.5-13.5 [facility] Comment on above: Performed By: #### C BC #### [facility] [address] [place] [address] Dr. Neisha Araiza PLT 200 103/ul Normal 150-450 [facility] Comment on above: Performed By: #### C BC #### [facility] [address] [place] [address] Dr. Neisha Araiza RBC 4.06 106/ul Critically low 4.20-5.40 [facility] Comment on above: Performed By: #### C BC #### [facility] [address] [place] [address] Dr. Neisha Araiza WBC 7.0 103/ul Normal 4.0-11.0 [facility] Comment on above: Performed By: #### C BC #### [facility] [address] [place] [address] Dr. Neisha Araiza LIPASEon 01-05-2022 Lipase [Catalytic activity/Vol] 133.0 U/L Normal 73.0-393.0 [facility] Comment on above: Performed By: #### C BC #### [facility] [address] [place] [address] Dr. Neisha Araiza POINT OF CARE GLUCOSEon Glucose [Mass/Vol] 240 mg/dL Critically high 74-[address] [facility] Comment on above: Performed By: #### P OCGLUC #### [facility] [address] [place] [address] Dr. Neisha Araiza Glucose [Mass/Vol] 240 mg/dL Critically high -[address] [facility] Comment on above: Performed By: #### L IPA, BASIA, CMP #### [facility] [address] [place] [address] Dr. Neisha Araiza PROF 14(COMP METB)on 022 Albumin [Mass/Vol] 2.3 g/dL Critically low 3.4-5.0 [facility] Comment on above: Performed By: #### C BC #### [facility] [address] [place] [address] Dr. Neisha Araiza Albumin/Globulin [Mass ratio] 0.8 {ratio} Normal [facility] Comment on above: Performed By: #### C BC #### [facility] [address] [place] [address] Dr. Neisha Araiza ALP [Catalytic activity/Vol] 78 U/L Normal 46-116 [facility] Comment on above: Performed By: #### C BC #### [facility] [address] [place] [address] Dr. Neisha Araiza ALT [Catalytic activity/Vol] 21 U/L Normal 14-59 [facility] Comment on above: Performed By: #### C BC #### [facility] [address] [place] [address] Dr. Neisha Araiza Anion gap [Moles/Vol] 15.2 mmol/L Normal [facility] Comment on above: Performed By: #### C BC #### [facility] [address] [place] [address] Dr. Neisha Araiza AST [Catalytic activity/Vol] 20 U/L Normal 15-37 [facility] Comment on above: Performed By: #### C BC #### [facility] [address] [address] [address] Neisha Araiza Bilirubin [Mass/Vol] 0.8 mg/dL Normal 0.2-1.0 [facility] Comment on above: Performed By: #### C BC #### [facility] [address] [address] [address] Neisha Araiza Calcium [Mass/Vol] 7.5 mg/dL Critically low 8.5-10.1 [facility] Comment on above: Performed By: #### C BC #### [facility] [address] [address] [address] Neisha Araiza Chloride [Moles/Vol] 105 mmol/L Normal 98-107 [facility] Comment on above: Performed By: #### C BC #### [facility] [address] [place] [address] Dr. Neisha Araiza CO2 [Moles/Vol] 19.2 mmol/L Critically low 21.0-32.0 [facility] Comment on above: Performed By: #### C BC #### [facility] [address] [address] [address] Neisha Araiza Creatinine [Mass/Vol] 0.59 mg/dL Normal 0.55-1.02 [facility] Comment on above: Performed By: #### C BC #### [facility] [address] [address] [address] Neisha Araiza EGFR-AF AUSTRIAN >60 Normal >=60 [facility] Comment on above: Performed By: #### C BC #### [facility] [address] [address] [address] Neisha Araiza EGFR-NON AF AUSTRIAN >60 Normal >=60 [facility] Comment on above: Performed By: #### C BC #### [facility] [address] [place] [address] Dr. Neisha Araiza Globulin (S) [Mass/Vol] 2.9 g/dL Normal [facility] Comment on above: Performed By: #### C BC #### [facility] [address] [address] [address] Neisha Araiza Glucose [Mass/Vol] 240 mg/dL Critically high 74-106 [facility] Comment on above: Performed By: #### C BC #### [facility] [address] [place] [address] Dr. Neisha Araiza Potassium [Moles/Vol] 3.4 mmol/L Critically low 3.5-5.1 [facility] Comment on above: Performed By: #### C BC #### [facility] [address] [place] [address] Dr. Neisha Araiza Protein [Mass/Vol] 5.2 g/dL Critically low 6.4-8.2 [facility] Comment on above: Performed By: #### C BC #### [facility] [address] [place] [address] Dr. Neisha Araiza Sodium [Moles/Vol] 136 mmol/L Normal 136-145 [facility] Comment on above: Performed By: #### C BC #### [facility] [address] [place] [address] Dr. Neisha Araiza Urea nitrogen [Mass/Vol] 9.0 mg/dL Normal 7.0-18.0 [facility] Comment on above: Performed By: #### C BC #### [facility] [address] [place] [address] Dr. Neisha Araiza Urea nitrogen/Creatinine [Mass ratio] 15.3 mg/mg Normal [facility] Comment on above: Performed By: #### C BC #### [facility] [address] [place] [address] Dr. Neisha Araiza BLOOD GASES BTYon 01-04-2022 02 MODE ROOM AIR Normal [facility] Comment on above: Performed By: #### C BC #### [facility] [address] [place] [address] Dr. Neisha Araiza ALLENS TEST Positive Normal [facility] Comment on above: Performed By: #### C BC #### [facility] [address] [place] [address] Dr. Neisha Araiza Base excess Calc (Bld) [Moles/Vol] -10.08698 mmol/L Critically low -2.0-2.0 [facility] Comment on above: Performed By: #### C BC #### [facility] [address] [place] [address] Dr. Neisha Araiza BIPAP PRESSURE Normal [facility] Comment on above: Performed By: #### C BC #### [facility] [address] [place] [address] Dr. Neisha Araiza CO2 [Moles/Vol] 29.0 mmol/L Critically high 23.0-28.0 [facility] Comment on above: Performed By: #### C BC #### [facility] [address] [place] [address] Dr. Neisha Araiza CPAP [facility] Comment on above: Performed By: #### C BC #### [facility] [address] [place] [address] Dr. Neisha Araiza FIO2 [facility] Comment on above: Performed By: #### C BC #### [facility] [address] [place] [address] Dr. Neisha Araiza HCO3 (Bld) [Moles/Vol] 17.9 mmol/L Critically low 22.0-26.0 [facility] Comment on above: Performed By: #### C BC #### [facility] [address] [place] [address] Dr. Neisha Araiza LPM [facility] Comment on above: Performed By: #### C BC #### [facility] [address] [place] [address] Dr. Neisha Araiza MINUTE VOLUME Normal [facility] Comment on above: Performed By: #### C BC #### [facility] [address] [place] [address] Dr. Neisha Araiza Oxygen (Bld) [Partial pressure] 95.8 mm[Hg] Normal 80.0-100.0 [facility] Comment on above: Performed By: #### C BC #### [facility] [address] [place] [address] Dr. Neisha Araiza Oxygen saturation in Blood 98.6 % Normal 95.0-100.0 [facility] Comment on above: Performed By: #### C BC #### [facility] [address] [place] [address] Dr. Neisha Araiza PCO2 22.9 mmHg Critically low 35.0-45.0 [facility] Comment on above: Performed By: #### C BC #### [facility] [address] [place] [address] Dr. Neisha Araiza PEEP [facility] Comment on above: Performed By: #### C BC #### [facility] [address] [place] [address] Dr. Neisha Araiza pH (Bld) 7.408 [pH] Normal 7.350-7.450 [facility] Comment on above: Performed By: #### C BC #### [facility] [address] [place] [address] Dr. Neisha Araiza PIP [facility] Comment on above: Performed By: #### C BC #### [facility] [address] [place] [address] Dr. Neisha Araiza PS [facility] Comment on above: Performed By: #### C BC #### [facility] [address] [place] [address] Dr. Neisha Araiza PUNCTURE SITE RR [facility] Comment on above: Performed By: #### C BC #### [facility] [address] [place] [address] Dr. Neisha Araiza RATE [facility] Comment on above: Performed By: #### C BC #### [facility] [address] [place] [address] Dr. Neisha Araiza VENT MODE [facility] Comment on above: Performed By: #### C BC #### [facility] [address] [place] [address] Dr. Neisha Araiza [facility] Comment on above: Performed By: #### C BC #### [facility] [address] [place] [address] Dr. Neisha Araiza CBC AUTO DIFFon 01-04-2022 BASO # 0.0 103/ul Normal 0.0-0.1 [facility] Comment on above: Performed By: #### C BC #### [facility] [address] [address] [address] Neisha Araiza Basophils/100 WBC (Bld) 0.3 % Normal 0.2-2.0 [facility] Comment on above: Performed By: #### C BC #### [facility] [address] [address] [address] Neisha Araiza EO # 0.0 103/ul Normal 0.0-0.7 [facility] Comment on above: Performed By: #### C BC #### [facility] [address] [place] [address] Dr. Neisha Araiza Eosinophils/100 WBC (Bld) 0.0 % Critically low 0.9-7.0 [facility] Comment on above: Performed By: #### C BC #### [facility] [address] [place] [address] Dr. Neisha Araiza Erythrocyte distribution width (RBC) [Ratio] 13.5 % Normal 11.0-15.0 [facility] Comment on above: Performed By: #### C BC #### [facility] [address] [place] [address] Dr. Neisha Araiza Hematocrit (Bld) [Volume fraction] 39.1 % Normal 36.0-48.0 [facility] Comment on above: Performed By: #### C BC #### [facility] [address] [place] [address] Dr. Neisha Araiza Hemoglobin (Bld) [Mass/Vol] 13.3 g/dL Normal 12.0-16.0 [facility] Comment on above: Performed By: #### C BC #### [facility] [address] [place] [address] Dr. Neisha Araiza IG # 0.05 10e3/ul Critically high 0.00-0.03 [facility] Comment on above: Performed By: #### C BC #### [facility] [address] [place] [address] Dr. Neisha Araiza IG % 0.5 % Normal 0.0-0.5 [facility] Comment on above: Performed By: #### C BC #### [facility] [address] [place] [address] Dr. Neisha Araiza LYMPH # 1.4 103/ul Normal 1.2-3.8 [facility] Comment on above: Performed By: #### C BC #### [facility] [address] [place] [address] Dr. Neisha Araiza Lymphocytes/100 WBC (Bld) 14.8 % Critically low 20.5-60.0 [facility] Comment on above: Performed By: #### C BC #### [facility] [address] [place] [address] Dr. Neisha Araiza MANUAL DIFF REQ NO Normal [facility] Comment on above: Performed By: #### C BC #### [facility] [address] [place] [address] Dr. Neisha Araiza MCH (RBC) [Entitic mass] 28.6 pg Normal 26.7-34.0 [facility] Comment on above: Performed By: #### C BC #### [facility] [address] [place] [address] Dr. Neisha Araiza MCHC (RBC) [Mass/Vol] 34.0 g/dL Normal 29.9-35.2 [facility] Comment on above: Performed By: #### C BC #### [facility] [address] [place] [address] Dr. Neisha Araiza MCV (RBC) [Entitic vol] 84.1 fL Normal 81.0-99.0 [facility] Comment on above: Performed By: #### C BC #### [facility] [address] [place] [address] Dr. Neisha Araiza MONO # 0.6 103/ul Normal 0.3-0.8 [facility] Comment on above: Performed By: #### C BC #### [facility] [address] [place] [address] Dr. Neisha Araiza Monocytes/100 WBC (Bld) 5.8 % Normal 1.7-12.0 [facility] Comment on above: Performed By: #### C BC #### [facility] [address] [place] [address] Dr. Neisha Araiza NEUT # 7.6 103/ul Critically high 1.4-6.5 [facility] Comment on above: Performed By: #### C BC #### [facility] [address] [place] [address] Dr. Neisha Araiza Neutrophils/100 WBC (Bld) 78.6 % Critically high 43.0-75.0 [facility] Comment on above: Performed By: #### C BC #### [facility] [address] [place] [address] Dr. Neisha Araiza Platelet mean volume (Bld) [Entitic vol] 9.9 fL Normal 9.5-13.5 [facility] Comment on above: Performed By: #### C BC #### [facility] [address] [place] [address] Dr. Neisha Araiza PLT 280 103/ul Normal 150-450 [facility] Comment on above: Performed By: #### C BC #### [facility] [address] [place] [address] Dr. Neisha Araiza RBC 4.65 106/ul Normal 4.20-5.40 [facility] Comment on above: Performed By: #### C BC #### [facility] [address] [place] [address] Dr. Neisha Araiza WBC 9.7 103/ul Normal 4.0-11.0 [facility] Comment on above: Performed By: #### C BC #### [facility] [address] [place] [address] Dr. Neisha Araiza Covid-19 PCR ([facility])on SARS-CoV-2 (COVID-19) RNA TIM+probe Ql (Unsp spec) Not detected Normal NOT DETECTED [facility] Comment on above: Result Comment: When [...] for this test is supported by the [employer] of Health and Human Service's declaration that [...] used). Performed By: #### C BC #### [facility] [address] [place] [address] Dr. Neisha Araiza POINT OF CARE GLUCOSEon 0 Glucose [Mass/Vol] 215 mg/dL Critically high [address] [place] [address] Comment on above: Performed By: #### L BASIA DRIVER CMP #### [facility] [address] [place] [address] Dr. Neisha Araiza Glucose [Mass/Vol] 187 mg/dL Critically high [address] [place] [address] Comment on above: Performed By: #### C BC #### [facility] [address] [place] [address] Dr. Neisha Araiza Glucose [Mass/Vol] 240 mg/dL Critically high [address] [place] [address] Comment on above: Performed By: #### C BC #### [facility] [address] [place] [address] Dr. Neisha Araiza Glucose [Mass/Vol] 251 mg/dL Critically high [address] [place] [address] Comment on above: Performed By: #### C BC #### [facility] [address] [place] [address] Dr. Neisha Araiza Glucose [Mass/Vol] 264 mg/dL Critically high [address] [place] [address] Comment on above: Performed By: #### L BASIA DRIVER, CMP #### [facility] [address] [place] [address] Dr. Neisha Araiza PROF 14(COMP METB)on 022 Albumin [Mass/Vol] 2.9 g/dL Critically low 3.4-5.0 [facility] Comment on above: Performed By: #### L IPA BASIA, CMP #### [facility] [address] [address] [address] Neisha Araiza Albumin/Globulin [Mass ratio] 0.9 {ratio} Normal [facility] Comment on above: Performed By: #### L IPA BASIA, CMP #### [facility] [address] [address] [address] Neisha Araiza ALP [Catalytic activity/Vol] 92 U/L Normal 46-116 [facility] Comment on above: Performed By: #### L NEISHA BASIA, CMP #### [facility] [address] [address] [address] Neisha Araiza ALT [Catalytic activity/Vol] 28 U/L Normal 14-59 [facility] Comment on above: Performed By: #### L NEISHA BASIA, CMP #### [facility] [address] [address] [address] Neisha Araiza Anion gap [Moles/Vol] 19.9 mmol/L Normal [facility] Comment on above: Performed By: #### L NEISHA BASIA, CMP #### [facility] [address] [address] [address] Neisha Araiza AST [Catalytic activity/Vol] 14 U/L Critically low 15-37 [facility] Comment on above: Performed By: #### L IPA BASIA, CMP #### [facility] [address] [address] [address] Neisha Araiza Calcium [Mass/Vol] 7.8 mg/dL Critically low 8.5-10.1 [facility] Comment on above: Performed By: #### L IPA, BASIA, CMP #### [facility] [address] [address] [address] Neisha Araiza Chloride [Moles/Vol] 102 mmol/L Normal 98-107 [facility] Comment on above: Performed By: #### L IPA, BASIA, CMP #### [facility] [address] [address] [address] Neisha Araiza CO2 [Moles/Vol] 17.7 mmol/L Critically low 21.0-32.0 [facility] Comment on above: Performed By: #### L NEISHA BASIA, CMP #### [facility] [address] [address] [address] Neisha Araiza Creatinine [Mass/Vol] 0.60 mg/dL Normal 0.55-1.02 [facility] Comment on above: Performed By: #### L NEISHA BASIA, CMP #### [facility] [address] [address] [address] Neisha Araiza EGFR-AF AUSTRIAN >60 Normal >=60 [facility] Comment on above: Performed By: #### L NEISHA BASIA, CMP #### [facility] [address] [address] [address] Neisha Araiza EGFR-NON AF AUSTRIAN >60 Normal >=60 [facility] Comment on above: Performed By: #### L BASIA DRIVER, CMP #### [facility] [address] [address] [address] Neisha Araiza Globulin (S) [Mass/Vol] 3.4 g/dL Normal [facility] Comment on above: Performed By: #### L BASIA DRIVER, CMP #### [facility] [address] [address] [address] Neisha Araiza Glucose [Mass/Vol] 272 mg/dL Critically high 74-106 [facility] Comment on above: Performed By: #### L NEISHA BASIA, CMP #### [facility] [address] [address] [address] Neisha Araiza Potassium [Moles/Vol] 3.6 mmol/L Normal 3.5-5.1 [facility] Comment on above: Performed By: #### L NEISHA BASIA, CMP #### [facility] [address] [address] [address] Neisha Araiza Protein [Mass/Vol] 6.3 g/dL Critically low 6.4-8.2 Th e [facility] Comment on above: Performed By: #### L IPA, BASIA, CMP #### [facility] [address] [address] [address] Neisha Araiza Sodium [Moles/Vol] 136 mmol/L Normal 136-145 [facility] Comment on above: Performed By: #### L IPA, BASIA, CMP #### [facility] [address] [address] [address] Neisha Araiza Urea nitrogen [Mass/Vol] 9.0 mg/dL Normal 7.0-18.0 [facility] Comment on above: Performed By: #### L IPA, BASIA, CMP #### [facility] [address] [address] [address] Neisha Araiza Urea nitrogen/Creatinine [Mass ratio] 15.0 mg/mg Normal [facility] Comment on above: Performed By: #### L IPA, BASIA, CMP #### [facility] [address] [place] [address] Dr. Neisha Araiza XR ABD FLAT_UPon 01-04-2022 [...] MARIAELENA BROWN Date: 2022-01-04 01:26 Normal [facility] ACETONE SERUMon 01-03-2022 ACETONE Negative Normal NEGATIVE [facility] Comment on above: Performed By: #### A CETON #### [facility] [address] [place] [address] Dr. Neisha Araiza ACETONE SMALL Abnormal NEGATIVE [facility] Comment on above: Performed By: #### C BC #### [facility] [address] [address] [address] Neisha Araiza AMYLASEon 01-03-2022 Amylase [Catalytic activity/Vol] 15 U/L Critically low 25-115 [facility] Comment on above: Performed By: #### L IPA, BASIA, CMP #### [facility] [address] [place] [address] Dr. Neisha Araiza CARDIAC BRI ADMITon 022 CK [Catalytic activity/Vol] 44 U/L Normal 26-192 [facility] Comment on above: Performed By: #### L IPA, BASIA, CMP #### [facility] [address] [place] [address] Dr. Neisha Araiza CK.MB [Mass/Vol] 0.93 ng/mL Normal <=3.60 [facility] Comment on above: Performed By: #### L IPA, BASIA, CMP #### [facility] [address] [place] [address] Dr. Neisha Araiza HSTROP 4.1 pg/mL Normal 4.0-51.3 [facility] Comment on above: Result Comment: CUT- OFF POINTS HAVE BEEN ESTABLISHED BASED ON THE FOURTH UNIVERSAL DEFINITIONS OF MYOCARDIAL INFARCTION. THE UPPER REFERENCE LIMIT (URL) OF TROPONIN, DEFINED THE 99TH PERCENTILE OF cTnI DISTRIBUTION IN A REFERENCE POPULATION, HAS BEEN CONFIRMED THE DECISION THRESHOLD FOR PA DIAGNOSIS. Performed By: #### L IPA, BASIA, CMP #### [facility] [address] [place] [address] Dr. Neisha Araiza ROCIO 20 ng/mL Normal 9-82 [facility] Comment on above: Performed By: #### L IPA, BASIA, CMP #### [facility] [address] [place] [address] Dr. Neisha Araiza CBC AUTO DIFFon 01-03-2022 Basophils/100 WBC (Bld) 0.3 % Normal 0.2-2.0 [facility] Comment on above: Performed By: #### C BC #### [facility] [address] [place] [address] Dr. Neisha Araiza Hematocrit (Bld) [Volume fraction] 42.7 % Normal 36.0-48.0 [facility] Comment on above: Performed By: #### C BC #### [facility] [address] [place] [address] Dr. Neisha Araiza Hemoglobin (Bld) [Mass/Vol] 14.3 g/dL Normal 12.0-16.0 [facility] Comment on above: Performed By: #### C BC #### [facility] [address] [place] [address] Dr. Neisha Araiza IG # 0.03 10e3/ul Normal 0.00-0.03 [facility] Comment on above: Performed By: #### C BC #### [facility] [address] [place] [address] Dr. Neisha Araiza IG % 0.3 % Normal 0.0-0.5 [facility] Comment on above: Performed By: #### C BC #### [facility] [address] [place] [address] Dr. Neisha Araiza LYMPH # 1.1 103/ul Critically low 1.2-3.8 [facility] Comment on above: Performed By: #### C BC #### [facility] [address] [place] [address] Dr. Neisha Araiza Lymphocytes/100 WBC (Bld) 12.9 % Critically low 20.5-60.0 [facility] Comment on above: Performed By: #### C BC #### [facility] [address] [place] [address] Dr. Neisha Araiza MCHC (RBC) [Mass/Vol] 33.5 g/dL Normal 29.9-35.2 [facility] Comment on above: Performed By: #### C BC #### [facility] [address] [place] [address] Dr. Neisha Araiza MCV (RBC) [Entitic vol] 85.2 fL Normal 81.0-99.0 [facility] Comment on above: Performed By: #### C BC #### [facility] [address] [place] [address] Dr. Neisha Araiza MONO # 0.3 103/ul Normal 0.3-0.8 [facility] Comment on above: Performed By: #### C BC #### [facility] [address] [place] [address] Dr. Neisha Araiza Monocytes/100 WBC (Bld) 3.3 % Normal 1.7-12.0 [facility] Comment on above: Performed By: #### C BC #### [facility] [address] [place] [address] Dr. Neisha Araiza NEUT # 7.3 103/ul Critically high 1.4-6.5 [facility] Comment on above: Performed By: #### C BC #### [facility] [address] [place] [address] Dr. Neisha Araiza Neutrophils/100 WBC (Bld) 83.2 % Critically high 43.0-75.0 [facility] Comment on above: Performed By: #### C BC #### [facility] [address] [place] [address] Dr. Neisha Araiza PLT 281 103/ul Normal 150-450 [facility] Comment on above: Performed By: #### C BC #### [facility] [address] [place] [address] Dr. Neisha Araiza RBC 5.01 106/ul Normal 4.20-5.40 [facility] Comment on above: Performed By: #### C BC #### [facility] [address] [place] [address] Dr. Neisha Araiza WBC 8.8 103/ul Normal 4.0-11.0 [facility] Comment on above: Performed By: #### C BC #### [facility] [address] [place] [address] Dr. Neisha Araiza BASO # 0.0 103/ul Normal 0.0-0.1 [facility] Comment on above: Performed By: #### C BC #### [facility] [address] [place] [address] Dr. Neisha Araiza Performed By: #### A CETON #### [facility] [address] [place] [address] Dr. Neisha Araiza Basophils/100 WBC (Bld) 0.5 % Normal 0.2-2.0 [facility] Comment on above: Performed By: #### A CETON #### [facility] [address] [place] [address] Dr. Neisha Araiza EO # 0.0 103/ul Normal 0.0-0.7 [facility] Comment on above: Performed By: #### C BC #### [facility] [address] [place] [address] Dr. Neisha Araiza Performed By: #### A CETON #### [facility] [address] [place] [address] Dr. Neisha Araiza Eosinophils/100 WBC (Bld) 0.0 % Critically low 0.9-7.0 [facility] Comment on above: Performed By: #### C BC #### [facility] [address] [place] [address] Dr. Neisha Araiza Performed By: #### A CETON #### [facility] [address] [place] [address] Dr. Neisha Araiza Erythrocyte distribution width (RBC) [Ratio] 13.2 % Normal 11.0-15.0 [facility] Comment on above: Performed By: #### C BC #### [facility] [address] [place] [address] Dr. Neisha Araiza Performed By: #### A CETON #### [facility] [address] [place] [address] Dr. Neisha Araiza Hematocrit (Bld) [Volume fraction] 45.8 % Normal 36.0-48.0 [facility] Comment on above: Performed By: #### A CETON #### [facility] [address] [place] [address] Dr. Neisha Araiza Hemoglobin (Bld) [Mass/Vol] 15.6 g/dL Normal 12.0-16.0 [facility] Comment on above: Performed By: #### A CETON #### [facility] [address] [place] [address] Dr. Neisha Araiza IG # 0.05 10e3/ul Critically high 0.00-0.03 [facility] Comment on above: Performed By: #### A CETON #### [facility] [address] [place] [address] Dr. Neisha Araiza IG % 0.6 % Critically high 0.0-0.5 [facility] Comment on above: Performed By: #### A CETON #### [facility] [address] [place] [address] Dr. Neisha Araiza LYMPH # 0.7 103/ul Critically low 1.2-3.8 [facility] Comment on above: Performed By: #### A CETON #### [facility] [address] [place] [address] Dr. Neisha Araiza Lymphocytes/100 WBC (Bld) 8.3 % Critically low 20.5-60.0 [facility] Comment on above: Performed By: #### A CETON #### [facility] [address] [place] [address] Dr. Neisha Araiza MANUAL DIFF REQ NO Normal [facility] Comment on above: Performed By: #### C BC #### [facility] [address] [place] [address] Dr. Neisha Araiza Performed By: #### A CETON #### [facility] [address] [place] [address] Dr. Neisha Araiza MCH (RBC) [Entitic mass] 28.5 pg Normal 26.7-34.0 [facility] Comment on above: Performed By: #### C BC #### [facility] [address] [place] [address] Dr. Neisha Araiza Performed By: #### A CETON #### [facility] [address] [place] [address] Dr. Neisha Araiza MCHC (RBC) [Mass/Vol] 34.1 g/dL Normal 29.9-35.2 [facility] Comment on above: Performed By: #### A CETON #### [facility] [address] [place] [address] Dr. Neisha Araiza MCV (RBC) [Entitic vol] 83.7 fL Normal 81.0-99.0 [facility] Comment on above: Performed By: #### A CETON #### [facility] [address] [place] [address] Dr. Neisha Araiza MONO # 0.2 103/ul Critically low 0.3-0.8 [facility] Comment on above: Performed By: #### A CETON #### [facility] [address] [place] [address] Dr. Neisha Araiza Monocytes/100 WBC (Bld) 2.7 % Normal 1.7-12.0 [facility] Comment on above: Performed By: #### A CETON #### [facility] [address] [place] [address] Dr. Neisha Araiza NEUT # 6.9 103/ul Critically high 1.4-6.5 [facility] Comment on above: Performed By: #### A CETON #### [facility] [address] [place] [address] Dr. Neisha Araiza Neutrophils/100 WBC (Bld) 87.9 % Critically high 43.0-75.0 [facility] Comment on above: Performed By: #### A CETON #### [facility] [address] [place] [address] Dr. Neisha Araiza Platelet mean volume (Bld) [Entitic vol] 9.9 fL Normal 9.5-13.5 [facility] Comment on above: Performed By: #### C BC #### [facility] [address] [place] [address] Dr. Neisha Araiza Performed By: #### A CETON #### [facility] [address] [place] [address] Dr. Neisha Araiza PLT 260 103/ul Normal 150-450 [facility] Comment on above: Performed By: #### A CETON #### [facility] [address] [place] [address] Dr. Neisha Araiza RBC 5.47 106/ul Critically high 4.20-5.40 [facility] Comment on above: Performed By: #### A CETON #### [facility] [address] [place] [address] Dr. Neisha Araiza WBC 7.8 103/ul Normal 4.0-11.0 [facility] Comment on above: Performed By: #### A CETON #### [facility] [address] [place] [address] Dr. Neisha Araiza LIPASEon 01-03-2022 Lipase [Catalytic activity/Vol] 72.0 U/L Critically low 73.0-393.0 [facility] Comment on above: Performed By: #### L BASIA DRIVER, CMP #### [facility] [address] [place] [address] Dr. Neisha Araiza PH VENOUS BLOODon 01-03-2022 PCO2 VENOUS 34.2 mmHg Critically low 40.0-52.0 [facility] Comment on above: Performed By: #### L BASIA DRIVER CMP #### [facility] [address] [place] [address] Dr. Neisha Araiza pH VENOUS 7.370 Normal 7.330-7.430 [facility] Comment on above: Performed By: #### L BASIA DRIVER, CMP #### [facility] [address] [place] [address] Dr. Neisha Araiza POINT OF CARE GLUCOSEon Glucose [Mass/Vol] 283 mg/dL Critically high 74-[address] [facility] Comment on above: Performed By: #### L BASIA DRIVER CMP #### [facility] [address] [place] [address] Dr. Neisha Araiza Glucose [Mass/Vol] 297 mg/dL Critically high 74-[address] [facility] Comment on above: Performed By: #### A CETON #### [facility] [address] [place] [address] Dr. Neisha Araiza PROF 14(COMP METB)on 022 Albumin [Mass/Vol] 3.6 g/dL Normal 3.4-5.0 [facility] Comment on above: Performed By: #### L BASIA DRIVER, CMP #### [facility] [address] [place] [address] Dr. Neisha Araiza Albumin/Globulin [Mass ratio] 0.8 {ratio} Normal [facility] Comment on above: Performed By: #### L BASIA DRIVER, CMP #### [facility] [address] [address] [address] Neisha Araiza ALP [Catalytic activity/Vol] 131 U/L Critically high 46-116 [facility] Comment on above: Performed By: #### L BASIA DRIVER, CMP #### [facility] [address] [address] [address] Neisha Araiza ALT [Catalytic activity/Vol] 39 U/L Normal 14-59 [facility] Comment on above: Performed By: #### L BASIA DRIVER, CMP #### [facility] [address] [address] [address] Neisha Araiza Anion gap [Moles/Vol] 20.7 mmol/L Normal [facility] Comment on above: Performed By: #### L BASIA DRIVER, CMP #### [facility] [address] [address] [address] Neisha Araiza AST [Catalytic activity/Vol] 19 U/L Normal 15-37 [facility] Comment on above: Performed By: #### L BASIA DRIVER, CMP #### [facility] [address] [address] [address] Neisha Araiza Calcium [Mass/Vol] 8.9 mg/dL Normal 8.5-10.1 [facility] Comment on above: Performed By: #### L BSAIA DRIVER, CMP #### [facility] [address] [address] [address] Neisha Araiza Chloride [Moles/Vol] 97 mmol/L Critically low 98-107 [facility] Comment on above: Performed By: #### L BASIA DRIVER, CMP #### [facility] [address] [address] [address] Neisha Araiza CO2 [Moles/Vol] 19.2 mmol/L Critically low 21.0-32.0 [facility] Comment on above: Performed By: #### L BASIA DRIVER, CMP #### [facility] [address] [address] [address] Neisha Araiza Creatinine [Mass/Vol] 0.60 mg/dL Normal 0.55-1.02 [facility] Comment on above: Performed By: #### L BASIA DRIVER, CMP #### [facility] [address] [address] [address] Neisha Araiza Globulin (S) [Mass/Vol] 4.3 g/dL Normal [facility] Comment on above: Performed By: #### L IPA BASIA, CMP #### [facility] [address] [place] [address] Dr. Neisha Araiza Glucose [Mass/Vol] 368 mg/dL Critically high 74-[address] [facility] Comment on above: Performed By: #### L IPA BASIA, CMP #### [facility] [address] [place] [address] Dr. Neisha Araiza Protein [Mass/Vol] 7.9 g/dL Normal 6.4-8.2 [facility] Comment on above: Performed By: #### L NEISHA BASIA, CMP #### [facility] [address] [place] [address] Dr. Neisha Araiza Sodium [Moles/Vol] 133 mmol/L Critically low 136-145 [facility] Comment on above: Performed By: #### L BASIA DRIVER, CMP #### [facility] [address] [place] [address] Dr. Neisha Araiza Urea nitrogen [Mass/Vol] 13.0 mg/dL Normal 7.0-18.0 [facility] Comment on above: Performed By: #### L BASIA DRIVER, CMP #### [facility] [address] [place] [address] Dr. Neisha Araiza Urea nitrogen/Creatinine [Mass ratio] 21.7 mg/mg Normal [facility] Comment on above: Performed By: #### L BASIA DRIVER, CMP #### [facility] [address] [place] [address] Dr. Neisha Araiza PROF CHEM 8 (BAS METB)on Anion gap [Moles/Vol] 20.2 mmol/L Normal [facility] Comment on above: Performed By: #### L NEISHA BASIA, CMP #### [facility] [address] [place] [address] Dr. Neisha Araiza Calcium [Mass/Vol] 8.0 mg/dL Critically low 8.5-10.1 [facility] Comment on above: Performed By: #### L BSAIA DRIVER, CMP #### [facility] [address] [address] [address] Neisha Araiza Chloride [Moles/Vol] 102 mmol/L Normal 98-107 [facility] Comment on above: Performed By: #### L BASIA DRIVER, CMP #### [facility] [address] [address] [address] Neisha Araiza CO2 [Moles/Vol] 16.7 mmol/L Critically low 21.0-32.0 [facility] Comment on above: Performed By: #### L BASIA DRIVER, CMP #### [facility] [address] [place] [address] Dr. Neisha Araiza Creatinine [Mass/Vol] 0.62 mg/dL Normal 0.55-1.02 [facility] Comment on above: Performed By: #### L BASIA DRIVER, CMP #### [facility] [address] [place] [address] Dr. Neisha Araiza Glucose [Mass/Vol] 287 mg/dL Critically high 74-[address] [facility] Comment on above: Performed By: #### L BASIA DRIVER, CMP #### [facility] [address] [place] [address] Dr. Neisha Araiza Sodium [Moles/Vol] 135 mmol/L Critically low 136-145 [facility] Comment on above: Performed By: #### L BASIA DRIVER, CMP #### [facility] [address] [place] [address] Dr. Neisha Araiza Urea nitrogen [Mass/Vol] 11.0 mg/dL Normal 7.0-18.0 [facility] Comment on above: Performed By: #### L BASIA DRIVER, CMP #### [facility] [address] [place] [address] Dr. Neisha Araiza Urea nitrogen/Creatinine [Mass ratio] 17.7 mg/mg Normal [facility] Comment on above: Performed By: #### L BASIA DRIVER, CMP #### [facility] [address] [place] [address] Dr. Neisha Araiza EGFR-AF AUSTRIAN >60 Normal >=60 [facility] Comment on above: Performed By: #### L BASIA DRIVER, CMP #### [facility] [address] [place] [address] Dr. Neisha Araiza EGFR-NON AF AUSTRIAN >60 Normal >=60 [facility] Comment on above: Performed By: #### L BASIA DRIVER, CMP #### [facility] [address] [place] [address] Dr. Neisha Araiza Potassium [Moles/Vol] 3.9 mmol/L Normal 3.5-5.1 [facility] Comment on above: Performed By: #### L BASIA DRIVER, CMP #### [facility] [address] [place] [address] Dr. Neisha Araiza CBC AUTO DIFFon 12-12-2021 BASO # 0.1 103/ul Normal 0.0-0.1 [facility] Comment on above: Performed By: #### C BC #### [facility] [address] [place] [address] Dr. Neisha Araiza Basophils/100 WBC (Bld) 0.6 % Normal 0.2-2.0 [facility] Comment on above: Performed By: #### C BC #### [facility] [address] [place] [address] Dr. Neisha Araiza EO # 0.0 103/ul Normal 0.0-0.7 [facility] Comment on above: Performed By: #### C BC #### [facility] [address] [place] [address] Dr. Neisha Araiza Eosinophils/100 WBC (Bld) 0.5 % Critically low 0.9-7.0 [facility] Comment on above: Performed By: #### C BC #### [facility] [address] [place] [address] Dr. Neisha Araiza Erythrocyte distribution width (RBC) [Ratio] 12.6 % Normal 11.0-15.0 [facility] Comment on above: Performed By: #### C BC #### [facility] [address] [place] [address] Dr. Neisha Araiza Hematocrit (Bld) [Volume fraction] 40.7 % Normal 36.0-48.0 [facility] Comment on above: Performed By: #### C BC #### [facility] [address] [place] [address] Dr. Neisha Araiza Hemoglobin (Bld) [Mass/Vol] 14.4 g/dL Normal 12.0-16.0 [facility] Comment on above: Performed By: #### C BC #### [facility] [address] [place] [address] Dr. Neisha Araiza IG # 0.05 10e3/ul Critically high 0.00-0.03 [facility] Comment on above: Performed By: #### C BC #### [facility] [address] [place] [address] Dr. Neisha Araiza IG % 0.6 % Critically high 0.0-0.5 [facility] Comment on above: Performed By: #### C BC #### [facility] [address] [place] [address] Dr. Neisha Araiza LYMPH # 2.3 103/ul Normal 1.2-3.8 [facility] Comment on above: Performed By: #### C BC #### [facility] [address] [place] [address] Dr. Neisha Araiza Lymphocytes/100 WBC (Bld) 26.2 % Normal 20.5-60.0 [facility] Comment on above: Performed By: #### C BC #### [facility] [address] [place] [address] Dr. Neisha Araiza MANUAL DIFF REQ NO Normal [facility] Comment on above: Performed By: #### C BC #### [facility] [address] [place] [address] Dr. Neisha Araiza MCH (RBC) [Entitic mass] 28.4 pg Normal 26.7-34.0 [facility] Comment on above: Performed By: #### C BC #### [facility] [address] [address] [address] Neisha Araiza MCHC (RBC) [Mass/Vol] 35.4 g/dL Critically high 29.9-35.2 [facility] Comment on above: Performed By: #### C BC #### [facility] [address] [place] [address] Dr. Neisha Araiza MCV (RBC) [Entitic vol] 80.3 fL Critically low 81.0-99.0 [facility] Comment on above: Performed By: #### C BC #### [facility] [address] [place] [address] Dr. Niesha Araiza MONO # 0.5 103/ul Normal 0.3-0.8 [facility] Comment on above: Performed By: #### C BC #### [facility] [address] [place] [address] Dr. Neisha Araiza Monocytes/100 WBC (Bld) 5.5 % Normal 1.7-12.0 [facility] Comment on above: Performed By: #### C BC #### [facility] [address] [place] [address] Dr. Neisha Araiza NEUT # 5.7 103/ul Normal 1.4-6.5 [facility] Comment on above: Performed By: #### C BC #### [facility] [address] [place] [address] Dr. Neisha Araiza Neutrophils/100 WBC (Bld) 66.6 % Normal 43.0-75.0 [facility] Comment on above: Performed By: #### C BC #### [facility] [address] [place] [address] Dr. Neihsa Araiza Platelet mean volume (Bld) [Entitic vol] 9.5 fL Normal 9.5-13.5 [facility] Comment on above: Performed By: #### C BC #### [facility] [address] [place] [address] Dr. Neisha Araiza PLT 266 103/ul Normal 150-450 [facility] Comment on above: Performed By: #### C BC #### [facility] [address] [place], [place] [id number] Dr. Neisha Araiza RBC 5.07 106/ul Normal 4.20-5.40 [facility] Comment on above: Performed By: #### C BC #### [facility] [address] [place] [address] Dr. Neisha Araiza WBC 8.6 103/ul Normal 4.0-11.0 [facility] Comment on above: Performed By: #### C BC #### [facility] [address] [place] [address] Dr. Neisha Araiza POINT OF CARE GLUCOSEon 11-30 Glucose [Mass/Vol] 157 mg/dL Critically high 74-[address] [facility] Comment on above: Performed By: #### C BC #### [facility] [address] [place] [address] Dr. Neisha Araiza Glucose [Mass/Vol] 223 mg/dL Critically high 74-[address] [facility] Comment on above: Performed By: #### L BASIA DRIVER, CMP #### [facility] [address] [place] [address] Dr. Neisha Araiza PROF 14(COMP METB)on 022 Albumin [Mass/Vol] 3.1 g/dL Critically low 3.4-5.0 [facility] Comment on above: Performed By: #### C BC #### [facility] [address] [place] [address] Dr. Neisha Araiza Albumin/Globulin [Mass ratio] 0.9 {ratio} Normal [facility] Comment on above: Performed By: #### C BC #### [facility] [address] [place] [address] Dr. Neisha Araiza ALP [Catalytic activity/Vol] 96 U/L Normal 46-116 [facility] Comment on above: Performed By: #### C BC #### [facility] [address] [place] [address] Dr. Neisha Araiza ALT [Catalytic activity/Vol] 28 U/L Normal 14-59 [facility] Comment on above: Performed By: #### C BC #### [facility] [address] [address] [address] Neisha Araiza Anion gap [Moles/Vol] 17.9 mmol/L Normal [facility] Comment on above: Performed By: #### C BC #### [facility] [address] [place] [address] Dr. Neisha Araiza AST [Catalytic activity/Vol] 19 U/L Normal 15-37 [facility] Comment on above: Performed By: #### C BC #### [facility] [address] [place] [address] Dr. Neisha Araiza Bilirubin [Mass/Vol] 1.0 mg/dL Normal 0.2-1.0 [facility] Comment on above: Performed By: #### C BC #### [facility] [address] [place] [address] Dr. Neisha Araiza Calcium [Mass/Vol] 8.1 mg/dL Critically low 8.5-10.1 [facility] Comment on above: Performed By: #### C BC #### [facility] [address] [place] [address] Dr. Neisha Araiza Chloride [Moles/Vol] 95 mmol/L Critically low 98-107 [facility] Comment on above: Performed By: #### C BC #### [facility] [address] [place] [address] Dr. Neisha Arazia CO2 [Moles/Vol] 19.2 mmol/L Critically low 21.0-32.0 [facility] Comment on above: Performed By: #### C BC #### [facility] [address] [place] [address] Dr. Neisha Araiza Creatinine [Mass/Vol] 0.51 mg/dL Critically low 0.55-1.02 [facility] Comment on above: Performed By: #### C BC #### [facility] [address] [place] [address] Dr. Neisha Araiza EGFR-AF AUSTRIAN >60 Normal >=60 [facility] Comment on above: Performed By: #### C BC #### [facility] [address] [place] [address] Dr. Neisha Araiza EGFR-NON AF AUSTRIAN >60 Normal >=60 [facility] Comment on above: Performed By: #### C BC #### [facility] [address] [place] [address] Dr. Neisha Araiza Globulin (S) [Mass/Vol] 3.6 g/dL Normal [facility] Comment on above: Performed By: #### C BC #### [facility] [address] [address] [address] Neisha Araiza Glucose [Mass/Vol] 230 mg/dL Critically high 74-106 [facility] Comment on above: Performed By: #### C BC #### [facility] [address] [place] [address] Dr. Neisha Araiza Potassium [Moles/Vol] 3.1 mmol/L Critically low 3.5-5.1 [facility] Comment on above: Performed By: #### C BC #### [facility] [address] [place] [address] Dr. Neisha Araiza Protein [Mass/Vol] 6.7 g/dL Normal 6.4-8.2 [facility] Comment on above: Performed By: #### C BC #### [facility] [address] [place] [address] Dr. Neisha Araiza Sodium [Moles/Vol] 129 mmol/L Critically low 136-145 [facility] Comment on above: Performed By: #### C BC #### [facility] [address] [place] [address] Dr. Neisha Araiza Urea nitrogen [Mass/Vol] 5.0 mg/dL Critically low 7.0-18.0 [facility] Comment on above: Performed By: #### C BC #### [facility] [address] [place] [address] Dr. Neisha Araiza Urea nitrogen/Creatinine [Mass ratio] 9.8 mg/mg Normal [facility] Comment on above: Performed By: #### C BC #### [facility] [address] [place] [address] Dr. Neisha Araiza CBC AUTO DIFFon 12-11-2021 BASO # 0.0 103/ul Normal 0.0-0.1 [facility] Comment on above: Performed By: #### C BC #### [facility] [address] [place] [address] Dr. Neisha Araiza Basophils/100 WBC (Bld) 0.5 % Normal 0.2-2.0 [facility] Comment on above: Performed By: #### C BC #### [facility] [address] [place] [address] Dr. Neisha Araiza EO # 0.0 103/ul Normal 0.0-0.7 [facility] Comment on above: Performed By: #### C BC #### [facility] [address] [place] [address] Dr. Neisha Araiza Eosinophils/100 WBC (Bld) 0.2 % Critically low 0.9-7.0 [facility] Comment on above: Performed By: #### C BC #### [facility] [address] [place] [address] Dr. Neisha Araiza Erythrocyte distribution width (RBC) [Ratio] 12.4 % Normal 11.0-15.0 [facility] Comment on above: Performed By: #### C BC #### [facility] [address] [place] [address] Dr. Neisha Araiza Hematocrit (Bld) [Volume fraction] 39.3 % Normal 36.0-48.0 [facility] Comment on above: Performed By: #### C BC #### [facility] [address] [place] [address] Dr. Neisha Araiza Hemoglobin (Bld) [Mass/Vol] 13.5 g/dL Normal 12.0-16.0 [facility] Comment on above: Performed By: #### C BC #### [facility] [address] [place] [address] Dr. Neisha Araiza IG # 0.04 10e3/ul Critically high 0.00-0.03 [facility] Comment on above: Performed By: #### C BC #### [facility] [address] [place] [address] Dr. Neisha Araiza IG % 0.5 % Normal 0.0-0.5 [facility] Comment on above: Performed By: #### C BC #### [facility] [address] [place] [address] Dr. Neisha Araiza LYMPH # 1.8 103/ul Normal 1.2-3.8 [facility] Comment on above: Performed By: #### C BC #### [facility] [address] [place] [address] Dr. Neisha Araiza Lymphocytes/100 WBC (Bld) 21.7 % Normal 20.5-60.0 [facility] Comment on above: Performed By: #### C BC #### [facility] [address] [place] [address] Dr. Neisha Araiza MANUAL DIFF REQ NO Normal [facility] Comment on above: Performed By: #### C BC #### [facility] [address] [place] [address] Dr. Neisha Araiza MCH (RBC) [Entitic mass] 28.2 pg Normal 26.7-34.0 [facility] Comment on above: Performed By: #### C BC #### [facility] [address] [place] [address] Dr. Neisha Araiza MCHC (RBC) [Mass/Vol] 34.4 g/dL Normal 29.9-35.2 [facility] Comment on above: Performed By: #### C BC #### [facility] [address] [place] [address] Dr. Neisha Araiza MCV (RBC) [Entitic vol] 82.2 fL Normal 81.0-99.0 [facility] Comment on above: Performed By: #### C BC #### [facility] [address] [place] [address] Dr. Neisha Araiza MONO # 0.5 103/ul Normal 0.3-0.8 [facility] Comment on above: Performed By: #### C BC #### [facility] [address] [place] [address] Dr. Neisha Araiza Monocytes/100 WBC (Bld) 6.4 % Normal 1.7-12.0 [facility] Comment on above: Performed By: #### C BC #### [facility] [address] [address] [address] Neisha Araiza NEUT # 5.7 103/ul Normal 1.4-6.5 [facility] Comment on above: Performed By: #### C BC #### [facility] [address] [place] [address] Dr. Neisha Araiza Neutrophils/100 WBC (Bld) 70.7 % Normal 43.0-75.0 [facility] Comment on above: Performed By: #### C BC #### [facility] [address] [place] [address] Dr. Neisha Araiza Platelet mean volume (Bld) [Entitic vol] 9.4 fL Critically low 9.5-13.5 [facility] Comment on above: Performed By: #### C BC #### [facility] [address] [place] [address] Dr. Neisha Araiza PLT 250 103/ul Normal 150-450 [facility] Comment on above: Performed By: #### C BC #### [facility] [address] [place] [address] Dr. Neisha Araiza RBC 4.78 106/ul Normal 4.20-5.40 [facility] Comment on above: Performed By: #### C BC #### [facility] [address] [place] [address] Dr. Neisha Araiza WBC 8.1 103/ul Normal 4.0-11.0 [facility] Comment on above: Performed By: #### C BC #### [facility] [address] [place] [address] Dr. Neisha Araiza POINT OF CARE GLUCOSEon 11-30 Glucose [Mass/Vol] 232 mg/dL Critically high 74-[address] [facility] Comment on above: Performed By: #### L BASIA DRIVER, CMP #### [facility] [address] [place] [address] Dr. Neisha Araiza Glucose [Mass/Vol] 197 mg/dL Critically high 74-[address] [facility] Comment on above: Performed By: #### L IPA, BASIA, CMP #### [facility] [address] [place] [address] Dr. Neisha Araiza Glucose [Mass/Vol] 289 mg/dL Critically high 74-[address] [facility] Comment on above: Performed By: #### C BC #### [facility] [address] [place] [address] Dr. Neisha Araiza Glucose [Mass/Vol] 200 mg/dL Critically high 74-[address] [facility] Comment on above: Performed By: #### A CETON #### [facility] [address] [place] [address] Dr. Neisha Araiza PROF 14(COMP METB)on 022 Albumin [Mass/Vol] 2.9 g/dL Critically low 3.4-5.0 [facility] Comment on above: Performed By: #### L IPA BASIA, CMP #### [facility] [address] [place] [address] Dr. Neisha Araiza Albumin/Globulin [Mass ratio] 0.8 {ratio} Normal [facility] Comment on above: Performed By: #### L IPA BASIA, CMP #### [facility] [address] [place] [address] Dr. Neisha Araiza ALP [Catalytic activity/Vol] 90 U/L Normal 46-116 [facility] Comment on above: Performed By: #### L IPA BASIA, CMP #### [facility] [address] [place] [address] Dr. Neisha Araiza ALT [Catalytic activity/Vol] 26 U/L Normal 14-59 [facility] Comment on above: Performed By: #### L IPA, BASIA, CMP #### [facility] [address] [place] [address] Dr. Neisha Araiza Anion gap [Moles/Vol] 17.6 mmol/L Normal [facility] Comment on above: Performed By: #### L IPA, BASIA, CMP #### [facility] [address] [place] [address] Dr. Neisha Araiza AST [Catalytic activity/Vol] 19 U/L Normal 15-37 [facility] Comment on above: Performed By: #### L BASIA DRIVER, CMP #### [facility] [address] [place] [address] Dr. Neisha Araiza Bilirubin [Mass/Vol] 0.8 mg/dL Normal 0.2-1.0 [facility] Comment on above: Performed By: #### L NEISHA BASIA, CMP #### [facility] [address] [place] [address] Dr. Neisha Araiza Calcium [Mass/Vol] 7.9 mg/dL Critically low 8.5-10.1 [facility] Comment on above: Performed By: #### L BASIA DRIVER, CMP #### [facility] [address] [place] [address] Dr. Neisha Araiza Chloride [Moles/Vol] 98 mmol/L Normal 98-107 [facility] Comment on above: Performed By: #### L BASIA DRIVER, CMP #### [facility] [address] [place] [address] Dr. Neisha Araiza CO2 [Moles/Vol] 18.6 mmol/L Critically low 21.0-32.0 [facility] Comment on above: Performed By: #### L BASIA DRIVER, CMP #### [facility] [address] [place] [address] Dr. Neisha Araiza Creatinine [Mass/Vol] 0.50 mg/dL Critically low 0.55-1.02 [facility] Comment on above: Performed By: #### L BASIA DRIVER, CMP #### [facility] [address] [place] [address] Dr. Neisha Araiza EGFR-AF AUSTRIAN >60 Normal >=60 [facility] Comment on above: Performed By: #### L BASIA DRIVER, CMP #### [facility] [address] [place] [address] Dr. Neisha Araiza EGFR-NON AF AUSTRIAN >60 Normal >=60 [facility] Comment on above: Performed By: #### L BASIA DRIVER, CMP #### [facility] [address] [place] [address] Dr. Neisha Araiza Globulin (S) [Mass/Vol] 3.5 g/dL Normal [facility] Comment on above: Performed By: #### L BASIA DRIVER, CMP #### [facility] [address] [address] [address] Neisha Araiza Glucose [Mass/Vol] 195 mg/dL Critically high 74-106 [facility] Comment on above: Performed By: #### L BASIA DRIVER, CMP #### [facility] [address] [address] [address] Neisha Araiza Potassium [Moles/Vol] 3.2 mmol/L Critically low 3.5-5.1 [facility] Comment on above: Performed By: #### L BASIA DRIVER, CMP #### [facility] [address] [place] [address] Dr. Neisha Araiza Protein [Mass/Vol] 6.4 g/dL Normal 6.4-8.2 [facility] Comment on above: Performed By: #### L BASIA DRIVER, CMP #### [facility] [address] [place] [address] Dr. Neisha Araiza Sodium [Moles/Vol] 131 mmol/L Critically low 136-145 [facility] Comment on above: Performed By: #### L BASIA DRIVER, CMP #### [facility] [address] [place] [address] Dr. Neisha Araiza Urea nitrogen [Mass/Vol] 7.0 mg/dL Normal 7.0-18.0 [facility] Comment on above: Performed By: #### L BASIA DRIVER, CMP #### [facility] [address] [place] [address] Dr. Neisha Araiza Urea nitrogen/Creatinine [Mass ratio] 14.0 mg/mg Normal [facility] Comment on above: Performed By: #### L BASIA DRIVER, CMP #### [facility] [address] [place] [address] Dr. Neisha Araiza ACETONE SERUMon 12-10-2021 ACETONE SMALL Abnormal NEGATIVE [facility] Comment on above: Performed By: #### L BASIA DRIVER, CMP #### [facility] [address] [place] [address] Dr. Neisha Araiza AMYLASEon 12-10-2021 Amylase [Catalytic activity/Vol] 31 U/L Normal 25-115 [facility] Comment on above: Performed By: #### L IPA, BASIA, CMP #### [facility] [address] [place] [address] Dr. Neisha Araiza CBC AUTO DIFFon 12-10-2021 BASO # 0.0 103/ul Normal 0.0-0.1 [facility] Comment on above: Performed By: #### C BC #### [facility] [address] [place] [address] Dr. Neisha Araiza Basophils/100 WBC (Bld) 0.5 % Normal 0.2-2.0 [facility] Comment on above: Performed By: #### C BC #### [facility] [address] [place] [address] Dr. Neisha Araiza EO # 0.0 103/ul Normal 0.0-0.7 [facility] Comment on above: Performed By: #### C BC #### [facility] [address] [place] [address] Dr. Neisha Araiza Eosinophils/100 WBC (Bld) 0.0 % Critically low 0.9-7.0 [facility] Comment on above: Performed By: #### C BC #### [facility] [address] [place] [address] Dr. Neisha Araiza Erythrocyte distribution width (RBC) [Ratio] 12.5 % Normal 11.0-15.0 [facility] Comment on above: Performed By: #### C BC #### [facility] [address] [place] [address] Dr. Neisha Araiza Hematocrit (Bld) [Volume fraction] 43.3 % Normal 36.0-48.0 [facility] Comment on above: Performed By: #### C BC #### [facility] [address] [place] [address] Dr. Neisha Araiza Hemoglobin (Bld) [Mass/Vol] 15.3 g/dL Normal 12.0-16.0 [facility] Comment on above: Performed By: #### C BC #### [facility] [address] [address] [address] Neisha Araiza IG # 0.06 10e3/ul Critically high 0.00-0.03 [facility] Comment on above: Performed By: #### C BC #### [facility] [address] [place] [address] Dr. Neisha Araiza IG % 0.7 % Critically high 0.0-0.5 [facility] Comment on above: Performed By: #### C BC #### [facility] [address] [place] [address] Dr. Neisha Araiza LYMPH # 0.9 103/ul Critically low 1.2-3.8 [facility] Comment on above: Performed By: #### C BC #### [facility] [address] [place] [address] Dr. Neisha Araiza Lymphocytes/100 WBC (Bld) 10.8 % Critically low 20.5-60.0 [facility] Comment on above: Performed By: #### C BC #### [facility] [address] [place] [address] Dr. Neisha Araiza MANUAL DIFF REQ NO Normal [facility] Comment on above: Performed By: #### C BC #### [facility] [address] [place] [address] Dr. Neisha Araiza MCH (RBC) [Entitic mass] 28.4 pg Normal 26.7-34.0 [facility] Comment on above: Performed By: #### C BC #### [facility] [address] [place] [address] Dr. Neisha Araiza MCHC (RBC) [Mass/Vol] 35.3 g/dL Critically high 29.9-35.2 [facility] Comment on above: Performed By: #### C BC #### [facility] [address] [place] [address] Dr. Neisha Araiza MCV (RBC) [Entitic vol] 80.3 fL Critically low 81.0-99.0 [facility] Comment on above: Performed By: #### C BC #### [facility] [address] [address] [address] Neisha Araiza MONO # 0.5 103/ul Normal 0.3-0.8 [facility] Comment on above: Performed By: #### C BC #### [facility] [address] [address] [address] Neisha Araiza Monocytes/100 WBC (Bld) 5.7 % Normal 1.7-12.0 [facility] Comment on above: Performed By: #### C BC #### [facility] [address] [place] [address] Dr. Neisha Araiza NEUT # 7.0 103/ul Critically high 1.4-6.5 [facility] Comment on above: Performed By: #### C BC #### [facility] [address] [place] [address] Dr. Neisha Araiza Neutrophils/100 WBC (Bld) 82.3 % Critically high 43.0-75.0 [facility] Comment on above: Performed By: #### C BC #### [facility] [address] [place] [address] Dr. Neisha Araiza Platelet mean volume (Bld) [Entitic vol] 9.4 fL Critically low 9.5-13.5 [facility] Comment on above: Performed By: #### C BC #### [facility] [address] [place] [address] Dr. Neisha Araiza PLT 271 103/ul Normal 150-450 [facility] Comment on above: Performed By: #### C BC #### [facility] [address] [place] [address] Dr. Neisha Araiza RBC 5.39 106/ul Normal 4.20-5.40 [facility] Comment on above: Performed By: #### C BC #### [facility] [address] [place] [address] Dr. Neisha Araiza WBC 8.5 103/ul Normal 4.0-11.0 [facility] Comment on above: Performed By: #### C BC #### [facility] [address] [address] [address] ABD/PELVIS WO CONon [...] MATTHEW SILVER Date: 2021-12-10 14:48 Normal [facility] CULTURE URINEon 12-10-2021 CULTURE URINE Culture Observations: GREATER THAN TWO ORGANISMS PRESENT. PLEASE RESUBMIT CLEAN CATCH MID-STREAM URINE IF CLINICALLY INDICATED. Normal [facility] Comment on above: Performed By: #### A CETON #### [facility] [address] [address] [address] Neisha Araiza [facility]30 SARS-CoV-2 (COVID-19) RNA TIM+probe Ql (Unsp spec) Not detected Normal NOT DETECTED [facility] Comment on above: Result Comment: When [...] for this test is supported by the [employer] of Health and Human Service's declaration that [...] By: #### L BASIA DRIVER, CMP #### [facility] [address] [place] [address] Dr. Neisha Araiza DRUG SCREEN RAPID (URINE)on 12-10-2021 AMP Negative Normal NEGATIVE [facility] Comment on above: Performed By: #### A CETON #### [facility] [address] [place] [address] Dr. Neisha Araiza BAR Negative Normal NEGATIVE [facility] Comment on above: Performed By: #### A CETON #### [facility] [address] [place] [address] Dr. Neisha Araiza BUP Negative Normal NEGATIVE [facility] Comment on above: Performed By: #### A CETON #### [facility] [address] [place] [address] Dr. Neisha Araiza BZO Negative Normal NEGATIVE [facility] Comment on above: Performed By: #### A CETON #### [facility] [address] [place] [address] Dr. Neisha Araiza VIVEK Negative Normal NEGATIVE [facility] Comment on above: Performed By: #### A CETON #### [facility] [address] [place] [address] Dr. Neisha Araiza CUT-OFFS SEE BELOW Normal [facility] Comment on above: Result Comment: [...] ng/mL Performed By: #### A CETON #### [facility] [address] [place] [address] Dr. Neisha Araiza DRUG CUT HEADER DRUG CLASS TEST SYSTEM CUT-OFF CONCENTRATIONS ARE FOLLOWS: Normal [facility] Comment on above: Performed By: #### A CETON #### [facility] [address] [place] [address] Dr. Neisha Araiza mAMP Negative Normal NEGATIVE [facility] Comment on above: Performed By: #### A CETON #### [facility] [address] [place] [address] Dr. Neisha Araiza MTD Negative Normal NEGATIVE [facility] Comment on above: Performed By: #### A CETON #### [facility] [address] [place] [address] Dr. Neisha Araiza OPI Negative Normal NEGATIVE [facility] Comment on above: Performed By: #### A CETON #### [facility] [address] [place] [address] Dr. Neisha Araiza OXY Negative Normal NEGATIVE [facility] Comment on above: Performed By: #### A CETON #### [facility] [address] [place] [address] Dr. Neisha Araiza PCP Negative Normal NEGATIVE [facility] Comment on above: Performed By: #### A CETON #### [facility] [address] [place] [address] Dr. Neisha Araiza PPX Negative Normal NEGATIVE [facility] Comment on above: Performed By: #### A CETON #### [facility] [address] [place] [address] Dr. Neisha Araiza TCA Negative Normal NEGATIVE [facility] Comment on above: Performed By: #### A CETON #### [facility] [address] [place] [address] Dr. Neisha Araiza THC Negative Normal NEGATIVE [facility] Comment on above: Performed By: #### A CETON #### [facility] [address] [place] [address] Dr. Neisha Araiza ER URINE PROFILEon 2 Bilirubin Ql (U) Negative Normal NEGATIVE [facility] Comment on above: Performed By: #### E RUR, DRUGRPD #### [facility] [address] [place] [address] Dr. Neisha Araiza Clarity (U) CLEAR Normal CLEAR [facility] Comment on above: Performed By: #### E RUR, DRUGRPD #### [facility] [address] [place] [address] Dr. Neisha Araiza Color (U) YELLOW Normal YELLOW [facility] Comment on above: Performed By: #### E RUR, DRUGRPD #### [facility] [address] [place] [address] Dr. Neisha FERNANDEZMagnus A micrscopic examination will be performed if indicated. Normal [facility] Comment on above: Performed By: #### E RUR, DRUGRPD #### [facility] [address] [place] [address] Dr. Neisha Araiza Glucose Ql (U) 250 mg/dl Abnormal NEGATIVE [facility] Comment on above: Performed By: #### E RUR, DRUGRPD #### [facility] [address] [place] [address] Dr. Neisha Araiza Hemoglobin Ql (U) Negative Normal NEGATIVE [facility] Comment on above: Performed By: #### E RUR, DRUGRPD #### [facility] [address] [place] [address] Dr. Neisha Araiza Ketones Ql (U) 15 mg/dl Abnormal NEGATIVE [facility] Comment on above: Performed By: #### E RUR, DRUGRPD #### [facility] [address] [place] [address] Dr. Neisha Araiza LEUKOCYTES Negative Normal NEGATIVE [facility] Comment on above: Performed By: #### E RUR, DRUGRPD #### [facility] [address] [place] [address] Dr. Neisha Araiza Nitrite Ql (U) Negative Normal NEGATIVE [facility] Comment on above: Performed By: #### E RUR, DRUGRPD #### [facility] [address] [place] [address] Dr. Neisha Araiza pH (U) 6.0 [pH] Normal 5-9 [facility] Comment on above: Performed By: #### E RUR, DRUGRPD #### [facility] [address] [place] [address] Dr. Neisha Araiza SPEC GRAVITY 1.020 Normal 1.005-<=1.025 [facility] Comment on above: Performed By: #### E RUR, DRUGRPD #### [facility] [address] [place] [address] Dr. Neisha Araiza UA PROTEIN Negative Normal NEGATIVE/ TRACE [facility] Comment on above: Performed By: #### E RUR, DRUGRPD #### [facility] [address] [place] [address] Dr. Neisha Araiza UR MICRO IND NOT INDICATED Normal [facility] Comment on above: Performed By: #### E RUR, DRUGRPD #### [facility] [address] [place] [address] Dr. Neisha Araiza Urobilinogen Qn (U) 0.2 {Ankit'U}/dL Normal 0.2 - 1. 0 [facility] Comment on above: Performed By: #### E RUR, DRUGRPD #### [facility] [address] [place] [address] Dr. Neisha Araiza H PYLORI ANTIBODY IGGon 05- H. PYLORI IGG ABS 0.29 Index Value Normal 0.00-0.[address] [facility] Comment on above: Result Comment: Nega tive <0.80 Equivocal 0.80 - 0.89 Positive >0.89 Performed By: #### C BC #### [facility] [address] [place] [address] Dr. Neisha Araiza INFLUENZA A AND B AGon 12-10 INFLUANEGH SEE BELOW Normal [facility] Comment on above: Result Comment: Nega tive for Flu A protein angiten. Infection due to Flu A cannot be ruled out. Flu A angiten in the sample may be below the detection limit of the test. Performed By: #### C BC #### [facility] [address] [place] [address] Dr. Neisha Araiza INFLUBNEGH SEE BELOW Normal [facility] Comment on above: Result Comment: Nega tive for Flu B protein antigen. Infection due to Flu B cannot be ruled out. Flu B antigen in the sample may be below the detection limit of the test. Performed By: #### C BC #### [facility] [address] [place] [address] Dr. Neisha Araiza INFLUENZA A AG Negative Normal NEGATIVE SEE COMMENT [facility] Comment on above: Performed By: #### C BC #### [facility] [address] [place] [address] Dr. Neisha Araiza INFLUENZA B AG Negative Normal NEGATIVE SEE COMMENT [facility] Comment on above: Performed By: #### C BC #### [facility] [address] [place] [address] Dr. Neisha Araiza INTERNAL CONTROLS Within Normal Limits Normal Wi thin Normal Limits [facility] Comment on above: Performed By: #### C BC #### [facility] [address] [place] [address] Dr. Neisha Araiza LACTATE/LACTIC ACIDon 2021 Lactate [Moles/Vol] 0.9 mmol/L Normal 0.4-1.9 [facility] Comment on above: Performed By: #### C BC #### [facility] [address] [place] [address] Dr. Neisha Araiza Lactate [Moles/Vol] 0.8 mmol/L Normal 0.4-1.9 [facility] Comment on above: Performed By: #### C BC #### [facility] [address] [place] [address] Dr. Neisha Araiza LIPASEon 12-10-2021 Lipase [Catalytic activity/Vol] 146.0 U/L Normal 73.0-393.0 [facility] Comment on above: Performed By: #### L BASIA DRIVER, CMP #### [facility] [address] [place] [address] Dr. Neisha Araiza POINT OF CARE GLUCOSEon 11-30 Glucose [Mass/Vol] 222 mg/dL Critically high 74-106 [facility] Comment on above: Performed By: #### C BC #### [facility] [address] [place] [address] Dr. Neisha Araiza PREG HCG QUALon 12-10-2021 , QUAL Negative Normal NEGATIVE [facility] Comment on above: Performed By: #### L BASIA DRIVER, CMP #### [facility] [address] [place] [address] Dr. Neisha Araiza PROF 14(COMP METB)on 022 Albumin [Mass/Vol] 3.7 g/dL Normal 3.4-5.0 [facility] Comment on above: Performed By: #### L BASIA DRIVER, CMP #### [facility] [address] [place] [address] Dr. Neisha Araiza Albumin/Globulin [Mass ratio] 0.9 {ratio} Normal [facility] Comment on above: Performed By: #### L NEISHA BASIA, CMP #### [facility] [address] [place] [address] Dr. Neisha Araiza ALP [Catalytic activity/Vol] 118 U/L Critically high 46-116 [facility] Comment on above: Performed By: #### L NEISHA BASIA, CMP #### [facility] [address] [place] [address] Dr. Neisha Araiza ALT [Catalytic activity/Vol] 36 U/L Normal 14-59 [facility] Comment on above: Performed By: #### L IPA BASIA, CMP #### [facility] [address] [place] [address] Dr. Neisha Araiza Anion gap [Moles/Vol] 17.8 mmol/L Normal Th e [facility] Comment on above: Performed By: #### L BASIA DRIVER, CMP #### [facility] [address] [address] [address] Neisha Araiza AST [Catalytic activity/Vol] 22 U/L Normal 15-37 [facility] Comment on above: Performed By: #### L BASIA DRIVER, CMP #### [facility] [address] [place] [address] Dr. Neisha Araiza Bilirubin [Mass/Vol] 0.9 mg/dL Normal 0.2-1.0 [facility] Comment on above: Performed By: #### L BASIA DRIVER, CMP #### [facility] [address] [place] [address] Dr. Neisha Araiza Calcium [Mass/Vol] 8.8 mg/dL Normal 8.5-10.1 [facility] Comment on above: Performed By: #### L BASIA DRIVER, CMP #### [facility] [address] [place] [address] Dr. Neisha Araiza Chloride [Moles/Vol] 99 mmol/L Normal 98-107 [facility] Comment on above: Performed By: #### L BASIA DRIVER, CMP #### [facility] [address] [place] [address] Dr. Neisha Araiza CO2 [Moles/Vol] 19.6 mmol/L Critically low 21.0-32.0 [facility] Comment on above: Performed By: #### L BASIA DRIVER, CMP #### [facility] [address] [place] [address] Dr. Neisha Araiza Creatinine [Mass/Vol] 0.52 mg/dL Critically low 0.55-1.02 [facility] Comment on above: Performed By: #### L BASIA DRIVER, CMP #### [facility] [address] [place] [address] Dr. Neisha Araiza EGFR-AF AUSTRIAN >60 Normal >=60 [facility] Comment on above: Performed By: #### L BASIA DRIVER, CMP #### [facility] [address] [place] [address] Dr. Neisha Araiza EGFR-NON AF AUSTRIAN >60 Normal >=60 [facility] Comment on above: Performed By: #### L BASIA DRIVER, CMP #### [facility] [address] [place] [address] Dr. Neisha Araiza Globulin (S) [Mass/Vol] 4.2 g/dL Normal [facility] Comment on above: Performed By: #### L BASIA DRIVER, CMP #### [facility] [address] [place] [address] Dr. Neisha Araiza Glucose [Mass/Vol] 172 mg/dL Critically high 74-106 [facility] Comment on above: Performed By: #### L BASIA DRIVER, CMP #### [facility] [address] [place] [address] Dr. Neisha Araiza Potassium [Moles/Vol] 3.4 mmol/L Critically low 3.5-5.1 [facility] Comment on above: Performed By: #### L BASIA DRIVER, CMP #### [facility] [address] [place] [address] Dr. Neisha Araiza Protein [Mass/Vol] 7.9 g/dL Normal 6.4-8.2 [facility] Comment on above: Performed By: #### L BASIA DRIVER, CMP #### [facility] [address] [place] [address] Dr. Neisha Araiza Sodium [Moles/Vol] 133 mmol/L Critically low 136-145 [facility] Comment on above: Performed By: #### L BASIA DRIVER, CMP #### [facility] [address] [place] [address] Dr. Neisha Araiza Urea nitrogen [Mass/Vol] 11.0 mg/dL Normal 7.0-18.0 [facility] Comment on above: Performed By: #### L BASIA DRIVER, CMP #### [facility] [address] [place] [address] Dr. Neisha Araiza Urea nitrogen/Creatinine [Mass ratio] 21.2 mg/mg Normal [facility] Comment on above: Performed By: #### L BASIA DRIVER, CMP #### [facility] [address] [place] [address] Dr. Neisha Araiza TSHon 12-10-2021 TSH 0.594 uIU/mL Normal 0.358-3.740 [facility] Comment on above: Performed By: #### L BASIA DRIVER, CMP #### [facility] [address] [place] [address] Dr. Neisha Araiza TSH RANGE SEE BELOW Normal [facility] Comment on above: Result Comment: <0.3 4 UIU/ml HYPERTHYROID 0.34-5.60 UIU/ml EUTHYROID >5.60 UIU/ml HYPOTHYROID Performed By: #### L BASIA DRIVER, CMP #### [facility] [address] [place] [address] Dr. Neisha Araiza CBC AUTO DIFFon 12-09-2021 BASO # 0.0 103/ul Normal 0.0-0.1 [facility] Comment on above: Performed By: #### L BASIA DRIVER, CMP #### [facility] [address] [place] [address] Dr. Neisha Araiza Basophils/100 WBC (Bld) 0.4 % Normal 0.2-2.0 [facility] Comment on above: Performed By: #### L BASIA DRIVER, CMP #### [facility] [address] [place] [address] Dr. Neisha Araiza EO # 0.0 103/ul Normal 0.0-0.7 [facility] Comment on above: Performed By: #### L BASIA DRIVER, CMP #### [facility] [address] [place] [address] Dr. Neisha Araiza Eosinophils/100 WBC (Bld) 0.1 % Critically low 0.9-7.0 [facility] Comment on above: Performed By: #### L BASIA DRIVER, CMP #### [facility] [address] [place] [address] Dr. Neisha Araiza Erythrocyte distribution width (RBC) [Ratio] 12.8 % Normal 11.0-15.0 [facility] Comment on above: Performed By: #### L BASIA DRIVER, CMP #### [facility] [address] [address] [address] Neisha Araiza Hematocrit (Bld) [Volume fraction] 41.1 % Normal 36.0-48.0 [facility] Comment on above: Performed By: #### L BASIA DRIVER, CMP #### [facility] [address] [address] [address] Neisha Araiza Hemoglobin (Bld) [Mass/Vol] 13.8 g/dL Normal 12.0-16.0 [facility] Comment on above: Performed By: #### L BASIA DRIVER, CMP #### [facility] [address] [place] [address] Dr. Neisha Araiza IG # 0.05 10e3/ul Critically high 0.00-0.03 [facility] Comment on above: Performed By: #### L BASIA DRIVER, CMP #### [facility] [address] [place] [address] Dr. Neisha Araiza IG % 0.5 % Normal 0.0-0.5 [facility] Comment on above: Performed By: #### L BASIA DRIVER, CMP #### [facility] [address] [place] [address] Dr. Neisha Araiza LYMPH # 2.1 103/ul Normal 1.2-3.8 [facility] Comment on above: Performed By: #### L BASIA DRIVER, CMP #### [facility] [address] [place] [address] Dr. Neisha Araiza Lymphocytes/100 WBC (Bld) 22.8 % Normal 20.5-60.0 [facility] Comment on above: Performed By: #### L BASIA DRIVER, CMP #### [facility] [address] [place] [address] Dr. Neisha Araiza MANUAL DIFF REQ NO Normal [facility] Comment on above: Performed By: #### L BASIA DRIVER, CMP #### [facility] [address] [place] [address] Dr. Neisha Araiza MCH (RBC) [Entitic mass] 28.3 pg Normal 26.7-34.0 [facility] Comment on above: Performed By: #### L IPA, BASIA, CMP #### [facility] [address] [place] [address] Dr. Neisha Araiza MCHC (RBC) [Mass/Vol] 33.6 g/dL Normal 29.9-35.2 [facility] Comment on above: Performed By: #### L IPA BASIA, CMP #### [facility] [address] [place] [address] Dr. Neisha Araiza MCV (RBC) [Entitic vol] 84.4 fL Normal 81.0-99.0 [facility] Comment on above: Performed By: #### L IPA BASIA, CMP #### [facility] [address] [place] [address] Dr. Neisha Araiza MONO # 0.6 103/ul Normal 0.3-0.8 [facility] Comment on above: Performed By: #### L NEISHA BASIA, CMP #### [facility] [address] [place] [address] Dr. Neisha Araiza Monocytes/100 WBC (Bld) 6.0 % Normal 1.7-12.0 [facility] Comment on above: Performed By: #### L NEISHA BASIA, CMP #### [facility] [address] [place] [address] Dr. Neisha Araiza NEUT # 6.4 103/ul Normal 1.4-6.5 [facility] Comment on above: Performed By: #### L NEISHA BASIA, CMP #### [facility] [address] [place] [address] Dr. Neisha Araiza Neutrophils/100 WBC (Bld) 70.2 % Normal 43.0-75.0 [facility] Comment on above: Performed By: #### L IPA BASIA, CMP #### [facility] [address] [place] [address] Dr. Neisha Araiza Platelet mean volume (Bld) [Entitic vol] 9.8 fL Normal 9.5-13.5 [facility] Comment on above: Performed By: #### L IPA BASIA, CMP #### [facility] [address] [place] [address] Dr. Neisha Araiza PLT 258 103/ul Normal 150-450 [facility] Comment on above: Performed By: #### L BASIA DRIVER, CMP #### [facility] [address] [address] [address] Neisha Araiza RBC 4.87 106/ul Normal 4.20-5.40 [facility] Comment on above: Performed By: #### L BASIA DRIVER, CMP #### [facility] [address] [address] [address] Neisha Araiza WBC 9.1 103/ul Normal 4.0-11.0 [facility] Comment on above: Performed By: #### L BASIA DRIVER, CMP #### [facility] [address] [place] [address] Dr. Neisha Araiza POINT OF CARE GLUCOSEon 11-30 0-2021 Glucose [Mass/Vol] 222 mg/dL Critically high 74-[address] [facility] Comment on above: Performed By: #### C BC #### [facility] [address] [place] [address] Dr. Neisha Araiza Glucose [Mass/Vol] 225 mg/dL Critically high 74-[address] [facility] Comment on above: Performed By: #### C BC #### [facility] [address] [place] [address] Dr. Neisha Araiza PROF 14(COMP METB)on 022 Albumin [Mass/Vol] 3.1 g/dL Critically low 3.4-5.0 [facility] Comment on above: Performed By: #### C BC #### [facility] [address] [place] [address] Dr. Neisha Araiza Albumin/Globulin [Mass ratio] 0.9 {ratio} Normal [facility] Comment on above: Performed By: #### C BC #### [facility] [address] [place] [address] Dr. Neisha Araiza ALP [Catalytic activity/Vol] 99 U/L Normal 46-116 [facility] Comment on above: Performed By: #### C BC #### [facility] [address] [address] [address] Neisha Araiza ALT [Catalytic activity/Vol] 28 U/L Normal 14-59 [facility] Comment on above: Performed By: #### C BC #### [facility] [address] [address] [address] Neisha Araiza Anion gap [Moles/Vol] 15.0 mmol/L Normal [facility] Comment on above: Performed By: #### C BC #### [facility] [address] [address] [address] Neisha Araiza AST [Catalytic activity/Vol] 12 U/L Critically low 15-37 [facility] Comment on above: Performed By: #### C BC #### [facility] [address] [place] [address] Dr. Neisha Araiza Bilirubin [Mass/Vol] 1.3 mg/dL Critically high 0.2-1.0 [facility] Comment on above: Performed By: #### C BC #### [facility] [address] [place] [address] Dr. Neisha Araiza Calcium [Mass/Vol] 7.5 mg/dL Critically low 8.5-10.1 [facility] Comment on above: Performed By: #### C BC #### [facility] [address] [place] [address] Dr. Neisha Araiza Chloride [Moles/Vol] 101 mmol/L Normal 98-107 [facility] Comment on above: Performed By: #### C BC #### [facility] [address] [place] [address] Dr. Neisha Araiza CO2 [Moles/Vol] 14.9 mmol/L Critically low 21.0-32.0 [facility] Comment on above: Performed By: #### C BC #### [facility] [address] [place] [address] Dr. Neisha Araiza Creatinine [Mass/Vol] 0.52 mg/dL Critically low 0.55-1.02 [facility] Comment on above: Performed By: #### C BC #### [facility] [address] [place] [address] Dr. Neisha Araiza EGFR-AF AUSTRIAN >60 Normal >=60 [facility] Comment on above: Performed By: #### C BC #### [facility] [address] [address] [address] Neisha Araiza EGFR-NON AF AUSTRIAN >60 Normal >=60 [facility] Comment on above: Performed By: #### C BC #### [facility] [address] [address] [address] Neisha Araiza Globulin (S) [Mass/Vol] 3.6 g/dL Normal [facility] Comment on above: Performed By: #### C BC #### [facility] [address] [address] [address] Neisha Araiza Glucose [Mass/Vol] 232 mg/dL Critically high 74-106 [facility] Comment on above: Performed By: #### C BC #### [facility] [address] [address] [address] Neisha Araiza Potassium [Moles/Vol] 3.9 mmol/L Normal 3.5-5.1 [facility] Comment on above: Performed By: #### C BC #### [facility] [address] [address] [address] Neisha Araiza Protein [Mass/Vol] 6.7 g/dL Normal 6.4-8.2 [facility] Comment on above: Performed By: #### C BC #### [facility] [address] [address] [address] Neisha Araiza Sodium [Moles/Vol] 127 mmol/L Critically low 136-145 [facility] Comment on above: Performed By: #### C BC #### [facility] [address] [address] [address] Neisha Araiza Urea nitrogen [Mass/Vol] 9.0 mg/dL Normal 7.0-18.0 [facility] Comment on above: Performed By: #### C BC #### [facility] [address] [address] [address] Neisha Araiza Urea nitrogen/Creatinine [Mass ratio] 17.3 mg/mg Normal [facility] Comment on above: Performed By: #### C BC #### [facility] [address] [address] [address] Neisha Araiza UA RANDOM W/MICROSCOPICon BACTERIA NONE SEEN Normal NONE SEEN [facility] Comment on above: Performed By: #### U AMIC #### [facility] [address] [address] [address] Neisha Araiza Bilirubin Ql (U) Negative Normal NEGATIVE [facility] Comment on above: Performed By: #### U AMIC #### [facility] [address] [address] [address] Neisha Araiza CAST NONE SEEN Normal NONE SEEN [facility] Comment on above: Performed By: #### U AMIC #### [facility] [address] [place] [address] Dr. Neisha Araiza Clarity (U) CLEAR Normal CLEAR [facility] Comment on above: Performed By: #### U AMIC #### [facility] [address] [address] [address] Neisha Araiza Color (U) LT. YELLOW Normal YELLOW [facility] Comment on above: Performed By: #### U AMIC #### [facility] [address] [address] [address] Neisah Araiza Crystals LM Nom (Urine sed) NONE SEEN Normal NONE SEEN [facility] Comment on above: Performed By: #### U AMIC #### [facility] [address] [address] [address] Neisha Araiza Epithelial cells LM Ql (Urine sed) FEW Abnormal NONE SEEN /RARE [facility] Comment on above: Performed By: #### U AMIC #### [facility] [address] [address] [address] Neisha Araiza Glucose Ql (U) 500 mg/dl Abnormal NEGATIVE [facility] Comment on above: Performed By: #### U AMIC #### [facility] [address] [place] [address] Dr. Neisha Araiza Hemoglobin Ql (U) Negative Normal NEGATIVE [facility] Comment on above: Performed By: #### U AMIC #### [facility] [address] [address] [address] Neisha Araiza Ketones Ql (U) 80 mg/dl Abnormal NEGATIVE [facility] Comment on above: Performed By: #### U AMIC #### [facility] [address] [address] [address] Neisha Araiza LEUKOCYTES Negative Normal NEGATIVE The [facility] Comment on above: Performed By: #### U AMIC #### [facility] [address] [address] [address] Neisha Araiza MUCOUS NONE SEEN Normal NONE SEEN The [facility] Comment on above: Performed By: #### U AMIC #### [facility] [address] [place] [address] Dr. Neisha Araiza Nitrite Ql (U) Negative Normal NEGATIVE [facility] Comment on above: Performed By: #### U AMIC #### [facility] [address] [place] [address] Dr. Neisha Araiza pH (U) 6.0 [pH] Normal 5-9 [facility] Comment on above: Performed By: #### U AMIC #### [facility] [address] [place] [address] Dr. Neisha Araiza RBC NONE SEEN Abnormal 0-2 [facility] Comment on above: Performed By: #### U AMIC #### [facility] [address] [place] [address] Dr. Neisha Araiza SPEC GRAVITY 1.030 Abnormal 1.005-<=1.025 [facility] Comment on above: Performed By: #### U AMIC #### [facility] [address] [place] [address] Dr. Neisha Araiza UA PROTEIN TRACE Normal NEGATIVE/ TRACE The [facility] Comment on above: Performed By: #### U AMIC #### [facility] [address] [place] [address] Dr. Neisha Araiza Urobilinogen Qn (U) 0.2 {Ankit'U}/dL Normal 0.2 - 1. 0 [facility] Comment on above: Performed By: #### U AMIC #### [facility] [address] [place] [address] Dr. Neisha Araiza WBC 0-2 Abnormal NONE SEEN The [facility] Comment on above: Performed By: #### U AMIC #### [facility] [address] [place] [address] Dr. Neisha Araiza AMYLASEon 12-08-2021 Amylase [Catalytic activity/Vol] 31 U/L Normal 25-115 [facility] Comment on above: Performed By: #### L IPA, BASIA, CMP #### [facility] [address] [place] [address] Dr. Neisha Araiza CBC AUTO DIFFon 12-08-2021 BASO # 0.0 103/ul Normal 0.0-0.1 [facility] Comment on above: Performed By: #### C BC #### [facility] [address] [place] [address] Dr. Neisha Araiza Basophils/100 WBC (Bld) 0.4 % Normal 0.2-2.0 [facility] Comment on above: Performed By: #### C BC #### [facility] [address] [place] [address] Dr. Neisha Araiza EO # 0.0 103/ul Normal 0.0-0.7 [facility] Comment on above: Performed By: #### C BC #### [facility] [address] [place] [address] Dr. Neisha Araiza Eosinophils/100 WBC (Bld) 0.0 % Critically low 0.9-7.0 [facility] Comment on above: Performed By: #### C BC #### [facility] [address] [place] [address] Dr. Neisha Araiza Erythrocyte distribution width (RBC) [Ratio] 12.9 % Normal 11.0-15.0 [facility] Comment on above: Performed By: #### C BC #### [facility] [address] [place] [address] Dr. Neisha Araiza Hematocrit (Bld) [Volume fraction] 43.8 % Normal 36.0-48.0 [facility] Comment on above: Performed By: #### C BC #### [facility] [address] [address] [address] Neisha Araiza Hemoglobin (Bld) [Mass/Vol] 14.7 g/dL Normal 12.0-16.0 [facility] Comment on above: Performed By: #### C BC #### [facility] [address] [place] [address] Dr. Neisha Araiza IG # 0.06 10e3/ul Critically high 0.00-0.03 [facility] Comment on above: Performed By: #### C BC #### [facility] [address] [place] [address] Dr. Neisha Araiza IG % 0.6 % Critically high 0.0-0.5 [facility] Comment on above: Performed By: #### C BC #### [facility] [address] [place] [address] Dr. Neisha Araiza LYMPH # 1.4 103/ul Normal 1.2-3.8 [facility] Comment on above: Performed By: #### C BC #### [facility] [address] [place] [address] Dr. Neisha Araiza Lymphocytes/100 WBC (Bld) 12.7 % Critically low 20.5-60.0 [facility] Comment on above: Performed By: #### C BC #### [facility] [address] [place] [address] Dr. Neisha Araiza MANUAL DIFF REQ NO Normal [facility] Comment on above: Performed By: #### C BC #### [facility] [address] [place] [address] Dr. Neisha Araiza MCH (RBC) [Entitic mass] 28.2 pg Normal 26.7-34.0 [facility] Comment on above: Performed By: #### C BC #### [facility] [address] [place] [address] Dr. Neisha Araiza MCHC (RBC) [Mass/Vol] 33.6 g/dL Normal 29.9-35.2 [facility] Comment on above: Performed By: #### C BC #### [facility] [address] [address] [address] Neisha Araiza MCV (RBC) [Entitic vol] 84.1 fL Normal 81.0-99.0 [facility] Comment on above: Performed By: #### C BC #### [facility] [address] [address] [address] Neisha Araiza MONO # 0.5 103/ul Normal 0.3-0.8 [facility] Comment on above: Performed By: #### C BC #### [facility] [address] [place] [address] Dr. Neisha Araiza Monocytes/100 WBC (Bld) 4.7 % Normal 1.7-12.0 [facility] Comment on above: Performed By: #### C BC #### [facility] [address] [place] [address] Dr. Neisha Araiza NEUT # 8.8 103/ul Critically high 1.4-6.5 [facility] Comment on above: Performed By: #### C BC #### [facility] [address] [place] [address] Dr. Neisha Araiza Neutrophils/100 WBC (Bld) 81.6 % Critically high 43.0-75.0 [facility] Comment on above: Performed By: #### C BC #### [facility] [address] [place] [address] Dr. Neisha Araiza Platelet mean volume (Bld) [Entitic vol] 10.0 fL Normal 9.5-13.5 [facility] Comment on above: Performed By: #### C BC #### [facility] [address] [place] [address] Dr. Neisha Araiza PLT 293 103/ul Normal 150-450 [facility] Comment on above: Performed By: #### C BC #### [facility] [address] [place] [address] Dr. Neisha Araiza RBC 5.21 106/ul Normal 4.20-5.40 [facility] Comment on above: Performed By: #### C BC #### [facility] [address] [place] [address] Dr. Neisha Araiza WBC 10.7 103/ul Normal 4.0-11.0 [facility] Comment on above: Performed By: #### C BC #### [facility] [address] [place] [address] Dr. Neisha Araiza [facility]on SARS-CoV-2 (COVID-19) RNA TIM+probe Ql (Unsp spec) Not detected Normal NOT DETECTED The [facility] Comment on above: Result Comment: When [...] for this test is supported by the [place] of Health and Human Service's declaration that [...] used). Performed By: #### C BC #### [facility] [address] [place] [address] Dr. Neisha Araiza LACTATE/LACTIC ACIDon 2021 Lactate [Moles/Vol] 1.5 mmol/L Normal 0.4-1.9 [facility] Comment on above: Performed By: #### C BC #### [facility] [address] [place] [address] Dr. Neisha Araiza LIPASEon 12-08-2021 Lipase [Catalytic activity/Vol] 149.0 U/L Normal 73.0-393.0 [facility] Comment on above: Performed By: #### L IPA, BASIA, CMP #### [facility] [address] [place] [address] Dr. Neisha Araiza POINT OF CARE GLUCOSEon Glucose [Mass/Vol] 282 mg/dL Critically high 74-[address] [facility] Comment on above: Performed By: #### A CETON #### [facility] [address] [address] [address] Neisha Araiza PROF 14(COMP METB)on 022 Albumin [Mass/Vol] 3.6 g/dL Normal 3.4-5.0 [facility] Comment on above: Performed By: #### L BASIA DRIVER, CMP #### [facility] [address] [address] [address] Neisha Araiza Albumin/Globulin [Mass ratio] 0.9 {ratio} Normal [facility] Comment on above: Performed By: #### L NEISHA BASIA, CMP #### [facility] [address] [place] [address] Dr. Neisha Araiza ALP [Catalytic activity/Vol] 105 U/L Normal 46-116 [facility] Comment on above: Performed By: #### L NEISHA BASIA, CMP #### [facility] [address] [address] [address] Neisha Araiza ALT [Catalytic activity/Vol] 32 U/L Normal 14-59 [facility] Comment on above: Performed By: #### L NEISHA BASIA, CMP #### [facility] [address] [address] [address] Neisha Araiza Anion gap [Moles/Vol] 23.2 mmol/L Normal [facility] Comment on above: Performed By: #### L NEISHA BASIA, CMP #### [facility] [address] [address] [address] Neisha Araiza AST [Catalytic activity/Vol] 15 U/L Normal 15-37 [facility] Comment on above: Performed By: #### L IPA BASIA, CMP #### [facility] [address] [address] [address] Neisha Araiza Bilirubin [Mass/Vol] 1.3 mg/dL Critically high 0.2-1.0 [facility] Comment on above: Performed By: #### L IPA BASIA, CMP #### [facility] [address] [address] [address] Neisha Araiza Calcium [Mass/Vol] 8.0 mg/dL Critically low 8.5-10.1 [facility] Comment on above: Performed By: #### L IPA BASIA, CMP #### [facility] [address] [address] [address] Neisha Araiza Chloride [Moles/Vol] 96 mmol/L Critically low 98-107 [facility] Comment on above: Performed By: #### L IPA BASIA, CMP #### [facility] [address] [address] [address] Neisha Araiza CO2 [Moles/Vol] 14.8 mmol/L Critically low 21.0-32.0 [facility] Comment on above: Performed By: #### L IPA BASIA, CMP #### [facility] [address] [place] [address] Dr. Neisha Araiza Creatinine [Mass/Vol] 0.62 mg/dL Normal 0.55-1.02 [facility] Comment on above: Performed By: #### L BASIA DRIVER, CMP #### [facility] [address] [place] [address] Dr. Neisha Araiza EGFR-AF AUSTRIAN >60 Normal >=60 [facility] Comment on above: Performed By: #### L NEISHA BASIA, CMP #### [facility] [address] [place] [address] Dr. Neisha Araiza EGFR-NON AF AUSTRIAN >60 Normal >=60 [facility] Comment on above: Performed By: #### L IPA BASIA, CMP #### [facility] [address] [place] [address] Dr. Neisha Araiza Globulin (S) [Mass/Vol] 4.2 g/dL Normal [facility] Comment on above: Performed By: #### L IPA BASIA, CMP #### [facility] [address] [place] [address] Dr. Neisha Araiza Glucose [Mass/Vol] 285 mg/dL Critically high 74-[address] [facility] Comment on above: Performed By: #### L BASIA DRIVER, CMP #### [facility] [address] [address] [address] Neisha Araiza Potassium [Moles/Vol] 4.0 mmol/L Normal 3.5-5.1 [facility] Comment on above: Performed By: #### L BASIA DRIVER, CMP #### [facility] [address] [place] [address] Dr. Neisha Araiza Protein [Mass/Vol] 7.8 g/dL Normal 6.4-8.2 [facility] Comment on above: Performed By: #### L BASIA DRIVER, CMP #### [facility] [address] [place] [address] Dr. Neisha Araiza Sodium [Moles/Vol] 130 mmol/L Critically low 136-145 [facility] Comment on above: Performed By: #### L BASIA DRIVER, CMP #### [facility] [address] [place] [address] Dr. Neisha Araiza Urea nitrogen [Mass/Vol] 12.0 mg/dL Normal 7.0-18.0 [facility] Comment on above: Performed By: #### L BASIA DRIVER, CMP #### [facility] [address] [place] [address] Dr. Neisha Araiza Urea nitrogen/Creatinine [Mass ratio] 19.4 mg/mg Normal [facility] Comment on above: Performed By: #### L BASIA DRIVER, CMP #### [facility] [address] [place] [address] Dr. Neisha Araiza AMYLASEon 12-07-2021 Amylase [Catalytic activity/Vol] 20 U/L Critically low 25-115 [facility] Comment on above: Performed By: #### A CETON #### [facility] [address] [place] [address] Dr. Neisha Araiza BILIRUBIN CONJUGATED (DIRECT )on 12-07-2021 BILI, CONJUGATED 0.2 mg/dL Normal 0.0-0.2 [facility] Comment on above: Performed By: #### C BC #### [facility] [address] [place] [address] Dr. Neisha Araiza CBC AUTO DIFFon 12-07-2021 BASO # 0.0 103/ul Normal 0.0-0.1 [facility] Comment on above: Performed By: #### L IPABASIA, CMP #### [facility] [address] [place] [address] Dr. Neisha Araiza Basophils/100 WBC (Bld) 0.3 % Normal 0.2-2.0 [facility] Comment on above: Performed By: #### L IPA BASIA, CMP #### [facility] [address] [place] [address] Dr. Neisha Araiza EO # 0.0 103/ul Normal 0.0-0.7 [facility] Comment on above: Performed By: #### L NEISHA BASIA, CMP #### [facility] [address] [place] [address] Dr. Neisha Araiza Eosinophils/100 WBC (Bld) 0.0 % Critically low 0.9-7.0 [facility] Comment on above: Performed By: #### L BASIA DRIVER, CMP #### [facility] [address] [place] [address] Dr. Neisha Araiza Erythrocyte distribution width (RBC) [Ratio] 12.7 % Normal 11.0-15.0 [facility] Comment on above: Performed By: #### L BASIA DRIVER, CMP #### [facility] [address] [place] [address] Dr. Neisha Araiza Hematocrit (Bld) [Volume fraction] 44.9 % Normal 36.0-48.0 [facility] Comment on above: Performed By: #### L BASIA DRIVER, CMP #### [facility] [address] [place] [address] Dr. Neisha Araiza Hemoglobin (Bld) [Mass/Vol] 15.4 g/dL Normal 12.0-16.0 [facility] Comment on above: Performed By: #### L IPA BASIA, CMP #### [facility] [address] [place] [address] Dr. Neisha Araiza IG # 0.03 10e3/ul Normal 0.00-0.03 [facility] Comment on above: Performed By: #### L BASIA DRIVER, CMP #### [facility] [address] [place] [address] Dr. Neisha Araiza IG % 0.3 % Normal 0.0-0.5 [facility] Comment on above: Performed By: #### L BASIA DRIVER, CMP #### [facility] [address] [place] [address] Dr. Neisha Araiaz LYMPH # 1.2 103/ul Normal 1.2-3.8 [facility] Comment on above: Performed By: #### L BASIA DRIVER, CMP #### [facility] [address] [place] [address] Dr. Neisha Araiza Lymphocytes/100 WBC (Bld) 12.2 % Critically low 20.5-60.0 [facility] Comment on above: Performed By: #### L BASIA DRIVER, CMP #### [facility] [address] [place] [address] Dr. Neisha Araiza MANUAL DIFF REQ NO Normal [facility] Comment on above: Performed By: #### L BASIA DRIVER, CMP #### [facility] [address] [place] [address] Dr. Neisha Araiza MCH (RBC) [Entitic mass] 28.3 pg Normal 26.7-34.0 [facility] Comment on above: Performed By: #### L BASIA DRIVER, CMP #### [facility] [address] [place] [address] Dr. Neisha Araiza MCHC (RBC) [Mass/Vol] 34.3 g/dL Normal 29.9-35.2 [facility] Comment on above: Performed By: #### L BASIA DRIVER, CMP #### [facility] [address] [place] [address] Dr. Neisha Araiza MCV (RBC) [Entitic vol] 82.5 fL Normal 81.0-99.0 [facility] Comment on above: Performed By: #### L BASIA DRIVER, CMP #### [facility] [address] [place] [address] Dr. Neisha Araiza MONO # 0.3 103/ul Normal 0.3-0.8 [facility] Comment on above: Performed By: #### L BASIA DRIVER, CMP #### [facility] [address] [address] [address] Neisha Araiza Monocytes/100 WBC (Bld) 3.1 % Normal 1.7-12.0 [facility] Comment on above: Performed By: #### L BASIA DRIVER, CMP #### [facility] [address] [address] [address] Neisha Araiza NEUT # 8.1 103/ul Critically high 1.4-6.5 [facility] Comment on above: Performed By: #### L BASIA DRIVER, CMP #### [facility] [address] [place] [address] Dr. Neisha Araiza Neutrophils/100 WBC (Bld) 84.1 % Critically high 43.0-75.0 [facility] Comment on above: Performed By: #### L BASIA DRIVER, CMP #### [facility] [address] [address] [address] Neisha Araiza Platelet mean volume (Bld) [Entitic vol] 9.8 fL Normal 9.5-13.5 [facility] Comment on above: Performed By: #### L BASIA DRIVER, CMP #### [facility] [address] [place] [address] Dr. Neisha Araiza PLT 263 103/ul Normal 150-450 [facility] Comment on above: Performed By: #### L BASIA DRIVER, CMP #### [facility] [address] [address] [address] Neisha Araiza RBC 5.44 106/ul Critically high 4.20-5.40 [facility] Comment on above: Performed By: #### L BASIA DRIVER, CMP #### [facility] [address] [address] [address] Neisha Araiza WBC 9.6 103/ul Normal 4.0-11.0 [facility] Comment on above: Performed By: #### L IPA, BASIA, CMP #### [facility] [address] [place] [address] Dr. Niesha Araiza LIPASEon 12-07-2021 Lipase [Catalytic activity/Vol] 73.0 U/L Normal 73.0-393.0 [facility] Comment on above: Performed By: #### A CETON #### [facility] [address] [place] [address] Dr. Neisha Araiza PROF 14(COMP METB)on 022 Albumin [Mass/Vol] 3.8 g/dL Normal 3.4-5.0 [facility] Comment on above: Performed By: #### A CETON #### [facility] [address] [place] [address] Dr. Neisha Araiza Albumin/Globulin [Mass ratio] 0.9 {ratio} Normal [facility] Comment on above: Performed By: #### A CETON #### [facility] [address] [place] [address] Dr. Neisha Araiza ALP [Catalytic activity/Vol] 120 U/L Critically high 46-116 [facility] Comment on above: Performed By: #### A CETON #### [facility] [address] [place] [address] Dr. Neisha Araiza ALT [Catalytic activity/Vol] 34 U/L Normal 14-59 [facility] Comment on above: Performed By: #### A CETON #### [facility] [address] [place] [address] Dr. Neisha Araiza Anion gap [Moles/Vol] 20.0 mmol/L Normal [facility] Comment on above: Performed By: #### A CETON #### [facility] [address] [place] [address] Dr. Neisha Araiza AST [Catalytic activity/Vol] 18 U/L Normal 15-37 [facility] Comment on above: Performed By: #### A CETON #### [facility] [address] [place] [address] Dr. Neisha Araiza Bilirubin [Mass/Vol] 1.1 mg/dL Critically high 0.2-1.0 [facility] Comment on above: Performed By: #### A CETON #### [facility] [address] [address] [address] Neisha Araiza Calcium [Mass/Vol] 8.5 mg/dL Normal 8.5-10.1 [facility] Comment on above: Performed By: #### A CETON #### [facility] [address] [address] [address] Neisha Araiza Chloride [Moles/Vol] 94 mmol/L Critically low 98-107 [facility] Comment on above: Performed By: #### A CETON #### [facility] [address] [address] [address] Neisha Araiza CO2 [Moles/Vol] 18.9 mmol/L Critically low 21.0-32.0 [facility] Comment on above: Performed By: #### A CETON #### [facility] [address] [address] [address] Neisha Araiza Creatinine [Mass/Vol] 0.59 mg/dL Normal 0.55-1.02 [facility] Comment on above: Performed By: #### A CETON #### [facility] [address] [address] [address] Neisha Araiza EGFR-AF AUSTRIAN >60 Normal >=60 [facility] Comment on above: Performed By: #### A CETON #### [facility] [address] [address] [address] Neisha Araiza EGFR-NON AF AUSTRIAN >60 Normal >=60 [facility] Comment on above: Performed By: #### A CETON #### [facility] [address] [address] [address] Neisha Araiza Globulin (S) [Mass/Vol] 4.1 g/dL Normal [facility] Comment on above: Performed By: #### A CETON #### [facility] [address] [address] [address] Neisha Araiza Glucose [Mass/Vol] 322 mg/dL Critically high 74-[address] [facility] Comment on above: Performed By: #### A CETON #### [facility] [address] [address] [address] Neihsa Araiza Potassium [Moles/Vol] 3.9 mmol/L Normal 3.5-5.1 [facility] Comment on above: Performed By: #### A CETON #### [facility] [address] [address] [address] Neisha Araiza Protein [Mass/Vol] 7.9 g/dL Normal 6.4-8.2 [facility] Comment on above: Performed By: #### A CETON #### [facility] [address] [address] [address] Neisha Araiza Sodium [Moles/Vol] 129 mmol/L Critically low 136-145 [facility] Comment on above: Performed By: #### A CETON #### [facility] [address] [address] [address] Neisha Araiza Urea nitrogen [Mass/Vol] 12.0 mg/dL Normal 7.0-18.0 [facility] Comment on above: Performed By: #### A CETON #### [facility] [address] [address] [address] Neisha Araiza Urea nitrogen/Creatinine [Mass ratio] 20.3 mg/mg Normal [facility] Comment on above: Performed By: #### A CETON #### [facility] [address] [address] [address] Neisha Araiza Vital Signs Date Time Vital Sign Value Performing Clinician Facility 04-24-2025 10:12040 Body temperature 98.2 [degF] Priscilla Kashmir card.ioS Work Phone: [facility] 04-24-2025 10:12-0400 Diastolic blood pressure 78 mm[Hg] Priscilla Marlow DDS Work Phone: [facility] 04-24-2025 10:12-0400 Heart rate 88 /min Priscilla Marlow DDS Work Phone: [facility] 04-24-2025 10:12-0400 Systolic blood pressure 130 mm[Hg] Priscilla Marlow card.ioS Work Phone: [facility] 03-20-2025 10:25-0400 Body temperature 97.81 [degF] Yixue Marlow DDS Work Phone: [facility] 03-20-2025 10:25-0400 Diastolic blood pressure 94 mm[Hg] Yixue Marlow DDS Work Phone: [facility] 03-20-2025 10:25-0400 Heart rate 82 /min Yixue Marlow DDS Work Phone: [facility] 03-20-2025 10:25-0400 Systolic blood pressure 146 mm[Hg] Yixue Marlow DDS Work Phone: [facility] 03-05-2025 15:08-0400 Body temperature 98.91 [degF] Yixue Marlow DDS Work Phone: [facility] 03-05-2025 15:08-0400 Diastolic blood pressure 98 mm[Hg] Yixue Marlow DDS Work Phone: [facility] 03-05-2025 15:08-0400 Heart rate 86 /min Yixue Marlow DDS Work Phone: [facility] 03-05-2025 15:08-0400 Systolic blood pressure 146 mm[Hg] Yixue Marlow DDS Work Phone: [facility] 02-19-2025 14:10-0400 Body height 165.1 cm Yixue Marlow DDS Work Phone: [facility] 02-19-2025 14:10-0400 Body temperature 98.6 [degF] Yixue Marlow DDS Work Phone: [facility] 02-19-2025 14:10-0400 Diastolic blood pressure 76 mm[Hg] Yixue Marlow DDS Work Phone: [facility] 02-19-2025 14:10-0400 Heart rate 101 /min Priscilla Marlow DDS Work Phone: [facility] 02-19-2025 14:10-0400 Systolic blood pressure 126 mm[Hg] Priscilla Marlow DDS Work Phone: [facility] 01-08-2025 15:08-0400 Body mass index (BMI) [Ratio] 31.42 kg/m2 Basia Brandt PA Work Phone: [facility] 01-08-2025 15:08-0400 Body weight 80.47 kg Basia Karly PA Work Phone: [facility] 01-08-2025 15:08-0400 Diastolic blood pressure 76 mm[Hg] Basia Brandt PA Work Phone: [facility] 01-08-2025 15:08-0400 Systolic blood pressure 120 mm[Hg] Basia Brandt PA Work Phone: [facility] 10-04-2024 07:29-0500 Body height 165.1 cm Amy Love MD Work Phone: [facility] 10-04-2024 07:29-0500 Body mass index (BMI) [Ratio] 28.62 kg/m2 Amy Love MD Work Phone: [facility] 10-04-2024 07:29-0500 Body temperature 98.2 [degF] Amy Love MD Work Phone: [facility] 10-04-2024 07:29-0500 Body weight 78.02 kg Amy Love MD Work Phone: [facility] 10-04-2024 07:29-0500 Diastolic blood pressure 92 mm[Hg] Amy Love MD Work Phone: [facility] 10-04-2024 07:29-0500 Heart rate 116 /min Amy Love MD Work Phone: [facility] 10-04-2024 07:29-0500 Respiratory rate 20 /min Amy Love MD Work Phone: [facility] 10-04-2024 07:29-0500 SaO2% (BldA) [Mass fraction] 96 % Amy Love MD Work Phone: [facility] 10-04-2024 07:29-0500 Systolic blood pressure 160 mm[Hg] Amy Love MD Work Phone: [facility] 08-28-2024 15:14-0500 Diastolic blood pressure 92 mm[Hg] Sanchez Mancilla MD Work Phone: [facility] 08-28-2024 15:14-0500 Systolic blood pressure 150 mm[Hg] Sanchez Mancilla MD Work Phone: [facility] 08-28-2024 14:05-0500 Body height 165.1 cm Sanchez Mancilla MD Work Phone: [facility] 08-28-2024 14:05-0500 Body mass index (BMI) [Ratio] 29.29 kg/m2 Sanchez Mancilla MD Work Phone: [facility] 08-28-2024 14:05-0500 Body temperature 97.9 [degF] Sanchez Mancilla MD Work Phone: [facility] 08-28-2024 14:05-0500 Body weight 79.83 kg Sanchez Mancilla MD Work Phone: [facility] 08-28-2024 14:05-0500 Heart rate 116 /min Sanchez Mancilla MD Work Phone: [facility] 08-28-2024 14:05-0500 Respiratory rate 20 /min Sanchez Mancilla MD Work Phone: [facility] 08-28-2024 14:05-0500 SaO2% (BldA) [Mass fraction] 99 % Sanchez Mancilla MD Work Phone: [facility] 07-09-2024 08:36-0500 Body height 165.1 cm Amisha Nguyen MD Work Phone: [facility] 07-09-2024 08:36-0500 Body mass index (BMI) [Ratio] 3 kg/m2 Amisha Nguyen MD Work Phone: [facility] 07-09-2024 08:36-0500 Body temperature 98.6 [degF] Amisha Nguyen MD Work Phone: [facility] 07-09-2024 08:36-0500 Body weight 8.16 kg Amisha Nguyen MD Work Phone: [facility] 07-09-2024 08:36-0500 Diastolic blood pressure 99 mm[Hg] Amisha Nguyen MD Work Phone: [facility] 07-09-2024 08:36-0500 Heart rate 106 /min Amisha Nguyen MD Work Phone: [facility] 07-09-2024 08:36-0500 Respiratory rate 16 /min Amisha Nguyen MD Work Phone: [facility] 07-09-2024 08:36-0500 SaO2% (BldA) [Mass fraction] 98 % Amisha Nguyen MD Work Phone: [facility] 07-09-2024 08:36-0500 Systolic blood pressure 146 mm[Hg] Amisha Nguyen MD Work Phone: [facility] 01-23-2023 18:06-0400 Hourly Rounding Ellie BAJWAU [facility] 01-23-2023 18:06-0400 Promise to Return Ellie OEDU [facility] 01-23-2023 17:21-0400 Hourly Rounding Ellie OEDU [facility] 01-23-2023 17:21-0400 Promise to Return Mbanefo OJUKWU [facility] 01-23-2023 16:21-0400 Hourly Rounding Mbanefo OJUKWU [facility] 01-23-2023 16:21-0400 Promise to Return Mbanefo OJUKWU [facility] 01-23-2023 14:00-0400 Blood Pressure Location Mbanefo OJUKWU [facility] 01-23-2023 11:45-0400 Heart rate 74 /min Mbanefo OJUKWU [facility] 01-23-2023 11:45-0400 SaO2% (BldA) [Mass fraction] 98 % Mbanefo OJUKWU [facility] 01-23-2023 11:45-0400 Diastolic blood pressure 87 mm[Hg] Mbanefo OJUKWU [facility] 01-23-2023 11:45-0400 Mean blood pressure 107 mm[Hg] Mbanefo OJUKWU [facility] 01-23-2023 11:45-0400 Systolic blood pressure 146 mm[Hg] Mbanefo OJUKWU [facility] 01-23-2023 11:45-0400 Body temperature 98.06 [degF] Mbanefo OJUKWU [facility] 01-23-2023 08:47-0400 gluc 192 mg/dL Mbanefo OJUKWU [facility] 01-23-2023 08:46-0400 Diastolic blood pressure 95 mm[Hg] Mbanefo OJUKWU [facility] 01-23-2023 08:46-0400 Heart rate 88 /min Mbanefo OJUKWU [facility] 01-23-2023 08:46-0400 Systolic blood pressure 155 mm[Hg] Mbanefo OJUKWU [facility] 01-23-2023 08:03-0400 Heart rate 83 /min Mbanefo OJUKWU [facility] 01-23-2023 08:03-0400 SaO2% (BldA) [Mass fraction] 98 % Mbanefo OJUKWU [facility] 01-23-2023 08:03-0400 Mean blood pressure 115 mm[Hg] Mbanefo OJUKWU [facility] 01-23-2023 08:02-0400 Body temperature 98.24 [degF] Mbanefo OJUKWU [facility] 01-23-2023 01:40-0400 Blood Pressure Location Mbanefo OJUKWU [facility] 01-23-2023 01:40-0400 Body temperature 98.06 [degF] Mbanefo OJUKWU [facility] 01-23-2023 01:40-0400 Heart rate 91 /min Mbanefo OJUKWU [facility] 01-23-2023 01:40-0400 Mean blood pressure 119 mm[Hg] Mbanefo OJUKWU [facility] 01-23-2023 01:40-0400 Respiratory rate 18 /min Mbanefo OJUKWU [facility] 01-23-2023 01:40-0400 SaO2% (BldA) [Mass fraction] 98 % Mbanefo OJUKWU [facility] 01-22-2023 20:59-0400 Heart rate 94 /min Mbanefo OJUKWU [facility] 01-22-2023 19:00-0400 Mean blood pressure 108 mm[Hg] Mbanefo OJUKWU [facility] 01-22-2023 15:33-0400 Respiratory rate 18 /min Mbanefo OJUKWU [facility] 01-22-2023 15:32-0400 Mean blood pressure 101 mm[Hg] Mbanefo OJUKWU [facility] 01-22-2023 11:35-0400 Heart rate 67 /min Mbanefo OJUKWU [facility] 01-22-2023 08:40-0400 gluc 215 mg/dL Mbanefo OJUKWU [facility] 01-22-2023 04:53-0400 Mean blood pressure 97 mm[Hg] Mbanefo OJUKWU [facility] 01-21-2023 18:42-0400 Respiratory rate 15 /min Mbanefo OJUKWU [facility] 01-21-2023 17:54-0400 Respiratory rate 21 /min Mbanefo OJUKWU [facility] 01-21-2023 17:45-0400 Respiratory rate 16 /min Mbanefo OJUKWU [facility] 01-21-2023 16:20-0400 Heart rate 87 /min Mbanefo OJUKWU [facility] Encounters Encounter Date Encounter Type Care Provider Facility Start: 04-24-2025 End: 04-24-2025 Encounter identifier Priscilla Marlow DDS Work Phone: [facility] Start: 04-24-2025 ambulatory Priscilla Marlow [facility] Start: 03-20-2025 End: 03-20-2025 Encounter identifier Priscilla Marlow DDS Work Phone: [facility] Start: 03-05-2025 End: 03-05-2025 Encounter identifier Priscilla Marlow DDS Work Phone: [facility] Start: 02-19-2025 End: 02-19-2025 Encounter identifier Priscilla Marlow DDS Work Phone: [facility] Start: 01-08-2025 End: 01-08-2025 Patient encounter procedure Basia BLOOM Work Phone: [facility] Work Phone: Start: 01-08-2025 End: [...] patient visit Amy Love MD Work Phone: [facility] Comment on above: Viral illness (Prima ry Dx) Start: 08-28-2024 End: 08-28-2024 Emergency department patient visit Sanchez Mancilla MD Work Phone: [facility] Comment on above: Blood glucose elevat ed (Primary Dx); Hyperglycemia due to diabetes mellitus (HCC); Dehydration Start: 07-09-2024 End: 07-09-2024 Emergency department patient visit Amisha Nguyen MD Work Phone: [facility] Comment on above: Infective otitis ext [place] of left ear (Primary Dx); Herpes zoster without complication Start: 02-05-2023 End: 02-05-2023 ambulatory [facility] Start: 01-23-2023 ambulatory Facility:1 [id number] Start: 01-22-2023 ambulatory Facility:1 9637 Start: 01-21-2023 End: 01-23-2023 ambulatory Abhishek Monterroso Facility:[facility] Start: 01-21-2023 End: 01-23-2023 Observation Ellie LeloJUKWU [facility] Start: 12-12-2022 End: 12-12-2022 Emergency department patient visit Pako Metzger Facility:[facility] Start: 06-15-2022 End: 06-15-[address] LELAND [...] 02-19-2025 Documentation of current medications Yixue Marlow card.ioS Work Phone: Start: 02-19-2025 End: 02-19-2025 extraction, erupted tooth or exposed root (elevation and/or forceps removal) Priscilla Marlow card.ioS Work Phone: Start: 02-19-2025 End: 02-19-2025 extraction, erupted tooth requiring removal of bone and/or sectioning of tooth, and including elevation of mucoperiosteal flap if indicated Priscilla Marlow card.ioS Work Phone: Start: 02-19-2025 End: 02-19-2025 oral hygiene instructions Priscilla Marlow card.ioS Work Phone: Start: 01-08-2025 RECURRENT VAGINITIS (HTRX) [...] Office Visit [facility] [address] [place] [id number] Leland Claros DO [address] [place] [address] [facility] Start: 04-24-2025 End: 04-24-2025 [facility] Work Phone: Start: 03-20-2025 End: 03-20-2025 [facility] Work Phone: Start: 03-05-2025 End: 03-05-2025 [facility] Work Phone: Start: 02-19-2025 [facility] Work Phone: Start: 01-08-2025 End: 01-08-2025 Patient encounter procedure 01/08/2025 3:00 PM EDT Office Visit [facility] [address] [place] [id number] Basia Brandt PA [address] [place] [address] Arrived [facility] Comment on above: Arrived Start: 04-02-2024 COVID-19 Vaccine ( season) COVID-19 Vaccine ( season) [facility] Start: 04-02-2024 COVID-19 Vaccine ( season) COVID-19 Vaccine ( season) [facility] Start: 03-02-2024 Influenza vaccination Flu vaccine (# 1) [facility] Start: 1997 DTaP/Tdap/Td vaccine (1 - Tdap) DTaP/Tdap/Td vaccine (1 - Tdap) [facility] End: 08-28-2024 Blood gas, venous Blood gas, venous Lab Routine One Time for 1 Occurrences starting 08/28/2024 until 08/28/2024 [facility] Comment on above: One Time for 1 Occur rences starting 08/28/2024 until 08/28/2024 EKG 12 Lead EKG 12 Lead ECG STAT 08/28/2024 4:47 PM EST [facility] Payers Date Payer Category Payer Private Health Insurance [employer] [id number] 2022 Medicaid [id number] 1980 Unknown [id number] [id number]. 593 1978 Unknown [id number] 2.16840.1.700834.3.579.2. 59 1978 Unknown [id number] 2.16840.1.489656.3.579.2. 593 1978 Unknown [id number] 2.16840.1.320410.3.579.2. 593 1978 Unknown [id number] 2.16.840.1.565855.3.579.2. 593 1978 Unknown [id number] 2.16.840.1.053271.3.579.2. 593 1978 Unknown [id number] 2.16.840.1.181692.3.579.2. 593 1978 Unknown [id number] 2.16.840.1.239187.3.579.2. 593 1978 Unknown [id number] 2.16.840.1.374347.3.579.2. 593 1978 Unknown [id number] 2.16.840.1.115216.3.579.2. 727 1978 Unknown [id number] 2.16.840.1.259185.3.579.2. 727 1978 Unknown [id number] 2.16.840.1.059251.3.579.2. 356 1978 Unknown [id number] 2.16.840.1.833483.3.579.2. 356 1978 Unknown [id number] 2.16.840.1.606425.3.579.2. 174 1978 Unknown [id number] 2.16.840.1.393372.3.579.2. 174 1978 Unknown [id number] 2.16.840.1.285913.3.579.2. 174 1978 Unknown [id number] 2.16.840.1.582202.3.579.2. 1259 1978 Unknown [id number] 2.16.840.1.767303.3.579.2. 716 1959 Unknown [id number] Social History Date Type Detail Facility Start: 02-19-2025 Tobacco Never smoker [facility] Comment on above: denies Tobacco smoking status No Smoking Status Entered [facility] Start: 07-09-2024 End: 01-08-2025 Sex Assigned At Female [facility] Start: 06-03-2023 End: 07-09-2024 Tobacco smoking status NHIS Never smoked tobacco [facility] Start: 06-03-2023 End: 07-09-2024 Tobacco use and exposure Smokeless tobacco non-user [facility] Start: 07-09-2024 End: 10-04-2024 Alcoholic beverage intake Lifetime non-drinker (finding) [facility] Start: 1980 Sex assigned at Female [facility] Alert[facility] Start: 07-21-2021 Gender identity Identifies as female gender (finding) [facility] Start: 07-09-2024 End: 01-08-2025 History of Social function [facility] How often to you hav e a drink containing alcohol? Never [facility] How many standard drinks containing alcohol do you have on a typical day? Patient does not drink [facility] Start: 06-03-2023 End: 01-08-2025 Alcoholic [...] [facility] Sexual Orientation Straight or heterosexual [facility] Work Phone: NEGATED: Highlighted rowStart: KELVIN History of tobacco use Passive smoker [facility] NEGATED: Highlighted rowStart: 02-19-2025 End: 04-24-2025 Tobacco smoking status NHIS Unknown if ever smoked [facility] NEGATED: Highlighted rowStart: 02-19-2025 History of tobacco use Current non-smoker [facility] Medical Equipment Procedure Code Equipment Code Equipment Origin al Text Equipment Identifier Dates PCI Unknown 01/22/23 Non Biological Left Circumflex Coronary Artery FDA Start: 01-22-2023 Comment on above: 2.75 mm x 28 mm Xien ce Coronary stent to LAD Functional Status Date Assessment Result Facility 01-21-2023 Functional Status No [facility] 01-21-2023 Functional Status [facility] Clinical Notes 01-05-2022 to 04-24-2025 Note Date & Type Note Facility 04-24-2025 History of Presen t illness Narrative Encounter Date POV [facility] Work Phone: 1(513) 158-915508-19-2025 History of Present illness Narrative* Encounter Date Complaint History Of Prese nt Illness ext [facility] Work Phone: 1(185) 847-384008-04-2025 History of Present illness Narrative* Encounter Date Complaint History Of Prese nt Illness ext [facility] Work Phone: 1(634) 289-492907-21-2025 History of Present illness Narrative* Encounter Date Complaint History Of Prese nt Illness extraction extraction [facility] Work Phone: 1(347) 918-132106-09-2025 History of Present illness Narrative* Celeste Kaye, WIRE TESTER - 01/08/2025 3:00 PM EDT Reason for [...] Diagnosis Date Diabetes mellitus (CMS/HCC) HTN (hypertension) ([facility]) HISTORY PAST MEDICAL HISTORY SOCIAL HISTORY Past Medical History: Diagnosis Date Diabetes mellitus (CMS/HCC) HTN (hypertension) ([facility]) Social History Tobacco Use Smoking status: [...] nursing note reviewed. Exam conducted with a systems test analyst present. Vitals: Estimated body mass index is [...] behalf of: MERLE Mendoza documented in [facility] [id number] Hospital Discharge instructions* Discharge Instructions* Sanchez Mancilla [...] through Care Everywhere. * Hyperglycemia: General Info ([place]ian) [facility]Card[facility] Clinic Note Chief Complaint: establish care [...] history of Coronary artery disease, Diabetes mellitus ([facility]), Hyperlipidemia, Hypertension, and Myocardial infarction ([facility]). Surgical History She has a past [...] Aspirin indefinitely -High intensi (more content not included)...[facility] 02-05-2023 NoteNew patient here to establish care. Ref from Dr. Carrillo for recent NSTEMI w/ PCI at [facility]. She wanted to see cardiology closer to home. She was started on Brilinta s/p PCI and is tolerating it well.[facility] 01-24-2023 NoteAdmission and Discharge Information Admitting [...] shoulder pain. She was subsequently admitted to [facility] with acute NSTEMI, elevated troponin, hypertensive urgency, right shoulder pain. She was treated with aspirin, Brilinta, Lipitor, nitroglycerin, Lovenox. She was also treated with lisinopril and Lopressor. She was seen in consultation by the real estate developer and underwent echocardiogram that was essentially normal. [...] primary care physician as well as the real estate developer accordingly. Physical Exam General: alert, no acute [...] 69.9 % Lymph Auto - 24.9 % [place] Auto - 4.6 % Eos Auto - 0.2 % Basophil Auto - 0.4 % Neutro Absolute - 7.4 E9/L Lymph Absolute - 2.6 E9/L [place] Absolute - 0.5 E9/L Eos Absolute - [...] - 255 mg/dL POC Device SN - [id number] POC User ID - [id number] POC Username - LESLY PARR CBC w/ [...] Protein - NEGATIVE1 UA (more content not included)...[facility] Result Comment: Electronically Signed By: Ellie OBANDO MD\.br\Date and Time Signed: 01/24/23 19:32 [id number] Evaluation + Plan noteExtracted from: Title:APSO Note [...] Lipitor, lisinopril, Lopressor. Treated with Lovenox. Ordered: [facility] Care/Day Moderate 35 Minutes 15799 2. Coronary artery disease (I25.10: Atherosclerotic heart disease of [place] coronary artery without angina pectoris) As seen on cardiac catheterization. Patient has coronary artery disease with mid left circumflex artery occlusion requiring 1 drug-eluting stent placement on 01/22/2023. Continue on aspirin, Brilinta, Lipitor, lisinopril and Lopressor. Ordered: [facility] Care/Day Moderate 35 Minutes 87535 3. Chest pain (R07.9: Chest pain, unspecified) Secondary to above. Resolved. Ordered: [facility] Care/Day Moderate 35 Minutes 01977 4. Elevated troponin (R77.8: Other specified abnormalities of plasma proteins) Secondary to above. Resolved. Ordered: [facility] Care/Day Moderate 35 Minutes 01304 5. Hypertensive urgency (I16.0: Hypertensive urgency) Resolved. Continue on lisinopril and metoprolol. Ordered: [facility] Care/Day Moderate 35 Minutes 52127 6. Right shoulder pain (M25.511: Pain in right shoulder) Secondary to above #1. With atypical presentation. Ordered: [facility] Care/Day Moderate 35 Minutes 32319 7. Leukocytosis (D72.829: Elevated white blood cell [...] deep vein thrombosis (DVT) prophylaxis (Z79.899: Other superintendent container terminal (current) drug therapy) SCDs. Disposition: Home either today or in a.m. pending cardiology final recommendations. I discussed the diagnosis and plan of care with the patient at the bedside. Moderate level of MDM based on addressing above issues. This documentation was transcribed using voice recognition software. Several attempts were made to ensure accuracy. However inadvertent computerized woodworker helper errors may be present. Ellie Obando. Hospitalist. [...] deep vein thrombosis (DVT) prophylaxis (Z79.899: Other superintendent container terminal (current) drug therapy) Orders: ticagrelor, 180 mg [...] deep vein thrombosis (DVT) prophylaxis (Z79.899: Other long-term (current) drug therapy) Orders: ticagrelor, 180 mg [...] and oxygen. Cardiology consult pending. Ordered: [facility] Care/Day Moderate 35 Minutes 32804 2. Elevated troponin (R77.8: Other specified abnormalities of plasma proteins) Elevated troponin secondary to NSTEMI. Cardiology consult pending. Continue on aspirin, Lipitor, Lovenox. Echocardiogram pending. Ordered: [facility] Care/Day Moderate 35 Minutes 65580 3. NSTEMI (non-ST elevation myocardial infarction) (I21.4: Non-ST elevation (NSTEMI) myocardial infarction) Acute NSTEMI present on admission. Cardiology consult pending. Echocardiogram pending. Continue on aspirin, Lipitor, lisinopril, Lovenox. Ordered: [facility] Care/Day Moderate 35 Minutes 13121 4. Hypertensive urgency (I16.0: Hypertensive urgency) Resolved. Continue lisinopril. Ordered: [facility] Care/Day Moderate 35 Minutes 87625 5. Right shoulder pain (M25.511: Pain in right shoulder) Resolved. Ordered: [facility] Care/Day Moderate 35 Minutes 09944 6. Leukocytosis (D72.829: Elevated white blood cell [...] deep vein thrombosis (DVT) prophylaxis (Z79.899: Other long-term (current) drug therapy) Lovenox. Disposition: Pending echocardiogram and cardiology consult. I discussed the diagnosis and plan of care with the patient at the bedside. Moderate level of MDM based on addressing above issues. This documentation was transcribed using voice recognition software. Several attempts were made to ensure accuracy. However inadvertent computerized woodworker helper errors may be present. Ellie Obando. Hospitalist. [...] Ordered: [facility] Care/Day High 75 Minutes 11989 2. Elevated troponin (R77.8: Other specified abnormalities of plasma proteins) Elevated troponin mild. We will complete serial cardiac enzymes. Started patient on aspirin. If troponin trends up we will start patient on Lovenox or IV heparin. Check fasting lipid profile. Echocardiogram. Ordered: [facility] Hospital Care/Day High 75 Minutes 25225 3. Hypertensive urgency (I16.0: Hypertensive urgency) Continue lisinopril. IV hydralazine as needed. Ordered: [facility] Hospital Care/Day High 75 Minutes 96544 4. Right shoulder pain (M25.511: Pain in right shoulder) Musculoskeletal in origin. Started patient on as needed pain medications. Ordered: [facility] Care/Day High 75 Minutes 81173 5. Leukocytosis (D72.829: Elevated white blood cell count, unspecified) Secondary to steroid effect. Ordered: [facility] Hospital Care/Day High 75 Minutes 53650 6. Hyperglycemia (R73.9: Hyperglycemia, unspecified) Secondary to [...] deep vein thrombosis (DVT) prophylaxis (Z79.899: Other superintendent container terminal (current) drug therapy) Lovenox. Disposition: The patient [...] made to ensure accuracy. However inadvertent computerized woodworker helper errors may be present. Ellie Obando. Hospitalist. [...] deep vein thrombosis (DVT) prophylaxis (Z79.899: Other long-term (current) drug therapy) Orders: nitroglycerin, 0.4 mg [...] ED Physician consult Hospitalist for continued care [facility]06-24-2023 Hospital Discharge instructions Patient Education 01/23/2023 09:22:37 CV - Cardiovascular PCI Discharge Instructions (CUSTOM) [place], [place] Cardiovascular PCI DISCHARGE INSTRUCTIONS Diet: Resume [...] hours post procedure: Actoplus MetGlucophageGlucophage XR GlucovanceAvandametFortamet Yzd-lqoblmxfdYcmnuiZkrr-pnzonwaay GlumetzaJanumetMetaglip RiometGlycomet Minimal pain, soreness and/or discomfort is expected. If you are prescribed an aspirin and/or antiplatelet (such as Plavix, Brilinta or Effient) do NOT stop taking these medications for any reason without talking to your real estate developer Site Care: Do not remove dressing for [...] you are interested in smoking cessation, contact [facility] at [phone], ext. [phone]. In the event you are unable to reach your physician, please call [facility] at [phone] and the chief lock operator will assist you. Seek Medicare Care [...] Up Care 01/21/2023 16:19:43 With:Abhishek Monterroso Address: [address] [place] [phone] Business (1) When:2 weeks Comments:Call for followup appointment With:Gentry Carrillo Address: [facility] [place] [address] Business (1) When:01/27/2023 09:30:00 [facility]06-24-2023 NoteProcedure [facility] poss PCI via right radial Patient seen [...] deep vein thrombosis (DVT) prophylaxis (Z79.899: Other long-term (current) drug therapy) Orders: ticagrelor, 180 mg = 2 tab(s), Tab, Oral, Once, Stop date 01/22/23 14:32:00 EDT, NOW, Start date 01/22/23 14:32:00 EDT, 01/22/23 14:32:00 EDT ticagrelor, Tab, Misc, Once, Stop date 01/22/23 14:32:48 EDT, Physician Stop, 01/22/23 14:32:48 EDT [facility] CenterComment on above:Result Comment: Electronically Signed By: Kriss HAIDER, Abhishek Hagan\.brenna\Date and Time Signed: 01/22/23 22:12 [id number] NoteEchocardiology Procedure Exam Date/Time Accession # Ordering Echo Transthoracic w/ 01/22/2023 11:42 EDT [id number] Ellie OBANDO MD Contrast CPT code [id number] Reason for Exam (Echo Transthoracic w/ Contrast) Chest pain Report [facility] [address] [place] [address] Adult Echocardiogram Report Name: ESCOBAR ORTEGA Study Date: 01/22/2023 09:56 AM BP: 129/81 mmHg Patient Location: [address] [place] [id number] HR: 89 : 1980 Gender: Female Height: [...] Signed by: Abhishek Monterroso MD Transcribed by: [facility] Technologist: [facility]06-22-2023 Note Chief Complaint pt states just seen for arm pain, given rx steroid. 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 History of Present Illness 43-year-old female [...] Lymph Auto: 8.6 % Low (01/21/23 16:35:00) [place] Auto: 4.8 % (01/21/23 16:35:00) Eos Auto: 0.1 % (01/21/23 16:35:00) Basophil Auto: 0.3 % (01/21/23 16:35:00) Neutro Absolute: 12.3 E9/L High (01/21/23 16:35:00) Lymph Absolute: 1.2 E9/L (01/21/23 16:35:00) [place] Absolute: 0.7 E9/L (01/21/23 16:35:00) Eos Absolute: [...] Urobilinogen: 0.2 (01/21/23 17:53 (more content not included)...[facility] CenterComment on above:Result Comment: Electronically Signed By: GAGE HAIDER, Ellie\.br\Date and Time Signed: 01/21/23 19:11 [id number] Note PROCEDURE: XR GI UPPER AIR KUB [...] Electronically authenticated by: MATTHEW SILVER Date: 2022-01-05 11:30[facility]06-06-2022 NotePROCEDURE: XR GI UPPER AIR [...] Electronically authenticated by: MATTHEW SILVER Date: 2022-01-05 11:30[facility]06-06-2022 NotePROCEDURE: XR GI UPPER AIR [...] Electronically authenticated by: MATTHEW SILVER Date: 2022-01-05 11:30[facility] note* Clinical Note Date No Information [facility] Work Phone: Discharge summary* Clinical Note Date No Information [facility] Work Phone: Evaluation note* Diagnosis Infective otitis externa of left ear- Primary Herpes zoster without complication [facility] Blood glucose elevated- Primary Other abnormal glucose Hyperglycemia due to diabetes mellitus (HCC) Dehydration [facility] [place] [facility]* Diagnosis Viral illness- Primary Unspecified viral infection, in conditions classified elsewhere and of unspecified site [facility] [place] [facility]* Diagnosis Yeast infection- Primary Well woman exam with routine gynecological exam Routine gynecological examination Acute vaginitis Unspecified vaginitis and vulvovaginitis documented in this encounter [facility]* Type Assessment Date No Information [facility] Work Phone: History and physical note* Clinical Note Date No Information [facility] Work Phone: History of Past illness Narrative* Condition Effective Dates (start - stop) O utcome No Information [facility] Work Phone: Hospital course Narrative No data available for this section [facility]* Attachments The following attachments cannot be sent through Care Everywhere. * Shingles (Burundian) * Otitis Externa (Burundian) [facility]* Attachments The following attachments cannot be sent through Care Everywhere. * URI (Upper Respiratory Infection): Viral (Burundian) [facility]* Date Instruction Additional Infor mation No Information [facility] Work Phone: Progress note No data available for this section [facility] Clinical Note Date No Information [facility] Work Phone: Reason for referral (narrative)* Reason For Referral No Information [facility] Work Phone: Review of systems Narrative - Reported* System Pos/Neg Findings No Information [facility] Work Phone: Summary Purpose Family History Family [...] section and content) DATE CREATED AUTHOR 06/22/2022 [facility] DATE CREATED AUTHOR AUTHOR'S ORGANIZ ATION 01/28/2023 [facility] DATE CREATED AUTHOR AUTHOR'S ORGANIZ ATION 03/15/2023 [facility] DATE CREATED AUTHOR AUTHOR'S ORGANIZ ATION 05/15/2023 [facility] DATE CREATED AUTHOR AUTHOR'S ORGANIZ ATION 10/05/2024 [facility] DATE CREATED AUTHOR AUTHOR'S ORGANIZ ATION 01/09/2025 [facility] EPIC DATE CREATED AUTHOR AUTHOR'S ORGANIZ ATION 04/25/2025 [facility] Patient Care team informatio n (unrecognized section and content) Manager Supply Chain Planning Relationship Specialty Start Date End Date Gentry Carrillo MD [address] [place] [address] PCP - General Family Medicine 07/09/24 Manager Supply Chain Planning Relationship Specialty Start Date End Date Gentry Carrillo MD [address] [place] [address] PCP - General Family Medicine 07/09/24 Manager Supply Chain Planning Relationship Specialty Start Date End Date Gentry Carrillo MD [address] [place] [address] PCP - General Family Medicine 07/09/24 Manager Supply Chain Planning Relationship Specialty Start Date End Date Gentry Carrillo MD [address] [place] [address] PCP - General Family Medicine 11/16/24 Manager Supply Chain Planning Relationship Specialty Start Date End Date Gentry Carrillo MD [address] [place] [address] PCP - General Family Medicine 11/16/24 Manager Supply Chain Planning Relationship Specialty Start Date End Date Gentry Carrillo MD [address] [place] [address] PCP - General Family Medicine 11/16/24 Name [...] BE BASED ON THE PRIMARY CLINICAL RECORDS. [employer] [facility] provides no warranty or guarantee of the accuracy or completeness of information in this document.
--- NOTE | 2025-05-16 15:19 | CM.DCFOLLOWU ---
Person spoke with: Renu How are you feeling? Better How is your pain? Better Did you understand your discharge instructions? Yes Do you have any questions about your discharge instructions? No Were you given any prescriptions at discharge? Yes Were you able to get your prescriptions filled? Yes Do you understand how to take your medications as ordered? Yes Do you have any questions about your follow up appointment and do you plan to keep your follow up appointment? No questions and yes she is planning on keeping her appts Is there anything else that you would like to discuss? No Questions/Comments/Concerns/Other:
== END 2025-05-14 17:04 | disposition home or self-care (01) ==
LOC: ER 15:38 → MS 05-14 15:45
PROVIDERS: Admitting Provider Internal Medicine; Emergency Provider Emergency Medicine; PCP Family Medicine; Visit Provider Internal Medicine
DX: I25.119 Atherosclerotic heart disease of native coronary artery with unspecified angina pectoris (principal); I25.2 Old myocardial infarction; Z95.5 Presence of coronary angioplasty implant and graft; I10 Essential (primary) hypertension; E11.65 Type 2 diabetes mellitus with hyperglycemia; Z79.82 Long term (current) use of aspirin; Z79.899 Other long term (current) drug therapy; Z79.4 Long term (current) use of insulin; E78.5 Hyperlipidemia, unspecified
CPT/HCPCS: 36415; 71045; 80048; 80053; 82948; 83036; 84484; 85025; 85027; 90677; 93005; 93306; 96372; 99285; G0008; G0009; G0378; J1650; J1817

== ENCOUNTER 2025-06-18 07:50 | Outpatient (OUT) | payer OTHER, SELFPAY ==
--- OUTSIDE RECORDS SUMMARY | 2025-04-24 05:05 | XMS_ITS | Continuity of Care Document ---
Author Organization [facility] Address [address] [place] [phone] Phone Care Team Providers Care Tools And Parts Attendant Name Role Phone Priscilla Marlow DDS Unavailable [...] Procedure Date Nutrit Couns For Control Of [place] Dis Apr Post Op Visit Dental Nutrit Couns For Control Of [place] Dis Mar Extract; Erupted Th/exposted Rt 025 Extract; Erupted Th/exposted Rt 025 Extract; Erupted Th/exposted Rt 025 Extract; Erupted Th/exposted Rt 025 Extract; Erupted Th/exposted Rt 025 Extract; Erupted Th/exposted Rt 025 Extract; Erupted Th/exposted Rt 025 Extract; Erupted Th/exposted Rt 025 Extract; Erupted Th/exposted Rt 025 Extract; Erupted Th/exposted Rt 025 Extract; Erupted Th/exposted Rt 025 Nutrit Couns For Control Of [place] Dis Mar Oral Hygiene Instruction Extraction Surgical/erupt Tooth 025 Extract; Erupted Th/exposted Rt 025 Extract; Erupted Th/exposted Rt 025 Extract; Erupted Th/exposted Rt 025 Extract; Erupted Th/exposted Rt 025 Extract; Erupted Th/exposted Rt 025 Alveoloplasty W/extractions 1 - 3 Teeth Oral Hygiene Instruction Nutrit Couns For Control Of [place] Dis November Extract; Erupted Th/exposted Rt 025 Extract; Erupted Th/exposted Rt 025 Nutrit Couns For Control Of [place] Dis November Comp Oral Eval New/estab Patient 2024 Bitewings Four Films Intraoral-periapical 1st Film Bitewig-single Film Oral Hygiene Instruction Limited Oral Eval Extract; Erupted Th/exposted Rt 025 Intraoral-periapical 1st Film Oral Hygiene Instruction Limited Oral Eval Extract; Erupted Th/exposted Rt 024 Nutrit Couns For Control Of [place] Dis Sep Panoramic Film Intraoral-periapical 1st Film 2 Fuzfcqpau-gwvmujckkr-hunn Additional Sep Enrhmfbhc-loqypesydj-givp Additional Sep Comp Oral Eval New/estab Patient 2021 Oral Hygiene Instruction Intraoral-periapical 1st Film 1 Limited Oral Eval Extract; Erupted Th/exposted Rt 021 Advance Directives Directive Yes / No Effective Date File Name No Information Encounters Encounter Description Practice Location Reason(s) For Visit Diagnoses Date Provider Providers Copied on Encounter [facility], [address] [place] [address], [place], [place], [id number], tel:[phone] [facility] Dental Clinic POV (chief complaint) Encounter for screening for dental disorders Marlow DDS Yixue. [address] [place], [address], [place]. tel:[phone] [facility], [address] [place], [place], [id number], [place] tel:[phone] [facility] ext (chief complaint) Encounter for screening for dental disorders Marlow DDS Yixue. [address] [place], [address], [place]. tel:[phone] [facility], [address] [place], [place], [id number], [place] tel:[phone] [facility] ext (chief complaint) Encounter for screening for dental disorders Marlow DDS Yixue. [address] [place], [address], [place]. tel:[phone] [facility], [address] [place], [place], [id number], [place] tel:[phone] [facility] extraction (chief complaint) Encounter for screening for dental disorders Marlow DDS Yixue. [address] [place], [address], [place]. tel:[phone] [facility], [address] [place], [place], [id number], [place] tel:[phone] [facility] Encounter for screening for dental disorders Marlow DDS Yixue. [address] [place], [address], [place]. tel:[phone] [facility], [address] [place], [place], [id number], [place] tel:[phone] [facility] ext (chief complaint) Encounter for screening for dental disorders Marlow DDS Yixue. [address] [place], [address], [place]. tel:[phone] [facility], [address] [place], [place], [id number], [place] tel:[phone] [facility] DN (chief complaint) Encounter for screening for dental disorders Kashmir DDS Gabyxue. [address] [place], [address], [place]. tel:[phone] [facility], [address] [place], [place], [id number], [place] tel:[phone] [facility] Dental Clinic dental limited (chief complaint) Encounter for screening for dental disorders Marlow DDS Gabyxjayda. [address] [place], [address], [place]. tel:[phone] [facility], [address] [place] [address], [id number], [place] tel:[phone] [facility] Dental Clinic Encounter for screening for dental disorders Tino DMD Murtaza. [address] [place], [place], [id number], [place]. tel:[phone] [facility], [address] [place] [address], [id number], [place] tel:[phone] Dental Clinic DN (chief complaint) Encounter for screening for dental disorders Luis DMD Eri. [address] [place] [address], [id number], [place]. tel:[phone] [facility], [address] [place] [address], [id number], [place] tel:[phone] Dental Clinic DN (chief complaint) Encounter for screening for dental disorders Werner Gilbert. [address] [place] [address], [address], [place]. tel:[phone] Family History Family Member Type Diagnosis Age At Onset No Information Payers Payer name Insurance type Covered green party ID Authoriza tion(s) No Information Social History Type Description Quantity Date Captured [...] Percentile BMI percentile Pulse Ox Inhaled Ox 10:12 AM 88 /min 130/78 mm[Hg] 98.20 F Chief Complaint And Reason For Visit From encounter dated '04/24/2025 10:05'. POV (chief complaint) Reason For Referral Reason For Referral No Information Plan Of Treatment Date Type Action Status Goal Hepatitis C screening. Due o n due Goal HPV. Due on due Goal Hep A. Due on du e Goal Tdap Vaccine. Due on 2024 due Goal Lipid panel. Due on due Goal Tdap. Due on due Goal PRAPARE ASSESSMENT. Due on S due Goal Depression screening. Due on due Goal Unhealthy drug use screening . Due on due Goal Influenza vaccine. Due on Se due Goal Hep A. Due on du e Goal Tdap Vaccine. Due on 2024 due Goal Depression screening. Due on due Goal HPV. Due on due Goal Unhealthy drug use screening . Due on due Goal Tdap. Due on due Goal Lipid panel. Due on due Goal Hepatitis C screening. Due o n due Goal Influenza vaccine. Due on Au due Goal PRAPARE ASSESSMENT. Due on A due Goal Unhealthy drug use screening . Due on due Goal Lipid panel. Due on due Goal Tdap Vaccine. Due on 2024 due Goal Influenza vaccine. Due on due Goal Tdap. Due on due Goal Hepatitis C screening. Due o n due Goal HPV. Due on due Goal PRAPARE ASSESSMENT. Due on due Goal Depression screening. Due on due Goal Depression screening. Due on due Goal Tdap Vaccine. Due on 2024 due Goal Lipid panel. Due on due Goal Influenza vaccine. Due on due Goal PRAPARE ASSESSMENT. Due on due Goal Unhealthy drug use screening . Due on due Goal HPV. Due on due Goal Hepatitis C screening. Due o n due Goal Tdap. Due on due Goal [...] Hep A. Due on du e Goal Tdap. Due on due Goal Depression [...] on due Goal Influenza vaccine. Due on Wy due Goal Lipid panel. Due on due Goal Hepatitis C screening. Due o n due Goal Depression screening. Due on due Goal Tdap Vaccine. Due on 2024 due Goal Tdap Vaccine. Due on 2023 due Goal Tdap. Due on due Goal PRAPARE ASSESSMENT. Due on S due Goal Unhealthy drug use screening . Due on due Goal Lipid panel. Due on Sep-10-2 024 due Goal Depression screening. Due on due Goal Influenza vaccine. Due on Se due Goal HPV. Due on due Goal Hep A. Due on du e Goal Hepatitis C screening. Due o n due History Of Present Illness Encounter Date Complaint History Of Prese nt Illness POV ext ext extraction extraction ext DN dental limited dental limited DN DN DN DN Functional Status Date Functional Assessmen t No Information Instructions Date Instruction Additional Infor mation No Information Assessments Type Assessment Date No Information Patient Care Teams Name Effective Dates (start - stop) Status Members No Information
--- NOTE | 2025-06-18 07:30 | NM_ITS ---
Patient Name: ESCOBAR NASH MR#: [id number] : 1980 Exam Date: 06/18/2025 Ordering Doctor: MIRIAN NUNEZ RADIOLOGY REPORT PROCEDURE: NM ROCIO PERF SPECT REST STR COMPARISON: None. INDICATIONS: CHEST PAIN, SHORTNESS OF BREATH TECHNIQUE: Exam Description: Stress/Rest one day protocol gated SPECT Rest Imagin.9 mCi Tc-99m Cardiolite IV on 06/18/2025 Stress Imaging 31.2 mCi Tc-99m Cardiolite IV on 06/18/2025 Exercise Protocol: 0.4 mg Lexiscan given IV Heart Rate (bpm): Rest: 78 Max: 122 PMHR: 70 Blood Pressure: Rest: 139/91 Max: 148/98 Symptoms: Rest and peak stress ECG findings were pending and the EKG portion of the study was pending per attending physician [facility] . For more details please see separate cardiac stress test report. FINDINGS: QUALITY OF STUDY: Fair PERFUSION DEFECT: LOCATION: Inferolateral and inferior SIZE: Medium SEVERITY: Moderate TYPE: The inferolateral defect is reversible, the inferior defect is fixed with adequate contractility therefore it could be due to soft tissue attenuation WALL MOTION: Normal LV SIZE: 61 mL. TID / TCD: 0.8 LVEF: Calculated EF 67%. SUMMARY: Abnormal myocardial perfusion imaging study CONCLUSION: Abnormal myocardial perfusion stress images revealing evidence of inferolateral ischemia Normal left ventricle systolic function, ejection fraction 67% No transient ischemic dilatation, TID 0.8 EKG portion of the stress test is reported separately Dictated by: Kylah Everett MD on 06/18/2025 at 17:28 Approved by: Kylah Everett MD on 06/18/2025 at 17:33
--- OUTSIDE RECORDS SUMMARY | 2025-06-18 07:55 | XMS_ITS | CCD ---
Author Organization [facility] Care Team Providers Care Beef Grader Name Role Phone DR GENTRY CARRILLO Consulting Unavailable LORENA, DR EDMOND Primary Care Unavailable LORENA, DR EDMOND Attending Unavailable LORENA, DR EDMOND Admitting Unavailable MIKEY DAMICO Consulting Unavailable LORENA, DR EDMOND Primary Care Unavailable MIKEY DAMICO Attending Unavailable MIKEY DAMICO Admitting Unavailable HARLAN, DR BARNES Consulting Unavailable LORENA, DR EDMOND Primary Care Unavailable HARLAN, DR BARNES Attending Unavailable HARLAN, DR BARNES Admitting Unavailable ESTUARDO, DR BRI [...] ALEXANDRA Consulting Unavailable LUTHER NGUYEN Consulting Unavailable HARLAN, DR BARNES Consulting Unavailable LORENA, DR EDMOND Primary Care Unavailable HARLAN, DR BARNES Attending Unavailable HARLAN, DR BARNES Admitting Unavailable Gentry Carrillo Primary Care Physician Abhishek Monterroso Consulting Unavaila Ellie Encarnacion Attending Unavailable Ellie OBANDO Admitting Unavailable Abhishek Monterroso Consulting UnavailAbhishek Alonso Consulting Unavaila Pako Briceño Attending Unavailable FELIPA ROGERS Attending Unavailable Gentry Carrillo MD Primary Care Provider [phone] AMY LOVE Attending Unavailable GENTRY CARRILLO Primary Care Unavailable GENTRY CARRILLO Primary Care Unavailable SANCHEZ MANCILLA Attending Unavailable GENTRY CARRILLO Primary Care Unavailable AMISHA NGUYEN Attending Unavailable Gentry Carrillo MD Primary Care Provider [phone] BASIA BRANDT Attending Unavailable Marlow DDS, Yixue Unavailable Unavailable Marlow DDS, Yixue Unavailable Unavailable Marlow DDS, Yixue Unavailable Unavailable Marlow DDS, Yixue Attending Unavailable Gentry Carrillo MD Primary Care Unavailable Marlow DDS, Yixue Unavailable Unavailable Allergies Allergy ClassificationReported Allergen(s)Allergy TypeDate of OnsetReaction(s) Facility (1 source)PenicillinDrug Yxuubwq56-10-1948DodPrem[facility] (11 sources)Penicillins; Translations: [penicillins]Drug kkeprml03-88-5295Pqkt, Hives, UnknownAd[facility] Medications Current Medications MedicationDrug Class(es)DatesSig (Normalized)Sig (Original)acetaminophen 500 mg oral tablet (3 sources)Start: 96-25-7654nscv 1 tablet by mouth four times daily as needed for painacetaminophen (TYLENOL) 500 MG tablet Take 1 tablet by mouth 4 times daily as needed for Pain 360 tablet 1 10/04/2024 ActiveStart: 89-89-6692pyky 4000 mg by mouth every twenty-four hours1,000 mg, Oral, ONCE, 1 dose, On Wed10/04/24 at 0745, Maximum dose of acetaminophen is 4000 mg from all sources in 24 hours.Start: 08-28-2024 End: 51-67-9329elvg 4000 mg by mouth every twenty-four asvmp006 mg, Oral, ONCE, 1 dose, On Wed08/28/24 at 1630, Maximum dose of acetaminophen is 4000 mg from al l sources in 24 hours.aspirin 81 mg delayed release oral tablet (4 sources)Platelet Aggregation Inhibitor, Nonsteroidal Anti-inflammatory Drug Start: 55-88-2498vrrm 1 tablet by mouth once dailyaspirin 81 mg Oral EC Tab 81 mg = 1 tab(s), Oral, Daily, # 30 tab(s), Refills(s) 1, [id number], 165, cm, 01/21/23 16:25:00 EDT, Height/Length Dosing, 83, kg, 01/21/23 16:25:00 EDT, Weight Dosing Start Date: 01/23/23 Status: Orderedtake 1 tablet by mouth once dailyaspirin 81 MG chewable tablet Take 1 tablet by mouth daily Activeatorvastatin 80 mg oral tablet (5 sources)HMG-CoA Reductase InhibitorStart: 01-23-2023 End: 04-46-2392lhki 1 tablet by mouth once dailyatorvastatin (LIPITOR) 80 MG tablet Take 1 tablet by mouth daily Please hold for the time you are taking antiviral 30 tablet 07/09/2024 Activecetirizine hydrochloride 10 mg oral tablet (4 sources)Histamine-1 Receptor AntagonistStart: 82-63-4559cziu 1 tablet by mouth once dailycetirizine 10 mg Tab 10 mg = 1 tab(s), Oral, Daily, Refills(s) 0 Start Date: 03/23/22 Status: Orderedciprofloxacin 3 mg/ml ophthalmic solution (1 source)Quinolone AntimicrobialStart: 07-09-2024 End: 48-62-2254mhsi 4 drop(s) into the eye(s) at bedtime, then take 4 drop(s) into the eye(s) twice dailyciprofloxacin (CILOXAN) 0.3 % ophthalmic solution Place 4 drops in ear(s) in the morning and at bedtime for 10 days Please 4 drops in the left ear bid for 7 days 5 mL 07/09/2024 07/19/2024 Activecitalopram 20 mg oral tablet (4 sources)Serotonin Reuptake InhibitorStart: 39-83-5409aply 1 tablet by mouth once dailycitalopram 20 mg Tab 20 mg = 1 tab(s), Oral, Daily, Refills(s) 0 Start Date: 06/05/22 Status: Orderedfluconazole 150 mg oral tablet (2 sources)Azole AntifungalStart: 01-08-2025 End: 52-12-3580vzyt 1 tablet by mouth once, then take 1 tablet by mouth once fluconazole (Diflucan) 150 MG tablet Indications: Yeast infection Take 1 tablet (150 mg) by mouth 1(one) time for 1 dose This is a 1 time dose, take single tablet by mouth. 1 tablet 1 01/08/2025 01/08/2025 Activefluticasone furoate 0.05 MG/ACTUAT Dry Powder Inhaler (4 sources)CorticosteroidStart: 83-95-1081rrky 1 puff(s) by inhalation twice dailyfluticasone furoate 50 mcg inhalation powder = 1 puff(s), Inhalation, BID, Refills(s) 0 Start Date:03/24/22 Status: Orderedtake 1 spray(s) nasal route once daily as needed for rhinitisfluticasone (FLONASE) 50 MCG/ACT nasal spray 1 spray by Each Nostril route daily as needed for Rhinitis Activeglimepiride 4 mg oral tablet (4 sources)SulfonylureaStart: 43-38-9975sfcm 1 tablet by mouth once daily glimepiride 4 mg Tab 4 mg = 1 tab(s), Oral, Daily, Refills(s) 0 Start Date: 03/23/22 Status: OrderedhydrOXYzine hydrochloride 25 mg oral tablet (3 sources)Antihistaminetake 1 tablet by mouth twice daily as neededhydrOXYzine HCl (ATARAX) 25 MG tablet Take 1 tablet by mouth 2 times daily as needed for Itching Activeibuprofen 800 mg oral tablet (1 source)Nonsteroidal Anti-inflammatory DrugStart: 64-99-9364etvi 1 tablet by mouth four times daily as needed for painibuprofen 800 mg Tab 800 mg = 1 tab(s), Oral, QID, PRN as needed for pain, Refills(s) 0 Start Date:10/19/22 Status: OrderedLantus (3 sources)Insulin AnalogStart: 74-02-5794dwmyuw 20 [IU] by subcutaneous injection once daily at bedtimeLantus insulin 20 unit(s), SubCutaneous, Once a day (at bedtime), Refills(s) 0 Start Date: 10/19/22 Status: OrderedInsulin Glargine (BASAGLAR KWIKPEN SC) Inject 30 Units into the skin at bedtime Active labetalol hydrochloride 200 mg oral tablet (2 sources)beta-Adrenergic Blockertake 1.5 tablets by mouth three times daily labetalol (NORMODYNE) 200 MG tablet Take 1.5 tablets by mouth 3 times daily ActivemetFORMIN hydrochloride 500 mg oral tablet (1 source)BiguanideStart: 94-25-2682xzaa 1 tablet by mouth twice dailymetformin 500 mg Tab 500 mg = 1 tab(s), Oral, BID, Refills(s) 0 Start Date: 03/23/22 Status: Orderednaproxen 375 mg oral tablet (3 sources)Nonsteroidal Anti-inflammatory DrugStart: 07-09-2024 End: 33-56-3733xirw 1 tablet by mouth twice daily as needed for painnaproxen (NAPROSYN) 375 MG tablet Take 1 tablet by mouth 2 times daily as needed for Pain 20 corlam2707/09/2024 Activenitroglycerin 0.4 mg sublingual tablet (1 source)Nitrate VasodilatorStart: 48-92-2812jncfmwnvlptfg 0.4 mg sublingual Tab 0.4 mg = 1 tab(s), SubLingual, q5min, PRN Chest pain, not to exceed 3 doses/15 min--if pain persists, seek medical attention, # 100 tab(s), Refills(s) 0, [facility]acy:[facility] #[id number], 165, cm, 01/21/23 16:25:00 EDT, Height/Length Dosing, 83, kg, 01/21/23... Start Date: 01/23/23 Status: Orderedterconazole 4 mg/ml vaginal cream (4 sources)Azole AntifungalStart: 01-08-2025 End: 59-34-1216mjditawactk (Terazol 7) 0.4 % vaginal cream Indications: Yeast infection Insert 1 applicator into the vagina at bedtime for 7 days 45 g 01/08/2025 01/15/2025 Activeticagrelor 90 mg oral tablet (4 sources)Start: 07-27-7820hfrs 1 tablet by mouth twice dailyBrilinta (ticagrelor) 90 mg oral tablet 90 mg = 1 tab(s), Oral, BID, # 60 tab(s), Refills(s) 1, [facility]acy: [facility] #[id number], 165, cm, 01/21/23 16:25:00 EDT, Height/Length Dosing, 83, kg, 01/21/23 16:25:00 EDT, Weight Dosing Start Date: 01/23/23 Status: OrderedvalACYclovir 1000 mg oral tablet (1 source)Herpesvirus Nucleoside Analog DNA Polymerase Inhibitor, Herpes Simplex Virus Nucleoside Analog DNA Polymerase Inhibitor, Herpes Zoster Virus Nucleoside Analog DNA Polymerase InhibitorStart: 07-09-2024 End: 76-70-8264ttgu 1 tablet by mouth three times dailyvalACYclovir (VALTREX) 1 g tablet Take 1 tablet by mouth 3 times daily for 7 days 21 tablet 07/09/2024 07/16/2024 Active Completed/Discontinued Medications MedicationDrug Class(es)DatesSig (Normalized)Sig (Original)Acetaminophen / HYDROcodone (1 source)Opioid AgonistStart: 30-58-1431Sjawjwl 500mg-5mg Tab 1 tab(s), Oral, q4hr PRN for pain, 15 tab(s), Refill(s) 0, 0, Print Requisition Start Date: 11/17/11 Status: OrderedInsulin Lispro (2 sources)Insulin AnalogStart: 01-23-2023 End: 78-52-4839Znsnwof Lispro Sliding Scale 0-10 Units, Injection-Insulin, SubCutaneous, Start date 01/23/23 7:30:00 EDT Start Date: 01/23/23 Stop Date: 01/23/23 Status: CompletedStart: 01-22-2023 End: 36-18-4488Flzhyda Lispro Sliding Scale 0-10 Units, Injection-Insulin, SubCutaneous, Start date 01/22/23 7:30:00 EDT Start Date: 01/22/23 Stop Date: 01/22/23 Status: Completedinsulin, regular, human 100 unt/ml injectable solution (1 source)InsulinStart: 08-28-2024 End: Units, IntraVENous, ONCE, 1 dose, [place] Wed08/28/24 [place] [address] ml ketorolac tromethamine 30 mg/ml cartridge (1 source)Nonsteroidal Anti-inflammatory Drug, Cyclooxygenase InhibitorStart: 07-09-2024 End: 17-33-577791 mg, IntraMUSCular, ONCE, 1 dose, On 07/09/24 at 0900, Do not administer for more than 5 days.Start: 07-09-2024 End: mg, IntraMUSCular, ONCE, 1 dose, On 07/09/24 at 0900, Do not administer for more than 5 days.lisinopril 10 mg oral tablet (5 sources)Angiotensin Converting Enzyme InhibitorStart: 01-23-2023 End: 64-00-9877qhgwcoogrf 10 mg Tab 10 mg = 1 tab(s), Tab, Oral, Start date 01/23/23 9:00:00 EDT, 01/21/23 19:11:00 EDT Start Date: 01/23/23 Stop Date: 01/23/23 Status: CompletedStart: 90-28-4425ogoh 1 tablet by mouth once daily lisinopril 20 mg Tab 20 mg = 1 tab(s), Oral, Daily, Refills(s) 0 Start Date: 01/05/22 Status: Orderedmetoprolol tartrate 25 mg oral tablet (7 sources)beta-Adrenergic BlockerStart: 01-23-2023 End: 94-40-4135Itoludrloe tartrate 25 mg Tab 25 mg = 1 tab(s), Tab, Oral, Start date 01/23/23 9:00:00 EDT, 01/22/23 11:30:00 EDT Start Date: 01/23/23 Stop Date: 01/23/23 Status: CompletedStart: 01-22-2023 End: 06-59-5993Tsafctdsmn tartrate 25 mg Tab 25 mg = 1 tab(s), Tab, Oral, Start date 01/22/23 21:00:00 EDT, 01/22/23 11:30:00 EDT Start Date: 01/22/23 Stop Date: 01/22/23 Status: Suljazcle89 ml sodium chloride 9 mg/ml injection (2 sources)Start: 08-28-2024 End: ,000 mL (12.5 mL/kg), IntraVENous, at 1,000 mL/hr, Administer over 1 Hours, ONCE, On Wed08/28/24 at 1630, For 1 dose Problems Active Problems Problem ClassificationProblemDateDocumented DateEpisodic/ChronicAcute myocardial infarction (1 source)Non-ST elevation (NSTEMI) myocardial infarction; Translations: [Non-ST elevation (NSTEMI) myocardial infarction]Onset: 94-35-4906CkpiloxZtgdxccq atherosclerosis and other heart disease (1 source)Coronary atherosclerosis; Translations: [Atherosclerotic heart disease of [place] coronary artery without angina pectoris]Onset: 43-32-6917Vmzwvpk Diabetes mellitus with complications (3 sources)Type 2 diabetes mellitus with hyperglycemia; Translations: [Hyperglycemia due to diabetes mellitus]Onset: 943513-97-1253Qtwktup Diabetes mellitus without complication (2 sources)Type 2 diabetes mellitus without complications; Translations: [Type 2 diabetes mellitus without complication]Onset: 79-35-5799XrjzyyxLnrwjptr mellitus without complication (3 sources)Hyperglycemia; Translations: [Hyperglycemia, unspecified]Onset: 00-25-8062DmexpqinVtafpqui of white blood cells (1 source)Leukocytosis; Translations: [Elevated white blood cell count, unspecified]Onset: 03-25-4645LanxiegFqjumddhh hypertension (2 sources)Essential (primary) hypertension; Translations: [Essential hypertension]Onset: 92-08-4841GqdmrudOcfep and electrolyte disorders (6 sources)Dehydration; Translations: [Hypo-osmolality and hyponatremia]Onset: 44-13-1610TymgajmyVerckcsxpmdg with complications and secondary hypertension (1 source)Hypertensive urgency ; Translations: [Hypertensive urgency]Onset: 08-19-4090KvxwvsuFsbhuhnsjjcek and screening for infectious disease (5 sources)Encounter for screening for human papillomavirus (HPV); Translations: [Encounter for screening for infections with a predominantly sexual mode of transmission]Onset: 50-73-7556NloetqkaGfpbmupazauq diseases of female pelvic organs (2 sources)Acute vaginitis; Translations: [Acute vaginitis]13-53-0903Udkwocow Mood disorders (1 source)Major depressive disorder, single episode, unspecified; Translations: [KATHIE DEPRESS D/O SINGLE EPIS UNS]Onset: 62-68-6132IrkrwfyTymhnew (2 sources)Mycosis; Translations: [Candidiasis, unspecified]23-04-5791Kfdvyuxd Nonspecific chest pain (1 source)Chest pain; Translations: [Chest pain, unspecified]Onset: 01-21-2023 EpisodicOther aftercare (1 source)Long-term current use of drug therapy; Translations: [Other superintendent terminal (current) drug therapy]Onset: 10-90-2723DaissifgSpvbu ear and sense organ disorders (1 source)Infective otitis externa of left ear; Translations: [Other infective otitis externa, left ear]56-50-1426XehzgryzDpebq ear and sense organ disorders (1 source)Other infective otitis externa, left ear; Translations: [Other infective otitis externa, left ear]Onset: 00-96-5446KprzgbvmDosku female genital disorders (1 source)Other specified noninflammatory disorders of vagina; Translations: [OTH SPEC NONINFLAMMATORY D/O VAGINA]Onset: 95-47-5791EuoguuxpVtuok hematologic conditions (1 source)Abnormal finding on evaluation procedure; Translations: [Other specified abnormalities of plasma proteins]Onset: 25-35-6017UhaaibomZaeun non- traumatic joint disorders (1 source)Pain of right shoulder joint; Translations: [Pain in right shoulder] Onset: 93-60-6049EdaibiqiNvbwu nutritional; endocrine; and metabolic disorders (1 source)Obesity; Translations: [Obesity, unspecified]Onset: 61-27-4083Uwwrezn Other screening for suspected conditions (not mental disorders or infectious disease) (13 sources)Encounter for screening for malignant neoplasm of cervix; Translations: [Encounter for screening for dental disorders]Onset: 06-15-2022 EpisodicUnclassified (4 sources)CONTACT W/AND (SUSP) EXPOS COVID-19; Translations: [CONTACT W/AND (SUSP) EXPOS COVID-19]Onset: 98-42-1657Zzxzu infection (4 sources)Herpes zoster without complication; Translations: [Zoster without complications]Onset: 987578-47-4686Zfadrmgr Past or Other Problems Problem ClassificationProblemDateDocumented DateEpisodic/ChronicCardiac dysrhythmias (1 source)Tachycardia, unspecified; Translations: [TACHYCARDIA UNSPECIFIED] Onset: 50-11-6178TljgcspnGibitbovxqtdp symptoms and ill-defined conditions (1 source)Personal history of urinary (tract) infections; Translations: [PERS HX URINARY TRACT INFECTIONS]Onset: 24-38-9653CmhwafneEfemfp and vomiting (7 sources)Vomiting, unspecified; Translations: [Nausea with vomiting, unspecified]Onset: 02-17-6675ItahwehoUdsewzyfsgxqz gastroenteritis (1 source)Noninfective gastroenteritis and colitis, unspecified; Translations: [NONINFECTIVE GE AND COLITIS UNS]Onset: 28-04-0750UdxmasekKqwsn aftercare (1 source)Other superintendent terminal (current) drug therapy; Translations: [OTH USP CURRENT DRUG THERAPY]Onset: 11-99-7589AcpyldvqJbeil aftercare (1 source)residential (current) use of oral hypoglycemic drugs; Translations: [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 USE ORAL HYPOGLYCEMIC DX]Onset: 53-08-6027GkigruorWqtis aftercare (1 source)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; Translations: [USP CURRENT USE OF ASPIRIN]Onset: 19-66-7025JchzevrrOlvys aftercare (1 source)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; Translations: [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 CURRENT USE OF INSULIN]Onset: 45-60-3626HwgxlumwLqpyv gastrointestinal disorders (1 source)Heartburn; Translations: [HEARTBURN]Onset: 63-69-4827UrgshjnfJntscgza codes; unclassified (1 source)Acquired absence of other specified parts of digestive tract; Translations: [ACQ ABSENCE OTH PART DIGESTV TRACT]Onset: 16-44-0779Tiocoahd Unclassified (1 source)CONTACT W/AND (SUSP) EXPOS COVID-19; Translations: [CONTACT W/AND (SUSP) EXPOS COVID-19]Onset: 84-15-8954Yyzcaykzfquv (1 source)gall blader fjnffax68-75-5287Ktfxbfjlvnmu (1 source)extraction (chief complaint)Onset: 22-34-0747Tkgkqwmncyop (2 sources)ext (chief complaint)Onset: 03-05-2025 Resolved: 52-45-0253Yxgfanucgwnx (1 source)POV (chief complaint)Onset: 04-24-2025 Results Test NameValueInterpretationReference RangeFacilityIGP,APTIMA HPV,AGE GDLNon 00-29-0188MNU GDLN ACOG TESTINGNote.NOMS HealthcareComment on above:TESTS RESULT FLAG UNITS REF RANGE LAB Clinician Provided Cytology Information Source.............Cervix;Endocervix No. of containers..01 ThinPrep Vial Age Gwendolyn SPEARS Lory... 28 FLAG LEGEND: L-Low Normal,H-High Normal,LL-Alert Low,HH-Alert High <-Panic Low,>-Panic High,A-Abnormal,AA-Critical Abnormal Performed at: 01 =[address] [address] Lucy Carbajal MD, HPV APTIMANegativeNegativeNOMS HealthcareComment on above:This nucleic acid amplification test detects fourteen high- risk HPV types (16,18,31,33,35,39,45,51,52,56,58,59,66,68) without differentiation. Performed at: =[address] [id number] Journeyman Wireman: Lucy Carbajal MD, Phone: [phone] Performed at: [address] [id number] Journeyman Wireman: Lucy Carbajal MD, Phone: [phone] IGP, APTIMA HPV, RFX 16/18,45Note.NOMS HealthcareComment on above:TESTS RESULT FLAG UNITS REF RANGE LAB DIAGNOSIS: 02 NEGATIVE FOR INTRAEPITHELIAL LESION OR MALIGNANCY. Specimen adequacy: 02 Satisfactory for evaluation. Endocervical and/or squamous metaplastic cells (endocervical component) are present. Performed by: 02 Genoveva Rhodes Geospatial Program Management Officer ([facility]) . 02 Note: Note 02 [...] <-Panic Low,>-Panic High,A-Abnormal,AA-Critical Abnormal Performed at: [address] [address] Lucy Carbajal MD, BRUSH-SPATULA CERVIX ENDOCERVIX CLINISYNCNOMS HealthcareRECURRENT VAGINITIS (HTRX)on 61-04-9871GKCZLLFSV VAGINAE 15.51AbnormalNOMS HealthcareATOPOBIUM VAGINAEDetectedAbnormalNOMS HealthcareBVAB 2,3 (BACTERIAL VAGINOSIS ASSOCIATED BACTERIA 2, 3); MOBILUNCUS [id number] HealthcareBVAB 2,3 (BACTERIAL VAGINOSIS ASSOCIATED BACTERIA 2, 3); MOBILUNCUS SPPNot detectedNOMS HealthcareCANDIDA ALBICANS, PARAPSILOSIS, [id number] HealthcareCANDIDA ALBICANS, PARAPSILOSIS, TROPICALISNot detectedNOMS Healthcare HEATHER [id number] HealthcareCANDIDA GLABRATANot detectedNOMS Healthcare HEATHER [id number] HealthcareCANDIDA KRUSEINot detectedNOMS HealthcareCHLAMYDIA YSAAUVGOOHN0VWNZ HealthcareCHLAMYDIA TRACHOMATISNot detectedNOMS HealthcareERMB, C; MEFA15.815AbnormalNOMS HealthcareERMB, C; MEFADetectedAbnormalNOMS Healthcare GARDNERELLA NSQERGXSI64.198AbnormalNOMS HealthcareGARDNERELLA VAGINALISDetected AbnormalNOMS HealthcareInterpretation and review of laboratory resultsAbnormal NOMS HealthcareMEGASPHAERA (TYPES 1, 2)20.579AbnormalNOMS HealthcareMEGASPHAERA (TYPES 1, 2)DetectedAbnormalNOMS HealthcareMYCOPLASMA [id number] Healthcare MYCOPLASMA GENITALIUMNot detectedNOMS HealthcareNEISSERIA CVIVTSWYWDU4XFWG HealthcareNEISSERIA GONORRHOEAENot detectedNOMS HealthcareTET B, TET M12.593 AbnormalNOMS HealthcareTET B, TET MDetectedAbnormalNOMS HealthcareTRICHOMONAS [id number] HealthcareTRICHOMONAS VAGINALISNot detectedNOMS HealthcareNONE HealthcareCOVID-19, Rapidon 75-21-9102QKAT-CoV-2 (COVID-19) RdRp gene TIM+probe Ql (Resp)Not detectedNot [facility] Hospitalment on above: Rapid NAAT: The specimen is [...] decisions. Methodology: Isothermal Nucleic Acid Amplification Specimen Description.NASOPHARYNGEAL SWABLewisGale Hospital Pulaski A/B Ag Detectionon 71-75-2092Muu A Ag DetectionNegativeNormalNEG [facility]lower HospitalComment on above:Result Comment: for Influenza A Antigen Performed By: #### FLUABA #### [facility] [address] [place], [place] [id number] Journeyman Wireman: Matthew Driscoll MDFlu B Ag DetectionNegativeNormalNEGEast [facility] on above:Result Comment: for Influenza B Antigen.Performed By: #### FLUABA #### [facility] [address] [place], [place] [id number] Journeyman Wireman: Griselda Negrete influenza A/B antigenson 97-18-3132RERHG Ag Ql (Unsp spec)NegativeNEGATIVEBon [facility] on above:for Influenza A AntigenFLUBV Ag Ql (Unsp spec)NegativeNEGATIVEBon [facility] on above:for Influenza B Antigen.[facility] QBDR-UxZ-7ix 59-62-4426LYHY-CoV-2 (COVID-19) RNA TIM+probe Ql (Unsp spec)Not detectedNormalNOTDETMWhite Hospital on above:Result Comment: Rapid NAAT: The specimen is NEGATIVE [...] patient management decisions. Methodology: Isothermal Nucleic Acid AmplificationPerformed By: #### COVRB #### [facility] [address] [place] [address] Journeyman Wireman: CHITO Negrete with Auto Differentialon 93-76-0879Wsasfymei (Bld) [#/Vol]0.02 10*3/uLBon Secours Clinton Memorial HospitalBasophils/100 WBC (Bld)0 %0 - 2 %[facility] HospitalEosinophils (Bld) [#/Vol]0.09 10*3/uLBon Secours Clinton Memorial HospitalEosinophils/100 WBC (Bld)1 %0 - 5 %[facility] HospitalErythrocyte distribution width (RBC) [Ratio]13.0 %12.1 - 15.2 %[facility] Hematocrit (Bld) [Volume fraction]41.7 %36.0 - 46.0 %[facility] Hemoglobin (Bld) [Mass/Vol]15.0 g/dL12.0 - 16.0 g/dLBon SecNorwalk Memorial Hospital Immature granulocytes (Bld) [#/Vol]0.02 10*3/uLBon SecNorwalk Memorial HospitalImmature granulocytes/100 WBC (Bld)0 %0 - 5 %[facility] HospitalInterpretation and review of laboratory resultsAbnormalBon SecNorwalk Memorial HospitalLymphocytes/100 WBC (Bld)33 %15 - 40 %[facility] HospitalLymphocytes/100 WBC (Bld)3.26 %[facility] HospitalH (RBC) [Entitic mass]28.5 pg26.0 - 34.0 pgBon Premier HealthHC (RBC) [Mass/Vol]36.0 g/dL31.0 - 37.0 g/dLBon SecDayton Children's HospitalV (RBC) [Entitic vol]79.3 fLLow80.0 - 100.0 fLBon [facility] Monocytes/100 WBC (Bld)6 %4 - 8 %[facility] HospitalMonocytes/100 WBC (Bld) 0.55 %[facility] HospitalNeutrophils/100 WBC (Bld)60 %47 - 75 %[facility] HospitalPlatelet mean volume (Bld) [Entitic vol]9.9 fL6.0 - 12.0 fLBon Secours Clinton Memorial HospitalPlatelets (Bld) [#/Vol]277 10*3/uLBon SecNorwalk [facility] Hospital RBC (Bld) [#/Vol]5.26 10*6/uLHigh4.00 - 5.20 m/[facility] Segmented neutrophils/100 WBC (Bld)6.04 %[facility] HospitalWBC other (Bld) [#/Vol]10.0Bon [facility] HospitalBon Shelby Memorial HospitalCBC with Diffon [id number]. Basophil0.02 k/uLNormal0.00-0.20[facility] HospitalComment on above:Performed By: #### CP, CDP #### [facility] [address] [place] [address] Journeyman Wireman: MDAbs. CadenImm.Granulocyte0.02 k/uLNormal0.00-0.30[facility] HospitalComment on above:Performed By: #### CP, CDP #### [facility] [address] [place] [address] Journeyman Wireman: Alisha Negrete.Neutrophil (Seg)6.04 k/uLNormal2.5-7.0[facility] HospitalComment on above:Performed By: #### CP, CDP #### [facility] [address] [place] [address] Journeyman Wireman: Matthew Driscoll MDBasophils/100 WBC (Bld)0 %Normal0-2MCincinnati Shriners HospitalComment on above:Performed By: #### CP, CDP #### [facility] [address] [place] [address] Journeyman Wireman: [place] Negreteosinophils (Bld) [#/Vol]0.09 10*3/uLNormal 0.00-0.40[facility]lower HospitalComment on above:Performed By: #### CP, CDP #### [facility] [address] [place] [id number] Journeyman Wireman: Matthew Sturtz, MDEosinophils/100 WBC (Bld)1 %Normal0-5Promedica Flower HospitalComment on above:Performed By: #### CP, CDP #### [facility] [address] [place] [address] Journeyman Wireman: Matthew Driscoll MDErythrocyte distribution width (RBC) [Ratio]13.0 % Nndzic24.1-15.2MCincinnati Shriners HospitalComment on above:Performed By: #### CP, CDP #### [facility] [address] [place] [id number] Journeyman Wireman: Matthew Driscoll MDHematocrit (Bld) [Volume fraction]41.7 %Normal 36.0-46.0Promedica Flower HospitalComment on above:Performed By: #### CP, CDP #### [facility] [address] [place] [address] Journeyman Wireman: Matthew Driscoll MDHemoglobin (Bld) [Mass/Vol]15.0 g/dLNormal 12.0-16.0Prom[facility]ica Flower HospitalComment on above:Performed By: #### CP, CDP #### [facility] [address] [id number] Journeyman Wireman: Matthew Driscoll MDImmature granulocytes/100 WBC (Bld)0 %Normal0-5 [facility] Flower HospitalComment on above:Performed By: #### CP, CDP #### [facility] [address] [id number] Journeyman Wireman: Matthew Driscoll MDLymphocytes (Bld) [#/Vol]3.26 10*3/uLNormal 1.00-4.80Prom[facility] Flower HospitalComcorewell health butterworth hospital on above:Performed By: #### CP, CDP #### [facility] [address] [place], [place] [id number] Journeyman Wireman: Matthew Sturtz, MDLymphocytes/100 WBC (Bld)33 %Ypkcyq36-08FiaraPromedica Flower HospitalComment on above:Performed By: #### CP, CDP #### [facility] [address] [place] [address] Journeyman Wireman: LUBA NegreteCH (RBC) [Entitic mass]28.5 tmNfmaeq25.0-34.0 [facility] Flower HospitalComment on above:Performed By: #### CP, CDP #### [facility] [address] [place] [address] Journeyman Wireman: LUBA NegreteCHC (RBC) [Mass/Vol]36.0 g/vJPkqkpp67.0-37.0Prom[facility]ica Flower HospitalComment on above:Performed By: #### CP, CDP #### [facility] [address] [place] [address] Journeyman Wireman: LUBA NegreteCV (RBC) [Entitic vol]79.3 fLLow80.0-100.0Prom[facility]ica Flower HospitalComment on above:Performed By: #### CP, CDP #### [facility] [address] [place] [address] Journeyman Wireman: LUBA Negreteonocytes (Bld) [#/Vol]0.55 10*3/uLNormal0.00-1.00 [facility] on above:Performed By: #### CP, CDP #### [facility] [address] [place] [address] Journeyman Wireman: LUBA Negreteonocytes/100 WBC (Bld)6 %Normal4-8Prom[facility]ica Flower HospitalComment on above:Performed By: #### CP, CDP #### [facility] [address] [place] [address] Journeyman Wireman: Tomas Negrete (Seg)60 %Zatylb70-48GrgwkPromedica Flower HospitalComment on above:Performed By: #### CP, CDP #### [facility] [address] [place], [place] 15[address] Journeyman Wireman: Julia Negrete mean volume (Bld) [Entitic vol]9.9 fL Normal6.0-12.0[facility] on above:Performed By: #### CP, CDP #### [facility] [address] [id number] Journeyman Wireman: Erika Negrete (Bld) [#/Vol]277 10*3/iZPgggab773-868 [facility] Flower HospitalComcorewell health butterworth hospital on above:Performed By: #### CP, CDP #### [facility] [address] [place] [address] Journeyman Wireman: KISHORE Negrete (Bld) [#/Vol]5.26 10*6/uLHigh4.00-5.20[facility] on above:Performed By: #### CP, CDP #### [facility] [address] [id number] Journeyman Wireman: MAYRA NegreteBC (Bld) [#/Vol]10.0 10*3/uLNormal3.5-11.0[facility] on above:Performed By: #### CP, CDP #### [facility] [address] [id number] Journeyman Wireman: CHITO eNgreteomp Metabolic Profon 45-56-7416Ysbyrgw [Mass/Vol] 3.8 g/dLNormal3.5-5.2[facility] HospitalComcorewell health butterworth hospital on above:Performed By: #### CP, CDP #### [facility] [address] [phone] Journeyman Wireman: Matthew Dricsoll MDALT [Catalytic activity/Vol]17 U/LNormal5-33[facility] on above:Performed By: #### CP, CDP #### [facility] [address] [place] [address] Journeyman Wireman: Matthew Driscoll MDAnion gap [Moles/Vol]16 mmol/LNormal9-17Bon SecNorwalk Memorial HospitalComcorewell health butterworth hospital on above:Performed By: #### CP, CDP #### [facility] [address] [id number] Journeyman Wireman: Matthew Driscoll MDAST [Catalytic activity/Vol]12 U/LNormal<32[facility] on above:Performed By: #### CP, CDP #### [facility] [address] [place] [address] Journeyman Wireman: Matthew Driscoll MDBilirubin [Mass/Vol]0.6 mg/dLNormal0.3-1.2Bon SecNorwalk Memorial HospitalComcorewell health butterworth hospital on above:Performed By: #### CP, CDP #### [facility] [address] [address] Journeyman Wireman: Matthew Driscoll MDCalcium [Mass/Vol]9.8 mg/dLNormal8.6-10.4[facility]University [facility] on above:Performed By: #### CP, CDP #### [facility] [address] [place] [address] Journeyman Wireman: Matthew Driscoll MDChloride [Moles/Vol]87 mmol/ZOsg60-521Iyy SecUniversity Hospitals Geaug[facility] Center on above:Performed By: #### CP, CDP #### [facility] [address] [address] Journeyman Wireman: Matthew Driscoll MDCO2 [Moles/Vol]22 mmol/ICimsdq30-52Mum SecUniversity Hospitals [facility] on above:Performed By: #### CP, CDP #### [facility] [address] [place], [place] 35[address] Journeyman Wireman: Matthew Driscoll MDCreatinine [Mass/Vol]0.6 mg/dLNormal0.5-0.9Bon [facility] on above:Performed By: #### CP, CDP #### [facility] [address] [place], [place] 27[address]690 Journeyman Wireman: Matthew Driscoll MDGlucose [Mass/Vol]579 mg/dLCritically orqg32-92Tpt [facility] on above:Performed By: #### CP, CDP #### [facility] [address] [place] [address] Journeyman Wireman: Matthew Driscoll MDPotassium [Moles/Vol]4.4 mmol/LNormal3.7-5.3Bon [facility] on above:Performed By: #### CP, CDP #### [facility] [address] [phone] Journeyman Wireman: Matthew Driscoll MDProtein [Mass/Vol]7.5 g/dLNormal6.4-8.3Bon [facility] on above:Performed By: #### CP, CDP #### [facility] [address] [place] [address] Journeyman Wireman: GRABIEL Negreteodium [Moles/Vol]125 mmol/RJum971-044Sxf [facility] on above:Performed By: #### CP, CDP #### [facility] [address] [place] [address] Journeyman Wireman: Matthew Driscoll MDUrea nitrogen [Mass/Vol]21 mg/dLHigh6-20Bon [facility] on above:Performed By: #### CP, CDP #### [facility] [address] [place] [address] Journeyman Wireman: Elizabeth Negrete Ybrr131 U/DGror79-349PhzedPromedica Flower HospitalComment on above:Performed By: #### CP, CDP #### [facility] [address] [place] [address] Journeyman Wireman: Matthew Driscoll MDBUN/CRE Gqreo51Ohoe0-99DjbmrPromedica Flower Hospital Comment on above:Performed By: #### CP, CDP #### [facility] [address] [place] [address] Journeyman Wireman: Matthew Driscoll MDGFR/1.73 sq M.predicted among non-blacks MDRD (S/P/Bld) [Vol rate/Area]mL/min/{1.73_m2}Normal>60Prom[facility] Flower HospitalComment on above:Result Comment: These results are not intended for [...] or following therapy that affects renal tubular secretion.Performed By: #### CP, CDP #### [facility] [address] [place] [address] Journeyman Wireman: CHITO Negreteomprehensive Metabolic Panelon 50-37-4828DLM [Catalytic activity/Vol]173 U/LHigh35 - 104 U/LBon Shelby Memorial HospitalEst, Glom Filt Rate- PINFBon Shelby Memorial HospitalComment on above: These results are not intended [...] tubular secretion. Interpretation and review of laboratory resultsAbnormalBon [facility] Hospital Urea nitrogen/Creatinine [Mass ratio]35 mg/mgHigh9 - 20[facility] Bon [facility] Memorial HospitalGlucose, Whole Bloodon 00-54-7426Xpowhoc [Mass/Vol]316 mg/hRSpaw78 - 99 mg/dLBon Shelby Memorial HospitalInterpretation and review of laboratory resultsAbnormSouthampton Memorial Hospital Glucose [Mass/Vol]565 mg/dLCritically high65 - 99 mg/dLBon [facility] Interpretation and review of laboratory resultsAbnormLifePoint HospitalsGlucose,Whole Bloodon 46-76-0801Trbwnjr [Mass/Vol]316 mg/hMPbmw46-52Kkxak Berkeley HospitalGlucose [Mass/Vol]565 mg/dLCritically high 65-99MCincinnati Shriners HospitalPOCT glucoseon 59-32-4900Cpmzfsw [Mass/Vol]316 mg/dL [facility] Memorial HospitalInterpretation and review of laboratory resultsNormRussell County Medical Center [place]?yesCarilion [facility] POCT glucoseOrdered By: Karolina Trujillo on 89-95-0792Qirsxfg [Mass/Vol]565 mg/dL [facility] Memorial HospitalInterpretation and review of laboratory resultsNormRussell County Medical Center [place]?[facility] Venous Bld Gas,POCon 34-07-4901IDO621.0NormalPromedica Flower HospitalHCO3 (Bld) [Moles/Vol]23.5 mmol/VNwsvrn04.0-29.0[facility]lower HospitalOxygen saturation in Blood95.0 %High60.0-85.0[facility] F[facility] HospitalpCO2, Hksbjf42.2 mm HgLow41.0-51.0 [facility] HospitalpH,Venous7.887Ztlz1.320-7.430Prom[facility]ica Flower HospitalpO2, Jpxbqb37.8 mm WbOdfq32.0-50.0[facility] HospitalPositive Base Excess (calc) 0.4 mmol/LNormal0.0-3.0Prom[facility] Flower HospitalVenous Blood Gas, POCon 08-28-2024 IVF908.0[facility] Memorial HospitalHCO3 (Bld) [Moles/Vol]23.5 mmol/L22.0 - 29.0 mmol/LBon Sharp [facility] Vista HealthInterpretation and review of laboratory results AbnormalBon Shelby Memorial HospitalOxygen saturation in Blood95.0 %High60.0 - 85.0 %Bon [facility] Memorial HospitalpCO2, Ven33.2LowBon Sharp Mesa Vista HealthpH, Ven7.457 High7.320 - 7.430Bon [facility] HealthPO2, Ven70.8HighBon Sharp Mesa Vista HealthPositive Base Excess, Ven0.4 mmol/L0.0 - 3.0 mmol/LBon [facility] Memorial HospitalBon Sharp [facility] HealthOffice Visiton 43-18-7710Tbvzmv-up [id number] Escobar Ortega 1980 F Date Provider Department Center 02/05/2023 Theron8-FELIPA [facility] Family History Problem Relation Age of Onset Diabetes Father Coronary artery disease Father Kidney disease Father Family Status - Relation Status Age at Father Level of Service:17038 MS OFFICE/OUTPATIENT [facility] 30-[address] Vincent Medical CenterCardiovascular Reporton 01-25-2023 Cardiovascular [id number]#1.00CD:[address] [place], [place] [address]Consent for PICC lineon 68-81-4767Pszcyub for PICC [id number]#1.00CD:[address] [place], [place] [address]Discharge Instructionson 61-99-7583Tiubzvxiv Instructions [id number]#1.00CD:[address] [place], [place] [address]Pre-Certification Formon 88-34-6631Kas-Certification Form [id number]#1.00CD:[address] [place], [place] [address]BMPon 31-84-2208Ckgpj gap [Moles/Vol]12 mmol/LNormal6-16Grant HospitalComment on above:Performed By: #### 2529800, 3292803, 46123232, 337734642, 9872997, 3990411 #### [facility] [address] [place], [place] [address]Bfpdqpf [Mass/Vol]8.2 mg/dLLow8.9-11.1FSelect Medical Specialty Hospital - Boardman, IncComment on above:Performed By: #### 5669495, 9660555, 01310121, 069025792, 5387178, 7221465 #### [facility] [address] [place], [place] [address]Yahciphf [Moles/Vol]108 mmol/MQhargp601-779BuxrvnGrant HospitalComment on above:Performed By: #### 9411687, 7458417, 16317842, 048002271, 9806699, 8140461 #### [facility] [address] [place], [place] [address]XM3 [Moles/Vol]19 mmol/XBex97-70IyzaesGrant Hospital Comment on above:Performed By: #### 3888989, 4447816, 92051489, 900116428, 2561519, 4765601 #### [facility] [address] [place], [place] [address]Gxsydcwktl [Mass/Vol]0.5 mg/dLNormal0.5-1.3FSelect Medical Specialty Hospital - Boardman, IncComment on above:Performed By: #### 4226568, 5621907, 24631470, 928376572, 6788836, 4552203 #### [facility] [address], [place] [address]Madeoiq [Mass/Vol]183 mg/kWJeojvv29-637QobwopGrant HospitalComment on above:Result Comment: If this glucose result represents a fasting glucose, interpretation should refer tothe following reference range: 55-99 mg/dLPerformed By: #### 6186320, 2075183, 99534430, 109755874, 8934275, 9050705 #### [facility] [address], [place] [address]Ajciuvhgm [Moles/Vol]3.8 mmol/LNormal3.5-5.3FSelect Medical Specialty Hospital - Boardman, IncComment on above:Performed By: #### 9686676, 2974354, 03967453, 039513619, 3180505, 2805799 #### [facility] [address], [place] [address]Fjcrhq [Moles/Vol]135 mmol/XQiakeb560-274DpeofpGrant HospitalComment on above:Performed By: #### 6241755, 0383848, 09942869, 688948864, 8175955, 2204165 #### [facility] [address] [place], [place] [address]Roac nitrogen [Mass/Vol]11 mg/dLNormal5-21Grant HospitalComment on above:Performed By: #### 7553539, 3669965, 36429943, 053512996, 1675145, 7025683 #### [facility] [address] [place], [place] [address]Jxss nitrogen/Creatinine [Mass ratio]22 No DscfqQdny93-20IayerfGrant HospitalComment on above:Performed By: #### 6086308, 7855796, 02511569, 197327522, 7142836, 9740214 #### [facility] [address] [place] [address]YTT w/Indiceson 78-17-7008Qpkgrxruytn distribution width (RBC) [Ratio]14.2 %Pbzswh16.9-14.2FSelect Medical Specialty Hospital - Boardman, IncComment on above: Performed By: #### 5773819, 7695061, 44080350, 898032378, 0353868, 9480924 #### [facility] [address], [place] [address]Mdedfwqogg (Bld) [Volume fraction]38.3 %Ertzsc78.0-46.0Grant HospitalComment on above:Performed By: #### 6470098, 6347376, 48864594, 067475303, 2974275, 6762207 #### [facility] [address], [place] [address]Whromyhutd (Bld) [Mass/Vol]13.3 g/vCUdvtro26.0-16.0Grant HospitalComment on above:Performed By: #### 5544614, 8133260, 16148997, 519274302, 4817728, 4235159 #### [facility] [address], [place] [address]UOO (RBC) [Entitic mass]28.9 vvQrkdne85.0-34.0Grant HospitalComment on above:Performed By: #### 1970991, 3254255, 98417355, 082240599, 9884521, 0200863 #### [facility] [address] [place] [address]TPVA (RBC) [Mass/Vol]34.8 g/cJGeruii17.4-36.0Grant HospitalComment on above:Performed By: #### 7686576, 5415185, 05620990, 735413024, 9267048, 2305985 #### [facility] [address] [place] [address]EGL (RBC) [Entitic vol]83.1 nWGgalnd82.0-100.0Grant HospitalComment on above:Performed By: #### 5579285, 1248837, 29156888, 822304525, 1148745, 8921983 #### [facility] [address] [place] [address]Dvxzvtpc mean volume (Bld) [Entitic vol]8.6 fLNormal6.4-10.8 Grant HospitalComment on above:Performed By: #### 5263196, 4901066, 06293892, 791026389, 8268272, 5421131 #### [facility] [address] [place] [address]Fqozfepou (Bld) [#/Vol]237.0 E9/MWpzbdf566.0-500.0Grant HospitalComment on above:Performed By: #### 1078100, 3355015, 63345447, 551777258, 0681438, 9343217 #### [facility] [address], [place] [address]LPV (Bld) [#/Vol]4.6 E12/LNormal4.3-5.9Grant HospitalComment on above:Performed By: #### 6382668, 8099436, 16024448, 073956047, 7299436, 7567800 #### [facility] [address], [place] [address]HXL corrected for nucl RBC Auto (Bld) [#/Vol]9.5 E9/LNormal 4.0-11.0Grant HospitalComment on above:Performed By: #### 2151175, 1336116, 78373661, 068754042, 9738301, 1651011 #### [facility] [address], [place] [address]IFLCKEXWBVaezdze By: Lab ROPUser on 70-68-6928Enmzwvl [Mass/Vol]255 mg/cYTtrg84 - 99 mg/dLFTMC POC SubsectionComment on above:Result Comment: Notified RN/MDPOC Device [id number] Interpretation CodeFTMC POC SubsectionPOC User [id number] Interpretation CodeFTMC POC Subsection POC UsernameMEDINA, MARIAHInvalid Interpretation CodeFTMC POC SubsectionGlucose [Mass/Vol]192 mg/wHLyyx16 - 99 mg/dLFTMC POC SubsectionComment on above:Result Comment: Cleaned MeterPOC Device [id number] Interpretation CodeFTMC POC SubsectionPOC User [id number] Interpretation CodeFTMC POC Subsection POC UsernameETZHUMBLE AGUILAHALAInvalid Interpretation CodeFTMC POC Subsection CHEMISTRYOrdered By: SYSTEM SYSTEM on 01-39-9930Zynft gap [Moles/Vol]12 mmol/L Normal6 - 16 mEq/LFTMC RemisolCalcium [Mass/Vol]8.2 mg/dLLow8.9 - 11.1 mg/dLFT RemisolChloride [Moles/Vol]108 mmol/AYqospu380 - 111 mmol/LFTMC RemisolCO2 [Moles/Vol]19 mmol/LLow21 - 31 mmol/LFTMC RemisolCreatinine [Mass/Vol]0.5 mg/dL Normal0.5 - 1.3 mg/dLFTMC RemisolGFR/1.73 sq M.predicted among non-blacks MDRD (S/P/Bld) [Vol rate/Area]118 mL/min/1.73 c2Gmsnqt>=59mL/min/1.73 m2[facility] [place] Chem S Glucose [Mass/Vol]183 mg/aTCmtmwa86 - 199 mg/dLFT RemisolMagnesium [Mass/Vol] 1.5 mg/dLNormal1.3 - 2.4 mg/dLFT RemisolPotassium [Moles/Vol]3.8 mmol/LNormal 3.5 - 5.3 mmol/LFTMC RemisolSodium [Moles/Vol]135 mmol/GWilblu170 - 145 mmol/L [facility] [place] RemisolTroponin I.cardiac [Mass/Vol]1304.50 pg/mLInvalid Interpretation Code10.10 - 27.10 pg/mLCURAHEALTH [facility] [place] [facility] [place] RemisolComment on above:Result Comment: Critical Result verified by previous result\ Critical Result I_hsTnI:1304.5 Called to MICHELE HERRMANN at 3S by HARDEEP HANSEN and read back for confirmation at 01/23/2023 07:42:43Urea nitrogen [Mass/Vol]11 mg/dLNormal5 - 21 mg/dLFT RemisolUrea nitrogen/Creatinine [Mass ratio]22 mg/bbRwpa54 - 20FT RemisolCapillary Glucose POCon 06-27-3450Csgrbvs [Mass/Vol]255 mg/cEAiby39-58WjpivmGrant Hospital Comment on above:Result Comment: Notified RN/MDPerformed By: #### 5935230, 2421027, 93722518, 573164308, 2068313, 1535205 #### [facility] [address] [place] [address]Csekxtf [Mass/Vol]192 mg/yCFlzw39-26Bsd[address] [place] [address] Comment on above:Result Comment: Cleaned MeterPerformed By: #### [id number] ####[facility] [address] [place] [address] Consultation Noteon 31-58-1318Accnvekpjmot NoteChief Complaint chest pain radiating to arm and [...] HR: 94(Apical) RR: 18 BP: 157/83 SpO2: 99%WT: 83.7 kg General: alert, no acute distress [...] appropriate for agesensation equal & normal bilaterally, speechnormal Psychiatric: cooperative, affect appropriate for age, normal judgement, normal psychiatric thoughts. Images EKG: Normal sinus rhythm no ischemia Assessment/Plan 43-year-old female with non-STEMI. Significant risk factors. Suspect epicardial CAD. Recommend heart catheterization which we will do today urgently. Risks, benefits, alternatives, and personnel werediscussed at length and the patient agrees to [...] deep vein thrombosis (DVT) prophylaxis (Z79.899: Other nursing home (current) drug therapy) Orders: ticagrelor, 180 mg [...] 2 tab(s), Or (more content not included)... [facility] Private HospitalComment on above:Result Comment: Electronically Signed By: Kriss HAIDER, Abhishek Hagan\.br\Date and Time Signed: 01/22/23 22:12 EDTDischarge Note-Nursingon 82-16-8762Pobmbcvse Note-NursingPatient prescribed Brillinta for discharge. Her preferred pharmacy is [facility] in [place] which does not have Brillinta in stock until Wednesday. This RN asked patient to switch pharmacy for this medication so she could berry picker today. Patient refuses to switch pharmacies. She states her sister will not take her to any other pharmacy to pick this up. Per Dr. Lawrence, ok to pull 4 Brillinta to send home with patient to have enough until she can berry picker the medication from her pharmacy.Normal Grant HospitalHEMATOLOGYOrdered By: Cristin Ibarra on 01-23-2023 Erythrocyte distribution width (RBC) [Ratio]14.2 %Uaennr08.9 - 14.2 %[facility] HemeAutoSSHematocrit (Bld) [Volume fraction]38.3 %Fmsbqb72.0 - 46.0 %[facility] HemeAutoSSHemoglobin (Bld) [Mass/Vol]13.3 g/rRQvgrfm48.0 - 16.0 gm/dLFTMC HemeAutoSSMCH (RBC) [Entitic mass]28.9 ztAeeqaj12.0 - 34.0 pgFTMC HemeAutoSSMCHC (RBC) [Mass/Vol]34.8 g/gCTvllhf06.4 - 36.0 gm/dLFTMC HemeAutoSSMCV (RBC) [Entitic vol]83.1 jIOifauy25.0 - 100.0 fLFT HemeAutoSSPlatelet mean volume (Bld) [Entitic vol]8.6 fLNormal6.4 - 10.8 fLFTMC HemeAutoSSPlatelets (Bld) [#/Vol]237.0 E9/LKcdzju789.0 - 500.0 E9/LFTMC HemeAutoSSRBC (Bld) [#/Vol]4.6 E12/LNormal4.3 - 5.9 E12/LFTMC HemeAutoSSWBC corrected for nucl RBC Auto (Bld) [#/Vol]9.5 E9/LNormal4.0 - 11.0 E9/LFTMC HemeAutoSSInpatient Clinical Summaryon 04-24-9642Rrtacskyf Clinical Summary [address] [address] Clinical Summary Person Information: Name: ESCOBAR ORTEGA Age: 43 Years : 1980 Sex: Female PCP: Gentry Carrillo MD Marital Status: Phone: [phone] Race: White Ethnicity: Non- or Language: Bermudian Visit Id: Visit Reason: Chest pain; CHEST PAIN Speciality: Acuity: Enc Type: Observation Med Service: Medical Arrival: 01/21/2023 16:19:22 Discharge: Dispo Type: Admitted as IP to this Hosp Address: [address] [phone] Provider Notes: Diagnosis: 1:NSTEMI (non-ST elevation myocardial [...] Immunizations Documented This Visit Final Med List: acetaminophen-hydrocodone (Vicodin 500mg-5mg Tab) 1 Tablets By Mouth [...] Follow up: With: Address: When: Abhishek Monterroso [address] [place] [address] Business (1) Within 2 weeks Comments: Call for followup appointment With: Address: When: Gentry Carrillo [address] [place] [address] [place] [address] Business (1) 01/27/2023 9:30 AM Patient Education Information: CV - Cardiovascular PCI Discharge Instructions (CUSTOM)[facility] HospitalInpatient Patient Summaryon 63-44-3883Tnxspiezd Patient Summary ESCOBAR ORTEGA :1980 Visit Date:01/21/2023 [...] care physician. This Is Your Medications List acetaminophen-hydrocodone (Vicodin 500mg-5mg Tab) aspirin (aspirin 81 mg [...] When: 01/27/2023 09:30 AM EDT Where: [address] [place] [address]- Business (1) Follow Up with Abhishek Monterroso When: Within 2 weeks Comments: Call for followup appointment Where: [address] [place] [address]- Business (1) Medications What How Much When Why Instructions Next Dose New aspirin (aspirin 81 mg Oral EC Tab) 1 Tablets By Mouth Every day Refills: 1 Pickup at [facility] #[id number] 01/24 New atorvastatin (Lipitor 80 mg Tab) 1 Tablets By Mouth Every day Refills: 1 Pickup at [facility] #[id number] 01/24 New metoprolol (Metoprolol tartrate 25 mg Tab) 1 Tablets By Mouth 2 times a day Refills: 1 Pickup at [facility] #[id number] 01/23 9:00pm New nitroglycerin (nitroglycerin 0.4 mg sublingual Tab) 1 Tablets Sublingual Every 5 minutes as needed for Chest pain not to exceed 3 doses/ 15 min--if pain persists, seek medical attention [id number] New ticagrelor (Brilinta (ticagrelor) 90 mg oral tablet) 1 Tablets By Mouth 2 times a day Chest pain Elevated troponin NSTEMI (non-ST elevation myocardial infarction) Hypertensive urgency Right shoulder pain [facility]: [id number] 01/23 9:00pm Changed insulin glargine (Lantus insulin) 20 Units Subcutaneous Once a day (at bedtime) Unchanged acetaminophen-hydrocodone (Vicodin 500mg-5mg Tab) 1 Tablets By Mouth [...] times a day as needed for as neededfor pain Unchanged lisinopril (lisinopril 20 mg Tab) 1 Tablets By Mouth Every day 01/24 Unchanged metformin (metformin 500 mg Tab) 1 Tablets By Mouth 2 times a day 01/23 9:00pm Pharmacy Information [id number]: [address] [place] [address] [phone] What How Much When Comments Stop Taking naproxen (naproxen sodium 550 mg Tab) 1 Tablets By Mouth 2 times a day Test Results CBC BMP WBC: 9.5 E9/L (01/23/23 06:23:00) Glucose Lvl: 183 mg/dL (01/23/23 06:23:00) RBC: 4.6 E12/L (01/23/23 06:23:00) BUN: 11 mg/dL (01/23/23 06:23:00) HGB: 13.3 gm/dL (01/23/23 06:23:00) Creatinine: 0.5 mg/ (more content not included)...[facility] [address] [address] Patient Discharge Instructions PERSON INFORMATION [...] Follow up: With: Address: When: Abhishek Monterroso [address] [place] [address] Business (1) Within 2 weeks Comments: Call for followup appointment With: Address: When: Gentry Carrillo [address] [place] [address] [place] [address] Business (1) 01/27/2023 9:30 AM In the event that this physician does not participate in your insurance network, please consult with your insurance company to find a nearby participating provider. Comment: IJORDAN CHRYSTAL D, have received the attached patient education materials/instructions and have verbalized understanding: Patient Signature Date [...] Injection-Insulin) 20 Units Subcutaneous once a day (atbedtime). Medications to Continue with No Changes Other Medications acetaminophen-hydrocodone (Vicodin 500mg-5mg Tab) 1 Tablets By Mouth [...] a day. Comment: MEDICATIO (more content not included)...[facility] Interdisciplinary Note - Case Manageron 56-10-6489Prxdyoyhskcsmrqqh Note - Case ManagerPt is awake and alert in bed, previously [...] boyfriend and her sister will transport at [place]. . PCP verified and insurance informationreviewed and DME discussed. Contact information provided and white board updated.[facility] Comment on above:Result Comment: Electronically Signed By: Todd CASEY, Jeanie\.brenna\Date and Time Signed: 01/23/23 12:44 EDTInterdisciplinary Note - Nursingon 80-39-1691Orfatlnxyjzrgkipu Note - NursingPatient prescribed Brillinta for discharge. Her preferred [facility] [place], will not have any of this medication until Wednesday. Patient refuses to switch pharmacies at this time to berry picker enough to last her through the weekend. She states her sister will not take her to any other pharmacy. Per Dr. Lawrence, ok to pull 4 doses of Brillinta 90mg from RX station to send home with patient until she can berry picker medication on Wednesday. Education provided to patient on importance of taking Brillinta exactly how it is prescribed. Informed patient that if she cannot get the rest of her Brillinta on Wednesday for any reason to contact the guest service representative or hospital salon supervisor per Dr. Lawrence.[facility] HospitalMagnesiumon 49-95-9373Ziknfhwzk [Mass/Vol]1.5 mg/dLNormal1.3-2.4[facility] Comment on above:Performed By: #### 7050306, 3254478, 75839813, 183315961, 5841102, 1101284 #### [facility] [address] [place], [place] [address]Yybgupx Recordon 95-47-2808Tpvwgup Record [id number]#1.00CD:127No[facility] [id number]#1.00CD:127[facility] Record [id number]#1.00CD:127No[facility] [id number]#1.00CD:[address] [place], [place] [address]Operative Reporton 34-41-2425Qixxskcmp Report Indication for Surgery Non-STEMI Preoperative Diagnosis [...] patient will additionally be counseled by the Able Bodied Watchman team and in follow-up. Complications None Technique Following full and informed consent the patient was brought to the Able Bodied Watchman where sterile prep and drape were administered in usual fashion. Anesthesia was obtained in the right wrist with lidocaine after administration of conscious sedation. A 5/6 slender Terumo sheath was placed in the right radial artery without complication. Nitroglycerin and nicardipine were given via the sheath and heparin was given intravenously. A 5 Occitan JACKE catheter was advanced and selectively engaged in the left main coronary artery and right coronary artery each, where selective injections were performed. A pigtail catheter was placed in the left ventricle where hemodynamic measurements the left ventricle were made and a bolus was given for left ventriculography. A pullback gradient was obtained. A 6 Occitan jl3.5 catheter was advanced and selectively engaged [...] was removed with hemostasis obtained by D-Stat radialdevice at the end of the procedure without complication.[facility] HospitalComment on above:Result Comment: Electronically Signed By: Kriss HAIDER, Abhishek Hagan\.br\Date and Time Signed: 01/22/23 22:16 EDTProgress Note-Physicianon 31-26-6289Ywdabqnp Note-PhysicianPatient with recent non-STEMI and stent placement who is on Brilinta. Prescription sent to her pharmacy and they will not have it available till Wednesday. Patient is not willing to change her pharmacy to fill it somewhere else. She is medically stable for discharge and guest service representative cleared her. We will give for Brilinta from here in order to get her through the weekend and prevent in-stent rethrombosis and potential complication. Nurse will give for medications which will cover patient until Wednesday morning and if any issue patient is to call salon supervisor or guest service representative to get it filled somewhere else.[facility] HospitalComment on above:Result Comment: Electronically Signed By: Joe LAWRENCE MD\.br\Date and Time Signed: 01/23/23 16:12 EDTProgress Note-PhysicianAssessment/Plan 40-year-old female noncigarette smoker with history of [...] lisinopril, Lopressor. Treated with Lovenox. Ordered: [facility] Hospital Care/Day Moderate 35 Minutes 29390 2. Coronary artery disease (I25.10: Atherosclerotic heart disease of [place] coronary artery withoutangina pectoris) As seen on cardiac catheterization. Patient has coronary artery disease with mid left circumflex artery occlusion requiring 1 drug-eluting stent placement on 01/22/2023. Continue on aspirin, Brilinta, Lipitor, lisinopril and Lopressor. Ordered: [facility] Care/Day Moderate 35 Minutes 14417 3. Chest pain (R07.9: Chest pain, unspecified) Secondary to above. Resolved. Ordered: [facility] Care/Day Moderate 35 Minutes 42162 4. Elevated troponin (R77.8: Other specified abnormalities of plasma proteins) Secondary to above. Resolved. [facility] Mod[facility] 35 Minutes 19273 5. Hypertensive urgency (I16.0: Hypertensive urgency) Resolved. Continue on lisinopril and metoprolol. Ordered: [facility] Care/Day Moderate 35 Minutes 54239 6. Right shoulder pain (M25.511: Pain in right shoulder) Secondary to above #1. With atypical presentation. Ordered: [facility] Care/Day Moderate 35 Minutes 54333 7. Leukocytosis (D72.829: Elevated white blood cell [...] deep vein thrombosis (DVT) prophylaxis (Z79.899: Other nursing home (current) drug therapy) SCDs. Disposition: Home either today or in a.m. pending cardiology final recommendations. I discussed the diagnosis and plan of care with the patient at the bedside. Moderate level of MDM based on addressing above issues. This documentation was transcribed using voice recognition software. Several attempts were made to ensure accuracy. However inadvertent computerized water and sewer systems superintendent errors may be present. Ellie Obando. Hospitalist. [...] TransDermal, Once, Stop date 01/22/23 12:00:00 EDT, Routine,Start date 01/22/23 12:00:00 EDT, Vancomycin Pharmacy to [...] hydrALAZINE mL -- 0 (more content not included)...NormalGrant HospitalComment on above:Result Comment: Electronically Signed By: GAGE HAIDER, Ellie\.br\Date and Time Signed: 01/23/23 09:13 EDTTroponinon 16-64-3899Mmyaeioe I.cardiac [Mass/Vol]1304.50 pg/rOAhjjsahl33.10-27.10Grant HospitalComment on above:Result Comment: Critical Result verified by previous result\ Critical Result [...] Troponin I Instructions For Use, Son [place], March 2018)Performed By: #### 3325648, 3206114, 67908724, 313043992, 4331186, 2219272 #### [facility] [address] [place], [place] [address]aRERxx 63-13-3969EWQ/1.73 sq M.predicted among non-blacks MDRD (S/P/Bld) [Vol rate/Area]118 mL/min/1.73 p5Jtdvgr>=59[facility] Comment on above:Order Comment: Order added by Discern Expert.Result Comment: Chronic kidney disease could be indicated at eGFR's of less than 60 mL/min/1.73m2. Kidney failure is indicated at less than 15 mL/min/1.73m2. Performed By: #### 2074318, 3291505, 53404389, 675532906, 3727937, 1961957 #### [facility] [address], [place] [address]Bmgd Diffon 95-80-4348Fxukavbbl/100 WBC (Bld)0.4 %Normal0.0-2.0 Grant HospitalComment on above:Order Comment: Order Added by Discern Expert.Performed By: #### 8346607, 0654764, 33858480, 052190643, 7932340, 4404753 #### [facility] [address] [place] [address]Asvtrqwxi/Leukocytes Auto (Bld) [Pure # fraction]0.0 E9/LNormal 0.0-0.2FSelect Medical Specialty Hospital - Boardman, IncComment on above:Order Comment: Order Added by Discern Expert.Performed By: #### 9358805, 3303976, 33496078, 705209320, 6880105, 4320457 #### [facility] [address] [place] [address]Pdqmwkpxmun/100 WBC (Bld)0.2 %Normal0.0-8.0Grant HospitalComment on above:Order Comment: Order Added by Discern Expert.Performed By: #### 5035233, 6405059, 60925572, 184398782, 0223626, 5237332 #### [facility] [address] [place] [address]Gtvdcbyltzr/Leukocytes Auto (Bld) [Pure # fraction]0.0 E9/L Normal0.0-0.5FSelect Medical Specialty Hospital - Boardman, IncComment on above:Order Comment: Order Added by Discern Expert.Performed By: #### 9580342, 2477798, 54291156, 783196194, 7441708, 4077926 #### [facility] [address] [place] [address]Tnssqjheupf/100 WBC (Bld)24.9 %Elhznq94.0-50.0Grant HospitalComment on above:Order Comment: Order Added by Discern Expert. Performed By: #### 6232645, 3999346, 98030152, 205439220, 7735965, 6097552 #### [facility] [address] [place] [address]Zwopobnjpsa/Leukocytes Auto (Bld) [Pure # fraction]2.6 E9/L Normal1.0-4.0Grant HospitalComment on above:Order Comment: Order Added by Discern Expert.Performed By: #### 7816349, 2787663, 79506692, 574909116, 7438542, 9480775 #### [facility] [address], [place] [address]Ossdrczee/100 WBC (Bld)4.6 %Normal4.0-14.0Grant HospitalComment on above:Order Comment: Order Added by Discern Expert.Performed By: #### 5672621, 6812028, 13660099, 660297856, 9359594, 2017642 #### [facility] [address] [place] [address]Gusfabaqm/Leukocytes Auto (Bld) [Pure # fraction]0.5 E9/LNormal 0.2-1.0Grant HospitalComment on above:Order Comment: Order Added by Discern Expert.Performed By: #### 4938915, 4623717, 13018187, 934576172, 2250476, 5389964 #### [facility] [address] [place] [address]Zhfazvuhnur/100 WBC (Bld)69.9 %Ncjehn61.0-75.0Grant HospitalComment on above:Order Comment: Order Added by Discern Expert. Performed By: #### 6992025, 0867631, 79373443, 089917395, 2856778, 0425172 #### [facility] [address] [place] [address]Jzkjpxbxlzs/Leukocytes Auto (Bld) [Pure # fraction]7.4 E9/L Normal2.0-7.5FSelect Medical Specialty Hospital - Boardman, IncComment on above:Order Comment: Order Added by Discern Expert.Performed By: #### 2878178, 4219951, 84074699, 106746433, 0837712, 4121043 #### [facility] [address] [place] [address] 001[address]KIQoj 35-65-3645Rnopd gap [Moles/Vol]5 mmol/LLow6-16Grant HospitalComment on above:Performed By: #### 8001265, 1933950, 42794401, 431635504, 1383174, 0793378 #### [facility] [address] [place], [place] [address]Okssskp [Mass/Vol]8.0 mg/dLLow8.9-11.1FSelect Medical Specialty Hospital - Board[facility], IncComment on above:Performed By: #### 8649819, 3246384, 41421172, 368058079, 8524881, 2221142 #### [facility] [address], [place] [address]Fanhouxs [Moles/Vol]107 mmol/PAubiii305-058KhvvxlGrant HospitalComment on above:Performed By: #### 4434618, 7691879, 21104003, 991676383, 5946868, 9954827 #### [facility] [address], [place] [address]JW1 [Moles/Vol]23 mmol/YBznvxs79-74YorvgtGrant Hospital Comment on above:Performed By: #### 6474995, 4523511, 01805952, 156862731, 2760501, 7564617 #### [facility] [address], [place] [address]Ubipcwumny [Mass/Vol]0.6 mg/dLNormal0.5-1.3FSelect Medical Specialty Hospital - Board[facility], IncComment on above:Performed By: #### 0067650, 7479267, 10839929, 219898207, 8217680, 6642497 #### [facility] [address], [place] [address]Eytktml [Mass/Vol]293 mg/gDXgcs76-792ThclskGrant HospitalComment on above:Result Comment: If this glucose result represents a fasting glucose, interpretation should refer tothe following reference range: 55-99 mg/dLPerformed By: #### 6190192, 0245837, 01916786, 544346092, 7629082, 5641682 #### [facility] [address], [place] [address]Afgwsahoe [Moles/Vol]4.0 mmol/LNormal3.5-5.3FSelect Medical Specialty Hospital - Board[facility], IncComment on above:Performed By: #### 4924441, 5133282, 46607626, 575082179, 9709563, 6772979 #### [facility] [address], [place] [address]Zpzsvt [Moles/Vol]131 mmol/VUvw961-710MkojzqGrant HospitalComment on above:Performed By: #### 8260426, 0740314, 41630196, 660256427, 6418963, 4809471 #### [facility] [address] [place], [place] [address]Rfex nitrogen [Mass/Vol]20 mg/dLNormal5-21Grant HospitalComment on above:Performed By: #### 3256260, 5984299, 80173539, 882050191, 4742139, 4017724 #### [facility] [address], [place] [address]Cbjp nitrogen/Creatinine [Mass ratio]33 No DfzkwJdea69-55XntaesGrant HospitalComment on above:Performed By: #### 3999780, 3311433, 68861023, 295661791, 8279242, 5909294 #### [facility] [address] [place] [address]BKM w/ Auto Diffon 83-29-7319Uoskvbqeooc distribution width (RBC) [Ratio]14.0 %Ffdzqw65.9-14.2FSelect Medical Specialty Hospital - Board[facility], IncComment on above: Performed By: #### 7500182, 6767421, 21928646, 476972013, 1080603, 8708351 #### [facility] [address] [place], [place] [address]Yshmzzlbol (Bld) [Volume fraction]35.5 %Biacej52.0-46.0Grant HospitalComment on above:Performed By: #### 9513949, 7519081, 00906788, 716652332, 2727071, 1403584 #### [facility] [address] [place] [address]Ipdzcwmesh (Bld) [Mass/Vol]12.5 g/rIPljqeb29.0-16.0Grant HospitalComment on above:Performed By: #### 8584572, 0430034, 37993088, 306913137, 6780830, 8833309 #### [facility] [address] [place] [address]TTZ (RBC) [Entitic mass]28.6 mwWfvuho83.0-34.0Grant HospitalComment on above:Performed By: #### 9592551, 2870084, 78803423, 070559098, 4106293, 4955345 #### [facility] [address] [place] [address]XVLE (RBC) [Mass/Vol]35.1 g/wIHjxong68.4-36.0Grant HospitalComment on above:Performed By: #### 2551925, 6431436, 53086222, 181729933, 3754067, 2677083 #### [facility] [address] [place] [address]ZFC (RBC) [Entitic vol]81.5 nJOyworq39.0-100.0Grant HospitalComment on above:Performed By: #### 4949832, 5713139, 27453751, 221525768, 3257792, 1022898 #### [facility] [address] [place] [address]Vaukdvlk mean volume (Bld) [Entitic vol]8.9 fLNormal6.4-10.8 Grant HospitalComment on above:Performed By: #### 3253231, 0932459, 96767272, 222064661, 5866237, 8303860 #### [facility] [address] [place] [address]Kerhhnhgs (Bld) [#/Vol]246.0 E9/PVaaosq508.0-500.0Grant HospitalComment on above:Performed By: #### 0307659, 2682166, 39660639, 966881479, 5096918, 7523993 #### [facility] [address], [place] [address]IPW (Bld) [#/Vol]4.4 E12/LNormal4.3-5.9Grant HospitalComment on above:Performed By: #### 0420908, 2778331, 69582294, 436674639, 2333941, 4375659 #### [facility] [address], [place] [address]QVM corrected for nucl RBC Auto (Bld) [#/Vol]10.6 E9/LNormal 4.0-11.0Grant HospitalComment on above:Performed By: #### 6364779, 4539508, 92481712, 736616847, 8619083, 8924531 #### [facility] [address], [place] [address]ANZCPURYNHbuakig By: Will Ash on 42-21-5719Fughcwc [Mass/Vol]378 mg/aKBwyv42 - 99 mg/dLCURA[facility] [place] [facility] [place] POC SubsectionComment on above:Result Comment: Notified RN/MDPOC Device [id number] Interpretation CodeFT POC SubsectionPOC User [id number] Interpretation CodeCURAHEALTH H[facility] [place] [facility] [place] POC Subsection POC UsernamEdson Arnoldvalid Interpretation CodeCURAHEALTH [facility] [place] [facility] [place] POC Subsection CHEMISTRYOrdered By: Jenn Lisa on 70-21-4750Woujz gap [Moles/Vol]5 mmol/L Low6 - 16 mEq/LFTMC RemisolCalcium [Mass/Vol]8.0 mg/dLLow8.9 - 11.1 mg/dLCURAHEALTH [facility] [place] [facility] [place] RemisolChloride [Moles/Vol]107 mmol/LTynodo583 - 111 mmol/LFTMC Remisol Cholesterol [Mass/Vol]205 mg/cTUjap751 - 200 mg/dLCURAHE[facility] [place] [facility] [place] RemisolCholesterol in HDL [Mass/Vol]35 mg/dLInvalid Interpretation CodeFT RemisolCholesterol in LDL [Mass/Vol]115 mg/dLNormal<=129mg/dLFT RemisolCholesterol in VLDL [Mass/Vol]60 mg/dLHigh7 - 40 mg/dLFT RemisolCO2 [Moles/Vol]23 mmol/OAawioq55 - 31 mmol/L FT RemisolCreatinine [Mass/Vol]0.6 mg/dLNormal0.5 - 1.3 mg/dLFT Remisol Glucose [Mass/Vol]293 mg/lXPrzc09 - 199 mg/dLFT RemisolPotassium [Moles/Vol] 4.0 mmol/LNormal3.5 - 5.3 mmol/LFTMC RemisolSodium [Moles/Vol]131 mmol/RWsh245 - 145 mmol/LFTMC RemisolTriglyceride [Mass/Vol]300 mg/dLHigh<=149mg/dLFT RemisolUrea nitrogen [Mass/Vol]20 mg/dLNormal5 - 21 mg/dLFTMC RemisolUrea nitrogen/Creatinine [Mass ratio]33 mg/obGqol08 - 20FT RemisolCHEMISTRYOrdered By: SYSTEM SYSTEM on 15-37-3010CFN/1.73 sq M.predicted among non-blacks MDRD (S/P/Bld) [Vol rate/Area]113 mL/min/1.73 g5Xremmx>=59mL/min/1.73 m2[facility] [place] [facility] [place] Chem S Troponin I.cardiac [Mass/Vol]445.10 pg/mLInvalid Interpretation Code10.10 - 27.10 pg/mLMC RemisolComment on above:Result Comment: Critical Result verified by previous result\ Critical Result I_hsTnI:445.1 Called to ROSSY MOE at 3N by VERONIQUE REID and read back for confirmation at 01/22/2023 01:58:36 CHEMISTRYOrdered By: Christiano Clay on 18-66-4473OwY2b (Bld) [Mass fraction] 11.1 %High<=5.9%[facility] [place] ChemAutoSSCapillary Glucose POCon 23-34-6484Fjmzqok [Mass/Vol]378 mg/rVLzwt47-33Fqdehk93 Galleg[address] StreetComment on above:Result Comment: Notified RN/MDPerformed By: #### [id number] ####[facility] [address] [place], [place] [address]Tmqvrlo [Mass/Vol]245 mg/dL [address] StreetComment on above:Result Comment: Notified RN/MDPerformed By: #### 7343742, 8057879, 95815145, 854434318, 4354389, 0993821 #### [facility] [address] [place], [place] [address]Kfrkidx [Mass/Vol]268 mg/jFYgqx77-26Lwntge[address] Comment on above:Result Comment: Notified RN/MDPerformed By: #### [id number] ####[facility] [address] [place] [address] Glucose [Mass/Vol]215 mg/iMEmix42-32Uqxxtt93 Galleg[address] StreetComment on above: Result Comment: Notified RN/MDPerformed By: #### [id number] ####[facility] [address] [place], [place] [address]Ruipwdc [Mass/Vol]378 mg/sCOain64-94Tqrfjy93 [address]leg[address] StreetComment on above:Result Comment: Notified RN/MDPerformed By: #### 2790466, 6694666, 90863652, 527553495, 8556064, 5092463 #### [facility] [address] [place], [place] [address]Ewxzjxsogzfsdt Reporton 15-42-0212Wbvxyydaehqtol Report [id number]#2.00CD:127NormalGrant HospitalHEMATOLOGYOrdered By: SYSTEM SYSTEM on 78-12-2099Gdtudmzet/100 WBC (Bld) 0.4 %Normal0.0 - 2.0 %[facility] HemeAutoSSBasophils/Leukocytes Auto (Bld) [Pure # fraction]0.0 E9/LNormal0.0 - 0.2 E9/LFTMC HemeAutoSSEosinophils/100 WBC (Bld)0.2 %Normal0.0 - 8.0 %[facility] HemeAutoSSEosinophils/Leukocytes Auto (Bld) [Pure # fraction]0.0 E9/LNormal0.0 - 0.5 E9/LFTMC HemeAutoSSLymphocytes/100 WBC (Bld) 24.9 %Mcipow95.0 - 50.0 %[facility] HemeAutoSSLymphocytes/Leukocytes Auto (Bld) [Pure # fraction]2.6 E9/LNormal1.0 - 4.0 E9/LFTMC HemeAutoSSMonocytes/100 WBC (Bld)4.6 %Normal4.0 - 14.0 %[facility] HemeAutoSSMonocytes/Leukocytes Auto (Bld) [Pure # fraction]0.5 E9/LNormal0.2 - 1.0 E9/LFTMC HemeAutoSSNeutrophils/100 WBC (Bld) 69.9 %Wsajrt12.0 - 75.0 %[facility] HemeAutoSSNeutrophils/Leukocytes Auto (Bld) [Pure # fraction]7.4 E9/LNormal2.0 - 7.5 E9/LFTMC HemeAutoSSHEMATOLOGYOrdered By: Anabella Tiwari on 29-16-5793Cmatpczjtbn distribution width (RBC) [Ratio]14.0 % Ltltps40.9 - 14.2 %[facility] HemeAutoSSHematocrit (Bld) [Volume fraction]35.5 %Normal 34.0 - 46.0 %[facility] HemeAutoSSHemoglobin (Bld) [Mass/Vol]12.5 g/eRWimizj00.0 - 16.0 gm/dLFTMC HemeAutoSSMCH (RBC) [Entitic mass]28.6 baMforrk42.0 - 34.0 pgFTMC HemeAutoSSMCHC (RBC) [Mass/Vol]35.1 g/eZUkyfso47.4 - 36.0 gm/dLFTMC HemeAutoSS MCV (RBC) [Entitic vol]81.5 jCIkoare34.0 - 100.0 fLFTMC HemeAutoSSPlatelet mean volume (Bld) [Entitic vol]8.9 fLNormal6.4 - 10.8 [facility] HemeAutoSSPlatelets (Bld) [#/Vol]246.0 E9/KMnfavr340.0 - 500.0 E9/[facility] HemeAutoSSRBC (Bld) [#/Vol] 4.4 E12/LNormal4.3 - 5.9 E12/[facility] HemeAutoSSWBC corrected for nucl RBC Auto (Bld) [#/Vol]10.6 E9/LNormal4.0 - 11.0 E9/[facility] GfpwSiadQNDnmS3iit 01-22-2023 HbA1c (Bld) [Mass fraction]11.1 %High<=5.9Grant HospitalComment on above:Performed By: #### 4203901, 9410643, 84904114, 172370296, 9637672, 0751049 #### [facility] [address] [place], [place] [address]Qacswydkcxeexcpvp Note - Case Manageron 01-22-2023 Interdisciplinary Note - Case ManagerCRM entered the room to discuss dc planning. Contact information provided and whiteboard updated. Pt is getting testing. Pending cardiology. ANt dc today. CRM to follow.[facility] HospitalComment on above:Result Comment: Electronically Signed By: Cristin Shane.brenna\Date and Time Signed: 01/22/23 10:52 EDTLipid Panelon 01-22-2023 Cholesterol [Mass/Vol]205 mg/eHMtya122-588MacdysGrant HospitalComment on above:Performed By: #### 0846364, 6756988, 77452754, 404727296, 5681208, 6699799 #### [facility] [address] [place], [place] [address]Wpfwzfoxdlm in HDL [Mass/Vol]35 mg/dLInvalid Interpretation CodeGrant HospitalComment on above:Result Comment: HDL > or equal to 60 mg/dL: Low cardiovascular risk HDL < 40 mg/dL : High cardiovascular riskPerformed By: #### 9806792, 6728513, 11849311, 158045351, 2010905, 1432703 #### [facility] [address] [place], [place] [address]Vobwjdqjkny in LDL [Mass/Vol]115 mg/dLNormal<=129Grant HospitalComment on above:Performed By: #### 2731715, 1649338, 34088787, 831695495, 4689017, 3035341 #### [facility] [address] [place], [place] [address]Omvyplzlfnc in VLDL [Mass/Vol]60 mg/dLHigh7-40Grant HospitalComment on above:Performed By: #### 1736056, 3965909, 82897941, 401823921, 3042469, 2896464 #### [facility] [address] [place], [place] [address]Xbgbnnrjkpoc [Mass/Vol]300 mg/dLHigh<=149Grant HospitalComment on above:Performed By: #### 4627356, 8742996, 61904692, 171306733, 1564675, 9642709 #### [facility] [address] [place], [place] [address]Zdssypc Recordon 79-59-0757Qokonir Record [id number]#1.00CD:127NormAkron Children's Hospitalitor [id number]#1.00CD:127Normal Grant HospitalMonitor Record [id number]#1.00CD:127NormAkron Children's Hospitalitor [id number]#1.00CD:127Normal Grant HospitalPre-Certification Formon 27-59-2374Lcn-Certification [id number]#1.00CD:127NoSelect Medical Specialty Hospital - YoungstownProgress Note-Nurseon 72-99-8527Erlhlcwp Note-NurseReport given to JACINTO Burgos, who is taking over patient's care in room 328. Loretta made aware thatpatient currently down in CV Lab. Patient's belongings taken to room 328. Patient's family member also taken down to room 328.[facility] Note-NurseThis technical proposal writer was notified by Dr. Obando at 1303 that patient will go for heart catheterization today. Per Dr. Obando, hold lovenox and make patient NPO. This technical proposal writer will do at this time and notify patient of plan of care.[facility] Note-NurseThis technical proposal writer entered the patient's room to place lidocaine patch on patient's right shoulder. Patient stated that she is having 7/10 right shoulder pain with tears in her eyes. Patient continues to deny chest pain. Lidocaine patch placed on patient's right shoulder. Blood pressure rechecked- 156/93.Patient did state that she was moving boxes back in November and when she was moving, her right arm would intermittently hurt. This technical proposal writer asked patient if there was anything she could do to help the patient any further, but patient denied any further needs. This technical proposal writer will notify Dr. Obando that patient has had previous right shoulder pain when moving boxes back in November.[facility] Note-NurseThis technical proposal writer was notified by the person performing the echo that patient was having 10/10 right shoulder pain at 10:08. This technical proposal writer entered the patient's room to personally assess the patient. Patientstated she was having 10/10 right shoulder pain, but denied having chest pain. Morphine was given at 10:10. Patient stated at 10:12 right shoulder pain was now 6/10, with no chest pain. This technical proposal writer personally spoke with Dr. Obando on the phone, who stated to have an EKG performed after the Echo and that he would order a lidocaine patch. This technical proposal writer notified both patient and Rema, with radiology that was in the patient's room.[facility] Note-NursePatient's step mother called, Chari, requesting updates. Chari not listed in contacts. This technical proposal writer a sked patient if it was okay to give Chari updates. Patient stated, yes. This technical proposal writer updated [place] plan of care. Chari had no further questions at this time.[facility] HospitalProgress [facility]icianon 01-22-2023 Progress Note-PhysicianAssessment/Plan 43-year-old female noncigarette smoker with history of diabetes mellitus, hypertension, obesity presented with chest pain, right shoulder pain and admitted with chest pain, elevated troponin, leukocytosis, hyperglycemia, hyponatremia, metabolic acidosis, right shoulder pain. 1. Chest pain (R07.9: Chest pain, unspecified) Chest pain? secondary to acute coronary syndrome. Resolved. Continue on aspirin, nitroglycerin as needed, morphine and oxygen. Cardiology consult pending. Ordered: [facility] Care/Day Moderate 35 Minutes 63847 2. Elevated troponin (R77.8: Other specified abnormalities of plasma proteins) Elevated troponin?secondary to NSTEMI. Cardiology consult pending. Continue on aspirin, Lipitor, Lovenox. Echocardiogram pending. Ordered: [facility] Care/Day Moderate 35 Minutes 59984 3. NSTEMI (non-ST elevation myocardial infarction) (I21.4: Non-ST elevation (NSTEMI) myocardial infarction) Acute NSTEMI?present on admission. Cardiology consult pending. Echocardiogram pending. Continue on aspirin, Lipitor, lisinopril, Lovenox. Ordered: [facility] Care/Day Moderate 35 Minutes 99579 4. Hypertensive urgency (I16.0: Hypertensive urgency) Resolved. Continue lisinopril. Ordered: [facility] Care/Day Moderate 35 Minutes 53283 5. Right shoulder pain (M25.511: Pain in right shoulder) Resolved. Ordered: [facility] Care/Day Moderate 35 Minutes 52001 6. Leukocytosis (D72.829: Elevated white blood cell [...] vein thrombosis (DVT) prophylaxis (Z79.899: Other superintendent terminal (current) drug therapy) Lovenox. Disposition: Pending echocardiogram and cardiology consult. I discussed the diagnosis and plan of care with the patient at the bedside. Moderate level of MDM based on addressing above issues. This documentation was transcribed using voice recognition software. Several attempts were made to ensure accuracy. However inadvertent computerized water and sewer systems superintendent errors may be present. Ellie Obando. Hospitalist. [...] 05:07:00) Lymph Auto: 24.9 % (01/22/23 05:07:00) [place] Auto: 4.6 % (01/22/23 05:07:00) Eos Auto: 0.2 % (01/22/23 05:07:00) Basophil Auto: 0.4 % (01/22/23 05:07:00) Neutro Absolute: 7.4 E9/L (01/22/23 05:07:00) Lymph Absolute: 2.6 E9/L (06 (more content not included)...NormalGrant HospitalComment on above:Result Comment: Electronically Signed By: GAGE HAIDER, Ellie\.br\Date and Time Signed: 01/22/23 09:41 EDTTroponin 6 Hr.on 48-13-7695Pbzyqije I.cardiac [Mass/Vol]467.70 pg/hDNzktkigq33.10-27.10Grant HospitalComment on above:Result Comment: Critical Result verified by previous result\ Critical Result I_hsTnI:467.7 Called to ROSSY MOE at 3N by VERONIQUE REID and read back for confirmation at 01/21/2023 23:51:39 The 95% CI (Confidence Interval) PPV (Positive Predictive Value) for myocardial infarction in females is 38 pg/mL, in males 51 pg/mL. The results should be used in conjunction with clinical conditions of myocardial infarction. ([employer] High Sensitivity Troponin I Instructions For Use, [employer], March 2018)Performed By: #### [id number], 9113615, 33005297, [id number], 0700767, 2049021 #### [facility] [address], [place] [address]Bvqvfbsv 9 Hr.on 43-91-7782Vjbctekw I.cardiac [Mass/Vol]445.10 pg/eCQzrqzonf62.10-27.10Grant HospitalComment on above:Result Comment: Critical Result verified by previous result\ Critical Result I_hsTnI:445.1 Called to ROSSY MOE at 3N by VERONIQUE REID and read back for confirmation at 01/22/2023 01:58:36 The 95% CI (Confidence Interval) PPV (Positive Predictive Value) for myocardial infarction in females is 38 pg/mL, in males 51 pg/mL. The results should be used in conjunction with clinical conditions of myocardial infarction. ([employer] High Sensitivity Troponin I Instructions For Use, [employer], March 2018)Performed By: #### [id number] #### [facility] [address], [place] [address]HY Chest Single Viewon 42-28-6067SZ Chest Single ViewExam Date/Time: 01/21/2023 16:53 EDT Reason for Exam: [...] AZIZA Technologist: LORIE Technical Comments Radiation Dose: Kar in mGy = na DAP = naNormalGrant HospitaleGFRon 34-88-6818XMT/1.73 sq M.predicted among non-blacks MDRD (S/P/Bld) [Vol rate/Area]113 mL/min/1.73 m2 Normal>=59Grant HospitalComment on above:Order Comment: Order added by Lupe Expert.Result Comment: Chronic kidney disease could be indicated at eGFR's of less than 60 mL/min/1.73m2. Kidney failure is indicated at less than 15 mL/min/1.73m2.Performed By: #### [id number], 2466257, 41262705, 446446045, 0523311, 0615568 #### [facility] [address] [place] [address]Awpd Diffon 87-04-7062Zmpsizxlt/100 WBC (Bld)0.3 %Normal0.0-2.0 Grant HospitalComment on above:Order Comment: Order Added by Lupe Expert.Performed By: #### 1778496, 3623130, 19591070, 619965587, 9807410, 3715000 #### [facility] [address] [place] [address]Qubmlyffg/Leukocytes Auto (Bld) [Pure # fraction]0.0 E9/LNormal 0.0-0.2FSelect Medical Specialty Hospital - Boardman, IncComment on above:Order Comment: Order Added by Lupe Expert.Performed By: #### 3398119, 1141066, 71698820, 922811168, 0511568, 4109056 #### [facility] [address], [place] [address]Ypcjemiukla/100 WBC (Bld)0.1 %Normal0.0-8.0Grant HospitalComment on above:Order Comment: Order Added by Lupe Expert.Performed By: #### 0114556, 1291595, 85840001, 002783725, 3232112, 4425876 #### [facility] [address], [place] [address]Evxzwjcalro/Leukocytes Auto (Bld) [Pure # fraction]0.0 E9/L Normal0.0-0.5FSelect Medical Specialty Hospital - Board[facility], IncComment on above:Order Comment: Order Added by Discern Expert.Performed By: #### 0695910, 5376486, 00785054, 522142614, 8782173, 0308719 #### [facility] [address] [place] [address]Esrsbspccbz/100 WBC (Bld)8.6 %Low14.0-50.0Grant HospitalComment on above:Order Comment: Order Added by Discern Expert.Performed By: #### 4644796, 2130747, 72760976, 225550339, 6148988, 6584019 #### [facility] [address] [place] [address]Qmijvrfrpbs/Leukocytes Auto (Bld) [Pure # fraction]1.2 E9/L Normal1.0-4.0Grant HospitalComment on above:Order Comment: Order Added by Discern Expert.Performed By: #### 8412851, 5357525, 85265394, 613904729, 1053106, 9444607 #### [facility] [address] [place] [address] 00814Siyxgxfzw/100 WBC (Bld)4.8 %Normal4.0-14.0Grant HospitalComment on above:Order Comment: Order Added by Discern Expert.Performed By: #### 9596628, 8466745, 35736396, 219372730, 0247054, 9627682 #### [facility] [address] [place] [address] 27843Frjovsren/Leukocytes Auto (Bld) [Pure # fraction]0.7 E9/LNormal 0.2-1.0Grant HospitalComment on above:Order Comment: Order Added by Discern Expert.Performed By: #### 9323427, 6456031, 42588093, 405186024, 2462711, 7735918 #### [facility] [address], [place] [address]Ewwffyotwfg/100 WBC (Bld)86.2 %High36.0-75.0Grant HospitalComment on above:Order Comment: Order Added by Discern Expert. Performed By: #### 6534114, 4325179, 35063634, 520969127, 5182332, 8633328 #### [facility] [address] [place] [address]Pheflqhtlup/Leukocytes Auto (Bld) [Pure # fraction]12.3 E9/L High2.0-7.5FSelect Medical Specialty Hospital - [facility], IncComment on above:Order Comment: Order Added by Discern Expert.Performed By: #### 3249732, 3703150, 83695231, 759190419, 3678329, 1805736 #### [facility] [address] [place] [address] 80807HTHiz 30-40-2412Xsige gap [Moles/Vol]14 mmol/LNormal6-16Grant HospitalComment on above:Performed By: #### 1242722, 6249832, 03711972, 843190996, 4954265, 3954304 #### [facility] [address] [place] [address] 877[address]Bsmgufe [Mass/Vol]9.0 mg/dLNormal8.9-11.1FSelect Medical Specialty Hospital - [facility], IncComment on above:Performed By: #### 3815106, 3458449, 10214480, 406041135, 9303386, 8702336 #### [facility] [address], [place] [address]Cuioiiej [Moles/Vol]101 mmol/APqapzk488-477DtbwshGrant HospitalComment on above:Performed By: #### 9652676, 5116320, 82277412, 516090069, 1921692, 1189905 #### [facility] [address] [place] [address] 55342KW5 [Moles/Vol]18 mmol/FKyo76-25RlbhmiGrant Hospital Comment on above:Performed By: #### 5134879, 0006457, 98213790, 078858628, 2119509, 2322964 #### [facility] [address], [place] [address]Kkxfjiuvjw [Mass/Vol]0.7 mg/dLNormal0.5-1.3FSelect Medical Specialty Hospital - [facility], IncComment on above:Performed By: #### 3984772, 4852979, 62140368, 263645152, 9981168, 6960122 #### [facility] [address], [place] [address]Pzsojon [Mass/Vol]491 mg/mHBezncjva16-542VhddlyGrant HospitalComment on above:Result Comment: Critical Result verified by repeat analysis\Critical Result S_GLULVL:[address] MARTIN AT by CIARA HOWARD And Read Back For Confirmation at: 01/21/2023 17:05:30 If this glucose result represents a fasting glucose, interpretation should refer to the following reference range: 55-99 mg/dLPerformed By: #### 2784648, 3990182, 08873456, 466118301, 0279300, 7398486 #### [facility] [address], [place] [address]Fvqshvykm [Moles/Vol]4.0 mmol/LNormal3.5-5.3FSelect Medical Specialty Hospital - [facility], IncComment on above:Performed By: #### 5329471, 6910568, 32036365, 864433556, 3589477, 6970601 #### [facility] [address], [place] [address]Ruryuw [Moles/Vol]129 mmol/YZdd865-419NrjjooGrant HospitalComment on above:Performed By: #### 7201824, 1466763, 45505169, 015875810, 3054786, 6452419 #### [facility] [address], [place] [address]Uhhp nitrogen [Mass/Vol]23 mg/dLHigh5-21Grant HospitalComment on above:Performed By: #### 4308307, 0541801, 84386261, 474058133, 6507965, 4829893 #### [facility] [address], [place] [address]Ogcc nitrogen/Creatinine [Mass ratio]33 No PmyurMrwg12-56FknuewGrant HospitalComment on above:Performed By: #### 5816713, 7699102, 38098333, 718560058, 7626669, 9899227 #### [facility] [address], [place] [address]QFNCwh 96-36-4461Ajfa hydroxybutyrate [Moles/Vol]0.86 mmol/L High0.02-0.27Grant HospitalComment on above:Performed By: #### 1652483, 9589754, 07900893, 821461358, 8531769, 1165043 #### [facility] [address] [place] [address]16[address]WYC w/ Auto Diffon 79-12-5013Jmwiyrzcavt distribution width (RBC) [Ratio]14.2 %Tgutkd74.9-14.2FSelect Medical Specialty Hospital - [facility], IncComment on above: Performed By: #### 2527691, 3649270, 31181783, 757160964, 3592057, 8320673 #### [facility] [address] [place] [address] 279[address]Wdxcnvqbln (Bld) [Volume fraction]41.9 %Jqimxv89.0-46.0Grant HospitalComment on above:Performed By: #### 9032696, 8439572, 69437038, 825853592, 2445865, 8316922 #### [facility] [address], [place] [address]Opyjvqtgoh (Bld) [Mass/Vol]14.2 g/jMFevmis16.0-16.0Grant HospitalComment on above:Performed By: #### 4013436, 4336522, 08572504, 190742537, 9800173, 2586482 #### [facility] [address], [place] [address]EYH (RBC) [Entitic mass]28.0 snGvkinj20.0-34.0Grant HospitalComment on above:Performed By: #### 7372167, 0056009, 43293400, 241146546, 1857152, 9566029 #### [facility] [address] [place] [address]UKCB (RBC) [Mass/Vol]33.9 g/iPEfibfb91.4-36.0Grant HospitalComment on above:Performed By: #### 7239010, 2553807, 01362275, 948738184, 9463030, 9614195 #### [facility] [address] [place] [address]UAY (RBC) [Entitic vol]82.6 hRLrkqof31.0-100.0Grant HospitalComment on above:Performed By: #### 7551393, 8650412, 00367938, 324055993, 9673566, 4003819 #### [facility] [address] [place] [address]Eekidcos mean volume (Bld) [Entitic vol]8.8 fLNormal6.4-10.8 Grant HospitalComment on above:Performed By: #### 9539904, 8924674, 08538298, 685066594, 8727387, 2411894 #### [facility] [address], [place] [address]Zpardsrej (Bld) [#/Vol]240.0 E9/SFzsjxz041.0-500.0Grant HospitalComment on above:Performed By: #### 4399258, 0541231, 87282744, 891795045, 0232260, 2917606 #### [facility] [address] [place] [address]IEX (Bld) [#/Vol]5.1 E12/LNormal4.3-5.9Grant HospitalComment on above:Performed By: #### 7817827, 0984771, 12602855, 074026139, 8775733, 1913657 #### [facility] [address], [place] [address]AKR corrected for nucl RBC Auto (Bld) [#/Vol]14.2 E9/LHigh 4.0-11.0Grant HospitalComment on above:Performed By: #### 3702787, 9365457, 12067340, 139802677, 1652947, 9876337 #### [facility] [address], [place] [address]INYNGCWCCJnrzgvj By: SYSTEM SYSTEM on 17-90-0263Pbcejgua I.cardiac [Mass/Vol]467.70 pg/mLInvalid Interpretation Code10.10 - 27.10 pg/mL [facility] RemisolComment on above:Result Comment: Critical Result verified by previous result\ Critical Result I_hsTnI:467.7 Called to ROSSY MOE at 3N by VERONIQUE REID and read back for confirmation at 01/21/2023 23:51:39Anion gap [Moles/Vol]14 mmol/LNormal6 - 16 mEq/LFTMC RemisolBeta hydroxybutyrate [Moles/Vol]0.86 mmol/LHigh0.02 - 0.27 mmol/LFTMC RemisolCalcium [Mass/Vol]9.0 mg/dLNormal8.9 - 11.1 mg/dLFTMC RemisolChloride [Moles/Vol]101 mmol/PAkwfdj825 - 111 mmol/LFTMC RemisolCO2 [Moles/Vol]18 mmol/LLow21 - 31 mmol/LFTMC Remisol Creatinine [Mass/Vol]0.7 mg/dLNormal0.5 - 1.3 mg/dLFT RemisolGFR/1.73 sq M.predicted among non-blacks MDRD (S/P/Bld) [Vol rate/Area]109 mL/min/1.73 m2 Normal>=59mL/min/1.73 m2[facility] [place] Chem SGlucose [Mass/Vol]491 mg/dLInvalid Interpretation Code55 - 199 mg/dLCURAHEALTH [facility] [place] RemisolComment on above:Result Comment: Critical Result verified by repeat analysis\Critical Result S_GLULVL:[address] MARTIN AT ER by CIARA HOWARD And Read Back For Confirmation at: 01/21/2023 17:05:30Potassium [Moles/Vol]4.0 mmol/LNormal3.5 - 5.3 mmol/LFTMC RemisolSodium [Moles/Vol]129 mmol/RStl671 - 145 mmol/LFTMC RemisolUrea nitrogen [Mass/Vol]23 mg/dLHigh5 - 21 mg/dLCURAHEALTH [facility] [place] RemisolUrea nitrogen/Creatinine [Mass ratio]33 mg/ckQdlr89 - 20[facility] [place] RemisolConsent for Treatmenton 16-34-8741Wukzwdm for [id number]#1.00CD:127NormalMartins [facility]erry [facility] Clinical Summaryon 06-67-4650JG Clinical Summary [place] [address] ED Clinical Summary Person Information Name: ESCOBAR ORTEGA [facility] Age: 43 Years : 1980 Sex: Female Language: Bermudian PCP: Gentry Carrillo MD Marital Status: Phone: [phone] Visit Id: Visit Reason: Chest pain; CHEST PAIN Speciality: Acuity: 3 Enc Type: Observation Med Service: Medical Arrival: 01/21/2023 16:19:22 Discharge: LOS: 000 03:20 Checkin: 01/21/2023 16:19:22 Checkout: 01/21/2023 19:39:40 Dispo Type: Admitted as IP to this [facility] EVENTS: Event Name Event Status Request Date/Time [...] 19:12:01 Meds Admin Request 01/21/2023 19:13:12 ADDRESS: [address] [place] [address] [address] [phone] PHYS DOC NOTES: MEDICAL INFORMATION: Prescriptions Given: Medications to Continue with No Changes Other Medications acetaminophen-hydrocodone (Vicodin 500mg-5mg Tab) 1 Tablets By Mouth every 4 hours as needed for pain. Refills: 0. PATIENT EDUCATION INFORMATION: Instructions: Follow up: With: Address: When: Gentry Carrillo [address] [facility], [address] [place] [id number] Business (1) In 3 days DIAGNOSIS: 1:Chest pain; 2:Elevated troponin; 3:Hypertensive urgency; 4:Right shoulder pain; 5:Leukocytosis; 6:Hyperglycemia; 7:Hyponatremia; 8:Metabolic acidosis; 9:HTN (hypertension); 10:Diabetes mellitus; 11:Obese; 12:On deep vein thrombosis (DVT) prophylaxisNoMercy Health Willard Hospital CenterED Note-Physicianon 01-21-2023 ED Note-PhysicianBasic Information Time Seen: Daisy Campos M.D. 01/21/2023 16:49 Chief Complaint pt states just seen for arm pain, given rx steroid. 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 She states she was seen at [facility] yesterday and given steroids. The patient [...] <1% risk of major adverse cardiac event in30 days. Medical Decision Making MEDICAL DECISION MAKING Number and Complexity of Problems Differential Diagnosis: [] [facility] Data External documents reviewed: [] [...] (I10: Essential (primary) hypert (more content not included)...[facility] HospitalComment on above:Result Comment: Electronically Signed By: Andres Mejia, Daisy Blair\.brenna\Date and Time Signed: 01/21/2319:01 EDTED Patient Education Noteon 06-87-7549QC Patient Education Note [facility] CenterED Patient Summaryon 13-65-0128SO Patient Summary [address] [address] Patient Discharge Instructions Person Information Name: ESCOBAR ORTEGA Age: 43 Years Arrival Date: 01/21/2023 16:19:22 Discharge Diagnosis: 1:Chest pain; 2:Elevated troponin; 3:Hypertensive urgency; 4:Right shoulder pain; 5:Leukocytosis; 6:Hyperglycemia; 7:Hyponatremia; 8:Metabolic acidosis; 9:HTN (hypertension); 10:Diabetes mellitus; 11:Obese; 12:On deep vein thrombosis (DVT) prophylaxis Primary Care Physician: Gentry Carrillo MD Provider Information Primary Provider: Daisy Campos M.D. Advanced Communications Technologist:None The exam and treatment you received in the Emergency Department were for an urgent problem and are not intended as complete care. It is important that you follow up with a doctor, nurse practitioner,or physician?s research assistant member for ongoing care. If your symptoms become worse or you do not improve as expected and you are unable to reach your usual health care provider, you should return to the Emergency Department. We are available 24 hours a day. ESCOBAR ORTEGA has been given the following list of patient education materials, prescriptions and follow-up instructions: Follow-up Instructions: With: Address: When: Gentry Carrillo [address] [place] [address], [place] [address] Business (1) In 3 days In the event that this physician does not participate in your insurance network, please consult with your insurance company to find a nearby participating provider. Patient Education Materials: A MESSAGE TO ALL PATIENTS REGARDING OPIOIDS PRESCRIPTION OPIOIDS: WHAT YOU NEED TO KNOW Prescription opioids can be used to help relieve fhegwacx-gu-tfmjos pain and are often prescribed following a [...] and have fewer risks and side effects. Optionsmay include: ? Pain relievers such as acetaminophen, [...] unused prescription opioids: Find your community drug take- back program or your[employer] mail-back program, or flush them down the toilet, following guidance from the Food and Drug Administration (www.fda.gov/Drugs/ResourcesForYou). ? Visit www.cdc.gov/drugoverdose to learn about the risks of opioids abuse and overdo (more contentnot included)...[facility] Private HospitalHEMATOLOGY Ordered By: SYSTEM SYSTEM on 92-40-1745Ysstcyiou/100 WBC (Bld)0.3 %Normal0.0 - 2.0 %[facility] HemeAutoSSBasophils/Leukocytes Auto (Bld) [Pure # fraction]0.0 E9/L Normal0.0 - 0.2 E9/LFTMC HemeAutoSSEosinophils/100 WBC (Bld)0.1 %Normal0.0 - 8.0 %[facility] HemeAutoSSEosinophils/Leukocytes Auto (Bld) [Pure # fraction]0.0 E9/L Normal0.0 - 0.5 E9/LFTMC HemeAutoSSLymphocytes/100 WBC (Bld)8.6 %Low14.0 - 50.0 %[facility] HemeAutoSSLymphocytes/Leukocytes Auto (Bld) [Pure # fraction]1.2 E9/L Normal1.0 - 4.0 E9/LFTMC HemeAutoSSMonocytes/100 WBC (Bld)4.8 %Normal4.0 - 14.0 %[facility] HemeAutoSSMonocytes/Leukocytes Auto (Bld) [Pure # fraction]0.7 E9/LNormal 0.2 - 1.0 E9/LFTMC HemeAutoSSNeutrophils/100 WBC (Bld)86.2 %High36.0 - 75.0 % [facility] HemeAutoSSNeutrophils/Leukocytes Auto (Bld) [Pure # fraction]12.3 E9/LHigh 2.0 - 7.5 E9/LFTMC HemeAutoSSHEMATOLOGYOrdered By: Christiano Clay on 21-80-3177Fibcepulgxg distribution width (RBC) [Ratio]14.2 %Iezwvm04.9 - 14.2 % [facility] HemeAutoSSHematocrit (Bld) [Volume fraction]41.9 %Vpitvc48.0 - 46.0 %[facility] HemeAutoSSHemoglobin (Bld) [Mass/Vol]14.2 g/hMYpsvgd44.0 - 16.0 gm/dLFTMC HemeAutoSSMCH (RBC) [Entitic mass]28.0 lcQdxyhw64.0 - 34.0 pgFC HemeAutoSSMCHC (RBC) [Mass/Vol]33.9 g/uUIrcvvg05.4 - 36.0 gm/dLFTMC HemeAutoSSMCV (RBC) [Entitic vol]82.6 xMTtfkck65.0 - 100.0 fLFT HemeAutoSSPlatelet mean volume (Bld) [Entitic vol]8.8 fLNormal6.4 - 10.8 fLCURAHEALTH [facility] [place] HemeAutoSSPlatelets (Bld) [#/Vol]240.0 E9/NLfqgdk616.0 - 500.0 E9/LFCANCER TREATMENT CENTERS OF [facility] [place] HemeAutoSSRBC (Bld) [#/Vol]5.1 E12/LNormal4.3 - 5.9 E12/[facility] HemeAutoSSWBC corrected for nucl RBC Auto (Bld) [#/Vol]14.2 E9/LHigh4.0 - 11.0 /[facility] HemeAutoSSMonitor Recordon 01-21-2023 Monitor [id number]#1.00CD:127NoSelect Medical Specialty Hospital - YoungstownMonitor Record [id number]#1.00CD:127[facility] Private HospitalTroponin 0 Hr.on 77-70-9231Jhlghzdt I.cardiac [Mass/Vol]201.10 pg/mL Okqgmkki71.10-27.10Grant HospitalComment on above:Result Comment: Critical Result I_hsTnI:201.[address] MARTIN at [...] I Instructions For Use, Son Ruben, March 2018)Performed By: #### 0839950, 6517413, 98861583, 768040404, 4565753, 7210021 #### [facility] [address], [place] [address]Vdhldgfj 3 Hr.on 06-06-1119Ypwthtqp I.cardiac [Mass/Vol]258.00 pg/tKQgjrgckb25.10-27.10Grant HospitalComment on above:Order Comment: pt not yet in room from er as of 1924 [id number] 01/21/2023 19:37:18 EDT Result Comment: Critical Result verified by previous result\ Critical Result [...] I Instructions For Use, Son Ruben, March 2018)Performed By: #### [id number] #### [facility] [address], [place] [address]JV With Cult Reflexon 83-67-4569Kdnrgayzw Ql (U)NegativeNormal NegativeGrant HospitalComment on above:Performed By: #### [id number] ####[address] [place] [address] Clarity (U)CLEARNormalClearGrant HospitalComment on above:Performed By: #### [id number] ####[facility] [address] [place], [place] [address]Flcnj (U)STRAWAbnormalYellowGrant Hospital Comment on above:Performed By: #### [id number] ####[address] [place], [place] [address]Ixbiljkbpy cells.squamous LM.HPF (Urine sed) [#/Area]2-2Avbuic9-1Qcmctr [facility] Pratt HospitalComment on above: Performed By: #### [id number] ####[address] [address]Wtwwfkm Test strip (U) [Mass/Vol]3+AbnormalNegative Grant HospitalComment on above:Performed By: #### [id number] ####[address] [address] Hemoglobin Ql (U)NegativeNormalNegativeGrant HospitalComment on above:Performed By: #### [id number] ####[address] [address]Jqfvlml (U) [Mass/Vol]1+AbnormalNegativeGrant HospitalComment on above:Performed By: #### [id number] ####[address] [address] [place].plasma/[place].RBC (Bld) [Mass ratio]0-3Tmlkal2-7RcaduwSelect Medical Specialty Hospital - Boardman, IncComment on above:Performed By: #### [id number] ####[address] [address] Ql (U)NegativeNormal NegativeGrant HospitalComment on above:Performed By: #### [id number] ####[address] [address]wM (U)6.0 [pH]Invalid Interpretation Code5.0-9.0Grant HospitalComment on above:Performed By: #### [id number] ####[address] [address]Gieqtye (U) [Mass/Vol]NegativeNormal NegativeGrant HospitalComment on above:Performed By: #### [id number] ####[address] [address] Specific gravity (U) [Rel density]1.015Invalid Interpretation Code1.005-1.030 Grant HospitalComment on above:Performed By: #### [id number] ####[address], [place] [address]Hipj of Urine collection methodClean CatchNormalGrant HospitalComment on above:Performed By: #### [id number] ####[place] [address] [address]Mdhlttpmhtsb Qn (U)0.2 {Ankit'U}/dLNormal0.0-1.0 Grant HospitalComment on above:Performed By: #### [id number] ####[place] [address] [address]YEB Auto Ql (U)NegativeNormalNegativeGrant HospitalComment on above: Performed By: #### [id number] ####[place] [address] [address]YMG LM.HPF (Urine sed) [#/Area]7-9Aslqzn2-7Lzzsre [facility] Pratt HospitalComment on above:Performed By: #### [id number] ####[place] [address] [address]RWUSZYULWP Ordered By: Anabella Tiwari on 31-83-2603Kiuyjdkqe Ql (U)Negative (01/21/23 5:53 PM)NormalNegativeCUR[facility] [place] [facility] [place]A Auto SSClarity (U)Clear (01/21/23 5:53 PM)NormalClearFCANCER TREATMENT CENT[facility] UA Auto SSColor (U)Straw *ABN* (01/21/23 5:53 PM)Invalid Interpretation CodeYellowCURAHEALTH [facility] [place] [facility] [place] UA Auto SSEpithelial cells.squamous LM.HPF (Urine sed) [#/Area]0-2 /HPFNormal0-2/HPFCURAHE[facility] [place] [facility] [place] UA Auto SS Glucose Test strip (U) [Mass/Vol]3+ *ABN* (01/21/23 5:53 PM)Invalid Interpretation CodeNegativeCURAHEALTH [facility] [place] UA Auto SSHemoglobin Ql (U)Negative (01/21/23 5:53 PM)NormalNegativeCURA[facility] [place] [facility] [place] UA Auto SSKetones (U) [Mass/Vol]1+ *ABN* (01/21/23 5:53 PM)Invalid Interpretation CodeNegativeCURAHEALTH [facility] [place] [facility] [place] UA Auto SS [place].plasma/[place].RBC (Bld) [Mass ratio]0-3 /HPFNormal0-3/HPFCURAHEALTH [facility] [place] [facility] [place] UA Auto SSNitrite Ql (U)Negative (01/21/23 5:53 PM)NormalNegativeCUR[facility] [place] [facility] [place] UA Auto SSpH (U)6.0 *NA* (01/21/23 5:53 PM)Invalid Interpretation Code5.0 - 9.0[facility] [place] UA Auto SSProtein (U) [Mass/Vol]Negative (01/21/23 5:53 PM)NormalNegativeCURAHEALTH [facility] [place] [facility] [place] UA Auto SSSpecific gravity (U) [Rel density] 1.015 *NA* (01/21/23 5:53 PM)Invalid Interpretation Code1.005 - 1.030[facility] [place] UA Auto SSUA Spec DescClean Catch (01/21/23 5:53 PM)NormalCURAHEALTH [facility] [facility] [place] UA Auto SSUrobilinogen Qn (U)0.5205217 {Ankit'U}/dLNormal0.0 - 1.0 EU/dLCURAHEALTH [facility] [place] [facility] [place] UA Auto SSWBC Auto Ql (U)Negative (01/21/23 5:53 PM)NormalNegativeCUR[facility] [facility] [place] UA Auto SSWBC LM.HPF (Urine sed) [#/Area]0-5 /HPFNormal0-5/HPFCURAHE[facility] [place] [facility] [place] UA Auto SSeGFRon 14-79-5090MEB/1.73 sq M.predicted among non-blacks MDRD (S/P/Bld) [Vol rate/Area]109 mL/min/1.73 q0Gmqorv>=59Grant HospitalComment on above:Order Comment: Order Added by Discern Expert.Result Comment: Chronic kidney disease could be indicated at eGFR's of less than 60 mL/min/1.73m2. Kidney failure is indicated at less than 15 mL/min/1.73m2.Performed By: #### [id number], [id number], [id number], [id number], [id number], [id number] #### [place] [facility] [address], [place] [address]Nbfxajc for Treatmenton 22-36-8222Xgjpprw for Treatment [id number]#1.00CD:127[facility] Private HospitalDischarge Instructionson 67-95-8885Bikxaimco Instructions [id number]#1.00CD:127[facility] Clinical Summaryon [id number] Clinical Summary [place] [id number] ED Clinical Summary Person Information Name: ESCOBAR ORTEGA [facility] Age: 42 Years : 1980 Sex: Female Language: Bermudian PCP: Gentry Carrillo MD Marital Status: Phone: [phone] Visit Id: Visit Reason: Foot pain-swelling; RIGHT [...] 12/12/2022 08:15:04 12/12/2022 08:15:04 12/12/2022 08:15:04 ADDRESS: [facility] [phone] [id number] [facility] DOC NOTES: MEDICAL INFORMATION: Prescriptions Given: Medications to Continue with No Changes Other Medications acetaminophen-hydrocodone (Vicodin 500mg-5mg Tab) 1 Tablets By Mouth every 4 hours as needed for pain. Refills: 0. PATIENT EDUCATION INFORMATION: Instructions: Foot Contusion Follow up: With: Address: When: Nelson HENSLEY - [facility], [facility], [facility] [address], [place] [address] 3 Business (1) In 3 days 12/15/2022 Comments: Call the office of the wax blender on Wednesday and arrange for evaluation of the toe. With: Address: When: Gentry Lorena [address] [facility], [place] [address] Business (1) In 3 days [...] develop discharge from the toe. DIAGNOSIS: Toe contusionNormalFisher Kinney Medical CenterED Note-Physicianon [id number] Note-PhysicianBasic Information Time Seen: Pako Metzger DO 12/12/2022 [...] base of the fourth toe. No deformity ofthe toe. Cap refill intact in the toe. [...] does not appear infected. It does not appearischemic. Exam is consistent with ecchymosis likely from [...] In 3 days 12/15/2022 EDT [facility] - [facility] [address] [facility] [place] [address] 4 Business (1) Additional Instructions: Call the office of the wax blender on Wednesday and arrange for evaluation of the toe. Gentry Hoy In 3 days 12/15/2022 EDT [address] [facility] [place] [address]- Business (1) Additional Instructions: Call the office [...] were prescribed medications you should discuss possible side- effects and drug interactions with your pharmacist. Call [...] Inpatient No active inp (more content not included)...[facility] Comment on above:Result Comment: Electronically Signed By: Pako Metzger DO\.br\Date and Time Signed: 12/12/22 08:25 EDTED Patient Education Noteon [id number] Patient Education NoteOrthopedics Foot Contusion A foot contusion is a deep bruise to the foot. Contusions are the result of an injury to tissues and muscle fibers under the skin. The injury causes bleeding under the skin. The skin over the contusion may turn blue, purple, or yellow. Minor injuries will cause a painless contusion, but more severecontusions may stay painful and swollen for a few weeks. What are the causes? This condition is usually caused by a hard hit or direct force to your foot, such as having a heavyobject fall on your foot. What are the [...] may be recommended to support your foot. Qbkh-hhg-hkxeijd anti-inflammatory medicines may also be recommended for [...] or lying down. General instructions ? Take wjcv-orz-ilcfunm and prescription medicines only as told by [...] Reviewed: 10/22/2021 Elsevier Patient Education ? 2022 [employer].[facility] ED Patient Summaryon [id number] Patient Summary [address] [address] Patient Discharge Instructions Person Information Name: ESCOBAR ORTEGA Age: 42 Years Arrival Date: 12/12/2022 07:19:23 Discharge Diagnosis: Toe contusion Primary Care Physician: Gentry Carrillo MD Provider Information Primary Provider: Pako Metzger DO Advanced Communications Technologist:None The exam and treatment you received in the Emergency Department were for an urgent problem and are not intended as complete care. It is important that you follow up with a doctor, nurse practitioner,or physician?s research assistant member for ongoing care. If your symptoms become [...] Instructions: With: Address: When: Nelson HENS[place] - [facility], [facility], [address], [place] [address] 0 Business (1) In 3 days 12/15/2022 Comments: Call the office of the wax blender on Wednesday and arrange for evaluation of the toe. With: Address: When: Gentry Carrillo [address] [facility], [place] [address] Business (1) In 3 days [...] opioids can be used to help relieve uizqzdpv-cw-atimmr pain and are often prescribed following a [...] and have fewer risks and side effects. Optionsmay include: ? Pain relievers such as acetaminophen, ibuprofen, and naproxen ? Some medication that are also used for depression or seizures ? Physical therapy and exercise ? Cognitive behavioral therapy, a psychological, goal-directed (more content not included)...[facility] Private HospitalXR Toe(s) Min 2 Views Righton [id number] Toe(s) Min 2 Views RightExam Date/Time: 12/12/2022 07:59 EDT Reason for Exam: [...] AZIZA Technologist: ZORA Technical Comments Radiation Dose: Kar in mGy = na DAP = naNorGreene Memorial HospitalPAP ACOG PANEL 2: 30 to 65on 06-22-2022 ..[facility] Medical CenterComment on above:Result Comment: Performed at: WB Performed By: #### BASIA MCCANN, CMP #### [facility] [address] [address] [address] Neisha Morfin Gdln ACOG Zxlrhls40-65JaixaqXlsCommunity Regional Medical CenterComment on above:Performed By: #### BASIA MCCANN, CMP #### [facility] [address] [place] [address] Dr. Neisha AraizaDIAGNOSIS:CommentNoClermont County Hospital on above: Result Comment: NEGATIVE FOR INTRAEPITHELIAL LESION OR MALIGNANCY. Performed at: WBPerformed By: #### LIPA, BASIA, CMP #### [facility] [address] [place] [address] Dr. Neisha AraizaHPV AptimaNegativeNormalNegativeThe [facility] on above:Result Comment: This nucleic acid amplification test detects fourteen high-risk HPV types (16,18,31,33,35,39,45,51,52,56,58,59,66,68) without differentiation. Performed at: =GPerformed By: #### LIPA, BASIA, CMP #### [facility] [address] [place] [address] Dr. Neisha AraizaHPV Genotype ReflexCommentNoClermont County Hospital on above:Result Comment: Criteria not met, HPV Genotype not performed. Performed at: WBPerformed By: #### LIPA, BASIA, CMP #### [facility] [address] [place] [address] Dr. Neisha AraizaMethodology:CommentNoClermont County Hospital on above: Result Comment: This liquid based ThinPrep(R) pap test was screened with the use of an image guided system. Performed at: WBPerformed By: #### LIPA, BASIA, CMP #### [facility] [address] [place] [address] Dr. Neisha AraizaNote:CommentNoClermont County Hospital on above:Result Comment: The Pap smear is a screening test designed to aid in the detection of premalignant and malignant conditions of the uterine cervix. It is not a diagnostic procedure and should not be used as the sole means of detecting cervical cancer. Both false-positive and false-negative reports do occur. . Performed at: WBPerformed By: #### LIPA, BASIA, CMP #### [facility] [address] [place] [address] Dr. Neisha AraizaPerformed by:CommentNormalThe China Village HospitalComment on above: Result Comment: Tisha Sanders, Dimensional Inspector (ASCP) Performed at: WBPerformed By: #### BASIA MCCANN, CMP #### [facility] [address] [place] [address] Dr. Neisha Medina adequacy:CommentNoRegency Hospital CompanyComment on above:Result Comment: Satisfactory for evaluation. Endocervical and/or squamous metaplastic cells (endocervical component) are present. Performed at: WBPerformed By: #### BASIA MCCANN, CMP #### [facility] [address] [address] [address] Neisha De La Torre-19 PCR (CVDTB)on 34-12-0136OEPX-CoV-2 (COVID-19) RNA TIM+probe Ql (Unsp spec)Not detectedNormalNOT DETECTEDPrem[facility] Health [facility] Comment on above:Result Comment: This test is not yet approved or cleared by the [place] FDA. When there are no FDA-approved or cleared tests available, and other criteria are met, FDA can make tests available under an emergency access mechanism called an Emergency Use Authorization (EUA). The EUA for this test is supported by the [place] of Health and Human Service's (HHS's) declaration that circumstances exist to justify the emergency use of in vitro diagnostics for the detection and/or diagnosis of the virus that causes COVID- 19. This EUA will remain in effect (meaning [...] of clinical signs and symptoms consistent with SARS-CoV-2.Performed By: #### CBC #### [facility] [address] [place], [place] [id number] Dr. Neisha De La Torre-19 PCR (CVDTBH)on 30-76-0460HAYY-CoV-2 (COVID-19) RNA TIM+probe Ql (Unsp spec)Not detectedNormalNOT DETECTEDThe [facility] Comment on above:Result Comment: This test is not yet approved or cleared by the [place] FDA. When there are no FDA-approved or cleared tests available, and other criteria are met, FDA can make tests available under an emergency access mechanism called an Emergency Use Authorization (EUA). The EUA for this test is supported by the [place] of Health and Human Service's (HHS's) declaration that circumstances exist to justify the emergency use of in vitro diagnostics for the detection and/or diagnosis of the virus that causes COVID- 19. This EUA will remain in effect (meaning [...] of clinical signs and symptoms consistent with SARS-CoV-2.Performed By: #### CBC #### [facility] [address] [place] [address] Dr. Neisha AraizaCHLAMYDIA/GONOCOCCUS TIM (SWAB/URINE/PAPon 47-63-0955Kwlfkluhl trachomatis, NAANegativeNormalNegativePremier Health [facility] Hospital SouthComment on above: Performed By: #### CBC #### [facility] [address] [place] [address] Dr. Neisha AraizaNeisseria gonorrhoeae, NAANegativeNormalNegativePremier Health [facility] Hospital SouthComment on above:Performed By: #### CBC #### [facility] [address] [place] [address] Dr. Neisha AraizaVAGINITIS/VAGINOSIS DNA PROBEon 43-48-7038Fzunlxi speciesPositive AbnormalNegativePremier Health [facility] Hospital SouthComment on above:Performed By: #### BASIA MCCANN CMP #### [facility] [address] [place] [address] Dr. Neisha Sanchezdnerella vaginalisPositiveAbnormalNegativePrem[facility] Hospital SouthComment on above:Performed By: #### BASIA MCCANN CMP #### [facility] [address] [place] [address] Dr. Neisha Whitakerhomonas vaginalisNegativeNormalNegativePrem[facility] Comment on above:Performed By: #### BASIA MCCANN, CMP #### [facility] [address] [place] [address] Dr. Neisha AraizaAMYLASEon 71-08-9613Xgtpaec [Catalytic activity/Vol]20 U/L Critically cfj55-103Egq [facility] HospitalComment on above:Performed By: #### CBC #### [facility] [address] [place] [address] Dr. Neisha CardenasC AUTO DIFFon 27-87-7082DAGB #0.0 103/ulNormal0.0-0.1The [facility] HospitalComment on above:Performed By: #### CBC #### [facility] [address] [place] [address] Dr. Neisha AraiazBasophils/100 WBC (Bld)0.6 %Normal0.2-2.0[facility] Comment on above:Performed By: #### CBC #### [facility] [address] [address] [address] Neisha Mcconnell #0.1 103/ulNormal0.0-0.7The [facility] HospitalComment on above: Performed By: #### CBC #### [facility] [address] [place] [address] Dr. Neisha Paigeosinophils/100 WBC (Bld)0.7 %Critically low0.9-7.0The [facility] HospitalComment on above:Performed By: #### CBC #### [facility] [address] [place] [address] Dr. Neisha Paigerythrocyte distribution width (RBC) [Ratio]13.5 %Vnbfqv36.0-15.0 [facility] SouthComcorewell health butterworth hospital on above:Performed By: #### CBC #### [facility] [address] [place] [address] Dr. Neisha AraizaHematocrit (Bld) [Volume fraction]35.3 %Critically low36.0-48.0 The [facility] HospitalComment on above:Performed By: #### CBC #### [facility] [address] [place] [address] Dr. Neisha AraizaHemoglobin (Bld) [Mass/Vol]11.8 g/dLCritically low12.0-16.0The [facility] HospitalComment on above:Performed By: #### CBC #### [facility] [address] [place] [address] Dr. Neisha Gould #0.02 10e3/ulNormal0.00-0.03The [facility] HospitalComment on above:Performed By: #### CBC #### [facility] [address] [place] [address] Dr. Neisha Gould %0.3 %Normal0.0-0.5The [facility] HospitalComment on above: Performed By: #### CBC #### [facility] [address] [place] [address] Dr. Neisha Sánchez #2.3 103/ulNormal1.2-3.8The [facility] HospitalComment on above:Performed By: #### CBC #### [facility] [address] [place] [address] Dr. Neisha Davishocytes/100 WBC (Bld)33.2 %Rcrsuv99.5-60.0The [facility] HospitalComment on above:Performed By: #### CBC #### [facility] [address] [place] [address] Dr. Neisha MelgarUAL DIFF REQNONormalThe [facility] HospitalComment on above: Performed By: #### CBC #### [facility] [address] [place] [address] Dr. Neisha Campa (RBC) [Entitic mass]29.1 klMylmaz83.7-34.0The [facility] HospitalComment on above:Performed By: #### CBC #### [facility] [address] [place] [address] Dr. Neisha Campa (RBC) [Mass/Vol]33.4 g/lJSbqjye14.9-35.2The [facility] HospitalComment on above:Performed By: #### CBC #### [facility] [address] [address] [address] Neisha CampaV (RBC) [Entitic vol]86.9 lTUgoqbf50.0-99.0The [facility] HospitalComment on above:Performed By: #### CBC #### [facility] [address] [address] [address] Neisha Evans #0.6 103/ulNormal0.3-0.8The [facility] Village HospitalComment on above:Performed By: #### CBC #### [facility] [address] [address] [address] Neisha Plasenciaocytes/100 WBC (Bld)8.6 %Normal1.7-12.0The [facility] on above:Performed By: #### CBC #### [facility] [address] [place] [address] Dr. Neisha Santos #3.9 103/ulNormal1.4-6.5The [facility] HospitalComment on above:Performed By: #### CBC #### [facility] [address] [place] [address] Dr. Neisha Samuelutrophils/100 WBC (Bld)56.6 %Fejivs45.0-75.0The [facility] HospitalComment on above:Performed By: #### CBC #### [facility] [address] [place] [address] Dr. Neisha Meilet mean volume (Bld) [Entitic vol]9.5 fLNormal9.5-13.5The [facility] HospitalComment on above:Performed By: #### CBC #### [facility] [address] [place] [address] Dr. Neisha AraizaPLT200 103/tqUemlfo304-453Dbc [facility] HospitalComment on above: Performed By: #### CBC #### [facility] [address] [place] [address] Dr. Neisha AraizaRBC4.06 106/ulCritically low4.20-5.40The [facility] HospitalComment on above:Performed By: #### CBC #### [facility] [address] [place] [address] Dr. Neisha AraizaWBC7.0 103/ulNormal4.0-11.0The [facility] HospitalComment on above: Performed By: #### CBC #### [facility] [address] [place] [address] Dr. Neisha AraizaLIPASEon 34-11-0287Dglxvq [Catalytic activity/Vol]133.0 U/LNormal 73.0-393.0The [facility] HospitalComment on above:Performed By: #### CBC #### [facility] [address] [place] [address] Dr. Neisha AraizaPIEDMONT COL[facility] GLUCOSEon 74-94-4786Ssrbpaf [Mass/Vol]240 mg/dL Critically hewi30-531Onw [facility] on above:Performed By: #### POCGLUC #### [facility] [address] [place] [address] Dr. Neisha AraizaGlucose [Mass/Vol]240 mg/dLCritically tmbp78-390Jmb [facility] HospitalComment on above:Performed By: #### BASIA MCCANN, CMP #### [facility] [address] [place] [address] Dr. Neisha AraizaPROHilda 14(COMP METB)on 98-62-1684Ybhcplc [Mass/Vol]2.3 g/dL Critically low3.4-5.0The [facility] on above:Performed By: #### CBC #### [facility] [address] [place] [address] Dr. Neisha AraizaAlbumin/Globulin [Mass ratio]0.8 {ratio}NormalThe [facility] on above:Performed By: #### CBC #### [facility] [address] [place] [address] Dr. Neisha AraizaALP [Catalytic activity/Vol]78 U/QHvnxco59-816Mmn [facility] on above:Performed By: #### CBC #### [facility] [address] [place] [address] Dr. Neisha FletcherT [Catalytic activity/Vol]21 U/ERhftly93-89Elh [facility] HospitalComment on above:Performed By: #### CBC #### [facility] [address] [place] [address] Dr. Neisha Contion gap [Moles/Vol]15.2 mmol/LNormalThe [facility] Comment on above:Performed By: #### CBC #### [facility] [address] [address] [address] Neisha AraizaAST [Catalytic activity/Vol]20 U/YKjwjhk84-60Fee [facility] HospitalComment on above:Performed By: #### CBC #### [facility] [address] [place] [address] Dr. Neisha AraizaBilirubin [Mass/Vol]0.8 mg/dLNormal0.2-1.0The [facility] Comment on above:Performed By: #### CBC #### [facility] [address] [place] [address] Dr. Neisha AraizaCalcium [Mass/Vol]7.5 mg/dLCritically low8.5-10.1The [facility] HospitalComment on above:Performed By: #### CBC #### [facility] [address] [place] [address] Dr. Neisha AraizaChloride [Moles/Vol]105 mmol/VIzmdem35-561Dzg [facility] Comment on above:Performed By: #### CBC #### [facility] [address] [place] [address] Dr. Neisha AraizaCO2 [Moles/Vol]19.2 mmol/LCritically low21.0-32.0The [facility] HospitalComment on above:Performed By: #### CBC #### [facility] [address] [place] [address] Dr. Neisha AraizaCreatinine [Mass/Vol]0.59 mg/dLNormal0.55-1.02The [facility] HospitalComment on above:Performed By: #### CBC #### [facility] [address] [place] [address] Dr. Yilan ChangEGFR-AF COOK ISLANDER>60Normal>=60The [facility] HospitalComment on above:Performed By: #### CBC #### [facility] [address] [place] [address] Dr. Neisha PaigeGFR-NON AF COOK ISLANDER>60Normal>=60The [facility] HospitalComment on above:Performed By: #### CBC #### [facility] [address] [address] [address] Neisha AraizaGlobulin (S) [Mass/Vol]2.9 g/dLNormalThe [facility] HospitalComment on above:Performed By: #### CBC #### [facility] [address] [place] [address] Dr. Neisha AraizaGlucose [Mass/Vol]240 mg/dLCritically buwk83-641Tij [facility] HospitalComment on above:Performed By: #### CBC #### [facility] [address] [place] [address] Dr. Neisha AraizaPotassium [Moles/Vol]3.4 mmol/LCritically low3.5-5.1The [facility] HospitalComment on above:Performed By: #### CBC #### [facility] [address] [place] [address] Dr. Neisha AraizaProtein [Mass/Vol]5.2 g/dLCritically low6.4-8.2The [facility] HospitalComment on above:Performed By: #### CBC #### [facility] [address] [place] [address] Dr. Neisha AraizaSodium [Moles/Vol]136 mmol/LQknqaa656-856Tqx [facility] Comment on above:Performed By: #### CBC #### [facility] [address] [address] [address] Neisha AraizaUrea nitrogen [Mass/Vol]9.0 mg/dLNormal7.0-18.0The [facility] HospitalComment on above:Performed By: #### CBC #### [facility] [address] [place] [address] Dr. Neisha AraizaUrea nitrogen/Creatinine [Mass ratio]15.3 mg/mgCommunity Regional Medical CenterComment on above:Performed By: #### CBC #### [facility] [address] [address] [address] Neisha [facility] on above:Performed By: #### CBC #### [facility] [address] [address] [address] Neisha Whitaker TESTPositiveCommunity Regional Medical CenterComcorewell health butterworth hospital on above: Performed By: #### CBC #### [facility] [address] [address] [address] Neisha Covarrubias excess Calc (Bld) [Moles/Vol]-10.46949 mmol/LCritically low -2.0-2.0The [facility] HospitalComcorewell health butterworth hospital on above:Performed By: #### CBC #### [facility] [address] [place] [address] Dr. Ne[address] [facility] HospitalComcorewell health butterworth hospital on above: Performed By: #### CBC #### [facility] [address] [place] [address] Dr. Neisha AraizaCO2 [Moles/Vol]29.0 mmol/LCritically high23.0-28.0The [facility] on above:Performed By: #### CBC #### [facility] [address] [place] [address] Dr. Neisha AlbertAPLouis Stokes [facility] on above:Performed By: #### CBC #### [facility] [address] [place] [address] Dr. Neisha MosqueraVqoigBCM5ZhpqnnWekCommunity Regional Medical CenterComcorewell health butterworth hospital on above:Performed By: #### CBC #### [facility] [address] [place] [address] Dr. Neisha AraizaHCO3 (Bld) [Moles/Vol]17.9 mmol/LCritically low22.0-26.0The [facility] HospitalComcorewell health butterworth hospital on above:Performed By: #### CBC #### [facility] [address] [address] [address] Neisha RahmanMNormalThe [facility] HospitalComment on above:Performed By: #### CBC #### [facility] [address] [address] [address] Neisha Cam [facility] HospitalComment on above: Performed By: #### CBC #### [facility] [address] [place] [address] Dr. Neisha AraizaOxygen (Bld) [Partial pressure]95.8 mm[Hg]Qzrlfi67.0-100.0The [facility] HospitalComment on above:Performed By: #### CBC #### [facility] [address] [place] [address] Dr. Neisha Lazaro saturation in Blood98.6 %Ybrsia31.0-100.0The [facility] HospitalComment on above:Performed By: #### CBC #### [facility] [address] [place] [address] Dr. Neisha AraizaPCO222.9 mmHgCritically low35.0-45.0The [facility] HospitalComcorewell health butterworth hospital on above:Performed By: #### CBC #### [facility] [address] [place] [address] Dr. Neisha AraizaProMedica Bay Park HospitalComcorewell health butterworth hospital on above:Performed By: #### CBC #### [facility] [address] [place] [address] Dr. Neisha AraizapH (Bld)7.408 [pH]Normal7.350-7.450The [facility] on above:Performed By: #### CBC #### [facility] [address] [place] [address] Dr. Neisha DianePrem[facility] Health [facility] Hospital SouthComcorewell health butterworth hospital on above:Performed By: #### CBC #### [facility] [address] [place] [address] Dr. Neisha AraizaUniversity Hospitals Conneaut Medical CenterComcorewell health butterworth hospital on above:Performed By: #### CBC #### [facility] [address] [place] [address] Dr. Neisha Pabon [facility] on above: Performed By: #### CBC #### [facility] [address] [place] [address] Dr. Neisha Lingcaromont regional medical centerThe [facility] on above:Performed By: #### CBC #### [facility] [address] [place] [address] Dr. Neisha AraizaCleveland Clinic Fairview HospitalComcorewell health butterworth hospital on above:Performed By: #### CBC #### [facility] [address] [place] [address] Dr. Driver [facility] on above:Performed By: #### CBC #### [facility] [address] [place] [address] Dr. Neisha CardenasC AUTO DIFFon [id number] #0.0 103/ulNormal0.0-0.1The [facility] on above:Performed By: #### CBC #### [facility] [address] [place] [address] Dr. Neisha AraizaBasophils/100 WBC (Bld)0.3 %Normal0.2-2.0[facility] on above:Performed By: #### CBC #### [facility] [address] [place] [address] Dr. Neisha Mcconnell #0.0 103/ulNormal0.0-0.7The [facility] on above: Performed By: #### CBC #### [facility] [address] [place] [address] Dr. Neisha Paigeosinophils/100 WBC (Bld)0.0 %Critically low0.9-7.0The [facility] on above:Performed By: #### CBC #### [facility] [address] [place] [address] Dr. Neisha Paigerythrocyte distribution width (RBC) [Ratio]13.5 %Bxcikt60.0-15.0 [facility] on above:Performed By: #### CBC #### [facility] [address] [address] [address] Neisha AraizaHematocrit (Bld) [Volume fraction]39.1 %Taymma10.0-48.0The [facility] HospitalComment on above:Performed By: #### CBC #### [facility] [address] [address] [address] Neisha AraizaHemoglobin (Bld) [Mass/Vol]13.3 g/sHKgjhyp68.0-16.0The [facility] HospitalComment on above:Performed By: #### CBC #### [facility] [address] [place] [address] Dr. Neisha Gould #0.05 10e3/ulCritically high0.00-0.03The [facility] Comment on above:Performed By: #### CBC #### [facility] [address] [place] [address] Dr. Neisha Gould %0.5 %Normal0.0-0.5The [facility] HospitalComment on above: Performed By: #### CBC #### [facility] [address] [place] [address] Dr. Neisha Sánchez #1.4 103/ulNormal1.2-3.8The [facility] HospitalComment on above:Performed By: #### CBC #### [facility] [address] [place] [address] Dr. Neisha Davishocytes/100 WBC (Bld)14.8 %Critically low20.5-60.0The [facility] HospitalComment on above:Performed By: #### CBC #### [facility] [address] [place] [address] Dr. Neisha MelgarUAL DIFF REQNONormalThe [facility] HospitalComment on above: Performed By: #### CBC #### [facility] [address] [place] [address] Dr. Neisha Torres (RBC) [Entitic mass]28.6 cyCntdlc55.7-34.0The [facility] HospitalComment on above:Performed By: #### CBC #### [facility] [address] [address] [address] Neisha CampaHC (RBC) [Mass/Vol]34.0 g/cWPguzgi53.9-35.2The [facility] HospitalComment on above:Performed By: #### CBC #### [facility] [address] [address] [address] Neisah CampaV (RBC) [Entitic vol]84.1 eTKjhldi81.0-99.0The [facility] HospitalComment on above:Performed By: #### CBC #### [facility] [address] [place] [address] Dr. Neisha Evans #0.6 103/ulNormal0.3-0.8The [facility] HospitalComment on above:Performed By: #### CBC #### [facility] [address] [place] [address] Dr. Neisha Plasenciaocytes/100 WBC (Bld)5.8 %Normal1.7-12.0[facility] Comment on above:Performed By: #### CBC #### [facility] [address] [place] [address] Dr. Neisha Santos #7.6 103/ulCritically high1.4-6.5The [facility] Comment on above:Performed By: #### CBC #### [facility] [address] [address] [address] Neisha Samuelutrophils/100 WBC (Bld)78.6 %Critically high43.0-75.0The [facility] HospitalComment on above:Performed By: #### CBC #### [facility] [address] [address] [address] Neisha Meilet mean volume (Bld) [Entitic vol]9.9 fLNormal9.5-13.5The [facility] HospitalComment on above:Performed By: #### CBC #### [facility] [address] [address] [address] Neisha AraizaPLT280 103/rmDafkhf705-914DqzKindred Hospital [place] on above: Performed By: #### CBC #### [facility] [address] [address] [address] Neisha AraizaRBC4.65 106/ulNormal4.20-5.40The [facility] on above:Performed By: #### CBC #### [facility] [address] [place] [address] Dr. Neisha AraizaWBC9.7 103/ulNormal4.0-11.0The [facility] on above: Performed By: #### CBC #### [facility] [address] [place] [address] Dr. Neisha AraizaCovimagnus-19 PCR ([facility])on [id number]-CoV-2 (COVID-19) RNA TIM+probe Ql (Unsp spec)Not detectedNormalNOT DETECTEDPrem[facility] Comment on above:Result Comment: When diagnostic testing is negative, the [...] for this test is supported by the Sl[employer] Stripper of Health and Human Service's declaration that circumstances exist to justify the emergency use of in vitro diagnostics for the detection and/or diagnosis of the virus that causes COVID-19. This EUA will remain in effect for the duration of the COVID-19 declaration justifying emergency of IVDs, unless it is terminated or revoked by the FDA (after which the test may no longer be used).Performed By: #### CBC #### [facility] [address] [place] [address] Dr. Neisha AraizaPOINT OF CARE GLUCOSEon 15-23-2443Altttfa [Mass/Vol]215 mg/dL Critically eunl58-789Qge [facility] on above:Performed By: #### BASIA MCCANN, CMP #### [facility] [address] [address] [address] Neisha AraizaGlucose [Mass/Vol]187 mg/dLCritically jzef07-866Wwo [facility] HospitalComment on above:Performed By: #### CBC #### [facility] [address] [address] [address] Neisha AraizaGlucose [Mass/Vol]240 mg/dLCritically yhgy90-429Nek [facility] HospitalComment on above:Performed By: #### CBC #### [facility] [address] [place] [address] Dr. Neisha AraizaGlucose [Mass/Vol]251 mg/dLCritically rgjs17-111Xrr [facility] HospitalComcorewell health butterworth hospital on above:Performed By: #### CBC #### [facility] [address] [place] [address] Dr. Neisha AraizaGlucose [Mass/Vol]264 mg/dLCritically qdoy90-912Xfe [facility] HospitalComment on above:Performed By: #### BASIA MCCANN, CMP #### [facility] [address] [place] [address] Dr. Neisha AraizaPROF 14(COMP METB)on [id number] [Mass/Vol]2.9 g/dL Critically low3.4-5.0The [facility] HospitalComcorewell health butterworth hospital on above:Performed By: #### BASIA MCCANN, CMP #### [facility] [address] [place] [address] Dr. Neisha AraizaAlbumin/Globulin [Mass ratio]0.9 {ratio}NormalThe [facility] HospitalComcorewell health butterworth hospital on above:Performed By: #### BASIA MCCANN, CMP #### [facility] [address] [place] [address] Dr. Neisha FletcherP [Catalytic activity/Vol]92 U/HBbxokp08-492Ljw [facility] on above:Performed By: #### BASIA MCCANN, CMP #### [facility] [address] [place] [address] Dr. Neisha Seay [Catalytic activity/Vol]28 U/MSsodkj87-08Mke David HospitalComment on above:Performed By: #### BASIA MCCANN, CMP #### [facility] [address] [place] [address] Dr. Neisha Contion gap [Moles/Vol]19.9 mmol/LNormalPrem[facility] Comment on above:Performed By: #### LIPWade, BASIA, CMP #### [facility] [address] [place] [address] Dr. Neisha AraizaAST [Catalytic activity/Vol]14 U/LCritically lui63-19Skh [facility] HospitalComment on above:Performed By: #### LIPWade BASIA, CMP #### [facility] [address] [place] [address] Dr. Neisha AraizaCalcium [Mass/Vol]7.8 mg/dLCritically low8.5-10.1The [facility] HospitalComment on above:Performed By: #### RAMY BASIA, CMP #### [facility] [address] [place] [address] Dr. Neisha AraizaChloride [Moles/Vol]102 mmol/ZCijxet94-660GykPrem[facility] Health [facility] Comment on above:Performed By: #### BASIA MCCANN, CMP #### [facility] [address] [place] [address] Dr. Neisha AraizaCO2 [Moles/Vol]17.7 mmol/LCritically low21.0-32.0The [facility] HospitalComment on above:Performed By: #### RAMY BASIA, CMP #### [facility] [address] [place] [address] Dr. Neisha AraizaCreatinine [Mass/Vol]0.60 mg/dLNormal0.55-1.02The [facility] HospitalComment on above:Performed By: #### LIPWade BASIA, CMP #### [facility] [address] [place] [address] Dr. Neisha Timmons-AF COOK ISLANDER>60Normal>=60The [facility] HospitalComment on above:Performed By: #### LIPA BASIA, CMP #### [facility] [address] [place] [address] Dr. Yilan ChangEGFR-NON AF COOK ISLANDER>60Normal>=60The [facility] HospitalComment on above:Performed By: #### BASIA MCCANN, CMP #### [facility] [address] [address] [address] Neisha AraizaGlobulin (S) [Mass/Vol]3.4 g/dLNoRegency Hospital CompanyComment on above:Performed By: #### BASIA MCCANN, CMP #### [facility] [address] [address] [address] Neisha AraizaGlucose [Mass/Vol]272 mg/dLCritically bxwp71-300Ogq [facility] HospitalComment on above:Performed By: #### BASIA MCCANN, CMP #### [facility] [address] [place] [address] Dr. Neisha AraizaPotassium [Moles/Vol]3.6 mmol/LNormal3.5-5.1The [facility] Comment on above:Performed By: #### BASIA MCCANN, CMP #### [facility] [address] [place] [address] Dr. Neisha AraizaProtein [Mass/Vol]6.3 g/dLCritically low6.4-8.2The [facility] HospitalComment on above:Performed By: #### BASIA MCCANN, CMP #### [facility] [address] [place] [address] Dr. Neisha AraizaSodium [Moles/Vol]136 mmol/CDdjoin256-081Vxs [facility] Comment on above:Performed By: #### BASIA MCCANN, CMP #### [facility] [address] [place] [address] Dr. Neisha AraizaUrea nitrogen [Mass/Vol]9.0 mg/dLNormal7.0-18.0The [facility] HospitalComment on above:Performed By: #### BASIA MCCANN, CMP #### [facility] [address] [place] [address] Dr. Neisha AraizaUrea nitrogen/Creatinine [Mass ratio]15.0 mg/mgNoRegency Hospital CompanyComment on above:Performed By: #### JORDANA BASIA, CMP #### [facility] [address] [place] [address] Dr. Neisha Feliciano ABD FLAT_UPon [id number] ABD FLAT_UPEXAM: XR ABD FLAT_UP HISTORY: Vomiting COMPARISON: CT [...] Electronically authenticated by: MARIAELENA BROWN Date: 2022-01-04 01:26Normal The [facility] HospitalACETONE SERUMon [id number]XURXMVgu [facility] HospitalComment on above:Performed By: #### ACETON #### [facility] [address] [place] [address] Dr. Neisha RetanaONESMALLAbnormalNEGATIVEPremier Health [facility] Hospital SouthComment on above:Performed By: #### CBC #### [facility] [address] [place] [address] Dr. Neisha AraizaAMYLASEon [id number] [Catalytic activity/Vol]15 U/L Critically rgu01-761IvpPremier Health [facility] Hospital SouthComment on above:Performed By: #### LIPBASIA Olvera, CMP #### [facility] [address] [place] [address] Dr. Neisha AraizaCARDIAC BRI ADMITon 12-50-2311FX [Catalytic activity/Vol]44 U/L Wmlbnw77-534LrwPremier Health [facility] Hospital SouthComment on above:Performed By: #### LIPA BASIA, CMP #### [facility] [address] [place] [address] Dr. Neisha Gonzalez.MB [Mass/Vol]0.93 ng/mLNormal<=3.60[facility] Comment on above:Performed By: #### LIPA BASIA, CMP #### [facility] [address] [place] [address] Dr. Neisha AraizaTROP4.1 pg/mLNormal4.0-51.3The [facility] HospitalComment on above:Result Comment: CUT-OFF POINTS HAVE BEEN ESTABLISHED BASED ON THE FOURTH UNIVERSAL DEFINITIONS OF MYOCARDIAL INFARCTION. THE UPPER REFERENCE LIMIT (URL) OF TROPONIN, DEFINED THE 99TH PERCENTILE OF cTnI DISTRIBUTION IN A REFERENCE POPULATION, HAS BEEN CONFIRMED THE DECISION THRESHOLD FOR [place] DIAGNOSIS.Performed By: #### BASIA MCCANN, CMP #### [facility] [address] [place] [address] Dr. Neisha AraizaMYO20 ng/mLNormal9-82The [facility] on above: Performed By: #### BASIA MCCANN, CMP #### [facility] [address] [place] [address] Dr. Neisha Price AUTO DIFFon 14-27-1979Pvdfrxtik/100 WBC (Bld)0.3 %Normal 0.2-2.0The [facility] on above:Performed By: #### CBC #### [facility] [address] [place] [address] Dr. Neisha AraizaHematocrit (Bld) [Volume fraction]42.7 %Pstzwe39.0-48.0The [facility] HospitalComment on above:Performed By: #### CBC #### [facility] [address] [place] [address] Dr. Neisha AraizaHemoglobin (Bld) [Mass/Vol]14.3 g/gVUbuziq40.0-16.0The [facility] on above:Performed By: #### CBC #### [facility] [address] [place] [address] Dr. Neisha Gould #0.03 10e3/ulNormal0.00-0.03The [facility] on above:Performed By: #### CBC #### [facility] [address] [place] [address] Dr. Neisha Gould %0.3 %Normal0.0-0.5The [facility] on above: Performed By: #### CBC #### [facility] [address] [place] [address] Dr. Neisha Sánchez #1.1 103/ulCritically low1.2-3.8ThProvidence Hospital Comment on above:Performed By: #### CBC #### [facility] [address] [place] [address] Dr. Neisha Jordanmphocytes/100 WBC (Bld)12.9 %Critically low20.5-60.0The [facility] HospitalComment on above:Performed By: #### CBC #### [facility] [address] [place] [address] Dr. Neisha CampaHC (RBC) [Mass/Vol]33.5 g/oRQsllfy76.9-35.2The [facility] HospitalComment on above:Performed By: #### CBC #### [facility] [address] [place] [address] Dr. Neisha CampaV (RBC) [Entitic vol]85.2 cZJsxrjj78.0-99.0[facility] SouthComment on above:Performed By: #### CBC #### [facility] [address] [place] [address] Dr. Neisha Evans #0.3 103/ulNormal0.3-0.8ThProvidence HospitalComment on above:Performed By: #### CBC #### [facility] [address] [place] [address] Dr. Neisha Plasenciaocytes/100 WBC (Bld)3.3 %Normal1.7-12.0[facility] Comment on above:Performed By: #### CBC #### [facility] [address] [place] [address] Dr. Neisha Santos #7.3 103/ulCritically high1.4-6.5ThProvidence Hospital Comment on above:Performed By: #### CBC #### [facility] [address] [place] [address] Dr. Neisha Samuelutrophils/100 WBC (Bld)83.2 %Critically high43.0-75.0[facility] SouthComment on above:Performed By: #### CBC #### [facility] [address] [place] [address] Dr. Neisha AraizaPLT281 103/oxNicxbi908-485Uug [facility] on above: Performed By: #### CBC #### [facility] [address] [place] [address] Dr. Neisha AraizaRBC5.01 106/ulNormal4.20-5.40The [facility] HospitalComment on above:Performed By: #### CBC #### [facility] [address] [place] [address] Dr. Neisha AraizaWBC8.8 103/ulNormal4.0-11.0The [facility] on above: Performed By: #### CBC #### [facility] [address] [place] [address] Dr. Neisha Bello #0.0 103/ulNormal0.0-0.1The [facility] on above:Performed By: #### CBC #### [facility] [address] [place] [address] Dr. Neisha AraizaPerformed By: #### ACETON #### [facility] [address] [place] [address] Dr. Neisha Bellophils/100 WBC (Bld)0.5 %Normal0.2-2.0The [facility] on above:Performed By: #### ACETON #### [facility] [address] [place] [address] Dr. Neisha Mcconnell #0.0 103/ulNormal0.0-0.7The [facility] on above: Performed By: #### CBC #### [facility] [address] [place] [address] Dr. Neisha AraizaPerformed By: #### ACETON #### [facility] [address] [place] [address] Dr. Neisha Paigeosinophils/100 WBC (Bld)0.0 %Critically low0.9-7.0The [facility] on above:Performed By: #### CBC #### [facility] [address] [place] [address] Dr. Neisha AraizaPerformed By: #### ACETON #### [facility] [address] [place] [address] Dr. Neisha Paigerythrocyte distribution width (RBC) [Ratio]13.2 %Egfdvf58.0-15.0 The [facility] HospitalComment on above:Performed By: #### CBC #### [facility] [address] [place] [address] Dr. Neisha AraizaPerformed By: #### ACETON #### [facility] [address] [place] [address] Dr. Neisha AraizaHematocrit (Bld) [Volume fraction]45.8 %Srljcn49.0-48.0The [facility] HospitalComment on above:Performed By: #### ACETON #### [facility] [address] [place] [address] Dr. Neisha AraizaHemoglobin (Bld) [Mass/Vol]15.6 g/gHTwcoem92.0-16.0The [facility] HospitalComment on above:Performed By: #### ACETON #### [facility] [address] [place] [address] Dr. Neisha Gould #0.05 10e3/ulCritically high0.00-0.03[facility] Comment on above:Performed By: #### ACETON #### [facility] [address] [place] [address] Dr. Neisha Gould %0.6 %Critically high0.0-0.5ThProvidence HospitalComment on above:Performed By: #### ACETON #### [facility] [address] [place] [address] Dr. Neisha Sánchez #0.7 103/ulCritically low1.2-3.8The [facility] Comment on above:Performed By: #### ACETON #### [facility] [address] [place] [address] Dr. Neisha Jordanmphocytes/100 WBC (Bld)8.3 %Critically low20.5-60.0The [facility] HospitalComment on above:Performed By: #### ACETON #### [facility] [address] [place] [address] Dr. Neisha Shahid DIFF REQNONormalThe [facility] HospitalComment on above: Performed By: #### CBC #### [facility] [address] [place] [address] Dr. Neisha AraizaPerformed By: #### ACETON #### [facility] [address] [place] [address] Dr. Neisha Campa (RBC) [Entitic mass]28.5 nsWsbxoj37.7-34.0The [facility] HospitalComment on above:Performed By: #### CBC #### [facility] [address] [place] [address] Dr. Neisha AraizaPerformed By: #### ACETON #### [facility] [address] [place] [address] Dr. Neisha Campa (RBC) [Mass/Vol]34.1 g/bDHhqqaf24.9-35.2The [facility] HospitalComment on above:Performed By: #### ACETON #### [facility] [address] [place] [address] Dr. Neisha Campa (RBC) [Entitic vol]83.7 zFXtiuri42.0-99.0The [facility] HospitalComment on above:Performed By: #### ACETON #### [facility] [address] [place] [address] Dr. Neisha Evans #0.2 103/ulCritically low0.3-0.8The [facility] HospitalComment on above:Performed By: #### ACETON #### [facility] [address] [place] [address] Dr. Neisha Plasenciaocytes/100 WBC (Bld)2.7 %Normal1.7-12.0The [facility] Comment on above:Performed By: #### ACETON #### [facility] [address] [place] [address] Dr. Neisha Santos #6.9 103/ulCritically high1.4-6.5The [facility] Comment on above:Performed By: #### ACETON #### [facility] [address] [place] [address] Dr. Neisha Samuelutrophils/100 WBC (Bld)87.9 %Critically high43.0-75.0The [facility] HospitalComment on above:Performed By: #### ACETON #### [facility] [address] [place] [address] Dr. Neisha AraizaPlatelet mean volume (Bld) [Entitic vol]9.9 fLNormal9.5-13.5The [facility] HospitalComment on above:Performed By: #### CBC #### [facility] [address] [place] [address] Dr. Neisha AraizaPerformed By: #### ACETON #### [facility] [address] [place] [address] Dr. Neisha AraizaPLT260 103/upAyqica630-720Hkc [facility] HospitalComment on above: Performed By: #### ACETON #### [facility] [address] [place] [address] Dr. Neisha AraizaRBC5.47 106/ulCritically high4.20-5.40[facility] Comment on above:Performed By: #### ACETON #### [facility] [address] [place] [address] Dr. Neisha AraizaWBC7.8 103/ulNormal4.0-11.0The [facility] HospitalComment on above: Performed By: #### ACETON #### [facility] [address] [place] [address] Dr. Neisha AraizaLIPASEon [id number] [Catalytic activity/Vol]72.0 U/L Critically low73.0-393.0The [facility] HospitalComment on above:Performed By: #### LIPA, BASIA, CMP #### [facility] [address] [place] [address] Dr. Neisha Andrea VENOUS BLOODon [id number] BJCCQL42.2 mmHgCritically low 40.0-52.0The [facility] on above:Performed By: #### BASIA MCCANN, CMP #### [facility] [address] [place] [address] Dr. Neisha Andrea VENOUS7.527Ujaeyn9.330-7.430The [facility] HospitalComment on above:Performed By: #### BASIA MCCANN, CMP #### [facility] [address] [place] [address] Dr. Neisha AraizaWEBSTERVILLE OF CARE GLUCOSEon [id number] [Mass/Vol]283 mg/dL Critically swhj97-633Mbx [facility] HospitalComcorewell [facility] on above:Performed By: #### BASAI MCCANN, CMP #### [facility] [address] [place] [address] Dr. Neisha AraizaGlucose [Mass/Vol]297 mg/dLCritically mzww54-880Aqn [facility] HospitalComcorewell health [facility] on above:Performed By: #### ACETON #### [facility] [address] [place] [address] Dr. Neisha AraizaPROF 14(COMP METB)on [id number] [Mass/Vol]3.6 g/dLNormal 3.4-5.0The [facility] HospitalComcore[facility] on above:Performed By: #### BASIA MCCANN, CMP #### [facility] [address] [place] [address] Dr. Neisha AraizaAlbumin/Globulin [Mass ratio]0.8 {ratio}NormalThe [facility] on above:Performed By: #### BASIA MCCANN, CMP #### [facility] [address] [place] [address] Dr. Neisha Pettit [Catalytic activity/Vol]131 U/LCritically qzfp01-260Xfo [facility] HospitalComcore[facility] on above:Performed By: #### BASIA MCCANN, CMP #### [facility] [address] [place] [address] Dr. Neisha Seay [Catalytic activity/Vol]39 U/JAknevz01-16Hmx [facility] HospitalComment on above:Performed By: #### BASIA MCCANN, CMP #### [facility] [address] [place] [address] Dr. Neisha Contion gap [Moles/Vol]20.7 mmol/LNormalThe [facility] Comment on above:Performed By: #### LIPWade BASIA, CMP #### [facility] [address] [place] [address] Dr. Neisha AraizaAST [Catalytic activity/Vol]19 U/FMflfcj79-28Wpa [facility] HospitalComment on above:Performed By: #### BASIA MCCANN, CMP #### [facility] [address] [place] [address] Dr. Neisha AraizaCalcium [Mass/Vol]8.9 mg/dLNormal8.5-10.1The [facility] Comment on above:Performed By: #### RAMY BASIA, CMP #### [facility] [address] [place] [address] Dr. Neisha AraizaChloride [Moles/Vol]97 mmol/LCritically dme06-629Wji [facility] HospitalComment on above:Performed By: #### BASIA MCCANN, CMP #### [facility] [address] [place] [address] Dr. Neisha AraizaCO2 [Moles/Vol]19.2 mmol/LCritically low21.0-32.0The [facility] HospitalComment on above:Performed By: #### RAMY BASIA, CMP #### [facility] [address] [place] [address] Dr. Neisha AraizaCreatinine [Mass/Vol]0.60 mg/dLNormal0.55-1.02The [facility] HospitalComment on above:Performed By: #### LIPWade BASIA, CMP #### [facility] [address] [place] [address] Dr. Neisha AraizaGlobulin (S) [Mass/Vol]4.3 g/dLNormalThe [facility] HospitalComment on above:Performed By: #### LIPA, BASIA, CMP #### [facility] [address] [address] [address] Neisha AraizaGlucose [Mass/Vol]368 mg/dLCritically ewzq88-096Acn [facility] HospitalComment on above:Performed By: #### BSAIA MCCANN, CMP #### [facility] [address] [address] [address] Neisha AraizaProtein [Mass/Vol]7.9 g/dLNormal6.4-8.2The [facility] Comment on above:Performed By: #### BASIA MCCANN, CMP #### [facility] [address] [place] [address] Dr. Neisha AraizaSodium [Moles/Vol]133 mmol/LCritically tuj782-186Xht [facility] HospitalComment on above:Performed By: #### BASIA MCCANN, CMP #### [facility] [address] [place] [address] Dr. Neisha AraizaUrea nitrogen [Mass/Vol]13.0 mg/dLNormal7.0-18.0The [facility] HospitalComment on above:Performed By: #### BASIA MCCANN, CMP #### [facility] [address] [place] [address] Dr. Neisha Monterroso nitrogen/Creatinine [Mass ratio]21.7 mg/mgNormalThe [facility] HospitalComment on above:Performed By: #### BASIA MCCANN, CMP #### [facility] [address] [place] [address] Dr. Neisha AraizaPROF CHEM 8 (BAS METB)on [id number] gap [Moles/Vol]20.2 mmol/LNormalThe [facility] HospitalComment on above:Performed By: #### BASIA MCCANN, CMP #### [facility] [address] [place] [address] Dr. Neisha AraizaCalcium [Mass/Vol]8.0 mg/dLCritically low8.5-10.1The [facility] HospitalComment on above:Performed By: #### BASIA MCCANN, CMP #### [facility] [address] [address] [address] Neisha AraizaChloride [Moles/Vol]102 mmol/HGyetow90-440Gdn [facility] Comment on above:Performed By: #### BASIA MCCANN, CMP #### [facility] [address] [address] [address] Neisha AraizaCO2 [Moles/Vol]16.7 mmol/LCritically low21.0-32.0The [facility] HospitalComment on above:Performed By: #### BASIA MCCANN, CMP #### [facility] [address] [address] [address] Neisha AraizaCreatinine [Mass/Vol]0.62 mg/dLNormal0.55-1.02The [facility] on above:Performed By: #### BASIA MCCANN, CMP #### [facility] [address] [place] [address] Dr. Neisha AraizaGlucose [Mass/Vol]287 mg/dLCritically jzyp95-915Hxi [facility] HospitalComment on above:Performed By: #### BASIA MCCANN, CMP #### [facility] [address] [address] [address] Neisha AraizaSodium [Moles/Vol]135 mmol/LCritically rgf298-706Odw [facility] on above:Performed By: #### BASIA MCCANN, CMP #### [facility] [address] [address] [address] Neisha AraizaUrea nitrogen [Mass/Vol]11.0 mg/dLNormal7.0-18.0The [facility] on above:Performed By: #### BASIA MCCANN, CMP #### [facility] [address] [place] [address] Dr. Neisha AraizaUrea nitrogen/Creatinine [Mass ratio]17.7 mg/mgNormalThe [facility] HospitalComcorewell [facility] on above:Performed By: #### BASIA MCCANN, CMP #### [facility] [address] [address] [address] Neisha PaigeGFR-AF COOK ISLANDER>60Normal>=60The [facility] HospitalComment on above:Performed By: #### BASIA MCCANN, CMP #### [facility] [address] [address] [address] Neisha PaigeGFR-NON AF COOK ISLANDER>60Normal>=60The [facility] HospitalComment on above:Performed By: #### BASIA MCCANN, CMP #### [facility] [address] [address] [address] Neisha AraizaPotassium [Moles/Vol]3.9 mmol/LNormal3.5-5.1[facility] Comment on above:Performed By: #### BASIA MCCANN, CMP #### [facility] [address] [place] [address] Dr. Neisha Price AUTO DIFFon [id number] #0.1 103/ulNormal0.0-0.1[facility] SouthComment on above:Performed By: #### CBC #### [facility] [address] [place] [address] Dr. Neisha AraizaBasophils/100 WBC (Bld)0.6 %Normal0.2-2.0[facility] Comment on above:Performed By: #### CBC #### [facility] [address] [place] [address] Dr. Neisha Mcconnell #0.0 103/ulNormal0.0-0.7The [facility] HospitalComment on above: Performed By: #### CBC #### [facility] [address] [place] [address] Dr. Neisha Paigeosinophils/100 WBC (Bld)0.5 %Critically low0.9-7.0The [facility] HospitalComment on above:Performed By: #### CBC #### [facility] [address] [place] [address] Dr. Neisha Berriosthrocyte distribution width (RBC) [Ratio]12.6 %Wymnfx68.0-15.0 The [facility] HospitalComment on above:Performed By: #### CBC #### [facility] [address] [place] [address] Dr. Neisha AraizaHematocrit (Bld) [Volume fraction]40.7 %Yytvgo45.0-48.0The [facility] HospitalComment on above:Performed By: #### CBC #### [facility] [address] [address] [address] Neisha AraizaHemoglobin (Bld) [Mass/Vol]14.4 g/pUWksptg24.0-16.0The [facility] HospitalComment on above:Performed By: #### CBC #### [facility] [address] [address] [address] Neisha AraizaIG #0.05 10e3/ulCritically high0.00-0.03The [facility] Comment on above:Performed By: #### CBC #### [facility] [address] [place] [address] Dr. Neisha AraizaIG %0.6 %Critically high0.0-0.5The [facility] HospitalComment on above:Performed By: #### CBC #### [facility] [address] [place] [address] Dr. Neisha Sánchez #2.3 103/ulNormal1.2-3.8The [facility] HospitalComment on above:Performed By: #### CBC #### [facility] [address] [place] [address] Dr. Neisha Jordanmphocytes/100 WBC (Bld)26.2 %Ccqixe35.5-60.0The [facility] HospitalComment on above:Performed By: #### CBC #### [facility] [address] [place] [address] Dr. Neisha AraizaMANUAL DIFF REQNONormalThe [facility] HospitalComment on above: Performed By: #### CBC #### [facility] [address] [place] [address] Dr. Neisha Torres (RBC) [Entitic mass]28.4 twYiqnby39.7-34.0The [facility] HospitalComment on above:Performed By: #### CBC #### [facility] [address] [place] [address] Dr. Neisha CampaHC (RBC) [Mass/Vol]35.4 g/dLCritically high29.9-35.2The [facility] HospitalComment on above:Performed By: #### CBC #### [facility] [address] [address] [address] Neisha CampaV (RBC) [Entitic vol]80.3 fLCritically low81.0-99.0The [facility] HospitalComment on above:Performed By: #### CBC #### [facility] [address] [address] [address] Neisha Evans #0.5 103/ulNormal0.3-0.8The [facility] HospitalComment on above:Performed By: #### CBC #### [facility] [address] [address] [address] Neisha Plasenciaocytes/100 WBC (Bld)5.5 %Normal1.7-12.0The [facility] Comment on above:Performed By: #### CBC #### [facility] [address] [address] [address] Neisha Santos #5.7 103/ulNormal1.4-6.5The [facility] HospitalComment on above:Performed By: #### CBC #### [facility] [address] [address] [address] Neisha Samuelutrophils/100 WBC (Bld)66.6 %Ojplez80.0-75.0The [facility] HospitalComment on above:Performed By: #### CBC #### [facility] [address] [address] [address] Neisha Meilet mean volume (Bld) [Entitic vol]9.5 fLNormal9.5-13.5The [facility] HospitalComment on above:Performed By: #### CBC #### [facility] [address] [address] [address] Neisha AraizaPLT266 103/koNlmmms421-291Lmd [facility] HospitalComment on above: Performed By: #### CBC #### [facility] [address] [place] [address] Dr. Neisha AraizaRBC5.07 106/ulNormal4.20-5.40The [facility] on above:Performed By: #### CBC #### [facility] [address] [place] [address] Dr. Neisha AraizaWBC8.6 103/ulNormal4.0-11.0The [facility] HospitalComment on above: Performed By: #### CBC #### [facility] [address] [place] [address] Dr. Neisha AraizaPOINT OF CARE GLUCOSEon [id number] [Mass/Vol]157 mg/dL Critically fahv12-516Jlp [facility] on above:Performed By: #### CBC #### [facility] [address] [place] [address] Dr. Neisha AraizaGlucose [Mass/Vol]223 mg/dLCritically golf37-631Jpq [facility] on above:Performed By: #### BASIA MCCANN, CMP #### [facility] [address] [place] [address] Dr. Neisha AraizaPROF 14(COMP METB)on 21-30-3896Hldwgwd [Mass/Vol]3.1 g/dL Critically low3.4-5.0The [facility] on above:Performed By: #### CBC #### [facility] [address] [place] [address] Dr. Neisha AraizaAlbumin/Globulin [Mass ratio]0.9 {ratio}NormalThe [facility] on above:Performed By: #### CBC #### [facility] [address] [place] [address] Dr. Neisha Pettit [Catalytic activity/Vol]96 U/JIrqcae99-160Eep [facility] on above:Performed By: #### CBC #### [facility] [address] [place] [address] Dr. Neisha Seay [Catalytic activity/Vol]28 U/PWbatwj76-15Ifh [facility] HospitalComment on above:Performed By: #### CBC #### [facility] [address] [address] [address] Neisha Montalvo gap [Moles/Vol]17.9 mmol/LNormalThe [facility] Comment on above:Performed By: #### CBC #### [facility] [address] [address] [address] Neisha AraizaAST [Catalytic activity/Vol]19 U/MRgzuwc02-86Biv [facility] HospitalComment on above:Performed By: #### CBC #### [facility] [address] [address] [address] Neisha AraizaBilirubin [Mass/Vol]1.0 mg/dLNormal0.2-1.0The [facility] Comment on above:Performed By: #### CBC #### [facility] [address] [place] [address] Dr. Neisha AraizaCalcium [Mass/Vol]8.1 mg/dLCritically low8.5-10.1The [facility] HospitalComment on above:Performed By: #### CBC #### [facility] [address] [place] [address] Dr. Neisha AraizaChloride [Moles/Vol]95 mmol/LCritically yqw88-973Eed [facility] HospitalComcore[facility] on above:Performed By: #### CBC #### [facility] [address] [place] [address] Dr. Neisha AraizaCO2 [Moles/Vol]19.2 mmol/LCritically low21.0-32.0The [facility] HospitalComment on above:Performed By: #### CBC #### [facility] [address] [address] [address] Neisah AraizaCreatinine [Mass/Vol]0.51 mg/dLCritically low0.55-1.02The [facility] HospitalComment on above:Performed By: #### CBC #### [facility] [address] [address] [address] Driver ChangEGFR-AF COOK ISLANDER>60Normal>=60The [facility] HospitalComment on above:Performed By: #### CBC #### [facility] [address] [address] [address] Nesiha PaigeGFR-NON AF COOK ISLANDER>60Normal>=60The [facility] HospitalComment on above:Performed By: #### CBC #### [facility] [address] [address] [address] Neisha AraizaGlobulin (S) [Mass/Vol]3.6 g/dLNormalThProvidence HospitalComment on above:Performed By: #### CBC #### [facility] [address] [address] [address] Neisha AraizaGlucose [Mass/Vol]230 mg/dLCritically nwcv67-336Mye [facility] HospitalComment on above:Performed By: #### CBC #### [facility] [address] [address] [address] Neisha AraizaPotassium [Moles/Vol]3.1 mmol/LCritically low3.5-5.1The [facility] HospitalComment on above:Performed By: #### CBC #### [facility] [address] [address] [address] Neisha AraizaProtein [Mass/Vol]6.7 g/dLNormal6.4-8.2The [facility] Comment on above:Performed By: #### CBC #### [facility] [address] [address] Dr. Neisha AraizaSodium [Moles/Vol]129 mmol/LCritically [id number] [facility] on above:Performed By: #### CBC #### [facility] [address] [address] [address] Neisha AraizaUrea nitrogen [Mass/Vol]5.0 mg/dLCritically low7.0-18.0The [facility] HospitalComment on above:Performed By: #### CBC #### [facility] [address] [address] [address] Neisha AraizaUrea nitrogen/Creatinine [Mass ratio]9.8 mg/mgNormalThe [facility] HospitalComment on above:Performed By: #### CBC #### [facility] [address] [address] [address] Neisha Price AUTO DIFFon [id number] #0.0 103/ulNormal0.0-0.1The [facility] HospitalComment on above:Performed By: #### CBC #### [facility] [address] [place] [address] Dr. Neisha AraizaBasophils/100 WBC (Bld)0.5 %Normal0.2-2.0The [facility] Comment on above:Performed By: #### CBC #### [facility] [address] [place] [address] Dr. Neisha Mcconnell #0.0 103/ulNormal0.0-0.7The [facility] HospitalComment on above: Performed By: #### CBC #### [facility] [address] [place] [address] Dr. Neisha Paigeosinophils/100 WBC (Bld)0.2 %Critically low0.9-7.0The [facility] HospitalComment on above:Performed By: #### CBC #### [facility] [address] [place] [address] Dr. Neisha Paigerythrocyte distribution width (RBC) [Ratio]12.4 %Unfank80.0-15.0 The [facility] HospitalComment on above:Performed By: #### CBC #### [facility] [address] [place] [address] Dr. Neisha AraizaHematocrit (Bld) [Volume fraction]39.3 %Oyabbp28.0-48.0The [facility] HospitalComment on above:Performed By: #### CBC #### [facility] [address] [place] [address] Dr. Neisha AraizaHemoglobin (Bld) [Mass/Vol]13.5 g/sDMliopy59.0-16.0[facility] SouthComment on above:Performed By: #### CBC #### [facility] [address] [place] [address] Dr. Neisha Gould #0.04 10e3/ulCritically high0.00-0.03The [facility] Comment on above:Performed By: #### CBC #### [facility] [address] [place] [address] Dr. Neisha Gould %0.5 %Normal0.0-0.5The [facility] HospitalComment on above: Performed By: #### CBC #### [facility] [address] [address] [address] Neisha Sánchez #1.8 103/ulNormal1.2-3.8The [facility] HospitalComment on above:Performed By: #### CBC #### [facility] [address] [place] [address] Dr. Neisha Davishocytes/100 WBC (Bld)21.7 %Capmix04.5-60.0The [facility] HospitalComment on above:Performed By: #### CBC #### [facility] [address] [place] [address] Dr. Neisha Shahid DIFF REQNONormalThe [facility] HospitalComment on above: Performed By: #### CBC #### [facility] [address] [place] [address] Dr. Neisha Torres (RBC) [Entitic mass]28.2 ecKohheq39.7-34.0The [facility] HospitalComment on above:Performed By: #### CBC #### [facility] [address] [place] [address] Dr. Neisha Campa (RBC) [Mass/Vol]34.4 g/zOTktubi32.9-35.2The [facility] HospitalComment on above:Performed By: #### CBC #### [facility] [address] [place] [address] Dr. Neisha Campa (RBC) [Entitic vol]82.2 sIKbbzio01.0-99.0[facility] SouthComment on above:Performed By: #### CBC #### [facility] [address] [place] [address] Dr. Yilan ChangMONO #0.5 103/ulNormal0.3-0.8The [facility] HospitalComment on above:Performed By: #### CBC #### [facility] [address] [place] [address] Dr. Neisha Plasenciaocytes/100 WBC (Bld)6.4 %Normal1.7-12.0The [facility] Comment on above:Performed By: #### CBC #### [facility] [address] [place] [address] Dr. Neisha Santos #5.7 103/ulNormal1.4-6.5The [facility] HospitalComment on above:Performed By: #### CBC #### [facility] [address] [place] [address] Dr. Neisha Samuelutrophils/100 WBC (Bld)70.7 %Ohuofg26.0-75.0The [facility] HospitalComment on above:Performed By: #### CBC #### [facility] [address] [place] [address] Dr. Neisha Meilet mean volume (Bld) [Entitic vol]9.4 fLCritically low 9.5-13.5The [facility] HospitalComment on above:Performed By: #### CBC #### [facility] [address] [place] [address] Dr. Neisha AraizaPLT250 103/uvVrrgtc868-723Kul [facility] HospitalComment on above: Performed By: #### CBC #### [facility] [address] [place] [address] Dr. Neisha AraizaRBC4.78 106/ulNormal4.20-5.40The [facility] HospitalComment on above:Performed By: #### CBC #### [facility] [address] [place] [address] Dr. Neisha AraizaWBC8.1 103/ulNormal4.0-11.0The [facility] HospitalComment on above: Performed By: #### CBC #### [facility] [address] [place] [address] Dr. Neisah AraizaPIEDM[facility] GLUCOSEon [id number] [Mass/Vol]232 mg/dL Critically meuc30-941Tsc [facility] HospitalComment on above:Performed By: #### BASIA MCCANN, CMP #### [facility] [address] [place] [address] Dr. Neisha AraizaGlucose [Mass/Vol]197 mg/dLCritically bpgo02-180Nyp [facility] HospitalComment on above:Performed By: #### BASIA MCCANN, CMP #### [facility] [address] [place] [address] Dr. Neisha AraizaGlucose [Mass/Vol]289 mg/dLCritically fnac00-852IwbPremier Health [facility] Hospital SouthComcorewell health [facility] on above:Performed By: #### CBC #### [facility] [address] [place] [address] Dr. Neisha AraizaGlucose [Mass/Vol]200 mg/dLCritically danw07-118XkuPrem[facility] Health [facility] Hospital SouthComcorewell health butterworth hospital on above:Performed By: #### ACETON #### [facility] [address] [place] [address] Dr. Neisha AraizaPROF 14(COMP METB)on [id number] [Mass/Vol]2.9 g/dL Critically low3.4-5.0[facility] on above:Performed By: #### BASIA MCCANN, CMP #### [facility] [address] [place] [address] Dr. Neisha AraizaAlbumin/Globulin [Mass ratio]0.8 {ratio}NormalThe [facility] on above:Performed By: #### BASIA MCCANN, CMP #### [facility] [address] [place] [address] Dr. Neisha FletcherP [Catalytic activity/Vol]90 U/QSywntn32-730Wlr [facility] on above:Performed By: #### BASIA MCCANN, CMP #### [facility] [address] [place] [address] Dr. Neisha Seay [Catalytic activity/Vol]26 U/BLjoszu64-47Qgs [facility] HospitalComment on above:Performed By: #### BASIA MCCANN, CMP #### [facility] [address] [address] [address] Neisha Montalvo gap [Moles/Vol]17.6 mmol/LNormalThe [facility] Comment on above:Performed By: #### LIPA, BASIA, CMP #### [facility] [address] [address] [address] Neisha AraizaAST [Catalytic activity/Vol]19 U/EPmhjse85-70Sky [facility] HospitalComment on above:Performed By: #### LIPA, BASIA, CMP #### [facility] [address] [address] [address] Neisha AraizaBilirubin [Mass/Vol]0.8 mg/dLNormal0.2-1.0The [facility] Comment on above:Performed By: #### LIPA, BASIA, CMP #### [facility] [address] [place] [address] Dr. Neisha AraizaCalcium [Mass/Vol]7.9 mg/dLCritically low8.5-10.1The [facility] HospitalComment on above:Performed By: #### LIPA, BASIA, CMP #### [facility] [address] [place] [address] Dr. Neisha AraizaChloride [Moles/Vol]98 mmol/SDlwpfy15-750CupPremier Health [facility] Hospital South Comment on above:Performed By: #### LIPA, BASIA, CMP #### [facility] [address] [address] [address] Neisha AraizaCO2 [Moles/Vol]18.6 mmol/LCritically low21.0-32.0The [facility] HospitalComment on above:Performed By: #### LIPA, BASIA, CMP #### [facility] [address] [place] [address] Dr. Neisha AraizaCreatinine [Mass/Vol]0.50 mg/dLCritically low0.55-1.02The [facility] HospitalComment on above:Performed By: #### LIPA, BASIA, CMP #### [facility] [address] [place] [address] Dr. Yilan ChangEGFR-AF COOK ISLANDER>60Normal>=60The [facility] HospitalComment on above:Performed By: #### BASIA MCCANN, CMP #### [facility] [address] [place] [address] Dr. Neisha PaigeGFR-NON AF [place]OOK ISLANDER>60Normal>=60The [facility] HospitalComment on above:Performed By: #### BASIA MCCANN, CMP #### [facility] [address] [place] [address] Dr. Neisha AraizaGlobulin (S) [Mass/Vol]3.5 g/dLNormalThe [facility] HospitalComment on above:Performed By: #### BASIA MCCANN, CMP #### [facility] [address] [place] [address] Dr. Neisha AraizaGlucose [Mass/Vol]195 mg/dLCritically swbn53-381Wsh [facility] HospitalComment on above:Performed By: #### BASIA MCCANN, CMP #### [facility] [address] [place] [address] Dr. Neisha AraizaPotassium [Moles/Vol]3.2 mmol/LCritically low3.5-5.1The [facility] HospitalComment on above:Performed By: #### BASIA MCCANN, CMP #### [facility] [address] [place] [address] Dr. Neisha AraizaProtein [Mass/Vol]6.4 g/dLNormal6.4-8.2The [facility] Comment on above:Performed By: #### BASIA MCCANN, CMP #### [facility] [address] [place] [address] Dr. Neisha AraizaSodium [Moles/Vol]131 mmol/LCritically efh232-441Nnr [facility] HospitalComment on above:Performed By: #### BASIA MCCANN, CMP #### [facility] [address] [place] [address] Dr. Neisha AraizaUrea nitrogen [Mass/Vol]7.0 mg/dLNormal7.0-18.0The [facility] HospitalComment on above:Performed By: #### BASIA MCCANN, CMP #### [facility] [address] [place] [address] Dr. Neisha AraizaUrea nitrogen/Creatinine [Mass ratio]14.0 mg/mgNormalThe [facility] HospitalComment on above:Performed By: #### BASIA MCCANN, CMP #### [facility] [address] [place] [address] Dr. Neisha AraizaACETONE SERUMon [id number]WAPRZkp [facility] HospitalComment on above:Performed By: #### BASIA MCCANN, CMP #### [facility] [address] [place] [address] Dr. Neisha AraizaAMYLASEon [id number] [Catalytic activity/Vol]31 U/LNormal 25-115The [facility] HospitalComment on above:Performed By: #### BASIA MCCANN, CMP #### [facility] [address] [place] [address] Dr. Neisha CardenasC AUTO DIFFon [id number] #0.0 103/ulNormal0.0-0.1The [facility] HospitalComment on above:Performed By: #### CBC #### [facility] [address] [place] [address] Dr. Neisha AraizaBasophils/100 WBC (Bld)0.5 %Normal0.2-2.0The [facility] Comment on above:Performed By: #### CBC #### [facility] [address] [place] [address] Dr. Neisha Mcconnell #0.0 103/ulNormal0.0-0.7The [facility] on above: Performed By: #### CBC #### [facility] [address] [place] [address] Dr. Neisha Paigeosinophils/100 WBC (Bld)0.0 %Critically low0.9-7.0The [facility] HospitalComment on above:Performed By: #### CBC #### [facility] [address] [place] [address] Dr. Yilan ChangErythrocyte distribution width (RBC) [Ratio]12.5 %Hxpofc41.0-15.0 [facility] SouthComment on above:Performed By: #### CBC #### [facility] [address] [place] [address] Dr. Neisha AraizaHematocrit (Bld) [Volume fraction]43.3 %Jxmayb85.0-48.0The [facility] HospitalComment on above:Performed By: #### CBC #### [facility] [address] [place] [address] Dr. Neisha AraizaHemoglobin (Bld) [Mass/Vol]15.3 g/lCAmghgj41.0-16.0The [facility] HospitalComment on above:Performed By: #### CBC #### [facility] [address] [place] [address] Dr. Neisha Gould #0.06 10e3/ulCritically high0.00-0.03[facility] Comment on above:Performed By: #### CBC #### [facility] [address] [place] [address] Dr. Neisha AraizaIG %0.7 %Critically high0.0-0.5ThProvidence HospitalComment on above:Performed By: #### CBC #### [facility] [address] [place] [address] Dr. Neisha DavisH #0.9 103/ulCritically low1.2-3.8The [facility] Comment on above:Performed By: #### CBC #### [facility] [address] [place] [address] Dr. Neisha Jordanmphocytes/100 WBC (Bld)10.8 %Critically low20.5-60.0The [facility] HospitalComment on above:Performed By: #### CBC #### [facility] [address] [place] [address] Dr. Neisha MelgarUAL DIFF REQNONormalThe [facility] HospitalComment on above: Performed By: #### CBC #### [facility] [address] [place] [address] Dr. Neisha Campa (RBC) [Entitic mass]28.4 pyTzifoi61.7-34.0The [facility] HospitalComment on above:Performed By: #### CBC #### [facility] [address] [address] [address] Neisha Campa (RBC) [Mass/Vol]35.3 g/dLCritically high29.9-35.2The [facility] HospitalComment on above:Performed By: #### CBC #### [facility] [address] [place] [address] Dr. Neisha Campa (RBC) [Entitic vol]80.3 fLCritically low81.0-99.0The [facility] HospitalComment on above:Performed By: #### CBC #### [facility] [address] [place] [address] Dr. Neisha Evans #0.5 103/ulNormal0.3-0.8The [facility] HospitalComment on above:Performed By: #### CBC #### [facility] [address] [address] [address] Neisha Plasenciaocytes/100 WBC (Bld)5.7 %Normal1.7-12.0[facility] Comment on above:Performed By: #### CBC #### [facility] [address] [place] [address] Dr. Neisha Santos #7.0 103/ulCritically high1.4-6.5The [facility] Comment on above:Performed By: #### CBC #### [facility] [address] [place] [address] Dr. Neisha Samuelutrophils/100 WBC (Bld)82.3 %Critically high43.0-75.0The [facility] HospitalComment on above:Performed By: #### CBC #### [facility] [address] [place] [address] Dr. Neisha Meilet mean volume (Bld) [Entitic vol]9.4 fLCritically low 9.5-13.5The [facility] HospitalComment on above:Performed By: #### CBC #### [facility] [address] [address] [address] Neisha AraizaPLT271 103/lbPncpmj394-525Uvx [facility] HospitalComment on above: Performed By: #### CBC #### [facility] [address] [address] [address] Neisha AraizaRBC5.39 106/ulNormal4.20-5.40The [facility] HospitalComment on above:Performed By: #### CBC #### [facility] [address] [address] [address] Neisha AraizaWBC8.5 103/ulNormal4.0-11.0The [facility] on above: Performed By: #### CBC #### [facility] [address] [address] [address] Neisha AraizaCT ABD/PELVIS WO CONon [id number] ABD/PELVIS WO CONEXAMINATION: CT ABD/PELVIS WO CON, 12/10/2021 2:09 PM [...] Electronically authenticated by: MATTHEW SILVER Date: 2021-12-10 14:48NormalThe [facility] Village HospitalCULTURE URINEon [id number] URINECulture Observations: GREATER THAN TWO ORGANISMS PRESENT. PLEASE RESUBMIT CLEAN CATCH MID-STREAM URINE IF CLINICALLY INDICATED.NormalThe [facility] HospitalComment on above:Performed By: #### ACETON #### [facility] [address] [place] [address] Dr. Neisha AraizaCovid-19 PCR ([place] HEALTHCARETB)on [id number]-CoV-2 (COVID-19) RNA TIM+probe Ql (Unsp spec)Not detectedNormalNOT DETECTEDThe [facility] Comment on above:Result Comment: When diagnostic testing is negative, the [...] for this test is supported by the [employer] of Health and Human Service's declaration that circumstances exist to justify the emergency use of in vitro diagnostics for the detection and/or diagnosis of the virus that causes COVID-19. This EUA will remain in effect for the duration of the COVID-19 declaration justifying emergency of IVDs, unless it is terminated or revoked by the FDA (after which the test may no longer be used).Performed By: #### BASIA MCCANN, CMP #### [facility] [address] [place] [address] Dr. Neisha AraizaDRUG SCREEN RAPID (URINE)on [id number] [facility] SouthComment on above:Performed By: #### ACETON #### [facility] [address] [place] [address] Dr. Neisha AraizaBARNegativeNormalNEGATIVEPremier Health [facility] SouthComment on above: Performed By: #### ACETON #### [facility] [address] [place] [address] Dr. Neisha PachecoPNegativeNormalNEGATIVEPremier Health [facility] SouthComment on above: Performed By: #### ACETON #### [facility] [address] [place] [address] Dr. Neisha FriedmanZONegativeNormalNEGATIVEPrem[facility] Health [facility] SouthComment on above: Performed By: #### ACETON #### [facility] [address] [place] [address] Dr. Neisha AraiazCOCNegativeNormalNEGATIVEPremier Health [facility] SouthComment on above: Performed By: #### ACETON #### [facility] [address] [place] [address] Dr. Neisha MasonMadison HealthComment on above: Result Comment: AMP (Amphetamine): 500ng/mL, BAR (Barbituates): 200 ng/mL, BZO (Benzodiazepines): 150 ng/mL, BUP (Buprenorphine): 10 ng/mL, VIVEK (Cocaine): 150 ng/mL, mAMP (Methamphetamine): 500 ng/mL, MTD (Methadone): 200 ng/mL, OPI (Opiates): 100 ng/mL, OXY (Oxycodone): 100 ng/mL, PCP (Phencyclidine): 25 ng/mL, PPX (Propoxyphene): 300 ng/mL, THC (Cannabinoids): 50 ng/mL, TCA (Trycyclic Antidepressants): 300 ng/mLPerformed By: #### ACETON #### [facility] [address] [place] [address] Dr. Neisha AraizaDRUG CUT HEADERDRUG CLASS TEST SYSTEM CUT-OFF CONCENTRATIONS ARE FOLLOWS:NormalThe [facility] HospitalComment on above:Performed By: #### ACETON #### [facility] [address] [place] [address] Dr. Neisha AraizamAMPNegativeNormalNEGATIVEPremier Health [facility] Hospital SouthComment on above: Performed By: #### ACETON #### [facility] [address] [place] [address] Dr. Neisha AraizaMTDNegativeNormalNEGATIVEOhioHealth O'Bleness Hospitalment on above: Performed By: #### ACETON #### [facility] [address] [address] [address] Neisha rAaizaOPINegativeNormalNEGATIVEPremier Health [facility] Hospital SouthComcorewell health [facility] hospital on above: Performed By: #### ACETON #### [facility] [address] [address] [address] Neisha AraizaOXYNegativeNormalNEGATIVEPrem[facility] Health [facility] SouthComcorewell health [facility] hospital on above: Performed By: #### ACETON #### [facility] [address] [address] [address] Neisha AraizaPCPNegativeNormalNEGATIVEPrem[facility] Health [facility] SouthComcorewell health [facility] hospital on above: Performed By: #### ACETON #### [facility] [address] [place] [address] Dr. Neisha AraizaPPXNegativeNormalNEGATIVEPrem[facility] Health [facility] SouthComcorewell health [facility] hospital on above: Performed By: #### ACETON #### [facility] [address] [place] [address] Dr. Neisha AraizaTCANegativeNormalNEGATIVEPrem[facility] Health [facility] SouthComcorewell health [facility] hospital on above: Performed By: #### ACETON #### [facility] [address] [place] [address] Dr. Neisha AraizaTHCNegativeNormalNEGATIVEKindred Hospital [facility] on above: Performed By: #### ACETON #### [facility] [address] [place] [address] Dr. Neisha Hancock URINE PROFILEon 14-07-2503Sipsuombv Ql (U)NegativeNormal NEGATIVEPremier Health [facility] Hospital SouthComcorewell health butterworth hospital on above:Performed By: #### ERUR DRUGRPD #### [facility] [address] [place] [address] Dr. Neisha Lopez (U)CLEARNormalCLEARPremier Health [facility] Hospital SouthComcorewell health [facility] hospital on above: Performed By: #### ERUR, DRUGRPD #### [facility] [address] [place] [address] Dr. Neisha Lin (U)YELLOWNormalYELLOWPremier Health [facility] SouthComment on above: Performed By: #### ERUR, DRUGRPD #### [facility] [address] [address] [address] Neisha Evans micrscopic examination will be performed if indicated. NormalPremier Health [facility] Hospital SouthComment on above:Performed By: #### ERUR, DRUGRPD #### [facility] [address] [address] [address] Neisha AraizaGlucose Ql (U)250 mg/dlAbnormalNEGATIVEPrem[facility] Health [facility] Comment on above:Performed By: #### ERUR, DRUGRPD #### [facility] [address] [place] [address] Dr. Neisha AraizaHemoglobin Ql (U)NegativeNormalNEGSt. John of God Hospital Comment on above:Performed By: #### ERUR, DRUGRPD #### [facility] [address] [place] [address] Dr. Neisha AraizaKetones Ql (U)15 mg/dlAbnormalNEGSt. John of God Hospital Comment on above:Performed By: #### ERUR, DRUGRPD #### [facility] [address] [address] [address] Neisha AraizaLEUKOCYTESNegativeNormalNEGSt. John of God HospitalComment on above:Performed By: #### ERUR, DRUGRPD #### [facility] [address] [place] [address] Dr. Neisha AraizaNitrite Ql (U)NegativeNormalNEGATIVEPremier Health Miami Valley Hospital SouthComment on above:Performed By: #### ERUR, DRUGRPD #### [facility] [address] [address] [address] Neisha AraizapH (U)6.0 [pH]Normal5-9[facility] SouthComment on above: Performed By: #### ERUR, DRUGRPD #### [facility] [address] [place] [address] Dr. Neisha AraizaSPEC GRAVITY1.100Goeknn1.005-<=1.025The [facility] HospitalComment on above:Performed By: #### ERUR, DRUGRPD #### [facility] [address] [place] [address] Dr. Neisha Waller PROTEINNegativeNormalNEGATIVE/ TRACEThe [facility] Comment on above:Performed By: #### URSULA DRUGRPD #### [facility] [address] [place] [address] Dr. Neisha Cox MICRO INDNOT INDICATEDCommunity Regional Medical CenterComment on above:Performed By: #### URSULA DRUGRPD #### [facility] [address] [place] [address] Dr. Neisha Hannonbilinogen Qn (U)0.2 {Ankit'U}/dLNormal0.2 - 1.0The [facility] HospitalComment on above:Performed By: #### URSULA DRUGRPD #### [facility] [address] [place] [address] Dr. Neisha Bloom PYLORI ANTIBODY IGGon 12-10-2021H. PYLORI IGG ABS0.29 Index ValueNormal0.00-0.79The [facility] HospitalComcorewell health [facility] on above:Result Comment: Negative <0.80 Equivocal 0.80 - 0.89 Positive >0.89Performed By: #### CBC #### [facility] [address] [place] [address] Dr. Neisha StacyNZA A AND B AGon [id number] [facility] CenterComment on above:Result Comment: Negative for Flu A protein angiten. Infection due to Flu A cannot be ruled out. FluA angiten in the sample may be below the detection limit of the test.Performed By: #### CBC #### [facility] [address] [place] [address] Dr. Neisha AraizaINFLUBNEGHSEE [facility] Medical CenterComment on above: Result Comment: Negative for Flu B protein antigen. Infection due to Flu B cannot be ruled out. FluB antigen in the sample may be below the detection limit of the test.Performed By: #### CBC #### [facility] [address] [place], [place] [id number] Dr. Neisha Olvera AGNegativeNormalNEGATIVE SEE COMMENTThe [facility] on above:Performed By: #### CBC #### [facility] [address] [address] [address] Neisha Marsh AGNegativeNormalNEGATIVE SEE COMMENTThe [facility] on above:Performed By: #### CBC #### [facility] [address] [address] [address] Neisha AraizaINTERNAL CONTROLSWithin Normal LimitsNormalWithin Normal Limits The [facility] on above:Performed By: #### CBC #### [facility] [address] [place] [address] Dr. Neisha LawCTATE/LACTIC ACIDon [id number] [Moles/Vol]0.9 mmol/L Normal0.4-1.9The [facility] on above:Performed By: #### CBC #### [facility] [address] [place] [address] Dr. Neisha AraizaLactate [Moles/Vol]0.8 mmol/LNormal0.4-1.9The [facility] Comment on above:Performed By: #### CBC #### [facility] [address] [place] [address] Dr. Neisha AraizaLIPASEon 76-28-1377Gtncul [Catalytic activity/Vol]146.0 U/LNormal 73.0-393.0The [facility]ament on above:Performed By: #### LIPA, BASIA, CMP #### [facility] [address] [address] [address] Neisha AraizaPOINT OF CARE GLUCOSEon [id number] [Mass/Vol]222 mg/dL Critically boyi09-499Wup [facility] on above:Performed By: #### CBC #### [facility] [address] [place] [address] Dr. Neisha HernandezG HCG QUALon [id number], QUALNegativeNormalNEGATIVE The [facility] HospitalComment on above:Performed By: #### BASIA MCCANN, CMP #### [facility] [address] [address] [address] Neisha Malik 14(COMP METB)on [id number] [Mass/Vol]3.7 g/dLNormal 3.4-5.0The [facility] HospitalComment on above:Performed By: #### LIPWade BASIA, CMP #### [facility] [address] [address] [address] Neisha AraizaAlbumin/Globulin [Mass ratio]0.9 {ratio}NormalThe [facility] HospitalComment on above:Performed By: #### BASIA MCCANN, CMP #### [facility] [address] [place] [address] Dr. Neisha Pettit [Catalytic activity/Vol]118 U/LCritically zjot25-154Sxa [facility] on above:Performed By: #### BASIA MCCANN, CMP #### [facility] [address] [place] [address] Dr. Neisha Seay [Catalytic activity/Vol]36 U/KAzpjua87-27Nna [facility] HospitalComment on above:Performed By: #### RAMY BASIA, CMP #### [facility] [address] [place] [address] Dr. Neisha Montalvo gap [Moles/Vol]17.8 mmol/LNormalThe [facility] Comment on above:Performed By: #### RAMY BASIA, CMP #### [facility] [address] [place] [address] Dr. Neisha AraizaAST [Catalytic activity/Vol]22 U/ARmqwbt81-95Jvo [facility] on above:Performed By: #### LIPA, BASIA, CMP #### [facility] [address] [place] [address] Dr. Neisha AraizaBilirubin [Mass/Vol]0.9 mg/dLNormal0.2-1.0The [facility] Comment on above:Performed By: #### RAMY BASIA, CMP #### [facility] [address] [address] [address] Neisha AraizaCalcium [Mass/Vol]8.8 mg/dLNormal8.5-10.1The [facility] Comment on above:Performed By: #### BASIA MCCANN, CMP #### [facility] [address] [address] [address] Neisha AraizaChloride [Moles/Vol]99 mmol/EEsklbh94-961Zmy [facility] Comment on above:Performed By: #### BASIA MCCANN, CMP #### [facility] [address] [address] [address] Neisha AraizaCO2 [Moles/Vol]19.6 mmol/LCritically low21.0-32.0The [facility] HospitalComment on above:Performed By: #### BASIA MCCANN, CMP #### [facility] [address] [address] [address] Neisha AraizaCreatinine [Mass/Vol]0.52 mg/dLCritically low0.55-1.02The [facility] HospitalComment on above:Performed By: #### BASIA MCCANN, CMP #### [facility] [address] [address] [address] Neisha PaigeGFR-AF COOK ISLANDER>60Normal>=60The [facility] HospitalComment on above:Performed By: #### BASIA MCCANN, CMP #### [facility] [address] [address] [address] Neisha PaigeGFR-NON AF COOK ISLANDER>60Normal>=60The [facility] HospitalComment on above:Performed By: #### BASIA MCCANN, CMP #### [facility] [address] [address] [address] Neisha AraizaGlobulin (S) [Mass/Vol]4.2 g/dLNormalThe [facility] HospitalComment on above:Performed By: #### LIPWade BASIA, CMP #### [facility] [address] [address] [address] Neisha AraizaGlucose [Mass/Vol]172 mg/dLCritically adqi19-757Ylf [facility] HospitalComment on above:Performed By: #### BASIA MCCANN, CMP #### [facility] [address] [place] [address] Dr. Neisha AraizaPotassium [Moles/Vol]3.4 mmol/LCritically low3.5-5.1The [facility] HospitalComment on above:Performed By: #### BASIA MCCANN, CMP #### [facility] [address] [place] [address] Dr. Neisha AraizaProtein [Mass/Vol]7.9 g/dLNormal6.4-8.2The [facility] Comment on above:Performed By: #### BASIA MCCANN, CMP #### [facility] [address] [place] [address] Dr. Neisha AraizaSodium [Moles/Vol]133 mmol/LCritically yhe944-764Eai [facility] HospitalComment on above:Performed By: #### BASIA MCCANN, CMP #### [facility] [address] [place] [address] Dr. Neisha AraizaUrea nitrogen [Mass/Vol]11.0 mg/dLNormal7.0-18.0The [facility] HospitalComment on above:Performed By: #### BASIA MCCANN, CMP #### [facility] [address] [place] [address] Dr. Nesiha AraizaUrea nitrogen/Creatinine [Mass ratio]21.2 mg/mgNoRegency Hospital CompanyComment on above:Performed By: #### BASIA MCCANN, CMP #### [facility] [address] [place] [address] Dr. Neisha Vora [id number] uIU/mLNormal0.358-3.740[facility] SouthComment on above:Performed By: #### BASIA MCCANN, CMP #### [facility] [address] [place] [address] Dr. Neisha Barron RANGESEE BELOWNoRegency Hospital CompanyComment on above: Result Comment: <0.34 UIU/ml HYPERTHYROID 0.34-5.60 UIU/ml EUTHYROID >5.60 UIU/ml HYPOTHYROIDPerformed By: #### BASIA MCCANN, CMP #### [facility] [address] [place] [address] Dr. Neisha Price AUTO DIFFon 04-26-3200AIYN #0.0 103/ulNormal0.0-0.1The [facility] HospitalComment on above:Performed By: #### LIPWade BASIA, CMP #### [facility] [address] [place] [address] Dr. Neisha AraizaBasophils/100 WBC (Bld)0.4 %Normal0.2-2.0[facility] Comment on above:Performed By: #### BASIA MCCANN, CMP #### [facility] [address] [place] [address] Dr. Neisha Mcconnell #0.0 103/ulNormal0.0-0.7The [facility] HospitalComment on above: Performed By: #### RAMY BASIA, CMP #### [facility] [address] [place] [address] Dr. Neisha Paigeosinophils/100 WBC (Bld)0.1 %Critically low0.9-7.0The [facility] HospitalComment on above:Performed By: #### BASIA MCCANN, CMP #### [facility] [address] [place] [address] Dr. Neisha Paigerythrocyte distribution width (RBC) [Ratio]12.8 %Mgztxz53.0-15.0 The [facility] HospitalComment on above:Performed By: #### RAMY BASIA, CMP #### [facility] [address] [place] [address] Dr. Neisha AraizaHematocrit (Bld) [Volume fraction]41.1 %Bmekkp47.0-48.0The [facility] HospitalComment on above:Performed By: #### LIPBASIA Olvera, CMP #### [facility] [address] [place] [address] Dr. Neisha AraizaHemoglobin (Bld) [Mass/Vol]13.8 g/wSDypoag93.0-16.0The [facility] HospitalComment on above:Performed By: #### BASIA MCCANN, CMP #### [facility] [address] [place] [address] Dr. Neisha Gould #0.05 10e3/ulCritically high0.00-0.03The [facility] Comment on above:Performed By: #### BASIA MCCANN, CMP #### [facility] [address] [place] [address] Dr. Neisha Gould %0.5 %Normal0.0-0.5The [facility] HospitalComment on above: Performed By: #### BASIA MCCANN, CMP #### [facility] [address] [place] [address] Dr. Neisha Sánchez #2.1 103/ulNormal1.2-3.8The [facility] HospitalComment on above:Performed By: #### BASIA MCCANN, CMP #### [facility] [address] [place] [address] Dr. Neisha Davishocytes/100 WBC (Bld)22.8 %Mjbxip26.5-60.0The [facility] HospitalComment on above:Performed By: #### BASIA MCCANN, CMP #### [facility] [address] [place] [address] Dr. Neisha MelgarUAL DIFF REQNONormalThe [facility] HospitalComment on above: Performed By: #### BASIA MCCANN, CMP #### [facility] [address] [place] [address] Dr. Neisha Torres (RBC) [Entitic mass]28.3 udYfbeek96.7-34.0The [facility] HospitalComment on above:Performed By: #### BASIA MCCANN, CMP #### [facility] [address] [place] [address] Dr. Neisha Campa (RBC) [Mass/Vol]33.6 g/eLMolcoq19.9-35.2The [facility] HospitalComment on above:Performed By: #### BASIA MCCANN, CMP #### [facility] [address] [place] [address] Dr. Neisha CampaV (RBC) [Entitic vol]84.4 dDEqtkfh75.0-99.0The [facility] HospitalComment on above:Performed By: #### BASIA MCCANN, CMP #### [facility] [address] [place] [address] Dr. Neisha Evans #0.6 103/ulNormal0.3-0.8The [facility] HospitalComment on above:Performed By: #### RAMY BASIA, CMP #### [facility] [address] [place] [address] Dr. Neisha Plasenciaocytes/100 WBC (Bld)6.0 %Normal1.7-12.0The [facility] Comment on above:Performed By: #### BASIA MCCANN, CMP #### [facility] [address] [place] [address] Dr. Neisha Santos #6.4 103/ulNormal1.4-6.5The [facility] HospitalComment on above:Performed By: #### BASIA MCCANN, CMP #### [facility] [address] [place] [address] Dr. Neisha rFeitasophils/100 WBC (Bld)70.2 %Ejlphl02.0-75.0The [facility] HospitalComment on above:Performed By: #### BASIA MCCANN, CMP #### [facility] [address] [place] [address] Dr. Neisha Meilet mean volume (Bld) [Entitic vol]9.8 fLNormal9.5-13.5The [facility] HospitalComment on above:Performed By: #### RAMY BASIA, CMP #### [facility] [address] [place] [address] Dr. Neisha GreenT258 103/sfLkevvh491-084Fns [facility] HospitalComment on above: Performed By: #### LIPA BASIA, CMP #### [facility] [address] [place], [place] [address] Dr. Neisha AraizaRBC4.87 106/ulNormal4.20-5.40The [facility] on above:Performed By: #### BASIA MCCANN, CMP #### [facility] [address] [place] [address] Dr. Neisha AraizaWBC9.1 103/ulNormal4.0-11.0The [facility] on above: Performed By: #### BASIA MCCANN, CMP #### [facility] [address] [place] [address] Dr. Neisha AraizaPOINT OF CARE GLUCOSEon 30-39-0611Ihemkqe [Mass/Vol]222 mg/dL Critically qpfd29-648Wqv [facility] on above:Performed By: #### CBC #### [facility] [address] [place] [address] Dr. Neisha AraizaGlucose [Mass/Vol]225 mg/dLCritically aqtu07-231Eav [facility] on above:Performed By: #### CBC #### [facility] [address] [place] [address] Dr. Neisha AraizaPROF 14(COMP METB)on 99-54-5615Vmpjxey [Mass/Vol]3.1 g/dL Critically low3.4-5.0The [facility] on above:Performed By: #### CBC #### [facility] [address] [place] [address] Dr. Neisha AraizaAlbumin/Globulin [Mass ratio]0.9 {ratio}NormalThe [facility] on above:Performed By: #### CBC #### [facility] [address] [place] [address] Dr. Neisha Pettit [Catalytic activity/Vol]99 U/XPwbjha37-862Yku [facility] on above:Performed By: #### CBC #### [facility] [address] [place] [address] Dr. Neisha Seay [Catalytic activity/Vol]28 U/HMxciqz26-91Sbf [facility] on above:Performed By: #### CBC #### [facility] [address] [address] [address] Neisha Montalvo gap [Moles/Vol]15.0 mmol/LNormalThe [facility] Comment on above:Performed By: #### CBC #### [facility] [address] [address] [address] Neisha AraizaAST [Catalytic activity/Vol]12 U/LCritically uyh32-47Cal [facility] HospitalComment on above:Performed By: #### CBC #### [facility] [address] [address] [address] Neisha AraizaBilirubin [Mass/Vol]1.3 mg/dLCritically high0.2-1.0The [facility] HospitalComment on above:Performed By: #### CBC #### [facility] [address] [address] [address] Neisha AraizaCalcium [Mass/Vol]7.5 mg/dLCritically low8.5-10.1The [facility] HospitalComment on above:Performed By: #### CBC #### [facility] [address] [address] [address] Neisha AraizaChloride [Moles/Vol]101 mmol/LTsvuyj20-817Pne [facility] Comment on above:Performed By: #### CBC #### [facility] [address] [address] [address] Neisha AraizaCO2 [Moles/Vol]14.9 mmol/LCritically low21.0-32.0The [facility] HospitalComment on above:Performed By: #### CBC #### [facility] [address] [address] [address] Neisha AraizaCreatinine [Mass/Vol]0.52 mg/dLCritically low0.55-1.02The [facility] HospitalComment on above:Performed By: #### CBC #### [facility] [address] [address] [address] Driver ChangEGFR-AF COOK ISLANDER>60Normal>=60The [facility] HospitalComment on above:Performed By: #### CBC #### [facility] [address] [address] [address] Neisha PaigeGFR-NON AF COOK ISLANDER>60Normal>=60The [facility] HospitalComment on above:Performed By: #### CBC #### [facility] [address] [address] [address] Neisha AraizaGlobulin (S) [Mass/Vol]3.6 g/dLNormalThProvidence HospitalComment on above:Performed By: #### CBC #### [facility] [address] [address] [address] Neisha AraizaGlucose [Mass/Vol]232 mg/dLCritically jrej78-830Qoa [facility] HospitalComment on above:Performed By: #### CBC #### [facility] [address] [address] [address] Neisha AraizaPotassium [Moles/Vol]3.9 mmol/LNormal3.5-5.1The [facility] Comment on above:Performed By: #### CBC #### [facility] [address] [address] [address] Neisha AraizaProtein [Mass/Vol]6.7 g/dLNormal6.4-8.2The [facility] Comment on above:Performed By: #### CBC #### [facility] [address] [address] [address] Neisha AraizaSodium [Moles/Vol]127 mmol/LCritically umw172-549Ptm [facility] HospitalComment on above:Performed By: #### CBC #### [facility] [address] [address] [address] Neisha AraizaUrea nitrogen [Mass/Vol]9.0 mg/dLNormal7.0-18.0The [facility] HospitalComment on above:Performed By: #### CBC #### [facility] [address] [address] [address] Neisha Monterroso nitrogen/Creatinine [Mass ratio]17.3 mg/mgNormalThe [facility] HospitalComment on above:Performed By: #### CBC #### [facility] [address] [address] [address] Neisha Waller RANDOM W/MICROSCOPICon 86-49-7112LXLFHJIBUEJV SEENNormalNONE SEENPremier Health [facility] Hospital SouthComment on above:Performed By: #### UAMIC #### [facility] [address] [address] [address] Neisha AraizaBilirubin Ql (U)NegativeNormalNEGSt. John of God Hospital Comment on above:Performed By: #### UAMIC #### [facility] [address] [address] [address] Neisha AraizaCASTNONE SEENNormalNONE SEENPremier Health [facility] Hospital SouthComment on above:Performed By: #### UAMIC #### [facility] [address] [address] [address] Neisha AraizaClarity (U)CLEARNormalCLEARPremier Health [facility] Hospital SouthComment on above: Performed By: #### UAMIC #### [facility] [address] [address] [address] Neisha Clarkelor (U)LT. YELLOWNormalYGenesis HospitalComment on above:Performed By: #### UAMIC #### [facility] [address] [address] [address] Neisha AraizaCrystals LM Nom (Urine sed)NONE SEENNormalNONE SEENPremier Health [facility] SouthComment on above:Performed By: #### UAMIC #### [facility] [address] [address] [address] Driver ChangEpithelial cells LM Ql (Urine sed)FEWAbnormalNONE SEEN /RAREPrem[facility] Health [facility] SouthComment on above:Performed By: #### UAMIC #### [facility] [address] [address] [address] Neisha AraizaGlucose Ql (U)500 mg/dlAbnokindred hospital - greensboroNEGSt. John of [facility] Hospital Comment on above:Performed By: #### UAMIC #### [facility] [address] [address] [address] Neisha AraizaHemoglobin Ql (U)NegativeNormalNEGSt. John of God Hospital Comment on above:Performed By: #### UAMIC #### [facility] [address] [address] [address] Neisha Larson Ql (U)80 mg/dlAbnormalNEGATIVEPrem[facility] Comment on above:Performed By: #### UAMIC #### [facility] [address] [place] [address] Dr. Neisha AraizaLEUKOCYTESNegativeNormalNEGATIVEThe [facility] HospitalComment on above:Performed By: #### UAMIC #### [facility] [address] [place] [address] Dr. Neisha GaleanaCOUSNONTiffany SEENNormalNONE SEENPremier Health [facility] Hospital SouthComment on above:Performed By: #### UAMIC #### [facility] [address] [place] [address] Dr. Neisha Browntrmarina Ql (U)NegativeNormalNEGATIVEThe [facility] HospitalComment on above:Performed By: #### UAMIC #### [facility] [address] [place] [address] Dr. Neisha AraizapH (U)6.0 [pH]Normal5-9The [facility] HospitalComment on above: Performed By: #### UAMIC #### [facility] [address] [place] [address] Dr. Neisha AraizaRBCNJESSENIA SEENAbnormal0-2The [facility] HospitalComment on above: Performed By: #### UAMIC #### [facility] [address] [place] [address] Dr. Neisha AraizaSPEC GRAVITY1.677Hdvekhjj8.005-<=1.025The [facility] Comment on above:Performed By: #### UAMIC #### [facility] [address] [place] [address] Dr. Neisha Waller PROTEINTRACENormalNEGATIVE/ TRACEThe [facility] HospitalComment on above:Performed By: #### UAMIC #### [facility] [address] [place] [address] Dr. Neisha Hannonbilinogen Qn (U)0.2 {Ankit'U}/dLNormal0.2 - 1.0The [facility] on above:Performed By: #### UAMIC #### [facility] [address] [place] [address] Dr. Neisha AraizaWBC0-2AbnormalNONE SEENThe [facility] HospitalComment on above: Performed By: #### UAMIC #### [facility] [address] [place] [address] Dr. Neisha AraizaAMYLASEon [id number] [Catalytic activity/Vol]31 U/LNormal 25-115The [facility] on above:Performed By: #### BASIA MCCANN, CMP #### [facility] [address] [place] [address] Dr. Neisha Price AUTO DIFFon [id number] #0.0 103/ulNormal0.0-0.1The [facility] on above:Performed By: #### CBC #### [facility] [address] [place] [address] Dr. Neisha AraizaBasophils/100 WBC (Bld)0.4 %Normal0.2-2.0[facility] on above:Performed By: #### CBC #### [facility] [address] [place] [address] Dr. Neisha Mcconnell #0.0 103/ulNormal0.0-0.7The [facility] on above: Performed By: #### CBC #### [facility] [address] [place] [address] Dr. Neisha Paigeosinophils/100 WBC (Bld)0.0 %Critically low0.9-7.0The [facility] on above:Performed By: #### CBC #### [facility] [address] [place] [address] Dr. Neisha Paigerythrocyte distribution width (RBC) [Ratio]12.9 %Cfgfef34.0-15.0 The [facility] on above:Performed By: #### CBC #### [facility] [address] [address] [address] Neisha AraizaHematocrit (Bld) [Volume fraction]43.8 %Gldwzq23.0-48.0The [facility] on above:Performed By: #### CBC #### [facility] [address] [address] [address] Neisha AraizaHemoglobin (Bld) [Mass/Vol]14.7 g/zHUljqxb91.0-16.0The [facility]:Performed By: #### CBC #### [facility] [address] [place] [address] Dr. Neisha Gould #0.06 10e3/ulCritically high0.00-0.03The [facility] Comment on above:Performed By: #### CBC #### [facility] [address] [place] [address] Dr. Neisha Gould %0.6 %Critically high0.0-0.5The [facility] above:Performed By: #### CBC #### [facility] [address] [place] [address] Dr. Neisha Sánchez #1.4 103/ulNormal1.2-3.8The [facility] on above:Performed By: #### CBC #### [facility] [address] [place] [address] Dr. Neisha Davishocytes/100 WBC (Bld)12.7 %Critically low20.5-60.0The [facility] on above:Performed By: #### CBC #### [facility] [address] [place] [address] Dr. Neisha MelgarUAL DIFF REQNONormalThe [facility]Comment on above: Performed By: #### CBC #### [facility] [address] [place] [address] Dr. Neisha Torres (RBC) [Entitic mass]28.2 icHorjed16.7-34.0The [facility]:Performed By: #### CBC #### [facility] [address] [address] [address] Neisha CampaHC (RBC) [Mass/Vol]33.6 g/mYVcvsfp29.9-35.2The [facility] on above:Performed By: #### CBC #### [facility] [address] [address] [address] Neisha CampaV (RBC) [Entitic vol]84.1 hSYxjnvl35.0-99.0The [facility] above:Performed By: #### CBC #### [facility] [address] [place] [address] Dr. Neisha Evans #0.5 103/ulNormal0.3-0.8The [facility] on above:Performed By: #### CBC #### [facility] [address] [place] [address] Dr. Neisha Plasenciaocytes/100 WBC (Bld)4.7 %Normal1.7-12.0[facility] Comment on above:Performed By: #### CBC #### [facility] [address] [place] [address] Dr. Neisha Santos #8.8 103/ulCritically high1.4-6.5The [facility] Comment on above:Performed By: #### CBC #### [facility] [address] [address] [address] Neisha Samuelutrophils/100 WBC (Bld)81.6 %Critically high43.0-75.0The [facility] on above:Performed By: #### CBC #### [facility] [address] [address] [address] Neisha Meilet mean volume (Bld) [Entitic vol]10.0 fLNormal9.5-13.5The [facility] on above:Performed By: #### CBC #### [facility] [address] [address] [address] Neisha AraizaPLT293 103/jpNtkwde355-441Xxi [facility] on above: Performed By: #### CBC #### [facility] [address] [address] [address] Neisha AraizaRBC5.21 106/ulNormal4.20-5.40The [facility] on above:Performed By: #### CBC #### [facility] [address] [place] [address] Dr. Neisha AraizaWBC10.7 103/ulNormal4.0-11.0The [facility] on above:Performed By: #### CBC #### [facility] [address] [place] [address] Dr. Neisha AraizaCokush-19 PCR ([facility])on [id number]-CoV-2 (COVID-19) RNA TIM+probe Ql (Unsp spec)Not detectedNormalNOT DETECTED[facility] Comment on above:Result Comment: When diagnostic testing is negative, the [...] for this test is supported by the [employer] of Health and Human Service's declaration that circumstances exist to justify the emergency use of in vitro diagnostics for the detection and/or diagnosis of the virus that causes COVID-19. This EUA will remain in effect for the duration of the COVID-19 declaration justifying emergency of IVDs, unless it is terminated or revoked by the FDA (after which the test may no longer be used).Performed By: #### CBC #### [facility] [address] [place] [address] Dr. Neisha AraizaLACTATE/LACTIC ACIDon [id number] [Moles/Vol]1.5 mmol/L Normal0.4-1.9The [facility] on above:Performed By: #### CBC #### [facility] [address] [address] [address] Neisha AraizaLIPASEon [id number] [Catalytic activity/Vol]149.0 U/LNormal 73.0-393.0The [facility] on above:Performed By: #### BASIA MCCANN, CMP #### [facility] [address] [address] [address] Neisha AraizaPOINT OF CARE GLUCOSEon [id number] [Mass/Vol]282 mg/dL Critically glvo65-743Jqy [facility] on above:Performed By: #### ACETON #### [facility] [address] [place] [address] Dr. Neisha AraizaPROHilda 14(COMP METB)on [id number] [Mass/Vol]3.6 g/dLNormal 3.4-5.0The [facility] on above:Performed By: #### BASIA MCCANN, CMP #### [facility] [address] [place] [address] Dr. Neisha AraizaAlbumin/Globulin [Mass ratio]0.9 {ratio}NormalThe [facility] HospitalComment on above:Performed By: #### BASIA MCCANN, CMP #### [facility] [address] [place] [address] Dr. Neisha Pettit [Catalytic activity/Vol]105 U/GUpxrwe29-321Pxh [facility] HospitalComment on above:Performed By: #### LIPWade BASIA, CMP #### [facility] [address] [place] [address] Dr. Neisha Seay [Catalytic activity/Vol]32 U/FQzqtyq97-85Mxd [facility] on above:Performed By: #### LIPA BASIA, CMP #### [facility] [address] [place] [address] Dr. Neisha Montalvo gap [Moles/Vol]23.2 mmol/LNormalThe [facility] Comment on above:Performed By: #### LIPA BASIA, CMP #### [facility] [address] [address] [address] Neisha AraizaAST [Catalytic activity/Vol]15 U/VAnguaj62-27Rxp [facility] on above:Performed By: #### BASIA MCCANN, CMP #### [facility] [address] [place] [address] Dr. Neisha AraizaBilirubin [Mass/Vol]1.3 mg/dLCritically high0.2-1.0The [facility] HospitalComcore[facility] on above:Performed By: #### RAMY BASIA, CMP #### [facility] [address] [place] [address] Dr. Neisha AraizaCalcium [Mass/Vol]8.0 mg/dLCritically low8.5-10.1The [facility] on above:Performed By: #### BASIA MCCANN, CMP #### [facility] [address] [place] [address] Dr. Neisha AraizaChloride [Moles/Vol]96 mmol/LCritically wck20-715Edo [facility] on above:Performed By: #### BASIA MCCANN, CMP #### [facility] [address] [place] [address] Dr. Neisha AraizaCO2 [Moles/Vol]14.8 mmol/LCritically low21.0-32.0The [facility] on above:Performed By: #### BASIA MCCANN, CMP #### [facility] [address] [place] [address] Dr. Neisha AraizaCreatinine [Mass/Vol]0.62 mg/dLNormal0.55-1.02The [facility] on above:Performed By: #### LIPWade BASIA, CMP #### [facility] [address] [place] [address] Dr. Neisha PaigeGFR-AF COOK ISLANDER>60Normal>=60The [facility] on above:Performed By: #### LIPBASIA Olvera, CMP #### [facility] [address] [place] [address] Dr. Neisha PaigeGFR-NON AF COOK ISLANDER>60Normal>=60The [facility]Comment on above:Performed By: #### BASIA MCCANN, CMP #### [facility] [address] [address] [address] Neisha AraizaGlobulin (S) [Mass/Vol]4.2 g/dLNormOhioHealth Grove City Methodist HospitalComment on above:Performed By: #### BASIA MCCANN, CMP #### [facility] [address] [place] [address] Dr. Neisha AraizaGlucose [Mass/Vol]285 mg/dLCritically ycou43-123Nqb [facility]Comment on above:Performed By: #### BASIA MCCANN, CMP #### [facility] [address] [place] [address] Dr. Neisha AraizaPotassium [Moles/Vol]4.0 mmol/LNormal3.5-5.1The [facility] Comment on above:Performed By: #### BASIA MCCANN, CMP #### [facility] [address] [place] [address] Dr. Neisha AraizaProtein [Mass/Vol]7.8 g/dLNormal6.4-8.2The [facility] Comment on above:Performed By: #### BASIA MCCANN, CMP #### [facility] [address] [place] [address] Dr. Neisha AraizaSodium [Moles/Vol]130 mmol/LCritically hfn113-844Mcf [facility] HospitalComment on above:Performed By: #### BASIA MCCANN, CMP #### [facility] [address] [place] [address] Dr. Neisha AraizaUrea nitrogen [Mass/Vol]12.0 mg/dLNormal7.0-18.0The [facility] HospitalComment on above:Performed By: #### BASIA MCCANN, CMP #### [facility] [address] [place] [address] Dr. Neisha Monterroso nitrogen/Creatinine [Mass ratio]19.4 mg/mgNoRegency Hospital CompanyComment on above:Performed By: #### BASIA MCCANN, CMP #### [facility] [address] [address] [address] Neisha AraizaAMYLASEon [id number] [Catalytic activity/Vol]20 U/L Critically tge14-219Anp [facility] HospitalComment on above:Performed By: #### ACETON #### [facility] [address] [place] [address] Dr. Neisha AraizaBILIRUBIN CONJUGATED (DIRECT)on [id number], CONJUGATED0.2 mg/dLNormal0.0-0.2The [facility] HospitalComment on above:Performed By: #### CBC #### [facility] [address] [place] [address] Dr. Neisha AraizaCBC AUTO DIFFon [id number] #0.0 103/ulNormal0.0-0.1The [facility] HospitalComment on above:Performed By: #### BASIA MCCANN, CMP #### [facility] [address] [place] [address] Dr. Neisha AraizaBasophils/100 WBC (Bld)0.3 %Normal0.2-2.0The [facility] Comment on above:Performed By: #### BASIA MCCANN, CMP #### [facility] [address] [place] [address] Dr. Neisha Mcconnell #0.0 103/ulNormal0.0-0.7The [facility] on above: Performed By: #### BASIA MCCANN, CMP #### [facility] [address] [address] [address] Neisha Paigeosinophils/100 WBC (Bld)0.0 %Critically low0.9-7.0The [facility] HospitalComment on above:Performed By: #### BASIA MCCANN, CMP #### [facility] [address] [place] [address] Dr. Neisha Paigerythrocyte distribution width (RBC) [Ratio]12.7 %Sbflrs81.0-15.0 The [facility] HospitalComment on above:Performed By: #### BASIA MCCANN, CMP #### [facility] [address] [place] [address] Dr. Neisha AraizaHematocrit (Bld) [Volume fraction]44.9 %Bhhlxe30.0-48.0The [facility] HospitalComment on above:Performed By: #### LIPWade BASIA, CMP #### [facility] [address] [place] [address] Dr. Neisha AraizaHemoglobin (Bld) [Mass/Vol]15.4 g/oKUjrcbx84.0-16.0The [facility]Comment on above:Performed By: #### LIPA BASIA, CMP #### [facility] [address] [place] [address] Dr. Neisha Gould #0.03 10e3/ulNormal0.00-0.03The [facility] HospitalComment on above:Performed By: #### LIPA BASIA, CMP #### [facility] [address] [place] [address] Dr. Neisha Gould %0.3 %Normal0.0-0.5The [facility] HospitalComment on above: Performed By: #### RAMY BASIA, CMP #### [facility] [address] [place] [address] Dr. Neisha Sánchez #1.2 103/ulNormal1.2-3.8The [facility] HospitalComcorewell [facility] on above:Performed By: #### LIPA BASIA, CMP #### [facility] [address] [place] [address] Dr. Neisha Davishocytes/100 WBC (Bld)12.2 %Critically low20.5-60.0The [facility] HospitalComment on above:Performed By: #### LIPA, BASIA, CMP #### [facility] [address] [place] [address] Dr. Neisha MelgarUAL DIFF REQNONormalThe [facility] HospitalComment on above: Performed By: #### LIPA, BASIA, CMP #### [facility] [address] [place] [address] Dr. Neisha Torres (RBC) [Entitic mass]28.3 knIndmru47.7-34.0The [facility] HospitalComment on above:Performed By: #### BASIA MCCANN, CMP #### [facility] [address] [place] [address] Dr. Neisha Campa (RBC) [Mass/Vol]34.3 g/mGFowhrh68.9-35.2The [facility] HospitalComment on above:Performed By: #### LIPWade BASIA, CMP #### [facility] [address] [place] [address] Dr. Neisha Campa (RBC) [Entitic vol]82.5 kRJlaxkp97.0-99.0The [facility] HospitalComment on above:Performed By: #### BASIA MCCANN, CMP #### [facility] [address] [place] [address] Dr. Neisha Evans #0.3 103/ulNormal0.3-0.8The [facility] HospitalComment on above:Performed By: #### BASIA MCCANN, CMP #### [facility] [address] [place] [address] Dr. Neisha Plasenciaocytes/100 WBC (Bld)3.1 %Normal1.7-12.0The [facility] Comment on above:Performed By: #### BASIA MCCANN, CMP #### [facility] [address] [place] [address] Dr. Neisha Santos #8.1 103/ulCritically high1.4-6.5The [facility] Comment on above:Performed By: #### RAMY BASIA, CMP #### [facility] [address] [place] [address] Dr. Neisha Samuelutrophils/100 WBC (Bld)84.1 %Critically high43.0-75.0The [facility] HospitalComment on above:Performed By: #### LIPWade BASIA, CMP #### [facility] [address] [place] [address] Dr. Neisha Bryan mean volume (Bld) [Entitic vol]9.8 fLNormal9.5-13.5The [facility] HospitalComment on above:Performed By: #### BASIA MCCANN, CMP #### [facility] [address] [place] [address] Dr. Neisha AraizaPLT263 103/oaTejtmx503-422Rny [facility] HospitalComment on above: Performed By: #### LIPBASIA Olvera, CMP #### [facility] [address] [place] [address] Dr. Neisha AraizaRBC5.44 106/ulCritically high4.20-5.40The [facility] Comment on above:Performed By: #### BASIA MCCANN, CMP #### [facility] [address] [place] [address] Dr. Neisha AraizaWBC9.6 103/ulNormal4.0-11.0The [facility] HospitalComment on above: Performed By: #### BASIA MCCANN, CMP #### [facility] [address] [place] [address] Dr. Neisha AraizaLIPASEon [id number] [Catalytic activity/Vol]73.0 U/LNormal 73.0-393.0The [facility] HospitalComment on above:Performed By: #### ACETON #### [facility] [address] [place] [address] Dr. Neisha AraizaPROF 14(COMP METB)on [id number] [Mass/Vol]3.8 g/dLNormal 3.4-5.0The [facility] HospitalComment on above:Performed By: #### ACETON #### [facility] [address] [place] [address] Dr. Neisha AraizaAlbumin/Globulin [Mass ratio]0.9 {ratio}NormalThe [facility] HospitalComment on above:Performed By: #### ACETON #### [facility] [address] [place] [address] Dr. Neisha AraizaALP [Catalytic activity/Vol]120 U/LCritically enzn51-861Jfg [facility] HospitalComment on above:Performed By: #### ACETON #### [facility] [address] [address] [address] Neisha Seay [Catalytic activity/Vol]34 U/REscihg33-61Hme [facility] on above:Performed By: #### ACETON #### [facility] [address] [address] [address] Neisha AraizaAnion gap [Moles/Vol]20.0 mmol/LNormalThe [facility] Comment on above:Performed By: #### ACETON #### [facility] [address] [address] [address] Neisha AraizaAST [Catalytic activity/Vol]18 U/YCjvnes56-07Nvn [facility] HospitalComment on above:Performed By: #### ACETON #### [facility] [address] [place] [address] Dr. Neisha AraizaBilirubin [Mass/Vol]1.1 mg/dLCritically high0.2-1.0The [facility] HospitalComment on above:Performed By: #### ACETON #### [facility] [address] [place] [address] Dr. Neisha AraizaCalcium [Mass/Vol]8.5 mg/dLNormal8.5-10.1[facility] Comment on above:Performed By: #### ACETON #### [facility] [address] [place] [address] Dr. Neisha AraizaChloride [Moles/Vol]94 mmol/LCritically iqd51-567Lqp [facility] HospitalComment on above:Performed By: #### ACETON #### [facility] [address] [place] [address] Dr. Neisha AraizaCO2 [Moles/Vol]18.9 mmol/LCritically low21.0-32.0The [facility] on above:Performed By: #### ACETON #### [facility] [address] [place] [address] Dr. Neisha AraizaCreatinine [Mass/Vol]0.59 mg/dLNormal0.55-1.02The [facility] HospitalComment on above:Performed By: #### ACETON #### [facility] [address] [address] [address] Neisha PaigeGFR-AF COOK ISLANDER>60Normal>=60The [facility] HospitalComment on above:Performed By: #### ACETON #### [facility] [address] [address] [address] Neisha PaigeGFR-NON AF COOK ISLANDER>60Normal>=60The [facility]Comment on above:Performed By: #### ACETON #### [facility] [address] [address] [address] Neisha AraizaGlobulin (S) [Mass/Vol]4.1 g/dLNormalThe [facility] HospitalComment on above:Performed By: #### ACETON #### [facility] [address] [address] [address] Neisha AraizaGlucose [Mass/Vol]322 mg/dLCritically qzbe88-346Jhc [facility] HospitalComment on above:Performed By: #### ACETON #### [facility] [address] [address] [address] Neisha AraizaPotassium [Moles/Vol]3.9 mmol/LNormal3.5-5.1The [facility] Comment on above:Performed By: #### ACETON #### [facility] [address] [place] [address] Dr. Neisha AraizaProtein [Mass/Vol]7.9 g/dLNormal6.4-8.2The [facility] Comment on above:Performed By: #### ACETON #### [facility] [address] [address] [address] Neisha AraizaSodium [Moles/Vol]129 mmol/LCritically lxm408-954Ltb [facility] HospitalComment on above:Performed By: #### ACETON #### [facility] [address] [address] [address] Neisha AraizaUrea nitrogen [Mass/Vol]12.0 mg/dLNormal7.0-18.0The [facility] HospitalComment on above:Performed By: #### ACETON #### [facility] [address] [place], [place] [address] Dr. Neisha AraizaUrea nitrogen/Creatinine [Mass ratio]20.3 mg/mgNoRegency Hospital CompanyComment on above:Performed By: #### ACETON #### [facility] [address] [address] [address] Neisha Araiza Vital Signs Date TimeVital SignValuePerforming YkqahnmysXcufefds28-00-0554 10:12-0400Body cltubbxzgqr48.2 [degF]Yixue Marlow DDS Work Phone: [phone] [place], [place] 0775509-23-2025 10:12-0400Diastolic blood omlmqkjf16 mm[Hg]Yixue Marlow DDS Work Phone: [phone])[address] [place], [place] 0775509-23-2025 10:12-0400Heart rate88 /minYixue Marlow DDS Work Phone: [phone])[address] [place], [place] 0775509-23-2025 10:12-0400Systolic blood xajzbvrd723 mm[Hg]Yixue Marlow DDS Work Phone: [phone])[address] [place], [place] 0775508-19-2025 10:25-0400Body slryzxmmxxc90.81 [degF]Yixue Marlow DDS Work Phone: [phone])[address] [place], [place] 0775508-19-2025 10:25-0400Diastolic blood rbwojmvc43 mm[Hg]Yixue Marlow DDS Work Phone: 1(775)[address] [place], [place] 0775508-19-2025 10:25-0400Heart rate82 /minYixue Marlow DDS Work Phone: [phone] [place], [place] 0775508-19-2025 10:25-0400Systolic blood ttvipcza335 mm[Hg]Yixue Marlow DDS Work Phone: [phone])[address] [place], [place] 0775508-04-2025 15:08-0400Body xkbrfhwsoro12.91 [degF]Yixue Marlow DDS Work Phone: [phone])[address] [place], [place] 0775508-04-2025 15:08-0400Diastolic blood yjeznaco53 mm[Hg]Yixue Marlow DDS Work Phone: [phone])[address] [place], [place] 0775508-04-2025 15:08-0400Heart rate86 /minYixue Marlow DDS Work Phone: [phone] [place], [place] 0775508-04-2025 15:08-0400Systolic blood mm[Hg]Yixue Marlow DDS Work Phone: [phone] [place], [place] 0775507-21-2025 14:10-0400Body uumvuu591.1 cmYixue Marlow DDS Work Phone: 1([phone])[address] [place], [place] 0775507-21-2025 14:10-0400Body nwarylkoymd37.6 [degF]Yixue Marlow DDS Work Phone: 1(632)[address] [place], [place] 0775507-21-2025 14:10-0400Diastolic blood hrxxvqyh45 mm[Hg]Yixue Marlow DDS Work Phone: 1(096)[address] [place], [place] 0775507-21-2025 14:10-0400Heart karg830 /minYixue Marlow DDS Work Phone: [phone] [place], [place] 0775507-21-2025 14:10-0400Systolic blood ghjggaai853 mm[Hg]Yixue Marlow DDS Work Phone: [phone] [place], [place] 0775506-09-2025 15:08-0400Body mass index (BMI) [Ratio]31.42 kg/m2Basia BLOOM Work Phone: [facility] CareAjegcmwuoj69-79-6144 15:08-0400Body .47 kgBasia BLOOM Work Phone: [facility] CareRkmspxqcqw90-14-3632 15:08-0400Diastolic blood nqobxvia68 mm[Hg]Basia BLOOM Work Phone: noFreeman Cancer InstituteHivwpysxff38-05-6590 15:08-0400Systolic blood gmshjfty356 mm[Hg]Basia BLOOM Work Phone: [facility] CareIndeiwputs66-48-7528 07:29-0500Body .1 cmAmy Love MD Work Phone: [facility]03-05-2025 07:29-0500Body mass index (BMI) [Ratio]28.62 kg/m2Amy Love MD Work Phone: [facility]03-05-2025 07:29-0500Body keiodowlfck84.2 [degF]Amy Love MD Work Phone: [facility]03-05-2025 07:29-0500Body ajsxcm65.02 kgAmy Love MD Work Phone: [facility]03-05-2025 07:29-0500Diastolic blood cqidveuf81 mm[Hg]Amy Love MD Work Phone: [facility]03-05-2025 07:29-0500Heart grci013 /minAmy Love MD Work Phone: [facility]03-05-2025 07:29-0500 Respiratory rate20 /minAmy Love MD Work Phone: [facility]03-05-2025 07:29-9150LkJ4% (BldA) [Mass fraction]96 %Amy Love MD Work Phone: [facility]03-05-2025 07:29-0500Systolic blood uxnqrxud460 mm[Hg]Amy Love MD Work Phone: [facility]01-27-2025 15:14-0500Diastolic blood pqkpauue74 mm[Hg]Sanchez Mancilla MD Work Phone: [facility]01-27-2025 15:14-0500Systolic blood mm[Hg]Sanchez Mancilla MD Work Phone: [facility]01-27-2025 14:05-0500Body egbwbh008.1 cmSbrittany Mancilla MD Work Phone: [facility]01-27-2025 14:05-0500Body mass index (BMI) [Ratio]29.29 kg/w8TpnszSanchez Mancilla MD Work Phone: [facility]01-27-2025 14:05-0500Body usisihsfeha50.9 [degF]Sanchez Mancilla MD Work Phone: [facility]01-27-2025 14:05-0500Body zdyhcg04.83 kgSanchez Mancilla MD Work Phone: [facility]01-27-2025 14:05-0500Heart irqf809 /minSbrittany Mancilla MD Work Phone: [facility]01-27-2025 14:05-0500 Respiratory rate20 /minSbrittany Mancilla MD Work Phone: [facility]01-27-2025 14:05-1203UyS5% (BldA) [Mass fraction]99 %Sanchez Mancilla MD Work Phone: [facility]12-08-2024 08:36-0500Body .1 cmAmisha Nguyen MD Work Phone: [facility]12-08-2024 08:36-0500Body mass index (BMI) [Ratio]3 kg/v5BrzpxwAmisha Nguyen MD Work Phone: [phone]12-08-2024 08:36-0500Body lwsbtksavin01.6 [degF]Amisha Nguyen MD Work Phone: [phone]12-08-2024 08:36-0500Body weight8.16 kgAmisha Nguyen MD Work Phone: [phone]12-08-2024 08:36-0500Diastolic blood mm[Hg]Amisha Nguyen MD Work Phone: [facility] HospitalKpqsso20-47-6649 08:36-0500Heart ycog265 /Chai Nguyen MD Work Phone: [facility] HospitalPbshzu69-90-3456 08:36-0500 Respiratory rate16 /minAmisha Nguyen MD Work Phone: [facility]12-08-2024 08:36-8580CpV3% (BldA) [Mass fraction]98 %Amisha Nguyen MD Work Phone: [facility]12-08-2024 08:36-0500Systolic blood uaeudvnu115 mm[Hg]Amisha Nguyen MD Work Phone: [facility]06-24-2023 18:06-0400Hourly RoundingMbanefo OJUKWU [address] [place], [place] 1490406-24-2023 18:06-0400 Promise to ReturnMbanefo OJUKWU [address] [place], [place] 1490406-24-2023 17:21-0400 Hourly RoundingMbanefo OJUKWU [address] [place], [place] 1490406-24-2023 17:21-0400 Promise to ReturnMbanefo OJUKWU [address] [place], [place] 1490406-24-2023 16:21-0400 Hourly RoundingMbanefo OJUKWU [address] [place], [place] 1490406-24-2023 16:21-0400 Promise to ReturnMbanefo OJUKWU [address] [place], [place] 1490406-24-2023 14:00-0400Blood Pressure LocationMbanefo OJUKWU [address]06-24-2023 11:45-0400Heart rate74 /minMbanefo OJUKWU [address] [place], [place] 8703706-24-2023 11:45-9168XsX9% (BldA) [Mass fraction]98 %Mbanefo OJUKWU [address] [place], [place] 8703706-24-2023 11:45-0400 Diastolic blood nujulmai65 mm[Hg]Mbanefo OJUKWU [address] [place], [place] 8703706-24-2023 11:45-0400Mean blood oxwlyzbw102 mm[Hg]Mbanefo OJUKWU [address] [place], [place] 8703706-24-2023 11:45-0400 Systolic blood xqblmlos800 mm[Hg]Mbanefo OJUKWU [address] [place], [place] 8703706-24-2023 11:45-0400Body kfucojritjf84.06 [degF]Mbanefo OJUKWU [address] [place], [place] 8703706-24-2023 08:47-0400gluc 192 mg/dLMbanefo OJUKWU [address] [place], [place] 8703706-24-2023 08:46-0400 Diastolic blood yedgjkfg94 mm[Hg]Mbanefo OJUKWU [address] [place], [place] 8703706-24-2023 08:46-0400Heart rate88 /minMbanefo OJUKWU [address] [place], [place] 8703706-24-2023 08:46-0400 Systolic blood lxvxnojo368 mm[Hg]Mbanefo OJUKWU [address] [place], [place] 8703706-24-2023 08:03-0400Heart rate83 /minMbanefo OJUKWU [address] [place], [place] 8703706-24-2023 08:03-7204RjO2% (BldA) [Mass fraction]98 %Mbanefo OJUKWU [address] [place], [place] 8703706-24-2023 08:03-0400Mean blood mm[Hg]Mbanefo OJUKWU [address] [place], [place] 8703706-24-2023 08:02-0400Body dgwyrpesaps46.24 [degF]Mbanefo OJUKWU [address] [place], [place] 8703706-24-2023 01:40-0400Blood Pressure LocationMbanefo OJUKWU [address] [place], [place] 8703706-24-2023 01:40-0400Body sbfhftrzrut20.06 [degF]Mbanefo OJUKWU [address] [place], [place] 8703706-24-2023 01:40-0400Heart rate91 /minMbanefo OJUKWU [address] [place], [place] 8703706-24-2023 01:40-0400Mean blood pbsosogs017 mm[Hg]Mbanefo OJUKWU [address] [place], [place] 8703706-24-2023 01:40-0400 Respiratory rate18 /minMbanefo OJUKWU [address] [place], [place] 8703706-24-2023 01:40-1564OyT3% (BldA) [Mass fraction]98 %Mbanefo OJUKWU [address] [place], [place] 8703706-23-2023 20:59-0400Heart rate94 /minMbanefo OJUKWU [address] [place], [place] 8703706-23-2023 19:00-0400Mean blood iwvexzdc144 mm[Hg]Mbanefo OJUKWU [address] [place], [place] 8703706-23-2023 15:33-0400 Respiratory rate18 /minMbanefo OJUKWU [address] [place], [place] 8703706-23-2023 15:32-0400Mean blood lwfoqxit427 mm[Hg]Mbanefo OJUKWU [address] [place], [place] 8703706-23-2023 11:35-0400Heart rate67 /minMbanefo OJUKWU [address] [place], [place] 8703706-23-2023 08:40-0400gluc 215 mg/dLMbanefo OJUKWU [address] [place], [place] 8703706-23-2023 04:53-0400Mean blood mm[Hg]Mbanefo OJUKWU [address] [place], [place] 8703706-22-2023 18:42-0400 Respiratory rate15 /minMbanefo OJUKWU [address] [place], [place] 8703706-22-2023 17:54-0400 Respiratory rate21 /minMbanefo OJUKWU [address] [place], [place] 8703706-22-2023 17:45-0400 Respiratory rate16 /minMbanefo OJUKWU [address] [place], [place] 8703706-22-2023 16:20-0400Heart rate87 /minMbanefo OJUKWU [address] [place] [address] Encounters Encounter DateEncounter TypeCare ProviderFacilityStart: 04-24-2025 End: 99-00-1635Kwguywxit identifierYixue Marlow DDS Work Phone: [facility] Dental [facility]art: 63-43-3580fhzndkuclvKtmgh Han [facility]tart: 03-20-2025 End: 06-80-0816Jtejhztjb identifierYixjayda Marlow DDS Work Phone: [facility] Dental ClinicStart: 03-05-2025 End: 31-85-2503Elfthkltn identifierYixue Kashmir CLAIRES Work Phone: [facility] Dental ClinicStart: 02-19-2025 End: 64-24-3055Qloromkuw identifierYixue Kashmir CLAIRES Work Phone: [facility] Dental ClinicStart: 01-08-2025 End: 86-19-2251Utzykva encounter procedureAmy Karly BLOOM Work Phone: [facility] Work Phone: Start: 01-08-2025 End: 87-02-6447Ehgzxyue preventive med est patient 40-64yrsAmy Karly BLOOM Work Phone: [facility] OBComment on above:Yeast infection (Primary Dx); Well woman exam with routine gynecological exam; Acute vaginitisStart: 01-08-2025 End: 06-90-7612xxhouyisjqMSR KARLYNot AvailableStart: 01-08-2025 End: 81-01-8804Skuxdh flowsheetBasia BLOOM Work Phone: [facility]CP OBStart: 01-08-2025 End: 12-02-8353Krcmch flowsheetBasia BLOOM Work Phone: [facility] OBStart: 01-08-2025 End: 24-42-5787Ribwpajbj Result EncounterAmy Karly BLOOM Work Phone: [facility] External Department UnsolicitedStart: 01-08-2025 End: 81-68-7639Fzuenjwe Result EncounterCorey Harlan DO Work Phone: [facility] UnsolicitedStart: 10-04-2024 End: 75-06-4623Aemspvwpg department patient visitJoinge Love MD Work Phone: [facility] DepartmentComment on above: Viral illness (Primary Dx)Start: 08-28-2024 End: 80-91-3732Zrwzmuhdn department patient visitStadarcy Mancilla MD Work Phone: [facility] DepartmentComment on above: Blood glucose elevated (Primary Dx); Hyperglycemia due to diabetes mellitus (HCC); DehydrationStart: 07-09-2024 End: 70-71-0036Enkdjjqgq department patient visitAmisha Nguyen MD Work Phone: [facility] Emergency DepartmentComment on above: Infective otitis externa of left ear (Primary Dx); Herpes zoster without complicationStart: 02-05-2023 End: 93-08-5508pbpgqzuisxMBDRIQGPremier Health [facility] Start: 41-32-4581vsglivuqlcJlrkqqcl:52910Hucqk: 12-87-0968yjocjjapsk Facility:18702Wjbye: 01-21-2023 End: 45-28-4855eugudnvhboLcgx D. ChristoffersonFacility:[facility]ENTERtart: 01-21-2023 End: 04-37-4516ZaxkptaxvxtXqqpxti ANITHA [facility] Start: 12-12-2022 End: 12-47-2032Bieybzcoi department patient visitPako MetzgerFacility:[facility] [place] [place] Start: 06-15-2022 End: 91-41-0091vitqjsecduCC LELAND FAZIOFacility:L0Otcmw: 04-27-2022 End: 27-24-3092cfrfdbsyxlLYSOPE CRAMERFacility:E7Cvvjs: 04-21-2022 End: 78-98-2287tgvletipfdRM GENTRY HOYFacility:P1Borhi: 04-15-2022 End: 43-65-4183yyobklsxnoGW LELAND FAZIOFacility:Q9Auhec: 01-04-2022 End: 73-70-3150hnmalyewyeVX GENTRY HOYFacility:C2Hdqbk: 01-03-2022 End: 32-09-9334phtsasqapvNDJRYS RODRIGUEZFacility:S6Khehr: 12-10-2021 End: 61-03-6974bdrzacfyraGC GENTRY HOYFacility:J7Lhwuz: 12-08-2021 End: 21-14-2752slnbmhrzgrTQ GENTRY LORENAFacility:E0Qmykg: 12-07-2021 End: 49-02-2754czcliowmnfMP BRI Beck SMITHFacility:H1 Procedures DateProcedureProcedure DetailPerforming ClinicianStart: 04-24-2025 End: 57-46-4550Uycnymbqplrxe of current medicationsYixue Kashmir DDS Work Phone: Start: 04-24-2025 End: 05-62-4227iorkasmjkah counseling for control of dental diseaseYixue Marlow DDS Work Phone: Start: 04-24-2025 End: 68-02-3876Zezb Op Visit DentalYixue Kashmir DDS Work Phone: Start: 03-20-2025 End: 68-21-4412Ctkzgcuoorwzu of current medicationsYixue Kashmir DDS Work Phone: Start: 03-20-2025 End: 96-16-3153yrhizvfcds, erupted tooth or exposed root (elevation and/or forceps removal)Yixue Kashmir DDS Work Phone: Start: 03-20-2025 End: 59-11-8886fvsbzxtydzh counseling for control of dental diseaseYixue Kashmir DDS Work Phone: Start: 03-05-2025 End: 77-46-2422Qneirmnvheywj of current medicationsYixue Kashmir DDS Work Phone: Start: 03-05-2025 End: 46-66-8595bjgsfqitih, erupted tooth or exposed root (elevation and/or forceps removal)Yixue Kashmir DDS Work Phone: Start: 03-05-2025 End: 73-15-8425qmgnjlqpttn counseling for control of dental diseaseYixue Kashmir DDS Work Phone: Start: 02-19-2025 End: 11-63-9930Xwgtkpqntjmes of current medicationsYixue Kashmir DDS Work Phone: Start: 02-19-2025 End: 50-52-0037nlhiqqdvpn, erupted tooth or exposed root (elevation and/or forceps removal)Priscilla Marlow [employer] Work Phone: Start: 02-19-2025 End: 43-48-1349xsbxjgfojg, erupted tooth requiring removal of bone and/or sectioning of tooth, and including elevation of mucoperiosteal flap if indicated Priscilla Marlow [employer] Work Phone: Start: 02-19-2025 End: 78-14-6244yghi hygiene instructionsYixjayda Marlow [employer] Work Phone: Start: 23-39-5536UMBPLRSYE VAGINITIS (HTRX)Leland Harlan Work Phone: Start: 61-31-4604FKM,APTIMA HPV,AGE GDLNAmy Karly BLOOM Work Phone: Start: 21-29-5349ISBYD-19, RAPIDAmy Love MD Work Phone: Start: 22-11-5592Tocdjxxcq influenzaAmy Love MD Work Phone: Start: 89-17-6470Ohe routine ecg w/least 12 lds w/i&r Sanchez Mancilla MD Work Phone: Start: 08-28-2024 End: 49-94-4428Vnuz bld gluc mntr dev cleared fda spec home useStadarcy Mancilla MD Work Phone: Start: 01-36-4713SBJQAE BLOOD GAS, POINT OF CAREStacy Wade Mancilla MD Work Phone: Start: 08-28-2024 End: 92-07-7143Ztiidsixybblr metabolic panelStadarcy Mancilla MD Work Phone: Percutaneous coronary interventionMbanefo OJUKWU Comment on above:stent to LCX Plan of Treatment DateCare ActivityDetailAuthorStart: 01-14-2026 End: 75-86-9841Aqhfpce encounter ztngeyeoj31/15/2026 3:00 PM EDT Office Visit [facility] [address] [place] [phone] Leland Claros DO [address] [place] [address] [facility] OBStart: 04-24-2025 End: 78-28-6820VabhEvans Army Community Hospital Work Phone: Start: 03-20-2025 End: 69-12-3635BivnEvans Army Community Hospital Work Phone: Start: 03-05-2025 End: 34-33-2589NqdmEvans Army Community Hospital Work Phone: Start: 64-01-2286KhxfEvans Army Community Hospital Work Phone: Start: 01-08-2025 End: 06-76-0107Oqvmvwo encounter sdalrkxmp46/09/2025 3:00 PM EDT Office Visit [facility] [address] [place] [phone] Basia Brandt PA [address] [place] [address] ArrivedNOMS BCP OBComment on above:ArrivedStart: 04-02-2024 COVID-19 Vaccine ( season)COVID-19 Vaccine ( season)[facility]art: 54-17-2585GBFRE-19 Vaccine ( season)COVID- 19 Vaccine ( season)[facility]art: 03-02-2024 Influenza vaccinationFlu vaccine (#1)[facility] Centerart: 1997 DTaP/Tdap/Td vaccine (1 - Tdap)DTaP/Tdap/Td vaccine (1 - Tdap)[facility] End: 13-83-4706Lhnsq gas, venousBlood gas, venous Lab Routine One Time for 1 Occurrences starting 08/28/2024 until 08/28/2024on ChaseFuture [facility] SystemComment on above:One Time for 1 Occurrences starting 08/28/2024 until 08/28/2024EKG 12 LeadEKG 12 Lead ECG STAT 08/28/2024 4:47 PM ESTBon ChaseFuture [facility] Payers DatePayer CategoryPayerPolicy [id number] Health InsuranceK[facility] MEDICAID Member Subscriber Plan / Payer (Effective 2024- Present) Name: Escobar Ortega Magnus Relation to Subscriber: Self Name: Jordan Escobar Agudelo Payer ID: Not on file Group ID: [id number] Type: Not on file Address: [place] [id number] [id number] [id number] 2..1.735961.3.57[id number] 2..1.821600.3.57[id number] 2..1.366273.3.57[id number] 2..1.059179.3.57[id number] 2..1.763063.3.57[id number] 2..1.057011.3.57[id number] 2..1.870682.3.57[id number] 2.16.840.1.552059.3.57[id number] 2.16.840.1.304253.3.57[id number] 2.16.840.1.439278.3.57[id number] 2.16.840.1.465882.3.57[id number] 2.16.840.1.867134.3.57[id number] 2.16.840.1.302894.3.57[id number] 2..840.1.760429.3.57[id number] 2.16.840.1.553420.3.57[id number] 2..840.1.534232.3.57[id number] 2.16.840.1.366073.3.57[id number] 2.840.1.219240.3.57[id number] Social History DateTypeDetailFacilityStart: 18-67-2303JxjwxfpRxauj smokerAdams County HospitalComment on above:deniesTobacco smoking statusNo Smoking Status Entered [facility]ertart: 07-09-2024 End: 19-05-0612Ctb Assigned At BirthFemalNationwide Children's Hospitaltart: 06-03-2023 End: 30-84-7403Viptkgp smoking status NHISNever smoked tobaccoCarilion Roanoke Memorial HospitalStart: 06-03-2023 End: 03-12-2054Qoojdrv use and exposureSmokeless tobacco non-userJunito Meredith [facility], Beachwoodjessica [facility] SystemStart: 07-09-2024 End: 54-90-0622Rslarrhrn beverage intakeLifetime non-drinker (finding)Junito Meredith [facility], Beachwoodjessica [facility] SystemStart: 92-24-6640Ooa assigned at birthFemaleBon Masoud [facility], Beachwoodjessica [facility] SystemStart: 86-41-1708Qsguje identityIdentifies as female gender (finding)Junito Meredith [facility], Beachwoodjessica [facility] SystemStart: 07-09-2024 End: 05-13-5616Lnkjaxt of Social functionBon [facility] HealthHow often to you have a drink containing alcohol?NeverBon [facility] HospitalHow many standard drinks containing alcohol do you have on a typical day?Patient does not drinkChildren'S Hospital Of The King'S Daughtersjesica [facility] HospitalStart: 06-03-2023 End: 06-24-3819Usoolhpag beverage intakeCurrent drinker of alcohol (finding)[facility] HealthcareHow often to you have a drink containing alcohol?Monthly or lessNOMS HealthcareHow many standard drinks containing alcohol do you have on a typical day?1 or 2N[facility]S HealthcareStart: 38-59-2015Cbxrxxq Commentcaffeine: 1-2 cups per dayST. GEORGE REGIONAL [facility]PITAL HealthcareStart: 87-23-7152Mlp assigned at birthNot on fileST. GEORGE REGIONAL HOSPITAL HealthcareSexual OrientationStraight or heterosexualEvans Army Community Hospital Work Phone: NEGATED: Highlighted rowStart: NINFHistory of tobacco usePassive smokerCarilion Roanoke Memorial HospitalNEGATED: Highlighted rowStart: 02-19-2025 End: 79-99-5339Xmahgqg smoking status NHISUnknown if ever smokedEvans Army Community HospitalNEGATED: Highlighted rowStart: 25-75-6594Focgcyq of tobacco useCurrent non-smokerEvans Army Community Hospital Medical Equipment Procedure CodeEquipment CodeEquipment Original TextEquipment IdentifierDatesPCI Unknown 01/22/23 Non Biological Left Circumflex Coronary ArteryFDAStart: 41-49-3754Amnzatb on above:2.75 mm x 28 mm Xience Coronary stent to LAD Functional Status DiguCcviwnkxoaRpnmpfBdqdqosn68-26-7430Bzvnozzjlh StatusKettering Health Troy06-22-2023Functional [facility] Clinical Notes 01-05-2022 to 04-24-2025 Note Date & TvzqStrzCspckrty95-02-3359 History of Present illness Narrative* Encounter Date Complaint History Of Prese nt Illness POV [facility] Work Phone: 1(404) 273-303408-19-2025 History of Present illness Narrative* Encounter Date Complaint History Of Prese nt Illness ext [facility] Work Phone: 1(758) 318-670808-04-2025 History of Present illness Narrative* Encounter Date Complaint History Of Prese nt Illness ext [facility] Work Phone: 1(912) 942-606707-21-2025 History of Present illness Narrative* Encounter Date Complaint History Of Prese nt Illness extraction extraction [facility] Work Phone: 1(115) 302-777406-09-2025 History of Present illness Narrative* Celeste Mikki, SERVICE SPECIALIST - 01/08/2025 3:00 PM EDT Reason for [...] Diagnosis Date Diabetes mellitus (CMS/HCC) HTN (hypertension) (CMS/HCC) HISTORY PAST MEDICAL HISTORY SOCIAL HISTORY Past Medical History: Diagnosis Date Diabetes mellitus (CMS/HCC) HTN (hypertension) (CMS/HCC) Social History Tobacco Use Smoking status: Never [...] nursing note reviewed. Exam conducted with a station helper present. Vitals: Estimated body mass index is [...] behalf of: MERLE Mendoza documented in this encounterUniversity of Missouri Health CareTuaasazjvu97-83-3239 Hospital Discharge instructions* Discharge Instructions* Sanchez Mancilla [...] through Care Everywhere. * Hyperglycemia: General Info (Bermudian) documented in this encounterBon [facility]07[facility] NoteCardiology Clinic Note Chief Complaint: establish [...] Aspirin indefinitely -High intensi (more content not included)...[facility] 02-05-2023 NoteNew patient here to establish care. Ref from Dr. Carrillo [place] [facility] see cardiology closer to [place]. She was started on Brilinta s/p PCI and is tolerating it well.[facility] 01-24-2023 NoteAdmission and Discharge Information Admitting Physician - Ellie OBANDO MD Consulting Physician - Abhishek Monterroso MD Admitting [...] shoulder pain. She was [facility] with acute NSTEMI, elevated troponin, hypertensive urgency, right shoulder pain. She was treated with aspirin, Brilinta, Lipitor, nitroglycerin, Lovenox. She was also treated with lisinopril and Lopressor. She was seen in consultation by the guest service representative and underwent echocardiogram that was essentially normal. [...] primary care physician as well as the guest service representative accordingly. Physical Exam General: alert, no acute [...] 69.9 % Lymph Auto - 24.9 % [place] Auto - 4.6 % Eos Auto - 0.2 % Basophil Auto - 0.4 % Neutro Absolute - 7.4 E9/L Lymph Absolute - 2.6 E9/L [place] Absolute - 0.5 E9/L Eos Absolute - [...] - 255 mg/dL POC Device SN - [id number] POC User ID - [id number] POC Username - LESLY PARR CBC w/ [...] Protein - NEGATIVE1 UA (more content not included)...[facility]Comment [facility]: Result Comment: Electronically Signed By: Ellie OBANDO MD\.br\Date and Time Signed: 01/24/23 19:32 [id number] Evaluation + Plan noteExtracted from:Title: APSO NoteAuthor:Ellie OBANDO MDDate:01/23/23 40-year-old female noncigarette smoker with history of [...] Lipitor, lisinopril, Lopressor. Treated with Lovenox. [facility]: [facility]Day Moderate 35 Minutes 32793 2. Coronary artery disease (I25.10: Atherosclerotic heart disease of [place] coronary artery withoutangina pectoris) As seen on cardiac catheterization. Patient has coronary artery disease with mid left circumflex artery occlusion requiring 1 drug-eluting stent placement on 01/22/2023. Continue on aspirin, Brilinta, Lipitor, lisinopril and Lopressor. Ordered: Sbsq Hospital Care/Day Moderate 35 Minutes 30099 3. Chest pain (R07.9: Chest pain, unspecified) Secondary to above. Resolved. Ordered: Sbsq Hospital Care/Day Moderate 35 Minutes 81008 4. Elevated troponin (R77.8: Other specified abnormalities of plasma proteins) Secondary to above. Resolved. Ordered: Sbsq Hospital Care/Day Moderate 35 Minutes 69314 5. Hypertensive urgency (I16.0: Hypertensive urgency) Resolved. Continue on lisinopril and metoprolol. Or[facility]: [facility]/Day Moderate 35 Minutes 51418 6. Right shoulder pain (M25.511: Pain in right shoulder) Secondary to above #1. With atypical presentation. Ordered: [facility] Care/Day Moderate 35 Minutes 49645 7. Leukocytosis (D72.829: Elevated white blood cell [...] vein thrombosis (DVT) prophylaxis (Z79.899: Other superintendent terminal (current) drug therapy) SCDs. Disposition: Home either today or in a.m. pending cardiology final recommendations. I discussed the diagnosis and plan of care with the patient at the bedside. Moderate level of MDM based on addressing above issues. This documentation was transcribed using voice recognition software. Several attempts were made to ensure accuracy. However inadvertent computerized water and sewer systems superintendent errors may be present. Ellie Obando. Hospitalist. [...] TransDermal, Once, Stop date 01/22/23 12:00:00 EDT, Routine,Start date 01/22/23 12:00:00 EDT, Vancomycin Pharmacy to [...] Echo Transthoracic w/ Contrast [id number] Referral to [facility] Extracted from:Title:Procedure Note Heart & VascularAuthor:Kriss HAIDER, Abhishek HaganDate:01/22/23 1. Chest pain (R07.9: Chest pain, unspecified) [...] deep vein thrombosis (DVT) prophylaxis (Z79.899: Other nursing home (current) drug therapy) Orders: ticagrelor, 180 mg = 2 tab(s), Tab, Oral, Once, Stop date 01/22/23 14:32:00 EDT, NOW, Start date 01/22/23 14:32:00 EDT, 01/22/23 14:32:00 EDT ticagrelor, Tab, Misc, Once, Stop date 01/22/23 14:32:48 EDT, Physician Stop, 01/22/23 14:32:48 EDT CV Cardiovascular Extracted from:Title:Consult NoteAuthor:Kriss HAIDER, Abhishek HaganDate:01/22/23 43-year-old female with non- STEMI. Significant risk [...] vein thrombosis (DVT) prophylaxis (Z79.899: Other superintendent terminal (current) drug therapy) Orders: ticagrelor, 180 mg = 2 tab(s), Tab, Oral, Once, Stop date 01/22/23 14:32:00 EDT, NOW, Start date 01/22/23 14:32:00 EDT, 01/22/23 14:32:00 EDT ticagrelor, Tab, Misc, Once, Stop date 01/22/23 14:32:48 EDT, Physician Stop, 01/22/23 14:32:48 EDT CV Cardiovascular Extracted from:Title:APSO NoteAuthor:GAGE HAIDER, MbanefoDate:01/22/23 43-year-old female noncigarette smoker with history of diabetes mellitus, hypertension, obesity presented with chest pain, right shoulder pain and admitted with chest pain, elevated troponin, leukocytosis, hyperglycemia, hyponatremia, metabolic acidosis, right shoulder pain. 1. Chest pain (R07.9: Chest pain, unspecified) Chest pain secondary to acute coronary syndrome. Resolved. Continue on aspirin, nitroglycerin as needed, morphine and oxygen. Cardiology consult pending. Ordered: [facility] Hospital Care/Day Moderate 35 Minutes 62611 2. Elevated troponin (R77.8: Other specified abnormalities of plasma proteins) Elevated troponin secondary to NSTEMI. Cardiology consult pending. Continue on aspirin, Lipitor, Lovenox. Echocardiogram pending. Ordered: [facility] Hospital Care/Day Moderate 35 Minutes 88352 3. NSTEMI (non-ST elevation myocardial infarction) (I21.4: Non-ST elevation (NSTEMI) myocardial infarction) Acute NSTEMI present on admission. Cardiology consult pending. Echocardiogram pending. Continue on aspirin, Lipitor, lisinopril, Lovenox. Ordered: [facility] Hospital Care/Day Moderate 35 Minutes 91294 4. Hypertensive urgency (I16.0: Hypertensive urgency) Resolved. Continue lisinopril. Ordered: [facility] Hospital Care/Day Moderate 35 Minutes 02569 5. Right shoulder pain (M25.511: Pain in right shoulder) Resolved. [facility] Moderate 35 Minutes 46700 6. Leukocytosis (D72.829: Elevated white blood cell [...] deep vein thrombosis (DVT) prophylaxis (Z79.899: Other nursing home (current) drug therapy) Lovenox. Disposition: Pending echocardiogram and cardiology consult. I discussed the diagnosis and plan of care with the patient at the bedside. Moderate level of MDM based on addressing above issues. This documentation was transcribed using voice recognition software. Several attempts were made to ensure accuracy. However inadvertent computerized water and sewer systems superintendent errors may be present. Ellie Obando. Hospitalist. Extracted from:Title:Admission H & PAuthor:Bobby OBANDO MDfoDate:01/21/23 43-year-old female noncigarette smoker with history of [...] Ordered: Initial Hospital Care/Day High 75 Minutes 51999 2. Elevated troponin (R77.8: Other specified abnormalities of plasma proteins) Elevated troponin mild. We will complete serial cardiac enzymes. Started patient on aspirin. If troponin trends up we will start patient on Lovenox or IV heparin. Check fasting lipid profile. Echocardiogram. Ordered: Initial Hospital Care/Day High 75 Minutes 58882 3. Hypertensive urgency (I16.0: Hypertensive urgency) Continue lisinopril. IV hydralazine as needed. Ordered: Initial Hospital Care/Day High 75 Minutes 98267 4. Right shoulder pain (M25.511: Pain in right shoulder) Musculoskeletal in origin. Started patient on as needed pain medications. Ordered: Initial Hospital Care/Day High 75 Minutes 50084 5. Leukocytosis (D72.829: Elevated white blood cell count, unspecified) Secondary to steroid effect. Ordered: Initial Hospital Care/Day High 75 Minutes 62314 6. Hyperglycemia (R73.9: Hyperglycemia, unspecified) Secondary to [...] deep vein thrombosis (DVT) prophylaxis (Z79.899: Other nursing home (current) drug therapy) Lovenox. Disposition: The patient [...] made to ensure accuracy. However inadvertent computerized water and sewer systems superintendent errors may be present. Ellie Obando. Hospitalist. [...] 01/21/23 19:07:00 EDT, 10 hour(s), Total volume (mL):1,000, 83 kg, 1.95, m2 zolpidem, 5 mg = 1 tab(s), Tab, Oral, Bedtime PRN Sleep, Routine, Start date 01/21/23 19:07:00 EDT,01/21/23 19:07:00 EDT Basic Metabolic Panel Cardiac Monitoring CBC w/ Auto Diff Consult to Cardiology Diabetic/Calorie Control Diet Echo Transthoracic Complete HgbA1c Hypoglycemia Protocol Responsive Patient Hypoglycemia Protocol Unresponsive Patient Lipid Panel Oxygen Protocol Place in Status Pulse Oximetry Resuscitation Status - Full Routine Capillary Glucose POC Up ad Rosa Vital Signs Weight Extracted from:Title:ED NoteAuthor:Daisy Campos M.D. HDate:01/21/23 1. Hypertensive urgency (I16 .0: Hypertensive urgency) [...] deep vein thrombosis (DVT) prophylaxis (Z79.899: Other nursing home (current) drug therapy) Orders: nitroglycerin, 0.4 mg = 1 tab(s), Tab, SubLingual, q5min PRN Chest pain for 3 dose(s), Stop date Limited # of times, STAT, Start date 01/21/23 17:05:00 EDT, 01/21/23 17:05:00 EDT Sodium Chloride 0.9% intravenous solution, 1,000 mL, Soln-IV, IV, Once, Stop date 01/21/23 17:09:00EDT, STAT, Start date 01/21/23 17:09:00 EDT, Infuse over 61, minute(s) ED Physician consult Hospitalist for continued care [facility]06-24-2023 Hospital Discharge instructions Patient Education 01/23/2023 09:22:37 CV - Cardiovascular PCI Discharge Instructions (CUSTOM) [place], [place] Cardiovascular PCI DISCHARGE INSTRUCTIONS Diet: Resume [...] hours post procedure: Actoplus MetGlucophageGlucophage XR GlucovanceAvandametFortamet Yqn-uoompslchKhzfixZdeu-zpiskungh GlumetzaJanumetMetaglip RiometGlycomet Minimal pain, soreness and/or discomfort is expected. If you are prescribed an aspirin and/or antiplatelet (such as Plavix, Brilinta or Effient) do NOT stop taking these medications for any reason without talking to your guest service representative Site Care: Do not remove dressing for [...] you are interested in smoking cessation, contact [facility] [place] at [phone], ext. [phone]. In the event you are unable to reach your physician, please call [facility] at [phone] and the track hoe operator will assist you. Seek Medicare Care [...] Care 01/21/2023 16:19:43 With:Abhishek Monterroso Address: [address] [place] [address]- Business (1) When:2 weeks Comments:Call for followup appointment With:Gentry Carrillo Address: [facility] [place] [address]- Business (1) When:01/27/2023 09:30:00 [facility]06-24-2023 NoteProcedure [facility] poss PCI via right radial Patient [...] deep vein thrombosis (DVT) prophylaxis (Z79.899: Other nursing home (current) drug therapy) Orders: ticagrelor, 180 mg = 2 tab(s), Tab, Oral, Once, Stop date 01/22/23 14:32:00 EDT, NOW, Start date 01/22/23 14:32:00 EDT, 01/22/23 14:32:00 EDT ticagrelor, Tab, Misc, Once, Stop date 01/22/23 14:32:48 EDT, Physician Stop, 01/22/23 14:32:48 EDT CV CardiovascularGrant HospitalComment on above:Result Comment: Electronically Signed By: Kriss HAIDER, Abhishek Hagan\.br\Date and Time Signed: 01/22/23 22:12 [id number] NoteEchocardiology Procedure Exam Date/Time Accession # Ordering Dr. Gonzalez Transthoracic w/ 01/22/2023 11:42 EDT [id number] Ellie OBANDO MD Contrast CPT code [id number] Reason for Exam (Echo Transthoracic w/ Contrast) Chest pain Report [facility] [address] [place] [address] Adult Echocardiogram Report Name: ESCOBAR ORTEGA Study Date: 01/22/2023 09:56 AM BP: 129/81 mmHg Patient Location: [address] [place] [address] HR: 89 : 1980 Gender: Female Height: 65 in Age: 43 yrs Ethnicity: [facility] Weight: 183 lb Reason For Study: Chest pain BSA: 1.9 m2 History: DM, HTN Ordering Physician: Ellie OBANDO Performed By: Rema Meléndez, [facility] Interpretation Summary Ejection Fraction = 60-65%. Normal [...] Signed by: Abhishek Monterroso MD Transcribed by: [facility] Technologist: [facility]06-22-2023 Note Chief Complaint pt states just seen for arm pain, given rx steroid. 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 Illness 43-year-old female [...] Lymph Auto: 8.6 % Low (01/21/23 16:35:00) [place] Auto: 4.8 % (01/21/23 16:35:00) Eos Auto: 0.1 % (01/21/23 16:35:00) Basophil Auto: 0.3 % (01/21/23 16:35:00) Neutro Absolute: 12.3 E9/L High (01/21/23 16:35:00) Lymph Absolute: 1.2 E9/L (01/21/23 16:35:00) [place] Absolute: 0.7 E9/L (01/21/23 16:35:00) Eos Absolute: [...] Urobilinogen: 0.2 (01/21/23 17:53 (more content not included)...[facility] HospitalComment on above:Result Comment: Electronically Signed By: GAGE HAIDER, Ellie\.br\Date and Time Signed: 01/21/23 19:11 [id number] Note PROCEDURE: XR GI UPPER AIR KUB [...] Electronically authenticated by: MATTHEW SILVER Date: 2022-01-05 11:30[facility]06-06-2022 NotePROCEDURE: XR GI UPPER AIR KUB DUAL [...] Electronically authenticated by: MATTHEW SILVER Date: 2022-01-05 11:30[facility]06-06-2022 NotePROCEDURE: XR GI UPPER AIR KUB DUAL [...] authenticated by: MATTHEW SILVER Date: 2022-01-05 11:30[facility]* Clinical Note Date No Information [facility] Work Phone: Discharge summary* Clinical Note Date No Information [facility] Work Phone: Evaluation note* Diagnosis Infective otitis externa of left ear- Primary Herpes zoster without complication [facility] Diagnosis Blood glucose elevated- Primary Other abnormal glucose Hyperglycemia due to diabetes mellitus (HCC) Dehydration [facility] Diagnosis Viral illness- Primary Unspecified viral infection, in conditions classified elsewhere and of unspecified site [facility]* Diagnosis Yeast infection- Primary Well woman exam with routine gynecological exam Routine gynecological examination Acute vaginitis Unspecified vaginitis and vulvovaginitis documented in this encounter [facility] Type Assessment Date No Information [facility] Work Phone: History and physical note* Clinical Note Date No Information [facility] Work Phone: History of Past illness Narrative* Condition Effective Dates (start - stop) O utcome No Information [facility] Work Phone: Hospital course Narrative No data available for this section [facility]* Attachments The following attachments cannot be sent through Care Everywhere. * Shingles (Bermudian) * Otitis Externa (Bermudian) [facility]* Attachments The following attachments cannot be sent through Care Everywhere. * URI (Upper Respiratory Infection): Viral (Bermudian) [facility]* Date Instruction Additional Infor mation No Information [facility] Work Phone: Progress note No data available for this section [facility]* Clinical Note Date No Information [facility] Work Phone: Reason for referral (narrative)* Reason For Referral No Information [facility] Work Phone: Review of systems Narrative - Reported* System Pos/Neg Findings No Information [facility] Work Phone: Summary Purpose Family [...] and content) DATE CREATED AUTHOR 06/22/2022 [facility] DATE CREATED AUTHOR AUTHOR'S ORGANIZ ATION 01/28/2023 [facility] DATE CREATED AUTHOR AUTHOR'S ORGANIZ ATION 03/15/2023 [facility] DATE CREATED AUTHOR AUTHOR'S ORGANIZ ATION 05/15/2023 [facility] DATE CREATED AUTHOR AUTHOR'S ORGANIZ ATION 10/05/2024 [facility] DATE CREATED AUTHOR AUTHOR'S ORGANIZ ATION 01/09/2025 [facility] DATE CREATED AUTHOR AUTHOR'S ORGANIZ ATION 04/25/2025 [facility] Patient Care team informatio n (unrecognized section and content) Team MemberRelationshipSpecialtyStart DateEnd Date Gentry Carrillo MD [address] [place] [address] PCP - GeneralFamily Aptmqobu09/8/24Team MemberRelationshipSpecialtyStart DateEnd Date Gentry Carrillo MD [address] [place] [address] PCP - GeneralFamily Bfsgmswg79/8/24Team MemberRelationshipSpecialtyStart DateEnd Date Gentry Carrillo MD [address] [place] [address] PCP - GeneralFamily Pfbablqy74/8/24Team MemberRelationshipSpecialtyStart DateEnd Date Gentry Carrillo MD [address] [place] [address] PCP - GeneralFamily Medicine11/16/24Team MemberRelationshipSpecialtyStart DateEnd Date Gentry Carrillo MD [address] [place] [address] PCP - GeneralFamily Medicine11/16/24Team MemberRelationshipSpecialtyStart DateEnd Date Gentry Carrillo MD [address] [place] [address] PCP - GeneralFamily Medicine11/16/24 Name Effective Dates (start - stop) Status Members No Information Reason for Visit (unrecogniz ed section and content) ReasonCommentsEar PainLeft ear pain for 3 weeks. Worse since last night.Reason CommentsHyperglycemiaPt blood sugars have been running high for a weekReason CommentsGeneralized Body AchesStarted yesterdayReasonCommentsWell Women Visit Ordered Prescriptions (unrec ognized section and content) PrescriptionSigDispensedRefillsStart DateEnd Date ciprofloxacin (CILOXAN) 0.3 % ophthalmic solution Place 4 drops in ear(s) in the morning and at bedtime for 10 days Please 4 drops in the left ear bid for 7 days 5 mL / naproxen (NAPROSYN) 375 MG tablet Take 1 tablet by mouth 2 times daily as needed for Pain 20 tablet / valACYclovir (VALTREX) 1 g tablet Take 1 tablet by mouth 3 times daily for 7 days 21 tablet / atorvastatin (LIPITOR) 80 MG tablet Take 1 tablet by mouth daily Please hold for the time you are taking antiviral 30 tablet 07/09/2024rescriptionSigDispensedRefillsStart DateEnd Date acetaminophen (TYLENOL) 500 MG tablet Take 1 tablet by mouth 4 times daily as needed for Pain 360 tablet Scheduled Active and Recently Administ ered Medications (unrecognized section and content) Medication Order/ ketorolac (TORADOL) injection 30 mg (COMPLETED) 30 mg, IntraMUSCular, ONCE, 1 dose, On 07/09/24 at 0900, Do not administer for more than 5 days. * 0859 (Given - Provider: Nuzhat Posada RN) Medication Order// acetaminophen (TYLENOL) tablet 650 mg (COMPLETED) 650 mg, Oral, ONCE, 1 dose, On 08/28/24 at 1630, Maximum dose of acetaminophen is 4000 mg from all sources in 24 hours. * 1631 (Given - Provider: Karolina Trujillo RN) insulin regular (HumuLIN R;NovoLIN R) injection 15 Units (COMPLETED) 15 Units, IntraVENous, ONCE, 1 dose, On Wed08/28/24 at 1515 * 1528 (Given - Provider: Karolina Trujillo RN) sodium chloride 0.9 % bolus 1,000 mL (COMPLETED) 1,000 mL (12.5 mL/kg), IntraVENous, at 1,000 mL/hr, Administer over 1 Hours, ONCE, On Wed08/28/24 at 1430, For 1 dose * 1525 (New Bag - Provider: Karolina Trujillo RN) * 1607 (Stopped - Provider: Karolina Trujillo RN) sodium chloride 0.9 % bolus 1,000 mL (COMPLETED) 1,000 mL (12.5 mL/kg), IntraVENous, at 1,000 mL/hr, Administer over 1 Hours, ONCE, On Wed08/28/24 at 1630, For 1 dose * 1631 (New Bag - Provider: Karolina Trujillo RN) * 1811 (Stopped - Provider: Karolina Trujillo RN) Medication Order03//[id number]//[id number]/11/2024 acetaminophen (TYLENOL) tablet 1,000 mg (COMPLETED) 1,000 mg, Oral, ONCE, 1 dose, On Wed10/04/24 at 0745, Maximum dose of acetaminophen is 4000 mg from all sources in 24 hours. * 0740 (Given - Provider: Karolina Trujillo RN) FOR RECORDS [...] BE BASED ON THE PRIMARY CLINICAL RECORDS. [employer] [facility]. provides no warranty or guarantee of the accuracy or completeness of information in this document.
--- OUTSIDE RECORDS SUMMARY | 2025-06-18 07:57 | XMS_ITS | Clinical Summary ---
Author Organization [facility] Address [address] [place] [address] Care Team Providers Care Insights Strategist Name Role Phone Gentry Wolf MD Primary Care Provider [phone] Allergies Active AllergyReactionsCriticalityNoted DateCommentsPenicillinsRash,Hives, WdbvkxrYrc87/25/2019 Other Reaction(s): Other Medications No known medications Family History Medical HistoryRelationNameCommentsDiabetesFatherHypertensionFatherHeart disease MotherLung cancerMotherNo Known ProblemsSisterRelationNameStatusCommentsFather MotherDeceasedSister Social History Tobacco UseTypesPacks/DayYears UsedDateSmoking Tobacco: NeverSmokeless Tobacco: Never Tobacco Cessation:Counseling Given: Not Answered Alcohol UseStandard Drinks/WeekCommentsYes0 (1 standard drink = 0.6 oz pure alcohol)caffeine: 1-2 cups per dayAUDIT-CAnswerDate RecordedQ1: How often do you have a drink containing alcohol?Monthly or less06/03/2023Q2: How many drinks containing alcohol do you have on a typical day when you are drinking?1 or 2 06/03/2023Q3: How often do you have six or more drinks on one occasion?Never 06/03/2023CommentsUnknownSex and Gender InformationValueDate RecordedSex Assigned at BirthNot on fileLegal HdsMhaatr86/15/2023 7:17 PM EDTGender Identity Not on fileSexual OrientationNot on file Last Filed Vital Signs Vital SignReadingTime TakenCommentsBlood Ixdrshug278/76001/08/2025 3:08 PM EDT Pulse--Temperature--Respiratory Rate--Oxygen Saturation--Inhaled Oxygen Concentration--Pzgewt45.5 kg (177 lb 6.4 oz)01/08/2025 3:08 PM IVHTtfdve382 cm (5' 3 )06/15/2022 12:00 PM ESTBody Mass Index31.42108/15/2021 12:00 PM EST Plan of Treatment DateTypeDepartmentCare Team (Latest Contact Info)Jyfthpefpsn48/15/2026 3:00 PM EDTOffice Visit [facility] [address] [place] [address] Leland Claros DO [address] [place] [address] Insurance Care Teams Team MemberRelationshipSpecialtyStart DateEnd Gentry Wolf MD [address] [facility] [place] [address] PCP - Generalmily Medicine11/16/24
--- OUTSIDE RECORDS SUMMARY | 2025-06-18 07:57 | XMS_ITS | Patient Health Record ---
Author Organization [facility] in [place] Address [address] [place] [address] Care Team Providers Care [employer] Agent Name Role Phone Phillip Wolf Primary Care Provider [phone] Allergies Allergen (clinical drug ingredient) Drug/Non Drug Allergy documented on EMR Reaction Allergy Type Onset Date Status Penicillinrash- childhoodDrug AllergyActive Results Component Value Reference Range Notes DIRECT LDL Reviewed date:02/15/2025 06:11:00 PM Interpretation: Performing Lab: Notes/Report: [facility] , LDL Cholesterol Direct 108 <100 mg/dl OPTIMAL 100-129 mg/dl NEAR OR ABOVE OPTIMAL 130-159 mg/dl BORDERLINE HIGH 160-189 mg/dl HIGH >190 mg/dl VERY HIGH Performing Lab:see note - [facility] LBFREE T3 Reviewed date:02/15/2025 06:11:00 PM Interpretation: Performing Lab: Notes/Report: [facility] ,Free T33.192.18-3.98 pg/mLPerforming Lab:see noteML - [facility] LB LIPID PROFILE Reviewed date:02/15/2025 06:11:00 PM Interpretation: Performing Lab: Notes/Report: [facility] ,Rrorhbjxpqffb294<=150 mg/gJRjgkglhlhtf667<=200 mg/dLHDL Kyvkbayvhnr0889-15 mg/dL > or =60 mg/dl - LOW CARDIOVASCULAR RISK <40 mg/dl - HIGH CARDIOVASCULAR RISK VLDL OXUSTJBOUJW471.6Chol HDL Ratio6.0 3.3 - 4.4 LOW RISK 4.4 - 7.1 AVERAGE RISK 7.1 - 11.0 MODERATE RISK >11.0 HIGH RISK Performing Lab:see noteML - [facility] LBPROF 14(COMP METB) Reviewed date:02/15/2025 06:11:00 PM Interpretation: Performing Lab: Notes/Report: [facility] ,Oerfja374015-936 mmol/LPotassium4.13.5-5.1 mmol/FSmaakgeu3079-778 mmol/LCarbon Qvxdksu49.821.0-32.0 mmol/LAnion Gap13.2Lqsfhde55272-841 mg/dLBlood Urea Fhidqmqu82.07.0-18.0 mg/dLCreatinine0.660.55-1.02 mg/dLEstimated GFR ( Lashae>60>=60 mL/min/1.73m 2Estimated GFR (Non- Ivette>60>=60 mL/min/1.73m 2BUN Creatinine Ratio27.6Rwdayxi2.58.5-10.1 mg/dLBilirubin Total0.60.2-1.0 mg/dL Aspartate Amino Wfxggeubmak830-41 U/LAlanine Qkszhqqoptdsbvdo1617-56 U/LAlkaline Lrtxebpaotl26591-833 U/LTotal Protein7.56.4-8.2 g/dLAlbumin Level3.43.4-5.0 g/dL Globulin4.1Albumin Globulin Ratio0.8Performing Lab:see note - [facility] LBT4 Reviewed date:02/15/2025 06:11:00 PM Interpretation: Performing Lab: Notes/Report: [facility] ,T4 Thyroxine8.504.80-13.90 ug/dLPerforming Lab:see noteML - [facility] LBTSH Reviewed date:02/15/2025 06:11:00 PM Interpretation: Performing Lab: Notes/Report: [facility] ,Thyroid Stimulating Hormone1.5960.358-3.740 uIU/mLPerforming Lab:see note - [facility] LBCBC AUTO DIFF Reviewed date:05/13/2025 08:34:21 PM Interpretation: Performing Lab: Notes/Report: [facility] ,White Blood Count6.44.0-11.0 10 3/uLRed Blood Count4.974.20-5.40 10 6/uL Somoqkqogy31.212.0-16.0 g/rNWaieytmnuk76.636.0-48.0 %Mean Corpuscular Fsjrhn69.7 81.0-99.0 fLMean Corpuscular Zervcmbqrt08.626.7-34.0 pgMean Corpuscular HGB Conc 35.929.9-35.2 g/dLRed Cell Distribution Width12.311.0-15.0 %Platelet Pogcb408 150-450 10 3/uLMean Platelet Wippxf75.59.5-13.5 fLNeutrophils Percent Auto57.9 43.0-75.0 %Lymphocytes Percent Auto35.820.5-60.0 %Monocytes Percent Auto4.81.7- 12.0 %Eosinophils Percent Auto0.60.9-7.0 %Basophils Percent Auto0.60.2-2.0 % Immature Granulocytes Pct Auto0.30.0-0.5 %Neutrophils Absolute Auto3.71.4-6.5 10 3/uLLymphocytes Absolute Auto2.31.2-3.8 10 3/uLMonocytes Absolute Auto0.30.3-0.8 10 3/uLEosinophils Absolute Auto0.00.0-0.7 10 3/uLBasophils Absolute Auto0.00.0- 0.1 10 3/uLImmature Granulocytes Abs Auto0.020.00-0.03 10 3/uLPerforming Lab:see noteML - [facility] LBPROF CHEM 8 (BAS METB) Reviewed date:05/13/2025 08:34:21 PM Interpretation: Performing Lab: Notes/Report: [facility] ,Xolprb589582-762 mmol/LPotassium4.23.5-5.1 mmol/WAutzvazl8574-553 mmol/LCarbon Fcexrdp55.421.0-32.0 mmol/LAnion Gap16.9Vtpgrqr66518-767 mg/dLBlood Urea Yyxlqfso56.07.0-18.0 mg/dLCreatinine0.790.55-1.02 mg/dLEstimated GFR ( Lashae>60>=60 mL/min/1.73m 2Estimated GFR (Non- Ivette>60>=60 mL/min/1.73m 2BUN Creatinine Ratio16.3Vrrvqoy6.08.5-10.1 mg/dLPerforming Lab:see note - [facility] LBTropoen[facility] I High Sensitivity Reviewed date:05/13/2025 08:34:21 PM Interpretation: Performing Lab: Notes/Report: [facility] ,Troponin I High Zrafnwnruud57.24.0-51.3 pg/mL CUT-OFF POINTS HAVE BEEN ESTABLISHED BASED ON THE FOURTH UNIVERSAL DEFINITION OF MYOCARDIAL INFARCTION. THE UPPER REFERENCE LIMIT (URL) OF TROPONIN, DEFINED THE 99TH PERCENTILE OF cTnI DISTRIBUTION IN A REFERENCE POPULATION, HAS BEEN CONFIRMED THE DECISION THRESHOLD FOR [place] DIAGNOSIS. 99TH PERCENTILE = 51.4 PG/ML NOTE: HIGH-SENSITIVITY TROPONIN ASSAY IS NOT INTENDED TO BE USED IN ISOLATION BUT SHOULD BE INTERPRETED IN CONJUNCTION WITH OTHER DIAGNOSTIC AND CLINICAL INFORMATION. Performing Lab:[facility] LBTroponin I High Sensitivity Reviewed date:05/13/2025 08:34:21 PM Interpretation: Performing Lab: Notes/Report: [facility] ,Troponin I High Bgxwjoolonc06.24.0-51.3 pg/mL CUT-OFF POINTS HAVE BEEN ESTABLISHED BASED ON THE FOURTH UNIVERSAL DEFINITION OF MYOCARDIAL INFARCTION. THE UPPER REFERENCE LIMIT (URL) OF TROPONIN, DEFINED THE 99TH PERCENTILE OF cTnI DISTRIBUTION IN A REFERENCE POPULATION, HAS BEEN CONFIRMED THE DECISION THRESHOLD FOR [place] DIAGNOSIS. 99TH PERCENTILE = 51.4 PG/ML NOTE: HIGH-SENSITIVITY TROPONIN ASSAY IS NOT INTENDED TO BE USED IN ISOLATION BUT SHOULD BE INTERPRETED IN CONJUNCTION WITH OTHER DIAGNOSTIC AND CLINICAL INFORMATION. Performing Lab:see note - [facility] LBTroponin I High Sensitivity Reviewed date:05/13/2025 08:34:21 PM Interpretation: Performing Lab: Notes/Report: [facility] ,Troponin I High Mbxosxhwjmm98.04.0-51.3 pg/mL CUT-OFF POINTS HAVE BEEN ESTABLISHED BASED ON THE FOURTH UNIVERSAL DEFINITION OF MYOCARDIAL INFARCTION. THE UPPER REFERENCE LIMIT (URL) OF TROPONIN, DEFINED THE 99TH PERCENTILE OF cTnI DISTRIBUTION IN A REFERENCE POPULATION, HAS BEEN CONFIRMED THE DECISION THRESHOLD FOR FL DIAGNOSIS. 99TH PERCENTILE = 51.4 PG/ML NOTE: HIGH-SENSITIVITY TROPONIN ASSAY IS NOT INTENDED TO BE USED IN ISOLATION BUT SHOULD BE INTERPRETED IN CONJUNCTION WITH OTHER DIAGNOSTIC AND CLINICAL INFORMATION. Performing Lab:see note - [facility] LBGLYCOHEMOGLOBIN A1C Reviewed date:05/13/2025 08:34:21 PM Interpretation: Performing Lab: Notes/Report: Comment Add to an already drawn sample [facility] ,Glycohemoglobin A1C11.84.5-6.2 % ADA RECOMMENDED LIMIT 4.0 - 6.0 ADA THERAPEUTIC TARGET < 7.0 ACTION SUGGESTED > 7.0 Estimated Average Hwjbvxn180Njrwukfado Lab:see note - [facility] LB PROF 14(COMP METB) Reviewed date:05/13/2025 08:34:21 PM Interpretation: Performing Lab: Notes/Report: [facility] ,Swpzjd796083-491 mmol/LPotassium3.83.5-5.1 mmol/MKggpoxup92223-606 mmol/LCarbon Ywwcdma43.121.0-32.0 mmol/LAnion Gap15.5Upcgxat94273-669 mg/dLBlood Urea Xdulcetb62.07.0-18.0 mg/dLCreatinine0.550.55-1.02 mg/dLEstimated GFR ( Lashae>60>=60 mL/min/1.73m 2Estimated GFR (Non- Ivette>60>=60 mL/min/1.73m 2BUN Creatinine Ratio21.8Ujzfgce7.88.5-10.1 mg/dLBilirubin Total0.70.2-1.0 mg/dL Aspartate Amino Srnoorxuozh2334-37 U/LAlanine Nnrheimcpmojduji0163-04 U/L Alkaline Bfdodbgfrmu0083-078 U/LTotal Protein6.86.4-8.2 g/dLAlbumin Level3.13.4- 5.0 g/dLGlobulin3.7Albumin Globulin Ratio0.8Performing Lab:see note - [facility] LBCBC no Diff (Hemogram) Reviewed date:05/13/2025 08:34:21 PM Interpretation: Performing Lab: Notes/Report: [facility] ,White Blood Count6.24.0-11.0 10 3/uLRed Blood Count4.814.20-5.40 10 6/uL Yllnrrrlcx90.612.0-16.0 g/pFTrhdzwrkxw46.236.0-48.0 %Mean Corpuscular Sseazc09.5 81.0-99.0 fLMean Corpuscular Uancyikhwb13.326.7-34.0 pgMean Corpuscular HGB Conc 34.729.9-35.2 g/dLRed Cell Distribution Width12.511.0-15.0 %Platelet Obulj480 150-450 10 3/uLMean Platelet Ehazqc14.29.5-13.5 fLPerforming Lab:see noteML - [facility] LBTroponin I High Sensitivity Reviewed date:05/13/2025 08:34:21 PM Interpretation: Performing Lab: Notes/Report: [facility] ,Troponin I High Smsdpklxmor14.24.0-51.3 pg/mL CUT-OFF POINTS HAVE BEEN ESTABLISHED BASED ON THE FOURTH UNIVERSAL DEFINITION OF MYOCARDIAL INFARCTION. THE UPPER REFERENCE LIMIT (URL) OF TROPONIN, DEFINED THE 99TH PERCENTILE OF cTnI DISTRIBUTION IN A REFERENCE POPULATION, HAS BEEN CONFIRMED THE DECISION THRESHOLD FOR FL DIAGNOSIS. 99TH PERCENTILE = 51.4 PG/ML NOTE: HIGH-SENSITIVITY TROPONIN ASSAY IS NOT INTENDED TO BE USED IN ISOLATION BUT SHOULD BE INTERPRETED IN CONJUNCTION WITH OTHER DIAGNOSTIC AND CLINICAL INFORMATION. Performing Lab:see noteML - [facility] LBECG 12 lead Reviewed date:05/13/2025 08:34:21 PM Interpretation: Performing Lab: Notes/Report: Source Facility: [place] [address] Electrocardiograph Report Signed Patient: ESCOBAR NASH MR#: [id number] : 1980 Acct:[id number] Age/Sex: 45 / F ADM Date: 05/12/25 Loc: MS 213-[address]: Caio George M.D. Ordering Physician: Caio George M.D. 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 Measurements Intervals [place] Rate: 75 P: 59 HI: 168 QRS: 9 QRSD: 83 T: 9 QT: 385 QTc: 433 Interpretive Statements SINUS RHYTHM Normal ECG Compared to ECG 05/12/2025 13:45:15 No significant changes Electronically Signed On 05-13-2025 11:11:16 EDT by KINGA BREEN M.D. Dictated By: KINGA BREEN Signed By: 05/13/25 1111 DD/ 1040 TD/TT: Geological Technical Officer:XR chest 1V Reviewed date:05/13/2025 08:34:21 PM Interpretation: Performing Lab: Notes/Report: Source Facility: [place] [address] XRay Report Signed Patient: ESCOBAR NASH MR#: [id number] : 1980 Acct:[id number] Age/Sex: 45 / F ADM Date: 05/12/25 Loc: ER Attending Dr: Ordering Physician: Bibiana Crespo M.D. Date of Service: 05/12/25 Procedure(s): XR chest 1V Accession Number(s): [id number] cc: Feli Wolf M.D.; Bibiana Crespo M.D. [place] [address] Patient Name: ESCOBAR NASH MRN: [id number] date: 1980 Sex: F Assigned Patient Location: ER Current Patient Location: ED.MAIN Accession/Order Number: [id number] Exam Date: 05/12/2025 15:02 Report Date: 05/12/2025 15:40 At the request of: BIBIANA CRESPO MD Procedure: XR chest 1V PA CHEST: CLINICAL HISTORY: CP COMPARISON: 08/09/2023 Unremarkable cardiomediastinal silhouette. Lungs are clear. No effusion or pneumothorax. XR/XR chest 1V IMPRESSION: Negative for acute pleural-parenchymal disease. Impression dictated by: Magdaleno Temple M.D. 05/12/2025 3:40 PM Dictation Location: [place] [address] Electronically authenticated by: [id number] Y Date: 05/12/2025 15:40 Dictated By: Magdaleno Temple M.D. Signed By: 05/12/25 1543 DD/ 1540 TD/TT: Geological Technical Officer:ECG 12 lead Reviewed date:05/13/2025 08:34:21 PM Interpretation: Performing Lab: Notes/Report: Source Facility: [place] [address] Electrocardiograph Report Signed Patient: ESCOBAR NASH MR#: [id number] : 1980 Acct:[id number] Age/Sex: 45 / F ADM Date: 05/12/25 Loc: ER Attending Dr: Ordering Physician: Bibiana Crespo M.D. 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 Measurements Intervals [place] Rate: 87 P: 58 HI: 150 QRS: 26 QRSD: 74 T: 15 QT: 374 QTc: 418 Interpretive Statements 1100 Sinus rhythm 8102 Low QRS voltage in chest leads 9120 atypical ECG Compared to ECG 08/09/2023 17:50:46 No significant changes Electronically Signed On 05-12-2025 14:45:29 EDT by KINGA BREEN M.D. Dictated By: KINGA BREEN Signed By: 05/12/25 1446 DD/ 1345 TD/TT: Geological Technical Officer:MM tomosynthesis screening BI Reviewed date:02/22/2025 05:02:13 PM Interpretation: Performing Lab: Notes/Report: Source Facility: [facility] [place] [address] [place] [id number] Mammography Report Signed Patient: ESCOBAR NASH MR#: [id number] : 1980 Acct:[id number] Age/Sex: 45 / F ADM Date: 02/22/25 Loc: MAMMO Attending Dr: Feli Wolf M.D. Ordering Physician: Feli Wolf M.D. Results: Date of Service: 02/22/25 Follow Up: Procedure(s): MM tomosynthesis screening BI Accession Number(s): [id number] cc: Feli Wolf M.D. Patient Name: ESCOBAR NASH MR#: [id number] : 1980 Exam Date: 02/22/2025 Ordering Doctor: DR FELI WOLF . RADIOLOGY REPORT PROCEDURE: MM TOMOSYNTHESIS SCREENING BI COMPARISON: None. INDICATIONS: Screening Calculator Name NCI Breast Cancer Risk Assessment Tool 5 Year Breast Cancer Risk 1.30% Lifetime Breast Cancer Risk 13.80% Personal Breast Cancer No Personal Ovarian Cancer No Treatments None Family Cancers Mother with lung cancer at age 51. LOCATION: [facility] BREAST COMPOSITION: There are scattered areas of [...] Signed By: 02/22/25 1630 DD/ 1629 TD/TT: Geological Technical Officer:JOEY Reviewed date:02/15/2025 06:11:00 PM Interpretation: Performing Lab: Notes/Report: [facility] ,Iron62.050.0-170.0 ug/dLPerforming Lab:see noteML - [facility] LB GLYCOHEMOGLOBIN A1C Reviewed date:02/15/2025 06:11:00 PM Interpretation: Performing Lab: Notes/Report: [facility] ,Glycohemoglobin A1C11.94.5-6.2 % ADA RECOMMENDED LIMIT 4.0 - 6.0 ADA THERAPEUTIC TARGET < 7.0 ACTION SUGGESTED > 7.0 Estimated Average Wftrmpa683Aadguqqwma Lab:see noteML - [facility] LB CBC AUTO DIFF Reviewed date:02/15/2025 06:11:00 PM Interpretation: Performing Lab: Notes/Report: [facility] ,White Blood Count7.14.0-11.0 10 3/uLRed Blood Count5.234.20-5.40 10 6/uL Knwlaecirt97.012.0-16.0 g/aSUqxkxlltua06.736.0-48.0 %Mean Corpuscular Qgylfh17.7 81.0-99.0 fLMean Corpuscular Xqgazssqls64.726.7-34.0 pgMean Corpuscular HGB Conc 36.029.9-35.2 g/dLRed Cell Distribution Width12.611.0-15.0 %Platelet Xflou140 150-450 10 3/uLMean Platelet Hjepgd61.39.5-13.5 fLNeutrophils Percent Auto53.3 43.0-75.0 %Lymphocytes Percent Auto38.820.5-60.0 %Monocytes Percent Auto5.61.7- 12.0 %Eosinophils Percent Auto1.30.9-7.0 %Basophils Percent Auto0.70.2-2.0 % Immature Granulocytes Pct Auto0.30.0-0.5 %Neutrophils Absolute Auto3.81.4-6.5 10 3/uLLymphocytes Absolute Auto2.81.2-3.8 10 3/uLMonocytes Absolute Auto0.40.3-0.8 10 3/uLEosinophils Absolute Auto0.10.0-0.7 10 3/uLBasophils Absolute Auto0.10.0- 0.1 10 3/uLImmature Granulocytes Abs Auto0.020.00-0.03 10 3/uLPerforming Lab:see noteML - [facility] LBIGP,Aptima HPV,Age Gdln Reviewed date:01/11/2025 06:44:39 PM Interpretation: Performing Lab: Notes/Report: BRUSH-SPATULA CERVIX ENDOCERVIX [facility] ,Age Gdln ACOG TestingNote. TESTS RESULT FLAG UNITS REF RANGE LAB Clinician Provided Cytology Information Source.............Cervix;Endocervix No. of containers..01 ThinPrep Vial Age Algo ACOG Lory... 30 FLAG LEGEND: L-Low Normal,H-High Normal,LL-Alert Low,HH-Alert High <-Panic Low,>-Panic High,A-Abnormal,AA-Critical Abnormal Performed at: 01 =G [facility] [address] Lucy Carbajal MD, IGP, Aptima HPV, rfx 16/18,45Note. TESTS RESULT FLAG UNITS REF RANGE LAB DIAGNOSIS: 02 NEGATIVE FOR INTRAEPITHELIAL LESION OR MALIGNANCY. Specimen adequacy: 02 Satisfactory for evaluation. Endocervical and/or squamous metaplastic cells (endocervical component) are present. Performed by: 02 Genoveva Rhodes, Tariff Expert ([facility]) . 02 Note: Note 02 The [...] <-Panic Low,>-Panic High,A-Abnormal,AA-Critical Abnormal Performed at: [address] [address] Lucy Carbajal MD, HPV AptimaNegativeNegative This nucleic acid amplification test detects fourteen high- risk HPV types (16,18,31,33,35,39,45,51,52,56,58,59,66,68) without differentiation. Performed at: [address] [id number] Straightening Machine Feeder: Lucy Carbajal MD, Phone: [phone] Performed at: [address] [id number] Straightening Machine Feeder: Lucy Carbajal MD, Phone: [phone] Performing Lab:see noteSt. [facility] PrinevilleCA echo doppler complete Reviewed date:05/14/2025 02:02:15 PM Interpretation: Performing Lab: Notes/Report: Source Facility: [place] [address] [place] [id number] Cardiology Report Signed Patient: ESCOBAR NASH MR#: [id number] : 1980 Acct:[id number] Age/Sex: 45 / F ADM Date: 05/12/25 Loc: 213-[address]: Caio George M.D. Ordering Physician: Caio George M.D. Date of Service: 05/14/25 Procedure(s): CA echo doppler complete Accession Number(s): [id number] cc: Feli Wolf M.D.; Caio George M.D. Patient Name: ESCOBAR NASH MR#: [id number] : 1980 Exam Date: 05/14/2025 Ordering Doctor: [...] BREEN Signed By: 05/14/251313 DD/ 12 TD/TT: Geological Technical Officer: Reason For Referral Reason Wound clinic Diagnosis 1 Diabetic foot ulcer (250.80) Referral Organization [facility] Medicine Referring Provider First Name Phillip Referring Provider Last Name Luciano Referring Provider Speciality Family Med icine Referred Provider [facility] Referred Provider Specialty Clinic or [facility] Referral Priority Routine Medications Medication SIG (Take, Route, Frequency, Duration) Notes Start Date End Date Status Insulin Aspart FlexPen 100 UNIT/ML 60 U Subcutan eous BID; Duration: 30 days 5ActiveIbuprofen 800 MG1 tablet with food or milk as needed Orally every 8 hrs5ActiveGlucose Meter Test -machien and strips and lancets In Vitro tidneeds machine to match jqycsl015ActiveCitalopram Hydrobromide 20 MG1 tablet Orally Once a day; Duration: 30 daysActiveInsulin Syringe 31G X 16 1 MLUse 1 syringe to drawn insulin TID; Duration: 90 days5Active NovoLOG 100 UNIT/MLInject Injection 5 units for every 50 over 150- max dose 60U per day; Duration: 50 daysActiveLisinopril 20 MG1 tablet Orally Once a day; Duration: 30 daysActiveBrilinta 90 MG1 tablet Orally Twice a day; Duration: 30 days5ActiveAtorvastatin Calcium 80 MGTAKE 1 TABLET BY MOUTH ONCE DAILY Oral Once a day; Duration: 30 daysActiveTricor 145 MG1 tablet Orally Once a day; Duration: 30 days5ActiveAspirin Adult Low Dose 81 MG1 tablet Orally Once a day; Duration: 30 daysActiveReglan 10 MG1 tablet before meals Orally four times daily; Duration: 30 daysActivePen Palisade 12/15 31G X 8 MMas directed Active Social History Tobacco Use: Social History Observation Description Date Details (start date - stop date) Never Smoker NA - NA Tobacco Use/Smoking Question Answer Notes Patient is a nonsmoker Alcohol Screen (Audit-C) Question Answer Notes Did you have a drink containing alcohol in the p ast year? No Iuzwfa3KemmgutezritoiXsbljiquOZJTT-M (Standard) Question Answer Notes Did you have a drink containing alcohol in the p ast year? No Lumtpo5DhmcmkcbnwteujPxcudqer Problems Problem Type SNOMED Code ICD Code Onset Dates Problem Status W/U Status Risk Notes Problem Foot ulcer due to ty pe 2 diabetes mellitus (7862062364931) Type 2 diabetes mellitus with foot ulcer (E11.621) ActiveconfirmedProblemNasal congestion (19365129)Nasal congestion (R09.81)Active confirmedProblemChest pain (92250858)Chest pain (R07.9)ActiveconfirmedProblem Shoulder pain (80316298)Shoulder pain (M25.519)ActiveconfirmedProblemWell adult (831953015)Well adult (Z00.00)ActiveconfirmedProblemShingles (1597870)Shingles (B02.9)ActiveconfirmedProblemDiabetic foot (121551261)Diabetic foot (E11.8) ActiveconfirmedProblemOtitis externa (4781316)Otitis externa (H60.90)Active confirmedProblemAcute myocardial infarction (85236732)Acute FL (I21.3)Active confirmedProblemChronic ulcer of right heel (29008336177630084)Chronic ulcer of right heel (L97.419)ActiveconfirmedProblemAcute sinusitis (96938531)Acute non- recurrent sinusitis, unspecified location (J01.90)ActiveconfirmedProblemDiabetes mellitus (99791432)Diabetes mellitus (E11.9)ActiveconfirmedProblemDiabetic foot ulcer (821565681)Diabetic foot ulcer (250.80)Activeconfirmed Vital Signs Temperature 98.7 degrees Fahrenheit 10/26/2024 Blood pressure pbdalyydu22 mm Hg05/21/20256303Mhnihc98 in05/21/2025lood pressure xqjfexqn254 mm Hg05/21/20259174Xvmrfl548 lbs1MI28.62 kg/m205/21/2025 Encounters Encounter Location Date Provider Diagnosis [facility] [address] [place] [place] [address] 08/25/2024 Phillip [facility] [facility] [place] [place] [address] 09/01/2024Doug [facility] [facility] [place] [address]/05/2025Doug [facility] [facility] [place] [address]/Doug HoyDiabetes mellitus E11.9BSt. [facility] [facility] [place] [address]/ Phillip [facility] [facility] [place] [address]/Doug [facility] [facility] [place] [address]/Doug HoyWell adult Z00.00 and Diabetes mellitus E11.9BSt. [facility] [facility] [place] [address]/Doug [facility] [place] [facility] [place] [place] [address]/Doug [facility] [facility] [place] [place] [address]/Doug [facility] [place] [place] [place] [address]/Doug [facility] [place] [place] [address]/ Phillip HoyAcute non-recurrent sinusitis, unspecified location J01.90 and Nasal congestion R09.81[facility] [place] [place] [place] [address]/Doug HoyDiabetic foot ulcer 250.80 and Diabetic foot E11.8BSt. [facility] [place] [place] [place] [address] 09/18/2024Doug HoyDiabetes mellitus E11.9BMatthew [place] [address] [place] [place] [place] [address]/Doug HoyAcute bronchitis, unspecified organism J20.9BMatthew [place] [address] [place] [address]/Doug HoyWell adult Z00.00Bu[address] [address]/06/2025Doug HoyAcute non-recurrent sinusitis, unspecified location J01.90 ; Nasal congestion R09.81 and Type 2 diabetes mellitus with foot ulcer E11.621B[address] [address]/Doug HoyChest pain R07.9B[address] [address]/oug HoyShingles B02.9 and Otitis externa H60.[address] [place] [address]/ Phillip HoyAcute non-recurrent sinusitis, unspecified location J01.90 ; Nasal congestion R09.81 and Shing[address] B02.[address] [address]/Doug HoyDiabetic foot ulcer 250.80 Assessments Encounter Date Diagnosis (ICD Code) Assessment Notes Treatment Notes Treatment Clinical Notes Section Notes 06/19/2024 Acute non-recurrent sinusitis, unspecified location (ICD-10 - J01.90) Rest and drink more liquids, especially water. You may use a humidifier or vaporizer to help keep the drainage moist. Jkyn-ddg-ahfllff Nasal Saline may help the stuffy and runny nose. Use Ibuprofen and or Tylenol as needed for fever, chills, body aches or pain. Children 5 years old should not be given zzsm-uno-llhehqe cough and cold medications such as guaifenesin and dextromethorphan. If you're over age 5, you may try enux-zrl-ecjfism cold medications such as guaifenesin and dextromethorphan, or multi-symptom cold reliever such as Dayquil to help reduce the symptoms. Antibiotics have been pre scribed. You should take these until completed and follow the directions. Antibiotics can sometimescause upset stomach, and in rare cases, serious allergic reactions or serious gastrointestinal problems. If you start having severe abdominal pain, severe vomiting, or bloody diarrhea, you should be r eevaluated by your physician or urgent care immediately. Follow up with your Primary Care Provider or return to clinic if symptoms do not improve within 3-5 days07/10/2024Shingles (ICD-10 - B02.9)07/10/2024Otitis externa (ICD-10 - H60.90)08/18/2024ute non-recurrent sinusitis, unspecified location (ICD-10 - J01.90)Rest and drink more liquids, especially water. You may use a humidifier or vaporizer to help keep the drainage moist. Rcuq-qzc-uuejhog Nasal Saline may help the stuffy and runny nose. Use Ibuprofen and or Tylenol as needed for fever, chills, body aches or pain. Children 5 years old should not be given yojl-hcb-imqlfvv cough and cold medications such as guaifenesin and dextromethorphan. If you're over age 5, you may try fmmz-ixo-knlgjdy cold medications such as guaifenesin and dextromethorphan, or multi-symptom cold reliever such as Dayquil to help reduce the symptoms. Antibiotics have been pre scribed. You should take these until completed and follow the directions. Antibiotics can sometimescause upset stomach, and in rare cases, serious allergic reactions or serious gastrointestinal problems. If you start having severe abdominal pain, severe vomiting, or bloody diarrhea, you should be r eevaluated by your physician or urgent care immediately. Follow up with your Primary Care Provider or return to clinic if symptoms do not improve within 3-5 days08/18/2024Nasal congestion (ICD-10 - R09.81)08/21/2024Diabetic foot ulcer (ICD9-CM - 250.80)08/31/2024Diabetic foot ulcer (ICD9-CM - 250.80)08/31/2024 Diabetic foot (ICD-10 - E11.8)09/18/2024Diabetes mellitus (ICD-10 - E11.9) 5Acute bronchitis, unspecified organism (ICD-10 - J20.9)Rest and drink more liquids, especially water. You may use a humidifier or vaporizer to help keep the drainage moist. Aakb-pli-ontofuh Nasal Saline may help the stuffy and runny nose. Use Ibuprofen and or Tylenol as needed for fever, chills, body aches or pain. Children 5 years old should not be given jcpa-tht-dmknpke cough and cold medications such as guaifenesin and dextromethorphan. If you're over age 5, you may try tcrh-qsx-uacbkwt cold medications such as guaifenesin and dextromethorphan, or multi-symptom cold reliever such as Dayquil to help reduce the symptoms. Antibiotics have been prescribed. You should take these until completed and follow the directions. Antibiotics can sometimescause upset stomach, and in rare cases, serious [...] go to the emergency room or call [phone] adult (ICD-10 - Z00.00)5Acute non-recurrent sinusitis, unspecified location (ICD-10 - J01.90)Rest and drink more liquids, especially water. You may use a humidifier or vaporizer to help keep the drainage moist. Qlkb-pri-ymthpqx Nasal Saline may help the stuffy and runny nose. Use Ibuprofen and or Tylenol as needed for fever, chills, body aches or pain. Children 5 years old should not be given khhx-tyu-tnovtdd cough and cold medications such as guaifenesin and dextromethorphan. If you're over age 5, you may try oall-jzb-yubytnt cold medications such as guaifenesin and dextromethorphan, or multi-symptom cold reliever such as Dayquil to help reduce the symptoms. Antibiotics have been pre scribed. You should take these until completed and follow the directions. Antibiotics can sometimescause upset stomach, and in rare cases, serious allergic reactions or serious gastrointestinal problems. If you start having severe abdominal pain, severe vomiting, or bloody diarrhea, you should be r eevaluated by your physician or urgent care immediately. Follow up with your Primary Care Provider or return to clinic if symptoms do not improve within 3-5 days05/21/2025hest pain (ICD-10 - R07.9)09/19/2024Diabetes mellitus (ICD-10 - E11.9)02/14/2025Well adult (ICD-10 - Z00.00)02/14/2025Diabetes mellitus (ICD-10 - E11.9)04/12/2025Nasal congestion (ICD-10 - R09.81)04/12/2025Type 2 diabetes mellitus with foot ulcer (ICD-10 - E11.621)Bumping up to 60 U BID08/18/2024 Shingles (ICD-10 - B02.9)06/19/2024Nasal congestion (ICD-10 - R09.81) Plan Of Treatment [...] [employer] [place] [employer]ICA[employer] [address] [place] [address] [id number] Bon Nash - patient is the hjuklvf05 2023 Medical (General) History Medical History History ICD Code Diabetes mellitus E11.9 Miscarriage 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
--- OUTSIDE RECORDS SUMMARY | 2025-06-18 07:57 | XMS_ITS | Clinical Summary ---
Author Organization [facility] Address [address] [place] [address] Care Team Providers Care Fitness Instructor Name Role Phone Gentry Wolf MD Primary Care Provider [phone] Allergies Active AllergyReactionsCriticalityNoted DateCommentsPenicillinsHives,Other 05/26/2019 Medications MedicationSigDispense QuantityRefillsLast FilledStart DateEnd DateStatus aspirin 81 mg EC tablet Take 81 mg by mouth in the morning.01/23/2023ctive atorvastatin (Lipitor) 80 mg tablet Take 80 mg by mouth at bedtime.01/23/2023ctive cetirizine (ZyrTEC) 10 mg tablet Take 10 mg by mouth in the morning.10/19/2022ctive citalopram (CeleXA) 20 mg tablet Take 20 mg by mouth in the morning.10/19/2022ctive glimepiride (Amaryl) 4 mg tablet Take 4 mg by mouth in the morning.10/19/2022ctive Lantus Solostar U-100 Insulin 100 unit/mL (3 mL) pen INJECT 20 UNITS SUBCUTANEOUSLY EVERY NIGHT10/19/2022ctive insulin glargine (Basaglar KwikPen U-100 Insulin) 100 unit/mL (3 mL) pen Inject 20 units Subcutaneous every eveningActive lisinopril 20 mg tablet Take 20 mg by mouth in the morning.10/19/2022ctive metFORMIN (Glucophage) 500 mg tablet Take 500 mg by mouth in the morning and at bedtime.10/19/2022ctive metoprolol tartrate (Lopressor) 25 mg tablet Take 25 mg by mouth in the morning and at bedtime.01/23/2023ctive metoclopramide (Reglan) 10 mg tablet 1 tablet before meals Orally four times dailyActive nitroglycerin (Nitrostat) 0.[address] 1 tablet under the tongue if needed every 5 minutes for chapincito... (REFER TO PRESCRIPTION NOTES).01/23/2023ctive Brilinta 90 mg tablet Take 90 mg by mouth in the morning and at bedtime.01/25/2023ctive Active Problems ProblemNoted DateDiagnosed DateAcute myocardial infywpmnte57 Chronic hypertension complicating or reason for care during , first oeowbxuoj04History of unexplained vhexvwytmk31/21/2019 02/05/2023Type 2 diabetes mellitus complicating in first trimester, penmzfmhxr23 Encounters DateTypeDepartmentCare JclfIjubhaledxz67/13/2025Orders Only [facility] [place] [address] [place] [address] Cait Crowell MA Other chest pain (Primary Dx)from Last 3 Months Family History Medical HistoryRelationNameCommentsCoronary artery diseaseFatherDiabetesFather Kidney diseaseFatherRelationNameStatusCommentsFatherDeceased Social History Tobacco UseTypesPacks/DayYears UsedDateSmoking Tobacco: NeverSmokeless Tobacco: Never Tobacco Cessation:Counseling Given: Not Answered Alcohol UseStandard Drinks/WeekCommentsYes0 (1 standard drink = 0.6 oz pure alcohol)sociallyUT Safety & EnvironmentAnswerDate RecordedFear of Current or Ex-PartnerNot on file09/24/2023Emotionally AbusedNot on file09/24/2023hysically AbusedNot on file09/24/2023Sexually AbusedNot on file09/24/2023hysically or Sexually AbusedNot on file09/24/2023CommentsUnknownSex and Gender InformationValueDate RecordedSex Assigned at UvgjbTzjbde21/07/2025 9:49 AM EST Legal YksKmdmiu63/06/2023 10:00 AM EDTGender DyzhfafmHbprqt70/07/2025 9:49 AM ESTSexual OrientationHeterosexual or Jykfzbuu38/07/2025 9:49 AM EST Last Filed Vital Signs Vital SignReadingTime TakenCommentsBlood Qsmjfzxe493/8707 11:45 AM EDT Zwcxo91188/07/2023 11:45 AM EDTTemperature--Respiratory Rate--Oxygen Saturation 97%02/05/2023 11:45 AM EDTInhaled Oxygen Concentration--Cjdpwc63.5 kg (184 lb) 02/05/2023 11:45 AM TDUYncppm744.1 cm (5' 5 )02/05/2023 11:45 AM EDTBody Mass Index30.6207 11:45 AM EDT Plan of Treatment DateTypeDepartmentCare Team (Latest Contact Info)Ydrwfrbkfej83/01/2025 3:00 PM ESTOffice Visit [facility] [address] [place] [address] Bruce Chapa MD [address] [place] [address] Health MaintenanceDue DateLast DoneCommentsCT Hcdwllornton1978Colonoscopy 1978Colorectal Cancer Zptmavxfk1978Diabetes: Hemoglobin A1C 1978FIT-DNA1978FIT1978FOBT1978 4933Jdnjmbnxdgvsw1978 Diabetes: Retinopathy Rcxkheugb19/21/1988Depression Xxmiiwecz33/21/1990Diabetes: Urine Protein Schkzktja62/21/1997Hepatitis B Vaccines (1 of 3 - 19+ 3-dose series)1997Adult Xovwryy0001/21/2000HPV/Xomfrd0801/21/20089747Vpqmdeuac20/21/2018 COVID-19 Vaccine (2 - 2024- season)/ervical Cancer Mitoauehk42/09/2028Pap Smear806/04/2025Zoster Vaccines (1 of 2) 01/21/2028Influenza RsoxhzoLvxaanytr90/12/2025Pneumococcal Vaccine: Pediatrics (0 to 5 Years) and At-Risk Patients (6 to 64 Years)Pywrwpjfl70/12/2025HIB VaccinesAged OutNo longer eligible based on patient's age to complete this topic HPV VaccinesAged OutNo longer eligible based on patient's age to complete this topicIPV VaccinesAged OutNo longer eligible based on patient's age to complete this topicMeningococcal B VaccineAged OutNo longer eligible based on patient's age to complete this topicMeningococcal VaccineAged OutNo longer eligible based on patient's age to complete this topicRotavirus VaccinesAged OutNo longer eligible based on patient's age to complete this topic Insurance Care Teams Team MemberRelationshipSpecialtyStart DateEnd Gentry Wolf MD [address] [facility] [address] [address] PCP - [facility]02/04/23
--- OUTSIDE RECORDS SUMMARY | 2025-06-18 07:57 | XMS_ITS | Clinical Summary ---
Author Organization [facility] Address [address], [address] [place] [address] Care Team Providers Care Ornamental Metalwork Designer Name Role Phone Gentry Wolf MD Primary Care Provider [phone] Allergies Active AllergyReactionsCriticalityNoted NypuTtjkuthkXufqzzsnfxv48/08/2024 Medications MedicationSigDispense QuantityRefillsLast FilledStart DateEnd DateStatus aspirin 81 MG chewable tablet Take 1 tablet by mouth dailyActive citalopram (CELEXA) 20 MG tablet Take 1 tablet by mouth dailyActive lisinopril (PRINIVIL;ZESTRIL) 20 MG tablet Take 1 tablet by mouth dailyActive cetirizine (ZYRTEC) 10 MG tablet Take 1 tablet by mouth dailyActive glimepiride (AMARYL) 4 MG tablet Take 1 tablet by mouth every morning (before breakfast)Active metoprolol tartrate (LOPRESSOR) 25 MG tablet Take 1 tablet by mouth 2 times dailyActive ticagrelor (BRILINTA) 90 MG TABS tablet Take 1 tablet by mouth 2 times dailyActive fluticasone (FLONASE) 50 MCG/ACT nasal spray 1 spray by Each Nostril route daily as needed for RhinitisActive hydrOXYzine HCl (ATARAX) 25 MG tablet Take 1 tablet by mouth 2 times daily as needed for ItchingActive atorvastatin (LIPITOR) 80 MG tablet Take 1 tablet by mouth daily Please hold for the time you are taking antiviral 30 tablet 07/09/2024ctive naproxen (NAPROSYN) 375 MG tablet Take 1 tablet by mouth 2 times daily as needed for Pain 20 tablet 07/09/2024ctive labetalol (NORMODYNE) 200 MG tablet Take 1.5 tablets by mouth 3 times dailyActive Insulin Glargine (BASAGLAR KWIKPEN SC) Inject 30 Units into the skin at bedtimeActive acetaminophen (TYLENOL) 500 MG tablet Take 1 tablet by mouth 4 times daily as needed for Pain 360 tablet tive Social History Tobacco UseTypesPacks/DayYears UsedDateSmoking Tobacco: NeverPassive Smoke Exposure: NeverSmokeless Tobacco: Never Tobacco Cessation:Counseling Given: Not Answered Alcohol UseStandard Drinks/WeekCommentsNever0 (1 standard drink = 0.6 oz pure alcohol)AUDIT-CAnswerDate RecordedQ1: How often do you have a drink containing alcohol?Never10/04/2024Q2: How many drinks containing alcohol do you have on a typical day when you are drinking?Patient does not drink10/04/2024Q3: How often do you have six or more drinks on one occasion?Never10/04/2024Interpersonal Safety Domain Source: IP Abuse ScreeningAnswerDate RecordedPhysical abuseDenies 07/09/2024Verbal glsfuKziiti61/08/2024Emotional mglkzQxrdsy35/08/2024Financial phvrsRortqq92/08/2024Sexual pnmcnOkfnbr86/08/2024CommentsNoSex and Gender InformationValueDate RecordedSex Assigned at JjdqmKwnfoi53/08/2024 8:34 AM ESTLegal JniDgojvq00/08/2024 8:28 AM ESTGender WfgyxlmrNodufz01/08/2024 8:34 AM ESTSexual OrientationNot on file Last Filed Vital Signs Vital SignReadingTime TakenCommentsBlood Pjrzcswi826/9210/04/2024 7:29 AM EST Hdonm06023/05/2025 7:29 AM IHVBqabmefvlyr84.8 ??C (98.2 ??F)10/04/2024 7:29 AM ESTRespiratory Hzpe188310/04/2024 7:29 AM ESTOxygen Rbkkffkqdr37%10/04/2024 7:29 AM ESTInhaled Oxygen Concentration--Ysxzrb09 kg (172 lb)10/04/2024 7:29 AM EST Aplwxx317.1 cm (5' 5 )10/04/2024 7:29 AM ESTBody Mass Index28.62010/04/2024 7:29 AM EST Plan of Treatment Health MaintenanceDue DateLast DoneCommentsDTaP/Tdap/Td vaccine (1 - Tdap) 1997Flu vaccine (#1)5COVID-19 Vaccine ( - 2023- season) 2025Polio vaccineAged OutNo longer eligible based on patient's age to complete this topic Insurance Care Teams Team MemberRelationshipSpecialtyStart DateEnd Gentry Wolf MD [address] [place] [address] PCP - GeneralFamily Nsgqfzjg75/8/24
--- OUTSIDE RECORDS SUMMARY | 2025-06-18 07:57 | XMS_ITS | Clinical Summary ---
Author Organization [facility] Address [id number] [address] [place] [address] Care Team Providers Care Coal Dumping Equipment Operator Name Role Phone Gentry Wolf MD Primary Care Provider +- Allergies Active AllergyReactionsCriticalityNoted MxcqIrrbzpseBepyldektjuXlnfh46/25/2019 Medications MedicationSigDispense QuantityRefillsLast FilledStart DateEnd DateStatus labetalol (NORMODYNE) 200 mg tablet Take 300 mg by mouth 3 (three) times a day. Active aspirin 81 mg Take 81 mg by mouth daily.Active PNV 511-AQRF-RYHJRZ 1-DSS-DHA ORAL Take 1 tablet by mouth Daily at 0700.Active blood-glucose meter misc Indications:Pre-existing type 2 diabetes mellitus in in first trimesterOne Touch Verio Flex Meter. Use to test blood sugars 4-5 times per day 1 each 05/29/2019Active lancets (ONETOUCH DELICA LANCETS) 33 gauge misc Indications:Pre-existing type 2 diabetes mellitus in in first bhabswcjz99 gauge Delica Lancets, use 1 lancet to test blood sugars 4-5 times per day 100 each 10109/07/2018Active insulin syringe-needle U-100 0.3 mL 31 gauge x 5/16 syringe Indications:Pre-existing type 2 diabetes mellitus during in second trimesterUse 4 syringes daily. 100 each Active cetirizine (ZyrTEC) 10 mg tablet Take 10 mg by mouth daily.Active insulin lispro (ADMELOG U-100 INSULIN LISPRO) 100 unit/mL injection Indications:Pre-existing type 2 diabetes mellitus during in second trimesterInject 6 units sq 15 minutes before breakfast, 9 units sq 15 minutes before lunch and 18 units sq 15 mins before supper 1 [address]011/09/2019Active insulin NPH (HumuLIN N,NovoLIN N) 100 unit/mL injection Indications:Pre-existing type 2 diabetes mellitus during in second trimesterInject SQ as directed 20 units daily at bedtime 1 pen 8011/09/2019Active blood sugar diagnostic strip Indications:Pre-existing type 2 diabetes mellitus in in first trimesterBlood sugar strips for One Touch Verio Flex Meter, use 1 strip to test blood sugars 4-5 times per day 150 strip ctive pen needle, diabetic (BD ULTRA-FINE SHORT PEN NEEDLE) 31 gauge x 5/16 needle Indications:Pre-existing type 2 diabetes mellitus in in first trimesterUSE DIRECTED WITH BASAGLAR ONCE A DAY 100 each 1001Active Active Problems ProblemNoted DateDiagnosed DateHistory of unexplained zbookwehjn14/21/2019 Chronic hypertension complicating or reason for care during , first /21/2019Type 2 diabetes mellitus complicating in first trimester, rjuwmtmvjm91/21/2019 Family History Medical HistoryRelationNameCommentsDiabetesFatherHyperlipidemiaFather HypertensionFatherHeart diseaseMaternal GrandfatherAlzheimer's diseaseMaternal GrandmotherDiabetesMaternal GrandmotherHypertensionMaternal GrandmotherCancer MotherHeart diseasePaternal GrandfatherCancerPaternal GrandmotherHypertension Paternal GrandmotherRelationNameStatusCommentsFatherAliveMaternal Grandfather DeceasedMaternal GrandmotherDeceasedMotherDeceasedPaternal GrandfatherDeceased Paternal GrandmotherDeceased Social History Tobacco UseTypesPacks/DayYears UsedDateSmoking Tobacco: NeverSmokeless Tobacco: NeverChildcareAnswerDate MpbrotveTzawflchfVtgjibe26/21/2019EmploymentAnswerDate BtjsidroXvorbtggouPpvejqm10/21/2019Purpose - LifeAnswerDate RecordedPurpose and direction in wvowRycaeqx42/22/2021CommentsNoSex and Gender Information ValueDate RecordedSex Assigned at BirthNot on fileLegal PzkYudobx55/21/2019 11:32 AM EDTGender IdentityNot on fileSexual OrientationNot on file Last Filed Vital Signs Vital SignReadingTime TakenCommentsBlood Sdlgsryt906/7310/03/2019 1:31 PM EST Ijjwk043110/03/2019 1:31 PM ESTTemperature--Respiratory Rate--Oxygen Saturation-- Inhaled Oxygen Concentration--Vdrbbz954 kg (222 lb 10.6 oz)10/03/2019 1:31 PM XTFHufrel721.6 cm (5' 4 )10/03/2019 1:31 PM ESTBody Mass Index38.22010/03/2019 1:31 PM EST Plan of Treatment Health MaintenanceDue DateLast DoneCommentsDiabetic Ophthalmology Exam1978 Statin Use: Isirxexf1978Depression Xixwezmrk92/21/1990Tobacco Screening 1990Adult BMI Orwzsocrz02/21/1996Diabetic Foot Exam01/21/1996DTaP,Tdap and Td Vaccines (1 - Tdap)1997Pap Smear1999Influenza Wxxdchx8904/02/2025 Medical Devices Not on file Insurance Care Teams Team MemberRelationshipSpecialtyStart Gentry Wolf MD PCP - GeneralFamily Atgusqrg25/21/19
--- NOTE | 2025-06-18 09:31 | PC.NURSE ---
Nursing Note Cardiac Stress Test Reviewed: Medication, allergies and patient history reviewed. Stress Test: [x ] Patient tolerated stress test well. [ ] Patient unable to tolerate walking on treadmill. Switched to Lexiscan stress test. [x ] No chest pain noted per patient [ ] Chest pain that resolved prior to leaving stress lab. [x ] No dyspnea noted. [ ] Dyspnea that resolved prior to leaving stress lab. [x ] Patient left stress lab asymptomatic and hemodynamically stable. [ ] Patient taken to the Emergency Room due to non-resolving symptoms following stress test. [ ] Patient achieved target heart rate. [ ] Patient unable to achieve target heart rate. [ ] Aminophylline administered as reversal agent to Lexiscan (Regadenoson). [ ] Nitro administered. Nursing Comments:Pt had a Lexiscan done. Tolerated well. Pt ambulated to cafeteria for breakfast prior to second set of images.
[2025-06-18] MEDS: REGADENOSON 0.4 MG/5 ML SYRINGE IV (09:56)
--- NOTE | 2025-06-18 16:46 | P.STRESS_ITS ---
Stress Test Stress Test Allergies Allergy/AdvReac Type Severity Reaction Status Date / Time penicillin G AdvReac Intermediate Hives Verified 10/22/24 10:59 Requesting physician: Javan Payne Procedure: Lexiscan nuclear stress test General Information: Reason for Stress Test: [Chest pain and shortness of breath] Cardiac History and Risk Factors: [History of CAD, FL and stent, hypertension, and hyperlipidemia] Resting 12 - Lead Electrocardiogram: Resting twelve-lead EKG showed normal sinus rhythm, heart rate 73 bpm, normal EKG. Resting blood pressure 139/91 mmHg. The patient was injected with Lexiscan 0.4 mg IV and she was monitored for few minutes. Patient did not have any symptoms of chest pain or shortness of breath. Peak heart rate 122 bpm w hich represents 70% of age-predicted maximum heart rate. Peak blood pressure 148/96 mmHg. EKG throughout the test did not show significant T or ST changes. Rare isolated PVCs were noted Stress Test: Protocol: [Lexiscan] Exercise Capacity: [Not applicable] Blood Pressure Response: [Normal] Rhythm: [Rare PVCs] ST - Response: [No ST changes] Patient Response: [No symptoms] Interpretation: Negative Lexiscan EKG stress test for ischemia The nuclear myocardial perfusion stress images result is reported separately Kylah Everett MD, FACC
== END 2025-06-18 07:51 | disposition home or self-care (01) ==
LOC: NM 07:51
PROVIDERS: PCP Family Medicine
DX: R07.89 Other chest pain (principal); R94.8 Abnormal results of function studies of other organs and systems
CPT/HCPCS: 78452; 93017; A9500; J2785

== ENCOUNTER 2025-06-24 22:23 | Emergency (ER) | payer OTHER, SELFPAY ==
--- OUTSIDE RECORDS SUMMARY | 2025-04-24 05:05 | XMS_ITS | Continuity of Care Document ---
Author Organization [facility] Address [address] [place] [phone] Phone Care Team Providers Care Environmental Technology Professor Name Role Phone Priscilla Marlow DDS [...] Procedure Date Nutrit Couns For Control Of [place] Dis Apr Post Op Visit Dental Nutrit Couns For Control Of [place] Dis Mar Extract; Erupted Th/exposted Rt 025 Extract; Erupted Th/exposted Rt 025 Extract; Erupted Th/exposted Rt 025 Extract; Erupted Th/exposted Rt 025 Extract; Erupted Th/exposted Rt 025 Extract; Erupted Th/exposted Rt 025 Extract; Erupted Th/exposted Rt 025 Extract; Erupted Th/exposted Rt 025 Extract; Erupted Th/exposted Rt 025 Extract; Erupted Th/exposted Rt 025 Extract; Erupted Th/exposted Rt 025 Nutrit Couns For Control Of [place] Dis Mar Oral Hygiene Instruction Extraction Surgical/erupt Tooth 025 Extract; Erupted Th/exposted Rt 025 Extract; Erupted Th/exposted Rt 025 Extract; Erupted Th/exposted Rt 025 Extract; Erupted Th/exposted Rt 025 Extract; Erupted Th/exposted Rt 025 Alveoloplasty W/extractions 1 - 3 Teeth Oral Hygiene Instruction Nutrit Couns For Control Of [place] Dis November Extract; Erupted Th/exposted Rt 025 Extract; Erupted Th/exposted Rt 025 Nutrit Couns For Control Of [place] Dis November Comp Oral Eval New/estab Patient 2024 Bitewings Four Films Intraoral-periapical 1st Film Bitewig-single Film Oral Hygiene Instruction Limited Oral Eval Extract; Erupted Th/exposted Rt 025 Intraoral-periapical 1st Film Oral Hygiene Instruction Limited Oral Eval Extract; Erupted Th/exposted Rt 024 Nutrit Couns For Control Of [place] Dis Sep Panoramic Film Intraoral-periapical 1st Film 2 [id number]-zbgvjuufvk-[id number] Additional Sep Mqdtozkbv-gfpapzuamx-hjua Additional Sep Comp Oral Eval New/estab Patient 2021 Oral Hygiene Instruction Intraoral-periapical 1st Film 1 Limited Oral Eval Extract; Erupted Th/exposted Rt 021 Advance Directives Directive Yes / No Effective Date File Name No Information Encounters Encounter Description Practice Location Reason(s) For Visit Diagnoses Date Provider Providers Copied on Encounter [facility], [address] [place] [address], [place], [place], [id number], tel:[phone] [facility] Dental Clinic POV (chief complaint) Encounter for screening for dental disorders Marlow DDS Yixue. [address] [place], [address], [place]. tel:[phone] [facility], [address] [place], [place], [id number], [place] tel:[phone] [facility] ext (chief complaint) Encounter for screening for dental disorders Marlow DDS Yixue. [address] [place], [address], [place]. tel:[phone] [facility], [address] [place], [place], [id number], [place] tel:[phone] [facility] ext (chief complaint) Encounter for screening for dental disorders Marlow DDS Yixue. [address] [place], [address], [place]. tel:[phone] [facility], [address] [place], [place], [id number], [place] tel:[phone] [facility] extraction (chief complaint) Encounter for screening for dental disorders Marlow DDS Yixue. [address] [place], [address], [place]. tel:[phone] [facility], [address] [place], [place], [id number], [place] tel:[phone] [facility] Encounter for screening for dental disorders Marlow DDS Yixue. [address] [place], [address], [place]. tel:[phone] [facility], [address] [place], [place], [id number], [place] tel:[phone] [facility] ext (chief complaint) Encounter for screening for dental disorders Marlow DDS Yixue. [address] [place], [address], [place]. tel:[phone] [facility], [address] [place], [place], [id number], [place] tel:[phone] [facility] DN (chief complaint) Encounter for screening for dental disorders Kashmir DDS Gabyxue. [address] [place], [address], [place]. tel:[phone] [facility], [address] [place], [place], [id number], [place] tel:[phone] [facility] Dental Clinic dental limited (chief complaint) Encounter for screening for dental disorders Marlow DDS Gabyxjayda. [address] [place], [address], [place]. tel:[phone] [facility], [address] [place] [address], [id number], [place] tel:[phone] [facility] Encounter for screening for dental disorders Tino DMD Murtaza. [address] [place], [place], [id number], [place]. tel:[phone] [facility], [address] [place] [address], [id number], [place] tel:[phone] Dental Clinic DN (chief complaint) Encounter for screening for dental disorders Luis DMD Eri. [address] [place] [address], [id number], [place]. tel:[phone] [facility], [address] [place] [address], [id number], [place] tel:[phone] Dental Clinic DN (chief complaint) Encounter for screening for dental disorders Werner Gilbert. [address] [place] [address], [address], [place]. tel:[phone] Family History Family Member Type Diagnosis Age [...] 2024 due Goal Lipid panel. Due on 025 due Goal Tdap. Due on due Goal PRAPARE ASSESSMENT. Due on S due Goal Depression screening. Due on due Goal Unhealthy drug use screening . Due on due Goal Influenza vaccine. Due on Se due Goal Hep A. Due on du e Goal Depression screening. Due on due Goal HPV. Due on due Goal Unhealthy drug use screening . Due on due Goal Tdap. Due on due Goal Lipid panel. Due on 025 due Goal Hepatitis C screening. Due o n due Goal Influenza vaccine. Due on Au due Goal PRAPARE ASSESSMENT. Due on A due Goal Tdap Vaccine. Due on 2024 due Goal Hepatitis C screening. Due o n due Goal HPV. Due on due Goal PRAPARE ASSESSMENT. Due on A due Goal Depression screening. Due on due Goal Lipid panel. Due on due Goal Tdap Vaccine. Due on 2024 due Goal Unhealthy drug use screening . [...] 2024 due Goal Influenza vaccine. Due on [place] due Goal Lipid panel. Due on due [...] on due Goal Influenza vaccine. Due on [place] due Goal Lipid panel. Due on due [...] Lipid panel. Due on 024 due Goal Unhealthy drug use screening . Due on due Goal PRAPARE ASSESSMENT. Due on S due Goal Tdap. Due on due Goal Tdap Vaccine. Due on 2023 due History Of Present Illness Encounter Date [...]
--- OUTSIDE RECORDS SUMMARY | 2025-06-22 11:00 | XMS_ITS | Encounter Summary ---
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 (Primary Dx); Cardiovascular stress test abnormal; Primary hypertension; Mixed hyperlipidemia Social History Tobacco UseTypesPacks/DayYears UsedDateSmoking Tobacco: NeverSmokeless Tobacco: NeverAlcohol UseStandard Drinks/WeekCommentsYes0 (1 standard drink = 0.6 oz pure alcohol)sociallyUT Safety & EnvironmentAnswerDate RecordedFear of Current or Ex-PartnerNot on file09/24/2023Emotionally AbusedNot on file09/24/2023hysically AbusedNot on file09/24/2023Sexually AbusedNot on file09/24/2023hysically or Sexually AbusedNot on file09/24/2023CommentsUnknownSex and Gender InformationValueDate RecordedSex Assigned at HjtiwDjwirw19/07/2025 9:49 AM EST Legal DolKneeky50/06/2023 10:00 AM EDTGender NcxvynhqKvcayt99/07/2025 9:49 AM ESTSexual OrientationHeterosexual or Kzngukzx16/07/2025 9:49 AM ESTdocumented as of this encounter Last Filed Vital Signs Vital SignReadingTime TakenCommentsBlood Vtrupvca596/9006/22/2025 12:09 PM EST Cuceq340206/22/2025 12:09 PM ESTTemperature--Respiratory Rate--Oxygen Saturation 98%06/22/2025 12:09 PM ESTInhaled Oxygen Concentration--Wsqbyi50.6 kg (171 lb) 06/22/2025 12:09 PM QLJCsdzos328.1 cm (5' 5 )06/22/2025 12:09 PM ESTBody Mass Index28.4606/22/2025 12:09 PM ESTdocumented in this encounter Functional Status * BPAnswerDate of RaxaxuldxlQqngoo593/9006/22/2025 12:09 PM Cait Ca MA * PulseAnswerDate of BowhmolowyKhqlvn5201/21/2025 12:09 PM Cait Ca MA * Patient PositionAnswerDate of TzrigctyvpMakmftOdqrjsc20/21/2025 12:09 PM Cait Khoury MA * BPAnswerDate of EyqyxneqifTyjeza375/9006/22/2025 12:09 PM Cait Ca MA * PulseAnswerDate of ChmysdhaalYgclel1866/21/2025 12:09 PM Cait Ca MA * ZdH1KexxrgMkbl of CatsggybgaIrfbxz4396/21/2025 12:09 PM Cait Ca MA * BP LocationAnswerDate of AssessmentAuthorLeft arm06/22/2025 12:09 PM Cait Khoury MA * Patient PositionAnswerDate of NwbfxyzefmIgprcdQbxbxul18/21/2025 12:09 PM Cait Khoury MA documented as of this encounter Progress Notes * Kenny Baird MD - 06/22/2025 11:00 AM EST Images from the original note were not included. MD Cardiology - [facility] Subjective Renu Ortega is a 45 y.o. year old female patient being seen for follow up [facility] for chest pain. She had outpatient stress test, which was abnormal. Patient was last seen by Dr. Vaz in clinic here in Mar 2023 s/p PCI in December 2022 at [facility]. Still having chest pain and daily SOB, w/woexertion. Denies palpitations. Problem List[1] Family History[2] Social History[3] HPI She is seen in follow-up. This is the first time I am meeting her. She used to follow with Dr. Lima Vaz from our group she is a 45-year-old woman with prior history of hypertension, hyperlipidemia, diabetes, CAD statuspost PCI of the circumflex in the setting of NSTEMI in December 2022 At [facility]. she was admitted to the [facility] on 05/12/2025 with complaints of chest pressure radiatingto both arms. Her ECG did not show ischemic changes. High- sensitivity troponin was were negative. Astress test was ordered which showed evidence of ischemia. Today she reports that she has been having continued symptoms of chest pain described as pressure in the center of the chest with radiation to both arms. This happens with mild activity. This is associated with walking and other activities. There is shortness of breath in addition to the chest painsymptom. She sometimes has to take sublingual nitroglycerin to relieve the pain in case resting does not get the pain to subside. No lower extremity edema. No palpitations. Review of Systems Cardiovascular: Positive for chest pain and dyspnea on exertion. All other systems reviewed and are negative. Objective Visit Vitals BP 130/90 (BP Location: Left arm, Patient Position: Sitting) Pulse 85 Ht 1.651 m (5' 5 ) Wt 77.6 kg (171 lb) SpO2 98% BMI 28.46 kg/m?? Smoking Status Never BSA 1.89 m?? Physical Exam Constitutional: Appearance: She is well-developed. She is not ill-appearing. HENT: Head: Normocephalic and atraumatic. Nose: Nose normal. Eyes: General: No scleral icterus. Pupils: Pupils are equal, round, and reactive to light. Neck: Thyroid: No thyromegaly. Vascular: No JVD. Cardiovascular: Rate and Rhythm: Normal rate and regular rhythm. Pulses: Radial pulses are 2+ on the right side and 2+ on the left side. Heart sounds: Normal heart sounds. No murmur heard. No friction rub. No gallop. Pulmonary: Effort: Pulmonary effort is normal. No respiratory distress. Breath sounds: Normal breath sounds. No wheezing or rales. Chest: Chest wall: No tenderness. Abdominal: General: Bowel sounds are normal. There is no distension. Palpations: Abdomen is soft. Tenderness: There is no abdominal tenderness. Musculoskeletal: General: No swelling. Cervical back: Neck supple. Skin: General: Skin is warm and dry. Neurological: General: No focal deficit present. Mental Status: She is alert and oriented to person, place, and time. Psychiatric: Mood and Affect: Mood normal. Behavior: Behavior is cooperative. Judgment: Judgment normal. Allergies Allergies[4] Medications Current Medications[5] Recent Labs blood testing 05/13/2025: Hemoglobin 13.6, platelets 227, potassium 3.8, BUN 12, creatinine 0.55, GFR more than 60. Hemoglobin A1c 11.8%. LFTs normal. High- sensitivity troponin 19.2. Blood testing 02/15/2025: Hemoglobin 15, platelets 268, potassium 4.1, BUN 18, creatinine 0.66, eGFRmore than 60, hemoglobin A1c 11.9%, triglycerides 578, cholesterol 228, LDL 108, HDL 38. TSH 1.596.Thyroxine 8.5. Free T3 3.19. Imaging and other tests Stress test 06/18/2025: Abnormal myocardial perfusion stress images revealing evidence of inferolateral ischemia. Normal left ventricle systolic function, ejection fraction 67%. No transient ischemic dilatation, TID 0.8. Negative Lexiscan EKG stress test for ischemia. ECG 05/13/2025: Sinus rhythm, normal ECG. Echocardiogram 05/12/2025: Normal CONCLUSION: 1. Mild concentric left ventricular hypertrophy with normal systolic function. LVEF is estimated at 60 to 65%. 2. Normal right ventricular size and systolic function. 3. Normal diastolic function. 4. No significant valvular dysfunction. 5. Normal right-sided pressures. 6. No pericardialeffusion. Cardiac catheterization 01/23/2023: Multivessel CAD with severe stenosis left circumflex status postPCI with [facility]. Left main normal. LAD mild diffuse irregularity less than 30%. Circumflex 99% mid stenosis. RCA normal caliber with mild diffuse disease and less than 50% stenosis. PDA ostial is 50%. Normal LVEDP. No gradient across the aortic valve. Normal LV systolic function EF 55 to 60%. Subtle lateral wall motion abnormality. No mitral regurgitation. Successful PCI to mid left circumflex 99% stenosis reduced to 0% after implantation of a Xience 2.75 x 28 mm postdilated 3.0 NC at high-pressure. 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 - ezetimibe (Zetia) 10 mg tablet; Take 1 tablet (10 mg) by mouth in the morning. - isosorbide mononitrate ER (Imdur) 60 mg 24 hr tablet; Take 1 tablet (60 mg) by mouth in the morning. Do not crush or chew. - Case Request City Comptroller: Coronary angiography - atorvastatin (Lipitor) 80 mg tablet; Take 1 tablet (80 mg) by mouth at bedtime. Cardiovascular stress test abnormal - Basic metabolic panel; Future - CBC and differential; Future - Case Request City Comptroller: Coronary angiography Primary hypertension - lisinopril 20 mg tablet; Take 1 tablet (20 mg) by mouth in the morning. - metoprolol tartrate (Lopressor) 25 mg tablet; Take 1 tablet (25 mg) by mouth in the morning and at bedtime. Mixed hyperlipidemia - atorvastatin (Lipitor) 80 mg tablet; Take 1 tablet (80 mg) by mouth at bedtime. She has symptoms typical of angina with mild exertion. Dose started in the past few weeks. I am going to optimize therapy by adding Imdur 60 mg daily. Given the high risk history with multiple risk factors and uncontrolled diabetes as well as abnormal stress test, I told her that we should proceed with cardiac catheterization. I will proceed with cardiac catheterization with left heart catheterization and coronary angiography given chest pain, dyspnea, and abnormal stress test. I have explained to her the procedure with risks and benefits, including risks of heart attack, stroke and , as well as contrast nephropathyand radiation injury. she understands and agrees. I will proceed from the right radial artery access site. I gave her instructions to take sublingual nitroglycerin in case chest pain happens and to come to the emergency room if there is no resolution of the chest pain. I will target tight control of LDL by adding ezetimibe 10 mg daily. I have refilled her lisinopril, Metoprolol and atorvastatin. follow-up after the procedure. No follow-ups on file. Kenny Baird MD [1] Patient Active Problem List Diagnosis Acute myocardial infarction (CMS/HCC) Chronic hypertension complicating or reason for care during , first trimester History of unexplained stillbirth Type 2 diabetes mellitus complicating in first trimester, antepartum Acute sinusitis Chest pain Chronic ulcer of right heel (CMS/HCC) Diabetes mellitus (CMS/HCC) Diabetic foot (CMS/HCC) History of section History of cholecystectomy Hypertension Nasal congestion Non-healing surgical wound Obesity Otitis externa Shingles Shoulder pain Type 2 diabetes mellitus with foot ulcer (CMS/HCC) [2] Family History Problem Relation Name Age of Onset Diabetes Father Coronary artery disease Father Kidney disease Father [3] Social History Tobacco Use Smoking status: Never Smokeless tobacco: Never Substance Use Topics Alcohol use: Yes Comment: socially [4] Allergies Allergen Reactions Penicillins Hives and Other [5] Current Outpatient Medications: aspirin 81 mg EC tablet, Take 81 mg by mouth in the morning., Disp: , Rfl: Brilinta 90 mg tablet, Take 90 mg by mouth in the morning and at bedtime., Disp: , Rfl: cetirizine (ZyrTEC) 10 mg tablet, Take 10 mg by mouth in the morning., Disp: , Rfl: citalopram (CeleXA) 20 mg tablet, Take 20 mg by mouth in the morning., Disp: , Rfl: insulin glargine (Basaglar KwikPen U-100 Insulin) 100 unit/mL (3 mL) pen, Inject 20 units Subcutaneous every evening, Disp: , Rfl: Lantus Solostar U-100 Insulin 100 unit/mL (3 mL) pen, INJECT 20 UNITS SUBCUTANEOUSLY EVERY NIGHT, Disp: , Rfl: metFORMIN (Glucophage) 500 mg tablet, Take 500 mg by mouth in the morning and at bedtime., Disp: , Rfl: metoclopramide (Reglan) 10 mg tablet, 1 tablet before meals Orally four times daily, Disp: , Rfl: nitroglycerin (Nitrostat) 0.4 mg SL tablet, place 1 tablet under the tongue if needed every 5 minutes for chapincito... (REFER TO PRESCRIPTION NOTES)., Disp: , Rfl: NovoLOG U-100 Insulin aspart 100 unit/mL injection vial, Inject Injection 5 units for every 50 [id number] max dose 60U per day; Duration: 50 days, Disp: , Rfl: atorvastatin (Lipitor) 80 mg tablet, Take 1 tablet (80 mg) by mouth at bedtime., Disp: 90 tablet, Rfl: 3 ezetimibe (Zetia) 10 mg tablet, Take 1 tablet (10 mg) by mouth in the morning., Disp: 90 tablet, Rfl: 3 isosorbide mononitrate ER (Imdur) 60 mg 24 hr tablet, Take 1 tablet (60 mg) by mouth in the morning. Do not crush or chew., Disp: 90 tablet, Rfl: 3 lisinopril 20 mg tablet, Take 1 tablet (20 mg) by mouth in the morning., Disp: 90 tablet, Rfl: 3 metoprolol tartrate (Lopressor) 25 mg tablet, Take 1 tablet (25 mg) by mouth in the morning and at bedtime., Disp: 180 tablet, Rfl: 3 documented in this encounter Plan of Treatment NameTypePriorityAssociated DiagnosesOrder ScheduleBasic metabolic panelLab Routine Cardiovascular stress test abnormal Expected: 06/22/2025 (Approximate), Expires: 06/22/2026BC and differentialLab Routine Cardiovascular stress test abnormal Expected: 06/22/2025 (Approximate), Expires: 06/22/2026NamePriorityAssociated DiagnosesDate/TimeCORONARY ANGIOGRAPHY 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
[2025-06-24] VITALS (15 sets, daily range): BP systolic 135–153; BP diastolic 86–100; PULSE 87–97; TEMP 36.8; O2SAT 96–99; BMI 28.5
--- NOTE | 2025-06-24 22:31 | ECG_ITS ---
[facility] Test Date: 2025-06-24 Pat Name: ESCOBAR NASH Department: Room: - Gender: Female Ring Sewer: : 1980 Requested By: Nicholas May Order Number: [id number] Reading MD: KINGA BREEN M.D. Measurements Intervals Tiline Rate: 89 P: 70 MT: 162 QRS: 26 QRSD: 76 T: -13 QT: 368 QTc: 414 Interpretive Statements 1100 Sinus rhythm 4068 Nonspecific Twave abnormality 8102 Low QRS voltage in chest leads 9130 borderline ECG Compared to ECG 05/13/2025 10:40:30 Low QRS voltage now present Electronically Signed On 06-25-2025 19:33:04 EST by KINGA BREEN M.D.
--- NOTE | 2025-06-24 22:31 | XR_ITS ---
The [place] [id number] Patient Name: ESCOBAR NASH MRN: [id number] date: 1980 Sex: F Assigned Patient Location: ED.MAIN Current Patient Location: Accession/Order Number: [id number] Exam Date: 06/24/2025 22:48 Report Date: 06/25/2025 07:58 At the request of: MINERVA DRAPER Procedure: XR chest 1V PORTABLE AP ERECT CHEST x-ray 0228 hours CLINICAL HISTORY: chest pain COMPARISON: 05/12/2025 The heart is within normal limits. There is no vascular congestion. No developing consolidation is seen. There is no effusion or pneumothorax. The osseous structures are intact. XR/XR chest 1V IMPRESSION: NO ACUTE FINDINGS Impression dictated by: Belle Mcarthur M.D. 06/25/2025 7:58 AM Dictation Location: [place] [address] Electronically authenticated by: [id number] Y Date: 06/25/2025 07:58
--- NOTE | 2025-06-24 22:45 | ED.CHESTPAI1 ---
HPI - Chest Pain General Chief Complaint: Chest Pain Stated Complaint: CHEST PAIN Time Seen by Provider: 06/24/25 22:28 Source: patient Mode of arrival: Wheelchair History of Present Illness HPI narrative: cc - chest pain Patient presents with chest pain that is radiating into both arms. Pain began around 8pm tonight and she took two SL NItro tabs. By the time she got to the ED, her pain had subsided. No recent injury to the chest or back. No recent cough or cold symptoms. She is pain-free now. Patient was just admitted in May for anginal symptoms. Her troponin was negative x3 during her hospitalization. Her hemoglobin A1c was over 11. They adjusted her insulin and also placed her on a beta-alicia. Cardiology recommended additional outpatient testing. She underwent nuclear medicine perfusion scan on June 18, 2025. Results, which are detailed below in the medical record portion of the MDM, reveal abnormal myocardial perfusion stress images suggesting inferolateral ischemia. Normal left ventricular systolic function. Ejection fraction 67%. She said that cardiology contacted her and the are planning an out-patient cardiac cath with stenting, if necessary. She takes aspirin and Brilinta daily Related Data Home Medications ?Medication ?Instructions ?Recorded ?Confirmed aspirin 81 mg tablet,delayed 81 mg PO DAILY 05/25/23 06/24/25 release atorvastatin 80 mg tablet 80 mg PO DAILY 05/25/23 06/24/25 ticagrelor 90 mg tablet (Brilinta) 90 mg PO BID 05/25/23 06/24/25 insulin aspart U-100 100 unit/mL 5 unit subcut Q6H 10/22/24 06/24/25 subcutaneous solution lisinopril 20 mg tablet 20 mg PO DAILY 05/12/25 06/24/25 Previous Rx's ?Medication ?Instructions ?Recorded hydroxyzine HCl 25 mg tablet 25 mg PO BID PRN anxiety #20 tabs 05/01/23 insulin glargine 100 unit/mL (3 60 unit (0.6 mL) subcut HS #15 mL 05/14/25 mL) subcutaneous pen (Lantus Solostar U-100 Insulin) metoprolol tartrate 25 mg tablet 25 mg PO BID #60 tabs 05/14/25 nitroglycerin 0.4 mg sublingual 0.4 mg sublingual Q5M PRN chest 05/14/25 tablet pain #30 tabs Allergies Allergy/AdvReac Type Severity Reaction Status Date / Time penicillin G AdvReac Intermediate Hives Verified 06/24/25 22:33 [facility] Medical History (Updated 06/25/25 @ 00:07 by Nicholas May) Angina pectoris ?I20.9 - Angina pectoris, unspecified (ICD-10) Hypertension ?I10 - Essential (primary) hypertension (ICD-10) Diabetes ?E11.9 - Type 2 diabetes mellitus without complications (ICD-10) Unstable angina ?I20.0 - Unstable angina (ICD-10) STEMI (ST elevation myocardial infarction) ?I21.3 - ST elevation (STEMI) myocardial infarction of unspecified site (ICD-10) Surgical History (Updated 05/12/25 @ 16:10 by Asia Richey) H/O heart artery stent ?Z95.5 - Presence of coronary angioplasty implant and graft (ICD-10) Social History Smoking status: Never smoker Highest level of school completed/degree received: high school graduate Little interest or pleasure in doing things: not at all Feeling down, depressed, or hopeless: not at all Exam Narrative Exam Narrative: Nurses notes and vital signs reviewed and patient is not hypoxic. afebrile General: Well-appearing and in no apparent distress. Skin: Warm, dry, no pallor noted. No rash. Head: Normocephalic, atraumatic. Eye: Pupils are equal, round and EOMI. No scleral icterus. Ears, Nose, Mouth, and Throat: Oral mucosa is moist Cardiovascular: Regular Rate and Rhythm without murmur, gallop or rub. Respiratory: No accessory muscle use or respiratory distress. Lungs are clear to auscultation, no wheezing, rales or rhonchi Chest Wall: no tenderness, crepitus or subcutaneous emphysema Musculoskeletal: normal ROM, no calf or popliteal tenderness, no lower extremity edema/swelling GI: Abdomen is soft, non-distended. Normal bowel sounds. No tenderness to palpation. No rebound, guarding, or rigidity noted. Neurological: A&O x4. No cranial nerve dysfunction observed. No truncal ataxia. Moves all extremities. Sensation intact. Psychiatric: Cooperative and interactive. Normal mood and affect. Constitutional Vital Signs, click to edit/add: Last Vital Signs Temp 98.3 F 06/24/25 22:27 Pulse 93 H 06/25/25 01:36 Resp 17 06/25/25 01:36 BP 144/93 H 06/25/25 01:36 Pulse Ox 98 06/25/25 01:36 O2 Del Method Room Air 06/24/25 22:27 Course Vital Signs Vital signs: Vital Signs Temperature 98.3 F 06/24/25 22:27 Pulse Rate 97 H 06/24/25 22:27 Respiratory Rate 20 06/24/25 22:27 Blood Pressure 138/100 H 06/24/25 22:27 Pulse Oximetry 99 06/24/25 22:27 Oxygen Delivery Method Room Air 06/24/25 22:27 Temperature 98.3 F 06/24/25 22:27 Pulse Rate 93 H 06/25/25 01:36 Respiratory Rate 17 06/25/25 01:36 Blood Pressure 144/93 H 06/25/25 01:36 Pulse Oximetry 98 06/25/25 01:36 Oxygen Delivery Method Room Air 06/24/25 22:27 MDM - Chest Pain MDM Narrative Medical decision making narrative: Patient with history of coronary artery disease with stenting in 2022 and a recent perfusion stress test that showed evidence of inferolateral ischemia now presents with chest pain that radiates into both arms. Pain was relieved with sublingual nitroglycerin. She also takes aspirin and Brilinta daily. She said the cardiology is planning on taking her to [facility] stenting, if necessary. Patient was placed on instrument repair supervisor and EKG obtained. Blood drawn and sent for evaluation. Portable chest x-ray obtained. Aside from the patient's glucose being over 600 -for which she received a liter of normal saline and 20 units of subcutaneous regular insulin -the rest of the workup was unremarkable. EKG did not show ST elevation. Chest x-ray was negative. Troponin and BNP were negative. I spoke with the hospitalist here at the [facility]. Dr. Castrejon recommended that I transfer this patient to [facility] for admission so that the patient could undergo cardiac catheterization tomorrow rather than wait for another week or 2 for outpatient scheduling. I spoke with Dr. Vincent, the hospitalist at [facility] and he agreed and accepted the patient's transfer and admission to the hospitalist facility at [facility] on his behalf. Patient I talked about the importance of getting this properly evaluated and getting the cardiac catheterization done on a nonemergent but urgent basis rather than waiting 1 to 2-week for outpatient scheduling. She was agreeable to transfer tonight. She is stable for transfer, which will be obtained by ambulance transportation. Differential Diagnosis Differential diagnosis: Likely pneumothorax, stable angina, unstable angina pectoris, atypical chest pain, st elevation myocardial infarction, costochondritis and chest pain Medical Records Data Attestation: I reviewed the patient's medical records. Medical records narrative: CONCLUSION: Abnormal myocardial perfusion stress images revealing evidence of inferolateral ischemia Normal left ventricle systolic function, ejection fraction 67% No transient ischemic dilatation, TID 0.8 EKG portion of the stress test is reported separately Dictated by: Kylah Everett MD on 06/18/2025 at 17:28 Approved by: Kylah Everett MD on 06/18/2025 at 17:33 Lab Data Attestation: I reviewed the patient's lab results. Labs: Lab Results 06/24/25 06/25/25 06/25/25 Range/Units 23:00 00:15 01:20 WBC 6.0 (4.0-11.0) 10^3/uL RBC 4.30 (4.20-5.40) 10^6/uL Hgb 12.2 (12.0-16.0) g/dL Hct 35.1 L (36.0-48.0) % MCV 81.6 (81.0-99.0) fL MCH 28.4 (26.7-34.0) pg MCHC 34.8 (29.9-35.2) g/dL RDW 12.9 (11.0-15.0) % Plt Count 242 (150-450) 10^3/uL MPV 10.5 (9.5-13.5) fL Neut % (Auto) 50.2 (43.0-75.0) % Lymph % (Auto) 42.0 (20.5-60.0) % Dewitt % (Auto) 5.4 (1.7-12.0) % Eos % (Auto) 1.2 (0.9-7.0) % Baso % (Auto) 0.7 (0.2-2.0) % Neut # (Auto) 3.0 (1.4-6.5) 10^3/uL Lymph # (Auto) 2.5 (1.2-3.8) 10^3/uL Dewitt # (Auto) 0.3 (0.3-0.8) 10^3/uL Eos # (Auto) 0.1 (0.0-0.7) 10^3/uL Baso # (Auto) 0.0 (0.0-0.1) 10^3/uL Abs Immat Gran (auto) 0.03 (0.00-0.03) 10^3/uL Imm/Tot Granulo (auto) 0.5 (0.0-0.5) % Sodium 133 L (136-145) mmol/L Potassium 4.2 (3.5-5.1) mmol/L Chloride 100 (98-107) mmol/L Carbon Dioxide 24.1 (21.0-32.0) mmol/L Anion Gap 13.1 BUN 15.0 (7.0-18.0) mg/dL Creatinine 0.83 (0.55-1.02) mg/dL Est GFR ( Amer) >60 (>=60 mL/min/1.73m^2) Est GFR (Non-Af Amer) >60 (>=60 mL/min/1.73m^2) BUN/Creatinine Ratio 18.1 Glucose 604 H* (74-106) mg/dL Calcium 8.7 (8.5-10.1) mg/dL Troponin I High Sens 7.9 7.9 (4.0-51.3) pg/mL NT-Pro-B Natriuret Pep 252.0 (<=450.0) pg/mL POC Glucose 393 H (74-106) mg/dL Imaging Data Chest x-ray: Attestation: I personally reviewed and interpreted this imaging study as follows: My impression: NAD ECG Data Attestation: I personally reviewed and interpreted this ECG as follows: Interpretation: EKG interpretation: Emergency Department physician interpretation. Normal sinus rhythm at 89bpm. Normal axis, normal intervals and nonspecific T wave changes. No ST segment elevation or depression. Heart Score History: Highly Suspicious ECG: NS Repolarization Age: >45-<65 years Risk Factors: >3 Risk Factors/ HX of CAD:2 Troponin: <Normal Limit Total Heart Score Recommendations & Risks:: 6 Discharge Plan Discharge Chief Complaint: Chest Pain Clinical Impression: Myocardial ischemia of inferolateral wall, Chest pain, Hyperglycemia due to diabetes mellitus Patient Disposition: [facility] Time of Disposition Decision: 00:06 Discharge Location: [facility] Discharge Date/Time: 06/25/25 02:03
--- OUTSIDE RECORDS SUMMARY | 2025-06-24 22:57 | XMS_ITS | CCD ---
Author Organization [facility] Care Team Providers Care Fence Machine Operator Name Role Phone DR GENTRY CARRILLO Consulting [...] Admitting Unavailable Gentry Carrillo Primary Care Physician [phone] Abhishek Monterroso Consulting Unavaila Ellie Encarnacion Attending Unavailable Ellie OBANDO Admitting Unavailable Abhishek Monterroso Consulting UnavailAbhishek Alonso Consulting Unavaila Pako Briceño Attending Unavailable FELIPA ROGERS Attending Unavailable Gentry Carrillo MD Primary Care Provider [phone] AMY LOVE Attending Unavailable GENTRY CARRILLO Primary Care Unavailable GENTRY CARRILLO Primary Care Unavailable SANCHEZ MANCILLA Attending Unavailable GENTRY CARRILLO Primary Care Unavailable AMISHA NGUYEN Attending Unavailable Gentry Carrillo MD Primary Care Provider [phone] BASIA BRANDT Attending Unavailable Marlow DDS, Yixue Unavailable Unavailable Marlow DDS, Yixue Unavailable Unavailable Marlow DDS, Yixue Unavailable Unavailable Marlow DDS, Yixue Attending Unavailable Gentry Carrillo MD Primary Care Unavailable Marlow DDS, Yixue Unavailable Unavailable Allergies Allergy ClassificationReported Allergen(s)Allergy TypeDate of OnsetReaction(s) Facility (1 source)PenicillinDrug Drsvsra76-59-7631UoyC[facility] (11 sources)Penicillins; Translations: [penicillins]Drug avcqpyw32-50-5768Hznf, Hives, UnknownMer[facility] Medications Current Medications MedicationDrug Class(es)DatesSig (Normalized)Sig (Original)acetaminophen 500 mg oral tablet (3 sources)Start: 04-43-2826ylum 1 tablet by mouth four times daily as needed for painacetaminophen (TYLENOL) 500 MG tablet Take 1 tablet by mouth 4 times daily as needed for Pain 360 tablet 1 10/04/2024 ActiveStart: 57-80-2964zbzg 4000 mg by mouth every twenty-four hours1,000 mg, Oral, ONCE, 1 dose, On Wed10/04/24 at 0745, Maximum dose of acetaminophen is 4000 mg from all sources in 24 hours.Start: 08-28-2024 End: 57-08-3479xbor 4000 mg by mouth every twenty-four ckbov118 mg, Oral, ONCE, 1 dose, On Wed08/28/24 at 1630, Maximum dose of acetaminophen is 4000 mg from al l sources in 24 hours.aspirin 81 mg delayed release oral tablet (4 sources)Platelet Aggregation Inhibitor, Nonsteroidal Anti-inflammatory Drug Start: 23-50-4879jsiu 1 tablet by mouth once dailyaspirin 81 mg Oral EC Tab 81 mg = 1 tab(s), Oral, Daily, # 30 tab(s), Refills(s) 1, [id number], 165, cm, 01/21/23 16:25:00 EDT, Height/Length Dosing, 83, kg, 01/21/23 16:25:00 EDT, Weight Dosing Start Date: 01/23/23 Status: Orderedtake 1 tablet by mouth once dailyaspirin 81 MG chewable tablet Take 1 tablet by mouth daily Activeatorvastatin 80 mg oral tablet (5 sources)HMG-CoA Reductase InhibitorStart: 01-23-2023 End: 15-66-3658xdda 1 tablet by mouth once dailyatorvastatin (LIPITOR) 80 MG tablet Take 1 tablet by mouth daily Please hold for the time you are taking antiviral 30 tablet 07/09/2024 Activecetirizine hydrochloride 10 mg oral tablet (4 sources)Histamine-1 Receptor AntagonistStart: 41-89-1368iyww 1 tablet by mouth once dailycetirizine 10 mg Tab 10 mg = 1 tab(s), Oral, Daily, Refills(s) 0 Start Date: 03/23/22 Status: Orderedciprofloxacin 3 mg/ml ophthalmic solution (1 source)Quinolone AntimicrobialStart: 07-09-2024 End: 91-87-8393ghjs 4 drop(s) into the eye(s) at bedtime, then take 4 drop(s) into the eye(s) twice dailyciprofloxacin (CILOXAN) 0.3 % ophthalmic solution Place 4 drops in ear(s) in the morning and at bedtime for 10 days Please 4 drops in the left ear bid for 7 days 5 mL 07/09/2024 07/19/2024 Activecitalopram 20 mg oral tablet (4 sources)Serotonin Reuptake InhibitorStart: 17-40-3089dlmp 1 tablet by mouth once dailycitalopram 20 mg Tab 20 mg = 1 tab(s), Oral, Daily, Refills(s) 0 Start Date: 06/05/22 Status: Orderedfluconazole 150 mg oral tablet (2 sources)Azole AntifungalStart: 01-08-2025 End: 35-34-6094lbcz 1 tablet by mouth once, then take 1 tablet by mouth once fluconazole (Diflucan) 150 MG tablet Indications: Yeast infection Take 1 tablet (150 mg) by mouth 1(one) time for 1 dose This is a 1 time dose, take single tablet by mouth. 1 tablet 1 01/08/2025 01/08/2025 Activefluticasone furoate 0.05 MG/ACTUAT Dry Powder Inhaler (4 sources)CorticosteroidStart: 88-50-9047pcrf 1 puff(s) by inhalation twice dailyfluticasone furoate 50 mcg inhalation powder = 1 puff(s), Inhalation, BID, Refills(s) 0 Start Date:03/24/22 Status: Orderedtake 1 spray(s) nasal route once daily as needed for rhinitisfluticasone (FLONASE) 50 MCG/ACT nasal spray 1 spray by Each Nostril route daily as needed for Rhinitis Activeglimepiride 4 mg oral tablet (4 sources)SulfonylureaStart: 60-70-3515fkym 1 tablet by mouth once daily glimepiride [...] mg oral tablet (1 source)Nonsteroidal Anti-inflammatory DrugStart: 98-20-6397yblr 1 tablet by mouth four times daily as needed for painibuprofen 800 mg Tab 800 mg = 1 tab(s), Oral, QID, PRN as needed for pain, Refills(s) 0 Start Date:10/19/22 Status: OrderedLantus (3 sources)Insulin AnalogStart: 28-26-6807xtuaks 20 [IU] by subcutaneous injection once daily [...] hydrochloride 500 mg oral tablet (1 source)BiguanideStart: 95-24-0873avyp 1 tablet by mouth twice dailymetformin 500 mg Tab 500 mg = 1 tab(s), Oral, BID, Refills(s) 0 Start Date: 03/23/22 Status: Orderednaproxen 375 mg oral tablet (3 sources)Nonsteroidal Anti-inflammatory DrugStart: 07-09-2024 End: 67-09-0726rjjp 1 tablet by mouth twice daily as needed for painnaproxen (NAPROSYN) 375 MG tablet Take 1 tablet by mouth 2 times daily as needed for Pain 20 zddxnm5407/09/2024 Activenitroglycerin 0.4 mg sublingual tablet (1 source)Nitrate VasodilatorStart: 18-34-6072ucazkhmainaup 0.4 mg sublingual Tab 0.4 mg = 1 tab(s), SubLingual, q5min, PRN Chest pain, not to exceed 3 doses/15 min--if pain persists, seek medical attention, # 100 tab(s), Refills(s) 0, Pharmacy:[facility] #[id number], 165, cm, 01/21/23 16:25:00 EDT, Height/Length Dosing, 83, kg, 01/21/23... Start Date: 01/23/23 Status: Orderedterconazole 4 mg/ml vaginal cream (4 sources)Azole AntifungalStart: 01-08-2025 End: 49-30-1801npwxnoizjam (Terazol 7) 0.4 % vaginal cream Indications: Yeast infection Insert 1 applicator into the vagina at bedtime for 7 days 45 g 01/08/2025 01/15/2025 Activeticagrelor 90 mg oral tablet (4 sources)Start: 99-08-0646jeag 1 tablet by mouth twice dailyBrilinta (ticagrelor) 90 mg oral tablet 90 mg = 1 tab(s), Oral, BID, # 60 tab(s), Refills(s) 1, Pharmacy: [facility] #[id number], 165, cm, 01/21/23 16:25:00 EDT, Height/Length Dosing, 83, kg, 01/21/23 16:25:00 EDT, Weight Dosing Start Date: 01/23/23 Status: OrderedvalACYclovir 1000 mg oral tablet (1 source)Herpesvirus Nucleoside Analog DNA Polymerase Inhibitor, Herpes Simplex Virus Nucleoside Analog DNA Polymerase Inhibitor, Herpes Zoster Virus Nucleoside Analog DNA Polymerase InhibitorStart: 07-09-2024 End: 41-71-5997hucg 1 tablet by mouth three times dailyvalACYclovir (VALTREX) 1 g tablet Take 1 tablet by mouth 3 times daily for 7 days 21 tablet 07/09/2024 07/16/2024 Active Completed/Discontinued Medications MedicationDrug Class(es)DatesSig (Normalized)Sig (Original)Acetaminophen / HYDROcodone (1 source)Opioid AgonistStart: 79-35-5118Kagbqjs 500mg-5mg Tab 1 tab(s), Oral, q4hr PRN for pain, 15 tab(s), Refill(s) 0, 0, Print Requisition Start Date: 11/17/11 Status: OrderedInsulin Lispro (2 sources)Insulin AnalogStart: 01-23-2023 End: 87-40-0605Coxfgce Lispro Sliding Scale 0-10 Units, Injection-Insulin, SubCutaneous, Start date 01/23/23 7:30:00 EDT Start Date: 01/23/23 Stop Date: 01/23/23 Status: CompletedStart: 01-22-2023 End: 89-11-0050Raxfsmb Lispro Sliding Scale 0-10 Units, Injection-Insulin, SubCutaneous, Start date 01/22/23 7:30:00 EDT Start Date: 01/22/23 Stop Date: 01/22/23 Status: Completedinsulin, regular, human 100 unt/ml injectable solution (1 source)InsulinStart: 08-28-2024 End: Units, IntraVENous, ONCE, 1 dose, [place] Wed08/28/24 [place] [address] ml ketorolac tromethamine 30 mg/ml cartridge (1 source)Nonsteroidal Anti-inflammatory Drug, Cyclooxygenase InhibitorStart: 07-09-2024 End: 37-44-390270 mg, IntraMUSCular, ONCE, 1 dose, On 07/09/24 at 0900, Do not administer for more than 5 days.Start: 07-09-2024 End: mg, IntraMUSCular, ONCE, 1 dose, On 07/09/24 at 0900, Do not administer for more than 5 days.lisinopril 10 mg oral tablet (5 sources)Angiotensin Converting Enzyme InhibitorStart: 01-23-2023 End: 60-25-0604nffgthsomy 10 mg Tab 10 mg = 1 tab(s), Tab, Oral, Start date 01/23/23 9:00:00 EDT, 01/21/23 19:11:00 EDT Start Date: 01/23/23 Stop Date: 01/23/23 Status: CompletedStart: 51-04-0798lnko 1 tablet by mouth once daily lisinopril 20 mg Tab 20 mg = 1 tab(s), Oral, Daily, Refills(s) 0 Start Date: 01/05/22 Status: Orderedmetoprolol tartrate 25 mg oral tablet (7 sources)beta-Adrenergic BlockerStart: 01-23-2023 End: 98-53-7155Maqnlutgsv tartrate 25 mg Tab 25 mg = 1 tab(s), Tab, Oral, Start date 01/23/23 9:00:00 EDT, 01/22/23 11:30:00 EDT Start Date: 01/23/23 Stop Date: 01/23/23 Status: CompletedStart: 01-22-2023 End: 29-97-4129Oepjxdnbut tartrate 25 mg Tab 25 mg = 1 tab(s), Tab, Oral, Start date 01/22/23 21:00:00 EDT, 01/22/23 11:30:00 EDT Start Date: 01/22/23 Stop Date: 01/22/23 Status: Isrioloyk51 ml sodium chloride 9 mg/ml injection (2 sources)Start: 08-28-2024 End: ,000 mL (12.5 mL/kg), IntraVENous, at 1,000 mL/hr, Administer over 1 Hours, ONCE, On Wed08/28/24 at 1630, For 1 dose Problems Active Problems Problem ClassificationProblemDateDocumented DateEpisodic/ChronicAcute myocardial infarction (1 source)Non-ST elevation (NSTEMI) myocardial infarction; Translations: [Non-ST elevation (NSTEMI) myocardial infarction]Onset: 80-42-6498DlqjdonQrrllltj atherosclerosis and other heart disease (1 source)Coronary atherosclerosis; Translations: [Atherosclerotic heart disease of lummi coronary artery without angina pectoris]Onset: 12-93-7562Pupjdvb Diabetes mellitus with complications (3 sources)Type 2 diabetes mellitus with hyperglycemia; Translations: [Hyperglycemia due to diabetes mellitus]Onset: 934359-89-4255Eupjokf Diabetes mellitus without complication (2 sources)Type 2 diabetes mellitus without complications; Translations: [Type 2 diabetes mellitus without complication]Onset: 38-67-3615QxxaqvjWndwxjgd mellitus without complication (3 sources)Hyperglycemia; Translations: [Hyperglycemia, unspecified]Onset: 91-75-9586UfwqevuzOpbqngyq of white blood cells (1 source)Leukocytosis; Translations: [Elevated white blood cell count, unspecified]Onset: 86-03-8574TrvbmbaSbrtdjian hypertension (2 sources)Essential (primary) hypertension; Translations: [Essential hypertension]Onset: 77-75-9641EbugyuuLuajh and electrolyte disorders (6 sources)Dehydration; Translations: [Hypo-osmolality and hyponatremia]Onset: 10-16-4876ErispefwJxofysyahevg with complications and secondary hypertension (1 source)Hypertensive urgency ; Translations: [Hypertensive urgency]Onset: 83-82-5008MjyaunrEhcutwhucnjfh and screening for infectious disease (5 sources)Encounter for screening for human papillomavirus (HPV); Translations: [Encounter for screening for infections with a predominantly sexual mode of transmission]Onset: 17-02-8413EqutbbfqUnubpsqsvcoa diseases of female pelvic organs (2 sources)Acute vaginitis; Translations: [Acute vaginitis]71-08-9976Kbglzrqo Mood disorders (1 source)Major depressive disorder, single episode, unspecified; Translations: [KATHIE DEPRESS D/O SINGLE EPIS UNS]Onset: 20-63-0703AnjmmfpIjeajdo (2 sources)Mycosis; Translations: [Candidiasis, unspecified]98-24-0698Pejglsph Nonspecific chest pain (1 source)Chest pain; Translations: [Chest pain, unspecified]Onset: 01-21-2023 EpisodicOther aftercare (1 source)Long-term current use of drug therapy; Translations: [Other decontamination worker (current) drug therapy]Onset: 32-92-8129CmtquycmVfbhe ear and sense organ disorders (1 source)Infective otitis externa of left ear; Translations: [Other infective otitis externa, left ear]97-04-6969ClrbefyyPjpad ear and sense organ disorders (1 source)Other infective otitis externa, left ear; Translations: [Other infective otitis externa, left ear]Onset: 39-64-0229XafcymtuHkfzt female genital disorders (1 source)Other specified noninflammatory disorders of vagina; Translations: [OTH SPEC NONINFLAMMATORY D/O VAGINA]Onset: 81-76-2285MkrnjepaFiepu hematologic conditions (1 source)Abnormal finding on evaluation procedure; Translations: [Other specified abnormalities of plasma proteins]Onset: 74-28-7588OsykqtqxWhbmj non- traumatic joint disorders (1 source)Pain of right shoulder joint; Translations: [Pain in right shoulder] Onset: 43-87-4129UqmlfnpeChpkf nutritional; endocrine; and metabolic disorders (1 source)Obesity; Translations: [Obesity, unspecified]Onset: 70-04-8579Vjavbxa Other screening for suspected conditions (not mental disorders or infectious disease) (13 sources)Encounter for screening for malignant neoplasm of cervix; Translations: [Encounter for screening for dental disorders]Onset: 06-15-2022 EpisodicUnclassified (4 sources)CONTACT W/AND (SUSP) EXPOS COVID-19; Translations: [CONTACT W/AND (SUSP) EXPOS COVID-19]Onset: 84-38-5559Nfoeo infection (4 sources)Herpes zoster without complication; Translations: [Zoster without complications]Onset: 420447-17-4491Eztagwqi Past or Other Problems Problem ClassificationProblemDateDocumented DateEpisodic/ChronicCardiac dysrhythmias (1 source)Tachycardia, unspecified; Translations: [TACHYCARDIA UNSPECIFIED] Onset: 82-69-4568DcfpucolNpzixwazescny symptoms and ill-defined conditions (1 source)Personal history of urinary (tract) infections; Translations: [PERS HX URINARY TRACT INFECTIONS]Onset: 95-08-2996PkmygunaTavzms and vomiting (7 sources)Vomiting, unspecified; Translations: [Nausea with vomiting, unspecified]Onset: 09-81-1486MuqswtrwCvrwmiswekism gastroenteritis (1 source)Noninfective gastroenteritis and colitis, unspecified; Translations: [NONINFECTIVE GE AND COLITIS UNS]Onset: 79-02-3712BoldclxjZfert aftercare (1 source)Other decontamination worker (current) drug therapy; Translations: [OTH SHELTER CURRENT DRUG THERAPY]Onset: 88-93-2842UtmafzmrThzpc aftercare (1 source)[facility] (current) use of oral hypoglycemic drugs; Translations: [HOSPICE HOME HEALTH AIDE USE ORAL HYPOGLYCEMIC DX]Onset: 56-35-2888CqiihzlpUpnqg aftercare (1 source)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; Translations: [SHELTER CURRENT USE OF ASPIRIN]Onset: 53-22-0288OypddoczWflrq aftercare (1 source)electrical controls technician (current) use of insulin; Translations: [HOSPICE HOME HEALTH AIDE CURRENT USE OF INSULIN]Onset: 46-90-0345IjhrubnlJfmhg gastrointestinal disorders (1 source)Heartburn; Translations: [HEARTBURN]Onset: 68-01-3507IbskwrowDzxpikqs codes; unclassified (1 source)Acquired absence of other specified parts of digestive tract; Translations: [ACQ ABSENCE OTH PART DIGESTV TRACT]Onset: 70-17-9347Wcegvjgb Unclassified (1 source)CONTACT W/AND (SUSP) EXPOS COVID-19; Translations: [CONTACT W/AND (SUSP) EXPOS COVID-19]Onset: 22-62-3389Umtboxewwlsd (1 source)gall blader flphoxh29-21-6727Pmnbzfsvwanc (1 source)extraction (chief complaint)Onset: 63-07-9073Glsefqgttyso (2 sources)ext (chief complaint)Onset: 03-05-2025 Resolved: 51-24-7697Oqwdraibzrmv (1 source)POV (chief complaint)Onset: 04-24-2025 Results Test NameValueInterpretationReference RangeFacilityIGP,APTIMA HPV,AGE GDLNon 41-96-4519VWX GDLN ACOG TESTINGNote.NOMS HealthcareComment on above:TESTS RESULT FLAG UNITS REF RANGE LAB Clinician Provided Cytology Information Source.............Cervix;Endocervix No. of containers..01 ThinPrep Vial Age Gwendolyn SPEARS Lory... 28 FLAG LEGEND: L-Low Normal,H-High Normal,LL-Alert Low,HH-Alert High <-Panic Low,>-Panic High,A-Abnormal,AA-Critical Abnormal Performed at: 01 =[address] [phone] Lucy Carbajal MD, HPV APTIMANegativeNegativeNOMS HealthcareComment on above:This nucleic acid amplification test detects fourteen high- risk HPV types (16,18,31,33,35,39,45,51,52,56,58,59,66,68) without differentiation. Performed at: =[address] [id number] Dredgemaster: Lucy Carbajal MD, Phone: [phone] Performed at: [address] [id number] Dredgemaster: Lucy Carbajal MD, Phone: [phone] IGP, APTIMA HPV, RFX 16/18,45Note.NOMS HealthcareComment on above:TESTS RESULT FLAG UNITS REF RANGE LAB DIAGNOSIS: 02 NEGATIVE FOR INTRAEPITHELIAL LESION OR MALIGNANCY. Specimen adequacy: 02 Satisfactory for evaluation. Endocervical and/or squamous metaplastic cells (endocervical component) are present. Performed by: 02 Genoveva Rhodes Quality Assurance Test Program Manager ([facility]) . 02 Note: Note 02 The [...] <-Panic Low,>-Panic High,A-Abnormal,AA-Critical Abnormal Performed at: [address] [phone] Lucy Carbajal MD, BRUSH-SPATULA CERVIX ENDOCERVIX CLINISYNCNOMS HealthcareRECURRENT VAGINITIS (HTRX)on 42-80-7033CWSFSGEER VAGINAE 15.51AbnormalNOMS HealthcareATOPOBIUM VAGINAEDetectedAbnormalNOMS HealthcareBVAB 2,3 (BACTERIAL VAGINOSIS ASSOCIATED BACTERIA 2, 3); MOBILUNCUS [id number] HealthcareBVAB 2,3 (BACTERIAL VAGINOSIS ASSOCIATED BACTERIA 2, 3); MOBILUNCUS SPPNot detectedNOMS HealthcareCANDIDA ALBICANS, PARAPSILOSIS, [id number] HealthcareCANDIDA ALBICANS, PARAPSILOSIS, TROPICALISNot detectedNOMS Healthcare HEATHER [id number] HealthcareCANDIDA GLABRATANot detectedNOMS Healthcare HEATHER PVZHMW1JPHO HealthcareCANDIDA KRUSEINot detectedNOMS HealthcareCHLAMYDIA BQTSDRPRTXN1TBXN HealthcareCHLAMYDIA TRACHOMATISNot detectedNOMS HealthcareERMB, C; MEFA15.815AbnormalNOMS HealthcareERMB, C; MEFADetectedAbnormalNOMS Healthcare GARDNERELLA SQOYVRMLL92.198AbnormalNOMS HealthcareGARDNERELLA VAGINALISDetected AbnormalNOMS HealthcareInterpretation and review of laboratory resultsAbnormal NOMS HealthcareMEGASPHAERA (TYPES 1, 2)20.579AbnormalNOMS HealthcareMEGASPHAERA (TYPES 1, 2)DetectedAbnormalNOMS HealthcareMYCOPLASMA ANYQBNZSNF6SEYU Healthcare MYCOPLASMA GENITALIUMNot detectedNOMS HealthcareNEISSERIA ZDWGWNTOBEJ4TMYS HealthcareNEISSERIA GONORRHOEAENot detectedNOMS HealthcareTET B, TET M12.593 AbnormalNOMS HealthcareTET B, TET MDetectedAbnormalNOMS HealthcareTRICHOMONAS NMNLHEOJU1PWBE HealthcareTRICHOMONAS VAGINALISNot detectedNOMS HealthcareNONC HealthcareCOVID-19, Rapidon 38-94-2723DFDX-CoV-2 (COVID-19) RdRp gene TIM+probe Ql (Resp)Not detectedNot [facility] Hospitalment on above: Rapid NAAT: The specimen [...] Methodology: Isothermal Nucleic Acid Amplification Specimen Description.NASOPHARYNGEAL SWABSentara CarePlex Hospital A/B Ag Detectionon 88-41-7302Wac A Ag DetectionNegativeNormalNEG [facility] HospitalComment on above:Result Comment: for Influenza A Antigen Performed By: #### FLUABA #### [facility] [address] [place], [place] [id number] Dredgemaster: Matthew Driscoll MDFlu B Ag DetectionNegativeNormalNEGCleveland Clinic [facility] on above:Result Comment: for Influenza B Antigen.Performed By: #### FLUABA #### [facility] [address] [place], [place] [id number] Dredgemaster: Griselda Negrete influenza A/B antigenson 96-46-5806DOHHB Ag Ql (Unsp spec)NegativeNEGATIVEBon [facility] on above:for Influenza A AntigenFLUBV Ag Ql (Unsp spec)NegativeNEGATIVEBon [facility] on above:for Influenza B Antigen.Bon [facility] FBLL-UvP-2sj 27-53-2733FMBA-CoV-2 (COVID-19) RNA TIM+probe Ql (Unsp spec)Not detectedNormalNOTDETMBethesda North Hospital on above:Result Comment: Rapid NAAT: The [...] Nucleic Acid AmplificationPerformed By: #### COVRB #### [facility] [address] [place] [address] Dredgemaster: CHITO Negrete with Auto Differentialon 71-10-1335Xhlvgjdyw (Bld) [#/Vol]0.02 10*3/uLBon Secours Southwest General Health CenterBasophils/100 WBC (Bld)0 %0 - 2 %[facility] HospitalEosinophils (Bld) [#/Vol]0.09 10*3/uLBon Secours Southwest General Health CenterEosinophils/100 WBC (Bld)1 %0 - 5 %[facility] HospitalErythrocyte distribution width (RBC) [Ratio]13.0 %12.1 - 15.2 %[facility] Hematocrit (Bld) [Volume fraction]41.7 %36.0 - 46.0 %[facility] Hemoglobin (Bld) [Mass/Vol]15.0 g/dL12.0 - 16.0 g/dLBon SecMer[facility] Immature granulocytes (Bld) [#/Vol]0.02 10*3/uLBon SecMercy Health Kings Mills HospitalImmature granulocytes/100 WBC (Bld)0 %0 - 5 %[facility] HospitalInterpretation and review of laboratory resultsAbnormalBon SecMercy Health Kings Mills HospitalLymphocytes/100 WBC (Bld)33 %15 - 40 %[facility] HospitalLymphocytes/100 WBC (Bld)3.26 %[facility] CenterH (RBC) [Entitic mass]28.5 pg26.0 - 34.0 pgBon [facility] HospitalHC (RBC) [Mass/Vol]36.0 g/dL31.0 - 37.0 g/dLBon SecHarrison Community HospitalV (RBC) [Entitic vol]79.3 fLLow80.0 - 100.0 fLBon [facility] Monocytes/100 WBC (Bld)6 %4 - 8 %[facility] HospitalMonocytes/100 WBC (Bld) 0.55 %[facility] HospitalNeutrophils/100 WBC (Bld)60 %47 - 75 %[facility] HospitalPlatelet mean volume (Bld) [Entitic vol]9.9 fL6.0 - 12.0 fLBon Secours Southwest General Health CenterPlatelets (Bld) [#/Vol]277 10*3/uLBon [facility]Mer[facility] RBC (Bld) [#/Vol]5.26 10*6/uLHigh4.00 - 5.20 m/[facility] Segmented neutrophils/100 WBC (Bld)6.04 %Bon [facility] HospitalWBC other (Bld) [#/Vol]10.0Bon [facility] HospitalBon [facility] HospitalCBC with Diffon 15-24-2262Pen. Basophil0.02 k/uLNormal0.00-0.20[facility] HospitalComment on above:Performed By: #### CP, CDP #### [facility] [address] [place] [address] Dredgemaster: MDAbs. CadenImm.Granulocyte0.02 k/uLNormal0.00-0.30[facility] HospitalComment on above:Performed By: #### CP, CDP #### [facility] [address] [place] [address] Dredgemaster: Alisha Negrete.Neutrophil (Seg)6.04 k/uLNormal2.5-7.0[facility] HospitalComment on above:Performed By: #### CP, CDP #### [facility] [address] [place] [address] Dredgemaster: Matthew Driscoll MDBasophils/100 WBC (Bld)0 %Normal0-2MMercy Health Perrysburg HospitalComment on above:Performed By: #### CP, CDP #### [facility] [address] [place] [address] Dredgemaster: [place] Negreteosinophils (Bld) [#/Vol]0.09 10*3/uLNormal 0.00-0.40[facility] HospitalComment on above:Performed By: #### CP, CDP #### [facility] [address] [place] [id number] Dredgemaster: Matthew Sturtz, MDEosinophils/100 WBC (Bld)1 %Normal0-5[facility] HospitalComment on above:Performed By: #### CP, CDP #### [facility] [address] [place] [address] Dredgemaster: Matthew Driscoll MDErythrocyte distribution width (RBC) [Ratio]13.0 % Nbnxxb64.1-15.2MMercy Health Perrysburg HospitalComment on above:Performed By: #### CP, CDP #### [facility] [address] [place] [id number] Dredgemaster: Matthew Driscoll MDHematocrit (Bld) [Volume fraction]41.7 %Normal 36.0-46.0[facility] HospitalComment on above:Performed By: #### CP, CDP #### [facility] [address] [place] [address] Dredgemaster: Matthew Driscoll MDHemoglobin (Bld) [Mass/Vol]15.0 g/dLNormal 12.0-16.0[facility] HospitalComment on above:Performed By: #### CP, CDP #### [facility] [address] [place] [id number] Dredgemaster: Matthew Driscoll MDImmature granulocytes/100 WBC (Bld)0 %Normal0-5 [facility] HospitalComment on above:Performed By: #### CP, CDP #### [facility] [address] [place] [id number] Dredgemaster: Matthew Driscoll MDLymphocytes (Bld) [#/Vol]3.26 10*3/uLNormal 1.00-4.80[facility] HospitalCom[facility] on above:Performed By: #### CP, CDP #### [facility] [address] [place], [place] [id number] Dredgemaster: Matthew Sturtz, MDLymphocytes/100 WBC (Bld)33 %Frwwoz36-74EzglcCleveland Clinic Hillcrest HospitalComment on above:Performed By: #### CP, CDP #### [facility] [address] [place] [address] Dredgemaster: LUBA NegreteCH (RBC) [Entitic mass]28.5 dpXnzwew15.0-34.0 [facility] HospitalComment on above:Performed By: #### CP, CDP #### [facility] [address] [place] [address] Dredgemaster: LUBA NegreteCHC (RBC) [Mass/Vol]36.0 g/tYOrxdqr28.0-37.0[facility] HospitalComment on above:Performed By: #### CP, CDP #### [facility] [address] [place] [address] Dredgemaster: LUBA NegreteCV (RBC) [Entitic vol]79.3 fLLow80.0-100.0[facility] HospitalComment on above:Performed By: #### CP, CDP #### [facility] [address] [place] [address] Dredgemaster: LUBA Negreteonocytes (Bld) [#/Vol]0.55 10*3/uLNormal0.00-1.00 [facility] on above:Performed By: #### CP, CDP #### [facility] [address] [place] [address] Dredgemaster: LUBA Negreteonocytes/100 WBC (Bld)6 %Normal4-8[facility] HospitalComment on above:Performed By: #### CP, CDP #### [facility] [address] [place] [address] Dredgemaster: Tomas Negrete (Seg)60 %Rpofbu52-56AnvhoCleveland Clinic Hillcrest HospitalComment on above:Performed By: #### CP, CDP #### [facility] [address] [place], [place] [id number] Dredgemaster: Julia Negrete mean volume (Bld) [Entitic vol]9.9 fL Normal6.0-12.0[facility] on above:Performed By: #### CP, CDP #### [facility] [address] [place] [id number] Dredgemaster: Erika Negrete (Bld) [#/Vol]277 10*3/eLFfvpgw347-167 [facility] HospitalCom[facility] on above:Performed By: #### CP, CDP #### [facility] [address] [place] [address] Dredgemaster: KISHORE Negrete (Bld) [#/Vol]5.26 10*6/uLHigh4.00-5.20[facility] on above:Performed By: #### CP, CDP #### [facility] [address] [place] [id number] Dredgemaster: MAYRA NegreteBC (Bld) [#/Vol]10.0 10*3/uLNormal3.5-11.0[facility] on above:Performed By: #### CP, CDP #### [facility] [address] [place] [id number] Dredgemaster: CHITO Negreteomp Metabolic Profon 57-22-1020Xbzhrmi [Mass/Vol] 3.8 g/dLNormal3.5-5.2[facility] CenterCom[facility] on above:Performed By: #### CP, CDP #### [facility] [address] [place] [id number] Dredgemaster: Matthew Driscoll MDALT [Catalytic activity/Vol]17 U/LNormal5-33[facility] on above:Performed By: #### CP, CDP #### [facility] [address] [place] [address] Dredgemaster: Matthew Driscoll MDAnion gap [Moles/Vol]16 mmol/LNormal9-17Bon [facility]Mer[facility] HospitalCom[facility] on above:Performed By: #### CP, CDP #### [facility] [address] [place] [id number] Dredgemaster: Matthew Driscoll MDAST [Catalytic activity/Vol]12 U/LNormal<32[facility] on above:Performed By: #### CP, CDP #### [facility] [address] [place] [address] Dredgemaster: Matthew Driscoll MDBilirubin [Mass/Vol]0.6 mg/dLNormal0.3-1.2Bon [facility]Mer[facility] HospitalComasc[facility] on above:Performed By: #### CP, CDP #### [facility] [address] [place] [id number] Dredgemaster: Matthew Drsicoll MDCalcium [Mass/Vol]9.8 mg/dLNormal8.6-10.4[facility] on above:Performed By: #### CP, CDP #### [facility] [address] [place] [address] Dredgemaster: Matthew Driscoll MDChloride [Moles/Vol]87 mmol/SQkr20-692Zfw SecSCCI Hospital [facility] on above:Performed By: #### CP, CDP #### [facility] [address] [place] [id number] Dredgemaster: Matthew Driscoll MDCO2 [Moles/Vol]22 mmol/JVzalyr95-77Frh SecSCCI Hospital [facility] on above:Performed By: #### CP, CDP #### [facility] [address] [place], [place] [id number] Dredgemaster: Matthew Driscoll MDCreatinine [Mass/Vol]0.6 mg/dLNormal0.5-0.9Bon [facility] on above:Performed By: #### CP, CDP #### [facility] [address] [place], [place] [id number] Dredgemaster: Matthew Driscoll MDGlucose [Mass/Vol]579 mg/dLCritically hhwd22-07Zlz [facility] on above:Performed By: #### CP, CDP #### [facility] [address] [place] [address] Dredgemaster: Matthew Driscoll MDPotassium [Moles/Vol]4.4 mmol/LNormal3.7-5.3Bon [facility] on above:Performed By: #### CP, CDP #### [facility] [address] [place] [id number] Dredgemaster: Matthew Driscoll MDProtein [Mass/Vol]7.5 g/dLNormal6.4-8.3Bon [facility] on above:Performed By: #### CP, CDP #### [facility] [address] [place] [address] Dredgemaster: GRABIEL Negreteodium [Moles/Vol]125 mmol/CYyq722-624Jhq [facility] on above:Performed By: #### CP, CDP #### [facility] [address] [place] [address] Dredgemaster: Matthew Driscoll MDUrea nitrogen [Mass/Vol]21 mg/dLHigh6-20Bon [facility] on above:Performed By: #### CP, CDP #### [facility] [address] [place] [address] Dredgemaster: Elizabeth Negrete Ceox826 U/UUxks10-160YizwrCleveland Clinic Hillcrest HospitalComment on above:Performed By: #### CP, CDP #### [facility] [address] [place] [address] Dredgemaster: Matthew Driscoll MDBUN/CRE Idvvi21Buyv1-15LlskvCleveland Clinic Hillcrest Hospital Comment on above:Performed By: #### CP, CDP #### [facility] [address] [place] [address] Dredgemaster: Matthew Driscoll MDGFR/1.73 sq M.predicted among non-blacks MDRD (S/P/Bld) [Vol rate/Area]mL/min/{1.73_m2}Normal>60[facility] HospitalComment on above:Result Comment: These results are [...] tubular secretion.Performed By: #### CP, CDP #### [facility] [address] [place] [address] Dredgemaster: CHITO Negreteomprehensive Metabolic Panelon 20-57-7672EFT [Catalytic activity/Vol]173 U/LHigh35 - 104 U/LBon [facility] HospitalEst, Glom Filt Rate- PINFBon [facility] HospitalComment on above: These results are not [...] secretion. Interpretation and review of laboratory resultsAbnormalBon [facility] Urea nitrogen/Creatinine [Mass ratio]35 mg/mgHigh9 - 20[facility] Bon [facility] HospitalGlucose, Whole Bloodon 09-25-6723Rdnspvp [Mass/Vol]316 mg/kAColy10 - 99 mg/dLBon [facility] HospitalInterpretation and review of laboratory resultsAbnormRiverside Regional Medical Center Glucose [Mass/Vol]565 mg/dLCritically high65 - 99 mg/dLBon [facility] Interpretation and review of laboratory resultsAbnormSentara RMH Medical CenterGlucose,Whole Bloodon 18-02-9204Xgzkkvf [Mass/Vol]316 mg/cSSxtp82-25Obtzv [facility] HospitalGlucose [Mass/Vol]565 mg/dLCritically high 65-99MMercy Health Perrysburg HospitalPOCT glucoseon 65-47-3386Mljqhii [Mass/Vol]316 mg/dL [facility] HospitalInterpretation and review of laboratory resultsNormRiverside [facility] OK?yesR[facility]ide [facility] POCT glucoseOrdered By: Karolina Trujillo on 67-14-8880Hseiqyk [Mass/Vol]565 mg/dL [facility] HospitalInterpretation and review of laboratory resultsNormRiverside [facility] Hospital OK?[facility] Venous Bld Gas,POCon 86-77-6087SDD680.0NormalCleveland Clinic Hillcrest HospitalHCO3 (Bld) [Moles/Vol]23.5 mmol/GNsmvmi91.0-29.0[facility] HospitalOxygen saturation in Blood95.0 %High60.0-85.0[facility] HospitalpCO2, Okcitf00.2 mm HgLow41.0-51.0 [facility] HospitalpH,Venous7.499Qtgx6.320-7.430[facility] HospitalpO2, Flucmh54.8 mm MbVfar09.0-50.0[facility] HospitalPositive Base Excess (calc) 0.4 mmol/LNormal0.0-3.0[facility] HospitalVenous Blood Gas, POCon 08-28-2024 PAD078.0[facility] HospitalHCO3 (Bld) [Moles/Vol]23.5 mmol/L22.0 - 29.0 mmol/LBon [facility] HealthInterpretation and review of laboratory results AbnormalBon [facility] HospitalOxygen saturation in Blood95.0 %High60.0 - 85.0 %Bon [facility] HospitalpCO2, Ven33.2LowBon [facility] HealthpH, Ven7.457 High7.320 - 7.430Bon [facility] HealthPO2, Ven70.8HighBon [facility] HealthPositive Base Excess, Ven0.4 mmol/L0.0 - 3.0 mmol/LBon [facility] HospitalBon [facility] HealthOffice Visiton 33-12-9730Zigavh-up [id number] Escobar Ortega 1980 F Date Provider Department Center 02/05/2023 Theron8-FELIPA [facility] Family History Problem Relation Age of Onset Diabetes Father Coronary artery disease Father Kidney disease Father Family Status - Relation Status Age at Father Level of Service:00186 [place] OFFICE/OUTPATIENT [facility] 30-44 MINUTESNoSelect Medical [facility], AvonCardiovascular Reporton 01-25-2023 Cardiovascular [id number]#1.00CD:[address] [place], [place] [address]Consent for PICC lineon 16-37-7413Argzocu for PICC [id number]#1.00CD:[address] [place], [place] [address]Discharge Instructionson 62-94-9853Glrjrguzm Instructions [id number]#1.00CD:[address] [place], [place] [address]Pre-Certification Formon 24-42-9436Orl-Certification Form [id number]#1.00CD:[address] [place], [place] [address]BMPon 00-82-1401Vjnwn gap [Moles/Vol]12 mmol/LNormal6-16[facility] HospitalComment on above:Performed By: #### 2993936, 4918870, 02510280, 778411536, 7100102, 9157111 #### [facility] [address] [place], [place] [address]Pkkwlbz [Mass/Vol]8.2 mg/dLLow8.9-11.1FSycamore Medical CenterComment on above:Performed By: #### 3653711, 2445566, 79245026, 132471689, 5862157, 4617423 #### [facility] [address] [place], [place] [address]Gbxvspyn [Moles/Vol]108 mmol/ORbvbxs036-592UjdhbeChillicothe HospitalComment on above:Performed By: #### 8218843, 0851267, 04847847, 215637463, 3889867, 2020846 #### [facility] [address] [place], [place] [address]SQ6 [Moles/Vol]19 mmol/LDwk39-46BhmdmyChillicothe Hospital Comment on above:Performed By: #### 4361728, 1935895, 77888137, 389521503, 8033764, 3103576 #### [facility] [address] [place], [place] [address]Vvgmlhhzud [Mass/Vol]0.5 mg/dLNormal0.5-1.3FSycamore Medical CenterComment on above:Performed By: #### 7545426, 4599729, 01389148, 653249118, 3072232, 8807160 #### [facility] [address] [place], [place] [address]Mepnapw [Mass/Vol]183 mg/wBEyyedf23-862NhcosyChillicothe HospitalComment on above:Result Comment: If this glucose result represents a fasting glucose, interpretation should refer tothe following reference range: 55-99 mg/dLPerformed By: #### 2338718, 1049518, 51615342, 424988104, 1957610, 8688971 #### [facility] [address] [place], [place] [address]Wjmfguxmk [Moles/Vol]3.8 mmol/LNormal3.5-5.3FSycamore Medical CenterComment on above:Performed By: #### 6703295, 5973429, 24753498, 588338920, 5814083, 7326675 #### [facility] [address] [place], [place] [address]Htjhst [Moles/Vol]135 mmol/ZFjthih927-613OsxfgxChillicothe HospitalComment on above:Performed By: #### 8644213, 1721768, 56196211, 070665446, 2622351, 7179195 #### [facility] [address] [place], [place] [address]Kbqg nitrogen [Mass/Vol]11 mg/dLNormal5-21[facility] HospitalComment on above:Performed By: #### 1388965, 7406295, 00335022, 737577295, 3801297, 3973383 #### [facility] [address] [place], [place] [address]Dddv nitrogen/Creatinine [Mass ratio]22 No ThcorGcbx07-08QtolywChillicothe HospitalComment on above:Performed By: #### 6361748, 0519541, 03450560, 106919381, 4218987, 8875831 #### [facility] [address] [place] [address]OKD w/Indiceson 41-24-2889Uqmndejaibj distribution width (RBC) [Ratio]14.2 %Hbbeol90.9-14.2FSycamore Medical CenterComment on above: Performed By: #### 4139038, 1074326, 00648637, 846065633, 7657370, 9423312 #### [facility] [address] [place], [place] [address]Surpxzzaas (Bld) [Volume fraction]38.3 %Eatfem79.0-46.0[facility] HospitalComment on above:Performed By: #### 0902301, 1700095, 40053722, 404643080, 9098775, 9149110 #### [facility] [address] [place], [place] [address]Qygpqyafpp (Bld) [Mass/Vol]13.3 g/yHUaeftr10.0-16.0[facility] HospitalComment on above:Performed By: #### 7681992, 7133215, 19644400, 847764640, 7138596, 5901905 #### [facility] [address] [place], [place] [address]KLI (RBC) [Entitic mass]28.9 ioQbirmr69.0-34.0[facility] HospitalComment on above:Performed By: #### 2727015, 5350056, 23794013, 961948330, 2811272, 9665420 #### [facility] [address] [place] [address]UZCE (RBC) [Mass/Vol]34.8 g/sQGfykrm41.4-36.0[facility] HospitalComment on above:Performed By: #### 6186286, 6846817, 36025304, 339578536, 7675238, 6338676 #### [facility] [address] [place] [address]YQB (RBC) [Entitic vol]83.1 bBDbgmln91.0-100.0[facility] HospitalComment on above:Performed By: #### 3782397, 5597741, 72556089, 186252993, 7649887, 4507931 #### [facility] [address] [place] [address]Elobnnht mean volume (Bld) [Entitic vol]8.6 fLNormal6.4-10.8 [facility] HospitalComment on above:Performed By: #### 1781062, 6327459, 75651699, 045832232, 1364793, 6732405 #### [facility] [address] [place] [address]Kzbssbdtc (Bld) [#/Vol]237.0 E9/SLfqamt672.0-500.0[facility] HospitalComment on above:Performed By: #### 1864523, 3054873, 34087442, 231257353, 6438946, 1186185 #### [facility] [address] [place], [place] [address]PSS (Bld) [#/Vol]4.6 E12/LNormal4.3-5.9[facility] HospitalComment on above:Performed By: #### 9768106, 9902882, 74340519, 423858549, 7897133, 0383724 #### [facility] [address] [place], [place] [address]EJN corrected for nucl RBC Auto (Bld) [#/Vol]9.5 E9/LNormal 4.0-11.0[facility] HospitalComment on above:Performed By: #### 1663794, 5341228, 02499347, 325513271, 4666748, 8925259 #### [facility] [address] [place], [place] [address]YNUEYVTMXOyesgoj By: Lab ROPUser on 82-14-2450Cdxiqcc [Mass/Vol]255 mg/aXYlpm75 - 99 mg/dLFTMC POC SubsectionComment on above:Result Comment: Notified RN/MDPOC Device [id number] Interpretation CodeFTMC POC SubsectionPOC User [id number] Interpretation CodeFTMC POC Subsection POC UsernameMEDINA, MARIAHInvalid Interpretation CodeFTMC POC SubsectionGlucose [Mass/Vol]192 mg/dKAhil93 - 99 mg/dLFTMC POC SubsectionComment on above:Result Comment: Cleaned MeterPOC Device [id number] Interpretation CodeFTMC POC SubsectionPOC User [id number] Interpretation CodeFTMC POC Subsection POC UsernameETZHUMBLE AGUILAHALAInvalid Interpretation CodeFTMC POC Subsection CHEMISTRYOrdered By: SYSTEM SYSTEM on 46-35-3356Uauyw gap [Moles/Vol]12 mmol/L Normal6 - 16 mEq/LFTMC RemisolCalcium [Mass/Vol]8.2 mg/dLLow8.9 - 11.1 mg/dLFT RemisolChloride [Moles/Vol]108 mmol/HHftavi045 - 111 mmol/LFTMC RemisolCO2 [Moles/Vol]19 mmol/LLow21 - 31 mmol/LFTMC RemisolCreatinine [Mass/Vol]0.5 mg/dL Normal0.5 - 1.3 mg/dLFTMC RemisolGFR/1.73 sq M.predicted among non-blacks MDRD (S/P/Bld) [Vol rate/Area]118 mL/min/1.73 o9Jogfqy>=59mL/min/1.73 m2[facility] Chem S Glucose [Mass/Vol]183 mg/oVWwiqur39 - 199 mg/dLFT RemisolMagnesium [Mass/Vol] 1.5 mg/dLNormal1.3 - 2.4 mg/dLFT RemisolPotassium [Moles/Vol]3.8 mmol/LNormal 3.5 - 5.3 mmol/LFTMC RemisolSodium [Moles/Vol]135 mmol/LRsbbqx950 - 145 mmol/L [facility] RemisolTroponin I.cardiac [Mass/Vol]1304.50 pg/mLInvalid Interpretation Code10.10 - 27.10 pg/mLINTEGRIS SOUTHWEST [facility] [place] RemisolComment on above:Result Comment: Critical Result verified by previous result\ Critical Result I_hsTnI:1304.5 Called to MICHELE HERRMANN at 3S by HARDEEP HANSEN and read back for confirmation at 01/23/2023 07:42:43Urea nitrogen [Mass/Vol]11 mg/dLNormal5 - 21 mg/dLFT RemisolUrea nitrogen/Creatinine [Mass ratio]22 mg/ukUjqt71 - 20FT RemisolCapillary Glucose POCon 20-79-2533Jppgdpe [Mass/Vol]255 mg/sPVobk74-32EimlkiChillicothe Hospital Comment on above:Result Comment: Notified RN/MDPerformed By: #### 8071243, 6404216, 06645013, 821752890, 7815647, 8233022 #### [facility] [address] [place] [address]Ztaurab [Mass/Vol]192 mg/dFBcnd42-13Wrxdzn[address] [place] [address] Comment on above:Result Comment: Cleaned MeterPerformed By: #### [id number] ####[facility] [address] [place] [address] Consultation Noteon 99-70-6641Ndyncvunoegt NoteChief Complaint chest pain radiating to arm [...] deep vein thrombosis (DVT) prophylaxis (Z79.899: Other detention (current) drug therapy) Orders: ticagrelor, 180 mg [...] 2 tab(s), Or (more content not included)... [facility] HospitalComment on above:Result Comment: Electronically Signed By: Kriss HAIDER, Abhishek Hagan\.br\Date and Time Signed: 01/22/23 22:12 EDTDischarge Note-Nursingon 91-23-4017Rshkqhuoo Note-NursingPatient prescribed Brillinta for discharge. Her preferred pharmacy is [facility] in [place] which does not have Brillinta in stock until Wednesday. This RN asked patient to switch pharmacy for this medication so she could sweet pickle maker today. Patient refuses to switch pharmacies. She states her sister will not take her to any other pharmacy to pick this up. Per Dr. Lawrence, ok to pull 4 Brillinta to send home with patient to have enough until she can sweet pickle maker the medication from her pharmacy.Normal [facility]othe HospitalHEMATOLOGYOrdered By: Cristin Ibarra on 01-23-2023 Erythrocyte distribution width (RBC) [Ratio]14.2 %Tzfrgr08.9 - 14.2 %[facility] HemeAutoSSHematocrit (Bld) [Volume fraction]38.3 %Uuwtwa21.0 - 46.0 %[facility] HemeAutoSSHemoglobin (Bld) [Mass/Vol]13.3 g/dWSmmwyk80.0 - 16.0 gm/dLFTMC HemeAutoSSMCH (RBC) [Entitic mass]28.9 apBliako75.0 - 34.0 pgFTMC HemeAutoSSMCHC (RBC) [Mass/Vol]34.8 g/hAHolple24.4 - 36.0 gm/dLFTMC HemeAutoSSMCV (RBC) [Entitic vol]83.1 zKBjnmom73.0 - 100.0 fLFT HemeAutoSSPlatelet mean volume (Bld) [Entitic vol]8.6 fLNormal6.4 - 10.8 fLFTMC HemeAutoSSPlatelets (Bld) [#/Vol]237.0 E9/QVrshvx965.0 - 500.0 E9/LFTMC HemeAutoSSRBC (Bld) [#/Vol]4.6 E12/LNormal4.3 - 5.9 E12/LFTMC HemeAutoSSWBC corrected for nucl RBC Auto (Bld) [#/Vol]9.5 E9/LNormal4.0 - 11.0 E9/LFTMC HemeAutoSSInpatient Clinical Summaryon 94-06-3895Uunmcekxa Clinical Summary [address] [address] Clinical Summary Person Information: Name: ESCOBAR ORTEGA Age: 43 Years : 1980 Sex: Female PCP: Gentry Carrillo MD Marital Status: Phone: [phone] Race: White Ethnicity: Non- or Language: Colombian Visit Id: Visit Reason: Chest pain; CHEST PAIN Speciality: Acuity: Enc Type: Observation Med Service: Medical Arrival: 01/21/2023 16:19:22 Discharge: Dispo Type: Admitted as IP to this Hosp Address: [address] [phone] Provider Notes: Diagnosis: 1:NSTEMI (non-ST elevation myocardial [...] Follow up: With: Address: When: Abhishek Monterroso [address] [place] [address] Business (1) Within 2 weeks Comments: Call for followup appointment With: Address: When: Gentry Carrillo [address] [place] [address] [place] [address] Business (1) 01/27/2023 9:30 AM Patient Education Information: CV - Cardiovascular PCI Discharge Instructions (CUSTOM)[facility] HospitalInpatient Patient Summaryon 37-91-5755Adhfokccj Patient Summary ESCOBAR ORTEGA :1980 Visit Date:01/21/2023 [...] When: 01/27/2023 09:30 AM EDT Where: [address] [place] [address]- Business (1) Follow Up with Abhishek Monterroso When: Within 2 weeks Comments: Call for followup appointment Where: [address] [place] [phone]- Business (1) Medications What How Much When Why Instructions Next Dose New aspirin (aspirin 81 mg Oral EC Tab) 1 Tablets By Mouth Every day Refills: 1 Pickup at [facility] #[id number] 01/24 New atorvastatin (Lipitor 80 mg Tab) 1 Tablets By Mouth Every day Refills: 1 Pickup at [facility] #[id number] 01/24 New metoprolol (Metoprolol tartrate 25 mg Tab) 1 Tablets By Mouth 2 times a day Refills: 1 Pickup at [facility] #[id number] 01/23 9:00pm New nitroglycerin (nitroglycerin 0.4 mg sublingual Tab) 1 Tablets Sublingual Every 5 minutes as needed for Chest pain not to exceed 3 doses/ 15 min--if pain persists, seek medical attention [id number] New ticagrelor (Brilinta (ticagrelor) 90 mg oral tablet) 1 Tablets By Mouth 2 times a day Chest pain Elevated troponin NSTEMI (non-ST elevation myocardial infarction) Hypertensive urgency Right shoulder pain [facility]: [id number] 01/23 9:00pm Changed insulin glargine (Lantus insulin) [...] times a day 01/23 9:00pm [id number]: [address] [place] [phone] What How Much When Comments Stop Taking naproxen (naproxen sodium 550 mg Tab) 1 Tablets By Mouth 2 times a day Test Results CBC BMP WBC: 9.5 E9/L (01/23/23 06:23:00) Glucose Lvl: 183 mg/dL (01/23/23 06:23:00) RBC: 4.6 E12/L (01/23/23 06:23:00) BUN: 11 mg/dL (01/23/23 06:23:00) HGB: 13.3 gm/dL (01/23/23 06:23:00) Creatinine: 0.5 mg/ (more content not included)...[facility] HospitalIn[facility] Patient Summary [address] [address] Patient Discharge Instructions PERSON INFORMATION [...] Follow up: With: Address: When: Abhishek Monterroso [address] [place] [address] Business (1) Within 2 weeks Comments: Call for followup appointment With: Address: When: Gentry Carrillo [address] [place] [address] [place] [address] Business (1) 01/27/2023 9:30 AM [...] a day. Comment: MEDICATIO (more content not included)...[facility] Interdisciplinary Note - Case Manageron 53-16-5825Czaygyxjqzjlizmsv Note - Case ManagerPt is awake and [...] boyfriend and [place]. . PCP verified and insurance informationreviewed and DME discussed. Contact information provided and white board updated.[facility] Comment on above:Result Comment: Electronically Signed By: Todd CASEY, Jeanie\.brenna\Date and Time Signed: 01/23/23 12:44 EDTInterdisciplinary Note - Nursingon 53-69-5716Blvwczgujznfkmhev Note - NursingPatient prescribed Brillinta for discharge. Her preferred pharmacy, [facility] in [place], will not have any of this medication until Wednesday. Patient refuses to switch pharmacies at this time to sweet pickle maker enough to last her through the weekend. She states her sister will not take her to any other pharmacy. Per Dr. Lawrence, ok to pull 4 doses of Brillinta 90mg from RX station to send home with patient until she can sweet pickle maker medication on Wednesday. Education provided to patient on importance of taking Brillinta exactly how it is prescribed. Informed patient that if she cannot get the rest of her Brillinta on Wednesday for any reason to contact the case hardener or hospital supervisor production managing per Dr. Lawrence.Berger HospitalMagnesiumon 61-52-8027Idnivpocy [Mass/Vol]1.5 mg/dLNormal1.3-2.4[facility] Comment on above:Performed By: #### 4192469, 5750329, 20947217, 026708922, 6690688, 5633514 #### [facility] [address], [place] [address]Vsyzqlf Recordon 82-94-7222Pdjzzrr Record [id number]#1.00CD:127[facility] [id number]#1.00CD:127Noal [facility] Record [id number]#1.00CD:127No[facility] [id number]#1.00CD:[address] [place], [place] [address]Operative Reporton 95-87-0972Wphswzmgv Report Indication for Surgery Non-STEMI Preoperative Diagnosis [...] patient will additionally be counseled by the Nurse Assessor team and in follow-up. Complications None Technique Following full and informed consent the patient was brought to the Nurse Assessor where sterile prep and drape were administered in usual fashion. Anesthesia was obtained in the right wrist with lidocaine after administration of conscious sedation. A 5/6 slender Terumo sheath was placed in the right radial artery without complication. Nitroglycerin and nicardipine were given via the sheath and heparin was given intravenously. A 5 Irish JACKE catheter was advanced and selectively engaged in the left main coronary artery and right coronary artery each, where selective injections were performed. A pigtail catheter was placed in the left ventricle where hemodynamic measurements the left ventricle were made and a bolus was given for left ventriculography. A pullback gradient was obtained. A 6 Irish jl3.5 catheter was advanced and selectively engaged [...] at the end of the procedure without complication.Berger HospitalComment on above:Result Comment: Electronically Signed By: Kriss HAIDER, Abhishek Hagan\.br\Date and Time Signed: 01/22/23 22:16 EDTProgress Note-Physicianon 19-45-9437Vhrpvmri Note-PhysicianPatient with recent non-STEMI and stent placement who is on Brilinta. Prescription sent to her pharmacy and they will not have it available till Wednesday. Patient is not willing to change her pharmacy to fill it somewhere else. She is medically stable for discharge and case hardener cleared her. We will give for Brilinta from here in order to get her through the weekend and prevent in-stent rethrombosis and potential complication. Nurse will give for medications which will cover patient until Wednesday morning and if any issue patient is to call supervisor production managing or case hardener to get it filled somewhere else.Berger HospitalComment on above:Result Comment: Electronically Signed By: [...] Lipitor, lisinopril, Lopressor. Treated with Lovenox. Ordered: [facility] Hospital Care/Day Moderate 35 Minutes 51054 2. Coronary artery disease (I25.10: Atherosclerotic heart disease of lummi coronary artery withoutangina pectoris) As seen on cardiac catheterization. Patient has coronary artery disease with mid left circumflex artery occlusion requiring 1 drug-eluting stent placement on 01/22/2023. Continue on aspirin, Brilinta, Lipitor, lisinopril and Lopressor. Ordered: [facility] Hospital Care/Day Moderate 35 Minutes 39878 3. Chest pain (R07.9: Chest pain, unspecified) Secondary to above. Resolved. Ordered: [facility] Hospital Care/Day Moderate 35 Minutes 61733 4. Elevated troponin (R77.8: Other specified abnormalities of plasma proteins) Secondary to above. Resolved. [facility] Mod[facility] 35 Minutes 79705 5. Hypertensive urgency (I16.0: Hypertensive urgency) Resolved. Continue on lisinopril and metoprolol. Ordered: [facility] Hospital Care/Day Moderate 35 Minutes 98964 6. Right shoulder pain (M25.511: Pain in right shoulder) Secondary to above #1. With atypical presentation. Ordered: [facility] Hospital Care/Day Moderate 35 Minutes 50923 7. Leukocytosis (D72.829: Elevated white blood cell [...] deep vein thrombosis (DVT) prophylaxis (Z79.899: Other detention (current) drug therapy) SCDs. Disposition: Home either today or in a.m. pending cardiology final recommendations. I discussed the diagnosis and plan of care with the patient at the bedside. Moderate level of MDM based on addressing above issues. This documentation was transcribed using voice recognition software. Several attempts were made to ensure accuracy. However inadvertent computerized gis professor errors may be present. Ellie Obando. Hospitalist. [...] hydrALAZINE mL -- 0 (more content not included)...NormalChillicothe HospitalComment on above:Result Comment: Electronically Signed By: GAGE HAIDER, Ellie\.br\Date and Time Signed: 01/23/23 09:13 EDTTroponinon 84-08-2583Rftsvilm I.cardiac [Mass/Vol]1304.50 pg/kIMlqjjlej82.10-27.10Chillicothe HospitalComment on above:Result Comment: Critical Result verified [...] Sensitivity Troponin I Instructions For Use, [place], March 2018)Performed By: #### 5292881, 7221541, 73228395, 357209226, 5299089, 0298747 #### [facility] [address], [place] [address]bJRQeo 55-58-0298ZQV/1.73 sq M.predicted among non-blacks MDRD (S/P/Bld) [Vol rate/Area]118 mL/min/1.73 d0Bmgbie>=59[facility] Comment on above:Order Comment: Order added by Discern Expert.Result Comment: Chronic kidney disease could be indicated at eGFR's of less than 60 mL/min/1.73m2. Kidney failure is indicated at less than 15 mL/min/1.73m2. Performed By: #### 3489224, 7277052, 45498805, 569338325, 4546382, 4534540 #### [facility] [address], [place] [address]Yndk Diffon 15-88-3592Vnlrurzht/100 WBC (Bld)0.4 %Normal0.0-2.0 [facility]illicothe HospitalComment on above:Order Comment: Order Added by Discern Expert.Performed By: #### 5088027, 4930989, 62295986, 185715016, 4307520, 9217194 #### [facility] [address] [place] [address]Vtbbjjein/Leukocytes Auto (Bld) [Pure # fraction]0.0 E9/LNormal 0.0-0.2FSycamore Medical CenterComment on above:Order Comment: Order Added by Discern Expert.Performed By: #### 4860070, 2674825, 57796287, 251702182, 5217090, 0007610 #### [facility] [address] [place] [address]75[address]Qcgtzmctzrp/100 WBC (Bld)0.2 %Normal0.0-8.0Ch[facility]icothe HospitalComment on above:Order Comment: Order Added by Discern Expert.Performed By: #### 5625951, 8736027, 09963605, 599917027, 1195397, 0985683 #### [facility] [address] [place] [address]Oszbsnntohm/Leukocytes Auto (Bld) [Pure # fraction]0.0 E9/L Normal0.0-0.5FSycamore Medical CenterComment on above:Order Comment: Order Added by Discern Expert.Performed By: #### 8959314, 3867323, 14829234, 074749101, 1800753, 3980171 #### [facility] [address] [place] [address]Flehpllysml/100 WBC (Bld)24.9 %Mfasyg96.0-50.0Ch[facility]icothe HospitalComment on above:Order Comment: Order Added by Discern Expert. Performed By: #### 8755379, 1780317, 60153293, 763729943, 5700728, 5983764 #### [facility] [address] [place] [address]Shgfznkwyqa/Leukocytes Auto (Bld) [Pure # fraction]2.6 E9/L Normal1.0-4.0[facility]icothe HospitalComment on above:Order Comment: Order Added by Discern Expert.Performed By: #### 5366667, 0097037, 21399369, 961303260, 9706698, 0793429 #### [facility] [address], [place] [address]Voaagshlv/100 WBC (Bld)4.6 %Normal4.0-14.0[facility]icothe HospitalComment on above:Order Comment: Order Added by Discern Expert.Performed By: #### 7655354, 4851243, 04685839, 820116221, 1500537, 0181497 #### [facility] [address] [place] [address] 098[address]Kfxmglayq/Leukocytes Auto (Bld) [Pure # fraction]0.5 E9/LNormal 0.2-1.0[facility]othe HospitalComment on above:Order Comment: Order Added by Discern Expert.Performed By: #### 1270512, 4352291, 84670982, 019220339, 5489638, 0119569 #### [facility] [address] [place] [address]Fiataubsudf/100 WBC (Bld)69.9 %Fpeaqv55.0-75.0[facility]othe HospitalComment on above:Order Comment: Order Added by Discern Expert. Performed By: #### 6183570, 1542980, 35651169, 052568400, 5766137, 3373407 #### [facility] [address] [place] [address]Lzezcfnzujp/Leukocytes Auto (Bld) [Pure # fraction]7.4 E9/L Normal2.0-7.5FSycamore Medical CenterComment on above:Order Comment: Order Added by Discern Expert.Performed By: #### 5185767, 1402223, 03772385, 265845923, 9132587, 2235486 #### [facility] [address] [place] [address]XOBjx 15-87-7050Yaota gap [Moles/Vol]5 mmol/LLow6-16[facility]othe HospitalComment on above:Performed By: #### 9826691, 3171519, 82556340, 838304994, 0011272, 4399119 #### [facility] [address], [place] [address]Tmpcndw [Mass/Vol]8.0 mg/dLLow8.9-11.1FSycamore Medical CenterComment on above:Performed By: #### 2219714, 0615926, 22748773, 750433033, 1494994, 6078016 #### [facility] [address], [place] [address]Wazvvcro [Moles/Vol]107 mmol/DBoybtl960-375DeogwnChillicothe HospitalComment on above:Performed By: #### 1394300, 6872525, 97641749, 050088511, 0778092, 4907725 #### [facility] [address], [place] [address]XD3 [Moles/Vol]23 mmol/PJwqwmp10-51AxqgamChillicothe Hospital Comment on above:Performed By: #### 2455185, 4676864, 53542551, 267536294, 4220318, 0982657 #### [facility] [address], [place] [address]Qxmnnzplyb [Mass/Vol]0.6 mg/dLNormal0.5-1.3FSycamore Medical CenterComment on above:Performed By: #### 9377802, 2116734, 62167137, 158475144, 6834292, 5633239 #### [facility] [address], [place] [address]Madklbf [Mass/Vol]293 mg/oYDevg31-229MqmernChillicothe HospitalComment on above:Result Comment: If this glucose result represents a fasting glucose, interpretation should refer tothe following reference range: 55-99 mg/dLPerformed By: #### 2523512, 5478836, 08107418, 367083669, 5525739, 3429991 #### [facility] [address], [place] [address]Mlrswxjtu [Moles/Vol]4.0 mmol/LNormal3.5-5.3FSycamore Medical CenterComment on above:Performed By: #### 9507641, 3372703, 82329374, 280081280, 5978810, 8187506 #### [facility] [address], [place] [address]Bhryax [Moles/Vol]131 mmol/HErj384-187RuhglaChillicothe HospitalComment on above:Performed By: #### 6427847, 3597449, 46823330, 322649519, 6172314, 3904094 #### [facility] [address], [place] [address]Dbnw nitrogen [Mass/Vol]20 mg/dLNormal5-21Ch[facility]icothe HospitalComment on above:Performed By: #### 3565466, 7039656, 92976843, 967355906, 9758738, 5030575 #### [facility] [address], [place] [address]Zlrs nitrogen/Creatinine [Mass ratio]33 No NozzdWmsz30-31EhncplChillicothe HospitalComment on above:Performed By: #### 0622330, 7895443, 33940429, 043403172, 0465625, 2347761 #### [facility] [address] [place] [address]GPD w/ Auto Diffon 55-81-1401Stwfbifilhw distribution width (RBC) [Ratio]14.0 %Emnave47.9-14.2FSycamore Medical CenterComment on above: Performed By: #### 2367925, 4369179, 66862449, 735714931, 2788614, 3250259 #### [facility] [address], [place] [address]Ecdkkuoemx (Bld) [Volume fraction]35.5 %Yjnddy21.0-46.0[facility]othe HospitalComment on above:Performed By: #### 4306391, 8339089, 08424494, 096499171, 3281922, 5468528 #### [facility] [address] [place] [address]Ocinuamqhn (Bld) [Mass/Vol]12.5 g/nOWermop19.0-16.0Ch[facility]icothe HospitalComment on above:Performed By: #### 2511027, 3941660, 63727576, 521933750, 0185558, 1467448 #### [facility] [address] [place] [address] 504[address]NVC (RBC) [Entitic mass]28.6 alVqrdza76.0-34.0[facility]othe HospitalComment on above:Performed By: #### 7493379, 7114544, 66523563, 546574222, 1427439, 2040714 #### [facility] [address] [place] [address]OVNQ (RBC) [Mass/Vol]35.1 g/oRLzgrbo66.4-36.0[facility]othe HospitalComment on above:Performed By: #### 7671417, 0505483, 37987947, 615201670, 0234311, 4544445 #### [facility] [address] [place] [address]FMF (RBC) [Entitic vol]81.5 fYIbnbbj55.0-100.0[facility]othe HospitalComment on above:Performed By: #### 3411231, 8926552, 78721829, 890792936, 1192644, 4572955 #### [facility] [address] [place] [address]Belqlgvz mean volume (Bld) [Entitic vol]8.9 fLNormal6.4-10.8 [facility] HospitalComment on above:Performed By: #### 9633370, 5127965, 52860551, 681039567, 7340950, 7978492 #### [facility] [address] [place] [address]Lvetddecs (Bld) [#/Vol]246.0 E9/XCobfyb833.0-500.0[facility] HospitalComment on above:Performed By: #### 2300690, 1705739, 40048515, 793284628, 2857711, 2543911 #### [facility] [address], [place] [address]BOA (Bld) [#/Vol]4.4 E12/LNormal4.3-5.9[facility]othe HospitalComment on above:Performed By: #### 8189001, 8281527, 46934611, 202071064, 6579649, 6331631 #### [facility] [address], [place] [address]IZC corrected for nucl RBC Auto (Bld) [#/Vol]10.6 E9/LNormal 4.0-11.0[facility]othe HospitalComment on above:Performed By: #### 4444661, 7197655, 28429641, 014070679, 8944858, 5515070 #### [facility] [address], [place] [address]AVIAIWHECRziueey By: Will Ash on 30-99-1481Eygxcku [Mass/Vol]378 mg/mPLwho21 - 99 mg/dLINTEGRIS [facility] [place] POC SubsectionComment on above:Result Comment: Notified RN/MDPOC Device [id number] Interpretation CodeFT POC SubsectionPOC User [id number] Interpretation CodeINTEGRIS SOUTHWE[facility] [place] POC Subsection POC UsernamEdson Arnoldvalid Interpretation CodeINTEGRIS SOUTHWEST [facility] [place] POC Subsection CHEMISTRYOrdered By: Jenn Lisa on 74-33-0098Prprt gap [Moles/Vol]5 mmol/L Low6 - 16 mEq/LFTMC RemisolCalcium [Mass/Vol]8.0 mg/dLLow8.9 - 11.1 mg/dLINTEGRIS S[facility] [place] RemisolChloride [Moles/Vol]107 mmol/RLlngmq371 - 111 mmol/LFTMC Remisol Cholesterol [Mass/Vol]205 mg/wLQvoc886 - 200 mg/dLINTEGRIS S[facility] [place] RemisolCholesterol in HDL [Mass/Vol]35 mg/dLInvalid Interpretation CodeFT RemisolCholesterol in LDL [Mass/Vol]115 mg/dLNormal<=129mg/dLFT RemisolCholesterol in VLDL [Mass/Vol]60 mg/dLHigh7 - 40 mg/dLFT RemisolCO2 [Moles/Vol]23 mmol/LJttjjs99 - 31 mmol/L FT RemisolCreatinine [Mass/Vol]0.6 mg/dLNormal0.5 - 1.3 mg/dLFT Remisol Glucose [Mass/Vol]293 mg/jCHmbq51 - 199 mg/dLFT RemisolPotassium [Moles/Vol] 4.0 mmol/LNormal3.5 - 5.3 mmol/LFTMC RemisolSodium [Moles/Vol]131 mmol/LTqw525 - 145 mmol/LFTMC RemisolTriglyceride [Mass/Vol]300 mg/dLHigh<=149mg/dLFT RemisolUrea nitrogen [Mass/Vol]20 mg/dLNormal5 - 21 mg/dLFTMC RemisolUrea nitrogen/Creatinine [Mass ratio]33 mg/ysRsdt26 - 20FT RemisolCHEMISTRYOrdered By: SYSTEM SYSTEM on 01-74-9880OZP/1.73 sq M.predicted among non-blacks MDRD (S/P/Bld) [Vol rate/Area]113 mL/min/1.73 h5Nezelj>=59mL/min/1.73 m2IN[facility] [place] Chem S Troponin I.cardiac [Mass/Vol]445.10 pg/mLInvalid Interpretation Code10.10 - 27.10 pg/mLMC RemisolComment on above:Result Comment: Critical Result verified by previous result\ Critical Result I_hsTnI:445.1 Called to ROSSY MOE at 3N by VERONIQUE REID and read back for confirmation at 01/22/2023 01:58:36 CHEMISTRYOrdered By: Christiano Clay on 48-32-1017HsN6u (Bld) [Mass fraction] 11.1 %High<=5.9%[facility] [place] ChemAutoSSCapillary Glucose POCon 31-26-8383Ybuveco [Mass/Vol]378 mg/wTShkn52-06Iuypsi78 [address] StreetComment on above:Result Comment: Notified RN/MDPerformed By: #### [id number] ####[facility] [address] [place], [place] [address]Vnhglqo [Mass/Vol]245 mg/dL [address] StreetComment on above:Result Comment: Notified RN/MDPerformed By: #### 4888086, 0467271, 51901877, 664275661, 8563704, 1120038 #### [facility] [address], [place] [address]Rbdizxo [Mass/Vol]268 mg/hHHsbb17-18Jxgbgp[address] Comment on above:Result Comment: Notified RN/MDPerformed By: #### [id number] ####[facility] [address] [place] [address] Glucose [Mass/Vol]215 mg/sWCdyq61-02Tiwiqw78 [address] StreetComment on above: Result Comment: Notified RN/MDPerformed By: #### [id number] ####[facility] [address] [place], [place] [address]Blnfvul [Mass/Vol]378 mg/xFRqin85-35Ceuyrn78 [address] StreetComment on above:Result Comment: Notified RN/MDPerformed By: #### 8467343, 5469684, 97524126, 691805956, 3044641, 8449494 #### [facility] [address], [place] [address]Rartimetoqrewe Reporton 48-10-6258Spsvublwpaoihr Report [id number]#2.00CD:127NormalChillicothe HospitalHEMATOLOGYOrdered By: SYSTEM SYSTEM on 32-76-4266Wjifitmzl/100 WBC (Bld) 0.4 %Normal0.0 - 2.0 %[facility] HemeAutoSSBasophils/Leukocytes Auto (Bld) [Pure # fraction]0.0 E9/LNormal0.0 - 0.2 E9/LFTMC HemeAutoSSEosinophils/100 WBC (Bld)0.2 %Normal0.0 - 8.0 %[facility] HemeAutoSSEosinophils/Leukocytes Auto (Bld) [Pure # fraction]0.0 E9/LNormal0.0 - 0.5 E9/LFTMC HemeAutoSSLymphocytes/100 WBC (Bld) 24.9 %Whxlhc37.0 - 50.0 %[facility] HemeAutoSSLymphocytes/Leukocytes Auto (Bld) [Pure # fraction]2.6 E9/LNormal1.0 - 4.0 E9/LFTMC HemeAutoSSMonocytes/100 WBC (Bld)4.6 %Normal4.0 - 14.0 %[facility] HemeAutoSSMonocytes/Leukocytes Auto (Bld) [Pure # fraction]0.5 E9/LNormal0.2 - 1.0 E9/LFTMC HemeAutoSSNeutrophils/100 WBC (Bld) 69.9 %Uwryom52.0 - 75.0 %[facility] HemeAutoSSNeutrophils/Leukocytes Auto (Bld) [Pure # fraction]7.4 E9/LNormal2.0 - 7.5 E9/LFTMC HemeAutoSSHEMATOLOGYOrdered By: Anabella Tiwari on 22-54-1314Zhxaiyottii distribution width (RBC) [Ratio]14.0 % Mcrrjh54.9 - 14.2 %[facility] HemeAutoSSHematocrit (Bld) [Volume fraction]35.5 %Normal 34.0 - 46.0 %[facility] HemeAutoSSHemoglobin (Bld) [Mass/Vol]12.5 g/nBJafzfh34.0 - 16.0 gm/dLFTMC HemeAutoSSMCH (RBC) [Entitic mass]28.6 wxHypptb91.0 - 34.0 pgFTMC HemeAutoSSMCHC (RBC) [Mass/Vol]35.1 g/pUAdpycb83.4 - 36.0 gm/dLFTMC HemeAutoSS MCV (RBC) [Entitic vol]81.5 hCChnnxx22.0 - 100.0 fLFTMC HemeAutoSSPlatelet mean volume (Bld) [Entitic vol]8.9 fLNormal6.4 - 10.8 [facility] HemeAutoSSPlatelets (Bld) [#/Vol]246.0 E9/SQvpunx092.0 - 500.0 E9/[facility] HemeAutoSSRBC (Bld) [#/Vol] 4.4 E12/LNormal4.3 - 5.9 E12/[facility] HemeAutoSSWBC corrected for nucl RBC Auto (Bld) [#/Vol]10.6 E9/LNormal4.0 - 11.0 E9/[facility] MgrmXfrjZATxnT7pct 01-22-2023 HbA1c (Bld) [Mass fraction]11.1 %High<=5.9Ch[facility]icothe HospitalComment on above:Performed By: #### 3497538, 5683203, 81071297, 825464784, 7393878, 4801197 #### [facility] [address], [place] [address]Dfdfpbkqnvxktkbwi Note - Case Manageron 01-22-2023 Interdisciplinary Note - Case ManagerCRM entered the room to discuss dc planning. Contact information provided and whiteboard updated. Pt is getting testing. Pending cardiology. ANt dc today. CRM to follow.Berger HospitalComment on above:Result Comment: Electronically Signed By: Cristin Shane.brenna\Date and Time Signed: 01/22/23 10:52 EDTLipid Panelon 01-22-2023 Cholesterol [Mass/Vol]205 mg/aUGbbu572-399KxgjegChillicothe HospitalComment on above:Performed By: #### 4137076, 0074888, 08996141, 325689404, 6975332, 0826296 #### [facility] [address] [place], [place] [address]Bhpvonddtsi in HDL [Mass/Vol]35 mg/dLInvalid Interpretation CodeChillicothe HospitalComment on above:Result Comment: HDL > or equal to 60 mg/dL: Low cardiovascular risk HDL < 40 mg/dL : High cardiovascular riskPerformed By: #### 7216928, 7492964, 24982180, 799876406, 1192588, 4591388 #### [facility] [address] [place], [place] [address]Cqnjoucwozd in LDL [Mass/Vol]115 mg/dLNormal<=129Ch[facility]icothe HospitalComment on above:Performed By: #### 7646754, 7104046, 35683560, 292867950, 9550421, 2732304 #### [facility] [address] [place], [place] [address]Mkuzbiyhvdi in VLDL [Mass/Vol]60 mg/dLHigh7-40Ch[facility]othe HospitalComment on above:Performed By: #### 3719625, 5713471, 14555771, 035107432, 1241156, 6812464 #### [facility] [address] [place], [place] [address]Ogxroytohdog [Mass/Vol]300 mg/dLHigh<=149Ch[facility]icothe HospitalComment on above:Performed By: #### 3141423, 1581637, 19110558, 705876965, 6358725, 6710327 #### [facility] [address] [place], [place] [address]Ydvrdfj Recordon 84-44-4746Emwnvcp Record [id number]#1.00CD:127NormAultman Orrville Hospitalitor [id number]#1.00CD:127Normal [facility] HospitalMonitor Record [id number]#1.00CD:127NormAultman Orrville Hospitalitor [id number]#1.00CD:127Normal [facility] HospitalPre-Certification Formon 38-18-5809Zdf-Certification [id number]#1.00CD:127NoTriHealth Good Samaritan HospitalProgress Note-Nurseon 07-48-9838Alfhhhoc Note-NurseReport given to JACINTO Burgos, who is taking over patient's care in room 328. Loretta made aware thatpatient currently down in CV Lab. Patient's belongings taken to room 328. Patient's family member also taken down to room 328.[facility] Note-NurseThis television script writer was notified by Dr. Obando at 1303 that patient will go for heart catheterization today. Per Dr. Obando, hold lovenox and make patient NPO. This television script writer will do at this time and notify patient of plan of care.[facility] Note-NurseThis television script writer entered the patient's room to place [...] her right arm would intermittently hurt. This television script writer asked patient if there was anything she could do to help the patient any further, but patient denied any further needs. This television script writer will notify Dr. Obando that patient has had previous right shoulder pain when moving boxes back in November.[facility] Note-NurseThis television script writer was notified by the person performing the echo that patient was having 10/10 right shoulder pain at 10:08. This television script writer entered the patient's room to personally assess the patient. Patientstated she was having 10/10 right shoulder pain, but denied having chest pain. Morphine was given at 10:10. Patient stated at 10:12 right shoulder pain was now 6/10, with no chest pain. This television script writer personally spoke with Dr. Obando on the phone, who stated to have an EKG performed after the Echo and that he would order a lidocaine patch. This television script writer notified both patient and Rema, with radiology that was in the patient's room.[facility] Note-NursePatient's step mother called, Chari, requesting updates. Chari not listed in contacts. This television script writer a sked patient if it was okay to give Chari updates. Patient stated, yes. This television script writer updated Penevetteon plan of care. Chari had no further questions at this time.[facility] HospitalProgress Note-Physicianon 01-22-2023 Progress Note-PhysicianAssessment/Plan 43-year-old female [...] morphine and oxygen. Cardiology consult pending. Ordered: [facility] Hospital Care/Day Moderate 35 Minutes [address]2657 2. Elevated troponin (R77.8: Other specified abnormalities of plasma proteins) Elevated troponin?secondary to NSTEMI. Cardiology consult pending. Continue on aspirin, Lipitor, Lovenox. Echocardiogram pending. Ordered: [facility] Hospital Care/Day Moderate 35 Minutes 34325 3. NSTEMI (non-ST elevation myocardial infarction) (I21.4: Non-ST elevation (NSTEMI) myocardial infarction) Acute NSTEMI?present on admission. Cardiology consult pending. Echocardiogram pending. Continue on aspirin, Lipitor, lisinopril, Lovenox. Ordered: [facility] Hospital Care/Day Moderate 35 Minutes 08307 4. Hypertensive urgency (I16.0: Hypertensive urgency) Resolved. Continue lisinopril. Ordered: [facility] Hospital Care/Day Moderate 35 Minutes 64258 5. Right shoulder pain (M25.511: Pain in right shoulder) Resolved. Ordered: [facility] Hospital Care/Day Moderate 35 Minutes 84253 6. Leukocytosis (D72.829: Elevated white blood cell [...] deep vein thrombosis (DVT) prophylaxis (Z79.899: Other decontamination worker (current) drug therapy) Lovenox. Disposition: Pending echocardiogram and cardiology consult. I discussed the diagnosis and plan of care with the patient at the bedside. Moderate level of MDM based on addressing above issues. This documentation was transcribed using voice recognition software. Several attempts were made to ensure accuracy. However inadvertent computerized gis professor errors may be present. Ellie Obando. Hospitalist. [...] 05:07:00) Lymph Auto: 24.9 % (01/22/23 05:07:00) [place] Auto: 4.6 % (01/22/23 05:07:00) Eos Auto: 0.2 % (01/22/23 05:07:00) Basophil Auto: 0.4 % (01/22/23 05:07:00) Neutro Absolute: 7.4 E9/L (01/22/23 05:07:00) Lymph Absolute: 2.6 E9/L (06 (more content not included)...NormalChillicothe HospitalComment on above:Result Comment: Electronically Signed By: GAGE HAIDER, Ellie\.br\Date and Time Signed: 01/22/23 09:41 EDTTroponin 6 Hr.on 83-71-4061Zwposgcc I.cardiac [Mass/Vol]467.70 pg/dLLwjkxegr93.10-27.10Chillicothe HospitalComment on above:Result Comment: Critical Result verified [...] conjunction with clinical conditions of myocardial infarction. ([employer] High Sensitivity Troponin I Instructions For Use, Order Mapper, March 2018)Performed By: #### [id number], 7623162, 25121436, [id number], 9323285, 5922634 #### [facility] [address], [place] [address]Uvbelmtp 9 Hr.on 36-37-3908Vomjmddr I.cardiac [Mass/Vol]445.10 pg/uNOxlxsivr18.10-27.10Chillicothe HospitalComment on above:Result Comment: Critical Result verified [...] conjunction with clinical conditions of myocardial infarction. ([employer] High Sensitivity Troponin I Instructions For Use, Order Mapper, March 2018)Performed By: #### [id number] #### [facility] [address], [place] [address]KO Chest Single Viewon 51-84-8934JX Chest Single ViewExam Date/Time: 01/21/2023 16:53 EDT [...] Kar in mGy = na DAP = naNormalChillicothe HospitaleGFRon 76-97-1420CKQ/1.73 sq M.predicted among non-blacks MDRD (S/P/Bld) [Vol rate/Area]113 mL/min/1.73 m2 Normal>=59Chillicothe HospitalComment on above:Order Comment: Order added by Lupe Expert.Result Comment: Chronic kidney disease could be indicated at eGFR's of less than 60 mL/min/1.73m2. Kidney failure is indicated at less than 15 mL/min/1.73m2.Performed By: #### 6048384, 5103078, 48912863, 268984693, 0507098, 7552556 #### [facility] [address] [place] [address]Qttn Diffon 30-01-4477Mabpanusq/100 WBC (Bld)0.3 %Normal0.0-2.0 Chillicothe HospitalComment on above:Order Comment: Order Added by Lupe Expert.Performed By: #### 9329049, 2265924, 35165001, 315128666, 8951397, 8920542 #### [facility] [address] [place] [address]Lzdlvypdp/Leukocytes Auto (Bld) [Pure # fraction]0.0 E9/LNormal 0.0-0.2FSycamore Medical CenterComment on above:Order Comment: Order Added by Lupe Expert.Performed By: #### 6679951, 0824078, 22148941, 480100204, 2764980, 6884643 #### [facility] [address], [place] [address]Eexqqfpxlxs/100 WBC (Bld)0.1 %Normal0.0-8.0Chillicothe HospitalComment on above:Order Comment: Order Added by Lupe Expert.Performed By: #### 8682331, 5133922, 18617662, 565411755, 8657965, 6787074 #### [facility] [address], [place] [address]Atjrkirpmae/Leukocytes Auto (Bld) [Pure # fraction]0.0 E9/L Normal0.0-0.5FSycamore Medical CenterComment on above:Order Comment: Order Added by Discern Expert.Performed By: #### 3194267, 5886898, 25912645, 836949898, 4186230, 6579820 #### [facility] [address] [place] [address]Repysiqdsve/100 WBC (Bld)8.6 %Low14.0-50.0Chillicothe HospitalComment on above:Order Comment: Order Added by Discern Expert.Performed By: #### 2138193, 0141763, 52281572, 048333141, 7847957, 2210622 #### [facility] [address] [place] [address]Hzelchmnofr/Leukocytes Auto (Bld) [Pure # fraction]1.2 E9/L Normal1.0-4.0Chillicothe HospitalComment on above:Order Comment: Order Added by Discern Expert.Performed By: #### 1882826, 3840434, 30576352, 802929333, 9571626, 3952958 #### [facility] [address] [place] [address]Cyudmuylo/100 WBC (Bld)4.8 %Normal4.0-14.0Chillicothe HospitalComment on above:Order Comment: Order Added by Discern Expert.Performed By: #### 2607927, 1560736, 81275592, 815904442, 3004355, 7777252 #### [facility] [address] [place] [address]Cijswevuf/Leukocytes Auto (Bld) [Pure # fraction]0.7 E9/LNormal 0.2-1.0Chillicothe HospitalComment on above:Order Comment: Order Added by Discern Expert.Performed By: #### 3812989, 5999986, 03615593, 004834675, 0626754, 8120681 #### [facility] [address], [place] [address]Wdmqowslook/100 WBC (Bld)86.2 %High36.0-75.0Chillicothe HospitalComment on above:Order Comment: Order Added by Discern Expert. Performed By: #### 5858426, 3995324, 49281905, 608017951, 1241530, 1016296 #### [facility] [address] [place] [address]Lgngrfwanec/Leukocytes Auto (Bld) [Pure # fraction]12.3 E9/L High2.0-7.5FSycamore Medical CenterComment on above:Order Comment: Order Added by Discern Expert.Performed By: #### 0848610, 2381817, 13138828, 373856723, 1003912, 8483465 #### [facility] [address] [place] [address] 22955MQDya 26-19-7435Kmpkq gap [Moles/Vol]14 mmol/LNormal6-16Chillicothe HospitalComment on above:Performed By: #### 2681950, 2479972, 21578567, 700864066, 0319231, 2693009 #### [facility] [address] [place] [address]Azgqphu [Mass/Vol]9.0 mg/dLNormal8.9-11.1FSycamore Medical CenterComment on above:Performed By: #### 9203075, 9681515, 12131016, 639096931, 3827050, 8946069 #### [facility] [address], [place] [address]Wgvgeovu [Moles/Vol]101 mmol/HEnfqap128-803QtcvftChillicothe HospitalComment on above:Performed By: #### 6160796, 7859271, 53576809, 635358513, 8402133, 3785316 #### [facility] [address] [place] [address] 805[address]EX9 [Moles/Vol]18 mmol/WFkf54-71UcrwzpChillicothe Hospital Comment on above:Performed By: #### 4475199, 4200351, 81652091, 213426272, 1992596, 2261505 #### [facility] [address], [place] [address]Yovpitjiie [Mass/Vol]0.7 mg/dLNormal0.5-1.3FSycamore Medical CenterComment on above:Performed By: #### 6529402, 7502427, 65657549, 187506366, 0357326, 9725085 #### [facility] [address], [place] [address]Vhdfccy [Mass/Vol]491 mg/mHNnbdnoer84-539RsnbvsChillicothe HospitalComment on above:Result Comment: Critical Result verified by repeat analysis\Critical Result S_GLULVL:[address] MARTIN AT by CIARA HOWARD And Read Back For Confirmation at: 01/21/2023 17:05:30 If this glucose result represents a fasting glucose, interpretation should refer to the following reference range: 55-99 mg/dLPerformed By: #### 1736908, 8608779, 34327512, 422857642, 8644733, 4210116 #### [facility] [address] [place], [place] [address]Kjswvlbvn [Moles/Vol]4.0 mmol/LNormal3.5-5.3FSycamore Medical CenterComment on above:Performed By: #### 9687970, 4919416, 51978154, 169846752, 2450090, 7285907 #### [facility] [address] [place], [place] [address]Xjsdep [Moles/Vol]129 mmol/QBjp568-651ExgserChillicothe HospitalComment on above:Performed By: #### 1138095, 2083503, 34068471, 612973616, 6502693, 4548300 #### [facility] [address], [place] [address]Vjyl nitrogen [Mass/Vol]23 mg/dLHigh5-21Ch[facility]icothe HospitalComment on above:Performed By: #### 9917625, 7356503, 26284326, 689300926, 7781808, 4063956 #### [facility] [address] [place], [place] [address]Yzmr nitrogen/Creatinine [Mass ratio]33 No WfquuUrnn97-54NmthxxChillicothe HospitalComment on above:Performed By: #### 2137794, 3914101, 80726583, 590268020, 0663519, 9551343 #### [facility] [address], [place] [address]YDMNtv 48-19-5045Wxte hydroxybutyrate [Moles/Vol]0.86 mmol/L High0.02-0.27Chillicothe HospitalComment on above:Performed By: #### 2552616, 1437568, 28038184, 512095439, 6638421, 2526221 #### [facility] [address] [place] [address]JON w/ Auto Diffon 09-56-1437Ipxqghcwkwq distribution width (RBC) [Ratio]14.2 %Gygfuy66.9-14.2FSycamore Medical CenterComment on above: Performed By: #### 1535639, 1628284, 86531486, 354580584, 6894419, 4598148 #### [facility] [address] [place] [address]Govaawiszt (Bld) [Volume fraction]41.9 %Kowwrx71.0-46.0[facility]icothe HospitalComment on above:Performed By: #### 2273655, 2473758, 75259862, 129675533, 9286747, 8522856 #### [facility] [address] [place], [place] [address]Bhfabenlws (Bld) [Mass/Vol]14.2 g/wZRqazmu28.0-16.0[facility] HospitalComment on above:Performed By: #### 1202455, 0879176, 16719632, 298955244, 2019963, 4532322 #### [facility] [address] [place], [place] [address]OZX (RBC) [Entitic mass]28.0 mvXqyyuj41.0-34.0[facility]othe HospitalComment on above:Performed By: #### 8245946, 9864110, 07865085, 609489658, 4593479, 9517853 #### [facility] [address] [place] [address]DISC (RBC) [Mass/Vol]33.9 g/vLVdvitt70.4-36.0[facility] HospitalComment on above:Performed By: #### 1040293, 8789496, 27747406, 452605167, 6440622, 5784517 #### [facility] [address] [place] [address] 368[address]BEA (RBC) [Entitic vol]82.6 pFWazsln18.0-100.0[facility] HospitalComment on above:Performed By: #### 6063204, 8178977, 24551127, 469426707, 4068752, 4927752 #### [facility] [address] [place] [address]Vtgbvxtx mean volume (Bld) [Entitic vol]8.8 fLNormal6.4-10.8 [facility] HospitalComment on above:Performed By: #### 9046056, 7180347, 77478727, 240115846, 4701899, 3185287 #### [facility] [address] [place], [place] [address]Gnaexqmrk (Bld) [#/Vol]240.0 E9/USfjrtg472.0-500.0Ch[facility]othe HospitalComment on above:Performed By: #### 5047698, 4738478, 24564620, 110989651, 5546421, 1784503 #### [facility] [address] [place] [address]JJG (Bld) [#/Vol]5.1 E12/LNormal4.3-5.9Ch[facility]othe HospitalComment on above:Performed By: #### 7653868, 6055697, 44439551, 252796051, 3534343, 4236283 #### [facility] [address] [place], [place] [address]DXN corrected for nucl RBC Auto (Bld) [#/Vol]14.2 E9/LHigh 4.0-11.0[facility] HospitalComment on above:Performed By: #### 4565990, 7176813, 70983612, 756436114, 9322672, 8550819 #### [facility] [address] [place], [place] [address]QIQPNZJXEVinqobn By: SYSTEM SYSTEM on 70-84-4127Umsvmden I.cardiac [Mass/Vol]467.70 pg/mLInvalid Interpretation Code10.10 - 27.10 pg/mL [facility] RemisolComment on above:Result Comment: Critical Result verified by previous result\ Critical Result I_hsTnI:467.7 Called to ROSSY MOE at 3N by VERONIQUE REID and read back for confirmation at 01/21/2023 23:51:39Anion gap [Moles/Vol]14 mmol/LNormal6 - 16 mEq/LFTMC RemisolBeta hydroxybutyrate [Moles/Vol]0.86 mmol/LHigh0.02 - 0.27 mmol/LFTMC RemisolCalcium [Mass/Vol]9.0 mg/dLNormal8.9 - 11.1 mg/dLFTMC RemisolChloride [Moles/Vol]101 mmol/IVmxrtl555 - 111 mmol/LFTMC RemisolCO2 [Moles/Vol]18 mmol/LLow21 - 31 mmol/LFTMC Remisol Creatinine [Mass/Vol]0.7 mg/dLNormal0.5 - 1.3 mg/dLFT RemisolGFR/1.73 sq M.predicted among non-blacks MDRD (S/P/Bld) [Vol rate/Area]109 mL/min/1.73 m2 Normal>=59mL/min/1.73 m2[facility] Chem SGlucose [Mass/Vol]491 mg/dLInvalid Interpretation Code55 - 199 mg/dLINTEGRIS [facility] [place] RemisolComment on above:Result Comment: Critical Result verified by repeat analysis\Critical Result S_GLULVL:[address] MARTIN AT ER by CIARA HOWARD And Read Back For Confirmation at: 01/21/2023 17:05:30Potassium [Moles/Vol]4.0 mmol/LNormal3.5 - 5.3 mmol/LFTMC RemisolSodium [Moles/Vol]129 mmol/UJrn383 - 145 mmol/LFTMC RemisolUrea nitrogen [Mass/Vol]23 mg/dLHigh5 - 21 mg/dLINTEGRIS [facility] [place] RemisolUrea nitrogen/Creatinine [Mass ratio]33 mg/akVmle66 - 20IN[facility] RemisolConsent for Treatmenton 92-42-2721Xdrxdqj for [id number]#1.00CD:127NormalK[facility]tering [facility] Clinical Summaryon 42-25-9870TR Clinical Summary [place] [address] ED Clinical Summary Person Information Name: ESCOBAR ORTEGA Lashae/[facility] Age: 43 Years : 1980 Sex: Female Language: Colombian PCP: Gentry Carrillo MD Marital Status: Phone: [phone] Visit Id: Visit Reason: Chest pain; CHEST PAIN Speciality: Acuity: 3 Enc Type: Observation Med Service: Medical Arrival: 01/21/2023 16:19:22 Discharge: LOS: 000 03:20 Checkin: 01/21/2023 16:19:22 Checkout: 01/21/2023 19:39:40 Dispo Type: Admitted as IP to this [facility] EVENTS: Event Name Event Status Request [...] 19:12:01 Meds Admin Request 01/21/2023 19:13:12 ADDRESS: [address] [place] [address] [phone] PHYS DOC NOTES: MEDICAL INFORMATION: Prescriptions Given: Medications to Continue with No Changes Other Medications acetaminophen-hydrocodone (Vicodin 500mg-5mg Tab) 1 Tablets By Mouth every 4 hours as needed for pain. Refills: 0. PATIENT EDUCATION INFORMATION: Instructions: Follow up: With: Address: When: Gentry Carrillo [address] [facility], [address] [place] [id number] Business (1) In 3 days DIAGNOSIS: 1:Chest pain; 2:Elevated troponin; 3:Hypertensive urgency; 4:Right shoulder pain; 5:Leukocytosis; 6:Hyperglycemia; 7:Hyponatremia; 8:Metabolic acidosis; 9:HTN (hypertension); 10:Diabetes mellitus; 11:Obese; 12:On deep vein thrombosis (DVT) prophylaxisNoMercy Health West Hospital CenterED Note-Physicianon 01-21-2023 ED Note-PhysicianBasic Information Time Seen: Daisy Campos M.D. 01/21/2023 16:49 Chief Complaint pt states just seen for arm pain, given rx steroid. 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 The patient [...] and Complexity of Problems Differential Diagnosis: [] [facility] Data External documents reviewed: [] My [...] (I10: Essential (primary) hypert (more content not included)...Berger HospitalComment on above:Result Comment: Electronically Signed By: Andres Mejia, Daisy Blair\.brenna\Date and Time Signed: 01/21/2319:01 EDTED Patient Education Noteon 73-73-7068PF Patient Education Note [facility] CenterED Patient Summaryon 59-86-8141WA Patient Summary [address] [address] Patient Discharge Instructions Person Information Name: ESCOBAR ORTEGA Age: 43 Years Arrival Date: 01/21/2023 16:19:22 Discharge Diagnosis: 1:Chest pain; 2:Elevated troponin; 3:Hypertensive urgency; 4:Right shoulder pain; 5:Leukocytosis; 6:Hyperglycemia; 7:Hyponatremia; 8:Metabolic acidosis; 9:HTN (hypertension); 10:Diabetes mellitus; 11:Obese; 12:On deep vein thrombosis (DVT) prophylaxis Primary Care Physician: Gentry Carrillo MD Provider Information Primary Provider: Daisy Campos M.D. Advanced Stockroom Attendant:None The exam and treatment you received in the Emergency Department were for an urgent problem and are not intended as complete care. It is important that you follow up with a doctor, nurse practitioner,or physician?s pediatric dental assistant for ongoing care. If your symptoms [...] Instructions: With: Address: When: Gentry Carrillo [address] [place] [address], [place] [address] Business (1) In 3 days In the event that this physician does not participate in your insurance network, please consult with your insurance company to find a nearby participating provider. Patient Education Materials: A MESSAGE TO ALL PATIENTS REGARDING OPIOIDS PRESCRIPTION OPIOIDS: WHAT YOU NEED TO KNOW Prescription opioids can be used to help relieve xfhrtprm-pv-ylklxg pain and are often prescribed following a [...] your community drug take- back program or yourOdin Medical TechnologiesrmHullabalu mail-back program, or flush them down the toilet, following guidance from the Food and Drug Administration (www.fda.gov/Drugs/ResourcesForYou). ? Visit www.cdc.gov/drugoverdose to learn about the risks of opioids abuse and overdo (more contentnot included)...Berger HospitalHEMATOLOGY Ordered By: SYSTEM SYSTEM on 96-58-1890Zgypdleoy/100 WBC (Bld)0.3 %Normal0.0 - 2.0 %[facility] HemeAutoSSBasophils/Leukocytes [...] 7.5 E9/LFTMC HemeAutoSSHEMATOLOGYOrdered By: Christiano Clay on 82-63-2875Rsokpevbtec distribution width (RBC) [Ratio]14.2 %Rwffii88.9 - 14.2 % [facility] HemeAutoSSHematocrit (Bld) [Volume fraction]41.9 %Suopxk92.0 - 46.0 %[facility] HemeAutoSSHemoglobin (Bld) [Mass/Vol]14.2 g/gALwrmmy34.0 - 16.0 gm/dLFTMC HemeAutoSSMCH (RBC) [Entitic mass]28.0 xyEeojia85.0 - 34.0 pgFC HemeAutoSSMCHC (RBC) [Mass/Vol]33.9 g/yCFdukla97.4 - 36.0 gm/dLFTMC HemeAutoSSMCV (RBC) [Entitic vol]82.6 fUXuianm44.0 - 100.0 fLFT HemeAutoSSPlatelet mean volume (Bld) [Entitic vol]8.8 fLNormal6.4 - 10.8 fLINTEGRIS [facility] [place] [facility] HemeAutoSSPlatelets (Bld) [#/Vol]240.0 E9/WUglrcz996.0 - 500.0 E9/[facility]FMER[facility] [place] HemeAutoSSRBC (Bld) [#/Vol]5.1 E12/LNormal4.3 - 5.9 E12/[facility] HemeAutoSSWBC corrected for nucl RBC Auto (Bld) [#/Vol]14.2 E9/LHigh4.0 - 11.0 /[facility] HemeAutoSSMonitor Recordon 01-21-2023 Monitor [id number]#1.00CD:127NoTriHealth Good Samaritan HospitalMonitor Record [id number]#1.00CD:127Berger HospitalTroponin 0 Hr.on 10-57-4932Kecudjqh I.cardiac [Mass/Vol]201.10 pg/mL Srohrqnl15.10-27.10Ch[facility]icothe HospitalComment on above:Result Comment: Critical Result I_hsTnI:201.1 [...] Use, Son Ruben, March 2018)Performed By: #### 8789274, 4753838, 35684481, 347749476, 0509254, 0149130 #### [facility] [address] [place], [place] [address]Ynmgdjyc 3 Hr.on 23-67-6654Bziyskyv I.cardiac [Mass/Vol]258.00 pg/mNMkdsyikg03.10-27.10Ch[facility] HospitalComment on above:Order Comment: pt not yet in room from er as of 1924 [id number] 01/21/2023 19:37:18 EDT Result Comment: Critical Result [...] Use, Son Ruben, March 2018)Performed By: #### [id number] #### [facility] [address] [place], [place] [address]ZT With Cult Reflexon 90-06-9717Ekbdrbzqu Ql (U)NegativeNormal NegativeChillicothe HospitalComment on above:Performed By: #### 38839654 ####[place] [address] [place] [address] Clarity (U)CLEARNormalClearChillicothe HospitalComment on above:Performed By: #### 27975982 ####[facility] [address] [place], [place] [address]Hwjco (U)STRAWAbnormalYellowChillicothe Hospital Comment on above:Performed By: #### 34310579 ####[place] [address] [place], [place] [address]Zxesafeggc cells.squamous LM.HPF (Urine sed) [#/Area]8-6Xvpqeb0-6Eqlbyp [facility] CenterComment on above: Performed By: #### [id number] ####[address] [address]Cjglxux Test strip (U) [Mass/Vol]3+AbnormalNegative [facility] HospitalComment on above:Performed By: #### [id number] ####[address] [address] Hemoglobin Ql (U)NegativeNormalNegativeChillicothe HospitalComment on above:Performed By: #### 38239940 ####[address] [address]Bymvyrb (U) [Mass/Vol]1+AbnormalNegativeChillicothe HospitalComment on above:Performed By: #### 49230457 ####[address] [address] Lucas.plasma/Lucas.RBC (Bld) [Mass ratio]9-6Gfvgtd5-2LrbkcoSycamore Medical CenterComment on above:Performed By: #### 88392732 ####[address] [address]Atdoeob Ql (U)NegativeNormal NegativeChillicothe HospitalComment on above:Performed By: #### 63320999 ####[address] [address]gV (U)6.0 [pH]Invalid Interpretation Code5.0-9.0Ch[facility]icothe HospitalComment on above:Performed By: #### 54422423 ####[address] [address]Nseedow (U) [Mass/Vol]NegativeNormal NegativeChillicothe HospitalComment on above:Performed By: #### 73349283 ####[address] [address] Specific gravity (U) [Rel density]1.015Invalid Interpretation Code1.005-1.030 [facility] HospitalComment on above:Performed By: #### 79026509 ####[address], [place] [address]Xvjc of Urine collection methodClean CatchNormalChillicothe HospitalComment on above:Performed By: #### 20186287 ####[place] [address] [address]Lzxcltjpmbyr Qn (U)0.2 {Ankit'U}/dLNormal0.0-1.0 [facility] HospitalComment on above:Performed By: #### 75545594 ####[place] [address] [address]RIO Auto Ql (U)NegativeNormalNegativeChillicothe HospitalComment on above: Performed By: #### 02589404 ####[place] [address] [address]EXO LM.HPF (Urine sed) [#/Area]8-1Dcykuz2-3Chibrv [facility] CenterComment on above:Performed By: #### [id number] ####[place] [address] [address]SFRPGWROLK Ordered By: Anabella Tiwari on 67-43-1304Oqzfytyky Ql (U)Negative (01/21/23 5:53 PM)NormalNegativeINTEGR[facility] [place] UA Auto SSClarity (U)Clear (01/21/23 5:53 PM)NormalClearFMERCY [facility]OS[facility] UA Auto SSColor (U)Straw *ABN* (01/21/23 5:53 PM)Invalid Interpretation CodeYellowINTEGRIS SOUTHWEST [facility] [place] UA Auto SSEpithelial cells.squamous LM.HPF (Urine sed) [#/Area]0-2 /HPFNormal0-2/HPFINTEGRIS SOUTHWEST [facility] [place] UA Auto SS Glucose Test strip (U) [Mass/Vol]3+ *ABN* (01/21/23 5:53 PM)Invalid Interpretation CodeNegativeINTEGRIS SOUTHWEST [facility] [place] UA Auto SSHemoglobin Ql (U)Negative (01/21/23 5:53 PM)NormalNegativeINTEGRIS SOUTHWEST [facility] [place] UA Auto SSKetones (U) [Mass/Vol]1+ *ABN* (01/21/23 5:53 PM)Invalid Interpretation CodeNegativeINTEGRIS SOUTHWEST [facility] [place] UA Auto SS Lucas.plasma/Lucas.RBC (Bld) [Mass ratio]0-3 /HPFNormal0-3/HPFINTEGRIS SOUTHWEST [facility] [place] UA Auto SSNitrite Ql (U)Negative (01/21/23 5:53 PM)NormalNegativeINTEGRIS SOUTHWEST [facility] [place] UA Auto SSpH (U)6.0 *NA* (01/21/23 5:53 PM)Invalid Interpretation Code5.0 - 9.0[facility] [place] UA Auto SSProtein (U) [Mass/Vol]Negative (01/21/23 5:53 PM)NormalNegativeINTEGRIS [facility]OUTHWEST [facility] [place] UA Auto SSSpecific gravity (U) [Rel density] 1.015 *NA* (01/21/23 5:53 PM)Invalid Interpretation Code1.005 - 1.030[facility] [place] UA Auto SSUA Spec DescClean Catch (01/21/23 5:53 PM)NormalINTEGRIS SOUTHWEST [facility] [place] UA Auto SSUrobilinogen Qn (U)0.2294432 {Ankit'U}/dLNormal0.0 - 1.0 EU/dLINTEGRIS SOUTHWEST [facility] [place] UA Auto SSWBC Auto Ql (U)Negative (01/21/23 5:53 PM)NormalNegativeINTEGRIS [facility]OUTHWEST [facility] [place] UA Auto SSWBC LM.HPF (Urine sed) [#/Area]0-5 /HPFNormal0-5/HPFINTEGRIS SOUTHWEST [facility] [place] UA Auto SSeGFRon 45-51-1724EWA/1.73 sq M.predicted among non-blacks MDRD (S/P/Bld) [Vol rate/Area]109 mL/min/1.73 n4Tbdzwv>=59Chillicothe HospitalComment on above:Order Comment: Order Added by Discern Expert.Result Comment: Chronic kidney disease could be indicated at eGFR's of less than 60 mL/min/1.73m2. Kidney failure is indicated at less than 15 mL/min/1.73m2.Performed By: #### 2978560, 1447716, 77733967, 574771251, 4314419, 8458722 #### [place] [facility] [address] [place], [place] [address]Lursllp for Treatmenton 56-74-4292Icxmedh for Treatment [id number]#1.00CD:127Berger HospitalDischarge Instructionson 01-60-3407Qrhehmeus Instructions [id number]#1.00CD:127[facility] Clinical Summaryon [id number] Clinical Summary [place] [id number] ED Clinical Summary Person Information Name: ESCOBAR ORTEGA Lashae/[facility] Age: 42 Years : 1980 Sex: Female Language: Colombian PCP: Gentry Carrillo MD Marital Status: Phone: [phone] Visit Id: Visit Reason: Foot pain-swelling; RIGHT [...] 12/12/2022 08:15:04 12/12/2022 08:15:04 12/12/2022 08:15:04 ADDRESS: [facility] [phone] [facility] DOC NOTES: MEDICAL INFORMATION: Prescriptions Given: Medications to Continue with No Changes Other Medications acetaminophen-hydrocodone (Vicodin 500mg-5mg Tab) 1 Tablets By Mouth every 4 hours as needed for pain. Refills: 0. PATIENT EDUCATION INFORMATION: Instructions: Foot Contusion Follow up: With: Address: When: Nelson [place] - [facility], [facility], [facility] [address], [place] [address] 0 Business (1) In 3 days 12/15/2022 Comments: Call the office of the environmental education specialist on Wednesday and arrange for evaluation of the toe. With: Address: When: Gentry Lorena [address] [facility], [place] [address] Business (1) In 3 days [...] discharge from the toe. DIAGNOSIS: Toe contusionNormalFisher Pipestone Medical CenterED Note-Physicianon [id number] Note-PhysicianBasic Information Time Seen: Pako Metzger DO [...] In 3 days 12/15/2022 EDT [facility] - [facility] [address] [facility] [place] [address] 9 Business (1) Additional Instructions: Call the office of the environmental education specialist on Wednesday and arrange for evaluation of the toe. Gentry Hoy In 3 days 12/15/2022 EDT [address] [facility] [place] [address]- Business (1) Additional Instructions: Call the office [...] Inpatient No active inp (more content not included)...[facility] Comment on above:Result Comment: Electronically Signed By: Pako Metzger DO\.br\Date and Time Signed: 12/12/22 08:25 EDTED Patient Education Noteon [id number] Patient Education NoteOrthopedics Foot Contusion A foot [...] may be recommended to support your foot. Ytvt-yru-dujcdbk anti-inflammatory medicines may also be recommended for [...] or lying down. General instructions ? Take tsft-jqu-dkolbgs and prescription medicines only as told by [...] Reviewed: 10/22/2021 Elsevier Patient Education ? 2022 OpDemand.[facility] ED Patient Summaryon [id number] Patient Summary [address] [address] Patient Discharge Instructions Person Information Name: ESCOBAR ORTEGA Age: 42 Years Arrival Date: 12/12/2022 07:19:23 Discharge Diagnosis: Toe contusion Primary Care Physician: Gentry Carrillo MD Provider Information Primary Provider: Pako Metzger DO Advanced Stockroom Attendant:None The exam and treatment you received in the Emergency Department were for an urgent problem and are not intended as complete care. It is important that you follow up with a doctor, nurse practitioner,or physician?s pediatric dental assistant for ongoing care. If your symptoms [...] Instructions: With: Address: When: [place] - [facility], [facility], [address], [place] [address] 0 Business (1) In 3 days 12/15/2022 Comments: Call the office of the environmental education specialist on Wednesday and arrange for evaluation of the toe. With: Address: When: Gentry Carrillo [address] [facility], [place] [address] Business (1) In 3 days [...] opioids can be used to help relieve kvhuvfpd-ht-wnnplt pain and are often prescribed following a [...] therapy, a psychological, goal-directed (more content not included)...[facility] Min 2 Views Righton [id number] Toe(s) Min 2 Views RightExam Date/Time: 12/12/2022 [...] Kar in mGy = na DAP = naNorCherrington HospitalPAP ACOG PANEL 2: 30 to 65on 06-22-2022 ..[facility] Rutan HospitalComment on above:Result Comment: Performed at: WB Performed By: #### BASIA MCCANN, CMP #### [facility] [address] [address] [address] Neisha Morfin Gdln ACOG Nijatfo80-98BdvkptDjwMary Rutan HospitalComment on above:Performed By: #### BASIA MCCANN, CMP #### [facility] [address] [place] [address] Dr. Neisha AraizaDIAGNOSIS:CommentNoSycamore Medical Center on above: Result Comment: NEGATIVE FOR INTRAEPITHELIAL LESION OR MALIGNANCY. Performed at: WBPerformed By: #### LIPA, BASIA, CMP #### [facility] [address] [place] [address] Dr. Neisha AraizaHPV AptimaNegativeNormalNegativeThe [facility] on above:Result Comment: This nucleic acid amplification test detects fourteen high-risk HPV types (16,18,31,33,35,39,45,51,52,56,58,59,66,68) without differentiation. Performed at: =GPerformed By: #### LIPA, BASIA, CMP #### [facility] [address] [place] [address] Dr. Neisha AraizaHPV Genotype ReflexCommentNoSycamore Medical Center on above:Result Comment: Criteria not met, HPV Genotype not performed. Performed at: WBPerformed By: #### LIPA, BASIA, CMP #### [facility] [address] [place] [address] Dr. Neisha AraizaMethodology:CommentNoSycamore Medical Center on above: Result Comment: This liquid based ThinPrep(R) pap test was screened with the use of an image guided system. Performed at: WBPerformed By: #### LIPA, BASIA, CMP #### [facility] [address] [place] [address] Dr. Neisha AraizaNote:CommentNoSycamore Medical Center on above:Result Comment: The Pap smear is a screening test designed to aid in the detection of premalignant and malignant conditions of the uterine cervix. It is not a diagnostic procedure and should not be used as the sole means of detecting cervical cancer. Both false-positive and false-negative reports do occur. . Performed at: WBPerformed By: #### LIPA, BASIA, CMP #### [facility] [address] [place] [address] Dr. Neisha AraizaPerformed by:CommentNormalThe Clinton HospitalComment on above: Result Comment: Tisha Sanders, Cable Tool Operator (ASCP) Performed at: WBPerformed By: #### BASIA MCCANN, CMP #### [facility] [address] [place] [address] Dr. Neisha Medina adequacy:CommentNoMemorial Health System Marietta Memorial HospitalComment on above:Result Comment: Satisfactory for evaluation. Endocervical and/or squamous metaplastic cells (endocervical component) are present. Performed at: WBPerformed By: #### BASIA MCCANN, CMP #### [facility] [address] [address] [address] Neisha De La Torre-19 PCR (CVDTB)on [id number]-CoV-2 (COVID-19) RNA TIM+probe Ql (Unsp spec)Not detectedNormalNOT DETECTEDCleveland Clinic [facility]ron General Comment on above:Result Comment: This test is not yet approved or cleared by the [place] FDA. When there are no FDA-approved or cleared tests available, and other criteria are met, FDA can make tests available under an emergency access mechanism called an Emergency Use Authorization (EUA). The EUA for this test is supported by the Global Climate Change Analyst of Health and Human Service's (HHS's) [...] consistent with SARS-CoV-2.Performed By: #### CBC #### [facility] [address] [place], [place] [id number] Dr. Neisha De La Torre-19 PCR (CVDTBH)on 13-61-3052TXWS-CoV-2 (COVID-19) RNA TIM+probe Ql (Unsp spec)Not detectedNormalNOT DETECTEDThe [facility] Comment on above:Result Comment: This test is not yet approved or cleared by the [place] FDA. When there are no FDA-approved or cleared tests available, and other criteria are met, FDA can make tests available under an emergency access mechanism called an Emergency Use Authorization (EUA). The EUA for this test is supported by the [place] of Health and Human Service's (HHS's) declaration [...] consistent with SARS-CoV-2.Performed By: #### CBC #### [facility] [address] [place] [address] Dr. Neisha AraizaCHLAMYDIA/GONOCOCCUS TIM (SWAB/URINE/PAPon 61-26-1833Doxvhzeta trachomatis, NAANegativeNormalNegativeCleveland Clinic Akron GeneralComment on above: Performed By: #### CBC #### [facility] [address] [place] [address] Dr. Neisha AraizaNeisseria gonorrhoeae, NAANegativeNormalNegativeCleveland Clinic Akron GeneralComment on above:Performed By: #### CBC #### [facility] [address] [place] [address] Dr. Neisha AraizaVAGINITIS/VAGINOSIS DNA PROBEon 38-05-1935Nkspwbc speciesPositive AbnormalNegativeCleveland Clinic Akron GeneralComment on above:Performed By: #### BASIA MCCANN CMP #### [facility] [address] [place] [address] Dr. Neisha Sanchezdnerella vaginalisPositiveAbnormalNegativeCleveland Clinic Akron GeneralComment on above:Performed By: #### BASIA MCCANN CMP #### [facility] [address] [place] [address] Dr. Neisha Whitakerhomonas vaginalisNegativeNormalNegativeCleveland Clinic [facility] Comment on above:Performed By: #### BASIA MCCANN, CMP #### [facility] [address] [place] [address] Dr. Neisha AraizaAMYLASEon 51-05-0140Hpwkeia [Catalytic activity/Vol]20 U/L Critically gjt38-336Avc [facility] HospitalComment on above:Performed By: #### CBC #### [facility] [address] [place] [address] Dr. Neisha CardenasC AUTO DIFFon 27-75-3592IJFJ #0.0 103/ulNormal0.0-0.1The [facility] HospitalComment on above:Performed By: #### CBC #### [facility] [address] [place] [address] Dr. Neisha AraizaBasophils/100 WBC (Bld)0.6 %Normal0.2-2.0[facility] Comment on above:Performed By: #### CBC #### [facility] [address] [address] [address] Neisha Mcconnell #0.1 103/ulNormal0.0-0.7The [facility] HospitalComment on above: Performed By: #### CBC #### [facility] [address] [place] [address] Dr. Neisha Paigeosinophils/100 WBC (Bld)0.7 %Critically low0.9-7.0The [facility] HospitalComment on above:Performed By: #### CBC #### [facility] [address] [place] [address] Dr. Neisha Paigerythrocyte distribution width (RBC) [Ratio]13.5 %Dfwpco59.0-15.0 [facility] GeneralComascension [facility] on above:Performed By: #### CBC #### [facility] [address] [place] [address] Dr. Neisha AraizaHematocrit (Bld) [Volume fraction]35.3 %Critically low36.0-48.0 The [facility] HospitalComment on above:Performed By: #### CBC #### [facility] [address] [place] [address] Dr. Neisha AraizaHemoglobin (Bld) [Mass/Vol]11.8 g/dLCritically low12.0-16.0The [facility] HospitalComment on above:Performed By: #### CBC #### [facility] [address] [place] [address] Dr. Neisha Gould #0.02 10e3/ulNormal0.00-0.03The [facility] HospitalComment on above:Performed By: #### CBC #### [facility] [address] [place] [address] Dr. Neisha Gould %0.3 %Normal0.0-0.5The [facility] HospitalComment on above: Performed By: #### CBC #### [facility] [address] [place] [address] Dr. Neisha Sánchez #2.3 103/ulNormal1.2-3.8The [facility] HospitalComment on above:Performed By: #### CBC #### [facility] [address] [place] [address] Dr. Neisha Davishocytes/100 WBC (Bld)33.2 %Ihvijb75.5-60.0The [facility] HospitalComment on above:Performed By: #### CBC #### [facility] [address] [place] [address] Dr. Neisha MelgarUAL DIFF REQNONormalThe [facility] HospitalComment on above: Performed By: #### CBC #### [facility] [address] [place] [address] Dr. Neisha Campa (RBC) [Entitic mass]29.1 trMyregp46.7-34.0The [facility] HospitalComment on above:Performed By: #### CBC #### [facility] [address] [place] [address] Dr. Neisha Campa (RBC) [Mass/Vol]33.4 g/bRUcoijp32.9-35.2The [facility] HospitalComment on above:Performed By: #### CBC #### [facility] [address] [address] [address] Neisha CampaV (RBC) [Entitic vol]86.9 sMZqvymx51.0-99.0The [facility] HospitalComment on above:Performed By: #### CBC #### [facility] [address] [address] [address] Neisha Evans #0.6 103/ulNormal0.3-0.8The Clinton HospitalComment on above:Performed By: #### CBC #### [facility] [address] [address] [address] Neisha Plasenciaocytes/100 WBC (Bld)8.6 %Normal1.7-12.0The [facility] on above:Performed By: #### CBC #### [facility] [address] [place] [address] Dr. Neisha Santos #3.9 103/ulNormal1.4-6.5The [facility] HospitalComment on above:Performed By: #### CBC #### [facility] [address] [place] [address] Dr. Neisha Samuelutrophils/100 WBC (Bld)56.6 %Lngctk93.0-75.0The [facility] HospitalComment on above:Performed By: #### CBC #### [facility] [address] [place] [address] Dr. Neisha Meilet mean volume (Bld) [Entitic vol]9.5 fLNormal9.5-13.5The [facility] HospitalComment on above:Performed By: #### CBC #### [facility] [address] [place] [address] Dr. Neisha AraizaPLT200 103/diWmlpxq260-817Xkx [facility] HospitalComment on above: Performed By: #### CBC #### [facility] [address] [place] [address] Dr. Neisha AraizaRBC4.06 106/ulCritically low4.20-5.40The [facility] HospitalComment on above:Performed By: #### CBC #### [facility] [address] [place] [address] Dr. Neisha AraizaWBC7.0 103/ulNormal4.0-11.0The [facility] HospitalComment on above: Performed By: #### CBC #### [facility] [address] [place] [address] Dr. Neisha AraizaLIPASEon 65-46-2793Bmwzjc [Catalytic activity/Vol]133.0 U/LNormal 73.0-393.0The [facility] HospitalComment on above:Performed By: #### CBC #### [facility] [address] [place] [address] Dr. Neisha AraizaPIEDMONT [facility] GLUCOSEon 49-90-3606Cimjnro [Mass/Vol]240 mg/dL Critically wkaw09-173Ezs [facility] on above:Performed By: #### POCGLUC #### [facility] [address] [place] [address] Dr. Neisha AraizaGlucose [Mass/Vol]240 mg/dLCritically zhfi61-599Qqv [facility] HospitalComment on above:Performed By: #### BASIA MCCANN, CMP #### [facility] [address] [place] [address] Dr. Neisha AraizaPROHilda 14(COMP METB)on 48-45-2438Hwtgmbl [Mass/Vol]2.3 g/dL Critically low3.4-5.0The [facility] Hospitalment on above:Performed By: #### CBC #### [facility] [address] [place] [address] Dr. Neisha AraizaAlbumin/Globulin [Mass ratio]0.8 {ratio}NormalThe [facility] on above:Performed By: #### CBC #### [facility] [address] [place] [address] Dr. Neisha AraizaALP [Catalytic activity/Vol]78 U/NTwlpdt46-592Zha [facility] Hospitalment on above:Performed By: #### CBC #### [facility] [address] [place] [address] Dr. Neisha FletcherT [Catalytic activity/Vol]21 U/LFqmqqk42-75Iez [facility] HospitalComment on above:Performed By: #### CBC #### [facility] [address] [place] [address] Dr. Neisha Contion gap [Moles/Vol]15.2 mmol/LNormalThe [facility] Comment on above:Performed By: #### CBC #### [facility] [address] [address] [address] Neisha AraizaAST [Catalytic activity/Vol]20 U/SInvbod07-16Ksg [facility] HospitalComment on above:Performed By: #### CBC #### [facility] [address] [place] [address] Dr. Neisha AraizaBilirubin [Mass/Vol]0.8 mg/dLNormal0.2-1.0The [facility] Comment on above:Performed By: #### CBC #### [facility] [address] [place] [address] Dr. Neisha AraizaCalcium [Mass/Vol]7.5 mg/dLCritically low8.5-10.1The [facility] HospitalComment on above:Performed By: #### CBC #### [facility] [address] [place] [address] Dr. Neisha AraizaChloride [Moles/Vol]105 mmol/ENgreqx66-182Yeo [facility] Comment on above:Performed By: #### CBC #### [facility] [address] [place] [address] Dr. Neisha AraizaCO2 [Moles/Vol]19.2 mmol/LCritically low21.0-32.0The [facility] HospitalComment on above:Performed By: #### CBC #### [facility] [address] [place] [address] Dr. Neisha AraizaCreatinine [Mass/Vol]0.59 mg/dLNormal0.55-1.02The [facility] HospitalComment on above:Performed By: #### CBC #### [facility] [address] [place] [address] Dr. Yilan ChangEGFR-AF CONGOLESE>60Normal>=60The [facility] HospitalComment on above:Performed By: #### CBC #### [facility] [address] [place] [address] Dr. Neisha PaigeGFR-NON AF CONGOLESE>60Normal>=60The [facility] HospitalComment on above:Performed By: #### CBC #### [facility] [address] [address] [address] Neisha AraizaGlobulin (S) [Mass/Vol]2.9 g/dLNormalThe [facility] HospitalComment on above:Performed By: #### CBC #### [facility] [address] [place] [address] Dr. Neisha AraizaGlucose [Mass/Vol]240 mg/dLCritically pecj00-203Wfy [facility] HospitalComment on above:Performed By: #### CBC #### [facility] [address] [place] [address] Dr. Neisha AraizaPotassium [Moles/Vol]3.4 mmol/LCritically low3.5-5.1The [facility] HospitalComment on above:Performed By: #### CBC #### [facility] [address] [place] [address] Dr. Neisha AraizaProtein [Mass/Vol]5.2 g/dLCritically low6.4-8.2The [facility] HospitalComment on above:Performed By: #### CBC #### [facility] [address] [place] [address] Dr. Neisha AraizaSodium [Moles/Vol]136 mmol/RBnupbn777-534Gaj [facility] Comment on above:Performed By: #### CBC #### [facility] [address] [address] [address] Neisha AraizaUrea nitrogen [Mass/Vol]9.0 mg/dLNormal7.0-18.0The [facility] HospitalComment on above:Performed By: #### CBC #### [facility] [address] [place] [address] Dr. Neisha AraizaUrea nitrogen/Creatinine [Mass ratio]15.3 mg/mgMary Rutan HospitalComment on above:Performed By: #### CBC #### [facility] [address] [address] [address] Neisha Jaimes [facility] on above:Performed By: #### CBC #### [facility] [address] [address] [address] Neisha Whitaker TESTPositiveMary Rutan HospitalComascension [facility] on above: Performed By: #### CBC #### [facility] [address] [address] [address] Neisha Covarrubias excess Calc (Bld) [Moles/Vol]-10.12507 mmol/LCritically low -2.0-2.0The [facility] HospitalComascension [facility] on above:Performed By: #### CBC #### [facility] [address] [place] [address] Dr. Neisha Bell [facility] HospitalCom[facility] on above: Performed By: #### CBC #### [facility] [address] [place] [address] Dr. Neisha AraizaCO2 [Moles/Vol]29.0 mmol/LCritically high23.0-28.0The [facility] on above:Performed By: #### CBC #### [facility] [address] [place] [address] Dr. Neisha AlbertAPOhioHealth Arthur [facility] on above:Performed By: #### CBC #### [facility] [address] [place] [address] Dr. Neisha MosqueraAtgjvBLY6YdogxhBmiMary Rutan HospitalComascension [facility] on above:Performed By: #### CBC #### [facility] [address] [place] [address] Dr. Neisha AraizaHCO3 (Bld) [Moles/Vol]17.9 mmol/LCritically low22.0-26.0The [facility] HospitalComasc[facility] on above:Performed By: #### CBC #### [facility] [address] [address] [address] Neisha RahmanMNormalThe [facility] HospitalComment on above:Performed By: #### CBC #### [facility] [address] [address] [address] Neisha Cam [facility] Hospital - CantonComment on above: Performed By: #### CBC #### [facility] [address] [place] [address] Dr. Neisha AraizaOxygen (Bld) [Partial pressure]95.8 mm[Hg]Puprgh91.0-100.0The [facility] HospitalComment on above:Performed By: #### CBC #### [facility] [address] [place] [address] Dr. Neisha Lazaro saturation in Blood98.6 %Vqsork74.0-100.0The [facility] HospitalComment on above:Performed By: #### CBC #### [facility] [address] [place] [address] Dr. Neisha AraizaPCO222.9 mmHgCritically low35.0-45.0The [facility] HospitalComasc[facility] on above:Performed By: #### CBC #### [facility] [address] [place] [address] Dr. Neisha AraizaAdena Health SystemComascension [facility] on above:Performed By: #### CBC #### [facility] [address] [place] [address] Dr. Neisha AraizapH (Bld)7.408 [pH]Normal7.350-7.450The [facility] on above:Performed By: #### CBC #### [facility] [address] [place] [address] Dr. Neisha DianeCleveland Clinic Akron GeneralComascension [facility] on above:Performed By: #### CBC #### [facility] [address] [place] [address] Dr. Neisha AraizaUniversity Hospitals Cleveland Medical CenterComascension [facility] on above:Performed By: #### CBC #### [facility] [address] [place] [address] Dr. Neisha Pabon [facility] on above: Performed By: #### CBC #### [facility] [address] [place] [address] Dr. Neisha Lingatrium health ansonThe [facility] on above:Performed By: #### CBC #### [facility] [address] [place] [address] Dr. Neisha AraizaMercy Health Perrysburg HospitalComascension [facility] on above:Performed By: #### CBC #### [facility] [address] [place] [address] Dr. Driver [facility] on above:Performed By: #### CBC #### [facility] [address] [place] [address] Dr. Neisha CardenasC AUTO DIFFon [id number] #0.0 103/ulNormal0.0-0.1The [facility] on above:Performed By: #### CBC #### [facility] [address] [place] [address] Dr. Neisha AraizaBasophils/100 WBC (Bld)0.3 %Normal0.2-2.0[facility] on above:Performed By: #### CBC #### [facility] [address] [place] [address] Dr. Neisha Mcconnell #0.0 103/ulNormal0.0-0.7The [facility] on above: Performed By: #### CBC #### [facility] [address] [place] [address] Dr. Neisha Paigeosinophils/100 WBC (Bld)0.0 %Critically low0.9-7.0The [facility] on above:Performed By: #### CBC #### [facility] [address] [place] [address] Dr. Neisha Paigerythrocyte distribution width (RBC) [Ratio]13.5 %Hgwfrz32.0-15.0 [facility] on above:Performed By: #### CBC #### [facility] [address] [address] [address] Neisha AraizaHematocrit (Bld) [Volume fraction]39.1 %Extboz95.0-48.0The [facility] HospitalComment on above:Performed By: #### CBC #### [facility] [address] [address] [address] Neisha AraizaHemoglobin (Bld) [Mass/Vol]13.3 g/cRDngfif06.0-16.0The [facility] HospitalComment on above:Performed By: #### CBC #### [facility] [address] [place] [address] Dr. Neisha Gould #0.05 10e3/ulCritically high0.00-0.03The [facility] Comment on above:Performed By: #### CBC #### [facility] [address] [place] [address] Dr. Neisha Gould %0.5 %Normal0.0-0.5The [facility] HospitalComment on above: Performed By: #### CBC #### [facility] [address] [place] [address] Dr. Neisha Sánchez #1.4 103/ulNormal1.2-3.8The [facility] HospitalComment on above:Performed By: #### CBC #### [facility] [address] [place] [address] Dr. Neisha Davishocytes/100 WBC (Bld)14.8 %Critically low20.5-60.0The [facility] HospitalComment on above:Performed By: #### CBC #### [facility] [address] [place] [address] Dr. Neisha MelgarUAL DIFF REQNONormalThe [facility] HospitalComment on above: Performed By: #### CBC #### [facility] [address] [place] [address] Dr. Neisha Torres (RBC) [Entitic mass]28.6 xqZyhqpa98.7-34.0The [facility] HospitalComment on above:Performed By: #### CBC #### [facility] [address] [address] [address] Neisha CampaHC (RBC) [Mass/Vol]34.0 g/mJFekluo15.9-35.2The [facility] HospitalComment on above:Performed By: #### CBC #### [facility] [address] [address] [address] Neisha CampaV (RBC) [Entitic vol]84.1 fUGzlpjm43.0-99.0The [facility] HospitalComment on above:Performed By: #### CBC #### [facility] [address] [place] [address] Dr. Neisha Evans #0.6 103/ulNormal0.3-0.8The [facility] HospitalComment on above:Performed By: #### CBC #### [facility] [address] [place] [address] Dr. Neisha Plasenciaocytes/100 WBC (Bld)5.8 %Normal1.7-12.0[facility] Comment on above:Performed By: #### CBC #### [facility] [address] [place] [address] Dr. Neisha Santos #7.6 103/ulCritically high1.4-6.5The [facility] Comment on above:Performed By: #### CBC #### [facility] [address] [address] [address] Neisha Samuelutrophils/100 WBC (Bld)78.6 %Critically high43.0-75.0The [facility] HospitalComment on above:Performed By: #### CBC #### [facility] [address] [address] [address] Neisha Meilet mean volume (Bld) [Entitic vol]9.9 fLNormal9.5-13.5The [facility] HospitalComment on above:Performed By: #### CBC #### [facility] [address] [address] [address] Neisha AraizaPLT280 103/skTlkozh149-513AdxCleveland Clinic [facility] on above: Performed By: #### CBC #### [facility] [address] [address] [address] Neisha AraizaRBC4.65 106/ulNormal4.20-5.40The [facility] on above:Performed By: #### CBC #### [facility] [address] [place] [address] Dr. Neisha rAaizaWBC9.7 103/ulNormal4.0-11.0The [facility] on above: Performed By: #### CBC #### [facility] [address] [place] [address] Dr. Neisha AraizaCovimagnus-19 PCR ([facility])on [id number]-CoV-2 (COVID-19) RNA TIM+probe Ql (Unsp spec)Not detectedNormalNOT DETECTEDC[facility] Clinic [facility] Comment on above:Result Comment: When diagnostic testing [...] for this test is supported by the Global Climate Change Analyst of Health and Human Service's declaration that [...] longer be used).Performed By: #### CBC #### [facility] [address] [place] [address] Dr. Neisha AraizaPOINT OF CARE GLUCOSEon [id number] [Mass/Vol]215 mg/dL Critically uunl74-713Mzk [facility] on above:Performed By: #### BASIA MCCANN, CMP #### [facility] [address] [address] [address] Neisha AraizaGlucose [Mass/Vol]187 mg/dLCritically xbhx80-828Pff [facility] HospitalComment on above:Performed By: #### CBC #### [facility] [address] [address] [address] Neisha AraizaGlucose [Mass/Vol]240 mg/dLCritically qxfk26-070Upb [facility] HospitalComment on above:Performed By: #### CBC #### [facility] [address] [place] [address] Dr. Neisha AraizaGlucose [Mass/Vol]251 mg/dLCritically lsga21-765Jin [facility] HospitalComasc[facility] on above:Performed By: #### CBC #### [facility] [address] [place] [address] Dr. Neisha AraizaGlucose [Mass/Vol]264 mg/dLCritically sjin70-484Vrr [facility] HospitalComment on above:Performed By: #### BASIA MCCANN, CMP #### [facility] [address] [place] [address] Dr. Neisha AraizaPROF 14(COMP METB)on [id number] [Mass/Vol]2.9 g/dL Critically low3.4-5.0The [facility] HospitalComasc[facility] on above:Performed By: #### BASIA MCCANN, CMP #### [facility] [address] [place] [address] Dr. Neisha AraizaAlbumin/Globulin [Mass ratio]0.9 {ratio}NormalThe [facility] HospitalComasc[facility] on above:Performed By: #### BASIA MCCANN, CMP #### [facility] [address] [place] [address] Dr. Neisha FletcherP [Catalytic activity/Vol]92 U/OAxtcwy66-474Xca [facility] on above:Performed By: #### BASIA MCCANN, CMP #### [facility] [address] [place] [address] Dr. Neisha Seay [Catalytic activity/Vol]28 U/UDzhopj84-38Enw David HospitalComment on above:Performed By: #### BASIA MCCANN, CMP #### [facility] [address] [place] [address] Dr. Neisha Contion gap [Moles/Vol]19.9 mmol/LNormalC[facility] Clinic [facility] Comment on above:Performed By: #### LIPWade, BASIA, CMP #### [facility] [address] [place] [address] Dr. Neisha AraizaAST [Catalytic activity/Vol]14 U/LCritically wat31-63Uui [facility] HospitalComment on above:Performed By: #### LIPWade BASIA, CMP #### [facility] [address] [place] [address] Dr. Neisha AraizaCalcium [Mass/Vol]7.8 mg/dLCritically low8.5-10.1The [facility] HospitalComment on above:Performed By: #### RAMY BASIA, CMP #### [facility] [address] [place] [address] Dr. Neisha AraizaChloride [Moles/Vol]102 mmol/CFkwoxv55-719GvxCleveland Clinic [facility] Comment on above:Performed By: #### BASIA MCCANN, CMP #### [facility] [address] [place] [address] Dr. Neisha AraizaCO2 [Moles/Vol]17.7 mmol/LCritically low21.0-32.0The [facility] HospitalComment on above:Performed By: #### RAMY BASIA, CMP #### [facility] [address] [place] [address] Dr. Neisha AraizaCreatinine [Mass/Vol]0.60 mg/dLNormal0.55-1.02The [facility] HospitalComment on above:Performed By: #### LIPWade BASIA, CMP #### [facility] [address] [place] [address] Dr. Neisha Timmons-AF CONGOLESE>60Normal>=60The [facility] HospitalComment on above:Performed By: #### LIPA BASIA, CMP #### [facility] [address] [place] [address] Dr. Yilan ChangEGFR-NON AF CONGOLESE>60Normal>=60The [facility] HospitalComment on above:Performed By: #### BASIA MCCANN, CMP #### [facility] [address] [address] [address] Neisha AraizaGlobulin (S) [Mass/Vol]3.4 g/dLNoMemorial Health System Marietta Memorial HospitalComment on above:Performed By: #### BASIA MCCANN, CMP #### [facility] [address] [address] [address] Neisha AraizaGlucose [Mass/Vol]272 mg/dLCritically zdla50-979Xpo [facility] HospitalComment on above:Performed By: #### BASIA MCCANN, CMP #### [facility] [address] [place] [address] Dr. Neisha AraizaPotassium [Moles/Vol]3.6 mmol/LNormal3.5-5.1The [facility] Comment on above:Performed By: #### BASIA MCCANN, CMP #### [facility] [address] [place] [address] Dr. Neisha AraizaProtein [Mass/Vol]6.3 g/dLCritically low6.4-8.2The [facility] HospitalComment on above:Performed By: #### BASIA MCCANN, CMP #### [facility] [address] [place] [address] Dr. Neisha AraizaSodium [Moles/Vol]136 mmol/CYweqet827-509Lor [facility] Comment on above:Performed By: #### BASIA MCCANN, CMP #### [facility] [address] [place] [address] Dr. Neisha AraizaUrea nitrogen [Mass/Vol]9.0 mg/dLNormal7.0-18.0The [facility] HospitalComment on above:Performed By: #### BASIA MCCANN, CMP #### [facility] [address] [place] [address] Dr. Neisha AraizaUrea nitrogen/Creatinine [Mass ratio]15.0 mg/mgNoMemorial Health System Marietta Memorial HospitalComment on above:Performed By: #### JORDANA BASIA, CMP #### [facility] [address] [place] [address] Dr. Neisha Feliciano ABD FLAT_UPon [id number] ABD FLAT_UPEXAM: XR ABD FLAT_UP HISTORY: Vomiting [...] by: MARIAELENA BROWN Date: 2022-01-04 01:26Normal The [facility] HospitalACETONE SERUMon [id number]DOBKUBgi Bellevue HospitalComment on above:Performed By: #### ACETON #### [facility] [address] [place] [address] Dr. Neisha RetanaONESMALLAbnormalNEGATIVECleveland Clinic Akron GeneralComment on above:Performed By: #### CBC #### [facility] [address] [place] [address] Dr. Neisha AraizaAMYLASEon [id number] [Catalytic activity/Vol]15 U/L Critically ovi48-548NkvCleveland Clinic Akron GeneralComment on above:Performed By: #### LIPBASIA Olvera, CMP #### [facility] [address] [place] [address] Dr. Neisha AraizaCARDIAC BRI ADMITon [id number] [Catalytic activity/Vol]44 U/L Agpkqn49-428YacCleveland Clinic Akron GeneralComment on above:Performed By: #### LIPA BASIA, CMP #### [facility] [address] [place] [address] Dr. Neisha Gonzalez.MB [Mass/Vol]0.93 ng/mLNormal<=3.60[facility] Comment on above:Performed By: #### LIPA BASIA, CMP #### [facility] [address] [place] [address] Dr. Neisha AraizaTROP4.1 pg/mLNormal4.0-51.3The [facility] HospitalComment on above:Result Comment: CUT-OFF POINTS HAVE BEEN ESTABLISHED BASED ON THE FOURTH UNIVERSAL DEFINITIONS OF MYOCARDIAL INFARCTION. THE UPPER REFERENCE LIMIT (URL) OF TROPONIN, DEFINED THE 99TH PERCENTILE OF cTnI DISTRIBUTION IN A REFERENCE POPULATION, HAS BEEN CONFIRMED THE DECISION THRESHOLD FOR MD DIAGNOSIS.Performed By: #### BASIA MCCANN, CMP #### [facility] [address] [place] [address] Dr. Neisha AraizaMYO20 ng/mLNormal9-82The [facility] on above: Performed By: #### BASIA MCCANN, CMP #### [facility] [address] [place] [address] Dr. Neisha Price AUTO DIFFon 41-35-8128Ebylfmgft/100 WBC (Bld)0.3 %Normal 0.2-2.0The [facility] on above:Performed By: #### CBC #### [facility] [address] [place] [address] Dr. Neisha AraizaHematocrit (Bld) [Volume fraction]42.7 %Yytwvo29.0-48.0The [facility] HospitalComment on above:Performed By: #### CBC #### [facility] [address] [place] [address] Dr. Neisha AraizaHemoglobin (Bld) [Mass/Vol]14.3 g/pOJuxynl96.0-16.0The [facility] on above:Performed By: #### CBC #### [facility] [address] [place] [address] Dr. Neisha Gould #0.03 10e3/ulNormal0.00-0.03The [facility] on above:Performed By: #### CBC #### [facility] [address] [place] [address] Dr. Neisha Gould %0.3 %Normal0.0-0.5The [facility] on above: Performed By: #### CBC #### [facility] [address] [place] [address] Dr. Neisha Sánchez #1.1 103/ulCritically low1.2-3.8ThOhioHealth Dublin Methodist Hospital Comment on above:Performed By: #### CBC #### [facility] [address] [place] [address] Dr. Neisha Jordanmphocytes/100 WBC (Bld)12.9 %Critically low20.5-60.0The [facility] HospitalComment on above:Performed By: #### CBC #### [facility] [address] [place] [address] Dr. Neisha CampaHC (RBC) [Mass/Vol]33.5 g/eAAvvomz72.9-35.2The [facility] HospitalComment on above:Performed By: #### CBC #### [facility] [address] [place] [address] Dr. Neisha CampaV (RBC) [Entitic vol]85.2 uSFjjqia78.0-99.0[facility] GeneralComment on above:Performed By: #### CBC #### [facility] [address] [place] [address] Dr. Neisha Evans #0.3 103/ulNormal0.3-0.8ThOhioHealth Dublin Methodist HospitalComment on above:Performed By: #### CBC #### [facility] [address] [place] [address] Dr. Neisha Plasenciaocytes/100 WBC (Bld)3.3 %Normal1.7-12.0[facility] Comment on above:Performed By: #### CBC #### [facility] [address] [place] [address] Dr. Neisha Santos #7.3 103/ulCritically high1.4-6.5ThOhioHealth Dublin Methodist Hospital Comment on above:Performed By: #### CBC #### [facility] [address] [place] [address] Dr. Neisha Samuelutrophils/100 WBC (Bld)83.2 %Critically high43.0-75.0[facility] GeneralComment on above:Performed By: #### CBC #### [facility] [address] [place] [address] Dr. Neisha AraizaPLT281 103/sgNbmaxs039-743Ogj [facility] Hospitalment on above: Performed By: #### CBC #### [facility] [address] [place] [address] Dr. Neisha AraizaRBC5.01 106/ulNormal4.20-5.40The [facility] HospitalComment on above:Performed By: #### CBC #### [facility] [address] [place] [address] Dr. Neisha AraizaWBC8.8 103/ulNormal4.0-11.0The [facility]ment on above: Performed By: #### CBC #### [facility] [address] [place] [address] Dr. Neisha Bello #0.0 103/ulNormal0.0-0.1The [facility] Hospitalment on above:Performed By: #### CBC #### [facility] [address] [place] [address] Dr. Neisha AraizaPerformed By: #### ACETON #### [facility] [address] [place] [address] Dr. Neisha Bellophils/100 WBC (Bld)0.5 %Normal0.2-2.0The [facility] on above:Performed By: #### ACETON #### [facility] [address] [place] [address] Dr. Neisha Mcconnell #0.0 103/ulNormal0.0-0.7The [facility] on above: Performed By: #### CBC #### [facility] [address] [place] [address] Dr. Neisha AraizaPerformed By: #### ACETON #### [facility] [address] [place] [address] Dr. Neisha Paigeosinophils/100 WBC (Bld)0.0 %Critically low0.9-7.0The [facility]ment on above:Performed By: #### CBC #### [facility] [address] [place] [address] Dr. Neisha AraizaPerformed By: #### ACETON #### [facility] [address] [place] [address] Dr. Neisha Paigerythrocyte distribution width (RBC) [Ratio]13.2 %Dbhkfz14.0-15.0 The [facility] HospitalComment on above:Performed By: #### CBC #### [facility] [address] [place] [address] Dr. Neisha AraizaPerformed By: #### ACETON #### [facility] [address] [place] [address] Dr. Neisha AraizaHematocrit (Bld) [Volume fraction]45.8 %Tiffnb13.0-48.0The [facility] HospitalComment on above:Performed By: #### ACETON #### [facility] [address] [place] [address] Dr. Neisha AraizaHemoglobin (Bld) [Mass/Vol]15.6 g/eMChjild79.0-16.0The [facility] HospitalComment on above:Performed By: #### ACETON #### [facility] [address] [place] [address] Dr. Neisha Gould #0.05 10e3/ulCritically high0.00-0.03[facility] Comment on above:Performed By: #### ACETON #### [facility] [address] [place] [address] Dr. Neisha Gould %0.6 %Critically high0.0-0.5ThOhioHealth Dublin Methodist HospitalComment on above:Performed By: #### ACETON #### [facility] [address] [place] [address] Dr. Neisha Sánchez #0.7 103/ulCritically low1.2-3.8The [facility] Comment on above:Performed By: #### ACETON #### [facility] [address] [place] [address] Dr. Neisha Jordanmphocytes/100 WBC (Bld)8.3 %Critically low20.5-60.0The [facility] HospitalComment on above:Performed By: #### ACETON #### [facility] [address] [place] [address] Dr. Neisha Shahid DIFF REQNONormalThe [facility] HospitalComment on above: Performed By: #### CBC #### [facility] [address] [place] [address] Dr. Neisha AraizaPerformed By: #### ACETON #### [facility] [address] [place] [address] Dr. Neisha Campa (RBC) [Entitic mass]28.5 bvUfxolx22.7-34.0The [facility] HospitalComment on above:Performed By: #### CBC #### [facility] [address] [place] [address] Dr. Neisha AraizaPerformed By: #### ACETON #### [facility] [address] [place] [address] Dr. Neisha Campa (RBC) [Mass/Vol]34.1 g/nJNakdwz29.9-35.2The [facility] HospitalComment on above:Performed By: #### ACETON #### [facility] [address] [place] [address] Dr. Neisha Campa (RBC) [Entitic vol]83.7 tMZydpuw51.0-99.0The [facility] HospitalComment on above:Performed By: #### ACETON #### [facility] [address] [place] [address] Dr. Neisha Evans #0.2 103/ulCritically low0.3-0.8The [facility] HospitalComment on above:Performed By: #### ACETON #### [facility] [address] [place] [address] Dr. Neisha Plasenciaocytes/100 WBC (Bld)2.7 %Normal1.7-12.0The [facility] Comment on above:Performed By: #### ACETON #### [facility] [address] [place] [address] Dr. Neisha Santos #6.9 103/ulCritically high1.4-6.5The [facility] Comment on above:Performed By: #### ACETON #### [facility] [address] [place] [address] Dr. Neisha Samuelutrophils/100 WBC (Bld)87.9 %Critically high43.0-75.0The [facility] HospitalComment on above:Performed By: #### ACETON #### [facility] [address] [place] [address] Dr. Neisha AraizaPlatelet mean volume (Bld) [Entitic vol]9.9 fLNormal9.5-13.5The [facility] HospitalComment on above:Performed By: #### CBC #### [facility] [address] [place] [address] Dr. Neisha AraizaPerformed By: #### ACETON #### [facility] [address] [place] [address] Dr. Neisha AraizaPLT260 103/ofDwuooq545-884Xel [facility] HospitalComment on above: Performed By: #### ACETON #### [facility] [address] [place] [address] Dr. Neisha AraizaRBC5.47 106/ulCritically high4.20-5.40[facility] Comment on above:Performed By: #### ACETON #### [facility] [address] [place] [address] Dr. Neisha AraizaWBC7.8 103/ulNormal4.0-11.0The [facility] HospitalComment on above: Performed By: #### ACETON #### [facility] [address] [place] [address] Dr. Neisha AraizaLIPASEon 86-44-2798Grqswq [Catalytic activity/Vol]72.0 U/L Critically low73.0-393.0The [facility] HospitalComment on above:Performed By: #### LIPA, BASIA, CMP #### [facility] [address] [place] [address] Dr. Neisha Andrea VENOUS BLOODon 38-38-0078CIJ0 ICLBLG47.2 mmHgCritically low 40.0-52.0The [facility]ment on above:Performed By: #### BASIA MCCANN, CMP #### [facility] [address] [place] [address] Dr. Neisha Andrea VENOUS7.710Tiieri6.330-7.430The [facility] HospitalComment on above:Performed By: #### BASIA MCCANN, CMP #### [facility] [address] [place] [address] Dr. Neisha AraizaSAINT [place] OF CARE GLUCOSEon [id number] [Mass/Vol]283 mg/dL Critically fadn34-513Kyt [facility] on above:Performed By: #### BASIA MCCANN, CMP #### [facility] [address] [place] [address] Dr. Neisha AraizaGlucose [Mass/Vol]297 mg/dLCritically ciul09-807Wng [facility]Com[facility] on above:Performed By: #### ACETON #### [facility] [address] [place] [address] Dr. Neisha AraizaPROF 14(COMP METB)on [id number] [Mass/Vol]3.6 g/dLNormal 3.4-5.0The [facility] on above:Performed By: #### BASIA MCCANN, CMP #### [facility] [address] [place] [address] Dr. Neisha AraizaAlbumin/Globulin [Mass ratio]0.8 {ratio}NormalThe [facility] on above:Performed By: #### BASIA MCCANN, CMP #### [facility] [address] [place] [address] Dr. Neisha Pettit [Catalytic activity/Vol]131 U/LCritically uzki99-239Dpl [facility] on above:Performed By: #### BASIA MCCANN, CMP #### [facility] [address] [place] [address] Dr. Neisha Seay [Catalytic activity/Vol]39 U/YAbuwuy66-11Tpz [facility] HospitalComment on above:Performed By: #### BASIA MCCANN, CMP #### [facility] [address] [place] [address] Dr. Neisha Contion gap [Moles/Vol]20.7 mmol/LNormalThe [facility] Comment on above:Performed By: #### LIPWade BASIA, CMP #### [facility] [address] [place] [address] Dr. Neisha AraizaAST [Catalytic activity/Vol]19 U/GNzamxn43-00Jmg [facility] HospitalComment on above:Performed By: #### BASIA MCCANN, CMP #### [facility] [address] [place] [address] Dr. Neisha AraizaCalcium [Mass/Vol]8.9 mg/dLNormal8.5-10.1The [facility] Comment on above:Performed By: #### RAMY BASIA, CMP #### [facility] [address] [place] [address] Dr. Neisha AraizaChloride [Moles/Vol]97 mmol/LCritically vgp81-543Vsm [facility] HospitalComment on above:Performed By: #### BASIA MCCANN, CMP #### [facility] [address] [place] [address] Dr. Neisha AraizaCO2 [Moles/Vol]19.2 mmol/LCritically low21.0-32.0The [facility] HospitalComment on above:Performed By: #### RAMY BASIA, CMP #### [facility] [address] [place] [address] Dr. Neisha AraizaCreatinine [Mass/Vol]0.60 mg/dLNormal0.55-1.02The [facility] HospitalComment on above:Performed By: #### LIPWade BASIA, CMP #### [facility] [address] [place] [address] Dr. Neisha AraizaGlobulin (S) [Mass/Vol]4.3 g/dLNormalThe [facility] HospitalComment on above:Performed By: #### LIPA, BASIA, CMP #### [facility] [address] [address] [address] Neisha AraizaGlucose [Mass/Vol]368 mg/dLCritically iqvk36-242Mge [facility] HospitalComment on above:Performed By: #### BASIA MCCANN, CMP #### [facility] [address] [address] [address] Neisha AraizaProtein [Mass/Vol]7.9 g/dLNormal6.4-8.2The [facility] Comment on above:Performed By: #### BASIA MCCANN, CMP #### [facility] [address] [place] [address] Dr. Neisha AraizaSodium [Moles/Vol]133 mmol/LCritically qzh375-999Usu [facility] HospitalComment on above:Performed By: #### BASIA MCCANN, CMP #### [facility] [address] [place] [address] Dr. Neisha AraizaUrea nitrogen [Mass/Vol]13.0 mg/dLNormal7.0-18.0The [facility] HospitalComment on above:Performed By: #### BASIA MCCANN, CMP #### [facility] [address] [place] [address] Dr. Neisha Monterroso nitrogen/Creatinine [Mass ratio]21.7 mg/mgNormalThe [facility] HospitalComment on above:Performed By: #### BASIA MCCANN, CMP #### [facility] [address] [place] [address] Dr. Neisha AraizaPROF CHEM 8 (BAS METB)on [id number] gap [Moles/Vol]20.2 mmol/LNormalThe [facility] HospitalComment on above:Performed By: #### BASIA MCCANN, CMP #### [facility] [address] [place] [address] Dr. Neisha AraizaCalcium [Mass/Vol]8.0 mg/dLCritically low8.5-10.1The [facility] HospitalComment on above:Performed By: #### BASIA MCCANN, CMP #### [facility] [address] [address] [address] Neisha AraizaChloride [Moles/Vol]102 mmol/DPvutcg02-854Idx [facility] Comment on above:Performed By: #### BASIA MCCANN, CMP #### [facility] [address] [address] [address] Neisha AraizaCO2 [Moles/Vol]16.7 mmol/LCritically low21.0-32.0The [facility] HospitalComment on above:Performed By: #### BASIA MCCANN, CMP #### [facility] [address] [address] [address] Neisha AraizaCreatinine [Mass/Vol]0.62 mg/dLNormal0.55-1.02The [facility] on above:Performed By: #### BASIA MCCANN, CMP #### [facility] [address] [place] [address] Dr. Neisha AraizaGlucose [Mass/Vol]287 mg/dLCritically hksr12-144Zyc [facility] HospitalComment on above:Performed By: #### BASIA MCCANN, CMP #### [facility] [address] [address] [address] Neisha AraizaSodium [Moles/Vol]135 mmol/LCritically fdy553-671Poj [facility] Hospitalment on above:Performed By: #### BASIA MCCANN, CMP #### [facility] [address] [address] [address] Neisha AraizaUrea nitrogen [Mass/Vol]11.0 mg/dLNormal7.0-18.0The [facility]ment on above:Performed By: #### BASIA MCCANN, CMP #### [facility] [address] [place] [address] Dr. Neisha AraizaUrea nitrogen/Creatinine [Mass ratio]17.7 mg/mgNormalThe [facility] HospitalCom[facility] on above:Performed By: #### BASIA MCCANN, CMP #### [facility] [address] [address] [address] Neisha PaigeGFR-AF CONGOLESE>60Normal>=60The [facility] HospitalComment on above:Performed By: #### BASIA MCCANN, CMP #### [facility] [address] [address] [address] Neisha PaigeGFR-NON AF CONGOLESE>60Normal>=60The [facility] HospitalComment on above:Performed By: #### BASIA MCCANN, CMP #### [facility] [address] [address] [address] Neisha AraizaPotassium [Moles/Vol]3.9 mmol/LNormal3.5-5.1[facility] Comment on above:Performed By: #### BASIA MCCANN, CMP #### [facility] [address] [place] [address] Dr. Neisha Price AUTO DIFFon [id number] #0.1 103/ulNormal0.0-0.1[facility] GeneralComment on above:Performed By: #### CBC #### [facility] [address] [place] [address] Dr. Neisha AraizaBasophils/100 WBC (Bld)0.6 %Normal0.2-2.0[facility] Comment on above:Performed By: #### CBC #### [facility] [address] [place] [address] Dr. Neisha Mcconnell #0.0 103/ulNormal0.0-0.7The [facility] HospitalComment on above: Performed By: #### CBC #### [facility] [address] [place] [address] Dr. Neisha aPigeosinophils/100 WBC (Bld)0.5 %Critically low0.9-7.0The [facility] HospitalComment on above:Performed By: #### CBC #### [facility] [address] [place] [address] Dr. Neisha Berriosthrocyte distribution width (RBC) [Ratio]12.6 %Sxbtwy85.0-15.0 The [facility] HospitalComment on above:Performed By: #### CBC #### [facility] [address] [place] [address] Dr. Neisha AraizaHematocrit (Bld) [Volume fraction]40.7 %Qeammb65.0-48.0The [facility] HospitalComment on above:Performed By: #### CBC #### [facility] [address] [address] [address] Neisha AraizaHemoglobin (Bld) [Mass/Vol]14.4 g/nVUmzmed43.0-16.0The [facility] HospitalComment on above:Performed By: #### CBC #### [facility] [address] [address] [address] Neisha AraizaIG #0.05 10e3/ulCritically high0.00-0.03The [facility] Comment on above:Performed By: #### CBC #### [facility] [address] [place] [address] Dr. Neisha AraizaIG %0.6 %Critically high0.0-0.5The [facility] HospitalComment on above:Performed By: #### CBC #### [facility] [address] [place] [address] Dr. Neisha Sánchez #2.3 103/ulNormal1.2-3.8The [facility] HospitalComment on above:Performed By: #### CBC #### [facility] [address] [place] [address] Dr. Neisha Jordanmphocytes/100 WBC (Bld)26.2 %Pjljtu01.5-60.0The [facility] HospitalComment on above:Performed By: #### CBC #### [facility] [address] [place] [address] Dr. Neisha AraizaMANUAL DIFF REQNONormalThe [facility] HospitalComment on above: Performed By: #### CBC #### [facility] [address] [place] [address] Dr. Neisah Torres (RBC) [Entitic mass]28.4 qsDvhlcy33.7-34.0The [facility] HospitalComment on above:Performed By: #### CBC #### [facility] [address] [place] [address] Dr. Neisha CampaHC (RBC) [Mass/Vol]35.4 g/dLCritically high29.9-35.2The [facility] HospitalComment on above:Performed By: #### CBC #### [facility] [address] [address] [address] Neisha CampaV (RBC) [Entitic vol]80.3 fLCritically low81.0-99.0The [facility] HospitalComment on above:Performed By: #### CBC #### [facility] [address] [address] [address] Neisha Evans #0.5 103/ulNormal0.3-0.8The [facility] HospitalComment on above:Performed By: #### CBC #### [facility] [address] [address] [address] Neisha Plasenciaocytes/100 WBC (Bld)5.5 %Normal1.7-12.0The [facility] Comment on above:Performed By: #### CBC #### [facility] [address] [address] [address] Neisha Santos #5.7 103/ulNormal1.4-6.5The [facility] HospitalComment on above:Performed By: #### CBC #### [facility] [address] [address] [address] Neisha Samuelutrophils/100 WBC (Bld)66.6 %Icsfnk48.0-75.0The [facility] HospitalComment on above:Performed By: #### CBC #### [facility] [address] [address] [address] Neisha Meilet mean volume (Bld) [Entitic vol]9.5 fLNormal9.5-13.5The [facility] HospitalComment on above:Performed By: #### CBC #### [facility] [address] [address] [address] Neisha AraizaPLT266 103/zpQtusna084-125Lzf [facility] HospitalComment on above: Performed By: #### CBC #### [facility] [address] [place] [address] Dr. Neisha AraizaRBC5.07 106/ulNormal4.20-5.40The [facility] on above:Performed By: #### CBC #### [facility] [address] [place] [address] Dr. Neisha AraizaWBC8.6 103/ulNormal4.0-11.0The [facility] HospitalComment on above: Performed By: #### CBC #### [facility] [address] [place] [address] Dr. Neisha AraizaPOINT OF CARE GLUCOSEon [id number] [Mass/Vol]157 mg/dL Critically gses06-609Lhg [facility] on above:Performed By: #### CBC #### [facility] [address] [place] [address] Dr. Neisha AraizaGlucose [Mass/Vol]223 mg/dLCritically ntyt50-705Ngv [facility] on above:Performed By: #### BASIA MCCANN, CMP #### [facility] [address] [place] [address] Dr. Neisha AraizaPROF 14(COMP METB)on [id number] [Mass/Vol]3.1 g/dL Critically low3.4-5.0The [facility] on above:Performed By: #### CBC #### [facility] [address] [place] [address] Dr. Neisha AraizaAlbumin/Globulin [Mass ratio]0.9 {ratio}NormalThe [facility] on above:Performed By: #### CBC #### [facility] [address] [place] [address] Dr. Neisha Pettit [Catalytic activity/Vol]96 U/IRvchjg47-765Wni [facility] on above:Performed By: #### CBC #### [facility] [address] [place] [address] Dr. Neisha Seay [Catalytic activity/Vol]28 U/VWkvneg87-83Aqy [facility] HospitalComment on above:Performed By: #### CBC #### [facility] [address] [address] [address] Neisha Montalvo gap [Moles/Vol]17.9 mmol/LNormalThe [facility] Comment on above:Performed By: #### CBC #### [facility] [address] [address] [address] Neisha AraizaAST [Catalytic activity/Vol]19 U/CYeomnl46-32Uho [facility] HospitalComment on above:Performed By: #### CBC #### [facility] [address] [address] [address] Neisha AraizaBilirubin [Mass/Vol]1.0 mg/dLNormal0.2-1.0The [facility] Comment on above:Performed By: #### CBC #### [facility] [address] [place] [address] Dr. Neisha AriazaCalcium [Mass/Vol]8.1 mg/dLCritically low8.5-10.1The [facility] HospitalComment on above:Performed By: #### CBC #### [facility] [address] [place] [address] Dr. Neisha AraizaChloride [Moles/Vol]95 mmol/LCritically kip81-631Zcy [facility] HospitalCom[facility] on above:Performed By: #### CBC #### [facility] [address] [place] [address] Dr. Neisha AraizaCO2 [Moles/Vol]19.2 mmol/LCritically low21.0-32.0The [facility] HospitalComment on above:Performed By: #### CBC #### [facility] [address] [address] [address] Neisha AraizaCreatinine [Mass/Vol]0.51 mg/dLCritically low0.55-1.02The [facility] HospitalComment on above:Performed By: #### CBC #### [facility] [address] [address] [address] Driver ChangEGFR-AF CONGOLESE>60Normal>=60The [facility] HospitalComment on above:Performed By: #### CBC #### [facility] [address] [address] [address] Neisha PaigeGFR-NON AF CONGOLESE>60Normal>=60The [facility] HospitalComment on above:Performed By: #### CBC #### [facility] [address] [address] [address] Neisha AraizaGlobulin (S) [Mass/Vol]3.6 g/dLNormalThOhioHealth Dublin Methodist HospitalComment on above:Performed By: #### CBC #### [facility] [address] [address] [address] Neisha AraizaGlucose [Mass/Vol]230 mg/dLCritically intj18-494Bfu [facility] HospitalComment on above:Performed By: #### CBC #### [facility] [address] [address] [address] Neisha AraizaPotassium [Moles/Vol]3.1 mmol/LCritically low3.5-5.1The [facility] HospitalComment on above:Performed By: #### CBC #### [facility] [address] [address] [address] Neisha AraizaProtein [Mass/Vol]6.7 g/dLNormal6.4-8.2The [facility] Comment on above:Performed By: #### CBC #### [facility] [address] [address] [address] Neisha AraizaSodium [Moles/Vol]129 mmol/LCritically bjj049-698Jmy [facility] Hospitalment on above:Performed By: #### CBC #### [facility] [address] [address] [address] Neisha AraizaUrea nitrogen [Mass/Vol]5.0 mg/dLCritically low7.0-18.0The [facility] HospitalComment on above:Performed By: #### CBC #### [facility] [address] [address] [address] Neisha AraizaUrea nitrogen/Creatinine [Mass ratio]9.8 mg/mgNormalThe [facility] HospitalComment on above:Performed By: #### CBC #### [facility] [address] [address] [address] Neisha Price AUTO DIFFon [id number] #0.0 103/ulNormal0.0-0.1The [facility] HospitalComment on above:Performed By: #### CBC #### [facility] [address] [place] [address] Dr. Neisha AraizaBasophils/100 WBC (Bld)0.5 %Normal0.2-2.0The [facility] Comment on above:Performed By: #### CBC #### [facility] [address] [place] [address] Dr. Neisha Mcconnell #0.0 103/ulNormal0.0-0.7The [facility] HospitalComment on above: Performed By: #### CBC #### [facility] [address] [place] [address] Dr. Neisha Paigeosinophils/100 WBC (Bld)0.2 %Critically low0.9-7.0The [facility] HospitalComment on above:Performed By: #### CBC #### [facility] [address] [place] [address] Dr. Neisha Paigerythrocyte distribution width (RBC) [Ratio]12.4 %Ubuydh36.0-15.0 The [facility] HospitalComment on above:Performed By: #### CBC #### [facility] [address] [place] [address] Dr. Neisha AraizaHematocrit (Bld) [Volume fraction]39.3 %Xxzgum87.0-48.0The [facility] HospitalComment on above:Performed By: #### CBC #### [facility] [address] [place] [address] Dr. Neisha AraizaHemoglobin (Bld) [Mass/Vol]13.5 g/bUOlofei41.0-16.0[facility] GeneralComment on above:Performed By: #### CBC #### [facility] [address] [place] [address] Dr. Neisha Gould #0.04 10e3/ulCritically high0.00-0.03The [facility] Comment on above:Performed By: #### CBC #### [facility] [address] [place] [address] Dr. Neisha Gould %0.5 %Normal0.0-0.5The [facility] HospitalComment on above: Performed By: #### CBC #### [facility] [address] [address] [address] Neisha Sánchez #1.8 103/ulNormal1.2-3.8The [facility] HospitalComment on above:Performed By: #### CBC #### [facility] [address] [place] [address] Dr. Neisha Davishocytes/100 WBC (Bld)21.7 %Gkmifw56.5-60.0The [facility] HospitalComment on above:Performed By: #### CBC #### [facility] [address] [place] [address] Dr. Neisha Shahid DIFF REQNONormalThe [facility] HospitalComment on above: Performed By: #### CBC #### [facility] [address] [place] [address] Dr. Neisha Torres (RBC) [Entitic mass]28.2 urOjdkwe60.7-34.0The [facility] HospitalComment on above:Performed By: #### CBC #### [facility] [address] [place] [address] Dr. Neisha Campa (RBC) [Mass/Vol]34.4 g/dSZnwlsk61.9-35.2The [facility] HospitalComment on above:Performed By: #### CBC #### [facility] [address] [place] [address] Dr. Neisha Campa (RBC) [Entitic vol]82.2 vHTlwyek17.0-99.0[facility] GeneralComment on above:Performed By: #### CBC #### [facility] [address] [place] [address] Dr. Yilan ChangMONO #0.5 103/ulNormal0.3-0.8The [facility] HospitalComment on above:Performed By: #### CBC #### [facility] [address] [place] [address] Dr. Neisha Plasenciaocytes/100 WBC (Bld)6.4 %Normal1.7-12.0The [facility] Comment on above:Performed By: #### CBC #### [facility] [address] [place] [address] Dr. Neisha Santos #5.7 103/ulNormal1.4-6.5The [facility] HospitalComment on above:Performed By: #### CBC #### [facility] [address] [place] [address] Dr. Neisha Samuelutrophils/100 WBC (Bld)70.7 %Houhld76.0-75.0The [facility] HospitalComment on above:Performed By: #### CBC #### [facility] [address] [place] [address] Dr. Neisha Meilet mean volume (Bld) [Entitic vol]9.4 fLCritically low 9.5-13.5The [facility] HospitalComment on above:Performed By: #### CBC #### [facility] [address] [place] [address] Dr. Neisha AraizaPLT250 103/zsFfjxek601-540Dfk [facility] HospitalComment on above: Performed By: #### CBC #### [facility] [address] [place] [address] Dr. Neisha AraizaRBC4.78 106/ulNormal4.20-5.40The [facility] HospitalComment on above:Performed By: #### CBC #### [facility] [address] [place] [address] Dr. Neisha AraizaWBC8.1 103/ulNormal4.0-11.0The [facility] HospitalComment on above: Performed By: #### CBC #### [facility] [address] [place] [address] Dr. Neisha AraizaPIEDMONT [facility] GLUCOSEon 58-23-3329Ivzgkyw [Mass/Vol]232 mg/dL Critically ktqu02-128Rmu [facility] HospitalComment on above:Performed By: #### BASIA MCCANN, CMP #### [facility] [address] [place] [address] Dr. Neisha AraizaGlucose [Mass/Vol]197 mg/dLCritically dwcx39-998Byx [facility] HospitalComment on above:Performed By: #### BASIA MCCANN, CMP #### [facility] [address] [place] [address] Dr. Neisha AraizaGlucose [Mass/Vol]289 mg/dLCritically raxo74-717OxdC[facility] Clinic [facility] GeneralComasc[facility] on above:Performed By: #### CBC #### [facility] [address] [place] [address] Dr. Neisha AraizaGlucose [Mass/Vol]200 mg/dLCritically ndbe46-442BpsCleveland Clinic [facility] GeneralComascension [facility] on above:Performed By: #### ACETON #### [facility] [address] [place] [address] Dr. Neisha AraizaPROF 14(COMP METB)on [id number] [Mass/Vol]2.9 g/dL Critically low3.4-5.0[facility] on above:Performed By: #### BASIA MCCANN, CMP #### [facility] [address] [place] [address] Dr. Neisha AraizaAlbumin/Globulin [Mass ratio]0.8 {ratio}NormalThe [facility] on above:Performed By: #### BASIA MCCANN, CMP #### [facility] [address] [place] [address] Dr. Neisha FletcherP [Catalytic activity/Vol]90 U/DNpdfqn21-925Het [facility] on above:Performed By: #### BASIA MCCANN, CMP #### [facility] [address] [place] [address] Dr. Neisha Seay [Catalytic activity/Vol]26 U/MUhfkph85-26Hxx [facility] HospitalComment on above:Performed By: #### BASIA MCCANN, CMP #### [facility] [address] [address] [address] Neisha Montalvo gap [Moles/Vol]17.6 mmol/LNormalThe [facility] Comment on above:Performed By: #### LIPA, BASIA, CMP #### [facility] [address] [address] [address] Neisha AraizaAST [Catalytic activity/Vol]19 U/OOqnqig47-88Jzr [facility] HospitalComment on above:Performed By: #### LIPA, BASIA, CMP #### [facility] [address] [address] [address] Neisha AraizaBilirubin [Mass/Vol]0.8 mg/dLNormal0.2-1.0The [facility] Comment on above:Performed By: #### LIPA, BASIA, CMP #### [facility] [address] [place] [address] Dr. Neisha AraizaCalcium [Mass/Vol]7.9 mg/dLCritically low8.5-10.1The [facility] HospitalComment on above:Performed By: #### LIPA, BASIA, CMP #### [facility] [address] [place] [address] Dr. Neisha AraizaChloride [Moles/Vol]98 mmol/EZrigsz97-092QfiCleveland Clinic [facility] Comment on above:Performed By: #### LIPA, BASIA, CMP #### [facility] [address] [address] [address] Neisha AraizaCO2 [Moles/Vol]18.6 mmol/LCritically low21.0-32.0The [facility] HospitalComment on above:Performed By: #### LIPA, BASIA, CMP #### [facility] [address] [place] [address] Dr. Neisha AraizaCreatinine [Mass/Vol]0.50 mg/dLCritically low0.55-1.02The [facility] HospitalComment on above:Performed By: #### LIPA, BASIA, CMP #### [facility] [address] [place] [address] Dr. Yilan ChangEGFR-AF CONGOLESE>60Normal>=60The [facility] HospitalComment on above:Performed By: #### BASIA MCCANN, CMP #### [facility] [address] [place] [address] Dr. Neisha PaigeGFR-NON AF CONGOLESE>60Normal>=60The [facility] HospitalComment on above:Performed By: #### BASIA MCCANN, CMP #### [facility] [address] [place] [address] Dr. Neisha AraizaGlobulin (S) [Mass/Vol]3.5 g/dLNormalThe [facility] HospitalComment on above:Performed By: #### BASIA MCCANN, CMP #### [facility] [address] [place] [address] Dr. Neisha AraizaGlucose [Mass/Vol]195 mg/dLCritically dybs18-272Nvc [facility] HospitalComment on above:Performed By: #### BASIA MCCANN, CMP #### [facility] [address] [place] [address] Dr. Neisha AraizaPotassium [Moles/Vol]3.2 mmol/LCritically low3.5-5.1The [facility] HospitalComment on above:Performed By: #### BASIA MCCANN, CMP #### [facility] [address] [place] [address] Dr. Neisha AraizaProtein [Mass/Vol]6.4 g/dLNormal6.4-8.2The [facility] Comment on above:Performed By: #### BASIA MCCANN, CMP #### [facility] [address] [place] [address] Dr. Neisha AraizaSodium [Moles/Vol]131 mmol/LCritically sar100-010Pcz [facility] HospitalComment on above:Performed By: #### BASIA MCCANN, CMP #### [facility] [address] [place] [address] Dr. Neisha AraizaUrea nitrogen [Mass/Vol]7.0 mg/dLNormal7.0-18.0The [facility] HospitalComment on above:Performed By: #### BASIA MCCANN, CMP #### [facility] [address] [place] [address] Dr. Neisha AraizaUrea nitrogen/Creatinine [Mass ratio]14.0 mg/mgNormalThe [facility] HospitalComment on above:Performed By: #### BASIA MCCANN, CMP #### [facility] [address] [place] [address] Dr. Neisha AraizaACETONE SERUMon 42-49-2350ZZTKDWRSJZTBBvupupfeWWOOPBGLLsr [facility] HospitalComment on above:Performed By: #### BASIA MCCANN, CMP #### [facility] [address] [place] [address] Dr. Neisha AraizaAMYLASEon 89-28-9857Zuzzsac [Catalytic activity/Vol]31 U/LNormal 25-115The [facility] HospitalComment on above:Performed By: #### BASIA MCCANN, CMP #### [facility] [address] [place] [address] Dr. Neisha CardenasC AUTO DIFFon 58-66-1501TLWK #0.0 103/ulNormal0.0-0.1The [facility] HospitalComment on above:Performed By: #### CBC #### [facility] [address] [place] [address] Dr. Neisha AraizaBasophils/100 WBC (Bld)0.5 %Normal0.2-2.0The [facility] Comment on above:Performed By: #### CBC #### [facility] [address] [place] [address] Dr. Neisha Mcconnell #0.0 103/ulNormal0.0-0.7The [facility] on above: Performed By: #### CBC #### [facility] [address] [place] [address] Dr. Neisha Paigeosinophils/100 WBC (Bld)0.0 %Critically low0.9-7.0The [facility] HospitalComment on above:Performed By: #### CBC #### [facility] [address] [place] [address] Dr. Yilan ChangErythrocyte distribution width (RBC) [Ratio]12.5 %Picdyy30.0-15.0 [facility] GeneralComment on above:Performed By: #### CBC #### [facility] [address] [place] [address] Dr. Neisha AraizaHematocrit (Bld) [Volume fraction]43.3 %Vdlynz07.0-48.0The [facility] HospitalComment on above:Performed By: #### CBC #### [facility] [address] [place] [address] Dr. Neisha AraizaHemoglobin (Bld) [Mass/Vol]15.3 g/yJLaxmsx62.0-16.0The [facility] HospitalComment on above:Performed By: #### CBC #### [facility] [address] [place] [address] Dr. Neisha Gould #0.06 10e3/ulCritically high0.00-0.03[facility] Comment on above:Performed By: #### CBC #### [facility] [address] [place] [address] Dr. Neisha AraizaIG %0.7 %Critically high0.0-0.5ThOhioHealth Dublin Methodist HospitalComment on above:Performed By: #### CBC #### [facility] [address] [place] [address] Dr. Neisha DavisH #0.9 103/ulCritically low1.2-3.8The [facility] Comment on above:Performed By: #### CBC #### [facility] [address] [place] [address] Dr. Neisha Jordanmphocytes/100 WBC (Bld)10.8 %Critically low20.5-60.0The [facility] HospitalComment on above:Performed By: #### CBC #### [facility] [address] [place] [address] Dr. Neisha MelgarUAL DIFF REQNONormalThe [facility] HospitalComment on above: Performed By: #### CBC #### [facility] [address] [place] [address] Dr. Neisha Campa (RBC) [Entitic mass]28.4 lsHtmmrl52.7-34.0The [facility] HospitalComment on above:Performed By: #### CBC #### [facility] [address] [address] [address] Neisha Campa (RBC) [Mass/Vol]35.3 g/dLCritically high29.9-35.2The [facility] HospitalComment on above:Performed By: #### CBC #### [facility] [address] [place] [address] Dr. Neisha Campa (RBC) [Entitic vol]80.3 fLCritically low81.0-99.0The [facility] HospitalComment on above:Performed By: #### CBC #### [facility] [address] [place] [address] Dr. Neisha Evans #0.5 103/ulNormal0.3-0.8The [facility] HospitalComment on above:Performed By: #### CBC #### [facility] [address] [address] [address] Neisha Plasenciaocytes/100 WBC (Bld)5.7 %Normal1.7-12.0[facility] Comment on above:Performed By: #### CBC #### [facility] [address] [place] [address] Dr. Neisha Santos #7.0 103/ulCritically high1.4-6.5The [facility] Comment on above:Performed By: #### CBC #### [facility] [address] [place] [address] Dr. Neisha Samuelutrophils/100 WBC (Bld)82.3 %Critically high43.0-75.0The [facility] HospitalComment on above:Performed By: #### CBC #### [facility] [address] [place] [address] Dr. Neisha Meilet mean volume (Bld) [Entitic vol]9.4 fLCritically low 9.5-13.5The [facility] HospitalComment on above:Performed By: #### CBC #### [facility] [address] [address] [address] Neisha AraizaPLT271 103/wkVdgpdw210-223Enk [facility] HospitalComment on above: Performed By: #### CBC #### [facility] [address] [address] [address] Neisha AraizaRBC5.39 106/ulNormal4.20-5.40The [facility] HospitalComment on above:Performed By: #### CBC #### [facility] [address] [address] [address] Neisha AraizaWBC8.5 103/ulNormal4.0-11.0The [facility] on above: Performed By: #### CBC #### [facility] [address] [address] [address] Neisha AraizaCT ABD/PELVIS WO CONon [id number] ABD/PELVIS WO CONEXAMINATION: CT ABD/PELVIS WO CON, [...] authenticated by: MATTHEW SILVER Date: 2021-12-10 14:48NormalThe [facility] HospitalCULTURE URINEon [id number] URINECulture Observations: GREATER THAN TWO ORGANISMS PRESENT. PLEASE RESUBMIT CLEAN CATCH MID-STREAM URINE IF CLINICALLY INDICATED.NormalThe [facility] HospitalComment on above:Performed By: #### ACETON #### [facility] [address] [place] [address] Dr. Neisha AraizaCovid-19 PCR ([facility])on 39-26-2521MEDV-CoV-2 (COVID-19) RNA TIM+probe Ql (Unsp spec)Not detectedNormalNOT DETECTEDThe [facility] Comment on above:Result Comment: When diagnostic [...] for this test is supported by the Global Climate Change Analyst of Health and Human Service's declaration that [...] used).Performed By: #### BASIA MCCANN, CMP #### [facility] [address] [place] [address] Dr. Neisha AraizaDRUG SCREEN RAPID (URINE)on [id number]O [facility] GeneralComment on above:Performed By: #### ACETON #### [facility] [address] [place] [address] Dr. Neisha AraizaBARNegativeNormalNEGATIVECleveland Clinic Akron GeneralComment on above: Performed By: #### ACETON #### [facility] [address] [place] [address] Dr. Neisha PachecoPNegativeNormalNEGATIVECleveland Clinic Akron GeneralComment on above: Performed By: #### ACETON #### [facility] [address] [place] [address] Dr. Neisha FriedmanZONegativeNormalNEGATIVECleveland Clinic Akron GeneralComment on above: Performed By: #### ACETON #### [facility] [address] [place] [address] Dr. Neisha AraizaCOCNegativeNormalNEGATIVECleveland Clinic Akron GeneralComment on above: Performed By: #### ACETON #### [facility] [address] [place] [address] Dr. Neisha MasonFostoria City HospitalComment on above: Result Comment: AMP (Amphetamine): 500ng/mL, BAR (Barbituates): 200 ng/mL, BZO (Benzodiazepines): 150 ng/mL, BUP (Buprenorphine): 10 ng/mL, VIVEK (Cocaine): 150 ng/mL, mAMP (Methamphetamine): 500 ng/mL, MTD (Methadone): 200 ng/mL, OPI (Opiates): 100 ng/mL, OXY (Oxycodone): 100 ng/mL, PCP (Phencyclidine): 25 ng/mL, PPX (Propoxyphene): 300 ng/mL, THC (Cannabinoids): 50 ng/mL, TCA (Trycyclic Antidepressants): 300 ng/mLPerformed By: #### ACETON #### [facility] [address] [place] [address] Dr. Neisha AraizaDRUG CUT HEADERDRUG CLASS TEST SYSTEM CUT-OFF CONCENTRATIONS ARE FOLLOWS:NormalThe [facility] HospitalComment on above:Performed By: #### ACETON #### [facility] [address] [place] [address] Dr. Neisha AraizamAMPNegativeNormalNEGATIVECleveland Clinic Akron GeneralComment on above: Performed By: #### ACETON #### [facility] [address] [place] [address] Dr. Neisha AraizaMTDNegativeNormalNEGATIVEMercy Hospitalment on above: Performed By: #### ACETON #### [facility] [address] [address] [address] Neisha AraizaOPINegativeNormalNEGATIVECleveland Clinic [facility] GeneralComascension [facility] on above: Performed By: #### ACETON #### [facility] [address] [address] [address] Neisha AraizaOXYNegativeNormalNEGATIVECleveland Clinic [facility] GeneralComasc[facility] on above: Performed By: #### ACETON #### [facility] [address] [address] [address] Neisha AraizaPCPNegativeNormalNEGATIVECleveland Clinic [facility] GeneralComasc[facility] on above: Performed By: #### ACETON #### [facility] [address] [place] [address] Dr. Neisha AraizaPPXNegativeNormalNEGATIVECleveland Clinic [facility] GeneralComasc[facility] on above: Performed By: #### ACETON #### [facility] [address] [place] [address] Dr. Neisha AraizaTCANegativeNormalNEGATIVECleveland Clinic [facility] GeneralComasc[facility] on above: Performed By: #### ACETON #### [facility] [address] [place] [address] Dr. Neisha AraizaTHCNegativeNormalNEGATIVEC[facility] Clinic [facility] on above: Performed By: #### ACETON #### [facility] [address] [place] [address] Dr. Neisha Hancock URINE PROFILEon 79-78-1867Pqvzizmyj Ql (U)NegativeNormal NEGATIVECleveland Clinic Akron GeneralComascension [facility] on above:Performed By: #### ERUR DRUGRPD #### [facility] [address] [place] [address] Dr. Neisha Lopez (U)CLEARNormalCLEARCleveland Clinic Akron GeneralComasc[facility] on above: Performed By: #### ERUR, DRUGRPD #### [facility] [address] [place] [address] Dr. Neisha Lin (U)YELLOWNormalYELLOWCleveland Clinic Akron GeneralComment on above: Performed By: #### ERUR, DRUGRPD #### [facility] [address] [address] [address] Neisha Evans micrscopic examination will be performed if indicated. NormalCleveland Clinic Akron GeneralComment on above:Performed By: #### ERUR, DRUGRPD #### [facility] [address] [address] [address] Neisha AraizaGlucose Ql (U)250 mg/dlAbnormalNEGATIVECleveland Clinic [facility] Comment on above:Performed By: #### ERUR, DRUGRPD #### [facility] [address] [place] [address] Dr. Neisha AraizaHemoglobin Ql (U)NegativeNormalNEGKettering Health Preble Comment on above:Performed By: #### ERUR, DRUGRPD #### [facility] [address] [place] [address] Dr. Neisha AraizaKetones Ql (U)15 mg/dlAbnormalNEGKettering Health Preble Comment on above:Performed By: #### ERUR, DRUGRPD #### [facility] [address] [address] [address] Neisha AraizaLEUKOCYTESNegativeNormalNEGKettering Health PrebleComment on above:Performed By: #### ERUR, DRUGRPD #### [facility] [address] [place] [address] Dr. Neisha AraizaNitrite Ql (U)NegativeNormalNEGATIVECleveland Clinic Akron GeneralComment on above:Performed By: #### ERUR, DRUGRPD #### [facility] [address] [address] [address] Neisha AraizapH (U)6.0 [pH]Normal5-9[facility] GeneralComment on above: Performed By: #### ERUR, DRUGRPD #### [facility] [address] [place] [address] Dr. Neisha AraizaSPEC GRAVITY1.071Dyvbyl9.005-<=1.025The [facility] HospitalComment on above:Performed By: #### ERUR, DRUGRPD #### [facility] [address] [place] [address] Dr. Neisha Waller PROTEINNegativeNormalNEGATIVE/ TRACEThe [facility] Comment on above:Performed By: #### URSULA DRUGRPD #### [facility] [address] [place] [address] Dr. Neisha Cox MICRO INDNOT INDICATEDMary Rutan HospitalComment on above:Performed By: #### URSULA DRUGRPD #### [facility] [address] [place] [address] Dr. Neisha Hannonbilinogen Qn (U)0.2 {Ankit'U}/dLNormal0.2 - 1.0The [facility] HospitalComment on above:Performed By: #### URSULA DRUGRPD #### [facility] [address] [place] [address] Dr. Neisha Bloom PYLORI ANTIBODY IGGon 12-10-2021H. PYLORI IGG ABS0.29 Index ValueNormal0.00-0.79The [facility] HospitalComascension [facility] on above:Result Comment: Negative <0.80 Equivocal 0.80 - 0.89 Positive >0.89Performed By: #### CBC #### [facility] [address] [place] [address] Dr. Neisha StacyNZA A AND B AGon 56-13-3265HFSFBTQTQTEVZ The [facility] HospitalComment on above:Result Comment: Negative for Flu A protein angiten. Infection due to Flu A cannot be ruled out. FluA angiten in the sample may be below the detection limit of the test.Performed By: #### CBC #### [facility] [address] [place] [address] Dr. Neisha AraizaINFLUBNEGHSEE The [facility] HospitalComment on above: Result Comment: Negative for Flu B protein antigen. Infection due to Flu B cannot be ruled out. FluB antigen in the sample may be below the detection limit of the test.Performed By: #### CBC #### [facility] [address] [place], [place] [id number] Dr. Neisha Olvera AGNegativeNormalNEGATIVE SEE COMMENTThe [facility] on above:Performed By: #### CBC #### [facility] [address] [address] [address] Neisha Marsh AGNegativeNormalNEGATIVE SEE COMMENTThe [facility] on above:Performed By: #### CBC #### [facility] [address] [address] [address] Neisha AraizaINTERNAL CONTROLSWithin Normal LimitsNormalWithin Normal Limits The [facility] on above:Performed By: #### CBC #### [facility] [address] [place] [address] Dr. Neisha LawCTATE/LACTIC ACIDon 78-99-5445Maoszvv [Moles/Vol]0.9 mmol/L Normal0.4-1.9The [facility] on above:Performed By: #### CBC #### [facility] [address] [place] [address] Dr. Neisha AraizaLactate [Moles/Vol]0.8 mmol/LNormal0.4-1.9The [facility] Comment on above:Performed By: #### CBC #### [facility] [address] [place] [address] Dr. Neisha AraizaLIPASEon 34-60-4027Apxxqb [Catalytic activity/Vol]146.0 U/LNormal 73.0-393.0The [facility] Hospitalment on above:Performed By: #### LIPA, BASIA, CMP #### [facility] [address] [address] [address] Neisha AraizaPOINT OF CARE GLUCOSEon 93-24-7364Xymzhtf [Mass/Vol]222 mg/dL Critically mzmz17-032Eas [facility] on above:Performed By: #### CBC #### [facility] [address] [place] [address] Dr. Neisha HernandezG HCG QUALon 65-92-1040AZHXZUHUZ, QUALNegativeNormalNEGATIVE The [facility] HospitalComment on above:Performed By: #### BASIA MCCANN, CMP #### [facility] [address] [address] [address] Neisha Malik 14(COMP METB)on 15-09-6220Mubqxht [Mass/Vol]3.7 g/dLNormal 3.4-5.0The [facility] HospitalComment on above:Performed By: #### LIPWade BASIA, CMP #### [facility] [address] [address] [address] Neisha AraizaAlbumin/Globulin [Mass ratio]0.9 {ratio}NormalThe [facility] HospitalComment on above:Performed By: #### BASIA MCCANN, CMP #### [facility] [address] [place] [address] Dr. Neisha Pettit [Catalytic activity/Vol]118 U/LCritically jiaf13-537Etf [facility] Hospitalment on above:Performed By: #### BASIA MCCANN, CMP #### [facility] [address] [place] [address] Dr. Neisha Seay [Catalytic activity/Vol]36 U/WAqzlkv96-83Tpu [facility] HospitalComment on above:Performed By: #### RAMY BASIA, CMP #### [facility] [address] [place] [address] Dr. Neisha Montalvo gap [Moles/Vol]17.8 mmol/LNormalThe [facility] Comment on above:Performed By: #### RAMY BASIA, CMP #### [facility] [address] [place] [address] Dr. Neisha AraizaAST [Catalytic activity/Vol]22 U/XOzzcan85-57Kjw [facility] on above:Performed By: #### LIPA, BASIA, CMP #### [facility] [address] [place] [address] Dr. Neisha AraizaBilirubin [Mass/Vol]0.9 mg/dLNormal0.2-1.0The [facility] Comment on above:Performed By: #### RAMY BASIA, CMP #### [facility] [address] [address] [address] Neisha AraizaCalcium [Mass/Vol]8.8 mg/dLNormal8.5-10.1The [facility] Comment on above:Performed By: #### BASIA MCCANN, CMP #### [facility] [address] [address] [address] Neisha AraizaChloride [Moles/Vol]99 mmol/DChgoku67-596Vdo [facility] Comment on above:Performed By: #### BASIA MCCANN, CMP #### [facility] [address] [address] [address] Neisha AraizaCO2 [Moles/Vol]19.6 mmol/LCritically low21.0-32.0The [facility] HospitalComment on above:Performed By: #### BASIA MCCANN, CMP #### [facility] [address] [address] [address] Neisha AraizaCreatinine [Mass/Vol]0.52 mg/dLCritically low0.55-1.02The [facility] HospitalComment on above:Performed By: #### BASIA MCCANN, CMP #### [facility] [address] [address] [address] Neisha PaigeGFR-AF CONGOLESE>60Normal>=60The [facility] HospitalComment on above:Performed By: #### BASIA MCCANN, CMP #### [facility] [address] [address] [address] Neisha PaigeGFR-NON AF CONGOLESE>60Normal>=60The [facility] HospitalComment on above:Performed By: #### BASIA MCCANN, CMP #### [facility] [address] [address] [address] Neisha AraizaGlobulin (S) [Mass/Vol]4.2 g/dLNormalThe [facility] HospitalComment on above:Performed By: #### LIPWade BASIA, CMP #### [facility] [address] [address] [address] Neisha AraizaGlucose [Mass/Vol]172 mg/dLCritically bwjm72-738Gwy [facility] HospitalComment on above:Performed By: #### BASIA MCCANN, CMP #### [facility] – [facility] [address] [place] [address] Dr. Neisha AraizaPotassium [Moles/Vol]3.4 mmol/LCritically low3.5-5.1The [facility] HospitalComment on above:Performed By: #### BASIA MCCANN, CMP #### [facility] [address] [place] [address] Dr. Neisha AraizaProtein [Mass/Vol]7.9 g/dLNormal6.4-8.2The [facility] Comment on above:Performed By: #### BASIA MCCANN, CMP #### [facility] [address] [place] [address] Dr. Neisha AraizaSodium [Moles/Vol]133 mmol/LCritically nrl294-039Fjx [facility] HospitalComment on above:Performed By: #### BASIA MCCANN, CMP #### [facility] [address] [place] [address] Dr. Neisha AraizaUrea nitrogen [Mass/Vol]11.0 mg/dLNormal7.0-18.0The [facility] HospitalComment on above:Performed By: #### BASIA MCCANN, CMP #### [facility] [address] [place] [address] Dr. Neisha AraizaUrea nitrogen/Creatinine [Mass ratio]21.2 mg/mgNoMemorial Health System Marietta Memorial HospitalComment on above:Performed By: #### BASIA MCCANN, CMP #### [facility] [address] [place] [address] Dr. Neisha Vora 23-70-8535UYY4.594 uIU/mLNormal0.358-3.740[facility] GeneralComment on above:Performed By: #### BASIA MCCANN, CMP #### [facility] [address] [place] [address] Dr. Neisha Barron RANGESEE BELOWNoMemorial Health System Marietta Memorial HospitalComment on above: Result Comment: <0.34 UIU/ml HYPERTHYROID 0.34-5.60 UIU/ml EUTHYROID >5.60 UIU/ml HYPOTHYROIDPerformed By: #### BASIA MCCANN, CMP #### [facility] [address] [place] [address] Dr. Neisha Price AUTO DIFFon [id number] #0.0 103/ulNormal0.0-0.1The [facility] HospitalComment on above:Performed By: #### LIPWade BASIA, CMP #### [facility] [address] [place] [address] Dr. Neisha AraizaBasophils/100 WBC (Bld)0.4 %Normal0.2-2.0[facility] Comment on above:Performed By: #### BASIA MCCANN, CMP #### [facility] [address] [place] [address] Dr. Neisha Mcconnell #0.0 103/ulNormal0.0-0.7The [facility] HospitalComment on above: Performed By: #### RAMY BASIA, CMP #### [facility] [address] [place] [address] Dr. Neisha Paigeosinophils/100 WBC (Bld)0.1 %Critically low0.9-7.0The [facility] HospitalComment on above:Performed By: #### BASIA MCCANN, CMP #### [facility] [address] [place] [address] Dr. Neisha Paigerythrocyte distribution width (RBC) [Ratio]12.8 %Mstycb64.0-15.0 The [facility] HospitalComment on above:Performed By: #### RAMY BASIA, CMP #### [facility] [address] [place] [address] Dr. Neisha AraizaHematocrit (Bld) [Volume fraction]41.1 %Ilwuaf24.0-48.0The [facility] HospitalComment on above:Performed By: #### LIPBASIA Olvera, CMP #### [facility] [address] [place] [address] Dr. Neisha AraizaHemoglobin (Bld) [Mass/Vol]13.8 g/hTRyyxbg21.0-16.0The [facility] HospitalComment on above:Performed By: #### BASIA MCCANN, CMP #### [facility] [address] [place] [address] Dr. Neisha Gould #0.05 10e3/ulCritically high0.00-0.03The [facility] Comment on above:Performed By: #### BASIA MCCANN, CMP #### [facility] [address] [place] [address] Dr. Neisha Gould %0.5 %Normal0.0-0.5The [facility] HospitalComment on above: Performed By: #### BASIA MCCANN, CMP #### [facility] [address] [place] [address] Dr. Neisha Sánchez #2.1 103/ulNormal1.2-3.8The [facility] HospitalComment on above:Performed By: #### BASIA MCCANN, CMP #### [facility] [address] [place] [address] Dr. Neisha Davishocytes/100 WBC (Bld)22.8 %Bcioai27.5-60.0The [facility] HospitalComment on above:Performed By: #### BASIA MCCANN, CMP #### [facility] [address] [place] [address] Dr. Neisha MelgarUAL DIFF REQNONormalThe [facility] HospitalComment on above: Performed By: #### BASIA CMCANN, CMP #### [facility] [address] [place] [address] Dr. Neisha Torres (RBC) [Entitic mass]28.3 moZpjvqs37.7-34.0The [facility] HospitalComment on above:Performed By: #### BASIA MCCANN, CMP #### [facility] [address] [place] [address] Dr. Neisha Campa (RBC) [Mass/Vol]33.6 g/iMVlckwe23.9-35.2The [facility] HospitalComment on above:Performed By: #### BASIA MCCANN, CMP #### [facility] [address] [place] [address] Dr. Neisha CampaV (RBC) [Entitic vol]84.4 lCWzknxe85.0-99.0The [facility] HospitalComment on above:Performed By: #### BASIA MCCANN, CMP #### [facility] [address] [place] [address] Dr. Neisha Evans #0.6 103/ulNormal0.3-0.8The [facility] HospitalComment on above:Performed By: #### RAMY BASIA, CMP #### [facility] [address] [place] [address] Dr. Neisha Plasenciaocytes/100 WBC (Bld)6.0 %Normal1.7-12.0The [facility] Comment on above:Performed By: #### BASIA MCCANN, CMP #### [facility] [address] [place] [address] Dr. Neisha Santos #6.4 103/ulNormal1.4-6.5The [facility] HospitalComment on above:Performed By: #### BASIA MCCANN, CMP #### [facility] [address] [place] [address] Dr. Neisha Freitasophils/100 WBC (Bld)70.2 %Sngzgi14.0-75.0The [facility] HospitalComment on above:Performed By: #### BASIA MCCANN, CMP #### [facility] [address] [place] [address] Dr. Neisha Meilet mean volume (Bld) [Entitic vol]9.8 fLNormal9.5-13.5The [facility] HospitalComment on above:Performed By: #### RAMY BASIA, CMP #### [facility] [address] [place] [address] Dr. Neisha GreenT258 103/jlRuwdki408-809Fcx [facility] HospitalComment on above: Performed By: #### LIPA BASIA, CMP #### [facility] [address] [place], [place] [id number] Dr. Neisha AraizaRBC4.87 106/ulNormal4.20-5.40The [facility] on above:Performed By: #### BASIA MCCANN, CMP #### [facility] [address] [place] [address] Dr. Neisha AraizaWBC9.1 103/ulNormal4.0-11.0The [facility] on above: Performed By: #### BASIA MCCANN, CMP #### [facility] [address] [place] [address] Dr. Neisha AraizaPOINT OF CARE GLUCOSEon 64-95-0638Gyhuycc [Mass/Vol]222 mg/dL Critically kcvw94-746Xno [facility] on above:Performed By: #### CBC #### [facility] [address] [place] [address] Dr. Neisha AraizaGlucose [Mass/Vol]225 mg/dLCritically qcbh54-812Rse [facility] on above:Performed By: #### CBC #### [facility] [address] [place] [address] Dr. Neisha AraizaPROF 14(COMP METB)on 31-60-2065Ohhaykr [Mass/Vol]3.1 g/dL Critically low3.4-5.0The [facility] on above:Performed By: #### CBC #### [facility] [address] [place] [address] Dr. Neisha AraizaAlbumin/Globulin [Mass ratio]0.9 {ratio}NormalThe [facility] on above:Performed By: #### CBC #### [facility] [address] [place] [address] Dr. Neisha Pettit [Catalytic activity/Vol]99 U/HLfcjoh38-765Pul [facility] on above:Performed By: #### CBC #### [facility] [address] [place] [address] Dr. Neisha Seay [Catalytic activity/Vol]28 U/OYadcwc62-09Evy [facility] on above:Performed By: #### CBC #### [facility] [address] [address] [address] Neisha Montalvo gap [Moles/Vol]15.0 mmol/LNormalThe [facility] Comment on above:Performed By: #### CBC #### [facility] [address] [address] [address] Neisha AraizaAST [Catalytic activity/Vol]12 U/LCritically bwo42-30Rnq [facility] HospitalComment on above:Performed By: #### CBC #### [facility] [address] [address] [address] Neisha AraizaBilirubin [Mass/Vol]1.3 mg/dLCritically high0.2-1.0The [facility] HospitalComment on above:Performed By: #### CBC #### [facility] [address] [address] [address] Neisha AraizaCalcium [Mass/Vol]7.5 mg/dLCritically low8.5-10.1The [facility] HospitalComment on above:Performed By: #### CBC #### [facility] [address] [address] [address] Neisha AraizaChloride [Moles/Vol]101 mmol/HRuesxk23-227Ecn [facility] Comment on above:Performed By: #### CBC #### [facility] [address] [address] [address] Neisha AraizaCO2 [Moles/Vol]14.9 mmol/LCritically low21.0-32.0The [facility] HospitalComment on above:Performed By: #### CBC #### [facility] [address] [address] [address] Neisha AraizaCreatinine [Mass/Vol]0.52 mg/dLCritically low0.55-1.02The [facility] HospitalComment on above:Performed By: #### CBC #### [facility] [address] [address] [address] Driver ChangEGFR-AF CONGOLESE>60Normal>=60The [facility] HospitalComment on above:Performed By: #### CBC #### [facility] [address] [address] [address] Neisha PaigeGFR-NON AF CONGOLESE>60Normal>=60The [facility] HospitalComment on above:Performed By: #### CBC #### [facility] [address] [address] [address] Neisha AraizaGlobulin (S) [Mass/Vol]3.6 g/dLNormalThOhioHealth Dublin Methodist HospitalComment on above:Performed By: #### CBC #### [facility] [address] [address] [address] Neisha AraizaGlucose [Mass/Vol]232 mg/dLCritically drdl13-589Pyk [facility] HospitalComment on above:Performed By: #### CBC #### [facility] [address] [address] [address] Neisha AraizaPotassium [Moles/Vol]3.9 mmol/LNormal3.5-5.1The [facility] Comment on above:Performed By: #### CBC #### [facility] [address] [address] [address] Neisha AraizaProtein [Mass/Vol]6.7 g/dLNormal6.4-8.2The [facility] Comment on above:Performed By: #### CBC #### [facility] [address] [address] [address] Neisha AraizaSodium [Moles/Vol]127 mmol/LCritically wvq176-349Ops [facility] HospitalComment on above:Performed By: #### CBC #### [facility] [address] [address] [address] Neisha AraizaUrea nitrogen [Mass/Vol]9.0 mg/dLNormal7.0-18.0The [facility] HospitalComment on above:Performed By: #### CBC #### [facility] [address] [address] [address] Neisha Monterroso nitrogen/Creatinine [Mass ratio]17.3 mg/mgNormalThe [facility] HospitalComment on above:Performed By: #### CBC #### [facility] [address] [address] [address] Neisha Waller RANDOM W/MICROSCOPICon 15-49-6920MCPKRRDOQWGU SEENNormalNONE SEENCleveland Clinic Akron GeneralComment on above:Performed By: #### UAMIC #### [facility] [address] [address] [address] Neisha AraizaBilirubin Ql (U)NegativeNormalNEGKettering Health Preble Comment on above:Performed By: #### UAMIC #### [facility] [address] [address] [address] Neisha AraizaCASTNONE SEENNormalNONE SEENCleveland Clinic Akron GeneralComment on above:Performed By: #### UAMIC #### [facility] [address] [address] [address] Neisha AraizaClarity (U)CLEARNormalCLEARCleveland Clinic Akron GeneralComment on above: Performed By: #### UAMIC #### [facility] [address] [address] [address] Neisha Clarkelor (U)LT. YELLOWNormalYProMedica Toledo HospitalComment on above:Performed By: #### UAMIC #### [facility] [address] [address] [address] Neisha AraizaCrystals LM Nom (Urine sed)NONE SEENNormalNONE SEENCleveland Clinic Akron GeneralComment on above:Performed By: #### UAMIC #### [facility] [address] [address] [address] Driver ChangEpithelial cells LM Ql (Urine sed)FEWAbnormalNONE SEEN /RARECleveland Clinic Akron GeneralComment on above:Performed By: #### UAMIC #### [facility] [address] [address] [address] Neisha AraizaGlucose Ql (U)500 mg/dlAbnoformerly mcdowell hospitalNEGKettering Health Preble Comment on above:Performed By: #### UAMIC #### [facility] [address] [address] [address] Neisha AraizaHemoglobin Ql (U)NegativeNormalNEGKettering Health Preble Comment on above:Performed By: #### UAMIC #### [facility] [address] [address] [address] Neisha Larson Ql (U)80 mg/dlAbnormalNEGATIVECleveland Clinic Akron General Comment on above:Performed By: #### UAMIC #### [facility] [address] [place] [address] Dr. Neisha AraizaLEUKOCYTESNegativeNormalNEGATIVEThe [facility] HospitalComment on above:Performed By: #### UAMIC #### [facility] [address] [place] [address] Dr. Neisha GaleanaCOUSNONTiffany SEENNormalNONE SEENCleveland Clinic Akron GeneralComment on above:Performed By: #### UAMIC #### [facility] [address] [place] [address] Dr. Neisha Browntrmarina Ql (U)NegativeNormalNEGATIVEThe [facility] HospitalComment on above:Performed By: #### UAMIC #### [facility] [address] [place] [address] Dr. Neisha AraizapH (U)6.0 [pH]Normal5-9The [facility] HospitalComment on above: Performed By: #### UAMIC #### [facility] [address] [place] [address] Dr. Neisha AraizaRBCNJESSENIA SEENAbnormal0-2The [facility] HospitalComment on above: Performed By: #### UAMIC #### [facility] [address] [place] [address] Dr. Neisha AraizaSPEC GRAVITY1.024Xikyhyer6.005-<=1.025The [facility] Comment on above:Performed By: #### UAMIC #### [facility] [address] [place] [address] Dr. Neisha Waller PROTEINTRACENormalNEGATIVE/ TRACEThe [facility] HospitalComment on above:Performed By: #### UAMIC #### [facility] [address] [place] [address] Dr. Neisha Hannonbilinogen Qn (U)0.2 {Ankit'U}/dLNormal0.2 - 1.0The [facility] Hospitalment on above:Performed By: #### UAMIC #### [facility] [address] [place] [address] Dr. Neisha AraizaWBC0-2AbnormalNONE SEENThe [facility] HospitalComment on above: Performed By: #### UAMIC #### [facility] [address] [place] [address] Dr. Neisha AraizaAMYLASEon [id number] [Catalytic activity/Vol]31 U/LNormal 25-115The [facility] on above:Performed By: #### BASIA MCCANN, CMP #### [facility] [address] [place] [address] Dr. Neisha Price AUTO DIFFon [id number] #0.0 103/ulNormal0.0-0.1The [facility] on above:Performed By: #### CBC #### [facility] [address] [place] [address] Dr. Neisha AraizaBasophils/100 WBC (Bld)0.4 %Normal0.2-2.0[facility] on above:Performed By: #### CBC #### [facility] [address] [place] [address] Dr. Neisha Mcconnell #0.0 103/ulNormal0.0-0.7The [facility] on above: Performed By: #### CBC #### [facility] [address] [place] [address] Dr. Neisha Paigeosinophils/100 WBC (Bld)0.0 %Critically low0.9-7.0The [facility] Hospitalment on above:Performed By: #### CBC #### [facility] [address] [place] [address] Dr. Neisha Paigerythrocyte distribution width (RBC) [Ratio]12.9 %Rmenuq26.0-15.0 The [facility] Hospitalment on above:Performed By: #### CBC #### [facility] [address] [address] [address] Neisha AraizaHematocrit (Bld) [Volume fraction]43.8 %Fshkyp45.0-48.0The [facility] HospitalComment on above:Performed By: #### CBC #### [facility] [address] [address] [address] Neisha AraizaHemoglobin (Bld) [Mass/Vol]14.7 g/oYRujdkr82.0-16.0The [facility] HospitalComment on above:Performed By: #### CBC #### [facility] [address] [place] [address] Dr. Neisha Gould #0.06 10e3/ulCritically high0.00-0.03The [facility] Comment on above:Performed By: #### CBC #### [facility] [address] [place] [address] Dr. Neisha Gould %0.6 %Critically high0.0-0.5The [facility] HospitalComment on above:Performed By: #### CBC #### [facility] [address] [place] [address] Dr. Neisha Sánchez #1.4 103/ulNormal1.2-3.8The [facility] HospitalComment on above:Performed By: #### CBC #### [facility] [address] [place] [address] Dr. Neisha Davishocytes/100 WBC (Bld)12.7 %Critically low20.5-60.0The [facility] HospitalComment on above:Performed By: #### CBC #### [facility] [address] [place] [address] Dr. Neisha MelgarUAL DIFF REQNONormalThe [facility] HospitalComment on above: Performed By: #### CBC #### [facility] [address] [place] [address] Dr. Neisha Torres (RBC) [Entitic mass]28.2 ooRksqbs45.7-34.0The [facility] HospitalComment on above:Performed By: #### CBC #### [facility] [address] [address] [address] Neisha CampaHC (RBC) [Mass/Vol]33.6 g/dWNceoya28.9-35.2The [facility] HospitalComment on above:Performed By: #### CBC #### [facility] [address] [address] [address] Neisha CampaV (RBC) [Entitic vol]84.1 cNPllgln03.0-99.0The [facility] HospitalComment on above:Performed By: #### CBC #### [facility] [address] [place] [address] Dr. Neisha Evans #0.5 103/ulNormal0.3-0.8The [facility] HospitalComment on above:Performed By: #### CBC #### [facility] [address] [place] [address] Dr. Neisha Plasenciaocytes/100 WBC (Bld)4.7 %Normal1.7-12.0[facility] Comment on above:Performed By: #### CBC #### [facility] [address] [place] [address] Dr. Neisha Santos #8.8 103/ulCritically high1.4-6.5The [facility] Comment on above:Performed By: #### CBC #### [facility] [address] [address] [address] Neisha Samuelutrophils/100 WBC (Bld)81.6 %Critically high43.0-75.0The [facility] HospitalComment on above:Performed By: #### CBC #### [facility] [address] [address] [address] Neisha Meilet mean volume (Bld) [Entitic vol]10.0 fLNormal9.5-13.5The [facility] HospitalComment on above:Performed By: #### CBC #### [facility] [address] [address] [address] Neisha AraizaPLT293 103/zmHaanaz146-426Sos [facility] Hospitalment on above: Performed By: #### CBC #### [facility] [address] [address] [address] Neisha AraizaRBC5.21 106/ulNormal4.20-5.40The [facility] on above:Performed By: #### CBC #### [facility] [address] [place] [address] Dr. Neisha AraizaWBC10.7 103/ulNormal4.0-11.0The [facility] Hospitalment on above:Performed By: #### CBC #### [facility] [address] [place] [address] Dr. Neisha AraizaCokush-19 PCR ([facility])on 31-27-9082DHQU-CoV-2 (COVID-19) RNA TIM+probe Ql (Unsp spec)Not detectedNormalNOT DETECTEDCleveland Clinic [facility] Comment on above:Result Comment: When diagnostic testing [...] for this test is supported by the Global Climate Change Analyst of Health and Human Service's declaration that [...] longer be used).Performed By: #### CBC #### [facility] [address] [place] [address] Dr. Neisha AraizaLACTATE/LACTIC ACIDon 39-85-8956Owanqbf [Moles/Vol]1.5 mmol/L Normal0.4-1.9The [facility] on above:Performed By: #### CBC #### [facility] [address] [address] [address] Neisha AraizaLIPASEon 93-08-6934Rdwugm [Catalytic activity/Vol]149.0 U/LNormal 73.0-393.0The [facility] HospitalComment on above:Performed By: #### BASIA MCCANN, CMP #### [facility] [address] [address] [address] Neisha AraizaPOINT OF CARE GLUCOSEon 00-92-8375Cvdgjpc [Mass/Vol]282 mg/dL Critically tjmq60-014Bcd [facility] HospitalComment on above:Performed By: #### ACETON #### [facility] [address] [place] [address] Dr. Neisha AraizaPROHilda 14(COMP METB)on 60-92-9808Rzbokvc [Mass/Vol]3.6 g/dLNormal 3.4-5.0The [facility] HospitalComment on above:Performed By: #### BASIA MCCANN, CMP #### [facility] [address] [place] [address] Dr. Neisha AraizaAlbumin/Globulin [Mass ratio]0.9 {ratio}NormalThe [facility] HospitalComment on above:Performed By: #### BASIA MCCANN, CMP #### [facility] [address] [place] [address] Dr. Neisha Pettit [Catalytic activity/Vol]105 U/KMfqlsd32-853Phn [facility] HospitalComment on above:Performed By: #### LIPWade BASIA, CMP #### [facility] [address] [place] [address] Dr. Neisha Seay [Catalytic activity/Vol]32 U/WWhrioh66-50Qfi [facility] Hospitalment on above:Performed By: #### LIPA BASIA, CMP #### [facility] [address] [place] [address] Dr. Neisha Montalvo gap [Moles/Vol]23.2 mmol/LNormalThe [facility] Comment on above:Performed By: #### LIPA BASIA, CMP #### [facility] [address] [address] [address] Neisha AraizaAST [Catalytic activity/Vol]15 U/NSvcjkm16-42Gdv [facility] on above:Performed By: #### BASIA MCCANN, CMP #### [facility] [address] [place] [address] Dr. Neisha AraizaBilirubin [Mass/Vol]1.3 mg/dLCritically high0.2-1.0The [facility] [facility] on above:Performed By: #### RAMY BASIA, CMP #### [facility] [address] [place] [address] Dr. Neisha AraizaCalcium [Mass/Vol]8.0 mg/dLCritically low8.5-10.1The [facility] on above:Performed By: #### BASIA MCCANN, CMP #### [facility] [address] [place] [address] Dr. Neisha AraizaChloride [Moles/Vol]96 mmol/LCritically mhu07-105Eni [facility] on above:Performed By: #### BASIA MCCANN, CMP #### [facility] [address] [place] [address] Dr. Neisha AraizaCO2 [Moles/Vol]14.8 mmol/LCritically low21.0-32.0The [facility] on above:Performed By: #### BASIA MCCANN, CMP #### [facility] [address] [place] [address] Dr. Neisha AraizaCreatinine [Mass/Vol]0.62 mg/dLNormal0.55-1.02The [facility] on above:Performed By: #### LIPWade BASIA, CMP #### [facility] [address] [place] [address] Dr. Neisha PaigeGFR-AF CONGOLESE>60Normal>=60The [facility] on above:Performed By: #### LIPBASIA Olvera, CMP #### [facility] [address] [place] [address] Dr. Neisha PaigeGFR-NON AF CONGOLESE>60Normal>=60The [facility] HospitalComment on above:Performed By: #### BASIA MCCANN, CMP #### [facility] [address] [address] [address] Neisha AraizaGlobulin (S) [Mass/Vol]4.2 g/dLNormSelect Medical Specialty Hospital - Boardman, IncComment on above:Performed By: #### BASIA MCCANN, CMP #### [facility] [address] [place] [address] Dr. Neisha AraizaGlucose [Mass/Vol]285 mg/dLCritically mmkh92-321Ygd [facility] HospitalComment on above:Performed By: #### BASIA MCCANN, CMP #### [facility] [address] [place] [address] Dr. Neisha AraizaPotassium [Moles/Vol]4.0 mmol/LNormal3.5-5.1The [facility] Comment on above:Performed By: #### BASIA MCACNN, CMP #### [facility] [address] [place] [address] Dr. Neisha AraizaProtein [Mass/Vol]7.8 g/dLNormal6.4-8.2The [facility] Comment on above:Performed By: #### BASIA MCCANN, CMP #### [facility] [address] [place] [address] Dr. Neisha AraizaSodium [Moles/Vol]130 mmol/LCritically skp177-665Mbg [facility] HospitalComment on above:Performed By: #### BASIA MCCANN, CMP #### [facility] [address] [place] [address] Dr. Neisha AraizaUrea nitrogen [Mass/Vol]12.0 mg/dLNormal7.0-18.0The [facility] HospitalComment on above:Performed By: #### BASIA MCCANN, CMP #### [facility] [address] [place] [address] Dr. Neisha Monterroso nitrogen/Creatinine [Mass ratio]19.4 mg/mgNoMemorial Health System Marietta Memorial HospitalComment on above:Performed By: #### BASIA MCCANN, CMP #### [facility] [address] [address] [address] Neisha AraizaAMYLASEon [id number] [Catalytic activity/Vol]20 U/L Critically ukk04-560Kxr [facility] HospitalComment on above:Performed By: #### ACETON #### [facility] [address] [place] [address] Dr. Neisha AraizaBILIRUBIN CONJUGATED (DIRECT)on [id number], CONJUGATED0.2 mg/dLNormal0.0-0.2The [facility] HospitalComment on above:Performed By: #### CBC #### [facility] [address] [place] [address] Dr. Neisha AraizaCBC AUTO DIFFon [id number] #0.0 103/ulNormal0.0-0.1The [facility] HospitalComment on above:Performed By: #### BASIA MCCANN, CMP #### [facility] [address] [place] [address] Dr. Neisha AraizaBasophils/100 WBC (Bld)0.3 %Normal0.2-2.0The [facility] Comment on above:Performed By: #### BASIA MCCANN, CMP #### [facility] [address] [place] [address] Dr. Neisha Mcconnell #0.0 103/ulNormal0.0-0.7The [facility] Hospitalment on above: Performed By: #### BASIA MCCANN, CMP #### [facility] [address] [address] [address] Neisha Paigeosinophils/100 WBC (Bld)0.0 %Critically low0.9-7.0The [facility] HospitalComment on above:Performed By: #### BASIA MCCANN, CMP #### [facility] [address] [place] [address] Dr. Neisha Paiegrythrocyte distribution width (RBC) [Ratio]12.7 %Pmgcfk67.0-15.0 The [facility] HospitalComment on above:Performed By: #### BASIA MCCANN, CMP #### [facility] [address] [place] [address] Dr. Neisha AraizaHematocrit (Bld) [Volume fraction]44.9 %Owmyly86.0-48.0The [facility] HospitalComment on above:Performed By: #### LIPWade BASIA, CMP #### [facility] [address] [place] [address] Dr. Neisha AraizaHemoglobin (Bld) [Mass/Vol]15.4 g/aFBeczta38.0-16.0The [facility] HospitalComment on above:Performed By: #### LIPA BASIA, CMP #### [facility] [address] [place] [address] Dr. Neisha Gould #0.03 10e3/ulNormal0.00-0.03The [facility] HospitalComment on above:Performed By: #### LIPA BASIA, CMP #### [facility] [address] [place] [address] Dr. Neisha Gould %0.3 %Normal0.0-0.5The [facility] HospitalComment on above: Performed By: #### RAMY BASIA, CMP #### [facility] [address] [place] [address] Dr. Neisha Sánchez #1.2 103/ulNormal1.2-3.8The [facility]Com[facility] on above:Performed By: #### LIPA BASIA, CMP #### [facility] [address] [place] [address] Dr. Neisha Davishocytes/100 WBC (Bld)12.2 %Critically low20.5-60.0The [facility] HospitalComment on above:Performed By: #### LIPA, BASIA, CMP #### [facility] [address] [place] [address] Dr. Neisha MelgarUAL DIFF REQNONormalThe [facility] HospitalComment on above: Performed By: #### LIPA, BASIA, CMP #### [facility] [address] [place] [address] Dr. Neisha Torres (RBC) [Entitic mass]28.3 xqBswzls24.7-34.0The [facility] HospitalComment on above:Performed By: #### BASIA MCCANN, CMP #### [facility] [address] [place] [address] Dr. Neisha Camap (RBC) [Mass/Vol]34.3 g/yVMatkmb67.9-35.2The [facility] HospitalComment on above:Performed By: #### LIPWade BASIA, CMP #### [facility] [address] [place] [address] Dr. Neisha Campa (RBC) [Entitic vol]82.5 aPSaqiuu01.0-99.0The [facility] HospitalComment on above:Performed By: #### BASIA MCCANN, CMP #### [facility] [address] [place] [address] Dr. Neisha Evans #0.3 103/ulNormal0.3-0.8The [facility] HospitalComment on above:Performed By: #### BASIA MCCANN, CMP #### [facility] [address] [place] [address] Dr. Neisha Plasenciaocytes/100 WBC (Bld)3.1 %Normal1.7-12.0The [facility] Comment on above:Performed By: #### BASIA MCCANN, CMP #### [facility] [address] [place] [address] Dr. Neisha Santos #8.1 103/ulCritically high1.4-6.5The [facility] Comment on above:Performed By: #### RAMY BASIA, CMP #### [facility] [address] [place] [address] Dr. Neisha Samuelutrophils/100 WBC (Bld)84.1 %Critically high43.0-75.0The [facility] HospitalComment on above:Performed By: #### LIPWade BASIA, CMP #### [facility] [address] [place] [address] Dr. Neisha Bryan mean volume (Bld) [Entitic vol]9.8 fLNormal9.5-13.5The [facility] HospitalComment on above:Performed By: #### BASIA MCCANN, CMP #### [facility] [address] [place] [address] Dr. Neisha AraizaPLT263 103/crDhobkf788-614Vpe [facility] HospitalComment on above: Performed By: #### LIPBASIA Olvera, CMP #### [facility] [address] [place] [address] Dr. Neisha AraizaRBC5.44 106/ulCritically high4.20-5.40The [facility] Comment on above:Performed By: #### BASIA MCCANN, CMP #### [facility] [address] [place] [address] Dr. Neisha AraizaWBC9.6 103/ulNormal4.0-11.0The [facility] HospitalComment on above: Performed By: #### BASIA MCCANN, CMP #### [facility] [address] [place] [address] Dr. Neisha AraizaLIPASEon [id number] [Catalytic activity/Vol]73.0 U/LNormal 73.0-393.0The [facility] HospitalComment on above:Performed By: #### ACETON #### [facility] [address] [place] [address] Dr. Neisha AraizaPROF 14(COMP METB)on [id number] [Mass/Vol]3.8 g/dLNormal 3.4-5.0The [facility] HospitalComment on above:Performed By: #### ACETON #### [facility] [address] [place] [address] Dr. Neisha AraizaAlbumin/Globulin [Mass ratio]0.9 {ratio}NormalThe [facility] HospitalComment on above:Performed By: #### ACETON #### [facility] [address] [place] [address] Dr. Neisha AraizaALP [Catalytic activity/Vol]120 U/LCritically ebvd54-848Cwb [facility] HospitalComment on above:Performed By: #### ACETON #### [facility] [address] [address] [address] Neisha Seay [Catalytic activity/Vol]34 U/NThgyhu57-85Odo [facility] Hospitalment on above:Performed By: #### ACETON #### [facility] [address] [address] [address] Neisha AraizaAnion gap [Moles/Vol]20.0 mmol/LNormalThe [facility] Comment on above:Performed By: #### ACETON #### [facility] [address] [address] [address] Neisha AraizaAST [Catalytic activity/Vol]18 U/RNkyuyg76-48Hwe [facility] HospitalComment on above:Performed By: #### ACETON #### [facility] [address] [place] [address] Dr. Neisha AraizaBilirubin [Mass/Vol]1.1 mg/dLCritically high0.2-1.0The [facility] HospitalComment on above:Performed By: #### ACETON #### [facility] [address] [place] [address] Dr. Neisha AraizaCalcium [Mass/Vol]8.5 mg/dLNormal8.5-10.1[facility] Comment on above:Performed By: #### ACETON #### [facility] [address] [place] [address] Dr. Neisha AraizaChloride [Moles/Vol]94 mmol/LCritically foj51-955Ams [facility] HospitalComment on above:Performed By: #### ACETON #### [facility] [address] [place] [address] Dr. Neisha AraizaCO2 [Moles/Vol]18.9 mmol/LCritically low21.0-32.0The [facility] on above:Performed By: #### ACETON #### [facility] [address] [place] [address] Dr. Neisha AraizaCreatinine [Mass/Vol]0.59 mg/dLNormal0.55-1.02The [facility] HospitalComment on above:Performed By: #### ACETON #### [facility] [address] [address] [address] Neisha PaigeGFR-AF CONGOLESE>60Normal>=60The [facility] HospitalComment on above:Performed By: #### ACETON #### [facility] [address] [address] [address] Neisha PaigeGFR-NON AF CONGOLESE>60Normal>=60The [facility] HospitalComment on above:Performed By: #### ACETON #### [facility] [address] [address] [address] Neisha AraizaGlobulin (S) [Mass/Vol]4.1 g/dLNormalThe [facility] HospitalComment on above:Performed By: #### ACETON #### [facility] [address] [address] [address] Neisha AraizaGlucose [Mass/Vol]322 mg/dLCritically qsvh54-796Msf [facility] HospitalComment on above:Performed By: #### ACETON #### [facility] [address] [address] [address] Neisha AraizaPotassium [Moles/Vol]3.9 mmol/LNormal3.5-5.1The [facility] Comment on above:Performed By: #### ACETON #### [facility] [address] [place] [address] Dr. Neisha AraizaProtein [Mass/Vol]7.9 g/dLNormal6.4-8.2The [facility] Comment on above:Performed By: #### ACETON #### [facility] [address] [address] [address] Neisha AraizaSodium [Moles/Vol]129 mmol/LCritically bde305-508Qbz [facility] HospitalComment on above:Performed By: #### ACETON #### [facility] [address] [address] [address] Neisha AraizaUrea nitrogen [Mass/Vol]12.0 mg/dLNormal7.0-18.0The [facility] HospitalComment on above:Performed By: #### ACETON #### [facility] [address] [place], [place] [address] Dr. Neisha AraizaUrea nitrogen/Creatinine [Mass ratio]20.3 mg/mgNoMemorial Health System Marietta Memorial HospitalComment on above:Performed By: #### ACETON #### [facility] [address] [address] [address] Neisha Araiza Vital Signs Date TimeVital SignValuePerforming MdyilkjhjOsbxsnkk38-36-5228 10:12-0400Body bvmkycwogze74.2 [degF]Yixue Marlow DDS Work Phone: [phone])[address] [place], [place] 6484809-23-2025 10:12-0400Diastolic blood oheewjqu88 mm[Hg]Yixue Marlow DDS Work Phone: 1(361)[address] [place], [place] 6484809-23-2025 10:12-0400Heart rate88 /minYixue Marlow DDS Work Phone: [phone])[address] [place], [place] 6484809-23-2025 10:12-0400Systolic blood mm[Hg]Yixue Marlow DDS Work Phone: [phone])[address] [place], [place] 6484808-19-2025 10:25-0400Body otfqgnncmhu14.81 [degF]Yixue Marlow DDS Work Phone: 1(171)[address] [place], [place] 6484808-19-2025 10:25-0400Diastolic blood jaqumvkw69 mm[Hg]Yixue Marlow DDS Work Phone: 1(868)[address] [place], [place] 648[address]8-19-2025 10:25-0400Heart rate82 /minYixue Marlow DDS Work Phone: [phone])[address] [place], [place] 6484808-19-2025 10:25-0400Systolic blood dsspylts450 mm[Hg]Yixue Marlow DDS Work Phone: [phone])[address] [place], [place] 6484808-04-2025 15:08-0400Body fphccbjonhg41.91 [degF]Yixue Marlow DDS Work Phone: 1(345)[address] [place], [place] 6484808-04-2025 15:08-0400Diastolic blood fgndjxwi71 mm[Hg]Yixue Marlow DDS Work Phone: 1(769)[address] [place], [place] 6484808-04-2025 15:08-0400Heart rate86 /minYixue Marlow DDS Work Phone: 1(524)[address] [place], [place] 6484808-04-2025 15:08-0400Systolic blood anzappqd313 mm[Hg]Yixue Marlow DDS Work Phone: 1(678)[address] [place], [place] 6484807-21-2025 14:10-0400Body pikfrz344.1 cmYixue Marlow DDS Work Phone: 1(029)[address] [place], [place] 6484807-21-2025 14:10-0400Body ijebqkkcvpe82.6 [degF]Yixue Marlow DDS Work Phone: 1(564)[address] [place], [place] 6484807-21-2025 14:10-0400Diastolic blood ngphkonm10 mm[Hg]Yixue Marlow DDS Work Phone: 1(190)[address] [place], [place] 6484807-21-2025 14:10-0400Heart boxa813 /minYixue Marlow DDS Work Phone: 1(099)[address] [place], [place] 6484807-21-2025 14:10-0400Systolic blood ezrpoijl538 mm[Hg]Yixue Marlow DDS Work Phone: 1(236)[address] [place], [place] 6484806-09-2025 15:08-0400Body mass index (BMI) [Ratio]31.42 kg/m2Basia BLOOM Work Phone: [facility] CenterGrtqmnwqtz09-06-4677 15:08-0400Body .47 kgBasia BLOOM Work Phone: [facility] CenterJnlskkzzgc13-33-3538 15:08-0400Diastolic blood uupogkyy88 mm[Hg]Basia BLOOM Work Phone: noSaint [facility] HospitalGukungqxan79-48-7466 15:08-0400Systolic blood tbxeibut137 mm[Hg]Basia BLOOM Work Phone: [facility] CenterSyvrsxmiwa90-00-3899 07:29-0500Body pfkjan207.1 cmAmy Love MD Work Phone: [facility]03-05-2025 07:29-0500Body mass index (BMI) [Ratio]28.62 kg/m2Amy Love MD Work Phone: [facility]03-05-2025 07:29-0500Body ywwhyilzxvb40.2 [degF]Amy Love MD Work Phone: [facility]03-05-2025 07:29-0500Body ilweaq21.02 kgAmy Love MD Work Phone: [facility]03-05-2025 07:29-0500Diastolic blood xarqdbqm86 mm[Hg]Amy Love MD Work Phone: [facility]03-05-2025 07:29-0500Heart udlv797 /minAmy Love MD Work Phone: [facility]03-05-2025 07:29-0500 Respiratory rate20 /minAmy Love MD Work Phone: [facility]03-05-2025 07:29-0381GiD3% (BldA) [Mass fraction]96 %Amy Love MD Work Phone: [facility]03-05-2025 07:29-0500Systolic blood zclcuvti919 mm[Hg]Amy Love MD Work Phone: [facility]01-27-2025 15:14-0500Diastolic blood xrymfseu91 mm[Hg]Sanchez Mancilla MD Work Phone: [facility]01-27-2025 15:14-0500Systolic blood pzmedpbd847 mm[Hg]Sanchez Mancilla MD Work Phone: [facility]01-27-2025 14:05-0500Body zkjfra728.1 cmSbrittany Mancilla MD Work Phone: [facility]01-27-2025 14:05-0500Body mass index (BMI) [Ratio]29.29 kg/m1TvtvdSanchez Mancilla MD Work Phone: [facility]01-27-2025 14:05-0500Body pcgowfbjpkh02.9 [degF]Sanchez Mancilla MD Work Phone: [facility]01-27-2025 14:05-0500Body tlhgei40.83 kgSanchez Mancilla MD Work Phone: [facility]01-27-2025 14:05-0500Heart nxmv574 /minSbrittany Mancilla MD Work Phone: [facility]01-27-2025 14:05-0500 Respiratory rate20 /minSbrittany Mancilla MD Work Phone: [facility]01-27-2025 14:05-4292IaH7% (BldA) [Mass fraction]99 %Sanchez Mancilla MD Work Phone: [facility]12-08-2024 08:36-0500Body yxrdhv494.1 cmAmisha Nguyen MD Work Phone: [facility]12-08-2024 08:36-0500Body mass index (BMI) [Ratio]3 kg/c9OhbjkyAmisha Nguyen MD Work Phone: [phone] [facility]12-08-2024 08:36-0500Body dtchwnlluyt72.6 [degF]Amisha Nguyen MD Work Phone: [phone] [facility]12-08-2024 08:36-0500Body weight8.16 kgAmisha Nguyen MD Work Phone: [phone] [facility]12-08-2024 08:36-0500Diastolic blood catvrnax76 mm[Hg]Amisha Nguyen MD Work Phone: [facility] CenterIphlpo88-84-9465 08:36-0500Heart aiiv705 /Chai Nguyen MD Work Phone: [facility] CenterOeetoc19-77-7393 08:36-0500 Respiratory rate16 /minAmisha Nguyen MD Work Phone: [facility]12-08-2024 08:36-4091HyJ3% (BldA) [Mass fraction]98 %Amisha Nguyen MD Work Phone: [facility]12-08-2024 08:36-0500Systolic blood nwmejhuj661 mm[Hg]Amisha Nguyen MD Work Phone: [facility]06-24-2023 18:06-0400Hourly RoundingMbanefo OJUKWU [address] [place], [place] 7034206-24-2023 18:06-0400 Promise to ReturnMbanefo OJUKWU [address] [place], [place] 7034206-24-2023 17:21-0400 Hourly RoundingMbanefo OJUKWU [address] [place], [place] 7034206-24-2023 17:21-0400 Promise to ReturnMbanefo OJUKWU [address] [place], [place] 7034206-24-2023 16:21-0400 Hourly RoundingMbanefo OJUKWU [address] [place], [place] 7034206-24-2023 16:21-0400 Promise to ReturnMbanefo OJUKWU [address] [place], [place] 7034206-24-2023 14:00-0400Blood Pressure LocationMbanefo OJUKWU [address]06-24-2023 11:45-0400Heart rate74 /minMbanefo OJUKWU [address] [place], [place] 0152406-24-2023 11:45-6421MiG7% (BldA) [Mass fraction]98 %Mbanefo OJUKWU [address] [place], [place] 0152406-24-2023 11:45-0400 Diastolic blood funixyas63 mm[Hg]Mbanefo OJUKWU [address] [place], [place] 0152406-24-2023 11:45-0400Mean blood snertndu112 mm[Hg]Mbanefo OJUKWU [address] [place], [place] 0152406-24-2023 11:45-0400 Systolic blood glnnbzah273 mm[Hg]Mbanefo OJUKWU [address] [place], [place] 0152406-24-2023 11:45-0400Body fcswgbbuwyx06.06 [degF]Mbanefo OJUKWU [address] [place], [place] 0152406-24-2023 08:47-0400gluc 192 mg/dLMbanefo OJUKWU [address] [place], [place] 0152406-24-2023 08:46-0400 Diastolic blood ewrrjzsa30 mm[Hg]Mbanefo OJUKWU [address] [place], [place] 0152406-24-2023 08:46-0400Heart rate88 /minMbanefo OJUKWU [address] [place], [place] 0152406-24-2023 08:46-0400 Systolic blood awoqmfxh525 mm[Hg]Mbanefo OJUKWU [address] [place], [place] 0152406-24-2023 08:03-0400Heart rate83 /minMbanefo OJUKWU [address] [place], [place] 0152406-24-2023 08:03-4031UyB8% (BldA) [Mass fraction]98 %Mbanefo OJUKWU [address] [place], [place] 0152406-24-2023 08:03-0400Mean blood ijckewbf963 mm[Hg]Mbanefo OJUKWU [address] [place], [place] 0152406-24-2023 08:02-0400Body liqncwhvgfh77.24 [degF]Mbanefo OJUKWU [address] [place], [place] 0152406-24-2023 01:40-0400Blood Pressure LocationMbanefo OJUKWU [address] [place], [place] 0152406-24-2023 01:40-0400Body bbtdrlofxoi06.06 [degF]Mbanefo OJUKWU [address] [place], [place] 0152406-24-2023 01:40-0400Heart rate91 /minMbanefo OJUKWU [address] [place], [place] 0152406-24-2023 01:40-0400Mean blood mm[Hg]Mbanefo OJUKWU [address] [place], [place] 0152406-24-2023 01:40-0400 Respiratory rate18 /minMbanefo OJUKWU [address] [place], [place] 0152406-24-2023 01:40-9063SuW8% (BldA) [Mass fraction]98 %Mbanefo OJUKWU [address] [place], [place] 0152406-23-2023 20:59-0400Heart rate94 /minMbanefo OJUKWU [address] [place], [place] 0152406-23-2023 19:00-0400Mean blood gnedgkpc509 mm[Hg]Mbanefo OJUKWU [address] [place], [place] 0152406-23-2023 15:33-0400 Respiratory rate18 /minMbanefo OJUKWU [address] [place], [place] 0152406-23-2023 15:32-0400Mean blood vogbzuez935 mm[Hg]Mbanefo OJUKWU [address] [place], [place] 0152406-23-2023 11:35-0400Heart rate67 /minMbanefo OJUKWU [address] [place], [place] 0152406-23-2023 08:40-0400gluc 215 mg/dLMbanefo OJUKWU [address] [place], [place] 0152406-23-2023 04:53-0400Mean blood hosqzkjc87 mm[Hg]Mbanefo OJUKWU [address] [place], [place] 0152406-22-2023 18:42-0400 Respiratory rate15 /minMbanefo OJUKWU [address] [place], [place] 0152406-22-2023 17:54-0400 Respiratory rate21 /minMbanefo OJUKWU [address] [place], [place] 0152406-22-2023 17:45-0400 Respiratory rate16 /minMbanefo OJUKWU [address] [place], [place] 0152406-22-2023 16:20-0400Heart rate87 /minMbanefo OJUKWU [address] [place] [address] Encounters Encounter DateEncounter TypeCare ProviderFacilityStart: 04-24-2025 End: 05-51-8225Jpfvclgxn identifierYixue Marlow DDS Work Phone: [facility] Systemtart: [id number] Han [facility]ENTERtart: 03-20-2025 End: 75-10-0345Zoaoibbzj identifierYixjayda Marlow DDS Work Phone: [facility] Dental ClinicStart: 03-05-2025 End: 20-49-9873Piichdfrs identifierYixue Kashmir CLAIRES Work Phone: [facility] Dental ClinicStart: 02-19-2025 End: 16-78-5243Rfhbscdfn identifierYixue Kashmir CLAIRES Work Phone: [facility] Dental ClinicStart: 01-08-2025 End: 97-51-0293Vvwczgl encounter procedureAmy Karly BLOOM Work Phone: [facility] Work Phone: Start: 01-08-2025 End: 31-16-4993Nxlelkkc preventive med est patient 40-64yrsAmy Karly BLOOM Work Phone: [facility] BCP OBComment on above:Yeast infection (Primary Dx); Well woman exam with routine gynecological exam; Acute vaginitisStart: 01-08-2025 End: 92-72-4621glcoobcsthRFH KARLYNot AvailableStart: 01-08-2025 End: 99-63-7157Ipdqqn flowsheetBasia BLOOM Work Phone: noms BCP OBStart: 01-08-2025 End: 05-19-9703Qnvvxw flowsheetBasia BLOOM Work Phone: noms BCP OBStart: 01-08-2025 End: 80-48-7716Wiizmibvx Result EncounterAmy Karly BLOOM Work Phone: noms External Department UnsolicitedStart: 01-08-2025 End: 88-72-5312Iuosfdnn Result EncounterCorey Harlan DO Work Phone: noms External Department UnsolicitedStart: 10-04-2024 End: 58-55-0469Fxmryrmfi department patient visitJoinge Love MD Work Phone: [facility] DepartmentComment on above: Viral illness (Primary Dx)Start: 08-28-2024 End: 47-41-6995Okatnzmyv department patient visitStadarcy Mancilla MD Work Phone: [facility] DepartmentComment on above: Blood glucose elevated (Primary Dx); Hyperglycemia due to diabetes mellitus (HCC); DehydrationStart: 07-09-2024 End: 90-25-9842Lwmuliizp department patient visitAmisha Nguyen MD Work Phone: [facility] DepartmentComment on above: Infective otitis externa of left ear (Primary Dx); Herpes zoster without complicationStart: 02-05-2023 End: 37-20-0925gjmeyitmpuMOQQZUGSelect Medical Specialty [facility] Start: 38-01-9717otakkhhafsMchcbsjb:93272Kxtfg: 02-64-9734ottnwmjbeu Facility:28769Ktpnh: 01-21-2023 End: 83-63-7364ajvwyqyeoiHkhj D. ChristoffersonFacility:[facility]ENTERtart: 01-21-2023 End: 34-08-7303RdsmpgyolagQgnnrup ANITHA [facility] Start: 12-12-2022 End: 77-74-7509Smddrjvlf department patient visitPako MetzgerFacility:[facility] Start: 06-15-2022 End: 31-08-3653yuyhvlftoyBV LELAND FAZIOFacility:O3Nvjix: 04-27-2022 End: 71-72-6238agkdndcdtoXIJGWM CRAMERFacility:S9Mhkop: 04-21-2022 End: 76-98-8776wtggltwqjfJI GENTRY HOYFacility:W4Caumt: 04-15-2022 End: 77-44-8036fkgmddsipqOC LELAND FAZIOFacility:C3Yauev: 01-04-2022 End: 11-63-3551xvqevjjapcGI GENTRY HOYFacility:Z7Dbbzf: 01-03-2022 End: 40-32-7592hdtofcxgnmHJNUGH RODRIGUEZFacility:E9Bkqyk: 12-10-2021 End: 78-91-1548nfelzxnvjgYE GENTRY HOYFacility:I5Causn: 12-08-2021 End: 23-69-3808uhmrwhlomlEL GENTRY LORENAFacility:G5Rmmmg: 12-07-2021 End: 42-97-5005jgnwvtfkpzWA BRI Beck SMITHFacility:H1 Procedures DateProcedureProcedure DetailPerforming ClinicianStart: 04-24-2025 End: 13-20-5769Txwjaiprsxzhp of current medicationsYixue Kashmir DDS Work Phone: Start: 04-24-2025 End: 59-70-4105jmnndvobrul counseling for control of dental diseaseYixue Marlow DDS Work Phone: Start: 04-24-2025 End: 99-89-7677Pdlc Op Visit DentalYixue Kashmir DDS Work Phone: Start: 03-20-2025 End: 09-93-3520Wdkpeimukycvq of current medicationsYixue Kashmir DDS Work Phone: Start: 03-20-2025 End: 41-56-0013kwcjoazlya, erupted tooth or exposed root (elevation and/or forceps removal)Yixue Kashmir DDS Work Phone: Start: 03-20-2025 End: 77-53-5553txqgblzoswv counseling for control of dental diseaseYixue Kashmir DDS Work Phone: Start: 03-05-2025 End: 83-45-1901Zyizzsyrztaqg of current medicationsYixue Kashmir DDS Work Phone: Start: 03-05-2025 End: 42-25-7511wxhqkwajlt, erupted tooth or exposed root (elevation and/or forceps removal)Yixue Kashmir DDS Work Phone: Start: 03-05-2025 End: 51-29-5431kvnhgusycrd counseling for control of dental diseaseYixue Kashmir DDS Work Phone: Start: 02-19-2025 End: 82-89-3187Nhgrwlcpmsdvk of current medicationsYixue Kashmir DDS Work Phone: Start: 02-19-2025 End: 18-75-7036mxnzuasnnn, erupted tooth or exposed root (elevation and/or forceps removal)Priscilla Marlow [employer] Work Phone: Start: 02-19-2025 End: 19-45-7474wgrxzvyjpr, erupted tooth requiring removal of bone and/or sectioning of tooth, and including elevation of mucoperiosteal flap if indicated Priscilla Marlow [employer] Work Phone: Start: 02-19-2025 End: 47-09-7980sgxc hygiene instructionsYixjayda Marlow [employer] Work Phone: Start: 18-83-9121IJXRXUURM VAGINITIS (HTRX)Leland Harlan Work Phone: Start: 42-91-6095RQB,APTIMA HPV,AGE GDLNAmy Karly BLOOM Work Phone: Start: 65-56-4979NYYMZ-19, RAPIDAmy Love MD Work Phone: Start: 44-68-9260Zxzktbkus influenzaAmy Love MD Work Phone: Start: 74-60-8090Ven routine ecg w/least 12 lds w/i&r Sanchez Mancilla MD Work Phone: Start: 08-28-2024 End: 23-34-1328Cjfx bld gluc mntr dev cleared fda spec home useStadarcy Mancilla MD Work Phone: Start: 99-58-4254LZEZML BLOOD GAS, POINT OF CAREStacy Wade Mancilla MD Work Phone: Start: 08-28-2024 End: 15-05-2010Xparwoddoahvr metabolic panelStadarcy Mancilla MD Work Phone: Percutaneous coronary interventionMbanefo OJUKWU Comment on above:stent to LCX Plan of Treatment DateCare ActivityDetailAuthorStart: 01-14-2026 End: 84-96-3075Wtwcdpf encounter ppxrmogfy25/15/2026 3:00 PM EDT Office Visit [facility] [address] [place] [id number] Leland Claros DO [address] [place] [address] NOMS BCP OBStart: 04-24-2025 End: 03-22-7204QlezSt. [facility] Work Phone: Start: 03-20-2025 End: 50-67-9784HwmmSt. [facility] Work Phone: Start: 03-05-2025 End: 17-99-0638AbxlSt. [facility] Work Phone: Start: 28-37-8992UozkSt. [facility] Work Phone: Start: 01-08-2025 End: 09-68-7675Imlzbyb encounter /09/2025 3:00 PM EDT Office Visit [facility] [address] [place] [id number] Basia Brandt PA [address] [place] [address] ArrivedNOMS BCP OBComment on above:ArrivedStart: 04-02-2024 COVID-19 Vaccine ( season)COVID-19 Vaccine ( season)[facility] 16-88-3830ZSYIN-19 Vaccine ( season)COVID- 19 Vaccine ( season)[facility]: 03-02-2024 Influenza vaccinationFlu vaccine (#1)[facility]: 1997 DTaP/Tdap/Td vaccine (1 - Tdap)DTaP/Tdap/Td vaccine (1 - Tdap)[facility] End: 59-42-9175Zxjev gas, venousBlood gas, venous Lab Routine One Time for 1 Occurrences starting 08/28/2024 until 08/28/2024on [employer] Mercy HealthComment on above:One Time for 1 Occurrences starting 08/28/2024 until 08/28/2024EKG 12 LeadEKG 12 Lead ECG STAT 08/28/2024 4:47 PM ESTBon [employer] [facility] Payers DatePayer CategoryPayerPolicy [id number] Health InsuranceC[facility] Member Subscriber Plan / Payer (Effective 2024- Present) Name: Escobar Ortega Magnus Relation to Subscriber: Self Name: Jordan Escobar Agudelo Payer ID: Not on file Group ID: [id number] Type: Not on file Address: [place] [id number] [id number] 2..1.770712.3.57[id number] 2..1.333477.3.57[id number] 2..1.311603.3.57[id number] 2..1.256806.3.57[id number] 2..1.599516.3.57[id number] 2..1.365141.3.57[id number] 2..1.098552.3.57[id number] 2.16.840.1.507902.3.57[id number] 2.16.840.1.627789.3.57[id number] 2.16.840.1.663172.3.57[id number] 2.16.840.1.348652.3.57[id number] 2.16.840.1.609419.3.57[id number] 2.16.840.1.356485.3.57[id number] 2..840.1.615749.3.57[id number] 2.16.840.1.545360.3.57[id number] 2..840.1.518503.3.57[id number] 2.16.840.1.062527.3.57[id number] 2.840.1.016410.3.57[id number] Social History DateTypeDetailFacilityStart: 12-59-7656EupftasSsdpr smokerMercy Health St. Rita'S Medical CenterComment on above:deniesTobacco smoking statusNo Smoking Status Entered [facility] Hospitaltart: 07-09-2024 End: 98-43-6013Fbg Assigned At BirthFemalUniversity Hospitals St. John Medical Centertart: 06-03-2023 End: 97-35-8363Taaqmzh smoking status NHISNever smoked tobaccoSentara Virginia Beach General HospitalStart: 06-03-2023 End: 30-63-8508Xesxzvw use and exposureSmokeless tobacco non-userJunito Meredith [facility] Hospitaljessica [facility] HealthStart: 07-09-2024 End: 34-81-7720Qtqcikwbe beverage intakeLifetime non-drinker (finding)Junito Meredith [facility] Hospitaljessica [facility] HealthStart: 66-78-8581Bjs assigned at birthFemaleBon Masoud [facility] Hospitaljessica [facility] HealthStart: 73-07-4855Ztgskm identityIdentifies as female gender (finding)Junito Meredith [facility] Hospitaljessica [facility] HealthStart: 07-09-2024 End: 36-76-8878Eedxiip of Social functionBon [facility] HealthHow often to you have a drink containing alcohol?NeverBon [facility] HospitalHow many standard drinks containing alcohol do you have on a typical day?Patient does not drinkBon Secours Health Systemjesica [facility] CenterStart: 06-03-2023 End: 56-71-1683Apvproewf beverage intakeCurrent drinker of alcohol (finding)[facility] HealthcareHow often to you have a drink containing alcohol?Monthly or lessNOMS HealthcareHow many standard drinks containing alcohol do you have on a typical day?1 or 2NOMS HealthcareStart: 19-55-1251Mlzdgve Commentcaffeine: 1-2 cups per dayVA HOSPITAL HealthcareStart: 98-00-5841Zgz assigned at birthNot on fileVA HOSPITAL HealthcareSexual OrientationStraight or heterosexualSt. [facility] Work Phone: NEGATED: Highlighted rowStart: NINFHistory of tobacco usePassive smokerSentara Virginia Beach General HospitalNEGATED: Highlighted rowStart: 02-19-2025 End: 39-39-1522Lvltype smoking status NHISUnknown if ever smokedSt. Anthony North Health CampusNEGATED: Highlighted rowStart: 36-49-9488Iqgnozw of tobacco useCurrent non-smokerSt. [facility] Medical Equipment Procedure CodeEquipment CodeEquipment Original TextEquipment IdentifierDatesPCI Unknown 01/22/23 Non Biological Left Circumflex Coronary ArteryFDAStart: 35-06-0899Rzwytqb on above:2.75 mm x 28 mm Xience Coronary stent to LAD Functional Status XlfgCrgllldstkKlxreaMvbmqahz71-62-8787Znjkcoajoc StatusDayton [facility] Center06-22-2023Functional [facility] Clinical Notes 01-05-2022 to 04-24-2025 Note Date & NxfsXhosHlqccwvp08-15-4028 History of Present illness Narrative* Encounter Date Complaint History Of Prese nt Illness POV [facility] Work Phone: 1(938) 677-494408-19-2025 History of Present illness Narrative* Encounter Date Complaint History Of Prese nt Illness ext [facility] Work Phone: 1(652) 320-258808-04-2025 History of Present illness Narrative* Encounter Date Complaint History Of Prese nt Illness ext [facility] Work Phone: 1(626) 835-700907-21-2025 History of Present illness Narrative* Encounter Date Complaint History Of Prese nt Illness extraction extraction 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 Exam conducted with a direct support worker present. Vitals: Estimated body mass index is [...] behalf of: MERLE Mendoza documented in this encounterMoberly Regional Medical CenterCfhicyjoul63-81-4381 Hospital Discharge instructions* Discharge Instructions* Sanchez Mancilla [...] through Care Everywhere. * Hyperglycemia: General Info (Colombian) documented in this encounterBon [facility]07-07-2023 NoteCardiology Clinic Note Chief Complaint: establish [...] Aspirin indefinitely -High intensi (more content not included)...[facility] 02-05-2023 NoteNew patient here to establish care. Ref from Dr. Carrillo for recent NSTEMI w/ PCI at [facility]. She wanted to see cardiology closer to home. She was started on Brilinta s/p PCI and is tolerating it well.[facility] 01-24-2023 NoteAdmission and Discharge Information Admitting [...] shoulder pain. She was subsequently admitted to [facility] with acute NSTEMI, elevated troponin, hypertensive urgency, right shoulder pain. She was treated with aspirin, Brilinta, Lipitor, nitroglycerin, Lovenox. She was also treated with lisinopril and Lopressor. She was seen in consultation by the case hardener and underwent echocardiogram that was essentially normal. [...] primary care physician as well as the case hardener accordingly. Physical Exam General: alert, no acute [...] 69.9 % Lymph Auto - 24.9 % [place] Auto - 4.6 % Eos Auto - 0.2 % Basophil Auto - 0.4 % Neutro Absolute - 7.4 E9/L Lymph Absolute - 2.6 E9/L [place] Absolute - 0.5 E9/L Eos Absolute - [...] - 255 mg/dL POC Device SN - [id number] POC User ID - [id number] POC Username - LESLY PARR CBC w/ [...] Protein - NEGATIVE1 UA (more content not included)...[facility]Comment on above: Result Comment: Electronically Signed By: Ellie OBANDO MD\.br\Date and Time Signed: 01/24/23 19:32 [id number] Evaluation + Plan noteExtracted from:Title: APSO NoteAuthor:Ellie [...] Lipitor, lisinopril, Lopressor. Treated with Lovenox. [facility]Day Moderate 35 Minutes 88686 2. Coronary artery disease (I25.10: Atherosclerotic heart disease of lummi coronary artery withoutangina pectoris) As seen on cardiac catheterization. Patient has coronary artery disease with mid left circumflex artery occlusion requiring 1 drug-eluting stent placement on 01/22/2023. Continue on aspirin, Brilinta, Lipitor, lisinopril and Lopressor. Ordered: Sbsq Hospital Care/Day Moderate 35 Minutes 94131 3. Chest pain (R07.9: Chest pain, unspecified) Secondary to above. Resolved. Ordered: Sbsq Hospital Care/Day Moderate 35 Minutes 30145 4. Elevated troponin (R77.8: Other specified abnormalities of plasma proteins) Secondary to above. Resolved. Ordered: Sbsq Hospital Care/Day Moderate 35 Minutes 42549 5. Hypertensive urgency (I16.0: Hypertensive urgency) Resolved. Continue on lisinopril and metoprolol. Or[facility]: [facility]/Day Moderate 35 Minutes 13429 6. Right shoulder pain (M25.511: Pain in right shoulder) Secondary to above #1. With atypical presentation. Ordered: [facility]/Day Moderate 35 Minutes 16521 7. Leukocytosis (D72.829: Elevated white blood cell [...] deep vein thrombosis (DVT) prophylaxis (Z79.899: Other decontamination worker (current) drug therapy) SCDs. Disposition: Home either today or in a.m. pending cardiology final recommendations. I discussed the diagnosis and plan of care with the patient at the bedside. Moderate level of MDM based on addressing above issues. This documentation was transcribed using voice recognition software. Several attempts were made to ensure accuracy. However inadvertent computerized gis professor errors may be present. Ellie Obando. Hospitalist. [...] Echo Transthoracic w/ Contrast HgbA1c Referral to [facility] Extracted from:Title:Procedure Note Heart & VascularAuthor:Kriss [...] deep vein thrombosis (DVT) prophylaxis (Z79.899: Other detention (current) drug therapy) Orders: ticagrelor, 180 mg [...] deep vein thrombosis (DVT) prophylaxis (Z79.899: Other decontamination worker (current) drug therapy) Orders: ticagrelor, 180 mg [...] morphine and oxygen. Cardiology consult pending. Ordered: [facility] Hospital Care/Day Moderate 35 Minutes 90289 2. Elevated troponin (R77.8: Other specified abnormalities of plasma proteins) Elevated troponin secondary to NSTEMI. Cardiology consult pending. Continue on aspirin, Lipitor, Lovenox. Echocardiogram pending. Ordered: [facility] Hospital Care/Day Moderate 35 Minutes 67801 3. NSTEMI (non-ST elevation myocardial infarction) (I21.4: Non-ST elevation (NSTEMI) myocardial infarction) Acute NSTEMI present on admission. Cardiology consult pending. Echocardiogram pending. Continue on aspirin, Lipitor, lisinopril, Lovenox. Ordered: [facility] Hospital Care/Day Moderate 35 Minutes 16408 4. Hypertensive urgency (I16.0: Hypertensive urgency) Resolved. Continue lisinopril. Ordered: [facility] Hospital Care/Day Moderate 35 Minutes 35456 5. Right shoulder pain (M25.511: Pain in right shoulder) Resolved. Ordered: [facility]/Day Moderate 35 Minutes 97891 6. Leukocytosis (D72.829: Elevated white blood cell [...] deep vein thrombosis (DVT) prophylaxis (Z79.899: Other detention (current) drug therapy) Lovenox. Disposition: Pending echocardiogram and cardiology consult. I discussed the diagnosis and plan of care with the patient at the bedside. Moderate level of MDM based on addressing above issues. This documentation was transcribed using voice recognition software. Several attempts were made to ensure accuracy. However inadvertent computerized gis professor errors may be present. Ellie Obando. Hospitalist. [...] Ordered: Initial Hospital Care/Day High 75 Minutes 35013 2. Elevated troponin (R77.8: Other specified abnormalities of plasma proteins) Elevated troponin mild. We will complete serial cardiac enzymes. Started patient on aspirin. If troponin trends up we will start patient on Lovenox or IV heparin. Check fasting lipid profile. Echocardiogram. Ordered: Initial Hospital Care/Day High 75 Minutes 04823 3. Hypertensive urgency (I16.0: Hypertensive urgency) Continue lisinopril. IV hydralazine as needed. Ordered: Initial Hospital Care/Day High 75 Minutes 59539 4. Right shoulder pain (M25.511: Pain in right shoulder) Musculoskeletal in origin. Started patient on as needed pain medications. Ordered: Initial Hospital Care/Day High 75 Minutes 23515 5. Leukocytosis (D72.829: Elevated white blood cell count, unspecified) Secondary to steroid effect. Ordered: Initial Hospital Care/Day High 75 Minutes 88796 6. Hyperglycemia (R73.9: Hyperglycemia, unspecified) Secondary to [...] deep vein thrombosis (DVT) prophylaxis (Z79.899: Other detention (current) drug therapy) Lovenox. Disposition: The patient [...] made to ensure accuracy. However inadvertent computerized gis professor errors may be present. Ellie Obando. Hospitalist. [...] deep vein thrombosis (DVT) prophylaxis (Z79.899: Other detention (current) drug therapy) Orders: nitroglycerin, 0.4 mg [...] ED Physician consult Hospitalist for continued care [facility]06-24-2023 Hospital Discharge instructions Patient Education 01/23/2023 09:22:37 CV - Cardiovascular PCI Discharge Instructions (CUSTOM) [place], [place] Cardiovascular PCI DISCHARGE INSTRUCTIONS Diet: Resume [...] hours post procedure: Actoplus MetGlucophageGlucophage XR GlucovanceAvandametFortamet Sqd-ewtbzalnqMkvxazGwgx-jstkceswb GlumetzaJanumetMetaglip RiometGlycomet Minimal pain, soreness and/or discomfort is expected. If you are prescribed an aspirin and/or antiplatelet (such as Plavix, Brilinta or Effient) do NOT stop taking these medications for any reason without talking to your case hardener Site Care: Do not remove dressing for [...] you are interested in smoking cessation, contact [facility] at [phone], ext. [phone]. In the event you are unable to reach your physician, please call [facility] at [phone] and the ethylene plant operator will assist you. Seek Medicare Care [...] Care 01/21/2023 16:19:43 With:Abhishek Monterroso Address: [address] [place] [address]- Business (1) When:2 weeks Comments:Call for followup appointment With:Gentry Carrillo Address: [facility] [place] [address]- Business (1) When:01/27/2023 09:30:[address] [facility]06-24-2023 NoteProcedure [facility] poss PCI via right radial Patient [...] deep vein thrombosis (DVT) prophylaxis (Z79.899: Other detention (current) drug therapy) Orders: ticagrelor, 180 mg = 2 tab(s), Tab, Oral, Once, Stop date 01/22/23 14:32:00 EDT, NOW, Start date 01/22/23 14:32:00 EDT, 01/22/23 14:32:00 EDT ticagrelor, Tab, Misc, Once, Stop date 01/22/23 14:32:48 EDT, Physician Stop, 01/22/23 14:32:48 EDT CV CardiovascularChillicothe HospitalComment on above:Result Comment: Electronically Signed By: Kriss HAIDER, Abhishek Hagan\.br\Date and Time Signed: 01/22/23 22:12 [id number] NoteEchocardiology Procedure Exam Date/Time Accession # Ordering Dr. Gonzalez Transthoracic w/ 01/22/2023 11:42 EDT [id number] Ellie OBANDO MD Contrast CPT code [id number] Reason for Exam (Echo Transthoracic w/ Contrast) Chest pain Report [facility] [address] [place] [address] Adult Echocardiogram Report Name: ESCOBAR ORTEGA Study Date: 01/22/2023 09:56 AM BP: 129/81 mmHg Patient Location: [address] [place] [address] HR: 89 : 1980 Gender: Female Height: 65 in Age: 43 yrs Ethnicity: [facility] Weight: 183 lb Reason For Study: Chest pain BSA: 1.9 m2 History: DM, HTN Ordering Physician: Ellie OBANDO Performed By: Rema Meléndez, [facility] Interpretation Summary Ejection Fraction [...] Signed by: Abhishek Monterroso MD Transcribed by: [facility] Technologist: [facility]06-22-2023 Note Chief Complaint pt states just seen for arm pain, given rx steroid. 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 History of Present Illness 43-year-old female noncigarette [...] Lymph Auto: 8.6 % Low (01/21/23 16:35:00) [place] Auto: 4.8 % (01/21/23 16:35:00) Eos Auto: 0.1 % (01/21/23 16:35:00) Basophil Auto: 0.3 % (01/21/23 16:35:00) Neutro Absolute: 12.3 E9/L High (01/21/23 16:35:00) Lymph Absolute: 1.2 E9/L (01/21/23 16:35:00) [place] Absolute: 0.7 E9/L (01/21/23 16:35:00) Eos Absolute: [...] Urobilinogen: 0.2 (01/21/23 17:53 (more content not included)...[facility]:Result Comment: Electronically Signed By: GAGE HAIDER, Ellie\.br\Date and Time Signed: 01/21/23 19:11 [id number] Note PROCEDURE: XR GI UPPER AIR KUB [...] Electronically authenticated by: MATTHEW SILVER Date: 2022-01-05 11:30[facility]06-06-2022 NotePROCEDURE: XR GI UPPER AIR KUB DUAL [...] Electronically authenticated by: MATTHEW SILVER Date: 2022-01-05 11:30[facility]06-06-2022 NotePROCEDURE: XR GI UPPER AIR KUB DUAL [...] authenticated by: MATTHEW SILVER Date: 2022-01-05 11:30[facility]* Clinical Note Date No Information [facility] Work Phone: Discharge summary* Clinical Note Date No Information [facility] Work Phone: Evaluation note* Diagnosis Infective otitis externa of left ear- Primary Herpes zoster without complication [facility] encounter [facility]* Diagnosis Blood glucose elevated- Primary Other abnormal glucose Hyperglycemia due to diabetes mellitus (HCC) Dehydration documented in this encounter [facility] HealthEvaluation note* Diagnosis Viral illness- Primary Unspecified viral infection, in conditions classified elsewhere and of unspecified site documented in this encounter [facility] HealthEvalutrinity health note* Diagnosis Yeast infection- Primary Well woman exam with routine gynecological exam Routine gynecological examination Acute vaginitis Unspecified vaginitis and vulvovaginitis documented in this encounter [facility] Type Assessment Date No Information [facility] Work Phone: History and physical note* Clinical Note Date No Information [facility] Work Phone: History of Past illness Narrative* Condition Effective Dates (start - stop) O utcome No Information [facility] Work Phone: Hospital course Narrative No data available for this section [facility] Discharge instructions* Attachments The following attachments cannot be sent through Care Everywhere. * Shingles (Colombian) * Otitis Externa (Colombian) documented in [facility]Children[facility] Dis[facility] instructions* Attachments The following attachments cannot be sent through Care Everywhere. * URI (Upper Respiratory Infection): Viral (Colombian) documented in this encounterSentara [facility] HospitalInstructions* Date Instruction Additional Infor mation No Information [facility] Work Phone: Progress note No data available for this section [facility] Clinical Note Date No Information [facility] Work Phone: Reason for referral (narrative)* Reason For Referral No Information [facility] Work Phone: Review of systems Narrative - Reported* System Pos/Neg Findings No Information [facility] Work Phone: Summary Purpose Family History Family [...] and content) DATE CREATED AUTHOR 06/22/2022 [facility] DATE CREATED AUTHOR AUTHOR'S ORGANIZ ATION 01/28/2023 [facility] DATE CREATED AUTHOR AUTHOR'S ORGANIZ ATION 03/15/2023 [facility] DATE CREATED AUTHOR AUTHOR'S ORGANIZ ATION 05/15/2023 [facility] DATE CREATED AUTHOR AUTHOR'S ORGANIZ ATION 10/05/2024 [facility] DATE CREATED AUTHOR AUTHOR'S ORGANIZ ATION 01/09/2025 [facility] DATE CREATED AUTHOR AUTHOR'S ORGANIZ ATION 04/25/2025 [facility] Patient Care team informatio n (unrecognized section and content) Team MemberRelationshipSpecialtyStart DateEnd Date Gentry Carrillo MD [address] [place] [address] PCP - GeneralFamily Zfutdrhk62/8/24Team MemberRelationshipSpecialtyStart DateEnd Date Gentry Carrillo MD [address] [place] [address] PCP - GeneralFamily Pxwlvxqo91/8/24Team MemberRelationshipSpecialtyStart DateEnd Date Gentry Carrillo MD [address] [place] [address] PCP - GeneralFamily Zucavcze89/8/24Team MemberRelationshipSpecialtyStart DateEnd Date Gentry Carrillo MD [address] [place] [address] PCP - GeneralFamily Medicine11/16/24Team MemberRelationshipSpecialtyStart DateEnd Date Gentry Carrillo MD [address] [place] [address] PCP - GeneralFamily Medicine11/16/24Team MemberRelationshipSpecialtyStart DateEnd Date Gentry Carrillo MD [address] [place] [address] PCP - GeneralFamily Medicine11/16/24 Name Effective Dates [...] (Stopped - Provider: Karolina Trujillo RN) Medication [id number]//[id number]/11/2024 acetaminophen (TYLENOL) tablet 1,000 mg (COMPLETED) 1,000 [...] BE BASED ON THE PRIMARY CLINICAL RECORDS. [employer] [facility]. provides no warranty or guarantee of the accuracy or completeness of information in this document.
--- OUTSIDE RECORDS SUMMARY | 2025-06-24 22:58 | XMS_ITS | Clinical Summary ---
Author Organization [employer] [facility] tem Address [id number] [address] [place] [address] Care Team Providers Care Reporting Consultant Name Role Phone Gentry Wolf MD Primary Care Provider +- Allergies Active AllergyReactionsCriticalityNoted EtmwHkiowptgKjubrzqsjwiCmqct49/25/2019 Medications MedicationSigDispense QuantityRefillsLast FilledStart DateEnd DateStatus labetalol (NORMODYNE) 200 mg tablet Take 300 mg by mouth 3 (three) times a day. Active aspirin 81 mg Take 81 mg by mouth daily.Active PNV 919-TLXF-NRFUGV 1-DSS-DHA ORAL Take 1 tablet by mouth Daily at 0700.Active blood-glucose meter misc Indications:Pre-existing type 2 diabetes mellitus in in first trimesterOne Touch Verio Flex Meter. Use to test blood sugars 4-5 times per day 1 each 05/29/2019Active lancets (ONETOUCH DELICA LANCETS) 33 gauge misc Indications:Pre-existing type 2 diabetes mellitus in in first sicuftpdd48 gauge Delica Lancets, use 1 lancet to [...] Active Problems ProblemNoted DateDiagnosed DateHistory of unexplained yexrhtdayw86/21/2019 Chronic hypertension complicating or reason for care during , first efncgjzud88/21/2019Type 2 diabetes mellitus complicating in first trimester, wdryvbeixy49/21/2019 Family History Medical HistoryRelationNameCommentsDiabetesFatherHyperlipidemiaFather HypertensionFatherHeart diseaseMaternal GrandfatherAlzheimer's diseaseMaternal GrandmotherDiabetesMaternal GrandmotherHypertensionMaternal GrandmotherCancer MotherHeart diseasePaternal GrandfatherCancerPaternal GrandmotherHypertension Paternal GrandmotherRelationNameStatusCommentsFatherAliveMaternal Grandfather DeceasedMaternal GrandmotherDeceasedMotherDeceasedPaternal GrandfatherDeceased Paternal GrandmotherDeceased Social History Tobacco UseTypesPacks/DayYears UsedDateSmoking Tobacco: NeverSmokeless Tobacco: NeverChildcareAnswerDate IxozenriAalogrkpmXihiwti16/21/2019EmploymentAnswerDate PdbrczmqNanjqnsxgkHrucacv16/21/2019Purpose - LifeAnswerDate RecordedPurpose and direction in umufPbltkcl34/22/2021CommentsNoSex and Gender Information ValueDate RecordedSex Assigned at BirthNot on fileLegal ChvHrajvb19/21/2019 11:32 AM EDTGender IdentityNot on fileSexual OrientationNot on file Last Filed Vital Signs Vital SignReadingTime TakenCommentsBlood Gdolpjhj457/7310/03/2019 1:31 PM EST Qulqx866510/03/2019 1:31 PM ESTTemperature--Respiratory Rate--Oxygen Saturation-- Inhaled Oxygen Concentration--Rstrtw395 kg (222 lb 10.6 oz)10/03/2019 1:31 PM SSVAbkhru785.6 cm (5' 4 )10/03/2019 1:31 PM ESTBody Mass Index38.22010/03/2019 1:31 PM EST Plan of Treatment Health MaintenanceDue DateLast DoneCommentsDiabetic Ophthalmology Exam1978 Statin Use: Eldneqby1978Depression Hokqpewwq71/21/1990Tobacco Screening 1990Adult BMI Zunnkpgbd08/21/1996Diabetic Foot Exam01/21/1996DTaP,Tdap and Td Vaccines (1 - Tdap)1997Pap Smear1999Influenza Ojtencx6404/02/2025 Medical Devices Not on file Insurance Care Teams Team MemberRelationshipSpecialtyStart Gentry Wolf MD PCP - GeneralFamily Eeluzttj86/21/19
--- OUTSIDE RECORDS SUMMARY | 2025-06-24 22:58 | XMS_ITS | Clinical Summary ---
Author Organization [facility] Address [address] [place] [address] Care Team Providers Care Card Fixer Name Role Phone Gentry Wolf MD Primary Care Provider [phone] Allergies Active AllergyReactionsCriticalityNoted DateCommentsPenicillinsHives,Other 05/26/2019 Medications MedicationSigDispense QuantityRefillsLast FilledStart DateEnd DateStatus aspirin 81 mg EC tablet Take 81 mg by mouth in the morning.01/23/2023ctive cetirizine (ZyrTEC) 10 mg tablet Take 10 mg by mouth in the morning.10/19/2022ctive citalopram (CeleXA) 20 mg tablet Take 20 mg by mouth in the morning.10/19/2022ctive Lantus Solostar U-100 Insulin 100 unit/mL (3 mL) pen INJECT 20 UNITS SUBCUTANEOUSLY EVERY NIGHT10/19/2022ctive insulin glargine (Basaglar KwikPen U-100 Insulin) 100 unit/mL (3 mL) pen Inject 20 units Subcutaneous every eveningActive metFORMIN (Glucophage) 500 mg tablet Take 500 mg by mouth in the morning and at bedtime.10/19/2022ctive metoclopramide (Reglan) 10 mg tablet 1 tablet before meals Orally four times dailyActive nitroglycerin (Nitrostat) 0.[address] 1 tablet under the tongue if needed every 5 minutes for chapincito... (REFER TO PRESCRIPTION NOTES).01/23/2023ctive Brilinta 90 mg tablet Take 90 mg by mouth in the morning and at bedtime.01/25/2023ctive NovoLOG U-100 Insulin aspart 100 unit/mL injection vial Inject Injection 5 units for every 50 over 150- max dose 60U per day; Duration: 50 daysActive lisinopril 20 mg tablet Indications:Primary hypertensionTake 1 tablet (20 mg) by mouth in the morning. 90 tablet tive metoprolol tartrate (Lopressor) 25 mg tablet Indications:Coronary artery disease involving [place] coronary artery of [place] heart with other form of angina pectoris,Primary hypertensionTake 1 tablet (25 mg) by mouth in the morning and at bedtime. 180 tablet tive ezetimibe (Zetia) 10 mg tablet Indications:Coronary artery disease involving [place] coronary artery of [place] heart with other form of angina pectorisTake 1 tablet (10 mg) by mouth in the morning. 90 tablet ctive isosorbide mononitrate ER (Imdur) 60 mg 24 hr tablet Indications:Coronary artery disease involving [place] coronary artery of [place] heart with other form of angina pectorisTake 1 tablet (60 mg) by mouth in the morning. Do not crush or chew. 90 tablet ctive atorvastatin (Lipitor) 80 mg tablet Indications:Coronary artery disease involving [place] coronary artery of [place] heart with other form of angina pectoris,Mixed hyperlipidemiaTake 1 tablet (80 mg) by mouth at bedtime. 90 tablet ctive atorvastatin (Lipitor) 80 mg tablet Take 80 mg by mouth at bedtime.Discontinued(Reorder) glimepiride (Amaryl) 4 mg tablet Take 4 mg by mouth in the morning.Discontinued lisinopril 20 mg tablet Take 20 mg by mouth in the morning.Discontinued(Reorder) metoprolol tartrate (Lopressor) 25 mg tablet Take 25 mg by mouth in the morning and at bedtime. Discontinued(Reorder) Active Problems ProblemNoted DateDiagnosed DateAcute rykgmxsde77/21/2025hest pain06/22/2025 Chronic ulcer of right heel06/22/2025Diabetes krsparoo89/21/2025Diabetic foot 06/22/2025History of rxpxrah1206/22/2025History of cholecystectomy 06/22/20255953Scymkfqvankc72/21/2025Nasal cblyertufl00/21/2025Non-healing surgical wound06/22/20250413Vndflxk74/21/2025Otitis sxrpmet56/21/6529Cautzjub49/21/2025 Shoulder pain06/22/2025Type 2 diabetes mellitus with foot ulcer06/22/2025ute myocardial owpwrtilrz13hronic hypertension complicating or reason for care during , first tsnhpgcpw86History of unexplained mueihfhlgy09Type 2 diabetes mellitus complicating in first trimester, wgbnwjtaaa57 Encounters DateTypeDepartmentCare AoysLymmimaqfwk68/21/2025 11:00 AM ESTOffice Visit [address] [address] Kenny Baird MD Coronary artery disease involving [place] coronary artery of [place] heart with other form of angina pectoris (Primary Dx); Cardiovascular stress test abnormal; Primary hypertension; Mixed qjqskkgpqkpikq95/18/2025Orders Only [address] [address] ProviderAime MD 05/14/2025Orders Only [address] [address] MervatCait MA Other chest pain (Primary Dx)from Last 3 Months Family History Medical HistoryRelationNameCommentsCoronary artery diseaseFatherDiabetesFather Kidney diseaseFatherRelationNameStatusCommentsFatherDeceased Social History Tobacco UseTypesPacks/DayYears UsedDateSmoking Tobacco: NeverSmokeless Tobacco: Never Tobacco Cessation:Counseling Given: Not Answered Alcohol UseStandard Drinks/WeekCommentsYes0 (1 standard drink = 0.6 oz pure alcohol)sociallyUT Safety & EnvironmentAnswerDate RecordedFear of Current or Ex-PartnerNot on file02/23/2024Emotionally AbusedNot on file09/24/2023hysically AbusedNot on file09/24/2023Sexually AbusedNot on file09/24/2023hysically or Sexually AbusedNot on file09/24/2023CommentsUnknownSex and Gender InformationValueDate RecordedSex Assigned at RfhosFxelzr92/07/2025 9:49 AM EST Legal EhvRoablh65/06/2023 10:00 AM EDTGender QplufyiqSkkmng89/07/2025 9:49 AM ESTSexual OrientationHeterosexual or Yppbogat65/07/2025 9:49 AM EST Last Filed Vital Signs Vital SignReadingTime TakenCommentsBlood Vbzmjcen526/9006/22/2025 12:09 PM EST Hxwck050506/22/2025 12:09 PM ESTTemperature--Respiratory Rate--Oxygen Saturation 98%06/22/2025 12:09 PM ESTInhaled Oxygen Concentration--Snphnc41.6 kg (171 lb) 06/22/2025 12:09 PM UQEObuqyh930.1 cm (5' 5 )06/22/2025 12:09 PM ESTBody Mass Index28.4606/22/2025 12:09 PM EST Plan of Treatment NamePriorityAssociated DiagnosesDate/TimeCORONARY ANGIOGRAPHY Coronary artery disease involving [place] coronary artery of [place] heart with other form of angina pectoris Cardiovascular stress test abnormal Health MaintenanceDue DateLast DoneCommentsCT Kwcuyicgkqxq1978Colonoscopy 1978Colorectal Cancer Emuogjwiu1978Diabetes: Hemoglobin A1C 1978FIT-DNA1978FIT1978FOBT1978 8550Ggwxgcschejdo1978 Diabetes: Retinopathy Tlevyasac01/21/1988Depression Eeyipjbsp64/21/1990Diabetes: Urine Protein Mwnftvzhu78/21/1997Hepatitis B Vaccines (1 of 3 - 19+ 3-dose series)1997Adult Duksuzh3701/21/2000HPV/Abofot3701/21/20082367Udvdpfnro20/21/2018 COVID-19 Vaccine (2 - 2025-26 season)505/ervical Cancer Yauoepqal41/09/2028Pap Smear8001/08/2025Zoster Vaccines (1 of 2) 01/21/2028Influenza OeaqyzpZlrpefeyr83/12/2025Pneumococcal Vaccine: Pediatrics (0 to 5 Years) and At-Risk Patients (6 to 64 Years)Zjqywnpfy30/12/2025HIB VaccinesAged OutNo longer eligible based on patient's [...] on patient's age to complete this topic Procedures Procedure NamePriorityDate/TimeAssociated DiagnosisCommentsLEXISCAN STRESS MYOCARDIAL PERFUSION ZVFGPKNKnellko98/17/2025 9:09 AM ESTfrom Last 3 Months Results * Lexiscan Stress Myocardial Perfusion Imaging (06/18/2025 9:09 AM EST) Anatomical RegionLateralityModalityOther Narrative Authorizing ProviderResult TypeResult StatusHistorical Provider MDCV STRESS PROCEDURESFinal Result from Last 3 Months Insurance * Guarantor: Renu Ortega TypeRelation to PatientDate of BirthPhone Billing AddressPersonal/XahklkCokj1980 [address] [place] [address] Care Teams Team MemberRelationshipSpecialtyStart DateEnd Date Gentry Wolf MD [address] [facility] [address] [address] [facility]02/04/23
--- OUTSIDE RECORDS SUMMARY | 2025-06-24 22:58 | XMS_ITS | Clinical Summary ---
Author Organization [facility] Address [address], [address] [place] [address] Care Team Providers Care Farm Contractor Name Role Phone Gentry Wolf MD Primary Care Provider [phone] Allergies Active AllergyReactionsCriticalityNoted XnsaVmcfilpiLieqvehboys11/08/2024 Medications MedicationSigDispense QuantityRefillsLast FilledStart DateEnd DateStatus aspirin [...] Source: IP Abuse ScreeningAnswerDate RecordedPhysical abuseDenies 07/09/2024Verbal siuhfEbvcln62/08/2024Emotional paqhgFubpmx45/08/2024Financial ewehkIdfhhb70/08/2024Sexual nrcegXlofps93/08/2024CommentsNoSex and Gender InformationValueDate RecordedSex Assigned at PgizxFmenxr64/08/2024 8:34 AM ESTLegal QljEwkinp30/08/2024 8:28 AM ESTGender MtukzprkRkthqa74/08/2024 8:34 AM ESTSexual OrientationNot on file Last Filed Vital Signs Vital SignReadingTime TakenCommentsBlood Cjcogfbt295/9210/04/2024 7:29 AM EST Sutbm96141/05/2025 7:29 AM AWKItsmvdctuhw51.8 ??C (98.2 ??F)10/04/2024 7:29 AM ESTRespiratory Onmv565310/04/2024 7:29 AM ESTOxygen Uftvagklpq54%10/04/2024 7:29 AM ESTInhaled Oxygen Concentration--Xxviva14 kg (172 lb)10/04/2024 7:29 AM EST Xikghw348.1 cm (5' 5 )10/04/2024 7:29 AM ESTBody Mass Index28.62010/04/2024 7:29 AM EST Plan of Treatment Health MaintenanceDue DateLast DoneCommentsDTaP/Tdap/Td vaccine (1 - Tdap) 1997Flu vaccine (#1)5COVID-19 Vaccine ( - 2023- season) 2025Polio vaccineAged OutNo longer eligible based on patient's age to complete this topic Insurance Care Teams Team MemberRelationshipSpecialtyStart DateEnd Gentry Wolf MD [address] [place] [address] PCP - GeneralFamily Geegnmlc50/8/24
--- OUTSIDE RECORDS SUMMARY | 2025-06-24 22:58 | XMS_ITS | Encounter Summary ---
Author Organization [facility] Address [address] [place] [address] Care Team Providers Care Stabilizing Machine Operator Name Role Phone Gentry Wolf MD Primary Care Provider [phone] Encounter Details DateTypeDepartmentCare Team (Latest Contact Info)Cxcomzcxfas22/18/2025Orders Only [facility] [address] [place] [address] Provider, MD Aime [address] [place] [address] Social History Tobacco UseTypesPacks/DayYears UsedDateSmoking Tobacco: NeverSmokeless Tobacco: NeverAlcohol UseStandard Drinks/WeekCommentsYes0 (1 standard drink = 0.6 oz pure alcohol)sociallyUT Safety & EnvironmentAnswerDate RecordedFear of Current or Ex-PartnerNot on file09/24/2023Emotionally AbusedNot on file09/24/2023hysically AbusedNot on file09/24/2023Sexually AbusedNot on file09/24/2023hysically or Sexually AbusedNot on file09/24/2023CommentsUnknownSex and Gender InformationValueDate RecordedSex Assigned at LszfgYpztve68/07/2025 9:49 AM EST Legal HxlXkalmg79/06/2023 10:00 AM EDTGender PdmowmmtOrzlqn19/07/2025 9:49 AM ESTSexual OrientationHeterosexual or Mlhbxjgk95/07/2025 9:49 AM ESTdocumented as of this encounter Plan of Treatment NamePriorityAssociated DiagnosesDate/TimeCORONARY ANGIOGRAPHY Coronary artery disease involving [place] coronary artery of [place] heart with other form of angina pectoris Cardiovascular stress test abnormal documented as of this encounter Procedures Procedure NamePriorityDate/TimeAssociated DiagnosisCommentsLEXISCAN STRESS MYOCARDIAL PERFUSION CMWPTCFQwtnfri81/17/2025 9:09 AM ESTdocumented in this encounter Results * Lexiscan Stress Myocardial Perfusion Imaging (06/18/2025 9:09 AM EST) Anatomical RegionLateralityModalityOther Narrative Authorizing ProviderResult TypeResult StatusHistorical Provider MDCV STRESS PROCEDURESFinal Result documented in this encounter Visit Diagnoses Not on filedocumented in this encounter Care Teams Team MemberRelationshipSpecialtyStart DateEnd Date Gentry Wolf MD [facility] [facility] [place] [place] [address] PCP - General02/04/23documented as of this encounter
--- OUTSIDE RECORDS SUMMARY | 2025-06-24 22:58 | XMS_ITS | Clinical Summary ---
Author Organization [facility] Address [address] [place] [address] Care Team Providers Care Trust Administrative Assistant Name Role Phone Gentry Wolf MD Primary Care Provider [phone] Allergies Active AllergyReactionsCriticalityNoted DateCommentsPenicillinsRash,Hives, IuarrggNnd18/25/2019 Other Reaction(s): Other Medications No known medications [...] InformationValueDate RecordedSex Assigned at BirthNot on fileLegal ZhbCflphp06/15/2023 7:17 PM EDTGender Identity Not on fileSexual OrientationNot on file Last Filed Vital Signs Vital SignReadingTime TakenCommentsBlood Qxnmzwhd044/76001/08/2025 3:08 PM EDT Pulse--Temperature--Respiratory Rate--Oxygen Saturation--Inhaled Oxygen Concentration--Pmzheq34.5 kg (177 lb 6.4 oz)01/08/2025 3:08 PM BHWIcxiez925 cm (5' 3 )06/15/2022 12:00 PM ESTBody Mass Index31.42108/15/2021 12:00 PM EST Plan of Treatment DateTypeDepartmentCare Team (Latest Contact Info)Vzeqegpftmn28/15/2026 3:00 PM EDTOffice Visit [facility] [address] [place] [address] Leland Claros DO [address] [place] [address] Insurance Care Teams Team MemberRelationshipSpecialtyStart DateEnd Gentry Wolf MD [address] [facility] [place] [address] PCP - Generalmily Medicine11/16/24
[2025-06-24 23:06] LABS: Hematocrit 35.1 % (36.0-48.0); Hemoglobin 12.2 g/dL (12.0-16.0); Immature Granulocytes Abs Auto 0.03 10^3/uL (0.00-0.03); Immature Granulocytes Pct Auto 0.5 % (0.0-0.5); Lymphocytes Absolute Auto 2.5 10^3/uL (1.2-3.8); Mean Corpuscular HGB Conc 34.8 g/dL (29.9-35.2); Mean Corpuscular Hemoglobin 28.4 pg (26.7-34.0); Mean Corpuscular Volume 81.6 fL (81.0-99.0); Platelet Count 242 10^3/uL (150-450); Red Blood Count 4.30 10^6/uL (4.20-5.40); White Blood Count 6.0 10^3/uL (4.0-11.0)
[2025-06-24 23:30] LABS: Anion Gap 13.1; Blood Urea Nitrogen 15.0 mg/dL (7.0-18.0); Calcium 8.7 mg/dL (8.5-10.1); Carbon Dioxide 24.1 mmol/L (21.0-32.0); Chloride 100 mmol/L (98-107); Estimated GFR (African America >60 (>=60 mL/min/1.73m^2); Estimated GFR (Non-African Ame >60 (>=60 mL/min/1.73m^2); NT Pro B Type Natriuretic Pept 252.0 pg/mL (<=450.0); Potassium 4.2 mmol/L (3.5-5.1); Sodium 133 mmol/L (136-145)
[2025-06-24 23:31] LABS: Glucose 604 mg/dL (74-106)
--- NOTE | 2025-06-24 23:38 | PC.NURSE ---
2319 Pt states that she had NIG SL x 2 at home. She has had some relief with this. Down to a 5 from a 10.
[2025-06-24] MEDS: 0.9 % SODIUM CHLORIDE 1,000 ML 1000 ML IV (23:50)
[2025-06-24] MEDS: INSULIN REGULAR, HUMAN (100 UNIT/ML) 10 ML MDV 20 UNIT SUBQ (23:50)
[2025-06-25] VITALS (14 sets, daily range): BP systolic 138–152; BP diastolic 86–118; PULSE 81–93; O2SAT 97–100
--- NOTE | 2025-06-25 00:18 | PC.NURSE ---
second troponin drawn and sent
--- NOTE | 2025-06-25 01:41 | PC.NURSE ---
[facility] crew here. Report to EMT-P. [place] [facility] [place] Staff states that receiving RN will call me back noah. Dietetics Director stated that EMS s here now. ER # given.
--- NOTE | 2025-06-25 01:50 | PC.NURSE ---
Report to RN at [facility].
== END 2025-06-25 02:03 | disposition short-term general hospital (02) ==
PROVIDERS: Emergency Provider Emergency Medicine; PCP Family Medicine
DX: I25.9 Chronic ischemic heart disease, unspecified (principal); Z79.82 Long term (current) use of aspirin; Z79.899 Other long term (current) drug therapy; I25.10 Atherosclerotic heart disease of native coronary artery without angina pectoris; Z95.5 Presence of coronary angioplasty implant and graft; E11.65 Type 2 diabetes mellitus with hyperglycemia; Z79.4 Long term (current) use of insulin; R07.9 Chest pain, unspecified
CPT/HCPCS: 36415; 71045; 80048; 83880; 84484; 85025; 93005; 96360; 99285; J1817